=== PATIENT | female | born 1945 | race Caucasian/White ===

== ENCOUNTER 2019-10-04 14:22 | Emergency (ER) | payer MEDICARE, SELFPAY ==
[2019-10-04] VITALS (8 sets, daily range): BP systolic 122–192; BP diastolic 57–73; PULSE 60–63; RESP 14–18; TEMP 36.5; O2SAT 91–100
--- NOTE | ~2019-10-04 | CT_ITS ---
EXAMINATION: CT brain wo con EXAM DATE: 10/04/2019 16:02 INDICATION: Syncope, dizziness. TECHNIQUE: Spiral CT of the head was performed without contrast. Axial, coronal and sagittal images were reviewed. The dose-length product (DLP) for this examination was 605.33 mGy-cm. The exposure w as tailored according to patient size, and iterative reconstruction (ASIR) was used as additional dos e reduction technique. Comparison is made to prior examination from 03/20/2019. FINDINGS: There is no acute intraparenchymal hemorrhage. No evidence of intraparenchymal brain mass lesion. No evidence of acute infarction. Please note that initial head CT has limited sensitivity f or small or acute infarctions. There is mild periventricular and subcortical hypodensity, nonspecific but probably related to small vessel ischemic disease. There is mild prominence of the sulci and v entricles related to cerebral atrophy. There is intracranial carotid arteriosclerosis. There are n o extra-axial collections. There is no mass effect or midline shift. Patient has had bilateral ocul ar lens surgery. Soft tissue is unremarkable. The visualized sinuses and mastoid air cells are well aerated. IMPRESSION: 1. No acute intracranial findings. 2. Chronic age related findings. Reviewed, dictated and finalized at location B. IUM LIQUOR MAKER
--- NOTE | ~2019-10-04 | XR_ITS ---
XR chest 1V portable 10/04/2019 15:28 Indication: Syncope Procedure: AP portable chest Comparison: 03/20/2019 Findings: Cardiomegaly. There is atherosclerosis. No focal air space disease, pulmonary edema, pleura l effusion or suspected pneumothorax. Impression: 1: No acute cardiopulmonary disease. Reviewed, dictated and finalized at location A. OMER SOLUTIONS COORDINATOR Impression: 1: No acute cardiopulmonary disease.
--- NOTE | 2019-10-04 14:43 | ECG_ITS ---
Measurements Intervals [place] Rate: 59 P: 61 [place]: 196 QRS: 39 QRSD: 105 T: 52 QT: 455 QTc: 451 Interpretive Statements SINUS BRADYCARDIA BORDERLINE ST ABNORMALITY- LATERAL LEADS BASELINE WANDER- AVL, AVF BORDERLINE ECG Electronically Signed On 10-04-2019 18:58:45 THERAPEUTIC RECREATION LEADER by Noman Gillis D.O.
--- NOTE | 2019-10-04 14:47 | ED.SYNCOPE ---
HPI - Syncope General Chief Complaint: Syncope Stated Complaint: ambulance Source: patient, family and EMS Mode of arrival: ambulatory Limitations: no limitations History of Present Illness HPI narrative: 73-year-old female presents with syncopal episode were was witnessed by her and members of the veterinary clinic that time where she was at that occurred earlier this afternoon apparently she was standing felt faint and sat down and slumped over according to her for 2 minutes, with some no loss of bowel or bladder function no seizure activity no tongue biting. Had a similar episode back in March, has a history of carotid artery stenosis and has been seeing a vascular surgeon at [facility], according to patient of vascular surgeons states that the carotid surgery would be of high risk. Currently there is no chest pain no fever chills no shortness of breath no abdominal pain and no headaches no blurry vision, patient states she is mildly nauseated with no vomiting no abdominal pain no diarrhea constipation. Patient also has a history of coronary artery disease hyperlipidemia, hypertension. MD complaint: loss of consciousness Onset (ago): minute(s) Duration of episode: 2 -: minutes(s) Prodromal symptoms: none and nausea/vomiting Witnessed: Yes - by Bystander Context: at rest Injuries sustained associated with event: none Current symptoms: nausea Related Data Home Medications Medication Instructions Recorded Confirmed aspirin 81 mg tablet,delayed 81 mg PO DAILY 07/26/19 10/04/19 release biotin 10,000 mcg capsule 10,000 mcg PO DAILY cap 07/26/19 10/04/19 cetirizine 10 mg tablet 5 mg PO DAILY PRN 07/26/19 10/04/19 indomethacin 25 mg capsule 25 mg PO TID PRN cap 07/26/19 10/04/19 Allergies Allergy/AdvReac Type Severity Reaction Status Date / Time naproxen Allergy Intermediate Hives Verified 08/17/19 15:46 NSAIDS (Non-Steroidal Allergy Intermediate hives Verified 08/17/19 15:46 Anti-Inflamma Penicillins Allergy Intermediate Hives Verified 08/17/19 15:46 indomethacin Allergy Unknown Nausea Verified 08/17/19 15:46 Sulfa (Sulfonamide Allergy Unknown Hives Verified 08/17/19 15:46 Antibiotics) Sulfonamides Allergy Intermediate Uncoded 08/17/19 15:46 Review of Systems Review of Systems: All systems reviewed & are unremarkable except as noted in HPI and below PMFSH Past Medical History Medical History Aortic valve regurgitation CAD (coronary artery disease) DM2 (diabetes mellitus, type 2) Hypercholesterolemia Hypertension Mitral valve regurgitation Surgical History Surgical History History of appendectomy Family History Family History Mother Heart disease Father Hypertension Other Cerebrovascular accident Family history of arthritis Family history of gout Family history of heart disease in male family member before age 55 Social History Social History Smoking status: Former smoker Tobacco type: cigarettes Additional smoking assessment comments: 30 pack-year history Alcohol intake: current Substance use: never Additional living arrangements comments: . 1 child. 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
[2019-10-04 14:52] LABS: Glucose Point of Care 117 (65-105)
[2019-10-04] MEDS: SODIUM CHLORIDE 0.9% IV 500 ML 999 ML IV CONT (14:55)
[2019-10-04 15:06] LABS: Basophils Absolute Auto 0.03 K/mm3 (0.00-0.10); Basophils Percent Auto 0.4 % (0.0-1.0); Eosinophils Absolute Auto 0.14 K/mm3 (0.02-0.50); Hematocrit 38.1 % (35.0-42.0); Hemoglobin 13.1 g/dL (11.7-13.8); Immature Granulocyte Absolute 0.02 K/mm3 (0.00-0.00); Immature Granulocyte Percent A 0.3 % (0.0-0.0); Lymphocytes Absolute Auto 1.72 K/mm3 (1.10-4.50); Lymphocytes Percent Auto 24.7 % (18.0-42.0); Mean Corpuscular HGB Conc 34.4 g/dL (32.0-36.0); Mean Corpuscular Hemoglobin 31.9 pg (27.0-31.0); Mean Corpuscular Volume 92.7 fL (78.0-102.0); Monocytes Absolute Auto 0.62 K/mm3 (0.10-0.90); Monocytes Percent Auto 8.9 % (2.0-11.0); Neutrophils Absolute Auto 4.4 K/mm3 (1.7-7.2); Neutrophils Percent Auto 63.7 % (50.0-70.0); Platelet Count Result 227 K/mm3 (150-420); Red Blood Count 4.11 M/mm3 (4.20-5.40); Red Cell Distribution Width 13.3 % (11.6-14.4)
[2019-10-04 15:23] LABS: Alanine Aminotransferase 27 U/L (14-59); Albumin Level 3.7 g/dL (3.4-5.0); Alkaline Phosphatase 71 U/L (46-116); Anion Gap 12.1 mmol/L (7-16); Aspartate Amino Transferase 17 U/L (15-37); Bilirubin,Total 0.3 mg/dL (0.00-1.00); Blood Urea Nitrogen 29 mg/dL (7-18); Calcium 9.2 mg/dL (8.5-10.1); Carbon Dioxide 28 mmol/L (21-32); Chloride 106 mmol/L (98-108); Estimated CRCL calculation 49 ml/min; Estimated Glomerular Filt Rate 51; Glucose 113 mg/dL (70-99); Magnesium 2.3 mg/dL (1.8-2.4); Osmolality Calculated 300 mOsm/kg (285-295); Potassium 4.1 mmol/L (3.5-5.1); Sodium 142 mmol/L (136-145); Total Protein 6.8 g/dL (6.4-8.2); Troponin I < 0.02 ng/mL (0.00-0.056)
[2019-10-04 15:26] LABS: Lactic Acid Reflex 1.1 mmol/L (0.4-2.0)
[2019-10-04 16:09] LABS: Add Urine Microscopic? NO; Appearance Urine Clear (Clear); Bilirubin Urine Negative (Negative); Blood Urine Negative (Negative); Color Urine Yellow (Yellow); Glucose Urine UA Negative (Negative); Ketones Urine Negative (Negative); Leukocyte Esterase Ur Negative LEU/UL (Negative); Nitrate Urine Negative (Negative); Protein Urine Negative (Negative); Specific Grav Ur 1.025 (1.010-1.020); Urobilinogen Urine 0.2 mg/dL (0.2-1.0)
[2019-10-04] MEDS: AMLODIPINE BESYLATE 5 MG TABLET PO (16:52)
== END 2019-10-04 17:03 | disposition home or self-care (01) ==
PROVIDERS: Emergency Provider Emergency Medicine; PCP Family Medicine
DX: R55 Syncope and collapse (principal); I25.10 Atherosclerotic heart disease of native coronary artery without angina pectoris; E11.9 Type 2 diabetes mellitus without complications; E78.00 Pure hypercholesterolemia, unspecified; I10 Essential (primary) hypertension; Z87.891 Personal history of nicotine dependence
CPT/HCPCS: 36415; 70450; 71045; 80053; 81003; 82948; 83605; 83735; 83880; 84484; 85025; 93005; 96360; 99283; 99284; A9270; J7040

== ENCOUNTER 2019-10-10 14:06 | Emergency (ER) | payer MEDICARE, SELFPAY ==
[2019-10-10 14:22] VITALS: BP 156/87; PULSE 60; RESP 20; TEMP 36.5; O2SAT 97
--- NOTE | 2019-10-10 14:48 | ECG_ITS ---
Measurements Intervals [place] Rate: 60 P: 63 IN: 194 QRS: 41 QRSD: 105 T: 39 QT: 434 QTc: 434 Interpretive Statements SINUS RHYTHM BORDERLINE ST ABNORMALITY- INF/LAT LEADS BORDERLINE ECG Electronically Signed On 10-10-2019 15:25:48 INSURANCE APPRAISER by Noman Gillis D.O.
--- NOTE | 2019-10-10 15:02 | ED.GENADULT ---
HPI - General Adult General Chief complaint: Dizziness Stated complaint: ambulance Time Seen by Provider: 10/10/19 14:15 Source: patient, family and EMS Mode of arrival: EMS Limitations: clinical condition History of Present Illness HPI narrative: Suma is a very pleasant 73-year-old female patient. She presents to the emergency room by ambulance from of home. 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 She does not call it dizziness. She calls it just a strange feeling, just lightheaded. She did not pass out but she laid down on the floor. She apparently laid there for about 45 minutes. The then called EMS and she was brought here. She denies any headache. There is no feeling of the room spinning around. She had been seen here on October 04, 2019 for a syncopal episode. At that time she had a CT scan Off the head done which was negative for any acute problems. she had a chest x-ray which did not show any acute cardiopulmonary disease. An electrocardiogram did not show any acute changes. Done has history of hypertension. She is on ramipril 10 mg daily. She is also on hydrochlorothiazide 25 mg daily. She is on aspirin 81 mg daily and Plavix 75 med. She has history of type 2 diabetes mellitus hypercholesterolemia, hypertension, mitral valve regurgitation and coronary artery disease. She states that she sees Dr. Antoine, commissary helper at [facility] this is her 3rd similar episode of lightheadedness. The 1st 1 was in March of last year. She had a one-month Holter evaluation. Apparently nothing was found on the Holter. She also saw a neurologist at [facility]. She states that she has an appointment to see the neurologist this week Thursday . She has an appointment to see the commissary helper Dr. Antoine tomorrow. She also states that she has history of vascular problems including both carotid arteries which she states are 65% narrowed. She also has no palpable pulse in the right radial artery and from her history, it is possible that she may have some subclavian problems also. She has seen a vascular surgeon at [facility]. She has had carotid ultrasounds at [place]. She apparently also has had an echocardiogram, not here. We looked red [place] records also and could not find any report of an echocardiogram. She says that before the 2nd episode of dizziness, she had called Dr. Giron, vascular surgeon and was told to call his office and make an appointment to see him in 6 weeks. She also tells me that about 2 or 3 years ago, she had coronary angiogram done at [facility]. While they were doing it, she had a stroke on the table. She did recover from the stroke with no significant residuals. She also states that no significant coronary artery disease was noted. However, on the chart there is a diagnosis of CAD. Suma is a former smoker. She quit 15 years ago. Prior to this she smoked 1 pack a day for 25 years. Suma denies any headache, chest pain, shortness of breath, abdominal pain, nausea or vomiting. She has no leg edema. There has been no significant change in her weight over the past 1 year. After about 30 minutes in the emergency room, Suma is feeling spontaneously better. She is not lightheaded anymore. MD complaint: lightheadedness Onset (ago): hour(s) ( 2 hours ago) Location: head ( see HPI narrative) Exacerbating factors: none Associated symptoms: other ( Please see HPI narrative) Treatments prior to arrival: none Related Data Home Medications Medication Instructions Recorded Confirmed aspirin 81 mg tablet,delayed 81 mg PO DAILY 07/26/19 10/10/19 release biotin 10,000 mcg capsule 10,000 mcg PO DAILY cap 07/26/19 10/10/19 cetirizine 10 mg tablet 5 mg PO DAILY PRN 07/26/19 10/10/19 indomethacin 25 mg capsule 25 mg PO TID PRN cap 07/26/19 10/10/19 Allergies Allergy/AdvReac Type Severity Reaction Status Date / Time naproxen Allergy Int
--- NOTE | 2019-10-10 15:03 | PC.NURSE ---
Call placed to Dr Zachary Giron, vascular surgeon, . Spoke with Dr Giron's nurse who provided exchange number and name of solutions specialist physician to contact.
[2019-10-10 15:07] LABS: Basophils Absolute Auto 0.02 K/mm3 (0.00-0.10); Basophils Percent Auto 0.3 % (0.0-1.0); Eosinophils Absolute Auto 0.06 K/mm3 (0.02-0.50); Eosinophils Percent Auto 0.8 % (1.0-6.0); Hematocrit 39.1 % (35.0-42.0); Hemoglobin 13.4 g/dL (11.7-13.8); Immature Granulocyte Absolute 0.03 K/mm3 (0.00-0.00); Immature Granulocyte Percent A 0.4 % (0.0-0.0); Lymphocytes Absolute Auto 1.44 K/mm3 (1.10-4.50); Lymphocytes Percent Auto 20.2 % (18.0-42.0); Mean Corpuscular HGB Conc 34.3 g/dL (32.0-36.0); Mean Corpuscular Volume 93.3 fL (78.0-102.0); Mean Platelet Volume 9.3 fl (9.2-11.8); Monocytes Absolute Auto 0.46 K/mm3 (0.10-0.90); Monocytes Percent Auto 6.5 % (2.0-11.0); Neutrophils Absolute Auto 5.1 K/mm3 (1.7-7.2); Neutrophils Percent Auto 71.8 % (50.0-70.0); Platelet Count Result 216 K/mm3 (150-420); Red Blood Count 4.19 M/mm3 (4.20-5.40); Red Cell Distribution Width 13.4 % (11.6-14.4); White Blood Count 7.1 K/mm3 (4.8-10.8)
--- NOTE | 2019-10-10 15:07 | PC.NURSE ---
Call placed to Dr Giron's exchange at [phone]. Dr Marc is the staff radiation therapist physician who will be calling back.
[2019-10-10 15:18] VITALS: BP 157/56; PULSE 61; RESP 20; O2SAT 98
[2019-10-10 15:30] LABS: Alanine Aminotransferase 25 U/L (14-59); Albumin Level 3.9 g/dL (3.4-5.0); Alkaline Phosphatase 78 U/L (46-116); Anion Gap 16.1 mmol/L (7-16); Aspartate Amino Transferase 17 U/L (15-37); Bilirubin,Total 0.4 mg/dL (0.00-1.00); Blood Urea Nitrogen 27 mg/dL (7-18); Calcium 9.4 mg/dL (8.5-10.1); Carbon Dioxide 26 mmol/L (21-32); Chloride 103 mmol/L (98-108); Creatine Kinase 64 U/L (26-192); Estimated CRCL calculation 48 ml/min; Estimated Glomerular Filt Rate 47; Glucose 187 mg/dL (70-99); Osmolality Calculated 302 mOsm/kg (285-295); Potassium 4.1 mmol/L (3.5-5.1); Sodium 141 mmol/L (136-145); Total Protein 6.9 g/dL (6.4-8.2)
--- NOTE | 2019-10-10 15:30 | PC.NURSE ---
Dr Marc returned call at this time.
[2019-10-10 15:32] LABS: Troponin I < 0.02 ng/mL (0.00-0.056)
--- NOTE | 2019-10-10 15:35 | PC.NURSE ---
Unable to palpate R radial pulse and R brachial pulse. Both R radial and R brachial pulses detected by doppler.
--- NOTE | 2019-10-10 15:40 | PC.NURSE ---
Dr Venegas spoke with Dr Galvin, ERP at [facility]. Pt accepted at this time as ER to ER transfer.
--- NOTE | 2019-10-10 15:42 | PC.NURSE ---
Pt made aware of plan discussed by Dr Venegas and Dr Marc, vasular surgeon, for transfer to [facility] ER for further eval. Pt states she does not want to go to [place] because she does not want surgery at this time. Dr Venegas made aware.
--- NOTE | 2019-10-10 15:47 | PC.NURSE ---
Dr Venegas at bedside.
[2019-10-10 16:00] VITALS: BP 192/66; PULSE 60; RESP 20; O2SAT 96
--- NOTE | 2019-10-10 16:10 | PC.NURSE ---
[facility] contacted for transport of pt to [facility]. Unable to accept transport at this time. Will contact another EMS service.
--- NOTE | 2019-10-10 16:24 | PC.NURSE ---
[facility] called for transport to [facility].
[2019-10-10 16:46] VITALS: BP 183/77; PULSE 61; RESP 20; O2SAT 98
== END 2019-10-10 17:00 | disposition short-term general hospital (02) ==
PROVIDERS: Emergency Provider Surgery
DX: R42 Dizziness and giddiness (principal); I77.89 Other specified disorders of arteries and arterioles; I73.9 Peripheral vascular disease, unspecified; I10 Essential (primary) hypertension; I25.10 Atherosclerotic heart disease of native coronary artery without angina pectoris; Z86.73 Personal history of transient ischemic attack (TIA), and cerebral infarction without residual deficits; E11.9 Type 2 diabetes mellitus without complications; E78.00 Pure hypercholesterolemia, unspecified; Z87.891 Personal history of nicotine dependence
CPT/HCPCS: 36415; 80053; 82550; 82553; 84484; 85025; 93005; 99285

== ENCOUNTER 2019-10-17 14:33 | Emergency (ER) | payer MEDICARE, SELFPAY ==
[2019-10-17] VITALS (9 sets, daily range): BP systolic 133–195; BP diastolic 55–70; PULSE 48–74; RESP 11–16; TEMP 36.1–36.6; O2SAT 92–100
--- NOTE | 2019-10-17 15:26 | ECG_ITS ---
Measurements Intervals [place] Rate: 49 P: 55 [place]: 182 QRS: 23 QRSD: 106 T: 47 QT: 511 QTc: 465 Interpretive Statements SINUS BRADYCARDIA BORDERLINE ST ABNORMALITY- INF/LAT LEADS PROLONGED QT INTERVAL ABNORMAL ECG Electronically Signed On 10-17-2019 15:46:08 POLICE JUSTICE by Noman Gillis D.O.
--- NOTE | 2019-10-17 15:38 | ED.SYNCOPE ---
HPI - Syncope General Chief Complaint: Syncope Stated Complaint: AMB Time Seen by Provider: 10/17/19 15:05 Source: patient and other (Dr Oropeza) Mode of arrival: EMS History of Present Illness HPI narrative: Suma is a 73-year-old female patient. She was at the office of . she apparently passed out while she was being examined. She was laid on the floor and after a few minutes she became responsive and started talking. She was then transferred to the emergency room by ambulance from the office. Suma has had this problem for quite some time. Her vascular surgeon is at [facility]. She was recently sent to [facility]. She has a right subclavian steal syndrome. Surgery is being planned for this but apparently patient has been postponing this. She denies any chest pain. She denies any shortness of breath. When she came to the emergency room, she was talking to us. Her vital signs were stable. Her blood pressure is 174/66 mmHg. Her pulse is 48 per minute. MD complaint: loss of consciousness and other ( syncope) -: minutes(s) ( 2 minutes) Description of event: other ( passed out and apparently start breathing for 30 to 40 seconds) Prodromal symptoms: none Witnessed: Yes - by Other ( was in a doctor's office, being examined) Context: at rest and other ( see HPI narrative) Injuries sustained associated with event: none Current symptoms: other ( denies chest pain. Denies shortness of breath. Denies nausea or vomiting. No abdominal pain.) History: previous syncopal episode and other ( Vascular problems, see HPI narrative) Treatments prior to arrival: none Related Data Home Medications Medication Instructions Recorded Confirmed aspirin 81 mg tablet,delayed 81 mg PO DAILY 07/26/19 10/17/19 release biotin 10,000 mcg capsule 10,000 mcg PO DAILY cap 07/26/19 10/17/19 cetirizine 10 mg tablet 5 mg PO DAILY PRN 07/26/19 10/17/19 indomethacin 25 mg capsule 25 mg PO TID PRN cap 07/26/19 10/17/19 atenolol 50 mg tablet 50 mg PO DAILY tablet 10/17/19 10/17/19 cetirizine 10 mg capsule 10 mg PO DAILY cap 10/17/19 10/17/19 clopidogrel 75 mg tablet 75 mg PO DAILY 10/17/19 10/17/19 diphenhydramine 25 1 tablet PO Q6H 10/17/19 10/17/19 mg-acetaminophen 500 mg tablet doxycycline hyclate 50 mg capsule 50 mg PO BID cap 10/17/19 10/17/19 ondansetron HCl 4 mg tablet 4 mg PO Q8H 10/17/19 10/17/19 sennosides 8.6 mg capsule 8.6 mg PO BID 10/17/19 10/17/19 Allergies Allergy/AdvReac Type Severity Reaction Status Date / Time coffee (Coffea arabica) Allergy Severe syncope Verified 10/17/19 13:56 naproxen Allergy Intermediate Hives Verified 10/17/19 13:34 NSAIDS (Non-Steroidal Allergy Intermediate hives Verified 10/17/19 13:34 Anti-Inflamma Penicillins Allergy Intermediate Hives Verified 10/17/19 13:34 indomethacin Allergy Unknown Nausea Verified 10/17/19 13:34 Sulfa (Sulfonamide Allergy Unknown Hives Verified 10/17/19 13:34 Antibiotics) Sulfonamides Allergy Intermediate unknown Uncoded 10/17/19 13:34 Review of Systems Review of Systems: All systems reviewed & are unremarkable except as noted in HPI and below Constitutional: Constitutional: Reports as per HPI, Reports no additional constitutional complaints, Denies chills and Denies fever(s) Eyes: Eyes: Reports as per HPI and Reports no additional eye complaints ENT: Reports system reviewed and no additional complaints, except as documented, Denies dysphagia, Denies vertigo, Reports dizziness and Denies sore throat Cardiovascular: Cardiovascular: Reports as per HPI, Reports no additional cardiovascular complaints, Denies chest pain and Denies radiating jaw, neck or arm pain Respiratory: Respiratory: Reports as per HPI, Reports no additional respiratory complaints, Denies dyspnea and Denies wheezing Gastrointestinal: Gastrointestinal: Reports as per HPI, Reports no additional gastrointestinal complaints, Denies abdominal pain, Denies nausea and Denies v
--- NOTE | 2019-10-17 15:47 | PC.NURSE ---
PTS VASCULAR SURGEON, DR. TRUJILLO, PAGED AT [phone] PER ERP REQUEST. AWAITING CALL BACK
[2019-10-17 16:10] LABS: Basophils Absolute Auto 0.02 K/mm3 (0.00-0.10); Basophils Percent Auto 0.3 % (0.0-1.0); Eosinophils Absolute Auto 0.07 K/mm3 (0.02-0.50); Eosinophils Percent Auto 1.2 % (1.0-6.0); Hematocrit 37.6 % (35.0-42.0); Hemoglobin 12.9 g/dL (11.7-13.8); Immature Granulocyte Absolute 0.01 K/mm3 (0.00-0.00); Immature Granulocyte Percent A 0.2 % (0.0-0.0); Lymphocytes Absolute Auto 1.53 K/mm3 (1.10-4.50); Lymphocytes Percent Auto 26.2 % (18.0-42.0); Mean Corpuscular HGB Conc 34.3 g/dL (32.0-36.0); Mean Corpuscular Hemoglobin 31.5 pg (27.0-31.0); Mean Corpuscular Volume 91.9 fL (78.0-102.0); Monocytes Absolute Auto 0.55 K/mm3 (0.10-0.90); Monocytes Percent Auto 9.4 % (2.0-11.0); Neutrophils Absolute Auto 3.7 K/mm3 (1.7-7.2); Neutrophils Percent Auto 62.7 % (50.0-70.0); Platelet Count Result 224 K/mm3 (150-420); Red Blood Count 4.09 M/mm3 (4.20-5.40); Red Cell Distribution Width 13.4 % (11.6-14.4); White Blood Count 5.8 K/mm3 (4.8-10.8)
[2019-10-17 16:25] LABS: BNP 43.2 pg/mL (0-100)
--- NOTE | 2019-10-17 16:25 | PC.NURSE ---
DR. TRUJILLO PAGED AGAIN. AWAITING CALL BACK.
[2019-10-17 16:32] LABS: Alanine Aminotransferase 28 U/L (14-59); Albumin Level 3.8 g/dL (3.4-5.0); Alkaline Phosphatase 65 U/L (46-116); Anion Gap 11.6 mmol/L (7-16); Aspartate Amino Transferase 21 U/L (15-37); Bilirubin,Total 0.4 mg/dL (0.00-1.00); Blood Urea Nitrogen 19 mg/dL (7-18); Calcium 8.8 mg/dL (8.5-10.1); Carbon Dioxide 28 mmol/L (21-32); Chloride 102 mmol/L (98-108); Creatine Kinase 72 U/L (26-192); Estimated CRCL calculation 55 ml/min; Estimated Glomerular Filt Rate 55; Glucose 144 mg/dL (70-99); Magnesium 2.4 mg/dL (1.8-2.4); Osmolality Calculated 291 mOsm/kg (285-295); Potassium 3.6 mmol/L (3.5-5.1); Sodium 138 mmol/L (136-145); Thyroid Stimulating Hormone 2.52 uIU/mL (0.36-3.74); Total Protein 7.1 g/dL (6.4-8.2)
[2019-10-17 16:33] LABS: Troponin I < 0.02 ng/mL (0.00-0.056)
[2019-10-17 16:47] LABS: Partial Thromboplastin Time 25.9 SEC (22.3-31.6); Prothrombin Time 10.5 Seconds (9.64-11.0)
--- NOTE | 2019-10-17 17:01 | PC.NURSE ---
RN SPOKE WITH JOB COOMBS RN FROM [facility] AT THIS TIME
--- NOTE | 2019-10-17 18:01 | PC.NURSE ---
RN CALLED [facility] TRANSFER LINE FOR UPDATE ON BED STATUS, RN SPOKE WITH DEBBY WHO STATES IT WILL BE SEVERAL MORE HOURS BEFORE A BED IS PROVIDED. ERP NOTIFIED. ER HOLD ORDERS PROVIDED. REQUESTED AN ER HOLD BED FROM ELSA ELLSWORTH AT 1807, ROOM 206 PROVIDED.
--- NOTE | 2019-10-17 18:24 | PC.NURSE ---
TELEPHONE REPORT PROVIDED TO ELSA, ELECTRICAL/INSTRUMENT TECHNICIAN, FOR ER HOLD STATUS. ELSA AGREES THAT ALL PROPER ORDERS HAVE BEEN ENTERED BY ERP. ELSA REQUESTING RN WAIT 10 MINUTES BEFORE BRINGING THE PATIENT UP TO ROOM 206 TO ALLOW HER TO GET THE ROOM PREPPED.
--- NOTE | 2019-10-17 18:43 | PC.NURSE ---
PT TAKEN UP TO ROOM 206 BY WHEELCHAIR AT [id number]
[2019-10-17] MEDS: ACETAMINOPHEN 500 MG TABLET 1000 MG PO (21:14)
[2019-10-17] MEDS: buPROPion HCL XL (24 HR) 150 MG TABCR PO (21:41)
--- NOTE | 2019-10-17 22:30 | PC.NURSE ---
Bed available at [facility] for patient. Patient and her hsuband aware. Report called to [place] at [facility]. Dr. Dietz will be accepting patient. [facility] notified for tranfer.
--- NOTE | 2019-10-17 22:53 | PC.NURSE ---
Patient transported by [facility] to [place]. senior occupational therapist time at [id number]
== END 2019-10-17 22:46 | disposition short-term general hospital (02) ==
PROVIDERS: Emergency Provider Surgery; PCP Family Medicine
DX: G45.8 Other transient cerebral ischemic attacks and related syndromes (principal); R55 Syncope and collapse; I77.9 Disorder of arteries and arterioles, unspecified; Z87.891 Personal history of nicotine dependence; I25.10 Atherosclerotic heart disease of native coronary artery without angina pectoris; E11.9 Type 2 diabetes mellitus without complications; E78.00 Pure hypercholesterolemia, unspecified; I10 Essential (primary) hypertension
CPT/HCPCS: 36415; 80053; 82550; 82553; 83735; 83880; 84443; 84484; 85025; 85610; 85730; 93005; 99285; A9270

== ENCOUNTER 2019-11-26 11:50 | Emergency (ER) | payer MEDICARE, SELFPAY ==
[2019-11-26 12:00] VITALS: BP 138/70; PULSE 75; RESP 20; TEMP 36.7; O2SAT 99
[2019-11-26 12:09] LABS: Add Urine Microscopic? YES; Appearance Urine Sl Cloudy (Clear); Bilirubin Urine Negative (Negative); Blood Urine 2+ (Negative); Color Urine Yellow (Yellow); Glucose Urine UA Negative (Negative); Ketones Urine Negative (Negative); Leukocyte Esterase Ur 2+ LEU/UL (Negative); Nitrate Urine Negative (Negative); Protein Urine Negative (Negative); Urobilinogen Urine 0.2 mg/dL (0.2-1.0); pH Urine 6.5 (5.0-8.0)
[2019-11-26] MEDS: SODIUM CHLORIDE 0.9% IV 1,000 ML 999 ML IV CONT (12:14)
[2019-11-26 12:15] LABS: Bacteria Urine 1+ /hpf; Squamous Epithelial Cell Urine Few /hpf (Few); WBC Urine 21-30 /hpf (0-3)
[2019-11-26 12:44] LABS: Basophils Absolute Auto 0.02 K/mm3 (0.00-0.10); Basophils Percent Auto 0.3 % (0.0-1.0); Eosinophils Absolute Auto 0.06 K/mm3 (0.02-0.50); Hematocrit 30.4 % (35.0-42.0); Hemoglobin 9.7 g/dL (11.7-13.8); Immature Granulocyte Absolute 0.02 K/mm3 (0.00-0.00); Immature Granulocyte Percent A 0.3 % (0.0-0.0); Lymphocytes Absolute Auto 1.28 K/mm3 (1.10-4.50); Lymphocytes Percent Auto 21.5 % (18.0-42.0); Mean Corpuscular HGB Conc 31.9 g/dL (32.0-36.0); Mean Corpuscular Hemoglobin 30.1 pg (27.0-31.0); Mean Corpuscular Volume 94.4 fL (78.0-102.0); Mean Platelet Volume 8.9 fl (9.2-11.8); Monocytes Absolute Auto 0.54 K/mm3 (0.10-0.90); Monocytes Percent Auto 9.1 % (2.0-11.0); Neutrophils Percent Auto 67.8 % (50.0-70.0); Platelet Count Result 317 K/mm3 (150-420); Red Blood Count 3.22 M/mm3 (4.20-5.40); Red Cell Distribution Width 14.2 % (11.6-14.4)
[2019-11-26 13:00] LABS: Alanine Aminotransferase 11 U/L (14-59); Albumin Level 2.8 g/dL (3.4-5.0); Alkaline Phosphatase 61 U/L (46-116); Anion Gap 13.4 mmol/L (7-16); Aspartate Amino Transferase 11 U/L (15-37); Bilirubin,Total 0.2 mg/dL (0.00-1.00); Blood Urea Nitrogen 20 mg/dL (7-18); Calcium 8.7 mg/dL (8.5-10.1); Carbon Dioxide 26 mmol/L (21-32); Chloride 106 mmol/L (98-108); Estimated Glomerular Filt Rate 60; Glucose 95 mg/dL (70-99); Lipase 199 U/L (73-393); Osmolality Calculated 296 mOsm/kg (285-295); Potassium 3.4 mmol/L (3.5-5.1); Sodium 142 mmol/L (136-145); Total Protein 5.8 g/dL (6.4-8.2)
--- NOTE | 2019-11-26 13:05 | ED.GENADULT ---
HPI - General Adult General Chief complaint: Urogenital-Female Stated complaint: pain when urinating, urinating frequently History of Present Illness HPI narrative: Suma is a 73-year-old woman with a complex past medical history that presented to the emergency department with dysuria, urinary frequency and low back pain. She reports that starting this morning she had pain with urination, she is going more frequently and had low back pain that was worse than usual. She also admits to chills and nausea but denies fevers, vomiting, constipation, chest pain shortness of lightheadedness. Related Data Home Medications Medication Instructions Recorded Confirmed aspirin 81 mg tablet,delayed 81 mg PO DAILY 07/26/19 11/26/19 release biotin 10,000 mcg capsule 10,000 mcg PO DAILY cap 07/26/19 11/26/19 indomethacin 25 mg capsule 25 mg PO TID PRN cap 07/26/19 11/26/19 cetirizine 10 mg capsule 10 mg PO DAILY cap 10/17/19 11/26/19 diphenhydramine 25 1 tablet PO Q6H 10/17/19 11/26/19 mg-acetaminophen 500 mg tablet sennosides 8.6 mg capsule 8.6 mg PO BID 10/17/19 11/26/19 acetaminophen 500 mg capsule 1,000 mg PO Q6H PRN cap 11/11/19 11/26/19 amlodipine 10 mg tablet 10 mg PO DAILY 11/11/19 11/26/19 bisacodyl 10 mg rectal suppository 10 mg RECTAL DAILY PRN 11/11/19 11/26/19 carvedilol 25 mg tablet 25 mg PO Q12H 11/11/19 11/26/19 lisinopril 10 mg tablet 10 mg PO DAILY 11/11/19 11/26/19 oxycodone 5 mg tablet 5 mg PO Q4H PRN 11/11/19 11/26/19 polyethylene glycol 3350 17 17 gm PO DAILY 11/11/19 11/26/19 gram/dose oral powder Allergies Allergy/AdvReac Type Severity Reaction Status Date / Time coffee (Coffea arabica) Allergy Severe syncope Verified 11/11/19 06:59 naproxen Allergy Intermediate Hives Verified 11/11/19 06:59 NSAIDS (Non-Steroidal Allergy Intermediate hives Verified 11/11/19 06:59 Anti-Inflamma Penicillins Allergy Intermediate Hives Verified 11/11/19 06:59 indomethacin Allergy Unknown Nausea Verified 11/11/19 06:59 Sulfa (Sulfonamide Allergy Unknown Hives Verified 11/11/19 06:59 Antibiotics) Sulfonamides Allergy Intermediate unknown Uncoded 10/17/19 13:34 Review of Systems Constitutional: Constitutional: Reports as per HPI Eyes: Eyes: Reports no additional eye complaints ENT: Reports system reviewed and no additional complaints, except as documented Respiratory: Respiratory: Reports no additional respiratory complaints Gastrointestinal: Gastrointestinal: Reports no additional gastrointestinal complaints Genitourinary: Genitourinary: Reports as per HPI Musculoskeletal: Musculoskeletal: Reports no additional musculoskeletal complaints Integumentary/Breasts: Skin/Breast: Reports system reviewed and no additional complaints, except as docu Neurologic: Reports system reviewed and no additional complaints, except as documented Psychiatric: Psychiatric: Reports no additional psychiatric complaints Endocrine: Endocrine: Reports no additional endocrine complaints Hematologic/Lymphatic: Hematologic/Lymphatic: Reports no additional hematologic/lymphatic complaints Allergic/Immunologic: Allergic/Immunologic: Reports no additional allergic/immunologic complaints [facility] Past Medical History Medical History Aortic valve regurgitation CAD (coronary artery disease) Carotid disease, bilateral CVA (cerebral vascular accident) DM2 (diabetes mellitus, type 2) Hypercholesterolemia Hypertension Mitral valve regurgitation Peripheral vascular disease Surgical History Surgical History History of appendectomy History of carpal tunnel surgery History of cataract surgery Family History Family History Mother Heart disease Father Hypertension Other Cerebrovascular accident Family history of arthritis Family history of gout
[2019-11-26 13:21] VITALS: BP 124/55; PULSE 62; O2SAT 99
== END 2019-11-26 13:22 | disposition home or self-care (01) ==
PROVIDERS: Emergency Provider Family Medicine; PCP Family Medicine
DX: N39.0 Urinary tract infection, site not specified (principal); I25.10 Atherosclerotic heart disease of native coronary artery without angina pectoris; E11.9 Type 2 diabetes mellitus without complications; E78.00 Pure hypercholesterolemia, unspecified; I10 Essential (primary) hypertension; Z87.891 Personal history of nicotine dependence
CPT/HCPCS: 36415; 80053; 81001; 83690; 85025; 87077; 87086; 87088; 87186; 96365; 99283; 99284; J0696; J7030

== ENCOUNTER 2019-11-29 16:05 | Emergency (ER) | payer MEDICARE, SELFPAY ==
[2019-11-29] VITALS (16 sets, daily range): BP systolic 126–151; BP diastolic 51–74; PULSE 68–91; RESP 14–20; TEMP 36.6–36.8; O2SAT 97–100
--- NOTE | ~2019-11-29 | CT_ITS ---
EXAMINATION: CT abdomen pelvis w con DATE: 11/29/2019 18:24 INDICATION: Abdominal pain. TECHNIQUE: Computed tomography (CT) of the abdomen and pelvis was performed with 100 mL Omnipaque 350 intravenous contrast. Automated exposure control and iterative reconstruction technique were employe d. The dose-length product was 865.75 mGy-cm. COMPARISON: CT abdomen and pelvis 07/31/2009 FINDINGS: The visualized portions of the lung bases demonstrate mild atelectasis. No pleural effusion . Cardiomegaly is noted. There are coronary artery calcifications. No pericardial effusion. Median st ernotomy wires are noted. There is a 6 mm cyst in the liver. The gallbladder, spleen, pancreas, adren al glands, and right kidney are normal. There is a 9 mm cyst in left kidney. There is cortical thinni ng of left kidney. There is a 4 mm stone in left kidney. There is liquid stool in the colon suggestiv e of diarrhea. There is diverticulosis of the colon without evidence of diverticulitis. In the termin al ileum, there is wall thickening with small lumen caliber spanning 10 cm, new from 07/31/09. The sm all bowel is fluid-filled and distended proximal to this area, consistent with partial small bowel ob struction. There are changes of appendectomy. There is a small sliding hernia. There are no pathologi jagjit enlarged lymph nodes. There is trace ascites. There is calcified atherosclerosis of the aorta a nd many of the other arteries. There is moderate stenosis of the bilateral renal artery origins. Ther e is severe stenosis of proximal left superficial femoral artery. There is severe lumbar spondylosis and moderate thoracic spondylosis. IMPRESSION: 1. Terminal ileitis with partial small bowel obstruction. The differential diagnosis includes infecti on and Crohn disease. Reviewed, dictated and finalized at location A. IMPRESSION: 1. Terminal ileitis with partial small bowel obstruction. The differential diag nosis includes infection and Crohn disease.
--- NOTE | 2019-11-29 16:15 | ED.ABDPAIN ---
HPI - Abdominal Pain General Chief Complaint: Abdominal Pain <Hudson Gomez DO - Last Filed: 11/30/19 18:05> Stated Complaint: possible bowel obstruction <Hudson Gomez DO - Last Filed: 11/30/19 18:05> Time Seen by Provider: 11/29/19 16:13 <Hudson Gomez DO - Last Filed: 11/30/19 18:05> Source: patient <Hudson Gomez DO - Last Filed: 11/30/19 18:05> Mode of arrival: ambulatory <Hudson Gomez - Last Filed: 11/30/19 18:05> Limitations: no limitations <Hudson Gomez - Last Filed: 11/30/19 18:05> History of Present Illness HPI narrative: A 73 y/o female presents to the ED with c/o diffuse ABD pain. Pt states that the ABD pain started 1.5 weeks ago in her lower ABD, but is now painful all over. She notes that the ABD pain is constant, and is alleviated with Oxycodone. Pt reports ABD bloating, N/V, and constipation, but denies fever. Her last BM was on 11/26/19 and she had 2 episodes of emesis today. She is currently on Keflex for a UTI. <Hudson Gomez DO - Last Filed: 11/30/19 18:05> MD elicited complaint: abdominal pain (diffuse) <Hudson Gomez DO - Last Filed: 11/30/19 18:05> Onset (ago): week(s) (1.5) <Hudson Gomez DO - Last Filed: 11/30/19 18:05> Pain Consistency: constant <Hudson Gomez DO - Last Filed: 11/30/19 18:05> Location: diffuse <Hudson Gomez DO - Last Filed: 11/30/19 18:05> Relieving factors: medication (Oxycodone) <Hudson Gomez DO - Last Filed: 11/30/19 18:05> Associated symptoms: nausea, vomiting, constipation and other (ABD bloating) <Hudson Gomez DO - Last Filed: 11/30/19 18:05> Related Data Home Medications: Home Medications Medication Instructions Recorded Confirmed cetirizine 10 mg capsule 10 mg PO DAILY cap 10/17/19 11/26/19 sennosides 8.6 mg capsule 8.6 mg PO BID 10/17/19 11/26/19 acetaminophen 500 mg capsule 1,000 mg PO Q6H PRN cap 11/11/19 11/26/19 bisacodyl 10 mg rectal suppository 10 mg RECTAL DAILY PRN 11/11/19 11/26/19 polyethylene glycol 3350 17 17 gm PO DAILY 11/11/19 11/26/19 gram/dose oral powder doxycycline monohydrate 50 mg PO BID 11/29/19 ondansetron HCl 4 mg PO Q8H PRN 11/29/19 oxycodone 5 mg PO Q4H PRN 11/29/19 <Hudson Gomez DO - Last Filed: 11/30/19 18:05> Allergies/Adverse Reactions: Allergies Allergy/AdvReac Type Severity Reaction Status Date / Time coffee (Coffea arabica) Allergy Severe syncope Verified 11/29/19 13:32 naproxen Allergy Intermediate Hives Verified 11/29/19 13:32 NSAIDS (Non-Steroidal Allergy Intermediate hives Verified 11/29/19 13:32 Anti-Inflamma Penicillins Allergy Intermediate Hives Verified 11/29/19 13:32 indomethacin Allergy Unknown Nausea Verified 11/29/19 13:32 Sulfa (Sulfonamide Allergy Unknown Hives Verified 11/29/19 13:32 Antibiotics) Sulfonamides Allergy Intermediate unknown Uncoded 10/17/19 13:34 <Hudson Gomez DO - Last Filed: 11/30/19 18:05> Review of Systems Review of Systems: All systems reviewed & are unremarkable except as noted in HPI and below <Hudson Gomez DO - Last Filed: 11/30/19 18:05> Constitutional: Constitutional: Denies fever(s) <DO Rajan Pinon Last Filed: 11/30/19 18:05> Gastrointestinal: Gastrointestinal: Reports abdominal pain (diffuse), Reports bloating, Reports constipation, Reports nausea and Reports vomiting <DO Rajan Pinon Last Filed: 11/30/19 18:05> PMFSH Past Medical History Medical History: Medical History (Updated 11/30/19 @ 00:00 by Background Daemon) Aortic valve regurgitation Arthritis CAD (coronary artery disease) Carotid disease, bilateral Chronic back pain CVA (cerebral vascular accident) DDD (degenerative disc disease) Depression DM2 (diabetes mellitus, type 2) Hypercholesterolemia Hypertension Mitral valve regurgitation Osteoporosis Peripheral vascular disease Peripheral vascular
[2019-11-29] MEDS: SODIUM CHLORIDE 0.9% IV 1,000 ML 999 ML IV CONT (16:33)
[2019-11-29 16:53] LABS: Add Urine Microscopic? YES; Appearance Urine Cloudy (Clear); Bilirubin Urine Negative (Negative); Blood Urine Negative (Negative); Color Urine Amber (Yellow); Glucose Urine UA Negative (Negative); Hyaline Casts Urine 15-19 /lpf; Ketones Urine Trace mg/dL (Negative); Leukocyte Esterase Ur Negative LEU/UL (Negative); Mucus Urine Heavy /lpf; Nitrate Urine Negative (Negative); Protein Urine 2+ mg/dL (Negative); Specific Grav Ur 1.031 (1.001-1.035); Squamous Epithelial Cell Urine Few /hpf (Few); Urobilinogen Urine Negative mg/dL (<2.0); WBC Urine 21-30 /hpf
--- NOTE | 2019-11-29 17:01 | PC.NURSE ---
Called phlebotomy to draw labs after multiple unsuccessful attempts.
[2019-11-29 17:57] LABS: Basophils Percent Auto 0.2 % (0.2-1.2); Eosinophils Percent Auto 0.1 % (0-4.4); Hematocrit 39.5 % (37.0-47.0); Hemoglobin 12.6 g/dL (12.0-15.0); Immature Granulocyte Absolute 0.07 K/mm3 (0.00-0.031); Immature Granulocyte Percent A 0.5 % (0-0.5); Mean Corpuscular HGB Conc 31.9 g/dl (32-36); Mean Corpuscular Hemoglobin 29.7 pg (26-34); Mean Corpuscular Volume 93.2 fl (80-100); Mean Platelet Volume 9.2 fl (7.4-10.4); Monocytes Absolute Auto 0.5 K/mm3 (0.1-0.6); Monocytes Percent Auto 3.7 % (2.6-8.5); Neutrophils Absolute Auto 11.4 K/mm3 (1.3-6.7); Neutrophils Percent Auto 88.5 % (45.5-73.1); Platelet Count Result 396 k/mm3 (150-375); Red Blood Count 4.24 M/mm3 (4.2-5.4); Red Cell Distribution Width 14.2 % (11.5-14.5); White Blood Count 12.9 K/mm3 (4.5-10.0)
--- NOTE | 2019-11-29 17:57 | PC.NURSE ---
Pt up to commode twice to have large bowel movement.
[2019-11-29 18:08] LABS: INR 0.9; Prothrombin Time 12.2 Seconds (11.1-14.7)
[2019-11-29 18:10] LABS: Lactic Acid Reflex 1.6 mmol/L (0.7-2.1)
[2019-11-29 18:11] LABS: Alanine Aminotransferase 11 U/L (4-35); Albumin Level 4.1 g/dL (3.5-5.1); Alkaline Phosphatase 84 U/L (38-126); Aspartate Amino Transferase 19 U/L (14-36); Bilirubin,Total 0.5 mg/dL (0.2-1.3); Blood Urea Nitrogen 18 mg/dL (7-17); Calcium 9.4 mg/dL (8.4-10.2); Carbon Dioxide 28 mmol/L (22-30); Chloride 101 mmol/L (98-107); Estimated CRCL calculation 62 ml/min; Estimated Glomerular Filt Rate > 60; Glucose 131 mg/dL (65-105); Potassium 3.5 mmol/L (3.4-5.0); Sodium 139 mmol/L (137-145)
== END 2019-11-29 20:27 | disposition home or self-care (01) ==
PROVIDERS: Emergency Medicine; Emergency Provider Emergency Medicine; PCP Family Medicine
DX: K56.600 Partial intestinal obstruction, unspecified as to cause (principal); K50.00 Crohn's disease of small intestine without complications; N39.0 Urinary tract infection, site not specified; I25.10 Atherosclerotic heart disease of native coronary artery without angina pectoris; Z86.73 Personal history of transient ischemic attack (TIA), and cerebral infarction without residual deficits; E11.51 Type 2 diabetes mellitus with diabetic peripheral angiopathy without gangrene; M81.0 Age-related osteoporosis without current pathological fracture; I34.0 Nonrheumatic mitral (valve) insufficiency; Z87.891 Personal history of nicotine dependence; Z98.49 Cataract extraction status, unspecified eye
CPT/HCPCS: 36415; 51701; 74177; 80053; 81001; 83605; 85025; 85610; 85730; 87086; 96360; 96361; 99284; J7030; Q9967

== ENCOUNTER 2019-12-10 01:44 | Inpatient (IN) | payer MEDICARE, SELFPAY ==
[2019-12-10] VITALS (11 sets, daily range): BP systolic 121–151; BP diastolic 50–70; PULSE 68–103; RESP 16–20; TEMP 36.1–37.1; O2SAT 90–100; BMI 28.5
--- NOTE | ~2019-12-10 | CT_ITS ---
EXAMINATION: CT abdomen pelvis w con DATE: 12/10/2019 03:30 INDICATION: Lower abdominal pain, vomiting TECHNIQUE: Computed tomography (CT) of the abdomen and pelvis was performed with 100 cc Omnipaque 350 intravenous contrast. Automated exposure control and iterative reconstruction technique were employe d. Exam dose: 928.06 mGy-cm total exam DLP. COMPARISON: 11/29/2019 CT abdomen pelvis FINDINGS: There is mild discoid atelectasis or scarring at the left lung base. The lung bases are oth erwise clear of infiltrate or consolidation. Cardiomegaly. No pericardial or pleural effusion. Small sliding hiatal hernia. No hepatic, splenic, pancreatic, and adrenal or suspicious renal space-occupying mass lesion is evide nt. There are a couple of small left renal probable cysts. Approximately 5 mm nonobstructing left nikole al calculus. No urinary tract calculus or hydroureteronephrosis is noted otherwise. There is extensive calcification of the abdominal aorta and bilateral prominent Doxil renal artery ca lcifications. No abdominal aortic aneurysm. Prominent calcification of the iliac and femoral arteries . No intraperitoneal or retroperitoneal or pelvic mass lesion or adenopathy or ascites. The urinary osmel dder, uterus and adnexal areas are unremarkable. There are fluid levels of the small and large bowel. Again noted is prominent thickening of the wall of the distal ileum, with mucosal enhancement. The small bowel is mildly dilated proximal to this are a. Status post sternotomy. No suspicious osteolytic or osteoblastic lesions. No evidence of sacroiliitis. Degenerative disease noted particularly at L2-3, with mild retrolisthesis, and at L4-5 and L5-S1. IMPRESSION: Terminal ileitis evidence by wall thickening and mucosal enhancement, with proximal smal l bowel dilatation and air-fluid levels. Findings suggest Crohn's disease. Infectious etiology is ano ther consideration. Air-fluid levels of the colon, without obstruction Nonobstructing upper pole left renal calculus Small left renal cysts Cardiomegaly; status post sternotomy Small sliding hiatal hernia Reviewed, dictated and finalized at [facility]. Reviewed, dictated and finalized at location [facility]. IMPRESSION: Terminal ileitis evidence by wall thickening and mucosal enhanceme nt, with proximal small bowel dilatation and air-fluid levels. Findings suggest Crohn's disease. Infectious etiology is another consideration. Air-fluid levels of the colon, without obstruction Nonobstructing upper pole left renal calculus Small left renal cysts Cardiomegaly; status post sternotomy Small sliding hiatal hernia
--- NOTE | ~2019-12-10 | XR_ITS ---
XR UGI water soluble w sbs DATE: 12/10/2019 11:02 INDICATION: Abdominal pain, vomiting TECHNIQUE: Single contrast upper gastrointestinal series and small bowel follow-through 4.2 minutes fluoroscopy time DAP 149.98 44 images COMPARISON: 12/10/2019 CT abdomen pelvis FINDINGS: No stricture, intraluminal mass lesion or ulceration of the stomach or duodenum. The proxi mal small bowel mucosal pattern is normal. There is relative narrowing of the terminal ileum, consistent with the same finding noted on the 2019 CT abdomen examination. There is proximal moderate small bowel dilatation. Differential diagnosi s includes Crohn's disease and infection. IMPRESSION: Persistent narrowing of the terminal ileum with moderate proximal small bowel dilatation Reviewed, dictated and finalized at [facility]. Reviewed, dictated and finalized at [facility]. IMPRESSION: Persistent narrowing of the terminal ileum with moderate proximal s mall bowel dilatation
--- NOTE | ~2019-12-10 | XR_ITS ---
EXAMINATION: XR abdomen NG/feed tube insert EXAM DATE: 12/13/2019 08:58 INDICATION: Nasogastric tube placement. TECHNIQUE: Frontal projection(s) of the abdomen for interpretation. Comparison is made to prior exami nation from 12/11/2019. FINDINGS: Feeding tube is overlying expected position with side port at the gastric body and tip at the gastric antrum level. Sternotomy wires. Nonobstructive bowel gas pattern. There is no organomegal y. Mild in IMPRESSION: Feeding tube in position. Reviewed, dictated and finalized at [facility]. IMPRESSION: Feeding tube in position.
--- NOTE | ~2019-12-10 | XR_ITS ---
XR abdomen obstructive series DATE: 12/11/2019 08:29 INDICATION: Small bowel obstruction. Terminal ileitis. TECHNIQUE: Portable supine and upright AP views COMPARISON: 12/10/2019 water-soluble upper gastrointestinal series with small bowel follow-through 12/10/2019 CT abdomen pelvis FINDINGS: There are persistent gas distended small bowel segments. The radiopaque contrast material h as cleared the small bowel and is now in the colon and rectum. There is radiopaque contrast material within the urinary bladder. No intraperitoneal free air is evident. Status post sternotomy. IMPRESSION: Persistent gaseous distention of the small bowel, consistent with partial small bowel obs truction versus adynamic ileus Reviewed, dictated and finalized at [facility]. Reviewed, dictated and finalized at [facility]. IMPRESSION: Persistent gaseous distention of the small bowel, consistent with p artial small bowel obstruction versus adynamic ileus
--- NOTE | ~2019-12-10 | XR_ITS ---
XR abdomen NG/feed tube insert DATE: 12/10/2019 04:55 INDICATION: NG tube placement TECHNIQUE: Portable upright AP views on 12/10/2019 at 0451 hours COMPARISON: None FINDINGS: A nasogastric tube is noted in the body of the stomach, the proximal port approximately 4 c m distal to the diaphragmatic hiatus. Multiple small bowel air-fluid levels are noted. There is bilateral renal excretion of contrast material. Status post sternotomy. IMPRESSION: NG tube in body of stomach Reviewed, dictated and finalized at [facility]. Reviewed, dictated and finalized at [facility]. IMPRESSION: NG tube in body of stomach
--- NOTE | 2019-12-10 01:52 | ED.ABDPAIN ---
HPI - Abdominal Pain General Chief Complaint: Abdominal Pain Stated Complaint: abd pain Time Seen by Provider: 12/10/19 01:46 Source: patient and RN notes reviewed Mode of arrival: other Limitations: no limitations History of Present Illness HPI narrative: Pt is a 73 y/o female who presents to the ED with c/o intermittent lower abdominal pain that radiates to her lower back that began last week, but has been more constant since yesterday at 1 PM. Pt states that she came to [facility] last week and was fully evaluated. Pt states that she has been taking laxatives for the past couple of days and she states that she has been struggling with constipation for the past couple of weeks. Pt states that yesterday she only had a few crackers and a meal replacement drink. Pt also reports nausea, vomiting, bloating, distended, poor appetite, and resolved dysuria, but denies a fever and hematuria. MD elicited complaint: abdominal pain Onset (ago): week(s) (1) Pain Consistency: constant (yesterday) and intermittent (for the past week) Location: other (lower abdomen) Relieving factors: nothing Associated symptoms: nausea, vomiting, constipation, dysuria (resolved) and other (bloating, distentention, poor appetite) Related Data Home Medications Medication Instructions Recorded Confirmed cetirizine 10 mg capsule 10 mg PO DAILY cap 10/17/19 11/26/19 sennosides 8.6 mg capsule 8.6 mg PO BID 10/17/19 11/26/19 acetaminophen 500 mg capsule 1,000 mg PO Q6H PRN cap 11/11/19 11/26/19 bisacodyl 10 mg rectal suppository 10 mg RECTAL DAILY PRN 11/11/19 11/26/19 polyethylene glycol 3350 17 17 gm PO DAILY 11/11/19 11/26/19 gram/dose oral powder doxycycline monohydrate 50 mg PO BID 11/29/19 ondansetron HCl 4 mg PO Q8H PRN 11/29/19 oxycodone 5 mg PO Q4H PRN 11/29/19 Allergies Allergy/AdvReac Type Severity Reaction Status Date / Time coffee (Coffea arabica) Allergy Severe syncope Verified 12/10/19 01:52 naproxen Allergy Intermediate Hives Verified 12/10/19 01:52 NSAIDS (Non-Steroidal Allergy Intermediate hives Verified 12/10/19 01:52 Anti-Inflamma Penicillins Allergy Intermediate Hives Verified 12/10/19 01:52 indomethacin Allergy Unknown Nausea Verified 12/10/19 01:52 Sulfa (Sulfonamide Allergy Unknown Hives Verified 12/10/19 01:52 Antibiotics) Sulfonamides Allergy Intermediate unknown Uncoded 12/10/19 01:52 Review of Systems Review of Systems: Narrative: CONSTITUTIONAL: Reports poor appetite. Denies fever. GASTROINTESTINAL: Reports nausea, lower abdominal pain, constipation, vomiting, bloating, distention, GENITOURINARY: Reports resolved dysuria. Denies hematuria. All systems reviewed & are unremarkable except as noted in HPI and below PMFSH Past Medical History Medical History (Updated 12/10/19 @ 04:41 by Shanthi Birmingham MD) Aortic valve regurgitation Arthritis CAD (coronary artery disease) Carotid disease, bilateral Chronic back pain CVA (cerebral vascular accident) DDD (degenerative disc disease) Depression DM2 (diabetes mellitus, type 2) Hypercholesterolemia Hypertension Mitral valve regurgitation Osteoporosis Peripheral vascular disease Peripheral vascular disease of extremity Post-menopausal Seasonal allergies Subclavian steal syndrome Trigger finger Urinary tract infection Surgical History Surgical History (Updated 11/29/19 @ 16:24 by Elena Lux) H/O local excision of skin lesion History of appendectomy History of carpal tunnel surgery History of cataract surgery History of tubal ligation Social History Social History (Updated 11/29/19 @ 16:25 by Elena Lux) Smoking status: Former smoker Tobacco type: cigarettes Second hand tobacco smoke exposure: Yes Smoking end date: 09/07/96 Additional smoking assessment comments: 30 pack-year history Alcohol intake: current Substance use: never Additional living arrangements comments: . 1 child. Additional occupation/education comments: Prior
[2019-12-10 02:32] LABS: Basophils Absolute Auto 0.1 K/mm3 (0.0-0.1); Basophils Percent Auto 0.3 % (0.2-1.2); Eosinophils Absolute Auto 0.1 K/mm3 (0-0.3); Eosinophils Percent Auto 0.3 % (0-4.4); Hematocrit 39.4 % (37.0-47.0); Hemoglobin 12.8 g/dL (12.0-15.0); Immature Granulocyte Absolute 0.08 K/mm3 (0.00-0.031); Immature Granulocyte Percent A 0.5 % (0-0.5); Lymphocytes Absolute Auto 1.33 K/mm3 (0.9-3.2); Lymphocytes Percent Auto 7.9 % (18.3-44.2); Mean Corpuscular HGB Conc 32.5 g/dl (32-36); Mean Corpuscular Volume 89.3 fl (80-100); Mean Platelet Volume 9.7 fl (7.4-10.4); Monocytes Absolute Auto 0.8 K/mm3 (0.1-0.6); Monocytes Percent Auto 4.6 % (2.6-8.5); Neutrophils Absolute Auto 14.6 K/mm3 (1.3-6.7); Neutrophils Percent Auto 86.4 % (45.5-73.1); Platelet Count Result 385 k/mm3 (150-375); Red Blood Count 4.41 M/mm3 (4.2-5.4); Red Cell Distribution Width 13.8 % (11.5-14.5); White Blood Count 16.9 K/mm3 (4.5-10.0)
[2019-12-10] MEDS: SODIUM CHLORIDE 0.9% IV 1,000 ML 999 ML IV CONT ×2 (02:33→04:21)
[2019-12-10] MEDS: MORPHINE SULFATE 4 MG/ML INJ IV PUSH ×2 (02:36→15:29)
[2019-12-10] MEDS: ONDANSETRON INJ 4 MG/2 ML VIAL IV PUSH ×2 (02:36→12:50)
[2019-12-10 02:43] LABS: Alanine Aminotransferase 12 U/L (4-35); Albumin Level 4.2 g/dL (3.5-5.1); Alkaline Phosphatase 75 U/L (38-126); Aspartate Amino Transferase 21 U/L (14-36); Bilirubin,Total 0.4 mg/dL (0.2-1.3); Blood Urea Nitrogen 15 mg/dL (7-17); Calcium 10.1 mg/dL (8.4-10.2); Carbon Dioxide 24 mmol/L (22-30); Chloride 101 mmol/L (98-107); Estimated CRCL calculation 73 ml/min; Estimated Glomerular Filt Rate > 60; Glucose 163 mg/dL (65-105); Lipase 127 U/L (23-300); Potassium 3.1 mmol/L (3.4-5.0); Sodium 135 mmol/L (137-145)
[2019-12-10] MEDS: LACTATED RINGERS 1,000 ML 125 ML IV CONT (06:35)
[2019-12-10 07:22] LABS: Add Urine Microscopic? YES; Appearance Urine Clear (Clear); Bacteria Urine Trace /hpf; Bilirubin Urine Negative (Negative); Blood Urine Negative (Negative); Color Urine Yellow (Yellow); Glucose Urine UA Negative (Negative); Ketones Urine Trace mg/dL (Negative); Leukocyte Esterase Ur Negative LEU/UL (Negative); Mucus Urine Few /lpf; Nitrate Urine Negative (Negative); Protein Urine Negative (Negative); Squamous Epithelial Cell Urine Rare /hpf (Few); Urobilinogen Urine Negative mg/dL (<2.0)
[2019-12-10 07:31] LABS: Specific Grav Ur > 1.060 (1.001-1.035)
--- NOTE | 2019-12-10 08:16 | WPDGICN ---
Assessment and Plan Assessment and plan (1) Constipation: Code(s): K59.00 - Constipation, unspecified Status: Acute Assessment and Plan: Much of her symptom complex may be attributed to constipation. Plan is to resume laxatives on a regular basis after small bowel series is obtained. As soon as we can be certain small-bowel obstruction is resolved (2) Abnormal CT scan: Code(s): R93.89 - Abnormal findings on diagnostic imaging of other specified body structures Status: Acute Assessment and Plan: CT scan suggest possible terminal ileitis. There is a question of skip lesions seen on CT scan. Clinically her abdomen is benign at the present time. I would recommend small bowel series to further define the abnormality suggested on CT scan. Further recommendations pending review small bowel series would hope. Hopefully we can obtain this today. (3) Subclavian steal syndrome: Code(s): G45.8 - Other transient cerebral ischemic attacks and related syndromes Status: Acute Assessment and Plan: Patient is status post vascular bypass. 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 She had status post vascular bypass of [facility] in October. GI Consult Note Consult date/time: 12/10/19 08:16 HPI: Suma Saenz is a 73 year old female seen in evaluation at the request of the emergency room. I am asked to see the patient for possible partial small-bowel obstruction. Patient has also longstanding history of constipation. She reports that symptoms worsened after aortic bypass surgery of [facility] in October of 2019. 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 Since that time she has had various abdominal complaints. She reports low bilateral abdominal discomfort prompting her to go to the emergency room 1 week ago. This resolved after a bowel movement. In the emergency room a CT scan suggested terminal ileitis. Patient had recurrent abdominal pain last evening causing her to return to the emergency room. CT scan suggested skip lesions in the small bowel. Patient states she has had minimal bowel movements over the last week. She reports narrowed stools and diarrhea stools as well. She denies any bleeding. She denies weight loss. Her family history is noncontributory. Previous surgery includes an appendectomy at [facility] 9 years ago. Review of Systems Review of Systems: All systems reviewed & are unremarkable except as noted in HPI and below PMFSH Past Medical History Medical History Aortic valve regurgitation Arthritis CAD (coronary artery disease) Carotid disease, bilateral Chronic back pain CVA (cerebral vascular accident) DDD (degenerative disc disease) Depression DM2 (diabetes mellitus, type 2) Hypercholesterolemia Hypertension Mitral valve regurgitation Osteoporosis Peripheral vascular disease Peripheral vascular disease of extremity Post-menopausal Seasonal allergies Subclavian steal syndrome Trigger finger Urinary tract infection Surgical History Surgical History H/O local excision of skin lesion History of appendectomy History of carpal tunnel surgery History of cataract surgery History of tubal ligation Social History Social History Smoking status: Former smoker Tobacco type: cigarettes Second hand tobacco smoke exposure: Yes Smoking end date: 09/07/96 Additional smoking assessment comments: 30 pack-year history Alcohol intake: former Substance use: former Substance use type: marijuana Additional living arrangements comments: . 1 child. 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
--- NOTE | 2019-12-10 08:44 | PM.CNGS ---
Assessment and Plan Assessment and plan (1) Small bowel obstruction: Code(s): K56.609 - Unspecified intestinal obstruction, unspecified as to partial versus complete obstruction Status: Acute Assessment and Plan: likely secondary to inflammatory bowel dz, will need GI workup, exam benign at this time, will clamp NG and poss remove later today, ?benefit from steroids and abx, CT reviewed and c/w terminal ileitis, will cont serial exams at this point, await SBS History of Present Illness Consult details Consult date: 12/10/19 Reason for consult: abdominal pain Narrative: Pt is a 73 y/o F presenting to ED c/o severe lower abd pain c assoc N/V. Pt reports she was in ED a few wks ago c similar sx but resolved and was dc'd home. Pt reports cont sx of intermittent, colicky lower abd pain. Pt reports poor appetitie. Pt reports intermittent N/V. Pt denies any f/c but does describe just not feeling well overall. Pt repports some weakness and fatigue. Review of Systems Constitutional: Constitutional: Reports anorexia, Denies chills, Reports fatigue, Denies headache(s), Reports malaise, Reports poor appetite, Denies weight gain and Denies weight loss Eyes: Eyes: Denies loss of vision ENT: Denies dysphagia, Denies headache(s), Denies hearing loss and Denies sore throat Cardiovascular: Cardiovascular: Denies chest pain, Denies syncope, Denies irregular heart rhythm, Denies leg edema and Denies dyspnea Respiratory: Respiratory: Denies cough and Denies dyspnea Gastrointestinal: Gastrointestinal: Reports abdominal pain, Denies bloating, Reports change in bowel habits, Denies change in stool character, Reports constipation, Denies dysphagia, Denies heartburn, Denies diarrhea, Reports nausea and Reports vomiting Genitourinary: Genitourinary: Denies urinary frequency, Denies dysuria and Denies urinary urgency Musculoskeletal: Musculoskeletal: Denies myalgias, Denies arthralgias and Denies muscle cramps Integumentary/Breasts: Skin/Breast: Denies non-healing lesions and Denies rash Neurologic: Denies syncope, Denies headache(s) and Denies loss of vision Endocrine: Endocrine: Denies change in body appearance and Denies fatigue Hematologic/Lymphatic: Hematologic/Lymphatic: Denies easy bleeding, Denies easy bruising and Denies lymphadenopathy PENDING SALE TO [facility] Past Medical History Medical History (Updated 12/10/19 @ 08:20 by aSmson Gonzalez MD) Aortic valve regurgitation Arthritis CAD (coronary artery disease) Carotid disease, bilateral Chronic back pain CVA (cerebral vascular accident) DDD (degenerative disc disease) Depression DM2 (diabetes mellitus, type 2) Hypercholesterolemia Hypertension Mitral valve regurgitation Osteoporosis Peripheral vascular disease Peripheral vascular disease of extremity Post-menopausal Seasonal allergies Subclavian steal syndrome Trigger finger Urinary tract infection Surgical History Surgical History H/O local excision of skin lesion History of appendectomy History of carpal tunnel surgery History of cataract surgery History of tubal ligation Social History Social History Smoking status: Former smoker Tobacco type: cigarettes Second hand tobacco smoke exposure: Yes Smoking end date: 09/07/96 Additional smoking assessment comments: 30 pack-year history Alcohol intake: former Substance use: former Substance use type: marijuana Additional living arrangements comments: . 1 child. 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
--- NOTE | 2019-12-10 08:54 | PM.IMHP ---
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 The patient states since her surgery October 2019 she has noticed trouble eating any solid foods. When she eats solid food she has increased abdominal pain and cramping and she has only been eating liquids like soup, meal replacements and water. She also reports worsening abdominal pain when she drinks something very cold. She has also had decreased appetite recently. She has also had a longstanding history of constipation in believe she has been constipated recently as well. She reports not having any narcotic pain medications in about 2 weeks. She usually takes senna and MiraLax daily but she has not been taking this recently. She reports prior to arrival she was having some chills and was even get hot but denies any recorded fevers. She denies any chest pain, shortness of breath, cough, rhinorrhea, congestion, lightheadedness, dizziness, syncope, leg swelling, calf pain, or any other symptoms at this time. She reports having 2 urinary tract infections since her surgery in October and she has been having intermittent dysuria and frequent urination for 3 weeks. Currently her abdominal pain is rated 4/10 after receiving morphine recently. She is also feeling nauseous again and had a few episodes of vomiting. She reports having 4-5 bowel movements since arriving to the emergency department and they have been watery, but again she has only been having liquids. Code status: Do not intubate, to the patient and length about her code status and she would not like to be intubated if it comes to that. She tells me that she does have paperwork at home that does state her wishes and her family is aware of her wishes. Power of family law attorney: , Juice Saenz Primary care provider: Perez Alexander Review of Systems Review of Systems: All systems reviewed & are unremarkable except as noted in HPI and below [facility] Past Medical History Medical History Aortic valve regurgitation Arthritis CAD (coronary artery disease) Carotid disease, bilateral Chronic back pain CVA (cerebral vascular accident) DDD (degenerative disc disease) Depression DM2 (diabetes mellitus, type 2) Hypercholesterolemia Hypertension Mitral valve regurgitation Osteoporosis Peripheral vascular disease Peripheral vascular disease of extremity Post-menopausal Seasonal allergies 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 10/21/2019 History of appendectomy 01/2015 History of carpal tunnel surgery History of cataract surgery History of tubal ligation Family History Family History Mother Heart disease Hypertension Father Hypertension Cerebrovascular accident Other Family history of arthritis Family history of gout Family history of heart disease in male family member before age 55 Social History Social History Smoking status: Former smoker Tobacco type: cigarettes Second hand tobacco smoke exposure: Yes Smoking end date: 09/07/96 Additional smoking assessment comments: 30 pack-year history Alcohol intake: current Alcohol use details: Occasional Substance use: former Substance us
[2019-12-10] MEDS: MORPHINE SULFATE 2 MG/ML INJ IV PUSH (12:52)
--- NOTE | 2019-12-10 13:00 | ECG_ITS ---
Measurements Intervals [place] Rate: 79 P: 40 NE: 170 QRS: -6 QRSD: 99 T: 31 QT: 383 QTc: 441 Interpretive Statements SINUS RHYTHM VENTRICULAR PREMATURE COMPLEXES DELAYED PRECORDIAL R/S TRANSITION LEFT VENTRICULAR HYPERTROPHY AND ST-T CHANGE INFERIOR INFARCT, AGE INDETERMINATE BORDERLINE ST-T WAVE ABNORMALITY- LATERAL LEADS BASELINE WANDER- I, II ABNORMAL ECG Electronically Signed On 12-10-2019 14:45:27 CDT by Noman Gillis D.O.
[2019-12-10 13:50] LABS: Potassium 3.5 mmol/L (3.4-5.0)
[2019-12-10] MEDS: metroNIDAZOLE 500 MG/ISO 100ML 500 MG/100 ML BAG 100 MG IVPB ×2 (14:28→20:18)
[2019-12-10] MEDS: ASPIRIN 300 MG SUPPOSITORY RECTAL (16:58)
[2019-12-10] MEDS: ENOXAPARIN 40 MG/0.4 ML SYRINGE SUB-Q (17:00)
[2019-12-10] MEDS: LACTATED RINGERS 1,000 ML 100 ML IV CONT (20:15)
[2019-12-10 22:44] LABS: Glucose Point of Care 104 (65-105)
[2019-12-11] VITALS (10 sets, daily range): BP systolic 126–142; BP diastolic 44–58; PULSE 67–90; RESP 16–18; TEMP 36.1–37; O2SAT 98–99
[2019-12-11] MEDS: metroNIDAZOLE 500 MG/ISO 100ML 500 MG/100 ML BAG 100 MG IVPB ×5 (00:38→23:58)
--- NOTE | 2019-12-11 03:36 | ADMGEN ---
This patient, Suma Saenz, was admitted to 2 Medical Room 242-01. Patient/family oriented to hospital policies and general routines including ID bracelet, bed and alarms, visiting hours, pain management, procedures, bathroom and other care routines, personal items, smoking policy, room service/diet, and visiting hours. Valuables list has been completed. Information on how to activate the Rapid Response Team has been discussed. Patient/Family are encouraged to report perceived risks to care and to ask questions if they do not understand what they are told or what they should do. 12/10/2019 2686
[2019-12-11 05:03] LABS: Basophils Percent Auto 0.3 % (0.2-1.2); Eosinophils Percent Auto 0.4 % (0-4.4); Hematocrit 33.7 % (37.0-47.0); Hemoglobin 10.6 g/dL (12.0-15.0); Immature Granulocyte Absolute 0.02 K/mm3 (0.00-0.031); Immature Granulocyte Percent A 0.3 % (0-0.5); Lymphocytes Absolute Auto 1.75 K/mm3 (0.9-3.2); Lymphocytes Percent Auto 26.2 % (18.3-44.2); Mean Corpuscular HGB Conc 31.5 g/dl (32-36); Mean Corpuscular Hemoglobin 28.8 pg (26-34); Mean Corpuscular Volume 91.6 fl (80-100); Mean Platelet Volume 9.2 fl (7.4-10.4); Monocytes Absolute Auto 0.6 K/mm3 (0.1-0.6); Monocytes Percent Auto 9.4 % (2.6-8.5); Neutrophils Absolute Auto 4.2 K/mm3 (1.3-6.7); Neutrophils Percent Auto 63.4 % (45.5-73.1); Platelet Count Result 294 k/mm3 (150-375); Red Blood Count 3.68 M/mm3 (4.2-5.4); White Blood Count 6.7 K/mm3 (4.5-10.0)
[2019-12-11 05:28] LABS: Blood Urea Nitrogen 17 mg/dL (7-17); Calcium 8.5 mg/dL (8.4-10.2); Carbon Dioxide 26 mmol/L (22-30); Chloride 108 mmol/L (98-107); Estimated CRCL calculation 81 ml/min; Estimated Glomerular Filt Rate > 60; Glucose 100 mg/dL (65-105); Magnesium 1.9 mg/dL (1.6-2.3); Sodium 140 mmol/L (137-145)
[2019-12-11] MEDS: LACTATED RINGERS 1,000 ML 100 ML IV CONT (05:59)
[2019-12-11 06:12] LABS: Glucose Point of Care 104 (65-105)
[2019-12-11 07:17] LABS: Hemoglobin A1C 5.6 % (<5.7)
--- NOTE | 2019-12-11 08:00 | ECG_ITS ---
Measurements Intervals [place] Rate: 85 P: 43 MD: 175 QRS: 5 QRSD: 102 T: 14 QT: 375 QTc: 448 Interpretive Statements SINUS RHYTHM FREQUENT VENTRICULAR PREMATURE COMPLEXES LEFT VENTRICULAR HYPERTROPHY AND ST-T CHANGE CONSIDER INFERIOR INFARCT, AGE INDETERMINATE NONSPECIFIC ST & T-WAVE ABNORMALITY- DIFFUSE LEADS BASELINE WANDER- V3 ABNORMAL ECG Electronically Signed On 12-11-2019 16:29:54 CDT by Noman Gillis D.O.
--- NOTE | 2019-12-11 08:13 | WPDGIPROGNO ---
Progress Note: A&P Additional Plan Patient comfortable this morning. NG tube now out. Patient denies abdominal pain. She has passed some stool. Physical exam reveals abdomen to be soft. Bowel sounds are present. No tenderness noted. No masses noted. She reports discomfort was primarily right low abdomen. Small-bowel series reveals narrowing in terminal ileum.( No skip areas were noted however.) Impression 1. Partial small-bowel obstruction. 2. Terminal ileal narrowing. Infection versus Crohn's disease are in differential. At the present time I would treat for an infection with broad-spectrum antibiotics. Allow liquid diet and advance slowly to a low residue diet. Outpatient colonoscopy will be obtained. Hopefully this can be deferred to after the viral crisis is passed. Anticipate colonoscopy 2 months after discharge. Subjective Date/time seen: 12/11/19 08:13 Objective Data Vital Signs Vital Signs: Vital Signs - 24 hr 12/10/19 14:00 12/10/19 16:00 12/10/19 20:00 Temperature 36.8 C Pulse Rate 87 90 84 Respiratory Rate 19 Blood Pressure 147/63 H Pulse Oximetry 93 12/10/19 22:00 12/10/19 22:32 12/11/19 00:00 Temperature 36.3 C L Pulse Rate 79 68 77 Respiratory Rate 16 Blood Pressure 149/60 H Pulse Oximetry 96 12/11/19 04:00 12/11/19 05:51 Temperature 36.1 C L Pulse Rate 67 73 Respiratory Rate 16 Blood Pressure 142/44 H Pulse Oximetry 99 Intake/Output Intake/Output: Intake & Output 12/08/19 12/09/19 12/10/19 12/11/19 23:59 23:59 23:59 23:59 Intake Total 3850 1200 Output Total 1200 400 Balance 2650 800 Meds/Results Medications: Active Medications Generic Name Dose Route Start Last Admin Trade Name Freq PRN Reason Stop Dose Admin Enoxaparin Sodium 40 mg 12/10/19 18:00 12/10/19 17:00 Lovenox SUB-Q 40 mg QPM REID Administration Hydralazine HCl 10 mg 12/10/19 08:44 Apresoline Hcl Inj IV PUSH Q8H PRN Blood Pressure - High Lactated Ringer's 1,000 mls @ 100 mls/hr 12/10/19 04:50 12/11/19 05:59 Lr - Lactated Ringers Iv IV CONT 100 mls/hr .Q10H REID Administration Acetaminophen 1,000 mg in 100 mls @ 400 mls/hr 12/10/19 08:18 Ofirmev 1,000 Mg Ivpb IVPB 12/11/19 08:19 Q6H PRN Pain Rated 1-3 Levofloxacin/Dextrose 750 mg in 150 mls @ 100 mls/hr 12/10/19 14:00 12/10/19 16:58 Levaquin 750 Mg/D5w 150 Ml IVPB Infused Q24H REID Infusion Metronidazole 500 mg in 100 mls @ 100 mls/hr 12/10/19 13:00 12/11/19 07:16 Flagyl 500 Mg/Iso Soln 100 Ml IVPB Infused Q6H REID Infusion Potassium Chloride 500 mls @ 125 mls/hr 12/11/19 07:36 Kcl 40 Meq/D5w 500 Ml Peripheral IVPB 12/11/19 11:35 ONCE ONE Morphine Sulfate 4 mg 12/10/19 04:48 12/10/19 15:29 Morphine Sulfate Inj IV PUSH 4 mg Q2H PRN Administration Pain Rated 7-10 Morphine Sulfate 2 mg 12/10/19 08:19 12/10/19 12:52 Morphine Sulfate Inj IV PUSH 2 mg Q4H PRN Administration Pain Rated 4-6 Morphine Sulfate 4 mg 12/10/19 08:19 Morphine Sulfate Inj IV PUSH Q4H PRN Pain Rated 7-10 Ondansetron HCl 4 mg 12/10/19 04:48 12/10/19 12:50 Zofran Inj IV PUSH 4 mg Q4H PRN Administration Nausea Promethazine HCl 12.5 mg 12/10/19 13:58 Phenergan Inj IV PUSH Q4H PRN Nausea And Vomiting Radiology Results: ITS Impressions Abdomen/Pelvis CT 12/10/19 10:07 IMPRESSION: Terminal ileitis evidence by wall thickening and mucosal enhancement, with proximal small bowel dilatation and air-fluid levels. Findings suggest Crohn's disease. Infectious etiology is another consideration. Air-fluid levels of the colon, without obstruction Nonobstructing upper pole left renal calculus Small left renal cysts Cardiomegaly; status post sternotomy Small sliding hiatal hernia Upper GI Series 12/10/19 11:20 IMPRESSION: Persistent narrowing of the terminal ileu
--- NOTE | 2019-12-11 09:42 | PM.PNGS ---
Progress Note: A&P Assessment and Plan (1) Terminal ileitis: Code(s): K50.00 - Crohn's disease of small intestine without complications Status: Acute Assessment and Plan: cont abx, exam improved, clears and ADAT to low residue diet (2) Small bowel obstruction: Code(s): K56.609 - Unspecified intestinal obstruction, unspecified as to partial versus complete obstruction Status: Acute Assessment and Plan: UGI reviewed, exam benign, +bowel fxn, ADAT Subjective Subjective Date/Time Seen: 12/11/19 09:42 Interval history: Pt reports some cont mild soreness in lower abd R>L. Pt reports some loose BMs, +flatus. Pt had NG removed yesterday and currently myrna clears. Review of Systems Constitutional: Constitutional: Denies chills, Reports fatigue, Reports lethargy and Reports weakness Cardiovascular: Cardiovascular: Denies chest pain and Denies palpitations Respiratory: Respiratory: Denies dyspnea Gastrointestinal: Gastrointestinal: Reports abdominal pain, Reports diarrhea, Denies nausea and Denies vomiting Exam Const: General: no acute distress Resp: Auscultation: clear to auscultation bilaterally Cardio: Rate: regular rate Rhythm: regular rhythm GI: Auscultation: normal bowel sounds Other: S, sl dist, mild TTP mony LQ R>L Objective Data Vital Signs Vital Signs: Vital Signs - 24 hr 12/10/19 14:00 12/10/19 16:00 12/10/19 20:00 Temperature 36.8 C Pulse Rate 87 90 84 Respiratory Rate 19 Blood Pressure 147/63 H Pulse Oximetry 93 12/10/19 22:00 12/10/19 22:32 12/11/19 00:00 Temperature 36.3 C L Pulse Rate 79 68 77 Respiratory Rate 16 Blood Pressure 149/60 H Pulse Oximetry 96 12/11/19 04:00 12/11/19 05:51 Temperature 36.1 C L Pulse Rate 67 73 Respiratory Rate 16 Blood Pressure 142/44 H Pulse Oximetry 99 Intake/Output Intake/Output: Intake & Output 12/08/19 12/09/19 12/10/19 12/11/19 23:59 23:59 23:59 23:59 Intake Total 3850 1200 Output Total 1200 400 Balance 2650 800 Meds/Results Medications: Active Medications Generic Name Dose Route Start Last Admin Trade Name Freq PRN Reason Stop Dose Admin Enoxaparin Sodium 40 mg 12/10/19 18:00 12/10/19 17:00 Lovenox SUB-Q 40 mg QPM REID Administration Hydralazine HCl 10 mg 12/10/19 08:44 Apresoline Hcl Inj IV PUSH Q8H PRN Blood Pressure - High Lactated Ringer's 1,000 mls @ 100 mls/hr 12/10/19 04:50 12/11/19 05:59 Lr - Lactated Ringers Iv IV CONT 100 mls/hr .Q10H REID Administration Levofloxacin/Dextrose 750 mg in 150 mls @ 100 mls/hr 12/10/19 14:00 12/10/19 16:58 Levaquin 750 Mg/D5w 150 Ml IVPB Infused Q24H REID Infusion Metronidazole 500 mg in 100 mls @ 100 mls/hr 12/10/19 13:00 12/11/19 07:16 Flagyl 500 Mg/Iso Soln 100 Ml IVPB Infused Q6H REID Infusion Potassium Chloride 500 mls @ 125 mls/hr 12/11/19 07:36 12/11/19 08:31 Kcl 40 Meq/D5w 500 Ml Peripheral IVPB 12/11/19 11:35 125 mls/hr ONCE ONE Administration Morphine Sulfate 4 mg 12/10/19 04:48 12/10/19 15:29 Morphine Sulfate Inj IV PUSH 4 mg Q2H PRN Administration Pain Rated 7-10 Morphine Sulfate 2 mg 12/10/19 08:19 12/10/19 12:52 Morphine Sulfate Inj IV PUSH 2 mg Q4H PRN Administration Pain Rated 4-6 Morphine Sulfate 4 mg 12/10/19 08:19 Morphine Sulfate Inj IV PUSH Q4H PRN Pain Rated 7-10 Ondansetron HCl 4 mg 12/10/19 04:48 12/10/19 12:50 Zofran Inj IV PUSH 4 mg Q4H PRN Administration Nausea Promethazine HCl 12.5 mg 12/10/19 13:58 Phenergan Inj IV PUSH Q4H PRN Nausea And Vomiting Radiology Results: ITS Impressions Abdomen/Pelvis CT 12/10/19 10:07 IMPRESSION: Terminal ileitis evidence by wall thickening and mucosal enhancement, with proximal small bowel dilatation and air-fluid levels. Findings suggest Crohn's disease. Infectious etiology is another consideratio
--- NOTE | 2019-12-11 10:37 | PM.IMPN ---
Progress Note: A&P Assessment and Plan (1) Terminal ileitis: Code(s): K50.00 - Crohn's disease of small intestine without complications Status: Acute Assessment and Plan: The patient presented with gradually worsening lower abdominal pain with associated nausea, vomiting, chills On arrival she had leukocytosis with a white blood cell count of 16,900 with a left shift. CT abdomen showed Terminal ileitis evidence by wall thickening and mucosal enhancement, with proximal small bowel dilatation and air-fluid levels. Findings suggest Crohn's disease vs Infectious etiology. Air-fluid levels of the colon, without obstruction. Patient has never been diagnosed with Crohn's before or any abdominal issues. GI was consulted who recommend starting IV antibiotics with IV Levaquin and Flagyl, blood cultures were taken. Today the patient is feeling better. Vitals are stable, leukocytosis has resolved. GI recommends continuing to slowly advance her diet from a clear liquid diet to a low residual diet. He recommends following up with the patient for a colonoscopy in 2 months. Will continue monitoring patient's leukocytosis, vital signs, pain level. (2) Small bowel obstruction: Code(s): K56.609 - Unspecified intestinal obstruction, unspecified as to partial versus complete obstruction Status: Acute Assessment and Plan: The patient's upper GI series showed persistent narrowing of the terminal ileum with moderate proximal small-bowel dilatation. An NG tube was placed in the Emergency department General Surgery was consulted who removed the patient NG tube last night. She is tolerating clear liquid diet well this morning without any issues. Obstructive x-ray series today showed Persistent gaseous distention of the small bowel, consistent with partial small bowel obstruction versus adynamic ileus. Hopefully with IV antibiotics again decrease the inflammation and resolve the patient's partial small-bowel obstruction. Appreciate GI and surgical input on the case. Patient was placed on a clear liquid diet, continue light IV fluid hydration, continue monitoring patient's symptoms (3) Constipation: Code(s): K59.00 - Constipation, unspecified Status: Acute Assessment and Plan: Patient has a long history of constipation and was taking senna and MiraLax in the past. She has not been eating any solid food for over 1 month since her bypass surgery due to abdominal pain. Since being here in the hospital she has had to 4-5 bowel movements which have been soft and watery in nature. This is most likely secondary to x-ray upper GI water soluble testing this morning. GI was consulted he recommended her restarting her stool softeners once discharged (4) Hypokalemia: Code(s): E87.6 - Hypokalemia Status: Acute Assessment and Plan: Potassium was slightly low at 3.1 on arrival Potassium this morning was 3.0 and magnesium was 1.9. Potassium was replenished with IV potassium. Will recheck potassium and magnesium this afternoon and in the morning. 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 She has been on a full-dose aspirin daily postop She is able to tolerate p.o. at this time and we will restart her full-dose aspirin daily Will continue with subcu Lovenox 40 mg for DVT prophylaxis (6) Hypertension: Qualifiers: Hypertension type: essential hypertension Qualified
[2019-12-11] MEDS: lisinopriL 10 MG TABLET PO (11:54)
[2019-12-11] MEDS: ASPIRIN 325 MG TABLET PO (11:54)
[2019-12-11] MEDS: MORPHINE SULFATE 2 MG/ML INJ IV PUSH (11:56)
[2019-12-11 14:47] LABS: Magnesium 1.7 mg/dL (1.6-2.3); Potassium 3.2 mmol/L (3.4-5.0)
[2019-12-11] MEDS: POTASSIUM CHLORIDE 20 MEQ TABLET 40 MEQ PO (16:12)
[2019-12-11] MEDS: ENOXAPARIN 40 MG/0.4 ML SYRINGE SUB-Q (17:44)
[2019-12-11] MEDS: MAGNESIUM SULF 2 GM/WATER 50ML 2 GM/50 ML BAG IVPB (17:44)
[2019-12-11] MEDS: MORPHINE SULFATE 4 MG/ML INJ IV PUSH (17:45)
[2019-12-11] MEDS: carvediloL 25 MG TABLET PO (20:20)
[2019-12-11] MEDS: LACTATED RINGERS 1,000 ML 75 ML IV CONT (20:22)
[2019-12-12] VITALS (11 sets, daily range): BP systolic 127–161; BP diastolic 58–63; PULSE 68–94; RESP 16–20; TEMP 36.1–36.5; O2SAT 97–100
[2019-12-12 05:12] LABS: Hemoglobin 9.3 g/dL (12.0-15.0); Mean Corpuscular Volume 93.5 fl (80-100); Mean Platelet Volume 9.5 fl (7.4-10.4); Platelet Count Result 245 k/mm3 (150-375); Red Blood Count 3.21 M/mm3 (4.2-5.4); Red Cell Distribution Width 14.2 % (11.5-14.5)
[2019-12-12 05:23] LABS: Blood Urea Nitrogen 13 mg/dL (7-17); Calcium 7.7 mg/dL (8.4-10.2); Carbon Dioxide 22 mmol/L (22-30); Chloride 109 mmol/L (98-107); Estimated CRCL calculation 116 ml/min; Estimated Glomerular Filt Rate > 60; Glucose 104 mg/dL (65-105); Magnesium 2.1 mg/dL (1.6-2.3); Potassium 3.6 mmol/L (3.4-5.0); Sodium 135 mmol/L (137-145)
[2019-12-12] MEDS: metroNIDAZOLE 500 MG/ISO 100ML 500 MG/100 ML BAG 100 MG IVPB ×4 (05:27→23:12)
--- NOTE | 2019-12-12 07:12 | WPDGIPROGNO ---
Progress Note: A&P Additional Plan Patient alert and comfortable this morning. Past some liquid stool. She denies fever. Abdominal pain has abated. Physical exam reveals her to be alert. Vital signs stable. Lungs are clear. Heart without murmur. Abdomen is obese. Bowel sounds are present soft nontender with no organomegaly appreciated. Impression 1. Partial small-bowel obstruction. Clinically appears improving. Small-bowel follow-through suggest terminal ileitis. This was present on 2 previous colonoscopies. At present patient will be tree of broad-spectrum antibiotic coverage a colonoscopy is advised to further define the nature of this lesion. Hopefully this can be arranged tomorrow. Subjective Date/time seen: 12/12/19 07:12 Objective Data Vital Signs Vital Signs: Vital Signs - 24 hr 12/11/19 08:00 12/11/19 12:00 12/11/19 14:00 Temperature 37.0 C Pulse Rate 89 90 88 Respiratory Rate 16 Blood Pressure 136/55 L Pulse Oximetry 99 12/11/19 16:00 12/11/19 20:00 12/11/19 20:20 Temperature Pulse Rate 75 78 82 Respiratory Rate Blood Pressure Pulse Oximetry 12/11/19 21:40 12/12/19 00:00 12/12/19 04:00 Temperature 36.1 C L Pulse Rate 82 72 68 Respiratory Rate 18 Blood Pressure 126/58 L Pulse Oximetry 98 12/12/19 05:45 Temperature 36.1 C L Pulse Rate 78 Respiratory Rate 16 Blood Pressure 127/58 L Pulse Oximetry 99 Intake/Output Intake/Output: Intake & Output 12/09/19 12/10/19 12/11/19 12/12/19 23:59 23:59 23:59 23:59 Intake Total 3850 4580 1152 Output Total 1200 400 Balance 2650 4180 1152 Meds/Results Medications: Active Medications Generic Name Dose Route Start Last Admin Trade Name Freq PRN Reason Stop Dose Admin Aspirin 325 mg 12/11/19 10:50 12/11/19 11:54 Aspirin PO 325 mg DAILY REID Administration Bupropion HCl 150 mg 12/11/19 21:00 12/11/19 20:20 Wellbutrin-Sr (12 Hr) PO 150 mg Q12HR REID Administration Carvedilol 25 mg 12/11/19 21:00 12/11/19 20:20 Coreg PO 25 mg Q12HR REID Administration Enoxaparin Sodium 40 mg 12/10/19 18:00 12/11/19 17:44 Lovenox SUB-Q 40 mg QPM REID Administration Hydralazine HCl 10 mg 12/10/19 08:44 Apresoline Hcl Inj IV PUSH Q8H PRN Blood Pressure - High Lactated Ringer's 1,000 mls @ 75 mls/hr 12/10/19 04:50 12/12/19 05:29 Lr - Lactated Ringers Iv IV CONT 75 mls/hr .[id number] REID Infusion Levofloxacin/Dextrose 750 mg in 150 mls @ 100 mls/hr 12/10/19 14:00 12/11/19 17:15 Levaquin 750 Mg/D5w 150 Ml IVPB Infused Q24H REID Infusion Acetaminophen 1,000 mg in 100 mls @ 400 mls/hr 12/11/19 15:01 12/11/19 16:08 Ofirmev 1,000 Mg Ivpb IVPB 12/12/19 15:02 Infused Q6H PRN Infusion Pain Rated 1-3 Metronidazole 500 mg in 100 mls @ 100 mls/hr 12/12/19 00:00 12/12/19 06:27 Flagyl 500 Mg/Iso Soln 100 Ml IVPB Infused Q6HR REID Infusion Lisinopril 10 mg 12/11/19 09:00 12/11/19 11:54 Prinivil PO 10 mg DAILY REID Administration Morphine Sulfate 2 mg 12/10/19 08:19 12/11/19 11:56 Morphine Sulfate Inj IV PUSH 2 mg Q4H PRN Administration Pain Rated 4-6 Morphine Sulfate 4 mg 12/10/19 08:19 12/11/19 17:45 Morphine Sulfate Inj IV PUSH 4 mg Q4H PRN Administration Pain Rated 7-10 Ondansetron HCl 4 mg 12/10/19 04:48 12/10/19 12:50 Zofran Inj IV PUSH 4 mg Q4H PRN Administration Nausea Promethazine HCl 12.5 mg 12/10/19 13:58 Phenergan Inj IV PUSH Q4H PRN Nausea And Vomiting Radiology Results: ITS Impressions Abdomen/Pelvis CT 12/10/19 10:07 IMPRESSION: Terminal ileitis evidence by wall thickening and mucosal enhancement, with proximal small bowel dilatation and air-fluid levels. Findings suggest Crohn's disease. Infectious etiology is another consideration. Air-fluid levels of the colon, without obstruction Nonobstructing upper pole left renal ca
[2019-12-12] MEDS: lisinopriL 10 MG TABLET PO (08:21)
[2019-12-12] MEDS: carvediloL 25 MG TABLET PO ×2 (08:21→20:21)
[2019-12-12] MEDS: ASPIRIN 325 MG TABLET PO (08:22)
--- NOTE | 2019-12-12 09:00 | PM.PNGS ---
Progress Note: A&P Assessment and Plan (1) Terminal ileitis: Code(s): K50.00 - Crohn's disease of small intestine without complications Status: Acute Assessment and Plan: GI planning possible Colonoscopy tomorrow. Continue antibiotics and diet per GI. (2) Small bowel obstruction: Code(s): K56.609 - Unspecified intestinal obstruction, unspecified as to partial versus complete obstruction Status: Acute Assessment and Plan: Seems to be resolving. Bowels are moving and tolerating a liquid diet. Exam remains benign. Advance diet per GI. Additional Plan Discussed plan of care with Dr. Vasquez. Subjective Subjective Date/Time Seen: 12/12/19 08:50 Patient reports: no new complaints, feels better, tolerating liquids well, flatus and bowel movement Interval history: Patient reports feeling well today with no abdominal pain. Reports liquid bowel movements today, +flatus. Denies nausea or vomiting. Reports still bloated but improved since admission. No other complaints at this time. Review of Systems Review of Systems: All systems reviewed & are unremarkable except as noted in HPI and below Exam Const: General: comfortable, no acute distress, alert and awake Orientation/consciousness: patient oriented x3 GI: Inspection: normal to inspection GI Palp: Yes Soft to palpation, Yes Tenderness to palpation present (GI) (mild tenderness in RLQ), No Guarding due to palpation present (GI) and No Rebound tenderness present Auscultation: normal bowel sounds Psych: Mental Status: mental status grossly normal Attitude: cooperative Thought content: Yes Normal thought content present Insight: Good insight present (Psych) Judgement: Good judgement present (Psych) Objective Data Vital Signs Vital Signs: Vital Signs - 24 hr 12/11/19 12:00 12/11/19 14:00 12/11/19 16:00 Temperature 37.0 C Pulse Rate 90 88 75 Respiratory Rate 16 Blood Pressure 136/55 L Pulse Oximetry 99 12/11/19 20:00 12/11/19 20:20 12/11/19 21:40 Temperature 36.1 C L Pulse Rate 78 82 82 Respiratory Rate 18 Blood Pressure 126/58 L Pulse Oximetry 98 12/12/19 00:00 12/12/19 04:00 12/12/19 05:45 Temperature 36.1 C L Pulse Rate 72 68 78 Respiratory Rate 16 Blood Pressure 127/58 L Pulse Oximetry 99 12/12/19 08:21 Temperature Pulse Rate 88 Respiratory Rate Blood Pressure Pulse Oximetry Intake/Output Intake/Output: Intake & Output 12/09/19 12/10/19 12/11/19 12/12/19 23:59 23:59 23:59 23:59 Intake Total 3850 4580 1752 Output Total 1200 400 Balance 2650 4180 1752 Meds/Results Medications: Active Medications Generic Name Dose Route Start Last Admin Trade Name Freq PRN Reason Stop Dose Admin Aspirin 325 mg 12/11/19 10:50 12/12/19 08:22 Aspirin PO 325 mg DAILY REID Administration Bupropion HCl 150 mg 12/11/19 21:00 12/12/19 08:21 Wellbutrin-Sr (12 Hr) PO 150 mg Q12HR REID Administration Carvedilol 25 mg 12/11/19 21:00 12/12/19 08:21 Coreg PO 25 mg Q12HR REID Administration Enoxaparin Sodium 40 mg 12/10/19 18:00 12/11/19 17:44 Lovenox SUB-Q 40 mg QPM REID Administration Hydralazine HCl 10 mg 12/10/19 08:44 Apresoline Hcl Inj IV PUSH Q8H PRN Blood Pressure - High Lactated Ringer's 1,000 mls @ 75 mls/hr 12/10/19 04:50 12/12/19 05:29 Lr - Lactated Ringers Iv IV CONT 75 mls/hr .[id number] REID Infusion Levofloxacin/Dextrose 750 mg in 150 mls @ 100 mls/hr 12/10/19 14:00 12/11/19 17:15 Levaquin 750 Mg/D5w 150 Ml IVPB Infused Q24H REID Infusion Acetaminophen 1,000 mg in 100 mls @ 400 mls/hr 12/11/19 15:01 12/11/19 16:08 Ofirmev 1,000 Mg Ivpb IVPB 12/12/19 15:02 Infused Q6H PRN Infusion Pain Rated 1-3 Metronidazole 500 mg in 100 mls @ 100 mls/hr 12/12/19 00:00 12/12/19 06:27 Flagyl 500 Mg/Iso Soln 100 Ml IVPB Infused Q6HR REID Infusion Lisinopril 10 mg 12/11/19 09:00 12/12/19
[2019-12-12] MEDS: LACTATED RINGERS 1,000 ML 75 ML IV CONT (11:27)
[2019-12-12] MEDS: PEG (High)/E-LYTE SOLN 4,000 ML BTL 4000 ML PO (11:28)
--- NOTE | 2019-12-12 11:42 | PM.IMPN ---
Progress Note: A&P Assessment and Plan (1) Terminal ileitis: Code(s): K50.00 - Crohn's disease of small intestine without complications Status: Acute Assessment and Plan: The patient presented with gradually worsening lower abdominal pain with associated nausea, vomiting, chills On arrival she had leukocytosis with a white blood cell count of 16,900 with a left shift. CT abdomen showed Terminal ileitis evidence by wall thickening and mucosal enhancement, with proximal small bowel dilatation and air-fluid levels. Findings suggest Crohn's disease vs Infectious etiology. Air-fluid levels of the colon, without obstruction. Patient has never been diagnosed with Crohn's before or any abdominal issues. GI was consulted who recommended starting IV antibiotics with IV Levaquin and Flagyl, blood cultures were taken. Dr. Gonzalez ordered a colonoscopy for tomorrow and she will undergo prepping today. Today the patient is feeling better, tolerating clear liquid diet. Vitals are stable, leukocytosis has resolved. Will continue monitoring patient's leukocytosis, vital signs, pain level. (2) Small bowel obstruction: Code(s): K56.609 - Unspecified intestinal obstruction, unspecified as to partial versus complete obstruction Status: Acute Assessment and Plan: The patient's upper GI series showed persistent narrowing of the terminal ileum with moderate proximal small-bowel dilatation. An NG tube was placed in the Emergency department General Surgery was consulted who removed the patient NG tube 12/10/2019 She is tolerating clear liquid diet well this morning without any issues. Obstructive x-ray series today showed Persistent gaseous distention of the small bowel, consistent with partial small bowel obstruction versus adynamic ileus. Hopefully with IV antibiotics again decrease the inflammation and resolve the patient's partial small-bowel obstruction. Today, she is feeling better with eating clear liquid diet. Patient was placed on a clear liquid diet, continue light IV fluid hydration, continue monitoring patient's symptoms (3) Constipation: Code(s): K59.00 - Constipation, unspecified Status: Acute Assessment and Plan: Patient has a long history of constipation and was taking senna and MiraLax in the past. She has not been eating any solid food for over 1 month since her bypass surgery due to abdominal pain. Since being here in the hospital she has had to 4-5 bowel movements which have been soft and watery in nature. This is most likely secondary to x-ray upper GI water soluble testing this morning. GI was consulted he recommended her restarting her stool softeners once discharged (4) Hypokalemia: Code(s): E87.6 - Hypokalemia Status: Acute Assessment and Plan: Potassium was slightly low at 3.1 on arrival Potassium this morning was 3.6, and magnesium was 2.1. Will recheck potassium and magnesium this afternoon and in the morning. 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 She has been on a full-dose aspirin daily post-op She is able to tolerate p.o. at this time and we will restart her full-dose aspirin daily Will continue with subcu Lovenox 40 mg for DVT prophylaxis (6) Hypertension: Qualifiers: Hypertension type: essential hypertension Qualified Code(s): I10 - Essential (primary) hypertension Code(s): I10 - Essential (primar
--- NOTE | 2019-12-12 12:05 | ECG_ITS ---
Measurements Intervals [place] Rate: 70 P: 49 [place]: 164 QRS: 3 QRSD: 102 T: 22 QT: 410 QTc: 444 Interpretive Statements SINUS RHYTHM VOLTAGE CRITERIA FOR LVH BORDERLINE ST ABNORMALITY- LATERAL LEADS BASELINE ARTIFACT- V3, V5-V6 BORDERLINE ECG Electronically Signed On 12-12-2019 13:45:13 CDT by Noman Gillis D.O.
[2019-12-12] MEDS: ENOXAPARIN 40 MG/0.4 ML SYRINGE SUB-Q (17:40)
[2019-12-12] MEDS: MORPHINE SULFATE 2 MG/ML INJ IV PUSH (18:41)
[2019-12-12] MEDS: PROMETHAZINE HCL 25 MG/ML AMPUL 12.5 MG IV PUSH (22:34)
[2019-12-13] VITALS (10 sets, daily range): BP systolic 147–170; BP diastolic 60–75; PULSE 86–121; RESP 18–20; TEMP 36.5–37.2; O2SAT 96–98
[2019-12-13] MEDS: ONDANSETRON INJ 4 MG/2 ML VIAL IV PUSH (04:55)
[2019-12-13 05:22] LABS: Hematocrit 36.5 % (37.0-47.0); Hemoglobin 11.5 g/dL (12.0-15.0); Mean Corpuscular HGB Conc 31.5 g/dl (32-36); Mean Corpuscular Hemoglobin 28.2 pg (26-34); Mean Corpuscular Volume 89.5 fl (80-100); Mean Platelet Volume 9.3 fl (7.4-10.4); Platelet Count Result 348 k/mm3 (150-375); Red Blood Count 4.08 M/mm3 (4.2-5.4); Red Cell Distribution Width 14.2 % (11.5-14.5); White Blood Count 7.5 K/mm3 (4.5-10.0)
[2019-12-13 05:37] LABS: Blood Urea Nitrogen 8 mg/dL (7-17); Calcium 8.8 mg/dL (8.4-10.2); Carbon Dioxide 24 mmol/L (22-30); Chloride 105 mmol/L (98-107); Estimated CRCL calculation 81 ml/min; Estimated Glomerular Filt Rate > 60; Glucose 132 mg/dL (65-105); Magnesium 2.1 mg/dL (1.6-2.3); Potassium 3.7 mmol/L (3.4-5.0); Sodium 138 mmol/L (137-145)
[2019-12-13] MEDS: metroNIDAZOLE 500 MG/ISO 100ML 500 MG/100 ML BAG 100 MG IVPB ×4 (06:06→23:12)
[2019-12-13] MEDS: LACTATED RINGERS 1,000 ML 75 ML IV CONT ×2 (07:16→23:21)
--- NOTE | 2019-12-13 07:56 | WPDGIPROGNO ---
Progress Note: A&P Additional Plan Patient had nausea and vomiting with preparation for colonoscopy. She was unable to complete preparation. Only a small amount of nonbloody stools last night. She denies abdominal pain at this time. On physical exam patient is alert. Vital signs stable. HEENT exam unremarkable. She is anicteric. Lungs are clear. Heart without murmur. Abdomen is obese. Bowel sounds are present. Soft and no localized tenderness. Impression 1. Terminal ileitis by CT scan. Small-bowel series seems to confirm this finding. Differential diagnosis includes infectious versus Crohn's disease. 2. Chronic constipation. plan is for patient to undergo colonoscopy. This will be deferred until tomorrow with additional preparation today. This may need to be given via NG tube. Subjective Date/time seen: 12/13/19 07:56 Objective Data Vital Signs Vital Signs: Vital Signs - 24 hr 12/12/19 08:00 12/12/19 08:21 12/12/19 12:00 Temperature Pulse Rate 94 88 68 Respiratory Rate Blood Pressure Pulse Oximetry 12/12/19 14:00 12/12/19 16:00 12/12/19 20:00 Temperature 36.1 C L Pulse Rate 72 69 74 Respiratory Rate 18 Blood Pressure 140/63 Pulse Oximetry 97 12/12/19 20:21 12/12/19 22:00 12/13/19 00:00 Temperature 36.5 C Pulse Rate 76 76 86 Respiratory Rate 20 Blood Pressure 161/59 H Pulse Oximetry 100 12/13/19 04:00 12/13/19 05:54 Temperature 37.2 C Pulse Rate 89 101 H Respiratory Rate 20 Blood Pressure 151/60 H Pulse Oximetry 96 Intake/Output Intake/Output: Intake & Output 12/10/19 12/11/19 12/12/19 12/13/19 23:59 23:59 23:59 23:59 Intake Total 3850 4580 4096 200 Output Total 1200 663 848 1077 Balance 2650 4180 3296 -1500 Meds/Results Medications: Active Medications Generic Name Dose Route Start Last Admin Trade Name Freq PRN Reason Stop Dose Admin Amlodipine Besylate 10 mg 12/13/19 09:00 Norvasc PO DAILY REID Aspirin 325 mg 12/11/19 10:50 12/12/19 08:22 Aspirin PO 325 mg DAILY [facility] Administration Atorvastatin Calcium 80 mg 12/13/19 09:00 Lipitor PO DAILY REID Bupropion HCl 150 mg 12/11/19 21:00 12/12/19 20:20 Wellbutrin-Sr (12 Hr) PO 150 mg Q12HR REID Administration Carvedilol 25 mg 12/11/19 21:00 12/12/19 20:21 Coreg PO 25 mg Q12HR REID Administration Enoxaparin Sodium 40 mg 12/10/19 18:00 12/12/19 17:40 Lovenox SUB-Q 40 mg QPM REID Administration Hydralazine HCl 10 mg 12/10/19 08:44 Apresoline Hcl Inj IV PUSH Q8H PRN Blood Pressure - High Lactated Ringer's 1,000 mls @ 75 mls/hr 12/10/19 04:50 12/13/19 07:16 Lr - Lactated Ringers Iv IV CONT 75 mls/hr .[id number] REID Administration Levofloxacin/Dextrose 750 mg in 150 mls @ 100 mls/hr 12/10/19 14:00 12/12/19 15:45 Levaquin 750 Mg/D5w 150 Ml IVPB Infused Q24H REID Infusion Metronidazole 500 mg in 100 mls @ 100 mls/hr 12/12/19 00:00 12/13/19 07:15 Flagyl 500 Mg/Iso Soln 100 Ml IVPB Infused Q6HR REID Infusion Potassium Chloride 500 mls @ 125 mls/hr 12/13/19 08:00 Kcl 40 Meq/D5w 500 Ml Peripheral IVPB 12/13/19 11:59 ONCE ONE Lisinopril 10 mg 12/11/19 09:00 12/12/19 08:21 Prinivil PO 10 mg DAILY REID Administration Morphine Sulfate 2 mg 12/10/19 08:19 12/12/19 18:41 Morphine Sulfate Inj IV PUSH 2 mg Q4H PRN Administration Pain Rated 4-6 Morphine Sulfate 4 mg 12/10/19 08:19 12/11/19 17:45 Morphine Sulfate Inj IV PUSH 4 mg Q4H PRN Administration Pain Rated 7-10 Ondansetron HCl 4 mg 12/10/19 04:48 12/13/19 04:55 Zofran Inj IV PUSH 4 mg Q4H PRN Administration Nausea Promethazine HCl 12.5 mg 12/10/19 13:58 12/12/19 22:34 Phenergan Inj IV PUSH 12.5 mg Q4H PRN Administration Nausea And Vomiting Radiology Results: ITS Impressions Abdomen/Pelvis CT 12/10/19 10:07 IMPRESSION: Terminal ileitis
--- NOTE | 2019-12-13 08:49 | PM.IMPN ---
Progress Note: A&P Assessment and Plan (1) Terminal ileitis: Code(s): K50.00 - Crohn's disease of small intestine without complications Status: Acute Assessment and Plan: The patient presented with gradually worsening lower abdominal pain with associated nausea, vomiting, chills. On arrival she had leukocytosis with a white blood cell count of 16,900 with a left shift. CT abdomen showed Terminal ileitis evidence by wall thickening and mucosal enhancement, with proximal small bowel dilatation and air-fluid levels. Findings suggest Crohn's disease vs Infectious etiology. Air-fluid levels of the colon, without obstruction. Patient has never been diagnosed with Crohn's before or any abdominal issues. WBC 7.5k today; VSS, afebrile GI consulted and appreciate recommendations; Patient was on IV Levaquin and Flagyl, however, patient had episode of Vtach this morning; will switch to IV Rocephin today and d/c levaquin. Continue Flagyl Colonoscopy was to be performed today per Dr. Gonzalez, however, patient did not tolerate bowel prep. NGT has been placed per Dr. Gonzalez and bowel prep to be resumed today for colonoscopy to be done tomorrow Monitor for improvement Pain control as needed (2) Small bowel obstruction: Code(s): K56.609 - Unspecified intestinal obstruction, unspecified as to partial versus complete obstruction Status: Acute Assessment and Plan: The patient's upper GI series showed persistent narrowing of the terminal ileum with moderate proximal small-bowel dilatation. Obstructive x-ray series today showed Persistent gaseous distention of the small bowel, consistent with partial small bowel obstruction versus adynamic ileus. General Surgery was consulted and appreciate recommendations Continue IV antibiotics; IV rocephin and Flagyl light IVF for now Advance diet per GI Monitor (3) Constipation: Code(s): K59.00 - Constipation, unspecified Status: Acute Assessment and Plan: Patient has a long history of constipation and was taking senna and MiraLax in the past. She has not been eating any solid food for over 1 month since her bypass surgery due to abdominal pain. Since being here in the hospital she has had to 4-5 bowel movements which have been soft and watery in nature; this is most likely secondary to x-ray upper GI water soluble testing this morning. GI was consulted he recommended her restarting her stool softeners once discharged (4) Hypokalemia: Code(s): E87.6 - Hypokalemia Status: Acute Assessment and Plan: Potassium was slightly low at 3.1 on arrival. K 3.7 today, Mag 2.1. Telemetry showed Vtach this morning; asymptomatic Potassium to be replaced today Trend potassium and magnesium tomorrow (5) Subclavian steal syndrome: Code(s): G45.8 - Other transient cerebral ischemic attacks and related syndromes Status: Acute Assessment and Plan: The patient had bypass surgery for treatment of her subclavian steal syndrome October 21, 2019. Since her surgery, she has been having issues with eating abdominal discomfort. She has been on a full-dose aspirin daily post-op Continue 325 mg aspirin Will continue with subcu Lovenox 40 mg for DVT prophylaxis (6) Hypertension: Qualifiers: Hypertension type: essential hypertension Qualified Code(s): I10 - Essential (primary) hypertension Code(s): I10 - Essential (primary) hypertension Status: Acute Assessment and Plan: BP 150s sys this morning. Continue carvedilol, amlodipine, and lisinopril Will continue to hold her hydrochlorothiazide at this time Monitor Continue IV p.r.n. hydralazine to be given if systolic BP is greater th
[2019-12-13] MEDS: AMLODIPINE BESYLATE 5 MG TABLET 10 MG PO (09:06)
[2019-12-13] MEDS: ATORVASTATIN 40 MG TABLET 80 MG PO (09:06)
[2019-12-13] MEDS: lisinopriL 10 MG TABLET PO (09:06)
[2019-12-13] MEDS: PEG (High)/E-LYTE SOLN 4,000 ML BTL 3000 ML PO (10:00)
--- NOTE | 2019-12-13 10:45 | PM.PNGS ---
Progress Note: A&P Assessment and Plan (1) Terminal ileitis: Code(s): K50.00 - Crohn's disease of small intestine without complications Status: Acute Assessment and Plan: still c intermittent symptomatology, exam benign, cont broad spectrum abx, anticipate endoscopy tomorrow Subjective Subjective Date/Time Seen: 12/13/19 10:45 Interval history: Pt with recurrence of symptoms with the prep yesterday. Pt c/o lower abd pain, N/V. NG replaced at this time. Pt reports sx now largely resolved. Pt had small BM overnight. Colonoscopy canceled today and will try prep thru NG today. Review of Systems Constitutional: Constitutional: Reports fatigue, Reports lethargy and Reports weakness Cardiovascular: Cardiovascular: Denies chest pain Respiratory: Respiratory: Denies dyspnea Gastrointestinal: Gastrointestinal: Reports abdominal pain, Reports bloating, Reports constipation, Reports nausea and Reports vomiting Exam Const: General: no acute distress Resp: Auscultation: clear to auscultation bilaterally Cardio: Rate: regular rate Rhythm: regular rhythm GI: Other: Soft, sl dist, mild TTP RLQ, no peritoneal signs Objective Data Vital Signs Vital Signs: Vital Signs - 24 hr 12/12/19 12:00 12/12/19 14:00 12/12/19 16:00 Temperature 36.1 C L Pulse Rate 68 72 69 Respiratory Rate 18 Blood Pressure 140/63 Pulse Oximetry 97 12/12/19 20:00 12/12/19 20:21 12/12/19 22:00 Temperature 36.5 C Pulse Rate 74 76 76 Respiratory Rate 20 Blood Pressure 161/59 H Pulse Oximetry 100 12/13/19 00:00 12/13/19 04:00 12/13/19 05:54 Temperature 37.2 C Pulse Rate 86 89 101 H Respiratory Rate 20 Blood Pressure 151/60 H Pulse Oximetry 96 12/13/19 08:00 Temperature Pulse Rate 97 Respiratory Rate Blood Pressure Pulse Oximetry Intake/Output Intake/Output: Intake & Output 12/10/19 12/11/19 12/12/19 12/13/19 23:59 23:59 23:59 23:59 Intake Total 3850 4580 4096 300 Output Total 1200 314 081 8183 Balance 2650 4180 3296 -1400 Meds/Results Medications: Active Medications Generic Name Dose Route Start Last Admin Trade Name Freq PRN Reason Stop Dose Admin Amlodipine Besylate 10 mg 12/13/19 09:00 12/13/19 09:06 Norvasc PO 10 mg DAILY [facility] Administration Aspirin 325 mg 12/11/19 10:50 12/13/19 09:03 Aspirin PO Not Given DAILY REID Atorvastatin Calcium 80 mg 12/13/19 09:00 12/13/19 09:06 Lipitor PO 80 mg DAILY REID Administration Bupropion HCl 150 mg 12/11/19 21:00 12/13/19 08:57 Wellbutrin-Sr (12 Hr) PO Not Given Q12HR REID Carvedilol 25 mg 12/11/19 21:00 12/13/19 09:02 Coreg PO Not Given Q12HR REID Enoxaparin Sodium 40 mg 12/10/19 18:00 12/12/19 17:40 Lovenox SUB-Q 40 mg QPM REID Administration Hydralazine HCl 10 mg 12/10/19 08:44 Apresoline Hcl Inj IV PUSH Q8H PRN Blood Pressure - High Lactated Ringer's 1,000 mls @ 75 mls/hr 12/10/19 04:50 12/13/19 07:16 Lr - Lactated Ringers Iv IV CONT 75 mls/hr .[id number] REID Administration Metronidazole 500 mg in 100 mls @ 100 mls/hr 12/12/19 00:00 12/13/19 07:15 Flagyl 500 Mg/Iso Soln 100 Ml IVPB Infused Q6HR REID Infusion Potassium Chloride 500 mls @ 125 mls/hr 12/13/19 08:00 12/13/19 09:06 Kcl 40 Meq/D5w 500 Ml Peripheral IVPB 12/13/19 11:59 100 mls/hr ONCE ONE Administration Ceftriaxone Sodium 2 gm in 100 mls @ 200 mls/hr 12/13/19 09:00 12/13/19 09:40 Rocephin 2 Gm/D5w 100 Ml IVPB Infused QAM REID Infusion Lisinopril 10 mg 12/11/19 09:00 12/13/19 09:06 Prinivil PO 10 mg DAILY REID Administration Morphine Sulfate 2 mg 12/10/19 08:19 12/12/19 18:41 Morphine Sulfate Inj IV PUSH 2 mg Q4H PRN Administration Pain Rated 4-6 Morphine Sulfate 4 mg 12/10/19 08:19 12/11/19 17:45 Morphine Sulfate Inj IV PUSH 4 mg Q4H PRN Administration Pain Rated 7-10 Ondansetro
[2019-12-13] MEDS: MORPHINE SULFATE 2 MG/ML INJ IV PUSH ×2 (12:20→23:12)
[2019-12-13] MEDS: PROMETHAZINE HCL 25 MG/ML AMPUL 12.5 MG IV PUSH (13:40)
[2019-12-13] MEDS: ENOXAPARIN 40 MG/0.4 ML SYRINGE SUB-Q (18:49)
[2019-12-13] MEDS: carvediloL 25 MG TABLET PO (20:43)
[2019-12-14] VITALS (18 sets, daily range): BP systolic 132–171; BP diastolic 45–73; PULSE 70–91; RESP 16–24; TEMP 36.3–36.9; O2SAT 95–100
[2019-12-14 04:56] LABS: Hematocrit 31.5 % (37.0-47.0); Hemoglobin 10.1 g/dL (12.0-15.0); Mean Corpuscular HGB Conc 32.1 g/dl (32-36); Mean Corpuscular Hemoglobin 29.1 pg (26-34); Mean Corpuscular Volume 90.8 fl (80-100); Platelet Count Result 286 k/mm3 (150-375); Red Blood Count 3.47 M/mm3 (4.2-5.4); Red Cell Distribution Width 14.3 % (11.5-14.5); White Blood Count 7.4 K/mm3 (4.5-10.0)
[2019-12-14 05:16] LABS: Blood Urea Nitrogen 10 mg/dL (7-17); Calcium 8.1 mg/dL (8.4-10.2); Carbon Dioxide 26 mmol/L (22-30); Chloride 105 mmol/L (98-107); Estimated CRCL calculation 81 ml/min; Estimated Glomerular Filt Rate > 60; Glucose 128 mg/dL (65-105); Potassium 3.3 mmol/L (3.4-5.0); Sodium 138 mmol/L (137-145)
[2019-12-14] MEDS: metroNIDAZOLE 500 MG/ISO 100ML 500 MG/100 ML BAG 100 MG IVPB ×4 (05:42→23:28)
--- NOTE | 2019-12-14 09:10 | ECG_ITS ---
Measurements Intervals [place] Rate: 65 P: 129 [place]: 169 QRS: 177 QRSD: 105 T: 180 QT: 393 QTc: 409 Interpretive Statements SINUS RHYTHM VENTRICULAR PREMATURE COMPLEXES ARM LEADS REVERSED DELAYED PRECORDIAL R/S TRANSITION BORDERLINE ST-T WAVE ABNORMALITY- ANT/INF LEADS BORDERLINE ECG Electronically Signed On 12-14-2019 13:00:42 CDT by Noman Gillis D.O.
--- NOTE | 2019-12-14 09:11 | PM.IMPN ---
Progress Note: A&P Assessment and Plan (1) Terminal ileitis: Code(s): K50.00 - Crohn's disease of small intestine without complications Status: Acute Assessment and Plan: The patient presented with gradually worsening lower abdominal pain with associated nausea, vomiting, chills. On arrival she had leukocytosis with a white blood cell count of 16,900 with a left shift. CT abdomen showed terminal ileitis evidence by wall thickening and mucosal enhancement, with proximal small bowel dilatation and air-fluid levels. Findings suggest Crohn's disease vs Infectious etiology. Air-fluid levels of the colon, without obstruction. Patient has never been diagnosed with Crohn's before or any abdominal issues. WBC 7.4k today; VSS, afebrile GI consulted and appreciate recommendations; Patient was on IV Levaquin and Flagyl, however, patient had episode of Vtach earlier in stay and was subsequently switched from IV levaquin to IV Rocephin. Continue Flagyl and Rocephin Colonoscopy to be performed today per Dr. Gonzalez; await further recommendations Monitor for improvement Pain control as needed (2) Small bowel obstruction: Code(s): K56.609 - Unspecified intestinal obstruction, unspecified as to partial versus complete obstruction Status: Acute Assessment and Plan: The patient's upper GI series showed persistent narrowing of the terminal ileum with moderate proximal small-bowel dilatation. Obstructive x-ray series today showed Persistent gaseous distention of the small bowel, consistent with partial small bowel obstruction versus adynamic ileus. General Surgery was consulted and appreciate recommendations Continue IV antibiotics; IV rocephin and Flagyl light IVF for now; consider d/c once diet resumed Defer advancement in diet to GI Monitor (3) Constipation: Code(s): K59.00 - Constipation, unspecified Status: Acute Assessment and Plan: Patient has a long history of constipation and was taking senna and MiraLax in the past. She has not been eating any solid food for over 1 month since her bypass surgery due to abdominal pain. Since being here in the hospital she has had to 4-5 bowel movements which have been soft and watery in nature; this is most likely secondary to x-ray upper GI water soluble testing this morning. GI was consulted he recommended her restarting her stool softeners once discharged (4) Hypokalemia: Code(s): E87.6 - Hypokalemia Status: Acute Assessment and Plan: Potassium was slightly low at 3.1 on arrival. K 3.3 today, Mag 2.0. Telemetry shows vent bigeminy and trigeminy overnight and this morning with frequent pvcs in otherwise NSR; sinus tachycardia yesterday evening; no other ectopy; asymptomatic Potassium to be replaced today; patient intolerant to IV potassium. Will do 60 mEq KCl PO Trend potassium and magnesium this afternoon and tomorrow (5) Subclavian steal syndrome: Code(s): G45.8 - Other transient cerebral ischemic attacks and related syndromes Status: Acute Assessment and Plan: The patient had bypass surgery for treatment of her subclavian steal syndrome October 21, 2019. Since her surgery, she has been having issues with eating abdominal discomfort. She has been on a full-dose aspirin daily post-op Continue 325 mg aspirin Will continue with subcu Lovenox 40 mg for DVT prophylaxis (6) Hypertension: Qualifiers: Hypertension type: essential hypertension Qualified Code(s): I10 - Essential (primary) hypertension Code(s): I10 - Essential (primary) hypertension Status: Acute Assessment and Plan: BP 130s sys this morning. Continue carvedilol, amlodipine, and lisinop
[2019-12-14] MEDS: LACTATED RINGERS 1,000 ML 150 ML IV CONT (10:18)
--- NOTE | 2019-12-14 10:25 | WPDANESEPPF ---
Anes - Initial Pre Proc Eval Procedure: Operation Date: 12/14/19 11:00 Proposed Procedures p Colonoscopy - Samson Gonzalez MD Date/Time: 12/14/19 10:25 Surgeon: Mauricio Mcleod PA-C Pre Op Diagnosis: SBO Patient Data Age: 73 Gender: F Height: 5 ft 7 in Weight: 82.5 kg Last Vital Signs Temp 36.3 C L 12/14/19 10:15 Pulse 77 12/14/19 10:15 Resp 16 12/14/19 10:15 BP 161/59 H 12/14/19 10:15 Pulse Ox 98 12/14/19 10:15 Allergies Allergy/AdvReac Type Severity Reaction Status Date / Time coffee (Coffea arabica) Allergy Severe syncope Verified 12/10/19 01:52 naproxen Allergy Intermediate Hives Verified 12/10/19 01:52 NSAIDS (Non-Steroidal Allergy Intermediate hives Verified 12/10/19 01:52 Anti-Inflamma Penicillins Allergy Intermediate Hives Verified 12/10/19 01:52 indomethacin Allergy Unknown Nausea Verified 12/10/19 01:52 Sulfa (Sulfonamide Allergy Unknown Hives Verified 12/10/19 01:52 Antibiotics) Sulfonamides Allergy Intermediate unknown Uncoded 12/10/19 01:52 Home Medications Medication Instructions Recorded Confirmed Type hydrochlorothiazide 25 mg tablet 25 mg PO DAILY #90 tablet 10/06/19 12/10/19 Rx cetirizine 10 mg capsule 10 mg PO DAILY cap 10/17/19 12/10/19 History sennosides 8.6 mg capsule 8.6 mg PO BID PRN 10/17/19 12/10/19 History acetaminophen 500 mg capsule 1,000 mg PO Q6H PRN cap 11/11/19 12/10/19 History bisacodyl 10 mg rectal suppository 10 mg RECTAL DAILY PRN 11/11/19 12/10/19 History polyethylene glycol 3350 17 17 gm PO DAILY PRN 11/11/19 12/10/19 History gram/dose oral powder atorvastatin 80 mg tablet 80 mg PO DAILY #30 tablet 11/25/19 12/10/19 Rx bupropion HCl 150 mg tablet,12 hr 150 mg PO BID #60 tablet 11/25/19 12/10/19 Rx sustained-release amlodipine 10 mg tablet 10 mg PO DAILY #90 tablet 11/28/19 12/10/19 Rx carvedilol 25 mg tablet 25 mg PO Q12H #180 tablet 11/28/19 12/10/19 Rx lisinopril 10 mg tablet 10 mg PO DAILY #90 tablet 11/28/19 12/10/19 Rx doxycycline monohydrate 50 mg PO BID 11/29/19 12/10/19 History ondansetron HCl 4 mg PO Q8H PRN 11/29/19 12/10/19 History oxycodone 5 mg PO Q4H PRN 11/29/19 12/10/19 History montelukast 10 mg tablet 10 mg PO DAILY #90 tablet 12/06/19 12/10/19 Rx aspirin 325 mg PO DAILY 12/10/19 12/10/19 History camphor-menthol [Anti-Itch 1 applic TOPICAL QID 12/10/19 12/10/19 History (menthol/camphor)] Laboratory Tests 12/14/19 12/14/19 04:41 04:41 WBC 7.4 K/mm3 K/mm3 (4.5-10.0) RBC 3.47 M/mm3 L M/mm3 (4.2-5.4) Hgb 10.1 g/dL L g/dL (12.0-15.0) Hct 31.5 % L % (37.0-47.0) MCV 90.8 fl fl (80-100) MCH 29.1 pg pg (26-34) MCHC 32.1 g/dl g/dl (32-36) RDW 14.3 % % (11.5-14.5) Plt Count 286 k/mm3 k/mm3 (150-375) MPV 9.0 fl fl (7.4-10.4) Sodium 138 mmol/L mmol/L (137-145) Potassium 3.3 mmol/L L mmol/L (3.4-5.0) Chloride 105 mmol/L mmol/L (98-107) Carbon Dioxide 26 mmol/L mmol/L (22-30) BUN 10 mg/dL mg/dL (7-17) Creatinine 0.60 mg/dL L mg/dL (0.7-1.0) Estim Creat Clear Calc 81 ml/min ml/min Estimated GFR > 60 (59 - ) Glucose 128 mg/dL H mg/dL (65-105) Calcium 8.1 mg/dL L mg/dL (8.4-10.2) Magnesium 2.0 mg/dL mg/dL (1.6-2.3) Patient hx anesthesia problems: none Family hx anesthesia problems: none [facility] Past Medical History Medical History Aortic valve regurgitation Arthritis CAD (coronary artery disease) Carotid disease, bilateral Chronic back pain CVA (cerebral vascular accident) DDD (degenerative disc disease) Depression DM2 (diabetes mellitus, type 2) Hypercholesterolemia Hypertension Mitral valve regurgitation Osteoporosis Peripheral vascular disease Peripheral vascular disease of extremity Post-menopausal Seasonal allergies Stenosis of brachiocephalic artery Subclavian deni
--- NOTE | 2019-12-14 11:23 | PM.PNGS ---
Progress Note: A&P Assessment and Plan (1) Terminal ileitis: Code(s): K50.00 - Crohn's disease of small intestine without complications Status: Acute Assessment and Plan: await scope today, cont abx, serial exams, NG decompression for now (2) Small bowel obstruction: Code(s): K56.609 - Unspecified intestinal obstruction, unspecified as to partial versus complete obstruction Status: Acute Assessment and Plan: cont NG decompression, await scope results, may need ilealcecectomy Subjective Subjective Date/Time Seen: 12/14/19 11:23 Pt reports no acute changes. Pt reports mild abd pain in RLQ. Pt denies any N/V. Pt reports flatus and BMs yest. Review of Systems Constitutional: Constitutional: Denies chills, Reports fatigue and Reports weakness Cardiovascular: Cardiovascular: Denies chest pain Respiratory: Respiratory: Denies dyspnea Gastrointestinal: Gastrointestinal: Reports abdominal pain, Reports bloating, Denies constipation, Reports diarrhea, Denies nausea and Denies vomiting Exam Const: General: no acute distress Resp: Auscultation: clear to auscultation bilaterally Cardio: Rate: regular rate Rhythm: regular rhythm GI: Other: soft, sl dist, mild TTP RLQ, no peritoneal signs Objective Data Vital Signs Vital Signs: Vital Signs - 24 hr 12/13/19 12:00 12/13/19 14:00 12/13/19 16:00 Temperature 36.8 C Pulse Rate 121 H 94 98 Respiratory Rate 18 Blood Pressure 170/75 H Pulse Oximetry 96 12/13/19 20:00 12/13/19 20:43 12/13/19 22:00 Temperature 36.5 C Pulse Rate 98 98 96 Respiratory Rate 18 20 Blood Pressure 147/64 H Pulse Oximetry 96 98 12/14/19 00:00 12/14/19 04:00 12/14/19 05:58 Temperature 36.9 C Pulse Rate 80 74 91 Respiratory Rate 20 Blood Pressure 143/63 H Pulse Oximetry 95 12/14/19 08:00 12/14/19 10:15 Temperature 36.9 C 36.3 C L Pulse Rate 74 77 Respiratory Rate 18 16 Blood Pressure 138/54 L 161/59 H Pulse Oximetry 98 98 Intake/Output Intake/Output: Intake & Output 12/11/19 12/12/19 12/13/19 12/14/19 23:59 23:59 23:59 23:59 Intake Total 4580 4096 1500 300 Output Total 776 639 0779 Balance 4180 3296 -900 300 Meds/Results Medications: Active Medications Generic Name Dose Route Start Last Admin Trade Name Freq PRN Reason Stop Dose Admin Amlodipine Besylate 10 mg 12/13/19 09:00 12/13/19 09:06 Norvasc PO 10 mg DAILY REID Administration Aspirin 325 mg 12/11/19 10:50 12/13/19 09:03 Aspirin PO Not Given DAILY REID Atorvastatin Calcium 80 mg 12/13/19 09:00 12/13/19 09:06 Lipitor PO 80 mg DAILY REID Administration Bupropion HCl 150 mg 12/11/19 21:00 12/13/19 20:43 Wellbutrin-Sr (12 Hr) PO 150 mg Q12HR REID Administration Carvedilol 25 mg 12/11/19 21:00 12/13/19 20:43 Coreg PO 25 mg Q12HR REID Administration Enoxaparin Sodium 40 mg 12/10/19 18:00 12/13/19 18:49 Lovenox SUB-Q 40 mg QPM REID Administration Hydralazine HCl 10 mg 12/10/19 08:44 Apresoline Hcl Inj IV PUSH Q8H PRN Blood Pressure - High Lactated Ringer's 1,000 mls @ 75 mls/hr 12/10/19 04:50 12/13/19 23:21 Lr - Lactated Ringers Iv IV CONT 75 mls/hr .[id number] REID Administration Metronidazole 500 mg in 100 mls @ 100 mls/hr 12/12/19 00:00 12/14/19 06:40 Flagyl 500 Mg/Iso Soln 100 Ml IVPB Infused Q6HR REID Infusion Ceftriaxone Sodium 2 gm in 100 mls @ 200 mls/hr 12/13/19 09:00 12/14/19 08:22 Rocephin 2 Gm/D5w 100 Ml IVPB Infused QAM REID Infusion Lactated Ringer's 1,000 mls @ 150 mls/hr 12/14/19 06:50 12/14/19 10:18 Lr - Lactated Ringers Iv IV CONT 150 mls/hr .Q6H40M REID Administration Lactated Ringer's 1,000 mls @ 150 mls/hr 12/14/19 07:30 Lr - Lactated Ringers Iv IV CONT .Q6H40M REID Lisinopril 10 mg 12/11/19 09:00 12/13/19 09:06 Prinivil PO 10 mg DAILY REID Administration Morphine Sulfate 2 mg 0
--- NOTE | 2019-12-14 12:15 | PC.NURSE ---
Patient returned from GI lab via stretcher with GI lab staff. No distress noted. No c/o pain.
--- NOTE | 2019-12-14 12:20 | PC.NURSE ---
Patient has returned from GI lab by otilio.
[2019-12-14] MEDS: ASPIRIN 325 MG TABLET PO (13:19)
[2019-12-14] MEDS: ATORVASTATIN 40 MG TABLET 80 MG PO (13:19)
[2019-12-14] MEDS: AMLODIPINE BESYLATE 5 MG TABLET 10 MG PO (13:19)
[2019-12-14] MEDS: carvediloL 25 MG TABLET PO ×2 (13:19→20:34)
[2019-12-14] MEDS: POTASSIUM CHLORIDE 20 MEQ TABLET 40 MEQ PO ×2 (13:20→17:58)
[2019-12-14] MEDS: lisinopriL 10 MG TABLET PO (13:20)
[2019-12-14] MEDS: POTASSIUM CHLORIDE 20 MEQ TABLET PO (15:04)
[2019-12-14 16:36] LABS: Blood Urea Nitrogen 12 mg/dL (7-17); Calcium 8.1 mg/dL (8.4-10.2); Carbon Dioxide 25 mmol/L (22-30); Chloride 106 mmol/L (98-107); Estimated CRCL calculation 70 ml/min; Estimated Glomerular Filt Rate > 60; Glucose 89 mg/dL (65-105); Magnesium 1.8 mg/dL (1.6-2.3); Potassium 3.1 mmol/L (3.4-5.0); Sodium 137 mmol/L (137-145)
[2019-12-14] MEDS: ENOXAPARIN 40 MG/0.4 ML SYRINGE SUB-Q (17:59)
[2019-12-15] VITALS: PULSE 57
[2019-12-15] MEDS: ACETAMINOPHEN 325 MG TABLET 650 MG PO ×2 (00:36→09:28)
[2019-12-15 04:00] VITALS: PULSE 63
[2019-12-15 05:15] LABS: Hematocrit 29.2 % (37.0-47.0); Hemoglobin 9.5 g/dL (12.0-15.0); Mean Corpuscular HGB Conc 32.5 g/dl (32-36); Mean Corpuscular Hemoglobin 29.7 pg (26-34); Mean Corpuscular Volume 91.3 fl (80-100); Mean Platelet Volume 9.4 fl (7.4-10.4); Platelet Count Result 264 k/mm3 (150-375); Red Cell Distribution Width 14.5 % (11.5-14.5); White Blood Count 6.7 K/mm3 (4.5-10.0)
[2019-12-15 05:26] LABS: Blood Urea Nitrogen 16 mg/dL (7-17); Calcium 7.9 mg/dL (8.4-10.2); Carbon Dioxide 20 mmol/L (22-30); Chloride 110 mmol/L (98-107); Estimated CRCL calculation 81 ml/min; Estimated Glomerular Filt Rate > 60; Glucose 93 mg/dL (65-105); Sodium 136 mmol/L (137-145)
[2019-12-15 05:49] VITALS: BP 152/55; PULSE 66; RESP 20; TEMP 36.1; O2SAT 95
[2019-12-15] MEDS: metroNIDAZOLE 500 MG/ISO 100ML 500 MG/100 ML BAG 100 MG IVPB (06:00)
--- NOTE | 2019-12-15 07:33 | WPDGIPROGNO ---
Progress Note: A&P Additional Plan Patient alert this morning comfortable at rest. Passed a bowel movement. No bleeding evident. Physical exam reveals her to be alert. Vital signs stable. Lungs are clear. Heart without murmur. Abdomen is obese. Bowel sounds are present soft. No localized tenderness. Impression 1. Resolved partial small bowel obstruction. At the present time will continue treatment for possible infectious etiology. 7-10 day course of antibiotics suggested. IBD serology will be obtained. Plan to advance diet and discharge. Outpatient follow-up in 2-3 weeks. 2. Unremarkable ileum by recent colonoscopy. Plan is to allow low residue diet. Increase activity. Discharge on antibiotics to complete 7-10 day course. Follow up in Dr. Gonzalez's office in 2-3 weeks. Subjective Date/time seen: 12/15/19 07:33 Objective Data Vital Signs Vital Signs: Vital Signs - 24 hr 12/14/19 08:00 12/14/19 10:15 12/14/19 11:46 Temperature 36.9 C 36.3 C L Pulse Rate 74 77 79 Respiratory Rate 18 16 24 H Blood Pressure 138/54 L 161/59 H 171/73 H Pulse Oximetry 98 98 98 12/14/19 11:56 12/14/19 12:06 12/14/19 12:25 Temperature 36.4 C Pulse Rate 83 79 76 Respiratory Rate 20 22 H 18 Blood Pressure 136/63 139/58 L 141/53 H Pulse Oximetry 96 99 100 12/14/19 12:30 12/14/19 12:40 12/14/19 13:10 Temperature 36.3 C L 36.8 C Pulse Rate 80 70 77 Respiratory Rate 18 18 Blood Pressure 143/51 H 155/50 H Pulse Oximetry 100 100 12/14/19 13:19 12/14/19 14:00 12/14/19 16:00 Temperature 36.6 C Pulse Rate 80 80 71 Respiratory Rate 18 Blood Pressure 132/46 L Pulse Oximetry 100 12/14/19 20:00 12/14/19 20:34 12/14/19 22:00 Temperature 36.3 C L Pulse Rate 78 78 75 Respiratory Rate 18 20 Blood Pressure 133/45 L Pulse Oximetry 100 96 12/15/19 00:00 12/15/19 04:00 12/15/19 05:49 Temperature 36.1 C L Pulse Rate 57 L 63 66 Respiratory Rate 20 Blood Pressure 152/55 H Pulse Oximetry 95 Intake/Output Intake/Output: Intake & Output 12/12/19 12/13/19 12/14/19 12/15/19 23:59 23:59 23:59 23:59 Intake Total 4096 1500 1989 490 Output Total 800 2400 600 Balance 3479 -114 1989 Meds/Results Medications: Active Medications Generic Name Dose Route Start Last Admin Trade Name Freq PRN Reason Stop Dose Admin Acetaminophen 650 mg 12/15/19 00:11 12/15/19 00:36 Tylenol Tablet PO 650 mg Q4H PRN Administration Mild Pain (1-3) or Fever Amlodipine Besylate 10 mg 12/13/19 09:00 12/14/19 13:19 Norvasc PO 10 mg DAILY REID Administration Aspirin 325 mg 12/11/19 10:50 12/14/19 13:19 Aspirin PO 325 mg DAILY REID Administration Atorvastatin Calcium 80 mg 12/13/19 09:00 12/14/19 13:19 Lipitor PO 80 mg DAILY REID Administration Bupropion HCl 150 mg 12/11/19 21:00 12/14/19 20:34 Wellbutrin-Sr (12 Hr) PO 150 mg Q12HR REID Administration Carvedilol 25 mg 12/11/19 21:00 12/14/19 20:34 Coreg PO 25 mg Q12HR REID Administration Enoxaparin Sodium 40 mg 12/10/19 18:00 12/14/19 17:59 Lovenox SUB-Q 40 mg QPM REID Administration Hydralazine HCl 10 mg 12/10/19 08:44 Apresoline Hcl Inj IV PUSH Q8H PRN Blood Pressure - High Hydrochlorothiazide 25 mg 12/15/19 09:00 Hydrochlorothiazide PO DAILY REID Metronidazole 500 mg in 100 mls @ 100 mls/hr 12/12/19 00:00 12/15/19 06:00 Flagyl 500 Mg/Iso Soln 100 Ml IVPB 100 mls/hr Q6HR REID Administration Ceftriaxone Sodium 2 gm in 100 mls @ 200 mls/hr 12/13/19 09:00 12/14/19 08:22 Rocephin 2 Gm/D5w 100 Ml IVPB Infused QAM REID Infusion Lisinopril 10 mg 12/11/19 09:00 12/14/19 13:20 Prinivil PO 10 mg DAILY REID Administration Morphine Sulfate 2 mg 12/10/19 08:19 12/13/19 23:12 Morphine Sulfate Inj IV PUSH 2 mg Q4H PRN Administration Pain Rated 4-6 Morphine Sulfate 4 mg 12/10/19 08:19 12/11/19 17:45 Mor
[2019-12-15 08:00] VITALS: PULSE 66; PULSE 73; RESP 20; O2SAT 95
[2019-12-15 09:22] VITALS: PULSE 66
[2019-12-15] MEDS: ATORVASTATIN 40 MG TABLET 80 MG PO (09:22)
[2019-12-15] MEDS: lisinopriL 10 MG TABLET PO (09:22)
[2019-12-15] MEDS: AMLODIPINE BESYLATE 5 MG TABLET 10 MG PO (09:22)
[2019-12-15] MEDS: carvediloL 25 MG TABLET PO (09:22)
[2019-12-15] MEDS: ASPIRIN 325 MG TABLET PO (09:22)
[2019-12-15] MEDS: hydroCHLOROthiazide 25 MG TABLET PO (09:23)
--- NOTE | 2019-12-15 09:39 | PM.PNGS ---
Progress Note: A&P Assessment and Plan (1) Terminal ileitis: Code(s): K50.00 - Crohn's disease of small intestine without complications Status: Acute Assessment and Plan: No narrowing or inflammation noted on Colonoscopy yesterday. Tolerating a low fiber diet. +Bowel function and abdominal exam benign. Patient still having some abdominal pain but overall improvement since admission. Continue antibiotics per GI. GI also planning IBD panel. Okay to discharge from a surgical standpoint. Will have the patient follow-up with Dr. Vasquez in 2 weeks. (2) Small bowel obstruction: Code(s): K56.609 - Unspecified intestinal obstruction, unspecified as to partial versus complete obstruction Status: Acute Assessment and Plan: Seems to have resolved. See plan above. Additional Plan Discussed plan of care with Dr. Vasquez today. Subjective Subjective Date/Time Seen: 12/15/19 09:20 Patient reports: no new complaints, feels better, flatus and bowel movement Interval history: Patient reports feeling tired today but overall feeling better. Reports still having cramping abdominal pain with bowel movements but this is improved and otherwise no abdominal pain. No nausea, vomiting, or bloating. Tolerating a low residue diet this morning. No other complaints at this time. Review of Systems Review of Systems: All systems reviewed & are unremarkable except as noted in HPI and below Exam Const: General: comfortable, no acute distress, alert and awake Orientation/consciousness: patient oriented x3 GI: Inspection: normal to inspection and non-distended GI Palp: Yes Soft to palpation and Yes Tenderness to palpation present (GI) (mild tenderness in RLQ) Auscultation: normal bowel sounds Rectal Exam: deferred Skin: General skin exam: normal color Psych: Mental Status: mental status grossly normal Attitude: cooperative Insight: Good insight present (Psych) Judgement: Good judgement present (Psych) Objective Data Vital Signs Vital Signs: Vital Signs - 24 hr 12/14/19 10:15 12/14/19 11:46 12/14/19 11:56 Temperature 36.3 C L Pulse Rate 77 79 83 Respiratory Rate 16 24 H 20 Blood Pressure 161/59 H 171/73 H 136/63 Pulse Oximetry 98 98 96 12/14/19 12:06 12/14/19 12:25 12/14/19 12:30 Temperature 36.4 C Pulse Rate 79 76 80 Respiratory Rate 22 H 18 Blood Pressure 139/58 L 141/53 H Pulse Oximetry 99 100 12/14/19 12:40 12/14/19 13:10 12/14/19 13:19 Temperature 36.3 C L 36.8 C Pulse Rate 70 77 80 Respiratory Rate 18 18 Blood Pressure 143/51 H 155/50 H Pulse Oximetry 100 100 12/14/19 14:00 12/14/19 16:00 12/14/19 20:00 Temperature 36.6 C Pulse Rate 80 71 78 Respiratory Rate 18 18 Blood Pressure 132/46 L Pulse Oximetry 100 100 12/14/19 20:34 12/14/19 22:00 12/15/19 00:00 Temperature 36.3 C L Pulse Rate 78 75 57 L Respiratory Rate 20 Blood Pressure 133/45 L Pulse Oximetry 96 12/15/19 04:00 12/15/19 05:49 12/15/19 09:22 Temperature 36.1 C L Pulse Rate 63 66 66 Respiratory Rate 20 Blood Pressure 152/55 H Pulse Oximetry 95 Intake/Output Intake/Output: Intake & Output 12/12/19 12/13/19 12/14/19 12/15/19 23:59 23:59 23:59 23:59 Intake Total 4096 1500 1989 950 Output Total 800 2400 600 Balance 3296 -900 1989 350 Meds/Results Medications: Active Medications Generic Name Dose Route Start Last Admin Trade Name Freq PRN Reason Stop Dose Admin Acetaminophen 650 mg 12/15/19 00:11 12/15/19 09:28 Tylenol Tablet PO 650 mg Q4H PRN Administration Mild Pain (1-3) or Fever Amlodipine Besylate 10 mg 12/13/19 09:00 12/15/19 09:22 Norvasc PO 10 mg DAILY REID Administration Aspirin 325 mg 12/11/19 10:50 12/15/19 09:22 Aspirin PO 325 mg DAILY REID Administration Atorvastatin Calcium 80 mg 12/13/19 09:00 12/15/19 09:22 Lipitor PO 80 mg DAILY REID Administration Bupropion HCl 150 mg 12/11/19 21:00
--- NOTE | 2019-12-15 10:12 | PM.DS ---
DS: Diagnosis Admitting Diagnosis Admitting Diagnosis: Constipation, unspecified Discharge Diagnosis (1) Terminal ileitis: Code(s): K50.00 - Crohn's disease of small intestine without complications Status: Acute Assessment and Plan: The patient presented with gradually worsening lower abdominal pain with associated nausea, vomiting, chills. On arrival she had leukocytosis with a white blood cell count of 16.9k with a left shift. CT abdomen showed terminal ileitis evidence by wall thickening and mucosal enhancement, with proximal small bowel dilatation and air-fluid levels. Findings suggest Crohn's disease vs Infectious etiology. Air-fluid levels of the colon, without obstruction. Patient has never been diagnosed with Crohn's before or any abdominal issues. WBC 6.7k today; VSS, afebrile. Colonoscopy yesterday revealed unremarkable ileum. Clinically patient has improved with improved pain and BMs today. GI consulted and appreciate recommendations Patient was on IV Levaquin and Flagyl, however, patient had episode of Vtach earlier in stay and was subsequently switched from IV levaquin to IV Rocephin. Continue broad spectrum antibiotics after discharge to complete 10 days F/u with GI in 2-3 weeks and PCP (2) Small bowel obstruction: Code(s): K56.609 - Unspecified intestinal obstruction, unspecified as to partial versus complete obstruction Status: Acute Assessment and Plan: The patient's upper GI series showed persistent narrowing of the terminal ileum with moderate proximal small-bowel dilatation. Obstructive x-ray series today showed Persistent gaseous distention of the small bowel, consistent with partial small bowel obstruction versus adynamic ileus. General Surgery was consulted and appreciate recommendations IV antibiotics during stay. Will continue broad spectrum antibiotics for 10 day course Low residue diet per GI Monitor (3) Constipation: Code(s): K59.00 - Constipation, unspecified Status: Acute Assessment and Plan: Patient has a long history of constipation and was taking senna and MiraLax in the past. She has not been eating any solid food for over 1 month since her bypass surgery due to abdominal pain. Since being here in the hospital she has had to 4-5 bowel movements which have been soft and watery in nature; this is most likely secondary to x-ray upper GI water soluble testing this morning. GI was consulted he recommended her restarting her stool softeners once discharged (4) Hypokalemia: Code(s): E87.6 - Hypokalemia Status: Acute Assessment and Plan: Potassium was slightly low at 3.1 on arrival. K 4.0 today, Mag 2.0. Telemetry shows predominantly NSR with occasional PVCs; no other ectopy; asymptomatic. 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 Since her surgery, she has been having issues with eating abdominal discomfort. She has been on a full-dose aspirin daily post-op Continue 325 mg aspirin at discharge (6) Hypertension: Qualifiers: Hypertension type: essential hypertension Qualified Code(s): I10 - Essential (primary) hypertension Code(s): I10 - Essential (primary) hypertension Status: Acute Assessment and Plan: BP 150s sys this morning. Continue home antihypertensives at discharge (7) Hypercholesterolemia: Code(s): E78.00 - Pure hypercholesterolemia, unspecified
[2019-12-19 12:24] LABS: ANCA Screen Negative (Negative); Myeloperoxidase Ab <1.0 AI (<1.0); Proteinase-3 Ab <1.0 AI (<1.0); S cerevisiae Ab (IgA) 12.4 U (<=20.0); S cerevisiae Ab (IgG) 11.2 U (<=20.0)
== END 2019-12-15 12:17 | disposition home or self-care (01) | DRG 386 ==
LOC: ANHED 04:53 → ANH2MED 05:22
PROVIDERS: Internal Medicine Gastroenterology; Physician Assistant; Admitting Provider Internal Medicine; Emergency Provider Emergency Medicine; PCP Family Medicine; Visit Provider Physician Assistant
PROC: 0DJD8ZZ Inspection of Lower Intestinal Tract, Via Natural or Artificial Opening Endoscopic (ICD-10-PCS; CPT 45378; principal; 2019-12-14 11:00)
DX: K50.012 Crohn's disease of small intestine with intestinal obstruction (principal); G45.8 Other transient cerebral ischemic attacks and related syndromes; M19.90 Unspecified osteoarthritis, unspecified site; I25.10 Atherosclerotic heart disease of native coronary artery without angina pectoris; K63.89 Other specified diseases of intestine; I77.9 Disorder of arteries and arterioles, unspecified; K57.30 Diverticulosis of large intestine without perforation or abscess without bleeding; K64.8 Other hemorrhoids; G89.29 Other chronic pain; Z86.73 Personal history of transient ischemic attack (TIA), and cerebral infarction without residual deficits; F32.9 Major depressive disorder, single episode, unspecified; E78.00 Pure hypercholesterolemia, unspecified; I10 Essential (primary) hypertension; I34.0 Nonrheumatic mitral (valve) insufficiency; M81.0 Age-related osteoporosis without current pathological fracture; E11.51 Type 2 diabetes mellitus with diabetic peripheral angiopathy without gangrene; Z87.440 Personal history of urinary (tract) infections; Z98.49 Cataract extraction status, unspecified eye; Z87.891 Personal history of nicotine dependence; K59.00 Constipation, unspecified; E87.6 Hypokalemia
CPT/HCPCS: 36415; 74019; 74177; 74240; 74248; 80048; 80053; 81001; 83036; 83690; 83735; 84132; 85025; 85027; 86021; 86671; 87040; 87086; 93005; 96361; 96365; 96366; 96375; 99285; A9270; J0131; J0696; J1650; J1956; J2270; J2405; J2550; J2704; J3475; J3480; J7030; J7120; Q9967

== ENCOUNTER 2019-12-23 12:44 | Outpatient (CLI) | payer MEDICARE, SELFPAY ==
[2019-12-23 13:03] LABS: Hematocrit 36.8 % (35.0-42.0); Hemoglobin 11.4 g/dL (11.7-13.8); Mean Corpuscular Hemoglobin 29.1 pg (27.0-31.0); Mean Corpuscular Volume 93.9 fL (78.0-102.0); Mean Platelet Volume 10.1 fl (9.2-11.8); Platelet Count Result 230 K/mm3 (150-420); Red Blood Count 3.92 M/mm3 (4.20-5.40); Red Cell Distribution Width 14.9 % (11.6-14.4); White Blood Count 8.9 K/mm3 (4.8-10.8)
[2019-12-23 13:36] LABS: Alanine Aminotransferase 17 U/L (14-59); Albumin Level 3.4 g/dL (3.4-5.0); Alkaline Phosphatase 56 U/L (46-116); Anion Gap 17.6 mmol/L (7-16); Aspartate Amino Transferase 21 U/L (15-37); Bilirubin,Total 0.2 mg/dL (0.00-1.00); Blood Urea Nitrogen 14 mg/dL (7-18); Carbon Dioxide 24 mmol/L (21-32); Chloride 104 mmol/L (98-108); Estimated Glomerular Filt Rate > 60; Glucose 115 mg/dL (70-99); Osmolality Calculated 295 mOsm/kg (285-295); Potassium 3.6 mmol/L (3.5-5.1); Sodium 142 mmol/L (136-145); Total Protein 6.1 g/dL (6.4-8.2)
== END 2019-12-23 12:45 | disposition home or self-care (01) ==
PROVIDERS: PCP Family Medicine; Visit Provider Physician Assistant
DX: Z09 Encounter for follow-up examination after completed treatment for conditions other than malignant neoplasm (principal); K50.00 Crohn's disease of small intestine without complications; E87.6 Hypokalemia
CPT/HCPCS: 36415; 80053; 83735; 85027; 87324

== ENCOUNTER 2020-01-04 13:40 | Outpatient (CLI) | payer MEDICARE, SELFPAY ==
[2020-01-09 21:37] LABS: ANCA Screen Negative (Negative); Myeloperoxidase Ab <1.0 AI (<1.0); Proteinase-3 Ab <1.0 AI (<1.0); S cerevisiae Ab (IgA) 8.5 U (<=20.0); S cerevisiae Ab (IgG) 15.8 U (<=20.0)
== END 2020-01-04 13:41 | disposition home or self-care (01) ==
PROVIDERS: PCP Family Medicine; Visit Provider Internal Medicine Gastroenterology
DX: R10.9 Unspecified abdominal pain (principal); R93.3 Abnormal findings on diagnostic imaging of other parts of digestive tract
CPT/HCPCS: 36415; 86021; 86671

== ENCOUNTER 2020-01-06 07:35 | Outpatient (CLI) | payer MEDICARE, SELFPAY ==
--- NOTE | ~2020-01-06 | XR_ITS ---
EXAMINATION: XR small bowel follow through DATE: 01/06/2020 09:39 INDICATION: Chronic right flank pain. TECHNIQUE: Oral contrast was administered, and a time course of radiographs of the abdomen was obtain ed. Fluoroscopy of the small bowel was performed. Fluoroscopy exposure time was 1.2 minutes. The tota l number of images was 18. COMPARISON: CT abdomen and pelvis 12/10/2019, small bowel series 12/10/2019 FINDINGS: Again seen is a stricture of the distal ileum measuring 6 cm. The distal ileum is mildly dilated prox imal to the stricture. Transit time from the stomach to proximal colon was approximately 45 minutes. IMPRESSION: 1. Persistent stricture of distal ileum with mild dilatation of the more proximal distal ileum, consi stent with partial small bowel obstruction, most likely secondary to Crohn disease. Reviewed, dictated and finalized at location A. IMPRESSION: 1. Persistent stricture of distal ileum with mild dilatation of the more proxim al distal ileum, consistent with partial small bowel obstruction, most likely s econdary to Crohn disease.
== END 2020-01-06 07:36 | disposition home or self-care (01) ==
PROVIDERS: PCP Family Medicine; Visit Provider Internal Medicine Gastroenterology
DX: R93.3 Abnormal findings on diagnostic imaging of other parts of digestive tract (principal); R10.9 Unspecified abdominal pain
CPT/HCPCS: 74250

== ENCOUNTER 2020-01-16 05:52 | Outpatient (CLI) | payer MEDICARE, SELFPAY ==
[2020-01-16 15:31] LABS: SARS-CoV-2 RNA PCR Negative
== END 2020-01-16 05:53 | disposition home or self-care (01) ==
LOC: ANHCOVIDDT 05:53
PROVIDERS: PCP Family Medicine; Visit Provider Surgery
DX: Z01.818 Encounter for other preprocedural examination (principal)
CPT/HCPCS: 87635; U0003

== ENCOUNTER 2020-01-16 08:14 | Outpatient (CLI) | payer MEDICARE, SELFPAY | END 2020-01-16 08:15 | disposition home or self-care (01) | PROVIDERS: PCP Family Medicine; Visit Provider Surgery | DX: Z01.818 Encounter for other preprocedural examination (principal); K56.609 Unspecified intestinal obstruction, unspecified as to partial versus complete obstruction | CPT/HCPCS: 36415; 86850; 86900; 86901 ==

== ENCOUNTER 2020-01-18 13:49 | Inpatient (IN) | payer MEDICARE, SELFPAY ==
[2020-01-13 16:45] VITALS: BMI 26.3
[2020-01-18] VITALS (13 sets, daily range): BP systolic 118–158; BP diastolic 50–85; PULSE 72–94; RESP 16–26; TEMP 36.3–37.1; O2SAT 93–100; BMI 25.5
--- NOTE | 2020-01-18 08:28 | WPDANESEPPF ---
Anes - Initial Pre Proc Eval Procedure: Operation Date: 01/18/20 10:00 Proposed Procedures p Hand Assisted Laparoscopic Right Colectomy - Viet Thurman DO Date/Time: 01/18/20 08:28 Surgeon: Viet Thurman DO Pre Op Diagnosis: Small Bowel Obstruction With Ileal Stricture Patient Data Age: 74 Gender: F Height: 5 ft 7 in Weight: 74 kg Allergies Allergy/AdvReac Type Severity Reaction Status Date / Time coffee (Coffea arabica) Allergy Severe syncope Verified 01/13/20 16:48 naproxen Allergy Intermediate Hives Verified 01/13/20 16:48 Penicillins Allergy Intermediate Hives Verified 01/13/20 16:48 indomethacin Allergy Unknown Nausea Verified 01/13/20 16:48 Sulfa (Sulfonamide Allergy Unknown Hives Verified 01/13/20 16:48 Antibiotics) Sulfonamides Allergy Intermediate Hives Uncoded 01/18/20 08:10 Home Medications Medication Instructions Recorded Confirmed Type hydrochlorothiazide 25 mg tablet 25 mg PO DAILY #90 tablet 10/06/19 01/18/20 Rx cetirizine 10 mg capsule 10 mg PO DAILY cap 10/17/19 01/18/20 History acetaminophen 500 mg capsule 1,000 mg PO Q6H PRN cap 11/11/19 01/18/20 History polyethylene glycol 3350 17 17 gm PO DAILY PRN 11/11/19 01/18/20 History gram/dose oral powder amlodipine 10 mg tablet 10 mg PO DAILY #90 tablet 11/28/19 01/18/20 Rx carvedilol 25 mg tablet 25 mg PO Q12H #180 tablet 11/28/19 01/18/20 Rx lisinopril 10 mg tablet 10 mg PO DAILY #90 tablet 11/28/19 01/18/20 Rx montelukast 10 mg tablet 10 mg PO DAILY #90 tablet 12/06/19 01/18/20 Rx aspirin 325 mg PO DAILY 12/10/19 01/18/20 History atorvastatin 80 mg tablet 80 mg PO DAILY #90 tablet 12/27/19 01/18/20 Rx bupropion HCl 150 mg tablet,12 hr 150 mg PO BID #180 tablet 12/27/19 01/18/20 Rx sustained-release Medical Marijuana 1 tablet PO DIRECTED PRN 01/13/20 01/18/20 History Patient hx anesthesia problems: none Family hx anesthesia problems: none [facility] Surgical History Surgical History H/O local excision of skin lesion H/O vascular surgery 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 History of appendectomy 01/2015 History of carpal tunnel surgery History of cataract surgery History of tubal ligation Family History Family History Mother Heart disease Hypertension Father Hypertension Cerebrovascular accident Other Family history of arthritis Family history of gout Family history of heart disease in male family member before age 55 Social History Social History Smoking status: Former smoker Tobacco type: cigarettes Second hand tobacco smoke exposure: Yes Smoking end date: 09/07/96 Additional smoking assessment comments: 30 pack-year history Alcohol intake: current Substance use: former Substance use type: marijuana Additional living arrangements comments: Lives in [place], [place]. She is and has one child. 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 Questions were solicited and answers provided to the satisfaction of the patient/family/POA.
[2020-01-18] MEDS: LACTATED RINGERS 1,000 ML 30 ML IV CONT ×2 (08:30→12:23)
--- NOTE | 2020-01-18 09:42 | PM.IMHP ---
H&P: HPI History of Present Illness Chief complaint: Small Bowel Obstruction With Ileal Stricture Narrative: Suma Saenz is a 74 year old female who presents with multiple episodes of nausea and vomiting. She has been having difficulty eating for at least the past month and has been mostly on a clear liquid diet. She was found to have a stricture of her distal ileum. Findings are concerning for Crohn's but colonoscopy and other workup has not yielded a definitive diagnosis. She now presents for surgical resection of the involved segment. 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 Trigger finger Urinary tract infection Surgical History Surgical History H/O local excision of skin lesion H/O vascular surgery 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/2019 History of appendectomy 01/2015 History of carpal tunnel surgery History of cataract surgery History of tubal ligation Family History Family History Mother Heart disease Hypertension Father Hypertension Cerebrovascular accident Other Family history of arthritis Family history of gout Family history of heart disease in male family member before age 55 Social History Social History Smoking status: Former smoker Tobacco type: cigarettes Second hand tobacco smoke exposure: Yes Smoking end date: 09/07/96 Additional smoking assessment comments: 30 pack-year history Alcohol intake: current Substance use: former Substance use type: marijuana Additional living arrangements comments: Lives in [place], [place]. She is and has one child. 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 Gender identity (if verbalized by the patient): Female Spiritual care concerns: No Agree to blood products: Yes Meds Home Medications and Allergies Home Medications Medication Instructions Recorded Confirmed Type hydrochlorothiazide 25 mg tablet 25 mg PO DAILY #90 tablet 10/06/19 01/18/20 Rx cetirizine 10 mg capsule 10 mg PO DAILY cap 10/17/19 01/18/20 History acetaminophen 500 mg capsule 1,000 mg PO Q6H PRN cap 11/11/19 01/18/20 History polyethylene glycol 3350 17 17 gm PO DAILY PRN 11/11/19 01/18/20 History gram/dose oral powder amlodipine 10 mg tablet 10 mg PO DAILY #90 tablet 11/28/19 01/18/20 Rx carvedilol 25 mg tablet 25 mg PO Q12H #180 tablet 11/28/19 01/18/20 Rx lisinopril 10 mg tablet 10 mg PO DAILY #90 tablet 11/28/19 01/18/20 Rx montelukast 10 mg tablet 10 mg PO DAILY #90 tablet 12/06/19 01/18/20 Rx aspirin 325 mg PO DAILY 12/10/19 01/18/20 History atorvastatin 80 mg tablet 80 mg PO DAILY #90 tablet 12/27/19 01/18/20 Rx bupropion HCl 150 mg tablet,12 hr 150 mg PO BID #180 tablet 12/27/19 01/18/20 Rx sustained-release Medical Marijuana 1 tablet PO DIRECTED PRN 01/13/20 01/18/20 History Allergies Allergy/AdvReac Type Severity Reaction Status Date / Time coffee (Coffea arabica) Allergy Severe syncope Verified 01/13/20 16:48 naproxen Allergy Intermediate Hives Verified 01/13/20 16:48 Penicillins Allergy Intermediate Hives Verified
[2020-01-18] MEDS: metroNIDAZOLE 500 MG/ISO 100ML 500 MG/100 ML BAG 100 MG IVPB (10:28)
[2020-01-18] MEDS: ceFAZolin 2 GM/D5W 50 ML 2 GM/50 ML BAG IVPB (10:28)
--- NOTE | 2020-01-18 12:16 | PM.PROC ---
Procedure Note - Detailed Date of procedure: 01/18/20 Pre-op diagnosis: Small Bowel Obstruction With Ileal Stricture Post-op diagnosis: same Procedure performed: Hand assisted laparoscopic right hemicolectomy with ileocolic anastomosis Description of procedure: Procedure as well as risks benefits and alternatives were explained to the patient. Written consent was obtained and placed in chart prior to procedure. Patient was brought back to surgical suite. She was placed supine on operating table. Time-out was done to confirm patient procedure. was then intubated by the anesthesia department. her abdomen was prepped and draped in sterile fashion using chlorhexidine prep. A 7 centimeter vertical incision was made just superior to the umbilicus using a 15 blade scalpel. Electrocautery was used for hemostasis and for dissection down through Maximino's fascia. The linea alba was identified, and incised using electrocautery. Two Yandel clamps were used to lift the fascia anteriorly, and the peritoneum was then entered using electrocautery. The abdomen was inspected and no acute abnormalities were noted. The wound protector was placed at this incision, and the GelPort was applied with a 5 millimeter port placed through it. Carbon dioxide insufflation was used to create a pneumoperitoneum. The camera was inserted and the abdominal cavity was inspected. The patient was placed in Trendelenburg position and rotated slightly to the left. A 5 millimeter incision was made in the lower midline and a 5 millimeter trocar was inserted under direct visualization. Another 5 millimeter incision was made in the left lower quadrant, and a 5 millimeter trocar was inserted under direct visualization. A transversus abdominis plane block with Exparel was performed under laparoscopic visualization bilaterally. the strictured segment of the terminal ileum was identified, and approximately 10-15 cm proximal to the ileocecal valve the ileum appeared normal in caliber. The cecum was grasped and carefully retracted medially. Lateral peritoneal attachments to the cecum and ascending colon were carefully taken down using hook electrocautery. The root of the mesentery of the terminal ileum was also mobilized using hook electrocautery. As I dissected the lateral peritoneal attachments of the ascending colon, I identified the duodenum posteriorly and protected it in its location. The hepatic flexure was then taken down using LigaSure bipolar cautery. This appeared to give adequate mobilization of the terminal ileum and cecum to be delivered through the hand port incision for extracorporeal resection and anastomosis.The patient was flattened out in bed, and the cecum was grasped and delivered through the wound protector. The pneumoperitoneum was released. I carefully delivered the entire ascending and proximal transverse colon out through the hand port incision. A window was then created in the mesentery at the terminal ileum Approximately 15 cm proximal to the ileocecal valve, and a SADE 75 millimeter blue load stapler was advanced across the terminal ileum at this point and clamped and fired. Another window was created in the mesocolon of the ascending colon and a SADE 75 mm stapler was clamped across colon at this point and fired. The remaining mesentery attachments were then taken down using bipolar cautery. This freed up the specimen completely, and it was then removed and sent to the lab for pathology. The 2 ends of the bowel were inspected and appeared healthy and viable. They came together in a [id number] fashion without any tension. Enterotomies were then made at the anti mesenteric border using electrocautery. The SADE 75 millimeter blue load stapler was then advanced through each enterotomy and the 2 limbs of the bowel were clamped together in a [id number] fashion and then the stapler was fired to create our anastomosis. The stapler was removed and the anastomosis was insp
--- NOTE | 2020-01-18 13:34 | SUR.PHASEI ---
1330 updated and given room #.
--- NOTE | 2020-01-18 14:54 | PC.NURSE ---
This patient, Suma Saenz, was admitted to 3 [facility] Surg Room 322-01. Patient/family oriented to hospital policies and general routines including ID bracelet, bed and alarms, visiting hours, pain management, procedures, bathroom and other care routines, personal items, smoking policy, room service/diet, and visiting hours. Valuables list has been completed. Information on how to activate the Rapid Response Team has been discussed. Patient/Family are encouraged to report perceived risks to care and to ask questions if they do not understand what they are told or what they should do.
[2020-01-18] MEDS: LACTATED RINGERS 1,000 ML 100 ML IV CONT (15:17)
[2020-01-18] MEDS: ACETAMINOPHEN 500 MG TABLET 1000 MG PO ×2 (15:18→20:21)
[2020-01-18] MEDS: HYDROMORPHONE HCL 1 MG/ML INJ 0.5 MG IV PUSH (15:18)
[2020-01-18] MEDS: HYDROMORPHONE HCL 1 MG/ML INJ IV PUSH ×2 (18:45→22:26)
[2020-01-18] MEDS: carvediloL 25 MG TABLET PO (20:22)
[2020-01-18] MEDS: ENOXAPARIN 30 MG/0.3 ML SYRINGE SUB-Q (20:22)
[2020-01-19] VITALS (8 sets, daily range): BP systolic 124–151; BP diastolic 44–74; PULSE 69–107; RESP 16–18; TEMP 36.3–36.6; O2SAT 91–100
[2020-01-19] MEDS: LACTATED RINGERS 1,000 ML 100 ML IV CONT (01:24)
[2020-01-19] MEDS: ACETAMINOPHEN 500 MG TABLET 1000 MG PO ×2 (02:20→08:25)
[2020-01-19 07:33] LABS: Basophils Percent Auto 0.1 % (0.2-1.2); Hematocrit 35.3 % (37.0-47.0); Hemoglobin 11.4 g/dL (12.0-15.0); Immature Granulocyte Absolute 0.04 K/mm3 (0.00-0.031); Immature Granulocyte Percent A 0.5 % (0-0.5); Lymphocytes Absolute Auto 0.69 K/mm3 (0.9-3.2); Mean Corpuscular HGB Conc 32.3 g/dl (32-36); Mean Corpuscular Hemoglobin 28.7 pg (26-34); Mean Corpuscular Volume 88.9 fl (80-100); Monocytes Absolute Auto 0.5 K/mm3 (0.1-0.6); Monocytes Percent Auto 5.2 % (2.6-8.5); Neutrophils Absolute Auto 7.5 K/mm3 (1.3-6.7); Neutrophils Percent Auto 86.2 % (45.5-73.1); Platelet Count Result 286 k/mm3 (150-375); Red Blood Count 3.97 M/mm3 (4.2-5.4); Red Cell Distribution Width 14.7 % (11.5-14.5); White Blood Count 8.7 K/mm3 (4.5-10.0)
[2020-01-19 07:46] LABS: Blood Urea Nitrogen 9 mg/dL (7-17); Calcium 9.1 mg/dL (8.4-10.2); Carbon Dioxide 24 mmol/L (22-30); Chloride 104 mmol/L (98-107); Estimated CRCL calculation 94 ml/min; Estimated Glomerular Filt Rate > 60; Glucose 126 mg/dL (65-105); Potassium 3.6 mmol/L (3.4-5.0); Sodium 135 mmol/L (137-145)
[2020-01-19] MEDS: ATORVASTATIN 40 MG TABLET 80 MG PO (08:25)
[2020-01-19] MEDS: ENOXAPARIN 30 MG/0.3 ML SYRINGE SUB-Q ×2 (08:25→21:57)
[2020-01-19] MEDS: lisinopriL 10 MG TABLET PO (08:25)
[2020-01-19] MEDS: carvediloL 25 MG TABLET PO ×2 (08:26→21:57)
[2020-01-19] MEDS: AMLODIPINE BESYLATE 5 MG TABLET 10 MG PO (08:26)
[2020-01-19] MEDS: MONTELUKAST SODIUM 10 MG TABLET PO (08:28)
[2020-01-19] MEDS: HYDROMORPHONE HCL 1 MG/ML INJ 0.5 MG IV PUSH (08:48)
--- NOTE | 2020-01-19 09:04 | PM.PNGS ---
Progress Note: A&P Assessment and Plan (1) Stricture of small intestine: Code(s): K56.699 - Other intestinal obstruction unspecified as to partial versus complete obstruction Status: Acute Assessment and Plan: Doing well on POD#1. Advance to full liquids today. Await pathology. Increase activity. (2) Terminal ileitis: Code(s): K50.00 - Crohn's disease of small intestine without complications Status: Acute Subjective Subjective Date/Time Seen: 01/19/20 09:04 Tolerating clears. No flatus or BM yet. Pain controlled. Urinating a lot. Exam GI: Inspection: incision (C/D/I) GI Palp: Yes Tenderness to palpation present (GI) (incisional) Objective Data Vital Signs Vital Signs: Vital Signs - 24 hr 01/18/20 12:25 01/18/20 12:40 01/18/20 12:53 Temperature 37.1 C Pulse Rate 90 89 86 Respiratory Rate 22 H 18 16 Blood Pressure 132/53 L 152/60 H 131/56 L Pulse Oximetry 95 98 99 01/18/20 13:05 01/18/20 13:20 01/18/20 13:35 Temperature Pulse Rate 87 84 87 Respiratory Rate 17 24 H 26 H Blood Pressure 156/57 H 158/55 H 151/55 H Pulse Oximetry 93 95 97 01/18/20 14:00 01/18/20 14:15 01/18/20 14:45 Temperature 36.3 C L 36.4 C 36.4 C L Pulse Rate 89 88 90 Respiratory Rate 16 16 18 Blood Pressure 142/62 H 158/85 H 135/50 L Pulse Oximetry 97 97 97 01/18/20 15:45 01/18/20 20:22 01/18/20 21:42 Temperature 36.5 C 36.4 C Pulse Rate 94 94 87 Respiratory Rate 16 16 Blood Pressure 132/52 L 133/51 L Pulse Oximetry 99 95 01/19/20 02:00 01/19/20 06:00 01/19/20 08:26 Temperature 36.3 C L 36.5 C Pulse Rate 83 76 75 Respiratory Rate 18 18 Blood Pressure 151/74 H 129/53 L Pulse Oximetry 97 94 Intake/Output Intake/Output: Intake & Output 05/11/20 05/12/20 05/13/20 05/14/20 23:59 23:59 23:59 23:59 Intake Total 400 1540 Output Total 0 500 Balance 400 1040 Meds/Results Medications: Active Medications Generic Name Dose Route Start Last Admin Trade Name Freq PRN Reason Stop Dose Admin Acetaminophen 1,000 mg 01/18/20 15:00 01/19/20 08:25 Tylenol Tablet PO 1,000 mg Q6H REID Administration Amlodipine Besylate 10 mg 01/19/20 09:00 01/19/20 08:26 Norvasc PO 10 mg DAILY REID Administration Atorvastatin Calcium 80 mg 01/19/20 09:00 01/19/20 08:25 Lipitor PO 80 mg DAILY REID Administration Bupropion HCl 150 mg 01/18/20 21:00 01/19/20 08:26 Wellbutrin-Sr (12 Hr) PO 150 mg Q12HR REID Administration Carvedilol 25 mg 01/18/20 21:00 01/19/20 08:26 Coreg PO 25 mg Q12HR REID Administration Enoxaparin Sodium 30 mg 01/18/20 21:00 01/19/20 08:25 Lovenox SUB-Q 30 mg Q12HR REID Administration Hydromorphone HCl 1 mg 01/18/20 13:49 01/18/20 22:26 Dilaudid Inj IV PUSH 1 mg Q2H PRN Administration Pain Rated 7-10 Hydromorphone HCl 0.5 mg 01/18/20 13:49 01/19/20 08:48 Dilaudid Inj IV PUSH 0.5 mg Q2H PRN Administration Pain Rated 4-6 Lactated Ringer's 1,000 mls @ 100 mls/hr 01/18/20 13:49 01/19/20 02:21 Lr - Lactated Ringers Iv IV CONT 0 mls/hr .Q10H REID Infusion Lisinopril 10 mg 01/19/20 09:00 01/19/20 08:25 Prinivil PO 10 mg DAILY REID Administration Montelukast Sodium 10 mg 01/19/20 09:00 01/19/20 08:28 Singulair PO 10 mg DAILY REID Administration Ondansetron HCl 4 mg 01/18/20 13:49 Zofran Inj IV PUSH Q4H PRN Nausea And Vomiting Labs Labs: Laboratory Results - last 24 hr 05/14/20 05/14/20 06:48 06:48 WBC 8.7 RBC 3.97 L Hgb 11.4 L Hct 35.3 L MCV 88.9 MCH 28.7 MCHC 32.3 RDW 14.7 H Plt Count 286 MPV 10.0 Immature Gran % (Auto) 0.5 Neut % (Auto) 86.2 H Lymph % (Auto) 8.0 L [place] % (Auto) 5.2 Eos % (Auto) 0.0 Baso % (Auto) 0.1 L Lymph # (Auto) 0.69 L [place] # (Auto) 0.5 Eos # (Auto) 0.0 Baso # (Auto) 0.0 Abs Immat Gran (auto) 0.04 H Absolute Neuts (auto) 7.5 H A
[2020-01-20 06:00] VITALS: BP 134/50; PULSE 69; RESP 16; TEMP 37.2; O2SAT 94
[2020-01-20 06:52] LABS: Hematocrit 32.7 % (37.0-47.0); Hemoglobin 10.5 g/dL (12.0-15.0); Mean Corpuscular HGB Conc 32.1 g/dl (32-36); Mean Corpuscular Hemoglobin 28.5 pg (26-34); Mean Corpuscular Volume 88.9 fl (80-100); Mean Platelet Volume 9.2 fl (7.4-10.4); Platelet Count Result 259 k/mm3 (150-375); Red Blood Count 3.68 M/mm3 (4.2-5.4); Red Cell Distribution Width 15.1 % (11.5-14.5); White Blood Count 7.5 K/mm3 (4.5-10.0)
[2020-01-20 07:09] LABS: Blood Urea Nitrogen 9 mg/dL (7-17); Calcium 8.6 mg/dL (8.4-10.2); Carbon Dioxide 26 mmol/L (22-30); Chloride 106 mmol/L (98-107); Estimated CRCL calculation 80 ml/min; Estimated Glomerular Filt Rate > 60; Glucose 78 mg/dL (65-105); Potassium 3.5 mmol/L (3.4-5.0); Sodium 137 mmol/L (137-145)
[2020-01-20] MEDS: AMLODIPINE BESYLATE 5 MG TABLET 10 MG PO (09:11)
[2020-01-20] MEDS: MONTELUKAST SODIUM 10 MG TABLET PO (09:11)
[2020-01-20] MEDS: lisinopriL 10 MG TABLET PO (09:12)
[2020-01-20] MEDS: ATORVASTATIN 40 MG TABLET 80 MG PO (09:12)
[2020-01-20] MEDS: carvediloL 25 MG TABLET PO ×2 (09:12→20:29)
[2020-01-20] MEDS: ENOXAPARIN 30 MG/0.3 ML SYRINGE SUB-Q ×2 (09:12→20:29)
[2020-01-20 09:27] VITALS: O2SAT 98
[2020-01-20 14:00] VITALS: BP 110/51; PULSE 65; RESP 18; TEMP 36.6; O2SAT 98
--- NOTE | 2020-01-20 14:02 | PM.PNGS ---
Progress Note: A&P Assessment and Plan (1) Stricture of small intestine: Code(s): K56.699 - Other intestinal obstruction unspecified as to partial versus complete obstruction Status: Acute Assessment and Plan: Continues to improve POD#2. Will advance to soft diet today. Encouraged increase activity and walking in the halls. Pathology discussed with the patient in detail, questions answered. (2) Terminal ileitis: Code(s): K50.00 - Crohn's disease of small intestine without complications Status: Acute Additional Plan Discussed plan of care with Dr. Thurman. Subjective Subjective Date/Time Seen: 01/20/20 13:40 Post Op day: 2 (DESIREE right hemicolectomy) Patient reports: no new complaints, pain is less, voiding w/o difficulty, no flatus and no bowel movement Interval history: Patient feeling well today. Still reports abdominal pain but states it has improved today. Reports bloating has improved. Denies nausea or vomiting. Tolerating full liquids. Tolerating activity and walked in the halls today. No other complaints at this time. Pathology shows stricture of terminal ileum with an internal diameter of 1.0 cm and with changes consistent with active crohn's disease. Five benign mesenteric and pericolonic lymph nodes. No evidence of neoplasm. Review of Systems Review of Systems: All systems reviewed & are unremarkable except as noted in HPI and below Constitutional: Constitutional: Denies chills and Denies fever(s) Cardiovascular: Cardiovascular: Reports no additional cardiovascular complaints, Denies chest pain and Denies leg edema Respiratory: Respiratory: Reports no additional respiratory complaints, Denies cough and Denies dyspnea Gastrointestinal: Gastrointestinal: Reports as per HPI and Reports no additional gastrointestinal complaints Genitourinary: Genitourinary: Reports no additional female genitourinary complaints Exam Const: General: comfortable, no acute distress, alert and awake Orientation/consciousness: patient oriented x3 Resp: Effort & Inspection: normal respiratory effort and able to speak in complete sentences Auscultation: clear to auscultation bilaterally Cardio: Rate: regular rate Rhythm: regular rhythm Heart sounds: S1 normal heart sound present and S2 normal heart sound present GI: Inspection: non-distended and incision (C/D/I) GI Palp: Yes Soft to palpation, Yes Tenderness to palpation present (GI) (incisional), No Guarding due to palpation present (GI) and No Hernia present Auscultation: normal bowel sounds Skin: General skin exam: normal color Neuro: General: patient oriented x3, moves all extremities and no focal motor deficits Cranial nerves: Yes CN's II-XII intact bilaterally Speech: normal speech Extrem: General: no calf tenderness and no edema Psych: Mental Status: mental status grossly normal Attitude: cooperative Thought process: Normal thought process present Thought content: Yes Normal thought content present Objective Data Vital Signs Vital Signs: Vital Signs - 24 hr 01/19/20 21:40 01/19/20 21:57 01/19/20 22:00 Temperature 36.6 C Pulse Rate 107 H 70 70 Respiratory Rate 18 16 Blood Pressure 142/51 H Pulse Oximetry 91 96 01/20/20 06:00 01/20/20 09:27 Temperature 37.2 C Pulse Rate 69 Respiratory Rate 16 Blood Pressure 134/50 L Pulse Oximetry 94 98 Intake/Output Intake/Output: Intake & Output 01/17/20 01/18/20 01/19/20 01/20/20 23:59 23:59 23:59 23:59 Intake Total 400 3190 320 Output Total 0 1600 575 Balance 400 1590 -255 Meds/Results Medications: Active Medications Generic Name Dose Route Start Last Admin Trade Name Freq PRN Reason Stop Dose Admin Hydrocodone Bitart/Acetaminophen 1 tab 01/19/20 09:03 01/20/20 12:29 [place] 5-325 Mg PO 1 tab Q4H PRN Administration Pain Rated 4-6 Hydrocodone Bitart/Acetaminophen 1 tab 01/19/20 09:03 01/19/20 17:58 [place] 10-325 Mg PO 1 tab Q4H [place]
[2020-01-20] MEDS: polyethylene glycoL 3350 17 GM POWD.PACK PO (17:36)
[2020-01-20 20:29] VITALS: PULSE 68
[2020-01-20 22:00] VITALS: BP 117/50; PULSE 71; RESP 16; TEMP 36.5; O2SAT 98
[2020-01-21 06:00] VITALS: BP 138/57; PULSE 68; RESP 16; TEMP 36.5; O2SAT 97
[2020-01-21 08:19] VITALS: PULSE 68
[2020-01-21] MEDS: AMLODIPINE BESYLATE 5 MG TABLET 10 MG PO (08:19)
[2020-01-21] MEDS: carvediloL 25 MG TABLET PO (08:19)
[2020-01-21] MEDS: ATORVASTATIN 40 MG TABLET 80 MG PO (08:19)
[2020-01-21] MEDS: lisinopriL 10 MG TABLET PO (08:20)
[2020-01-21] MEDS: MONTELUKAST SODIUM 10 MG TABLET PO (08:20)
[2020-01-21] MEDS: ENOXAPARIN 30 MG/0.3 ML SYRINGE SUB-Q (08:20)
[2020-01-21 08:54] VITALS: O2SAT 96
--- NOTE | 2020-01-21 09:29 | PM.DS ---
DS: Diagnosis Admitting Diagnosis Admitting Diagnosis: Small-bowel obstruction due to Crohn's stricture Discharge Diagnosis (1) Stricture of small intestine: Code(s): K56.699 - Other intestinal obstruction unspecified as to partial versus complete obstruction Status: Chronic Assessment and Plan: patient underwent laparoscopic right colectomy per Dr. Thurman on the day of admission January 18, 2020. Pathology showed distal ileal stricture consistent with Crohn's disease. 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 status Diabetes mellitus complication status: without complication Qualified Code(s): E11.9 - Type 2 diabetes mellitus without complications Code(s): E11.9 - Type 2 diabetes mellitus without complications Status: Chronic (4) Hypertension: Qualifiers: Hypertension type: essential hypertension Qualified Code(s): I10 - Essential (primary) hypertension Code(s): I10 - Essential (primary) hypertension Status: Chronic DS: Summary Time Spent with Patient Time attestation: Total time spent providing and/or coordinating discharge services: The patient had presented with multiple episodes of nausea and vomiting. She had been having trouble eating for at least a month and had really been only on a clear liquid diet. Her GI workup was nondiagnostic for Crohn's disease but was concerning for this. She was known to have a stricture in her distal ileum. She was taken to surgery on January 17 and underwent hand access laparoscopic right colectomy by Dr. Thurman. Pathology did show active Crohn's disease with a stricture in the terminal ileum. The patient did well following surgery. She was started on liquids and slowly advanced her diet. She was able to be discharged on solid food doing well postop day 3. January 21, 2020. Exam GI: Inspection: non-distended and incision ( Healing well) GI Palp: Yes Soft to palpation and Yes Tenderness to palpation present (GI) ( minimal appropriate tenderness) Auscultation: normal bowel sounds DS: Data Data Completed and Pending Completed studies during hospitalization: Pending at discharge 01/18/20 11:31 Surgical [PTH] Routine Discharge Plan Discharge Attending physician on discharge: Wikiera,Viet H. Discharging Clinician: Jonas Multani Anticipated Discharge Date/Time: 01/21/20 09:39 Patient Disposition: Home, Self-Care Activity: may shower, no straining and as tolerated Diet: regular Wound Care Instructions: incision open to air Discharge Instructions: Ambulate 3-4 x per day and as tolerated. No lifting over 15-20lbs. May bathe or shower. Stairs are OK. Patient Instructions: Antibiotic Form Stand Alone Forms: General Discharge Information Follow-up/Referrals: Viet Thurman DO [Physician] - 2 Weeks Perez Alexander DO [Primary Care Provider] - 2 Weeks Discharge Medications: New oxycodone-acetaminophen 5-325 mg tablet 0.5 - 1 tablet PO Q6H PRN (Reason: pain) Qty: 10 RF: 0 Continued Zyrtec 10 mg capsule 10 mg PO DAILY RF: 0 acetaminophen 500 mg capsule 1,000 mg PO Q6H PRN (Reason: Pain) RF: 0 Medical Marijuana 1 tablet PO DIRECTED PRN (Reason: Pain) RF: 0 aspirin 325 mg Tablet 325 mg PO DAILY RF: 0 hydrochlorothiazide 25 mg tablet 25 mg PO DAILY Qty: 90 RF: 0 amlodipine 10 mg tablet 10 mg PO DAILY Qty: 90 RF: 3 lisinopril 10 mg tablet 10 mg PO DAILY Qty: 90 RF: 3 carvedilol 25 mg tablet 25 mg PO Q12H Qty: 180 RF: 3 montelukast 10 mg tablet 10 mg PO DAILY Qty: 90 RF: 3 atorvastatin 80 mg tablet 80 mg PO DAILY Qty: 90 RF: 2 bupropion HCl 150 mg tablet sustained-release 12
== END 2020-01-21 11:20 | disposition home or self-care (01) | DRG 331 ==
LOC: ANH3MEDSUR 01-21 09:40
PROVIDERS: Admitting Provider Surgery; PCP Family Medicine; Visit Provider Surgery
PROC: 0D1E4Z4 Bypass Large Intestine to Cutaneous, Percutaneous Endoscopic Approach (ICD-10-PCS; principal; 2020-01-18 10:00)
DX: K50.012 Crohn's disease of small intestine with intestinal obstruction (principal); E11.9 Type 2 diabetes mellitus without complications; I10 Essential (primary) hypertension; I25.10 Atherosclerotic heart disease of native coronary artery without angina pectoris; I35.1 Nonrheumatic aortic (valve) insufficiency; M19.90 Unspecified osteoarthritis, unspecified site; F32.9 Major depressive disorder, single episode, unspecified; E78.00 Pure hypercholesterolemia, unspecified; E11.51 Type 2 diabetes mellitus with diabetic peripheral angiopathy without gangrene; I34.0 Nonrheumatic mitral (valve) insufficiency; M81.0 Age-related osteoporosis without current pathological fracture; Z87.891 Personal history of nicotine dependence; Z86.73 Personal history of transient ischemic attack (TIA), and cerebral infarction without residual deficits; Z98.42 Cataract extraction status, left eye; Z98.41 Cataract extraction status, right eye
CPT/HCPCS: 36415; 80048; 85025; 85027; 86850; 86900; 86901; 87635; 88307; 97161; 97165; A9270; C1729; C9290; J0131; J0690; J1100; J1170; J1650; J2405; J2704; J2710; J3010; J7030; J7120; U0003

== ENCOUNTER 2020-01-27 12:33 | Outpatient (CLI) | payer MEDICARE, SELFPAY ==
[2020-01-27 12:47] LABS: Add Urine Microscopic? YES; Appearance Urine Sl Cloudy (Clear); Bilirubin Urine Negative (Negative); Blood Urine Negative (Negative); Color Urine Yellow (Yellow); Glucose Urine UA Negative (Negative); Ketones Urine Negative (Negative); Leukocyte Esterase Ur 1+ LEU/UL (Negative); Nitrate Urine Negative (Negative); Protein Urine Trace (Negative); Urobilinogen Urine 0.2 mg/dL (0.2-1.0); pH Urine 6.5 (5.0-8.0)
[2020-01-27 12:51] LABS: RBC Urine 0-2 /hpf (0-2)
[2020-01-27 12:53] LABS: Squamous Epithelial Cell Urine Rare /hpf (Few)
[2020-01-27 12:54] LABS: Bacteria Urine Trace /hpf
== END 2020-01-27 12:34 | disposition home or self-care (01) ==
PROVIDERS: PCP Family Medicine; Visit Provider Family Medicine
DX: R30.0 Dysuria (principal)
CPT/HCPCS: 81001; 87086

== ENCOUNTER 2020-06-18 13:20 | Outpatient (CLI) | payer MEDICARE, SELFPAY ==
[2020-06-18 13:30] LABS: Hematocrit 39.1 % (35.0-42.0); Hemoglobin 12.9 g/dL (11.7-13.8); Mean Corpuscular Hemoglobin 28.5 pg (27.0-31.0); Mean Corpuscular Volume 86.3 fL (78.0-102.0); Mean Platelet Volume 8.7 fl (9.2-11.8); Platelet Count Result 216 K/mm3 (150-420); Red Blood Count 4.53 M/mm3 (4.20-5.40); Red Cell Distribution Width 18.3 % (11.6-14.4); White Blood Count 7.5 K/mm3 (4.8-10.8)
[2020-06-18 14:20] LABS: Uric Acid 5.8 mg/dL (2.6-6.0)
== END 2020-06-18 13:21 | disposition home or self-care (01) ==
LOC: CHSLAB 13:23
PROVIDERS: PCP Family Medicine; Visit Provider Family Medicine
DX: M10.9 Gout, unspecified (principal)
CPT/HCPCS: 36415; 84550; 85027

== ENCOUNTER 2020-07-13 10:08 | Outpatient (CLI) | payer MEDICARE, SELFPAY ==
--- NOTE | ~2020-07-13 | XR_ITS ---
EXAMINATION: XR foot LT min 3V, XR foot RT min 3V DATE: 07/13/2020 10:44 INDICATION: Gout and medial sided bilateral foot pain TECHNIQUE: 1. Dorsoplantar, oblique and lateral views of the left foot were obtained. 2. Dorsoplantar, oblique and lateral views of the right foot were obtained. COMPARISON: None. FINDINGS: Normal alignment at both feet. No fractures. Mild polyarticular osteoarthritis at the bilateral first metatarsophalangeal and multiple bilateral interphalangeal joints. No erosions to suggest gout or ot her inflammatory arthritis. Moderate sized bilateral plantar calcaneal spurs. Approximately 3.4 x 0.9 cm sclerotic lesion in the distal left tibial metadiaphyseal region without endosteal scalloping and with ring and arc-like calcified chondroid matrix consistent enchondroma. IMPRESSION: 1. 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 No erosions to suggest gout or other inflammatory arthritis. 2. Distal left tibial enchondroma. Reviewed, dictated and finalized at location A. [employer] IMPRESSION: 1. 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 No erosions to suggest gout or other inflammatory arthritis. 2. Distal left tibial enchondroma.
== END 2020-07-13 10:09 | disposition home or self-care (01) ==
LOC: CHSIMG 10:10
PROVIDERS: PCP Family Medicine; Visit Provider Podiatrist
DX: M10.071 Idiopathic gout, right ankle and foot (principal); M79.671 Pain in right foot
CPT/HCPCS: 73630

== ENCOUNTER 2021-11-18 14:29 | Outpatient (CLI) | payer MEDICARE, SELFPAY ==
[2021-11-18 14:44] LABS: Hematocrit 41.5 % (35.0-42.0); Mean Corpuscular HGB Conc 33.7 g/dL (32.0-36.0); Mean Corpuscular Hemoglobin 32.9 pg (27.0-31.0); Mean Corpuscular Volume 97.4 fL (78.0-102.0); Mean Platelet Volume 9.1 fl (9.2-11.8); Platelet Count Result 233 K/mm3 (150-420); Red Blood Count 4.26 M/mm3 (4.20-5.40); Red Cell Distribution Width 12.7 % (11.6-14.4); White Blood Count 6.5 K/mm3 (4.8-10.8)
[2021-11-18 15:02] LABS: Alanine Aminotransferase 28 U/L (14-59); Albumin Level 3.9 g/dL (3.4-5.0); Alkaline Phosphatase 87 U/L (46-116); Anion Gap 10 mmol/L (8-16); Aspartate Amino Transferase 16 U/L (15-37); Bilirubin,Total 0.4 mg/dL (0.00-1.00); Blood Urea Nitrogen 24 mg/dL (7-18); Calcium 8.9 mg/dL (8.5-10.1); Carbon Dioxide 28 mmol/L (21-32); Chloride 101 mmol/L (98-108); Estimated Glomerular Filt Rate > 60; Glucose 86 mg/dL (70-99); Osmolality Calculated 291 mOsm/kg (285-295); Potassium 3.8 mmol/L (3.5-5.1); Sodium 139 mmol/L (136-145); Total Protein 7.2 g/dL (6.4-8.2)
[2021-11-18 15:07] LABS: CRP < 0.5 mg/dL (0.0-0.9)
[2021-11-18 16:17] LABS: Erythrocyte Sedimentation Rate 20 mm/hr (0-20)
== END 2021-11-18 14:30 | disposition home or self-care (01) ==
LOC: CHSLAB 14:31
PROVIDERS: PCP Family Medicine; Visit Provider Nurse Practitioner Family
DX: K50.119 Crohn's disease of large intestine with unspecified complications (principal)
CPT/HCPCS: 36415; 80053; 85027; 85652; 86140

== ENCOUNTER 2021-12-03 00:42 | Day surgery (SDC) | payer MEDICARE, SELFPAY ==
[2021-11-21 12:34] VITALS: BMI 30.6
[2021-12-03 10:14] VITALS: BP 148/61; PULSE 68; RESP 20; TEMP 36.3; O2SAT 98; BMI 29.0
[2021-12-03] MEDS: LACTATED RINGERS 1,000 ML 150 ML IV CONT (10:34)
--- NOTE | 2021-12-03 10:42 | WPDANESEPPF ---
Anes - Initial Pre Proc Eval Procedure: Operation Date: 12/03/21 11:15 Proposed Procedures p Colonoscopy - Samson Gonzalez MD Date/Time: 12/03/21 10:42 Surgeon: Samson Gonzalez MD Pre Op Diagnosis: crohn's disease Patient Data Age: 75 Gender: F Height: 1.7 m Weight: 84.2 kg Last Vital Signs Temp 97.4 F L 12/03/21 10:14 Pulse 68 12/03/21 10:14 Resp 20 12/03/21 10:14 BP 148/61 H 12/03/21 10:14 Pulse Ox 98 12/03/21 10:14 Allergies Allergy/AdvReac Type Severity Reaction Status Date / Time naproxen Allergy Intermediate Hives Verified 12/03/21 10:12 Penicillins Allergy Intermediate Hives Verified 12/03/21 10:12 indomethacin Allergy Unknown Nausea Verified 12/03/21 10:12 Sulfa (Sulfonamide Allergy Unknown Hives Verified 12/03/21 10:12 Antibiotics) Sulfonamides Allergy Intermediate Hives Uncoded 12/03/21 10:12 Home Medications Medication Instructions Recorded Confirmed Type cetirizine 10 mg capsule 10 mg PO DAILY cap 10/17/19 11/21/21 History acetaminophen 500 mg capsule 1,000 mg PO Q6H PRN cap 11/11/19 11/21/21 History aspirin 325 mg PO DAILY 12/10/19 11/21/21 History Medical Marijuana 1 tablet PO DIRECTED PRN 01/13/20 11/21/21 History allopurinol 100 mg tablet See Rx Instructions .ROUTE 07/22/21 11/21/21 Rx .COMPLEX #90 tablet atorvastatin 80 mg tablet See Rx Instructions .ROUTE 08/05/21 11/21/21 Rx .COMPLEX #90 tablet amlodipine 10 mg tablet See Rx Instructions .ROUTE 11/05/21 11/21/21 Rx .COMPLEX #90 tablet hydrochlorothiazide 25 mg tablet See Rx Instructions .ROUTE 11/05/21 11/21/21 Rx .COMPLEX #90 tablet lisinopril 10 mg tablet See Rx Instructions .ROUTE 11/05/21 11/21/21 Rx .COMPLEX #90 tablet bupropion HCl [Wellbutrin SR] See Rx Instructions .ROUTE .COMPLEX 11/21/21 11/21/21 History carvedilol [Coreg] See Rx Instructions .ROUTE .COMPLEX 11/21/21 11/21/21 History mesalamine [Delzicol] See Rx Instructions .ROUTE .COMPLEX 11/21/21 11/21/21 History montelukast [Singulair] See Rx Instructions .ROUTE .COMPLEX 11/21/21 11/21/21 History Patient hx anesthesia problems: none Family hx anesthesia problems: none Results Review: All pre-operative results and documents have been reviewed as part of the pre-operative evaluation. 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 Trigger finger Urinary tract infection Surgical History Surgical History H/O local excision of skin lesion H/O vascular surgery History of brachiocephalic artery stenosis s/p vascular bypass at [facility] 10/21/2019 History of appendectomy 01/2015 History of carpal tunnel surgery History of cataract surgery History of hemicolectomy Hand assisted laparoscopic right hemicolectomy with ileocolic anastomosis 01/18/20 History of tubal ligation Family History Family History Mother Heart disease Hypertension Father Hypertension Cerebrovascular accident Other Family history of arthritis Family history of gout Family history of heart disease in male family member before age 55 Gout Social History Social History Years smoked: 25 Smoking status: Former smoker Tobacco type: cigarettes Second hand tobacco smoke exposure: Yes Smoking end date: 09/07/96
--- NOTE | 2021-12-03 10:48 | WPDHPUPDATE1 ---
History and Physical Update Update Date/Time: 12/03/21 10:48 History and Physical has been reviewed, including an updated exam of the patient. There are NO changes in the patient's condition. Risks, benefits, and alternatives have been discussed and questions answered. Patient agrees to proceed with procedure.
[2021-12-03 11:43] VITALS: BP 112/64; PULSE 65; RESP 18; O2SAT 98
[2021-12-03 11:53] VITALS: BP 124/67; PULSE 65; RESP 24; O2SAT 100
[2021-12-03 12:03] VITALS: BP 130/50; PULSE 63; RESP 28; O2SAT 100
== END 2021-12-03 12:16 | disposition home or self-care (01) ==
PROVIDERS: PCP Family Medicine; Visit Provider Internal Medicine Gastroenterology
PROC: 0DJD8ZZ Inspection of Lower Intestinal Tract, Via Natural or Artificial Opening Endoscopic (ICD-10-PCS; CPT 45378; principal; 2021-12-03 11:15)
DX: K50.90 Crohn's disease, unspecified, without complications (principal); K64.8 Other hemorrhoids; K57.30 Diverticulosis of large intestine without perforation or abscess without bleeding; Z98.0 Intestinal bypass and anastomosis status; Z90.49 Acquired absence of other specified parts of digestive tract; I10 Essential (primary) hypertension; I25.10 Atherosclerotic heart disease of native coronary artery without angina pectoris; E11.51 Type 2 diabetes mellitus with diabetic peripheral angiopathy without gangrene; E78.00 Pure hypercholesterolemia, unspecified; M81.0 Age-related osteoporosis without current pathological fracture; I35.1 Nonrheumatic aortic (valve) insufficiency; I34.0 Nonrheumatic mitral (valve) insufficiency; M10.9 Gout, unspecified; Z86.73 Personal history of transient ischemic attack (TIA), and cerebral infarction without residual deficits; Z87.891 Personal history of nicotine dependence; F12.90 Cannabis use, unspecified, uncomplicated
CPT/HCPCS: 45378; J2704; J7120

== ENCOUNTER 2022-02-17 14:36 | Outpatient (CLI) | payer MEDICARE, SELFPAY ==
--- NOTE | ~2022-02-17 | XR_ITS ---
EXAM: XR hip BI 2V w AP pelvis DATE: 02/17/2022 15:16 HISTORY: E11.9 - Type 2 diabetes mellitus without complications . COMPARISON: None available. FINDINGS: Decreased mineralization. No fracture or dislocation. No lytic or blastic lesion. Lower ezekiel mbar degenerative changes. Moderate bilateral superior hip joint space narrowing. No erosion or perio steal change. Scattered vascular calcifications. IMPRESSION: Moderate bilateral hip osteoarthritis. Reviewed, dictated and finalized at location K.
--- NOTE | ~2022-02-17 | XR_ITS ---
EXAM: XR lumbar spine 2-3V DATE: 02/17/2022 15:16 HISTORY: Low back pain/ B/L hip pain x 4 months NKI . COMPARISON: 03/13/2019. FINDINGS: 5 nonrib-bearing lumbar-type vertebral bodies. Decreased mineralization. Multilevel modera te and severe disc space narrowing with vacuum phenomenon at all lumbar levels. Multilevel facet scle rosis and interspinous narrowing. Vertebral body heights are maintained. 3 mm retrolisthesis of L2 on L3. Abdominal aortic calcification without evident aneurysm. IMPRESSION: Grade 1 retrolisthesis of L2 on L3. Multilevel severe degenerative disc disease at all le vels in the lumbar spine. Multilevel lower lumbar facet arthropathy. Reviewed, dictated and finalized at location K. IMPRESSION: Grade 1 retrolisthesis of L2 on L3. Multilevel severe degenerative disc disease at all levels in the lumbar spine. Multilevel lower lumbar facet a rthropathy.
[2022-02-17 14:51] LABS: Hemoglobin 14.1 g/dL (11.7-13.8); Mean Corpuscular HGB Conc 33.6 g/dL (32.0-36.0); Mean Corpuscular Hemoglobin 32.6 pg (27.0-31.0); Platelet Count Result 273 K/mm3 (150-420); Red Blood Count 4.33 M/mm3 (4.20-5.40); Red Cell Distribution Width 13.4 % (11.6-14.4); White Blood Count 6.8 K/mm3 (4.8-10.8)
[2022-02-17 15:06] LABS: Hemoglobin A1C 5.9 % (<5.7)
[2022-02-17 15:12] LABS: Alanine Aminotransferase 30 U/L (14-59); Alkaline Phosphatase 78 U/L (46-116); Anion Gap 6 mmol/L (8-16); Aspartate Amino Transferase 18 U/L (15-37); Bilirubin,Total 0.5 mg/dL (0.00-1.00); Blood Urea Nitrogen 19 mg/dL (7-18); Calcium 9.1 mg/dL (8.5-10.1); Carbon Dioxide 28 mmol/L (21-32); Chloride 102 mmol/L (98-108); Cholesterol 120 mg/dL (0-200); Estimated Glomerular Filt Rate > 60; Glucose 94 mg/dL (70-99); HDL Direct 59 mg/dL (40-60); LDL Cholesterol Calculated 31 mg/dL (<130); Osmolality Calculated 284 mOsm/kg (285-295); Sodium 136 mmol/L (136-145); Total Protein 7.5 g/dL (6.4-8.2); Triglycerides 148 mg/dL (0-150); Uric Acid 5.4 mg/dL (2.6-6.0)
== END 2022-02-17 14:37 | disposition home or self-care (01) ==
LOC: CHSLAB 14:38
PROVIDERS: PCP Family Medicine; Visit Provider Family Medicine
DX: M10.9 Gout, unspecified (principal); E11.9 Type 2 diabetes mellitus without complications
CPT/HCPCS: 36415; 72100; 73521; 80053; 80061; 83036; 84550; 85027

== ENCOUNTER 2022-03-03 16:21 | Outpatient (CLI) | payer MEDICARE, SELFPAY ==
[2022-03-03 16:37] LABS: Add Urine Microscopic? YES; Appearance Urine Clear (Clear); Bilirubin Urine Negative (Negative); Blood Urine Negative (Negative); Color Urine Yellow (Yellow); Glucose Urine UA Negative (Negative); Ketones Urine Negative (Negative); Leukocyte Esterase Ur 1+ (Negative); Nitrate Urine Negative (Negative); Protein Urine Negative (Negative); Specific Grav Ur >= 1.030 (1.010-1.020); Urobilinogen Urine 0.2 mg/dL (0.2-1.0)
[2022-03-03 16:43] LABS: Bacteria Urine 1+ /hpf; RBC Urine None seen /hpf (0-2); Squamous Epithelial Cell Urine Rare /hpf (Few); WBC Urine 16-20 /hpf (0-3)
== END 2022-03-03 16:22 | disposition home or self-care (01) ==
LOC: CHSLAB 16:23
PROVIDERS: PCP Nurse Practitioner Family; Visit Provider Nurse Practitioner Family
DX: R30.0 Dysuria (principal); N39.0 Urinary tract infection, site not specified
CPT/HCPCS: 81001; 87077; 87086; 87088; 87186

== ENCOUNTER 2023-01-23 10:51 | Outpatient (CLI) | payer MEDICARE, SELFPAY ==
[2023-01-23 11:08] LABS: Hematocrit 40.4 % (35.0-42.0); Hemoglobin 13.6 g/dL (11.7-13.8); Mean Corpuscular HGB Conc 33.7 g/dL (32.0-36.0); Mean Corpuscular Hemoglobin 32.5 pg (27.0-31.0); Mean Corpuscular Volume 96.4 fL (78.0-102.0); Mean Platelet Volume 9.1 fl (9.2-11.8); Platelet Count Result 210 K/mm3 (150-420); Red Blood Count 4.19 M/mm3 (4.20-5.40); Red Cell Distribution Width 12.8 % (11.6-14.4); White Blood Count 6.4 K/mm3 (4.8-10.8)
[2023-01-23 11:43] LABS: Alanine Aminotransferase 12 U/L (14-59); Alkaline Phosphatase 65 U/L (46-116); Anion Gap 8 mmol/L (8-16); Aspartate Amino Transferase 17 U/L (15-37); Bilirubin,Total 0.5 mg/dL (0.00-1.00); Blood Urea Nitrogen 16 mg/dL (7-18); Calcium 8.9 mg/dL (8.5-10.1); Carbon Dioxide 28 mmol/L (21-32); Chloride 103 mmol/L (98-108); Estimated Glomerular Filt Rate > 60; Ferritin 72 ng/mL (8-252); Glucose 99 mg/dL (70-99); Iron 89 ug/dL (50-170); Osmolality Calculated 289 mOsm/kg (285-295); Percent Iron Saturation 29 % (12-57); Potassium 4.3 mmol/L (3.5-5.1); Sodium 139 mmol/L (136-145)
[2023-01-23 11:46] LABS: CRP < 0.5 mg/dL (0.0-0.9)
== END 2023-01-23 10:52 | disposition home or self-care (01) ==
LOC: CHSLAB 10:53
PROVIDERS: PCP Nurse Practitioner Family; Visit Provider Nurse Practitioner Family
DX: K50.90 Crohn's disease, unspecified, without complications (principal); Z79.899 Other long term (current) drug therapy
CPT/HCPCS: 36415; 80053; 82728; 83540; 83550; 85027; 86140

== ENCOUNTER 2023-08-19 08:04 | Outpatient (CLI) | payer MEDICARE, SELFPAY ==
[2023-08-19 08:50] LABS: Cholesterol 121 mg/dL (0-200); HDL Direct 65 mg/dL (40-60); LDL Cholesterol Calculated 38 mg/dL (<130); Triglycerides 90 mg/dL (0-150)
== END 2023-08-19 08:05 | disposition home or self-care (01) ==
LOC: CHSLAB 08:06
PROVIDERS: PCP Family Medicine; Visit Provider Internal Medicine Cardiovascular Disease
DX: E78.2 Mixed hyperlipidemia (principal); I65.23 Occlusion and stenosis of bilateral carotid arteries
CPT/HCPCS: 36415; 80061

== ENCOUNTER 2024-03-28 13:41 | Outpatient (CLI) | payer MEDICARE, SELFPAY ==
--- NOTE | ~2024-03-28 | XR_ITS ---
EXAM: XR shoulder LT min 2V DATE: 03/28/2024 14:37 HISTORY: M10.9 - Gout, unspecified . COMPARISON: None available. FINDINGS: Decreased mineralization. No fracture or dislocation. No lytic or blastic lesion. Mild deg enerative change at the AC joint and glenohumeral joint. Partially visualized sternotomy wires. No er osion or periosteal change. Soft tissues within normal limits. IMPRESSION: Mild polyarticular osteoarthritis of the left shoulder. Reviewed, dictated and finalized at location K.
[2024-03-28 14:23] LABS: Uric Acid 5.9 mg/dL (2.6-6.0)
== END 2024-03-28 13:42 | disposition home or self-care (01) ==
PROVIDERS: PCP Family Medicine; Visit Provider Nurse Practitioner Family
DX: M10.9 Gout, unspecified (principal); M19.012 Primary osteoarthritis, left shoulder
CPT/HCPCS: 36415; 73030; 84550

== ENCOUNTER 2024-04-22 12:07 | Outpatient (CLI) | payer MEDICARE, SELFPAY ==
--- NOTE | ~2024-04-22 | US_ITS ---
EXAMINATION: US transvaginal INDICATION: Postmenopausal bleeding Comparison:. No prior studies for comparison. TECHNIQUE: Multiple endovaginal sonographic images of the pelvis performed. FINDINGS: The uterus measures 6.1 x 4.1 x 3.1 cm. The endometrial complex measures 14 mm. The ovaries are not visualized. There is no free fluid in the pelvis. There are no abnormal masses seen on either side. IMPRESSION: 1. Thickened endomtrial complex. The differential diagnosis includes endometrial hyperplasia, polyp a nd carcinoma. Biopsy is recommended. Reviewed, dictated and finalized at location B. IMPRESSION: 1. Thickened endomtrial complex. The differential diagnosis includes endometria l hyperplasia, polyp and carcinoma. Biopsy is recommended.
--- NOTE | ~2024-04-22 | CT_ITS ---
EXAMINATION: CT abdomen pelvis wo con DATE: 04/22/2024 12:42 INDICATION: Lower abdominal pain and hematuria for one week TECHNIQUE: Computed tomography (CT) of the abdomen and pelvis was performed without intravenous contr ast. Automated exposure control and iterative reconstruction technique were employed. Exam dose: 691 .75 mGy-cm total exam DLP. COMPARISON: 12/10/2019 CT abdomen pelvis FINDINGS: The lung bases are clear. Heart size is within normal limits. No pericardial or pleural eff usion. Small sliding hiatal hernia. Multiple stones are noted in the dependent aspect of the gallbladder. No gallbladder wall thickening or pericholecystic fluid or fat stranding. No bile duct or pancreatic duct dilatation. Small hepatic cyst. No hepatic, pancreatic, splenic space-occupying mass lesion is noted otherwise. Normal morphology of the adrenal glands. Subtle pinpoint nonobstructing left renal calculus. No renal mass lesion or urinary tract calculus or hydroureteronephrosis. The urinary bladder, uterus and adnexal areas are relatively unremarkable. There are multiple diverticula of the sigmoid colon; no CT evidence of diverticulitis. Ileocolic anastomosis is noted in the right mid to lower abdomen. No bowel obstruction, bowel wall th ickening, phlegmon or abscess, pneumatosis or intraperitoneal free air is detected. There is extensive calcification but normal caliber of the abdominal aorta and iliac and femoral maribell sen. No intraperitoneal or retroperitoneal or pelvic mass lesion or adenopathy or ascites. Very small fat-containing umbilical hernia. Severe degenerative disc disease throughout the lumbar and lumbosacral spine. No suspicious osteolytic or osteoblastic lesions are noted. IMPRESSION: Ileocolic anastomosis, mid to lower right abdomen No bowel obstruction or inflammatory change or intraperitoneal free air Cholelithiasis Small sliding hiatal hernia Pinpoint nonobstructing renal calculus Reviewed, dictated and finalized at Location A. Reviewed, dictated and finalized at location J.
== END 2024-04-22 12:08 | disposition home or self-care (01) ==
LOC: CHSIMG 12:08
PROVIDERS: PCP Family Medicine; Visit Provider Family Medicine
DX: R31.9 Hematuria, unspecified (principal); K63.89 Other specified diseases of intestine; K80.20 Calculus of gallbladder without cholecystitis without obstruction; K44.9 Diaphragmatic hernia without obstruction or gangrene; N20.0 Calculus of kidney; R93.89 Abnormal findings on diagnostic imaging of other specified body structures
CPT/HCPCS: 74176; 76830

== ENCOUNTER 2024-05-18 02:28 | Day surgery (SDC) | payer MEDICARE, SELFPAY ==
[2024-05-11 15:11] VITALS: BMI 28.3
--- NOTE | 2024-05-11 15:21 | PC.NURSE ---
Report to the Outpatient Waiting Room, entrance under the green pavilion located off [facility], at time __0700_ on date _05/18/24. Planned Procedure Time: 0900_.? Time changes happen often and if your time is changed the preop area will call you the afternoon before. - You and your visitor will be asked to self-screen and do not enter if you have any COVID symptoms. Please call surgeon if you need to reschedule. - A mask is optional within the hospital at this time. Patients may have clear liquids (water, carbonated beverages, clear teas, apple juice) until 3 hours prior to surgery with a maximum of 20 ounces. - No food from midnight until time of surgery and no smoking - Infants may have breast milk until 4 hours before surgery, infant formula 6 hours prior to surgery. - Children will be allowed to drink immediately following surgery.? If applicable, please bring a bottle or sippy cup to assist with drinking. Juice, water, soda, and popsicles are readily available.? For infants on formula, please bring formula the day of surgery.? Pacifiers are allowed. Take only the following medications with a SIP of water on the morning of surgery: ____AMLODIPINE, BUPROPION, CARVEDILOL DO NOT STOP ANY OF YOUR OTHER PRESCRIPTION MEDICATIONS PRIOR TO SURGERY EXCEPT THE FOLLOWING Medications to discontinue per physician VITAMINS AND SUPPLIMENTS Date to take last dose_05/15/24 PT TO STOP ASPIRIN 5 DAYS PRIOR TO SURGERY PER MD Please no make-up, nail dominican, hairspray, perfume, deodorant, or body powder the day of surgery.? No jewelry (including any body piercings) or valuables the day of surgery, leave them at home.? Please take a shower or bath the night before, or the morning of, surgery with an antibacterial soap.? Wear comfortable, loose fitting clothing.? Children are encouraged to wear pajamas. - Jewelry must be removed prior to entering the operating room.? Rings and piercings that are not removed may be cut off. - The hospital will not accept responsibility for valuables.? - Please leave all valuables, including medications, at home the day of surgery. If you are going home after surgery, a licensed driver lifter of sanitation truck must drive you home.? - NO public transportation without another adult if you receive anesthesia. - We recommend that an adult stay with you for 24 hours following discharge. - We also recommend that you do not drive, make important decision, drink alcoholic beverages, or take any drugs that were not prescribed by your health care provider for at least 24 hours after your discharge time. For Pediatric surgeries, we recommend two adults accompany the child home. Follow any additional instructions given to you from your surgeon. Telephone instructions given to __PATIENT __and asked if any additional questions and then verbalized understanding. Patient advised to call surgeon office or pre surgery nurse liaison [phone] if any additional questions.
--- NOTE | 2024-05-18 07:31 | WPDHPUPDATE1 ---
History and Physical Update Update Date/Time: 05/18/24 07:31 History and Physical has been reviewed, including an updated exam of the patient. There are NO changes in the patient's condition. Risks, benefits, and alternatives have been discussed and questions answered. Patient agrees to proceed with procedure.
[2024-05-18] MEDS: ACETAMINOPHEN 500 MG TABLET 1000 MG PO (07:45)
[2024-05-18 08:27] VITALS: BMI 28.3
[2024-05-18 08:29] VITALS: BP 163/57; PULSE 60; RESP 18; TEMP 36.2; O2SAT 100
--- NOTE | 2024-05-18 08:29 | WPDANESEPPF ---
Anes - Initial Pre Proc Eval Procedure: Operation Date: 05/18/24 09:00 Proposed Procedures p Hysteroscopy Dilation and Curettage with Removal of Any Endometrial Lesions, if Necessary - Danny Myrick MD Date/Time: 05/18/24 08:29 Surgeon: Danny Myrick MD Pre Op Diagnosis: post menopausal bleeding,thickened endometrium Patient Data Age: 78 Gender: F Height: 1.7 m Weight: 82 kg Allergies Allergy/AdvReac Type Severity Reaction Status Date / Time naproxen Allergy Intermediate Hives Verified 05/18/24 08:25 Penicillins Allergy Intermediate Hives Verified 05/18/24 08:25 indomethacin Allergy Unknown Nausea Verified 05/18/24 08:25 Sulfa (Sulfonamide Allergy Unknown Hives Verified 05/18/24 08:25 Antibiotics) Sulfonamides Allergy Intermediate Hives Uncoded 05/11/24 15:05 Home Medications Medication Instructions Recorded Confirmed Type cetirizine 10 mg capsule (Zyrtec) 10 mg PO DAILY 10/17/19 05/11/24 History acetaminophen 500 mg capsule 1,000 mg PO Q6H PRN Pain 11/11/19 05/11/24 History aspirin 325 mg tablet 325 mg PO DAILY 12/10/19 05/11/24 History Medical Marijuana 1 tablet PO DIRECTED PRN Pain 01/13/20 05/11/24 History atorvastatin 80 mg tablet See Rx Instructions .Route 05/26/23 05/11/24 Rx .COMPLEX #90 tabs amlodipine 10 mg tablet See Rx Instructions .Route 10/26/23 05/11/24 Rx .COMPLEX #90 tabs carvedilol 25 mg tablet See Rx Instructions .Route 10/26/23 05/11/24 Rx .COMPLEX #180 tabs lisinopril 10 mg tablet See Rx Instructions .Route 10/26/23 05/11/24 Rx .COMPLEX #90 tabs linaclotide 72 mcg capsule See Rx Instructions .Route 11/30/23 05/11/24 Rx (Linzess) .COMPLEX #90 caps montelukast 10 mg tablet See Rx Instructions .Route 01/18/24 05/11/24 Rx .COMPLEX #90 tabs mesalamine 400 mg capsule (with 800 mg PO BID 3 months #360 ea 01/27/24 05/11/24 Rx delayed release tablets inside) (Delzicol) bupropion HCl 150 mg tablet,12 hr See Rx Instructions .Route 04/01/24 05/11/24 Rx sustained-release .COMPLEX #180 tabs calcium carb-ergocalciferol (vit 1 tablet PO DAILY 04/27/24 05/11/24 History D2) 500 mg (1,250 mg)-200 unit tablet d-mannose 500 mg capsule 500 mg PO DAILY 04/27/24 05/11/24 History lactobacillus combination no.4 3 3,000 mmu cells PO DAILY 04/27/24 05/11/24 History billion cell capsule (Probiotic) nitrofurantoin 50 mg capsule 50 mg PO PRN PRN UTI SYMPTOMS 04/27/24 05/11/24 History Patient hx anesthesia problems: none Family hx anesthesia problems: none Results Review: All pre-operative results and documents have been reviewed as part of the pre-operative evaluation. 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
[2024-05-18] MEDS: LACTATED RINGERS 1,000 ML 30 ML IV CONT (08:40)
[2024-05-18] MEDS: LIDOCAINE HCL 1% LOCAL INJ 10 ML VIAL INFILTRATE (08:57)
[2024-05-18] MEDS: ceFAZolin 2 GM/D5W 50 ML 2 GM/50 ML BAG IVPB (08:57)
[2024-05-18 09:19] VITALS: BP 117/37; PULSE 59; RESP 14; O2SAT 97
--- NOTE | 2024-05-18 09:34 | W.PM.PROC2 ---
Procedure Note - Detailed Date of Procedure 05/18/24 Pre-op Diagnosis post menopausal bleeding,thickened endometrium Post-op Diagnosis Same Procedure Performed Diagnostic hysteroscopy and dilation and curettage Surgeon Danny Myrick MD Anesthesia MAC and Local Indications Postmenopausal bleeding and endometrial polyp Findings Uterus sound to 7cm, cavity atrophic no lesions Description of Procedure After informed consent was obtained patient was taken to the operating room and adequate IV sedation was administered. Attention was turned to the vagina. Speculum was inserted. Single-tooth tenaculum placed on the anterior lip of the cervix. 10cc of l% lidocaine was injected at cervicovaginal interface. The uterus was sounded to 7 cm. The cervix was dilated to an 4 Sanchez dilator. The hysteroscope was inserted into the cavity. The findings were a normal atrophic appearing uterine cavity. The hysteroscope was removed. A curettage was performed, scant tissue obtained. The hysteroscope was removed the single-tooth tenaculum was removed hemostasis was noted at the tenaculum site. Sponge count correct. The patient taken to recovery in stable condition. Estimated Blood Loss 5 Drains No Packing No Pathology Yes (endometrial curettings) Complications No immediate complications Condition Stable Disposition Same day [facility] Billing Surgery - Charge Forward: Surgery Billing
[2024-05-18 09:40] VITALS: BP 141/56; PULSE 79; RESP 20
[2024-05-18 09:55] VITALS: BP 154/55; PULSE 60; RESP 20
== END 2024-05-18 10:00 | disposition home or self-care (01) ==
PROVIDERS: PCP Family Medicine; Visit Provider Obstetrics & Gynecology
PROC: 0U5B8ZZ Destruction of Endometrium, Via Natural or Artificial Opening Endoscopic (ICD-10-PCS; CPT 58563; principal; 2024-05-18 09:00)
DX: R93.89 Abnormal findings on diagnostic imaging of other specified body structures (principal); N85.8 Other specified noninflammatory disorders of uterus; I10 Essential (primary) hypertension; E78.00 Pure hypercholesterolemia, unspecified; M81.0 Age-related osteoporosis without current pathological fracture; I25.10 Atherosclerotic heart disease of native coronary artery without angina pectoris; G89.29 Other chronic pain; M54.9 Dorsalgia, unspecified; F32.A Depression, unspecified; G45.8 Other transient cerebral ischemic attacks and related syndromes; F12.90 Cannabis use, unspecified, uncomplicated; Z79.82 Long term (current) use of aspirin; Z98.890 Other specified postprocedural states; Z98.51 Tubal ligation status; Z90.49 Acquired absence of other specified parts of digestive tract; Z95.1 Presence of aortocoronary bypass graft; Z87.891 Personal history of nicotine dependence; Z86.79 Personal history of other diseases of the circulatory system; Z82.49 Family history of ischemic heart disease and other diseases of the circulatory system
CPT/HCPCS: 58555; 88305; A9270; J0690; J2405; J2704; J3010; J7120

== ENCOUNTER 2024-06-23 13:19 | Outpatient (CLI) | payer MEDICARE, SELFPAY ==
[2024-06-23 13:35] LABS: Basophils Absolute Auto 0.02 K/mm3 (0.00-0.10); Basophils Percent Auto 0.4 % (0.0-1.0); Eosinophils Percent Auto 1.8 % (1.0-6.0); Hematocrit 40.2 % (35.0-42.0); Hemoglobin 13.9 g/dL (11.7-13.8); Immature Granulocyte Absolute 0.02 K/mm3 (0.00-0.00); Immature Granulocyte Percent A 0.4 % (0.0-0.0); Lymphocytes Absolute Auto 1.07 K/mm3 (1.10-4.50); Lymphocytes Percent Auto 18.8 % (18.0-42.0); Mean Corpuscular HGB Conc 34.6 g/dL (32-36); Mean Corpuscular Hemoglobin 32.9 pg (27.0-31.0); Mean Corpuscular Volume 95.3 fL (78.0-102.0); Mean Platelet Volume 8.9 fl (9.2-11.8); Monocytes Absolute Auto 0.78 K/mm3 (0.10-0.90); Monocytes Percent Auto 13.7 % (2.0-11.0); Neutrophils Absolute Auto 3.71 K/mm3 (1.70-7.20); Neutrophils Percent Auto 64.9 % (50.0-70.0); Platelet Count Result 194 K/mm3 (150-420); Red Blood Count 4.22 M/mm3 (4.20-5.40); Red Cell Distribution Width 12.7 % (11.6-14.4); White Blood Count 5.7 K/mm3 (4.8-10.8)
[2024-06-23 14:27] LABS: Alanine Aminotransferase 26 U/L (14-59); Albumin Level 3.8 g/dL (3.4-5.0); Alkaline Phosphatase 64 U/L (46-116); Anion Gap 10 mmol/L (4-12); Aspartate Amino Transferase 16 U/L (15-37); Bilirubin,Total 0.6 mg/dL (0.00-1.00); Blood Urea Nitrogen 30 mg/dL (7-18); CRP 0.6 mg/dL (0.0-0.9); Calcium 9.8 mg/dL (8.5-10.1); Carbon Dioxide 27 mmol/L (21-32); Chloride 101 mmol/L (98-108); Estimated Glomerular Filt Rate 55; Glucose 100 mg/dL (70-99); Osmolality Calculated 292 mOsm/kg (285-295); Potassium 4.2 mmol/L (3.5-5.1); Sodium 138 mmol/L (136-145); Total Protein 6.7 g/dL (6.4-8.2)
== END 2024-06-23 13:20 | disposition home or self-care (01) ==
PROVIDERS: PCP Family Medicine; Visit Provider Family Medicine
DX: K50.119 Crohn's disease of large intestine with unspecified complications (principal)
CPT/HCPCS: 36415; 80053; 85025; 86140

== ENCOUNTER 2024-07-11 14:27 | Outpatient (CLI) | payer MEDICARE, SELFPAY ==
--- NOTE | ~2024-07-11 | MM_ITS ---
EXAMINATION: MM screening vladimir BI w judy HISTORY: Screening TECHNIQUE: Craniocaudal and mediolateral oblique 3-D tomosynthesis images were obtained and synthetic 2-D images were generated. CAD analysis was submitted and interpreted. COMPARISON: Comparison to multiple prior studies sequentially, with oldest reviewed study dated 09/2015. BREAST PARENCHYMAL COMPOSITION: Not dense: There are scattered areas of fibroglandular density. FINDINGS: There is no evidence of suspicious mass, calcification, or architectural distortion to sugg est malignancy in either breast. There has been no suspicious interval change. IMPRESSION: 1. No mammographic evidence of malignancy. 2. Recommend routine screening mammography in one year. BI-RADS Category 1: Negative Reviewed, dictated and finalized at location B. R GENERATING PLANT OPERATOR
== END 2024-07-11 14:28 | disposition home or self-care (01) ==
LOC: CHSIMG 14:28
PROVIDERS: PCP Family Medicine; Visit Provider Family Medicine
DX: Z12.31 Encounter for screening mammogram for malignant neoplasm of breast (principal)
CPT/HCPCS: 77063; 77067

== ENCOUNTER 2024-08-18 13:38 | Emergency (ER) | payer MEDICARE, SELFPAY ==
[2024-08-18 13:42] VITALS: BP 156/75; PULSE 72; RESP 18; TEMP 36.6; O2SAT 100
--- NOTE | 2024-08-18 13:45 | ECG_ITS ---
Test Date: 2024-08-18 14:14:22 Measurements Intervals [place] Rate: 70 P: 66 DE: 173 QRS: 61 QRSD: 100 T: 61 QT: 399 QTc: 431 Interpretive Statements SINUS RHYTHM WITH FREQUENT VENTRICULAR PREMATURE COMPLEXES IN A BIGEMINAL PATTERN No previous ECG available for comparison Electronically Signed On 08-18-2024 16:46:34 SENIOR LEAD DEVELOPER by Fabian Mcintosh M.D.
[2024-08-18 14:01] LABS: Basophils Absolute Auto 0.03 K/mm3 (0.00-0.10); Basophils Percent Auto 0.5 % (0.0-1.0); Eosinophils Percent Auto 1.7 % (1.0-6.0); Hematocrit 41.3 % (35.0-42.0); Hemoglobin 14.5 g/dL (11.7-13.8); Immature Granulocyte Absolute 0.02 K/mm3 (0.00-0.00); Immature Granulocyte Percent A 0.3 % (0.0-0.0); Lymphocytes Percent Auto 23.3 % (18.0-42.0); Mean Corpuscular HGB Conc 35.1 g/dL (32-36); Mean Corpuscular Hemoglobin 33.1 pg (27.0-31.0); Mean Corpuscular Volume 94.3 fL (78.0-102.0); Mean Platelet Volume 8.9 fl (9.2-11.8); Monocytes Absolute Auto 0.76 K/mm3 (0.10-0.90); Monocytes Percent Auto 12.6 % (2.0-11.0); Neutrophils Absolute Auto 3.71 K/mm3 (1.70-7.20); Neutrophils Percent Auto 61.6 % (50.0-70.0); Platelet Count Result 232 K/mm3 (150-420); Red Blood Count 4.38 M/mm3 (4.20-5.40); Red Cell Distribution Width 12.6 % (11.6-14.4)
[2024-08-18 14:02] VITALS: PULSE 72
[2024-08-18 14:11] LABS: Add Urine Microscopic? YES; Appearance Urine Clear (Clear); Bilirubin Urine Negative (Negative); Blood Urine Negative (Negative); Color Urine Yellow (Yellow); Glucose Urine UA Negative (Negative); Ketones Urine Negative (Negative); Leukocyte Esterase Ur Negative LEU/UL (Negative); Nitrate Urine Negative (Negative); Protein Urine Trace (Negative); Specific Grav Ur >= 1.030 (1.010-1.020); Urobilinogen Urine 0.2 mg/dL (0.2-1.0)
[2024-08-18 14:19] LABS: Bacteria Urine Trace /hpf; Mucus Urine Few /lpf; RBC Urine None seen /hpf (0-2); Squamous Epithelial Cell Urine Many /hpf (Few); WBC Urine 0-3 /hpf (0-3)
[2024-08-18 14:25] LABS: Alanine Aminotransferase 19 U/L (14-59); Albumin Level 3.7 g/dL (3.4-5.0); Alkaline Phosphatase 69 U/L (46-116); Anion Gap 10 mmol/L (4-12); Aspartate Amino Transferase 13 U/L (15-37); Bilirubin,Total 0.4 mg/dL (0.00-1.00); Blood Urea Nitrogen 16 mg/dL (7-18); Calcium 9.4 mg/dL (8.5-10.1); Carbon Dioxide 26 mmol/L (21-32); Chloride 104 mmol/L (98-108); Estimated CRCL calculation 51 ml/min; Estimated Glomerular Filt Rate > 60; Glucose 109 mg/dL (70-99); Osmolality Calculated 292 mOsm/kg (285-295); Potassium 4.2 mmol/L (3.5-5.1); Sodium 140 mmol/L (136-145); Thyroid Stimulating Hormone 1.24 uIU/mL (0.36-3.74); Troponin I 9.3 ng/L (0.00-60.4)
--- NOTE | 2024-08-18 14:39 | ED_ITS ---
HPI - Arrhythmia/Palpitations General Chief Complaint: Arrhythmia/Palpitations Stated Complaint: arrhythmia Time Seen by Provider: 08/18/24 13:39 Source: patient Mode of arrival: ambulatory Limitations: no limitations History of Present Illness HPI narrative: this is a 78-year-old female with a history of CAD and peripheral vascular disease was sent to the emergency room by her primary care provider with some what he felt on EKG is some skipped beats and bigeminy. Patient is currently asymptomatic with no dizziness no syncope no chest pain no shortness of breath. Patient is afebrile no nausea vomiting. Patient currently is establish with a product support sales representative in [place] but has not seen the new provider yet. Patient is comfortable and not displaying any symptoms of palpitations no chest discomfort. MD complaint: skipped beats Onset (ago): hour(s) Duration: constant Severity: mild Context: occurred during rest Related Data Home Medications ?Medication ?Instructions ?Recorded ?Confirmed ?Last Taken ?Type cetirizine 10 mg capsule (Zyrtec) 10 mg PO DAILY 10/17/19 06/23/24 12/02/21 History acetaminophen 500 mg capsule 1,000 mg PO Q6H PRN Pain 11/11/19 06/23/24 12/02/21 History aspirin 325 mg tablet 325 mg PO DAILY 12/10/19 06/23/24 5 Days Ago History ~05/13/24 Medical Marijuana 1 tablet PO DIRECTED PRN Pain 01/13/20 06/23/24 12/02/21 History calcium carb-ergocalciferol (vit 1 tablet PO DAILY 04/27/24 06/23/24 3 Days Ago History D2) 500 mg (1,250 mg)-200 unit ~05/15/24 tablet d-mannose 500 mg capsule 500 mg PO DAILY 04/27/24 06/23/24 3 Days Ago History ~05/15/24 lactobacillus combination no.4 3 3,000 mmu cells PO DAILY 04/27/24 06/23/24 3 Days Ago History billion cell capsule (Probiotic) ~05/15/24 Allergies Allergy/AdvReac Type Severity Reaction Status Date / Time naproxen Allergy Intermediate Hives Verified 08/18/24 14:03 Penicillins Allergy Intermediate Hives Verified 08/18/24 14:03 indomethacin Allergy Unknown Nausea Verified 08/18/24 14:03 Sulfa (Sulfonamide Allergy Unknown Hives Verified 08/18/24 14:03 Antibiotics) Sulfonamides Allergy Intermediate Hives Uncoded 06/23/24 08:08 Review of Systems 2 Review of Systems: All systems reviewed & are unremarkable except as noted in HPI and below PMFSH Past Medical History Medical History Overweight (BMI 25.0-29.9) Gout Stenosis of brachiocephalic artery Trigger finger Depression Chronic back pain DDD (degenerative disc disease) Osteoporosis Arthritis Post-menopausal Seasonal allergies Urinary tract infection Subclavian steal syndrome Peripheral vascular disease of extremity Peripheral vascular disease Carotid disease, bilateral CVA (cerebral vascular accident) Aortic valve regurgitation CAD (coronary artery disease) Hypercholesterolemia Hypertension Mitral valve regurgitation Surgical History Surgical History History of hemicolectomy Hand assisted laparoscopic right hemicolectomy with ileocolic anastomosis 01/18/20 H/O vascular surgery History of brachiocephalic artery stenosis s/p vascular bypass at [facility] 10/21/2019 H/O local excision of skin lesion History of tubal ligation History of carpal tunnel surgery History of cataract surgery History of appendectomy 01/2015 Family History Family History Mother Heart disease Hypertension Father Hypertension Cerebrovascular accident Heart disease Other Family history of arthritis Family history of gout Family history of heart disease in male family member before age 55 Gout Social History Social History Smoking packs per day: 2 Smoking cigarettes per day: 40.0 Years smoked: 35 Smoking pack-years: 70.00 Smoking status: Former smoker Tobacco type: cigarettes Second hand tobacco smoke exposure: Yes Smoking end date: 09/07/96 Additional smoking assessment comments: STOPPED 2003 Alcohol intake: current Drinks per week: 9 Alcohol use details: Occasional Substance use: current Substance use type: marijuana Other substance usage details: MEDICAL MARIJUANA- DAILY Last use: 01/17/20 Lack of Transportation: No Lack of Food: Never True Current Housing: I Have Housing Concerned About Future Housing: No Difficulty Paying Gas/Electric Bills: No Difficulty Paying for Meds: No Currently Unemployed: No Education: High School Diploma/GED Difficulty w/ Childcare or Family Care: No Living arrangements: with family Additional living arrangements comments: Lives in [place], [place]. She is and has one child. 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 Gender identity (if verbalized by the patient): Female Spiritual care concerns: No Agree to blood products: Yes Exam 2 Const: General: healthy appearing, no acute distress and alert Nutritional Appearance: well nourished Orientation/consciousness: patient oriented x3 Limitations: no limitations HENMT: Head: normal to inspection Eyes: Conjunctivae: conjunctivae normal Pupils: Equal, round and reactive pupils present EOM: EOMs intact bilaterally Direct Ophthalmoscopy: no photophobia Neck: Neck: normal visual inspection Chest: Chest palpation & inspection: normal inspection of the chest Resp: Effort & Inspection: normal respiratory effort Auscultation: clear to auscultation bilaterally Cardio: Rate: regular rate Rhythm: regular rhythm GI: Auscultation: normal bowel sounds : General: Yes bladder normal to palpation Skin: General skin exam: normal color Rashes: no rashes Neuro: General: patient oriented x3, moves all extremities and no meningeal signs Course Course Emergency Course: Patient EKG shows a bigeminy pattern with no ST or T changes with a rate of 70 asymptomatic blood work performed and reviewed shows no acute abnormalities no abnormal potassium or calcium or magnesium TSH is within normal range and troponin is negative. Vitals are stable blood pressure 156/75 with a respiratory rate of 18 satting at 100% on room air. Patient has a product support sales representative in [place] and has not seen her new product support sales representative and advised patient to call their office to make an appointment as soon as possible. Vital Signs Vital signs: Vital Signs Temperature 36.6 C 08/18/24 13:42 Pulse Rate 72 08/18/24 13:42 Respiratory Rate 18 08/18/24 13:42 Blood Pressure 156/75 H 08/18/24 13:42 Pulse Oximetry 100 08/18/24 13:42 Oxygen Delivery Room Air 08/18/24 13:42 Temperature 36.6 C 08/18/24 13:42 Pulse Rate 72 08/18/24 14:02 Respiratory Rate 18 08/18/24 13:42 Blood Pressure 156/75 H 08/18/24 13:42 Pulse Oximetry 100 08/18/24 13:42 Oxygen Delivery Room Air 08/18/24 13:42 MDM - Arrhythmia/Palpitations Lab Data 08/18/24 13:57 08/18/24 13:57 Labs: Lab Results 08/18/24 08/18/24 Range/Units 13:45 13:57 WBC 6.0 (4.8-10.8) K/mm3 RBC 4.38 (4.20-5.40) M/mm3 Hgb 14.5 H (11.7-13.8) g/dL Hct 41.3 (35.0-42.0) % MCV 94.3 (78.0-102.0) fL MCH 33.1 H (27.0-31.0) pg MCHC 35.1 (32-36) g/dL RDW 12.6 (11.6-14.4) % Plt Count 232 (150-420) K/mm3 MPV 8.9 L (9.2-11.8) fl Immature Gran % (Auto) 0.3 H (0.0-0.0) % Neut % (Auto) 61.6 (50.0-70.0) % Lymph % (Auto) 23.3 (18.0-42.0) % Wolfe % (Auto) 12.6 H (2.0-11.0) % Eos % (Auto) 1.7 (1.0-6.0) % Baso % (Auto) 0.5 (0.0-1.0) % Lymph # (Auto) 1.40 (1.10-4.50) K/mm3 Wolfe # (Auto) 0.76 (0.10-0.90) K/mm3 Eos # (Auto) 0.10 (0.02-0.50) K/mm3 Baso # (Auto) 0.03 (0.00-0.10) K/mm3 Abs Immat Gran (auto) 0.02 H (0.00-0.00) K/mm3 Absolute Neuts (auto) 3.71 (1.70-7.20) K/mm3 Absolute Nucleated RBC 0.00 (0.00-0.00) K/mm3 Nucleated RBC % 0.0 (0-0.0) % Sodium 140 (136-145) mmol/L Potassium 4.2 (3.5-5.1) mmol/L Chloride 104 (98-108) mmol/L Carbon Dioxide 26 (21-32) mmol/L Anion Gap 10 (4-12) mmol/L BUN 16 (7-18) mg/dL Creatinine 0.87 (0.55-1.02) mg/dL Estim Creat Clear Calc 51 ml/min Estimated GFR > 60 (59 - ) Glucose 109 H (70-99) mg/dL Calculated Osmolality 292 (285-295) mOsm/kg Calcium 9.4 (8.5-10.1) mg/dL Magnesium 2.0 (1.8-2.4) mg/dL Total Bilirubin 0.4 (0.00-1.00) mg/dL AST 13 L (15-37) U/L ALT 19 (14-59) U/L Alkaline Phosphatase 69 (46-116) U/L Troponin I 9.3 (0.00-60.4) ng/L Total Protein 7.0 (6.4-8.2) g/dL Albumin 3.7 (3.4-5.0) g/dL TSH 1.24 (0.36-3.74) uIU/mL Urine Color Yellow (Yellow) Urine Appearance Clear (Clear) Urine pH 6.0 (5.0-8.0) Ur Specific [place] >= 1.030 H (1.010-1.020) Urine Protein Trace H (Negative) Urine Glucose (UA) Negative (Negative) Urine Ketones Negative (Negative) Ur Blood (Man) Negative (Negative) Urine Nitrate Negative (Negative) Urine Bilirubin Negative (Negative) Urine Urobilinogen 0.2 (0.2-1.0) mg/dL Leukocyte Esterase Rfl Negative (Negative) DRU/UL Urine RBC None seen (0-2) /hpf Urine WBC 0-3 (0-3) /hpf Ur Squamous Epith Cells Many H (Few) /hpf Urine Bacteria Trace (None) /hpf Hyaline Casts 3-4 H (None) /lpf Urine Mucus Few H /lpf Critical Care Time Critical Care Time Critical Care Time: No Discharge Plan Discharge Clinical Impression: Bigeminal rhythm Patient Disposition: Home, Self-Care Condition: Stable Instructions: Antibiotic Form, Heart Palpitations (ED) Additional Instructions: advised to discontinue alcohol continue current medications and follow with product support sales representative as soon as possible further evaluation and treatment. Patient Language: Sami Prescriptions: No Action d-mannose 500 mg capsule 500 mg PO DAILY Probiotic 3 billion cell capsule 3,000 mmu cells PO DAILY Rx Instructions: administer with a meal calcium carbonate-vitamin D2 500 mg(1,250mg) -200 unit tablet 1 tablet PO DAILY mesalamine [Delzicol] 400 mg capsule (with del rel tablets) 800 mg PO BID 90 Days Qty: 360 3RF Zyrtec 10 mg capsule 10 mg PO DAILY bupropion HCl 150 mg tablet sustained-release 12 hr See Rx Instructions .ROUTE .COMPLEX Qty: 180 3RF Dose Instruction: TAKE 1 TABLET BY MOUTH TWICE DAILY Rx Instructions: TAKE 1 TABLET BY MOUTH TWICE DAILY acetaminophen 500 mg capsule 1,000 mg PO Q6H PRN (Reason: Pain) Medical Marijuana 1 tablet PO DIRECTED PRN (Reason: Pain) aspirin 325 mg Tablet 325 mg PO DAILY amlodipine 10 mg tablet See Rx Instructions .ROUTE .COMPLEX Qty: 90 3RF Dose Instruction: TAKE 1 TABLET BY MOUTH DAILY Rx Instructions: TAKE 1 TABLET BY MOUTH DAILY lisinopril 10 mg tablet See Rx Instructions .ROUTE .COMPLEX Qty: 90 3RF Dose Instruction: TAKE 1 TABLET BY MOUTH DAILY Rx Instructions: TAKE 1 TABLET BY MOUTH DAILY carvedilol 25 mg tablet See Rx Instructions .ROUTE .COMPLEX Qty: 180 3RF Dose Instruction: TAKE 1 TABLET BY MOUTH EVERY 12 HOURS WITH FOOD Rx Instructions: TAKE 1 TABLET BY MOUTH EVERY 12 HOURS WITH FOOD Linzess 72 mcg capsule See Rx Instructions .ROUTE .COMPLEX Qty: 90 3RF Dose Instruction: TAKE 1 CAPSULE BY MOUTH DAILY Rx Instructions: TAKE 1 CAPSULE BY MOUTH DAILY atorvastatin 80 mg tablet See Rx Instructions .ROUTE .COMPLEX Qty: 90 3RF Dose Instruction: TAKE 1 TABLET BY MOUTH DAILY Rx Instructions: TAKE 1 TABLET BY MOUTH DAILY fentanyl 12 mcg/hr patch 72 hour 1 patch transdermal Q72H Qty: 10 0RF montelukast 10 mg tablet See Rx Instructions .ROUTE .COMPLEX Qty: 90 3RF Dose Instruction: TAKE 1 TABLET BY MOUTH ONCE DAILY Rx Instructions: TAKE 1 TABLET BY MOUTH ONCE DAILY Follow-up/Referrals: Perez Alexander DO [Primary Care Provider] - Time of Disposition: 14:47
[2024-08-18 14:53] VITALS: BP 147/85; PULSE 75; RESP 14; TEMP 36.6; O2SAT 99
== END 2024-08-18 14:55 | disposition home or self-care (01) ==
PROVIDERS: Emergency Provider Emergency Medicine; PCP Family Medicine
DX: R00.8 Other abnormalities of heart beat (principal); I25.10 Atherosclerotic heart disease of native coronary artery without angina pectoris; I10 Essential (primary) hypertension; Z86.73 Personal history of transient ischemic attack (TIA), and cerebral infarction without residual deficits; Z87.891 Personal history of nicotine dependence
CPT/HCPCS: 36415; 80053; 81001; 83735; 84443; 84484; 85025; 93005; 99284

== ENCOUNTER 2024-09-01 07:41 | Outpatient (CLI) | payer MEDICARE, SELFPAY ==
--- NOTE | ~2024-09-01 | MR_ITS ---
EXAMINATION: MR lumbar spine wo con DATE: 09/01/2024 08:27 INDICATION: Low back pain. Sciatica. TECHNIQUE: Magnetic resonance imaging (MRI) of the lumbar spine was performed without intravenous con trast. Sequences included sagittal T2-weighted FSE, sagittal T2-weighted FS FSE, sagittal T1-weighted FSE, and axial T2-weighted FSE. COMPARISON: Lumbar spine MRI 03/13/2018 FINDINGS: There is 7 degrees dextrocurvature of lumbar spine. There is 3 mm retrolisthesis of L1 on L 2 and L2 on L3. Vertebral body heights are normal. There is severely decreased disc height at L1-L2 a nd L2-L3, mildly decreased disc height at L3-L4, and severely decreased disc height at L4-L5 and L5-S 1. There is endplate remodeling at multiple levels, worst at L1-L2. The distal spinal cord signal int ensity is normal. The conus medullaris is at L1. The following disc levels are specifically discussed : L1-L2: The disc is bulging and has an annular fissure. There is severe bilateral facet joint osteoart hritis. There is mild bilateral neural foraminal stenosis. There is mild central canal stenosis. L2-L3: The disc is bulging and has an annular fissure. There is moderate bilateral facet joint osteoa rthritis. There is mild bilateral neural foraminal stenosis. There is mild central canal stenosis. L3-L4: The disc is bulging and has an annular fissure. There is severe bilateral facet joint osteoart hritis. There is mild bilateral neural foraminal stenosis. There is mild central canal stenosis. L4-L5: The disc is bulging and has an annular fissure. There is severe bilateral facet joint osteoart hritis. There is mild bilateral neural foraminal stenosis. There is mild central canal stenosis. L5-S1: The disc is bulging and has an annular fissure. There is severe bilateral facet joint osteoart hritis. There is mild bilateral neural foraminal stenosis. There is mild central canal stenosis. IMPRESSION: 1. Severe lumbar spondylosis, worsened from 03/13/2018. Reviewed, dictated and finalized at location A. ARATION SUPERVISOR
--- OUTSIDE RECORDS SUMMARY | 2024-09-08 08:18 | XMS_ITS | Encounter Summary ---
Author Organization [facility] Address [facility] [facility]. [place], [place] [address] [place] [address] Care Team Providers Care Electronic Warfare Technical Name Role Phone Unavailable Primary Care Provider Unavailabl e Encounter Details Date Type Department Care Team (Late st Contact Info) Description 09/28/2017 Abstract [facility] [address] [place] [address] Serjio Pasrtana MD [address] [facility] [address] [place] [address] Social History Tobacco Use Types Packs/Day Years Used Date Smoking Tobacco: Never Assessed Comments Unknown Sex and Gender Information Value Date Recorded Sex Assigned at Not on file Legal Sex 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
--- OUTSIDE RECORDS SUMMARY | 2024-09-08 08:18 | XMS_ITS | Clinical Summary ---
Author Organization [facility] Address [address] [place] [address]. 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 Gender Identity Not on file Sexual Orientation Not on file Plan of Treatment Health Maintenance Due Date Last Done Comments Hepatitis C 12/26/1965 DTaP, Tdap and Td Vaccines ( 1 - Tdap) 12/26/1966 Zoster Vaccines (1 of 2) 12/26/1997 Annual Medicare Wellness Visit 12/26/2012 Dexa Scan (General) 12/26/2012 Pneumococcal Vaccine: 65+ Ye ars (1 of 1 - PCV) 12/26/2012 RSV Immunization or 60+ Years (1 - 1-dose 75+ series) 12/26/2022 COVID-19 Vaccine ( - 2023-2 5 season) 2024 Influenza Adult (#1) 2024 Meningococcal Vaccine Aged Out No benji phuc eligible based on patient's age to complete this topic RSV Immunizations Under 20 Months Aged Out No longer eligible based on patient's age to complete this topic Insurance [facility] [place] [address]
--- OUTSIDE RECORDS SUMMARY | 2024-09-08 08:18 | XMS_ITS | Encounter Summary ---
Author Organization [facility] Address [facility]. [place], [place] [address] [place] [address] Care Team Providers Care Telesales Agent Name Role Phone Unavailable Primary Care Provider Unavailabl e Encounter Details Date Type Department Care Team (Late st Contact Info) Description 10/21/2017 Abstract [facility] [address] [place] [address] Serjio Pastrana MD [address] [facility] [address] [place] [address] Social History Tobacco Use Types Packs/Day Years Used Date Smoking Tobacco: Never Assessed Comments Unknown Sex and Gender Information Value Date Recorded Sex Assigned at Not on file Legal Sex Female 5:57 PM 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
--- OUTSIDE RECORDS SUMMARY | 2024-09-08 08:18 | XMS_ITS | Encounter Summary ---
Author Organization [facility] Address [address] [place] [address]. 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
--- OUTSIDE RECORDS SUMMARY | 2024-09-08 08:18 | XMS_ITS | Encounter Summary ---
Author Organization [facility] Address [address] [place] [address]. [place] [address] [place] [address] Care Team Providers Care Water Purification Chemist Name Role Phone Unavailable Primary Care Provider Unavailabl e Encounter Details Date Type Department Care Team (Late st Contact Info) Description 02/05/2020 Orders Only [facility] [address] [facility] [facility] [address] [facility] [place] [address] Danny Israel MD [address] [place] [phone] Social History Tobacco Use Types Packs/Day Years Used Date Smoking Tobacco: Never Assessed Comments Unknown Sex and Gender Information Value Date Recorded Sex Assigned at Not on file Legal Sex Female 5:57 PM 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 Gender Identity Not on file Sexual Orientation Not on file documented as of this encounter Plan of Treatment Not on file documented as of this encounter Results * CULTURE URINE (02/05/2020 1:45 PM CDT) SPEC DESCRIPTION URINE CLEAN CATCH 02/05/2020 6:03 PM CDT [facility] SPECIAL REQUESTS NO SPECIAL REQUEST 02/05/2020 6:03 PM CDT [facility] CULTURE RESULT NO GROWTH (< OR = 1,000 CFU/ML) 02/07/2020 2:26 AM CDT [facility] URINE SPECIMEN OBTAINED BY CLEAN CATCH PROCEDURE / Unknown 02/05/2020 1:45 PM CDT 02/05/2020 6:05 PM CDT us Danny Israel MD MICROBIOLOGY - GENERAL ORDERABL ES Final Result [facility] [address] [place] [address], [place] [phone] [id number] [facility] [address] [place] [address], documented in this encounter Visit Diagnoses Diagnosis Dysuria- Primary documented in this encounter
--- OUTSIDE RECORDS SUMMARY | 2024-09-08 08:18 | XMS_ITS | Encounter Summary ---
Author Organization [facility] Address [address] [place] [address]. [place], [place] [address] [place] [address] Care Team Providers Care Professor Of Early Childhood Education Name Role Phone Unavailable Primary Care Provider Unavailabl e Encounter Details Date Type Department Care Team (Late st Contact Info) Description 10/08/[address] 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
--- OUTSIDE RECORDS SUMMARY | 2024-09-08 08:18 | XMS_ITS | Encounter Summary ---
Author Organization [facility] Address [address] [place] [address]. [place], [place] [address] [place] [address] Care Team Providers Care Veneer Press Operator Name Role Phone Unavailable Primary Care Provider Unavailabl e Encounter Details Date Type Department Care Team (Late st Contact Info) Description 04/23/[address] 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
--- OUTSIDE RECORDS SUMMARY | 2024-09-08 08:18 | XMS_ITS | Encounter Summary ---
Author Organization [facility] Address [address] [place] [address]. [place] [address] [place] [address] Care Team Providers Care Refrigeration Engineering Teacher Name Role Phone Unavailable Primary Care Provider Unavailabl e Encounter Details Date Type Department Care Team (Latest Contact Info) Description 02/05/2020 6:01 PM CDT - 02/05/2020 11:59 PM CDT Hospital Encounter [facility] [facility] [address] [place], [place] [id number] Danny Israel MD [address] [place] [phone] Discharge Disposition: Home or Self Care (Routine Discharge) Social History Tobacco Use Types Packs/Day Years Used Date Smoking Tobacco: Never Assessed Comments Unknown Sex and Gender Information Value Date Recorded Sex Assigned at Not on file Legal Sex Female 5:57 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 Gender Identity Not on file Sexual Orientation Not on file documented as of this encounter Plan of Treatment Not on file documented as of this encounter Procedures Procedure Name Priority Date/Time Associated Diagnosis Comments URINE BACTERIA CULTURE Routine 02/05/2020 1:45 PM CDT Dysuria documented in this encounter Results * CULTURE URINE (02/05/2020 1:45 PM CDT) SPEC DESCRIPTION URINE CLEAN CATCH 02/05/2020 6:03 PM CDT [facility] SPECIAL REQUESTS NO SPECIAL REQUEST 02/05/2020 6:03 PM CDT [facility] CULTURE RESULT NO GROWTH (< OR = 1,000 CFU/ML) 02/07/2020 2:26 AM CDT [facility] URINE SPECIMEN OBTAINED BY CLEAN CATCH PROCEDURE / Unknown 02/05/2020 1:45 PM CDT 02/05/2020 6:05 PM CDT Danny Israel MD MICROBIOLOGY - GENERAL ORDERABL ES Final Result Performing Organization Address City/State/[facility] Co de Phone Number [facility] [address] [place] [address], [place] [phone] [phone] [facility] [place] [address], [place] [phone] documented in this encounter Visit Diagnoses Diagnosis Dysuria documented in this encounter
--- OUTSIDE RECORDS SUMMARY | 2024-09-08 08:18 | XMS_ITS | Encounter Summary ---
Author Organization [facility] Address [address] [place] [address]. [place], [place] [id number] [place] [id number] Care Team Providers Care Civil Service Clerk Name Role Phone Unavailable Primary Care Provider Unavailabl e Encounter Details Date Type Department Care Team (Late st Contact Info) Description 08/13/[address] 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
--- OUTSIDE RECORDS SUMMARY | 2024-09-08 08:20 | XMS_ITS | Encounter Summary ---
Author Organization [facility] Address [address] [place] [address] Care Team Providers Care Clinical Trials Specialist Name Role Phone Zachary Giron MD Unavailable Azar Lara MD Unavailable Perez Alexander DO Primary Care Provider Reason for Referral * Cardiology (Routine) - Closed Specialty Diagnoses / Procedures Referred By Contac t Referred To Contact Diagnoses PVC (premature ventricular contraction) Procedures 24 HR Holter Monitor Briseida Finn MD [address] [place] [address] Phone: tel: fax: [facility] Cardiology [address] [address] [place] [phone] Phone: tel: fax: Referral ID Status Reason Start Date Expiration Date Visits Re quested Visits Authorized [id number] Closed 08/22/2024 09/21/2025 1 1 IT SPECIALIST Reason for Visit * Reason Comments Follow-up Transferring from Dr Lauro Antoine Hx: CVA Aortic valve insufficiency Poor Appetite Encounter Details Date Type Department Care Team (Late st Contact Info) Description 08/22/2024 1:00 PM CREDIT SPECIALIST Office Visit [facility] Cardiology [address] [facility] [address] [place] [phone] Briseida Finn MD [address] [facility] [address] [address] Bilateral carotid artery stenosis (Primary Dx); Mixed hyperlipidemia; Aortic valve insufficiency, etiology of cardiac valve disease unspecified; Primary hypertension; PVC (premature ventricular contraction) Social History Tobacco Use Types Packs/Day Years Used Date Smoking Tobacco: Former Cigarettes Q uit: 2005 Smokeless Tobacco: Current Comments:Occasional nicorete use Alcohol Use Standard Drinks/Week Comments Yes 0 (1 standard drink = 0.6 oz pur e alcohol) AUDIT-C Answer Date Recorded Q1: How often do you have a drink containing alcohol? 4 or more times a week 07/03/2022 Q2: How many drinks containi ng alcohol do you have on a typical day when you are drinking? 1 or 2 Q3: How often do you have si x or more drinks on one occasion? Never 07/03/2022 Comments No Sex and Gender Information Value Date Recorded Sex Assigned at Not on file Legal Sex Female 3:40 AM CREDIT SPECIALIST Gender Identity Not on file Sexual Orientation Not on file documented as of this encounter Last Filed Vital Signs Vital Sign Reading Time Taken Comments Blood Pressure 139/68 08/22/2024 12:48 PM CREDIT SPECIALIST Pulse 64 08/22/2024 12:48 PM CREDIT SPECIALIST Temperature - - Respiratory Rate - - Oxygen Saturation 97% 08/22/2024 12: 48 PM CREDIT SPECIALIST Inhaled Oxygen Concentration - - Weight 79.7 kg (175 lb 12.8 oz) 024 12:48 PM CREDIT SPECIALIST Height 170.2 cm (5' 7 ) 08/22/2024 12:4 8 PM CREDIT SPECIALIST Body Mass Index 27.53 08/22/2024 12:48 PM CREDIT SPECIALIST documented in this encounter Plan of Treatment Pending Results Name Type Priority Associated Diagnoses Date /Time 24 HR Holter Monitor Cardiac Services Routine PVC (premature ventricular contraction) 08/22/2024 1:54 PM CREDIT SPECIALIST Scheduled Orders Name Type Priority Associated Diagnoses Orde r Schedule 24 HR Holter Monitor Cardiac Services Routine PVC (premature ventricular contraction) Expected: 08/22/2024, Expires: 08/22/2025 documented as of this encounter Visit Diagnoses Diagnosis Bilateral carotid artery stenosis- Primary Occlusion and stenosis of carotid artery without mention of cerebral infarction Mixed hyperlipidemia Aortic valve insufficiency, etiology of cardiac valve disease unspecified Primary hypertension Unspecified essential hypertension PVC (premature ventricular contraction) Other premature beats documented in this encounter Care Teams Clinical Trials Specialist Relationship Specialty Start Date End Date Perez Alexander DO [address] [place] [address] PCP - General Family Medicine 07/01/22 Zachary Giron MD Surgeon Vascular Surgery 10/12/19 Azar Lara MD Surgeon Cardiothoracic Surgery 10/27/19 documented as of this encounter
--- OUTSIDE RECORDS SUMMARY | 2024-09-08 08:20 | XMS_ITS | Clinical Summary ---
Author Organization [facility] Address [address] [place] [address] Care Team Providers Care Nuclear Plant Operator Name Role Phone Zachary Giron MD Unavailable [phone] Azar Lara MD Unavailable Perez Alexander DO Primary Care Provider Allergies Active Allergy Reactions Criticality Noted Date Comments Naproxen Rash Medium Nsaids (Non-Steroidal Anti-I nflammatory Drug) Hives Medium 10/10/2019 Penicillins Rash Medium Sulfa (Sulfonamide Antibiotics) Rash Medium Medications cetirizine (ZyrTEC) 10 mg tablet take 1 tablet by oral route every day 0 0 5 Active buPROPion XL (WELLBUTRIN XL) 150 mg 24 hr tablet take 1 tablet by oral route 2 times every day 0 0 5 Active aspirin 325 mg tablet take 1 tablet by oral route every day 0 0 6 Active atorvastatin (LIPITOR) 80 mg tablet take 1 tablet by oral route every day 0 0 6 Active montelukast (SINGULAIR) 10 mg tablet take 1 tablet by oral route every day in the evening 0 0 7 Active hydroCHLOROthiaz izabella (HYDRODIURIL) 25 mg tabletIndication s:hypertension Take 1 tablet (25 mg total) by mouth every morning Active carvediloL (COREG) 25 mg tablet Take 1 tablet (25 mg total) by mouth 2 (two) times a day 60 tablet 11 0 Active acetaminophen 500 mg capsule Take 2 capsules (1,000 mg total) by mouth every 6 (six) hours as needed for pain 30 tablet 0 Active amLODIPine (NORVASC) 10 mg tablet Take 1 tablet (10 mg total) by mouth daily 30 tablet 0 Active lisinopriL (PRINIVIL,ZESTRI L) 10 mg tablet Take 1 tablet (10 mg total) by mouth daily 30 tablet 0 Active allopurinoL (ZYLOPRIM) 100 mg tabletIndication s:prevention of acute gout attack Take 1 tablet (100 mg total) by mouth nightly 1 Active medical cannabis each Take 1 Dose by mouth nightly Active estradioL (ESTRACE) 0.01 % (0.1 mg/gram) vaginal cream Insert 1 g into the vagina 2 (two) times a week Thursday and thursday 2 Active d-mannose powder Take 1 tablet by mouth 2 (two) times a day Active Linzess 72 mcg capsule 3 Active nitrofurantoin monohydrate (MACROBID) 100 mg capsule 3 Active mesalamine (DELZICOL) 400 mg capsule (with del rel tablets) 3 Active calcium carbonate-vitami n D3 1,500 mg (600mg elemental) -800 unit per tablet Take 1 tablet by mouth daily Active oxyCODONE (ROXICODONE) 5 mg immediate release tablet 4 Active fentaNYL (DURAGESIC) 12 mcg/hr 4 Active Active Problems Problem Noted Date Diagnosed Date PVC (premature ventricular contraction) 08/22/20 24 Occlusion and stenosis of right carotid artery 1 Overview (06/19/2022): Added automatically from request for surgery [id number] Assessment & Plan (07/18/2022 7:47 AM PRODUCTION MATERIAL HANDLER): - OR 07/17 for R CEA -dc OU, Q4 NV checks - SBP goal above 120 - Continue aspirin + statin daily - SARAI removed this morning - OOB this morning, walking - Alva discontinued overnight, passed void trial Mixed hyperlipidemia 08/14/2021 Hematoma of chest wall, right, initial encounter 11/01/2019 Assessment & Plan (11/02/2019 5:03 PM PRODUCTION MATERIAL HANDLER): Could be hematoma vs seroma. No plan for intervention at this time per vascular. Nontender. No signs of erythema or warmth. Continues with right scapular pain which is chronic but has worsened since right chest wall swelling. -Monitor chest wall edema and notify vascular for any acute worsening -SBP goal <130 -Liberalize neuro checks to Q12 (monitor for TEMPLETON, confusion, decreased LOC, focal deficits) -ASA, statin daily -Sub Q Heparin daily -Cardiac diet -Antihypertensives as above Assessment & Plan (11/01/2019 2:30 AM PRODUCTION MATERIAL HANDLER): Could be hematoma vs seroma. Minimal pain. Vascular surgery consulted while pt in ED. Discussed plan with vascular surgery resident. No plan for intervention at this time. However, would like to control BP and HR in light of possible hyperperfusion syndrome. Pt arrived to ICU with SBP near 200 on max dose nicardipine. -transition from nicardipine to clevidipine -add home dose coreg 12.5 mg bid, first dose now -SBP goal 110, HR gaol < 70 -Q2 neuro checks to monitor for cerebral hyperperfusion syndrome (monitor for TEMPLETON, confusion, decreased LOC, focal deficits) -OK for ASA and SQ heparin per vascular -OK for diet per vascular 2330: Near max dose clevidipine. Will give additional dose of 12.5 mg coreg and increased scheduled dosing to 25 mg bid. Will also amlodipine 10 mg daily to start in am. UTI (urinary tract infection) 11/01/2019 Assessment & Plan (11/02/2019 5:00 PM PRODUCTION MATERIAL HANDLER): Pt with foul smelling urine upon admission and clean catch UA positive for nitrates ( present on admission). She was started on Ceftriaxone 1 gram Q 24 on 11/01 and was reflexed to culture which came back as + gram negative bacilli and speciated to Proteus Mirabilis. WBC 10.5 (11.2) - Ceftriaxone 1 gram Q 24 for 7-10 days. Assessment & Plan (11/02/2019 5:08 AM PRODUCTION MATERIAL HANDLER): Pt with foul smelling urine on admit. Clean catch UA positive sent this am and positive ( present on admission) pt endorsing frequency and foul smelling urine that developed over the weekend. Ceftriaxone started 11/01 - f/u urine culture and determine duration of treatment ( pt has listed allergies to sulfa/pcn) Assessment & Plan (11/01/2019 8:06 PM PRODUCTION MATERIAL HANDLER): Pt with foul smelling urine on admit. Clean catch UA positive sent this am and positive ( present on admission) pt endorsing frequency and foul smelling urine that developed over the weekend. Ceftriaxone started 11/01 - f/u urine culture and determine duration of treatment ( pt has listed allergies to sulfa/pcn) Assessment & Plan (11/01/2019 2:05 AM PRODUCTION MATERIAL HANDLER): Pt reports burning with urination and RN reports odor associate with urine. Possible UTI. -obtain clean catch urine sample for UA Acute pain 11/01/2019 Assessment & Plan (11/02/2019 3:31 PM PRODUCTION MATERIAL HANDLER): Patient complaining of right scapular pain since surgery. She says she had this pain prior to her surgery as well, it has just gotten worse since the swelling started in right chest. Pt endorsing using medical marijuana at home for pain and was given Marinol 2.5mg during last admission which she states worked. -Continue Marinol 2.5mg BID x 4 doses total -Lidocaine patches to right scapular region daily -Continue PRN tylenol and PRN oxycodone for breakthrough pain Assessment & Plan (11/01/2019 8:07 PM PRODUCTION MATERIAL HANDLER): Pt reports mild right scapular pain since surgery. Also reports mild pain associated with chest swelling. Pt endorsing using medical marijuana at home for pain. Asking for THC pills that she was given last admit ( in review of chart, pt was given low dose marinol and reports that it worked) - schedule marinol 2.5 mg bid x2 days ( Pain/anxiety could be contributing to b/p) -lidocaine patch to back -prn tylenol and prn oxycodone added for breakthrough pain Assessment & Plan (11/01/2019 2:11 AM PRODUCTION MATERIAL HANDLER): Pt reports mild right scapular pain since surgery. Also reports mild pain associated with chest swelling. 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 Neurology consulted during ED visit and recommended b/p control since pt was hypertensive on arrival with sbp up to 180's (baseline 150-160 per patient) Assessment & Plan (11/02/2019 4:49 PM PRODUCTION MATERIAL HANDLER): Neurology signed off and recommends BP control per vascular recommendations. Pt will follow up as outpatient in neurology clinic. Patient has not had any headaches since SBP goal was liberalized to <130. Has been off Clevidipine since yesterday and on current regimen with SBP 105-145. - See HTN - If headaches re- occur, can re evaluate b/p goals at that time. - PRN tylenol for headache and PRN oxycodone for chronic right shoulder pain - Liberalize q 12 hour neuro checks, call vascular if any changes in neuro exam - Renal US today to r/o renal artery stenosis Assessment & Plan (11/02/2019 5:07 AM PRODUCTION MATERIAL HANDLER): Neurology signed off and recommends b/p control per vascular recommendations. Pt will follow up as outpatient in neurology clinic. Pt has not had any additional headaches with b/p goals < 110 so vascular surgery liberalized b/p to < 130 today. Remains headache free. If headaches re- occur, can re evaluate b/p goals at that time. Pt reports baseline sbp 150-160 and was on coreg/hctz/norvasc at home since discharge last week. Cardiology consulted today for ongoing BP management. Agree with continuing current regimen (coreg, amlodipine and HCTZ), weaning clevidipine. If unable to wean clevidipine, recommend adding ACEi/ARB. Also recommend renal doppler to rule out renal artery stenosis. - prn tylenol for headache and prn oxycodone for chronic right shoulder pain - b/p should be optimized for at least the next month with plans to Re- assess at that time - q 2 hour neuro checks, call vascular if any changes in neuro exam - renal ultrasound to r/o renal artery stenosis - increase coreg or add ACEi/ARB if unable to come off clevidipine per cards recs 1830: off clevidipine 0500: Has remained off clevidipine. No TEMPLETON's or other signs of cerebral hyperperfusion. Slept well. Assessment & Plan (11/01/2019 7:56 PM PRODUCTION MATERIAL HANDLER): Neurology signed off and recommends b/p control per vascular recommendations. Pt will follow up as outpatient in neurology clinic. Pt has not had any additional headaches with b/p goals < 110 up until this am and vascular liberalized b/p to < 130 since patient is headache free. If headaches re- occur, can re evaluate b/p goals at that time. Pt reports baseline sbp 150-160 and was on coreg/hctz/norvasc at home since discharge last week. - prn tylenol for headache and prn oxycodone for chronic right shoulder pain - consult cardiology for b/p management as b/p should be optimized for at least the next month with plans to Re- assess at that time. - q 2 hour neuro checks, call vascular if any changes in neuro exam Status post carotid surgery 10/23/2019 Assessment & Plan (10/24/2019 11:45 PM PRODUCTION MATERIAL HANDLER): - S/P 2/14 aorta -> R axillary bypass and asc aorta + R + L common carotid bypass - Continue to monitor closely for signs of cerebral hyperperfusion syndrome - MAP >65 - No signs of headache or focal neurologic deficits Assessment & Plan (10/23/2019 8:06 PM PRODUCTION MATERIAL HANDLER): - S/P 2/14 aorta -> R axillary bypass and asc aorta + R + L common carotid bypass - Continue to monitor closely for signs of cerebral hyperperfusion syndrome - SBP <120 and MAP >65 - No signs of headache or focal neurologic deficits Chronic back pain complicated by acute surgical pain 10/21/2019 Assessment & Plan (10/25/2019 12:01 AM PRODUCTION MATERIAL HANDLER): - APAP sched, transitioned to PO oxy 10/23, dronabinol 2.5 BID AC - Patient uses THC at home for pain, dronabinol significantly improved symptoms. - Lidocaine drip discontinued 10/24 Assessment & Plan (10/23/2019 8:04 PM PRODUCTION MATERIAL HANDLER): - APAP sched, transitioned to PO oxy 10/23, dronabinol 2.5 BID AC, lido gtt - Patient uses THC at home for pain, dronabinol significantly improved symptoms. 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 05/14/2016 Overview (12/17/2017): Description: iatrogenic, multifocal, bihemispheric punctate ischemic strokes causing mild aphasia that has since resolved Stenosis of carotid artery 01/25/2016 Overview (12/17/2017): Description: innominate artery stenosis, left common carotid stenosis, right internal carotid stenosis, left vertebral artery occlusion with distal reconstitution Dizziness 12/03/2015 Overview (12/11/2016): Dizziness Assessment & Plan (10/11/2019 10:08 AM PRODUCTION MATERIAL HANDLER): - CTA head and neck with arch imaging completed, results to be followed by Vascular team - Neurology consult, saw Dr Arredondo as an outpatient. Consulted to rule out source of dizziness/presyncope - BP control with home medications - Fall precautions Orthostatic hypotension 12/03/2015 Overview (12/11/2016): Orthostatic hypotension Aortic valve insufficiency 12/03/2015 Overview (12/11/2016): Nonrheumatic aortic valve insufficiency Adiposity 02/26/2015 Overview (12/11/2016): Obesity Hypertension 02/26/2015 Overview (12/11/2016): HTN (hypertension), benign Assessment & Plan (07/18/2022 7:50 AM PRODUCTION MATERIAL HANDLER): Home regimen: lisinopril 10mg, coreg 25mg BID, amlodipine 10mg, HCTZ 25mg every day -restarted all meds except HCTZ, can restart at dc Assessment & Plan (11/02/2019 5:00 PM PRODUCTION MATERIAL HANDLER): SBP goal < 130 in setting of concern for cerebral hyperperfusion syndrome post re vascularization. Patient has had no further headaches with this BP goal. Patient has been off Clevidipine since 1500 yesterday and currently on Amlodipine 10mg daily, Coreg 25mg BID, and HCTZ 25mg daily and SBP 105-145 overnight per cuff pressure. Cardiology following for BP management - Cardiology consulted - they recommend to add SHAUNA or ARB in setting of needing another agent -Start Lisinopril 5mg PO daily -Continue Amlodipine 10mg daily, Coreg 25mg BID, and HCTZ 25mg daily. -Renal US today per Cardiology to asses for renal artery stenosis. -Discontinue arterial line Assessment & Plan (11/01/2019 7:59 PM PRODUCTION MATERIAL HANDLER): SBP goal < 130 in setting of concern for cerebral hyperperfusion syndrome post re vascularization. Neurology signed off and recommends b/p control per vascular recommendations. Pt will follow up as outpatient in neurology clinic. Pt has not had any additional headaches with b/p goals < 110 up until this am and vascular liberalized b/p to < 130 since patient is headache free. If headaches re- occur, can re evaluate b/p goals at that time. Pt reports baseline sbp 150-160 and was on coreg/hctz/norvasc at home since discharge last week. - prn tylenol for headache and prn oxycodone for chronic right shoulder pain - consult cardiology for b/p management as b/p should be optimized for at least the next month with plans to Re- assess at that time. clevidipine gtt being weaned off with addition of prn hydralazine 10mg q4h prn, home hctz resumed and currently on coreg 25mg bid. If blood pressure an issue, can increase coreg dose to 37.5mg bid or 50 mg bid. Cardiology following and agree with current treatment regimen and request renal artery duplex to assess for renal artery stenosis. 1700: clevidipine gtt almost off, c/o pain likely also contributing to b/p, pt endorsing using medical marijuana at home and asking for the THC pills here, reporting she was given them last admission and it helped. In review of prior chart, pt was on low dose marinol. See pain for details . 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 Overview (12/11/2016): Tobacco abuse, in remission Carotid artery disease 02/26/2015 Overview (12/11/2016): Carotid arterial disease Resolved Problems Problem Noted Date Diagnosed Date Resolved Date Encounter for surgical after care following surgery on the circulatory system 08/17/20232023 Right carotid artery occlusion 07/17/2022 07/18/2022 Acute hypoxemic respiratory failure 10/23/2019 11/01/2019 Assessment & Plan (10/25/2019 12:02 AM PRODUCTION MATERIAL HANDLER): - Extubated on 10/21, transitioned to NC - Placed on Optiflow 10/23 (40L and 40% FiO2), goal SpO2 >92, weaned to NC on 10/24 Continue mobility and PAP treatments as necessary Assessment & Plan (10/23/2019 8:07 PM PRODUCTION MATERIAL HANDLER): - Extubated on 10/21, transitioned to NC - Placed on Optiflow 10/23 (40L and 40% FiO2), goal SpO2 >92 Syncope and collapse 04/05/2019 020 Labile hypertension 10/17/2016 08/22/20 24 Overview (12/17/2017): Description: elevated due to permissive hypertension Assessment & Plan (10/25/2019 12:01 AM PRODUCTION MATERIAL HANDLER): Currently hypotensive but initially hypertensive in OR. Will likely need restarting of his anti-hypertensives once acute post surgical hemodynamics stabilize. - While standing 10/22 afternoon, became hpotensive -> started on levo transiently, sat down and off pressors and back on nicardipine - 10/23 Increased coreg to 25 BID for SBP <120 Assessment & Plan (10/23/2019 8:04 PM PRODUCTION MATERIAL HANDLER): Currently hypotensive but initially hypertensive in OR. Will likely need restarting of his anti-hypertensives once acute post surgical hemodynamics stabilize. - While standing 10/22 afternoon, became hpotensive -> started on levo transiently, sat down and off pressors and back on nicardipine - Currently on nicardipine gtt @ 0.5 on 10/22 P.M. for SBP <120 - 10/23 Increased coreg to 25 BID for SBP <120 Assessment & Plan (10/22/2019 8:13 PM PRODUCTION MATERIAL HANDLER): Currently hypotensive but initially hypertensive in OR. Will likely need restarting of his anti-hypertensives once acute post surgical hemodynamics stabilize. - While standing 10/22 afternoon, became hpotensive -> started on levo transiently, sat down and off pressors and back on nicardipine - Currently on nicardipine gtt @ 0.5 on 10/22 P.M. for SBP <120 Assessment & Plan (10/22/2019 12:52 AM PRODUCTION MATERIAL HANDLER): Currently hypotensive but initially hypertensive in OR. Will likely need restarting of his anti-hypertensives once acute post surgical hemodynamics stabilize. - Currently on nicardipine gtt @ 2.5 on 15 A.M. for SBP <120 Assessment & Plan (10/21/2019 8:49 PM PRODUCTION MATERIAL HANDLER): Currently hypotensive but initially hypertensive in OR. Will likely need restarting of his anti-hypertensives once acute post surgical hemodynamics stabilize. Mitral valve insufficiency 04/23/2015 1 10/23/2023 Overview (12/12/2016): Mitral regurgitation Heart murmur 02/26/2015 08/22/2024 Overview (12/11/2016): Murmur, cardiac Dyslipidemia 02/26/2015 08/14/2021 Overview (12/11/2016): Dyslipidemia Encounters Date Type Department Care Team Description 08/22/2024 1:45 PM PRODUCTION MATERIAL HANDLER Ancillary Procedure [facility] [address] [place] [address] PVC (premature ventricular contraction) 08/22/2024 1:00 PM PRODUCTION MATERIAL HANDLER Office Visit [facility] [address] [place] [address] Briseida Finn MD Bilateral carotid artery stenosis (Primary Dx); Mixed hyperlipidemia; Aortic valve insufficiency, etiology of cardiac valve disease unspecified; Primary hypertension; PVC (premature ventricular contraction) 08/15/2024 11:30 AM PRODUCTION MATERIAL HANDLER Office Visit [facility] [address] [place] [address] [place] [address] Marilynn Norris NP Encounter for surgical aftercare following surgery on the circulatory system (Primary Dx) 08/15/2024 11:00 AM PRODUCTION MATERIAL HANDLER Ancillary Procedure [facility] Lab at the [facility] [address] [place] [address] [place] [address] Encounter for surgical aftercare following surgery on the circulatory system from Last 3 Months Immunizations Name Administration Dates Next Due Influenza, Unspecified 06/07/2019 Surgical History Surgery Date Site/Laterality Comments CARDIAC CATHETERIZATION 10/18/2019 CARPAL TUNNEL RELEASE 11/13/2005 1. Surgical release of compression of the median nerve, right wrist; surgical release of tenosynovitis of the right ring finger; and surgical release of tenosynovitis of the right middle finger. CATARACT EXTRACTION EXTRACAPSULAR W/ INTRAOCULAR LENS IMPLANTATION 09/07/2017 - 09/06/2018 Bilateral APPENDECTOMY 09/07/2010 - 09/06/2011 BOWEL RESECTION 09/07/2019 - 09/06/2020 CAROTID ENDARTERECTOMY 09/07/2021 - 09/06/2022 Right w/patch Medical History Medical History Date Comments Degenerative disc disease at L5-S1 level Carotid stenosis Syncope 10/18/2019 Orthostatic hypotension Anxiety Depression Back pain PONV (postoperative nausea a nd vomiting) nausea relieved with IV medi cations Family History Medical History Relation Name Comments Heart disease Father Family history of cardiac disorder - (Added by TW Conv) Stroke Father Stroke; Heart disease Mother Heart disease; /Family history of cardiac disorder - (Added by TW Conv) Anesthesia problems Neg Hx Malig Hypertension Neg Hx Malig Hyperthermia Neg Hx Pseudochol deficiency Neg Hx Relation Name Status Comments Father (Age 88) CVA, Heart Dz Maternal Grandmother (Age 48 y/o ) [place] Mother (Age 88) CAD, s/p M I, enlarged heart Other Matern al Aunts & Uncles x8 (ages 55-62 y/o) with heart disease Social History Tobacco Use Types Packs/Day Years Used Date Smoking Tobacco: Former Cigarettes Q uit: 2004 Smokeless Tobacco: Current Tobacco Cessation:Ready to Q uit: Not Asked; Counseling Given: Not Answered Comments:Occasional nicorete use Alcohol Use Standard Drinks/Week [...] on file Legal Sex Female 3:40 AM PRODUCTION MATERIAL HANDLER Gender Identity Not on file Sexual Orientation Not on file Obstetrics History Comments Post menopause Last Filed Vital Signs Vital Sign Reading Time Taken Comments Blood Pressure 139/68 08/22/2024 12:48 PM PRODUCTION MATERIAL HANDLER Pulse 64 08/22/2024 12:48 PM PRODUCTION MATERIAL HANDLER Temperature 36.5 ??C (97.7 ??F) 07/18/2022 8:00 AM CS T Respiratory Rate 18 07/18/2022 8:00 AM PRODUCTION MATERIAL HANDLER Oxygen Saturation 97% 08/22/2024 12: 48 PM PRODUCTION MATERIAL HANDLER Inhaled Oxygen Concentration - - Weight 79.7 kg (175 lb 12.8 oz) 024 12:48 PM PRODUCTION MATERIAL HANDLER Height 170.2 cm (5' 7 ) 08/22/2024 12:4 8 PM PRODUCTION MATERIAL HANDLER Body Mass Index 27.53 08/22/2024 12:48 PM PRODUCTION MATERIAL HANDLER Plan of Treatment Health Maintenance Due Date Last Done Comments Depression Screening 1945 Hepatitis C Screening 1945 Osteoporosis Screening-Bone Density Scan 1945 DTaP/Tdap/Td Vaccine (1 - Tdap) 12/26/1958 Hepatitis B Screening 12/26/1965 Pneumococcal vaccine 65+ (1 of 1 - PCV) 12/26/2012 Well Visit 65+ 12/26/2012 Zoster Vaccine (2 of 3) 07/02/2014 05/07/2014 Fall Risk Assessment 07/18/2023 07/18/2022 Covid-19 Vaccine (5 - 2023-2 5 season) 2024 01/07/2022, 05/01/2021, 10/30/2020, Additional history exists Influenza Vaccine (#1) 2024 , 06/11/2020, 06/07/2019, Additional history exists Medical Devices Implanted Type [employer] Officer Device Identifier Shelf Expiration Date Model / Serial / Lot [employer] Vascu-Guard 8x.8cm Peripheral Patch Vascular Bovine Pericardium [id number] - [id number] Implanted:Qty: 1 on 07/17/2022 by Zachary Giron MD at [facility] Endoprosthesi s Right: Carotid [facility] [id number] 03/13/2027 [id number] / / [id number] [employer] [id number] 6mm 80cm 60cm Stretch Removable Ring Line Peripheral Thin Wall - [id number] - [id number] Implanted:Qty: 1 on 10/21/2019 by Zachary Giron MD at [facility] Graft Right: Subclavian [employer] [id number] 02/23/2024 [id number] / [id number] / Quanlight [id number] Hemashield [place] 8mm 30cm Woven Smooth Needle Passage Suture - [id number] - [id number] Implanted:Qty: 1 on 10/21/2019 by Azar Lara MD at [facility] Graft N/A: Subclavian [id number] 07/07/2024 [id number] / [id number] / [id number] [employer] [id number] Gelsoft Plus Vascutek 14/7mm 45cm Main Leg Bore Reduced - [id number] - [id number] Implanted:Qty: 1 on 10/21/2019 by Azar Lara MD at [facility] Graft N/A: Subclavian [employer] [id number] 04/06/2022 [id number] / [id number] / [id number] [employer] [id number] Device Closure Angio-Seal Vip [place]-Plus Polyglyd L70 Cm Od6 Fr Odsec.035 In Vascular - [id number] - [id number] Implanted:Qty: 1 on 10/18/2019 by Jd Sinha MD at [facility] [employer] 05/07/2020 [id number] / [id number] / Explanted Type Area School Services Officer Device Identifier Shelf Expiration Date Model / Serial / Lot Inte[employer] Juan [id number] Sundt 4-5mm 5.5-6.3mm 2.2-3.1mm 30cm Temporary External Loop Soft - [id number] Explanted:Qty: 1 on 07/17/2022 by Zachary Giron MD at [facility] Endoprosthesis Right: Carotid [employer] Juan [id number] 11/04/2026 [id number] / / [id number] Procedures Procedure Name Priority Date/Time Associated Diagnosis Comments US ARTERIAL DOPPLER UPPER EXTREMITY BILATERAL Schedule Routine, Read Routine (OP Routine) 08/15/2024 11:35 AM PRODUCTION MATERIAL HANDLER Encounter for surgical aftercare following surgery on the circulatory system US CAROTIDS DUPLEX BILATERAL Schedule Routine, Read Routine (OP Routine) 08/15/2024 11:35 AM PRODUCTION MATERIAL HANDLER Encounter for surgical aftercare following surgery on the circulatory system from Last 3 Months Results * US Arterial Doppler Upper Extremity Bilateral (08/15/2024 11:35 AM PRODUCTION MATERIAL HANDLER) Anatomical Region Laterality Modality Vascular Bilateral Ultrasound 08/15/2024 11:0 7 AM PRODUCTION MATERIAL HANDLER Narrative 08/17/2024 12:38 AM PRODUCTION MATERIAL HANDLER [facility] - Department of Vascular Surgery, Vascular Laboratory [address] [place] [id number] Upper Extremity Arterial Doppler Ultrasound Report Patient Name: PAIGE SAENZ : 1945 Study Date: 08/15/2024 11:07:00 AM Gender: F Tech: Emmie Diann Maritza, [facility] Location: [facility] Provider: MARILYNN NORRIS Quality: Adequate Order Provider: MARILYNN NORRIS ?? PROCEDURES: Vascular Report: Bilateral upper extremity arterial Doppler exam with digit plethysmography and pressure. ?? INDICATIONS: Z48.812 Encounter for surgical aftercare following surgery on the circulatory system. ?? MEASUREMENTS: Right ?Value ? Left ? Value Rt Brachial Pressure ? 126 mmHg ?Lt Brachial Pressure ? 160 mmHg Rt Radial Pressure ? 135 mmHg ?Lt Radial Pressure ? 171 mmHg Rt Ulnar Pressure ?135 mmHg ?Lt Ulnar Pressure ?175 mmHg Rt Radial A/Arm Index ?0.84 ?Lt Radial A/Arm Index ?1.07 Rt Ulnar A/Arm Index ? 0.84 ?Lt Ulnar A/Arm Index ? 1.09 Rt 2nd Digit Pressure ?107 mmHg ?Lt 2nd Digit Pressure ?157 mmHg Rt Digit 2/Arm Index ? 0.67 ?Lt Digit 2/Arm Index ? 0.98 Right ?Value ? Left ? Value - ?? FINDINGS: Performing Vocal Music Instructor: Diann Olea RVT, RDMS. Right Axillary Artery: The axillary artery is multiphasic. Right Brachial Artery: The brachial artery is monophasic. Right Radial Artery: The radial artery is monophasic. Right Ulnar Artery: The ulnar artery is monophasic. Left Axillary Artery: The axillary artery is multiphasic. Left Brachial Artery: The brachial artery is multiphasic. Left Radial Artery: The radial artery is multiphasic. Left Ulnar Artery: The ulnar artery is multiphasic. Digits: Normal right digit pressure and waveform. Normal left digit pressure and waveform. ?? CONCLUSIONS: 1. Right Forearm/Arm Index is consistent with moderate peripheral arterial disease - claudication. For reference, KIERA 0.5 -0.89 is consistent with claudication. 2. Left Forearm/Arm Index is consistent with normal findings. For reference, normal KIERA is > 0.9 - 1.3. 3. Bilateral Digit Arm Indices are normal, > or = 0.6. 4. There is evidence of right upper extremity arterial insufficiency at the level of brachial artery. 5. Left upper extremity arterial Doppler reveals multiphasic waveforms and a normal forearm arm index on the left. No evidence of significant left upper extremity arterial occlusive disease. ?? HISTORY: Carotid artery disease, HTN, HLD, brachiocephalic artery stenosis, hx tobacco dependence 07-17-2022 right carotid endarterectomy 10-21-2019 aorta to right axillary artery bypass, ascending aorta to right common carotid artery and left common carotid artery bifurcated bypass. ?? PREVIOUS STUDIES: No previous studies for comparison. ?? DISCLAIMER: The study images and the final report will be retained in the patient chart by the Vascular Laboratory for the legally required time period. This chart constitutes the legal record of any testing performed. ?? ATTESTATION: I have reviewed and interpreted the pertinent images and measurements of this study. I attest to the conclusions in the final report that is provided above. Electronically Signed By: Zachary Giron MD FACS 08/17/2024 12:37:56 AM PRODUCTION MATERIAL HANDLER Procedure Note Zachary Giron MD - 08/17/2024 [facility] - Department of Vascular Surgery,Vascular Laboratory [address] [place] [address] Upper Extremity Arterial Doppler Ultrasound Report Patient Name: PAIGE SAENZ : 1945 Study Date: 08/15/2024 11:07:00 AM Gender: F Tech: Diann Olea Maritza, [facility] Location: [facility] Provider: MARILYNN NORRIS Quality: Adequate Order Provider: MARILYNN NORRIS PROCEDURES: Vascular Report: Bilateral upper extremity arterial Doppler exam with digit plethysmographyand pressure. INDICATIONS: Z48.812 Encounter for surgical aftercare following surgery on thecirculatory system. MEASUREMENTS: Right Value Left Value Rt Brachial Pressure 126 mmHg Lt Brachial Pressure 160 mmHg Rt Radial Pressure 135 mmHg Lt Radial Pressure 171 mmHg Rt Ulnar Pressure 135 mmHg Lt Ulnar Pressure 175 mmHg Rt Radial A/Arm Index 0.84 Lt Radial A/Arm Index 1.07 Rt Ulnar A/Arm Index 0.84 Lt Ulnar A/Arm Index 1.09 Rt 2nd Digit Pressure 107 mmHg Lt 2nd Digit Pressure 157 mmHg Rt Digit 2/Arm Index 0.67 Lt Digit 2/Arm Index 0.98 Right Value Left Value - FINDINGS: Performing Vocal Music Instructor: Diann Olea RVT, RDMS. Right Axillary Artery: The axillary artery is multiphasic. Right Brachial Artery: The brachial artery is monophasic. Right Radial Artery: The radial artery is monophasic. Right Ulnar Artery: The ulnar artery is monophasic. Left Axillary Artery: The axillary artery is multiphasic. Left Brachial Artery: The brachial artery is multiphasic. Left Radial Artery: The radial artery is multiphasic. Left Ulnar Artery: The ulnar artery is multiphasic. Digits: Normal right digit pressure and waveform. Normal left digit pressure andwaveform. CONCLUSIONS: 1. Right Forearm/Arm Index is consistent with moderate peripheral arterialdisease - claudication. For reference, KIERA 0.5 -0.89 is consistent withclaudication. 2. Left Forearm/Arm Index is consistent with normal findings. Forreference, normal KIERA is > 0.9 - 1.3. 3. Bilateral Digit Arm Indices are normal, > or = 0.6. 4. There is evidence of right upper extremity arterial insufficiency atthe level of brachial artery. 5. Left upper extremity arterial Doppler reveals multiphasic waveforms abby normal forearm arm index on the left. No evidence of significant left upperextremity arterial occlusive disease. HISTORY: Carotid artery disease, HTN, HLD, brachiocephalic artery stenosis, hxtobacco dependence 07-17-2022 right carotid endarterectomy 10-21-2019 aorta to right axillary artery bypass, ascending aorta to rightcommon carotid artery and left common carotid artery bifurcated bypass. PREVIOUS STUDIES: No previous studies for comparison. DISCLAIMER: The study images and the final report will be retained in the patientchart by the Vascular Laboratory for the legally required time period. This chartconstitutes the legal record of any testing performed. ATTESTATION: I have reviewed and interpreted the pertinent images and measurements ofthis study. I attest to the conclusions in the final report that is provided above. Electronically Signed By: Zachary Giron MD [facility] 08/17/2024 12:37:56 AM PRODUCTION MATERIAL HANDLER us Marilynn Norris KNIFER UP IMG US PROCEDURES Final Result * US Carotids Duplex Bilateral (08/15/2024 11:35 AM PRODUCTION MATERIAL HANDLER) Anatomical Region Laterality Modality Vascular Bilateral Ultrasound 08/15/2024 10:4 8 AM PRODUCTION MATERIAL HANDLER Narrative 08/17/2024 12:46 AM PRODUCTION MATERIAL HANDLER [facility] - Department of Vascular Surgery, Vascular Laboratory [address] [place] [address] Carotid Duplex Ultrasound Report Patient Name: PAIGE SAENZ : 1945 (78y 7m) Study Date: 08/15/2024 10:48:44 AM Gender: F Tech: Location: [facility] Ref Provider: MARILYNN NORRIS Quality: Adequate Order Provider: MARILYNN NORRIS ?? PROCEDURES: Carotid Report: Carotid duplex examination of the extracranial arteries was performed using 2D, color and spectral Doppler. ?? INDICATIONS: Z48.812 Encounter for surgical aftercare following surgery on the circulatory system. ?? MEASUREMENTS: Right ?Value ? Left ? Value RT Prox CCA PSV ?118 cm/sec ?LT Prox CCA PSV ?127 cm/sec RT Prox CCA EDV ?11 cm/sec ? LT Prox CCA EDV ?14 cm/sec RT Distal CCA PSV ?71 cm/sec ? LT Distal CCA PSV ?75 cm/sec RT Distal CCA EDV ?10 cm/sec ? LT Distal CCA EDV ?12 cm/sec RT Prox ICA PSV ?64 cm/sec ? LT Prox ICA PSV ?182 cm/sec RT Prox ICA EDV ?8 cm/sec ?LT Prox ICA EDV ?15 cm/sec RT Mid ICA PSV ? 99 cm/sec ? LT Mid ICA PSV ? 109 cm/sec RT Mid ICA EDV ? 20 cm/sec ? LT Mid ICA EDV ? 19 cm/sec RT Distal ICA PSV ?89 cm/sec ? LT Distal ICA PSV ?81 cm/sec RT Distal ICA EDV ?17 cm/sec ? LT Distal ICA EDV ?15 cm/sec RT ECA Prx PSV ? 103 cm/sec ?LT ECA Prx PSV ? 289 cm/sec RT ICA/CCA ? 1.39 ratio ?LT ICA/CCA ? 2.43 ratio RT VERT PSV ?27 cm/sec ? LT VERT PSV ?53 cm/sec - ?? FINDINGS: Performing Vocal Music Instructor: Diann Olea RVT, RDMS. Rt Common Carotid Artery: There is intimal thickening but no significant atherosclerotic plaque noted in the right common carotid artery. Rt Internal Carotid Artery: Duplex imaging of the right internal carotid artery is within normal limits without evidence for atherosclerotic disease. Atherosclerotic changes of the right internal carotid artery without hemodynamically significant Doppler findings. <50% stenosis. Rt External Carotid Artery: The right external carotid artery is patent without evidence of atherosclerotic plaque. Rt Vertebral Artery: Bidirectional flow in the right vertebral artery maybe consistent with ipsilateral subclavian artery stenosis or occlusion. (Known). Lt Common Carotid Artery: The plaque in the left CCA appears to be calcified and smooth (in the distal CCA). Lt Internal Carotid Artery: The plaque in the left internal carotid artery appears to be calcified and irregular. Significant atherosclerotic changes of the left internal carotid artery with elevated peak systolic velocity and velocity ratio, as above. 50-69% stenosis per PSV and velocity ratio. <50% stenosis per EDV. Lt External Carotid Artery: Patent left external carotid artery with evidence of atherosclerotic disease present. Lt Vertebral Artery: The left vertebral artery is patent with antegrade flow. ?? CONCLUSIONS: 1. Normal right internal carotid artery, no evidence of significant plaque. 2. The left internal carotid artery disease is consistent with a 50-69% stenosis per PSV and velocity ratio. <50% stenosis per end diastolic velocity. 3. Bidirectional flow noted in the right vertebral artery may be consistent with ipsilateral subclavian artery stenosis or occlusion. (Known). 4. Normal, antegrade flow is noted in the left vertebral artery. 5. No evidence of hemodynamically significant stenosis in the common carotid artery bilaterally. ?? HISTORY: Carotid artery disease, HTN, HLD, brachiocephalic artery stenosis, hx tobacco dependence 07-17-2022 right carotid endarterectomy 10-21-2019 aorta to right axillary artery bypass, ascending aorta to right common carotid artery and left common carotid artery bifurcated bypass. ?? PREVIOUS STUDIES: Previous carotid ultrasound on 08-17-2023. Normal right ICA, <50% left ICA, bidirectional right vert, normal left vert. ?? DISCLAIMER: The study images and the final report will be retained in the patient chart by the Vascular Laboratory for the legally required time period. This chart constitutes the legal record of any testing performed. ?? ATTESTATION: I have reviewed and interpreted the pertinent images and measurements of this study. I attest to the conclusions in the final report that is provided above. Electronically Signed By: Zachary Giron MD FACS 08/17/2024 12:45:34 AM PRODUCTION MATERIAL HANDLER Procedure Note Zachary Giron MD - 08/17/2024 [facility] - Department of Vascular Surgery,Vascular Laboratory [address] [place] [address] Carotid Duplex Ultrasound Report Patient Name: PAIGE SAENZ : 1945 (78y 7m) Study Date: 08/15/2024 10:48:44 AM Gender: F Tech: Location: [facility] Provider: MARILYNN NORRIS Quality: Adequate Order Provider: MARILYNN NORRIS PROCEDURES: Carotid Report: Carotid duplex examination of the extracranial arterieswas performed using 2D, color and spectral Doppler. INDICATIONS: Z48.812 Encounter for surgical aftercare following surgery on thecirculatory system. MEASUREMENTS: Right Value Left Value RT Prox CCA PSV 118 cm/sec LT Prox CCA PSV 127 cm/sec RT Prox CCA EDV 11 cm/sec LT Prox CCA EDV 14 cm/sec RT Distal CCA PSV 71 cm/sec LT Distal CCA PSV 75 cm/sec RT Distal CCA EDV 10 cm/sec LT Distal CCA EDV 12 cm/sec RT Prox ICA PSV 64 cm/sec LT Prox ICA PSV 182 cm/sec RT Prox ICA EDV 8 cm/sec LT Prox ICA EDV 15 cm/sec RT Mid ICA PSV 99 cm/sec LT Mid ICA PSV 109 cm/sec RT Mid ICA EDV 20 cm/sec LT Mid ICA EDV 19 cm/sec RT Distal ICA PSV 89 cm/sec LT Distal ICA PSV 81 cm/sec RT Distal ICA EDV 17 cm/sec LT Distal ICA EDV 15 cm/sec RT ECA Prx PSV 103 cm/sec LT ECA Prx PSV 289 cm/sec RT ICA/CCA 1.39 ratio LT ICA/CCA 2.43 ratio RT VERT PSV 27 cm/sec LT VERT PSV 53 cm/sec - FINDINGS: Performing Vocal Music Instructor: Diann Olea RVT, SELENE. Rt Common Carotid Artery: There is intimal thickening but no significantatherosclerotic plaque noted in the right common carotid artery. Rt Internal Carotid Artery: Duplex imaging of the right internal carotidartery is within normal limits without evidence for atherosclerotic disease.Atherosclerotic changes of the right internal carotid artery without hemodynamically significantDoppler findings. <50% stenosis. Rt External Carotid Artery: The right external carotid artery is patentwithout evidence of atherosclerotic plaque. Rt Vertebral Artery: Bidirectional flow in the right vertebral arterymaybe consistent with ipsilateral subclavian artery stenosis or occlusion. (Known). Lt Common Carotid Artery: The plaque in the left CCA appears to becalcified and smooth (in the distal CCA). Lt Internal Carotid Artery: The plaque in the left internal carotid arteryappears to be calcified and irregular. Significant atherosclerotic changes of the leftinternal carotid artery with elevated peak systolic velocity and velocity ratio, as above.50-69% stenosis per PSV and velocity ratio. <50% stenosis per EDV. Lt External Carotid Artery: Patent left external carotid artery withevidence of atherosclerotic disease present. Lt Vertebral Artery: The left vertebral artery is patent with antegradeflow. CONCLUSIONS: 1. Normal right internal carotid artery, no evidence of significantplaque. 2. The left internal carotid artery disease is consistent with a 50-69%stenosis per PSV and velocity ratio. <50% stenosis per end diastolic velocity. 3. Bidirectional flow noted in the right vertebral artery may beconsistent with ipsilateral subclavian artery stenosis or occlusion. (Known). 4. Normal, antegrade flow is noted in the left vertebral artery. 5. No evidence of hemodynamically significant stenosis in the commoncarotid artery bilaterally. HISTORY: Carotid artery disease, HTN, HLD, brachiocephalic artery stenosis, hxtobacco dependence 07-17-2022 right carotid endarterectomy 10-21-2019 aorta to right axillary artery bypass, ascending aorta to rightcommon carotid artery and left common carotid artery bifurcated bypass. PREVIOUS STUDIES: Previous carotid ultrasound on 08-17-2023. Normal right ICA, <50% leftICA, bidirectional right vert, normal left vert. DISCLAIMER: The study images and the final report will be retained in the patientchart by the Vascular Laboratory for the legally required time period. This chartconstitutes the legal record of any testing performed. ATTESTATION: I have reviewed and interpreted the pertinent images and measurements ofthis study. I attest to the conclusions in the final report that is provided above. Electronically Signed By: Zachary Giron MD [facility] 08/17/2024 12:45:34 AM PRODUCTION MATERIAL HANDLER Marilynn Norris NP [facility] PROCEDURES Final Result from Last 3 Months Insurance [employer]ICARE [facility] MEDICARE Address: [address] [address] [place] [address] MEDICARE [employer] MED[employer] [place] [id number] Advance Directives For more information, please contact: [phone] Documents on File Type Date Recorded Patient Information Assurance Expl anation ADVANCE DIRECTIVE 10/18/2019 3:54 PM POWER OF TICKETING CLERK-MEDICAL * Full Code (Latest Code Status on File) Date Activated Date Inactivated Comments 07/17/2022 3:46 PM 07/18/2022 5:07 PM * Full Code Date Activated Date Inactivated Comments 10/31/2019 6:45 PM 11/04/2019 5:26 PM * Full Code Date Activated Date Inactivated Comments 10/21/2019 5:38 PM 10/27/2019 5:10 PM * Full Code Date Activated Date Inactivated Comments 10/21/2019 5:25 PM 10/21/2019 5:38 PM * Full Code Date Activated Date Inactivated Comments 10/17/2019 10:33 PM 10/21/2019 5:25 PM Care Teams Nuclear Plant Operator Relationship Specialty Start Date End Date Perez Alexander DO [address] [place] [address] PCP - General Family Medicine 07/01/22 Zachary Giron MD Surgeon Vascular Surgery 10/12/19 Azar Lara MD Surgeon Cardiothoracic Surgery 10/27/19
--- OUTSIDE RECORDS SUMMARY | 2024-09-08 08:20 | XMS_ITS | Referral Summary ---
Author Organization [facility] Address [address] [place] [address] Care Team Providers Care Meter Setter Name Role Phone Zachary Giron MD Unavailable [phone] Azar Lara MD Unavailable Perez Alexander DO Primary Care Provider Encounters Date Type Department Care Team Description 08/22/2024 1:45 PM PAEDIATRIC THORACIC PHYSICIAN Ancillary Procedure [facility] Medical [facility] Cardiology [address] [place] [phone] PVC (premature ventricular contraction) 08/22/2024 1:00 PM PAEDIATRIC THORACIC PHYSICIAN Office Visit [facility] Cardiology [address] [place] [address] Briseida Finn MD Bilateral carotid artery stenosis (Primary Dx); Mixed hyperlipidemia; Aortic valve insufficiency, etiology of cardiac valve disease unspecified; Primary hypertension; PVC (premature ventricular contraction) 08/15/2024 11:30 AM PAEDIATRIC THORACIC PHYSICIAN Office Visit [facility] Surgery [address] 8[address] [place] [address] Marilynn Norris NP Encounter for surgical aftercare following surgery on the circulatory system (Primary Dx) 08/15/2024 11:00 AM PAEDIATRIC THORACIC PHYSICIAN Ancillary Procedure [facility] Vascular Lab at the [facility] [address] 8[address] [place] [address] Encounter for surgical aftercare following surgery on the circulatory system from Last 3 Months Allergies Active Allergy Reactions Criticality Noted Date [...] 2 (two) times a day 60 tablet 0 Active acetaminophen 500 mg capsule Take [...] (06/19/2022): Added automatically from request for surgery [id number] Assessment & Plan (07/18/2022 7:47 AM PAEDIATRIC THORACIC PHYSICIAN): - OR 07/17 for R CEA -dc OU, Q4 NV checks - SBP goal above 120 - Continue aspirin + statin daily - SARAI removed this morning - OOB this morning, walking - Alva discontinued overnight, passed void trial Mixed hyperlipidemia 08/14/2021 Hematoma of chest wall, right, initial encounter 11/01/2019 Assessment & Plan (11/02/2019 5:03 PM PAEDIATRIC THORACIC PHYSICIAN): Could be hematoma vs seroma. No plan [...] above Assessment & Plan (11/01/2019 2:30 AM PAEDIATRIC THORACIC PHYSICIAN): Could be hematoma vs seroma. Minimal pain. [...] 11/01/2019 Assessment & Plan (11/02/2019 5:00 PM PAEDIATRIC THORACIC PHYSICIAN): Pt with foul smelling urine upon admission [...] days. Assessment & Plan (11/02/2019 5:08 AM PAEDIATRIC THORACIC PHYSICIAN): Pt with foul smelling urine on admit. Clean catch UA positive sent this am and positive ( present on admission) pt endorsing frequency and foul smelling urine that developed over the weekend. Ceftriaxone started 11/01 - f/u urine culture and determine duration of treatment ( pt has listed allergies to sulfa/pcn) Assessment & Plan (11/01/2019 8:06 PM PAEDIATRIC THORACIC PHYSICIAN): Pt with foul smelling urine on admit. Clean catch UA positive sent this am and positive ( present on admission) pt endorsing frequency and foul smelling urine that developed over the weekend. Ceftriaxone started 2/ - f/u urine culture and determine duration of treatment ( pt has listed allergies to sulfa/pcn) Assessment & Plan (11/01/2019 2:05 AM PAEDIATRIC THORACIC PHYSICIAN): Pt reports burning with urination and RN reports odor associate with urine. Possible UTI. -obtain clean catch urine sample for UA Acute pain 11/01/2019 Assessment & Plan (11/02/2019 3:31 PM PAEDIATRIC THORACIC PHYSICIAN): Patient complaining of right scapular pain since [...] pain Assessment & Plan (11/01/2019 8:07 PM PAEDIATRIC THORACIC PHYSICIAN): Pt reports mild right scapular pain since [...] pain Assessment & Plan (11/01/2019 2:11 AM PAEDIATRIC THORACIC PHYSICIAN): Pt reports mild right scapular pain since [...] patient) Assessment & Plan (11/02/2019 4:49 PM PAEDIATRIC THORACIC PHYSICIAN): Neurology signed off and recommends BP control [...] stenosis Assessment & Plan (11/02/2019 5:07 AM PAEDIATRIC THORACIC PHYSICIAN): Neurology signed off and recommends b/p control [...] well. Assessment & Plan (11/01/2019 7:56 PM PAEDIATRIC THORACIC PHYSICIAN): Neurology signed off and recommends b/p control [...] 10/23/2019 Assessment & Plan (10/24/2019 11:45 PM PAEDIATRIC THORACIC PHYSICIAN): - S/P 2/ aorta -> R axillary bypass and asc aorta + R + L common carotid bypass - Continue to monitor closely for signs of cerebral hyperperfusion syndrome - MAP >65 - No signs of headache or focal neurologic deficits Assessment & Plan (10/23/2019 8:06 PM PAEDIATRIC THORACIC PHYSICIAN): - S/P 2/14 aorta -> R axillary bypass and asc aorta + R + L common carotid bypass - Continue to monitor closely for signs of cerebral hyperperfusion syndrome - SBP <120 and MAP >65 - No signs of headache or focal neurologic deficits Chronic back pain complicated by acute surgical pain 10/21/2019 Assessment & Plan (10/25/2019 12:01 AM PAEDIATRIC THORACIC PHYSICIAN): - APAP sched, transitioned to PO oxy 10/23, dronabinol 2.5 BID AC - Patient uses THC at home for pain, dronabinol significantly improved symptoms. - Lidocaine drip discontinued 10/24 Assessment & Plan (10/23/2019 8:04 PM PAEDIATRIC THORACIC PHYSICIAN): - APAP sched, transitioned to PO oxy 16, dronabinol 2.5 BID AC, lido gtt - Patient uses THC at home for pain, dronabinol significantly improved symptoms. Assessment & Plan (10/22/2019 8:14 PM PAEDIATRIC THORACIC PHYSICIAN): - APAP sched, BARREL CUTTER 0.2 q10m, lido gtt Assessment & Plan (10/22/2019 12:48 AM PAEDIATRIC THORACIC PHYSICIAN): - APAP sched, 10 oxy q3h, dilaudid breakthrough pain, lido gtt Assessment & Plan (10/21/2019 8:47 PM PAEDIATRIC THORACIC PHYSICIAN): Dilaudid PRN while intubated, will add scheduled acetaminophen and PRN oxycodone once extubated. 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 Assessment & Plan (10/11/2019 10:08 AM PAEDIATRIC THORACIC PHYSICIAN): - Continue current regimen with atenolol - [...] 11/01/2019 Assessment & Plan (10/25/2019 12:02 AM PAEDIATRIC THORACIC PHYSICIAN): - Extubated on 10/21, transitioned to NC - Placed on Optiflow 10/23 (40L and 40% FiO2), goal SpO2 >92, weaned to NC on 10/24 Continue mobility and PAP treatments as necessary Assessment & Plan (10/23/2019 8:07 PM PAEDIATRIC THORACIC PHYSICIAN): - Extubated on 10/21, transitioned to NC - Placed on Optiflow 10/23 (40L and 40% FiO2), goal SpO2 >92 Syncope and collapse 04/05/2019 020 Labile hypertension 10/17/2016 08/22/20 24 Overview (12/17/2017): Description: elevated due to permissive hypertension Assessment & Plan (10/25/2019 12:01 AM PAEDIATRIC THORACIC PHYSICIAN): Currently hypotensive but initially hypertensive in OR. Will likely need restarting of his anti-hypertensives once acute post surgical hemodynamics stabilize. - While standing 10/22 afternoon, became hpotensive -> started on levo transiently, sat down and off pressors and back on nicardipine - 10/23 Increased coreg to 25 BID for SBP <120 Assessment & Plan (10/23/2019 8:04 PM PAEDIATRIC THORACIC PHYSICIAN): Currently hypotensive but initially hypertensive in OR. Will likely need restarting of his anti-hypertensives once acute post surgical hemodynamics stabilize. - While standing 10/22 afternoon, became hpotensive -> started on levo transiently, sat down and off pressors and back on nicardipine - Currently on nicardipine gtt @ 0.5 on 215 P.M. for SBP <120 - 10/23 Increased coreg to 25 BID for SBP <120 Assessment & Plan (10/22/2019 8:13 PM PAEDIATRIC THORACIC PHYSICIAN): Currently hypotensive but initially hypertensive in OR. Will likely need restarting of his anti-hypertensives once acute post surgical hemodynamics stabilize. - While standing 10/22 afternoon, became hpotensive -> started on levo transiently, sat down and off pressors and back on nicardipine - Currently on nicardipine gtt @ 0.5 on 215 P.M. for SBP <120 Assessment & Plan (10/22/2019 12:52 AM PAEDIATRIC THORACIC PHYSICIAN): Currently hypotensive but initially hypertensive in OR. Will likely need restarting of his anti-hypertensives once acute post surgical hemodynamics stabilize. - Currently on nicardipine gtt @ 2.5 on 15 A.M. for SBP <120 Assessment & Plan (10/21/2019 8:49 PM PAEDIATRIC THORACIC PHYSICIAN): Currently hypotensive but initially hypertensive in OR. Will likely need restarting of his anti-hypertensives once acute post surgical hemodynamics stabilize. Mitral valve insufficiency 04/23/2015 1 10/23/2023 Overview (12/12/2016): Mitral regurgitation Heart murmur 02/26/2015 08/22/2024 Overview (12/11/2016): Murmur, cardiac Dyslipidemia 02/26/2015 08/14/2021 Overview (12/11/2016): Dyslipidemia Immunizations Name Administration Dates Next Due Influenza, Unspecified 06/07/2019 Social History Tobacco Use Types Packs/Day Years [...] on file Legal Sex Female 3:40 AM PAEDIATRIC THORACIC PHYSICIAN Gender Identity Not on file Sexual Orientation Not on file Last Filed Vital Signs Vital Sign Reading Time Taken Comments Blood Pressure 139/68 08/22/2024 12:48 PM PAEDIATRIC THORACIC PHYSICIAN Pulse 64 08/22/2024 12:48 PM PAEDIATRIC THORACIC PHYSICIAN Temperature 36.5 ??C (97.7 ??F) 07/18/2022 8:00 AM CS T Respiratory Rate 18 07/18/2022 8:00 AM PAEDIATRIC THORACIC PHYSICIAN Oxygen Saturation 97% 08/22/2024 12: 48 PM PAEDIATRIC THORACIC PHYSICIAN Inhaled Oxygen Concentration - - Weight 79.7 kg (175 lb 12.8 oz) 024 12:48 PM PAEDIATRIC THORACIC PHYSICIAN Height 170.2 cm (5' 7 ) 08/22/2024 12:4 8 PM PAEDIATRIC THORACIC PHYSICIAN Body Mass Index 27.53 08/22/2024 12:48 PM PAEDIATRIC THORACIC PHYSICIAN Plan of Treatment Not on file Medical Devices Implanted Type Area Cooperer Device Identifier Shelf Expiration Date Model / Serial / Lot Loaiza Grafoid Vascu-Guard 8x.8cm Peripheral Patch Vascular Bovine Pericardium [id number] - [id number] Implanted:Qty: 1 on 07/17/2022 by Zachary Giron MD at [facility] Endoprosthesi s Right: Carotid [employer] [id number] 03/13/2027 [id number]-[id number] / / [id number] [employer] [id number] 6mm 80cm 60cm Stretch Removable Ring Line Peripheral Thin Wall - [id number] - [id number] Implanted:Qty: 1 on 10/21/2019 by Zachary Giron MD at [facility] Graft Right: Subclavian [employer] [id number] 02/23/2024 [id number] / [id number] / [email or web address] [id number] Hemashield Manzanita 8mm 30cm Woven Smooth Needle Passage Suture - [id number] - [id number] Implanted:Qty: 1 on 10/21/2019 by Azar Lara MD at [facility] Graft N/A: Subclavian [id number] 07/07/2024 [id number] / [id number] / [id number] Terumo Cardio Vascular [id number] Gelsoft Plus Vascutek 14/7mm 45cm Main Leg Bore Reduced - [id number] - [id number] Implanted:Qty: 1 on 10/21/2019 by Azar Lara MD at [facility] Graft N/A: Subclavian Terumo Cardio Vascular [id number] 04/06/2022 [id number] / [id number] / [id number] [email or web address] 308655 Device Closure Angio-Seal Vip Bondek-Plus Polyglyd L70 Cm Od6 Fr Odsec.035 In Vascular - [id number] - [id number] Implanted:Qty: 1 on 10/18/2019 by Jd Sinha MD at [facility] [email or web address] 05/07/2020 [id number] / [id number] / Explanted Type Area Cooperer Device Identifier Shelf Expiration Date Model / Serial / Lot Integra WorkFlowyciNutrinsic Juan [id number] Sundt 4-5mm 5.5-6.3mm 2.2-3.1mm 30cm Temporary External Loop Soft - [id number] Explanted:Qty: 1 on 07/17/2022 by Zachary Giron MD at [facility] Endoprosthesis Right: Carotid Integra [employer] Juan [id number] 11/04/2026 [id number] / / [id number] Procedures Procedure Name Priority Date/Time Associated Diagnosis Comments US ARTERIAL DOPPLER UPPER EXTREMITY BILATERAL Schedule Routine, Read Routine (OP Routine) 08/15/2024 11:35 AM PAEDIATRIC THORACIC PHYSICIAN Encounter for surgical aftercare following surgery on the circulatory system US CAROTIDS DUPLEX BILATERAL Schedule Routine, Read Routine (OP Routine) 08/15/2024 11:35 AM PAEDIATRIC THORACIC PHYSICIAN Encounter for surgical aftercare following surgery on the circulatory system from Last 3 Months Results * US Arterial Doppler Upper Extremity Bilateral (08/15/2024 11:35 AM PAEDIATRIC THORACIC PHYSICIAN) Anatomical Region Laterality Modality Vascular Bilateral Ultrasound 08/15/2024 11:0 7 AM PAEDIATRIC THORACIC PHYSICIAN Narrative 08/17/2024 12:38 AM PAEDIATRIC THORACIC PHYSICIAN [facility] - Department of Vascular Surgery, Vascular Laboratory [address] [place] [id number] Upper Extremity Arterial Doppler Ultrasound Report Patient Name: PAIGE SAENZ : 1945 Study Date: 08/15/2024 11:07:00 AM Gender: F Tech: Diann Olea T, RDMS Location: [facility] Provider: MARILYNN NORRIS Quality: Adequate Order Provider: [...] Left ? Value - ?? FINDINGS: Performing Black Top Roller: Diann Olea RVT, RDMS. Right Axillary Artery: [...] Zachary Giron MD FACS 08/17/2024 12:37:56 AM PAEDIATRIC THORACIC PHYSICIAN Procedure Note Zachary Giron MD - 08/17/2024 [facility] - Department of Vascular Surgery,Vascular Laboratory [address] [place] [address] Upper Extremity Arterial Doppler Ultrasound Report Patient Name: PAIGE SAENZ : 1945 Study Date: 08/15/2024 11:07:00 AM Gender: F Tech: Diann Olea RVT, RDMS Location: [facility] Provider: MARILYNN NORRIS Quality: Adequate Order Provider: [...] Right Value Left Value - FINDINGS: Performing Black Top Roller: Diann Emmie, RVT, RDMS. Right Axillary Artery: The axillary [...] above. Electronically Signed By: Zachary Giron MD [facility] 08/17/2024 12:37:56 AM PAEDIATRIC THORACIC PHYSICIAN Marilynn Norris NP IMG US PROCEDURES Final Result * US Carotids Duplex Bilateral (08/15/2024 11:35 AM PAEDIATRIC THORACIC PHYSICIAN) Anatomical Region Laterality Modality Vascular Bilateral Ultrasound 08/15/2024 10:4 8 AM PAEDIATRIC THORACIC PHYSICIAN Narrative 08/17/2024 12:46 AM PAEDIATRIC THORACIC PHYSICIAN [facility] - Department of Vascular Surgery, Vascular Laboratory [address] [place] [address] Carotid Duplex Ultrasound Report Patient Name: PAIGE SAENZ : 1945 (78y 7m) Study Date: 08/15/2024 10:48:44 AM Gender: F Tech: Location: [facility] Provider: MARILYNN NORRIS Quality: Adequate Order Provider: [...] PSV ?53 cm/sec - ?? FINDINGS: Performing Black Top Roller: Diann Olea RVT, RDMS. Rt Common Carotid [...] Zachary Giron MD FACS 08/17/2024 12:45:34 AM PAEDIATRIC THORACIC PHYSICIAN Procedure Note Zachary Giron MD - 08/17/2024 [facility] - Department of Vascular Surgery,Vascular Laboratory [address] [place] [address] Carotid Duplex Ultrasound Report Patient Name: PAIGE SAENZ : 1945 (78y 7m) Study Date: 08/15/2024 10:48:44 AM Gender: F Tech: Location: [facility] Provider: MARILYNN NORRIS Quality: Adequate Order Provider: [...] VERT PSV 53 cm/sec - FINDINGS: Performing Black Top Roller: Diann Olea RVT, SELENE. Rt Common Carotid [...] above. Electronically Signed By: Zachary Giron MD [facility] 08/17/2024 12:45:34 AM PAEDIATRIC THORACIC PHYSICIAN Marilynn Norris NP [facility] PROCEDURES Final Result from Last 3 Months Insurance [employer]IC[employer] [facility] Address: [address] [place] [phone] [employer] [facility] Address: [address] [place] [phone] [employer] Advance Directives For more information, please contact: [phone] Documents on File Type Date Recorded Patient Glass Tube Bender Expl anation ADVANCE DIRECTIVE 10/18/2019 3:54 PM POWER OF MAIN[employer] * Full Code (Latest Code Status on [...] 10:33 PM 10/21/2019 5:25 PM Care Teams Meter Setter Relationship Specialty Start Date End Date Perez Alexander DO [address] [place] [address] PCP - General Family Medicine 07/01/22 Zachary Giron MD Surgeon Vascular Surgery 10/12/19 Azar Lara MD Surgeon Cardiothoracic Surgery 10/27/19
--- OUTSIDE RECORDS SUMMARY | 2024-09-08 08:20 | XMS_ITS | Encounter Summary ---
Author Organization [facility] Address [address] [place] [address] Care Team Providers Care Service Associate Name Role Phone Zachary Giron MD Unavailable Azar Lara MD Unavailable Perez Alexander DO Primary Care Provider Reason for Visit * Cardiology (Routine) - Closed Specialty Diagnoses / Procedures Referred By Contac t Referred To Contact Diagnoses PVC (premature ventricular contraction) Procedures 24 HR Holter Monitor Briseida Finn MD [address] [address] Phone: tel: fax: [facility] Cardiology [address] [place] [phone] Phone: tel: fax: Referral ID Status Reason Start Date Expiration Date Visits Re quested Visits Authorized [id number] Closed 08/22/2024 09/21/2025 1 1 Encounter Details Date Type Department Care Team (Latest Contact Info) Description 08/22/2024 1:45 PM BLADDER TIER Ancillary Procedure [facility] Cardiology [address] [place] [phone] PVC (premature ventricular contraction) Social History Tobacco Use Types Packs/Day Years Used Date Smoking Tobacco: Former Cigarettes Q uit: 2004 Smokeless Tobacco: Current Comments:Occasional nicorete use Alcohol [...] on file Legal Sex Female 3:40 AM BLADDER TIER Gender Identity Not on file Sexual Orientation Not on file documented as of this encounter Plan of Treatment Pending Results Name Type Priority Associated Diagnoses Date /Time 24 HR Holter Monitor Cardiac Services Routine PVC (premature ventricular contraction) 08/22/2024 1:54 PM BLADDER TIER documented as of this encounter Visit Diagnoses Diagnosis PVC (premature ventricular contraction) Other premature beats documented in this encounter Care Teams Service Associate Relationship Specialty Start Date End Date Perez Alexander DO [facility] [place] [address] PCP - General Family Medicine 07/01/22 Zachary Giron MD Surgeon Vascular Surgery 10/12/19 Azar Lara MD Surgeon Cardiothoracic Surgery 10/27/19 documented as of this encounter
--- OUTSIDE RECORDS SUMMARY | 2024-09-08 08:21 | XMS_ITS | Encounter Summary ---
Author Organization [facility] Address [address] [facility] [address] [place] [address] Phone Care Team Providers Care Contract Programmer Name Role Phone Nanci Trujillo MD Unavailable [phone] Azar Lara MD Unavailable Perez Alexander DO Primary Care Provider Reason for Visit * Diagnostic Imaging (Routine) - Closed Specialty Diagnoses / Procedures Referred By Contac t Referred To Contact Diagnoses Carotid artery disease (HCC) Encounter for surgical aftercare following surgery on the circulatory system Aftercare following surgery of the circulatory system, NEC Procedures US Carotids Duplex Bilateral Nanci Trujillo MD [address] [facility] [address] [place] [address] Phone: tel: fax: [facility] (All Locations) Referral ID Status Reason Start Date Expiration Date Visits Re quested Visits Authorized [id number] Closed 08/19/2022 09/18/2023 99 99 Encounter Details Date Type Department Care Team (Latest Contact Info) Description 08/17/2023 11:00 AM OPTICAL ENGINEERING MANAGER Ancillary Procedure [facility] [address] [facility] 8th [place] [address] [place] [address] Carotid artery disease (HCC); Encounter for surgical aftercare following surgery on the circulatory system; Aftercare following surgery of the circulatory system, NEC Social History Tobacco Use Types Packs/Day Years [...] on file Legal Sex Female 3:40 AM OPTICAL ENGINEERING MANAGER Gender Identity Not on file Sexual Orientation Not on file documented as of this encounter Plan of Treatment Not on file documented as of this encounter Procedures Procedure Name Priority Date/Time Associated Diagnosis Comments US CAROTIDS DUPLEX BILATERAL Routine 08/17/2023 11:50 AM OPTICAL ENGINEERING MANAGER Carotid artery disease (HCC) Encounter for surgical aftercare following surgery on the circulatory system Aftercare following surgery of the circulatory system, NEC documented in this encounter Results * US Carotids Duplex Bilateral (08/17/2023 11:50 AM OPTICAL ENGINEERING MANAGER) Anatomical Region Laterality Modality Vascular Bilateral Ultrasound 08/17/2023 11:0 0 AM OPTICAL ENGINEERING MANAGER Narrative 08/17/2023 9:16 PM OPTICAL ENGINEERING MANAGER [facility] - Department of Vascular Surgery, Vascular Laboratory [address] [place] [address] Carotid Duplex Ultrasound Report Patient Name: SUMA SAENZ : 1945 (77y 7m) Study Date: 08/17/2023 11:00:52 AM Gender: F Tech: KASSANDRA Location: [facility] Ref Provider: NANCI TRUJILLO ?Quality: Adequate Order Provider: NANCI TRUJILLO PROCEDURES: Carotid Report: Carotid duplex examination of the extracranial arteries was performed using 2D, color and spectral Doppler. INDICATIONS: Dx: Carotid artery disease (HCC) [I77.9 (ICD-10-CM)]; Encounter for surgical aftercare following surgery on the circulatory system [Z48.812 (ICD-10-CM)]; Aftercare following surgery of the circulatory system, NEC [Z48.812 (ICD-10-C. Measurements: Right ?Left Measurement ?Value ?Units ? Measurement ?Value ?Units RT Prox CCA PSV ?122 ?cm/sec ?LT Prox CCA PSV ?75 ? cm/sec RT Prox CCA EDV ?9 ?cm/sec ?LT Prox CCA EDV ?9 ?cm/sec RT Distal CCA PSV ?100 ?cm/sec ?LT Distal CCA PSV ?65 ? cm/sec RT Distal CCA EDV ?12 ? cm/sec ?LT Distal CCA EDV ?10 ? cm/sec RT Prox ICA PSV ?85 ? cm/sec ?LT Prox ICA PSV ?125 ?cm/sec RT Prox ICA EDV ?12 ? cm/sec ?LT Prox ICA EDV ?16 ? cm/sec RT Mid ICA PSV ? 116 ?cm/sec ?LT Mid ICA PSV ? 91 ? cm/sec RT Mid ICA EDV ? 22 ? cm/sec ?LT Mid ICA EDV ? 17 ? cm/sec RT Distal ICA PSV ?63 ? cm/sec ?LT Distal ICA PSV ?122 ?cm/sec RT Distal ICA EDV ?13 ? cm/sec ?LT Distal ICA EDV ?16 ? cm/sec RT ECA PSV ? 167 ?cm/sec ?LT ECA PSV ? 287 ?cm/sec RT ICA/CCA ? 1.16 ? ratio ? LT ICA/CCA ? 1.93 ? ratio RT VERT PSV ?37 ? cm/sec ?LT VERT PSV ?54 ? cm/sec - FINDINGS: Performing Hair Spinning Machine Operator: Angie Crain RVT. Rt Common Carotid Artery: The plaque in the right DISTAL CCA appears to be heterogeneous and regular. Atherosclerotic changes of the right common carotid artery with no hemodynamically significant Doppler findings. The proximal CCA (minimal plaque) and distal portion of the bypass graft(ascending aorta to CCA) are patent with no signficant velocity elevation. Rt Internal Carotid Artery: Duplex imaging of the right internal carotid artery is within normal limits without evidence for atherosclerotic disease. Rt External Carotid Artery: Patent right external carotid artery with evidence of atherosclerotic disease present. Rt Vertebral Artery: Bidirectional flow in the right vertebral artery maybe consistent with ipsilateral subclavian artery stenosis or occlusion. This is a known finding. There is a bypass graft from the aorta(not seen) to the axillary artery. Distal portion of the bypass graft is patent. Peak velocity 210cm/s. Lt Common Carotid Artery: The plaque in the left DISTAL CCA near bifurcation appears to be calcified. Atherosclerotic changes of the left common carotid artery with no hemodynamically significant Doppler findings. The proximal CCA (minimal plaque) and distal portion of the bypass graft(ascending aorta to CCA) are patent with no signficant velocity elevation Lt Internal Carotid Artery: The plaque in the left internal carotid artery appears to be heterogeneous, calcified and irregular. Atherosclerotic changes of the left internal carotid artery without hemodynamically significant Doppler findings. <50% stenosis. Lt External Carotid Artery: Patent left external carotid artery with evidence of atherosclerotic disease present. Lt Vertebral Artery: The left vertebral artery is patent with antegrade flow. CONCLUSIONS: 1. Normal right internal carotid artery, no evidence of significant plaque. 2. The left internal carotid artery disease is consistent with a less than 50% stenosis. 3. Bidirectional flow in the right vertebral artery maybe consistent with ipsilateral subclavian artery stenosis or occlusion. This is a known finding. There is a bypass graft from the aorta(not seen) to the axillary artery. Distal portion of the bypass graft is patent. Peak velocity 210cm/s. 4. Normal, antegrade flow is noted in the left vertebral artery. 5. No evidence of hemodynamically significant stenosis in the common carotid artery bilaterally. HISTORY: 07/17/2022 Right carotid endarterectomy. 10/21/2019 s/p bypass from the aorta to the right axillary artery as well as a bifurcated bypass from the ascending aorta to the right common carotid artery and the left common carotid artery. - PREVIOUS STUDIES: Previous carotid ultrasound on 08/19/2022 R ICA wnl L ICA <50% Bidirectional R vert Antegrade L vert - DISCLAIMER: The study images and the final [...] that is provided above. Electronically Signed By: Surinder Cardenas MD FACS 2023-08-17 21:15:34 OPTICAL ENGINEERING MANAGER Procedure Note Surinder Cardenas MD - 08/17/2023 [facility] - Department of Vascular Surgery,Vascular Laboratory [address] [place] [address] Carotid Duplex Ultrasound Report Patient Name: SUMA SAENZ : 1945 (77y 7m) Study Date: 08/17/2023 11:00:52 AM Gender: F Tech: KASSANDRA Location: [facility] Ref Provider: NANCI TRUJILLO Quality: Adequate Order Provider: NANCI TRUJILLO PROCEDURES: Carotid Report: Carotid duplex examination of the extracranial arterieswas performed using 2D, color and spectral Doppler. INDICATIONS: Dx: Carotid artery disease (HCC) [I77.9 (ICD-10-CM)]; Encounter forsurgical aftercare following surgery on the circulatory system [Z48.812 (ICD-10-CM)];Aftercare following surgery of the circulatory system, NEC [Z48.812 (ICD-10-C. Measurements: Right Left Measurement Value Units Measurement ValueUnits RT Prox CCA PSV 122 cm/sec LT Prox CCA PSV 75cm/sec RT Prox CCA EDV 9 cm/sec LT Prox CCA EDV 9cm/sec RT Distal CCA PSV 100 cm/sec LT Distal CCA PSV 65cm/sec RT Distal CCA EDV 12 cm/sec LT Distal CCA EDV 10cm/sec RT Prox ICA PSV 85 cm/sec LT Prox ICA PSV 125cm/sec RT Prox ICA EDV 12 cm/sec LT Prox ICA EDV 16cm/sec RT Mid ICA PSV 116 cm/sec LT Mid ICA PSV 91cm/sec RT Mid ICA EDV 22 cm/sec LT Mid ICA EDV 17cm/sec RT Distal ICA PSV 63 cm/sec LT Distal ICA PSV 122cm/sec RT Distal ICA EDV 13 cm/sec LT Distal ICA EDV 16cm/sec RT ECA PSV 167 cm/sec LT ECA PSV 287cm/sec RT ICA/CCA 1.16 ratio LT ICA/CCA 1.93ratio RT VERT PSV 37 cm/sec LT VERT PSV 54cm/sec - FINDINGS: Performing Hair Spinning Machine Operator: Angie Crain RVT. Rt Common Carotid Artery: The plaque in the right DISTAL CCA appears to be heterogeneous andregular. Atherosclerotic changes of the right common carotid artery with nohemodynamically significant Doppler findings. The proximal CCA (minimal plaque) and distal portion of the bypassgraft(ascending aorta to CCA) are patent with no signficant velocity elevation. Rt Internal Carotid Artery: Duplex imaging of the right internal carotidartery is within normal limits without evidence for atherosclerotic disease. Rt External Carotid Artery: Patent right external carotid artery withevidence of atherosclerotic disease present. Rt Vertebral Artery: Bidirectional flow in the right vertebral arterymaybe consistent with ipsilateral subclavian artery stenosis or occlusion. This is a knownfinding. There is a bypass graft from the aorta(not seen) to the axillary artery. Distalportion of the bypass graft is patent. Peak velocity 210cm/s. Lt Common Carotid Artery: The plaque in the left DISTAL CCA nearbifurcation appears to be calcified. Atherosclerotic changes of the left common carotid arterywith no hemodynamically significant Doppler findings. The proximal CCA (minimal plaque) and distal portion of the bypassgraft(ascending aorta to CCA) are patent with no signficant velocity elevation Lt Internal Carotid Artery: The plaque in the left internal carotid arteryappears to be heterogeneous, calcified and irregular. Atherosclerotic changes of theleft internal carotid artery without hemodynamically significant Doppler findings. <50%stenosis. Lt External Carotid Artery: Patent left external carotid artery withevidence of atherosclerotic disease present. Lt Vertebral Artery: The left vertebral artery is patent with antegradeflow. CONCLUSIONS: 1. Normal right internal carotid artery, no evidence of significantplaque. 2. The left internal carotid artery disease is consistent with a less than50% stenosis. 3. Bidirectional flow in the right vertebral artery maybe consistent withipsilateral subclavian artery stenosis or occlusion. This is a known finding. There vinita bypass graft from the aorta(not seen) to the axillary artery. Distal portion of thebypass graft is patent. Peak velocity 210cm/s. 4. Normal, antegrade flow is noted in the left vertebral artery. 5. No evidence of hemodynamically significant stenosis in the commoncarotid artery bilaterally. HISTORY: 07/17/2022 Right carotid endarterectomy. 10/21/2019 s/p bypass from the aorta to the right axillary artery as wellas a bifurcated bypass from the ascending aorta to the right common carotid artery and theleft common carotid artery. - PREVIOUS STUDIES: Previous carotid ultrasound on 08/19/2022 R ICA wnl L ICA <50% Bidirectional R vert Antegrade L vert - DISCLAIMER: The study images and the final report will be retained in the patientchart by the Vascular Laboratory for the legally required time period. This chartconstitutes the legal record of any testing performed. ATTESTATION: I have reviewed and interpreted the pertinent images and measurements ofthis study. I attest to the conclusions in the final report that is provided above. Electronically Signed By: Surinder Cardenas MD [facility] 2023-08-17 21:15:34 OPTICAL ENGINEERING MANAGER Nanci Trujillo MD [facility] PROCEDURES Final R esult documented in this encounter Visit Diagnoses Diagnosis Carotid artery disease (HCC) Unspecified disorders of arteries and arterioles Encounter for surgical aftercare following surgery on the circulatory system Aftercare following surgery of the circulatory system, NEC documented in this encounter Care Teams Contract Programmer Relationship Specialty Start Date End Date Perez Alexander DO [facility] [place] [address] PCP - General Family Medicine 07/01/22 Nanci Trujillo MD Surgeon Vascular Surgery 10/12/19 Azar Lara MD Surgeon Cardiothoracic Surgery 10/27/19 documented as of this encounter
--- OUTSIDE RECORDS SUMMARY | 2024-09-08 08:21 | XMS_ITS | Encounter Summary ---
Author Organization [facility] [employer] [facility] Address [address] [place] [address] Phone Care Team Providers Care Admitting Manager Name Role Phone Zachary Giron MD Unavailable Azar Lara MD Unavailable Perez Alexander DO Primary Care Provider Reason for Visit * Diagnostic Imaging (Routine) - Closed Specialty Diagnoses / Procedures Referred By Contac t Referred To Contact Diagnoses Encounter for surgical aftercare following surgery on the circulatory system Procedures US Carotids Duplex Bilateral Nafisa Norris, SANDWICH AND DRINK CART OPERATOR [address] [facility] [address] [place] [address] Phone: tel: fax: [facility] (All Locations) Referral ID Status Reason Start Date Expiration Date Visits Re quested Visits Authorized [id number] Closed 08/17/2023 09/15/2024 1 1 Encounter Details Date Type Department Care Team (Latest Contact Info) Description 08/15/2024 11:00 AM PLANT DIRECTOR Ancillary Procedure [facility] [address] [place] [address] Advanced Medicine 8th [place] [address] [place] [id number] Encounter for surgical aftercare following surgery on the circulatory system Social History Tobacco Use Types Packs/Day Years [...] on file Legal Sex Female 3:40 AM PLANT DIRECTOR Gender Identity Not on file Sexual Orientation Not on file documented as of this encounter Plan of Treatment Not on file documented as of this encounter Procedures Procedure Name Priority Date/Time Associated Diagnosis Comments US ARTERIAL DOPPLER UPPER EXTREMITY BILATERAL Schedule Routine, Read Routine (OP Routine) 08/15/2024 11:35 AM PLANT DIRECTOR Encounter for surgical aftercare following surgery on the circulatory system US CAROTIDS DUPLEX BILATERAL Schedule Routine, Read Routine (OP Routine) 08/15/2024 11:35 AM PLANT DIRECTOR Encounter for surgical aftercare following surgery on the circulatory system documented in this encounter Results * US Arterial Doppler Upper Extremity Bilateral (08/15/2024 11:35 AM PLANT DIRECTOR) Anatomical Region Laterality Modality Vascular Bilateral Ultrasound 08/15/2024 11:0 7 AM PLANT DIRECTOR Narrative 08/17/2024 12:38 AM PLANT DIRECTOR [facility] - Department of Vascular Surgery, Vascular Laboratory [address] [place] [address] Upper Extremity Arterial Doppler Ultrasound Report Patient Name: SUMA SAENZ : 1945 Study Date: 08/15/2024 11:07:00 AM Gender: F Tech: Diann Olea RVT, MS Location: [facility] Provider: NAFISA NORRIS Quality: Adequate Order Provider: NAFISA NORRIS ?? PROCEDURES: Vascular Report: Bilateral upper [...] Left ? Value - ?? FINDINGS: Performing Straw Hat Brusher: Diann Olea RVT, RDMS. Right Axillary Artery: [...] Zachary Giron MD FACS 08/17/2024 12:37:56 AM PLANT DIRECTOR Procedure Note Zachary Giron MD - 08/17/2024 [facility] - Department of Vascular Surgery,Vascular Laboratory [address] [place] [address] Upper Extremity Arterial Doppler Ultrasound Report Patient Name: SUMA SAENZ : 1945 Study Date: 08/15/2024 11:07:00 AM Gender: F Tech: Diann Olea RVT, RDMS Location: [facility] Provider: NAFISA NORRIS Quality: Adequate Order Provider: NAFISA NORRIS PROCEDURES: Vascular Report: Bilateral upper extremity arterial Doppler exam with digit plethysmographyand pressure. INDICATIONS: Z48.812 [facility] MEASUREMENTS: Right Value Left Value Rt [...] Right Value Left Value - FINDINGS: Performing Straw Hat Brusher: Diann Olea RVT, RDMS. Right Axillary Artery: [...] above. Electronically Signed By: Zachary Giron MD [facility] 08/17/2024 12:37:56 AM PLANT DIRECTOR us Nafisa Norris NP IMG US PROCEDURES Final Result * US Carotids Duplex Bilateral (08/15/2024 11:35 AM PLANT DIRECTOR) Anatomical Region Laterality Modality Vascular Bilateral Ultrasound 08/15/2024 10:4 8 AM PLANT DIRECTOR Narrative 08/17/2024 12:46 AM PLANT DIRECTOR [facility] - Department of Vascular Surgery, Vascular Laboratory [address] [place] [address] Carotid Duplex Ultrasound Report Patient Name: SUMA SAENZ : 1945 (78y 7m) Study Date: 08/15/2024 10:48:44 AM Gender: F Tech: TH Location: [facility] Ref Provider: NAFISA NORRIS Quality: Adequate Order Provider: NAFISA NORRIS ?? PROCEDURES: Carotid Report: Carotid duplex [...] PSV ?53 cm/sec - ?? FINDINGS: Performing Straw Hat Brusher: Diann Olea RVT, RDMS. Rt Common Carotid [...] that is provided above. Electronically Signed By: Zcahary Giron MD FACS 08/17/2024 12:45:34 AM PLANT DIRECTOR Procedure Note Zachary Giron MD - 08/17/2024 [facility] - Department of Vascular Surgery,Vascular Laboratory [address] [place] [address] Carotid Duplex Ultrasound Report Patient Name: SUMA SAENZ : 1945 (78y 7m) Study Date: 08/15/2024 10:48:44 AM Gender: F Tech: Location: [facility] Provider: NAFISA NORRIS Quality: Adequate Order Provider: NAFISA NORRIS PROCEDURES: Carotid Report: Carotid duplex examination [...] VERT PSV 53 cm/sec - FINDINGS: Performing Straw Hat Brusher: Diann Olea RVT, SELENE. Rt Common Carotid [...] above. Electronically Signed By: Zachary Giron MD [facility] 08/17/2024 12:45:34 AM PLANT DIRECTOR Nafisa Norris SANDWICH AND DRINK CART OPERATOR IM US PROCEDURES Final Result documented in this encounter Visit Diagnoses Diagnosis Encounter for surgical aftercare following surgery on the circulatory system documented in this encounter Care Teams Admitting Manager Relationship Specialty Start Date End Date Perez Alexander DO [address] [place] [address] PCP - General Family Medicine 07/01/22 Zachary Giron MD Surgeon Vascular Surgery 10/12/19 Azar Lara MD Surgeon Cardiothoracic Surgery 10/27/19 documented as of this encounter
--- OUTSIDE RECORDS SUMMARY | 2024-09-08 08:21 | XMS_ITS | Encounter Summary ---
Author Organization [facility] Healthcare Address [address] [place] [address] Care Team Providers Care Child Care Provider Name Role Phone Zachary Giron MD Unavailable [phone] Azar Lara MD Unavailable Perez Alexander DO Primary Care Provider Reason for Referral * Cardiology (Routine) - Closed Specialty Diagnoses / Procedures Referred By Contac t Referred To Contact Diagnoses Cerebrovascular accident (CVA), unspecified mechanism (HCC) Procedures Transthoracic Echo (TTE) Limited/Followup Marco A Antoine MD Phone: tel: fax: [facility] Medical [facility] Referral ID Status Reason Start Date Expiration Date Visits Re quested Visits Authorized [id number] Closed 09/24/2023 10/23/2024 1 1 NESS SOLUTION ANALYST Encounter Details Date Type Department Care Team (Late st Contact Info) Description 09/24/2023 Telephone [facility] Cardiology [address] [facility] [address] [place] [address] Marco A Antoine MD [address] [facility] [address] [place], [place] [id number] Social History Tobacco Use Types Packs/Day Years [...] on file Legal Sex Female 3:40 AM BUSINESS SOLUTION ANALYST Gender Identity Not on file Sexual Orientation Not on file documented as of this encounter Miscellaneous Notes * Telephone Encounter - Yoli Duvall RN - 09/24/2023 3:32 PM BUSINESS SOLUTION ANALYST ----- Message from Marco A Antoine MD sent at 09/24/2023 3:19 PM BUSINESS SOLUTION ANALYST ----- EF preserved 60-65% suggestion of PFO with color-flow Doppler but bubble study not performed. I would recommend repeat limited images with bubble study with and without Valsalva for confirmation of PFO given history of CVA. She also had mild MR and moderate AI. Will continue to monitor clinically. Spoke with pt, reviewed result note from AD, pt verbalized understanding. Ordered and scheduled limited echo on 11/05. NESS SOLUTION ANALYST NESS SOLUTION ANALYST documented in this encounter Plan of Treatment Not on file documented as of this encounter Results * TRANSTHORACIC ECHO (TTE) LIMITED/FOLLOW UP W LTD DOPPLER/CF WO CONTRAST (11/06/2023 1:33 PM BUSINESS SOLUTION ANALYST) Anatomical Region Laterality Modality Ultrasound 11/06/2023 1:13 PM BUSINESS SOLUTION ANALYST Narrative 11/06/2023 4:45 PM BUSINESS SOLUTION ANALYST [facility] Medical [facility] Cardiology [address], [place] [address] [address] [facility] [address], [place] [address] P:[phone] P:[phone] Echocardiogram Report Patient Name: SUMA SAENZ K : 1945 Study Date: 11/06/2023 1:13:58 PM Gender: F Tech: Ref Provider: MARCO A ANTOINE Height(Cm): 170 BSA: 1.98 Weight(Kg): 83 ?Heart Rate: 65 Quality: Good Order Provider: MARCO A ANTOINE PROCEDURES: Echocardiographic Report: Saline Contrast Study. INDICATIONS: Cerebrovascular Accident. Measurements: FINDINGS: Interpretation Site: Exam was interpreted at [facility]. Atrial Septum: Saline contrast study performed without evidence of right to left shunt. CONCLUSIONS: Saline contrast study performed without evidence of right to left shunt. Negative bubble study. Electronically Signed By: Fabian Mcintosh MD 2023-11-06 16:44:24 BUSINESS SOLUTION ANALYST Procedure Note Fabian Mcintosh MD - 11/06/2023 [facility] Medical [facility] Cardiology [address] [facility] [address] [place] [address] [address] [facility] [address] [place], [place] [address] P:[phone] P:[phone] Echocardiogram Report Patient Name: SUMA SAENZ K : 1945 Study Date: 11/06/2023 1:13:58 PM Gender: F Tech: Ref Provider: MARCO A ANTOINE Height(Cm): 170 BSA: 1.98 Weight(Kg): 83 Heart Rate: 65 Quality: Good Order Provider: MARCO A ANTOINE PROCEDURES: Echocardiographic Report: Saline Contrast Study. INDICATIONS: Cerebrovascular Accident. Measurements: FINDINGS: Interpretation Site: Exam was interpreted at [facility]. Atrial Septum: Saline contrast study performed without evidence of right to left shunt. CONCLUSIONS: Saline contrast study performed without evidence of right to left shunt. Negative bubble study. Electronically Signed By: Fabian Mcintosh MD 2023-11-06 16:44:24 BUSINESS SOLUTION ANALYST Marco A Antoine MD CV ECHO PROCEDURES Final Result documented in this encounter Visit Diagnoses Diagnosis Cerebrovascular accident (CVA), unspecified mechanism (HCC)- Primary Cerebrovascular accident (CVA), unspecified mechanism (HCC) documented in this encounter Care Teams Child Care Provider Relationship Specialty Start Date End Date Perez Alexander DO [address] [place] [address] PCP - General Family Medicine 07/01/22 Zachary Giron MD Surgeon Vascular Surgery 10/12/19 Azar Lara MD Surgeon Cardiothoracic Surgery 10/27/19 documented as of this encounter
--- OUTSIDE RECORDS SUMMARY | 2024-09-08 08:21 | XMS_ITS | Encounter Summary ---
Author Organization [facility] Healthcare Address [address] [place] [address] Care Team Providers Care Nurse Practitioner Manager Name Role Phone Zachary Giron MD Unavailable Azar Lara MD Unavailable Perez Alexander DO Primary Care Provider Encounter Details Date Type Department Care Team (Late st Contact Info) Description 08/12/2023 Orders Only [facility] Medical [facility] Cardiology [address] [place] [address] Annemarie Mckenna MA Mixed hyperlipidemia (Primary Dx); Bilateral carotid artery stenosis Social History Tobacco Use Types Packs/Day Years [...] on file 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 documented in this encounter Plan of Treatment Not on file documented as of this encounter Procedures Procedure Name Priority Date/Time Associated Diagnosis Comments LIPID PANEL Routine 08/19/2023 Mixed hyperlipidemia Bilateral carotid artery stenosis documented in this encounter Results * Lipid panel (08/19/2023) SCRIBED Cholesterol, Total 121 <200 EXTERNAL LAB SCRIBED HDL 65 >39 EXTERNAL LAB SCRIBED LDL 38 <100 EXTERNAL LAB SCRIBED Triglycerides 90 <150 EXTERNAL LAB Blood 08/19/2023 us Marco A Antoine MD LAB BLOOD ORDERABLES Fin al Result EXTERNAL LAB documented in this encounter Visit Diagnoses Diagnosis Mixed hyperlipidemia- Primary Bilateral carotid artery stenosis Occlusion and stenosis of carotid artery without mention of cerebral infarction documented in this encounter Care Teams Nurse Practitioner Manager Relationship Specialty Start Date End Date Perez Alexander DO [address] [place] [address] PCP - General Family Medicine 07/01/22 Zachary Giron MD Surgeon Vascular Surgery 10/12/19 Azar Lara MD Surgeon Cardiothoracic Surgery 10/27/19 documented as of this encounter
--- OUTSIDE RECORDS SUMMARY | 2024-09-08 08:21 | XMS_ITS | Encounter Summary ---
Author Organization [facility] Address [address] [place] [address] Phone Care Team Providers Care Salvage Diver Name Role Phone Nanci Trujillo MD Unavailable [phone] Azar Lara MD Unavailable Perez Alexander DO Primary Care Provider Reason for Referral * Diagnostic Imaging (Routine) - Closed Specialty Diagnoses / Procedures Referred By Contac t Referred To Contact Diagnoses Encounter for surgical aftercare following surgery on the circulatory system Procedures US Carotids Duplex Bilateral Nafisa Norris NP [address] [facility] [address] [place] [address] Phone: tel: fax: [facility] (All Locations) Referral ID Status Reason Start Date Expiration Date Visits Re quested Visits Authorized [id number] Closed 08/17/2023 09/15/2024 1 1 PHONE TRIAGE NURSE Reason for Visit * Reason Comments Return Patient Encounter Details Date Type Department Care Team (Late st Contact Info) Description 08/17/2023 11:30 AM TELEPHONE TRIAGE NURSE Office Visit [facility] Surgery [address] [facility] 8th [place] [address] [place] [id number] Nafisa Norris NP [address] [facility] [id number] [place] [address] Encounter for surgical aftercare following surgery on the circulatory system (Primary Dx) Social History Tobacco Use Types Packs/Day Years [...] on file Legal Sex Female 3:40 AM TELEPHONE TRIAGE NURSE Gender Identity Not on file Sexual Orientation Not on file documented as of this encounter Last Filed Vital Signs Vital Sign Reading Time Taken Comments Blood Pressure 170/66 08/17/2023 11:31 AM TELEPHONE TRIAGE NURSE Pulse 55 08/17/2023 11:31 AM TELEPHONE TRIAGE NURSE Temperature - - Respiratory Rate - - Oxygen Saturation 99% 08/17/2023 11:31 AM TELEPHONE TRIAGE NURSE Inhaled Oxygen Concentration - - Weight 83 kg (183 lb) 08/17/2023 11:31 AM TELEPHONE TRIAGE NURSE Height 170.2 cm (5' 7 ) 08/17/2023 11:31 AM TELEPHONE TRIAGE NURSE Body Mass Index 28.66 08/17/2023 11:31 AM TELEPHONE TRIAGE NURSE documented in this encounter Progress Notes * Nafisa Norris NP - 08/17/2023 11:30 AM CST Suma Saenz is a 77 y.o. female patient of Dr. Trujillo. She presents today for follow up of her carotid artery stenosis. She has a history of a previous right carotid endarterectomy by Dr. Trujillo on July. 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 Since last seen she states she is doing well with no significant complaint of unilateral weakness, slurred speech, facial drooping or temporary blindness. Current Outpatient Medications Medication Sig Dispense Refill acetaminophen 500 mg capsule Take 2 capsules (1,000 mg total) by mouth every 6 (six) hours as needed for pain 30 tablet allopurinoL (ZYLOPRIM) 100 mg tablet Take 1 tablet (100 mg total) by mouth nightly amLODIPine (NORVASC) 10 mg tablet Take 1 tablet (10 mg total) by mouth daily (Patient taking differently: Take 1 tablet (10 mg total) by mouth every morning) 30 tablet 11 aspirin 325 mg tablet take 1 tablet by oral route every day 0 0 atorvastatin (LIPITOR) 80 mg tablet take 1 tablet by oral route every day 0 0 biotin 10,000 mcg capsule Take 1 capsule (10,000 mcg total) by mouth 2 (two) times a day buPROPion XL (WELLBUTRIN XL) 150 mg 24 hr tablet take 1 tablet by oral route 2 times every day 0 0 carvediloL (COREG) 25 mg tablet Take 1 tablet (25 mg total) by mouth 2 (two) times a day (Patient taking differently: Take 1 tablet (25 mg total) by mouth 2 (two) times a day) 60 tablet 11 cetirizine (ZyrTEC) 10 mg tablet take 1 tablet by oral route every day 0 0 d-mannose powder Take 1 tablet by mouth 2 (two) times a day estradioL (ESTRACE) 0.01 % (0.1 mg/gram) vaginal cream Insert 1 g into the vagina 2 (two) times a week Thursday and thursday hydroCHLOROthiazide (HYDRODIURIL) 25 mg tablet Take 1 tablet (25 mg total) by mouth every morning Linzess 72 mcg capsule lisinopriL (PRINIVIL,ZESTRIL) 10 mg tablet Take 1 tablet (10 mg total) by mouth daily (Patient taking differently: Take 1 tablet (10 mg total) by mouth nightly) 30 tablet 11 medical cannabis each Take 1 Dose by mouth nightly mesalamine (DELZICOL) 400 mg capsule (with del rel tablets) montelukast (SINGULAIR) 10 mg tablet take 1 tablet by oral route every day in the evening 0 0 nitrofurantoin monohydrate (MACROBID) 100 mg capsule No current facility-administered medications for this visit. Allergies Allergen Reactions Naproxen Rash Nsaids (Non-Steroidal Anti-Inflammatory Drug) Hives Penicillins Rash Sulfa (Sulfonamide Antibiotics) Rash Social History Tobacco Use Smoking status: Former Types: Cigarettes Quit date: 2004 Years since quittin.9 Smokeless tobacco: Current Tobacco comments: Occasional nicorete use Substance and Sexual Activity Alcohol use: Yes Drug use: Yes Frequency: 7.0 times per week Types: Marijuana Comment: edibles- nightly Sexual activity: Defer On physical exam, this a pleasant female in no apparent distress. Vital signs today are BP 170/66 (BP Location: Left arm, Patient Position: Sitting) Pulse 55 Ht 170.2 cm (5' 7 ) Wt 83 kg (183 lb) SpO2 99% BMI 28.66 kg/m?? Her neck is supple with no carotid bruits. her heart rate is regular, she has equal upper extremity pulses. REVIEW of TESTING: Carotid Duplex Bilateral [facility] - Department of Vascular Surgery, Vascular Laboratory [address] [place] [id number] Carotid Duplex Ultrasound Report ---Preliminary--- Patient Name: SUMA SAENZ : 1945 (77y 7m) Study Date: 08/17/2023 11:00:52 AM Gender: F Tech: Location: [facility] Ref Provider: NANCI TRUJILLO Quality: Adequate [...] Measurements: Right Left Measurement Value Units Measurement Value Units RT Prox CCA PSV 122 cm/sec LT Prox CCA PSV 75 cm/sec RT Prox CCA EDV 9 cm/sec LT Prox CCA EDV 9 cm/sec RT Distal CCA PSV 100 cm/sec LT Distal CCA PSV 65 cm/sec RT Distal CCA EDV 12 cm/sec LT Distal CCA EDV 10 cm/sec RT Prox ICA PSV 85 cm/sec LT Prox ICA PSV 125 cm/sec RT Prox ICA EDV 12 cm/sec LT Prox ICA EDV 16 cm/sec RT Mid ICA PSV 116 cm/sec LT Mid ICA PSV 91 cm/sec RT Mid ICA EDV 22 cm/sec LT Mid ICA EDV 17 cm/sec RT Distal ICA PSV 63 cm/sec LT Distal ICA PSV 122 cm/sec RT Distal ICA EDV 13 cm/sec LT Distal ICA EDV 16 cm/sec RT ECA PSV 167 cm/sec LT ECA PSV 287 cm/sec RT ICA/CCA 1.16 ratio LT ICA/CCA 1.93 ratio RT VERT PSV 37 cm/sec LT VERT PSV 54 cm/sec - FINDINGS: Performing Brake Drum Lathe Operator: Angie Crain RVT. Rt Common Carotid Artery: The plaque in the right DISTAL CCA appears to be heterogeneous and regular. Atherosclerotic changes of the right common carotid artery with no hemodynamically significant Doppler findings. The proximal CCA (minimal plaque) and distal portion of the bypass graft(ascending aorta to CCA) are patent with no significant velocity elevation. Rt Internal Carotid Artery: Duplex [...] aorta to CCA) are patent with no significant velocity elevation Lt Internal Carotid Artery: The [...] legal record of any testing performed. ATTESTATION: Electronically Signed By: 2023-08-17 12:10:38 TELEPHONE TRIAGE NURSE PLAN: she is doing well and remains asymptomatic and should return to our office in one year with repeat carotid doppler or sooner should they develop any symptoms. Nafisa Norris NP Section of Vascular Surgery [facility] Perez Alexander DO Patrick Geraghty, MD PHONE TRIAGE NURSE documented in this encounter Plan of Treatment Not on file documented as of this encounter Results * US Carotids Duplex Bilateral (08/15/2024 11:35 AM TELEPHONE TRIAGE NURSE) Anatomical Region Laterality Modality Vascular Bilateral Ultrasound 08/15/2024 10:4 8 AM TELEPHONE TRIAGE NURSE Narrative 08/17/2024 12:46 AM TELEPHONE TRIAGE NURSE [facility] - Department of Vascular Surgery, Vascular Laboratory [address] [place] [address] Carotid Duplex Ultrasound Report Patient Name: SUMA SAENZ : 1945 (78y 7m) Study Date: 08/15/2024 10:48:44 AM Gender: F Tech: Location: [facility] Provider: NAFISA NORRIS Quality: Adequate [...] PSV ?53 cm/sec - ?? FINDINGS: Performing Brake Drum Lathe Operator: Diann Olea RVT, RDMS. Rt Common Carotid [...] that is provided above. Electronically Signed By: Nanci Trujillo MD FACS 08/17/2024 12:45:34 AM TELEPHONE TRIAGE NURSE Procedure Note Nanci Trujillo MD - 08/17/2024 [facility] - Department of Vascular Surgery,Vascular Laboratory [address] [place] [id number] Carotid Duplex Ultrasound Report Patient Name: SUMA SAENZ : 1945 (78y 7m) Study Date: 08/15/2024 10:48:44 AM Gender: F Tech: Location: [facility] Ref Provider: NAFISA NORRIS Quality: Adequate [...] VERT PSV 53 cm/sec - FINDINGS: Performing Brake Drum Lathe Operator: Diann Olea RVT, SELENE. Rt Common Carotid [...] that is provided above. Electronically Signed By: Nanci Trujillo MD [facility] 08/17/2024 12:45:34 AM TELEPHONE TRIAGE NURSE Nafisa Norris NP IMRUST PROCEDURES Final Result documented in this encounter Visit Diagnoses Diagnosis Encounter for surgical aftercare following surgery on the circulatory system- Primary Encounter for surgical aftercare following surgery on the circulatory system documented in this encounter Discontinued Medications Medication Sig Discontinue Reason Start Date End Da te mesalamine (PENTASA) 250 mg CR capsuleIndications:Ulcera tive Colitis Take 400 mg by mouth 2 (two) times a day 08/17/2023 Lactobacillus acidophilus capsule Take 1 tablet by mouth 2 (two) times a day 08/17/2023 documented as of this encounter Historical Medications * This list may reflect changes made after this encounter. Medication Sig Dispense Quantity Refills Last Filled Start D ate End Date mesalamine (DELZICOL) 400 mg capsule (with del rel tablets) 07/11/2023 nitrofurantoin monohydrate (MACROBID) 100 mg capsule 07/24/2023 Linzess 72 mcg capsule 07/11/2023 added in this encounter Care Teams Salvage Diver Relationship Specialty Start Date End Date Perez Alexander DO [facility] [place] [address] PCP - General Family Medicine 07/01/22 Nanci Trujillo MD Surgeon Vascular Surgery 10/12/19 Azar Lara MD Surgeon Cardiothoracic Surgery 10/27/19 documented as of this encounter
--- OUTSIDE RECORDS SUMMARY | 2024-09-08 08:21 | XMS_ITS | Encounter Summary ---
Author Organization [facility] Healthcare Address [address] [place] [address] Care Team Providers Care Health Spa Manager Name Role Phone Zachary Giron MD Unavailable [phone] Azar Lara MD Unavailable Perez Alexander DO Primary Care Provider Reason for Visit * Cardiology (Routine) - Closed Specialty Diagnoses / Procedures Referred By Contac t Referred To Contact Diagnoses Cerebrovascular accident (CVA), unspecified mechanism (HCC) Procedures Transthoracic Echo (TTE) Limited/Followup Marco A Antoine MD Phone: tel: fax: [facility] Referral ID Status Reason Start Date Expiration Date Visits Re quested Visits Authorized [id number] Closed 09/24/2023 10/23/2024 1 1 Encounter Details Date Type Department Care Team (Latest Contact Info) Description 11/06/2023 1:00 PM PRODUCT MANUFACTURING PROFESSIONAL Ancillary Procedure [facility] Cardiology [address] [place] [address] Cerebrovascular accident (CVA), unspecified mechanism (HCC) Social History Tobacco Use Types Packs/Day Years [...] on file Legal Sex Female 3:40 AM PRODUCT MANUFACTURING PROFESSIONAL Gender Identity Not on file Sexual Orientation Not on file documented as of this encounter Last Filed Vital Signs Vital Sign Reading Time Taken Comments Blood Pressure 182/96 11/06/2023 1:31 PM PRODUCT MANUFACTURING PROFESSIONAL Pulse - - Temperature - - Respiratory Rate - - Oxygen Saturation - - Inhaled Oxygen Concentration - - Weight - - Height - - Body Mass Index - - documented in this encounter Plan of Treatment Not on file documented as of this encounter Procedures Procedure Name Priority Date/Time Associated Diagnosis Comments TRANSTHORACIC ECHO (TTE) LIMITED/FOLLOW UP W LTD DOPPLER/CF WO CONTRAST Routine 11/06/2023 1:33 PM PRODUCT MANUFACTURING PROFESSIONAL Cerebrovascular accident (CVA), unspecified mechanism (HCC) documented in this encounter Results * TRANSTHORACIC ECHO (TTE) LIMITED/FOLLOW UP W LTD DOPPLER/CF WO CONTRAST (11/06/2023 1:33 PM PRODUCT MANUFACTURING PROFESSIONAL) Anatomical Region Laterality Modality Ultrasound 11/06/2023 1:13 PM PRODUCT MANUFACTURING PROFESSIONAL Narrative 11/06/2023 4:45 PM PRODUCT MANUFACTURING PROFESSIONAL [facility] Cardiology [address] [facility] [address] [id number] [address] [facility] [address], [place] [address] P:[phone] P:[phone] Echocardiogram Report Patient Name: SUMA SAENZ K : 1945 Study Date: 11/06/2023 1:13:58 PM Gender: F Tech: ILIR Ref Provider: MARCO A ANTOINE Height(Cm): 170 BSA: 1.98 Weight(Kg): 83 ?Heart Rate: 65 Quality: Good Order Provider: MARCO A ANTOINE PROCEDURES: Echocardiographic Report: Saline Contrast Study. INDICATIONS: Cerebrovascular Accident. Measurements: FINDINGS: Interpretation Site: Exam was interpreted at [facility]. Atrial Septum: Saline contrast study performed without evidence of right to left shunt. CONCLUSIONS: Saline contrast study performed without evidence of right to left shunt. Negative bubble study. Electronically Signed By: Fabian Mcintosh MD 2023-11-06 16:44:24 PRODUCT MANUFACTURING PROFESSIONAL Procedure Note Fabian Mcintosh MD - 11/06/2023 [facility] Cardiology [address] [facility] [address] [place] [address] [address] [facility] [address], [place] [address] P:[phone] P:[phone] Echocardiogram Report Patient Name: SUMA SAENZ K : 1945 Study Date: 11/06/2023 1:13:58 PM Gender: F Tech: Ref Provider: MARCO A ANTOINE Height(Cm): 170 BSA: 1.98 Weight(Kg): 83 Heart Rate: 65 Quality: Good Order Provider: MARCO A ANTOINE PROCEDURES: Echocardiographic Report: Saline Contrast Study. INDICATIONS: Cerebrovascular Accident. Measurements: FINDINGS: Interpretation Site: Exam was interpreted at [facility]. Atrial Septum: Saline contrast study performed without evidence of right to left shunt. CONCLUSIONS: Saline contrast study performed without evidence of right to left shunt. Negative bubble study. Electronically Signed By: Fabian Mcintosh MD 2023-11-06 16:44:24 PRODUCT MANUFACTURING PROFESSIONAL Marco A Antoine MD CV ECHO PROCEDURES Final Result documented in this encounter Visit Diagnoses Diagnosis Cerebrovascular accident (CVA), unspecified mechanism (HCC) documented in this encounter Care Teams Health Spa Manager Relationship Specialty Start Date End Date Perez Alexander DO [address] [place] [address] PCP - General Family Medicine 07/01/22 Zachary Giron MD Surgeon Vascular Surgery 10/12/19 Azar Lara MD Surgeon Cardiothoracic Surgery 10/27/19 documented as of this encounter
--- OUTSIDE RECORDS SUMMARY | 2024-09-08 08:21 | XMS_ITS | Encounter Summary ---
Author Organization [facility] Address [address] [place] [address] Phone Care Team Providers Care Esthetician Facialist Name Role Phone Nanci Trujillo MD Unavailable [phone] Azar Lara MD Unavailable Perez Alexander DO Primary Care Provider Reason for Referral * Diagnostic Imaging (Routine) - Closed Specialty Diagnoses / Procedures Referred By Contac t Referred To Contact Diagnoses Encounter for surgical aftercare following surgery on the circulatory system Procedures US Carotids Duplex Bilateral Nanci Trujillo MD [address] [facility] [address] [place] [address] Phone: tel: fax: [facility] (All Locations) Referral ID Status Reason Start Date Expiration Date Visits Re quested Visits Authorized [id number] Closed 07/17/2022 08/16/2023 99 99 MACOMETRICIAN Encounter Details Date Type Department Care Team (Late st Contact Info) Description 07/17/2022 Orders Only [facility] Surgery [address] [facility] 8th [place] [address] [place] [address] Nanci Trujillo MD [address] [facility] [address] [place] [address] [phone] (work) Encounter for surgical aftercare following surgery on [...] drinks on one occasion? Never 07/03/2022 Comments Unknown Sex and Gender Information Value Date Recorded Sex Assigned at Not on file Legal Sex Female 3:40 AM PHARMACOMETRICIAN Gender Identity Not on file Sexual Orientation Not on file documented as of this encounter Plan of Treatment Not on file documented as of this encounter Results * US Carotids Duplex Bilateral (08/19/2022 10:54 AM PHARMACOMETRICIAN) Anatomical Region Laterality Modality Vascular Bilateral Ultrasound 08/19/2022 9:15 AM PHARMACOMETRICIAN Narrative 08/19/2022 3:46 PM PHARMACOMETRICIAN [facility] - Department of Vascular Surgery, Vascular Laboratory [address] [place] [address] Carotid Duplex Ultrasound Report Patient Name: SUMA SAENZ : 1945 (76y 7m) Study Date: 08/19/2022 9:15:17 AM Gender: F Tech: Location: [facility] Ref.Provider: NANCI TRUJILLO Quality: Adequate Order Provider: NANCI TRUJILLO Procedures: Carotid Report: Carotid duplex examination of the extracranial arteries was performed using 2D, color and spectral Doppler. Indications: Encounter for Surgical Aftercare Following Surgery on the Circulatory System; s/p right CEA. Measurements: Right Carotid ? Left Carotid ? Measurement ?Value ?Units ? Measurement ?Value ?Units ? RT Prox CCA PSV ?112 ?cm/sec ?LT Prox CCA PSV ?175 ?cm/sec ? RT Prox CCA EDV ?21 ? cm/sec ?LT Prox CCA EDV ?21 ? cm/sec ? RT Distal CCA PSV ?81 ? cm/sec ?LT Distal CCA PSV ?79 ? cm/sec ? RT Distal CCA EDV ?16 ? cm/sec ?LT Distal CCA EDV ?15 ? cm/sec ? RT Prox ICA PSV ?93 ? cm/sec ?LT Prox ICA PSV ?156 ?cm/sec ? RT Prox ICA EDV ?26 ? cm/sec ?LT Prox ICA EDV ?29 ? cm/sec ? RT Mid ICA PSV ? 107 ?cm/sec ?LT Mid ICA PSV ? 85 ? cm/sec ? RT Mid ICA EDV ? 30 ? cm/sec ?LT Mid ICA EDV ? 20 ? cm/sec ? RT Distal ICA PSV ?81 ? cm/sec ?LT Distal ICA PSV ?85 ? cm/sec ? RT Distal ICA EDV ?19 ? cm/sec ?LT Distal ICA EDV ?20 ? cm/sec ? RT ECA PSV ? 139 ?cm/sec ?LT ECA PSV ? 329 ?cm/sec ? RT ICA/CCA ? 1.31 ? ratio ? LT ICA/CCA ? 1.97 ? ratio ? RT VERT PSV ?32 ? cm/sec ?LT VERT PSV ?47 ? cm/sec ? Measurement ?Value ?Units ? Measurement ?Value ?Units ? Right Carotid ? Left Carotid ? - Findings: Performing Managed Care Liaison: Grisel Atkinson RVT. Rt Common Carotid Artery: The plaque in the right CCA appears to be heterogeneous and smooth. Atherosclerotic changes of the right common carotid artery with no hemodynamically significant Doppler findings. Rt Internal Carotid Artery: Duplex imaging of the right internal carotid artery is within normal limits without evidence for atherosclerotic disease. Rt External Carotid Artery: The right external carotid artery is patent without evidence of atherosclerotic plaque. Rt Vertebral Artery: Bidirectional flow in the right vertebral artery maybe consistent with ipsilateral subclavian artery stenosis or occlusion. Lt Common Carotid Artery: The plaque in the left CCA appears to be heterogeneous and irregular. Atherosclerotic changes of the left common carotid artery with hemodynamically significant Doppler findings; elevated peak systolic velocity as above. Lt Internal Carotid Artery: The plaque in the left internal carotid artery appears to be heterogeneous, calcified and irregular. Atherosclerotic changes of the left internal carotid artery without hemodynamically significant Doppler findings. <50% stenosis. Lt External Carotid Artery: Patent left external carotid artery with evidence of atherosclerotic disease present. Lt Vertebral Artery: The left vertebral artery is patent with antegrade flow. Comments: Incidental finding: Non-vascular heterogenous complex structure noted medial to left common carotid artery, may be consistent with thyroid nodule. Unable to visualize a 1.38cm segment of the left proximal ICA due to calcific shadowing. Conclusions: 1. Normal right internal carotid artery, no evidence of significant plaque. 2. The left internal carotid artery disease is consistent with a less than 50% stenosis. 3. No evidence of hemodynamically significant stenosis in the right common carotid artery. 4. Atherosclerotic changes of the left common carotid artery with hemodynamically significant Doppler findings. 5. Bidirectional flow in the right vertebral artery maybe consistent with ipsilateral subclavian artery stenosis or occlusion. 6. Normal, antegrade flow is noted in the left vertebral artery. History: 10/21/2019 s/p bypass from the aorta to the right axillary artery as well as a bifurcated bypass from the ascending aorta to the right common carotid artery and the left common carotid artery. ??07/17/2022 Right carotid endarterectomy. Previous Studies: Disclaimer: The signing physician has reviewed all images pertaining to this test. These images and this report will be retained in the patient chart by the Vascular Laboratory for the legally required time period. This chart constitutes the legal record of any testing performed. Electronically Signed By: Charanjit Cruz MD [facility] [phone] 2022-08-19 15:46:42 PHARMACOMETRICIAN CC: CC: Procedure Note Charanjit Cruz MD - 08/19/2022 [facility] - Department of Vascular Surgery,Vascular Laboratory [address] [place] [address] Carotid Duplex Ultrasound Report Patient Name: SUMA SAENZPatient ID: [id number] : 1945 (76y 7m)Study Date: 08/19/2022 9:15:17 AM Gender: FAccession #: [id number] Tech: DRLocation: [facility] Ref.Provider: NANCI TRUJILLOQuality: Adequate Order Provider: NANCI TRUJILLOAccount #: [id number] Procedures: Carotid Report: Carotid duplex examination of the extracranial arterieswas performed using 2D, color and spectral Doppler. Indications: Encounter for Surgical Aftercare Following Surgery on the CirculatorySystem; s/p right CEA. Measurements: Right Carotid Left Carotid Measurement Value Units Measurement ValueUnits RT Prox CCA PSV 112 cm/sec LT Prox CCA PSV 175cm/sec RT Prox CCA EDV 21 cm/sec LT Prox CCA EDV 21cm/sec RT Distal CCA PSV 81 cm/sec LT Distal CCA PSV 79cm/sec RT Distal CCA EDV 16 cm/sec LT Distal CCA EDV 15cm/sec RT Prox ICA PSV 93 cm/sec LT Prox ICA PSV 156cm/sec RT Prox ICA EDV 26 cm/sec LT Prox ICA EDV 29cm/sec RT Mid ICA PSV 107 cm/sec LT Mid ICA PSV 85cm/sec RT Mid ICA EDV 30 cm/sec LT Mid ICA EDV 20cm/sec RT Distal ICA PSV 81 cm/sec LT Distal ICA PSV 85cm/sec RT Distal ICA EDV 19 cm/sec LT Distal ICA EDV 20cm/sec RT ECA PSV 139 cm/sec LT ECA PSV 329cm/sec RT ICA/CCA 1.31 ratio LT ICA/CCA 1.97ratio RT VERT PSV 32 cm/sec LT VERT PSV 47cm/sec Measurement Value Units Measurement ValueUnits Right Carotid Left Carotid - Findings: Performing Managed Care Liaison: Grisel Atkinson, RVT. Rt Common Carotid Artery: The plaque in the right CCA appears to beheterogeneous and smooth. Atherosclerotic changes of the right common carotid artery with no hemodynamically significant Doppler findings. Rt Internal Carotid Artery: Duplex imaging of the right internal carotidartery is within normal limits without evidence for atherosclerotic disease. Rt External Carotid Artery: The right external carotid artery is patentwithout evidence of atherosclerotic plaque. Rt Vertebral Artery: Bidirectional flow in the right vertebral arterymaybe consistent with ipsilateral subclavian artery stenosis or occlusion. Lt Common Carotid Artery: The plaque in the left CCA appears to beheterogeneous and irregular. Atherosclerotic changes of the left common carotid artery withhemodynamically significant Doppler findings; elevated peak systolic velocity as above. Lt Internal Carotid Artery: The plaque in the left internal carotid arteryappears to be heterogeneous, calcified and irregular. Atherosclerotic changes of theleft internal carotid artery without hemodynamically significant Doppler findings. <50%stenosis. Lt External Carotid Artery: Patent left external carotid artery withevidence of atherosclerotic disease present. Lt Vertebral Artery: The left vertebral artery is patent with antegradeflow. Comments: Incidental finding: Non-vascular heterogenous complex structurenoted medial to left common carotid artery, may be consistent with thyroid nodule. Unableto visualize a 1.38cm segment of the left proximal ICA due to calcific shadowing. Conclusions: 1. Normal right internal carotid artery, no evidence of significantplaque. 2. The left internal carotid artery disease is consistent with a less than50% stenosis. 3. No evidence of hemodynamically significant stenosis in the right commoncarotid artery. 4. Atherosclerotic changes of the left common carotid artery withhemodynamically significant Doppler findings. 5. Bidirectional flow in the right vertebral artery maybe consistent withipsilateral subclavian artery stenosis or occlusion. 6. Normal, antegrade flow is noted in the left vertebral artery. History: 10/21/2019 s/p bypass from the aorta to the right axillary arteryas well as a bifurcated bypass from the ascending aorta to the right common carotidartery and the left common carotid artery. 07/17/2022 Right carotid endarterectomy. Previous Studies: Disclaimer: The signing physician has reviewed all images pertaining tothis test. These images and this report will be retained in the patient chart by theVascular Laboratory for the legally required time period. This chart constitutes the legalrecord of any testing performed. Electronically Signed By: Charanjit Cruz MD [facility] [phone] 2022-08-19 15:46:42 PHARMACOMETRICIAN CC: CC: Nanci Trujillo MD [facility] [place] PROCEDURES Final R esult documented in this encounter Visit Diagnoses Diagnosis Encounter for surgical aftercare following surgery on the circulatory system- Primary Encounter for surgical aftercare following surgery on the circulatory system documented in this encounter Care Teams Esthetician Facialist Relationship Specialty Start Date End Date Perez Alexander DO [address] [place] [address] PCP - General Family Medicine 07/01/22 Nanci Trujillo MD Surgeon Vascular Surgery 10/12/19 Azar Lara MD Surgeon Cardiothoracic Surgery 10/27/19 documented as of this encounter
--- OUTSIDE RECORDS SUMMARY | 2024-09-08 08:21 | XMS_ITS | Encounter Summary ---
Author Organization [facility] Address [address] [place] [address] Care Team Providers Care Dock Manager Name Role Phone Zachary Giron MD Unavailable [phone] Azar Lara MD Unavailable Perez Alexander DO Primary Care Provider Reason for Visit * Cardiology (Routine) - Closed Specialty Diagnoses / Procedures Referred By Contac t Referred To Contact Diagnoses Mixed hyperlipidemia Labile hypertension History of ischemic left MCA stroke Aortic valve insufficiency, etiology of cardiac valve disease unspecified Stenosis of brachiocephalic artery (CMS/HCC) (HCC) Procedures Transthoracic Echo (TTE) Complete W Doppler/CF Marco A Antoine MD Phone: tel: fax: [facility] Referral ID Status Reason Start Date Expiration Date Visits Re quested Visits Authorized [id number] Closed 07/27/2023 08/25/2024 1 1 Encounter Details Date Type Department Care Team (Latest Contact Info) Description 09/23/2023 1:00 PM SLIDE MAKER Ancillary Procedure [facility] Cardiology [address] [place] [address] Mixed hyperlipidemia; Labile hypertension; History of ischemic left MCA stroke; Aortic valve insufficiency, etiology of cardiac valve disease unspecified; Stenosis of brachiocephalic artery (CMS/HCC) (HCC) Social History Tobacco Use Types Packs/Day [...] on file Legal Sex Female 3:40 AM SLIDE MAKER Gender Identity Not on file Sexual Orientation Not on file documented as of this encounter Last Filed Vital Signs Vital Sign Reading Time Taken Comments Blood Pressure 147/66 09/23/2023 1:40 PM SLIDE MAKER Pulse - - Temperature - - Respiratory Rate - - Oxygen Saturation - - Inhaled Oxygen Concentration - - Weight - - Height - - Body Mass Index - - documented in this encounter Plan of Treatment Not on file documented as of this encounter Procedures Procedure Name Priority Date/Time Associated Diagnosis Comments TRANSTHORACIC ECHO (TTE) COMPLETE W DOPPLER/CF WO CONTRAST Routine 09/23/2023 1:40 PM SLIDE MAKER Mixed hyperlipidemia Labile hypertension History of ischemic left MCA stroke Aortic valve insufficiency, etiology of cardiac valve disease unspecified Stenosis of brachiocephalic artery (CMS/HCC) (HCC) documented in this encounter Results * TRANSTHORACIC ECHO (TTE) COMPLETE W DOPPLER/CF WO CONTRAST (09/23/2023 1:40 PM SLIDE MAKER) Anatomical Region Laterality Modality Ultrasound 09/23/2023 1:06 PM SLIDE MAKER Narrative 09/23/2023 4:34 PM SLIDE MAKER [facility] Cardiology [address] [facility] [address], [place] [address] [address] [facility] [address], [place] [address] P:[phone] P:[phone] Echocardiographic Report Patient Name: SUMA SAENZ K : 1945 Study Date: 09/23/2023 1:06:29 PM Gender: F Tech: Location: [place] Ref Provider: MARCO A ANTOINE ?Height(Cm): 170 BSA: 1.98 Weight(Kg): 83 Heart Rate: 57 BP: 147 / 66 Quality: Good Order Provider: MARCO A ANTOINE PROCEDURES: Echocardiographic Report: Transthoracic echocardiogram with complete 2D, M-Mode, and color Doppler examination. With Strain Analysis. INDICATIONS: Brachiocephalic artery stenosis, h/o ischemic L MCA stroke, Aortic Insufficiency, Hyperlipidemia, and Hypertension. Measurements: 2D/M Mode ?Doppler Measurement ?Value ?Normal Range ?Measurement ?Value ?Normal Range LVIDd 2D ? 5.40 ? [ 3.80 - 5.20 ] cm ?RONNIE Vmax ? 2.39 ? [ 2.00 - 4.00 ] cm2 LVIDs 2D ? 4.04 ? [ 2.20 - 3.50 ] cm ?AV Mean PG ? 3 ?mmHg LVPWd 2D ? 1.14 ? [ 0.60 - 0.90 ] cm ?AV Peak Janes ?1.22 ? [ 1.00 - 1.70 ] m/s IVSd 2D ?1.09 ? [ 0.60 - 0.90 ] cm ?AV Peak PG ? 6 ?mmHg LA Volume Index ?25 ? [ 16 - 34 ] cc/m2 ? AV VTI ? 29.98 ?cm LVOT Diam ?2.04 ?[ 1.70 - 2.10 ] cm LVOT Peak Janes ?0.89 ?[ 0.70 - 1.10 ] m/s LVOT VTI ? 21.05 ? cm MV E Peak Janes ?0.39 ?[ 0.60 - 1.30 ] m/s MV A Peak Janes ?0.52 ?[ 1.00 - 1.20 ] m/s MV Decel Time ?307 ? [ 104 - 258 ] msec Lateral E` ? 0.10 ?[ 0.10 - 0.15 ] m/s E` ? 0.05 ?m/s E/E` ? 4 Measurement ?Value ?Normal Range ?Measurement ?Value ?Normal Range 2D/M Mode ?Doppler - FINDINGS: Interpretation Site: Exam was interpreted at [facility]. Left Ventricle: Normal left ventricular systolic function. No focal wall motion abnormalities. Mild concentric left ventricular hypertrophy. Mild enlargement of left ventricle cavity. Impaired diastolic relaxation Grade I. Ejection fraction is visually estimated at 60-65 %. Ejection fraction is measured at 58 %. Global Longitudinal Strain is -19 %. GLS is normal. Right Ventricle: Normal right ventricular size. Normal right ventricular systolic function. Left Atrium: There is mild enlargement of left atrium. Right Atrium: The right atrium is normal in size. Atrial Septum: Atrial septum color Doppler interrogation consistent with a PFO. Mitral Valve: Normal appearance of the mitral valve. Mild mitral valve regurgitation. There is no hemodynamically significant mitral stenosis by Doppler. Aortic Valve: No evidence of hemodynamically significant aortic stenosis by Doppler. Aortic cusps appear mildly sclerotic. Trileaflet aortic valve. Moderate aortic valve regurgitation. Tricuspid Valve: Normal appearance of the tricuspid valve. Right ventricular systolic pressure could not be estimated due to inadequate visualization of the tricuspid regurgitation jet. Mild tricuspid regurgitation. Pulmonic Valve: Normal appearance of the pulmonic valve. No pulmonic stenosis. Trivial regurgitation in the pulmonic valve. Pericardium: Normal pericardium with no significant pericardial effusion. Aorta: Normal aortic root. IVC: Normal size and normal respiratory collapse consistent with normal right atrial pressure (<5 mmHg). CONCLUSIONS: Normal left ventricular systolic function. No focal wall motion abnormalities. Mild concentric left ventricular hypertrophy. Mild enlargement of left ventricle cavity. Impaired diastolic relaxation Grade I. Ejection fraction is visually estimated at 60-65 %. Ejection fraction is measured at 58 %. Global Longitudinal Strain is -19 %. GLS is normal. There is mild enlargement of left atrium. Atrial septum color Doppler interrogation consistent with a PFO. Mild mitral valve regurgitation. Aortic cusps appear mildly sclerotic. Moderate aortic valve regurgitation. Mild tricuspid regurgitation. Normal sinus rhythm. Electronically Signed By: Adrien Aly MD 2023-09-23 16:34:13 SLIDE MAKER Procedure Note Adrien Aly MD - 09/23/2023 [facility] Cardiology [address], [place] [address] [address], [place] [address] [phone] P:[phone] Echocardiographic Report Patient Name: SUMA SAENZ K : 1945 Study Date: 09/23/2023 1:06:29 PM Gender: F Tech: Location: [place] Ref Provider: MARCO A ANTOINE Height(Cm): 170 BSA: 1.98 Weight(Kg): 83 Heart Rate: 57 BP: 147 / 66 Quality: Good Order Provider: MARCO A ANTOINE PROCEDURES: Echocardiographic Report: Transthoracic echocardiogram with complete 2D, M-Mode, and color Dopplerexamination. With Strain Analysis. INDICATIONS: Brachiocephalic artery stenosis, h/o ischemic L MCA stroke, AorticInsufficiency, Hyperlipidemia, and Hypertension. Measurements: 2D/M ModeDoppler Measurement Value Normal Range MeasurementValue Normal Range LVIDd 2D 5.40 [ 3.80 - 5.20 ] cm RONNIE Vmax2.39 [ 2.00 - 4.00 ] cm2 LVIDs 2D 4.04 [ 2.20 - 3.50 ] cm AV Mean PG3 mmHg LVPWd 2D 1.14 [ 0.60 - 0.90 ] cm AV Peak Vel1.22 [ 1.00 - 1.70 ] m/s IVSd 2D 1.09 [ 0.60 - 0.90 ] cm AV Peak PG6 mmHg LA Volume Index 25 [ 16 - 34 ] cc/m2 AV VTI29.98 cm LVOT Diam 2.04 [ 1.70 - 2.10 ] cm LVOT Peak Janes 0.89 [ 0.70 - 1.10 ] m/s LVOT VTI 21.05 cm MV E Peak Janes 0.39 [ 0.60 - 1.30 ] m/s MV A Peak Janes 0.52 [ 1.00 - 1.20 ] m/s MV Decel Time 307 [ 104 - 258 ] msec Lateral E` 0.10 [ 0.10 - 0.15 ] m/s E` 0.05 m/s E/E` 4 Measurement Value Normal Range MeasurementValue Normal Range 2D/M ModeDoppler - FINDINGS: Interpretation Site: Exam was interpreted at [facility]. Left Ventricle: Normal left ventricular systolic function. No focal wall motionabnormalities. Mild concentric left ventricular hypertrophy. Mild enlargement of leftventricle cavity. Impaired diastolic relaxation Grade I. Ejection fraction is visuallyestimated at 60-65 %. Ejection fraction is measured at 58 %. Global Longitudinal Strain is-19 %. GLS is normal. Right Ventricle: Normal right ventricular size. Normal right ventricular systolicfunction. Left Atrium: There is mild enlargement of left atrium. Right Atrium: The right atrium is normal in size. Atrial Septum: Atrial septum color Doppler interrogation consistent with a PFO. Mitral Valve: Normal appearance of the mitral valve. Mild mitral valve regurgitation.There is no hemodynamically significant mitral stenosis by Doppler. Aortic Valve: No evidence of hemodynamically significant aortic stenosis by Doppler.Aortic cusps appear mildly sclerotic. Trileaflet aortic valve. Moderate aortic valveregurgitation. Tricuspid Valve: Normal appearance of the tricuspid valve. Right ventricular systolicpressure could not be estimated due to inadequate visualization of the tricuspidregurgitation jet. Mild tricuspid regurgitation. Pulmonic Valve: Normal appearance of the pulmonic valve. No pulmonic stenosis. Trivialregurgitation in the pulmonic valve. Pericardium: Normal pericardium with no significant pericardial effusion. Aorta: Normal aortic root. IVC: Normal size and normal respiratory collapse consistent with normal rightatrial pressure (<5 mmHg). CONCLUSIONS: Normal left ventricular systolic function. No focal wall motionabnormalities. Mild concentric left ventricular hypertrophy. Mild enlargement of leftventricle cavity. Impaired diastolic relaxation Grade I. Ejection fraction is visuallyestimated at 60-65 %. Ejection fraction is measured at 58 %. Global Longitudinal Strain is-19 %. GLS is normal. There is mild enlargement of left atrium. Atrial septum color Doppler interrogation consistent with a PFO. Mild mitral valve regurgitation. Aortic cusps appear mildly sclerotic. Moderate aortic valveregurgitation. Mild tricuspid regurgitation. Normal sinus rhythm. Electronically Signed By: Adrien Aly MD 2023-09-23 16:34:13 SLIDE MAKER Marco A Antoine MD CV ECHO PROCEDURES Final Result documented in this encounter Visit Diagnoses Diagnosis Mixed hyperlipidemia Labile hypertension History of ischemic left MCA stroke Aortic valve insufficiency, etiology of cardiac valve disease unspecified 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 documented in this encounter Care Teams Dock Manager Relationship Specialty Start Date End Date Catherine Perezeric Mc DO [address] [place] [address] PCP - General Family Medicine 07/01/22 Zachary Giron MD Surgeon Vascular Surgery 10/12/19 Azar Lara MD Surgeon Cardiothoracic Surgery 10/27/19 documented as of this encounter
--- OUTSIDE RECORDS SUMMARY | 2024-09-08 08:21 | XMS_ITS | Encounter Summary ---
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 Name Role Phone Nanci Trujillo MD Unavailable [phone] Azar Lara MD Unavailable Perez Alexander DO Primary Care Provider Reason for Referral * Diagnostic Imaging (Routine) - Closed Specialty Diagnoses / Procedures Referred By Khadijah ricks Referred To Contact Diagnoses Carotid artery disease (HCC) Encounter for surgical aftercare following surgery on the circulatory system Aftercare following surgery of the circulatory system, NEC Procedures US Carotids Duplex Bilateral Nanci Trujillo MD [address] [facility] [address] [place] [address] Phone: tel: fax: [facility] (All Locations) Referral ID Status Reason Start Date Expiration Date Visits Re quested Visits Authorized [id number] Closed 08/19/2022 09/18/2023 99 99 OLOGY TRANSCRIPTIONIST Reason for Visit * Consultation (Routine) - Closed Specialty Diagnoses / Procedures Referred By Khadijah ricks Referred To Contact Vascular Surgery Diagnoses Carotid artery disease (HCC) Nanci Trujillo MD [address] [facility] [address] [place] [address] Phone: tel: fax: Nanci Trujillo MD [address] [facility] [address] [place] [address] Phone: tel: fax: Referral ID Status Reason Start Date Expiration Date V isits Requested Visits Authorized [id number] Closed Specialty Services Required 07/22/2022 08/21/2023 12 12 Encounter Details Date Type Department Care Team (Late st Contact Info) Description 08/19/2022 10:00 AM RADIOLOGY TRANSCRIPTIONIST Office Visit [facility] Surgery [address] [place] [address] [place] [id number] Nanci Trujillo MD [address] [facility] [address] [place] [address] Encounter for surgical aftercare following surgery on the circulatory system (Primary Dx); Carotid artery disease (CMS/HCC) (HCC); Aftercare following surgery of the circulatory system, [...] on file Legal Sex Female 3:40 AM RADIOLOGY TRANSCRIPTIONIST Gender Identity Not on file Sexual Orientation Not on file documented as of this encounter Last Filed Vital Signs Vital Sign Reading Time Taken Comments Blood Pressure 153/64 08/19/2022 10:36 AM RADIOLOGY TRANSCRIPTIONIST Pulse 65 08/19/2022 10:36 AM RADIOLOGY TRANSCRIPTIONIST Temperature - - Respiratory Rate - - Oxygen Saturation 98% 08/19/2022 10:36 AM RADIOLOGY TRANSCRIPTIONIST Inhaled Oxygen Concentration - - Weight 82.1 kg (181 lb) 08/19/2022 10:36 AM RADIOLOGY TRANSCRIPTIONIST Height 170.2 cm (5' 7 ) 08/19/2022 10:36 AM RADIOLOGY TRANSCRIPTIONIST Body Mass Index 28.35 08/19/2022 10:36 AM RADIOLOGY TRANSCRIPTIONIST documented in this encounter Progress Notes * Nanci Trujillo MD - 08/19/2022 10:00 AM CST Images from the original note were not included. Vascular Clinic Note- Established Patient Suma Saenz is a 76 y.o. female who is seen in follow-up for right carotid endarterectomy. HPI: This nice lady has undergone multivessel aortic arch revascularization in the past. More recently, I performed a right carotid endarterectomy for a progressively severe lesion last month. She recovered nicely from that and today's carotid duplex scan shows less than 50% stenosis in the carotidarteries bilaterally. Allergies Allergen Reactions Naproxen Rash Nsaids (Non-Steroidal Anti-Inflammatory Drug) Hives Penicillins Rash Sulfa (Sulfonamide Antibiotics) Rash Current Outpatient Medications Medication Sig Dispense Refill acetaminophen 500 mg capsule Take 2 capsules (1,000 mg total) by mouth every 6 (six) hours as needed for pain 30 tablet allopurinoL (ZYLOPRIM) 100 mg tablet Take 100 mg by mouth nightly amLODIPine (NORVASC) 10 mg tablet Take 1 tablet (10 mg total) by mouth daily (Patient taking differently: Take 10 mg by mouth every morning) 30 tablet 11 aspirin 325 mg tablet take 1 tablet by oral route every day 0 0 atorvastatin (LIPITOR) 80 mg tablet take 1 tablet by oral route every day 0 0 biotin 10,000 mcg capsule Take 10,000 mcg by mouth 2 (two) times a day buPROPion XL (WELLBUTRIN XL) 150 mg 24 hr tablet take 1 tablet by oral route 2 times every day 0 0 carvediloL (COREG) 25 mg tablet Take 1 tablet (25 mg total) by mouth 2 (two) times a day (Patient taking differently: Take 25 mg by mouth 2 (two) times a day) [...] thursday hydroCHLOROthiazide (HYDRODIURIL) 25 mg tablet Take 25 mg by mouth every morning Lactobacillus acidophilus capsule Take 1 tablet by mouth 2 (two) times a day lisinopriL (PRINIVIL,ZESTRIL) 10 mg tablet Take 1 tablet (10 mg total) by mouth daily (Patient taking differently: Take 10 mg by mouth nightly) 30 tablet 11 medical cannabis each Take 1 Dose by mouth nightly mesalamine (PENTASA) 250 mg CR capsule Take 400 mg by mouth 2 (two) times a day montelukast (SINGULAIR) 10 mg tablet take 1 tablet by oral route every day in the evening 0 0 No current facility-administered medications for this visit. Past Medical History: Diagnosis Date Anxiety Back pain Carotid stenosis Degenerative disc disease at L5-S1 level Depression Orthostatic hypotension PONV (postoperative nausea and vomiting) nausea relieved with IV medications Syncope 10/18/2019 Past Surgical History: Procedure Laterality Date APPENDECTOMY 2010 BOWEL RESECTION 2019 CARDIAC CATHETERIZATION 10/18/2019 CAROTID ENDARTERECTOMY Right 2021 w/patch CARPAL TUNNEL RELEASE 11/13/2005 1. Surgical release of compression of the median nerve, right wrist; surgical release of tenosynovitis of the right ring finger; and surgical release of tenosynovitis of the right middle finger. CATARACT EXTRACTION EXTRACAPSULAR W/ INTRAOCULAR LENS IMPLANTATION Bilateral 2017 Social History Tobacco Use Smoking status: Former Types: Cigarettes Quit date: 2004 Years since quittin.9 Smokeless tobacco: Current Tobacco comments: Occasional nicorete use Substance and Sexual Activity Drug use: Yes Frequency: 7.0 times per week Types: Marijuana Comment: edibles- nightly Sexual activity: Defer Alcohol Use: Not At Risk Frequency of Alcohol Consumption: 4 or more times a week Average Number of Drinks: 1 or 2 Frequency of Binge Drinking: Never Social History Social History Narrative Occasional alcohol use : (Added by TW Conv) Family History Problem Relation Age of Onset Heart disease Mother Heart disease; /Family history of cardiac disorder - (Added by TW Conv) Stroke Father Stroke; Heart disease Father Family history of cardiac disorder - (Added by TW Conv) Anesthesia problems Neg Hx Malig Hypertension Neg Hx Malig Hyperthermia Neg Hx Pseudochol deficiency Neg Hx ROS: I reviewed the Patient Health History Form, which will be scanned into the EMR. Pertinent positives include: None. Otherwise negative throughout. PHYSICAL EXAM: BP 153/64 Pulse 65 Ht 170.2 cm (5' 7 ) Wt 82.1 kg (181 lb) SpO2 98% BMI 28.35 kg/m?? Alert and oriented x3. Affect is appropriate. Facial musculature is symmetric and tongue protrusionis midline. I do not hear any carotid bruits. The right carotid endarterectomy incision is fully healed. The cardiac rhythm is regular. No murmurs. Lungs are clear. Abdomen is benign. No aneurysm appreciated. Right radial pulse is palpable, the left radial pulses nonpalpable but both hands are wellperfused. The femoral pulses are palpable. Lower extremities were not examined. Neurologically intact. Impression and Plan: I am pleased with her recovery. She will follow up with our vascular nurse practitioner in 1 year with a carotid duplex scan. Nanci Trujillo MD, RPVI, FACS, DFSVS checking clerk and Radiology Co-Director, [facility] [address], [place] [address] [place] [phone] OLOGY TRANSCRIPTIONIST documented in this encounter Plan of Treatment Not on file documented as of this encounter Results * US Carotids Duplex Bilateral (08/17/2023 11:50 AM RADIOLOGY TRANSCRIPTIONIST) Anatomical Region Laterality Modality Vascular Bilateral Ultrasound 08/17/2023 11:0 0 AM RADIOLOGY TRANSCRIPTIONIST Narrative 08/17/2023 9:16 PM RADIOLOGY TRANSCRIPTIONIST [facility] - Department of Vascular Surgery, Vascular Laboratory [address] [place] [id number] Carotid Duplex Ultrasound Report Patient Name: SUMA SAENZ : 1945 (77y 7m) Study Date: 08/17/2023 11:00:52 AM Gender: F Tech: Location: [facility] Ref Provider: NANCI TRUJILLO ?Quality: Adequate Order [...] PSV ?54 ? cm/sec - FINDINGS: Performing Hospitality Specialist: ERYN HayesT. Rt Common Carotid Artery: The plaque in [...] above. Electronically Signed By: Surinder Cardenas MD [facility] 2023-08-17 21:15:34 RADIOLOGY TRANSCRIPTIONIST Procedure Note Surinder Cardenas MD - 08/17/2023 [facility] - Department of Vascular Surgery,Vascular Laboratory [address] [place] [id number] Carotid Duplex Ultrasound Report Patient Name: SUMA SAENZ : 1945 (77y 7m) Study Date: 08/17/2023 11:00:52 AM Gender: F Tech: Location: [facility] Ref Provider: NANCI TRUJILLO Quality: Adequate Order [...] LT VERT PSV 54cm/sec - FINDINGS: Performing Hospitality Specialist: Angie Crain RVT. Rt Common Carotid Artery: [...] above. Electronically Signed By: Surinder Cardenas MD [facility] 2023-08-17 21:15:34 RADIOLOGY TRANSCRIPTIONIST us Nanci Trujillo MD [facility] [place] US PROCEDURES Final R esult documented in this encounter Visit Diagnoses Diagnosis Encounter for surgical aftercare following surgery on the circulatory system- Primary Carotid artery disease (HCC) Unspecified disorders of arteries and arterioles Aftercare following surgery of the circulatory system, NEC Carotid artery disease (HCC) Unspecified disorders of arteries and arterioles Encounter for surgical aftercare following surgery on the circulatory system Aftercare following surgery of the circulatory system, NEC documented in this encounter Orders Outpatient Referral Count Last Ordered Date Fir st Ordered Date AMB REFERRAL TO VASCULAR SURGERY 1 08/19/20 documented in this encounter Care Teams Gasoline Truck Crane Operator Relationship Specialty Start Date End Date Perez Alexander DO [address] [place] [address] PCP - General Family Medicine 07/01/22 Nanci Trujillo MD Surgeon Vascular Surgery 10/12/19 Azar Lara MD Surgeon Cardiothoracic Surgery 10/27/19 documented as of this encounter
--- OUTSIDE RECORDS SUMMARY | 2024-09-08 08:21 | XMS_ITS | Encounter Summary ---
Author Organization [facility] Healthcare Address [address] [place] [address] Care Team Providers Care Director Of Restaurants Name Role Phone Zachary Giron MD Unavailable [phone] Azar Lara MD Unavailable Perez Alexander DO Primary Care Provider Reason for Referral * Cardiology (Routine) - Closed Specialty Diagnoses / Procedures Referred By Contac t Referred To Contact Diagnoses Mixed hyperlipidemia Labile hypertension History of ischemic left MCA stroke Aortic valve insufficiency, etiology of cardiac valve disease unspecified Stenosis of brachiocephalic artery (CMS/HCC) (HCC) Procedures Transthoracic Echo (TTE) Complete W Doppler/CF Jack Antoine MD Phone: tel: fax: [facility] Referral ID Status Reason Start Date Expiration Date Visits Re quested Visits Authorized [id number] Closed 07/27/2023 08/25/2024 1 1 ASSEMBLY TEAM WORKER Reason for Visit * Reason Comments Follow-up Overdue f/u Aortic valve insufficiency Encounter Details Date Type Department Care Team (Latest Contact Info) Description 07/27/2023 9:15 AM SUB ASSEMBLY TEAM WORKER Office Visit [facility] Cardiology [address] [place] [id number] Jack Antoine MD [address] [place] [address] [address] [facility] [place] [id number] Labile hypertension (Primary Dx); Aortic valve insufficiency, etiology of cardiac valve disease unspecified; Mixed hyperlipidemia; Stenosis of brachiocephalic artery (CMS/HCC) (HCC); History of ischemic left MCA stroke; Status post carotid surgery Social History Tobacco Use Types Packs/Day Years [...] on file Legal Sex Female 3:40 AM SUB ASSEMBLY TEAM WORKER Gender Identity Not on file Sexual Orientation Not on file documented as of this encounter Last Filed Vital Signs Vital Sign Reading Time Taken Comments Blood Pressure 126/66 07/27/2023 9:10 AM SUB ASSEMBLY TEAM WORKER Pulse 75 07/27/2023 9:10 AM SUB ASSEMBLY TEAM WORKER Temperature - - Respiratory Rate - - Oxygen Saturation 99% 07/27/2023 9:10 AM SUB ASSEMBLY TEAM WORKER Inhaled Oxygen Concentration - - Weight 83.1 kg (183 lb 1.6 oz) 07/27/2023 9:10 A M SUB ASSEMBLY TEAM WORKER Height 170.2 cm (5' 7 ) 07/27/2023 9:10 AM SUB ASSEMBLY TEAM WORKER Body Mass Index 28.68 07/27/2023 9:10 AM SUB ASSEMBLY TEAM WORKER documented in this encounter Progress Notes * Jack Antoine MD - 07/27/2023 9:15 AM CST [facility] DATE OF VISIT: 07/27/2023 CHIEF COMPLAINT Chief Complaint Patient presents with ??? Follow-up Overdue f/u ??? Aortic valve insufficiency HPI Paige Saenz is a 77 y.o. 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 07/04/1604/01 MRI no CVA. 04/02 Cerebral angiogram 04/03 new multiple small foci c/w tiny infarcts. Seeing Vasc at [place]. Passed out after procdure with Dr. Steven she lost consciousness on 04/01 with facial drooping which resolved within minutes. NO CP or SOB, no recurrent syncope or new limitations back to baseline. BP very high 170-190's at home occ mild dizzy spells grecia when BP low. Plavix added, visual complaints improved. Notably improved myalgias changing from Crestor to Lipitor. Wears Fentanyl patch. 11/03/16 BP running high but sx with near syncope weakness if BP too low but Saw Dr. Steven and BP running 160-180's and they would like BP low around 160's average and observe if symptomatic. Doing about the same otherwise. Atenolol once daily now. NO CP or SOB, falls or syncope. Carotid doppler done last week. Sees Dr Osman in March. 02/18/[address] scan, repeat doppers at [place]. Notes occ vision problems, occ dizziness improved overall, no CP or SOB. No falls or bleeding. STates she is being told probably will need surgery. 03/01/18 Feeling about the same. Still intermittent dizziness grecia when SBP<140mmHg in general. Nofalls, near syncope or syncope. No bleeding. No CP or SOB or palps. with patient states shedoes get dizzy at times but pt states related to muscle relaxer which she quit as she didn't tolerate it. Sometimes gets exceptionally tired. Still seeing Vascular at [place] recommended ongoing observation and evaluation. 09/27/18 Off Fentanyl patch as pain wasn't controlled got a medical MJ card and started using and pain MUCH better and BP stable. Occ dizziness when BP lower or bend over too fast. 04/05/19 States 03/20/19 was feeling funny earlier in the day, had visual disturbances, came in from mowing the lawn, he thought she didn't look like she was feeling well and thought she should check her BP. Right before she checked it she closed her eyes while sitting on the couch with herhead already leaning back. Lasted 15-20 seconds. HE was gently slapping her face to wake her and she was not responding. NO jerking, seizure. Then states she put her arms down like trying to get up then gasped and was more alert and that's the next she recalls is on phone with daughter. EMS noted initial HR 40bpm went to [place], no clear issues, CT head negative. SBP>200mmHg,HR stable. Still taking Atenolol 50mg daily. HAS felt fine since no recurrence, no issues. No CP, SOB, feels fine. Unchanged chronic intermittent dizziness. 06/10/19 Feels ok about the same. No recurrent syncope. Wor monitor no sxs but no pauses or significant arrhythmias. Saw Dr. Giron CT obtained. Continues with intermittent lightheadedness. NO CP ornew SOB. Sxs last <30-45 occur with position change/standing or walking (not sitting) 08/14/21 Underwent 10/21/2019 OR for bypass from ascending aorta to right axillary artery with 6mm PTFE and bypass from ascending aorta to right common carotid and left common carotid artery with 8mm and 7mm Dacron grafts. -HAd intestinal surgery for bowel obstruction, Crohn's. She was having more syncope prior to surgery and now nearly 2 years without syncope. Still seeing Vascular Dr Giron and Neuro for h/o CVA. On ASA 325mg daily. BP has been more stable avg 122/50's no real dizziness. No CP, palps, bleeding. 07/27/23 Feeling ok. Had R CEA 07/2022. No CP, palps, SOB, no falls or syncope. Back pain is her biggest issue. She missed her last appointment. MEDICAL HISTORY Past Medical History: Diagnosis Date ??? Anxiety ??? Back pain ??? Carotid stenosis ??? Degenerative disc disease at L5-S1 level ??? Depression ??? Orthostatic hypotension ??? PONV (postoperative nausea and vomiting) nausea relieved with IV medications ??? Syncope 10/18/2019 Social History Tobacco Use ??? Smoking status: Former Smoker Types: Cigarettes ??? Smokeless tobacco: Never Used Substance Use Topics ??? Alcohol use: Yes ??? Drug use: Never Family History Problem Relation Age of Onset ??? Heart disease Mother Heart disease; /Family history of cardiac disorder - (Added by TW Conv) ??? Stroke Father Stroke; ??? Heart disease Father Family history of cardiac disorder - (Added by TW Conv) ??? Anesthesia problems Neg Hx ??? Malig Hypertension Neg Hx ??? Malig Hyperthermia Neg Hx ??? Pseudochol deficiency Neg Hx MEDICATIONS HOME MEDICATIONS : acetaminophen 500 mg capsule allopurinoL (ZYLOPRIM) 100 mg tablet amLODIPine (NORVASC) 10 mg tablet aspirin 325 mg tablet atorvastatin (LIPITOR) 80 mg tablet biotin 10,000 mcg capsule buPROPion XL (WELLBUTRIN XL) 150 mg 24 hr tablet carvediloL (COREG) 25 mg tablet cetirizine (ZyrTEC) 10 mg tablet d-mannose powder estradioL (ESTRACE) 0.01 % (0.1 mg/gram) vaginal cream hydroCHLOROthiazide (HYDRODIURIL) 25 mg tablet Lactobacillus acidophilus capsule lisinopriL (PRINIVIL,ZESTRIL) 10 mg tablet medical cannabis each mesalamine (PENTASA) 250 mg CR capsule montelukast (SINGULAIR) 10 mg tablet ALLERGIES Allergies Allergen Reactions ??? Naproxen Rash ??? Nsaids (Non-Steroidal Anti-Inflammatory Drug) Hives ??? Penicillins Rash ??? Sulfa (Sulfonamide Antibiotics) Rash REVIEW OF SYSTEMS Review of Systems Constitutional: Positive for weight loss. Negative for decreased appetite, diaphoresis, fever, malaise/fatigue and night sweats. HENT: Negative for hearing loss and nosebleeds. Eyes: Negative for blurred vision and pain. Cardiovascular: Positive for syncope. Negative for chest pain, claudication, dyspnea on exertion, irregular heartbeat, leg swelling, near-syncope, orthopnea and palpitations. Respiratory: Negative for cough, hemoptysis, shortness of breath, snoring and wheezing. Endocrine: Negative for cold intolerance and heat intolerance. Hematologic/Lymphatic: Negative for bleeding problem. Does not bruise/bleed easily. Skin: Negative for color change, itching, rash and suspicious lesions. Musculoskeletal: Positive for joint pain. Negative for falls, muscle weakness and myalgias. Gastrointestinal: Negative for abdominal pain, heartburn, hematemesis, melena and nausea. Genitourinary: Negative for dysuria, hematuria and nocturia. Neurological: Negative for excessive daytime sleepiness, dizziness, focal weakness, headaches, light-headedness, loss of balance and weakness. Psychiatric/Behavioral: Negative for altered mental status, depression and memory loss. The patientis not nervous/anxious. Allergic/Immunologic: Negative for environmental allergies. All other systems reviewed and are negative. PHYSICAL EXAM Vitals BP 126/66 (BP Location: Left arm, Patient Position: Sitting) Pulse 75 Ht 170.2 cm (5' 7 ) Wt 83.1 kg (183 lb 1.6 oz) SpO2 99% BMI 28.68 kg/m?? Weight: 83.1 kg (183 lb 1.6 oz) Height: 170.2 cm (5' 7 ) Body mass index is 28.68 kg/m??. Physical Exam Vitals reviewed. Constitutional: General: She is not in acute distress. Appearance: Normal appearance. She is well-developed. She is not diaphoretic. HENT: Head: Normocephalic and atraumatic. Right Ear: External ear normal. Left Ear: External ear normal. Nose: Nose normal. Mouth/Throat: Mouth: Mucous membranes are moist. Dentition: Normal dentition. Eyes: General: Lids are normal. No scleral icterus. Extraocular Movements: Extraocular movements intact. Conjunctiva/sclera: Conjunctivae normal. Neck: Thyroid: No thyromegaly. Vascular: Normal carotid pulses. No carotid bruit, hepatojugular reflux or JVD. Trachea: No tracheal deviation. Comments: bilat carotid bruits Cardiovascular: Rate and Rhythm: Normal rate and regular rhythm. Pulses: Intact distal pulses. No decreased pulses. Carotid pulses are 1+ on the right side and 1+ on the left side with bruit. Radial pulses are 1+ on the right side and 2+ on the left side. Heart sounds: S1 normal and S2 normal. Heart sounds not distant. Murmur heard. High-pitched midsystolic murmur is present with a grade of 3/6 at the upper right sternal border. Probable transmitted from brachicephalic stenosis No friction rub. No gallop. No S3 or S4 sounds. Comments: Loud RU chest bruit Pulmonary: Effort: Pulmonary effort is normal. No respiratory distress. Breath sounds: Normal breath sounds. No wheezing or rales. Chest: Chest wall: No tenderness. Abdominal: General: Bowel sounds are normal. There is no distension. Palpations: Abdomen is soft. There is no mass. Tenderness: There is no abdominal tenderness. There is no guarding or rebound. Musculoskeletal: General: No tenderness or deformity. Normal range of motion. Cervical back: Normal range of motion and neck supple. Right lower leg: No edema. Left lower leg: No edema. Comments: median sternotomy intact surgical scar Lymphadenopathy: Cervical: No cervical adenopathy. Skin: General: Skin is warm and dry. Coloration: Skin is not pale. Findings: No ecchymosis, erythema, petechiae or rash. Nails: There is no clubbing. Neurological: General: No focal deficit present. Mental Status: She is alert and oriented to person, place, and time. Mental status is at baseline. Cranial Nerves: No cranial nerve deficit. Motor: No abnormal muscle tone. Coordination: Coordination normal. Psychiatric: Mood and Affect: Mood normal. Speech: Speech normal. Behavior: Behavior normal. Behavior is cooperative. Thought Content: Thought content normal. Judgment: Judgment normal. LABS AND OTHER DIAGNOSTIC TESTS No visits with results within 3 Month(s) from this visit. Latest known visit with results is: Admission on 07/17/2022, Discharged on 07/18/2022 Component Date Value Ref Range Status ??? COVID-19 RNA 07/17/2022 Negative Negative Final ??? pH, Art POC 07/17/2022 7.32 (L) 7.35 - 7.45 Final ??? pCO2, Art POC 07/17/2022 42 35 - 45 mmHg Final ??? pO2, Art POC 07/17/2022 153 (H) 83 - 108 mmHg Final ??? Na, POC 07/17/2022 138 135 - 145 mmol/L Final ??? K POC 07/17/2022 4.0 3.3 - 4.9 mmol/L Final ??? Cl, POC 07/17/2022 106 97 - 110 mmol/L Final ??? Ionized Ca, POC 07/17/2022 4.62 4.50 - 5.10 mg/dL Final ??? Glucose, POC 07/17/2022 119 70 - 199 mg/dL Final ??? Lactate, POC 07/17/2022 1.0 0.7 - 2.2 mmol/L Final ??? SO2 (angel) arterial 07/17/2022 99 (H) 90 - 95 % Final ??? Base excess, POC 07/17/2022 -4.3 mmol/L Final ??? HCO3, Art POC 07/17/2022 22 20 - 30 mmol/L Final ??? Hct, POC 07/17/2022 40.0 36.3 - 45.3 % Final ??? O2 Sat, Art POC (Calc) 07/17/2022 99 % Final ??? Total Hb, POC 07/17/2022 13.4 11.9 - 15.5 g/dL Final ??? pH, Art POC 07/17/2022 7.36 7.35 - 7.45 Final ??? pCO2, Art POC 07/17/2022 40 35 - 45 mmHg Final ??? pO2, Art POC 07/17/2022 238 (H) 83 - 108 mmHg Final ??? Na, POC 07/17/2022 139 135 - 145 mmol/L Final ??? K POC 07/17/2022 4.0 3.3 - 4.9 mmol/L Final ??? Cl, POC 07/17/2022 109 97 - 110 mmol/L Final ??? Ionized Ca, POC 07/17/2022 4.93 4.50 - 5.10 mg/dL Final ??? Glucose, POC 07/17/2022 123 70 - 199 mg/dL Final ??? Lactate, POC 07/17/2022 0.9 0.7 - 2.2 mmol/L Final ??? SO2 (angel) arterial 07/17/2022 100 (H) 90 - 95 % Final ??? Base excess, POC 07/17/2022 -2.7 mmol/L Final ??? HCO3, Art POC 07/17/2022 23 20 - 30 mmol/L Final ??? Hct, POC 07/17/2022 38.0 36.3 - 45.3 % Final ??? O2 Sat, Art POC (Calc) 07/17/2022 100 % Final ??? Total Hb, POC 07/17/2022 12.6 11.9 - 15.5 g/dL Final ??? WBC 07/17/2022 6.8 3.8 - 9.9 K/cumm Final ??? Hgb 07/17/2022 11.7 (L) 11.9 - 15.5 g/dL Final ??? Hct 07/17/2022 34.0 (L) 35.6 - 45.5 % Final ??? Plt 07/17/2022 190 150 - 400 K/cumm Final ??? MPV 07/17/2022 9.7 9.1 - 12.3 fL Final ??? RBC 07/17/2022 3.57 (L) 3.90 - 5.20 M/cumm Final ??? MCV 07/17/2022 95.2 81.3 - 96.4 fL Final ??? MCH 07/17/2022 32.8 27.1 - 33.3 pg Final ??? MCHC 07/17/2022 34.4 32.3 - 35.7 g/dL Final ??? RDW CV 07/17/2022 13.3 11.1 - 14.9 % Final ??? RDW SD 07/17/2022 46.5 35.7 - 48.1 fL Final ??? NRBC abs 07/17/2022 0.00 0.00 - 0.01 K/cumm Final ??? Sodium 07/17/2022 137 135 - 145 mmol/L Final ??? Potassium, pl 07/17/2022 3.8 3.3 - 4.9 mmol/L Final ??? Chloride 07/17/2022 104 97 - 110 mmol/L Final ??? CO2 07/17/2022 22 22 - 32 mmol/L Final ??? Anion gap 07/17/2022 11 2 - 15 mmol/L Final ??? BUN 07/17/2022 16 8 - 25 mg/dL Final ??? Creatinine 07/17/2022 0.69 0.60 - 1.10 mg/dL Final ??? Glucose 07/17/2022 155 70 - 199 mg/dL Final ??? Calcium 07/17/2022 8.5 8.5 - 10.3 mg/dL Final ??? Neutrophil abs 07/17/2022 5.6 1.7 - 6.5 K/cumm Final ??? Imm gran abs 07/17/2022 0.0 0.0 - 0.1 K/cumm Final ??? Lymphocyte abs 07/17/2022 0.8 0.8 - 3.3 K/cumm Final ??? Monocyte abs 07/17/2022 0.4 0.2 - 0.8 K/cumm Final ??? Eosinophil abs 07/17/2022 0.0 0.0 - 0.5 K/cumm Final ??? Basophil abs 07/17/2022 0.0 0.0 - 0.1 K/cumm Final ??? Neutrophil pct 07/17/2022 82.3 % Final ??? Imm gran pct 07/17/2022 0.4 % Final ??? Lymphocyte pct 07/17/2022 11.0 % Final ??? Monocyte pct 07/17/2022 6.0 % Final ??? Eosinophil pct 07/17/2022 0.0 % Final ??? Basophil pct 07/17/2022 0.3 % Final ? ? eGFR 07/17/2022 >90 90 - 130 mL/min/1.73 m2 Final ??? Cholesterol 07/17/2022 114 30 - 199 mg/dL Final ? ? Triglycerides 07/17/2022 50 <=149 mg/dL Final ? ? HDL 07/17/2022 61 >=40 mg/dL Final ? ? LDL, calculated 07/17/2022 43 <=129 mg/dL Final ??? Non-HDL Cholesterol 07/17/2022 53 mg/dL Final ??? Chol/HDL ratio 07/17/2022 2 Final ??? ACT 07/17/2022 339 (H) 123 - 168 sec Final ??? ACT 07/17/2022 302 (H) 123 - 168 sec Final ??? ACT 07/17/2022 280 (H) 123 - 168 sec Final ??? ACT 07/17/2022 257 (H) 123 - 168 sec Final ??? ACT 07/17/2022 155 123 - 168 sec Final 05/23/2019 CTA Head/Neck: IMPRESSION: 1. 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 -Previously, differential contrast was present within the vertebral arteries, but not within the carotid arteries. This is likely secondary to severe stenosis of the right innominate artery. There is highly calcified atherosclerosis predominantly at the origin of the right innominate artery that extends along the right subclavian artery and right common carotid artery resulting in high-grade stenosis. However, the degree of stenosis is difficult to assess the given associated streak artifact. 2. Persistent focal occlusion of the left V2/V3 segment at the level of C2 with distal reconstitution of the V4 segment. 3. Approximately 52% (+/- 10%) stenosis of the right proximal ICA, though evaluation is limited by decreased flow and calcified atherosclerosis. 4. Less than 50% left ICA stenosis. 5. Unchanged calcified plaque at the left MCA bifurcation that results in moderate stenosis. 05/27/21 carotid duplex ultrasound: Conclusions: 1. The right internal carotid artery disease is consistent with a 50-69% stenosis. 2. Bidirectional flow is noted in the right vertebral artery. 3. The left internal carotid artery disease is consistent with a less than 50% stenosis. 4. Normal, antegrade flow is noted in the left vertebral artery. 5. Minimal atherosclerotic changes of the bilateral common carotid arteries distally near bifurcation with hemodynamically significant Doppler findings. 6. Patent bilateral external carotid arteries with evidence of atherosclerotic plaque. History: 10/21/2019 s/p bypass from the aorta to the right axillary artery as well as a bifurcated bypass from the ascending aorta to the right common carotid artery and the left common carotid artery. Previous Studies: Previous carotid ultrasound on 04-09-2020 revealed JAIDEN 50-69% stenosis and LICA <50% stenosis. Personally reviewed EKG, Echocardiogram, outside hospital records [place] 03/2019, and bloodwork/lipids. ASSESSMENT Diagnoses and all orders for this visit: Labile hypertension (Primary) - Transthoracic Echo (TTE) Complete W Doppler/CF; Future Aortic valve insufficiency, etiology of cardiac valve disease unspecified - Transthoracic Echo (TTE) Complete W Doppler/CF; Future Mixed hyperlipidemia - Transthoracic Echo (TTE) Complete W Doppler/CF; Future Stenosis of brachiocephalic artery (CMS/HCC) (HCC) - Transthoracic Echo (TTE) Complete W Doppler/CF; Future History of ischemic left MCA stroke - Transthoracic Echo (TTE) Complete W Doppler/CF; Future Status post carotid surgery PLAN/RECOMMENDATIONS 1. BP better controlled and more stable, goal < 140/90 mm Hg. Monitor BP on routine basis. Call with readings. Continue consistent cardiovascular exercise, weight loss, medication compliance, and low-sodium diet. -continue Amlodipine 10 mg daily, Hydrochlorothiazide 25 mg daily, Lisinopril 10 mg daily, Carvedilol 25 mg twice daily -BP right arm sitting 110/60 BP left arm sitting 124/54 mm Hg. 2. Avoid excessive hypotension given vertebrobasilar insufficiency. BP controlled, she is tolerating antihypertensives. -Monitor personally reviewed no recurrent episodes but no concerning tachy or rudolph arrhythmia. 3. Follow-up as scheduled with vascular surgery as scheduled history of R innominate artery stenosis. She is status post right carotid endarterectomy 07/2022. Continue aggressive atherosclerotic riskreduction. Carotid Doppler 08/19/2022 personally reviewed less than 50% stenosis left internal carotid artery no hemodynamically significant stenosis right carotid artery bidirectional flow right vertebral artery may be consistent with ipsilateral subclavian artery stenosis or occlusion. 4. Continue aggressive atherosclerotic risk reduction given carotid arterial stenosis albeit moderate in severity. Continue Aspirin 325 mg daily as previously recommended by vascular surgery. Monitorfor bleeding 5. Caution with ambulation rise slowly from a seated position to avoid risk for falls and injuries.Notify office with any additional questions or concerns. 6. Lifestyle modification counseling performed. Encouraged ongoing weight loss, exercise, reductionin caloric intake. 7. Lipids personally reviewed in office 07/27/23 LDL ?2.4 (perhaps 24, but reported LDL highly implausible), very well controlled goal LDL < 70. Continue atorvastatin 80 mg at bedtime and lifestyle modification. I would recommend repeat formal fasting lipid profile with recommendations to follow. If LDL remains very low may need to reduce atorvastatin. Twelve lead ECG 07/03/2022 sinus rhythm PVCs nonspecific ST abnormality 73 beats per minute. Over 50% of this visit counseling carotid disease, HTN, lipids, medications, lifestyle modification. Follow up in the office in 6 months or sooner as needed. Thank you for allowing me the privilege of participating in the care this very pleasant patient. Please do not hesitate to contact me with any additional questions or concerns. Karlene Antoine MD, [facility] ASSEMBLY TEAM WORKER documented in this encounter Plan of Treatment Not on file documented as of this encounter Procedures Procedure Name Priority Date/Time Associated Diagnosis Comments POCT LIPID PANEL Routine 07/27/2023 10:1 2 AM SUB ASSEMBLY TEAM WORKER Mixed hyperlipidemia documented in this encounter Results * TRANSTHORACIC ECHO (TTE) COMPLETE W DOPPLER/CF WO CONTRAST (09/23/2023 1:40 PM SUB ASSEMBLY TEAM WORKER) Anatomical Region Laterality Modality Ultrasound 09/23/2023 1:06 PM SUB ASSEMBLY TEAM WORKER Narrative 09/23/2023 4:34 PM SUB ASSEMBLY TEAM WORKER [facility] Cardiology [address], [place] [address] [address], [place] [address] P:[phone] P:[phone] Echocardiographic Report Patient Name: PAIGE SAENZ K : 1945 Study Date: 09/23/2023 1:06:29 PM Gender: F Tech: Location: [facility] Provider: JACK ANTOINE ?Height(Cm): 170 BSA: 1.98 Weight(Kg): 83 Heart Rate: 57 BP: 147 / 66 Quality: Good Order Provider: JACK ANTOINE PROCEDURES: Echocardiographic Report: Transthoracic echocardiogram with [...] FINDINGS: Interpretation Site: Exam was interpreted at [facility]. Left Ventricle: Normal left ventricular systolic function. [...] Signed By: Adrien Aly MD 2023-09-23 16:34:13 SUB ASSEMBLY TEAM WORKER Procedure Note Adrien Aly MD - 09/23/2023 [facility] Cardiology [address] [facility] [address], [place] [address] [address] [facility] [address], [place] [address] P:[phone] P:[phone] Echocardiographic Report Patient Name: PAIGE SAENZ K : 1945 Study Date: 09/23/2023 1:06:29 PM Gender: F Tech: Location: [place] Ref Provider: JACK ANTOINE Height(Cm): 170 BSA: 1.98 Weight(Kg): 83 Heart Rate: 57 BP: 147 / 66 Quality: Good Order Provider: JACK ANTOINE PROCEDURES: Echocardiographic Report: Transthoracic echocardiogram with [...] FINDINGS: Interpretation Site: Exam was interpreted at [facility]. Left Ventricle: Normal left ventricular systolic function. [...] Signed By: Adrien Aly MD 2023-09-23 16:34:13 SUB ASSEMBLY TEAM WORKER us Jack Antoine MD CV ECHO PROCEDURES Final Result * POCT lipid panel (07/27/2023 10:12 AM SUB ASSEMBLY TEAM WORKER) Cholesterol, POC 120 mg/dL Comment:GLU = 95 HDL, POC 50 mg/dL Triglycerides, POC 338 mg/dL LDL Cholesterol POC 2.4 mg/dL Chol/HDL Ratio, POC 0.0 Non-HDL Cholesterol, POC 70 mg/dL Cholesterol Total, POC 120 mg/dL Capillary blood 07/27/2023 1 0:12 AM SUB ASSEMBLY TEAM WORKER us Jack Antoine MD POINT OF CARE TEST ORDER EDD Edited Result - Final documented in this encounter Visit Diagnoses Diagnosis Labile hypertension- Primary Aortic valve insufficiency, etiology of cardiac valve disease unspecified Mixed hyperlipidemia 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 History of ischemic left MCA stroke Status post carotid surgery Other postprocedural status Mixed hyperlipidemia Labile hypertension History of ischemic left MCA stroke Aortic valve insufficiency, etiology of cardiac valve disease unspecified 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
--- OUTSIDE RECORDS SUMMARY | 2024-09-08 08:21 | XMS_ITS | Encounter Summary ---
Author Organization [facility] Address [address] [facility] [address] [place] [address] Phone Care Team Providers Care Laundry Presser Name Role Phone Nanci Trujillo MD Unavailable Azar Lara MD Unavailable Perez Alexander DO Primary Care Provider Reason for Visit * Diagnostic Imaging (Routine) - Closed Specialty Diagnoses / Procedures Referred By Contac t Referred To Contact Diagnoses Encounter for surgical aftercare following surgery on the circulatory system Procedures US Carotids Duplex Bilateral Nanci Trujillo MD [address] [facility] [id number] [place] [address] Phone: tel: fax: [facility] (All Locations) Referral ID Status Reason Start Date Expiration Date Visits Re quested Visits Authorized [id number] Closed 07/17/2022 08/16/2023 99 99 Encounter Details Date Type Department Care Team (Latest Contact Info) Description 08/19/2022 9:30 AM BRAIDING MACHINE OPERATOR Ancillary Procedure [facility] at [facility] [address] [place] [address] Advanced Medicine 8th [place] [address] [place] [id number] Encounter for surgical aftercare following surgery on [...] on file Legal Sex Female 3:40 AM BRAIDING MACHINE OPERATOR Gender Identity Not on file Sexual Orientation Not on file documented as of this encounter Plan of Treatment Not on file documented as of this encounter Procedures Procedure Name Priority Date/Time Associated Diagnosis Comments US CAROTIDS DUPLEX BILATERAL Schedule Routine, Read Routine (OP Routine) 08/19/2022 10:54 AM BRAIDING MACHINE OPERATOR Encounter for surgical aftercare following surgery on the circulatory system documented in this encounter Results * US Carotids Duplex Bilateral (08/19/2022 10:54 AM BRAIDING MACHINE OPERATOR) Anatomical Region Laterality Modality Vascular Bilateral Ultrasound 08/19/2022 9:15 AM BRAIDING MACHINE OPERATOR Narrative 08/19/2022 3:46 PM BRAIDING MACHINE OPERATOR [facility] - Department of Vascular Surgery, Vascular Laboratory [address] [place] [address] Carotid Duplex Ultrasound Report Patient Name: SUMA SAENZ : 1945 (76y 7m) Study Date: 08/19/2022 9:15:17 AM Gender: F Tech: Location: [facility] Ref.Provider: NANCI TRUJILLO Quality: Adequate Order Provider: [...] ? Left Carotid ? - Findings: Performing Large Animal Veterinarian: Grisel Atkinson RVT. Rt Common Carotid Artery: [...] performed. Electronically Signed By: Charanjit Cruz MD [facility] [phone] 2022-08-19 15:46:42 BRAIDING MACHINE OPERATOR CC: CC: Procedure Note Charanjit Cruz MD - 08/19/2022 [facility] - Department of Vascular Surgery,Vascular Laboratory [address] [place] [address] Carotid Duplex Ultrasound Report Patient Name: SUMA SAENZPatient ID: [id number] : 1945 (76y 7m)Study Date: 08/19/2022 9:15:17 AM Gender: FAccession #: [id number] Tech: DRLocation: [facility] Ref.Provider: RNONIE, PATRICKQuality: Adequate Order Provider: NANCI TRUJILLOAccount #: [id number] Procedures: Carotid Report: Carotid duplex examination of [...] Right Carotid Left Carotid - Findings: Performing Large Animal Veterinarian: ERYN RicciT. Rt Common Carotid Artery: The plaque in [...] performed. Electronically Signed By: Charanjit Cruz MD [facility] [phone] 2022-08-19 15:46:42 BRAIDING MACHINE OPERATOR CC: CC: us Nanci Trujillo MD IM US PROCEDURES Final R esult documented in this encounter Visit Diagnoses Diagnosis Encounter for surgical aftercare following surgery on the circulatory system documented in this encounter Care Teams Laundry Presser Relationship Specialty Start Date End Date Perez Alexander DO [address] [place] [address] PCP - General Family Medicine 07/01/22 Nanci Trujillo MD Surgeon Vascular Surgery 10/12/19 Azar Lara MD Surgeon Cardiothoracic Surgery 10/27/19 documented as of this encounter
--- OUTSIDE RECORDS SUMMARY | 2024-09-08 08:21 | XMS_ITS | Encounter Summary ---
Author Organization [facility] Address [address] [place] [address] Phone Care Team Providers Care Manager Social Name Role Phone Zachary Giron MD Unavailable [phone] Azar Lara MD Unavailable Perez Alexander DO Primary Care Provider Reason for Referral * Diagnostic Imaging (Routine) - Pending Review Specialty Diagnoses / Procedures Referred By Khadijah t Referred To Contact Diagnoses Encounter for surgical aftercare following surgery on the circulatory system Procedures US Carotids Duplex Bilateral Nafisa Norris NP [address] [facility] [address] [place] [address] Phone: tel: fax: [facility] (All Locations) Referral ID Status Reason Start Date Expiration Date V isits Requested Visits Authorized [id number] Pending Review 08/15/2024 09/14/2025 1 1 * Diagnostic Imaging (Routine) - Pending Review Specialty Diagnoses / Procedures Referred By Khadijah ricks Referred To Contact Diagnoses Encounter for surgical aftercare following surgery on the circulatory system Procedures US Arterial Doppler Upper Extremity Bilateral Nafisa Norris NP [address] [facility] [address] [place] [address] Phone: tel: fax: [facility] (All Locations) Referral ID Status Reason Start Date Expiration Date V isits Requested Visits Authorized [id number] Pending Review 08/15/2024 09/14/2025 1 1 * Diagnostic Imaging (Routine) - Closed Specialty Diagnoses / Procedures Referred By Contac t Referred To Contact Diagnoses Encounter for surgical aftercare following surgery on the circulatory system Procedures US Arterial Doppler Upper Extremity Bilateral Nafisa Norris NP [address] [facility] [address] [place] [address] Phone: tel: fax: [facility] (All Locations) Referral ID Status Reason Start Date Expiration Date Visits Re quested Visits Authorized [id number] Closed 08/10/2024 09/09/2025 1 1 Encounter Details Date Type Department Care Team (Late st Contact Info) Description 08/15/2024 11:30 AM BSW Office Visit [facility] Surgery [address] [facility] Advanced Medicine 8th [place] [address] [place] [id number] Nafisa Norris NP [address] [facility] [address] [place] [address] Encounter for surgical aftercare following surgery on [...] on file Legal Sex Female 3:40 AM BSW Gender Identity Not on file Sexual Orientation Not on file documented as of this encounter Last Filed Vital Signs Vital Sign Reading Time Taken Comments Blood Pressure 128/70 08/15/2024 11:36 AM BSW Pulse 64 08/15/2024 11:36 AM BSW Temperature - - Respiratory Rate - - Oxygen Saturation 97% 08/15/2024 11:36 AM BSW Inhaled Oxygen Concentration - - Weight 79.4 kg (175 lb) 08/15/2024 11:36 AM BSW Height 168.9 cm (5' 6.5 ) 08/15/2024 11:36 AM CS T Body Mass Index 27.82 08/15/2024 11:36 AM BSW documented in this encounter Progress Notes * Nafisa Norris, DEPARTMENT EDITOR - 08/15/2024 11:30 AM CST Suma Saenz is a 78 y.o. female patient of Dr. Giron who presents today for follow up of her carotid artery stenosis. She has a history of a previous right carotid endarterectomy in 2021 and ascending to right axillary and ascending to bilateral common carotid artery bypasses in 2019. Sincelast seen she states she is doing well [...] by oral route every day 0 0 buPROPion XL (WELLBUTRIN XL) 150 mg 24 hr tablet take 1 tablet by oral route 2 times every day 0 0 calcium carbonate-vitamin D3 1,500 mg (600mg elemental) -800 unit per tablet Take 1 tablet by mouthdaily carvediloL (COREG) 25 mg tablet Take 1 [...] by mouth 2 (two) times a day fentaNYL (DURAGESIC) 12 mcg/hr Linzess 72 mcg capsule lisinopriL (PRINIVIL,ZESTRIL) 10 [...] 0 nitrofurantoin monohydrate (MACROBID) 100 mg capsule oxyCODONE (ROXICODONE) 5 mg immediate release tablet estradioL (ESTRACE) 0.01 % (0.1 mg/gram) vaginal cream Insert 1 g into the vagina 2 (two) times a week Thursday and thursday (Patient not taking: Reported on 08/15/2024) hydroCHLOROthiazide (HYDRODIURIL) 25 mg tablet Take 1 tablet (25 mg total) by mouth every morning (Patient not taking: Reported on 08/15/2024) No current facility-administered medications for this visit. Allergies Allergen Reactions Naproxen Rash Nsaids (Non-Steroidal Anti-Inflammatory Drug) Hives Penicillins Rash Sulfa (Sulfonamide Antibiotics) Rash Social History Tobacco Use Smoking status: Former Current packs/day: 0.00 Types: Cigarettes Quit date: 2004 Years since quittin.9 Smokeless tobacco: Current Tobacco comments: Occasional nicorete use Substance and Sexual Activity Alcohol use: Yes Drug use: Yes Frequency: 7.0 times per week Types: Marijuana Comment: edibles- nightly Sexual activity: Defer On physical exam, this a pleasant female in no apparent distress. Vital signs today are BP 128/70 (BP Location: Left arm, Patient Position: Sitting) Pulse 64 Ht 168.9 cm (5' 6.5 ) Wt 79.4 kg (175 lb) SpO2 97% BMI 27.82 kg/m?? Her neck is supple with bilateral carotid bruits. her heart rate is regular, she has equal upper extremity pulses. REVIEW of TESTING: US Carotid Duplex Bilateral [facility] - Department of Vascular Surgery, Vascular Laboratory [address] [place] [address] Carotid Duplex Ultrasound Report --Preliminary-- Patient Name: SUMA SAENZ : 1945 (78y 7m) Study Date: 08/15/2024 10:48:44 AM Gender: F Tech: Location: [facility] Ref Provider: NAFISA NORRIS Quality: Adequate Order Provider: NAFISA NORRIS PROCEDURES: Carotid Report: Carotid duplex examination of the extracranial arteries was performed using 2D, color and spectral Doppler. INDICATIONS: Z48.812 Encounter for surgical aftercare following surgery on the circulatory system. MEASUREMENTS: Right Value Left Value RT [...] VERT PSV 53 cm/sec - FINDINGS: Performing Director Of Sales Marketing: Diann Olea RVT, RDMS. Rt Common Carotid [...] in the common carotid artery bilaterally. HISTORY: Carotid artery disease, HTN, HLD, brachiocephalic artery stenosis, hx tobacco dependence 07-17-2022 right carotid endarterectomy 10-21-2019 aorta to right axillary artery bypass, ascending aorta to right common carotid artery and left common carotid artery bifurcated bypass. PREVIOUS STUDIES: Previous carotid ultrasound on 08-17-2023. Normal right ICA, <50% left ICA, bidirectional right vert, normal left vert. DISCLAIMER: The study images and the final report will be retained in the patient chart by the Vascular Laboratory for the legally required time period. This chart constitutes the legal record of any testing performed. ATTESTATION: Electronically Signed By: 08/15/2024 11:31:31 AM BSW This result has not been signed. Information might be incomplete. US Arterial Doppler Upper Extremity Bilateral [facility] - Department of Vascular Surgery, Vascular Laboratory [address] [place] [address] Upper Extremity Arterial Doppler Ultrasound Report --Preliminary-- Patient Name: SUMA SAENZ : 1945 Study Date: 08/15/2024 11:07:00 AM Gender: F Tech: Diann Olea Maritza, [facility] Location: [facility] Ref Provider: NAFISA NORRIS Quality: Adequate Order Provider: NAFISA NORRIS PROCEDURES: Vascular Report: Bilateral upper extremity arterial Doppler exam with digit plethysmography and pressure. INDICATIONS: Z48.812 Encounter for surgical aftercare following surgery on the circulatory system. MEASUREMENTS: Right Value Left Value Rt [...] Right Value Left Value - FINDINGS: Performing Director Of Sales Marketing: Diann Olea RVT, RDMS. Right Axillary Artery: [...] waveform. Normal left digit pressure and waveform. CONCLUSIONS: 1. Right Forearm/Arm Index is consistent [...] significant left upper extremity arterial occlusive disease. HISTORY: Carotid artery disease, [...] any testing performed. ATTESTATION: Electronically Signed By: 08/15/2024 11:31:54 AM BSW This result has not been signed. Information might be incomplete. PLAN: She is doing well should return to our office in one year with repeat carotid doppler or sooner should they develop any symptoms. Nafisa Norris NP Section of Vascular Surgery [facility] CC Perez Alexander DO Patrick Geraghty, MD Cosigned by Zachary Giron MD at 08/16/2024 12:24 PM BSW documented in this encounter Plan of Treatment Scheduled Orders Name Type Priority Associated Diagnoses Orde r Schedule US Arterial Doppler Upper Extremity Bilateral Imaging Schedule Routine, Read Routine (OP Routine) Encounter for surgical aftercare following surgery on the circulatory system Expected: 08/15/2025, Expires: 02/13/2026 US Carotids Duplex Bilateral Imaging Schedule Routine, Read Routine (OP Routine) Encounter for surgical aftercare following surgery on the circulatory system Expected: 08/15/2025, Expires: 02/13/2026 documented as of this encounter Results * US Arterial Doppler Upper Extremity Bilateral (08/15/2024 11:35 AM BSW) Anatomical Region Laterality Modality Vascular Bilateral Ultrasound 08/15/2024 11:0 7 AM BSW Narrative 08/17/2024 12:38 AM BSW [facility] - Department of Vascular Surgery, Vascular Laboratory [address] [place] [address] Upper Extremity Arterial Doppler Ultrasound Report Patient Name: SUMA SAENZ : 1945 Study Date: 08/15/2024 11:07:00 AM Gender: F Tech: Diann Olea T, [facility] Location: [facility] Provider: NAFISA NORRIS Quality: Adequate Order [...] Left ? Value - ?? FINDINGS: Performing Director Of Sales Marketing: Diann Olea RVT, SELENE. Right Axillary Artery: The axillary artery is [...] Zachary Giron MD FACS 08/17/2024 12:37:56 AM BSW Procedure Note Zachary Giron MD - 08/17/2024 [facility] - Department of Vascular Surgery,Vascular Laboratory [address] [place] [address] Upper Extremity Arterial Doppler Ultrasound Report Patient Name: SUMA SAENZ : 1945 Study Date: 08/15/2024 11:07:00 AM Gender: F Tech: Diann Olea RVT, RDMS Location: [facility] Provider: NAFISA NORRIS Quality: Adequate Order [...] Right Value Left Value - FINDINGS: Performing Director Of Sales Marketing: Diann Olea RVT, RDMS. Right Axillary Artery: [...] above. Electronically Signed By: Zachary Giron MD [facility] 08/17/2024 12:37:56 AM BSW Nafisa Norris DEPARTMENT EDITOR [facility] PROCEDURES Final Result documented in this encounter Visit Diagnoses Diagnosis Encounter for surgical aftercare following surgery on the circulatory system Encounter for surgical aftercare following surgery on the circulatory system- Primary documented in this encounter Historical Medications * This list may reflect changes made after this encounter. Medication Sig Dispense Quantity Refills Last Filled Start D ate End Date fentaNYL (DURAGESIC) 12 mcg/hr 07/21/2024 oxyCODONE (ROXICODONE) 5 mg immediate release tablet 06/17/2024 added in this encounter Care Teams Manager Social Relationship Specialty Start Date End Date Perez Alexander DO [address] [place] [address] PCP - General Family Medicine 07/01/22 Zachary Giron MD Surgeon Vascular Surgery 10/12/19 Azar Lara MD Surgeon Cardiothoracic Surgery 10/27/19 documented as of this encounter
--- OUTSIDE RECORDS SUMMARY | 2024-09-08 08:21 | XMS_ITS | Encounter Summary ---
Author Organization [facility] Healthcare Address [address] [place] [address] Care Team Providers Care Shade Maker Name Role Phone Zachary Giron MD Unavailable Azar Lara MD Unavailable Perez Heller DO Primary Care Provider Reason for Visit * Auth/Cert Specialty Diagnoses / Procedures Referred By Contac t Referred To Contact Diagnoses Occlusion and stenosis of right carotid artery Occlusion and stenosis of right carotid artery [I65.21] Procedures IN THROMBOENDARTECTMY NECK,NECK INCIS ENDARTERECTOMY - CAROTID WITH PATCH GRAFT Referral ID Status Reason Start Date Expiration Date Visits Re quested Visits Authorized [id number] 1 1 Encounter Details Date Type Department Care Team (Latest Contact Info) Description 07/17/2022 5:23 AM ROUGHENER - 07/18/2022 1:01 PM ROUGHENER Hospital Encounter [facility] [address] [place] [address] Zachary Giron MD [id number] [place] [address] Discharge Disposition: Discharge to home or self care Social History Tobacco Use Types Packs/Day Years [...] on file Legal Sex Female 3:40 AM ROUGHENER Gender Identity Not on file Sexual Orientation Not on file documented as of this encounter Last Filed Vital Signs Vital Sign Reading Time Taken Comments Blood Pressure 130/51 07/18/2022 12:06 PM ROUGHENER Pulse 57 07/18/2022 8:00 AM ROUGHENER Temperature 36.5 ??C (97.7 ??F) 07/18/2022 8:00 AM CS T Respiratory Rate 18 07/18/2022 8:00 AM ROUGHENER Oxygen Saturation 94% 07/18/2022 8:00 AM ROUGHENER Inhaled Oxygen Concentration - - Weight 83.4 kg (183 lb 13.8 oz) 07/17/2022 3:30 PM ROUGHENER Height 170.2 cm (5' 7.01 ) 07/17/2022 3:30 PM CS T Body Mass Index 28.79 07/17/2022 3:30 PM ROUGHENER documented in this encounter Discharge Summaries * Doreen Rascon, NAKIA - 07/18/2022 9:45 AM CST Inpatient Discharge Summary BRIEF OVERVIEW Admitting Provider: Zachary Giron MD Discharge Provider: Zachary Giron MD Primary Care Physician at Discharge: Perez Heller DO [phone] Admission Date: 07/17/2022 Discharge Date: 07/18/2022 Admission Location: [facility] Problems/Diagnoses: Principal Problem: Occlusion and stenosis of right carotid artery Active Problems: Hypertension Resolved Problems: Right carotid artery occlusion DETAILS OF HOSPITAL STAY Presenting Problem/History of Present Illness: 76 YO female with hx of anxiety, bilateral carotid stenosis, depression, DDD who presented for R CEA 2/2 severe carotid stenosis. She followed with Dr. Giron for her right internal carotid artery stenosis which remains asymptomatic. On today's carotid duplex scan, that stenosis now exceeds 70% by our usual parameters. She is receiving a statin agent and daily aspirin therapy. Prior CTA suggested that the lesion was surgically accessible, focal, and heavily calcified. She had a cardiac catheterization recently which showed no significant coronary disease.She tolerated the procedure well. Able to dc on 07/18. Hospital Course: Occlusion and stenosis of right carotid artery OR 07/17 for R CEA -dc OU, Q4 NV checks - SBP goal above 120 - Continue aspirin + statin daily - SARAI removed morning of discharge - OOB this morning, walking without assistance in the morning - Alva discontinued overnight, passed void trial Hypertension Home regimen: lisinopril 10mg, coreg 25mg BID, amlodipine 10mg, HCTZ 25mg every day -restarted all meds except HCTZ, can restart at dc Active Issues Requiring Follow-up: Follow up with Dr. Giron in 4 weeks Follow up with PCP in 10-14 days Test Results Pending at Discharge: Operative Procedures Performed: Procedure(s): ENDARTERECTOMY - CAROTID WITH PATCH GRAFT Other Procedures: Pertinent Test Results: Discharge Details Physical Exam at Discharge: Discharge Condition: stable Pulse: 57 Resp: 18 BP: 92/52 Temp: 36.5 ??C (97.7 ??F) Weight: 83.4 kg (183 lb 13.8 oz) Pertinent Exam Findings at Discharge: GENERAL: Awake, alert, oriented x 4; no acute distress. HEENT: Eyes: Pupils equal, round, reactive to light and accommodation. NECK: Supple and symmetric. Rt Neck drain with minimal output RESPIRATORY: Good respiratory effort. Chest: Symmetrical rise and fall. Symmetrical expansion with respirations. CARDIOVASCULAR: Regular rate and rhythm. GASTROINTESTINAL: No tenderness or mass. Abdomen is nondistended. MUSCULOSKELETAL: No tenderness or effusion. Range of motion adequate. Strength and tone equal bilaterally, stable. INCISIONS: Bilateral palpable radial and ulnar pulses NEUROLOGICAL: Cranial nerves II-XII grossly intact. Sensation intact. Discharge Disposition: Discharge to home or self care Code Status at Discharge: FULL Discharge Instructions: Activity Instructions Discharge Activity: Driving restrictions -Do not drive for 1 week Discharge Activity: Lifting restrictions -Do NOT lift greater than 5 pounds for 2 week(s). Discharge Activity: Walking -You may walk as tolerated and climb stairs. Other Instructions Skin Glue Special glue has been placed on your incision. It will flake off over 1 week. Do not pick, scratch or rub. This may cause it to come off before your incision has healed. Special Instructions Activity -Do not lift anything heavier than 5 pounds (a gallon of milk); no bending, straining, or strenuousactivity for the first 2 weeks. -No driving for 7 days or while taking prescription pain medications. You may ride in a car. It is important that you have the ability to turn your head quickly without discomfort while operating a vehicle. This may not be possible for some people for 1-2 weeks after surgery. -Walk as often as you wish. Walk short distances at first and increase slowly. Avoid exercising in extreme temperatures. -You may have some slight dizziness, a mild headache or tiredness for a few days. -You may go up and down stairs. Hold onto the rail for the first few days after surgery because youmay experience dizziness. -If you smoke, please quit. Smoking increases you chances of developing heart disease, carotid artery disease, lung cancer, and peripheral vascular disease. It can also delay wound healing. Personal Hygiene/Shower -You may shower the next day after your surgery. -Use soap and water to gently clean the incision. Do not scrub the incision. Pat dry with a clean towel. -Do not soak in a tub, whirlpool, or hot tub, or go swimming until the incision is completely healed. This is generally 3-4 weeks for most people. Diet -Resume the diet you were on before your surgery unless otherwise directed. -For most people a low saturated fat and cholesterol diet which is high in fruits, vegetables and whole grains is a good healthy diet Incision -There will be an area of numbness along the incision in the neck and toward the chin. The earlobe may also be affected. This generally goes away and may last for 6-12 months. -Your neck incision is about is about 3-4 inches in length. The sutures under the skin will dissolve on their own. Take a close look at the incision in the mirror so that you will know what it looks like before leaving the hospital and will notice changes if they occur at home. -For the first couple of days sleep on a couple of pillows to help with the swelling in the neck around the incision. -You may apply an ice pack for the first 48 hours after surgery to the neck incision. It should be applied for 15 minutes, then off for 15 minutes. This may help with swelling and discomfort. -Your incision will take several months to heal completely. It may feel raised and thickened for a while and will decrease over time. It takes 2-3 weeks for the swelling to go away. --No ointments, lotions, creams or bandages should be applied to the incision. Medications Aspirin 325mg daily Atorvastatin 80mg -It is VERY important that you take these medications as directed. -Your updated medication list will be given to you before you leave the hospital. New prescriptionswill be provided to you and education regarding new medications provided. Please take the time to read this information. It is important for you to have a good understanding of what medications you are taking. Call Your Surgeon for Any of These Symptoms - Increasing pain or swelling in the neck causing difficulty breathing or swallowing. - Sudden or severe headache. A headache that will not go away. - Changes in your eyesight, problem speaking, or problem swallowing. - Weakness on one side of your body. -Increasing pain, not relieved by pain medication. - Fever above 101 degrees. -Redness, an increase in swelling or bruising around your incision. There may be some slight drainage the first couple of days from the incision, but this should stop and the incision should be dry. If there is continued drainage or pus the surgeon should be called. If you cannot reach your doctor, go to the nearest emergency room for immediate assessment. Discharge Medications: Current Medications TAKE these medications acetaminophen 500 mg capsule Take 2 capsules (1,000 mg total) by mouth every 6 (six) hours as needed for pain allopurinoL 100 mg tablet Take 100 mg by mouth nightly For: treatment to prevent acute gout attack Commonly known as: ZYLOPRIM amLODIPine 10 mg tablet Take 1 tablet (10 mg total) by mouth daily Commonly known as: NORVASC aspirin 325 mg tablet take 1 tablet by oral route every day atorvastatin 80 mg tablet take 1 tablet by oral route every day Commonly known as: LIPITOR biotin 10,000 mcg capsule Take 10,000 mcg by mouth 2 (two) times a day For: 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 buPROPion XL 150 mg 24 hr tablet take 1 tablet by oral route 2 times every day Commonly known as: WELLBUTRIN XL carvediloL 25 mg tablet Take 1 tablet (25 mg total) by mouth 2 (two) times a day Commonly known as: COREG d-mannose powder Take 1 tablet by mouth 2 (two) times a day estradioL 0.01 % (0.1 mg/gram) vaginal cream Insert 1 g into the vagina 2 (two) times a week Thursday and thursday Commonly known as: ESTRACE hydroCHLOROthiazide 25 mg tablet Take 25 mg by mouth every morning For: high blood pressure Commonly known as: HYDRODIURIL Lactobacillus acidophilus capsule Take 1 tablet by mouth 2 (two) times a day lisinopriL 10 mg tablet Take 1 tablet (10 mg total) by mouth daily Commonly known as: PRINIVIL,ZESTRIL medical cannabis each Take 1 Dose by mouth nightly mesalamine 250 mg CR capsule Take 400 mg by mouth 2 (two) times a day For: ulcerative colitis, an inflammatory condition of the intestines Commonly known as: PENTASA montelukast 10 mg tablet take 1 tablet by oral route every day in the evening Commonly known as: SINGULAIR ZyrTEC 10 mg tablet take 1 tablet by oral route every day Generic drug: cetirizine Outpatient Follow-Up: Contact Information for Follow-ups Perez Heller DO Specialty: Family Medicine Relationship: PCP - General [facility] [id number] Next Steps: Follow up Zachary Giron MD Specialty: Vascular Surgery, General Surgery [id number] [facility] [address] Next Steps: Follow up Instructions: please follow up in 4 weeks Questions: Instructions for follow-up (appointment date and time): please follow up in 4 weeks To provider: ZACHARY GIRON Josh, DO Specialty: Family Medicine Relationship: PCP - General [facility] [address] Next Steps: Follow up Instructions: follow up in 10-14 days Questions: To provider: PEREZ HELLER Instructions for follow-up (appointment date and time): follow up in 10-14 days Cosigned by Zachary Giron MD at 07/18/2022 12:48 PM ROUGHENER HENER HENER documented in this encounter Discharge Instructions * Discharge Instructions* Doreen Rascon NP - 07/18/2022 9:55 AM ROUGHENER Please hold your blood pressure medications if your SBP is less than 110 and call your PCP. HENER * Appointments* Nilda Sanchez RN - 07/18/2022 9:42 AM ROUGHENER This is the earliest appointment with your PCP, Please bring discharge paperwork with list of medicines, insurance card and photo ID to appointment. Please arrive at least 15 minutes early prior to appointment. If you are unable to keep this appointment, it is very important you call to reschedule. HENER documented in this encounter Medications at Time of Discharge acetaminophen 500 mg capsule Take 2 capsules (1,000 mg total) by mouth every 6 (six) hours as needed for pain 30 tablet 11/04/2019 allopurinoL (ZYLOPRIM) 100 mg tabletIndications :prevention of acute gout attack Take 1 tablet (100 mg total) by mouth nightly 04/23/2021 amLODIPine (NORVASC) 10 mg tablet Take 1 tablet (10 mg total) by mouth daily 30 tablet 11/04/2019 aspirin 325 mg tablet take 1 tablet by oral route every day 0 0 07/04/2016 atorvastatin (LIPITOR) 80 mg tablet take 1 tablet by oral route every day 0 0 07/04/2016 buPROPion XL (WELLBUTRIN XL) 150 mg 24 hr tablet take 1 tablet by oral route 2 times every day 0 0 02/26/2015 carvediloL (COREG) 25 mg tablet Take 1 tablet (25 mg total) by mouth 2 (two) times a day 60 tablet 11/04/2019 cetirizine (ZyrTEC) 10 mg tablet take 1 tablet by oral route every day 0 0 02/26/2015 d-mannose powder Take 1 tablet by mouth 2 (two) times a day estradioL (ESTRACE) 0.01 % (0.1 mg/gram) vaginal cream Insert 1 g into the vagina 2 (two) times a week Thursday and thursday05/26/2022 hydroCHLOROthiazi de (HYDRODIURIL) 25 mg tabletIndications :hypertension Take 1 tablet (25 mg total) by mouth every morning lisinopriL (PRINIVIL,ZESTRIL ) 10 mg tablet Take 1 tablet (10 mg total) by mouth daily 30 tablet 11 11/04/2019 medical cannabis each Take 1 Dose by mouth nightly montelukast (SINGULAIR) 10 mg tablet take 1 tablet by oral route every day in the evening 0 0 11/03/2016 biotin 10,000 mcg capsuleIndication s:Biotin Deficiency Take 1 capsule (10,000 mcg total) by mouth 2 (two) times a day 4 Lactobacillus acidophilus capsule Take 1 tablet by mouth 2 (two) times a day 3 mesalamine (PENTASA) 250 mg CR capsuleIndication s:Ulcerative Colitis Take 400 mg by mouth 2 (two) times a day 3 documented as of this encounter Discharge Disposition Disposition Code Departure Means Destination Discharge to home or self care documented in this encounter Progress Notes * Nilda Sanchez RN - 07/18/2022 10:05 AM CST CM Initial Assessment Interview Note Information Obtained From: Patient (07/18/221002) Admission Source: home Impression: Patient admitted s/p RCEA Plan Includes: No home needs identified Primary Source of Transportation: Does the patient need discharge transport arranged?: No Has discharge transport been arranged?: No (07/18/221002) Health Insurance Coverage: [facility] medicare Prescription Coverage: yes [facility]acy: [facility] Primary Care Provider: Perez Heller DO Prior to Admission: Primary Caregiver: Self Who does the patient or legal guardian want to receive education instruction and discharge plans for after care assistance?: Decline Support System: Spouse/Significant Other Support system contact info (name, phone, availablity): Juice [phone] Home Care Services: No Durable Medical Equipment: Walker (wheeled), Cane (single prong) Living Arrangements: Spouse/significant other Type of Residence: Private residence Steps in home? : Yes, Outside of home, Yes, Inside home Number of steps inside:: 12 steps Number of steps outside:: 1 steps (07/17/22 1703) Potential discharge needs include: none Dialysis: n/a Behavioral Health Services: Behavioral Health Services: No (07/18/22 1003) Patient expects to be Discharged to: Private residence, (07/18/22 100) Additional Information: Patient independent of adl prior to admission. Patient spouse to assist andtransport patient home Patient's Identified Problem/Goal Problem: Ensure acute medical needs are met and that patient has a safe discharge plan. Goal: Secure a discharge plan that patient/family are agreeable with and ensure patient has continuum of care. Case management will follow for discharge planning and send referrals as needed. Goals include: To assure continuity of care, To maximize coping skills, To assure patient is in a safe environment and To assure access to community resources. Plan includes: 1. Collaboration with patient, MD, direct care nurse, Spouting Installer, and other members of the health care team to assure needed interventions completed. 2. Return patient to optimal level of self-care post discharge. 3. Veneer Stock Grader will follow for Discharge Planning - interventions as needed 4. Anticipated level of care at discharge 5. Planned Discharge Disposition Based on a comprehensive family assessment, assistance with instrumental activities of daily livingafter discharge will be provided by spouse Through the course of our work I determined that the spouse possesses the skill and ability to provide and monitor the care of the patient when he or she returns home. Spouse has the capacity to provide/monitor/arrange for the care of the patient. Finally, we determined that spouse has the knowledge of available resources and that combining them with their existing resources will suffice to sustain and care for the patient when he or she returns home. The treatment team is aware of this information. All are in agreement with the aftercare plan. Nilda Sanchez RN HENER * Nilda Sanchez RN - 07/18/2022 9:42 AM CST 07/18/22 0942 Discharge Summary Chart reviewed For Medical Necessity Does patient have a planned readmission to hospital planned? No Discharge Disposition Home Equipment/Provider Needs No Home Needs Identified Discharge Additional Assistance Does the patient need discharge transport arranged? No Has discharge transport been arranged? No Post Discharge Care Provider Post Discharge Care Plan DC Summary has been faxed to next level of care provider (see Follow Up Providers) Patient to d/c to home today. No home needs identified. Patient has family for home support and transportation. Patient to have meds filled by mobile pharmacy. PCP appointment made. Nurse to instructon d/c orders. HENER * Doreen Rascon NP - 07/18/2022 7:50 AM CST Vascular Surgery Daily Progress Patient Name/MRN: Suma Saenz [id number] Treatment Team: Vascular Surgery- Pager: [phone] Attending: Zachary Giron MD Today's Date: 07/18/2022 Room/Bed: [id number] Admit Date: 07/17/2022 Code Status: Full Code Subjective Chief complaint: R carotid stenosis Events During This Hospitalization: OR 07/17 for R CEA Events Over Last 24 Hours: NAEO. Patient not endorsing any complaints today -already passed void trial -dc OU, freeman -Q4 NV checks -OOB -if doing well can dc later this morning Allergies Allergen Reactions Naproxen Rash Nsaids (Non-Steroidal Anti-Inflammatory Drug) Hives Penicillins Rash Sulfa (Sulfonamide Antibiotics) Rash Current Facility-Administered Medications Medication Dose Route Frequency Provider Last Rate Last Admin acetaminophen (TYLENOL) tablet 1,000 mg 1,000 mg oral Q6H PRN Kenisha Hughes MD 1,000 mg at 07/18/22 0302 allopurinoL (ZYLOPRIM) tablet 100 mg 100 mg oral Nightly Kenisha Hughes MD 100 mg at 07/17/222057 amLODIPine (NORVASC) tablet 10 mg 10 mg oral Daily Kenisha Hughes MD aspirin tablet 325 mg 325 mg oral Daily DadKenisha collado MD 325 mg at 07/17/22 1635 atorvastatin (LIPITOR) tablet 80 mg 80 mg oral Daily Kenisha Hughes MD 80 mg at 07/17/22 1635 buPROPion XL (WELLBUTRIN XL) 24 hour tablet 150 mg 150 mg oral Daily Kenisha Hughes MD 150 mg at 07/17/22 1635 Carrier Fluids for Secondary Infusion - 0.9% Sodium Chloride 30 mL intravenous PRN Kenisha Hughes MD carvediloL (COREG) tablet 25 mg 25 mg oral BID Kenisha Hughes MD enoxaparin (LOVENOX) syringe 40 mg 40 mg subcutaneous Daily-2100 Kenisha Hughes MD 40 mg at 07/17/222057 lisinopriL (PRINIVIL,ZESTRIL) tablet 10 mg 10 mg oral Daily Kenisha Hughes MD sodium chloride 0.9% flush 0.5-20 mL 0.5-20 mL intra-catheter Q8H REID Kenisha Hughes MD sodium chloride 0.9% flush 0.5-20 mL 0.5-20 mL intra-catheter PRN Kenisha Hughes MD traMADoL (ULTRAM) tablet 50 mg 50 mg oral Q6H PRN Kenisha Hughes MD 50 mg at 07/18/22 0715 Objective Vitals: 24hr Min/Max: Temp Min: 36.1 ??C (97 ??F) Max: 36.8 ??C (98.2 ??F) Pulse Min: 47 Max: 77 BP Min: 87/72 Max: 121/54 Resp Min: 10 Max: 28 SpO2 Min: 91 % Max: 100 % Most Recent : Vitals: 07/18/22 0430 BP: 112/56 Pulse: 57 Resp: 23 Temp: SpO2: 94% I/O last 2 completed shifts: In: 1400 [I.V.:1400] Out: 1455 [Urine:1150; Drains:5; Blood:300] No intake/output data recorded. Physical Exam: GENERAL: Awake, alert, oriented x 4; no acute distress. HEENT: Eyes: Pupils equal, round, reactive to light and accommodation. NECK: Supple and symmetric. Rt Neck drain with minimal output RESPIRATORY: Good respiratory effort. Chest: Symmetrical rise and fall. Symmetrical expansion with respirations. CARDIOVASCULAR: Regular rate and rhythm. GASTROINTESTINAL: No tenderness or mass. Abdomen is nondistended. MUSCULOSKELETAL: No tenderness or effusion. Range of motion adequate. Strength and tone equal bilaterally, stable. INCISIONS: Bilateral palpable radial and ulnar pulses NEUROLOGICAL: Cranial nerves II-XII grossly intact. Sensation intact. Lab/Radiology/Diagnostic Review: Laboratory review: Lab results in the last 12 hours: Recent Results (from the past 12 hour(s)) CBC with auto differential Collection Time: 07/17/22 9:05 PM Result Value Ref Range WBC 6.8 3.8 - 9.9 K/cumm Hgb 11.7 (L) 11.9 - 15.5 g/dL Hct 34.0 (L) 35.6 - 45.5 % Plt 190 150 - 400 K/cumm MPV 9.7 9.1 - 12.3 fL RBC 3.57 (L) 3.90 - 5.20 M/cumm MCV 95.2 81.3 - 96.4 fL MCH 32.8 27.1 - 33.3 pg MCHC 34.4 32.3 - 35.7 g/dL RDW CV 13.3 11.1 - 14.9 % RDW SD 46.5 35.7 - 48.1 fL NRBC abs 0.00 0.00 - 0.01 K/cumm Basic metabolic panel Collection Time: 07/17/22 9:05 PM Result Value Ref Range Sodium 137 135 - 145 mmol/L Potassium, pl 3.8 3.3 - 4.9 mmol/L Chloride 104 97 - 110 mmol/L CO2 22 22 - 32 mmol/L Anion gap 11 2 - 15 mmol/L BUN 16 8 - 25 mg/dL Creatinine 0.69 0.60 - 1.10 mg/dL Glucose 155 70 - 199 mg/dL Calcium 8.5 8.5 - 10.3 mg/dL Differential, auto Collection Time: 07/17/22 9:05 PM Result Value Ref Range Neutrophil abs 5.6 1.7 - 6.5 K/cumm Imm gran abs 0.0 0.0 - 0.1 K/cumm Lymphocyte abs 0.8 0.8 - 3.3 K/cumm Monocyte abs 0.4 0.2 - 0.8 K/cumm Eosinophil abs 0.0 0.0 - 0.5 K/cumm Basophil abs 0.0 0.0 - 0.1 K/cumm Neutrophil pct 82.3 % Imm gran pct 0.4 % Lymphocyte pct 11.0 % Monocyte pct 6.0 % Eosinophil pct 0.0 % Basophil pct 0.3 % eGFR Collection Time: 07/17/22 9:05 PM Result Value Ref Range eGFR >90 90 - 130 mL/min/1.73 m2 Lipid panel Collection Time: 07/17/22 9:05 PM Result Value Ref Range Cholesterol 114 30 - 199 mg/dL Triglycerides 50 <=149 mg/dL HDL 61 >=40 mg/dL LDL, calculated 43 <=129 mg/dL Non-HDL Cholesterol 53 mg/dL Chol/HDL ratio 2 Assessment/Plan Principal Problem: Occlusion and stenosis of right carotid artery Active Problems: Hypertension Hypertension Assessment & Plan Home regimen: lisinopril 10mg, coreg 25mg BID, amlodipine 10mg, HCTZ 25mg every day -restarted all meds except HCTZ, can restart at dc * Occlusion and stenosis of right carotid artery Assessment & Plan - OR 07/17 for R CEA -dc OU, Q4 NV checks - SBP goal above 120 - Continue aspirin + statin daily - SARAI removed this morning - OOB this morning, walking - Alva discontinued overnight, passed void trial Tannersuresh García MD For patients or family members viewing this note through [email or web address] programs: This note was written as a communication tool between healthcare providers and may contain technical language, terminology and abbreviations that is difficult to interpret without advanced medical training. If you have questions or concerns regarding what is written in this note, please request to speak with the primary medical team taking care of you or your family member or call your PCP for clarification. Please do not call the cell or pager numbers listed in this note, as the provider they are associated with may no longer be involved in your care. Cosigned by Zachary Giron MD at 07/18/2022 3:10 PM ROUGHENER HENER HENER * Cassidy Anglin NP - 07/17/2022 5:49 PM CST Vascular Surgery Daily Progress Patient Name/MRN: Suma Saenz [id number] Treatment Team: Vascular Surgery- Pager: [phone] Attending: Zachary Giron MD Today's Date: 07/17/2022 Room/Bed: [id number] Admit Date: 07/17/2022 Code Status: Full Code Subjective Chief complaint: R carotid stenosis Events During This Hospitalization: OR 07/17 for R CEA Events Over Last 24 Hours: OR for above procedure, arrives to the floor neuro intact SBP stable at 130 Drain: SS with minimal output. No N/V, No CP/SOB. Pain well controlled. Has Voided post-op. Allergies Allergen Reactions Naproxen Rash Nsaids (Non-Steroidal Anti-Inflammatory Drug) Hives Penicillins Rash Sulfa (Sulfonamide Antibiotics) Rash Current Facility-Administered Medications Medication Dose Route Frequency Provider Last Rate Last Admin acetaminophen (TYLENOL) tablet 1,000 mg 1,000 mg oral Q6H PRN Kenisha Hughes MD 1,000 mg at 07/17/222056 allopurinoL (ZYLOPRIM) tablet 100 mg 100 mg oral Nightly Kenisha Hughes MD 100 mg at 07/17/222057 amLODIPine (NORVASC) tablet 10 mg 10 mg oral Daily Kenisha Hughes MD aspirin tablet 325 mg 325 mg oral Daily Kenisha Hughes MD 325 mg at 07/17/22 163 atorvastatin (LIPITOR) tablet 80 mg 80 mg oral Daily Kenisha Hughes MD 80 mg at 07/17/22 163 buPROPion XL (WELLBUTRIN XL) 24 hour tablet 150 mg 150 mg oral Daily Kenisha Hughes MD 150 mg at 07/17/22 1635 Carrier Fluids for Secondary Infusion - 0.9% Sodium Chloride 30 mL intravenous PRN Kenisha Hughes MD carvediloL (COREG) tablet 25 mg 25 mg oral BID Kenisha Hughes MD enoxaparin (LOVENOX) syringe 40 mg 40 mg subcutaneous Daily-2100 Kenisha Hughes MD 40 mg at 07/17/222057 Lactated Ringer's (LR) infusion 30 mL/hr intravenous Continuous Cassidy Reddy NP 30 mL/hrat 07/17/22 162 30 mL/hr at 07/17/22 162 lisinopriL (PRINIVIL,ZESTRIL) tablet 10 mg 10 mg oral Daily Kenisha Hughes MD phenylephrine in 0.9% sodium chloride (JEAN-SYNEPHRINE) 25,000 mcg/250 mL (100 mcg/mL) infusion (premix) solution 0-0.5 mcg/kg/min intravenous Titrated Geovany Bermeo MD PhD 10.01 mL/hr at 07/17/22 1800 0.2 mcg/kg/min at 07/17/22 1800 sodium chloride 0.9% flush 0.5-20 mL 0.5-20 mL intra-catheter Q8H REID Kenisha Hughes MD sodium chloride 0.9% flush 0.5-20 mL 0.5-20 mL intra-catheter PRN Kenisha Hughes MD sodium chloride 0.9% solution 1,000 mL 1,000 mL intra-catheter Continuous Kenisha Hughes MD 1,000 mL at 07/17/22 1624 traMADoL (ULTRAM) tablet 50 mg 50 mg oral Q6H PRN Kenisha Hughes MD 50 mg at 07/17/22 1635 Objective Vitals: 24hr Min/Max: Temp Min: 36.1 ??C (97 ??F) Max: 36.8 ??C (98.2 ??F) Pulse Min: 60 Max: 77 BP Min: 87/72 Max: 120/68 Resp Min: 10 Max: 25 SpO2 Min: 93 % Max: 100 % Most Recent : Vitals: 07/17/22 1900 BP: (!) 88/55 Pulse: 64 Resp: 15 Temp: 36.7 ??C (98.1 ??F) SpO2: 99% I/O last 2 completed shifts: In: 1400 [I.V.:1400] Out: 725 [Urine:425; Blood:300] No intake/output data recorded. Physical Exam: GENERAL: Awake, alert, oriented x 4; no acute distress. HEENT: Eyes: Pupils equal, round, reactive to light and accommodation. NECK: Supple and symmetric. Rt Neck drain with minimal output RESPIRATORY: Good respiratory effort. Chest: Symmetrical rise and fall. Symmetrical expansion with respirations. CARDIOVASCULAR: Regular rate and rhythm. GASTROINTESTINAL: No tenderness or mass. Abdomen is nondistended. MUSCULOSKELETAL: No tenderness or effusion. Range of motion adequate. Strength and tone equal bilaterally, stable. INCISIONS: Bilateral palpable radial and ulnar pulses NEUROLOGICAL: Cranial nerves II-XII grossly intact. Sensation intact. Lab/Radiology/Diagnostic Review: Laboratory review: Lab results in the last 12 hours: Recent Results (from the past 12 hour(s)) POC Blood Gas and Chemistries, Arterial - Collection Time: 07/17/22 10:32 AM Result Value Ref Range pH, Art POC 7.36 7.35 - 7.45 pCO2, Art POC 40 35 - 45 mmHg pO2, Art POC 238 (H) 83 - 108 mmHg Na, POC 139 135 - 145 mmol/L K POC 4.0 3.3 - 4.9 mmol/L Cl, POC 109 97 - 110 mmol/L Ionized Ca, POC 4.93 4.50 - 5.10 mg/dL Glucose, POC 123 70 - 199 mg/dL Lactate, POC 0.9 0.7 - 2.2 mmol/L SO2 (angel) arterial 100 (H) 90 - 95 % Base excess, POC -2.7 mmol/L HCO3, Art POC 23 20 - 30 mmol/L Hct, POC 38.0 36.3 - 45.3 % O2 Sat, Art POC (Calc) 100 % Total Hb, POC 12.6 11.9 - 15.5 g/dL Assessment/Plan Principal Problem: Occlusion and stenosis of right carotid artery Active Problems: Right carotid artery occlusion * Occlusion and stenosis of right carotid artery Assessment & Plan - OR 07/17 for R CEA - OU status, NV checks/VS q2h - SBP goal above 120 - Continue aspirin + statin daily - SARAI Drain care - Bedrest post-procedure, OOB POD #1 - Alva out in am Tanner García MD For patients or family members viewing this note through [employer] programs: This note was written as a communication tool between healthcare providers and may contain technical language, terminology and abbreviations that is difficult to interpret without advanced medical training. If you have questions or concerns regarding what is written in this note, please request to speak with the primary medical team taking care of you or your family member or call your PCP for clarification. Please do not call the cell or pager numbers listed in this note, as the provider they are associated with may no longer be involved in your care. HENER HENER documented in this encounter H&P Notes * Kenisha Hughes MD - 07/17/2022 7:07 AM CST I have reviewed the H&P, examined the patient, and endorse the findings as written. Plan of Care : Based on the above findings, I consider Suma Saenz to be an acceptable risk for : Procedure(s): ENDARTERECTOMY - CAROTID WITH PATCH GRAFT right Cosigned by Zachary Giron MD at 07/17/2022 7:26 AM ROUGHENER HENER HENER Source Note - Montserrat Garrison NP - 07/03/2022 1:36 PM CDT Images from the original note were not included. [facility] for Preoperative Assessment and Planning Preoperative Evaluation Record Evaluation type/location: [facility] Planned procedure site: 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 female Procedure(s): ENDARTERECTOMY - CAROTID WITH PATCH GRAFT Pre-Op Diagnosis Codes: * Occlusion and stenosis of right carotid artery [I65.21] HISTORY HPI Suma Saenz is a 76 y.o. female who is being evaluated prior to undergoing right carotid endarterectomy with patch graft for occlusion and stenosis of right carotid artery. PMH: mild-moderate AI, mild MR, grade 1 diastolic dysfunction, ICA stenosis (R: 50%, L: 57%), Crohns Past Medical History Information obtained from: patient and chart. Neurological + CVA/Stroke (2017 & 2019 - no residual) Number of CVA episodes: 1. Date of last CVA: 2019. + ICA stenosis - left internal carotid artery and right internal carotid artery. Left ICA stenosis 50-69%. Right ICA stenosis 50-69%. + Psychiatric history - anxiety and depression Pertinent negatives: seizures; neuromuscular disease; TIA; CEA; dementia/mild cognitive impairment and carotid artery stent Cardiovascular + Hypertension Hypertension year diagnosed: 1. Typical systolic BP - 130 Typical diastolic BP - 60 + Hyperlipidemia (1972) + Systolic or diastolic dysfunction w/o CHF Diastolic dysfunction w/o CHF. Diastolic function: stage I - impaired relaxation LVEF: 50-60%. + Current valvular disease - AR - mild-moderate; MR - mild; Pertinent negatives: CAD ; [place] ; CABG ; valve replacement; atrial fibrillation; arrhythmia; pacemaker/ICD; PVD; DVT/PE; negative for CHF; drug-eluting stent(s); bare metal stent(s); unknown stent(s) type and coronary angioplasty Comments: Severe systemic arterial Hypertension per cardiac cath done 10/18/2019, no obstructive CAD. Respiratory Pertinent negatives: COPD; asthma; sleep apnea (MARC); pulmonary hypertension; no O2 use outside thehospital and non-smoker Hepatic / Heme Pertinent negatives: liver disease; history of anemia; history of thrombocytopenia and history of Mara positive Gastrointestinal + GERD - does not use medication. Symptoms < 1x/week. Pertinent negatives: hiatal hernia Comments: Hx Crohns with bowel resection Renal / Pertinent negatives: renal disease; dialysis and nephrolithiasis Comments: Recent frequent UTIs Musculoskeletal/Pain + Chronic pain - back pain. + Osteoarthritis Pertinent negatives: chronic opioid use; previous treatment for opioid use disorder and headaches Comments: DDD L5-S1 Endocrine / Other + Rheumatological disease (followed by gastroenterology) - Crohn's disease. + Infectious disease (Last UTI tx 3 weeks ago) - UTI. + Eye disorder (cataract surgery both eyes) Pertinent negatives: diabetes mellitus; thyroid disease; obesity (BMI >30); cancer history; transplanted organ and pancreatitis Functional Capacity Functional capacity: <4 METs Functional capacity limited by a non-cardiovascular, non-pulmonary condition. Comments: Limited mobility due to back and leg pain. Denies SOB or CP with daily chores around the house (cook, cleaning). Review of Systems + easy bruising (Denies excessive bleeding) + chronic pain + hard of hearing (2/2 aging) + vision loss (glasses) + diarrhea (2/2 crohns) Pertinent negatives: productive cough; wheezing; SOB; recent cold/flu; fever; chest pain; palpitations; orthopnea; pedal edema; PND; previous transfusion; transfusion reaction; melena/hematochezia; bleeding problems; syncope; dizziness; muscle weakness; numbness/tingling; heartburn; nausea; dysphagia; dentures/partials; chipped/loose teeth; abdominal pain; diaphoresis and no unexpected weight change Comments: Denies S&S of UTI. PAT Summary and Plans Cardiac risk classification of planned procedure: intermediate cardiac risk. Preoperative assessment status: lab tests ordered. Additional comments: Suma Saenz is a 76 y.o. female who is being evaluated prior to undergoing an intermediate cardiac risk surgery. Revised Cardiac Risk Index factors are (history of cerebrovascular disease) for a total RCRI of 1 out of 6. Functional capacity is <4 METs (specifically: Limited mobility due to back and leg pain. Denies SOB or CP with daily chores around the house (cook, cl eaning)). Obstructive sleep apnea (MARC) screening status is STOP-Bang=2 suggesting low risk for MARC Blood bank needs for day of procedure: Type and Screen only Pending labs/tests include: CBC BMP T&S PT CpapPTT Urinalysis flex The patient is on aspirin therapy and is scheduled for cardiac/vascular surgery where aspirin is routinely continued for periprocedural benefit. Patient reports this plan is already in place per surgery. ++Patient is under the impression that a left endarterectomy is being performed. In Basket message sent to surgeon's office to clarify with patient. Preoperative evaluation performed by Cassidy Reddy NP on 07/03/22 at 1:42 PM. . Follow up note Labs reviewed and are without significant findings. Surgeon's office reviews laboratory results independently, including final results of surgeon ordered labs. CPAP process complete. Follow-up completed by: Montserrat Garrison NP on 07/04/22 at 12:23 PM Patient Active Problem List Diagnosis ??? Dizziness ??? Stenosis of brachiocephalic artery (CMS/HCC) (HCC) ??? Adiposity ??? Hypertension ??? Heart murmur ??? Non-specific colitis ??? Tobacco dependence in remission ??? Orthostatic hypotension ??? Mitral valve insufficiency ??? Carotid artery disease (CMS/HCC) (HCC) ??? Aortic valve insufficiency ??? Stenosis of carotid artery ??? History of ischemic left MCA stroke ??? Labile hypertension ??? Chronic back pain complicated by acute surgical pain ??? Acute blood loss anemia ??? Status post carotid surgery ??? Hematoma of chest wall, right, initial encounter ??? UTI (urinary tract infection) ??? Acute pain ??? 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 ??? Mixed hyperlipidemia ??? Occlusion and stenosis of right carotid artery Past Medical History: Diagnosis Date ??? Anxiety ??? Back pain ??? Carotid stenosis ??? Degenerative disc disease at L5-S1 level ??? Depression ??? Orthostatic hypotension ??? Syncope 10/18/2019 Past Surgical History: Procedure Laterality Date ??? APPENDECTOMY 2010 ??? CARDIAC CATHETERIZATION 10/18/2019 ??? CARPAL TUNNEL RELEASE 11/13/2005 1. Surgical release of compression of the median nerve, right wrist; surgical release of tenosynovitis of the right ring finger; and surgical release of tenosynovitis of the right middle finger. ??? CATARACT EXTRACTION EXTRACAPSULAR W/ INTRAOCULAR LENS IMPLANTATION Bilateral 2018 OB History No obstetric history on file. Obstetric Comments Post menopause Allergies Allergen Reactions ??? Naproxen Rash ??? Nsaids (Non-Steroidal Anti-Inflammatory Drug) Hives ??? Penicillins Rash ??? Sulfa (Sulfonamide Antibiotics) Rash Taking? Last Dose Start Date End Date Provider acetaminophen 500 mg capsule -- 11/04/19 -- Annemarie Lynne NP Take 2 capsules (1,000 mg total) by mouth every 6 (six) hours as needed for pain allopurinoL (ZYLOPRIM) 100 mg tablet -- 04/23/21 -- Nimesh Lamb MD amLODIPine (NORVASC) 10 mg tablet -- 11/04/19 -- Annemarie Lynne NP Take 1 tablet (10 mg total) by mouth daily aspirin 325 mg tablet -- 07/04/16 -- Marco A Antoine MD take 1 tablet by oral route every day atorvastatin (LIPITOR) 80 mg tablet -- 07/04/16 -- Marco A Antoine MD take 1 tablet by oral route every day azithromycin (ZITHROMAX) 250 mg tablet -- 04/30/22 -- Nimesh Lamb MD benzonatate (TESSALON) 200 mg capsule -- 04/30/22 -- Nimesh Lamb MD biotin 10,000 mcg capsule -- -- -- Nimesh Lamb MD buPROPion XL (WELLBUTRIN XL) 150 mg 24 hr tablet -- 02/26/15 -- Marco A Antoine MD take 1 tablet by oral route 2 times every day carvediloL (COREG) 25 mg tablet -- 11/04/19 -- Annemarie Lynne NP Take 1 tablet (25 mg total) by mouth 2 (two) times a day cetirizine (ZyrTEC) 10 mg tablet -- 02/26/15 -- Marco A Antoine MD take 1 tablet by oral route every day doxycycline monohydrate (MONODOX) 100 mg capsule -- 05/07/22 -- Nimesh Lamb MD estradioL (ESTRACE) 0.01 % (0.1 mg/gram) vaginal cream -- 05/26/22 -- Nimesh Lamb MD hydroCHLOROthiazide (HYDRODIURIL) 25 mg tablet -- -- -- Nimesh Lamb MD Lactobacillus acidophilus capsule -- -- -- Nimesh Lamb MD lisinopriL (PRINIVIL,ZESTRIL) 10 mg tablet -- 11/04/19 -- Annemarie Lynne NP Take 1 tablet (10 mg total) by mouth daily medical cannabis each -- -- -- Nimesh Lamb MD mesalamine (PENTASA) 250 mg CR capsule -- -- -- Nimesh Lamb MD montelukast (SINGULAIR) 10 mg tablet -- 11/03/16 -- Marco A Antoine MD take 1 tablet by oral route every day in the evening nitrofurantoin monohydrate (MACROBID) 100 mg capsule -- 05/26/22 -- Nimesh Lamb MD oxyCODONE (ROXICODONE) 5 mg immediate release tablet -- 11/04/19 -- Adeola Torrez MD Take 1 tablet (5 mg total) by mouth every 4 (four) hours as needed for pain Current Outpatient Medications: ??? acetaminophen 500 mg capsule ??? allopurinoL (ZYLOPRIM) 100 mg tablet ??? amLODIPine (NORVASC) 10 mg tablet ??? aspirin 325 mg tablet ??? atorvastatin (LIPITOR) 80 mg tablet ??? azithromycin (ZITHROMAX) 250 mg tablet ??? benzonatate (TESSALON) 200 mg capsule ??? biotin 10,000 mcg capsule ??? buPROPion XL (WELLBUTRIN XL) 150 mg 24 hr tablet ??? carvediloL (COREG) 25 mg tablet ??? cetirizine (ZyrTEC) 10 mg tablet ??? doxycycline monohydrate (MONODOX) 100 mg capsule ??? estradioL (ESTRACE) 0.01 % (0.1 mg/gram) vaginal cream ??? hydroCHLOROthiazide (HYDRODIURIL) 25 mg tablet ??? Lactobacillus acidophilus capsule ??? lisinopriL (PRINIVIL,ZESTRIL) 10 mg tablet ??? medical cannabis each ??? mesalamine (PENTASA) 250 mg CR capsule ??? montelukast (SINGULAIR) 10 mg tablet ??? nitrofurantoin monohydrate (MACROBID) 100 mg capsule ??? oxyCODONE (ROXICODONE) 5 mg immediate release tablet Social History Tobacco Use Smoking Status Former ??? Types: Cigarettes Smokeless Tobacco Never Alcohol Use: Not on file Substance and Sexual Activity Drug Use Never Family History Problem Relation Age of Onset ??? Stroke Father Stroke; ??? Heart disease Father Family history of cardiac disorder - (Added by TW Conv) ??? Heart disease Mother Heart disease; /Family history of cardiac disorder - (Added by TW Conv) PAT Physical Exam Airway Exam: Mallampati: III Cervical ROM: FROM TM distance: 3 Upper lip bite test class: 1 Cardiovascular Exam: Rate: regular Rhythm: regular Murmur: grade II/ and holosystolic murmur No extra heart sounds appreciated Negative for peripheral edema Pulmonary Exam: LCTA EENT Exam: trachea midline Dental Exam: Appears intact Skin Exam: Skin is warm. Capillary refill is < 3 seconds. Abdominal exam: Abdomen is soft. Bowel sounds are present. Current state: Patient's current state is cooperative and interactive. Vitals: 07/03/22 1338 BP: 155/61 Pulse: 69 Resp: 16 SpO2: 98% Relevant diagnostics: ECG(s): 07/03/22 73 BPM; NSR with PVCs 08/14/21 63 BPM; NSR with PVCs Echocardiogram(s): 10/31/19 JASON Diastolic function: grade I dysfunction Normal RV/LV systolic function. LVH. LV diastolic dysfunction c/w impaired relaxation. Mild-moderate central AI. Mild MR. No significant atherosclerosis of ascending aorta & aortic arch. No thrombus seen in DINA. No PFO by color Doppler. Stress test(s): N/A Cardiac catheterization(s): 10/18/19 DIAGNOSTIC IMPRESSIONS 1. Severe systemic arterial hypertension. 2. Severe elevation of LVEDP (198/28). 3. No significant obstructive coronary disease. Vascular studies: 06/16/22 CTA Head IMPRESSION: 1. Postsurgical changes of partial median sternotomy, right axillary artery bypass, and right common carotid artery and left common carotid artery bypass with complex aortic arch reconstruction. 2. Atherosclerotic calcification of the common carotid arteries resulting in 57% stenosis of the left common carotid artery just inferior to the bifurcation and 50% stenosis of the right common carotid artery at the bifurcation. Other: 10/31/19 CTA Chest 1. Diffuse emphysema seen. There is no focal consolidation. Bibasilar atelectasis are seen. PT: No results found for requested labs within last 720 hours. INR: No results found for requested labs within last 720 hours. APTT: No results found for requested labs within last 720 hours. Hgb A1C: No results found for requested labs within last 720 hours. CBC RBC: No results found for requested labs within last 720 hours. RDW: No results found for requested labs within last 720 hours. MCHC: No results found for requested labs within last 720 hours. MCH: No results found for requested labs within last 720 hours. MCV: No results found for requested labs within last 720 hours. Hct: No results found for requested labs within last 720 hours. Hgb: No results found for requested labs within last 720 hours. WBC: No results found for requested labs within last 720 hours. MPV: No results found for requested labs within last 720 hours. Platelets: No results found for requested labs within last 720 hours. RDW CV: No results found for requested labs within last 720 hours. RDW Sd: No results found for requested labs within last 720 hours. BMP Glucose: No results found for requested labs within last 720 hours. Calcium: No results found for requested labs within last 720 hours. Sodium: No results found for requested labs within last 720 hours. Potassium: No results found for requested labs within last 720 hours. CO2: No results found for requested labs within last 720 hours. Chloride: No results found for requested labs within last 720 hours. BUN: No results found for requested labs within last 720 hours. Creatinine: 06/16/2022: 0.8 mg/dL documented in this encounter Miscellaneous Notes * Plan of Care - Shira Zuleta RN - 07/18/2022 9:41 AM CST Problem: Health Behavior: Goal: Understanding of discharge needs will improve Outcome: Progressing HENER * Assessment & Plan Note - Doreen Rascon NP - 07/18/2022 7:49 AM CSTAssociated Problem(s): Hypertension Home regimen: lisinopril 10mg, coreg 25mg BID, amlodipine 10mg, HCTZ 25mg every day -restarted all meds except HCTZ, can restart at dc HENER * Plan of Care - Rossy Chavez RN - 07/17/2022 11:21 PM CST Problem: Health Behavior: Goal: Understanding of discharge needs will improve Outcome: Progressing Goals: Clinical goals of the shift: Monitor VS, NV checks, pain control, SBP goal 120- 160, I/O's, void trial 2330, obtain labs, & sleep hygiene. Summary: HENER * Plan of Care - Shira Zuleta RN - 07/17/2022 5:06 PM CST Problem: Health Behavior: Goal: Understanding of discharge needs will improve Outcome: Progressing HENER * Perioperative Nursing Note - Mamta Ordonez RN - 07/17/2022 10:15 AM CST 09:25 am clamp, 09:29 clamp off HENER * Op Note - Zachary Giron MD - 07/17/2022 8:34 AM CST Date of Surgery: 07/17/2022 Patient Name:Suma Saenz Patient :1945 Patient Attending Surgeon: Zachary Giron MD First Attendance Officer: Kenisha Hughes MD Preoperative Diagnosis: Severe asymptomatic stenosis of the right internal carotid artery Postoperative Diagnosis: Severe asymptomatic stenosis of the right internal carotid artery Procedures: Right carotid endarterectomy with bovine pericardial patch angioplasty Anesthesia: General Estimated Blood Loss: 50 ml Intravenous Fluids: See anesthesia records Indication for Surgery: This pleasant lady is well known to me after reconstruction of her great vessels several years ago. She has a progressively severe right internal carotid artery stenosis whichis heavily calcified. I have recommended right carotid endarterectomy for stroke prophylaxis.. Risks of the procedure were reviewed with the patient including the risks of , stroke, cranial nerve injury, myocardial infarction, bleeding, infection, patch infection, lymphatic leak, restenosis, need for further procedures, and other possible complications. All of the patient's questions were answered and informed consent was signed. Specimens: Carotid plaque to the Vascular Biobank Complications: None evident Antibiotics: Ancef 2 gm IV given within one hour of procedure start and will terminate within 24 hours DVT Prophylaxis/Anticoagulation: The patient was systemically anticoagulated during the procedure. No other DVT prophylaxis required. Presence Statement: I was present and scrubbed for the entire procedure except the skin closure, for which I was immediately available Operative Findings: Satisfactory endarterectomy. The patient awoke neurologically intact. Description of Procedure: The patient was brought to the operating room and was placed in the supine position. A time-out procedure was performed. General anesthesia was induced. Arterial monitoring line was placed by the anesthesia service. The right neck and chest were prepped and draped in sterile fashion utilizing Ioban drape. Incision was made along the anterior border of the sternocleidomastoid muscle. Subcutaneous tissues and platysma were divided with the cautery. Crossing vascular structures were ligated with silk ties and divided. The sternocleidomastoid was reflected laterally and the anterior border of the internal jugular vein was dissected free as the patient was systemically anticoagulated. Anticoagulation was maintained throughout the reconstruction. The facial vein was identified, doubly ligated and divided. The right common carotid artery was dissected free and looselyencircled with a Rumel tourniquet. The vagus nerve was identified and spared throughout the dissection. Moving distally,the origin of the external carotid artery was loosely encircled with a vessel loop. The hypoglossal nerve was identified and spared. The distal disease-free segment of the right internal carotid artery was identified and loosely encircled with a modified Rumel tourniquet. After verifying therapeutic anticoagulation, the vessels were controlled in the usual sequence. We checked a stump back pressure. Arteriotomy was made extending from the distal common carotid artery up to the disease-free distal internal carotid artery. Mean arterial stump pressure was less than 60mm Hg and a Sundt external shunt was placed in routine fashion and flow verified with the Doppler probe every 4 min. Endarterectomy commenced in the common carotid artery and we achieved an excellentflush proximal endpoint. Moving distally, eversion endarterectomy of the external carotid artery was performed, followed by completion of the internal carotid endarterectomy, with excellent feathering endpoint. All loose bits of plaque were removed under loupe magnification and the field was thoroughly irrigated with heparinized saline. A bovine pericardial patch was brought onto the field, oriented appropriately, and sewn in with running 5 0 Prolene suture. We irrigated frequently with heparinized saline. Prior to completing the patch suture line, the shunt was clamped and removed and each vessel was allowed to separately flush out. After final irrigation, the suture line was rapidly completed. Flow was restored in the usual sequence and this was well tolerated. We reversed with protamine. Excellent hemostasis was obtained. There were appropriate pulsations and Doppler signals in all vessels. After final antibiotic irrigation, deep closure was performed withrunning 2 0 Vicryl suture. A subplatysmal Carrington-Sanchez drain was placed, secured at the skin with a nylon suture, and attached to bulb suction. The platysma was closed with 3 0 Vicryl suture and skin was closed with subcuticular suture and Dermabond. The patient was awakened and demonstrated an intact neurologic exam, and was then taken to the recovery area in stable condition, having tolerated the procedure well. There were no evident complications. Needle, sponge, and instrument counts reported as correct. The patient will be admitted for neurologic and blood pressure monitoring, and will be maintained on daily aspirin. Condition on Discharge from Operating Room: Stable . HENER * Assessment & Plan Note - Cassidy Anglin NP - 07/17/2022 5:44 AM CSTAssociated Problem(s): Occlusion and stenosis of right carotid artery - OR 07/17 for R CEA -dc OU, Q4 NV checks - SBP goal above 120 - Continue aspirin + statin daily - SARAI removed this morning - OOB this morning, walking - Alva discontinued overnight, passed void trial HENER HENER HENER HENER documented in this encounter Plan of Treatment Not on file documented as of this encounter Procedures Procedure Name Priority Date/Time Associated Diagnosis Comments EGFR Routine 07/17/2022 9:05 PM ROUGHENER DIFFERENTIAL AUTO Routine 07/17/2022 9:0 5 PM ROUGHENER CBC WITH AUTO DIFFERENTIAL Routine 07/17/2022 9:05 PM ROUGHENER LIPID PANEL Routine 07/17/2022 9:05 PM ROUGHENER BASIC METABOLIC PANEL Routine 07/17/2022 9:05 PM ROUGHENER POCT ACTIVATED CLOTTING TIME, LOW RANGE Routine 07/17/2022 10:35 AM ROUGHENER POC BLOOD GAS AND CHEMISTRIES, ARTERIAL Routine 07/17/2022 10:32 AM ROUGHENER POCT ACTIVATED CLOTTING TIME, LOW RANGE Routine 07/17/2022 10:26 AM ROUGHENER POCT ACTIVATED CLOTTING TIME, LOW RANGE Routine 07/17/2022 9:55 AM ROUGHENER POCT ACTIVATED CLOTTING TIME, LOW RANGE Routine 07/17/2022 9:34 AM ROUGHENER POC BLOOD GAS AND CHEMISTRIES, ARTERIAL Routine 07/17/2022 9:16 AM ROUGHENER POCT ACTIVATED CLOTTING TIME, LOW RANGE Routine 07/17/2022 9:08 AM ROUGHENER ENDARTERECTOMY - CAROTID WITH PATCH GRAFT 07/17/2022 7:31 AM ROUGHENER Occlusion and stenosis of right carotid artery COVID-19 CORONAVIRUS RNA Routine 07/17/2022 6:17 AM ROUGHENER documented in this encounter Results * Lipid panel (07/17/2022 9:05 PM ROUGHENER) Pathologist [facility] [place] Cholesterol 114 30 - 199 mg/dL [facility] Comment: Interpretive Data Ages < or = 19 years ??Acceptable: ? <170 mg/dL ??Borderline high: ??170-199 mg/dL ??High: ? >or= 200 mg/dL Ages > or = 20 years ??Desirable: ?<200 mg/dL ??Borderline high: ??200-239 mg/dL ??High: ? >or= 240 mg/dL Literature References: 1. Expert Panel on Integrated Guidelines for Cardiovascular Health and Risk Reduction in Children and Adolescents. Pediatrics 2011;128:S213 2. NCEP Expert Panel. Circulation 2004;110:227 Current Interpretive Data was last revised on 2018. Triglycerides 50 <=149 mg/dL [facility] Comment: Interpretive Data Ages < or = 9 years ??Acceptable: ? <75 mg/dL ??Borderline high: ??75-99 mg/dL ??High: ? >or= 100 mg/dL Ages 10 to 20 years ??Acceptable: ? <90 mg/dL ??Borderline high: ??90-129 mg/dL ??High: ? >or= 130 mg/dL Ages > or = 20 years ??Desirable: ?<150 mg/dL ??Borderline high: ??150-199 mg/dL ??High: ? 200-499 mg/dL ?Very high: ?? >or= 499 mg/dL Literature References: 1. Expert Panel on Integrated Guidelines for Cardiovascular Health and Risk Reduction in Children and Adolescents. Pediatrics 2011;128:S213 2. NCEP Expert Panel. Circulation 2004;110:227 Current Interpretive Data was last revised on 2018. HDL 61 >=40 mg/dL [facility] Comment: Interpretive Data Ages < or = 19 years ??Acceptable: ? >45 mg/dL ??Borderline low: ?? 40-45 mg/dL ??Low: ? <40 mg/dL Ages > or = 20 years ??Desirable: ?>or= 60 mg/dL ??Low: ? <40 mg/dL Literature References: 1. Expert Panel on Integrated Guidelines for Cardiovascular Health and Risk Reduction in Children and Adolescents. Pediatrics 2011;128:S213 2. NCEP Expert Panel. Circulation 2004;110:227 Current Interpretive Data was last revised on 2018. LDL, calculated 43 <=129 mg/dL [facility] Comment: Interpretive Data Ages < or = 19 years ??Acceptable: ? <110 mg/dL ??Borderline high: ??110-129 mg/dL ??High: ?>or= 130 mg/dL Ages > or = 20 years ??Optimal: ? <100 mg/dL ??Near optimal: ?100-129 mg/dL ??Borderline high: ?? 130-159 mg/dL ??High: ?>160 mg/dL Literature References: 1. Expert Panel on Integrated Guidelines for Cardiovascular Health and Risk Reduction in Children and Adolescents. Pediatrics 2011;128:S213 2. NCEP Expert Panel. Circulation 2004;110:227 Current Interpretive Data was last revised on 2018. Non-HDL Cholesterol 53 mg/dL [facility] Comment: Interpretive Data Ages < or = 19 years ??Acceptable: ?<120 mg/dL ??Borderline high: ??120-144 mg/dL ??High: ?>145 mg/dL Ages > or = 20 years ??When triglycerides are >200 mg/dL, Non-HDL cholesterol is a secondary target of ? therapy with treatment goals that are 30 mg/dL greater than the LDL cholesterol target. ? Literature References: 1. Expert Panel on Integrated Guidelines for Cardiovascular Health and Risk Reduction in Children and Adolescents. Pediatrics 2011;128:S213 2. NCEP Expert Panel. Circulation 2004;110:227 Current Interpretive Data was last revised on 2018. Chol/HDL ratio 2 [facility] Blood 07/17/2022 9:05 PM ROUGHENER 07/17/2022 9:44 PM ROUGHENER us Zachary Giron MD LAB BLOOD ORDERABLES Tiffany pacheco Result [facility] Department [place] [address] * eGFR (07/17/2022 9:05 PM ROUGHENER) eGFR >90 90 - 130 mL/min/1. 73 m2 [facility] Comment: Interpretive Data Reference Interval Normal ?>/= 90 mL/min/1.73m2 Mildly decreased* ? 60 - 89 mL/min/1.73m2 Mildly to moderately decreased ?45 - 59 mL/min/1.73m2 Moderately to severely decreased ??30 - 44 mL/min/1.73m2 Severely decreased ?15 - 29 mL/min/1.73m2 Kidney Failure ?< 15 ??mL/min/1.73m2 *Relative to young adult level Estimated glomerular filtration rate is determined by the 2020 CKD-EPI equation recommended by the National Kidney Foundation (A Unifying Approach to GFR Estimation: Recommendations of the NKF-ASK Task Force on Reassessing the Inclusion of Race in Diagnosing Kidney Disease, JASN 2020). The CKD-EPI equation should not be used for patients with unstable renal function and has not been validated in children and those over 70. Current interpretive data was last reviewed 2021. Blood 07/17/2022 9:05 PM ROUGHENER 07/17/2022 9:44 PM ROUGHENER us Zachary Giron MD LAB BLOOD ORDERABLES Tiffany tara Result [facility] Department [place] [address] * Differential, auto (07/17/2022 9:05 PM ROUGHENER) Pathologist [facility] [place] Neutrophil abs 5.6 1.7 - 6.5 K/cumm [facility] Imm gran abs 0.0 0.0 - 0.1 K/cumm [facility] Lymphocyte abs 0.8 0.8 - 3.3 K/cumm [facility] Monocyte abs 0.4 0.2 - 0.8 K/cumm [facility] Eosinophil abs 0.0 0.0 - 0.5 K/cumm [facility] Basophil abs 0.0 0.0 - 0.1 K/cumm [facility] Neutrophil pct 82.3 % [facility] Comment: Interpretive Data Percent cell count reference ranges are not reported, since discordance with absolute values may lead to misinterpretation of CBC data. Current Interpretive Data was last revised on 2017. Imm gran pct 0.4 % [facility] Comment: Interpretive Data Percent cell count reference ranges are not reported, since discordance with absolute values may lead to misinterpretation of CBC data. Current Interpretive Data was last revised on 2017. Lymphocyte pct 11.0 % [facility] Comment: Interpretive Data Percent cell count reference ranges are not reported, since discordance with absolute values may lead to misinterpretation of CBC data. Current Interpretive Data was last revised on 2017. Monocyte pct 6.0 % [facility] Comment: Interpretive Data Percent cell count reference ranges are not reported, since discordance with absolute values may lead to misinterpretation of CBC data. Current Interpretive Data was last revised on 2017. Eosinophil pct 0.0 % [facility] Comment: Interpretive Data Percent cell count reference ranges are not reported, since discordance with absolute values may lead to misinterpretation of CBC data. Current Interpretive Data was last revised on 2017. Basophil pct 0.3 % [facility] Comment: Interpretive Data Percent cell count reference ranges are not reported, since discordance with absolute values may lead to misinterpretation of CBC data. Current Interpretive Data was last revised on 2017. Blood 07/17/2022 9:05 PM ROUGHENER 07/17/2022 9:44 PM ROUGHENER Zachary Giron MD LAB BLOOD ORDERABLES Tifafny pacheco Result [facility] Department [place] [address] * Basic metabolic panel (07/17/2022 9:05 PM ROUGHENER) Sodium 137 135 - 145 mmol/L [facility] Potassium, pl 3.8 3.3 - 4.9 mmol/L [facility] Chloride 104 97 - 110 mmol/L [facility] CO2 22 22 - 32 mmol/L [facility] Anion gap 11 2 - 15 mmol/L [facility] BUN 16 8 - 25 mg/dL [facility] Creatinine 0.69 0.60 - 1.10 mg/dL [facility] Glucose 155 70 - 199 mg/dL [facility] Comment: Interpretive Data Fasting glucose >/= 126 mg/dl is diagnostic for diabetes. ?? Fasting is defined as no caloric intake for at least 8 hours. Fasting glucose between 100 mg/dl to 125 mg/dl is diagnostic of prediabetes. In a patient with classic symptoms of hyperglycemia or hyperglycemic crisis, a random glucose >/= 200 mg/dl is diagnostic for diabetes. In the absence of unequivocal hyperglycemia, results should be confirmed by repeat testing. The classification and Diagnosis of Diabetes Diabetes Care 2017;40 (Suppl. 1):S11. Current interpretive data was last revised 2017. Calcium 8.5 8.5 - 10.3 mg/dL [facility] Blood 07/17/2022 9:05 PM ROUGHENER 07/17/2022 9:44 PM ROUGHENER Zachary Giron MD LAB BLOOD ORDERABLES Tiffany l Result Performing Organization Address [facility] Co de Phone Number [facility] Department [place] [address] * (ABNORMAL) CBC with auto differential (07/17/2022 9:05 PM ROUGHENER) WBC 6.8 3.8 - 9.9 K/cumm [facility] Hgb 11.7(L) 11.9 - 15.5 g/dL [facility] Hct 34.0(L) 35.6 - 45.5 % [facility] Plt 190 150 - 400 K/cumm [facility] MPV 9.7 9.1 - 12.3 fL [facility] RBC 3.57(L) 3.90 - 5.20 M/cumm [facility] MCV 95.2 81.3 - 96.4 fL [facility] MCH 32.8 27.1 - 33.3 pg [facility] MCHC 34.4 32.3 - 35.7 g/dL [facility] RDW CV 13.3 11.1 - 14.9 % [facility] RDW SD 46.5 35.7 - 48.1 fL [facility] NRBC abs 0.00 0.00 - 0.01 K/cumm [facility] Blood 07/17/2022 9:05 PM ROUGHENER 07/17/2022 9:44 PM ROUGHENER Zachary Giron MD LAB BLOOD ORDERABLES Tiffany l Result [facility] Department [place] [address] * POCT Activated clotting time, low range (07/17/2022 10:35 AM ROUGHENER) ACT 155 123 - 168 sec [facility] Blood 07/17/2022 10:3 5 AM ROUGHENER 07/17/2022 10:35 AM ROUGHENER us Zachary Giron MD LAB POCT ORDERABLES - DEV ICE Final Result [facility] Department [place] [address] * (ABNORMAL) POC Blood Gas and Chemistries, Arterial - (07/17/2022 10:32 AM ROUGHENER) pH, Art POC 7.36 7.35 - 7.45 [facility] pCO2, Art POC 40 35 - 45 mmHg [facility] pO2, Art POC 238(H) 83 - 108 mmHg [facility] Na, POC 139 135 - 145 mmol/L [facility] K POC 4.0 3.3 - 4.9 mmol/L [facility] Comment: Interpretive Data This method is not able to assess for hemolysis, which may falsely increase potassium concentrations. If further testing is needed to evaluate this result, consider in-laboratory plasma potassium. Current Interpretive Data was last revised on 2022. Cl, POC 109 97 - 110 mmol/L [facility] Ionized Ca, POC 4.93 4.50 - 5.10 mg/dL [facility] Glucose, POC 123 70 - 199 mg/dL [facility] Lactate, POC 0.9 0.7 - 2.2 mmol/L [facility] SO2 (angel) arterial 100(H) 90 - 95 % [facility] Base excess, POC -2.7 mmol/L [facility] HCO3, Art POC 23 20 - 30 mmol/L [facility] Hct, POC 38.0 36.3 - 45.3 % [facility] O2 Sat, Art POC (Calc) 100 % [facility] Total Hb, POC 12.6 11.9 - 15.5 g/dL [facility] Blood 07/17/2022 10:3 2 AM ROUGHENER 07/17/2022 10:32 AM ROUGHENER Zachary Giron MD LAB POCT ORDERABLES - DEV ICE Final Result [facility] [email or web address] [address] * (ABNORMAL) POCT Activated clotting time, low range (07/17/2022 10:26 AM ROUGHENER) ACT 257(H) 123 - 168 sec [facility] Blood 07/17/2022 10:2 6 AM ROUGHENER 07/17/2022 10:26 AM ROUGHENER us Zachary Giron MD LAB POCT ORDERABLES - DEV ICE Final Result Performing Organization Address City/[facility] [place] [address] * (ABNORMAL) POCT Activated clotting time, low range (07/17/2022 9:55 AM ROUGHENER) ACT 280(H) 123 - 168 sec [facility] Blood 07/17/2022 9:55 AM ROUGHENER 07/17/2022 9:55 AM ROUGHENER us Zachary Giron MD LAB POCT ORDERABLES - DEV ICE Final Result Performing Organization Address [facility] [place] [address] * (ABNORMAL) POCT Activated clotting time, low range (07/17/2022 9:34 AM ROUGHENER) ACT 302(H) 123 - 168 sec [facility] Blood 07/17/2022 9:34 AM ROUGHENER 07/17/2022 9:34 AM ROUGHENER us Zachary Giron MD LAB POCT ORDERABLES - DEV ICE Final Result Performing Organization Address City/[facility]/ZIP Co de Phone Number [facility] [email or web address] [address] * (ABNORMAL) POC Blood Gas and Chemistries, Arterial - (07/17/2022 9:16 AM ROUGHENER) pH, Art POC 7.32(L) 7.35 - 7.45 [facility] pCO2, Art POC 42 35 - 45 mmHg [facility] pO2, Art POC 153(H) 83 - 108 mmHg [facility] Na, POC 138 135 - 145 mmol/L [facility] K POC 4.0 3.3 - 4.9 mmol/L [facility] Comment: Interpretive Data This method is not able to assess for hemolysis, which may falsely increase potassium concentrations. If further testing is needed to evaluate this result, consider in-laboratory plasma potassium. Current Interpretive Data was last revised on 2022. Cl, POC 106 97 - 110 mmol/L [facility] Ionized Ca, POC 4.62 4.50 - 5.10 mg/dL [facility] Glucose, POC 119 70 - 199 mg/dL [facility] Lactate, POC 1.0 0.7 - 2.2 mmol/L [facility] SO2 (angel) arterial 99(H) 90 - 95 % [facility] Base excess, POC -4.3 mmol/L [facility] HCO3, Art POC 22 20 - 30 mmol/L [facility] Hct, POC 40.0 36.3 - 45.3 % [facility] O2 Sat, Art POC (Calc) 99 % [facility] Total Hb, POC 13.4 11.9 - 15.5 g/dL [facility] Blood 07/17/2022 9:16 AM ROUGHENER 07/17/2022 9:16 AM ROUGHENER us Zachary Giron MD LAB POCT ORDERABLES - DEV ICE Final Result [facility] Department [place] [address] * (ABNORMAL) POCT Activated clotting time, low range (07/17/2022 9:08 AM ROUGHENER) ACT 339(H) 123 - 168 sec [facility] Blood 07/17/2022 9:08 AM ROUGHENER 07/17/2022 9:08 AM ROUGHENER us Zachary Giron MD LAB POCT ORDERABLES - DEV ICE Final Result [facility] Department [place] [address] * COVID-19 Coronavirus RNA Nasopharyngeal (07/17/2022 6:17 AM ROUGHENER) COVID-19 RNA Negative Negative [facility] Nasopharyngeal 07/17/2022 6: 17 AM ROUGHENER 07/17/2022 6:34 AM ROUGHENER Narrative [facility] - 07/17/2022 7:15 AM ROUGHENER Is the patient experiencing any symptoms consistent with COVID (eg. Fever, cough, shortness of breath)?->No What is the reason for testing?->Bed placement or semi-private room (Rapid) ??Interpretive data: Synonyms for this test include: PCR and NAAT . ??This test is performed using the Snapfish Xpert Xpress plus assay. This is a real-time RT-PCR test intended for the qualitative detection of nucleic acid from the SARS-CoV-2. This assay has been reviewed by the FDA for Emergency Use Authorization (EUA). The performance characteristics have been verified by the performing laboratory. Results must be considered in the clinical context and a negative result does not rule out infection. Interpretive data last revised February 05, 2022. ??Interpretive data: Synonyms for this test include: PCR and NAAT . ??This test is performed using the Snapfish Xpert Xpress plus assay. This is a real-time RT-PCR test intended for the qualitative detection of nucleic acid from the SARS-CoV-2. This assay has been reviewed by the FDA for Emergency Use Authorization (EUA). The performance characteristics have been verified by the performing laboratory. Results must be considered in the clinical context and a negative result does not rule out infection. Interpretive data last revised February 05, 2022. us Zachary Giron MD LAB MICROBIOLOGY - GENERA L ORDERABLES Final Result [facility] Department [place] [address] documented in this encounter Visit Diagnoses Diagnosis Occlusion and stenosis of right carotid artery- Primary Right carotid artery occlusion Hypertension Unspecified essential hypertension documented in this encounter Admitting Diagnoses Diagnosis Occlusion and stenosis of right carotid artery Right carotid artery occlusion documented in this encounter Administered Medications Inactive Administered Medications - up to 3 most recent administrations Medication Order MAR Action Action Date Dose Rate Site acetaminophen (TYLENOL) tablet 1,000 mg 1,000 mg, oral, Every 6 hours PRN, 1st line for pain, Starting on Anuradha 07/17/22 at 1146, Phase I & Post-op Floor Given 07/18/2022 3:02 AM ROUGHENER 1,000 mg Given 07/17/2022 8:57 PM ROUGHENER 1,000 mg acetaminophen (TYLENOL) tablet 500 mg 500 mg, oral, Once, On Anuradha 07/17/22 at 1200, For 1 dose, Phase I, When able to tolerate PO., Indications: PainIndications:Pain Given 07/17/2022 11:50 AM ROUGHENER 500 mg allopurinoL (ZYLOPRIM) tablet 100 mg 100 mg, oral, Nightly, First dose on Anuradha 07/17/22 at 2100, Indications: prevention of acute gout attackIndications:prevention of acute gout attack Given 07/17/2022 8:58 PM ROUGHENER 100 mg aspirin tablet 325 mg 325 mg, oral, Daily, First dose on Anuradha 07/17/22 at 1630 Given 07/18/2022 8:05 AM ROUGHENER 325 mg Given 07/17/2022 4:35 PM ROUGHENER 325 mg atorvastatin (LIPITOR) tablet 80 mg 80 mg, oral, Daily, First dose on Anuradha 07/17/22 at 1630 Given 07/18/2022 8:05 AM ROUGHENER 80 mg Given 07/17/2022 4:35 PM ROUGHENER 80 mg buPROPion XL (WELLBUTRIN XL) 24 hour tablet 150 mg 150 mg, oral, Daily, First dose on Anuradha 07/17/22 at 1630, Do not crush, chew, cut, dissolve, open or otherwise manipulate tablet/capsule. Given 07/18/2022 8:05 AM ROUGHENER 150 mg Given 07/17/2022 4:35 PM ROUGHENER 150 mg enoxaparin (LOVENOX) syringe 40 mg 40 mg, subcutaneous, Daily (for enoxaparin), First dose on Anuradha 07/17/22 at 2100, Indications: Deep Vein Thrombosis PreventionIndications:Deep Vein Thrombosis Prevention Given 07/17/2022 8:58 PM ROUGHENER 40 mg Left Lower Abdomen HYDROmorphone (DILAUDID) injection 0.2 mg 0.2 mg, intravenous, Administer over 2 Minutes, Every 10 min PRN, 1st line for pain, Starting on Anuradha 07/17/22 at 1121, Phase I, Switch to 2nd line analgesic order if pain is uncontrolled or increasing after 2 doses. Notify Anesthesiologist if total PACU dose reaches 2 mg and pain score 5/10 or more., Indications: PainIndications:Pain Given 07/17/2022 12:14 PM ROUGHENER 0.2 mg Given 07/17/2022 12:00 PM ROUGHENER 0.2 mg Lactated Ringer's (LR) infusion 30 mL/hr, intravenous, Continuous, Starting on Anuradha 07/17/22 at 0645 New Bag 07/17/2022 4:22 PM ROUGHENER 30 mL/hr 30 mL/hr New Bag 07/17/2022 7:31 AM ROUGHENER phenylephrine in 0.9% sodium chloride (JEAN-SYNEPHRINE) 25,000 mcg/250 mL (100 mcg/mL) infusion (premix) solution 0-0.5 mcg/kg/min ? 83.4 kg (0-25.02 mL/hr), 100 mcg/mL, intravenous, Titrated, Starting on Anuradha 07/17/22 at 1215, Until Thu07/18/22 at 0707, Phase I, Indications: hypotension, Initial rate: 0.5 mcg/kg/min / 0.1 mcg/kg/min, Titrate: Up/Down, Titrate by: 0.1 mcg/kg/min, Every: Other (comment) / 5 minutes, Goal: MAP, MAP Goal: 65-75 mmHg / 70-80, Protect from light, RoutineIndications:hypot ension Rate/Dose Change 07/18/2022 2:00 AM ROUGHENER 0.1 mcg/kg/min 5 mL/hr Rate/Dose Change 07/17/2022 6:00 PM ROUGHENER 0.2 mcg/kg/min 10. 01 mL/hr Rate/Dose Verify 07/17/2022 4:00 PM ROUGHENER 0.3 mcg/kg/min 15. 01 mL/hr sodium chloride 0.9% solution 1,000 mL 1,000 mL, intra-catheter, Continuous, Starting on Anuradha 07/17/22 at 1630, With 300 mmHg to maintain patency. New Bag 07/17/2022 4:24 PM ROUGHENER 1,000 mL traMADoL (ULTRAM) tablet 50 mg 50 mg, oral, Every 6 hours PRN, 1st line for pain, Starting on Anuradha 07/17/22 at 1220, Phase I & Post-op Floor, Indications: PainIndications:Pain Given 07/18/2022 7:15 AM ROUGHENER 50 mg Given 07/17/2022 11:29 PM ROUGHENER 50 mg Given 07/17/2022 4:35 PM ROUGHENER 50 mg documented in this encounter Active and Recently Administered Medications Times are shown in ROUGHENER. Scheduled Medication Order 07/16/2022 07/17/2022 07/18/2022 acetaminophen (TYLENOL) tablet 500 mg (COMPLETED) 500 mg, oral, Once, On Anuradha 07/17/22 at 1200, For 1 dose, Phase I, When able to tolerate PO., Indications: Pain 1150 (Given - Provider: Tejal Myers RN) allopurinoL (ZYLOPRIM) tablet 100 mg 100 mg, oral, Nightly, First dose on Anuradha 07/17/22 at 2100, Indications: prevention of acute gout attack 2057 (Given - Provider: Rossy Chavez RN) amLODIPine (NORVASC) tablet 10 mg 10 mg, oral, Daily, First dose on Anuradha 07/17/22 at 1630 1623 (Not Given - Provider: Shira Zuleta RN - Reason: Patient/family refused) 0901 (Not Given - Provider: Shira Zuleta RN - Reason: Patient/family refused) aspirin tablet 325 mg 325 mg, oral, Daily, First dose on Anuradha 07/17/22 at 1630 1635 (Given - Provider: Shira Zuleta RN) 0805 (Given - Provider: Shira Zuleta RN) atorvastatin (LIPITOR) tablet 80 mg 80 mg, oral, Daily, First dose on Anuradha 07/17/22 at 1630 1635 (Given - Provider: Shira Zuleta RN) 0805 (Given - Provider: Shira Zuleta RN) buPROPion XL (WELLBUTRIN XL) 24 hour tablet 150 mg 150 mg, oral, Daily, First dose on Anuradha 07/17/22 at 1630, Do not crush, chew, cut, dissolve, open or otherwise manipulate tablet/capsule. 1635 (Given - Provider: Shira Zuleta RN) 0805 (Given - Provider: Shira Zuleta RN) carvediloL (COREG) tablet 25 mg 25 mg, oral, 2 times daily, First dose on Anuradha 07/17/22 at 2100 2126 (Not Given - Provider: Rossy Chavez RN - Reason: Order parameters not met) 0901 (Not Given - Provider: Shira Zuleta RN - Reason: Patient/family refused) enoxaparin (LOVENOX) syringe 40 mg 40 mg, subcutaneous, Daily (for enoxaparin), First dose on Anuradha 07/17/22 at 2100, Indications: Deep Vein Thrombosis Prevention 2057 (Given - Provider: Rossy Chavez RN) lisinopriL (PRINIVIL,ZESTRIL) tablet 10 mg 10 mg, oral, Daily, First dose on Anuradha 07/17/22 at 1630 1623 (Not Given - Provider: Shira Zuleta RN - Reason: Patient/family refused) 0901 (Not Given - Provider: Shira Zuleta RN - Reason: Patient/family refused) sodium chloride 0.9% flush 0.5-20 mL 0.5-20 mL, intra-catheter, Every 8 hours scheduled, First dose on Anuradha 07/17/22 at 1630, Flush volume based on line type and size. 162 (Not Given - Provider: Shira Zuleta RN - Reason: IV Infusing)2118 (Not Given - Provider: Rossy Chavez RN - Reason: Other) 0513 (Not Given - Provider: Rossy Chavez RN - Reason: Other)1400 (Hold - Provider: Shira Zuleta RN - Reason: IV Infusing) vancomycin 1500 mg/515 mL in sodium chloride 0.9% (premix) 1,500 mg (COMPLETED) 1,500 mg, intravenous, Administer over 90 Minutes, Once, On Anuradha 07/17/22 at 0645, For 1 dose, Pre-Op, Administer within 120 minutes of incision., Indications: Prophylaxis, Surgical 0700 (Given - Provider: Gasper Quijano MD) Continuous Medication Order 07/16/2022 07/17/2022 07/18/2022 Lactated Ringer's (LR) infusion (CANCELED) 30 mL/hr, intravenous, Continuous, Starting on Anuradha 07/17/22 at 0645 0731 (New Bag - Provider: Gasper Quijano MD)1041 (Anesthesia Volume Adjustment - Provider: Gasper Quijano MD)1621 (Continued from OR - Provider: Shira Zuleta RN)1622 (New Bag - Provider: Shira Zuleta RN) 0723 (Stopped - Provider: Shira Zuleta RN) phenylephrine in 0.9% sodium chloride (JEAN-SYNEPHRINE) 25,000 mcg/250 mL (100 mcg/mL) infusion (premix) solution (CANCELED) 0-0.5 mcg/kg/min ? 83.4 kg (0-25.02 mL/hr), 100 mcg/mL, intravenous, Titrated, Starting on Anuradha 07/17/22 at 1215, Until Thu07/18/22 at 0707, Phase I, Indications: hypotension, Initial rate: 0.5 mcg/kg/min / 0.1 mcg/kg/min, Titrate: Up/Down, Titrate by: 0.1 mcg/kg/min, Every: Other (comment) / 5 minutes, Goal: MAP, MAP Goal: 65-75 mmHg / 70-80, Protect from light, Routine 1141 (New Bag - Provider: Tejal Myers RN)1149 (Rate/Dose Change - Provider: Tejal Myers RN)1152 (Rate/Dose Change - Provider: Tejal Myers, SENG)1209 (Rate/Dose Change - Provider: Tejal Myers RN)1226 (Rate/Dose Change - Provider: Tejal Myers RN)1600 (Rate/Dose Verify - Provider: Shira Zuleta RN)1649 (Not Given - Provider: Shira Zuleta RN - Reason: Other - Comment: Already running from OR)1800 (Rate/Dose Change - Provider: Shira Zuleta RN - Comment: Chavo Kapoor RN) 0200 (Rate/Dose Change - Provider: Rossy Chavez RN)0500 (Stopped - Provider: Rossy Chavez RN) sodium chloride 0.9% solution 1,000 mL (CANCELED) 1,000 mL, intra-catheter, Continuous, Starting on Anuradha 07/17/22 at 1630, With 300 mmHg to maintain patency. 1624 (New Bag - Provider: Shira Zuleta RN) 0723 (Stopped - Provider: Shira Zuleta RN) PRN Medication Order 07/16/2022 07/17/2022 07/18/2022 acetaminophen (TYLENOL) tablet 1,000 mg 1,000 mg, oral, Every 6 hours PRN, 1st line for pain, Starting on Anuradha 07/17/22 at 1146, Phase I & Post-op Floor 2057 (Given - Provider: Rossy Chavez RN) 0302 (Given - Provider: Rossy Chavez RN) Carrier Fluids for Secondary Infusion - 0.9% Sodium Chloride 30 mL, intravenous, As needed, For priming tubing and/or flushing, Starting on Anuradha 07/17/22 at 1545, 0-250 ml/hr to flush line after IV infusions when no maintenance IV ordered. Infuse 30mL at the same rate as the secondary infusion. Run as primary IV, not intended for KVO. heparin in 0.9% sodium chloride 2,000 unit/1,000 mL (2 unit/mL) infusion (premix) (CANCELED) As needed, Starting on Anuradha 07/17/22 at 0849, Intra-Op 0849 (Given - Provider: Zachary Giron MD - Comment: on field for use PRN throughout procedure to flush) HYDROmorphone (DILAUDID) injection 0.2 mg (CANCELED) 0.2 mg, intravenous, Administer over 2 Minutes, Every 10 min PRN, 1st line for pain, Starting on Anuradha 07/17/22 at 1121, Phase I, Switch to 2nd line analgesic order if pain is uncontrolled or increasing after 2 doses. Notify Anesthesiologist if total PACU dose reaches 2 mg and pain score 5/10 or more., Indications: Pain 1200 (Given - Provider: Tejal Myers RN)1214 (Given - Provider: Tejal Myers RN) sodium chloride 0.9% flush 0.5-20 mL 0.5-20 mL, intra-catheter, As needed, line care, Starting on Anuradha 07/17/22 at 1545, Flush volume based on line type and size. Flush before and after each use. sodium chloride 0.9% irrigation (CANCELED) As needed, Starting on Anuradha 07/17/22 at 0850, Intra-Op 0850 (Given - Provider: Zachary Giron MD - Comment: on field for use PRN throughout case only) sterile water irrigation (CANCELED) As needed, Starting on Anuradha 07/17/22 at 0850, Intra-Op 0850 (Given - Provider: ST Pooja - Comment: to clean instruments only) traMADoL (ULTRAM) tablet 50 mg 50 mg, oral, Every 6 hours PRN, 1st line for pain, Starting on Anuradha 07/17/22 at 1220, Phase I & Post-op Floor, Indications: Pain 1635 (Given - Provider: Shira Zuleta RN)2329 (Given - Provider: Rossy Chavez RN) 0715 (Given - Provider: Rossy Chavez RN) documented in this encounter Orders Medications Ordered That Chris ht Not Have Been Administered Count Last Ordered Date First Ordered Date amLODIPine (NORVASC) tablet 10 mg 1 022 Carrier Fluids for Secondary Infusion - 0.9% Sodium Chloride 2 07/17/2022 carvediloL (COREG) tablet 25 mg 1 2 diphenhydrAMINE (BENADRYL) i njection 12.5 mg 1 07/17/2022 fentaNYL (SUBLIMAZE) preserv ative free injection 50 mcg 1 07/17/2022 haloperidol (HALDOL) injection 1 mg 1 07/17 heparin in 0.9% sodium chlor izabella 2,000 unit/1,000 mL (2 unit/mL) infusion (premix) 1 07/17/2022 hydrALAZINE (APRESOLINE) injection 5 mg 1 1 09/16/2021 HYDROmorphone (DILAUDID) injection 0.4 mg 1 07/17/2022 labetaloL (NORMODYNE,TRANDAT E) injection 5 mg 1 07/17/2022 lisinopriL (PRINIVIL,ZESTRIL) tablet 10 mg 1 07/17/2022 meperidine (DEMEROL) preserv ative free injection 12.5 mg 1 07/17/2022 naloxone (NARCAN) 0.4 mg/mL injection 0.04-0.4 mg 1 07/17/2022 oxyCODONE (ROXICODONE) tablet 5 mg 1 2021 prochlorperazine (COMPAZINE) injection 10 mg 1 07/17/2022 sodium chloride 0.9% flush 0.5-20 mL 3 07/08 sodium chloride 0.9% irrigation 1 sterile water irrigation 1 07/17/2022 vancomycin 1500 mg/515 mL in sodium chloride 0.9% (premix) 1,500 mg 1 07/17/2022 Nursing Count Last Ordered Date First Orde red Date DISCHARGE ACTIVITY 3 07/18/2022 DISCHARGE DRESSING 1 07/18/2022 DISCHARGE INSTRUCTIONS 1 07/18/2022 DISCONTINUE VASCULAR ACCESS (SPECIFY) 1 07/2022 FOLLOW UP WITH ESTABLISHED PROVIDER 2 07/18 Admission Count Last Ordered Date First Orde red Date ADMIT TO INPATIENT 1 07/17/2022 INITIATE OBSERVATION SERVICES 1 07/17/2022 Transfer Count Last Ordered Date First Orde red Date TRANSFER PATIENT TO NEW UNIT 1 07/17/2022 Discharge Count Last Ordered Date First Orde red Date DISCHARGE PATIENT 1 07/18/2022 ADT Patient Update Count Last Ordered Date Firs t Ordered Date UPDATE LEVEL OF CARE/SERVICE 1 07/18/2022 documented in this encounter Care Teams Shade Maker Relationship Specialty Start Date End Date Perez Heller DO [address] [place] [address] PCP - General Family Medicine 07/01/22 Zachary Giron MD Surgeon Vascular Surgery 10/12/19 Azar Lara MD Surgeon Cardiothoracic Surgery 10/27/19 documented as of this encounter
--- OUTSIDE RECORDS SUMMARY | 2024-09-08 08:21 | XMS_ITS | Encounter Summary ---
Author Organization [facility] Healthcare Address [address] [place] [address] Care Team Providers Care Marketing Program Manager Name Role Phone Zachary Giron MD Unavailable Azar Lara MD Unavailable Perez Alexander DO Primary Care Provider Reason for Visit * Reason Comments Follow-up 6 mo Encounter Details Date Type Department Care Team (Late st Contact Info) Description 02/09/2024 3:30 PM CDT Office Visit [facility] Cardiology [address] [place] [id number] Yecenia Negron NP [address] [place] [address] Cerebrovascular accident (CVA), unspecified mechanism (HCC) (Primary Dx); Aortic valve insufficiency, etiology of cardiac valve disease unspecified; Labile hypertension; Mixed hyperlipidemia; Status post carotid surgery Social History Tobacco [...] on file Legal Sex 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 Gender Identity Not on file Sexual Orientation Not on file documented as of this encounter Last Filed Vital Signs Vital Sign Reading Time Taken Comments Blood Pressure 136/52 02/09/2024 3:34 PM CDT Pulse 62 02/09/2024 3:34 PM CDT Temperature - - Respiratory Rate - - Oxygen Saturation 99% 02/09/2024 3:34 PM CDT Inhaled Oxygen Concentration - - Weight 83.9 kg (185 lb) 02/09/2024 3:34 PM CDT Height 170.2 cm (5' 7 ) 02/09/2024 3:34 PM CDT Body Mass Index 28.98 02/09/2024 3:34 PM CDT documented in this encounter Progress Notes * Yecenia Negron NP - 02/09/2024 3:30 PM CDT Images from the original note were not included. [facility] [address] [place] [address] Date of Visit: 02/09/2024 Patient ID: Suma Saenz [id number] Chief Complaint Patient presents with Follow-up 6 mo Suma Saenz is a 78 y.o. female who is a former patient of Dr. Antoine with a history of stroke and vascular disease returning to the office for six-month follow-up. History of Present Illness: Suma Saenz is a 78 y.o. 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 07/04/1604/01 MRI no CVA. 04/02 Cerebral angiogram 04/03 new multiple small foci c/w tiny infarcts. Seeing Vasc at [facility]. Passed out after procdure with Dr. Steven [...] 02/18/[address] scan, repeat doppers at [facility]. Notes occ vision problems, occ dizziness improved [...] gets exceptionally tired. Still seeing Vascular at [facility] recommended ongoing observation and evaluation. 09/27/18 Off [...] EMS noted initial HR 40bpm went to [place], no clear issues, CT head negative. SBP>200mmHg,HR [...] biggest issue. She missed her last appointment. 02/09/2024 office follow-up with AMORTIZATION CLERK: She is here for routine follow-up and has no concerns. She denies chest pain, dyspnea, no bleeding problems. Records that I personally reviewed on the day of this visit include: (the interpretation is outlined in the HPI above) 07/27/[address] Antoine, 11/06/2023 echocardiogram report, 08/19/2023 lipid panel result, 08/17/2023 vascular surgery office note. I have also reviewed: allergies, current medications, past family history, past medical history, past social history, past surgical history and problem list. Medical History: Past Medical History: Diagnosis Date Anxiety Back [...] EXTRACAPSULAR W/ INTRAOCULAR LENS IMPLANTATION Bilateral 2018 Social History Tobacco Use Smoking Status Former Current packs/day: 0.00 Types: Cigarettes Quit date: 2004 Years since quittin.4 Smokeless Tobacco Current Tobacco Comments Occasional nicorete use Social History Tobacco Use Smoking status: Former Current packs/day: 0.00 Types: Cigarettes Quit date: 2004 Years since quittin.4 Smokeless tobacco: Current Tobacco comments: Occasional nicorete use Substance and Sexual Activity Drug use: Yes Frequency: 7.0 times per week Types: Marijuana Comment: edibles- nightly Sexual activity: Defer Alcohol Use: Not At Risk (07/03/2022) AUDIT-C Frequency of Alcohol Consumption: 4 or more times a week Average Number of Drinks: 1 or 2 Frequency of Binge Drinking: Never Family History Problem Relation Age of Onset Heart disease Mother Heart disease; /Family history of cardiac disorder - (Added by TW Conv) Stroke Father Stroke; Heart disease Father Family history of cardiac disorder - (Added by TW Conv) Anesthesia problems Neg Hx Malig Hypertension Neg Hx Malig Hyperthermia Neg Hx Pseudochol deficiency Neg Hx Review of Systems Constitutional: Negative for malaise/fatigue, weight gain and weight loss. Cardiovascular: Negative for chest pain, dyspnea on exertion, leg swelling, near-syncope, orthopnea, palpitations, paroxysmal nocturnal dyspnea and syncope. Respiratory: Negative for cough, shortness of breath and sleep disturbances due to breathing. Hematologic/Lymphatic: Negative for bleeding problem. Does not bruise/bleed easily. Musculoskeletal: Positive for joint pain (left shoulder). Vital Signs: BP 136/52 (BP Location: Left arm, Patient Position: Sitting) Pulse 62 Ht 170.2 cm (5' 7 ) Wt 83.9 kg (185 lb) SpO2 99% BMI 28.98 kg/m?? Physical Exam Constitutional: General: She is not in acute distress. Appearance: She is well-developed. HENT: Head: Normocephalic and atraumatic. Eyes: General: No scleral icterus. Conjunctiva/sclera: Conjunctivae normal. Neck: Vascular: No JVD. Trachea: No tracheal deviation. Cardiovascular: Rate and Rhythm: Normal rate and regular rhythm. Heart sounds: Normal heart sounds. No murmur heard. Pulmonary: Effort: Pulmonary effort is normal. No respiratory distress. Breath sounds: Normal breath sounds. Skin: General: Skin is warm and dry. Neurological: Mental Status: She is alert and oriented to person, place, and time. Psychiatric: Mood and Affect: Mood normal. Behavior: Behavior normal. Allergies Allergen Reactions Naproxen Rash Nsaids (Non-Steroidal Anti-Inflammatory Drug) Hives Penicillins Rash Sulfa (Sulfonamide Antibiotics) Rash Current Outpatient Medications: acetaminophen 500 mg capsule, Take 2 capsules (1,000 mg total) by mouth every 6 (six) hours as needed for pain, Disp: 30 tablet, Rfl: allopurinoL (ZYLOPRIM) 100 mg tablet, Take 1 tablet (100 mg total) by mouth nightly, Disp: , Rfl: amLODIPine (NORVASC) 10 mg tablet, Take 1 tablet (10 mg total) by mouth daily (Patient taking differently: Take 1 tablet (10 mg total) by mouth every morning), Disp: 30 tablet, Rfl: 11 aspirin 325 mg tablet, take 1 tablet by oral route every day, Disp: 0, Rfl: 0 atorvastatin (LIPITOR) 80 mg tablet, take 1 tablet by oral route every day, Disp: 0, Rfl: 0 buPROPion XL (WELLBUTRIN XL) 150 mg 24 hr tablet, take 1 tablet by oral route 2 times every day, Disp: 0, Rfl: 0 calcium carbonate-vitamin D3 1,500 mg (600mg elemental) -800 unit per tablet, Take 1 tablet by mouth daily, Disp: , Rfl: carvediloL (COREG) 25 mg tablet, Take 1 tablet (25 mg total) by mouth 2 (two) times a day (Patient taking differently: Take 1 tablet (25 mg total) by mouth 2 (two) times a day), Disp: 60 tablet, Rfl:11 cetirizine (ZyrTEC) 10 mg tablet, take 1 tablet by oral route every day, Disp: 0, Rfl: 0 d-mannose powder, Take 1 tablet by mouth 2 (two) times a day, Disp: , Rfl: estradioL (ESTRACE) 0.01 % (0.1 mg/gram) vaginal cream, Insert 1 g into the vagina 2 (two) times a week Thursday and thursday, Disp: , Rfl: hydroCHLOROthiazide (HYDRODIURIL) 25 mg tablet, Take 1 tablet (25 mg total) by mouth every morning,Disp: , Rfl: Linzess 72 mcg capsule, , Disp: , Rfl: lisinopriL (PRINIVIL,ZESTRIL) 10 mg tablet, Take 1 tablet (10 mg total) by mouth daily (Patient taking differently: Take 1 tablet (10 mg total) by mouth nightly), Disp: 30 tablet, Rfl: 11 medical cannabis each, Take 1 Dose by mouth nightly, Disp: , Rfl: mesalamine (DELZICOL) 400 mg capsule (with del rel tablets), , Disp: , Rfl: montelukast (SINGULAIR) 10 mg tablet, take 1 tablet by oral route every day in the evening, Disp: 0, Rfl: 0 nitrofurantoin monohydrate (MACROBID) 100 mg capsule, , Disp: , Rfl: Lab Results Component Value Date POTASSIUM 3.8 07/17/2022 BUNSER 16 07/17/2022 CREATININE 0.69 07/17/2022 CHOL 114 07/17/2022 TRIG 50 07/17/2022 LDL 50 04/02/2016 LDLCALC 43 07/17/2022 HDL 61 07/17/2022 Lab Results Component Value Date WBC 6.8 07/17/2022 HGB 11.7 (L) 07/17/2022 HCT 34.0 (L) 07/17/2022 MCV 95.2 07/17/2022 No results found for this or any previous visit (from the past 4 hour(s)). Lab Results Component Value Date POCCHOL 120 07/27/2023 POCHDL 50 07/27/2023 POCTRIG 338 07/27/2023 POCLDL 2.4 07/27/2023 POCNONHDL 70 07/27/2023 POCCHLPL 120 07/27/2023 Assessment: Diagnoses and all orders for this visit: Cerebrovascular accident (CVA), unspecified mechanism (HCC) (Primary) Aortic valve insufficiency, etiology of cardiac valve disease unspecified Labile hypertension Mixed hyperlipidemia Status post carotid surgery Plan/Recommendations: She has a history of a previous right carotid endarterectomy by Dr. Giron on July. She also has a history of previous ascending aorta to right axillary and ascending aorta to right common and left common carotid artery bypasses by Bonnie Giron and Jane in 2020. She continues to follow with vascular surgery on an annual basis. Lipids are controlled. Continue aspirin and atorvastatin. Blood pressure reading is fair, acceptable for her age. Continue lisinopril, carvedilol, hydrochlorothiazide, amlodipine. Has moderate aortic valve regurgitation which appears stable and asymptomatic. She has a history of stroke. PFO seen on echo earlier this year with a negative bubble study subsequently. No indication for closure of the PFO. We will transition ongoing care from Dr. Antoine to 1 of our other cardiologists routine follow-up every 6 months at this point. 02/09/2024 JOHANNA Strickland- Nurse Practitioner with [facility] This note is dictated and transcribed using [employer] Software. Material Damage Adjuster variancesmay occur. Despite proofreading, typographical errors may occur. documented in this encounter Plan of Treatment Not on file documented as of this encounter Visit Diagnoses Diagnosis Cerebrovascular accident (CVA), unspecified mechanism (HCC)- Primary Aortic valve insufficiency, etiology of cardiac valve disease unspecified Labile hypertension Mixed hyperlipidemia Status post carotid surgery Other postprocedural status documented in this encounter Discontinued Medications Medication Sig Discontinue Reason Start Date End Da te biotin 10,000 mcg capsuleIndications:Bioti n Deficiency Take 1 capsule (10,000 mcg total) by mouth 2 (two) times a day Therapy completed 02/09/2024 documented as of this encounter Historical Medications * This list may reflect changes made after this encounter. calcium carbonate-vitamin D3 1,500 mg (600mg elemental) -800 unit per tablet Take 1 tablet by mouth daily added in this encounter Care Teams Marketing Program Manager Relationship Specialty Start Date End Date Perez Alexander DO [address] [place] [address] PCP - General Family Medicine 07/01/22 Zachary Giron MD Surgeon Vascular Surgery 10/12/19 Azar Lara MD Surgeon Cardiothoracic Surgery 10/27/19 documented as of this encounter
--- OUTSIDE RECORDS SUMMARY | 2024-09-08 08:22 | XMS_ITS | Encounter Summary ---
Author Organization [facility] Address [address] [place] [address] Phone Care Team Providers Care Hand Mexican Food Maker Name Role Phone Zachary Giron MD Unavailable [phone] Azar Lara MD Unavailable Abbe Nails MD Primary Care Provider [phone] Encounter Details Date Type Department Care Team (Late st Contact Info) Description 04/07/2022 Telephone [facility] Scheduling [address] [place] [address] Wade Farfan CMA Social History Tobacco Use Types Packs/Day Years Used Date Smoking Tobacco: Former Cigarettes Smokeless Tobacco: Never Alcohol Use Standard Drinks/Week Comments Yes 0 (1 standard drink = 0.6 oz pur e alcohol) Comments Unknown Sex and Gender Information Value Date Recorded Sex Assigned at Not on file 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 documented in this encounter Plan of Treatment Not on file documented as of this encounter Visit Diagnoses Not on filedocumented in this encounter Care Teams Hand Mexican Food Maker Relationship Specialty Start Date End Date Abbe Nails MD [address] [place] [address] PCP - General 11/03/19 06/30/22 Zachary Giron MD Surgeon Vascular Surgery 10/12/19 Azar Lara MD Surgeon Cardiothoracic Surgery 10/27/19 documented as of this encounter
--- OUTSIDE RECORDS SUMMARY | 2024-09-08 08:22 | XMS_ITS | Encounter Summary ---
Author Organization [facility] Address [address] [facility] [address] [place] [address] Phone Care Team Providers Care Bookmobile Clerk Name Role Phone Zachary Giron MD Unavailable [phone] Azar Lara MD Unavailable Abbe Nails MD Primary Care Provider [phone] Reason for Referral * Consultation (Emergency) - Closed Specialty Diagnoses / Procedures Referred By Contac t Referred To Contact Otolaryngology Diagnoses Carotid artery disease (HCC) Status post carotid surgery Zachary Giron MD [address] [facility] [id number] [place] [address] Phone: tel: fax: [facility] (All Locations) Referral ID Status Reason Start Date Expiration Date V isits Requested Visits Authorized [id number] Closed Specialty Services Required 06/17/2022 07/17/2023 10 10 Question Answer Please select the performing region: [facility] (All Locations) [[id number]] # of visits: 10 Comments Please evaluate vocal cords prior to right carotid endardectomy Encounter Details Date Type Department Care Team (Late st Contact Info) Description 06/17/2022 Orders Only [facility] Surgery [address] [facility] 8th [place] [address] [place] [address] Zachary Giron MD [id number] [place] [address] Carotid artery disease (CMS/HCC) (HCC) (Primary Dx); Status post carotid surgery Social History Tobacco Use Types Packs/Day Years Used Date Smoking Tobacco: Former Cigarettes Smokeless Tobacco: Never Alcohol Use Standard Drinks/Week Comments Yes 0 (1 standard drink = 0.6 oz pur e alcohol) Comments Unknown Sex and Gender Information Value Date Recorded Sex Assigned at Not on file 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 [employer] Gender Identity Not on file Sexual Orientation Not on file documented as of this encounter Plan of Treatment Scheduled Referrals Name Type Priority Associated Diagnoses Order Schedule Ambulatory referral to ENT Outpatient Referral STAT Carotid artery disease (CMS/HCC) (HCC) Status post carotid surgery Expected: 07/01/2022 (Approximate), Expires: 06/17/2023 documented as of this encounter Visit Diagnoses Diagnosis Carotid artery disease (HCC)- Primary Unspecified disorders of arteries and arterioles Status post carotid surgery Other postprocedural status documented in this encounter Care Teams Bookmobile Clerk Relationship Specialty Start Date End Date Abbe Nails MD [address] [place] [address] PCP - General 11/03/19 06/30/22 Zachary Giron MD Surgeon Vascular Surgery 10/12/19 Azar Lara MD Surgeon Cardiothoracic Surgery 10/27/19 documented as of this encounter
--- OUTSIDE RECORDS SUMMARY | 2024-09-08 08:22 | XMS_ITS | Encounter Summary ---
Author Organization [facility] Address [address] [place] [address] Phone Care Team Providers Care Product Design Specialist Name Role Phone Nanci Trujillo MD Unavailable [phone] Azar Lara MD Unavailable Abbe Nails MD Primary Care Provider [phone] Reason for Visit * Diagnostic Imaging (Routine) - Closed Specialty Diagnoses / Procedures Referred By Contac t Referred To Contact Vascular Surgery Diagnoses Encounter for surgical aftercare following surgery on the circulatory system Procedures US Arterial Doppler Upper Extremity Bilateral Nanci Trujillo MD Phone: tel: fax: Referral ID Status Reason Start Date Expiration Date Visits Re quested Visits Authorized [id number] Closed 10/27/2019 05/07/2021 1 1 Encounter Details Date Type Department Care Team (Latest Contact Info) Description 04/09/2020 10:15 AM CDT Ancillary Procedure [facility] [address] [place] [address] Advanced Medicine 8th [place] [address] [place] [address] Encounter for surgical aftercare following [...] file 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 Gender Identity Not on file Sexual Orientation Not on file documented as of this encounter Plan of Treatment Not on file documented as of this encounter Procedures Procedure Name Priority Date/Time Associated Diagnosis Comments US ARTERIAL DOPPLER UPPER EXTREMITY BILATERAL Schedule Routine, Read Routine (OP Routine) 04/09/2020 11:05 AM CDT Encounter for surgical aftercare following surgery on the circulatory system US CAROTIDS DUPLEX BILATERAL Schedule Routine, Read Routine (OP Routine) 04/09/2020 11:05 AM CDT Encounter for surgical aftercare following surgery on the circulatory system documented in this encounter Results * US Arterial Doppler Upper Extremity Bilateral (04/09/2020 11:05 AM CDT) Anatomical Region Laterality Modality Vascular Bilateral Ultrasound 04/09/2020 10:4 0 AM CDT Narrative 04/10/2020 11:48 AM CDT [facility] - Department of Vascular Surgery, Vascular Laboratory [address] [place] [address] Upper Extremity Arterial Doppler Ultrasound Report Patient Name: SUMA SAENZ K : 1945 Study Date: 04/09/2020 10:40:00 AM Gender: F Tech: Angie Crain [facility] Location: [facility] Ref.Provider: NANCI TRUJILLO Quality: Adequate Order Provider: NANCI TRUJILLO Procedures: Vascular Report: Bilateral upper extremity arterial Doppler exam. Indications: Encounter for Surgical Aftercare Following Surgery on the Circulatory System; Mini-Sternotomy, ascending aorta to right ax artery bypass with graft; ascending aorta to right common carotid artery and left common carotid artery Dx: Encounter for surgical aftercare following surgery on the circulatory system [Z48.812 (ICD-10-CM)]. Measurements: Right - ?Left - ? Measurement ?Value ?Units ?Measurement ?Value ?Units ? Rt Brachial Pressure ? 108 ?mmHg ? Lt Brachial Pressure ? 135 ?mmHg ? Rt Radial Pressure ? 111 ?mmHg ? Lt Radial Pressure ? 146 ?mmHg ? Rt Ulnar Pressure ?108 ?mmHg ? Lt Ulnar Pressure ?145 ?mmHg ? Rt Radial A/Arm Index ?0.82 ?Lt Radial A/Arm Index ?1.08 ? Rt Ulnar A/Arm Index ? 0.8 ? Lt Ulnar A/Arm Index ? 1.07 ? Rt 2nd Digit Pressure ?103 ?mmHg ? Lt 2nd Digit Pressure ?128 ?mmHg ? Rt Digit 2/Arm Index ? 0.76 ?Lt Digit 2/Arm Index ? 0.95 ? - Findings: Performing Race Board Attendant: Angie Crain RVT. Right Arm All Levels: The right axillary, brachial, radial and ulnar artery waveforms are monophasic(with sharp upstroke). Left Arm All Levels: The left axillary, brachial, radial and ulnar artery waveforms are multiphasic. Digits: Normal right digit pressure and waveform. Normal left digit pressure and waveform. Conclusions: 1. Right Forearm/Arm Index is consistent with moderate peripheral arterial disease - claudication. For reference, KIERA 0.5 -0.89 is consistent with claudication. 2. Left upper extremity arterial Doppler reveals multiphasic waveforms and a normal forearm arm index on the left. No evidence of significant left upper extremity arterial occlusive disease. 3. Bilateral Digit Arm Indices are normal, > or = 0.6. 4. There is evidence of right upper extremity arterial insufficiency proximal to the level of axillary artery. History: 10/21/2019 s/p bypass from the aorta to the right axillary artery as well as a bifurcated bypass from the ascending aorta to the right common carotid artery and the left common carotid artery. Previous Studies: No previous studies for comparison. Disclaimer: The signing physician has reviewed all images pertaining to this test. These images and this report will be retained in the patient chart by the Vascular Laboratory for the legally required time period. This chart constitutes the legal record of any testing performed. Electronically Signed By: Nanci Trujillo MD FACS 2020-04-10 11:48:05 CDT CC: CC: Procedure Note Nanci Trujillo MD - 04/10/2020 [facility] - Department of Vascular Surgery,Vascular Laboratory [address] [place] [address] Upper Extremity Arterial Doppler Ultrasound Report Patient Name: SUMA SAENZ KPatient ID: [id number] : [id number] Date: 04/09/2020 10:40:00 AM Gender: FAccession #: [id number] Tech: Angie Crain RVTLocation: [facility] Ref.Provider: NANCI TRUJILLOQuality: Adequate Order Provider: NANCI TRUJILLO Procedures: Vascular Report: Bilateral upper extremity arterial Doppler exam. Indications: Encounter for Surgical Aftercare Following Surgery on the CirculatorySystem; Mini-Sternotomy, ascending aorta to right ax artery bypass with graft;ascending aorta to right common carotid artery and left common carotid artery Dx: Encounter for surgical aftercare following surgery on the circulatorysystem [Z48.812 (ICD-10-CM)]. Measurements: Right - Left - Measurement Value Units Measurement ValueUnits Rt Brachial Pressure 108 mmHg Lt Brachial Pressure 135mmHg Rt Radial Pressure 111 mmHg Lt Radial Pressure 146mmHg Rt Ulnar Pressure 108 mmHg Lt Ulnar Pressure 145mmHg Rt Radial A/Arm Index 0.82 Lt Radial A/Arm Index 1.08 Rt Ulnar A/Arm Index 0.8 Lt Ulnar A/Arm Index 1.07 Rt 2nd Digit Pressure 103 mmHg Lt 2nd Digit Pressure 128mmHg Rt Digit 2/Arm Index 0.76 Lt Digit 2/Arm Index 0.95 - Findings: Performing Race Board Attendant: Angie Crain RVT. Right Arm All Levels: The right axillary, brachial, radial and ulnar artery waveforms aremonophasic(with sharp upstroke). Left Arm All Levels: The left axillary, brachial, radial and ulnar artery waveforms aremultiphasic. Digits: Normal right digit pressure and waveform. Normal left digit pressure andwaveform. Conclusions: 1. Right Forearm/Arm Index is consistent with moderate peripheral arterialdisease - claudication. For reference, KIERA 0.5 -0.89 is consistent withclaudication. 2. Left upper extremity arterial Doppler reveals multiphasic waveforms abby normal forearm arm index on the left. No evidence of significant left upperextremity arterial occlusive disease. 3. Bilateral Digit Arm Indices are normal, > or = 0.6. 4. There is evidence of right upper extremity arterial insufficiencyproximal to the level of axillary artery. History: 10/21/2019 s/p bypass from the aorta to the right axillary artery as well as a bifurcated bypass from the ascending aorta to the right common carotid artery and the left common carotid artery. Previous Studies: No previous studies for comparison. Disclaimer: The signing physician has reviewed all images pertaining to this test.These images and this report will be retained in the patient chart by the VascularLaboratory for the legally required time period. This chart constitutes the legal record ofany testing performed. Electronically Signed By: Nanci Trujillo MD [facility] 2020-04-10 11:48:05 CDT CC: CC: us Nanci Trujillo MD IMG US PROCEDURES Final R esult * US Carotids Duplex Bilateral (04/09/2020 11:05 AM CDT) Anatomical Region Laterality Modality Vascular Bilateral Ultrasound 04/09/2020 10:0 9 AM CDT Narrative 04/10/2020 11:44 AM CDT [facility] - Department of Vascular Surgery, Vascular Laboratory [address] [place] [address] Carotid Duplex Ultrasound Report Patient Name: SUMA SAENZ K : 1945 (74y 3m) Study Date: 04/09/2020 10:09:54 AM Gender: F Tech: Location: [facility] Ref.Provider: NANCI TRUJILLO Quality: Adequate Order Provider: NANCI TRUJILLO Procedures: Carotid Report: Carotid duplex examination of the extracranial arteries was performed using 2D, color and spectral Doppler. Indications: Encounter for Surgical Aftercare Following Surgery on the Circulatory System; Mini-Sternotomy, ascending aorta to right ax artery bypass with graft; ascending aorta to right common carotid artery and left common carotid artery. Measurements: Right Carotid ? Left Carotid ? Measurement ?Value ?Units ? Measurement ?Value ?Units ? RT Prox CCA PSV ?103 ?cm/sec ?LT Prox CCA PSV ?132 ?cm/sec ? RT Prox CCA EDV ?12 ? cm/sec ?LT Prox CCA EDV ?13 ? cm/sec ? RT Distal CCA PSV ?98 ? cm/sec ?LT Distal CCA PSV ?89 ? cm/sec ? RT Distal CCA EDV ?13 ? cm/sec ?LT Distal CCA EDV ?10 ? cm/sec ? RT Prox ICA PSV ?220 ?cm/sec ?LT Prox ICA PSV ?124 ?cm/sec ? RT Prox ICA EDV ?37 ? cm/sec ?LT Prox ICA EDV ?10 ? cm/sec ? RT Mid ICA PSV ? 132 ?cm/sec ?LT Mid ICA PSV ? 92 ? cm/sec ? RT Mid ICA EDV ? 24 ? cm/sec ?LT Mid ICA EDV ? 16 ? cm/sec ? RT Distal ICA PSV ?88 ? cm/sec ?LT Distal ICA PSV ?68 ? cm/sec ? RT Distal ICA EDV ?16 ? cm/sec ?LT Distal ICA EDV ?14 ? cm/sec ? RT ECA PSV ? 284 ?cm/sec ?LT ECA PSV ? 343 ?cm/sec ? RT ICA/CCA ? 2.24 ? ratio ? LT ICA/CCA ? 1.40 ? ratio ? RT VERT PSV ?21 ? cm/sec ?LT VERT PSV ?53 ? cm/sec ? - Findings: Performing Race Board Attendant: Angie Crain RVT. Rt Common Carotid Artery: The plaque in the right CCA appears to be heterogeneous and smooth. Atherosclerotic changes of the right common carotid artery with no hemodynamically significant Doppler findings. Rt Internal Carotid Artery: The plaque in the right internal carotid artery appears to be calcified and irregular. Significant atherosclerotic changes of the right internal carotid artery with elevated peak systolic velocity and end diastolic velocity, as above. 50-69% stenosis. Rt External Carotid Artery: Patent right external carotid artery with evidence of atherosclerotic disease present. Rt Vertebral Artery: Bidirectional flow in the right vertebral artery maybe consistent with ipsilateral subclavian artery stenosis or occlusion. Lt Common Carotid Artery: The plaque in the left CCA appears to be calcified and irregular(at the distal common carotid artery). Elevated left proximal common carotid artery velocity as noted above with no evidence of significant atherosclerosis disease. Lt Internal Carotid Artery: The plaque in the left internal carotid artery appears to be calcified and irregular. Atherosclerotic changes of the left internal carotid artery without hemodynamically significant Doppler findings. <50% stenosis(closer to 50% stenosis per peak systolic velocity and per image) Unable to visualize a 0.31cm segment of the left proximal ICA due to calcific shadowing. Lt External Carotid Artery: The left external carotid artery is patent without evidence of atherosclerotic plaque. Lt Vertebral Artery: The left vertebral artery is patent with antegrade flow. Comments: The right axillary artery was imaged and waveform appears turbulent with a peak systolic velocity of 115cm/s. Conclusions: 1. The right internal carotid artery disease is consistent with a 50-69% stenosis. 2. The left internal carotid artery disease is consistent with a less than 50% stenosis(closer to 50% per peak systolic velocity). 3. Normal, antegrade flow is noted in the left vertebral artery. 4. Abnormal, bidirectional flow noted in the right vertebral artery consistent with ipsilateral subclavian artery stenosis or occlusion(previously documented). See surgical history. 5. Patent bilateral external carotid arteries with evidence of atherosclerotic plaque. 6. No evidence of hemodynamically significant stenosis in the common carotid artery bilaterally. History: 10/21/2019 s/p bypass from the aorta to the right axillary artery as well as a bifurcated bypass from the ascending aorta to the right common carotid artery and the left common carotid artery. Previous Studies: Previous carotid ultrasound on 04/12/2018 (less than 50% stenosis ICA/bidirectional right vertebral). Disclaimer: The signing physician has reviewed all images pertaining to this test. These images and this report will be retained in the patient chart by the Vascular Laboratory for the legally required time period. This chart constitutes the legal record of any testing performed. Electronically Signed By: Nanci Trujillo MD [facility] 2020-04-10 11:44:11 CDT CC: CC: Procedure Note Nanci Trujillo MD - 04/10/2020 [facility] - Department of Vascular Surgery,Vascular Laboratory [address] [place] [address] Carotid Duplex Ultrasound Report Patient Name: SUMA SAENZ KPatient ID: [id number] : 1945 (74y 3m)Study Date: 04/09/2020 10:09:54 AM Gender: FAccession #: [id number] Tech: MKLocation: [facility] Ref.Provider: NANCI TRUJILLOQuality: Adequate Order Provider: NANCI TRUJILLOAccount #: [id number] Procedures: Carotid Report: Carotid duplex examination of the extracranial arterieswas performed using 2D, color and spectral Doppler. Indications: Encounter for Surgical Aftercare Following Surgery on the CirculatorySystem; Mini-Sternotomy, ascending aorta to right ax artery bypass with graft;ascending aorta to right common carotid artery and left common carotid artery. Measurements: Right Carotid Left Carotid Measurement Value Units Measurement ValueUnits RT Prox CCA PSV 103 cm/sec LT Prox CCA PSV 132cm/sec RT Prox CCA EDV 12 cm/sec LT Prox CCA EDV 13cm/sec RT Distal CCA PSV 98 cm/sec LT Distal CCA PSV 89cm/sec RT Distal CCA EDV 13 cm/sec LT Distal CCA EDV 10cm/sec RT Prox ICA PSV 220 cm/sec LT Prox ICA PSV 124cm/sec RT Prox ICA EDV 37 cm/sec LT Prox ICA EDV 10cm/sec RT Mid ICA PSV 132 cm/sec LT Mid ICA PSV 92cm/sec RT Mid ICA EDV 24 cm/sec LT Mid ICA EDV 16cm/sec RT Distal ICA PSV 88 cm/sec LT Distal ICA PSV 68cm/sec RT Distal ICA EDV 16 cm/sec LT Distal ICA EDV 14cm/sec RT ECA PSV 284 cm/sec LT ECA PSV 343cm/sec RT ICA/CCA 2.24 ratio LT ICA/CCA 1.40ratio RT VERT PSV 21 cm/sec LT VERT PSV 53cm/sec - Findings: Performing Race Board Attendant: Angie Crain RVT. Rt Common Carotid Artery: The plaque in the right CCA appears to beheterogeneous and smooth. Atherosclerotic changes of the right common carotid artery with no hemodynamically significant Doppler findings. Rt Internal Carotid Artery: The plaque in the right internal carotidartery appears to be calcified and irregular. Significant atherosclerotic changes of the rightinternal carotid artery with elevated peak systolic velocity and end diastolicvelocity, as above. 50-69% stenosis. Rt External Carotid Artery: Patent right external carotid artery withevidence of atherosclerotic disease present. Rt Vertebral Artery: Bidirectional flow in the right vertebral arterymaybe consistent with ipsilateral subclavian artery stenosis or occlusion. Lt Common Carotid Artery: The plaque in the left CCA appears to becalcified and irregular(at the distal common carotid artery). Elevated left proximalcommon carotid artery velocity as noted above with no evidence of significantatherosclerosis disease. Lt Internal Carotid Artery: The plaque in the left internal carotid arteryappears to be calcified and irregular. Atherosclerotic changes of the left internalcarotid artery without hemodynamically significant Doppler findings. <50% stenosis(closerto 50% stenosis per peak systolic velocity and per image) Unable to visualize a 0.31cm segment of the left proximal ICA due tocalcific shadowing. Lt External Carotid Artery: The left external carotid artery is patentwithout evidence of atherosclerotic plaque. Lt Vertebral Artery: The left vertebral artery is patent with antegradeflow. Comments: The right axillary artery was imaged and waveform appearsturbulent with a peak systolic velocity of 115cm/s. Conclusions: 1. The right internal carotid artery disease is consistent with a 50- 69%stenosis. 2. The left internal carotid artery disease is consistent with a less than50% stenosis(closer to 50% per peak systolic velocity). 3. Normal, antegrade flow is noted in the left vertebral artery. 4. Abnormal, bidirectional flow noted in the right vertebral arteryconsistent with ipsilateral subclavian artery stenosis or occlusion(previouslydocumented). See surgical history. 5. Patent bilateral external carotid arteries with evidence ofatherosclerotic plaque. 6. No evidence of hemodynamically significant stenosis in the commoncarotid artery bilaterally. History: 10/21/2019 s/p bypass from the aorta to the right axillary artery as well as a bifurcated bypass from the ascending aorta to the right common carotid artery and the left common carotid artery. Previous Studies: Previous carotid ultrasound on 04/12/2018 (less than 50%stenosis ICA/bidirectional right vertebral). Disclaimer: The signing physician has reviewed all images pertaining tothis test. These images and this report will be retained in the patient chart by theVascular Laboratory for the legally required time period. This chart constitutes the legalrecord of any testing performed. Electronically Signed By: Nanci Trujillo MD [facility] 2020-04-10 11:44:11 CDT CC: CC: us Nanci Trujillo MD IMG US PROCEDURES Final R esult documented in this encounter Visit Diagnoses Diagnosis Encounter for surgical aftercare following surgery on the circulatory system documented in this encounter Care Teams Product Design Specialist Relationship Specialty Start Date End Date Abbe Nails MD [address] [place] [address] PCP - General 11/03/19 06/30/22 Nanci Trujillo MD Surgeon Vascular Surgery 10/12/19 Azar Lara MD Surgeon Cardiothoracic Surgery 10/27/19 documented as of this encounter
--- OUTSIDE RECORDS SUMMARY | 2024-09-08 08:22 | XMS_ITS | Encounter Summary ---
Author Organization [facility] Address [address] [facility] [address] [place] [address] Phone Care Team Providers Care Computer Analyst Supervisor Name Role Phone Zachary Giron MD Unavailable [phone] Azar Lara MD Unavailable Abbe Nails MD Primary Care Provider Encounter Details Date Type Department Care Team (Late st Contact Info) Description 01/16/2020 Telephone [facility] Surgery [address] [facility] Advanced Medicine 8th [place] [address] [place] [address] Zachary Giron MD [address] [facility] [id number] [place] [address] Social History Tobacco Use Types Packs/Day Years Used Date Smoking Tobacco: Former Cigarettes Smokeless Tobacco: Never Alcohol Use Standard Drinks/Week Comments Yes 0 (1 standard drink = 0.6 oz pur e alcohol) Comments Unknown Sex and Gender Information Value Date Recorded Sex Assigned at Not on file 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 Saenz is scheduled for small bowel surgery at [facility] on 01/18/20. She states her arm is feeling well and she is not having any episodes of lightheadedness, pain or blurred vision. She will contact the office when she has recovered to schedule a f/u visit. Informed Dr. Giron. documented in this encounter Plan of Treatment Not on file documented as of this encounter Visit Diagnoses Not on filedocumented in this encounter Care Teams Computer Analyst Supervisor Relationship Specialty Start Date End Date Abbe Nails MD [address] [place] [address] PCP - General 11/03/19 06/30/22 Zachary Giron MD Surgeon Vascular Surgery 10/12/19 Azar Lara MD Surgeon Cardiothoracic Surgery 10/27/19 documented as of this encounter
--- OUTSIDE RECORDS SUMMARY | 2024-09-08 08:22 | XMS_ITS | Encounter Summary ---
Author Organization [facility] Address [address] [facility] [address] [place] [address] Phone Care Team Providers Care Dance Instructor Name Role Phone Zachary Giron MD Unavailable [phone] Azar Lara MD Unavailable Abbe Nails MD Primary Care Provider [phone] Reason for Visit * Reason Comments Follow-up * Consultation (Routine) - Closed Specialty Diagnoses / Procedures Referred By Khadijah ricks Referred To Contact Vascular Surgery Diagnoses Hematoma Bilateral carotid artery stenosis Vertebral artery compression syndrome Abbe Nails MD Phone: tel: fax: Zachary Giron MD [address] [facility] [id number] [place] [address] Phone: tel: fax: Referral ID Status Reason Start Date Expiration Date V isits Requested Visits Authorized [id number] Closed Specialty Services Required 03/25/2020 04/24/2021 99 99 Encounter Details Date Type Department Care Team (Late st Contact Info) Description 04/09/2020 11:15 AM CDT Office Visit [facility] [address] [facility] 8th [place] [address] [place] [address] Zachary Grion MD [address] [facility] [id number] [place] [address] Hematoma; Bilateral carotid artery stenosis; Vertebral artery compression syndrome Social History Tobacco Use Types Packs/Day Years Used Date Smoking Tobacco: Former Cigarettes Smokeless Tobacco: Never Alcohol Use Standard Drinks/Week Comments Yes 0 (1 standard drink = 0.6 oz pur e alcohol) Comments Unknown Sex and Gender Information Value Date Recorded Sex Assigned at Not on file 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 Gender Identity Not on file Sexual Orientation Not on file documented as of this encounter Last Filed Vital Signs Vital Sign Reading Time Taken Comments Blood Pressure 148/74 04/09/2020 11:22 AM CDT Pulse 62 04/09/2020 11:22 AM CDT Temperature 36.1 ??C (96.9 ??F) 04/09/2020 11:22 AM C DT Respiratory Rate - - Oxygen Saturation 100% 04/09/2020 11:22 AM CDT Inhaled Oxygen Concentration - - Weight 74.8 kg (165 lb) 04/09/2020 11:22 AM CDT Height 170.2 cm (5' 7 ) 04/09/2020 11:22 AM CDT Body Mass Index 25.84 04/09/2020 11:22 AM CDT documented in this encounter Progress Notes * Zachary Giron MD - 04/09/2020 11:15 AM CDT Vascular Clinic Note- Established Patient Suma Saenz is a 74 y.o. female who is seen in follow-up for symptomatic multi-vessel cerebrovascular disease. HPI: This nice lady underwent bypass in the ascending aorta to her bilateral common carotid arteries and right axillary artery in October 2019. This is her 1st follow-up visit. Wrist arm indices are0.8 on the right and greater than 1 on the left. Carotid duplex scan again shows the moderate to severe stenosis at the right internal carotid origin. She has remained neurologically asymptomatic sinc e her surgery, and is quite pleased with that. Unfortunate, she needed to undergo a partial small bowel resection December due to Crohn's disease. She has also recovered fairly well from that, and is eating normally, with no postprandial discomfort or diarrhea. Allergies Allergen Reactions ??? Naproxen Rash ??? Nsaids (Non-Steroidal Anti-Inflammatory Drug) Hives ??? Penicillins Rash ??? Sulfa (Sulfonamide Antibiotics) Rash Current Outpatient Medications Medication Sig Dispense Refill ??? acetaminophen 500 mg capsule Take 2 capsules (1,000 mg total) by mouth every 6 (six) hours as needed for pain 30 tablet ??? amLODIPine (NORVASC) 10 mg tablet Take 1 tablet (10 mg total) by mouth daily 30 tablet 11 ??? aspirin 325 mg tablet take 1 tablet by oral route every day 0 0 ??? atorvastatin (LIPITOR) 80 mg tablet take 1 tablet by oral route every day 0 0 ??? bisacodyL (DULCOLAX) 10 mg suppository Insert 1 suppository (10 mg total) into the rectum dailyas needed for constipation 12 suppository ??? buPROPion XL (WELLBUTRIN XL) 150 mg 24 hr tablet take 1 tablet by oral route 2 times every day 0 0 ??? camphor-menthol (SARNA) lotion Apply topically every 6 (six) hours as needed for irritation, itching or dry skin Avoid incision sites 222 mL ??? carvediloL (COREG) 25 mg tablet Take 1 tablet (25 mg total) by mouth 2 (two) times a day 60 tablet 11 ??? cetirizine (ZyrTEC) 10 mg tablet take 1 tablet by oral route every day 0 0 ??? doxycycline (ADOXA) 50 mg tablet Take 50 mg by mouth 2 (two) times a day. ??? hydroCHLOROthiazide (HYDRODIURIL) 25 mg tablet Take 25 mg by mouth daily ??? lisinopriL (PRINIVIL,ZESTRIL) 10 mg tablet Take 1 tablet (10 mg total) by mouth daily 30 [id number] ??? montelukast (SINGULAIR) 10 mg tablet take 1 tablet by oral route every day in the evening 0 0 ??? ondansetron ODT (ZOFRAN-ODT) 4 mg disintegrating tablet Take 1 tablet (4 mg total) by mouth every 8 (eight) hours as needed for nausea or vomiting 20 tablet 0 ??? oxyCODONE (ROXICODONE) 5 mg immediate release tablet Take 1 tablet (5 mg total) by mouth every 4 (four) hours as needed for pain 20 tablet 0 ??? polyethylene glycol (MIRALAX) 17 gram packet Take 1 packet (17 g total) by mouth daily as needed for constipation ??? senna-docusate (Senna Plus) 8.6-50 mg Take 1-2 tablets by mouth 2 (two) times a day as needed for constipation 20 tablet 0 No current facility-administered medications for this visit. Past Medical History: Diagnosis Date ??? Anxiety ??? Back pain ??? Carotid stenosis ??? Degenerative disc disease at L5-S1 level ??? Depression ??? Ischemic embolic stroke (CMS/HCC) 07/04/2016 Cerebrovascular accident (CVA) due to embolism of cerebral artery ??? Orthostatic hypotension ??? Syncope 10/18/2019 Past [...] IMPLANTATION Bilateral 2017 Social History Tobacco Use ??? Smoking status: Former Smoker Types: Cigarettes ??? Smokeless tobacco: Never Used Substance Use Topics ??? Alcohol use: Yes ??? Drug use: Never Social History Social History Narrative Occasional alcohol use : (Added by TW Conv) Family History Problem Relation Age of Onset ??? Stroke Father Stroke; ??? Heart disease Father Family history of cardiac disorder - (Added by TW Conv) ??? Heart disease Mother Heart disease; /Family history of cardiac disorder - (Added by TW Conv) ROS: She has mild residual fatigue which continues to improve. No syncopal episodes, no hemisphericevents. PHYSICAL EXAM: There were no vitals taken for this visit. Alert and oriented x3. Affect is appropriate. Facial musculature is symmetric. A systolic bruit is appreciated over the proximal sternum, radiating to the neck bilaterally.. The cardiac rhythm is regular. No murmurs. Lungs are clear. Abdomen is benign. No aneurysm appreciated. The radial pulses arepalpable bilaterally. Femoral pulses are palpable bilaterally. The lower extremities were not examined in detail. No significant edema. Neurologically intact. Impression and Plan: I am pleased with her stable condition. We talked about the management of her asymptomatic moderateto severe right internal carotid artery stenosis. At present, she still recovering from her tandem vascular and Crohn's procedures, and I think she would be best served by continued medical management. I will plan to see her in 1 year with repeat carotid duplex scan and we will revisit the issue ofmanagement of that lesion at that time. She understands the small yearly risk of TIA and stroke from an asymptomatic carotid lesion, as well as the procedural risks associated with intervention, and agrees to this plan of care. documented in this encounter Plan of Treatment Not on file documented as of this encounter Visit Diagnoses Diagnosis Hematoma Contusion of unspecified site Bilateral carotid artery stenosis Occlusion and stenosis of carotid artery without mention of cerebral infarction Vertebral artery compression syndrome Cervical spondylosis with myelopathy documented in this encounter Historical Medications * This list may reflect changes made after this encounter. Lactobacillus acidophilus capsule Take 1 tablet by mouth 2 (two) times a day 08/17/2023 mesalamine (PENTASA) 250 mg CR capsuleIndication s:Ulcerative Colitis Take 400 mg by mouth 2 (two) times a day 08/17/2023 biotin 10,000 mcg capsuleIndication s:Biotin Deficiency Take 1 capsule (10,000 mcg total) by mouth 2 (two) times a day 02/09/2024 added in this encounter Orders Outpatient Referral Count Last Ordered Date Fir st Ordered Date AMB REFERRAL TO VASCULAR SURGERY 1 04/09/20 documented in this encounter Care Teams Dance Instructor Relationship Specialty Start Date End Date Abbe Nails MD [address] [place] [address] PCP - General 11/03/19 06/30/22 Zachary Giron MD Surgeon Vascular Surgery 10/12/19 Azar Lara MD Surgeon Cardiothoracic Surgery 10/27/19 documented as of this encounter
--- OUTSIDE RECORDS SUMMARY | 2024-09-08 08:22 | XMS_ITS | Encounter Summary ---
Author Organization [facility] [employer] [facility] Address [address] [place] [address] Phone Care Team Providers Care Tub Attendant Name Role Phone Zachary Giron MD Unavailable [phone] Azar Lara MD Unavailable Abbe Nails MD Primary Care Provider [phone] Reason for Referral * MRI/CAT/PET Scan (Routine) - Closed Specialty Diagnoses / Procedures Referred By Contac t Referred To Contact Radiology Diagnoses Occlusion and stenosis of right carotid artery Procedures CTA Head Neck W WO Contrast Zachary Giron MD [address] [facility] [address] [place] [address] Phone: tel: fax: [facility] [address] [place] [address] Referral ID Status Reason Start Date Expiration Date Visits Re quested Visits Authorized [id number] Closed 06/09/2022 07/09/2023 1 1 Encounter Details Date Type Department Care Team (Late st Contact Info) Description 06/09/2022 Orders Only [facility] [address] [facility] 8th [place] [address] [place] [address] Zachary Giron MD [id number] [place] [address] Occlusion and stenosis of right carotid artery (Primary Dx) Social History Tobacco Use Types Packs/Day Years Used Date Smoking Tobacco: Former Cigarettes Smokeless Tobacco: Never Alcohol Use Standard Drinks/Week Comments Yes 0 (1 standard drink = 0.6 oz pur e alcohol) Comments Unknown Sex and Gender Information Value Date Recorded Sex Assigned at Not on file 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 ??Postsurgical changes of partial median sternotomy, right axillary artery bypass, and right common carotid artery and left common carotid artery bypass with complex aortic arch reconstruction. 2. ??Atherosclerotic calcification of the common carotid arteries resulting in 57% stenosis of the left common carotid artery just inferior to the bifurcation and 50% stenosis of the right common carotid artery at the bifurcation. Dictated by: Miguel Ángel Love MD PHD The radiology attending physician has personally reviewed this study, and had reviewed and/or edited this written report and agrees with it. Electronically signed by: Margaret Syed M.D. 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 TECHNIQUE: Computed tomography of the head was performed without contrast according to standard protocol. Computed tomographic angiography was then obtained from the aortic arch to the vertex following the uneventful administration of intravenous contrast. 3D images were generated on a dedicated workstation. Contrast information: 95 mL Optiray-350 COMPARISON: CT dated 10/31/2019. FINDINGS: Topogram demonstrates no lytic lesions or fractures. There is no acute intracranial hemorrhage . Ventricles are of normal size and morphology. No mass effect or midline shift is present. The nazario-white matter differentiation is normal. Mild diffuse cerebral volume loss. Tiny chronic appearing pontine infarct. Small scattered periventricular and subcortical punctate foci of hypoattenuation are nonspecific and likely represent sequela of chronic small vessel ischemic disease. Mild to moderate mucosal thickening of the left maxillary sinus. The right maxillary sinus is normal. Other paranasal sinuses are normal. Mild rightward deviation of the nasal septum. The visualized portions of the mastoids are normal. Pneumatization of the petrous apices. No fractures are identified. Hyperostosis frontalis interna. Bilateral lens placement. Scattered subcentimeter lymph nodes are seen in the neck. None are pathologically enlarged or abnormally enhancing. The muscles of the neck are normal. Fascial planes are preserved and the deep spaces of the neck are normal. The visualized airway is widely patent. Subcentimeter left thyroid nodule is noted. The spinal canal is normal in caliber. Mild reversal of normal cervical lordosis. Mild multilevel degenerative disc disease of the cervical spine, greatest at C6-C7. Moderate to severe narrowing of the neural foramina, greatest at the C5-C6 level. Limited examination of the superior thorax demonstrates mild centrilobular emphysema and mild bilateral dependent atelectasis. Angiographic findings: Postsurgical changes of partial median sternotomy, right axillary artery bypass, right common carotid artery and left common carotid artery bypass, and complex aortic arch reconstruction. The origin of the right and left common carotid arteries are not visualized on this examination. Severe atherosclerotic calcification involving the remaining innominate artery. The common carotid arteries demonstrate atherosclerotic calcifications at the bifurcations. At the right common carotid artery bifurcation, there is 50% atherosclerotic stenosis. There is 57% stenosis of the left common carotid artery, just inferior to the bifurcation. The left internal carotid artery demonstrates a retropharyngeal course. The course of the right internal carotid artery is normal. Atherosclerotic calcification of the cavernosal portions of the internal carotid arteries is unchanged. The [id number] is complete. The anterior and middle cerebral arteries are normal. The right vertebral artery is dominant. The basilar artery is hypoplastic. The posterior cerebral arteries are normal. There is a prominent right posterior communicating artery. There is no aneurysm or vascular malformation identified. 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 TECHNIQUE: Computed tomography of the head was performed without contrast according to standard protocol. Computed tomographic angiography was then obtained from the aortic arch to the vertex following the uneventful administration of intravenous contrast. 3D images were generated on a dedicated workstation. Contrast information: 95 mL Optiray-350 COMPARISON: CT dated 10/31/2019. FINDINGS: Topogram demonstrates no lytic lesions or fractures. There is no acute intracranial hemorrhage . Ventricles are of normal size and morphology. No mass effect or midline shift is present. The nazario-white matter differentiation is normal. Mild diffuse cerebral volume loss. Tiny chronic appearing pontine infarct. Small scattered periventricular and subcortical punctate foci of hypoattenuation are nonspecific and likely represent sequela of chronic small vessel ischemic disease. Mild to moderate mucosal thickening of the left maxillary sinus. The right maxillary sinus is normal. Other paranasal sinuses are normal. Mild rightward deviation of the nasal septum. The visualized portions of the mastoids are normal. Pneumatization of the petrous apices. No fractures are identified. Hyperostosis frontalis interna. Bilateral lens placement. Scattered subcentimeter lymph nodes are seen in the neck. None are pathologically enlarged or abnormally enhancing. The muscles of the neck are normal. Fascial planes are preserved and the deep spaces of the neck are normal. The visualized airway is widely patent. Subcentimeter left thyroid nodule is noted. The spinal canal is normal in caliber. Mild reversal of normal cervical lordosis. Mild multilevel degenerative disc disease of the cervical spine, greatest at C6-C7. Moderate to severe narrowing of the neural foramina, greatest at the C5-C6 level. Limited examination of the superior thorax demonstrates mild centrilobular emphysema and mild bilateral dependent atelectasis. Angiographic findings: Postsurgical changes of partial median sternotomy, right axillary artery bypass, right common carotid artery and left common carotid artery bypass, and complex aortic arch reconstruction. The origin of the right and left common carotid arteries are not visualized on this examination. Severe atherosclerotic calcification involving the remaining innominate artery. The common carotid arteries demonstrate atherosclerotic calcifications at the bifurcations. At the right common carotid artery bifurcation, there is 50% atherosclerotic stenosis. There is 57% stenosis of the left common carotid artery, just inferior to the bifurcation. The left internal carotid artery demonstrates a retropharyngeal course. The course of the right internal carotid artery is normal. Atherosclerotic calcification of the cavernosal portions of the internal carotid arteries is unchanged. The [id number] is complete. The anterior and middle cerebral arteries are normal. The right vertebral artery is dominant. The basilar artery is hypoplastic. The posterior cerebral arteries are normal. There is a prominent right posterior communicating artery. There is no aneurysm or vascular malformation identified. IMPRESSION: 1. Postsurgical changes of partial median sternotomy, right axillary artery bypass, and right common carotid artery and left common carotid artery bypass with complex aortic arch reconstruction. 2. Atherosclerotic calcification of the common carotid arteries resulting in 57% stenosis of the left common carotid artery just inferior to the bifurcation and 50% stenosis of the right common carotid artery at the bifurcation. Dictated by: Miguel Ángel Love MD PHD The radiology attending physician has personally reviewed this study, and had reviewed and/or edited this written report and agrees with it. Electronically signed by: Margaret Syed M.D. Zachary Giron MD IMG CT PROCEDURES Final R esult documented in this encounter Visit Diagnoses Diagnosis Occlusion and stenosis of right carotid artery- Primary Occlusion and stenosis of right carotid artery documented in this encounter Care Teams Tub Attendant Relationship Specialty Start Date End Date Abbe Nails MD [address] [address] PCP - General 11/03/19 06/30/22 Zachary Giron MD Surgeon Vascular Surgery 10/12/19 Azar Lara MD Surgeon Cardiothoracic Surgery 10/27/19 documented as of this encounter
--- OUTSIDE RECORDS SUMMARY | 2024-09-08 08:22 | XMS_ITS | Encounter Summary ---
Author Organization [facility] [employer] [facility] Address [address] [facility] [address] [place] [address] Phone Care Team Providers Care Manager Of Training And Development Name Role Phone Zachary Giron MD Unavailable [phone] Azar Lara MD Unavailable Perez Alexander DO Primary Care Provider Reason for Visit * Reason Comments Vocal Cord Paralysis * Consultation (Emergency) - Closed Specialty Diagnoses / Procedures Referred By Khadijah t Referred To Contact Otolaryngology Diagnoses Carotid artery disease (HCC) Status post carotid surgery Zachary Giron MD [address] [facility] [id number] [place] [address] Phone: tel: fax: [facility] (All Locations) Referral ID Status Reason Start Date Expiration Date V isits Requested Visits Authorized [id number] Closed Specialty Services Required 06/17/2022 07/17/2023 10 10 Encounter Details Date Type Department Care Team (Late st Contact Info) Description 07/03/2022 10:20 AM CDT [facility] Visit [facility] [address] [facility] 11th [place] [address] [place] [address] Adrien Mchugh MD [address] [facility] [address] [place] [address] Carotid artery disease (CMS/HCC) (HCC); Status post carotid surgery Social History Tobacco [...] on file 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 Gender Identity Not on file Sexual Orientation Not on file documented as of this encounter Last Filed Vital Signs Vital Sign Reading Time Taken Comments Blood Pressure 153/65 07/03/2022 10:34 AM CDT Pulse 67 07/03/2022 10:34 AM CDT Temperature - - Respiratory Rate - - Oxygen Saturation - - Inhaled Oxygen Concentration - - Weight 83.5 kg (184 lb) 07/03/2022 10:34 AM CDT Height 170.2 cm (5' 7 ) 07/03/2022 10:34 AM CDT Body Mass Index 28.82 07/03/2022 10:34 AM CDT documented in this encounter Progress Notes * Adrien Mchugh MD - 07/03/2022 10:20 AM CDT Images from the original note were not included. [facility] Department of Otolaryngology - Head & Neck Surgery [facility] Consultation Report 07/03/2022 Adrien Mchugh MD Consultation Requested By: Zachary Giron MD Primary Care Provider: Perez Alexander DO Name: Suma Saenz Date of : 1945 Chief Complaint Patient presents with Vocal Cord Paralysis Subjective HISTORY OF PRESENT ILLNESS: Thank you for asking me to evaluate Ms. Saenz in the [facility]. The patient is accompanied by her . Additional history is gathered from the family member. Ms. Saenz is referred for evaluation of voice in the setting of carotid artery surgery. She previously underwent surgery including bypass from the ascending aorta to the right axillary artery via sternotomy. She also had bypass of the ascending aorta to the right common carotid artery and left common carotid artery with Dacron grafts. She is planned to undergo a left carotid endarterectomy with patch graft, upcoming. She does not recall any specific voice change after the prior surgeries. She reports no voice concerns and no swallow concerns currently. Past Medical History: Diagnosis Date Anxiety Back pain Carotid stenosis Degenerative disc disease at L5-S1 level Depression Orthostatic hypotension Syncope 10/18/2019 Past Surgical History: Procedure Laterality Date APPENDECTOMY 2010 CARDIAC CATHETERIZATION 10/18/2019 CARPAL TUNNEL RELEASE 11/13/2005 1. Surgical release of compression of the median nerve, right wrist; surgical release of tenosynovitis of the right ring finger; and surgical release of tenosynovitis of the right middle finger. CATARACT EXTRACTION EXTRACAPSULAR W/ INTRAOCULAR LENS IMPLANTATION Bilateral 2017 Allergies Allergen Reactions Naproxen Rash Nsaids (Non-Steroidal Anti-Inflammatory Drug) Hives Penicillins Rash Sulfa (Sulfonamide Antibiotics) Rash Current Outpatient Medications: acetaminophen 500 mg capsule, Take 2 capsules (1,000 mg total) by mouth every 6 (six) hours as needed for pain, Disp: 30 tablet, Rfl: allopurinoL (ZYLOPRIM) 100 mg tablet, , Disp: , Rfl: amLODIPine (NORVASC) 10 mg tablet, Take 1 tablet (10 mg total) by mouth daily, Disp: 30 tablet, Rfl: 11 aspirin 325 mg tablet, take 1 tablet by oral route every day, Disp: 0, Rfl: 0 atorvastatin (LIPITOR) 80 mg tablet, take 1 tablet by oral route every day, Disp: 0, Rfl: 0 biotin 10,000 mcg capsule, Take by mouth, Disp: , Rfl: buPROPion XL (WELLBUTRIN XL) 150 mg 24 hr tablet, take 1 tablet by oral route 2 times every day, Disp: 0, Rfl: 0 carvediloL (COREG) 25 mg tablet, Take 1 tablet (25 mg total) by mouth 2 (two) times a day, Disp: 60tablet, Rfl: 11 cetirizine (ZyrTEC) 10 mg tablet, take 1 tablet by oral route every day, Disp: 0, Rfl: 0 estradioL (ESTRACE) 0.01 % (0.1 mg/gram) vaginal cream, , Disp: , Rfl: hydroCHLOROthiazide (HYDRODIURIL) 25 mg tablet, Take 25 mg by mouth daily, Disp: , Rfl: Lactobacillus acidophilus capsule, Take by mouth, Disp: , Rfl: lisinopriL (PRINIVIL,ZESTRIL) 10 mg tablet, Take 1 tablet (10 mg total) by mouth daily, Disp: 30 tablet, Rfl: 11 medical cannabis each, 1 Dose as needed, Disp: , Rfl: mesalamine (PENTASA) 250 mg CR capsule, Take 400 mg by mouth 4 (four) times a day, Disp: , Rfl: montelukast (SINGULAIR) 10 mg tablet, take 1 tablet by oral route every day in the evening, Disp: 0, Rfl: 0 nitrofurantoin monohydrate (MACROBID) 100 mg capsule, , Disp: , Rfl: oxyCODONE (ROXICODONE) 5 mg immediate release tablet, Take 1 tablet (5 mg total) by mouth every 4 (four) hours as needed for pain, Disp: 20 tablet, Rfl: 0 azithromycin (ZITHROMAX) 250 mg tablet, , Disp: , Rfl: benzonatate (TESSALON) 200 mg capsule, , Disp: , Rfl: doxycycline monohydrate (MONODOX) 100 mg capsule, , Disp: , Rfl: Social History Tobacco Use Smoking status: Former Types: Cigarettes Smokeless tobacco: Never Substance and Sexual Activity Drug use: Never Sexual activity: Defer Alcohol Use: Not on file Family History Problem Relation Age of Onset Stroke Father Stroke; Heart disease Father Family history of cardiac disorder - (Added by JAMAAL Conv) Heart disease Mother Heart disease; /Family history of cardiac disorder - (Added by JAMAAL Conv) REVIEW OF SYSTEMS A complete review of systems was completed by the patient on the Patient History Form and reviewed with the patient during the visit. The patient intake form, including the past medical history, past surgical history, social history,family history, medications, allergies, and review of systems was reviewed in its entirety and was signed and dated by myself. The Patient History Form can be found in the electronic medical record as a scanned document. Objective PHYSICAL EXAM: Constitutional: Vitals BP 153/65 Pulse 67 Ht 170.2 cm (5' 7 ) Wt 83.5 kg (184 lb) BMI 28.82 kg/m?? General: Well-developed, well-nourished in no apparent distress. Appropriate affect. Voice: perceptual evaluation of voice reveals overall no dysphonia; no roughness, no breathiness, no weakness, and no strain. The pitch is within expectations for age and gender. There is not evidence of tremor. Head and Face: Normocephalic, atraumatic. Skin: No cutaneous lesions of the face or neck. Neurologic: Cranial nerves II through XII are grossly intact. Eyes: Pupils are equal, round, and reactive to light and accommodation. Extraocular muscles are intact. No notable scleral icterus or injection. Ears: Auricles are unremarkable bilaterally. EACs are clear. Tympanic membranes are intact. There is no evidence of middle ear effusion. Nose: Dorsum is midline. No masses or polyps visualized on anterior rhinoscopy. No drainage or discharge. Septum: midline Oral Cavity/Oropharynx: No visible mucosal lesions. Tongue protrudes midline, palate elevates symmetrically. Floor of mouth is pink and soft. No abnormalities of the floor of mouth, oral tongue, or oropharynx. Neck: No evidence of lymphadenopathy, masses or tenderness. There is not excessive tension in the cervical musculature. There is not excessive tenderness in the cervical musculature. Endocrine: No palpable abnormalities of the thyroid gland. Cardiovascular: Extremities are warm and well perfused. Pulmonary: Normal quiet breathing. No respiratory distress, stridor, or wheeze. PROCEDURE PERFORMED: Procedure: Flexible transnasal laryngoscopy In a separately identifiable procedure to better assess the larynx based on the history and other exam findings, the patient underwent flexible transnasal laryngoscopy via the right side of the nose.Tetracaine 1% and oxymetazoline 0.025% (1:1) was applied to the nasal cavity. The procedure was described in detail to the patient. The risks benefits, and alternatives were thoroughly discussed and the patient wished to proceed with the recommended procedure. After topical anesthesia and decongestion, the laryngoscope was passed. The nasal cavities, nasopharynx, oropharynx, hypopharynx, and larynx were all examined. Vocal folds were examined during respiration and phonation. The following findings were noted: - General: mucus consistency thin - Nasopharynx: no purulence or polyps - Hypopharynx: no lesions; no erythema - Supraglottis: no lesions; no erythema or edema; no constriction during phonation - Vocal Fold Mobility: normal and symmetric - Vocal Fold Anatomy: normal color; no lesions; no edema - Mucosal wave pattern: Not assessed - Phase symmetry: not assessed - Closure: grossly complete closure - Subglottis: subglottis patent without evidence of stenosis DATA REVIEWED: 07/03/2022 Lab Tests: no Pathology Reports: no Radiology Reports: reviewed report of 06/16/2022 CT of neck Old Records/Discussion with MD: Reviewed referring provider note(s) and other clinical encounters relevant to this visit. Assessment/Plan Suma Saenz is a 76 y.o. referred for evaluation of vocal cord function. Evaluation including laryngeal videoendoscopy was significant for bilateral vocal fold motion intact. The findings were explained in detail to the patient. We discussed that there is no contraindication to proceeding withsurgery from the perspective of her voice or breathing. I explained the unlikely risk of injury to the vagus or recurrent laryngeal nerve and the treatment if that were to occur. If she does experience any voice change after surgery, I encouraged her to call and return for another appointment. MEDICATIONS: No orders of the defined types were placed in this encounter. OTHER ORDERS: No orders of the defined types were placed in this encounter. DISPOSITION: Return if symptoms worsen or fail to improve. Thank you for allowing me to participate in the care of Ms. Saenz. Should you have any questionsor concerns, please do not hesitate to contact my office. Warm regards, Adrien Mchugh M.D. [facility] Department of Otolaryngology - Head & Neck Surgery [facility] Portions of this note were dictated using M*Modal Fluency Direct. Program Or Project Administrator errors and homophone substitutions may occur. documented in this encounter Plan of Treatment Not on file documented as of this encounter Visit Diagnoses Diagnosis Carotid artery disease (HCC) Unspecified disorders of arteries and arterioles Status post carotid surgery Other postprocedural status documented in this encounter Orders Outpatient Referral Count Last Ordered Date Fir st Ordered Date AMB REFERRAL TO ENT 1 07/03/2022 documented in this encounter Care Teams Manager Of Training And Development Relationship Specialty Start Date End Date Perez Alexander DO [address] [place] [address] PCP - General Family Medicine 07/01/22 Zachary Giron MD Surgeon Vascular Surgery 10/12/19 Azar Lara MD Surgeon Cardiothoracic Surgery 10/27/19 documented as of this encounter
--- OUTSIDE RECORDS SUMMARY | 2024-09-08 08:22 | XMS_ITS | Encounter Summary ---
Author Organization [facility] [employer] [facility] Address [address] [place] [address] Phone Care Team Providers Care Audio Video Tech Name Role Phone Nanci Trujillo MD Unavailable [phone] Azar Lara MD Unavailable Abbe Nails MD Primary Care Provider [phone] Reason for Visit * Diagnostic Imaging (Routine) - Closed Specialty Diagnoses / Procedures Referred By Contac t Referred To Contact Diagnoses Encounter for surgical aftercare following surgery on the circulatory system Procedures US Carotids Duplex Bilateral Nanci Trujillo MD Phone: tel: fax: [facility] (All Locations) Referral ID Status Reason Start Date Expiration Date Visits Re quested Visits Authorized [id number] Closed 05/27/2021 06/26/2022 99 99 Encounter Details Date Type Department Care Team (Latest Contact Info) Description 06/09/2022 11:00 AM CDT Ancillary Procedure [facility] at [facility] [address] [place] [address] Advanced Medicine 8th [place] [address] [place] [address] Encounter for surgical aftercare following [...] on file 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 Gender Identity Not on file Sexual Orientation Not on file documented as of this encounter Plan of Treatment Not on file documented as of this encounter Procedures Procedure Name Priority Date/Time Associated Diagnosis Comments US CAROTIDS DUPLEX BILATERAL Schedule Routine, Read Routine (OP Routine) 06/09/2022 11:23 AM CDT Encounter for surgical aftercare following surgery on the circulatory system documented in this encounter Results * US Carotids Duplex Bilateral (06/09/2022 11:23 AM CDT) Anatomical Region Laterality Modality Vascular Bilateral Ultrasound 06/09/2022 10:4 6 AM CDT Narrative 06/09/2022 10:16 PM CDT [facility] - Department of Vascular Surgery, Vascular Laboratory [address] [place] [address] Carotid Duplex Ultrasound Report Patient Name: SUMA SAENZ : 1945 (76y 5m) Study Date: 06/09/2022 10:46:18 AM Gender: F Tech: Location: [facility] Ref.Provider: NANCI TRUJILLO Quality: Adequate Order Provider: NANCI TRUJILLO Procedures: Carotid Report: Carotid duplex examination of the extracranial arteries was performed using 2D, color and spectral Doppler. Indications: Encounter for Surgical Aftercare Following Surgery on the Circulatory System; Mini-Sternotomy, ascending aorta to right ax artery bypass with graft; ascending aorta to Dx: Encounter for surgical aftercare following surgery on the circulatory system [Z48.812 (ICD-10-CM)]. Measurements: Right Carotid ? Left Carotid ? Measurement ?Value ?Units ? Measurement ?Value ?Units ? RT Prox CCA PSV ?154 ?cm/sec ?LT Prox CCA PSV ?112 ?cm/sec ? RT Prox CCA EDV ?16 ? cm/sec ?LT Prox CCA EDV ?12 ? cm/sec ? RT Distal CCA PSV ?96 ? cm/sec ?LT Distal CCA PSV ?80 ? cm/sec ? RT Distal CCA EDV ?17 ? cm/sec ?LT Distal CCA EDV ?15 ? cm/sec ? RT Prox ICA PSV ?265 ?cm/sec ?LT Prox ICA PSV ?88 ? cm/sec ? RT Prox ICA EDV ?41 ? cm/sec ?LT Prox ICA EDV ?13 ? cm/sec ? RT Mid ICA PSV ? 110 ?cm/sec ?LT Mid ICA PSV ? 82 ? cm/sec ? RT Mid ICA EDV ? 17 ? cm/sec ?LT Mid ICA EDV ? 17 ? cm/sec ? RT Distal ICA PSV ?89 ? cm/sec ?LT Distal ICA PSV ?85 ? cm/sec ? RT Distal ICA EDV ?19 ? cm/sec ?LT Distal ICA EDV ?20 ? cm/sec ? RT ECA PSV ? 161 ?cm/sec ?LT ECA PSV ? 234 ?cm/sec ? RT ICA/CCA ? 2.76 ? ratio ? LT ICA/CCA ? 1.10 ? ratio ? RT VERT PSV ?36 ? cm/sec ?LT VERT PSV ?54 ? cm/sec ? Measurement ?Value ?Units ? Measurement ?Value ?Units ? Right Carotid ? Left Carotid ? - Findings: Performing Document Control Associate: Ambika Mars RVT, RDMS. Rt Common Carotid Artery: The plaque in the right CCA appears to be heterogeneous, calcified and irregular. Atherosclerotic changes of the right DISTAL common carotid artery with hemodynamically significant Doppler findings in the PROXIMAL portion; elevated peak systolic velocity as above. Rt Internal Carotid Artery: The plaque in the right internal carotid artery appears to be heterogeneous, calcified and irregular. Significant atherosclerotic changes of the right internal carotid artery with elevated peak systolic velocity and end diastolic velocity, as above. >70% stenosis. Rt External Carotid Artery: Patent right external carotid artery with evidence of atherosclerotic disease present. Rt Vertebral Artery: Bidirectional flow in the right vertebral artery maybe consistent with ipsilateral subclavian artery stenosis or occlusion. Lt Common Carotid Artery: The plaque in the left CCA appears to be heterogeneous, calcified and irregular in the distal portion. Atherosclerotic changes of the left common carotid artery with no hemodynamically significant Doppler findings. Lt Internal Carotid Artery: The plaque in the left internal carotid artery appears to be heterogeneous, calcified and irregular. Atherosclerotic changes of the left internal carotid artery without hemodynamically significant Doppler findings. <50% stenosis. Lt External Carotid Artery: Patent left external carotid artery with evidence of atherosclerotic disease present. Lt Vertebral Artery: The left vertebral artery is patent with antegrade flow. Provider Notification: Results called to Nanci Trujillo MD at 11:13am on 06-09-22. Conclusions: 1. The right internal carotid artery disease is consistent with a more than 70% stenosis. 2. Bidirectional flow is noted in the right vertebral artery. 3. The left internal carotid artery disease is consistent with a less than 50% stenosis. 4. Normal, antegrade flow is noted in the left vertebral artery. 5. Atherosclerotic changes of the right DISTAL common carotid artery with hemodynamically significant Doppler findings in the PROXIMAL portion. 6. No evidence of hemodynamically significant stenosis in the left common carotid artery. 7. Patent bilateral external carotid arteries with evidence of atherosclerotic plaque. History: 10/21/2019 s/p bypass from the aorta to the right axillary artery as well as a bifurcated bypass from the ascending aorta to the right common carotid artery and the left common carotid artery. Previous Studies: Previous carotid ultrasound on 05-27-21 JAIDEN 50-69% stenosis, LICA <50% stenosis, RT vertebral artery bidirectional. Disclaimer: The signing physician has reviewed all images pertaining to this test. These images and this report will be retained in the patient chart by the Vascular Laboratory for the legally required time period. This chart constitutes the legal record of any testing performed. Electronically Signed By: Surinder Cardenas MD [facility] 2022-06-09 22:16:53 CDT CC: CC: Procedure Note Surinder Cardenas MD - 06/09/2022 [facility] - Department of Vascular Surgery,Vascular Laboratory [address] [place] [address] Carotid Duplex Ultrasound Report Patient Name: SUMA SAENZPatient ID: [id number] : 1945 (76y 5m)Study Date: 06/09/2022 10:46:18 AM Gender: FAccession #: [id number] Tech: CGLocation: [facility] Ref.Provider: NANCI TRUJILLOQuality: Adequate Order Provider: NANCI TRUJILLOAccount #: [id number] Procedures: Carotid Report: Carotid duplex examination of the extracranial arterieswas performed using 2D, color and spectral Doppler. Indications: Encounter for Surgical Aftercare Following Surgery on the CirculatorySystem; Mini-Sternotomy, ascending aorta to right ax artery bypass with graft;ascending aorta to Dx: Encounter for surgical aftercare following surgery on the circulatorysystem [Z48.812 (ICD-10-CM)]. Measurements: Right Carotid Left Carotid Measurement Value Units Measurement ValueUnits RT Prox CCA PSV 154 cm/sec LT Prox CCA PSV 112cm/sec RT Prox CCA EDV 16 cm/sec LT Prox CCA EDV 12cm/sec RT Distal CCA PSV 96 cm/sec LT Distal CCA PSV 80cm/sec RT Distal CCA EDV 17 cm/sec LT Distal CCA EDV 15cm/sec RT Prox ICA PSV 265 cm/sec LT Prox ICA PSV 88cm/sec RT Prox ICA EDV 41 cm/sec LT Prox ICA EDV 13cm/sec RT Mid ICA PSV 110 cm/sec LT Mid ICA PSV 82cm/sec RT Mid ICA EDV 17 cm/sec LT Mid ICA EDV 17cm/sec RT Distal ICA PSV 89 cm/sec LT Distal ICA PSV 85cm/sec RT Distal ICA EDV 19 cm/sec LT Distal ICA EDV 20cm/sec RT ECA PSV 161 cm/sec LT ECA PSV 234cm/sec RT ICA/CCA 2.76 ratio LT ICA/CCA 1.10ratio RT VERT PSV 36 cm/sec LT VERT PSV 54cm/sec Measurement Value Units Measurement ValueUnits Right Carotid Left Carotid - Findings: Performing Document Control Associate: Ambika Mars RVT, RDMS. Rt Common Carotid Artery: The plaque in the right CCA appears to beheterogeneous, calcified and irregular. Atherosclerotic changes of the right DISTALcommon carotid artery with hemodynamically significant Doppler findings in the PROXIMALportion; elevated peak systolic velocity as above. Rt Internal Carotid Artery: The plaque in the right internal carotidartery appears to be heterogeneous, calcified and irregular. Significant atheroscleroticchanges of the right internal carotid artery with elevated peak systolic velocity and enddiastolic velocity, as above. >70% stenosis. Rt External Carotid Artery: Patent right external carotid artery withevidence of atherosclerotic disease present. Rt Vertebral Artery: Bidirectional flow in the right vertebral arterymaybe consistent with ipsilateral subclavian artery stenosis or occlusion. Lt Common Carotid Artery: The plaque in the left CCA appears to beheterogeneous, calcified and irregular in the distal portion. Atherosclerotic changes ofthe left common carotid artery with no hemodynamically significant Doppler findings. Lt Internal Carotid Artery: The plaque in the left internal carotid arteryappears to be heterogeneous, calcified and irregular. Atherosclerotic changes of theleft internal carotid artery without hemodynamically significant Doppler findings. <50%stenosis. Lt External Carotid Artery: Patent left external carotid artery withevidence of atherosclerotic disease present. Lt Vertebral Artery: The left vertebral artery is patent with antegradeflow. Provider Notification: Results called to Nanci Trujillo MD at 11:13amon 06-09-22. Conclusions: 1. The right internal carotid artery disease is consistent with a morethan 70% stenosis. 2. Bidirectional flow is noted in the right vertebral artery. 3. The left internal carotid artery disease is consistent with a less than50% stenosis. 4. Normal, antegrade flow is noted in the left vertebral artery. 5. Atherosclerotic changes of the right DISTAL common carotid artery withhemodynamically significant Doppler findings in the PROXIMAL portion. 6. No evidence of hemodynamically significant stenosis in the left commoncarotid artery. 7. Patent bilateral external carotid arteries with evidence ofatherosclerotic plaque. History: 10/21/2019 s/p bypass from the aorta to the right axillary arteryas well as a bifurcated bypass from the ascending aorta to the right common carotidartery and the left common carotid artery. Previous Studies: Previous carotid ultrasound on 05-27-21 JAIDEN 50-69%stenosis, LICA <50% stenosis, RT vertebral artery bidirectional. Disclaimer: The signing physician has reviewed all images pertaining tothis test. These images and this report will be retained in the patient chart by theVascular Laboratory for the legally required time period. This chart constitutes the legalrecord of any testing performed. Electronically Signed By: Surinder Cardenas MD [facility] 2022-06-09 22:16:53 CDT CC: CC: Nanci Trujillo MD IM US PROCEDURES Final R esult documented in this encounter Visit Diagnoses Diagnosis Encounter for surgical aftercare following surgery on the circulatory system documented in this encounter Care Teams Audio Video Tech Relationship Specialty Start Date End Date Abbe Nails MD [address] [address] PCP - General 11/03/19 06/30/22 Nanci Trujillo MD Surgeon Vascular Surgery 10/12/19 Azar Lara MD Surgeon Cardiothoracic Surgery 10/27/19 documented as of this encounter
--- OUTSIDE RECORDS SUMMARY | 2024-09-08 08:22 | XMS_ITS | Encounter Summary ---
Author Organization [facility] Address [address] [place] [address] Care Team Providers Care Satellite Installer Name Role Phone Zachary Giron MD Unavailable Azar Lara MD Unavailable Abbe Nails MD Primary Care Provider [phone] Reason for Visit * Reason Comments Syncope Carotid Artery Disease annual f/u Encounter Details Date Type Department Care Team (Latest Contact Info) Description 08/14/2021 3:00 PM HAZARDOUS MATERIALS DRIVER Office Visit [facility] Cardiology [address] [place] [address] Marco A Antoine MD [address] [facility] [address] [place], [place] [id number] Aortic valve insufficiency, etiology of cardiac valve disease unspecified (Primary Dx); Labile hypertension; Mixed hyperlipidemia; Carotid artery disease (CMS/HCC) (HCC); Stenosis of brachiocephalic artery (CMS/HCC) (HCC); History [...] on file Legal Sex Female 3:40 AM HAZARDOUS MATERIALS DRIVER Gender Identity Not on file Sexual Orientation Not on file documented as of this encounter Last Filed Vital Signs Vital Sign Reading Time Taken Comments Blood Pressure 120/60 08/14/2021 3:08 PM HAZARDOUS MATERIALS DRIVER Pulse 60 08/14/2021 3:08 PM HAZARDOUS MATERIALS DRIVER Temperature - - Respiratory Rate - - Oxygen Saturation 98% 08/14/2021 3:08 PM HAZARDOUS MATERIALS DRIVER Inhaled Oxygen Concentration - - Weight 85.7 kg (189 lb) 08/14/2021 3:08 PM HAZARDOUS MATERIALS DRIVER Height 170.2 cm (5' 7 ) 08/14/2021 3:08 PM HAZARDOUS MATERIALS DRIVER Body Mass Index 29.6 08/14/2021 3:08 PM HAZARDOUS MATERIALS DRIVER documented in this encounter Progress Notes * Marco A Antoine MD - 08/14/2021 3:00 PM [facility]ST [facility] DATE OF VISIT: 08/14/2021 CHIEF COMPLAINT Chief Complaint Patient presents with ??? Syncope ??? Carotid Artery Disease annual f/u HPI Suma Saenz is a 75 y.o. 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 07/04/1604/01 MRI no CVA. 04/02 Cerebral angiogram 04/03 new multiple small foci c/w tiny infarcts. Seeing Vasc at [facility]. Passed out after procdure with Dr. Steven [...] 02/18/[address] scan, repeat doppers at [facility]. Notes occ vision problems, occ dizziness improved [...] gets exceptionally tired. Still seeing Vascular at [facility] recommended ongoing observation and evaluation. 09/27/18 Off [...] EMS noted initial HR 40bpm went to [place], no clear issues, CT head negative. SBP>200mmHg,HR [...] no real dizziness. No CP, palps, bleeding. MEDICAL HISTORY Past Medical History: Diagnosis Date ??? Anxiety ??? Back pain ??? Carotid stenosis ??? Degenerative disc disease at L5-S1 level ??? Depression ??? Orthostatic hypotension ??? Syncope 10/18/2019 Social History Tobacco Use [...] cardiac disorder - (Added by TW Conv) MEDICATIONS HOME MEDICATIONS : acetaminophen 500 mg capsule allopurinoL (ZYLOPRIM) 100 mg tablet amLODIPine (NORVASC) 10 mg tablet aspirin 325 mg tablet atorvastatin (LIPITOR) 80 mg tablet biotin 10,000 mcg capsule buPROPion XL (WELLBUTRIN XL) 150 mg 24 hr tablet carvediloL (COREG) 25 mg tablet cetirizine (ZyrTEC) 10 mg tablet hydroCHLOROthiazide (HYDRODIURIL) 25 mg tablet Lactobacillus acidophilus capsule lisinopriL (PRINIVIL,ZESTRIL) 10 mg tablet medical cannabis each mesalamine (PENTASA) 250 mg CR capsule montelukast (SINGULAIR) 10 mg tablet oxyCODONE (ROXICODONE) 5 mg immediate release tablet bisacodyL (DULCOLAX) 10 mg suppository camphor-menthol (SARNA) lotion clindamycin (CLEOCIN) 300 mg capsule doxycycline (ADOXA) 50 mg tablet ondansetron ODT (ZOFRAN-ODT) 4 mg disintegrating tablet polyethylene glycol (MIRALAX) 17 gram packet senna-docusate (Senna Plus) 8.6-50 mg ALLERGIES Allergies Allergen Reactions ??? Naproxen Rash [...] not nervous/anxious. Allergic/Immunologic: Negative for environmental allergies. PHYSICAL EXAM Vitals BP 120/60 (BP Location: Left arm, Patient Position: Sitting) Pulse 60 Ht 170.2 cm (5' 7 ) Wt 85.7 kg (189 lb) SpO2 98% BMI 29.60 kg/m?? Weight: 85.7 kg (189 lb) Height: 170.2 cm (5' 7 ) Body mass index is 29.6 kg/m??. Physical Exam Vitals reviewed. Constitutional: General: She is not in acute distress. Appearance: She is well-developed. She is not diaphoretic. HENT: Head: Normocephalic and atraumatic. Right Ear: External ear normal. Left Ear: External ear normal. Nose: Nose normal. Mouth/Throat: Dentition: Normal dentition. Eyes: General: Lids are normal. No scleral icterus. Conjunctiva/sclera: Conjunctivae normal. Neck: Thyroid: No thyromegaly. Vascular: Normal carotid pulses. No carotid bruit, hepatojugular reflux or JVD. Trachea: No tracheal deviation. Comments: bilat carotid bruits Cardiovascular: Rate and Rhythm: Normal rate and regular rhythm. Pulses: Intact distal pulses. Carotid pulses are 1+ on the right side and 1+ on the left side with bruit. Radial pulses are 1+ on the right side and 2+ on the left side. Heart sounds: S1 normal and S2 normal. Heart sounds not distant. Murmur heard. High-pitched midsystolic murmur is present with a grade of 3/6. Probable transmitted from brachicephalic stenosis No friction [...] known visit with results is: Admission on 10/31/2019, Discharged on 11/04/2019 Component Date Value Ref Range Status ??? WBC 10/31/2019 11.2* 3.8 - 9.9 K/cumm Final ??? Hgb 10/31/2019 9.1* 11.9 - 15.5 g/dL Final ??? Hct 10/31/2019 28.4* 35.6 - 45.5 % Final ??? Plt 10/31/2019 447* 150 - 400 K/cumm Final ??? MPV 10/31/2019 9.2 9.1 - 12.3 fL Final ??? RBC 10/31/2019 2.94* 3.90 - 5.20 M/cumm Final ??? MCV 10/31/2019 96.6* 81.3 - 96.4 fL Final ??? MCH 10/31/2019 31.0 27.1 - 33.3 pg Final ??? MCHC 10/31/2019 32.0* 32.3 - 35.7 g/dL Final ??? RDW CV 10/31/2019 15.1* 11.1 - 14.9 % Final ??? RDW SD 10/31/2019 52.7* 35.7 - 48.1 fL Final ??? NRBC abs 10/31/2019 0.00 0.00 - 0.01 K/cumm Final ??? Sodium 10/31/2019 138 135 - 145 mmol/L Final ??? Potassium, pl 10/31/2019 4.8 3.3 - 4.9 mmol/L Final ??? Chloride 10/31/2019 104 97 - 110 mmol/L Final ??? CO2 10/31/2019 25 22 - 32 mmol/L Final ??? Anion gap 10/31/2019 9 2 - 15 mmol/L Final ??? BUN 10/31/2019 11 8 - 25 mg/dL Final ??? Creatinine 10/31/2019 0.70 0.60 - 1.10 mg/dL Final ??? Glucose 10/31/2019 108 70 - 199 mg/dL Final ??? Calcium 10/31/2019 9.1 8.5 - 10.3 mg/dL Final ??? aPTT 10/31/2019 34 25 - 37 sec Final ??? PT 10/31/2019 12.1 8.6 - 13.0 sec Final ??? INR 10/31/2019 1.1 0.8 - 1.2 Final ? ? Troponin I 10/31/2019 <0.03 0.00 - 0.03 ng/mL Final ? ? NT-proBNP 10/31/2019 973* <=300 pg/mL Final ??? Neutrophil abs 10/31/2019 8.5* 1.7 - 6.5 K/cumm Final ??? Imm gran abs 10/31/2019 0.2* 0.0 - 0.1 K/cumm Final ??? Lymphocyte abs 10/31/2019 1.6 0.8 - 3.3 K/cumm Final ??? Monocyte abs 10/31/2019 0.8 0.2 - 0.8 K/cumm Final ??? Eosinophil abs 10/31/2019 0.1 0.0 - 0.5 K/cumm Final ??? Basophil abs 10/31/2019 0.0 0.0 - 0.1 K/cumm Final ??? Neutrophil pct 10/31/2019 76.3 % Final ??? Imm gran pct 10/31/2019 1.8 % Final ??? Lymphocyte pct 10/31/2019 14.1 % Final ??? Monocyte pct 10/31/2019 6.8 % Final ??? Eosinophil pct 10/31/2019 0.7 % Final ??? Basophil pct 10/31/2019 0.3 % Final ??? WBC 11/01/2019 10.5* 3.8 - 9.9 K/cumm Final ??? Hgb 11/01/2019 8.4* 11.9 - 15.5 g/dL Final ??? Hct 11/01/2019 25.2* 35.6 - 45.5 % Final ??? Plt 11/01/2019 479* 150 - 400 K/cumm Final ??? MPV 11/01/2019 8.8* 9.1 - 12.3 fL Final ??? RBC 11/01/2019 2.63* 3.90 - 5.20 M/cumm Final ??? MCV 11/01/2019 95.8 81.3 - 96.4 fL Final ??? MCH 11/01/2019 31.9 27.1 - 33.3 pg Final ??? MCHC 11/01/2019 33.3 32.3 - 35.7 g/dL Final ??? RDW CV 11/01/2019 15.1* 11.1 - 14.9 % Final ??? RDW SD 11/01/2019 51.7* 35.7 - 48.1 fL Final ??? NRBC abs 11/01/2019 0.00 0.00 - 0.01 K/cumm Final ??? Sodium 11/01/2019 136 135 - 145 mmol/L Final ??? Potassium, pl 11/01/2019 4.2 3.3 - 4.9 mmol/L Final ??? Chloride 11/01/2019 103 97 - 110 mmol/L Final ??? CO2 11/01/2019 23 22 - 32 mmol/L Final ??? Anion gap 11/01/2019 10 2 - 15 mmol/L Final ??? BUN 11/01/2019 11 8 - 25 mg/dL Final ??? Creatinine 11/01/2019 0.76 0.60 - 1.10 mg/dL Final ??? Glucose 11/01/2019 155 70 - 199 mg/dL Final ??? Calcium 11/01/2019 8.6 8.5 - 10.3 mg/dL Final ??? ABO Rh 11/01/2019 O Positive Final ??? Mara, indirect 11/01/2019 Negative Final ??? Phosphorus, pl 11/01/2019 3.9 2.3 - 4.5 mg/dL Final ??? Ventricular Rate EKG/Min 10/31/2019 68 BPM Final ??? Atrial Rate 10/31/2019 68 BPM Final ??? KS-Interval (MSEC) 10/31/2019 150 ms Final ??? QRS-Interval (MSEC) 10/31/2019 96 ms Final ??? QT-Interval (MSEC) 10/31/2019 406 ms Final ??? QTc 10/31/2019 431 ms Final ??? P [place] 10/31/2019 44 degrees Final ??? R [place] 10/31/2019 23 degrees Final ??? T [place] 10/31/2019 41 degrees Final ??? Diagnosis 10/31/2019 Final Value:Normal sinus rhythm Nonspecific ST abnormality Abnormal ECG When compared with ECG of 24-OCT-2019 20:21, Premature ventricular complexes are no longer Present ST no longer elevated in Inferior leads Non-specific change in ST segment in Anterior leads ST more depressed in Lateral leads T wave inversion no longer evident in Inferior leads T wave inversion no longer evident in Lateral leads Confirmed by PAT CORRIGAN M.D ([id number]) on 11/21/2019 3:25:10 PM ??? Glucose, POC 10/31/2019 117 70 - 199 mg/dL Final ??? Color, ur 11/01/2019 Yellow Yellow Final ??? Clarity, ur 11/01/2019 Clear Clear Final ??? Specific gravity, ur 11/01/2019 1.019 1.010 - 1.025 Final ??? pH, urine 11/01/2019 8 Final ??? Protein, ur ql 11/01/2019 Negative Negative Final ??? Glucose, ur ql 11/01/2019 Negative Negative Final ??? Ketones, ur 11/01/2019 Trace Negative Final ??? Bilirubin, ur 11/01/2019 Negative Negative Final ??? Blood, ur 11/01/2019 Negative Negative Final ? ? Urobilinogen, ur 11/01/2019 <2.0 <2.0 mg/dL Final ??? Nitrite, ur 11/01/2019 Positive* Negative Final ??? Leukocyte esterase, ur 11/01/2019 3+* Negative Final ??? UA reflex comment 11/01/2019 Reflex to microscopic UA will be performed. Final ??? Potassium, bld 11/01/2019 3.7 3.3 - 4.9 mmol/L Final ??? pH, Art 11/01/2019 7.46* 7.35 - 7.45 Final ??? PCO2, Arterial 11/01/2019 31* 35 - 45 mmHg Final ??? PO2, Arterial 11/01/2019 78* 83 - 108 mmHg Final ??? HCO3 Art (Calculated) 11/01/2019 22 20 - 30 mmol/L Final ??? BE, art 11/01/2019 -2 mmol/L Final ??? O2 Sat Art (Measured) 11/01/2019 95 90 - 95 % Final ??? Report 11/01/2019 Final Value:Final Report: Negative ??? WBC, ur 11/01/2019 21-50* 0 - 5 /HPF Final ??? RBC, ur 11/01/2019 0-2 0 - 2 /HPF Final ??? Epithelial cells, squamous, ur 11/01/2019 1-5 0 - 5 /HPF Final ??? Bacteria, ur 11/01/2019 1+* Final ??? Culture Reflex Comment 11/01/2019 Reflex to urine culture will be performed. Final ??? Report 11/01/2019 * Final Value:Final Report: Greater than or equal to 100,000 colonies/mL of Proteus mirabilis ??? Organism 11/01/2019 PROTEUS MIRABILIS Final ??? Cholesterol 11/01/2019 74 30 - 199 mg/dL Final ? ? Triglycerides 11/01/2019 266* <=149 mg/dL Final ? ? HDL 11/01/2019 30* >=40 mg/dL Final ? ? LDL, calculated 11/01/2019 <1 <=129 mg/dL Final ??? Non-HDL Cholesterol 11/01/2019 44 mg/dL Final ??? Chol/HDL ratio 11/01/2019 2 Final ??? Report 11/02/2019 Final Value:Final Report: Negative ??? Glucose, POC 11/02/2019 114 70 - 199 mg/dL Final ??? Glucose, POC 11/03/2019 128 70 - 199 mg/dL Final ??? Glucose, POC 11/03/2019 113 70 - 199 mg/dL Final ??? Glucose, POC 11/04/2019 137 70 - 199 mg/dL Final ??? Glucose, POC 11/04/2019 115 70 - 199 mg/dL Final 05/23/2019 CTA Head/Neck: IMPRESSION: ?? 1. Severe right innominate stenosis resulting in [...] to assess the given associated streak artifact. ?? 2. Persistent focal occlusion of the left V2/V3 segment at the level of C2 with distal reconstitution of the V4 segment. ?? 3. Approximately 52% (+/- 10%) stenosis of the right proximal ICA, though evaluation is limited by decreased flow and calcified atherosclerosis. ?? 4. Less than 50% left ICA stenosis. ?? 5. 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 BP better controlled and more stable goal less than 140/90 mm Hg. Monitor BP on routine basis. Call with readings. Continue consistent cardiovascular exercise, weight loss, medication compliance, and low-sodium diet. -continue amlodipine 10 mg daily, hydrochlorothiazide 25 mg daily, lisinopril 10 mg daily, carvedilol 25 mg twice daily 2. Avoid excessive hypotension given vertebrobasilar insufficiency and uncontrolled hypertension. Tolerating current medical therapy. -Monitor personally reviewed no recurrent episodes but no concerning tachy or rudolph arrhythmia. 3. Follow-up as scheduled with vascular surgery as scheduled history of R innominate artery stenosis concerning given sxs. Recent doppler unchanged moderate severity observation recommended. 4. Aggressive atherosclerotic risk reduction given carotid arterial stenosis albeit moderate in severity. Continue aspirin 325 mg daily. Defer to Vascular re antiplatelet at this time given her surgical history. 5. Caution with ambulation rise slowly from a seated position to avoid risk for falls and injuries.Notify office with any additional questions or concerns. 6. Lifestyle modification counseling performed. Weight loss, exercise, reduction in caloric intake. 7. Lipids personally reviewed in office 08/14/21 LDL 42, very well controlled goal LDL less than 70.Continue atorvastatin 80 mg at bedtime and lifestyle modification. 8. Etiology of syncope unclear, however, concerning for bradyarrhythmia -30 day tele monitor personally reviewed and discussed, no contributing arrhythmias but no recurrent syncope, either. Progression of stenotic disease on CTA head/neck likely contribution but cannot state definitively the only contributing factor. Await Dr. Giron's opinion in this regard. -No driving until advised. Pt and counseled, they verbalized understanding and agreed to comply with plan of care. -12 lead EKG today personally reviewed and discussed SR PVC's baseline artifact 63bpm KS 172msec QRS 108msec QTc 444msec Over 50% of this visit counseling carotid disease, HTN, lipids, medications, lifestyle modification. Follow up in the office in 6 months or sooner as needed. Thank you for allowing me the privilege of participating in the care this very pleasant patient. Please do not hesitate to contact me with any additional questions or concerns. Karlene Antoine MD, FACC RDOUS MATERIALS DRIVER documented in this encounter Plan of Treatment Not on file documented as of this encounter Procedures Procedure Name Priority Date/Time Associated Diagnosis Comments POCT LIPID PANEL Routine 08/14/2021 4:05 PM HAZARDOUS MATERIALS DRIVER Carotid artery disease (CMS/HCC) (HCC) Mixed hyperlipidemia ECG 12-LEAD Routine 08/14/2021 Carotid artery disease (CMS/HCC) (HCC) Labile hypertension documented in this encounter Results * POCT lipid panel (08/14/2021 4:05 PM HAZARDOUS MATERIALS DRIVER) Cholesterol, POC 126 mg/dL HDL, POC 60 mg/dL Triglycerides, POC 124 mg/dL LDL Cholesterol POC 42 mg/dL Chol/HDL Ratio, POC 2.1 Non-HDL Cholesterol, POC 66 mg/dL Cholesterol Total, POC 126 mg/dL Capillary blood 08/14/2021 4 :05 PM HAZARDOUS MATERIALS DRIVER us Marco A Antoine MD POINT OF CARE TEST ORDER EDD Final Result * ECG 12 lead (08/14/2021) us Marco A Antoine MD ECG ORDERABLES Edited R esult - Final documented in this encounter Visit Diagnoses Diagnosis Aortic valve insufficiency, etiology of cardiac valve disease unspecified- Primary Labile hypertension Mixed hyperlipidemia Carotid artery disease (HCC) Unspecified disorders of arteries and arterioles 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 History of ischemic left MCA stroke Status post carotid surgery Other postprocedural status documented in this encounter Discontinued Medications Medication Sig Discontinue Reason Start Date End Da te bisacodyL (DULCOLAX) 10 mg suppositoryIndications: constipation Insert 1 suppository (10 mg total) into the rectum daily as needed for constipation Therapy completed 11/04/2019 08/14/2021 camphor-menthol (SARNA) lotion Apply topically every 6 (six) hours as needed for irritation, itching or dry skin Avoid incision sites Therapy completed 10/27/2019 08/14/2021 clindamycin (CLEOCIN) 300 mg capsule Therapy completed 02/18/2021 08/14/2021 doxycycline (ADOXA) 50 mg tablet Take 50 mg by mouth 2 (two) times a day. Therapy completed 08/14/2021 ondansetron ODT (ZOFRAN-ODT) 4 mg disintegrating tablet Take 1 tablet (4 mg total) by mouth every 8 (eight) hours as needed for nausea or vomiting Therapy completed 10/27/2019 08/14/2021 polyethylene glycol (MIRALAX) 17 gram packetIndications:const ipation Take 1 packet (17 g total) by mouth daily as needed for constipation Therapy completed 11/04/2019 08/14/2021 senna-docusate (Senna Plus) 8.6-50 mg Take 1-2 tablets by mouth 2 (two) times a day as needed for constipation Therapy completed 11/04/2019 08/14/2021 documented as of this encounter Care Teams Satellite Installer Relationship Specialty Start Date End Date Abbe Nails MD [address] [place] [id number] PCP - General 11/03/19 06/30/22 Zachary Giron MD Surgeon Vascular Surgery 10/12/19 Azar Lara MD Surgeon Cardiothoracic Surgery 10/27/19 documented as of this encounter
--- OUTSIDE RECORDS SUMMARY | 2024-09-08 08:22 | XMS_ITS | Encounter Summary ---
Author Organization [facility] [employer] [facility] Address [address] [place] [address] Phone Care Team Providers Care Salt Maker Name Role Phone Zachary Giron MD Unavailable [phone] Azar Lara MD Unavailable Abbe Nails MD Primary Care Provider [phone] Reason for Visit * Consultation (Routine) - Closed Specialty Diagnoses / Procedures Referred By Contac t Referred To Contact Neurology Diagnoses History of arterial ischemic stroke [facility] Scheduling [address] [place] [address] Phone: tel: [facility] (All Locations) Referral ID Status Reason Start Date Expiration Date V isits Requested Visits Authorized [id number] Closed Specialty Services Required 04/26/2021 05/26/2022 1 1 Encounter Details Date Type Department Care Team (Late st Contact Info) Description 05/10/2021 1:00 PM CDT Office Visit [facility] Stroke [address] [facility] [address] [place] [id number] Rianna Arredondo MD [address] [place] [address] History of ischemic left MCA stroke (Primary Dx); Hypertension, unspecified type; History of arterial ischemic stroke Social History Tobacco Use Types Packs/Day Years Used Date Smoking Tobacco: Former Cigarettes Smokeless Tobacco: Never Alcohol Use Standard Drinks/Week Comments Yes 0 (1 standard drink = 0.6 oz pur e alcohol) Comments Unknown Sex and Gender Information Value Date Recorded Sex Assigned at Not on file Legal Sex Female 3:40 AM STITCHER SPECIAL MACHINE Gender Identity Not on file Sexual Orientation Not on file documented as of this encounter Last Filed Vital Signs Vital Sign Reading Time Taken Comments Blood Pressure 150/63 05/10/2021 12:35 PM CDT Pulse 64 05/10/2021 12:35 PM CDT Temperature 35.8 ??C (96.4 ??F) 05/10/2021 12:35 PM C DT Respiratory Rate - - Oxygen Saturation - - Inhaled Oxygen Concentration - - Weight 86.7 kg (191 lb 3.2 oz) 05/10/2021 12:35 PM CDT Height 170.2 cm (5' 7 ) 05/10/2021 12:35 PM CDT Body Mass Index 29.95 05/10/2021 12:35 PM CDT documented in this encounter Progress Notes * Rianna Arredondo MD - 05/10/2021 12:00 AM CDT REASON FOR VISIT: Ms. Saenz is a 75-year-old right-handed woman, here for follow-up of bihemispheric ischemic strokes. HISTORY OF PRESENT ILLNESS: Since her last visit, the patient reports that she is staying busy during the pandemic with her dog. She reports that her blood pressure at home averages about 120/50 over the past 6 weeks. She also reports that she has been noticing more edema of her legs that seems to be worse on the right compared to the left. She states she has not discussed the swelling with her PCP yet. She denies new episodes of weakness, numbness, vision loss, difficulty speaking, or difficulty ambulating. She is performing all ADLs at home. ALLERGIES: NAPROXEN, PENICILLIN, SULFA. CURRENT MEDICATIONS: Reviewed in [facility] and with the patient. PAST MEDICAL, FAMILY, SOCIAL HISTORY: Reviewed in [facility] and with the patient. REVIEW OF SYSTEMS: All other systems negative except as per HPI. PHYSICAL EXAMINATION: VITAL SIGNS: Blood pressure 150/63, pulse 64, weight 191 pounds. GENERAL: The patient is well-dressed and well-groomed, in no apparent distress. NEUROLOGICAL EXAMINATION: MENTAL STATUS: Awake and alert, with fluent speech and intact comprehension. Attention is normal. Recent and remote memory are intact. Fund of knowledge is normal. GAIT: This is narrow based, with normal heel and toe walks. CRANIAL NERVES: Visual corcoran are full to bedside confrontation. There is no ptosis. Extraocular movements are conjugate, without nystagmus. Facial movements are symmetric. Speech is clear, without dysarthria or dysphonia. Tongue protrusion is midline. MOTOR: There is no fix or pronator drift. Power is 5/5 proximally and distally in all extremities. Bulk and tone are normal. COORDINATION: This is intact to [id number] and rapid alternating movements throughout. REFLEXES: These are 2 and symmetric at the biceps, triceps, brachioradialis, knees, and ankles. ASSESSMENT: 1. History of bihemispheric ischemic strokes. 2. Hypertension. PLAN: 1. PCP should continue efforts to maintain blood pressure less than 130/80 in accordance with current guidelines. 2. PCP should continue high-intensity statin therapy in accordance with 2018 guidelines, with LDL goal less than 70. 3. The patient should continue aspirin daily for stroke prevention. 4. She is currently on dual antiplatelet therapy, presumably for her other vascular disease. 5. I would like to see the patient back in my clinic in approximately 12 months in order to review symptom pattern and determine if additional medical management or diagnostic testing are necessary at that time. Thank you for allowing me to participate in the care of this patient. Please do not hesitate to contact me with additional questions or concerns. ELECTRONICALLY SIGNED - 05/17/2021 10:25 AM Rianna Arredondo MD Professor of Neurology [facility] RV/ps documented in this encounter Plan of Treatment Not on file documented as of this encounter Visit Diagnoses Diagnosis History of ischemic left MCA stroke- Primary Hypertension, unspecified type History of arterial ischemic stroke Transient ischemic attack (TIA), and cerebral infarction without residual deficits documented in this encounter Historical Medications * This list may reflect changes made after this encounter. medical cannabis each Take 1 Dose by mouth nightly allopurinoL (ZYLOPRIM) 100 mg tabletIndications :prevention of acute gout attack Take 1 tablet (100 mg total) by mouth nightly 04/23/2021 clindamycin (CLEOCIN) 300 mg capsule 02/18/2021 08/14/2021 added in this encounter Orders Outpatient Referral Count Last Ordered Date Fir st Ordered Date AMB REFERRAL TO NEUROLOGY 1 05/10/2021 documented in this encounter Care Teams Salt Maker Relationship Specialty Start Date End Date Abbe Nails MD [address] [place] [address] PCP - General 11/03/19 06/30/22 Zachary Giron MD Surgeon Vascular Surgery 10/12/19 Azar Lara MD Surgeon Cardiothoracic Surgery 10/27/19 documented as of this encounter
--- OUTSIDE RECORDS SUMMARY | 2024-09-08 08:22 | XMS_ITS | Encounter Summary ---
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 documented in this encounter Plan of Treatment Not on file documented as of this encounter Visit Diagnoses Not on filedocumented in this encounter Care Teams Windows Desktop Engineer Relationship Specialty Start Date End Date Perez Alexander DO [address] [place] [address] PCP - General Family Medicine 07/01/22 Zachary Giron MD Surgeon Vascular Surgery 10/12/19 Azar Lara MD Surgeon Cardiothoracic Surgery 10/27/19 documented as of this encounter
--- OUTSIDE RECORDS SUMMARY | 2024-09-08 08:22 | XMS_ITS | Encounter Summary ---
Author Organization [facility] Address [address] [place] [address] Phone Care Team Providers Care Gill Box Tender Name Role Phone Zachary Giron MD Unavailable [phone] Azar Lara MD Unavailable Abbe Nails MD Primary Care Provider [phone] Reason for Visit * Reason Comments Follow-up * Consultation (Routine) - Closed Specialty Diagnoses / Procedures Referred By Khadijah t Referred To Contact Neurology Diagnoses History of arterial ischemic stroke Abbe Nails MD Phone: tel: fax: [facility] (All Locations) Referral ID Status Reason Start Date Expiration Date V isits Requested Visits Authorized [id number] Closed Specialty Services Required 03/26/2020 04/25/2021 1 1 Encounter Details Date Type Department Care Team (Late st Contact Info) Description 05/11/2020 2:30 PM CDT Office Visit [facility] Stroke [address] 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 Gender Identity Not on file Sexual Orientation Not on file documented as of this encounter Last Filed Vital Signs Vital Sign Reading Time Taken Comments Blood Pressure 154/61 05/11/2020 2:10 PM CDT Pulse 63 05/11/2020 2:10 PM CDT Temperature 36.4 ??C (97.6 ??F) 05/11/2020 2:10 PM CD T Respiratory Rate - - Oxygen Saturation - - Inhaled Oxygen Concentration - - Weight 79.5 kg (175 lb 3.2 oz) 05/11/2020 2:10 P M CDT Height 170.2 cm (5' 7 ) 05/11/2020 2:10 PM CDT Body Mass Index 27.44 05/11/2020 2:10 PM CDT documented in this encounter Patient Instructions * Patient Instructions* Shira Oneil MD - 05/11/2020 2:30 PM CDT 1. Good job taking your blood /+pressure every day and keeping that log. Keep it up! Remember, we like to see that top number be under 130. 2. Keep taking your aspirin and atorvastatin. 3. As always, let's see each other in a year. Remember, you can always call in with any questions or updates. documented in this encounter Progress Notes * Shira Oneil MD - 05/11/2020 2:30 PM CDT PATIENT NAME: Suma Saenz : 1945 BERTA: 05/11/2020 [facility], [place] [address] [place] [id number], , REASON FOR VISIT: Suma Saenz is a 74 y.o. 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 She presents today with her in follow up regarding her strokes. HISTORY OF PRESENT ILLNESS: Since her last visit, Ms. Saenz has undergone aorta to R axillary and R and L CCA bypasses (10/2019, Dr. Giron). Following that, she reports that her lightheadedness is gone. Her reports that she's better now than she has been in the last three and a half years. They are very happywith her current functioning. She does continue to have severe R ICA stenosis. Dr. Giron recommended non-operative management in the setting of her recent bypass and Crohn's flare (see below), with plan to re-assess in 10/2020. She continues on ASA 325 and atorvastatin 80 and has no issue with either medication. She has had no new events concerning for cerebral ischemia, including no new weakness, numbness, or word-finding or speech difficulties. Her blood pressure is a little high in clinic today, but they report that this is white coat hypertension. She takes her pressure at home and it is under a goal systolic of 130. Unfortunately, Ms. Saenz had a Crohn's flare in 12/2019, necessitating resection of about 8 inches of small bowel. She feels that she has healed well from that episode as well. PAST MEDICAL HISTORY Past Medical History: Diagnosis Date ??? Anxiety ??? Back pain ??? Carotid stenosis ??? Degenerative disc disease at L5-S1 level ??? Depression ??? Ischemic embolic stroke (CMS/HCC) 07/04/2016 Cerebrovascular accident (CVA) due to embolism of cerebral artery ??? Orthostatic hypotension ??? Syncope 10/18/2019 Patient Active Problem List Diagnosis ??? Dizziness ??? Stenosis of brachiocephalic artery (CMS/HCC) ??? Adiposity ??? Hypertension ??? Heart murmur ??? Non-specific colitis ??? Tobacco dependence in remission ??? Orthostatic hypotension ??? Mitral valve insufficiency ??? Carotid artery disease (CMS/HCC) ??? Dyslipidemia ??? Aortic valve insufficiency ??? Stenosis of carotid artery ??? History of ischemic left MCA stroke ??? Labile hypertension ??? Chronic back pain complicated by acute surgical pain ??? Acute blood loss anemia ??? Status post carotid surgery ??? Hematoma of chest wall, right, initial encounter ??? UTI (urinary tract infection) ??? Acute pain ??? 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 Naproxen Rash ??? Nsaids (Non-Steroidal Anti-Inflammatory Drug) Hives ??? Penicillins Rash ??? Sulfa (Sulfonamide Antibiotics) Rash CURRENT MEDICATIONS: Current Outpatient Medications Medication Sig Dispense Refill [...] oral route every day 0 0 ??? biotin 10,000 mcg capsule Take by mouth ??? bisacodyL (DULCOLAX) 10 mg suppository Insert [...] itching or dry skin Avoid incision sites (Patient not taking: Reported on 04/09/2020) 222 mL ??? carvediloL (COREG) 25 mg [...] Take 25 mg by mouth daily ??? Lactobacillus acidophilus capsule Take by mouth ??? lisinopriL (PRINIVIL,ZESTRIL) 10 mg tablet Take 1 tablet (10 mg total) by mouth daily 30 [id number] ??? mesalamine (PENTASA) 250 mg CR capsule Take 400 mg by mouth 4 (four) times a day ??? montelukast (SINGULAIR) 10 mg tablet take 1 tablet by oral route every day in the evening 0 0 ??? ondansetron ODT (ZOFRAN-ODT) 4 mg disintegrating tablet Take 1 tablet (4 mg total) by mouth every 8 (eight) hours as needed for nausea or vomiting (Patient not taking: Reported on 04/09/2020) 20 tablet 0 ??? oxyCODONE (ROXICODONE) 5 mg immediate release tablet Take 1 tablet (5 mg total) by mouth every 4 (four) hours as needed for pain (Patient not taking: Reported on 04/09/2020) 20 tablet 0 ??? polyethylene glycol (MIRALAX) 17 gram packet Take 1 packet (17 g total) by mouth daily as needed for constipation (Patient not taking: Reported on 04/09/2020) ??? senna-docusate (Senna Plus) 8.6-50 mg Take 1-2 tablets by mouth 2 (two) times a day as needed for constipation (Patient not taking: Reported on 04/09/2020) 20 tablet 0 No current facility-administered medications for this visit. FAMILY HISTORY: Reviewed in [employer] [facility]. SOCIAL HISTORY: Reviewed in [employer]. REVIEW OF SYSTEMS: All other systems negative except as per HPI and if listed here. PHYSICAL EXAMINATION: BP 154/61 (BP Location: Left arm, Patient Position: Sitting) Pulse 63 Temp 36.4 ??C (97.6 ??F) (Temporal) Ht 170.2 cm (5' 7 ) Wt 79.5 kg (175 lb 3.2 oz) BMI 27.44 kg/m?? GEN: female, appears stated age, sitting up comfortably in chair HEENT: NC/AT, MMM CV: regular rate and rhythm PULM: no increased work of breathing EXT: warm and well-perfused SKIN: warm and dry PSYCH: euthymic, good eye contact, appropriate groomed and dressed NEURO: -- COGNITION: A&Ox3 (to person, place, time), language fluent and without errors, repetition intact, naming intact -- CRANIAL NERVES: EOMI, face activates symmetrically, no dysarthria -- MOTOR: 5/5 strength in BUEs and BLEs -- SENSORY: intact and equal bilaterally to light touch throughout BUEs and BLEs -- REFLEXES: 2+ and symmetric bilaterally in biceps, patella -- GAIT: narrow-based and stable -- COORDINATION: FNF intact without ataxia bilaterally IMAGING: Results for orders placed or performed during the hospital encounter of 10/17/19 MRA Neck W WO Contrast Narrative EXAMINATION: Magnetic resonance imaging (MRI) of the brain and brainstem without and with contrast Magnetic resonance angiography (MRA) of the [id number]-Gjuxsd without and with contrast Magnetic resonance angiography (MRA) of the neck without and with contrast HISTORY: Right innominate artery stenosis. TECHNIQUE: Multiplanar multi-weighted MRI of the brain and brainstem was performed without and with intravenous contrast using the general brain protocol. Magnetic resonance angiography of the [id number]-cf-[id number] was performed using separate data set acquisitions including a non-contrast uagr-tr-tvknej technique and a post-contrast technique to produce axial thin-slice source images. Magnetic resonance angiography of the neck was performed using a non-contrast bknp-th-[id number] technique and a post-contrast technique to produce thin-slice source images. These images were then used to generate maximum intensity projection (MIP) images. Contrast information: 16 mL Dotarem COMPARISON: CTA 10/11/2019. FINDINGS: The scalp and calvarium are normal. The superior sagittal sinus demonstrates normal venous flow. The corpus callosum is normal in shape and signal intensity. The posterior fossa is unremarkable. The pituitary and sella are normal. The brainstem and craniocervical junction are unremarkable. Diffusion weighted images reveal no hyperintensities to suggest acute cerebral infarction. The susceptibility weighted sequences reveal no evidence of acute or chronic hemorrhage. The ventricles are normal in size and position without evidence of hydrocephalus. There are no areas of abnormal contrast enhancement. The paranasal sinuses are normal. The visualized portions of the mastoids are unremarkable. Bilateral lens replacements Normal flow voids are demonstrated in the carotid arteries and basilar artery. There is high-grade stenosis of the right innominate artery with decreased flow related signal within the right subclavian and right carotid arteries with decreased flow related signal within the intracranial right vertebral artery on [id number]-nl-[id number] images with subsequent enhancement compatible with slow flow. There is decreased flow related enhancement at the origin of the right vertebral artery which may be secondary to dominant stenosis or atherosclerotic disease of the right vertebral artery origin. Right vertebral artery is otherwise normal in course and caliber The right common carotid artery is otherwise normal in caliber. The left subclavian artery is normal in caliber. There is atherosclerotic disease of the right carotid bifurcation with approximately 50% stenosis at the right ICA. There is stenosis at the left common carotid artery origin. Left common carotid artery is otherwise normal in caliber. There is atherosclerosis of the left carotid bifurcation without hemodynamic significant stenosis. The left internal carotid artery is normal in course and caliber. There is multifocal stenosis and occlusion of the V2 segment of the left vertebral artery with reconstitution of the V3 segment via occipital and deep cervical artery collateral and mild multifocal irregularity of the left V4 segment. There is moderate stenosis of the cavernous segment of the right internal carotid artery. The supraclinoid right ICA is normal in caliber. The left intracranial ICA is tortuous and normal in caliber. The anterior and middle cerebral arteries appear normal. There are small bilateral posterior communicating arteries. The basilar artery is small in caliber. The posterior cerebral arteries appear normal. There is no soft tissue abnormality in the neck on limited imaging of the neck included in this MR angiogram. The included portions of the brain on this MR angiogram are unremarkable. Impression 1. Severe stenosis of the innominate artery with decreased antegrade flow within the right subclavian, vertebral, and right carotid arteries. Decreased flow related enhancement at the origin of the right vertebral artery which may be secondary to innominate stenosis or atherosclerotic disease at its origin. 2. 50% stenosis of the right proximal ICA. Moderate stenosis of the cavernous right ICA. 3. Multifocal atherosclerotic disease of the left vertebral artery with occlusion of the V2 segment and reconstitution via occipital and deep cervical artery collaterals. Multifocal atherosclerosis of the left V4 segment. 4. No acute intracranial abnormality. Dictated by: Harman Small M.D. The radiology attending physician has personally reviewed this study, and had reviewed and/or edited this written report and agrees with it. Electronically signed by: Dara Dawson M.D. ASSESSMENT/IMPRESSION: Suma Saenz is a 74 y.o. 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 She's doing well from a stroke perspective, with no new episodes concerning for repeat event. She underwent aorta to R axillary and R and L CCA bypasses with Dr. Giron and this seems to have been extremely beneficial for her. Her orthostatic hypotension and lightheadedness is much improved, and she overall feels more stable. PLAN: 1. Continue antiplatelet regimen per Vascular Surgery. From a stroke perspective, ASA 81 would be sufficient. 2. Continue atorvastatin 80 mg qday. 3. Continue taking BP at home, with a goal systolic < 130. 4. RTC in 1 year. --- Shira Oneil MD Vascular Neurology Fellow [facility] in [place] 05/14/2020, 2:48 PM Cosigned by Rylan Arredondo MD at 05/15/2020 10:00 AM CDT Associated attestation - Rylan Arredondo MD - 05/15/2020 10:00 AM CDT I have seen and examined the patient. I agree with the findings and plan of care as discussed with the resident/fellow. documented in this encounter Miscellaneous Notes * Addendum Note - Rylan Arredondo MD - 05/11/2020 2:30 PM CDTAddended by: RYLAN ARREDONDO on: 05/15/2020 10:00 AM Modules accepted: Level of Service documented in this encounter Plan of Treatment Not on file documented as of this encounter Visit Diagnoses Diagnosis History of arterial ischemic stroke- Primary Transient ischemic attack (TIA), and cerebral infarction without residual deficits Dizziness Dizziness and giddiness Essential hypertension Unspecified essential hypertension documented in this encounter Orders Outpatient Referral Count Last Ordered Date Fir st Ordered Date AMB REFERRAL TO NEUROLOGY 1 05/11/2020 documented in this encounter Care Teams Gill Box Tender Relationship Specialty Start Date End Date Abbe Nails MD [address] [place] [id number] PCP - General 11/03/19 06/30/22 Zachary Giron MD Surgeon Vascular Surgery 10/12/19 Azar Lara MD Surgeon Cardiothoracic Surgery 10/27/19 documented as of this encounter
--- OUTSIDE RECORDS SUMMARY | 2024-09-08 08:22 | XMS_ITS | Encounter Summary ---
Author Organization [facility] Address [address] [facility] [address] [place] [address] Phone Care Team Providers Care Manager Imaging Name Role Phone Zachary Giron MD Unavailable Azar Lara MD Unavailable Abbe Nails MD Primary Care Provider [phone] Encounter Details Date Type Department Care Team (Late st Contact Info) Description 11/25/2019 Documentation [facility] Surgery [address] [facility] [address]th [place] [address] [place] [address] Beulah Morse NP [address] [facility] [id number] [place] [address] Social History Tobacco Use Types Packs/Day Years Used Date Smoking Tobacco: Former Cigarettes Smokeless Tobacco: Never Alcohol Use Standard Drinks/Week Comments Yes 0 (1 standard drink = 0.6 oz pur e alcohol) Comments Unknown Sex and Gender Information Value Date Recorded Sex Assigned at Not on file 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 She underwent a aortic arch reconstruction with multiple branch-graft technique with 6 mm Lamar-Jaime graft fromthe aorta to the right axillary artery, bifurcated 8 mm to 6 mm graft from the ascending aorta to the right common carotid artery, and the left common carotid artery on 10/21/[address] Lara and Dr. Giron. ??She reports doing fine. She has no cardiovascular complaints. She reports her blood pressure has been under control. She is increasing her walking. Her only complaint is gastrointestinal discomfort. She reports she has been evaluated by her primary care and is being treated for a possible ulcer. She reports all of her incisions are closed and healing without any redness swelling or drainage. She has been in contact with Dr. Giron office and will be sending photos of her incisions. We will review them. She understands we are cancelling her appointment on November 30. She will call if she hasany problems or issues in the interim. documented in this encounter Plan of Treatment Not on file documented as of this encounter Visit Diagnoses Not on filedocumented in this encounter Care Teams Manager Imaging Relationship Specialty Start Date End Date Abbe Nails MD [address] [place] [address] PCP - General 11/03/19 06/30/22 Zachary Giron MD Surgeon Vascular Surgery 10/12/19 Azar Lara MD Surgeon Cardiothoracic Surgery 10/27/19 documented as of this encounter
--- OUTSIDE RECORDS SUMMARY | 2024-09-08 08:22 | XMS_ITS | Encounter Summary ---
Author Organization [facility] Definition 6 of [facility] Address [address] [place] [address] Phone Care Team Providers Care Corporate Training Manager Name Role Phone Nanci Trujillo MD Unavailable [phone] Azar Lara MD Unavailable Abbe Nails MD Primary Care Provider [phone] Reason for Visit * Diagnostic Imaging (Routine) - Closed Specialty Diagnoses / Procedures Referred By Contac t Referred To Contact Vascular Surgery Diagnoses Encounter for surgical aftercare following surgery on the circulatory system Procedures US Carotids Duplex Bilateral Nanci Trujillo MD Phone: tel: fax: [facility] Surgery [address] [facility] 8th [place] [address] [place] [address] Phone: tel: fax: Referral ID Status Reason Start Date Expiration Date Visits Re quested Visits Authorized [id number] Closed 04/09/2020 05/09/2021 1 1 Encounter Details Date Type Department Care Team (Latest Contact Info) Description 05/27/2021 11:00 AM CDT Ancillary Procedure [facility] Vascular Lab at the [facility] [address] 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 Gender Identity Not on file Sexual Orientation Not on file documented as of this encounter Plan of Treatment Not on file documented as of this encounter Procedures Procedure Name Priority Date/Time Associated Diagnosis Comments US CAROTIDS DUPLEX BILATERAL Schedule Routine, Read Routine (OP Routine) 05/27/2021 11:47 AM CDT Encounter for surgical aftercare following surgery on the circulatory system documented in this encounter Results * US Carotids Duplex Bilateral (05/27/2021 11:47 AM CDT) Anatomical Region Laterality Modality Vascular Bilateral Ultrasound 05/27/2021 11:1 1 AM CDT Narrative 05/27/2021 9:05 PM CDT [facility] - Department of Vascular Surgery, Vascular Laboratory [address] [place] [address] Carotid Duplex Ultrasound Report Patient Name: SUMA SAENZ K : 1945 (75y 4m) Study Date: 05/27/2021 11:11:23 AM Gender: F Tech: Location: [facility] Ref.Provider: NANCI TRUJILLO Quality: Adequate Order Provider: NANCI TRUJILLO Procedures: Carotid Report: Carotid duplex examination of the extracranial arteries was performed using 2D, color and spectral Doppler. Indications: Encounter for Surgical Aftercare Following Surgery on the Circulatory System Dx: Encounter for surgical aftercare following surgery on the circulatory system [Z48.812 (ICD-10-CM)]. Measurements: Right Carotid ? Left Carotid ? Measurement ?Value ?Units ? Measurement ?Value ?Units ? RT Prox CCA PSV ?160 ?cm/sec ?LT Prox CCA PSV ?127 ?cm/sec ? RT Prox CCA EDV ?23 ? cm/sec ?LT Prox CCA EDV ?14 ? cm/sec ? RT Distal CCA PSV ?106 ?cm/sec ?LT Distal CCA PSV ?94 ? cm/sec ? RT Distal CCA EDV ?19 ? cm/sec ?LT Distal CCA EDV ?18 ? cm/sec ? RT Prox ICA PSV ?206 ?cm/sec ?LT Prox ICA PSV ?111 ?cm/sec ? RT Prox ICA EDV ?40 ? cm/sec ?LT Prox ICA EDV ?18 ? cm/sec ? RT Mid ICA PSV ? 185 ?cm/sec ?LT Mid ICA PSV ? 84 ? cm/sec ? RT Mid ICA EDV ? 36 ? cm/sec ?LT Mid ICA EDV ? 16 ? cm/sec ? RT Distal ICA PSV ?88 ? cm/sec ?LT Distal ICA PSV ?111 ?cm/sec ? RT Distal ICA EDV ?22 ? cm/sec ?LT Distal ICA EDV ?31 ? cm/sec ? RT ECA PSV ? 300 ?cm/sec ?LT ECA PSV ? 262 ?cm/sec ? RT ICA/CCA ? 1.94 ? ratio ? LT ICA/CCA ? 1.18 ? ratio ? RT VERT PSV ?21 ? cm/sec ?LT VERT PSV ?36 ? cm/sec ? - Findings: Performing Grinding And Spraying Supervisor: Ambika Mars RVT, RDMS. Rt Common Carotid Artery: The plaque in the right CCA appears to be calcified distally near the bifurcation. Minimal atherosclerotic changes of the right common carotid artery with hemodynamically significant Doppler findings; elevated peak systolic velocity as above. Rt [...] the left CCA appears to be calcified distally near the bifurcation. Minimal atherosclerotic changes of the left common carotid artery [...] artery is patent with antegrade flow. Comments: Unable to visualize a 0.62 cm segment of the right proximal ICA due to calcific shadowing. Unable to visualize a 0.93 cm segment of the left proximal ECA due to calcific shadowing. Conclusions: 1. The right internal carotid artery [...] JAIDEN 50-69% stenosis and LICA <50% stenosis. Disclaimer: The signing physician has reviewed all images pertaining to this test. These images and this report will be retained in the patient chart by the Vascular Laboratory for the legally required time period. This chart constitutes the legal record of any testing performed. Electronically Signed By: Charanjit Cruz MD [facility] [phone] 2021-05-27 21:05:09 CDT CC: CC: Procedure Note Charanjit Cruz MD - 05/27/2021 [facility] - Department of Vascular Surgery,Vascular Laboratory [address] [place] [address] Carotid Duplex Ultrasound Report Patient Name: SUMA SAENZ KPatient ID: [id number] : 1945 (75y 4m)Study Date: 05/27/2021 11:11:23 AM Gender: FAccession #: [id number] Tech: CGLocation: [facility] Ref.Provider: NANCI TRUJILLOQuality: Adequate Order Provider: NANCI TRUJILLOAccount #: [id number] Procedures: Carotid Report: Carotid duplex examination of the extracranial arterieswas performed using 2D, color and spectral Doppler. Indications: Encounter for Surgical Aftercare Following Surgery on the CirculatorySystem Dx: Encounter for surgical aftercare following surgery on the circulatorysystem [Z48.812 (ICD-10-CM)]. Measurements: Right Carotid Left Carotid Measurement Value Units Measurement ValueUnits RT Prox CCA PSV 160 cm/sec LT Prox CCA PSV 127cm/sec RT Prox CCA EDV 23 cm/sec LT Prox CCA EDV 14cm/sec RT Distal CCA PSV 106 cm/sec LT Distal CCA PSV 94cm/sec RT Distal CCA EDV 19 cm/sec LT Distal CCA EDV 18cm/sec RT Prox ICA PSV 206 cm/sec LT Prox ICA PSV 111cm/sec RT Prox ICA EDV 40 cm/sec LT Prox ICA EDV 18cm/sec RT Mid ICA PSV 185 cm/sec LT Mid ICA PSV 84cm/sec RT Mid ICA EDV 36 cm/sec LT Mid ICA EDV 16cm/sec RT Distal ICA PSV 88 cm/sec LT Distal ICA PSV 111cm/sec RT Distal ICA EDV 22 cm/sec LT Distal ICA EDV 31cm/sec RT ECA PSV 300 cm/sec LT ECA PSV 262cm/sec RT ICA/CCA 1.94 ratio LT ICA/CCA 1.18ratio RT VERT PSV 21 cm/sec LT VERT PSV 36cm/sec - Findings: Performing Grinding And Spraying Supervisor: Ambika CERNAT, CASSANDRAMS. Rt Common Carotid Artery: The plaque in the right CCA appears to becalcified distally near the bifurcation. Minimal atherosclerotic changes of the right commoncarotid artery with hemodynamically significant Doppler findings; elevated peak systolicvelocity as above. Rt Internal Carotid Artery: The [...] in the left CCA appears to becalcified distally near the bifurcation. Minimal atherosclerotic changes of the left commoncarotid artery with hemodynamically significant Doppler findings; elevated peak systolicvelocity as above. Lt Internal Carotid Artery: The plaque in the left internal carotid arteryappears to be calcified and irregular. Atherosclerotic changes of the left internalcarotid artery without hemodynamically significant Doppler findings. <50% stenosis. Lt External Carotid Artery: Patent left external carotid artery withevidence of atherosclerotic disease present. Lt Vertebral Artery: The left vertebral artery is patent with antegradeflow. Comments: Unable to visualize a 0.62 cm segment of the right proximal ICAdue to calcific shadowing. Unable to visualize a 0.93 cm segment of the left proximal ECAdue to calcific shadowing. Conclusions: 1. The right internal carotid artery disease is consistent with a 50- 69%stenosis. 2. Bidirectional flow is noted in the right vertebral artery. 3. The left internal carotid artery disease is consistent with a less than50% stenosis. 4. Normal, antegrade flow is noted in the left vertebral artery. 5. Minimal atherosclerotic changes of the bilateral common carotidarteries distally near bifurcation with hemodynamically significant Doppler findings. 6. Patent bilateral external carotid arteries with evidence ofatherosclerotic plaque. History: 10/21/2019 s/p bypass from the aorta to the right axillary arteryas well as a bifurcated bypass from the ascending aorta to the right common carotidartery and the left common carotid artery. Previous Studies: Previous carotid ultrasound on 04-09-2020 revealed [id number]% stenosis and LICA <50% stenosis. Disclaimer: The signing physician has reviewed all images pertaining tothis test. These images and this report will be retained in the patient chart by theVascular Laboratory for the legally required time period. This chart constitutes the legalrecord of any testing performed. Electronically Signed By: Charanjit Cruz MD [facility] [phone] 2021-05-27 21:05:09 CDT CC: CC: Nanci Trujillo MD [facility] PROCEDURES Final R esult documented in this encounter Visit Diagnoses Diagnosis Encounter for surgical aftercare following surgery on the circulatory system documented in this encounter Care Teams Corporate Training Manager Relationship Specialty Start Date End Date Abbe Nails MD [address] [place] [address] PCP - General 11/03/19 06/30/22 Nanci Trujillo MD Surgeon Vascular Surgery 10/12/19 Azar Lara MD Surgeon Cardiothoracic Surgery 10/27/19 documented as of this encounter
--- OUTSIDE RECORDS SUMMARY | 2024-09-08 08:22 | XMS_ITS | Encounter Summary ---
Author Organization [facility] Address [address] [facility] [address] [place] [address] Phone Care Team Providers Care Soil Fertility Specialist Name Role Phone Zachary Giron MD Unavailable Azar Lara MD Unavailable Abbe Nails MD Primary Care Provider [phone] Encounter Details Date Type Department Care Team (Late st Contact Info) Description 11/24/2019 Telephone [facility] Surgery [address] [facility] 8th [place] [address] [place] [address] Zachary Giron MD [address] [facility] [address] [place] [address] Social History Tobacco Use Types Packs/Day Years Used Date Smoking Tobacco: Former Cigarettes Smokeless Tobacco: Never Alcohol Use Standard Drinks/Week Comments Yes 0 (1 standard drink = 0.6 oz pur e alcohol) Comments Unknown Sex and Gender Information Value Date Recorded Sex Assigned at Not on file 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 Calle. She is feeling well from a surgical standpoint but having some stomach issues which she is seeing her PCP for. We will reschedule her appointment for 12/05/19 and reschedule her at a later date. She will email me a photo of her incision. She stated the hematoma is completely gone. Will forward to Dr. Giron when I receive it. Instructed to call with any issues or questions. documented in this encounter Plan of Treatment Not on file documented as of this encounter Visit Diagnoses Not on filedocumented in this encounter Care Teams Soil Fertility Specialist Relationship Specialty Start Date End Date Abbe Nails MD [address] [place] [address] PCP - General 11/03/19 06/30/22 Zachary Giron MD Surgeon Vascular Surgery 10/12/19 Azar Lara MD Surgeon Cardiothoracic Surgery 10/27/19 documented as of this encounter
--- OUTSIDE RECORDS SUMMARY | 2024-09-08 08:22 | XMS_ITS | Encounter Summary ---
Author Organization [facility] Address [address] [place] [address] Care Team Providers Care Electrical And Instrumentation Mechanic Name Role Phone Zachary Giron MD Unavailable [phone] Azar Lara MD Unavailable Abbe Nails MD Primary Care Provider [phone] Reason for Referral * MRI/CAT/PET Scan (Routine) - Closed Specialty Diagnoses / Procedures [facility] Referred To Contact Radiology Diagnoses Occlusion and stenosis of right carotid artery Procedures CTA Head Neck W WO Contrast Zachary Giron MD [address] [facility] [address] [place] [address] Phone: tel: fax: [address] [address] Referral ID Status Reason Start Date Expiration Date Visits Re quested Visits Authorized [id number] Closed 06/09/2022 07/09/2023 1 1 Reason for Visit * MRI/CAT/PET Scan (Routine) - Closed Specialty Diagnoses / Procedures [facility] Referred To Contact Radiology Diagnoses Occlusion and stenosis of right carotid artery Procedures CTA Head Neck W WO Contrast Zachary Giron MD [address] [facility] [address] [place] [address] Phone: tel: fax: [facility] [address] [facility] [place] [address] Referral ID Status Reason Start Date Expiration Date Visits Re quested Visits Authorized [id number] Closed 06/09/2022 07/09/2023 1 1 Encounter Details Date Type Department Care Team (Latest Contact Info) Description 06/16/2022 9:37 AM CDT - 06/16/2022 11:59 PM CDT Hospital Encounter [facility] [address] [place] [address] Zachary Giron MD [address] [facility] [address] [place] [address] Occlusion and stenosis of right carotid artery Discharge Disposition: Discharge to home or self care Social History Tobacco Use Types Packs/Day Years Used Date Smoking Tobacco: Former Cigarettes Smokeless Tobacco: Never Alcohol Use Standard Drinks/Week Comments Yes 0 (1 standard drink = 0.6 oz pur e alcohol) Comments Unknown Sex and Gender Information Value Date Recorded Sex Assigned at Not on file 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 Gender Identity Not on file Sexual Orientation Not on file documented as of this encounter Medications at Time of Discharge [...] by mouth daily 30 tablet 11 11/04/2019 aspirin 325 mg tablet take 1 [...] oral route every day 0 0 02/26/2015 estradioL (ESTRACE) 0.01 % (0.1 mg/gram) vaginal cream Insert 1 g into the vagina 2 (two) times a week Thursday and thursday05/26/2022 hydroCHLOROthiazi de (HYDRODIURIL) 25 mg tabletIndications :hypertension Take 1 tablet (25 mg total) by mouth every morning lisinopriL (PRINIVIL,ZESTRIL ) 10 mg tablet Take 1 tablet (10 mg total) by mouth daily 30 tablet 11/04/2019 medical cannabis each Take 1 Dose by mouth nightly montelukast (SINGULAIR) 10 mg tablet take 1 tablet by oral route every day in the evening 0 0 11/03/2016 azithromycin (ZITHROMAX) 250 mg tablet 04/30/2022 2 benzonatate (TESSALON) 200 mg capsule 04/30/2022 2 biotin 10,000 mcg capsuleIndication s:Biotin Deficiency Take 1 capsule (10,000 mcg total) by mouth 2 (two) times a day 4 doxycycline monohydrate (MONODOX) 100 mg capsule 05/07/2022 2 Lactobacillus acidophilus capsule Take 1 tablet by mouth 2 (two) times a day 3 mesalamine (PENTASA) 250 mg CR capsuleIndication s:Ulcerative Colitis Take 400 mg by mouth 2 (two) times a day 3 nitrofurantoin monohydrate (MACROBID) 100 mg capsule 05/26/2022 2 oxyCODONE (ROXICODONE) 5 mg immediate release tabletIndications :Pain Take 1 tablet (5 mg total) by mouth every 4 (four) hours as needed for pain 20 tablet 11/04/2019 2 documented as of this encounter Discharge Disposition Disposition Code Departure Means Destination Discharge to home or self care documented in this encounter Plan of Treatment Not on file documented as of this encounter Procedures Procedure Name Priority Date/Time Associated Diagnosis Comments CTA HEAD NECK W WO CONTRAST Schedule Routine, Read Routine (OP Routine) 06/16/2022 11:04 AM CDT Occlusion and stenosis of right carotid artery POCT CREATININE - DEVICE Routine 06/16/2022 10:17 AM CDT documented in this encounter Results * CTA Head Neck [...] the internal carotid arteries is unchanged. The bdctrg-ue-Jyvpic is complete. The anterior and middle cerebral arteries are normal. The right vertebral artery is dominant. The basilar artery is hypoplastic. The posterior cerebral arteries are normal. There is a prominent right posterior communicating artery. There is no aneurysm or vascular malformation identified. Procedure Note Margaret Syed MD - 06/16/2022 EXAMINATION: Computed tomography angiography [...] the internal carotid arteries is unchanged. The kntwyr-sm-Zrxfnb is complete. The anterior and middle cerebral [...] MD IMG CT PROCEDURES Final R esult * POCT creatinine (06/16/2022 10:17 AM CDT) Creatinine POC 0.8 0.6 - 1.1 mg/dL [facility] Blood 06/16/2022 10:1 7 AM CDT 06/16/2022 10:17 AM CDT Zachary Giron MD LAB POCT ORDERABLES - DEV ICE Final Result [facility] Department [place] [address] documented in this encounter Visit Diagnoses Diagnosis Occlusion and stenosis of right carotid artery documented in this encounter Administered Medications Inactive Administered Medications - up to 3 most recent administrations Medication Order MAR Action Action Date Dose Rate Site ioversoL (OPTIRAY 350) syringe 100 mL 100 mL, intravenous, Once in imaging, contrast, Starting on 06/16/22 at 1050, For 1 dose Contrast Given 06/16/2022 10:56 AM CDT 95 mL documented in this encounter Orders Medications Ordered That Chris ht Not Have Been Administered Count Last Ordered Date First Ordered Date ioversoL (OPTIRAY 350) syringe 100 mL 1 06/2022 documented in this encounter Care Teams Electrical And Instrumentation Mechanic Relationship Specialty Start Date End Date Abbe Nails MD [address] [place] [address] PCP - General 11/03/19 06/30/22 Zachary Giron MD Surgeon Vascular Surgery 10/12/19 Azar Lara MD Surgeon Cardiothoracic Surgery 10/27/19 documented as of this encounter
--- OUTSIDE RECORDS SUMMARY | 2024-09-08 08:22 | XMS_ITS | Encounter Summary ---
Author Organization [facility] Address [address] [facility] [address] [place] [address] Phone Care Team Providers Care Cable Dispatcher Name Role Phone Zachary Giron MD Unavailable Azar Lara MD Unavailable Abbe Nails MD Primary Care Provider [phone] Encounter Details Date Type Department Care Team (Late st Contact Info) Description 11/28/2019 Telephone [facility] Surgery [address] [facility] 8th [place] [address] [place] [address] Zachary Giron MD [address] [facility] [address] [place] [address] Social History Tobacco Use Types Packs/Day Years Used Date Smoking Tobacco: Former Cigarettes Smokeless Tobacco: Never Alcohol Use Standard Drinks/Week Comments Yes 0 (1 standard drink = 0.6 oz pur e alcohol) Comments Unknown Sex and Gender Information Value Date Recorded Sex Assigned at Not on file 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 Saenz called requesting refills on her BP medications. Informed her to contact her PCP for refills. Verbalized understanding. documented in this encounter Plan of Treatment Not on file documented as of this encounter Visit Diagnoses Not on filedocumented in this encounter Care Teams Cable Dispatcher Relationship Specialty Start Date End Date Abbe Nails MD [address] [place] [address] PCP - General 11/03/19 06/30/22 Zachary Giron MD Surgeon Vascular Surgery 10/12/19 Azar Lara MD Surgeon Cardiothoracic Surgery 10/27/19 documented as of this encounter
--- OUTSIDE RECORDS SUMMARY | 2024-09-08 08:22 | XMS_ITS | Encounter Summary ---
Author Organization [facility] Healthcare Address [address] [place] [address] Care Team Providers Care Needleworker Name Role Phone Zachary Giron MD Unavailable Azar Lara MD Unavailable Perez Alexander DO Primary Care Provider Reason for Visit * Auth/Cert Specialty Diagnoses / Procedures Referred By Contac t Referred To Contact Diagnoses Occlusion and stenosis of right carotid artery Occlusion and stenosis of right carotid artery [I65.21] Procedures [place] THROMBOENDARTECTMY NECK,NECK INCIS ENDARTERECTOMY - CAROTID WITH PATCH GRAFT Referral ID Status Reason Start Date Expiration Date Visits Re quested Visits Authorized [id number] 1 1 Encounter Details Date Type Department Care Team (Late st Contact Info) Description 07/17/2022 7:31 AM DIRECTOR NETWORK DEVELOPMENT Anesthesia Event [facility] [address] [place] [address] Geovany Bermeo MD PhD [address] [place] [address] Montserrat Garrison NP [address] [facility] [id number] [place] [address] Anesthesia Record Procedure Summary Procedure Name Responsible Anesthesiologist Anesthesia Start Time Anesthesia Stop Time ENDARTERECTOMY - CAROTID WITH PATCH GRAFT (Right: Neck) Geovany Bermeo MD PhD 07/17/22 0731 07/17/22 1133 Events Date Time Event Comment 07/17/2022 0534 In Preop 0724 0731 In Room 0731 An Start 0731 An Start Data 0742 An Induction The patient was reevaluated immediately before moderate or deep sedation use and before anesthesia induction. 0744 An Intubation 0807 Line Placement 0810 IV Placed 0814 Anesthesia Ready 0834 Proc Start 0834 Incision Start 0925 An Carotid On 0927 Quick Note Checked stumb p ressure was 50 and surgeon decided to shunt. 0929 Quick Note Shunt is open 1012 An Carotid Off 1109 An Extubation 1112 an stop data 1112 Proc Fin 1117 Out of Room 1133 Handoff to RN I completed my handoff to the receiving nurse during which we: 1. Patient identified 2. Responsible provider identified 3. Pertinent medical history reviewed 4. Procedure type and surgical course discussed 5. Intraoperative anesthetic management and any significant issues discussed 6. Expectations and concerns for postop period discussed 7. Questions solicited from receiving nurse 8. Patient disposition at the time of handoff: ICU 1133 An Stop 07/18/2022 1029 Release from care Meds Name Total lidocaine (cardiac) syringe 2 % 50 mg propofol 190 mg fentaNYL 100 mcg HYDROmorphone 2 mg/mL 0.6 mg succinylcholine 100 mg rocuronium 30 mg phenylephrine 100 mcg/mL 1,300 mcg ondansetron PF (ZOFRAN) 2 mg/mL injectio n 4 mg glycopyrrolate 0.7 mg neostigmine injection 1 mg/mL 2 mg phenylephrine infusion (100 mcg/mL) 11.6 1 mg vancomycin 1500 mg/515 mL in sodium chlo ride 0.9% (premix) 1,500 mg 1,500 mg famotidine 20 mg dexAMETHasone 4 mg/mL 4 mg ePHEDrine 25 mg dexmedeTOMIDine vial 100 mcg/mL 8 mcg lidocaine (LTA) solution 4 % 4 mL heparin 1,000 unit/ml 8,000 Units calcium chloride 0.5 g sodium bicarbonate 1 meq/mL (8.4 %) 50 m Eq magnesium sulfate 2 g/50 mL 1 g protamine 30 mg Lactated Ringer's (LR) infusion 1,400 mL * Agents Name O2% N2O O2 N2O Air Sevoflurane Inspired Sevoflurane * Blood No blood administrations on file. Lines, Drains, and Airways Type Details Placement Removal RETIRED Wound 02/11/20; 1339; No; Puncture; Right; Groin; Cardiac cath site; 08/09/24 (Retired LDA, Removed/Completed by [facility] with LDA Utility); 1213 (Retired LDA, Removed/Completed by [facility] with LDA Utility) 10/18/19 1339 by Sarah Velasco RN 08/09/24 1213 by Discharge Provider, Automatic RETIRED Surgical Site 10/21/19; 1327; est; Mini sternotomy site; 07/18/22; 92910/21/19 1327 by Sylvester White RN 07/18/22 0930 by Shira Zuleta RN RETIRED Surgical Site 10/21/19; 1659; Ri ght, Upper, Lateral; Chest; cut down; 07/18/22; 92910/21/19 1659 by Erlin Orozco RN 07/18/22 0930 by Shira Zuleta RN RETIRED Surgical Site 10/21/19; 1659; Ri ght; Chest; chest tube site; 07/18/22; 92910/21/19 1659 by Erlin Orozco RN 07/18/22 0930 by Shira Zuleta RN Peripheral IV Placement Date: 07/17/22; Placement Time: 0646; Catheter Size: 20 G; Orientation: Left; Location: Hand; Removal Date: 07/18/22; Removal Time: 0950 07/17/22 0646 by Lauren Curtis RN 07/18/22 0950 by Shira Zuleta RN Urethral Catheter Placement Date: 07/17/22; Placement Time: 0750; Inserted by: Mamta Ordonez RN; Type: Non-latex, Straight-tip, Temperature probe; Balloon Size: 10 mL; Urine Returned: Yes; Removal Date: 07/17/22; Removal Time: 17307/17/22 0750 by Mamta Ordonez RN 07/17/22 173 by Shira Zuleta RN ETT Placement Date: 07/17/22; Placement Time: 0825 (created via procedure documentation); Mask Ventilation: 2; Technique: Video laryngoscopy; Type: ETT - single; Single Lumen Tube Size: 7 mm; Cuffed: Yes; Laryngoscope: Valerie; Blade Size: 3; Location: Oral; Insertion Attempts: 1; Placement Verification: Auscultation, Capnometry; Removal Date: 07/17/22; Removal Time: 11007/17/22 08 by Gasper Quijano MD 07/17/221108 by Gasper Quijano MD Arterial Line Placement Date: 07/17/22; Placemnt Time: 824 (created via procedure documentation); Size: 20 G; Orientation: Right; Location: Radial; Securement: Taped, Transparent dressing; Removal Date: 07/18/22; Removal Time: 92807/17/22824 by Gasper Quijano MD 07/18/22928 by Shira Zuleta RN Peripheral IV Placement Date: 07/17/22; Placement Time: 828 (created via procedure documentation); Catheter Size: 16 G; Orientation: Right; Location: Wrist; Site Prep: Chlorhexidine; Insertion Attempts: 1; Removal Date: 07/18/22; Removal Time: 92907/17/22 08 by Gasper Quijano MD 07/18/22 09 by Shira Zuleta RN RETIRED Surgical Site 07/17/22; 1015; Ri ght; Neck; 08/09/24 (Retired LDA, Removed/Completed by [facility] with LDA Utility); 1213 (Retired LDA, Removed/Completed by [facility] with LDA Utility) 07/17/22 1015 by Mamta Ordonez RN 08/09/24 1213 by Discharge Provider, Automatic Closed/Suction/Open Drain 07/17/22; 1030; No; 1; Right; Neck; Bulb; 19 Fr. 07/17/22 1030 by Mamta Ordonez RN 07/18/22 0929 by Shira Zuleta RN documented in this encounter Social History Tobacco Use Types Packs/Day Years [...] when you are drinking? 1 or 2 2 Q3: How often do you have si x or more drinks on one occasion? Never 07/03/2022 Comments Unknown Sex and Gender Information Value Date Recorded Sex Assigned at Not on file Legal Sex Female 3:40 AM DIRECTOR NETWORK DEVELOPMENT Gender Identity Not on file Sexual Orientation Not on file documented as of this encounter OR Notes * Anesthesia Postprocedure Evaluation - Michelle Vieyra MD PhD - 07/17/2022 1:25 PM CST Patient: Suma Saenz Procedure Summary Date: 07/17/22 Room / Location: [facility] OR POD 3 ROOM 306 / [facility] OR POD 3 Anesthesia Start: 730 Anesthesia Stop: 1132 Procedure: ENDARTERECTOMY - CAROTID WITH PATCH GRAFT (Right: Neck) Diagnosis: Occlusion and stenosis of right carotid artery (Occlusion and stenosis of right carotid artery [I65.21]) Surgeons: Zachary Giron MD Responsible Provider: Geovany Bermeo MD PhD Anesthesia Type: general ASA Status: 3 Anesthesia Type: general Last vitals BP 105/59 Pulse 64 Comment: vascular called to add intermediate care to transfer order Temp 36.1 ??C (97 ??F) (Temporal) Resp 18 SpO2 96% Anesthesia Post Evaluation Patient location during evaluation: PACU Patient participation: complete - patient participated Level of consciousness: fully awake Pain score: 2 Pain management: satisfactory to patient Airway patency: adequate Evidence of recall: no Cardiovascular status: acceptable and hemodynamically stable Respiratory status: acceptable and room air Hydration status: acceptable Pt is: normothermic Nausea/Vomiting status: none Comments: Transfer to the . No notable events documented. CTOR NETWORK DEVELOPMENT * Anesthesia Procedure Notes - Gasper Quijano MD - 07/17/2022 8:29 AM CSTAssociated Order(s): Peripheral IV Catheter Peripheral IV Catheter Patient location: OR Staff: Supervising provider: Geovany Bermeo MD PhD Placed by: Resident: Gasper Quijano MD Preprocedure prep: Prep solution: chlorhexadine PPE: gloves PIV line: Laterality: right Site: wrist Catheter size: 16 g Technique: anatomical landmarks, direct visualization and palpatation Procedure details: good blood return Number of attempts: 1 Assessment: Events: patient tolerated procedure well with no complications CTOR NETWORK DEVELOPMENT * Anesthesia Procedure Notes - Gasper Quijano MD - 07/17/2022 8:25 AM DIRECTOR NETWORK DEVELOPMENT Associated Order(s): Arterial Line Arterial Line Patient location: pre-op holding Indication: continuous blood pressure monitoring and blood sampling needed Ultrasound assisted: yes Staff: Supervising provider: Geovany Bermeo MD PhD Placed by: Resident: Gasper Quijano MD Procedure prep: Prep solution: chlorhexadine/alcohol Prep: provider hat/mask and sterile gloves Skin infiltrated with lidocaine 1%: yes Arterial line: Catheter size: 20 gauge Catheter length: 1 and 3/4 inch Catheter type: angiocath Seldinger technique: yes Laterality: right Site: radial artery Line secured: tape and Tegaderm Results: good waveform and good blood return Number of attempts: 3 Assessment: Events: patient tolerated procedure well with no complications CTOR NETWORK DEVELOPMENT * Anesthesia Procedure Notes - Gasper Quijano MD - 07/17/2022 8:25 AM CSTAssociated Order(s): Airway Airway Patient location: OR Urgency: elective Indications for airway management: anesthesia and airway protection Difficult airway: no Staff: Supervising provider: Geovany Bermeo MD PhD Placed by: Resident: Gasper Quijano MD Emergent airway documentation: Risks and benefits discussed: yes Consent obtained: yes Consent given by: patient Airway prep: Preoxygenated: yes Patient position: sniffing Mask difficulty assessment: 2 - vent by mask + OA or adjuvant Spontaneous ventilation during airway: absent Sedation level during airway: GA Final airway details: Final airway type: endotracheal airway Tube type: ETT ETT size: 7.0 mm Cuffed: yes Technique used for successful ETT placement: video laryngoscopy Insertion site: oral Blade type: Valerie Video blade type: Conley Blade size: 3 Cormack-Lehane (video): grade I - full view of glottis Cuff volume: 10 mL Cuff inflated with: air ETT to lips: 22 cm Placement verified by: auscultation and CO2 detection Airway secured with: silk tape Number of attempts: 1 Ventilation between attempts: none Planned trial extubation: yes CTOR NETWORK DEVELOPMENT * Anesthesia Preprocedure Evaluation - Geovany Bermeo MD PhD - 07/03/2022 1:36 PM CDT Images from the original note were not included. [facility] Preoperative Evaluation Record Evaluation type/location: [facility] Planned procedure site: [facility] (Pods 2/3/5/[facility]) Date: 07/03/22 Anesthesia Evaluation Suma Saenz is [...] MR - mild; Pertinent negatives: CAD ; LA ; CABG ; valve replacement; atrial fibrillation; [...] CP with daily chores around the house ([employer])). Obstructive sleep apnea (MARC) screening status is [...] last 720 hours. Creatinine: 06/16/2022: 0.8 mg/dL DOS Physical Exam Medical history, medications, and allergies reviewed. Attestation: I endorse the findings of the anesthesia pre-evaluation assessment dated: 07/03/2022. Airway Exam: Mallampati: II Cervical ROM: FROM TM distance: 3 Cardiovascular Exam: Rate: regular Rhythm: regular Negative for Murmur Pulmonary Exam: LCTA, bilat EENT Exam: trachea midline Dental Exam: Appears intact Skin Exam: Skin is warm. Abdominal Exam: Abdomen is soft. Bowel sounds are present. Current state: Patient's current state is cooperative. Anesthesia Plan ASA 3 Planned anesthesia: General Team communication plan: oral ET tube Invasive Monitors Planned: Invasive monitors planned: arterial line. Induction: Induction: intravenous. Postoperative Plan: Patient's planned disposition post procedure is Obs. unit. Informed Consent: Discussed plan with resident. Anesthesia plan and risks discussed with patient. Consent and Attending signature: I and/or my designee have discussed the anesthesia plan, benefits, possible alternatives, parental presence at time of induction (if indicated), and clinically relevant risks that may include dental injury, unintentional awareness, and/or other complications. The patient and/or parent/legal guardian understand, and agree to proceed. All questions answered. CTOR NETWORK DEVELOPMENT documented in this encounter Miscellaneous Notes * Addendum Note - Gasper Quijano MD - 07/21/2022 9:35 PM CST Addendum created 07/21/222134 by Gasper Quijano MD Intraprocedure Meds edited CTOR NETWORK DEVELOPMENT documented in this encounter Plan of Treatment Not on file documented as of this encounter Procedures Procedure Name Priority Date/Time Associated Diagnosis Comments PERIPHERAL LINE Routine 07/17/2022 8:29 AM DIRECTOR NETWORK DEVELOPMENT ANESTHESIA ARTERIAL LINE PLACEMENT Routine 07/17/2022 8:25 AM DIRECTOR NETWORK DEVELOPMENT ANESTHESIA INTUBATION Routine 07/17/2022 8:25 AM DIRECTOR NETWORK DEVELOPMENT documented in this encounter Results * Peripheral IV Catheter (07/17/2022 8:29 AM DIRECTOR NETWORK DEVELOPMENT) Narrative Gasper Quijano MD - 07/17/2022 8:29 AM DIRECTOR NETWORK DEVELOPMENT Gasper Quijano MD ? 07/17/2022 ??8:29 AM Peripheral IV Catheter Patient location: OR Staff: Supervising provider: Geovany Bermeo MD PhD Placed by: Resident: Gasper Quijano MD Preprocedure prep: Prep solution: chlorhexadine PPE: gloves PIV line: Laterality: right Site: wrist Catheter size: 16 g Technique: anatomical landmarks, direct visualization and palpatation Procedure details: good blood return Number of attempts: 1 Assessment: Events: patient tolerated procedure well with no complications us Geovany Bermeo MD PhD ANESTHESIA ORDERABLES Final R esult * Arterial Line (07/17/2022 8:25 AM DIRECTOR NETWORK DEVELOPMENT) Narrative Gasper Quijano MD - 07/17/2022 8:25 AM DIRECTOR NETWORK DEVELOPMENT Gasper Quijano MD ? 07/17/2022 ??8:25 AM Arterial Line Patient location: pre-op holding Indication: continuous blood pressure monitoring and blood sampling needed Ultrasound assisted: yes Staff: Supervising provider: Geovany Bermeo MD PhD Placed by: Resident: Gasper Quijano MD Procedure prep: Prep solution: chlorhexadine/alcohol Prep: provider hat/mask and sterile gloves Skin infiltrated with lidocaine 1%: yes Arterial line: Catheter size: 20 gauge Catheter length: 1 and 3/4 inch Catheter type: angiocath Seldinger technique: yes Laterality: right Site: radial artery Line secured: tape and Tegaderm Results: good waveform and good blood return Number of attempts: 3 Assessment: Events: patient tolerated procedure well with no complications us Geovany Bermeo MD PhD ANESTHESIA ORDERABLES Final R esult * Airway (07/17/2022 8:25 AM DIRECTOR NETWORK DEVELOPMENT) Narrative Gasper Quijano MD - 07/17/2022 8:25 AM DIRECTOR NETWORK DEVELOPMENT Gasper Quijano MD ? 07/17/2022 ??8:25 AM Airway Patient location: OR Urgency: elective Indications for airway management: anesthesia and airway protection Difficult airway: no Staff: Supervising provider: Geovany Bermeo MD PhD Placed by: Resident: Gasper Quijano MD Emergent airway documentation: Risks and benefits discussed: yes Consent obtained: yes Consent given by: patient Airway prep: Preoxygenated: yes Patient position: sniffing Mask difficulty assessment: 2 - vent by mask + OA or adjuvant Spontaneous ventilation during airway: absent Sedation level during airway: GA Final airway details: Final airway type: endotracheal airway Tube type: ETT ETT size: 7.0 mm Cuffed: yes Technique used for successful ETT placement: video laryngoscopy Insertion site: oral Blade type: Valerie Video blade type: Conley Blade size: 3 Cormack-Lehane (video): grade I - full view of glottis Cuff volume: 10 mL Cuff inflated with: air ETT to lips: 22 cm Placement verified by: auscultation and CO2 detection Airway secured with: silk tape Number of attempts: 1 Ventilation between attempts: none Planned trial extubation: yes us Geovany Bermeo MD PhD ANESTHESIA ORDERABLES Final R esult documented in this encounter Visit Diagnoses Not on filedocumented in this encounter Administered Medications Inactive Administered Medications - up to 3 most recent administrations Medication Order MAR Action Action Date Dose Rate Site calcium chloride IV syringe intravenous, As needed, Starting on Anuradha 07/17/22 at 0923, Anesthesia Intra-op Given 07/17/2022 9:23 AM DIRECTOR NETWORK DEVELOPMENT 0.5 g dexAMETHasone (DECADRON) 4 mg/mL injection intravenous, Administer over 2 Minutes, As needed, Starting on Anuradha 07/17/22 at 0821, Anesthesia Intra-op Given 07/17/2022 8:21 AM DIRECTOR NETWORK DEVELOPMENT 4 mg dexmedeTOMIDine (PRECEDEX) injection intravenous, As needed, Starting on Anuradha 07/17/22 at 0837, Anesthesia Intra-op Given 07/17/2022 8:46 AM DIRECTOR NETWORK DEVELOPMENT 4 mcg Given 07/17/2022 8:37 AM DIRECTOR NETWORK DEVELOPMENT 4 mcg ePHEDrine injection intravenous, Administer over 5 Minutes, As needed, Starting on Anuradha 07/17/22 at 0823, Anesthesia Intra-op Given 07/17/2022 10:19 AM DIRECTOR NETWORK DEVELOPMENT 10 mg Given 07/17/2022 9:03 AM DIRECTOR NETWORK DEVELOPMENT 5 mg Given 07/17/2022 8:23 AM DIRECTOR NETWORK DEVELOPMENT 10 mg famotidine (PEPCID) injection intravenous, Administer over 2 Minutes, As needed, Starting on Anuradha 07/17/22 at 0821, Anesthesia Intra-op Given 07/17/2022 8:21 AM DIRECTOR NETWORK DEVELOPMENT 20 mg fentaNYL (SUBLIMAZE) preservative free injection intravenous, As needed, Starting on Anuradha 07/17/22 at 0742, Anesthesia Intra-op Given 07/17/2022 7:42 AM DIRECTOR NETWORK DEVELOPMENT 100 mc g glycopyrrolate (ROBINUL) injection intravenous, Administer over 1 Minutes, As needed, Starting on Anuradha 07/17/22 at 0926, Anesthesia Intra-op Given 07/17/2022 10:45 AM DIRECTOR NETWORK DEVELOPMENT 0.4 mg Given 07/17/2022 9:26 AM DIRECTOR NETWORK DEVELOPMENT 0.3 mg heparin 1,000 unit/mL injection intravenous, As needed, Starting on Anuradha 07/17/22 at 0900, Anesthesia Intra-op Given 07/17/2022 9:00 AM DIRECTOR NETWORK DEVELOPMENT 8,000 Units HYDROmorphone (DILAUDID) injection intravenous, Administer over 2 Minutes, As needed, Starting on Anuradha 07/17/22 at 0829, Anesthesia Intra-op Given 07/17/2022 9:42 AM DIRECTOR NETWORK DEVELOPMENT 0.35 mg Given 07/17/2022 8:29 AM DIRECTOR NETWORK DEVELOPMENT 0.25 mg Lactated Ringer's (LR) infusion 30 mL/hr, intravenous, Continuous, Starting on Anuradha 07/17/22 at 0645 New Bag 07/17/2022 4:22 PM DIRECTOR NETWORK DEVELOPMENT 30 mL/hr 30 mL/hr New Bag 07/17/2022 7:31 AM DIRECTOR NETWORK DEVELOPMENT lidocaine (cardiac) (XYLOCAINE) preservative free injection intravenous, As needed, Starting on Anuradha 07/17/22 at 0742, Anesthesia Intra-op, Indications: Ventricular ArrhythmiasIndications:Ventricular Arrhythmias Given 07/17/2022 7:42 AM DIRECTOR NETWORK DEVELOPMENT 50 mg lidocaine (LTA) 4 % laryngotracheal solution nebulization, As needed, Starting on Anuradha 07/17/22 at 0743, Anesthesia Intra-op Given 07/17/2022 7:43 AM DIRECTOR NETWORK DEVELOPMENT 4 mL magnesium sulfate 2 g/50 mL in water (premix) intravenous, Administer over 60 Minutes, As needed, Starting on Anuradha 07/17/22 at 1004, Anesthesia Intra-op Given 07/17/2022 10:04 AM DIRECTOR NETWORK DEVELOPMENT 1 g neostigmine (PROSTIGMIN) injection intravenous, Administer over 3 Minutes, As needed, Starting on Anuradha 07/17/22 at 1045, Anesthesia Intra-op Given 07/17/2022 10:45 AM DIRECTOR NETWORK DEVELOPMENT 2 mg ondansetron (ZOFRAN) injection intravenous, Administer over 2 Minutes, As needed, Starting on Anuradha 07/17/22 at 1036, Anesthesia Intra-op Given 07/17/2022 10:36 AM DIRECTOR NETWORK DEVELOPMENT 4 mg phenylephrine (JEAN-SYNEPHRINE) 1 mg/10 mL (100 mcg/mL) in sodium chloride 0.9% (premix) intravenous, As needed, Starting on Anuradha 07/17/22 at 0742, Anesthesia Intra-op Given 07/17/2022 10:47 AM DIRECTOR NETWORK DEVELOPMENT 100 m cg Given 07/17/2022 10:20 AM DIRECTOR NETWORK DEVELOPMENT 200 mcg Given 07/17/2022 10:18 AM DIRECTOR NETWORK DEVELOPMENT 200 mcg phenylephrine (JEAN-SYNEPHRINE) 5 mg/50 mL (100 mcg/mL) in sodium chloride 0.9% (premix) intravenous, Continuous PRN, Starting on Anuradha 07/17/22 at 0753, Anesthesia Intra-op Rate/Dose Change 07/17/2022 11:05 AM DIRECTOR NETWORK DEVELOPMENT 0.2 mcg/kg/min 10.008 mL/hr Rate/Dose Change 07/17/2022 11:01 AM DIRECTOR NETWORK DEVELOPMENT 0.3 mcg/kg/min 15 .012 mL/hr Rate/Dose Change 07/17/2022 10:52 AM DIRECTOR NETWORK DEVELOPMENT 0.5 mcg/kg/min 25 .02 mL/hr propofoL (DIPRIVAN) 10 mg/mL IV intravenous, As needed, Starting on Anuradha 07/17/22 at 0742, Anesthesia Intra-op Given 07/17/2022 10:16 AM DIRECTOR NETWORK DEVELOPMENT 30 mg Given 07/17/2022 10:12 AM DIRECTOR NETWORK DEVELOPMENT 20 mg Given 07/17/2022 7:42 AM DIRECTOR NETWORK DEVELOPMENT 140 mg protamine injection intravenous, As needed, Starting on Anuradha 07/17/22 at 1024, Anesthesia Intra-op, Indications: Heparin ToxicityIndications:Heparin Toxicity Given 07/17/2022 10:28 AM DIRECTOR NETWORK DEVELOPMENT 25 mg Given 07/17/2022 10:24 AM DIRECTOR NETWORK DEVELOPMENT 5 mg rocuronium (ZEMURON) injection intravenous, As needed, Starting on Anuradha 07/17/22 at 0823, Anesthesia Intra-op Given 07/17/2022 8:55 AM DIRECTOR NETWORK DEVELOPMENT 10 mg Given 07/17/2022 8:51 AM DIRECTOR NETWORK DEVELOPMENT 10 mg Given 07/17/2022 8:23 AM DIRECTOR NETWORK DEVELOPMENT 10 mg sodium bicarbonate 8.4 % (1 mEq/mL) injection intravenous, Administer over 5 Minutes, As needed, Starting on Anuradha 07/17/22 at 0925, Anesthesia Intra-op Given 07/17/2022 9:25 AM DIRECTOR NETWORK DEVELOPMENT 50 mEq succinylcholine (ANECTINE) injection intravenous, As needed, Starting on Anuradha 07/17/22 at 0742, Anesthesia Intra-op Given 07/17/2022 7:42 AM DIRECTOR NETWORK DEVELOPMENT 100 mg vancomycin 1500 mg/515 mL in sodium chloride 0.9% (premix) 1,500 mg 1,500 mg, intravenous, Administer over 90 Minutes, Once, On Anuradha 07/17/22 at 0645, For 1 dose, Pre-Op, Administer within 120 minutes of incision., Indications: Prophylaxis, SurgicalIndications:Prophylaxis, Surgical Given 07/17/2022 7:00 AM DIRECTOR NETWORK DEVELOPMENT 1,500 mg documented in this encounter Care Teams Needleworker Relationship Specialty Start Date End Date Perez Alexander DO [address] [id number] PCP - General Family Medicine 07/01/22 Zachary Giron MD Surgeon Vascular Surgery 10/12/19 Azar Lara MD Surgeon Cardiothoracic Surgery 10/27/19 documented as of this encounter
--- OUTSIDE RECORDS SUMMARY | 2024-09-08 08:22 | XMS_ITS | Encounter Summary ---
Author Organization [facility] Address [address] [place] [address] Phone Care Team Providers Care Outbound Sales Advisor Name Role Phone Zachary Giron MD Unavailable Azar Lara MD Unavailable Abbe Nails MD Primary Care Provider Encounter Details Date Type Department Care Team (Late st Contact Info) Description 06/16/2022 Documentation [facility] Surgery [address] [place] [address] Zachary Giron MD [address] [facility] [address] [place], [place] [id number] Social History Tobacco Use Types Packs/Day Years Used Date Smoking Tobacco: Former Cigarettes Smokeless Tobacco: Never Alcohol Use Standard Drinks/Week Comments Yes 0 (1 standard drink = 0.6 oz pur e alcohol) Comments Unknown Sex and Gender Information Value Date Recorded Sex Assigned at Not on file 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 The disease extends a bit up the ICA, and also a bit below the main bifurcation lesion, but this is all surgically accessible. Left-sided disease is fairly mild. The distal vertebral arteries and basilar artery are hyperplastic and she appears to have provide most of her posterior cerebral artery flow from posterior communicating/ origin vessels. The A-comm appears patent. We discussed medical management versus intervention for this progressive lesion at her recent clinic visit, including the associated procedural risks, and she wished to pursue right carotid endarterectomy. The lesion is far too heavily calcified for TCAR. I will have my nurse reach out to her to get the right carotid endarterectomy scheduled. Given her previous complex arch surgery, we will ask the ENT service to evaluate her vocal cord function preoperatively. documented in this encounter Plan of Treatment Not on file documented as of this encounter Visit Diagnoses Not on filedocumented in this encounter Care Teams Outbound Sales Advisor Relationship Specialty Start Date End Date Abbe Nails MD [address] [place] [address] PCP - General 11/03/19 06/30/22 Zachary Giron MD Surgeon Vascular Surgery 10/12/19 Azar Lara MD Surgeon Cardiothoracic Surgery 10/27/19 documented as of this encounter
--- OUTSIDE RECORDS SUMMARY | 2024-09-08 08:22 | XMS_ITS | Encounter Summary ---
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 Zachary Giron MD Phone: tel: fax: Zachary Giron MD [address] [facility] [address] [place] [address] Phone: tel: fax: Referral ID Status Reason Start Date Expiration Date V isits Requested Visits Authorized [id number] Closed Specialty Services Required 05/14/2021 06/13/2022 12 12 Encounter Details Date Type Department Care Team (Latest Contact Info) Description 05/27/2021 10:30 AM CDT Office Visit [facility] Surgery [address] [facility] 8th [place] [address] [place] [id number] Zachary Giron MD [address] [facility] [address] [place] [address] Encounter for surgical aftercare following surgery on the circulatory system (Primary Dx); 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 Social History Tobacco Use Types Packs/Day Years Used Date Smoking Tobacco: Former Cigarettes Smokeless Tobacco: Never Alcohol Use Standard Drinks/Week Comments Yes 0 (1 standard drink = 0.6 oz pur e alcohol) Comments Unknown Sex and Gender Information Value Date Recorded Sex Assigned at Not on file 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 Gender Identity Not on file Sexual Orientation Not on file documented as of this encounter Last Filed Vital Signs Vital Sign Reading Time Taken Comments Blood Pressure 159/64 05/27/2021 11:00 AM CDT Pulse 60 05/27/2021 11:00 AM CDT Temperature - - Respiratory Rate - - Oxygen Saturation 99% 05/27/2021 11:00 AM CDT Inhaled Oxygen Concentration - - Weight 86.6 kg (191 lb) 05/27/2021 11:00 AM CDT Height 170.2 cm (5' 7 ) 05/27/2021 11:00 AM CDT Body Mass Index 29.91 05/27/2021 11:00 AM CDT documented in this encounter Progress Notes * Zachary Giron MD - 05/27/2021 10:30 AM CDT Images from the original note were not included. Vascular Clinic Note- Established Patient Suma Saenz is a 75 y.o. 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 HPI: This nice lady returns for follow-up. She underwent complex revascularization of her great vessels a few years back, and remains asymptomatic with regards to any TIA or stroke symptoms. No upperextremity claudication. We have been following a stenosis of her right carotid bifurcation and she will get her ultrasound done after today's appointment. She continues to take daily aspirin and statin agent. No difficulties with ambulation; she does have chronic back discomfort. Allergies Allergen Reactions ??? Naproxen Rash ??? Nsaids (Non-Steroidal Anti-Inflammatory Drug) Hives ??? Penicillins Rash ??? Sulfa (Sulfonamide Antibiotics) Rash Current Outpatient Medications Medication Sig Dispense Refill ??? acetaminophen 500 mg capsule Take 2 capsules (1,000 mg total) by mouth every 6 (six) hours as needed for pain 30 tablet ??? allopurinoL (ZYLOPRIM) 100 mg tablet ??? [...] into the rectum dailyas needed for constipation (Patient not taking: Reported on 05/10/2021) 12 suppository ??? buPROPion XL (WELLBUTRIN XL) [...] oral route every day 0 0 ??? clindamycin (CLEOCIN) 300 mg capsule (Patient not taking: Reported on 05/10/2021) ??? doxycycline (ADOXA) 50 mg tablet Take 50 mg by mouth 2 (two) times a day. (Patient not taking: Reported on 05/10/2021) ??? hydroCHLOROthiazide (HYDRODIURIL) 25 mg tablet Take 25 mg by mouth daily ??? Lactobacillus acidophilus capsule Take by mouth ??? lisinopriL (PRINIVIL,ZESTRIL) 10 mg tablet Take 1 tablet (10 mg total) by mouth daily 30 ??? medical cannabis each 1 Dose as needed ??? mesalamine (PENTASA) 250 mg CR capsule [...] IMPLANTATION Bilateral 2018 Social History Tobacco Use ??? Smoking status: [...] disorder - (Added by TW Conv) ROS: I reviewed the Patient Health History Form, which will be scanned into the EMR. Pertinent positives include: No chest pain, TIA or stroke.. Otherwise negative throughout. PHYSICAL EXAM: BP 159/64 Pulse 60 Ht 170.2 cm (5' 7 ) Wt 86.6 kg (191 lb) SpO2 99% BMI 29.91 kg/m?? Alert and oriented x3. Affect is appropriate. Facial musculature is symmetric. Right carotid bruit.The previous surgical incisions are fully healed. Her neck extension and rotation are moderate in nature. Neurologically she appears grossly intact. The radial pulses are palpable. Abdomen is soft and benign to palpation. The femoral pulses are palpable. The lower extremities were not examined. Impression and Plan: She will go for carotid duplex scan today. If she has had significant progression of her right-sided disease, I will discuss the performance of right carotid endarterectomy with her, which may require preprocedural CT angiography. She understands and agrees to this plan of care. She knows to seek immediate medical attention if she develops any signs or symptoms of TIA or stroke. 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
--- OUTSIDE RECORDS SUMMARY | 2024-09-08 08:22 | XMS_ITS | Encounter Summary ---
Author Organization [facility] Address [address] [place] [address] Care Team Providers Care Civil Engineering Professor Name Role Phone Zachary Giron MD Unavailable Azar Lara MD Unavailable Abbe Nails MD Primary Care Provider [phone] Encounter Details Date Type Department Care Team (Late st Contact Info) Description 05/20/2021 Telephone [facility] Cardiology [address] [facility] [address] [place] [address] Marco A Antoine MD [address] [facility] [address] [place] [address] Social History Tobacco Use Types Packs/Day Years Used Date Smoking Tobacco: Former Cigarettes Smokeless Tobacco: Never Alcohol Use Standard Drinks/Week Comments Yes 0 (1 standard drink = 0.6 oz pur e alcohol) Comments Unknown Sex and Gender Information Value Date Recorded Sex Assigned at Not on file 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
--- OUTSIDE RECORDS SUMMARY | 2024-09-08 08:22 | XMS_ITS | Encounter Summary ---
Author Organization [facility] Address [address] [facility] [address] [place] [address] Phone Care Team Providers Care Hide Salter Name Role Phone Nanci Trujillo MD Unavailable [phone] Azar Lara MD Unavailable Abbe Nails MD Primary Care Provider [phone] Reason for Referral * Diagnostic Imaging (Routine) - Closed Specialty Diagnoses / Procedures Referred By Contac t Referred To Contact Diagnoses Encounter for surgical aftercare following surgery on the circulatory system Procedures US Carotids Duplex Bilateral Nanci Trujillo MD Phone: tel: fax: [facility] (All Locations) Referral ID Status Reason Start Date Expiration Date Visits Re quested Visits Authorized [id number] Closed 05/27/2021 06/26/2022 99 99 Encounter Details Date Type Department Care Team (Late st Contact Info) Description 05/27/2021 Orders Only [facility] Surgery [address] 8th [place] [address] [place] [phone] Nanci Trujillo MD [address] [facility] [address] [place] [address] Encounter for surgical aftercare following surgery on the circulatory system Social History Tobacco Use Types Packs/Day Years Used Date Smoking Tobacco: Former Cigarettes Smokeless Tobacco: Never Alcohol Use Standard Drinks/Week Comments Yes 0 (1 standard drink = 0.6 oz pur e alcohol) Comments Unknown Sex and Gender Information Value Date Recorded Sex Assigned at Not on file 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 Gender Identity Not on file Sexual Orientation Not on file documented as of this encounter Plan of Treatment Not on file documented as of this encounter Results * US Carotids Duplex Bilateral (06/09/2022 11:23 AM CDT) Anatomical Region Laterality Modality Vascular Bilateral Ultrasound 06/09/2022 10:4 6 AM CDT Narrative 06/09/2022 10:16 PM CDT [facility] - Department of Vascular Surgery, Vascular Laboratory [address] [place] [address] Carotid Duplex Ultrasound Report Patient Name: SUMA SAENZ : 1945 (76y 5m) Study Date: 06/09/2022 10:46:18 AM Gender: F Tech: Location: [facility] Ref.Provider: NANCI TRUJILLO Quality: Adequate Order [...] ? Left Carotid ? - Findings: Performing Boat Wrapper: Ambika Mars RVT, RDMS. Rt Common Carotid [...] performed. Electronically Signed By: Surinder Cardenas MD [facility] 2022-06-09 22:16:53 CDT CC: CC: Procedure Note Surinder Cardenas MD - 06/09/2022 [facility] - Department of Vascular Surgery,Vascular Laboratory [address] [place] [address] Carotid Duplex Ultrasound Report Patient Name: SUMA SAENZPatient ID: [id number] : 1945 (76y 5m)Study Date: 06/09/2022 10:46:18 AM Gender: FAccession #: [id number] Tech: CGLocation: [facility] Ref.Provider: NANCI TRUJILLOQuality: Adequate Order Provider: NANCI TRUJILLOAccount #: [id number] Procedures: Carotid Report: Carotid duplex examination of [...] Right Carotid Left Carotid - Findings: Performing Boat Wrapper: Ambika Mars RVT, RDMS. Rt Common Carotid [...] performed. Electronically Signed By: Surinder Cardenas MD [facility] 2022-06-09 22:16:53 CDT CC: CC: Nanci Trujillo MD [facility] US PROCEDURES Final R esult documented in this encounter Visit Diagnoses Diagnosis Encounter for surgical aftercare following surgery on the circulatory system Encounter for surgical aftercare following surgery on the circulatory system documented in this encounter Care Teams Hide Salter Relationship Specialty Start Date End Date Abbe Nails MD [address] [address] PCP - General 11/03/19 06/30/22 Nanci Trujillo MD Surgeon Vascular Surgery 10/12/19 Azar Lara MD Surgeon Cardiothoracic Surgery 10/27/19 documented as of this encounter
--- OUTSIDE RECORDS SUMMARY | 2024-09-08 08:22 | XMS_ITS | Encounter Summary ---
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 [I65.21] Procedures [place] THROMBOENDARTECTMY NECK,NECK INCIS ENDARTERECTOMY - CAROTID WITH PATCH GRAFT Referral ID Status Reason Start Date Expiration Date Visits Re quested Visits Authorized [id number] 1 1 Encounter Details Date Type Department Care Team (Late st Contact Info) Description 07/17/2022 7:30 AM AIRBORNE OPERATIONS SUPERINTENDENT - 07/17/2022 10:55 AM AIRBORNE OPERATIONS SUPERINTENDENT Surgery [facility] Operating Room [address] [place] [address] Zachary Giron MD [id number] [place] [address] ENDARTERECTOMY - CAROTID WITH PATCH GRAFT Surgery Details Date/Time Status Location OR Service Patient Class Case Class Case Type Trauma Case? 07/17/2022 7:30 AM Posted [facility] OR POD 3 306 Vascular Surgery Admit Elective Panel 1 Procedure LRB Anes Op Region Wound Class Comments ENDARTERECTOMY - CAROTID WIT H PATCH GRAFT Right General Neck Class I - Clean Surgeon Surgeon Role Service Panel Kenisha Hughes MD Fellow Vascular 1 Zachary Giron MD Primary Vascular 1 documented in this encounter Social History Tobacco [...] on file Legal Sex Female 3:40 AM AIRBORNE OPERATIONS SUPERINTENDENT Gender Identity Not on file Sexual Orientation Not on file documented as of this encounter Last Filed Vital Signs Vital Sign Reading Time Taken Comments Blood Pressure - - Pulse - - Temperature 36.3 ??C (97.3 ??F) 07/17/2022 6:08 AM CS T Respiratory Rate - - Oxygen Saturation - - Inhaled Oxygen Concentration - - Weight - - Height - - Body Mass Index - - documented in this encounter Discharge Summaries * Doreen Rascon NP - 07/18/2022 9:45 AM CST Inpatient Discharge Summary BRIEF OVERVIEW Admitting Provider: Zachary Giron MD Discharge Provider: Zachary Giron MD Primary Care Physician at Discharge: Perez Heller DO [phone] Admission Date: 07/17/2022 Discharge Date: 07/18/2022 Admission Location: [facility] Problems/Diagnoses: Principal Problem: Occlusion and stenosis [...] Specialty: Family Medicine Relationship: PCP - General [address] [place] [id number] Next Steps: Follow up Zachary Giron MD Specialty: Vascular Surgery, General Surgery [id number] [facility] [address] Next Steps: Follow up Instructions: please follow up in 4 weeks Questions: Instructions for follow-up (appointment date and time): please follow up in 4 weeks To provider: ZACHARY GIRON Josh, DO Specialty: Family Medicine Relationship: PCP General [address] [place] [address] Next Steps: Follow up Instructions: follow up in 10-14 days Questions: To provider: PEREZ HELLER Instructions for follow-up (appointment date and time): follow up in 10-14 days Cosigned by Zachary Giron MD at 07/18/2022 12:48 PM AIRBORNE OPERATIONS SUPERINTENDENT ORNE OPERATIONS SUPERINTENDENT ORNE OPERATIONS SUPERINTENDENT documented in this encounter Discharge Instructions * Discharge Instructions* Doreen Rascon NP - 07/18/2022 9:55 AM AIRBORNE OPERATIONS SUPERINTENDENT Please hold your blood pressure medications if your SBP is less than 110 and call your PCP. ORNE OPERATIONS SUPERINTENDENT * Appointments* Nilda Sanchez RN - 07/18/2022 9:42 AM AIRBORNE OPERATIONS SUPERINTENDENT This is the earliest appointment with your PCP, Please bring discharge paperwork with list of medicines, insurance card and photo ID to appointment. Please arrive at least 15 minutes early prior to appointment. If you are unable to keep this appointment, it is very important you call to reschedule. ORNE OPERATIONS SUPERINTENDENT documented in this encounter Medications at Time [...] (two) times a day 60 tablet 11 11/04/2019 cetirizine (ZyrTEC) 10 mg tablet take [...] Sanchez RN - 07/18/2022 10:05 AM CST JAIME Initial Assessment Interview Note Information Obtained From: Patient (07/18/221002) Admission Source: home Impression: Patient admitted s/p RCEA Plan Includes: No home needs identified Primary Source of Transportation: Does the patient need discharge transport arranged?: No Has discharge transport been arranged?: No (07/18/221002) Health Insurance Coverage: [facility] medicare Prescription Coverage: yes Pharmacy: [facility] Primary Care Provider: Perez Heller DO Prior to Admission: Primary Caregiver: Self Who does the patient or legal guardian want to receive education instruction and discharge plans for after care assistance?: Decline Support System: Spouse/Significant Other Support system contact info (name, phone, availablity): Juice [phone] Home Care Services: No Durable Medical Equipment: Walker (wheeled), Cane (single prong) Living Arrangements: Spouse/significant other Type of Residence: Private residence Steps in home? : Yes, Outside of home, Yes, Inside home Number of steps inside:: 12 steps Number of steps outside:: 1 steps (07/17/22 1703) Potential discharge needs include: none Dialysis: n/a Behavioral Health Services: Behavioral Health Services: No (07/18/22 100) Patient expects to be Discharged to: Private [...] Collaboration with patient, MD, direct care nurse, Peoplesoft Crm Developer, and other members of the health care team to assure needed interventions completed. 2. Return patient to optimal level of self-care post discharge. 3. Filler Shredder will follow for Discharge Planning - interventions [...] with the aftercare plan. Nilda Sanchez RN ORNE OPERATIONS SUPERINTENDENT * Nilda Sanchez RN - 07/18/2022 9:42 AM CST 07/18/22 09 Discharge Summary Chart reviewed For Medical Necessity [...] appointment made. Nurse to instructon d/c orders. ORNE OPERATIONS SUPERINTENDENT * Doreen Rascon NP - 07/18/2022 7:50 AM CST Vascular Surgery Daily Progress Patient Name/MRN: Suma Saenz [id number] Treatment Team: Vascular Surgery- Pager: [phone] Attending: Zachary Giron MD Today's Date: 07/18/2022 Room/Bed: [id number] Admit Date: 07/17/2022 Code Status: Full Code [...] Kenisha Hughes MD 325 mg at 07/17/22 1635 atorvastatin [...] - Alva discontinued overnight, passed void trial Tanner Jonas García MD For patients or family members viewing this note through [employer] programs: This note was written as a [...] Zachary Giron MD at 07/18/2022 3:10 PM AIRBORNE OPERATIONS SUPERINTENDENT ORNE OPERATIONS SUPERINTENDENT ORNE OPERATIONS SUPERINTENDENT * Cassidy Anglin NP - 07/17/2022 5:49 PM CST Vascular Surgery Daily Progress Patient Name/MRN: Suma Saenz [id number] Treatment Team: Vascular Surgery- Pager: [phone] Attending: Zachary Giron MD Today's Date: 07/17/2022 Room/Bed: [id number] Admit Date: 07/17/2022 Code Status: Full Code [...] Daily-2100 Kenisha Hughes MD 40 mg at 07/17/22 205 Lactated Ringer's (LR) infusion 30 mL/hr intravenous [...] or family members viewing this note through [employer] programs: This note was written as a [...] no longer be involved in your care. ORNE OPERATIONS SUPERINTENDENT ORNE OPERATIONS SUPERINTENDENT documented in this encounter H&P Notes * [...] Zachary Giron MD at 07/17/2022 7:26 AM AIRBORNE OPERATIONS SUPERINTENDENT ORNE OPERATIONS SUPERINTENDENT ORNE OPERATIONS SUPERINTENDENT Source Note - Montserrat Garrison NP - 07/03/2022 1:36 PM CDT Images from the original note were not included. [facility] Preoperative Assessment and Planning Preoperative Evaluation Record Evaluation type/location: [facility] Planned procedure site: [facility] (Pods 2/3/5/ACTUARY) Date: 07/03/22 Anesthesia Evaluation Suma Saenz is [...] MR - mild; Pertinent negatives: CAD ; IN ; CABG ; valve replacement; atrial fibrillation; [...] of discharge needs will improve Outcome: Progressing ORNE OPERATIONS SUPERINTENDENT * Assessment & Plan Note - Doreen Rascon NP - 07/18/2022 7:49 AM CSTAssociated Problem(s): Hypertension Home regimen: lisinopril 10mg, coreg 25mg BID, amlodipine 10mg, HCTZ 25mg every day -restarted all meds except HCTZ, can restart at dc ORNE OPERATIONS SUPERINTENDENT * Plan of Care - Rossy Chavez RN - 07/17/2022 11:21 PM CST Problem: Health Behavior: Goal: Understanding of discharge needs will improve Outcome: Progressing Goals: Clinical goals of the shift: Monitor VS, NV checks, pain control, SBP goal 120- 160, I/O's, void trial 2330, obtain labs, & sleep hygiene. Summary: ORNE OPERATIONS SUPERINTENDENT * Plan of Care - Shira Zuleta RN - 07/17/2022 5:06 PM CST Problem: Health Behavior: Goal: Understanding of discharge needs will improve Outcome: Progressing ORNE OPERATIONS SUPERINTENDENT * Perioperative Nursing Note - Mamta Ordonez RN - 07/17/2022 10:15 AM CST 09:25 am clamp, 09:29 clamp off ORNE OPERATIONS SUPERINTENDENT * Op Note - Zachary Giron MD - 07/17/2022 8:34 AM CST Date of Surgery: 07/17/2022 Patient Name:Suma Saenz Patient :1945 Patient Attending Surgeon: Zachary Giron MD First [employer] Source Operator: Kenisha Hughes MD Preoperative Diagnosis: Severe asymptomatic [...] on Discharge from Operating Room: Stable . ORNE OPERATIONS SUPERINTENDENT * Assessment & Plan Note - Cassidy Anglin NP - 07/17/2022 5:44 AM CSTAssociated Problem(s): Occlusion and stenosis of right carotid artery - OR 07/17 for R CEA -dc OU, Q4 NV checks - SBP goal above 120 - Continue aspirin + statin daily - SARAI removed this morning - OOB this morning, walking - Alva discontinued overnight, passed void trial ORNE OPERATIONS SUPERINTENDENT ORNE OPERATIONS SUPERINTENDENT ORNE OPERATIONS SUPERINTENDENT ORNE OPERATIONS SUPERINTENDENT documented in this encounter Plan of Treatment Not on file documented as of this encounter Procedures Procedure Name Priority Date/Time Associated Diagnosis Comments EGFR Routine 07/17/2022 9:05 PM AIRBORNE OPERATIONS SUPERINTENDENT DIFFERENTIAL AUTO Routine 07/17/2022 9:0 5 PM AIRBORNE OPERATIONS SUPERINTENDENT CBC WITH AUTO DIFFERENTIAL Routine 07/17/2022 9:05 PM AIRBORNE OPERATIONS SUPERINTENDENT LIPID PANEL Routine 07/17/2022 9:05 PM AIRBORNE OPERATIONS SUPERINTENDENT BASIC METABOLIC PANEL Routine 07/17/2022 9:05 PM AIRBORNE OPERATIONS SUPERINTENDENT POCT ACTIVATED CLOTTING TIME, LOW RANGE Routine 07/17/2022 10:35 AM AIRBORNE OPERATIONS SUPERINTENDENT POC BLOOD GAS AND CHEMISTRIES, ARTERIAL Routine 07/17/2022 10:32 AM AIRBORNE OPERATIONS SUPERINTENDENT POCT ACTIVATED CLOTTING TIME, LOW RANGE Routine 07/17/2022 10:26 AM AIRBORNE OPERATIONS SUPERINTENDENT POCT ACTIVATED CLOTTING TIME, LOW RANGE Routine 07/17/2022 9:55 AM AIRBORNE OPERATIONS SUPERINTENDENT POCT ACTIVATED CLOTTING TIME, LOW RANGE Routine 07/17/2022 9:34 AM AIRBORNE OPERATIONS SUPERINTENDENT POC BLOOD GAS AND CHEMISTRIES, ARTERIAL Routine 07/17/2022 9:16 AM AIRBORNE OPERATIONS SUPERINTENDENT POCT ACTIVATED CLOTTING TIME, LOW RANGE Routine 07/17/2022 9:08 AM AIRBORNE OPERATIONS SUPERINTENDENT ENDARTERECTOMY - CAROTID WITH PATCH GRAFT 07/17/2022 7:31 AM AIRBORNE OPERATIONS SUPERINTENDENT Occlusion and stenosis of right carotid artery COVID-19 CORONAVIRUS RNA Routine 07/17/2022 6:17 AM AIRBORNE OPERATIONS SUPERINTENDENT documented in this encounter Results * Lipid panel (07/17/2022 9:05 PM AIRBORNE OPERATIONS SUPERINTENDENT) Cholesterol 114 30 - 199 mg/dL [facility] Comment: Interpretive Data Ages < or = [...] on 2018. Triglycerides 50 <=149 mg/dL [facility] Comment: Interpretive Data Ages < or = [...] revised on 2018. HDL 61 >=40 mg/dL [facility] Comment: Interpretive Data Ages < or = [...] on 2018. LDL, calculated 43 <=129 mg/dL [facility] Comment: Interpretive Data Ages < or = [...] revised on 2018. Non-HDL Cholesterol 53 mg/dL [facility] Comment: Interpretive Data Ages < or = [...] last revised on 2018. Chol/HDL ratio 2 [facility] Blood 07/17/2022 9:05 PM AIRBORNE OPERATIONS SUPERINTENDENT 07/17/2022 9:44 PM AIRBORNE OPERATIONS SUPERINTENDENT us Zachary Giron MD LAB BLOOD ORDERABLES Tiffany pacheco Result [facility] [place] [address] * eGFR (07/17/2022 9:05 PM AIRBORNE OPERATIONS SUPERINTENDENT) eGFR >90 90 - 130 mL/min/1. 73 m2 [facility] Comment: Interpretive Data Reference Interval Normal ?>/= [...] of Race in Diagnosing Kidney Disease, JASN 202). The CKD-EPI equation should not be used for patients with unstable renal function and has not been validated in children and those over 70. Current interpretive data was last reviewed 2021. Blood 07/17/2022 9:05 PM AIRBORNE OPERATIONS SUPERINTENDENT 07/17/2022 9:44 PM AIRBORNE OPERATIONS SUPERINTENDENT us Zachary Giron MD LAB BLOOD ORDERABLES Tiffany pacheco Result [facility] [place] [address] * Differential, auto (07/17/2022 9:05 PM AIRBORNE OPERATIONS SUPERINTENDENT) Neutrophil abs 5.6 1.7 - 6.5 K/cumm [facility] Imm gran abs 0.0 0.0 - 0.1 K/cumm [facility] Lymphocyte abs 0.8 0.8 - 3.3 K/cumm [facility] Monocyte abs 0.4 0.2 - 0.8 K/cumm [facility] Eosinophil abs 0.0 0.0 - 0.5 K/cumm [facility] Basophil abs 0.0 0.0 - 0.1 K/cumm [facility] Neutrophil pct 82.3 % [facility] Comment: Interpretive Data Percent cell count reference ranges are not reported, since discordance with absolute values may lead to misinterpretation of CBC data. Current Interpretive Data was last revised on 2017. Imm gran pct 0.4 % [facility] Comment: Interpretive Data Percent cell count reference ranges are not reported, since discordance with absolute values may lead to misinterpretation of CBC data. Current Interpretive Data was last revised on 2017. Lymphocyte pct 11.0 % [facility] Comment: Interpretive Data Percent cell count reference ranges are not reported, since discordance with absolute values may lead to misinterpretation of CBC data. Current Interpretive Data was last revised on 2017. Monocyte pct 6.0 % [facility] Comment: Interpretive Data Percent cell count reference ranges are not reported, since discordance with absolute values may lead to misinterpretation of CBC data. Current Interpretive Data was last revised on 2017. Eosinophil pct 0.0 % [facility] Comment: Interpretive Data Percent cell count reference ranges are not reported, since discordance with absolute values may lead to misinterpretation of CBC data. Current Interpretive Data was last revised on 2017. Basophil pct 0.3 % [facility] Comment: Interpretive Data Percent cell count reference ranges are not reported, since discordance with absolute values may lead to misinterpretation of CBC data. Current Interpretive Data was last revised on 2017. Blood 07/17/2022 9:05 PM AIRBORNE OPERATIONS SUPERINTENDENT 07/17/2022 9:44 PM AIRBORNE OPERATIONS SUPERINTENDENT us Zachary Giron MD LAB BLOOD ORDERABLES Tiffany l Result [facility] [place] [address] * Basic metabolic panel (07/17/2022 9:05 PM AIRBORNE OPERATIONS SUPERINTENDENT) Sodium 137 135 - 145 mmol/L [facility] Potassium, pl 3.8 3.3 - 4.9 mmol/L [facility] Chloride 104 97 - 110 mmol/L [facility] CO2 22 22 - 32 mmol/L [facility] Anion gap 11 2 - 15 mmol/L [facility] BUN 16 8 - 25 mg/dL [facility] Creatinine 0.69 0.60 - 1.10 mg/dL [facility] Glucose 155 70 - 199 mg/dL [facility] Comment: Interpretive Data Fasting glucose >/= 126 [...] 2017. Calcium 8.5 8.5 - 10.3 mg/dL [facility] Blood 07/17/2022 9:05 PM AIRBORNE OPERATIONS SUPERINTENDENT 07/17/2022 9:44 PM AIRBORNE OPERATIONS SUPERINTENDENT Zachary Giron MD LAB BLOOD ORDERABLES Tiffany l Result Performing Organization Address [facility] Co de Phone Number [facility] Department [place] [address] * (ABNORMAL) CBC with auto differential (07/17/2022 9:05 PM AIRBORNE OPERATIONS SUPERINTENDENT) Pathologist [facility] WBC 6.8 3.8 - 9.9 K/cumm [facility] Hgb 11.7(L) 11.9 - 15.5 g/dL [facility] Hct 34.0(L) 35.6 - 45.5 % [facility] Plt 190 150 - 400 K/cumm [facility] MPV 9.7 9.1 - 12.3 fL [facility] RBC 3.57(L) 3.90 - 5.20 M/cumm [facility] MCV 95.2 81.3 - 96.4 fL [facility] MCH 32.8 27.1 - 33.3 pg [facility] MCHC 34.4 32.3 - 35.7 g/dL [facility] RDW CV 13.3 11.1 - 14.9 % [facility] RDW SD 46.5 35.7 - 48.1 fL [facility] NRBC abs 0.00 0.00 - 0.01 K/cumm [facility] Blood 07/17/2022 9:05 PM AIRBORNE OPERATIONS SUPERINTENDENT 07/17/2022 9:44 PM AIRBORNE OPERATIONS SUPERINTENDENT Zachary Giron MD LAB BLOOD ORDERABLES Tiffany l Result Performing Organization Address [facility]/ZIP Co de Phone Number [facility] [address] [place] [address] * POCT Activated clotting time, low range (07/17/2022 10:35 AM AIRBORNE OPERATIONS SUPERINTENDENT) ACT 155 123 - 168 sec [facility] Blood 07/17/2022 10:3 5 AM AIRBORNE OPERATIONS SUPERINTENDENT 07/17/2022 10:35 AM AIRBORNE OPERATIONS SUPERINTENDENT us Zachary Giron MD LAB POCT ORDERABLES - DEV ICE Final Result [facility] [place] [address] * (ABNORMAL) POC Blood Gas and Chemistries, Arterial - (07/17/2022 10:32 AM AIRBORNE OPERATIONS SUPERINTENDENT) pH, Art POC 7.36 7.35 - 7.45 [facility] pCO2, Art POC 40 35 - 45 mmHg [facility] pO2, Art POC 238(H) 83 - 108 mmHg [facility] Na, POC 139 135 - 145 mmol/L [facility] K POC 4.0 3.3 - 4.9 mmol/L [facility] Comment: Interpretive Data This method is not able to assess for hemolysis, which may falsely increase potassium concentrations. If further testing is needed to evaluate this result, consider in-laboratory plasma potassium. Current Interpretive Data was last revised on 2022. Cl, POC 109 97 - 110 mmol/L [facility] Ionized Ca, POC 4.93 4.50 - 5.10 mg/dL [facility] Glucose, POC 123 70 - 199 mg/dL [facility] Lactate, POC 0.9 0.7 - 2.2 mmol/L [facility] SO2 (angel) arterial 100(H) 90 - 95 % [facility] Base excess, POC -2.7 mmol/L [facility] HCO3, Art POC 23 20 - 30 mmol/L [facility] Hct, POC 38.0 36.3 - 45.3 % [facility] O2 Sat, Art POC (Calc) 100 % [facility] Total Hb, POC 12.6 11.9 - 15.5 g/dL [facility] Blood 07/17/2022 10:3 2 AM AIRBORNE OPERATIONS SUPERINTENDENT 07/17/2022 10:32 AM AIRBORNE OPERATIONS SUPERINTENDENT Zachary Giron MD LAB POCT ORDERABLES - DEV ICE Final Result Performing Organization Address City/[facility] Co de Phone Number [facility] [address] [place] [address] * (ABNORMAL) POCT Activated clotting time, low range (07/17/2022 10:26 AM AIRBORNE OPERATIONS SUPERINTENDENT) ACT 257(H) 123 - 168 sec [facility] Blood 07/17/2022 10:2 6 AM AIRBORNE OPERATIONS SUPERINTENDENT 07/17/2022 10:26 AM AIRBORNE OPERATIONS SUPERINTENDENT Zachary Giron MD LAB POCT ORDERABLES - DEV ICE Final Result Performing Organization Address [facility] [place] [address] * (ABNORMAL) POCT Activated clotting time, low range (07/17/2022 9:55 AM AIRBORNE OPERATIONS SUPERINTENDENT) ACT 280(H) 123 - 168 sec [facility] Blood 07/17/2022 9:55 AM AIRBORNE OPERATIONS SUPERINTENDENT 07/17/2022 9:55 AM AIRBORNE OPERATIONS SUPERINTENDENT us Zachary Giron MD LAB POCT ORDERABLES - DEV ICE Final Result Performing Organization Address [facility] de Phone Number [facility] Department of [address] [place] [address] * (ABNORMAL) POCT Activated clotting time, low range (07/17/2022 9:34 AM AIRBORNE OPERATIONS SUPERINTENDENT) ACT 302(H) 123 - 168 sec [facility] Blood 07/17/2022 9:34 AM AIRBORNE OPERATIONS SUPERINTENDENT 07/17/2022 9:34 AM AIRBORNE OPERATIONS SUPERINTENDENT us Zachary Giron MD LAB POCT ORDERABLES - DEV ICE Final Result Performing Organization Address [facility] de Phone Number [facility] Department [place] [address] * (ABNORMAL) POC Blood Gas and Chemistries, Arterial - (07/17/2022 9:16 AM AIRBORNE OPERATIONS SUPERINTENDENT) pH, Art POC 7.32(L) 7.35 - 7.45 [facility] pCO2, Art POC 42 35 - 45 mmHg [facility] pO2, Art POC 153(H) 83 - 108 mmHg [facility] Na, POC 138 135 - 145 mmol/L [facility] K POC 4.0 3.3 - 4.9 mmol/L [facility] Comment: Interpretive Data This method is not able to assess for hemolysis, which may falsely increase potassium concentrations. If further testing is needed to evaluate this result, consider in-laboratory plasma potassium. Current Interpretive Data was last revised on 2022. Cl, POC 106 97 - 110 mmol/L [facility] Ionized Ca, POC 4.62 4.50 - 5.10 mg/dL [facility] Glucose, POC 119 70 - 199 mg/dL [facility] Lactate, POC 1.0 0.7 - 2.2 mmol/L [facility] SO2 (angel) arterial 99(H) 90 - 95 % [facility] Base excess, POC -4.3 mmol/L [facility] HCO3, Art POC 22 20 - 30 mmol/L [facility] Hct, POC 40.0 36.3 - 45.3 % [facility] O2 Sat, Art POC (Calc) 99 % [facility] Total Hb, POC 13.4 11.9 - 15.5 g/dL [facility] Blood 07/17/2022 9:16 AM AIRBORNE OPERATIONS SUPERINTENDENT 07/17/2022 9:16 AM AIRBORNE OPERATIONS SUPERINTENDENT us Zachary Giron MD LAB POCT ORDERABLES - DEV ICE Final Result [facility] [place] [address] * (ABNORMAL) POCT Activated clotting time, low range (07/17/2022 9:08 AM AIRBORNE OPERATIONS SUPERINTENDENT) ACT 339(H) 123 - 168 sec [facility] Blood 07/17/2022 9:08 AM AIRBORNE OPERATIONS SUPERINTENDENT 07/17/2022 9:08 AM AIRBORNE OPERATIONS SUPERINTENDENT us Zachary Giron MD LAB POCT ORDERABLES - DEV ICE Final Result [facility] [place] [address] * COVID-19 Coronavirus RNA Nasopharyngeal (07/17/2022 6:17 AM AIRBORNE OPERATIONS SUPERINTENDENT) Pathologist [facility] COVID-19 RNA Negative Negative [facility] Nasopharyngeal 07/17/2022 6: 17 AM AIRBORNE OPERATIONS SUPERINTENDENT 07/17/2022 6:34 AM AIRBORNE OPERATIONS SUPERINTENDENT Narrative [facility] - 07/17/2022 7:15 AM AIRBORNE OPERATIONS SUPERINTENDENT Is the patient experiencing any symptoms consistent with COVID (eg. Fever, cough, shortness of breath)?->No What is the reason for testing?->Bed placement or semi-private room (Rapid) ??Interpretive data: Synonyms for this test include: PCR and NAAT . ??This test is performed using the [employer] Xpert Xpress plus assay. This is a [...] . ??This test is performed using the [employer] Xpert Xpress plus assay. This is a [...] - GENERA L ORDERABLES Final Result [facility] [place] [address] documented in this encounter Visit Diagnoses Diagnosis Occlusion and stenosis of right carotid artery- Primary Occlusion and stenosis of right carotid artery documented in this encounter Admitting Diagnoses Diagnosis [...] & Post-op Floor Given 07/18/2022 3:02 AM AIRBORNE OPERATIONS SUPERINTENDENT 1,000 mg Given 07/17/2022 8:57 PM AIRBORNE OPERATIONS SUPERINTENDENT 1,000 mg allopurinoL (ZYLOPRIM) tablet 100 mg 100 mg, oral, Nightly, First dose on Anuradha 07/17/22 at 2100, Indications: prevention of acute gout attackIndications:prevention of acute gout attack Given 07/17/2022 8:58 PM AIRBORNE OPERATIONS SUPERINTENDENT 100 mg aspirin tablet 325 mg 325 mg, oral, Daily, First dose on Anuradha 07/17/22 at 1630 Given 07/18/2022 8:05 AM [employer]NE OPERATIONS SUPERINTENDENT 325 mg Given 07/17/2022 4:35 PM [employer]NE OPERATIONS SUPERINTENDENT 325 mg atorvastatin (LIPITOR) tablet 80 mg 80 mg, oral, Daily, First dose on Anuradha 07/17/22 at 1630 Given 07/18/2022 8:05 AM [employer]NE OPERATIONS SUPERINTENDENT 80 mg Given 07/17/2022 4:35 PM [employer]NE OPERATIONS SUPERINTENDENT 80 mg buPROPion XL (WELLBUTRIN XL) 24 hour tablet 150 mg 150 mg, oral, Daily, First dose on Anuradha 07/17/22 at 1630, Do not crush, chew, cut, dissolve, open or otherwise manipulate tablet/capsule. Given 07/18/2022 8:05 AM AIRBORNE OPERATIONS SUPERINTENDENT 150 mg Given 07/17/2022 4:35 PM [employer]NE OPERATIONS SUPERINTENDENT 150 mg enoxaparin (LOVENOX) syringe 40 mg 40 mg, subcutaneous, Daily (for enoxaparin), First dose on Anuradha 07/17/22 at 2100, Indications: Deep Vein Thrombosis PreventionIndications:Deep Vein Thrombosis Prevention Given 07/17/2022 8:58 PM [employer] OPERATIONS SUPERINTENDENT 40 mg Left Lower Abdomen heparin in 0.9% sodium chloride 2,000 unit/1,000 mL (2 unit/mL) infusion (premix) As needed, Starting on Anuradha 07/17/22 at 0849, Intra-Op Given 07/17/2022 8:49 AM [employer] OPERATIONS SUPERINTENDENT 500 mL sodium chloride 0.9% irrigation As needed, Starting on Anuradha 07/17/22 at 0850, Intra-Op Given 07/17/2022 8:50 AM [employer] OPERATIONS SUPERINTENDENT 1,000 mL Surgical Site sterile water irrigation As needed, Starting on Anuradha 07/17/22 at 0850, Intra-Op Given 07/17/2022 8:50 AM [employer]BORNE OPERATIONS SUPERINTENDENT 1,000 mL Other (Comment) traMADoL (ULTRAM) tablet 50 mg 50 mg, oral, Every 6 hours PRN, 1st line for pain, Starting on Anuradha 07/17/22 at 1220, Phase I & Post-op Floor, Indications: PainIndications:Pain Given 07/18/2022 7:15 AM [employer]PERATIONS SUPERINTENDENT 50 mg Given 07/17/2022 11:29 PM [employer]NE [employer]PERATIONS SUPERINTENDENT 50 mg Given 07/17/2022 4:35 PM [employer]NE [employer]PERATIONS SUPERINTENDENT 50 mg documented in this encounter Active and Recently Administered Medications Times are shown in [employer]NE [employer]PERATIONS SUPERINTENDENT. Scheduled Medication Order 07/16/2022 07/17/2022 07/18/2022 acetaminophen [...] Thrombosis Prevention 2057 (Given - Provider: Rossy Chavez, SENG) lisinopriL (PRINIVIL,ZESTRIL) tablet 10 mg 10 mg, oral, Daily, First dose on Anuradha 07/17/22 at 1630 1623 (Not Given - Provider: Shira Zuleta RN - Reason: Patient/family refused) 0901 (Not Given - Provider: Shira Zuleta RN - Reason: Patient/family refused) sodium chloride 0.9% flush 0.5-20 mL 0.5-20 mL, intra-catheter, Every 8 hours scheduled, First dose on Thu07/17/22 at 1630, Flush volume based on line type and size. 1622 (Not Given - Provider: Shira Zuleta RN - Reason: IV Infusing)2119 (Not Given - Provider: Rossy Chavez RN [...] Myers RN)1152 (Rate/Dose Change - Provider: Tejal Myers RN)1209 (Rate/Dose Change - Provider: Tejal Myers RN)1226 (Rate/Dose Change - Provider: Tejal Myres RN)1600 (Rate/Dose Verify - Provider: Shira Zuleta [...] at 1146, Phase I & Post-op Floor 2056 (Given - Provider: Rossy Chavez RN) 0302 [...] Indications: Pain 1200 (Given - Provider: Tejal Myers, SENG)1214 (Given - Provider: Tejal Myers RN) sodium [...] Shira Zuleta RN)2329 (Given - Provider: Rossy Chavez, SENG) 0715 (Given - Provider: Rossy Chavez RN) documented in this encounter Orders Medications Ordered That Chris ht Not Have Been Administered Count Last Ordered Date First Ordered Date acetaminophen (TYLENOL) tablet 1,000 mg 1 1 09/16/2021 acetaminophen (TYLENOL) tablet 500 mg 1 06/2022 allopurinoL (ZYLOPRIM) tablet 100 mg 1 07/08 amLODIPine (NORVASC) tablet 10 mg 1 022 aspirin tablet 325 mg 1 07/17/2022 atorvastatin (LIPITOR) tablet 80 mg 1 07/17 buPROPion XL (WELLBUTRIN XL) 24 hour tablet 150 mg 1 07/17/2022 Carrier Fluids for Secondary Infusion - 0.9% Sodium Chloride 2 07/17/2022 carvediloL (COREG) tablet 25 mg 1 2 diphenhydrAMINE (BENADRYL) i njection 12.5 mg 1 07/17/2022 enoxaparin (LOVENOX) syringe 40 mg 1 2021 fentaNYL (SUBLIMAZE) preserv ative free injection 50 mcg 1 07/17/2022 haloperidol (HALDOL) injection 1 mg 1 07/17 hydrALAZINE (APRESOLINE) injection 5 mg 1 1 09/16/2021 HYDROmorphone (DILAUDID) injection 0.2 mg 1 07/17/2022 HYDROmorphone (DILAUDID) injection 0.4 mg 1 07/17/2022 labetaloL (NORMODYNE,TRANDAT E) injection 5 mg 1 07/17/2022 Lactated Ringer's (LR) infusion 1 2 lisinopriL (PRINIVIL,ZESTRIL) tablet 10 mg 1 07/17/2022 meperidine (DEMEROL) preserv ative free injection 12.5 mg 1 07/17/2022 naloxone (NARCAN) 0.4 mg/mL injection 0.04-0.4 mg 1 07/17/2022 oxyCODONE (ROXICODONE) tablet 5 mg 1 2021 phenylephrine in 0.9% sodium chloride (JEAN-SYNEPHRINE) 25,000 mcg/250 mL (100 mcg/mL) infusion (premix) solution 1 07/17/2022 prochlorperazine (COMPAZINE) injection 10 mg 1 07/17/2022 sodium chloride 0.9% flush 0.5-20 mL 3 07/08 sodium chloride 0.9% solution 1,000 mL 1 traMADoL (ULTRAM) tablet 50 mg 1 07/17/2022 vancomycin 1500 mg/515 mL in [...] 07/18/2022 documented in this encounter Care Teams Geophysical Drafter Relationship Specialty Start Date End Date Perez Heller DO [address] [place] [address] PCP - General Family Medicine 07/01/22 Zachary Giron MD Surgeon Vascular Surgery 10/12/19 Azar Lara MD Surgeon Cardiothoracic Surgery 10/27/19 documented as of this encounter
--- OUTSIDE RECORDS SUMMARY | 2024-09-08 08:22 | XMS_ITS | Encounter Summary ---
Author Organization [facility] Address [address] [place] [address] Phone Care Team Providers Care Nurse Substance Abuse Name Role Phone Zachary Giron MD Unavailable Azar Lara MD Unavailable Abbe Nails MD Primary Care Provider [phone] Encounter Details Date Type Department Care Team (Late st Contact Info) Description 05/28/2021 Telephone [facility] Surgery [address] [facility] Advanced Medicine 8th [place] [address] [place] [address] Zachary Giron MD [address] [facility] [address] [place] [address] Social History Tobacco Use Types Packs/Day Years Used Date Smoking Tobacco: Former Cigarettes Smokeless Tobacco: Never Alcohol Use Standard Drinks/Week Comments Yes 0 (1 standard drink = 0.6 oz pur e alcohol) Comments Unknown Sex and Gender Information Value Date Recorded Sex Assigned at Not on file 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 Saenz of the results. She will call the office with any issues between now and her next f/u. * Telephone Encounter - Annemarie Sexton RN - 05/28/2021 9:05 AM CDT ----- Message from Zachary Giron MD sent at 05/28/2021 6:56 AM CDT ----- Regarding: RE: Can you pls review the carotid done today? Thanks. Please let her know that it is completely stable from last visit. Only a moderate narrowing and I would recommend that we continue medical management with recheck in one year. ----- Message ----- From: Annemarie Sexton RN Sent: 05/27/2021 1:07 PM CDT To: Zachary Giron MD Subject: Can you pls review the carotid done today? # documented in this encounter Plan of Treatment Not on file documented as of this encounter Visit Diagnoses Not on filedocumented in this encounter Care Teams Nurse Substance Abuse Relationship Specialty Start Date End Date Abbe Nails MD [address] [place] [address] PCP - General 11/03/19 06/30/22 Zachary Giron MD Surgeon Vascular Surgery 10/12/19 Azar Lara MD Surgeon Cardiothoracic Surgery 10/27/19 documented as of this encounter
--- OUTSIDE RECORDS SUMMARY | 2024-09-08 08:22 | XMS_ITS | Encounter Summary ---
Author Organization [facility] Address [address] [place] [address] Phone Care Team Providers Care Refrigerator Repair Technician Name Role Phone Zachary Giron MD Unavailable Azar Lara MD Unavailable Perez Alexander DO Primary Care Provider Encounter Details Date Type Department Care Team (Late st Contact Info) Description 07/03/2022 Telephone [facility] Surgery [address] [facility] Advanced Medicine 8th [place] [address] [place] [address] Zachary Giron MD [address] [facility] [address] [place] [address] Social History Tobacco Use Types [...] on file 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 Luc dennis VM to explain it is the right carotid that we are working on. Asked to call me back. * Telephone Encounter - Annemarie Sexton RN - 07/03/2022 3:08 PM CDT ----- Message from Cassidy Reddy NP sent at 07/03/2022 2:47 PM CDT ----- Regarding: CPAP MSG - Bree Garcia, Patient was evaluated at CPAP appointment today. Patient is under the impression she is having a LEFT endarterectomy and is scheduled for a right. Please call patient to clarify procedure. Thank you, Cassidy Reddy NP >NOTE: There is no need to reply to this message but if you would like to send a non-urgent reply, please address it to the [facility] staff message POOL address [facility] CPAP ROTOR BLADE INSTALLER (number [phone]). Please note that messages to this address will be replied to within approximately 1 business day. If you have an urgent reply, please call the CPAP attending physician at [phone]. documented in this encounter Plan of Treatment Not on file documented as of this encounter Visit Diagnoses Not on filedocumented in this encounter Care Teams Refrigerator Repair Technician Relationship Specialty Start Date End Date Perez Alexander DO [address] [place] [address] PCP - General Family Medicine 07/01/22 Zachary Giron MD Surgeon Vascular Surgery 10/12/19 Azar Lara MD Surgeon Cardiothoracic Surgery 10/27/19 documented as of this encounter
--- OUTSIDE RECORDS SUMMARY | 2024-09-08 08:22 | XMS_ITS | Encounter Summary ---
Author Organization [facility] Address [address] [place] [address] Phone Care Team Providers Care Tutor Coordinator Name Role Phone Zachary Giron MD Unavailable [phone] Azar Lara MD Unavailable Abbe Nails MD Primary Care Provider [phone] Encounter Details Date Type Department Care Team (Late st Contact Info) Description 06/17/2022 Telephone [facility] Surgery [address] [facility] [address] [place] [address] Zachary Giron MD [address] [facility] [address] [place], [place] [id number] Social History Tobacco Use Types Packs/Day Years Used Date Smoking Tobacco: Former Cigarettes Smokeless Tobacco: Never Alcohol Use Standard Drinks/Week Comments Yes 0 (1 standard drink = 0.6 oz pur e alcohol) Comments Unknown Sex and Gender Information Value Date Recorded Sex Assigned at Not on file 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 Saenz on why Dr. Giron wanted her to see ENT prior to surgery. She verbalized understanding and will contact them to schedule. We will schedule her surgery a few weeksafter the ENT appointment. * Telephone Encounter - Michael Travis MBA - 06/17/2022 9:06 AM CDT Pt called and wanted to know why she has to see an ENT specialist. Advised pt that nurse will give her a call to explain reason why she has to see an ENT specialist. Shruthi Isabel documented in this encounter Plan of Treatment Not on file documented as of this encounter Visit Diagnoses Not on filedocumented in this encounter Care Teams Tutor Coordinator Relationship Specialty Start Date End Date Abbe Nails MD [address] [place] [address] PCP - General 11/03/19 06/30/22 Zachary Giron MD Surgeon Vascular Surgery 10/12/19 Azar Lara MD Surgeon Cardiothoracic Surgery 10/27/19 documented as of this encounter
--- OUTSIDE RECORDS SUMMARY | 2024-09-08 08:22 | XMS_ITS | Encounter Summary ---
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 [address] [place] [address] Phone: tel: fax: Referral ID Status Reason Start Date Expiration Date V isits Requested Visits Authorized [id number] Closed Specialty Services Required 05/14/2021 06/13/2022 12 12 Encounter Details Date Type Department Care Team (Late st Contact Info) Description 06/09/2022 11:45 AM CDT Office Visit [facility] Surgery [address] [place] [address] [place] [id number] Zacahry Giron MD [address] 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 Gender Identity Not on file Sexual Orientation Not on file documented as of this encounter Last Filed Vital Signs Vital Sign Reading Time Taken Comments Blood Pressure 177/70 06/09/2022 11:40 AM CDT Pulse 67 06/09/2022 11:40 AM CDT Temperature - - Respiratory Rate - - Oxygen Saturation 98% 06/09/2022 11:40 AM CDT Inhaled Oxygen Concentration - - Weight 83.9 kg (185 lb) 06/09/2022 11:40 AM CDT Height 170.2 cm (5' 7 ) 06/09/2022 11:40 AM CDT Body Mass Index 28.98 06/09/2022 11:40 AM CDT documented in this encounter Progress Notes * Zachary Giron MD - 06/09/2022 11:45 AM CDT Images from the original note were not included. Vascular Clinic Note- Established Patient Suma Saenz is a 76 y.o. female who is seen in follow-up for extensive great vessel atherosclerosis. HPI: This nice lady returns for follow-up. I performed reconstruction of her great vessels with several years ago. We have been following a right internal carotid artery stenosis which remains asymptomatic. On today's carotid duplex scan, that stenosis now exceeds 70% by our usual parameters. She is receiving a statin agent and daily aspirin therapy. Prior CTA suggested that the lesion was surgically accessible, focal, and heavily calcified. She had a cardiac catheterization recently which showed no significant coronary disease. She is not experiencing any angina. No TIAs or strokes.. Allergies Allergen Reactions Naproxen Rash Nsaids (Non-Steroidal Anti-Inflammatory Drug) Hives Penicillins Rash Sulfa (Sulfonamide Antibiotics) Rash Current Outpatient Medications Medication Sig Dispense Refill acetaminophen 500 mg capsule Take 2 capsules (1,000 mg total) by mouth every 6 (six) hours as needed for pain 30 tablet allopurinoL (ZYLOPRIM) 100 mg tablet amLODIPine (NORVASC) 10 mg tablet Take 1 tablet (10 mg total) by mouth daily 30 tablet 11 aspirin 325 mg tablet take 1 tablet by oral route every day 0 0 atorvastatin (LIPITOR) 80 mg tablet take 1 tablet by oral route every day 0 0 biotin 10,000 mcg capsule Take by mouth buPROPion XL (WELLBUTRIN XL) 150 mg 24 hr tablet take 1 tablet by oral route 2 times every day 0 0 carvediloL (COREG) 25 mg tablet Take 1 tablet (25 mg total) by mouth 2 (two) times a day 60 tablet 11 cetirizine (ZyrTEC) 10 mg tablet take 1 tablet by oral route every day 0 0 estradioL (ESTRACE) 0.01 % (0.1 mg/gram) vaginal cream hydroCHLOROthiazide (HYDRODIURIL) 25 mg tablet Take 25 mg by mouth daily Lactobacillus acidophilus capsule Take by mouth lisinopriL (PRINIVIL,ZESTRIL) 10 mg tablet Take 1 tablet (10 mg total) by mouth daily 30 tablet 11 medical cannabis each 1 Dose as needed mesalamine (PENTASA) 250 mg CR capsule Take 400 mg by mouth 4 (four) times a day montelukast (SINGULAIR) 10 mg [...] Past Surgical History: Procedure Laterality Date APPENDECTOMY 2011 CARDIAC CATHETERIZATION 10/18/2019 CARPAL TUNNEL RELEASE 11/13/2005 1. Surgical release of compression of the median nerve, right wrist; surgical release of tenosynovitis of the right ring finger; and surgical release of tenosynovitis of the right middle finger. CATARACT EXTRACTION EXTRACAPSULAR W/ INTRAOCULAR LENS IMPLANTATION Bilateral 2018 Social History Tobacco Use Smoking status: Former Types: Cigarettes Smokeless tobacco: Never Substance and Sexual Activity Drug use: Never Sexual activity: Defer Alcohol Use: Not on file Social History Social History Narrative Occasional alcohol use : (Added by TW Conv) Family History Problem Relation Age of Onset Stroke Father Stroke; Heart disease Father Family history of cardiac disorder - (Added by TW Conv) Heart disease Mother Heart disease; /Family history of cardiac disorder - (Added by TW Conv) ROS: I reviewed the Patient Health History Form, which will be scanned into the EMR. Pertinent positives include: None. Otherwise negative throughout. PHYSICAL EXAM: BP (!) 177/70 Pulse 67 Ht 170.2 cm (5' 7 ) Wt 83.9 kg (185 lb) SpO2 98% BMI 28.98 kg/m?? Alert and oriented x3. Affect is appropriate. Facial musculature is symmetric. Mild right carotid bruit. Her neck extension and rotation are fairly good. The cardiac rhythm is regular. No murmurs. Lungs are clear. Abdomen is benign. No aneurysm appreciated. The radial pulses are palpable. The femoral pulses are palpable. The posterior tibial pulses are palpable. No peripheral aneurysms appreciated. No significant edema. Neurologically she appears grossly intact. Impression and Plan: We talked about continued medical management versus surgical intervention for her progressive asymptomatic right internal carotid artery stenosis. She would like to pursue right carotid endarterectomy. We talked about the risks and benefits the procedure in detail including the risks of , stroke, bleeding, infection, cardiac complications, cranial nerve injury, restenosis, and other potential issues. Due to the calcified nature lesion, I think she is better served by endarterectomy than TCAR. All of her questions were answered and she wishes to proceed. I or my nurse will reach out to her after I review her carotid CT angiogram. Zachary Giron MD, RPVI, FACS, DFSVS contract officer and Radiology Co-Director, [facility] [address] [place] [address], [place] [address] [place] [phone] documented in this encounter Plan of Treatment Not on file documented as of this encounter Visit Diagnoses Diagnosis Carotid artery disease (HCC)- Primary Unspecified disorders of arteries and arterioles Encounter for surgical aftercare following surgery on the circulatory system documented in this encounter Historical Medications * This list may reflect changes made after this encounter. estradioL (ESTRACE) 0.01 % (0.1 mg/gram) vaginal cream Insert 1 g into the vagina 2 (two) times a week Thursday and thursday05/26/2022 nitrofurantoin monohydrate (MACROBID) 100 mg capsule 05/26/2022 07/03/2022 added in this encounter Care Teams Offbearer Sewer Pipe Relationship Specialty Start Date End Date Abbe Nails MD [address] [place] [address] PCP - General 11/03/19 06/30/22 Zachary Giron MD Surgeon Vascular Surgery 10/12/19 Azar Lara MD Surgeon Cardiothoracic Surgery 10/27/19 documented as of this encounter
--- OUTSIDE RECORDS SUMMARY | 2024-09-08 08:22 | XMS_ITS | Encounter Summary ---
Author Organization [facility] [employer] [facility] Address [address] [place] [address] Phone Care Team Providers Care Inner Layer Scrubber Tender Name Role Phone Nanci Trujillo MD Unavailable [phone] Azar Lara MD Unavailable Abbe Nails MD Primary Care Provider [phone] Reason for Referral * Diagnostic Imaging (Routine) - Closed Specialty Diagnoses / Procedures Referred By Contac t Referred To Contact Vascular Surgery Diagnoses Encounter for surgical aftercare following surgery on the circulatory system Procedures US Carotids Duplex Bilateral Nanci Trujillo MD Phone: tel: fax: [facility] Surgery [address] [facility] [address] [place] [address] [place] [address] Phone: tel: fax: Referral ID Status Reason Start Date Expiration Date Visits Re quested Visits Authorized [id number] Closed 04/09/2020 05/09/2021 1 1 Encounter Details Date Type Department Care Team (Late st Contact Info) Description 04/09/2020 Orders Only [facility] Surgery [address] [facility] [address] 8th [place] [address] [place] [address] Nanci Trujillo MD [address] [place] [address] [address] [place] [address] [phone] (work) Encounter for surgical aftercare following surgery on the circulatory system Social History Tobacco Use Types Packs/Day Years Used Date Smoking Tobacco: Former Cigarettes Smokeless Tobacco: Never Alcohol Use Standard Drinks/Week Comments Yes 0 (1 standard drink = 0.6 oz pur e alcohol) Comments Unknown Sex and Gender Information Value Date Recorded Sex Assigned at Not on file 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 Gender Identity Not on file Sexual Orientation Not on file documented as of this encounter Plan of Treatment Not on file documented as of this encounter Results * US Carotids Duplex Bilateral (05/27/2021 11:47 AM CDT) Anatomical Region Laterality Modality Vascular Bilateral Ultrasound 05/27/2021 11:1 1 AM CDT Narrative 05/27/2021 9:05 PM CDT [facility] - Department of Vascular Surgery, Vascular Laboratory [address] [place] [address] Carotid Duplex Ultrasound Report Patient Name: SUMA SAENZ K : 1945 (75y 4m) Study Date: 05/27/2021 11:11:23 AM Gender: F Tech: Location: [facility] Ref.Provider: NANCI TRUJILLO Quality: Adequate Order [...] ?36 ? cm/sec ? - Findings: Performing Pets Salesperson: Ambika Mars RVT, RDMS. Rt Common Carotid [...] performed. Electronically Signed By: Charanjit Cruz MD [facility] [phone] 2021-05-27 21:05:09 CDT CC: CC: Procedure Note Charanjit Cruz MD - 05/27/2021 [facility] - Department of Vascular Surgery,Vascular Laboratory [address] [place] [address] Carotid Duplex Ultrasound Report Patient Name: SUMA SAENZ KPatient ID: [id number] : 1945 (75y 4m)Study Date: 05/27/2021 11:11:23 AM Gender: FAccession #: [id number] Tech: CGLocation: [facility] Ref.Provider: NANCI TRUJILLOQuality: Adequate Order Provider: NANCI TRUJILLOAccount #: [id number] Procedures: Carotid Report: Carotid duplex examination of [...] LT VERT PSV 36cm/sec - Findings: Performing Pets Salesperson: Ambika Mars RVT, CASSANDRAMS. Rt Common Carotid Artery: The plaque [...] Studies: Previous carotid ultrasound on 04-09-2020 revealed VYYG75-66% stenosis and LICA <50% stenosis. Disclaimer: The signing physician has reviewed all images pertaining tothis test. These images and this report will be retained in the patient chart by theVascular Laboratory for the legally required time period. This chart constitutes the legalrecord of any testing performed. Electronically Signed By: Charanjit Cruz MD [facility] [phone] 2021-05-27 21:05:09 CDT CC: CC: Nanci Trujillo MD [facility] PROCEDURES Final R esult documented in this encounter Visit Diagnoses Diagnosis Encounter for surgical aftercare following surgery on the circulatory system Encounter for surgical aftercare following surgery on the circulatory system documented in this encounter Care Teams Inner Layer Scrubber Tender Relationship Specialty Start Date End Date Abbe Nails MD [address] [place] [address] PCP - General 11/03/19 06/30/22 Nanci Trujillo MD Surgeon Vascular Surgery 10/12/19 Azar Lara MD Surgeon Cardiothoracic Surgery 10/27/19 documented as of this encounter
--- OUTSIDE RECORDS SUMMARY | 2024-09-08 08:23 | XMS_ITS | Encounter Summary ---
Author Organization [facility] Address [address] [place] [address] Phone Care Team Providers Care Jumpbasting Facing Baster Name Role Phone Nanci Trujillo MD Unavailable [phone] Abbe Nails MD Primary Care Provider [phone] Azar Lara MD Unavailable Reason for Referral * Diagnostic Imaging (Routine) - Closed Specialty Diagnoses / Procedures Referred By Khadijah ricks Referred To Contact Vascular Surgery Diagnoses Encounter for surgical aftercare following surgery on the circulatory system Procedures US Arterial Doppler Upper Extremity Bilateral Nanci Trujillo MD Phone: tel: fax: Referral ID Status Reason Start Date Expiration Date Visits Re quested Visits Authorized [id number] Closed 10/27/2019 05/07/2021 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 Gender Identity Not on file Sexual Orientation Not on file documented as of this encounter Plan of Treatment Not on file documented as of this encounter Results * US Arterial Doppler Upper Extremity Bilateral (04/09/2020 11:05 AM CDT) Anatomical Region Laterality Modality Vascular Bilateral Ultrasound 04/09/2020 10:4 0 AM CDT Narrative 04/10/2020 11:48 AM CDT [facility] - Department of Vascular Surgery, Vascular Laboratory [address] [place] [address] Upper Extremity Arterial Doppler Ultrasound Report Patient Name: SUMA SAENZ K : 1945 Study Date: 04/09/2020 10:40:00 AM Gender: F [facility] Location: [facility] Ref.Provider: NANCI TRUJILLO Quality: Adequate Order Provider: [...] Index ? 0.95 ? - Findings: Performing Digital Performance Analyst: Angie Crain, RVT. Right Arm All Levels: The right [...] performed. Electronically Signed By: Nanci Trujillo MD [facility] 2020-04-10 11:48:05 CDT CC: CC: Procedure Note Nanci Trujillo MD - 04/10/2020 [facility] - Department of Vascular Surgery,Vascular Laboratory [address] [place] [address] Upper Extremity Arterial Doppler Ultrasound Report Patient Name: SUMA SAENZ KPatient ID: [id number] : [id number] Date: 04/09/2020 10:40:00 AM Gender: FAccession #: [id number] Tech: Paras Angie RVTLocation: [facility] Ref.Provider: NANCI TRUJILLOQuality: Adequate Order Provider: NANCI [...] Digit 2/Arm Index 0.95 - Findings: Performing Digital Performance Analyst: Angie Crain RVT. Right Arm All Levels: [...] performed. Electronically Signed By: Nanci Trujillo MD [facility] 2020-04-10 11:48:05 CDT CC: CC: us Nanci Trujillo MD IMG US PROCEDURES Final R esult * US Carotids Duplex Bilateral (04/09/2020 11:05 AM CDT) Anatomical Region Laterality Modality Vascular Bilateral Ultrasound 04/09/2020 10:0 9 AM CDT Narrative 04/10/2020 11:44 AM CDT [facility] - Department of Vascular Surgery, Vascular Laboratory [address] [place] [address] Carotid Duplex Ultrasound Report Patient Name: SUMA SAENZ K : 1945 (74y 3m) Study Date: 04/09/2020 10:09:54 AM Gender: F Tech: Location: [facility] Ref.Provider: NANCI TRUJILLO Quality: Adequate Order Provider: [...] ?53 ? cm/sec ? - Findings: Performing Digital Performance Analyst: Angie Crain RVT. Rt Common Carotid Artery: [...] performed. Electronically Signed By: Nanci Trujillo MD [facility] 2020-04-10 11:44:11 CDT CC: CC: Procedure Note Nanci Trujillo MD - 04/10/2020 [facility] - Department of Vascular Surgery,Vascular Laboratory [address] [place] [address] Carotid Duplex Ultrasound Report Patient Name: SUMA SAENZ KPatient ID: [id number] : 1945 (74y 3m)Study Date: 04/09/2020 10:09:54 AM Gender: FAccession #: [id number] Tech: MKLocation: [facility] Ref.Provider: NANCI TRUJILLOQuality: Adequate Order Provider: NANCI TRUJILLOAccount #: [id number] Procedures: Carotid Report: Carotid duplex examination of [...] LT VERT PSV 53cm/sec - Findings: Performing Digital Performance Analyst: Angie Crain RVT. Rt Common Carotid Artery: [...] performed. Electronically Signed By: Nanci Trujillo MD [facility] 2020-04-10 11:44:11 CDT CC: CC: Nanci Trujillo MD IM US PROCEDURES Final R esult documented in this encounter Visit Diagnoses Diagnosis Encounter for surgical aftercare following surgery on the circulatory system Encounter for surgical aftercare following surgery on the circulatory system documented in this encounter Care Teams Jumpbasting Facing Baster Relationship Specialty Start Date End Date Abbe Nails MD [address] [place] [address] PCP - General 10/17/19 11/01/19 Nanci Trujillo MD Surgeon Vascular Surgery 10/12/19 Azar Lara MD [address] [place] [address] Surgeon Cardiothoracic Surgery 10/27/19 documented as of this encounter
--- OUTSIDE RECORDS SUMMARY | 2024-09-08 08:23 | XMS_ITS | Encounter Summary ---
Author Organization [facility] Address [address] [place] [address] Phone Care Team Providers Care Department Supervisor Name Role Phone Zachary Giron MD Unavailable Abbe Nails MD Primary Care Provider [phone] Azar Lara MD Unavailable Encounter Details Date Type Department Care Team (Late st Contact Info) Description 11/01/2019 Telephone [facility] Cardiology [address] [facility] [address] 8th [place] [address] [place] [address] Cate Ward MD [address] [place] [address] Social History Tobacco Use Types Packs/Day Years Used Date Smoking Tobacco: Former Cigarettes Smokeless Tobacco: Never Alcohol Use Standard Drinks/Week Comments Yes 0 (1 standard drink = 0.6 oz pur e alcohol) Comments Unknown Sex and Gender Information Value Date Recorded Sex Assigned at Not on file 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 Gender Identity Not on file Sexual Orientation Not on file documented as of this encounter Miscellaneous Notes * Telephone Encounter - Cate Shah - 11/01/2019 8:56 AM CST PAGED TO EMETERIO/EDI CARDIOLOGY CONSULT 11/01/2019 RECEIVED BY: Cate Shah TYPE OF CONSULT: general CALLER'S NAME: DAVON CALLER'S PAGER: [phone] PATIENT'S NAME: Suma Saenz : 1945 CAMPUS: [facility] PATIENT'S LOCATION: [facility] REASON FOR CONSULT: HTN ATTENDING PHYSICIAN: DR SIMPSON IZER documented in this encounter Plan of Treatment Not on file documented as of this encounter Visit Diagnoses Not on filedocumented in this encounter Care Teams Department Supervisor Relationship Specialty Start Date End Date Abbe Nails MD [address] [place] [address] PCP - General 10/17/19 11/01/19 Zachary Giron MD Surgeon Vascular Surgery 10/12/19 Azar Lara MD [address] [place] [address] Surgeon Cardiothoracic Surgery 10/27/19 documented as of this encounter
--- OUTSIDE RECORDS SUMMARY | 2024-09-08 08:23 | XMS_ITS | Encounter Summary ---
Author Organization [facility] Care Team Providers Care Tail Board Worker Name Role Phone Zachary Giron MD Unavailable [phone] Abbe Nails MD Primary Care Provider [phone] Azar Lara MD Unavailable Encounter Details Date Type Department Care Team (Latest Contact Info) Description 10/31/2019 Travel Social History Tobacco Use Types Packs/Day Years Used Date Smoking Tobacco: Former Cigarettes Smokeless Tobacco: Never Alcohol Use Standard Drinks/Week Comments Yes 0 (1 standard drink = 0.6 oz pur e alcohol) Comments Unknown Sex and Gender Information Value Date Recorded Sex Assigned at Not on file 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
--- OUTSIDE RECORDS SUMMARY | 2024-09-08 08:23 | XMS_ITS | Encounter Summary ---
Author Organization [facility] Care Team Providers Care Director Of Operations For Therapy Name Role Phone Zachary Giron MD Unavailable [phone] Abbe Nails MD Primary Care Provider [phone] Encounter Details Date Type Department Care Team (Latest Contact Info) Description 10/21/2019 Travel Social History Tobacco Use Types Packs/Day Years Used Date Smoking Tobacco: Former Cigarettes Smokeless Tobacco: Never Alcohol Use Standard Drinks/Week Comments Yes 0 (1 standard drink = 0.6 oz pur e alcohol) Comments Unknown Sex and Gender Information Value Date Recorded Sex Assigned at Not on file 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
--- OUTSIDE RECORDS SUMMARY | 2024-09-08 08:23 | XMS_ITS | Encounter Summary ---
Author Organization [facility] Healthcare Address [address] [place] [address] Care Team Providers Care Outer Diameter Grinder Name Role Phone Nanci Giron MD Unavailable Abbe Nails MD Primary Care Provider Azar Ramírez MD Unavailable Encounter Details Date Type Department Care Team (Latest Contact Info) Description 10/17/2019 11:40 PM SAP BUSINESS OBJECTS CONSULTANT - 10/27/2019 1:04 PM SAP BUSINESS OBJECTS CONSULTANT Hospital Encounter [facility] [address] [place] [address] Nanci Giron MD [address] [facility] [id number] [place] [address] Vertebral artery compression syndrome (Primary Dx); Stenosis of brachiocephalic artery (CMS/HCC); Pre-operative cardiovascular examination; Vertebrobasilar artery insufficiency; Syncope and collapse; Acute postoperative pain; Vertebrobasilar insufficiency; Acute respiratory failure with hypoxia (CMS/HCC); Orthostatic hypotension; Labile hypertension; Cervicalgia Discharge Disposition: Discharge to home, home health skilled care Social History Tobacco Use Types Packs/Day Years Used Date Smoking Tobacco: Former Cigarettes Smokeless Tobacco: Never Alcohol Use Standard Drinks/Week Comments Yes 0 (1 standard drink = 0.6 oz pur e alcohol) Comments Unknown Sex and Gender Information Value Date Recorded Sex Assigned at Not on file Legal Sex Female 3:40 AM SAP BUSINESS OBJECTS CONSULTANT Gender Identity Not on file Sexual Orientation Not on file documented as of this encounter Last Filed Vital Signs Vital Sign Reading Time Taken Comments Blood Pressure 132/40 10/27/2019 9:00 AM SAP BUSINESS OBJECTS CONSULTANT Pulse 72 10/27/2019 9:00 AM SAP BUSINESS OBJECTS CONSULTANT Temperature 36.8 ??C (98.2 ??F) 10/27/2019 7:35 AM CS T Respiratory Rate 17 10/27/2019 7:35 AM SAP BUSINESS OBJECTS CONSULTANT Oxygen Saturation 98% 10/27/2019 7:35 AM SAP BUSINESS OBJECTS CONSULTANT Inhaled Oxygen Concentration - - Weight 88.6 kg (195 lb 4.8 oz) 10/22/2019 5:00 A M SAP BUSINESS OBJECTS CONSULTANT Height 170.2 cm (5' 7 ) 10/22/2019 5:00 AM SAP BUSINESS OBJECTS CONSULTANT Body Mass Index 30.59 10/22/2019 5:00 AM SAP BUSINESS OBJECTS CONSULTANT documented in this encounter Discharge Diagnoses Diagnosis 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 Acute respiratory failure with hypoxia (CMS/HCC) (HCC) - ACUTE RESPIRATORY FAILURE WITH HYPOXIA Acute posthemorrhagic anemia - ACUTE POSTHEMORRHAGIC ANEMIA Hypo-osmolality and hyponatremia - HYPO-OSMOLALITY AND HYPONATREMIA Vertebral artery compression syndromes, site unspecified - VERTEBRAL ARTERY COMPRESSION SYNDROMES, SITE UNSPECIFIED Atherosclerosis of other arteries - ATHEROSCLEROSIS OF OTHER ARTERIES Atherosclerosis of aorta (HCC) - ATHEROSCLEROSIS OF AORTA Atherosclerosis of aorta Cerebral ischemia - CEREBRAL ISCHEMIA Other generalized ischemic cerebrovascular disease Orthostatic hypotension - ORTHOSTATIC HYPOTENSION Essential (primary) hypertension - ESSENTIAL (PRIMARY) HYPERTENSION Unspecified essential hypertension Hemorrhage, not elsewhere classified - HEMORRHAGE, NOT ELSEWHERE CLASSIFIED Other acute postprocedural pain - OTHER ACUTE POSTPROCEDURAL PAIN Functional dyspepsia - FUNCTIONAL DYSPEPSIA Dyspepsia and other specified disorders of function of stomach Cannabis use, unspecified, uncomplicated - CANNABIS USE, UNSPECIFIED, UNCOMPLICATED Nicotine dependence, cigarettes, uncomplicated - NICOTINE DEPENDENCE, CIGARETTES, UNCOMPLICATED Other chronic pain - OTHER CHRONIC PAIN Cervicalgia - CERVICALGIA Dorsalgia, unspecified - DORSALGIA, UNSPECIFIED Obesity, unspecified - OBESITY, UNSPECIFIED Major depressive disorder, single episode, unspecified - MAJOR DEPRESSIVE DISORDER, SINGLE EPISODE, UNSPECIFIED Anxiety disorder, unspecified - ANXIETY DISORDER, UNSPECIFIED Other intervertebral disc degeneration, lumbosacral region - OTHER INTERVERTEBRAL DISC DEGENERATION, LUMBOSACRAL REGION FDC (current) use of aspirin - SHELTER (CURRENT) USE OF ASPIRIN Other terminal gauger supervisor (current) drug therapy - OTHER CONVALESCENT SITTER (CURRENT) DRUG THERAPY Personal history of transient ischemic attack (TIA), and cerebral infarction without residual deficits - PERSONAL HISTORY OF TRANSIENT ISCHEMIC ATTACK (TIA), AND CEREBRAL INFARCTION WITHOUT RESIDUAL DEFICI Family history of ischemic heart disease and other diseases of the circulatory system - FAMILY HISTORY OF ISCHEMIC HEART DISEASE AND OTHER DISEASES OF THE CIRCULATORY SYSTEM Family history of stroke - FAMILY HISTORY OF STROKE Family history of stroke (cerebrovascular) Body mass index (bmi) 30.0-30.9, adult - BODY MASS INDEX (BMI) 30.0-30.9, ADULT documented in this encounter Discharge Summaries * Annemarie Lynne, NAKIA - 10/18/2019 2:26 PM CST Inpatient Discharge Summary BRIEF OVERVIEW Admitting Provider: Nanci Giron MD Discharge Provider: Nanci Giron MD Primary Care Physician at Discharge: Abbe Nails MD [phone] Admission Date: 10/17/2019 Discharge Date: 10/27/2019 Admission Location: [facility] Primary Discharge Diagnosis: Syncopal Episodes Secondary Discharge Diagnosis: Active Problems: Stenosis of brachiocephalic artery (CMS/HCC) Labile hypertension Chronic back pain complicated by acute surgical pain Acute blood loss anemia Status post carotid surgery Acute hypoxemic respiratory failure (CMS/HCC) Resolved Problems: No resolved hospital problems. DETAILS OF HOSPITAL STAY Presenting Problem/History of Present Illness: Ms. Saenz is a 73 y/o F with history of vertebrobasilar insufficiency, orthostatic hypotension, innominate artery occlusion, and stenosis of the L carotid/vertebral arteries who presents followingrepeat syncopal episode. ?? Patient reports that 10/17/2019 while she was at her primary care office for a routine appointment, she started to become dizzy, lightheaded, and experienced visual changes that she describes as bilateral blotchiness while sitting in the examination chair. She subsequently became globally weak andpassed out. She remembers waking up on the floor, her PCP had helped her to the ground such that there was no headstrike, but definite +LOC. She was thereafter sent to her local emergency department and seen by the ER provider who evaluated her last week when a similar event occurred. He recognizedthat the patient was followed by Dr Giron at [facility] so requested transfer of the patient for further management given her recurrent symptoms and known occlusion. The patient was accepted for transfer and arrived to the [address] [facility] in stable condition. ?? Of note, the patient was just recently admitted to the Vascular Surgery Service from 10/10-10/12 for similar syncopal episodes. During this prior admission, operative intervention for the innominate occlusion carotid/vertebral stenoses as as combined case with Cardiothoracic Surgery was discussed with the patient, but the patient declined to proceed with this given concern for her 's health problems. She was discharged to home with instructions to notify us if she had recurrent or worsening symptoms. Upon readmission she reported that she understands the severity of her symptoms and wishesto proceed with operative intervention at this time. 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 - Home Plavix held for operative procedure and will not be continued at discharge. - MRA obtained to evaluate occlusion and cerebrovascular system+ OR planning. - Dr. Ramírez notified on admission and surgery scheduled with Dr. Giron. - Taken to the OR on 10/21/2019 for Mini-Sternotomy, ascending aorta to right ax artery bypass with graft; ascending aorta to right common carotid artery and left common carotid artery. - Postoperatively taken to ICU for higher level of care. Her ICU course was notable for postoperative anemia, acute respiratory failure, and uncontrolled pain. - Transferred out of ICU in stable condition on 10/25/2019. - Chest tubes removed without issues. Okay to remove chest tube sutures in 2 weeks with home healthper cardiac surgery. - Hospital course further notable for physical and occupational therapy, alva removal, return of bowel function, and diet advancement. ?? # Right groin ecchymosis: - Noted on post cath exam. - 10/19 Right groin ultrasound negative for PSA and hematoma. # Hyponatremia: - Free water fluid restriction to 1L. - Na 131 and improved to 133 after 24 hours of free water restriction. Patient reports her appetitehad been poor and she was drinking a lot of free water prior restriction. ?? # Acute hypoxic respiratory failure: - Required optiflow after extubation from OR. - Weaned from oxygen without difficulty with aggressive pulmonary toilet. ?? # Acute blood loss anemia: - 1U PRBC 10/21. Remained stable after. ?? # Acute postoperative pain on chronic back pain: - APAP scheduled, PO oxy PRN, dronabinol 2.5mg BID AC (Uses THC at home). Will continue acetaminophen and Oxycodone at discharge. - Most pain at this time is chronic pain. ?? Stable for discharge to home on 10/27/2019. Home health set up to follow patient and remove chest tube sutures in 2 weeks. Active Issues Requiring Follow-up: Routine follow up. Test Results Pending at Discharge: None. Operative Procedures Performed: Procedure(s): BYPASS AORTIC INNOMINATE ASCENDING AORTA TO RIGHT SUBCLAVIAN, RIGHT COMMON CAROTID ARTERY AND LEFT COMMON CAROTID ARTERY Other Procedures: Left heart cath. Pertinent Test Results: As above. Discharge Details Physical Exam at Discharge: Discharge Condition: good Pulse: 72 Resp: 17 BP: (!) 132/40 Temp: 36.8 ??C (98.2 ??F) Weight: 88.6 kg (195 lb 4.8 oz) Pertinent Exam Findings at Discharge: GENERAL: Awake, alert, oriented x 4; no acute distress. HEENT: Eyes: Pupils equal, round, reactive to light and accommodation. NECK: Supple and symmetric. RESPIRATORY: Good respiratory effort. Clear to auscultation bilaterally anterior and posterior. Chest: Symmetrical rise and fall. Symmetrical expansion with respirations. CARDIOVASCULAR: Regular rate and rhythm. GASTROINTESTINAL: No tenderness. Bowel sounds equal times four quadrants. Abdomen is nondistended. MUSCULOSKELETAL: Range of motion adequate. Strength and tone equal bilaterally, stable. PULSES: Right - Radial Palpable, Brachial Palpable, ? Dorsalis pedis Palpable, Posterior tibia Palpable Left - Radial palpable, Brachial palpable, Dorsalis pedis Palpable, Posterior tibia:Palpable INCISIONS/WOUNDS:??Right supraclavicular incision along right side of neck and sternotomy incision all intact with derma fernandez Lower mid abdomin and right groin with ecchymotic areas no break in skin. Chest tube sites closed with sutures. NEUROLOGICAL: Cranial nerves II-XII grossly intact. Sensation intact. Discharge Disposition: Code Status at Discharge: Full. Discharge Instructions: Activity Instructions Discharge Activity: Driving restrictions -Do not drive for 4 week(s) or while taking narcotic pain medications. Discharge Activity: Lifting restrictions -Do NOT lift greater than 10 pounds until cleared by your physician. Discharge Activity: Walking -You may walk as tolerated and climb stairs. Diet Instructions Adult Discharge Diet Diet Type: Return to previous diet Other Instructions Ambulatory referral to Home Health Service Line: Home Health Primary disciplines requested: Physical Therapy Home Health Services: Strengthening Exercises Therapy to Eval/ Treat Wound/ Ostomy Care Physician to follow patient's care (the person listed here will be responsible for signing ongoing orders): PCP Requested Start of Care Date: Within 2 - 3 Days Special instructions (labs, wound care, etc.): Remove CT sutures in 2 weeks. PT eval and treat. Wound check. Medication compliance. I attest that I or another qualified licensed provider saw the patient 90 days prior to or 30 days post admission and this face to face encounter meets the necessary Home Health requirements. The face to face encounter occurred on (date): 10/27/2019 The encounter with the patient was in whole, or in part, for the following medical condition, whichis the primary reason for home health care. (List medical condition): PVD I certify that, based on my findings, the following services are medically necessary skilled home health services: Wound/ Ostomy Care Strengthening Exercises Therapy to Eval/ Treat Strengenthing/ Balance Evaluate Clinical findings that support the need for home care: Medical condition requiring skilled assessment/education Wound requiring care, assessment, and instruction Frequent falls requiring safety eval/therapy I certify that my clinical findings support patient's homebound status. Homebound criteria met because: Requires assistance of another to leave home safely Pain with minimal activity or rest Abnormal gait/unsteady balance resulting in fall risk Pain and impaired mobility post-op Call provider for: Open Aortic Repair -You have redness or drainage from the incision -You have a temperature greater than 101 degrees F -You have increased abdominal or back pain, bloating, nausea, vomiting or persistent diarrhea -You are not able to drink liquids -You have decreases amounts of urine or urine that is darker in color -You have leg pain with coolness -You have swelling in one leg with redness or warmth -You have shortness of breath Call provider for: Signs of Stroke -Your arm, leg or face suddenly become numb; especially on one side of your body -You suddenly become confused or have a hard time talking -You begin having double vision or are not able to see in one or both eyes -You have a hard time walking, become dizzy or feel like you may fall -Your head begins to hurt very badly -You are having difficulty talking and/or swallowing Care Instructions: Incentive Spirometer - Continue to use your incentive spirometer Care Instructions: No tub baths -No tub baths, whirlpools or swimming until your doctor says it's ok. Care Instructions: Shower -You may shower. Skin Glue Special glue has been placed on your incision. It will flake off over 1 week. Do not pick, scratch or rub. This may cause it to come off before your incision has healed. Special Instructions: Continue following PT/OT instructions Stitches/Allie -Stitches to your old chest tube site will be removed by home health in 2 weeks. [facility] [phone] Please call for date and time of visit if you do not hear from them within 48 hours of d/c. Discharge Medications: Current Medications TAKE these medications aspirin 325 mg tablet take 1 tablet by oral route every day atorvastatin 80 mg tablet take 1 tablet by oral route every day Commonly known as: LIPITOR buPROPion XL 150 mg 24 hr tablet take 1 tablet by oral route 2 times every day Commonly known as: WELLBUTRIN XL camphor-menthol lotion Apply topically every 6 (six) hours as needed for irritation, itching or dry skin Avoid incision sites Commonly known as: SARNA carvediloL 12.5 mg tablet Take 1 tablet (12.5 mg total) by mouth 2 (two) times a day Commonly known as: COREG doxycycline monohydrate 50 mg tablet Take 50 mg by mouth 2 (two) times a day. Commonly known as: ADOXA hydroCHLOROthiazide 25 mg tablet Take 25 mg by mouth daily Commonly known as: HYDRODIURIL lidocaine 5 % Place 1 patch on the skin daily Remove & discard patch within 12 hours or as directed by MD. Commonly known as: LIDODERM montelukast 10 mg tablet take 1 tablet by oral route every day in the evening Commonly known as: SINGULAIR ondansetron ODT 4 mg disintegrating tablet Take 1 tablet (4 mg total) by mouth every 8 (eight) hours as needed for nausea or vomiting Commonly known as: ZOFRAN-ODT oxyCODONE 5 mg immediate release tablet Take 1 tablet (5 mg total) by mouth every 3 (three) hours as needed for pain For: pain Commonly known as: ROXICODONE senna-docusate 8.6-50 mg Take 1-2 tablets by mouth 2 (two) times a day as needed for constipation Commonly known as: Senna Plus ZyrTEC 10 mg tablet take 1 tablet by oral route every day Generic drug: cetirizine Outpatient Follow-Up: Future Appointments Date Time Provider Department Center 11/11/2019 1:30 PM Mati Anders MD [facility] 8A Cardiology 04/13/2020 11:30 AM Rianna Arredondo MD [facility] 6C Contact Information for Follow-ups Abbe Nails MD Specialty: Family Medicine Relationship: PCP - General [address] [facility] [address] Next Steps: Follow up [facility] Home Care Services Specialty: Home Health and Hospice [address] [facility] [address] Next Steps: Follow up Questions: Service Line: Home Health Primary disciplines requested: Physical Therapy Home Health Services: Strengthening Exercises Therapy to Eval/ Treat Wound/ Ostomy Care Physician to follow patient's care (the person listed here will be responsible for signing ongoing orders): PCP Requested Start of Care Date: Within 2 - 3 Days Special instructions (labs, wound care, etc.): Remove CT sutures in 2 weeks. PT eval and treat. Wound check. Medication compliance. I attest that I or another qualified licensed provider saw the patient 90 days prior to or 30 days post admission and this face to face encounter meets the necessary Home Health requirements. The face to face encounter occurred on (date): 10/27/2019 The encounter with the patient was in whole, or in part, for the following medical condition, whichis the primary reason for home health care. (List medical condition): PVD I certify that, based on my findings, the following services are medically necessary skilled home health services: Wound/ Ostomy Care Strengthening Exercises Therapy to Eval/ Treat Strengenthing/ Balance Evaluate Clinical findings that support the need for home care: Medical condition requiring skilled assessment/education Wound requiring care, assessment, and instruction Frequent falls requiring safety eval/therapy I certify that my clinical findings support patient's homebound status. Homebound criteria met because: Requires assistance of another to leave home safely Pain with minimal activity or rest Abnormal gait/unsteady balance resulting in fall risk Pain and impaired mobility post-op Referral Status: Pending Authorization Nanci Giron MD Specialty: Vascular Surgery, General Surgery Relationship: Surgeon [address] [place] [address] Next Steps: Follow up Instructions: You will need a 4 week follow up. If you have questions or concerns or haven't received your appointment in 1 week, please call [phone]. Questions: Instructions for follow-up (appointment date and time): You will need a 4 week follow up. If you have questions or concerns or haven't received your appointment in 1 week, please call [phone]. To provider: NANCI GIRON Process Instructions: The follow up with provider order should be used to give patients instructions to follow up with an established provider. A referral order should be placed to instruct patients to follow up with a new, non- established provider. If you can???t find the provider, please use: MAU VERMA and put the name in the comments. Azar Ramírez MD Specialty: Cardiothoracic Surgery, General Surgery, Thoracic Surgery Relationship: Surgeon [address] [place] [address] Next Steps: Follow up Instructions: Dr. Ramírez's office will schedule you a follow up. IF you have not heard from them, their number is [phone]. Questions: To provider: AZAR RAMÍREZ Instructions for follow-up (appointment date and time): Dr. Ramírez's office will schedule you a follow up. IF you have not heard from them, their number is [phone]. Process Instructions: The follow up with provider order should be used to give patients instructions to follow up with an established provider. A referral order should be placed to instruct patients to follow up with a new, non- established provider. If you can???t find the provider, please use: MISVISHAL DIALLOILE and put the name in the comments. Cosigned by Nanci Giron MD at 10/27/2019 11:10 AM SAP BUSINESS OBJECTS CONSULTANT BUSINESS OBJECTS CONSULTANT BUSINESS OBJECTS CONSULTANT Associated attestation - Nanci Giron MD - 10/27/2019 11:10 AM SAP BUSINESS OBJECTS CONSULTANT I have seen and examined the patient on 10/27/19. I agree with the findings and plan of care with the following modifications:I saw the patient on [id number]. She has recovered nicely from her surgery. Palpable radial pulses bilaterally. No neurologic symptoms, no headaches. Her incisions are clean and intact. She will be discharged home today on daily aspirin 325 mg. We will plan to have her follow upin 1 month with noninvasive studies. .. documented in this encounter Discharge Instructions * Appointments* Nilda Sanchez RN - 10/26/2019 2:30 PM SAP BUSINESS OBJECTS CONSULTANT This is the earliest appointment with your PCP, Please bring discharge paperwork with list of medicines, insurance card and photo ID to appointment. Please arrive at least 15 minutes early prior to appointment. If you are unable to keep this appointment, it is very important you call to reschedule. BUSINESS OBJECTS CONSULTANT * Discharge Instr - Other Orders* Nilda Sanchez RN - 10/26/2019 3:57 PM SAP BUSINESS OBJECTS CONSULTANT [facility] [phone] Please call for date and time of visit if you do not hear from them within 48 hours of d/c. BUSINESS OBJECTS CONSULTANT BUSINESS OBJECTS CONSULTANT documented in this encounter Medications at Time of Discharge aspirin 325 mg tablet take 1 tablet by oral route every day 0 0 6 atorvastatin (LIPITOR) 80 mg tablet take 1 tablet by oral route every day 0 0 6 buPROPion XL (WELLBUTRIN XL) 150 mg 24 hr tablet take 1 tablet by oral route 2 times every day 0 0 5 cetirizine (ZyrTEC) 10 mg tablet take 1 tablet by oral route every day 0 0 5 hydroCHLOROthiazide (HYDRODIURIL) 25 mg tabletIndications:h ypertension Take 1 tablet (25 mg total) by mouth every morning montelukast (SINGULAIR) 10 mg tablet take 1 tablet by oral route every day in the evening 0 0 7 lidocaine (LIDODERM) 5 % Place 1 patch on the skin daily Remove & discard patch within 12 hours or as directed by MD. 30 patch 0 11/26/19 20 camphor-menthol (SARNA) lotion Apply topically every 6 (six) hours as needed for irritation, itching or dry skin Avoid incision sites 222 mL 0 08/14/20 21 carvediloL (COREG) 12.5 mg tablet Take 1 tablet (12.5 mg total) by mouth 2 (two) times a day 60 tablet 11 0 11/04/19 20 doxycycline (ADOXA) 50 mg tablet Take 50 mg by mouth 2 (two) times a day. 08/14/20 21 ondansetron ODT (ZOFRAN-ODT) 4 mg disintegrating tablet Take 1 tablet (4 mg total) by mouth every 8 (eight) hours as needed for nausea or vomiting 20 tablet 0 08/14/20 21 oxyCODONE (ROXICODONE) 5 mg immediate release tabletIndications:P ain Take 1 tablet (5 mg total) by mouth every 3 (three) hours as needed for pain 30 tablet 0 11/04/19 20 senna-docusate (Senna Plus) 8.6-50 mg Take 1-2 tablets by mouth 2 (two) times a day as needed for constipation 20 tablet 0 11/04/19 20 documented as of this encounter Ordered Prescriptions Prescription Sig Dispense Quantity Refills Last Filled Start Date End Date oxyCODONE (ROXICODONE) 5 mg immediate release tabletIndications:P ain Take 1 tablet (5 mg total) by mouth every 3 (three) hours as needed for pain 30 tablet 0 11/04/19 20 ondansetron ODT (ZOFRAN-ODT) 4 mg disintegrating tablet Take 1 tablet (4 mg total) by mouth every 8 (eight) hours as needed for nausea or vomiting 20 tablet 0 08/14/20 21 lidocaine (LIDODERM) 5 % Place 1 patch on the skin daily Remove & discard patch within 12 hours or as directed by MD. 30 patch 0 11/26/19 20 carvediloL (COREG) 12.5 mg tablet Take 1 tablet (12.5 mg total) by mouth 2 (two) times a day 60 tablet 11 0 11/04/19 20 camphor-menthol (SARNA) lotion Apply topically every 6 (six) hours as needed for irritation, itching or dry skin Avoid incision sites 222 mL 0 08/14/20 21 senna-docusate (Senna Plus) 8.6-50 mg Take 1-2 tablets by mouth 2 (two) times a day as needed for constipation 20 tablet 0 11/04/19 20 documented in this encounter Discharge Disposition Disposition Code Departure Means Destination Discharge to home, home health skilled care documented in this encounter Progress Notes * Nilda Sanchez RN - 10/27/2019 10:23 AM CST 10/27/19 1023 Discharge Summary Chart reviewed For Medical Necessity Does patient have a planned readmission to hospital planned? No Discharge Disposition Home with Home Health (PT/OT/RN) Equipment/Provider Needs Home Provider Services Needs Identified Home Care Agency Information Home Care Agency Type #1: [facility] Care [facility] Name [facility] Home Care Agency Contact Spoken to [facility] Care [facility] Order Faxed to [phone] Discharge Additional Assistance Does the patient need discharge transport arranged? No Post Discharge Care Provider Post Discharge Care Plan DC Summary has been faxed to next level of care provider (see Follow Up Providers) Patient to d/c to home today. Home needs identified. Patient has family for home support and transportation. Patient to have meds filled by mobile pharmacy. PCP appointment made. Nurse to instruct ond/c orders. BUSINESS OBJECTS CONSULTANT * Jody Dow, CASSANDRA - 10/26/2019 10:48 AM CST Nutrition Assessment Reason for Assessment: Follow Up Encounter Date: 10/26/19 10:48 AM Patient is a 73 y.o. female with chief complaint of Syncopal episode. LOS is 9 days. HPI: vertebrobasilar insufficiency, orthostatic hypotension, innominate artery occlusion, and stenosis of the L carotid/vertebral arteries Objective Past Medical History: Diagnosis Date ??? Anxiety [...] Substance Use Topics ??? Alcohol use: Yes Family History Problem Relation Age of Onset ??? Stroke Father Stroke; ??? Heart disease Father Family history of cardiac disorder - (Added by TW Conv) ??? Heart disease Mother Heart disease; /Family history of cardiac disorder - (Added by TW Conv) Anthropometrics: Wt Readings from Last 3 Encounters: 10/22/19 88.6 kg (195 lb 4.8 oz) 10/18/19 88.5 kg (195 lb) 10/14/19 85.5 kg (188 lb 9.6 oz) Anthropometrics Weight: 88.6 kg (195 lb 4.8 oz) Admission Weight : 88.5 kg Weight Change: 0.13 kg (0.30 lbs) IBW/kg (Calculated) : 61.2 kg Height: 170.2 cm (5' 7 ) Weight in (lb) to have BMI = 25: 159.3 BMI (Calculated): 30.6 Nutrition Needs Calculations: Calculated Energy Needs Using Equations Weight: 88.6 kg (195 lb 4.8 oz) Height: 170.2 cm (5' 7 ) Minute Ventilation (L/min): 5.7 L/min Temp: 36.7 ??C (98.1 ??F) Estimated Protein Needs Type of Weight Used for Estimated Protein : [place] Protein Needs Based on g/k.1 Total Protein Estimated Needs (gm): 67.32 Kcal/kg Type of Weight Used for Estimated Kcals: Current Kcal/k Total Kcal/kg Estimated Needs : 1769.02 Vital Signs: BP: (!) 134/44 Temp: 36.7 ??C (98.1 ??F) Pulse: 82 Resp: 20 SpO2: 95 % Medications: Scheduled Meds: acetaminophen, 1,000 mg, oral, Q6H REID aspirin, 325 mg, oral, Daily atorvastatin, 80 mg, oral, Nightly buPROPion XL, 150 mg, oral, Daily carvediloL, 12.5 mg, oral, BID dronabinol, 2.5 mg, oral, BID AC (lunch, dinner) heparin, 5,000 Units, subcutaneous, Q8H REID hydroCHLOROthiazide, 12.5 mg, oral, Daily lidocaine, 1 patch, transdermal, Daily montelukast, 10 mg, oral, Nightly sodium chloride 0.9%, 0.5-20 mL, intra-catheter, Q8H REID Continuous Infusions: PRN Meds: calcium carbonate ??? camphor-menthol ??? ondansetron ??? oxyCODONE ??? senna ??? sodium chloride 0.9% Lab Review: Sodium Date Value Ref Range Status 10/25/2019 131 (L) 135 - 145 mmol/L Final Potassium, pl Date Value Ref Range Status 10/25/2019 4.0 3.3 - 4.9 mmol/L Final BUN Date Value Ref Range Status 10/25/2019 21 8 - 25 mg/dL Final Creatinine Date Value Ref Range Status 10/25/2019 0.79 0.60 - 1.10 mg/dL Final Phosphorus, pl Date Value Ref Range Status 10/25/2019 2.6 2.3 - 4.5 mg/dL Final Magnesium Date Value Ref Range Status 10/25/2019 2.3 1.4 - 2.5 mg/dL Final Calcium Date Value Ref Range Status 10/25/2019 9.2 8.5 - 10.3 mg/dL Final Lab Results Component Value Date HGBA1C 5.9 04/02/2016 HDL 57 04/02/2016 CHOL 130 04/02/2016 TRIG 116 04/02/2016 Nursing Assessment: Intake/Output Summary (Last 24 hours) at 10/26/2019 1048 Last data filed at 10/26/2019 0752 Gross per 24 hour Intake 390 ml Output 1050 ml Net -660 ml Gastrointestinal Gastrointestinal (WDL): Exceptions to WDL Abdomen Inspection: Soft, Rounded Bowel Sounds (All Quadrants): Active Palpation: Soft, No guarding, Nontender Last BM Date: 10/25/19 Passing Flatus: Yes GI Symptoms: Diarrhea, Heartburn, Nausea Relieved by: Stool softener, Laxative Gastrointestinal Additional Assessments: No Last BM Date: 10/25/19 Emesis: 50 mL Christiano Scale Score: 20 Skin Integrity: Surgical incision Edema: Mild pitting, silght indention Dietary Orders (From admission, onward) Start Ordered 10/22/19 0726 Adult Diet Restricted; 2 GM Sodium, Low Fat, Low Chol Diet effective now Question Answer Comment ([facility]) Diet type Restricted Fat / Sodium Restriction: 2 GM Sodium Fat / Sodium Restriction: Low Fat, Low Chol 10/22/19 0725 Impression: Pt states her appetite remains poor. Pt came out of [facility]ICU. Pt just wants clear liquids. Pt Na low (131), will send gatorade with tray although pt unsure if she likes it. INTERVENTION Continue low fat/low chol . Add Gatorade to diet order Provide pt food preferences (pt wants just clear liquids - broth, jello etc) GOALS / MONITORING: Goals: Oral intake to meet 75% estimated nutritional needs by next assessment, Adequate nutrition to meet estimated needs by next assessment Monitoring and Evaluation: Labs, Weight changes, PO intake Jody Dow MS RDN, LD - [phone] BUSINESS OBJECTS CONSULTANT * Annemarie Lynne NP - 10/26/2019 8:41 AM CST Vascular Surgery Daily Progress Patient Name/MRN: Suma Saenz [id number] Treatment Team: Vascular Surgery- Pager: [phone] Attending: Nanci Giron MD Today's Date: 10/26/2019 Room/Bed: [id number] Admit Date: 10/17/2019 Code Status: Full Code Subjective Chief complaint: Syncopal episodes Events During This Hospitalization: 10/17 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 10/18: C with clean coronaries. 10/19: Rt groin PSA duplex negative for PSA, negative for hematoma. 10/21: Mini-Sternotomy, ascending aorta to right ax artery bypass with graft; ascending aorta to right common carotid artery and left common carotid artery. 10/25: Transfer to floor. Events Over Last 24 Hours: Na 131. Pain control is moderate. Multiple BMs overnight. Allergies Allergen Reactions ??? Naproxen Rash ??? Nsaids (Non-Steroidal Anti-Inflammatory Drug) Hives ??? Penicillins Rash ??? Sulfa (Sulfonamide Antibiotics) Rash Current Facility-Administered Medications Medication Dose Route Frequency Provider Last Rate Last Dose ??? acetaminophen (TYLENOL) tablet 1,000 mg 1,000 mg oral Q6H REID Jayce Alvarez MD 1,000 mg at 10/26/19 0509 ??? aspirin tablet 325 mg 325 mg oral Daily Jayce Alvarez MD 325 mg at 10/25/19 0801 ??? atorvastatin (LIPITOR) tablet 80 mg 80 mg oral Nightly Jayce Alvarez MD 80 mg at 10/25/192046 ??? buPROPion XL (WELLBUTRIN XL) 24 hour tablet 150 mg 150 mg oral Daily Jayce Alvarez MD 150 mg at 10/25/19 0801 ??? calcium carbonate (TUMS) chewable tablet 1,000 mg 400 mg of elemental calcium oral Q6H PRN Jayce Alvarez MD 1,000 mg at 10/25/19 2337 ??? camphor-menthol (SARNA) 0.5-0.5 % lotion topical Q6H PRN Jayce Alvarez MD ??? carvediloL (COREG) tablet 12.5 mg 12.5 mg oral BID Jayce Alvarez MD 12.5 mg at 10/25/192046 ??? docusate sodium (COLACE) capsule 100 mg 100 mg oral BID Jayce Alvarez MD 100 mg at 10/24/192051 ??? dronabinol (MARINOL) capsule 2.5 mg 2.5 mg oral BID AC (lunch, dinner) Jayce Alvarez MD 2.5 mg at 10/25/19 1717 ??? heparin 5,000 unit/mL injection 5,000 Units 5,000 Units subcutaneous Q8H [facility] Jayce Alvarez MD 5,000 Units at 10/26/19 0509 ??? lidocaine (LIDODERM) 5 % patch 1 patch 1 patch transdermal Daily Jayce Alvarez MD Stopped at 10/25/19 2100 ??? montelukast (SINGULAIR) tablet 10 mg 10 mg oral Nightly Jayce Alvarez MD 10 mg at 10/25/192046 ??? ondansetron (ZOFRAN) injection 4 mg 4 mg intravenous Q4H PRN Jayce Alvarez MD 4 mg at 10/25/19 2337 ??? oxyCODONE (ROXICODONE) tablet 5 mg 5 mg oral Q3H PRN Jayce Alvarez MD 5 mg at 10/26/19 0509 ??? polyethylene glycol (MIRALAX) packet 17 g 17 g oral BID Jayce Alvarez MD 17 g at 10/24/192052 ??? senna (SENOKOT) tablet 1 tablet 1 tablet oral Daily PRN Annemarie Lynne, NAKIA ??? sodium chloride 0.9% flush 0.5-20 mL 0.5-20 mL intra-catheter Q8H [facility] Jayce Alvarez MD 10 mL at 10/25/19 0422 ??? sodium chloride 0.9% flush 0.5-20 mL 0.5-20 mL intra-catheter PRN Jayce Alvarez MD 10 mL at Objective Vitals: 24hr Min/Max: Temp Min: 36.5 ??C (97.7 ??F) Max: 37.2 ??C (99 ??F) Pulse Min: 68 Max: 82 BP Min: 114/46 Max: 155/49 Resp Min: 15 Max: 22 SpO2 Min: 89 % Max: 99 % Most Recent : Vitals: 02/19/20 0752 BP: (!) 134/44 Pulse: 82 Resp: 20 Temp: 36.7 ??C (98.1 ??F) SpO2: 95% I/O last 2 completed shifts: In: 690 [P.O.:690] Out: 1220 [Urine:1220] No intake/output data recorded. Physical Exam: GENERAL: Awake, alert, oriented x 4; no acute distress. HEENT: Eyes: Pupils equal, round, reactive to light and accommodation. NECK: Supple and symmetric. RESPIRATORY: Good respiratory effort. Clear to auscultation bilaterally anterior and posterior. Chest: Symmetrical rise and fall. Symmetrical expansion with respirations. CARDIOVASCULAR: Regular rate and rhythm. GASTROINTESTINAL: No tenderness. Bowel sounds equal times four quadrants. Abdomen is nondistended. MUSCULOSKELETAL: Range of motion adequate. Strength and tone equal bilaterally, stable. PULSES: Right - Radial Palpable, Brachial Palpable, Dorsalis pedis Palpable, Posterior tibia Palpable Left - Radial palpable, Brachial palpable, Dorsalis pedis Palpable, Posterior tibia:Palpable INCISIONS/WOUNDS: Right supraclavicular incision along right side of neck and sternotomy incision all intact with derma fernandez Lower mid abdomin and right groin with ecchymotic areas no break in skin NEUROLOGICAL: Cranial nerves II-XII grossly intact. Sensation intact. Lab/Radiology/Diagnostic Review: Laboratory review: Lab results in the last 24 hours: Recent Results (from the past 24 hour(s)) POCT glucose Collection Time: 10/25/19 11:34 AM Result Value Ref Range Glucose, POC 155 70 - 199 mg/dL Lidocaine level Collection Time: 10/25/19 11:19 PM Result Value Ref Range Lidocaine (Xylocaine) <1.0 (L) 1.5 - 5.0 mcg/mL Type and screen Collection Time: 10/25/19 11:19 PM Result Value Ref Range Mara, indirect Negative ABO Rh O Positive CBC with auto differential Collection Time: 10/25/19 11:19 PM Result Value Ref Range WBC 5.9 3.8 - 9.9 K/cumm Hgb 8.3 (L) 11.9 - 15.5 g/dL Hct 24.3 (L) 35.6 - 45.5 % Plt 240 150 - 400 K/cumm MPV 9.5 9.1 - 12.3 fL RBC 2.66 (L) 3.90 - 5.20 M/cumm MCV 91.4 81.3 - 96.4 fL MCH 31.2 27.1 - 33.3 pg MCHC 34.2 32.3 - 35.7 g/dL RDW CV 14.1 11.1 - 14.9 % RDW SD 46.6 35.7 - 48.1 fL NRBC abs 0.00 0.00 - 0.01 K/cumm Basic metabolic panel Collection Time: 10/25/19 11:19 PM Result Value Ref Range Sodium 131 (L) 135 - 145 mmol/L Potassium, pl 4.0 3.3 - 4.9 mmol/L Chloride 96 (L) 97 - 110 mmol/L CO2 26 22 - 32 mmol/L Anion gap 9 2 - 15 mmol/L BUN 21 8 - 25 mg/dL Creatinine 0.79 0.60 - 1.10 mg/dL Glucose 115 70 - 199 mg/dL Calcium 9.2 8.5 - 10.3 mg/dL Magnesium Collection Time: 10/25/19 11:19 PM Result Value Ref Range Magnesium 2.3 1.4 - 2.5 mg/dL Phosphorus Collection Time: 10/25/19 11:19 PM Result Value Ref Range Phosphorus, pl 2.6 2.3 - 4.5 mg/dL Differential, auto Collection Time: 10/25/19 11:19 PM Result Value Ref Range Neutrophil abs 3.7 1.7 - 6.5 K/cumm Imm gran abs 0.1 0.0 - 0.1 K/cumm Lymphocyte abs 1.1 0.8 - 3.3 K/cumm Monocyte abs 0.8 0.2 - 0.8 K/cumm Eosinophil abs 0.1 0.0 - 0.5 K/cumm Basophil abs 0.0 0.0 - 0.1 K/cumm Neutrophil pct 63.2 % Imm gran pct 1.4 % Lymphocyte pct 19.2 % Monocyte pct 14.3 % Eosinophil pct 1.4 % Basophil pct 0.5 % Assessment/Plan Active Problems: Stenosis of brachiocephalic artery (CMS/HCC) Labile hypertension Chronic back pain complicated by acute surgical pain Acute blood loss anemia Status post carotid surgery Acute hypoxemic respiratory failure (CMS/HCC) # Severe innominate artery stenosis: - s/p OR 10/21 aorta -> R axillary bypass and asc aorta + R + L common carotid bypass. - High risk for reperfusion syndrome, monitor BP closely, eval for headache. - PT/OT. Sternal precautions. - Diet as tolerated, offer supplements. - Pain control. # Hyponatremia: - Free water fluid restriction to 1L. - Daily BMP. # Acute hypoxic respiratory failure: - Required optiflow after OR. - Weaned of O2 last night, monitor on pulse ox. - Continue aggressive pulmonary toilet. # Acute blood loss anemia: - 1U PRBC 10/21. - CBC daily. # Acute postoperative pain on chronic back pain: - APAP scheduled, PO oxy PRN, dronabinol 2.5mg BID AC (Uses THC at home). - Most pain at this time is chronic pain. # Labile BP: - Continue Coreg 12.5mg BID. - Restart home HCTZ at half dose and monitor. Cosigned by Nanci Giron MD at 10/26/2019 9:44 AM SAP BUSINESS OBJECTS CONSULTANT BUSINESS OBJECTS CONSULTANT BUSINESS OBJECTS CONSULTANT Associated attestation - Nanci Giron MD - 10/26/2019 9:44 AM SAP BUSINESS OBJECTS CONSULTANT I have seen and examined the patient on 10/26/19. I agree with the findings and plan of care with the following modifications:she looks great. She will continue daily aspirin work with physical therapy. This will give us a sense of what assistance she will require at discharge, and whether she can be discharged home or to a bridge facility with nursing home care... * Milly Sykes NP - 10/25/2019 2:19 PM CST Vascular Surgery Accept note Patient Name/MRN: Suma Saenz [id number] Treatment Team: Vascular Surgery- Pager: [phone] Attending: Nanci Giron MD Today's Date: 10/25/2019 Room/Bed: [id number] Admit Date: 10/17/2019 Code Status: Full Code Subjective This 73 year old female with history of vertebrobasilar insufficiency, orthostatic hypotension, innominate artery occlusion,??and??stenosis of the L carotid/vertebral arteries??who presents??following repeat syncopal episode. She is s/p 1. Exposure of right infraclavicular axillary artery 2. Partial sternotomy 3. Bypass from ascending aorta to right axillary artery with 6 mm PTFE 4. Bypass from ascending aorta to right common carotid artery and left common carotid artery with 8 mm and 7 mm Dacron grafts 5. Ultrasound-guided left common femoral catheter placement by Dr Giron on 10/21. She is now presenting from [facility]ICU following immediate postoperative care. Allergies Allergen Reactions ??? Naproxen Rash ??? Nsaids (Non-Steroidal Anti-Inflammatory Drug) Hives ??? Penicillins Rash ??? Sulfa (Sulfonamide Antibiotics) Rash Current Facility-Administered Medications Medication Dose Route Frequency Provider Last Rate Last Dose ??? acetaminophen (TYLENOL) tablet 1,000 mg 1,000 mg oral Q6H [facility] Montserrat Quinteros NP 1,000 mg at 10/25/19 1136 ??? aspirin tablet 325 mg 325 mg oral Daily Mario House MD 325 mg at 10/25/19 0801 ??? atorvastatin (LIPITOR) tablet 80 mg 80 mg oral Nightly Mario House MD 80 mg at 10/24/192051 ??? buPROPion XL (WELLBUTRIN XL) 24 hour tablet 150 mg 150 mg oral Daily Mario House MD150 mg at 10/25/19 0801 ??? calcium carbonate (TUMS) chewable tablet 1,000 mg 400 mg of elemental calcium oral Q6H PRN Mario House MD 1,000 mg at 10/25/19 0550 ??? camphor-menthol (SARNA) 0.5-0.5 % lotion topical Q6H PRN Hudson Kern MD ??? carvediloL (COREG) tablet 12.5 mg 12.5 mg oral BID Rashmi Moura NP 12.5 mg at 10/25/19 0801 ??? docusate sodium (COLACE) capsule 100 mg 100 mg oral BID Mario House MD 100 mg at 10/24/192051 ??? dronabinol (MARINOL) capsule 2.5 mg 2.5 mg oral BID AC (lunch, dinner) Jayce Alvarez MD 2.5 mg at 10/25/19 1136 ??? heparin 5,000 unit/mL injection 5,000 Units 5,000 Units subcutaneous Q8H [facility] Mario House MD 5,000 Units at 10/25/19 0528 ??? lidocaine (LIDODERM) 5 % patch 1 patch 1 patch transdermal Daily Jayce Alvarez MD 1 patch at 10/25/19 1017 ??? montelukast (SINGULAIR) tablet 10 mg 10 mg oral Nightly Mario House MD 10 mg at 10/24/192052 ??? ondansetron (ZOFRAN) injection 4 mg 4 mg intravenous Q4H PRN Gasper Salgado MD ??? oxyCODONE (ROXICODONE) tablet 5 mg 5 mg oral Q3H PRN Jayce Alvarez MD ??? polyethylene glycol (MIRALAX) packet 17 g 17 g oral BID Gasper Salgado MD 17 g at 10/24/192052 ??? senna (SENOKOT) tablet 2 tablet 2 tablet oral BID Gasper Salgado MD 2 tablet at 10/24/192051 ??? sodium chloride 0.9% flush 0.5-20 mL 0.5-20 mL intra-catheter Q8H [facility] Mario House MD 10 mL at 10/25/19421 ??? sodium chloride 0.9% flush 0.5-20 mL 0.5-20 mL intra-catheter PRN Mario House MD 10mL at 10/21/192125 Objective Vitals: 24hr Min/Max: Temp Min: 36.7 ??C (98.1 ??F) Max: 37.5 ??C (99.5 ??F) Pulse Min: 72 Max: 90 BP Min: 114/46 Max: 160/59 Resp Min: 15 Max: 25 SpO2 Min: 92 % Max: 97 % Most Recent : Vitals: 10/25/19 114 BP: Pulse: 74 Resp: 22 Temp: SpO2: 94% I/O last 2 completed shifts: In: 1096 [P.O.:1020; I.V.:76] Out: 1740 [Urine:1700; Chest Tube:40] I/O this shift: In: 540 [P.O.:540] Out: 170 [Urine:170] Physical Exam: GENERAL: Awake, alert, oriented x 4; no acute distress. NECK: Supple and symmetric. RESPIRATORY: Good respiratory effort. Clear to auscultation bilaterally anterior and posterior. Chest: Symmetrical rise and fall. Symmetrical expansion with respirations. CARDIOVASCULAR: Regular rateand rhythm. No murmur, gallops, clicks, heaves or rub. GASTROINTESTINAL: No tenderness or mass. Bowel sounds equal times four quadrants. Abdomen is nondistended. MUSCULOSKELETAL: Normal gait and station.No tenderness or effusion. Range of motion adequate. Strength and tone equal bilaterally, stable. PULSES: Right - Radial Palpable, Brachial Palpable, Dorsalis pedis Palpable, Posterior tibia Palpable Left - Radial palpable, Brachial palpable, Dorsalis pedis Palpable, Posterior tibia:Palpable INCISIONS/WOUNDS: Right supraclavicular incision along right side of neck and sternotomy incision all intact with derma fernandez Lower mid abdomin and right groin with ecchymotic areas no break in skin tissue NEUROLOGICAL: Cranial nerves II-XII grossly intact. Sensation intact. Lab/Radiology/Diagnostic Review: Laboratory review: Lab results in the last 12 hours: Recent Results (from the past 12 hour(s)) CBC with auto differential Collection Time: 10/25/19 4:19 AM Result Value Ref Range WBC 6.9 3.8 - 9.9 K/cumm Hgb 8.2 (L) 11.9 - 15.5 g/dL Hct 24.3 (L) 35.6 - 45.5 % Plt 183 150 - 400 K/cumm MPV 9.6 9.1 - 12.3 fL RBC 2.68 (L) 3.90 - 5.20 M/cumm MCV 90.7 81.3 - 96.4 fL MCH 30.6 27.1 - 33.3 pg MCHC 33.7 32.3 - 35.7 g/dL RDW CV 14.2 11.1 - 14.9 % RDW SD 46.3 35.7 - 48.1 fL NRBC abs 0.00 0.00 - 0.01 K/cumm Basic metabolic panel Collection Time: 10/25/19 4:19 AM Result Value Ref Range Sodium 131 (L) 135 - 145 mmol/L Potassium, pl 3.7 3.3 - 4.9 mmol/L Chloride 96 (L) 97 - 110 mmol/L CO2 28 22 - 32 mmol/L Anion gap 7 2 - 15 mmol/L BUN 24 8 - 25 mg/dL Creatinine 0.98 0.60 - 1.10 mg/dL Glucose 105 70 - 199 mg/dL Calcium 8.5 8.5 - 10.3 mg/dL Magnesium Collection Time: 10/25/19 4:19 AM Result Value Ref Range Magnesium 2.2 1.4 - 2.5 mg/dL Calcium, ionized Collection Time: 10/25/19 4:19 AM Result Value Ref Range Calcium, Ionized 4.44 (L) 4.50 - 5.10 mg/dL Phosphorus Collection Time: 10/25/19 4:19 AM Result Value Ref Range Phosphorus, pl 2.9 2.3 - 4.5 mg/dL POCT glucose Collection Time: 10/25/19 4:19 AM Result Value Ref Range Glucose, POC 120 70 - 199 mg/dL Differential, auto Collection Time: 10/25/19 4:19 AM Result Value Ref Range Neutrophil abs 4.4 1.7 - 6.5 K/cumm Imm gran abs 0.0 0.0 - 0.1 K/cumm Lymphocyte abs 1.6 0.8 - 3.3 K/cumm Monocyte abs 0.7 0.2 - 0.8 K/cumm Eosinophil abs 0.1 0.0 - 0.5 K/cumm Basophil abs 0.0 0.0 - 0.1 K/cumm Neutrophil pct 63.1 % Imm gran pct 0.6 % Lymphocyte pct 23.4 % Monocyte pct 10.6 % Eosinophil pct 2.0 % Basophil pct 0.3 % Type and screen Collection Time: 10/25/19 5:24 AM Result Value Ref Range ABO Rh O Positive Mara, indirect Negative POCT glucose Collection Time: 10/25/19 8:13 AM Result Value Ref Range Glucose, POC 117 70 - 199 mg/dL POCT glucose Collection Time: 10/25/19 11:34 AM Result Value Ref Range Glucose, POC 155 70 - 199 mg/dL Assessment/Plan Active Problems: Stenosis of brachiocephalic artery (CMS/HCC) Labile hypertension Chronic back pain complicated by acute surgical pain Acute blood loss anemia Status post carotid surgery Acute hypoxemic respiratory failure (CMS/HCC) # Stenosis of right subclavian artery, innominate artery, and left common carotid artery Syncopal episodes - Fall precautions -??Keep on telemetry - Q4H neurologic checks - 10/21: 2. Partial sternotomy, Bypass from ascending aorta to right axillary artery with 6 mm PTFE,and Bypass from ascending aorta to right common carotid artery and left common carotid artery with 8 mm and 7 mm Dacron grafts -To CTICU immediately post op -Successfully extubated, temporary on nicardipine gtt -10/25: Transferred to [facility] -PT/OT to evaluate, recommendations appreciated # Right groin ecchymosis: - 10/19 Right groin ultrasound negative for PSA and hematoma. -10/25 Fading ecchymosis ?? #Benign hypertension - Allow permissive hypertension, ideally 160 to 180. - BP control improved. - Continue Coreg, increase as needed. - PRN labetalol for SBP over 200 Cosigned by Nanci Giron MD at 10/26/2019 8:18 AM SAP BUSINESS OBJECTS CONSULTANT BUSINESS OBJECTS CONSULTANT BUSINESS OBJECTS CONSULTANT Associated attestation - Nanci Giron MD - 10/26/2019 8:18 AM SAP BUSINESS OBJECTS CONSULTANT I have seen and examined the patient on 10/25/2019. I agree with the findings and plan of care as documented in the resident's/fellow's note. * Mario Leiva MD - 10/25/2019 6:37 AM CST Vascular Surgery Daily Progress Patient Name/MRN: Suma Saenz [id number] Treatment Team: Vascular Surgery- Phone Attending: Nanci Giron MD Today's Date: 10/25/2019 Room/Bed: [id number] Admit Date: 10/17/2019 Code Status: Full Code Subjective Chief complaint: drop attacks Events Over Last 24 Hours: No acute events. Chest tubes removed yesterday. Currently having a bowel movement. Allergies Allergen Reactions ??? Naproxen Rash ??? Nsaids (Non-Steroidal Anti-Inflammatory Drug) Hives ??? Penicillins Rash ??? Sulfa (Sulfonamide Antibiotics) Rash Current Facility-Administered Medications Medication Dose Route Frequency Provider Last Rate Last Dose ??? acetaminophen (TYLENOL) tablet 1,000 mg 1,000 mg oral Q6H [facility] Mario House MD 1,000 mg at 10/25/19 0426 Or ??? acetaminophen (TYLENOL) 32 mg/mL oral solution 1,000 mg 1,000 mg feeding tube Q6H [facility] Mario House MD Or ??? acetaminophen (TYLENOL) suppository 650 mg 650 mg rectal Q6H [facility] Mario House MD ??? aspirin tablet 325 mg 325 mg oral Daily Mario House MD 325 mg at 10/24/19 100 ??? atorvastatin (LIPITOR) tablet 80 mg 80 mg oral Nightly Mario House MD 80 mg at 10/24/192051 ??? buPROPion XL (WELLBUTRIN XL) 24 hour tablet 150 mg 150 mg oral Daily Mario House MD150 mg at 10/24/19 1001 ??? calcium carbonate (TUMS) chewable tablet 1,000 mg 400 mg of elemental calcium oral Q6H PRN Mario House MD 1,000 mg at 10/25/19 0550 ??? camphor-menthol (SARNA) 0.5-0.5 % lotion topical Q6H PRN Hudson Kern MD ??? carvediloL (COREG) tablet 12.5 mg 12.5 mg oral BID Rashmi Moura NP 12.5 mg at 10/24/192051 ??? dextrose (GLUTOSE) 40 % gel 15 g 15 g oral Q15 Min PRN Mario House MD Or ??? dextrose (D10W) 10% bolus 250 mL 250 mL intravenous Q15 Min PRN Mario oHuse MD ??? docusate sodium (COLACE) capsule 100 mg 100 mg oral BID Mario House MD 100 mg at 10/24/192051 ??? dronabinol (MARINOL) capsule 2.5 mg 2.5 mg oral BID AC (lunch, dinner) Jayce Alvarez MD 2.5 mg at 10/24/19 1745 ??? glucagon injection 1 mg 1 mg intramuscular Q30 Min PRN Mario House MD ??? heparin 5,000 unit/mL injection 5,000 Units 5,000 Units subcutaneous Q8H [facility] Mario House MD 5,000 Units at 10/25/19 0528 ??? insulin lispro (HumaLOG) injection 1-3 Units 1-3 Units subcutaneous Q4H [facility] Mario House MD 1 Units at 10/23/19 1533 ??? Lactated Ringer's (LR) infusion 30 mL/hr intravenous Continuous Gasper Salgado MD Stoppedat 10/24/19 1100 ??? montelukast (SINGULAIR) tablet 10 mg 10 mg oral Nightly Mario House MD 10 mg at 10/24/192052 ??? ondansetron (ZOFRAN) injection 4 mg 4 mg intravenous Q4H PRN Gasper Salgado MD ??? oxyCODONE (ROXICODONE) tablet 10 mg 10 mg oral Q3H PRN Jayce Alvarez MD 10 mg at 10/24/192051 ??? polyethylene glycol (MIRALAX) packet 17 g 17 g oral BID Gasper Salgado MD 17 g at 10/24/192052 ??? potassium chloride 20 mEq/50 mL in sterile water (premix) 20 mEq 20 mEq intravenous Q1H PRN Mario House MD ??? senna (SENOKOT) tablet 2 tablet 2 tablet oral BID Gasper Salgado MD 2 tablet at 10/24/192051 ??? sodium chloride 0.9% flush 0.5-20 mL 0.5-20 mL intra-catheter Q8H [facility] Mario House MD 10 mL at 10/25/19421 ??? sodium chloride 0.9% flush 0.5-20 mL 0.5-20 mL intra-catheter PRN Mario House MD 10mL at 10/21/192125 ??? sodium chloride 0.9% infusion 6 mL/hr intravenous Continuous Gasper Salgado MD 3 mL/hr at10/24/19 1900 3 mL/hr at 10/24/19 1900 Objective Vitals: 24hr Min/Max: Temp Min: 36.3 ??C (97.3 ??F) Max: 37.5 ??C (99.5 ??F) Pulse Min: 75 Max: 90 BP Min: 96/57 Max: 160/59 Resp Min: 13 Max: 31 SpO2 Min: 92 % Max: 100 % Most Recent : Vitals: 10/25/19 0600 BP: Pulse: 79 Resp: 17 Temp: SpO2: 93% I/O last 2 completed shifts: In: 1080.7 [P.O.:660; I.V.:320.7; IV Piggyback:100] Out: 1920 [Urine:1780; Chest Tube:140] I/O this shift: In: 483 [P.O.:480; I.V.:3] Out: 825 [Urine:825] Physical Exam: General appearance: appears stated age Constitutional: No acute distress Eyes: EOMI, anicteric Cardiovascular: reg rate, reg rhythm Right Radial: palp Respiratory: non-labored breathing Skin: no ulceration GI: Soft, non-tender; non-distended. No pusatile abdominal mass Muskuloskeletal: Extremities wwp Incisions: -right ax incision well approximated, sternotomy incision well approx Neuro: Alert and oriented x4, non-focal Lab/Radiology/Diagnostic Review: Laboratory review: Lab results in the last 24 hours: Recent Results (from the past 24 hour(s)) POCT glucose Collection Time: 10/24/19 7:35 AM Result Value Ref Range Glucose, POC 116 70 - 199 mg/dL POCT glucose Collection Time: 10/24/19 12:22 PM Result Value Ref Range Glucose, POC 147 70 - 199 mg/dL POCT glucose Collection Time: 10/24/19 4:28 PM Result Value Ref Range Glucose, POC 138 70 - 199 mg/dL Basic metabolic panel Collection Time: 10/24/19 5:29 PM Result Value Ref Range Sodium 129 (L) 135 - 145 mmol/L Potassium, pl 4.0 3.3 - 4.9 mmol/L Chloride 94 (L) 97 - 110 mmol/L CO2 28 22 - 32 mmol/L Anion gap 7 2 - 15 mmol/L BUN 27 (H) 8 - 25 mg/dL Creatinine 1.09 0.60 - 1.10 mg/dL Glucose 128 70 - 199 mg/dL Calcium 8.7 8.5 - 10.3 mg/dL Magnesium Collection Time: 10/24/19 5:29 PM Result Value Ref Range Magnesium 2.2 1.4 - 2.5 mg/dL POCT glucose Collection Time: 10/24/19 8:11 PM Result Value Ref Range Glucose, POC 141 70 - 199 mg/dL POCT glucose Collection Time: 10/24/19 11:08 PM Result Value Ref Range Glucose, POC 134 70 - 199 mg/dL CBC with auto differential Collection Time: 10/25/19 4:19 AM Result Value Ref Range WBC 6.9 3.8 - 9.9 K/cumm Hgb 8.2 (L) 11.9 - 15.5 g/dL Hct 24.3 (L) 35.6 - 45.5 % Plt 183 150 - 400 K/cumm MPV 9.6 9.1 - 12.3 fL RBC 2.68 (L) 3.90 - 5.20 M/cumm MCV 90.7 81.3 - 96.4 fL MCH 30.6 27.1 - 33.3 pg MCHC 33.7 32.3 - 35.7 g/dL RDW CV 14.2 11.1 - 14.9 % RDW SD 46.3 35.7 - 48.1 fL NRBC abs 0.00 0.00 - 0.01 K/cumm Basic metabolic panel Collection Time: 10/25/19 4:19 AM Result Value Ref Range Sodium 131 (L) 135 - 145 mmol/L Potassium, pl 3.7 3.3 - 4.9 mmol/L Chloride 96 (L) 97 - 110 mmol/L CO2 28 22 - 32 mmol/L Anion gap 7 2 - 15 mmol/L BUN 24 8 - 25 mg/dL Creatinine 0.98 0.60 - 1.10 mg/dL Glucose 105 70 - 199 mg/dL Calcium 8.5 8.5 - 10.3 mg/dL Magnesium Collection Time: 10/25/19 4:19 AM Result Value Ref Range Magnesium 2.2 1.4 - 2.5 mg/dL Calcium, ionized Collection Time: 10/25/19 4:19 AM Result Value Ref Range Calcium, Ionized 4.44 (L) 4.50 - 5.10 mg/dL Phosphorus Collection Time: 10/25/19 4:19 AM Result Value Ref Range Phosphorus, pl 2.9 2.3 - 4.5 mg/dL POCT glucose Collection Time: 10/25/19 4:19 AM Result Value Ref Range Glucose, POC 120 70 - 199 mg/dL Differential, auto Collection Time: 10/25/19 4:19 AM Result Value Ref Range Neutrophil abs 4.4 1.7 - 6.5 K/cumm Imm gran abs 0.0 0.0 - 0.1 K/cumm Lymphocyte abs 1.6 0.8 - 3.3 K/cumm Monocyte abs 0.7 0.2 - 0.8 K/cumm Eosinophil abs 0.1 0.0 - 0.5 K/cumm Basophil abs 0.0 0.0 - 0.1 K/cumm Neutrophil pct 63.1 % Imm gran pct 0.6 % Lymphocyte pct 23.4 % Monocyte pct 10.6 % Eosinophil pct 2.0 % Basophil pct 0.3 % Type and screen Collection Time: 10/25/19 5:24 AM Result Value Ref Range ABO Rh O Positive Mara, indirect Negative Assessment/Plan Suma Saenz is a 73 y.o. female who is POD1 s/p aorto-R axillary, aorto- LCCA, aorto-RCCA bypasses. Doing well overall ASA daily No more plavix bp control, can transition/add orals as needed Normotensive oob Reg diet Appreciate cticu and ct surg care, when she is ready to come out of icu (once not maxed out on cardene gtt) she can come to dr giron service Cosigned by Nanci Giron MD at 10/25/2019 9:54 AM SAP BUSINESS OBJECTS CONSULTANT BUSINESS OBJECTS CONSULTANT BUSINESS OBJECTS CONSULTANT Associated attestation - Nanci Giron MD - 10/25/2019 9:54 AM SAP BUSINESS OBJECTS CONSULTANT I have seen and examined the patient on 10/25/19. I agree with the findings and plan of care with the following modifications:I saw the patient in the cardiac ICU. She looks great. Blood pressure is well controlled, incisions are clean and intact, no neurologic events. She is eating and ambulating short distances. Anticipate Alva catheterization removal and transfer to the floor today... * Mario House MD - 10/25/2019 12:[address] ICU Daily Progress Shifts: MD Shift Options: CTI PM 1 Subjective Patient is a 73 y.o. 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 Ramírez and Bree.?? Interval History: Discontinued Lidocaine drip Decreased Coreg to 12.5 mg BID Lasix 40 mg given Weaned optiflow to NC Removed A line Indigestion: TUMS and GI cocktail for heart burn, unchanged EKG added docusate to bowel regimen Objective Medications: Scheduled Meds:acetaminophen, 1,000 mg, oral, Q6H REID Or acetaminophen, 1,000 mg, feeding tube, Q6H REID Or acetaminophen, 650 mg, rectal, Q6H REID aspirin, 325 mg, oral, Daily atorvastatin, 80 mg, oral, Nightly buPROPion XL, 150 mg, oral, Daily carvediloL, 12.5 mg, oral, BID docusate sodium, 100 mg, oral, BID dronabinol, 2.5 mg, oral, BID AC (lunch, dinner) heparin, 5,000 Units, subcutaneous, Q8H RE[facility] insulin lispro, 1-3 Units, subcutaneous, Q4H RE[facility] montelukast, 10 mg, oral, Nightly polyethylene glycol, 17 g, oral, BID senna, 2 tablet, oral, BID sodium chloride 0.9%, 0.5-20 mL, intra-catheter, Q8H RE[facility] Continuous Infusions:Lactated Ringer's, 30 mL/hr, Last Rate: Stopped (10/24/19 1100) sodium chloride 0.9%, 6 mL/hr, Last Rate: 3 mL/hr (10/24/19 1900) Vitals: Temp: [36.3 ??C (97.3 ??F)-37.5 ??C (99.5 ??F)] 36.7 ??C (98.1 ??F) Pulse: [75-90] 79 BP: (96-160)/(44-67) 139/51 Resp: [13-31] 17 SpO2: [90 %-100 %] 94 % Arterial Line BP: (84-121)/(37-54) 121/44 FiO2 (%): [40 %-50 %] 40 % Fluid balance: I/O this shift: In: 453 [P.O.:450; I.V.:3] Out: 245 [Urine:245] Intake/Output Summary (Last 24 hours) at 10/24/2019 2340 Last data filed at 10/24/2019 2300 Gross per 24 hour Intake 1265.14 ml Output 1440 ml Net -174.86 ml Vent settings: FiO2 (%): 40 % (10/24 1000) Hemodynamic parameters: PAP: -- CVP: -- PCWP: -- CO: -- CI: -- SVO2: -- Pacemaker Overdrive Pacing: -- Cardiac Rhythm: Normal sinus rhythm (10/24 2299) Pacer Mode: -- Physical exam: General:??Obese female,??laying in bed comfortably Ear/Nose/Throat:??NCAT, NC in place Lungs:??clear to auscultation bilaterally Chest:??surgical incisions on upper chest c/d/i with dermabond, chest tubes with minimal serosanguinous output Abdomen:??soft non tender non distended Extremities:??warm and well perfused Neurologic:??Moves all extremities to command,??A+O x4 Psych: Appropriate mood and affect ?? Laboratory data: Recent Labs Lab Units 10/24/1913410/22/19 2350 10/22/19 1137 WBC K/cumm 10.0* 15.8* 15.1* HEMOGLOBIN g/dL 8.0* 9.2* 10.1* HEMATOCRIT % 23.0* 26.9* 29.8* PLATELETS K/cumm 151 169 207 Recent Labs Lab Units 10/24/19 1729 10/24/1913410/22/19 2350 SODIUM mmol/L 129* 131* 133* POTASSIUM PLASMA mmol/L 4.0 3.5 4.2 CHLORIDE mmol/L 94* 99 104 CO2 mmol/L 28 26 22 BUN SERUM mg/dL 27* 22 23 CREATININE mg/dL 1.09 1.01 1.05 CALCIUM mg/dL 8.7 8.2* 8.6 Recent Labs Lab Units 10/21/19 1729 10/18/19 0102 PROTIME (PT) sec 15.6* 11.2 INR 1.4* 1.0 APTT sec 27 33 Recent Labs Lab Units 10/21/19 1847 10/21/19 1729 10/21/19 1551 PH ART 7.34* 7.33* 7.27* PCO2 ART mmHg 38 38 -- PO2 ART mmHg 161* 156* -- PO2 ARTERIAL POC mmHg -- -- 286* BASE EXC ART mmol/L -5 -6 -- Radiology/Diagnostic Review CXR: Stable to slightly improved atelectasis and unchanged small left pleural effusion Assessment/Plan Acute hypoxemic respiratory failure (CMS/HCC) Assessment & Plan - Extubated on 10/21, transitioned to NC - Placed on Optiflow 10/23 (40L and 40% FiO2), goal SpO2 >92, weaned to NC on 10/24 Continue mobility and PAP treatments as necessary Status post carotid surgery Assessment & Plan - S/P 10/21 aorta -> R axillary bypass and asc aorta + R + L common carotid bypass - Continue to monitor closely for signs of cerebral hyperperfusion syndrome - MAP >65 - No signs of headache or focal neurologic deficits Acute blood loss anemia Assessment & Plan - Hgb 7.1 -> 10.3 after 1U PRBC 10/21 - hgb stable since Chronic back pain complicated by acute surgical pain Assessment & Plan - APAP sched, transitioned to PO oxy 10/23, dronabinol 2.5 BID AC - Patient uses THC at home for pain, dronabinol significantly improved symptoms. - Lidocaine drip discontinued 10/24 Labile hypertension Assessment & Plan Currently hypotensive but initially hypertensive in OR. Will likely need restarting of his anti-hypertensives once acute post surgical hemodynamics stabilize. - While standing 10/22 afternoon, became hpotensive -> started on levo transiently, sat down and off pressors and back on nicardipine - 10/23 Increased coreg to 25 BID for SBP <120 Cosigned by Michael Marcelo MD at 10/25/2019 11:06 AM SAP BUSINESS OBJECTS CONSULTANT BUSINESS OBJECTS CONSULTANT BUSINESS OBJECTS CONSULTANT Associated attestation - iMchael Marcelo MD - 10/25/2019 11:06 AM SAP BUSINESS OBJECTS CONSULTANT Attending Documentation: I have seen and examined this critically ill patient on the day of service. I have reviewed and confirmed the history, physical exam, laboratory and radiologic data with the house staff as documentedin the ICU Resident note. I have reviewed and discussed my treatment plan with the ICU team and other medical/sap bw consultant staff, making frequent assessments and decisions regarding this patient's complex medical care. Critical care was necessary to treat or prevent imminent or life-threatening deterioration of the following conditions: Active Problems: Stenosis of brachiocephalic artery (CMS/HCC) Labile hypertension Chronic back pain complicated by acute surgical pain Acute blood loss anemia Status post carotid surgery Acute hypoxemic respiratory failure (CMS/HCC) Attending Assessment/Plan: S/p aorto to right axillary and aorto to bilateral carotid bypass - Successfully extubated 10/21 P.M., no signs of cerebral hypoperfusion at this time- continue to monitor - MAP>65 and SBP<120, off pressors since extubation, now off icardipine gtt - cont Coreg .No further episode of orthostasis Diuresis prn to keep even fluid balance Encourage IS- oxygenation stable Can be transferred out Michael Marcelo MD * Virginia Patterson MD - 10/24/2019 10:25 AM CST Pain Service Daily Progress Chief Complaint: acute post-operative pain HPI: 73 yo woman with history of 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 A lidocaine infusion was started overnight 10/21-10/22 to aid in pain management. She does not take any narcotics at home for pain management. SUBJECTIVE: Interval History: Lidocaine infusion off. Patient's pain well managed with scheduled Tylenol and p.r.n. oxy. with no need for IV breakthrough medication Current Analgesic Regimen Acetaminophen 1000 mg q6h Oxycodone 10 mg q.3 hours p.r.n. (used 4 doses in last 24 hours) Scheduled Medications: acetaminophen, 1,000 mg, oral, Q6H REID Or acetaminophen, 1,000 mg, feeding tube, Q6H REID Or acetaminophen, 650 mg, rectal, Q6H REID aspirin, 325 mg, oral, Daily atorvastatin, 80 mg, oral, Nightly buPROPion XL, 150 mg, oral, Daily carvediloL, 12.5 mg, oral, BID dronabinol, 2.5 mg, oral, BID AC (lunch, dinner) heparin, 5,000 Units, subcutaneous, Q8H REID insulin lispro, 1-3 Units, subcutaneous, Q4H REID montelukast, 10 mg, oral, Nightly polyethylene glycol, 17 g, oral, BID senna, 2 tablet, oral, BID sodium chloride 0.9%, 0.5-20 mL, intra-catheter, Q8H REID Continuous Medications: Lactated Ringer's, 30 mL/hr, Last Rate: 10 mL/hr (10/24/19 1000) sodium chloride 0.9%, 6 mL/hr, Last Rate: 3 mL/hr (10/24/19 1000) PRN Medications: camphor-menthol ??? dextrose OR dextrose ??? glucagon ??? ondansetron ??? oxyCODONE ??? potassium chloride ??? sodium chloride 0.9% OBJECTIVE: Vitals: 24hr Min/Max: Temp Min: 97.3 ??F (36.3 ??C) Max: 99.3 ??F (37.4 ??C) Pulse Min: 74 Max: 89 BP Min: 96/57 Max: 133/56 Resp Min: 13 Max: 27 SpO2 Min: 90 % Max: 99 % Most Recent : Vitals: 10/24/19 1009 BP: Pulse: Resp: Temp: SpO2: 99% Physical Exam: General:??Obese female,??laying in bed comfortably Ear/Nose/Throat:??NCAT, nasal cannula in place Lungs:??clear to auscultation bilaterally Chest:??dressings CDI Abdomen:??soft non tender non distended Extremities:??warm and well perfused Pulses:??palpable radial pulses Neurologic:??Moves all extremities to command,??A+O x4 Psych: Appropriate mood and affect. Labs/Radiology/Diagnostic Review: Recent Labs Lab Units 10/24/19 0135 WBC K/cumm 10.0* HEMOGLOBIN g/dL 8.0* HEMATOCRIT % 23.0* PLATELETS K/cumm 151 Recent Labs Lab Units 10/24/19 0735 10/24/19 0135 SODIUM mmol/L -- 131* POTASSIUM PLASMA mmol/L -- 3.5 CHLORIDE mmol/L -- 99 CO2 mmol/L -- 26 ANIONGAP mmol/L -- 6 GLUCOSE mg/dL -- 125 POC GLUCOSE MONITOR mg/dL 116 -- BUN SERUM mg/dL -- 22 CREATININE mg/dL -- 1.01 CALCIUM mg/dL -- 8.2* Recent Labs Lab Units 10/21/19 1729 APTT sec 27 INR 1.4* ASSESSMENT AND PLAN: 73 yo woman with history of 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 A lidocaine infusion was started overnight 10/21-10/22 to aid in pain management. She does not take any narcotics at home for pain management. 1. Interventions No interventions indicated at this time. 2. Medications -Agree with scheduled acetaminophen. -agree with oxycodone 10 mg q.3 hours p.r.n. - agree with discontinuation of lidocaine infusion This plan was discussed with the attending pain physician. Thank you for allowing us to participatein the care of this patient. We will sign off at this time. -- Virginia Patterson MD Resident Physician Department of Anesthesiology [facility] in [place] Cosigned by Hudson Frye MD at 10/24/2019 9:56 PM SAP BUSINESS OBJECTS CONSULTANT BUSINESS OBJECTS CONSULTANT BUSINESS OBJECTS CONSULTANT Associated attestation - Hudson Frye MD - 10/24/2019 9:56 PM SAP BUSINESS OBJECTS CONSULTANT I have seen and examined the patient on 10/24/19. I agree with the findings and plan of care as documented in the resident's/fellow's note and as discussed with the resident/fellow.. * Mario Leiva MD - 10/24/2019 8:30 AM CST Vascular Surgery Daily Progress Patient Name/MRN: Suma Saenz [id number] Treatment Team: Vascular Surgery- Phone Attending: Nanci Giron MD Today's Date: 10/24/2019 Room/Bed: [id number] Admit Date: 10/17/2019 Code Status: Full Code Subjective Chief complaint: drop attacks Events Over Last 24 Hours: No acute events. Pain better controlled. Still on high flow NC. Allergies Allergen Reactions ??? Naproxen Rash ??? Nsaids (Non-Steroidal Anti-Inflammatory Drug) Hives ??? Penicillins Rash ??? Sulfa (Sulfonamide Antibiotics) Rash Current Facility-Administered Medications Medication Dose Route Frequency Provider Last Rate Last Dose ??? acetaminophen (TYLENOL) tablet 1,000 mg 1,000 mg oral Q6H [facility] Mario House MD 1,000 mg at 10/24/19 0606 Or ??? acetaminophen (TYLENOL) 32 mg/mL oral solution 1,000 mg 1,000 mg feeding tube Q6H [facility] Mario House MD Or ??? acetaminophen (TYLENOL) suppository 650 mg 650 mg rectal Q6H [facility] Mario House MD ??? aspirin tablet 325 mg 325 mg oral Daily Mario House MD 325 mg at 10/23/19 08 ??? atorvastatin (LIPITOR) tablet 80 mg 80 mg oral Nightly Mario House MD 80 mg at 10/23/192119 ??? buPROPion XL (WELLBUTRIN XL) 24 hour tablet 150 mg 150 mg oral Daily Mario House MD150 mg at 10/23/19 08 ??? camphor-menthol (SARNA) 0.5-0.5 % lotion topical Q6H PRN Hudson Kern MD ??? carvediloL (COREG) tablet 25 mg 25 mg oral BID Jayce Alvarez MD 25 mg at 10/23/192119 ??? dextrose (GLUTOSE) 40 % gel 15 g 15 g oral Q15 Min PRN Mario House MD Or ??? dextrose (D10W) 10% bolus 250 mL 250 mL intravenous Q15 Min PRN Mario House MD ??? dronabinol (MARINOL) capsule 2.5 mg 2.5 mg oral BID AC (lunch, dinner) Jayce Alvarez MD 2.5 mg at 10/23/19 1754 ??? glucagon injection 1 mg 1 mg intramuscular Q30 Min PRN Mario House MD ??? heparin 5,000 unit/mL injection 5,000 Units 5,000 Units subcutaneous Q8H [facility] Mario House MD 5,000 Units at 10/24/19 0606 ??? insulin lispro (HumaLOG) injection 1-3 Units 1-3 Units subcutaneous Q4H [facility] Mario House MD 1 Units at 10/23/19 1533 ??? Lactated Ringer's (LR) infusion 30 mL/hr intravenous Continuous Gasper Salgado MD 10 mL/hr at 10/24/19 0700 10 mL/hr at 10/24/19 0700 ??? montelukast (SINGULAIR) tablet 10 mg 10 mg oral Nightly Mario House MD 10 mg at 10/23/192119 ??? niCARdipine in 0.9% sodium chloride (CARDENE) 25 mg/50 mL (0.5 mg/mL) infusion (premix) 0.5-2.5mcg/kg/min intravenous Titrated Andry Grant MD Stopped at 10/23/19 2346 ??? ondansetron (ZOFRAN) injection 4 mg 4 mg intravenous Q4H PRN Gasper Salgado MD ??? oxyCODONE (ROXICODONE) tablet 10 mg 10 mg oral Q3H PRN Jayce Alvarez MD 10 mg at 10/24/19 0656 ??? polyethylene glycol (MIRALAX) packet 17 g 17 g oral BID Gasper Salgado MD 17 g at 10/23/192119 ??? potassium chloride 20 mEq/50 mL in sterile water (premix) 20 mEq 20 mEq intravenous Q1H PRN Mario House MD ??? senna (SENOKOT) tablet 2 tablet 2 tablet oral BID Gasper Salgado MD 2 tablet at 10/23/192120 ??? sodium chloride 0.9% flush 0.5-20 mL 0.5-20 mL intra-catheter Q8H [facility] Mario House MD 10 mL at 10/24/19 0606 ??? sodium chloride 0.9% flush 0.5-20 mL 0.5-20 mL intra-catheter PRN Mario House MD 10mL at 10/21/192125 ??? sodium chloride 0.9% infusion 6 mL/hr intravenous Continuous Gasper Salgado MD 3 mL/hr at10/24/19 0700 3 mL/hr at 10/24/19 0700 ??? sodium chloride 0.9% solution 1,000 mL 1,000 mL intra-catheter Continuous Mario House MD Objective Vitals: 24hr Min/Max: Temp Min: 37.3 ??C (99.1 ??F) Max: 37.4 ??C (99.3 ??F) Pulse Min: 74 Max: 89 BP Min: 96/57 Max: 96/57 Resp Min: 14 Max: 27 SpO2 Min: 90 % Max: 97 % Most Recent : Vitals: 10/24/19 0816 BP: Pulse: Resp: Temp: SpO2: 96% I/O last 2 completed shifts: In: 1715.7 [P.O.:860; I.V.:755.7; IV Piggyback:100] Out: 2255 [Urine:2015; Chest Tube:240] I/O this shift: In: 13 [I.V.:13] Out: 35 [Urine:35] Physical Exam: General appearance: appears stated age Constitutional: No acute distress Eyes: EOMI, anicteric Cardiovascular: reg rate, reg rhythm Right Radial: palp Respiratory: non-labored breathing Skin: no ulceration GI: Soft, non-tender; non-distended. No pusatile abdominal mass Muskuloskeletal: Extremities wwp Incisions: -right ax incision well approx, mild superficial bruising but no induration or erythema and is soft, no hematoma -sternotomy incision well approx Neuro: Alert and oriented x4, non-focal Lab/Radiology/Diagnostic Review: Laboratory review: Lab results in the last 24 hours: Recent Results (from the past 24 hour(s)) POCT glucose Collection Time: 10/23/19 12:10 PM Result Value Ref Range Glucose, POC 124 70 - 199 mg/dL POCT glucose Collection Time: 10/23/19 3:28 PM Result Value Ref Range Glucose, POC 191 70 - 199 mg/dL POCT glucose Collection Time: 10/23/19 9:36 PM Result Value Ref Range Glucose, POC 119 70 - 199 mg/dL POCT glucose Collection Time: 10/23/19 11:43 PM Result Value Ref Range Glucose, POC 121 70 - 199 mg/dL Lidocaine level Collection Time: 10/24/19 1:35 AM Result Value Ref Range Lidocaine (Xylocaine) 3.6 1.5 - 5.0 mcg/mL CBC with auto differential Collection Time: 10/24/19 1:35 AM Result Value Ref Range WBC 10.0 (H) 3.8 - 9.9 K/cumm Hgb 8.0 (L) 11.9 - 15.5 g/dL Hct 23.0 (L) 35.6 - 45.5 % Plt 151 150 - 400 K/cumm MPV 9.5 9.1 - 12.3 fL RBC 2.50 (L) 3.90 - 5.20 M/cumm MCV 92.0 81.3 - 96.4 fL MCH 32.0 27.1 - 33.3 pg MCHC 34.8 32.3 - 35.7 g/dL RDW CV 14.0 11.1 - 14.9 % RDW SD 47.0 35.7 - 48.1 fL NRBC abs 0.00 0.00 - 0.01 K/cumm Basic metabolic panel Collection Time: 10/24/19 1:35 AM Result Value Ref Range Sodium 131 (L) 135 - 145 mmol/L Potassium, pl 3.5 3.3 - 4.9 mmol/L Chloride 99 97 - 110 mmol/L CO2 26 22 - 32 mmol/L Anion gap 6 2 - 15 mmol/L BUN 22 8 - 25 mg/dL Creatinine 1.01 0.60 - 1.10 mg/dL Glucose 125 70 - 199 mg/dL Calcium 8.2 (L) 8.5 - 10.3 mg/dL Magnesium Collection Time: 10/24/19 1:35 AM Result Value Ref Range Magnesium 2.0 1.4 - 2.5 mg/dL Phosphorus Collection Time: 10/24/19 1:35 AM Result Value Ref Range Phosphorus, pl 2.2 (L) 2.3 - 4.5 mg/dL Differential, auto Collection Time: 10/24/19 1:35 AM Result Value Ref Range Neutrophil abs 7.9 (H) 1.7 - 6.5 K/cumm Imm gran abs 0.1 0.0 - 0.1 K/cumm Lymphocyte abs 1.2 0.8 - 3.3 K/cumm Monocyte abs 0.8 0.2 - 0.8 K/cumm Eosinophil abs 0.0 0.0 - 0.5 K/cumm Basophil abs 0.0 0.0 - 0.1 K/cumm Neutrophil pct 79.1 % Imm gran pct 0.9 % Lymphocyte pct 11.8 % Monocyte pct 7.7 % Eosinophil pct 0.4 % Basophil pct 0.1 % POCT glucose Collection Time: 10/24/19 7:35 AM Result Value Ref Range Glucose, POC 116 70 - 199 mg/dL Assessment/Plan Suma Saenz is a 73 y.o. female who is POD1 s/p aorto-R axillary, aorto- LCCA, aorto-RCCA bypasses. Doing well overall ASA daily No more plavix bp control, can transition/add orals as needed SBP < 120 oob Reg diet Chest tubes per ct surg High risk reperfusion syndrome, would watch pressures closely and for headaches Appreciate cticu and ct surg care, when she is ready to come out of icu (once not maxed out on cardene gtt) she can come to dr giron service Cosigned by Nanci Giron MD at 10/24/2019 4:41 PM [employer] BUSINESS OBJECTS CONSULTANT BUSINESS OBJECTS CONSULTANT BUSINESS OBJECTS CONSULTANT BUSINESS OBJECTS CONSULTANT Associated attestation - Nanci Giron MD - 10/24/2019 4:41 PM SAP BUSINESS OBJECTS CONSULTANT I have seen and examined the patient on 10/24/19. I agree with the findings and plan of care with the following modifications:I saw her in the cardiac ICU today. She is recovering nicely thus far. She is neurologically intact and the incisions are clean and well approximated. Blood pressure controlis good. She is eating. The cardiac ICU team will decide when she is appropriate for transfer to a step-down her floor bed. We will continue daily aspirin therapy... * Gasper Salgado MD - 10/24/2019 12:[address] ICU Daily Progress Shifts: MD Shift Options: CTI PM 1 Subjective Patient is a 73 y.o. 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 Ramírez and Bree.?? Interval History: - Placed on optiflow (40L, 40% FiO2) from nasal cannula. Patient denies subjective SOB - Increased coreg to 25 BID - Transitioned to oral pain meds today and dronabinol 2.5 mg BID AC added - Continues on nicard drip for SBP <120 and MAP >65 - Increased bowel regiment to 2 tab senna BID + miralax BID Objective Medications: Scheduled Meds:acetaminophen, 1,000 mg, oral, Q6H REID Or acetaminophen, 1,000 mg, feeding tube, Q6H REID Or acetaminophen, 650 mg, rectal, Q6H REID aspirin, 325 mg, oral, Daily atorvastatin, 80 mg, oral, Nightly buPROPion XL, 150 mg, oral, Daily carvediloL, 25 mg, oral, BID dronabinol, 2.5 mg, oral, BID AC (lunch, dinner) heparin, 5,000 Units, subcutaneous, Q8H REID insulin lispro, 1-3 Units, subcutaneous, Q4H REID montelukast, 10 mg, oral, Nightly polyethylene glycol, 17 g, oral, BID senna, 2 tablet, oral, BID sodium chloride 0.9%, 0.5-20 mL, intra-catheter, Q8H REID Continuous Infusions:Lactated Ringer's, 30 mL/hr, Last Rate: 10 mL/hr (10/23/192299) niCARdipine, 0.5-2.5 mcg/kg/min, Last Rate: Stopped (10/23/192345) sodium chloride 0.9%, 6 mL/hr, Last Rate: 3 mL/hr (10/23/192299) sodium chloride 0.9%, 1,000 mL Vitals: Temp: [37 ??C (98.6 ??F)-37.4 ??C (99.3 ??F)] 37.4 ??C (99.3 ??F) Pulse: [74-89] 74 Resp: [18-29] 20 SpO2: [87 %-97 %] 93 % Arterial Line BP: (112-157)/(35-52) 130/35 FiO2 (%): [40 %-60 %] 40 % Fluid balance: I/O this shift: In: 268.6 [P.O.:120; I.V.:148.6] Out: 665 [Urine:665] Intake/Output Summary (Last 24 hours) at 10/24/2019 0002 Last data filed at 10/23/20192299 Gross per 24 hour Intake 1899.7 ml Output 2045 ml Net -145.3 ml Vent settings: FiO2 (%): 40 % (10/23 2299) Hemodynamic parameters: PAP: -- CVP: 6 mmHg (10/23 1500) PCWP: -- CO: -- CI: -- SVO2: -- Pacemaker Overdrive Pacing: -- Cardiac Rhythm: Normal sinus rhythm (10/23 2299) Pacer Mode: -- Physical exam: General:??Obese female,??laying in bed comfortably Ear/Nose/Throat:??NCAT, optiflow in place Lungs:??clear to auscultation bilaterally Chest:??surgical incisions on upper chest c/d/i with dermabond, chest tubes with minimal serosanguinous output Abdomen:??soft non tender non distended Extremities:??warm and well perfused Neurologic:??Moves all extremities to command,??A+O x4 Psych: Appropriate mood and affect ?? Laboratory data: Recent Labs Lab Units 10/22/19234910/22/19 1137 10/22/19 0124 WBC K/cumm 15.8* 15.1* 10.3* HEMOGLOBIN g/dL 9.2* 10.1* 10.3* HEMATOCRIT % 26.9* 29.8* 30.2* PLATELETS K/cumm 169 207 154 Recent Labs Lab Units 10/22/19234910/22/19 0124 10/21/19 1729 SODIUM mmol/L 133* 139 139 POTASSIUM PLASMA mmol/L 4.2 4.0 4.3 CHLORIDE mmol/L 104 110 113* CO2 mmol/L 22 21* 21* BUN SERUM mg/dL 23 19 13 CREATININE mg/dL 1.05 0.79 0.77 CALCIUM mg/dL 8.6 8.8 8.3* Recent Labs Lab Units 10/21/19 1729 10/18/19 0102 PROTIME (PT) sec 15.6* 11.2 INR 1.4* 1.0 APTT sec 27 33 Recent Labs Lab Units 10/21/19 1847 10/21/19 1729 10/21/19 1551 PH ART 7.34* 7.33* 7.27* PCO2 ART mmHg 38 38 -- PO2 ART mmHg 161* 156* -- PO2 ARTERIAL POC mmHg -- -- 286* BASE EXC ART mmol/L -5 -6 -- Radiology/Diagnostic Review CXR: Stable atelectasis and unchanged small left pleural effusion Assessment/Plan Acute hypoxemic respiratory failure (CMS/HCC) Assessment & Plan - Extubated on 10/21, transitioned to NC - Placed on Optiflow 10/23 (40L and 40% FiO2), goal SpO2 >92 Status post carotid surgery Assessment & Plan - S/P 10/21 aorta -> R axillary bypass and asc aorta + R + L common carotid bypass - Continue to monitor closely for signs of cerebral hyperperfusion syndrome - SBP <120 and MAP >65 - No signs of headache or focal neurologic deficits Acute blood loss anemia Assessment & Plan - Hgb 7.1 -> 10.3 after 1U PRBC 10/21 - hgb stable on 10/22 Chronic back pain complicated by acute surgical pain Assessment & Plan - APAP sched, transitioned to PO oxy 10/23, dronabinol 2.5 BID AC, lido gtt - Patient uses THC at home for pain, dronabinol significantly improved symptoms. Labile hypertension Assessment & Plan Currently hypotensive but initially hypertensive in OR. [...] coreg to 25 BID for SBP <120 Cosigned by Michael Marcelo MD at 10/24/2019 12:48 PM SAP BUSINESS OBJECTS CONSULTANT BUSINESS OBJECTS CONSULTANT BUSINESS OBJECTS CONSULTANT Associated attestation - Michael Marcelo MD - 10/24/2019 12:48 PM SAP BUSINESS OBJECTS CONSULTANT Attending Documentation: I have seen and examined this critically ill patient on the day of service. I have reviewed and confirmed the history, physical exam, laboratory and radiologic data with the house staff as documentedin the ICU Resident note. I have reviewed and discussed my treatment plan with the ICU team and other medical/sap bw consultant staff, making frequent assessments and decisions regarding this patient's complex medical care. Critical care was necessary to treat or prevent imminent or life-threatening deterioration of the following conditions: Active Problems: Stenosis of brachiocephalic artery (CMS/HCC) Labile hypertension Chronic back pain complicated by acute surgical pain Acute blood loss anemia Status post carotid surgery Acute hypoxemic respiratory failure (CMS/HCC) Attending Assessment/Plan: S/p aorto to right axillary and aorto to bilateral carotid bypass - Successfully extubated 2/14 P.M., continue q1h neurovasc checks- no signs of cerebral hypoperfusion at this time- continue to monitor - MAP>65 and SBP<120, off pressors since extubation, remains on nicardipine gtt - weaning - cont Coreg and attempt to wean off completely. No further episode of orthostasis Diuresis prn to keep even fluid balance Encourage IS- Optiflow as needed to maintain Sa02 > 90 Michael Marcelo MD * Zeyad Leger MD - 10/23/2019 9:23 AM CST Vascular Surgery Daily Progress Patient Name/MRN: Suma Saenz [id number] Treatment Team: Vascular Surgery- Attending: Nanci Giron MD Today's Date: 10/23/2019 Room/Bed: [place] [id number] Admit Date: 10/17/2019 Code Status: Full Code Subjective Chief complaint: drop attacks Events Over Last 24 Hours: No headaches or dizziness Still pain control is an issue, pain service has seen Chest tubes remain in, output 330 cc Blood pressure remains somewhat high despite max dose cardene She would like to get out of bed Allergies Allergen Reactions ??? Naproxen Rash ??? Nsaids (Non-Steroidal Anti-Inflammatory Drug) Hives ??? Penicillins Rash ??? Sulfa (Sulfonamide Antibiotics) Rash Current Facility-Administered Medications Medication Dose Route Frequency Provider Last Rate Last Dose ??? acetaminophen (TYLENOL) tablet 1,000 mg 1,000 mg oral Q6H [facility] Mario House MD 1,000 mg at 10/23/19 0621 Or ??? acetaminophen (TYLENOL) 32 mg/mL oral solution 1,000 mg 1,000 mg feeding tube Q6H [facility] Mario House MD Or ??? acetaminophen (TYLENOL) suppository 650 mg 650 mg rectal Q6H [facility] Mario House MD ??? aspirin tablet 325 mg 325 mg oral Daily Mario House MD 325 mg at 10/23/19 0855 ??? atorvastatin (LIPITOR) tablet 80 mg 80 mg oral Nightly Mario House MD 80 mg at 10/22/192015 ??? buPROPion XL (WELLBUTRIN XL) 24 hour tablet 150 mg 150 mg oral Daily Mario House MD150 mg at 10/23/19 0855 ??? camphor-menthol (SARNA) 0.5-0.5 % lotion topical Q6H PRN Hudson Kern MD ??? [Held by Provider] carvediloL (COREG) tablet 6.25 mg 6.25 mg oral BID Mario House MD Stopped at 10/22/19 1156 ??? dextrose (GLUTOSE) 40 % gel 15 g 15 g oral Q15 Min PRN Mario House MD Or ??? dextrose (D10W) 10% bolus 250 mL 250 mL intravenous Q15 Min PRN Mario House MD ??? glucagon injection 1 mg 1 mg intramuscular Q30 Min PRN Mario House MD ??? heparin 5,000 unit/mL injection 5,000 Units 5,000 Units subcutaneous Q8H [facility] Mario House MD 5,000 Units at 10/23/19 0621 ??? insulin lispro (HumaLOG) injection 1-3 Units 1-3 Units subcutaneous Q4H REID Mario House MD 1 Units at 10/22/19 1159 ??? Lactated Ringer's (LR) infusion 30 mL/hr intravenous Continuous Gasper Salgado MD 20 mL/hr at 10/23/19 0700 20 mL/hr at 10/23/19 0700 ??? lidocaine in dextrose 5% 2 g/250 mL (8 mg/mL) infusion (premix) 0.75 mg/kg/hr ([place]) intravenous Continuous Mario House MD 5.78 mL/hr at 10/23/19 0700 0.75 mg/kg/hr at 10/23/19 0700 ??? montelukast (SINGULAIR) tablet 10 mg 10 mg oral Nightly Mario House MD 10 mg at 10/22/192015 ??? niCARdipine in 0.9% sodium chloride (CARDENE) 25 mg/50 mL (0.5 mg/mL) infusion (premix) 0.5-2.5mcg/kg/min intravenous Titrated Andry Grant MD 26.6 mL/hr at 10/23/19 0900 2.5 mcg/kg/min at 10/23/19 0900 ??? norepinephrine in dextrose 5% (LEVOPHED) 8,000 mcg/250 mL (32 mcg/mL) infusion (premix) 0.01-2 mcg/kg/min intravenous Titrated Mario House MD Stopped at 10/22/19 1300 ??? ondansetron (ZOFRAN) injection 4 mg 4 mg intravenous Q4H PRN Gasper Salgado MD ??? oxyCODONE (ROXICODONE) tablet 5 mg 5 mg oral Q3H PRN Jayce Alvarez MD ??? polyethylene glycol (MIRALAX) packet 17 g 17 g oral Daily Gasper Salgado MD 17 g at 10/23/19 0855 ??? potassium chloride 20 mEq/50 mL in sterile water (premix) 20 mEq 20 mEq intravenous Q1H PRN Mario House MD ??? senna (SENOKOT) tablet 1 tablet 1 tablet oral BID Gasper Salgado MD 1 tablet at 10/23/19 0855 ??? sodium chloride 0.9% flush 0.5-20 mL 0.5-20 mL intra-catheter Q8H REID Mario House MD 10 mL at 10/23/19 0622 ??? sodium chloride 0.9% flush 0.5-20 mL 0.5-20 mL intra-catheter PRN Mario House MD 10mL at 10/21/196 ??? sodium chloride 0.9% infusion 6 mL/hr intravenous Continuous Gasper Salgado MD 6 mL/hr at10/23/19 0700 6 mL/hr at 10/23/19 0700 ??? sodium chloride 0.9% solution 1,000 mL 1,000 mL intra-catheter Continuous Mario House MD Objective Vitals: 24hr Min/Max: Temp Min: 36.9 ??C (98.4 ??F) Max: 37.2 ??C (99 ??F) Pulse Min: 65 Max: 88 BP Min: 86/41 Max: 114/63 Resp Min: 13 Max: 29 SpO2 Min: 87 % Max: 97 % Most Recent : Vitals: 10/23/19 0800 BP: Pulse: 85 Resp: 24 Temp: SpO2: 91% I/O last 2 completed shifts: In: 2084.6 [P.O.:800; I.V.:1284.6] Out: 1215 [Urine:885; Chest Tube:330] I/O this shift: In: 58.4 [I.V.:58.4] Out: 15 [Urine:15] Physical Exam: General appearance: appears stated age Constitutional: No acute distress Eyes: EOMI, anicteric Cardiovascular: reg rate, reg rhythm Right Radial: palp Respiratory: non-labored breathing Skin: no ulceration GI: Soft, non-tender; non-distended. No pusatile abdominal mass Muskuloskeletal: Extremities wwp Incisions: -right ax incision well approx, mild superficial bruising but no induration or erythema and is soft, no hematoma -sternotomy incision well approx Neuro: Alert and oriented x4, non-focal Lab/Radiology/Diagnostic Review: Laboratory review: Lab results in the last 24 hours: Recent Results (from the past 24 hour(s)) CBC without differential Collection Time: 10/22/19 11:37 AM Result Value Ref Range WBC 15.1 (H) 3.8 - 9.9 K/cumm Hgb 10.1 (L) 11.9 - 15.5 g/dL Hct 29.8 (L) 35.6 - 45.5 % Plt 207 150 - 400 K/cumm MPV 9.7 9.1 - 12.3 fL RBC 3.25 (L) 3.90 - 5.20 M/cumm MCV 91.7 81.3 - 96.4 fL MCH 31.1 27.1 - 33.3 pg MCHC 33.9 32.3 - 35.7 g/dL RDW CV 14.2 11.1 - 14.9 % RDW SD 47.8 35.7 - 48.1 fL NRBC abs 0.00 0.00 - 0.01 K/cumm POCT glucose Collection Time: 10/22/19 11:48 AM Result Value Ref Range Glucose, POC 171 70 - 199 mg/dL POCT glucose Collection Time: 10/22/19 4:10 PM Result Value Ref Range Glucose, POC 154 70 - 199 mg/dL POCT glucose Collection Time: 10/22/19 8:20 PM Result Value Ref Range Glucose, POC 159 70 - 199 mg/dL Lidocaine level Collection Time: 10/22/19 11:50 PM Result Value Ref Range Lidocaine (Xylocaine) 3.8 1.5 - 5.0 mcg/mL CBC without differential Collection Time: 10/22/19 11:50 PM Result Value Ref Range WBC 15.8 (H) 3.8 - 9.9 K/cumm Hgb 9.2 (L) 11.9 - 15.5 g/dL Hct 26.9 (L) 35.6 - 45.5 % Plt 169 150 - 400 K/cumm MPV 9.7 9.1 - 12.3 fL RBC 2.94 (L) 3.90 - 5.20 M/cumm MCV 91.5 81.3 - 96.4 fL MCH 31.3 27.1 - 33.3 pg MCHC 34.2 32.3 - 35.7 g/dL RDW CV 14.6 11.1 - 14.9 % RDW SD 48.4 (H) 35.7 - 48.1 fL NRBC abs 0.00 0.00 - 0.01 K/cumm Basic metabolic panel Collection Time: 10/22/19 11:50 PM Result Value Ref Range Sodium 133 (L) 135 - 145 mmol/L Potassium, pl 4.2 3.3 - 4.9 mmol/L Chloride 104 97 - 110 mmol/L CO2 22 22 - 32 mmol/L Anion gap 7 2 - 15 mmol/L BUN 23 8 - 25 mg/dL Creatinine 1.05 0.60 - 1.10 mg/dL Glucose 177 70 - 199 mg/dL Calcium 8.6 8.5 - 10.3 mg/dL Magnesium Collection Time: 10/22/19 11:50 PM Result Value Ref Range Magnesium 2.1 1.4 - 2.5 mg/dL Phosphorus Collection Time: 10/22/19 11:50 PM Result Value Ref Range Phosphorus, pl 2.5 2.3 - 4.5 mg/dL POCT glucose Collection Time: 10/22/19 11:53 PM Result Value Ref Range Glucose, POC 159 70 - 199 mg/dL Type and screen Collection Time: 10/22/19 11:59 PM Result Value Ref Range Mara, indirect Negative ABO Rh O Positive POCT glucose Collection Time: 10/23/19 7:51 AM Result Value Ref Range Glucose, POC 159 70 - 199 mg/dL Assessment/Plan Suma Saenz is a 73 y.o. female who is POD1 s/p aorto-R axillary, aorto- LCCA, aorto-RCCA bypasses. Doing well overall ASA daily No more plavix bp control, can transition/add orals as needed SBP < 120 oob Reg diet Chest tubes per ct surg High risk reperfusion syndrome, would watch pressures closely and for headaches Appreciate cticu and ct surg care, when she is ready to come out of icu (once not maxed out on cardene gtt) she can come to dr giron service Zeyad Leger MD Fellow, Vascular/Endovascular Surgery Pager: [phone] Cosigned by Nanci Giron MD at 10/23/2019 1:54 PM SAP BUSINESS OBJECTS CONSULTANT BUSINESS OBJECTS CONSULTANT BUSINESS OBJECTS CONSULTANT * Micah Glover MD - 10/23/2019 7:35 AM CST Pain Service Daily Progress Chief Complaint: acute post-operative pain HPI: 73 yo woman with history of 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 A lidocaine infusion was started overnight 10/21-10/22 to aid in pain management. She does not take any narcotics at home for pain management. SUBJECTIVE: Interval History: lidocaine level 3.8. Received 3.76 mg of hydromoprhone via BUSINESS UNIT DIRECTOR in 24h. Reports moderate pain control on current regimen. Denied any parestheaias, tinnitus, perioral numbness, metallic taste. Current Analgesic Regimen Acetaminophen 1000 mg q6h Lidocaine infusion @ 1 mg/kg/hr Hydromorphone BUSINESS UNIT DIRECTOR (0.2 mg, 10 min LO) Scheduled Medications: acetaminophen, 1,000 mg, oral, Q6H REID Or acetaminophen, 1,000 mg, feeding tube, Q6H REID Or acetaminophen, 650 mg, rectal, Q6H REID aspirin, 325 mg, oral, Daily atorvastatin, 80 mg, oral, Nightly buPROPion XL, 150 mg, oral, Daily [Held by Provider] carvediloL, 6.25 mg, oral, BID heparin, 5,000 Units, subcutaneous, Q8H REID insulin lispro, 1-3 Units, subcutaneous, Q4H REID montelukast, 10 mg, oral, Nightly polyethylene glycol, 17 g, oral, Daily senna, 1 tablet, oral, BID sodium chloride 0.9%, 0.5-20 mL, intra-catheter, Q8H REID Continuous Medications: HYDROmorphone, Lactated Ringer's, 30 mL/hr, Last Rate: 20 mL/hr (10/23/19 0700) lidocaine, 0.75 mg/kg/hr ([place]), Last Rate: 0.75 mg/kg/hr (10/23/19 0310) niCARdipine, 0.5-2.5 mcg/kg/min, Last Rate: 2 mcg/kg/min (10/23/19 0600) norepinephrine, 0.01-2 mcg/kg/min, Last Rate: Stopped (10/22/19 1300) sodium chloride 0.9%, 6 mL/hr, Last Rate: 6 mL/hr (10/23/19 0600) sodium chloride 0.9%, 1,000 mL PRN Medications: camphor-menthol ??? dextrose OR dextrose ??? glucagon ??? naloxone ??? ondansetron ??? potassium chloride ??? sodium chloride 0.9% OBJECTIVE: Vitals: 24hr Min/Max: Temp Min: 98.4 ??F (36.9 ??C) Max: 99 ??F (37.2 ??C) Pulse Min: 65 Max: 88 BP Min: 86/41 Max: 114/63 Resp Min: 13 Max: 29 SpO2 Min: 87 % Max: 97 % Most Recent : Vitals: 10/23/19 0800 BP: Pulse: 85 Resp: 24 Temp: SpO2: 91% Physical Exam: General:??Obese female,??laying in bed comfortably Ear/Nose/Throat:??NCAT, nasal cannula in place Lungs:??clear to auscultation bilaterally Chest:??dressings CDI, chest tubes with minimal serosanguinous output Abdomen:??soft non tender non distended Extremities:??warm and well perfused Pulses:??palpable radial pulses Neurologic:??Moves all extremities to command,??A+O x4 Psych: Appropriate mood and affect. Labs/Radiology/Diagnostic Review: Recent Labs Lab Units 10/22/19 2350 WBC K/cumm 15.8* HEMOGLOBIN g/dL 9.2* HEMATOCRIT % 26.9* PLATELETS K/cumm 169 Recent Labs Lab Units 10/23/19 0751 10/22/19 2350 SODIUM mmol/L -- -- 133* POTASSIUM PLASMA mmol/L -- -- 4.2 CHLORIDE mmol/L -- -- 104 CO2 mmol/L -- -- 22 ANIONGAP mmol/L -- -- 7 GLUCOSE mg/dL -- -- 177 POC GLUCOSE MONITOR mg/dL 159 < > -- BUN SERUM mg/dL -- -- 23 CREATININE mg/dL -- -- 1.05 CALCIUM mg/dL -- -- 8.6 < > = values in this interval not displayed. 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 A lidocaine infusion was started overnight 10/21-10/22 to aid in pain management. She does not take any narcotics at home for pain management. 1. Interventions No interventions indicated at this time. 2. Medications -Agree with scheduled acetaminophen. -Recommend continue lidocaine infusion. Please check levels q24h. If plasma levels > 5, please stop the infusion and call the pain pager. -Recommend transition d/c BUSINESS UNIT DIRECTOR and start oxycodone 5-10 mg q3h prn. This plan was discussed with the attending pain physician. Thank you for allowing us to participatein the care of this patient. We will continue to follow. -- Micah Glover MD Resident Physician Department of Anesthesiology [facility] in [place] Cosigned by Mati Leon MD at 10/23/2019 10:08 AM SAP BUSINESS OBJECTS CONSULTANT BUSINESS OBJECTS CONSULTANT BUSINESS OBJECTS CONSULTANT Associated attestation - Mati Leon MD - 10/23/2019 10:08 AM SAP BUSINESS OBJECTS CONSULTANT I have seen and examined the patient on 10/23/19. I agree with the findings and plan of care as documented in the resident's/fellow's note. * Gasper Salgado MD - 10/23/2019 12:[address] ICU Daily Progress Shifts: MD Shift Options: CTI PM 1 Subjective Patient is a 73 y.o. 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 Ramírez and Bree.?? Interval History: - Continues on Nasal cannula, no issues - Stable on nicardipine drip overnight, no pressors for SBP <120 - Re-ordered patient's home miralax and senna - No more hallucinations, pain well controlled on BUSINESS UNIT DIRECTOR + lido drip Objective Medications: Scheduled Meds:acetaminophen, 1,000 mg, oral, Q6H REID Or acetaminophen, 1,000 mg, feeding tube, Q6H REID Or acetaminophen, 650 mg, rectal, Q6H REID aspirin, 325 mg, oral, Daily atorvastatin, 80 mg, oral, Nightly buPROPion XL, 150 mg, oral, Daily [Held by Provider] carvediloL, 6.25 mg, oral, BID heparin, 5,000 Units, subcutaneous, Q8H REID insulin lispro, 1-3 Units, subcutaneous, Q4H REID montelukast, 10 mg, oral, Nightly [START ON 10/23/2019] polyethylene glycol, 17 g, oral, Daily senna, 1 tablet, oral, BID sodium chloride 0.9%, 0.5-20 mL, intra-catheter, Q8H REID Continuous Infusions:HYDROmorphone, Lactated Ringer's, 30 mL/hr, Last Rate: 20 mL/hr (10/22/192099) lidocaine, 0.75 mg/kg/hr ([place]), Last Rate: 0.75 mg/kg/hr (10/22/192099) niCARdipine, 0.5-2.5 mcg/kg/min, Last Rate: 0.5 mcg/kg/min (10/22/192124) norepinephrine, 0.01-2 mcg/kg/min, Last Rate: Stopped (10/22/191299) sodium chloride 0.9%, 6 mL/hr, Last Rate: 6 mL/hr (10/22/192099) sodium chloride 0.9%, 1,000 mL Vitals: Temp: [36.6 ??C (97.9 ??F)-37.2 ??C (99 ??F)] 37.2 ??C (99 ??F) Pulse: [65-86] 84 BP: (86-114)/(40-63) 114/63 Resp: [13-26] 18 SpO2: [89 %-97 %] 95 % Arterial Line BP: (58-176)/(34-61) 133/43 Fluid balance: I/O this shift: In: 111.3 [I.V.:111.3] Out: 190 [Urine:140; Chest Tube:50] Intake/Output Summary (Last 24 hours) at 10/22/20192145 Last data filed at 10/22/20192099 Gross per 24 hour Intake 2339.42 ml Output 1440 ml Net 899.42 ml Vent settings: Hemodynamic parameters: PAP: -- CVP: -- PCWP: -- CO: -- CI: -- SVO2: -- Pacemaker Overdrive Pacing: -- Cardiac Rhythm: Normal sinus rhythm (10/22 2099) Pacer Mode: -- Physical exam: General:??Obese female, laying in bed comfortably Ear/Nose/Throat:??NCAT, nasal cannula in place Lungs:??clear to auscultation bilaterally Chest:??dressings CDI, chest tubes with minimal serosanguinous output Abdomen:??soft non tender non distended Extremities:??warm and well perfused Pulses:??palpable radial pulses Neurologic:??Moves all extremities to command, A+O x4 Psych: Appropriate mood and affect Laboratory data: Recent Labs Lab Units 10/22/19 1137 10/22/19 0124 10/21/19 2220 WBC K/cumm 15.1* 10.3* 10.4* HEMOGLOBIN g/dL 10.1* 10.3* 10.3* HEMATOCRIT % 29.8* 30.2* 30.7* PLATELETS K/cumm 207 154 144* Recent Labs Lab Units 10/22/19 0124 10/21/19 1729 10/20/19 2302 SODIUM mmol/L 139 139 136 POTASSIUM PLASMA mmol/L 4.0 4.3 4.2 CHLORIDE mmol/L 110 113* 103 CO2 mmol/L 21* 21* 21* BUN SERUM mg/dL 19 13 15 CREATININE mg/dL 0.79 0.77 0.83 CALCIUM mg/dL 8.8 8.3* 9.6 Recent Labs Lab Units 10/21/19 1729 10/18/19 0102 PROTIME (PT) sec 15.6* 11.2 INR 1.4* 1.0 APTT sec 27 33 Recent Labs Lab Units 10/21/19 1847 10/21/19 1729 10/21/19 1551 PH ART 7.34* 7.33* 7.27* PCO2 ART mmHg 38 38 -- PO2 ART mmHg 161* 156* -- PO2 ARTERIAL POC mmHg -- -- 286* BASE EXC ART mmol/L -5 -6 -- Radiology/Diagnostic Review CXR: Stable atelectasis bilaterally with no pneumothorax. Assessment/Plan Acute blood loss anemia Assessment & Plan - Hgb 7.1 -> 10.3 after 1U PRBC 10/21 - hgb stable on 10/22 Chronic back pain complicated by acute surgical pain Assessment & Plan - APAP sched, BUSINESS UNIT DIRECTOR 0.2 q10m, lido gtt Vertebrobasilar artery insufficiency Assessment & Plan - S/p aorto to right axillary and aorto to bilateral carotid bypass - Successfully extubated 10/21 P.M., continue q1h neurovasc checks - MAP>65 and SBP<120, off pressors since extubation, on nicardipine gtt At risk for cerebral hyperperfusion, if severe headache have pt sit up, make sure pressure is controlled and call vascular surgical team while ordering head CT - Daily ASA - q1h Neurovascular checks Labile hypertension Assessment & Plan Currently hypotensive but initially hypertensive in OR. Will likely need restarting of his anti-hypertensives once acute post surgical hemodynamics stabilize. - While standing 10/22 afternoon, became hpotensive -> started on levo transiently, sat down and off pressors and back on nicardipine - Currently on nicardipine gtt @ 0.5 on 10/22 P.M. for SBP <120 Cosigned by Michael Marcelo MD at 10/23/2019 11:11 AM SAP BUSINESS OBJECTS CONSULTANT BUSINESS OBJECTS CONSULTANT BUSINESS OBJECTS CONSULTANT Associated attestation - Michael Marcelo MD - 10/23/2019 11:11 AM SAP BUSINESS OBJECTS CONSULTANT Attending Documentation: I have seen and examined this critically ill patient on the day of service. I have reviewed and confirmed the history, physical exam, laboratory and radiologic data with the house staff as documentedin the ICU Resident note. I have reviewed and discussed my treatment plan with the ICU team and other medical/sap bw consultant staff, making frequent assessments and decisions regarding this patient's complex medical care. 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 No further episode of orthostasis Attempt diuresis Encourage IS- Optiflow as needed to maintain Sa02 > 90 Michael Marcelo MD * Zeyad Leger MD - 10/22/2019 7:21 AM CST Vascular Surgery Daily Progress Patient Name/MRN: Suma Saenz [id number] Treatment Team: Vascular Surgery- Attending: Nanci Giron MD Today's Date: 10/22/2019 Room/Bed: [place] [id number] Admit Date: 10/17/2019 Code Status: Full Code Subjective Chief complaint: drop attacks Events Over Last 24 Hours: To OR for aorto-r ax, aorto-r cca, aorto-L cca bypasses Extubated postop Some incisional pain No right arm paresthesias, etc. Tolerating sips of clears Bps have been a bit labile, on cardene gtt NO headaches or dizziness Allergies Allergen Reactions ??? Naproxen Rash ??? Nsaids (Non-Steroidal Anti-Inflammatory Drug) Hives ??? Penicillins Rash ??? Sulfa (Sulfonamide Antibiotics) Rash Current Facility-Administered Medications Medication Dose Route Frequency Provider Last Rate Last Dose ??? acetaminophen (TYLENOL) tablet 1,000 mg 1,000 mg oral Q6H REID House MD 1,000 mg at 10/22/19 0543 Or ??? acetaminophen (TYLENOL) 32 mg/mL oral solution 1,000 mg 1,000 mg feeding tube Q6H REID House MD Or ??? acetaminophen (TYLENOL) suppository 650 mg 650 mg rectal Q6H [facility] Mario House MD ??? aspirin tablet 325 mg 325 mg oral Daily Mario House MD ??? atorvastatin (LIPITOR) tablet 80 mg 80 mg oral Nightly Mario House MD ??? buPROPion XL (WELLBUTRIN XL) 24 hour tablet 150 mg 150 mg oral Daily Mario House MD ??? dextrose (GLUTOSE) 40 % gel 15 g 15 g oral Q15 Min PRN Mario House MD Or ??? dextrose (D10W) 10% bolus 250 mL 250 mL intravenous Q15 Min PRN Mario House MD ??? glucagon injection 1 mg 1 mg intramuscular Q30 Min PRN Mario House MD ??? heparin 5,000 unit/mL injection 5,000 Units 5,000 Units subcutaneous Q8H [facility] Mario House MD ??? HYDROmorphone in 0.9% sodium chloride (DILAUDID) 20 mg/100 mL (0.2 mg/mL) infusion (premix) intravenous Continuous Mario House MD ??? insulin lispro (HumaLOG) injection 1-3 Units 1-3 Units subcutaneous Q4H [facility] Mario House MD ??? Lactated Ringer's (LR) infusion 30 mL/hr intravenous Continuous Gasper Salgado MD 30 mL/hr at 10/22/19 0700 30 mL/hr at 10/22/19 0700 ??? lidocaine in dextrose 5% 2 g/250 mL (8 mg/mL) infusion (premix) 1.5 mg/kg/hr ([place]) intravenous Continuous Gasper Salgado MD 11.55 mL/hr at 10/22/19 07 1.5 mg/kg/hr at 10/22/19 0700 ??? naloxone (NARCAN) 0.4 mg/mL injection 0.04-0.4 mg 0.04-0.4 mg intravenous Q10 Min PRN Mario House MD ??? niCARdipine in 0.9% sodium chloride (CARDENE) 25 mg/50 mL (0.5 mg/mL) infusion (premix) 0.5-2.5mcg/kg/min intravenous Titrated Andry Grant MD 26.55 mL/hr at 10/22/19 0700 2.5 mcg/kg/min at10/22/19 0700 ??? norepinephrine in dextrose 5% (LEVOPHED) 8,000 mcg/250 mL (32 mcg/mL) infusion (premix) 0.01-2 mcg/kg/min intravenous Titrated Mario House MD Stopped at 10/21/19 1930 ??? ondansetron (ZOFRAN) injection 4 mg 4 mg intravenous Q4H PRN Gasper Salgado MD ??? oxyCODONE (ROXICODONE) tablet 10 mg 10 mg oral Q3H PRN Gasper Salgado MD 10 mg at 10/22/19 0428 ??? potassium chloride 20 mEq/50 mL in sterile water (premix) 20 mEq 20 mEq intravenous Q1H PRN Mario House MD ??? sodium chloride 0.9% flush 0.5-20 mL 0.5-20 mL intra-catheter Q8H REID Mario House MD 10 mL at 10/22/19 0539 ??? sodium chloride 0.9% flush 0.5-20 mL 0.5-20 mL intra-catheter PRN Mario House MD 10mL at 10/21/196 ??? sodium chloride 0.9% infusion 6 mL/hr intravenous Continuous Gasper Salgado MD 6 mL/hr at10/22/19 0700 6 mL/hr at 10/22/19 0700 ??? sodium chloride 0.9% solution 1,000 mL 1,000 mL intra-catheter Continuous Mario House MD Objective Vitals: 24hr Min/Max: Temp Min: 36.3 ??C (97.3 ??F) Max: 36.8 ??C (98.2 ??F) Pulse Min: 65 Max: 87 BP Min: 158/55 Max: 206/63 Resp Min: 8 Max: 34 SpO2 Min: 89 % Max: 100 % Most Recent : Vitals: 10/22/19 0700 BP: Pulse: 65 Resp: 25 Temp: SpO2: 93% I/O last 2 completed shifts: In: 3544.5 [P.O.:250; I.V.:1824.5; Blood:350; IV Piggyback:1120] Out: 1680 [Urine:500; Emesis/NG output:50; Blood:750; Chest Tube:380] I/O this shift: In: 74.1 [I.V.:74.1] Out: 30 [Urine:30] Physical Exam: General appearance: appears stated age Constitutional: No acute distress Eyes: EOMI, anicteric Cardiovascular: reg rate, reg rhythm Right Radial: palp Respiratory: non-labored breathing Skin: no ulceration GI: Soft, non-tender; non-distended. No pusatile abdominal mass Muskuloskeletal: Extremities wwp Incisions: -right ax incision well healed, mild superficial bruising but no induration or erythema and is soft, no hematoma -sternotomy incision with dressing, c/d/i Neuro: Alert and oriented x4, non-focal Lab/Radiology/Diagnostic Review: Laboratory review: Lab results in the last 24 hours: Recent Results (from the past 24 hour(s)) POC Blood Gas and Chemistries, Arterial - Collection Time: 10/21/19 2:06 PM Result Value Ref Range pH, Art POC 7.30 (L) 7.35 - 7.45 pCO2, Art POC 43 35 - 45 mmHg pO2, Art POC 191 (H) 83 - 108 mmHg Na, POC 138 135 - 145 mmol/L K, POC 3.9 3.3 - 4.9 mmol/L Cl, POC 108 97 - 110 mmol/L Ionized Ca, POC 4.64 4.50 - 5.10 mg/dL Glucose, POC 162 70 - 199 mg/dL Lactate, POC 0.6 (L) 0.7 - 2.2 mmol/L SO2 (angel) arterial 100 (H) 90 - 95 % Base Excess, POC -5.1 mmol/L HCO3, Art POC 21 20 - 30 mmol/L Hct, POC 33.0 (L) 36.3 - 45.3 % O2 Sat, Art POC (Calc) 100 % Total Hb, POC 11.0 (L) 11.9 - 15.5 g/dL POC Blood Gas and Chemistries, Arterial - Collection Time: 10/21/19 3:51 PM Result Value Ref Range pH, Art POC 7.27 (L) 7.35 - 7.45 pCO2, Art POC 43 35 - 45 mmHg pO2, Art POC 286 (H) 83 - 108 mmHg Na, POC 136 135 - 145 mmol/L K, POC 4.6 3.3 - 4.9 mmol/L Cl, POC 110 97 - 110 mmol/L Ionized Ca, POC 5.92 (H) 4.50 - 5.10 mg/dL Glucose, POC 234 (H) 70 - 199 mg/dL Lactate, POC 1.3 0.7 - 2.2 mmol/L SO2 (angel) arterial 99 (H) 90 - 95 % Base Excess, POC -7.0 mmol/L HCO3, Art POC 20 20 - 30 mmol/L Hct, POC 32.0 (L) 36.3 - 45.3 % O2 Sat, Art POC (Calc) 100 % Total Hb, POC 10.8 (L) 11.9 - 15.5 g/dL POCT glucose Collection Time: 10/21/19 5:07 PM Result Value Ref Range Glucose, POC 218 (H) 70 - 199 mg/dL Basic metabolic panel Collection Time: 10/21/19 5:29 PM Result Value Ref Range Sodium 139 135 - 145 mmol/L Potassium, pl 4.3 3.3 - 4.9 mmol/L Chloride 113 (H) 97 - 110 mmol/L CO2 21 (L) 22 - 32 mmol/L Anion gap 5 2 - 15 mmol/L BUN 13 8 - 25 mg/dL Creatinine 0.77 0.60 - 1.10 mg/dL Glucose 215 (H) 70 - 199 mg/dL Calcium 8.3 (L) 8.5 - 10.3 mg/dL Blood gas, arterial Collection Time: 10/21/19 5:29 PM Result Value Ref Range pH, Art POC 7.33 (L) 7.35 - 7.45 PCO2, Arterial 38 35 - 45 mmHg PO2, Arterial 156 (H) 83 - 108 mmHg HCO3 Art (Calculated) 20 20 - 30 mmol/L BE, art -6 mmol/L O2 Sat Art (Measured) 99 (H) 90 - 95 % CBC without differential Collection Time: 10/21/19 5:29 PM Result Value Ref Range WBC 13.8 (H) 3.8 - 9.9 K/cumm Hgb 7.1 (L) 11.9 - 15.5 g/dL Hct 21.8 (L) 35.6 - 45.5 % Plt 144 (L) 150 - 400 K/cumm MPV 9.5 9.1 - 12.3 fL RBC 2.31 (L) 3.90 - 5.20 M/cumm MCV 94.4 81.3 - 96.4 fL MCH 30.7 27.1 - 33.3 pg MCHC 32.6 32.3 - 35.7 g/dL RDW CV 13.8 11.1 - 14.9 % RDW SD 47.0 35.7 - 48.1 fL NRBC abs 0.00 0.00 - 0.01 K/cumm Protime-INR Collection Time: 10/21/19 5:29 PM Result Value Ref Range PT 15.6 (H) 8.6 - 13.0 sec INR 1.4 (H) 0.8 - 1.2 aPTT Collection Time: 10/21/19 5:29 PM Result Value Ref Range aPTT 27 25 - 37 sec Lactate, whole blood Collection Time: 10/21/19 5:29 PM Result Value Ref Range Lactate, bld 1.7 0.7 - 2.0 mmol/L Prepare RBC: 1 Units Collection Time: 10/21/19 6:34 PM Result Value Ref Range Product code [id number] Unit Number [id number] Product Blood Type OPOS Dispense Status PRESUMED TRANSFUSED Potassium, whole blood Collection Time: 10/21/19 6:47 PM Result Value Ref Range Potassium, bld 4.3 3.3 - 4.9 mmol/L Blood gas, arterial Collection Time: 10/21/19 6:47 PM Result Value Ref Range pH, Art POC 7.34 (L) 7.35 - 7.45 PCO2, Arterial 38 35 - 45 mmHg PO2, Arterial 161 (H) 83 - 108 mmHg HCO3 Art (Calculated) 21 20 - 30 mmol/L BE, art -5 mmol/L O2 Sat Art (Measured) 99 (H) 90 - 95 % POCT glucose Collection Time: 10/21/19 8:24 PM Result Value Ref Range Glucose, POC 158 70 - 199 mg/dL CBC without differential Collection Time: 10/21/19 10:20 PM Result Value Ref Range WBC 10.4 (H) 3.8 - 9.9 K/cumm Hgb 10.3 (L) 11.9 - 15.5 g/dL Hct 30.7 (L) 35.6 - 45.5 % Plt 144 (L) 150 - 400 K/cumm MPV 9.5 9.1 - 12.3 fL RBC 3.32 (L) 3.90 - 5.20 M/cumm MCV 92.5 81.3 - 96.4 fL MCH 31.0 27.1 - 33.3 pg MCHC 33.6 32.3 - 35.7 g/dL RDW CV 13.7 11.1 - 14.9 % RDW SD 46.4 35.7 - 48.1 fL NRBC abs 0.00 0.00 - 0.01 K/cumm POCT glucose Collection Time: 10/22/19 12:10 AM Result Value Ref Range Glucose, POC 139 70 - 199 mg/dL CBC without differential Collection Time: 10/22/19 1:24 AM Result Value Ref Range WBC 10.3 (H) 3.8 - 9.9 K/cumm Hgb 10.3 (L) 11.9 - 15.5 g/dL Hct 30.2 (L) 35.6 - 45.5 % Plt 154 150 - 400 K/cumm MPV 9.4 9.1 - 12.3 fL RBC 3.33 (L) 3.90 - 5.20 M/cumm MCV 90.7 81.3 - 96.4 fL MCH 30.9 27.1 - 33.3 pg MCHC 34.1 32.3 - 35.7 g/dL RDW CV 13.9 11.1 - 14.9 % RDW SD 45.5 35.7 - 48.1 fL NRBC abs 0.00 0.00 - 0.01 K/cumm Magnesium Collection Time: 10/22/19 1:24 AM Result Value Ref Range Magnesium 1.9 1.4 - 2.5 mg/dL Phosphorus Collection Time: 10/22/19 1:24 AM Result Value Ref Range Phosphorus, pl 3.4 2.3 - 4.5 mg/dL Basic metabolic panel Collection Time: 10/22/19 1:24 AM Result Value Ref Range Sodium 139 135 - 145 mmol/L Potassium, pl 4.0 3.3 - 4.9 mmol/L Chloride 110 97 - 110 mmol/L CO2 21 (L) 22 - 32 mmol/L Anion gap 8 2 - 15 mmol/L BUN 19 8 - 25 mg/dL Creatinine 0.79 0.60 - 1.10 mg/dL Glucose 156 70 - 199 mg/dL Calcium 8.8 8.5 - 10.3 mg/dL POCT glucose Collection Time: 10/22/19 3:41 AM Result Value Ref Range Glucose, POC 116 70 - 199 mg/dL Assessment/Plan Suma Saenz is a 73 y.o. female who is POD1 s/p aorto-R axillary, aorto- LCCA, aorto-RCCA bypasses. Doing well overall ASA daily Do not think she needs plavix anymore, will d/w dr giron oob Reg diet Chest tubes per ct surg High risk reperfusion syndrome, would watch pressures closely and for headaches SBP < [address] surg care Zeyda Leger MD Fellow, Vascular/Endovascular Surgery Pager: [phone] Cosigned by Nanci Giron MD at 10/23/2019 1:54 PM SAP BUSINESS OBJECTS CONSULTANT BUSINESS OBJECTS CONSULTANT BUSINESS OBJECTS CONSULTANT * Gasper Salgado MD - 10/22/2019 12:[address] ICU Daily Progress Shifts: MD Shift Options: 8300 PM 1 Subjective Patient is a 73 y.o. 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 Ramírez and Bree. Interval History: Successfully extubated to nasal cannula early in the evening. Post extubation, patient off all pressors and in pain + hypertensive. Started on nicardipine drip for HTN, and APAP q6h sched, oxy 10 q3h, lidocaine gtt, and dilaudid for breakthrough pain. SBP goal <120 due to concern for hyperperfusion syndrome. Patient denies any headache and endorses right shoulder and neck pain, which is more intense but similar in character to her chronic neck pain. Objective Medications: Scheduled Meds:acetaminophen, 1,000 mg, oral, Q6H REID Or acetaminophen, 1,000 mg, feeding tube, Q6H REID Or acetaminophen, 650 mg, rectal, Q6H REID aspirin, 325 mg, oral, Daily insulin lispro, 1-3 Units, subcutaneous, Q4H REID sodium chloride 0.9%, 0.5-20 mL, intra-catheter, Q8H REID Continuous Infusions:lidocaine, 1.5 mg/kg/hr ([place]) niCARdipine, 0.5-2.5 mcg/kg/min, Last Rate: 2.5 mcg/kg/min (10/22/19) norepinephrine, 0.01-2 mcg/kg/min, Last Rate: Stopped (10/21/191929) sodium chloride 0.9%, 1,000 mL Vitals: Temp: [36.3 ??C (97.3 ??F)-36.8 ??C (98.2 ??F)] 36.8 ??C (98.2 ??F) Pulse: [65-87] 86 BP: (158-206)/(55-65) 206/63 Resp: [8-34] 21 SpO2: [89 %-100 %] 93 % Arterial Line BP: (106-176)/(42-62) 149/47 FiO2 (%): [40 %] 40 % Fluid balance: I/O this shift: In: 840.6 [P.O.:100; I.V.:320.6; Blood:350; IV Piggyback:70] Out: 415 [Urine:185; Emesis/NG output:50; Chest Tube:180] Intake/Output Summary (Last 24 hours) at 10/22/2019 0050 Last data filed at 10/22/2019 0000 Gross per 24 hour Intake 3198.9 ml Output 1480 ml Net 1718.9 ml Vent settings: Adult Vent Mode: Pressure support Ventilation FiO2 (%): 40 % Pressure Support (cm H2O): 10 cm H20 (10/21 1811-10/21 1929) Hemodynamic parameters: PAP: -- CVP: -- PCWP: -- CO: -- CI: -- SVO2: -- Pacemaker Overdrive Pacing: -- Cardiac Rhythm: Normal sinus rhythm (10/22) Pacer Mode: -- Physical exam: General: Obese female, towel on her forehead and towel behind neck Ear/Nose/Throat: NCAT, nasal cannula in place Lungs: clear to auscultation bilaterally Chest: dressings CDI, chest tubes with minimal serosanguinous output Abdomen: soft non tender non distended Extremities: warm and well perfused Pulses: palpable radial pulses Neurologic: Moves all extremities to command, A+O x4 Psych: Appropriate mood and affect Laboratory data: Recent Labs Lab Units 10/21/19 2220 10/21/19 1729 10/21/19 1551 10/20/19 2302 WBC K/cumm 10.4* 13.8* -- -- 5.9 HEMOGLOBIN, POC g/dL -- -- 10.8* < > -- HEMOGLOBIN g/dL 10.3* 7.1* -- -- 12.4 HEMATOCRIT % 30.7* 21.8* -- -- 38.0 HEMATOCRIT POC % -- -- 32.0* < > -- PLATELETS K/cumm 144* 144* -- -- 231 < > = values in this interval not displayed. Recent Labs Lab Units 10/21/19172810/20/19 2302 10/20/19 0036 SODIUM mmol/L 139 136 138 POTASSIUM PLASMA mmol/L 4.3 4.2 4.0 CHLORIDE mmol/L 113* 103 105 CO2 mmol/L 21* 21* 24 BUN SERUM mg/dL 13 15 19 CREATININE mg/dL 0.77 0.83 0.85 CALCIUM mg/dL 8.3* 9.6 9.0 Recent Labs Lab Units 10/21/19 17210/18/19 0102 PROTIME (PT) sec 15.6* 11.2 INR 1.4* 1.0 APTT sec 27 33 Recent Labs Lab Units 10/21/19 1847 10/21/19 17210/21/19 1551 PH ART 7.34* 7.33* 7.27* PCO2 ART mmHg 38 38 -- PO2 ART mmHg 161* 156* -- PO2 ARTERIAL POC mmHg -- -- 286* BASE EXC ART mmol/L -5 -6 -- Assessment/Plan Acute blood loss anemia Assessment & Plan - Hgb 7.1 -> 10.3 after 1U PRBC Chronic back pain complicated by acute surgical pain Assessment & Plan - APAP sched, 10 oxy q3h, dilaudid breakthrough pain, lido gtt Vertebrobasilar artery insufficiency Assessment & Plan - S/p aorto to right axillary and aorto to bilateral carotid bypass - Successfully extubated 2/14 P.M., continue q1h neurovasc checks - MAP>65 and SBP<120, off pressors since extubation, on nicardipine gtt At risk for cerebral hyperperfusion, if severe headache have pt sit up, make sure pressure is controlled and call vascular surgical team while ordering head CT - Daily ASA - q1h Neurovascular checks Labile hypertension Assessment & Plan Currently hypotensive but initially hypertensive in OR. Will likely need restarting of his anti-hypertensives once acute post surgical hemodynamics stabilize. - Currently on nicardipine gtt @ 2.5 on 10/22 A.M. for SBP <120 Cosigned by Michael Marcelo MD at 10/22/2019 12:06 PM SAP BUSINESS OBJECTS CONSULTANT BUSINESS OBJECTS CONSULTANT BUSINESS OBJECTS CONSULTANT Associated attestation - Michael Marcelo MD - 10/22/2019 12:06 PM SAP BUSINESS OBJECTS CONSULTANT Attending Documentation: I have seen and examined this critically ill patient on the day of service. I have reviewed and confirmed the history, physical exam, laboratory and radiologic data with the house staff as documentedin the ICU Resident note. I have reviewed and discussed my treatment plan with the ICU team and other medical/sap bw consultant staff, making frequent assessments and decisions regarding this patient's complex medical care. 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 Chronic back pain complicated by acute surgical pain Acute blood loss anemia Attending Assessment/Plan: S/p aorto to right axillary and aorto to bilateral carotid bypass - Successfully extubated 10/21 P.M., continue q1h neurovasc checks - MAP>65 and SBP<120, off pressors since extubation, on nicardipine gtt At risk for cerebral hyperperfusion- monitor Episode of orthostasis this Am_ hold nicardipine- once pressures stabilize will start beta blockersand diuresis Michael Marcelo MD * Annemarie Lynne NP - 10/20/2019 9:37 AM CST Vascular Surgery Daily Progress Patient Name/MRN: Suma Saenz [id number] Treatment Team: Vascular Surgery- Pager: [phone] Attending: Nanci Giron MD Today's Date: 10/20/2019 Room/Bed: [id number] Admit Date: 10/17/2019 Code Status: Full Code Subjective Chief complaint: Syncopal episode Events During This Hospitalization: 10/17 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 10/18 C with clean coronaries. 10/19: Rt groin PSA duplex negative for PSA, negative for hematoma. Events Over Last 24 Hours: Surgery scheduled for tomorrow. Allergies Allergen Reactions ??? Naproxen Rash ??? Nsaids (Non-Steroidal Anti-Inflammatory Drug) Hives ??? Penicillins Rash ??? Sulfa (Sulfonamide Antibiotics) Rash Current Facility-Administered Medications Medication Dose Route Frequency Provider Last Rate Last Dose ??? acetaminophen (TYLENOL) tablet 650 mg 650 mg oral Q4H PRN Zack Overton MD PhD 650 mg at 10/19/19 193 ??? aspirin tablet 325 mg 325 mg oral Daily Zack Overton MD PhD 325 mg at 10/19/19926 ??? atorvastatin (LIPITOR) tablet 80 mg 80 mg oral Nightly Zack Overton MD PhD 80 mg at 10/19/192146 ??? buPROPion XL (WELLBUTRIN XL) 24 hour tablet 150 mg 150 mg oral Daily Zack Overton MD [id number] mg at 10/19/19926 ??? carvediloL (COREG) tablet 12.5 mg 12.5 mg oral BID Annemarie Lynne NP 12.5 mg at 10/19/192146 ??? cetirizine (ZyrTEC) tablet 10 mg 10 mg oral Nightly Zack Overton MD PhD 10 mg at 10/19/192146 ??? doxycycline monohydrate (ADOXA) tablet 50 mg 50 mg oral BID Zack Overton MD PhD 50 mg at10/19/192146 ??? heparin 5,000 unit/mL injection 5,000 Units 5,000 Units subcutaneous Q8H [facility] Annemarie Lynne, NAKIA 5,000 Units at 10/20/19 0029 ??? hydroCHLOROthiazide (HYDRODIURIL) tablet 25 mg 25 mg oral Daily Zack Overton MD PhD 25 mg at 10/19/19 0927 ??? labetalol (NORMODYNE,TRANDATE) injection 10 mg 10 mg intravenous Q4H PRN Annemarie Lynne NP ??? montelukast (SINGULAIR) tablet 10 mg 10 mg oral Nightly Zack Overton MD PhD 10 mg at 10/19/19 2147 ??? polyethylene glycol (MIRALAX) packet 17 g 17 g oral Daily Annemarie Lynne NP 17 g at 10/19/19 1743 ??? senna-docusate (PERICOLACE) 8.6-50 mg per tablet 2 tablet 2 tablet oral BID PRN Zack Overton MD PhD 2 tablet at 10/19/19 1225 ??? sodium chloride 0.9% flush 0.5-20 mL 0.5-20 mL intra-catheter Q8H [facility] Zack Overton MD PhD 10 mL at 10/19/19 0513 ??? sodium chloride 0.9% flush 0.5-20 mL 0.5-20 mL intra-catheter PRN Zack Overton MD PhD Objective Vitals: 24hr Min/Max: Temp Min: 36.5 ??C (97.7 ??F) Max: 36.7 ??C (98.1 ??F) Pulse Min: 63 Max: 67 BP Min: 155/49 Max: 184/59 Resp Min: 16 Max: 18 SpO2 Min: 92 % Max: 99 % Most Recent : Vitals: 10/20/19 0705 BP: (!) 178/46 Pulse: 64 Resp: 18 Temp: 36.6 ??C (97.9 ??F) SpO2: 96% I/O last 2 completed shifts: In: 1210 [P.O.:1210] Out: 0 No intake/output data recorded. Physical Exam: GENERAL: Awake, alert, oriented x 4; no acute distress. HEENT: Eyes: Pupils equal, round, reactive to light and accommodation. RESPIRATORY: Good respiratory effort. Clear to auscultation bilaterally anterior and posterior. Chest: Symmetrical rise and fall. Symmetrical expansion with respirations. CARDIOVASCULAR: Regular rate and rhythm. GASTROINTESTINAL: No tenderness or mass. Bowel sounds equal times four quadrants. Abdomen is nondistended. MUSCULOSKELETAL: Range of motion adequate. Strength and tone equal bilaterally, stable. INCISIONS: Right groin from cardiac cath with ecchymosis. PULSES: Left radial pulse palpable. Right radial signal per doppler. Right DP palpable. NEUROLOGICAL: Cranial nerves II-XII grossly intact. Sensation intact. Lab/Radiology/Diagnostic Review: Laboratory review: Lab results in the last 24 hours: Recent Results (from the past 24 hour(s)) Basic metabolic panel Collection Time: 10/20/19 12:36 AM Result Value Ref Range Sodium 138 135 - 145 mmol/L Potassium, pl 4.0 3.3 - 4.9 mmol/L Chloride 105 97 - 110 mmol/L CO2 24 22 - 32 mmol/L Anion gap 9 2 - 15 mmol/L BUN 19 8 - 25 mg/dL Creatinine 0.85 0.60 - 1.10 mg/dL Glucose 111 70 - 199 mg/dL Calcium 9.0 8.5 - 10.3 mg/dL CBC with auto differential Collection Time: 10/20/19 12:36 AM Result Value Ref Range WBC 6.6 3.8 - 9.9 K/cumm Hgb 12.0 11.9 - 15.5 g/dL Hct 35.7 35.6 - 45.5 % Plt 213 150 - 400 K/cumm MPV 9.6 9.1 - 12.3 fL RBC 3.86 (L) 3.90 - 5.20 M/cumm MCV 92.5 81.3 - 96.4 fL MCH 31.1 27.1 - 33.3 pg MCHC 33.6 32.3 - 35.7 g/dL RDW CV 14.0 11.1 - 14.9 % RDW SD 47.6 35.7 - 48.1 fL NRBC abs 0.00 0.00 - 0.01 K/cumm Differential, auto Collection Time: 10/20/19 12:36 AM Result Value Ref Range Neutrophil abs 3.2 1.7 - 6.5 K/cumm Imm gran abs 0.0 0.0 - 0.1 K/cumm Lymphocyte abs 2.6 0.8 - 3.3 K/cumm Monocyte abs 0.6 0.2 - 0.8 K/cumm Eosinophil abs 0.1 0.0 - 0.5 K/cumm Basophil abs 0.0 0.0 - 0.1 K/cumm Neutrophil pct 48.3 % Imm gran pct 0.3 % Lymphocyte pct 39.5 % Monocyte pct 9.9 % Eosinophil pct 1.4 % Basophil pct 0.6 % Assessment/Plan Active Problems: 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 - continue home ASA, holding home Plavix - MRA obtained to evaluate occlusion and cerebrovascular system+ OR planning. - OR 10/21 with [facility]. 4u PRBC, 4u FFP, and 2u Platelets on hold. # Right groin ecchymosis: - 10/19 Right groin ultrasound negative for PSA and hematoma. ?? #Syncopal episodes - Fall precautions - Keep on telemetry - Q4H neurologic checks ?? #Benign hypertension - Allow permissive hypertension, ideally 160 to 180. - BP control improved. - Continue Coreg, increase as needed. - PRN labetalol for SBP over 200. Cosigned by Nanci Giron MD at 10/20/2019 10:03 AM SAP BUSINESS OBJECTS CONSULTANT BUSINESS OBJECTS CONSULTANT BUSINESS OBJECTS CONSULTANT Associated attestation - Nanci Giron MD - 10/20/2019 10:03 AM SAP BUSINESS OBJECTS CONSULTANT I have seen and examined the patient on 10/20/19. I agree with the findings and plan of care with the following modifications:She remains stable. OR scheduled for tomorrow with Dr. Ramírez... * Annemarie Lynne NP - 10/19/2019 9:37 AM CST Vascular Surgery Daily Progress Patient Name/MRN: Suma Saenz [id number] Treatment Team: Vascular Surgery- Pager: [phone] Attending: Nanci Giron MD Today's Date: 10/19/2019 Room/Bed: [id number] Admit Date: 10/17/2019 Code Status: Full Code Subjective Chief complaint: Syncopal episode Events During This Hospitalization: 10/17 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 10/18 [facility] with clean coronaries. Events Over Last 24 Hours: Right groin with bruising and more prominent femoral pulse than left. Allergies Allergen Reactions ??? Naproxen Rash ??? Nsaids (Non-Steroidal Anti-Inflammatory Drug) Hives ??? Penicillins Rash ??? Sulfa (Sulfonamide Antibiotics) Rash Current Facility-Administered Medications Medication Dose Route Frequency Provider Last Rate Last Dose ??? acetaminophen (TYLENOL) tablet 650 mg 650 mg oral Q4H PRN Zack Overton MD PhD 650 mg at 10/19/19 0016 ??? aspirin tablet 325 mg 325 mg oral Daily Zack Overton MD PhD 325 mg at 10/19/19926 ??? atorvastatin (LIPITOR) tablet 80 mg 80 mg oral Nightly Zack Overton MD PhD 80 mg at 10/18/192214 ??? buPROPion XL (WELLBUTRIN XL) 24 hour tablet 150 mg 150 mg oral Daily Zack Overton MD [id number] mg at 10/19/19926 ??? carvediloL (COREG) tablet 12.5 mg 12.5 mg oral BID Annemarie Lynne NP 12.5 mg at 10/19/19926 ??? cetirizine (ZyrTEC) tablet 10 mg 10 mg oral Nightly Zack Overton MD PhD 10 mg at 10/18/192214 ??? doxycycline monohydrate (ADOXA) tablet 50 mg 50 mg oral BID Zack Overton MD PhD 50 mg at10/19/19926 ??? heparin 5,000 unit/mL injection 5,000 Units 5,000 Units subcutaneous Q8H [facility] Zack Overton MD PhD 5,000 Units at 10/19/19926 ??? hydroCHLOROthiazide (HYDRODIURIL) tablet 25 mg 25 mg oral Daily Zack Overton MD PhD 25 mg at 10/19/19926 ??? labetalol (NORMODYNE,TRANDATE) injection 10 mg 10 mg intravenous Q4H PRN Annemarie Lynne NP ??? Lactated Ringer's (LR) infusion 50 mL/hr intravenous Continuous Zack Overton MD PhD Stopped at 10/18/191807 ??? montelukast (SINGULAIR) tablet 10 mg 10 mg oral Nightly Zack Overton MD PhD 10 mg at 10/18/192214 ??? senna-docusate (PERICOLACE) 8.6-50 mg per tablet 2 tablet 2 tablet oral BID PRN Zack Overton MD PhD 2 tablet at 10/18/19 0829 ??? sodium chloride 0.9% flush 0.5-20 mL 0.5-20 mL intra-catheter Q8H REID Zack Overton MD PhD 10 mL at 10/19/19 0513 ??? sodium chloride 0.9% flush 0.5-20 mL 0.5-20 mL intra-catheter PRN Zack Overton MD PhD Objective Vitals: 24hr Min/Max: Temp Min: 36.4 ??C (97.5 ??F) Max: 36.8 ??C (98.2 ??F) Pulse Min: 53 Max: 74 BP Min: 130/47 Max: 205/81 Resp Min: 10 Max: 35 SpO2 Min: 93 % Max: 98 % Most Recent : Vitals: 10/19/19 0713 BP: 155/56 Pulse: 57 Resp: 18 Temp: 36.6 ??C (97.9 ??F) SpO2: 93% I/O last 2 completed shifts: In: 806.7 [P.O.:480; I.V.:326.7] Out: 1500 [Urine:1500] No intake/output data recorded. Physical Exam: GENERAL: Awake, alert, oriented x 4; no acute distress. HEENT: Eyes: Pupils equal, round, reactive to light and accommodation. RESPIRATORY: Good respiratory effort. Clear to auscultation bilaterally anterior and posterior. Chest: Symmetrical rise and fall. Symmetrical expansion with respirations. CARDIOVASCULAR: Regular rate and rhythm. GASTROINTESTINAL: No tenderness or mass. Bowel sounds equal times four quadrants. Abdomen is nondistended. MUSCULOSKELETAL: Range of motion adequate. Strength and tone equal bilaterally, stable. INCISIONS: Right groin from cardiac cath with ecchymosis. PULSES: Left radial pulse palpable. Right radial signal per doppler. Right DP palpable. NEUROLOGICAL: Cranial nerves II-XII grossly intact. Sensation intact. Lab/Radiology/Diagnostic Review: Laboratory review: Lab results in the last 24 hours: Recent Results (from the past 24 hour(s)) CBC without differential Collection Time: 10/18/19 10:37 AM Result Value Ref Range WBC 4.7 3.8 - 9.9 K/cumm Hgb 12.0 11.9 - 15.5 g/dL Hct 36.1 35.6 - 45.5 % Plt 222 150 - 400 K/cumm MPV 9.6 9.1 - 12.3 fL RBC 3.83 (L) 3.90 - 5.20 M/cumm MCV 94.3 81.3 - 96.4 fL MCH 31.3 27.1 - 33.3 pg MCHC 33.2 32.3 - 35.7 g/dL RDW CV 13.7 11.1 - 14.9 % RDW SD 46.8 35.7 - 48.1 fL NRBC abs 0.00 0.00 - 0.01 K/cumm Basic metabolic panel Collection Time: 10/19/19 12:13 AM Result Value Ref Range Sodium 138 135 - 145 mmol/L Potassium, pl 4.0 3.3 - 4.9 mmol/L Chloride 105 97 - 110 mmol/L CO2 24 22 - 32 mmol/L Anion gap 9 2 - 15 mmol/L BUN 18 8 - 25 mg/dL Creatinine 0.89 0.60 - 1.10 mg/dL Glucose 129 70 - 199 mg/dL Calcium 8.6 8.5 - 10.3 mg/dL CBC with auto differential Collection Time: 10/19/19 12:13 AM Result Value Ref Range WBC 7.4 3.8 - 9.9 K/cumm Hgb 12.1 11.9 - 15.5 g/dL Hct 35.8 35.6 - 45.5 % Plt 226 150 - 400 K/cumm MPV 9.5 9.1 - 12.3 fL RBC 3.85 (L) 3.90 - 5.20 M/cumm MCV 93.0 81.3 - 96.4 fL MCH 31.4 27.1 - 33.3 pg MCHC 33.8 32.3 - 35.7 g/dL RDW CV 13.8 11.1 - 14.9 % RDW SD 47.0 35.7 - 48.1 fL NRBC abs 0.00 0.00 - 0.01 K/cumm Differential, auto Collection Time: 10/19/19 12:13 AM Result Value Ref Range Neutrophil abs 4.3 1.7 - 6.5 K/cumm Imm gran abs 0.0 0.0 - 0.1 K/cumm Lymphocyte abs 2.4 0.8 - 3.3 K/cumm Monocyte abs 0.6 0.2 - 0.8 K/cumm Eosinophil abs 0.1 0.0 - 0.5 K/cumm Basophil abs 0.0 0.0 - 0.1 K/cumm Neutrophil pct 58.0 % Imm gran pct 0.3 % Lymphocyte pct 32.5 % Monocyte pct 7.6 % Eosinophil pct 1.1 % Basophil pct 0.5 % Assessment/Plan Active Problems: 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 - continue home ASA, holding home Plavix - MRA obtained to evaluate occlusion and cerebrovascular system+ OR planning. - Dr. Ramírez and Dr. Giron discussing OR timing. # Right groin ecchymosis: - Concern for PSA. - Right groin ultrasound. ?? #Syncopal episodes - Fall precautions - Keep on telemetry - Q4H neurologic checks ?? #Benign hypertension - Allow permissive hypertension, ideally 160 to 180. - Most of day yesterday in 190's to max of 205. - Stop atenolol and replace with Coreg, increase as needed. - PRN labetalol for SBP over 200. Cosigned by Nanci Giron MD at 10/20/2019 10:02 AM SAP BUSINESS OBJECTS CONSULTANT BUSINESS OBJECTS CONSULTANT BUSINESS OBJECTS CONSULTANT Associated attestation - Nanci Giron MD - 10/20/2019 10:02 AM SAP BUSINESS OBJECTS CONSULTANT I have seen and examined the patient on 10/19/2019. I agree with the findings and plan of care with the following modifications:No further symptoms today. Her left heart catheterization did not show any significant coronary atherosclerosis. MR angiogram has been completed with consistent findings from her prior CT angiogram. The risks and benefits of the proposed surgical intervention have been reviewed with her in detail. The risks discussed included , stroke, cranial nerve injury, myocardial infarction, bleeding, infection, failure to relieve symptoms, and other potential issues. She und erstands these risks and wishes to proceed.. * Annemarie Lynne NP - 10/18/2019 3:53 PM CST Vascular Surgery Daily Progress Patient Name/MRN: Suma Saenz [id number] Treatment Team: Vascular Surgery- Pager: [phone] Attending: Nanci Giron MD Today's Date: 10/18/2019 Room/Bed: [id number] Admit Date: 10/17/2019 Code Status: Full Code Subjective Chief complaint: Syncopal episode Events During This Hospitalization: 10/17 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 Events Over Last 24 Hours: Admit to vascular. Clean left heart cath. Allergies Allergen Reactions ??? Naproxen Rash ??? Nsaids (Non-Steroidal Anti-Inflammatory Drug) Hives ??? Penicillins Rash ??? Sulfa (Sulfonamide Antibiotics) Rash Current Facility-Administered Medications Medication Dose Route Frequency Provider Last Rate Last Dose ??? acetaminophen (TYLENOL) tablet 650 mg 650 mg oral Q4H PRN Zack Overton MD PhD ??? aspirin tablet 325 mg 325 mg oral Daily Zack Overton MD PhD 325 mg at 10/18/19 0828 ??? atenoloL (TENORMIN) tablet 50 mg 50 mg oral Daily Zack Overton MD PhD 50 mg at 10/18/19827 ??? atorvastatin (LIPITOR) tablet 80 mg 80 mg oral Nightly Zack Overton MD PhD 80 mg at 10/18/19 0124 ??? buPROPion XL (WELLBUTRIN XL) 24 hour tablet 150 mg 150 mg oral Daily Zack Overton MD [id number] mg at 10/18/19828 ??? cetirizine (ZyrTEC) tablet 10 mg 10 mg oral Nightly Zack Overton MD PhD ??? doxycycline monohydrate (ADOXA) tablet 50 mg 50 mg oral BID Zack Overton MD PhD 50 mg at10/18/19827 ??? heparin 5,000 unit/mL injection 5,000 Units 5,000 Units subcutaneous Q8H [facility] Zack Overton MD PhD Stopped at 10/18/19828 ??? hydroCHLOROthiazide (HYDRODIURIL) tablet 25 mg 25 mg oral Daily Zack Overton MD PhD 25 mg at 10/18/19828 ??? labetalol (NORMODYNE,TRANDATE) injection 10 mg 10 mg intravenous Q4H PRN Annemarie Lynne NP ??? Lactated Ringer's (LR) infusion 50 mL/hr intravenous Continuous Zack Overton MD PhD 50 mL/hr at 10/18/19 1428 50 mL/hr at 10/18/19 1428 ??? montelukast (SINGULAIR) tablet 10 mg 10 mg oral Nightly Zack Overton MD PhD ??? senna-docusate (PERICOLACE) 8.6-50 mg per tablet 2 tablet 2 tablet oral BID PRN Zack Overton MD PhD 2 tablet at 10/18/19828 ??? sodium chloride 0.9% flush 0.5-20 mL 0.5-20 mL intra-catheter Q8H REID Zack Overton MD PhD 10 mL at 10/18/19 0112 ??? sodium chloride 0.9% flush 0.5-20 mL 0.5-20 mL intra-catheter PRN Zack Overton MD PhD ??? sodium chloride 0.9% infusion 125 mL/hr intravenous Continuous Zack Overton MD PhD 125 mL/hr at 10/18/19 1428 125 mL/hr at 10/18/19 1428 Objective Vitals: 24hr Min/Max: Temp Min: 36 ??C (96.8 ??F) Max: 36.8 ??C (98.2 ??F) Pulse Min: 53 Max: 70 BP Min: 136/57 Max: 209/61 Resp Min: 10 Max: 35 SpO2 Min: 92 % Max: 99 % Most Recent : Vitals: 10/18/19 1500 BP: (!) 181/59 Pulse: 56 Resp: 15 Temp: 36.4 ??C (97.5 ??F) SpO2: 97% I/O last 2 completed shifts: In: 427.5 [I.V.:167.5; IV Piggyback:260] Out: - I/O this shift: In: 170 [I.V.:170] Out: 900 [Urine:900] Physical Exam: GENERAL: Awake, alert, oriented x 4; no acute distress. HEENT: Eyes: Pupils equal, round, reactive to light and accommodation. RESPIRATORY: Good respiratory effort. Clear to auscultation bilaterally anterior and posterior. Chest: Symmetrical rise and fall. Symmetrical expansion with respirations. CARDIOVASCULAR: Regular rate and rhythm. GASTROINTESTINAL: No tenderness or mass. Bowel sounds equal times four quadrants. Abdomen is nondistended. MUSCULOSKELETAL: Range of motion adequate. Strength and tone equal bilaterally, stable. PULSES: Left radial pulse palpable. Right radial signal per doppler. NEUROLOGICAL: Cranial nerves II-XII grossly intact. Sensation intact. Lab/Radiology/Diagnostic Review: Laboratory review: Lab results in the last 24 hours: Recent Results (from the past 24 hour(s)) ECG 12 lead Collection Time: 10/18/19 12:33 AM Result Value Ref Range Ventricular Rate EKG/Min 61 BPM Atrial Rate 61 BPM SC-Interval (MSEC) 178 ms QRS-Interval (MSEC) 108 ms QT-Interval (MSEC) 456 ms QTc 459 ms P Huggins 51 degrees R Huggins 12 degrees T Huggins 16 degrees Diagnosis Normal sinus rhythm Minimal voltage criteria for LVH, may be normal variant Nonspecific ST abnormality Abnormal ECG When compared with ECG of 03-APR-2016 00:04, No significant change was found Confirmed by PAT CORRIGAN M.D ([id number]) on 10/18/2019 12:40:42 PM CBC without differential Collection Time: 10/18/19 1:02 AM Result Value Ref Range WBC 6.6 3.8 - 9.9 K/cumm Hgb 12.4 11.9 - 15.5 g/dL Hct 36.6 35.6 - 45.5 % Plt 230 150 - 400 K/cumm MPV 9.3 9.1 - 12.3 fL RBC 3.98 3.90 - 5.20 M/cumm MCV 92.0 81.3 - 96.4 fL MCH 31.2 27.1 - 33.3 pg MCHC 33.9 32.3 - 35.7 g/dL RDW CV 13.5 11.1 - 14.9 % RDW SD 45.5 35.7 - 48.1 fL NRBC abs 0.00 0.00 - 0.01 K/cumm Basic metabolic panel Collection Time: 10/18/19 1:02 AM Result Value Ref Range Sodium 139 135 - 145 mmol/L Potassium, pl 3.5 3.3 - 4.9 mmol/L Chloride 104 97 - 110 mmol/L CO2 27 22 - 32 mmol/L Anion gap 8 2 - 15 mmol/L BUN 20 8 - 25 mg/dL Creatinine 0.91 0.60 - 1.10 mg/dL Glucose 88 70 - 199 mg/dL Calcium 8.9 8.5 - 10.3 mg/dL Protime-INR Collection Time: 10/18/19 1:02 AM Result Value Ref Range PT 11.2 8.6 - 13.0 sec INR 1.0 0.8 - 1.2 Magnesium Collection Time: 10/18/19 1:02 AM Result Value Ref Range Magnesium 2.3 1.4 - 2.5 mg/dL Phosphorus Collection Time: 10/18/19 1:02 AM Result Value Ref Range Phosphorus, pl 3.3 2.3 - 4.5 mg/dL aPTT Collection Time: 10/18/19 1:02 AM Result Value Ref Range aPTT 33 25 - 37 sec Type and screen Collection Time: 10/18/19 1:02 AM Result Value Ref Range Mara, indirect Negative ABO Rh O Positive CBC without differential Collection Time: 10/18/19 10:37 AM Result Value Ref Range WBC 4.7 3.8 - 9.9 K/cumm Hgb 12.0 11.9 - 15.5 g/dL Hct 36.1 35.6 - 45.5 % Plt 222 150 - 400 K/cumm MPV 9.6 9.1 - 12.3 fL RBC 3.83 (L) 3.90 - 5.20 M/cumm MCV 94.3 81.3 - 96.4 fL MCH 31.3 27.1 - 33.3 pg MCHC 33.2 32.3 - 35.7 g/dL RDW CV 13.7 11.1 - 14.9 % RDW SD 46.8 35.7 - 48.1 fL NRBC abs 0.00 0.00 - 0.01 K/cumm Assessment/Plan Active Problems: 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 - Cardiology called for left heart cath which was performed today and with clean coronaries. - continue home ASA, holding home Plavix - MRA ordered to evaluate occlusion and cerebrovascular system+ OR planning. ?? #Syncopal episodes - Fall precautions - Keep on telemetry - Q4H neurologic checks ?? #Benign hypertension - Continue home atenolol, HCTZ - Monitor BP. - Allow permissive hypertension, ideally 160 to 180. Labetalol ordered for SBP over 200. Cosigned by Cedric Ansari MD PhD at 10/19/2019 12:30 PM SAP BUSINESS OBJECTS CONSULTANT BUSINESS OBJECTS CONSULTANT BUSINESS OBJECTS CONSULTANT * Bindu Ayala, SENG - 10/18/2019 1:57 PM CST 10/18/19 0647 Information Information Obtained From Patient Referral Data Referral Source Self referral Referral Reason Discharge Planning Prior to Admission Primary Caregiver Self Support System Spouse/Significant Other Support system contact info (name, phone, availablity) Juice Saenz () [phone] Home Care Services No Durable Medical Equipment None Living Arrangements Spouse/significant other Type of Residence Private residence Financial Resource Payor Source Medicare Potential Discharge Needs Anticipated discharge level of care Private residence Pt/Family agrees with Anticipated Level of Care Yes Patient expects to be discharged to: Private residence Dialysis No Behavioral Health Services No Chart reviewed for medical necessity. Patient admitted for treatment of: Multiple episodes of syncope; cerebral vascular disease Information obtained from: patient Insurance verified as: [facility] PCP verified as: Dr. Alexander in [facility] Transportation: per family Admission Source: non-healthcare facility Additional Information/Options Discussed: Verified demographic information from the face sheet withthe patient. Explained role and purpose of family preservation caseworker. Denies the use of home health in the past - a list will be provided if recommended. photo manager to continue to follow for planning and referrals as needed. Discussed mobile pharmacy. Patient/Family agreeable with discharge plan. Based on a comprehensive family assessment, assistance with instrumental activities of daily livingafter discharge will be provided by Juice. Through the course of our work I determined that Juice possesses the skill and ability to provide and monitor the care of the patient when she returns home. Juice has the capacity to provide/monitor/arrange for the care of the patient. Finally, we determined that Juice has the knowledge of available resources and that combining them with their existing resources will suffice to sustain and care for the patient when she returns home. The treatment team is aware of this information. All are in agreement with the aftercare plan. Problem: Patient still requiring further evaluation/monitoring before being medically stable to discharge Goal: Implement a safe discharge with family support; CM to follow for d/c planning and referrals as needed. BUSINESS OBJECTS CONSULTANT documented in this encounter H&P Notes * Mario House MD - 10/21/2019 6:[address] ICU History and Physical Shifts: Shift Options: 8300 AM 1 Subjective Patient is a 73 y.o. female admitted to the hospital on 10/17/2019 11:40 PM Chief Complaint / Reason for admission to CTICU Vertebrobasilar insufficiency, innomiate artery occlusion and carotid stenosis s/p aortic arch reconstruction with aorta to bilateral carotid graft and aorta to right axillary artery graft via Drs. Ramírez and Bree. HPI: Suma Saenz is a 73 y.o. 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 Induction was uneventful other than moderately difficult intubation due to limited mouth opening and neck extension (Grade IIb with Conley videolaryngoscope). Femoral central line was placed by surgical team uneventfully. Intraoperatively pt had at least 750 mL of EBL with 1 L of EBL, 1500 of crystalloid and 240 of cellsaver given. JASON was performed which showed underfilled ventricle prior to last 750 of albumin. UOPthroughout case was only 175 mL. Neuromuscular blockade was given and reversed. Cerebral oximetry was used throughout case without significant deviation at any point from baseline values. Grafts were successfully placed without much incident utilizing side clamp on aorta and not needingbypass. Aorta to Right axillary graft as well as aorta to right and left Y-branching crafts were placed with good flow. This was done via mini sternotomy. Right pleural chest tube and mediastinal chest tubes were placed. Prior to surgery right radial pulse was dopplerable but weak, this was improved post operatively and was palpable. Pt presents to CTICU intubated and sedated on precedex, hypertensive with norepinephrine and vasopressin drips. Past Medical History: Diagnosis Date ??? Anxiety [...] EXTRACAPSULAR W/ INTRAOCULAR LENS IMPLANTATION Bilateral 2018 HOME MEDICATIONS : aspirin 325 mg tablet atenoloL (TENORMIN) 50 mg tablet atorvastatin (LIPITOR) 80 mg tablet buPROPion XL (WELLBUTRIN XL) 150 mg 24 hr tablet cetirizine (ZyrTEC) 10 mg tablet clopidogrel (PLAVIX) 75 mg tablet doxycycline (ADOXA) 50 mg tablet hydroCHLOROthiazide (HYDRODIURIL) 25 mg tablet montelukast (SINGULAIR) 10 mg tablet senna-docusate (SENNA PLUS) 8.6-50 mg Allergies Allergen Reactions ??? Naproxen Rash ??? Nsaids (Non-Steroidal Anti-Inflammatory Drug) Hives ??? Penicillins Rash ??? Sulfa (Sulfonamide Antibiotics) Rash Social History Tobacco Use ??? Smoking status: Former Smoker Types: Cigarettes ??? Smokeless tobacco: Never Used Substance Use Topics ??? Alcohol use: Yes Family History Problem Relation Age of Onset ??? Stroke Father Stroke; ??? Heart disease Father Family history of cardiac disorder - (Added by JAMAAL Conv) ??? Heart disease Mother Heart disease; /Family history of cardiac disorder - (Added by TW Conv) Review of systems: ROS not performed due to pt being intubated Objective Medications: Scheduled Meds:acetaminophen, 1,000 mg, oral, Q6H REID Or acetaminophen, 1,000 mg, feeding tube, Q6H REID Or acetaminophen, 650 mg, rectal, Q6H REID [START ON 10/22/2019] aspirin, 325 mg, oral, Daily ceFAZolin, 2,000 mg, intravenous, Q8H REID insulin lispro, 1-3 Units, subcutaneous, Q4H REID [START ON 10/22/2019] lidocaine, 2 patch, transdermal, Daily sodium chloride 0.9%, 0.5-20 mL, intra-catheter, Q8H REID Continuous Infusions:dexMEDEtomidine, 0.2-1.5 mcg/kg/hr, Last Rate: Stopped (10/21/191929) Lactated Ringer's, 50 mL/hr, Last Rate: 50 mL/hr (10/21/191899) norepinephrine, 0.01-2 mcg/kg/min, Last Rate: Stopped (10/21/191929) sodium chloride 0.9%, 1,000 mL sodium chloride 0.9%, 1,000 mL, Last Rate: 6 mL/hr at 10/21/191899 Vitals: Temp: [36.2 ??C (97.2 ??F)-36.5 ??C (97.7 ??F)] 36.5 ??C (97.7 ??F) Pulse: [63-73] 73 BP: (145-206)/(54-65) 206/63 Resp: [8-31] 22 SpO2: [97 %-100 %] 100 % Arterial Line BP: (106-153)/(42-56) 123/53 FiO2 (%): [40 %] 40 % Fluid balnace: I/O this shift: In: 62.4 [I.V.:62.4] Out: 60 [Urine:30; Chest Tube:30] Intake/Output Summary (Last 24 hours) at 10/21/20192014 Last data filed at 10/21/2019 1900 Gross per 24 hour Intake 2884.03 ml Output 1125 ml Net 1759.03 ml Vent settings: Adult Vent Mode: Pressure support Ventilation FiO2 (%): 40 % S RR: 16 PEEP/CPAP/EPAP (cm H2O): 5 cm H20 Pressure Support (cm H2O): 10 cm H20 Hemodynamic parameters: PAP: -- CVP: -- PCWP: -- CO: -- CI: -- SVO2: -- Pacemaker Overdrive Pacing: -- Cardiac Rhythm: Normal sinus rhythm (10/21 1899) Pacer Mode: -- Physical exam: General: Obese female, intubated and sedated Ear/Nose/Throat: Intubated Lungs: clear to auscultation bilaterally Chest: dressings CDI, chest tubes with minimal serosanguinous output Abdomen: soft non tender non distended Extremities: warm and well perfused Pulses: palpable radial pulses Neurologic: Moves all extremities to command, intermittently opens eyes spontaneously and to comand Laboratory data: Recent Labs Lab Units 10/21/19 1729 10/21/19 1551 10/21/19 1406 10/20/19 2302 10/20/19 0036 WBC K/cumm 13.8* -- -- 5.9 6.6 HEMOGLOBIN, POC g/dL -- 10.8* 11.0* -- -- HEMOGLOBIN g/dL 7.1* -- -- 12.4 12.0 HEMATOCRIT % 21.8* -- -- 38.0 35.7 HEMATOCRIT POC % -- 32.0* 33.0* -- -- PLATELETS K/cumm 144* -- -- 231 213 Recent Labs Lab Units 10/21/19 1729 10/20/19 2302 10/20/19 0036 SODIUM mmol/L 139 136 138 POTASSIUM PLASMA mmol/L 4.3 4.2 4.0 CHLORIDE mmol/L 113* 103 105 CO2 mmol/L 21* 21* 24 BUN SERUM mg/dL 13 15 19 CREATININE mg/dL 0.77 0.83 0.85 CALCIUM mg/dL 8.3* 9.6 9.0 Recent Labs Lab Units 10/21/19 1729 10/18/19 0102 PROTIME (PT) sec 15.6* 11.2 INR 1.4* 1.0 APTT sec 27 33 Recent Labs Lab Units 10/21/19 1847 10/21/19 1729 10/21/19 1551 PH ART 7.34* 7.33* 7.27* PCO2 ART mmHg 38 38 -- PO2 ART mmHg 161* 156* -- PO2 ARTERIAL POC mmHg -- -- 286* BASE EXC ART mmol/L -5 -6 -- Radiology/Diagnostic Review CXR without significant pneumo or hemothorax. ETT properly placed. Assessment/Plan Vertebrobasilar artery insufficiency Assessment & Plan S/p aorto to right axillary and aorto to bilateral carotid bypass Expected post operative ventilation, wean to extubate after labs return if neuro exam reassuring. MAP>65 and SBP<120, norepinephrine ordered, likely still hypovolemic/anemic, will follow up labs for choice of resuscitative fluid. At risk for cerebral hyperperfusion, if severe headache have pt sit up, make sure pressure is controlled and call vascular surgical team while ordering head CT Daily ASA q1h Neurovascular checks Chronic back pain complicated by acute surgical pain Assessment & Plan Dilaudid PRN while intubated, will add scheduled acetaminophen and PRN oxycodone once extubated. Labile hypertension Assessment & Plan Currently hypotensive but initially hypertensive in OR. Will likely need restarting of his anti-hypertensives once acute post surgical hemodynamics stabilize. Cosigned by Michael Marcelo MD at 12/26/2019 3:16 PM CDT BUSINESS OBJECTS CONSULTANT BUSINESS OBJECTS CONSULTANT * Gisella Freedman MD - 10/17/2019 10:35 PM CST Vascular Surgery History and Physical Patient Name/MRN: Suma Saenz [id number] Treatment Team: Vascular Surgery- Pager: [phone] Attending: Nanci Giron MD Today's Date: 10/18/2019 Admitting Service: Vascular Admitting location: [id number] Admit Date: 10/17/2019 Code Status: Full Code Subjective Patient is a 73 y.o. female with chief complaint of syncopal episode HPI: Ms. Saenz is a 73 y/o F with history of vertebrobasilar insufficiency, orthostatic hypotension, innominate artery occlusion, and stenosis of the L carotid/vertebral arteries who presents followingrepeat syncopal episode. Patient reports that today she was at her primary care office for a routine appointment when she started to become dizzy, lightheaded, and experienced visual changes that she describes as bilateral blotchiness while sitting in the examination chair. She subsequently became globally weak and passed out. She remembers waking up on the floor, her PCP had helped her to the ground such that there was no headstrike, but definite +LOC. She was thereafter sent to her local emergency department and seen by the ER provider who evaluated her last week when a similar event occurred. He recognized that the patient was followed by Dr Giron at [facility] so requested transfer of the patient for further management given her recurrent symptoms and known occlusion. The patient was accepted for transfer and arrived to the [address] OU in stable condition. Of note, the patient was just recently admitted to the Vascular Surgery Service from 10/10-10/12 for similar syncopal episodes. During this prior admission, operative intervention for the innominate occlusion carotid/vertebral stenoses as as combined case with Cardiothoracic Surgery was discussed with the patient, but the patient declined to proceed with this given concern for her 's health problems. She was discharged to home with instructions to notify us if she had recurrent or worsening symptoms. Today upon readmission she reports that she understands the severity of her symptoms and wishes to proceed with operative intervention at this time. Past Medical History: Diagnosis Date ??? Degenerative disc disease at L5-S1 level ??? Ischemic embolic stroke (CMS/HCC) 07/04/2016 Cerebrovascular accident (CVA) due to embolism of cerebral artery No past surgical history on file. Allergies Allergen Reactions ??? Naproxen Rash ??? Nsaids (Non-Steroidal Anti-Inflammatory Drug) Hives ??? Penicillins Rash ??? Sulfa (Sulfonamide Antibiotics) Rash Medications Prior to Admission Medication Sig Dispense Refill Last Dose ??? aspirin 325 mg tablet take 1 tablet by oral route every day 0 0 10/18/2019 at Unknown time ??? atenoloL (TENORMIN) 50 mg tablet Take 1 tablet (50 mg total) by mouth daily 30 tablet 0 10/18/2019 at Unknown time ??? atorvastatin (LIPITOR) 80 mg tablet take 1 tablet by oral route every day 0 0 10/17/2019 at Unknown time ??? buPROPion XL (WELLBUTRIN XL) 150 mg 24 hr tablet take 1 tablet by oral route 2 times every day 0 0 10/18/2019 at Unknown time ??? cetirizine (ZyrTEC) 10 mg tablet take 1 tablet by oral route every day 0 0 10/18/2019 at Unknowntime ??? clopidogrel (PLAVIX) 75 mg tablet take 1 tablet by oral route every day 0 0 10/18/2019 at Unknown time ??? doxycycline (ADOXA) 50 mg tablet Take 50 mg by mouth 2 (two) times a day. 10/18/2019 at Unknown time ??? hydroCHLOROthiazide (HYDRODIURIL) 25 mg tablet Take 25 mg by mouth daily 10/18/2019 at Unknown time ??? montelukast (SINGULAIR) 10 mg tablet take 1 tablet by oral route every day in the evening 0 0 10/17/2019 at Unknown time ??? senna-docusate (SENNA PLUS) 8.6-50 mg take 2 tablet by oral route every day 0 0 10/17/2019 at Unknown time Current Facility-Administered Medications Medication Dose Route Frequency Provider Last Rate Last Dose ??? aspirin tablet 325 mg 325 mg oral Daily Gisella Freedman MD ??? atenoloL (TENORMIN) tablet 50 mg 50 mg oral Daily Gisella Freedman MD ??? atorvastatin (LIPITOR) tablet 80 mg 80 mg oral Nightly Gisella Freedman MD 80 mg at 10/18/19 0124 ??? buPROPion XL (WELLBUTRIN XL) 24 hour tablet 150 mg 150 mg oral Daily Gisella Freedman MD ??? cetirizine (ZyrTEC) tablet 10 mg 10 mg oral Nightly Gisella Freedman MD ??? doxycycline monohydrate (ADOXA) tablet 50 mg 50 mg oral BID Gisella Freedman MD ??? heparin 5,000 unit/mL injection 5,000 Units 5,000 Units subcutaneous Q8H [facility] Gisella Freedman MD 5,000 Units at 10/18/19 0029 ??? hydroCHLOROthiazide (HYDRODIURIL) tablet 25 mg 25 mg oral Daily Gisella Freedman MD ??? Lactated Ringer's (LR) infusion 50 mL/hr intravenous Continuous Gisella Freedman MD 50 mL/hr at 10/18/19 0109 50 mL/hr at 10/18/19 0109 ??? montelukast (SINGULAIR) tablet 10 mg 10 mg oral Nightly Gisella Freedman MD ??? senna-docusate (PERICOLACE) 8.6-50 mg per tablet 2 tablet 2 tablet oral BID PRN Gisella Freedman MD ??? sodium chloride 0.9% flush 0.5-20 mL 0.5-20 mL intra-catheter Q8H [facility] Gisella Freedman MD 10 mL at 10/18/19 0112 ??? sodium chloride 0.9% flush 0.5-20 mL 0.5-20 mL intra-catheter PRN Gisella Freedman MD Family History Problem Relation Age of Onset ??? Stroke Father Stroke; ??? Heart disease Father Family history of cardiac disorder - (Added by TW Conv) ??? Heart disease Mother Heart disease; /Family history of cardiac disorder - (Added by TW Conv) Social History Tobacco Use ??? Smoking status: Former Smoker Types: Cigarettes ??? Smokeless tobacco: Never Used Substance Use Topics ??? Alcohol use: Yes Primary Care Physician: Abbe Nails MD Primary Care Physician number: [phone] Review of Systems: Review of Systems Constitutional: Positive for fatigue. Negative for chills and fever. HENT: Negative for congestion, rhinorrhea and sore throat. Eyes: Positive for visual disturbance. Respiratory: Negative for cough and shortness of breath. Cardiovascular: Negative for chest pain and palpitations. Gastrointestinal: Negative for abdominal pain, constipation, diarrhea, nausea and vomiting. Genitourinary: Negative for difficulty urinating. Musculoskeletal: Positive for back pain (chronic). Skin: Negative for rash and wound. Neurological: Positive for dizziness, syncope, weakness (global) and light- headedness. Negative fortremors, facial asymmetry, speech difficulty, numbness and headaches. Psychiatric/Behavioral: Negative for agitation and confusion. Objective Most Recent : Vitals: 10/18/19 0100 BP: 155/52 Pulse: 57 Resp: 13 Temp: SpO2: 96% No intake/output data recorded. No intake/output data recorded. Physical exam: GENERAL: Awake, alert, oriented x 4; no acute distress. HEENT: Eyes: Pupils equal, round, reactive to light and accommodation. No facial droop noted. NECK: Supple and symmetric. RESPIRATORY: Good respiratory effort. Symmetrical rise and fall. Symmetrical expansion with respirations. CARDIOVASCULAR: Regular rate and rhythm. No murmurs. GASTROINTESTINAL: No tenderness or mass. Abdomen is nondistended. MUSCULOSKELETAL: Strength 5/5 in the bilateral upper extremities and bilateral lower extremities. PULSES: Palpable left radial pulse, right radial/ulnar pulses per doppler. NEUROLOGICAL: Cranial nerves II-XII intact. Sensation intact. Lab/Radiology/Diagnostic Review: Laboratory review: Lab results in the last 12 hours: Recent Results (from the past 12 hour(s)) CBC without differential Collection Time: 10/18/19 1:02 AM Result Value Ref Range WBC 6.6 3.8 - 9.9 K/cumm Hgb 12.4 11.9 - 15.5 g/dL Hct 36.6 35.6 - 45.5 % Plt 230 150 - 400 K/cumm MPV 9.3 9.1 - 12.3 fL RBC 3.98 3.90 - 5.20 M/cumm MCV 92.0 81.3 - 96.4 fL MCH 31.2 27.1 - 33.3 pg MCHC 33.9 32.3 - 35.7 g/dL RDW CV 13.5 11.1 - 14.9 % RDW SD 45.5 35.7 - 48.1 fL NRBC abs 0.00 0.00 - 0.01 K/cumm Assessment /Plan Active Problems: No Active Problems: There are no active problems currently on the Problem List. Please update the Problem List and refresh. Assessment: Ms. Saenz is a 73-year-old female who presents as direct admit following repeat syncopal episodein the setting of severe innominate artery stenosis. Plan: Admit to vascular surgery service under attending physician, Dr. Giron for further evaluation and treatment. We will obtain basic laboratory studies including CBC, BMP, PTT, INR, and type and screen. Additionally, we will obtain baseline EKG, and she will be NPO in case of procedure tomorrow. #Severe innominate artery stenosis - Patient will need innomminate artery bypass - Cardiac surgery consult for combined OR planning - Cardiology called for left heart cath pre-operatively, will attempt to add to schedule for 10/18 if feasible - NPO in case of procedure - continue home ASA, holding home Plavix #Syncopal episodes - Fall precautions - Keep on telemetry - Q4H neurologic checks #Benign hypertension - Continue home atenolol, HCTZ - Monitor BP Cosigned by Nanci Giron MD at 10/19/2019 8:42 AM SAP BUSINESS OBJECTS CONSULTANT BUSINESS OBJECTS CONSULTANT BUSINESS OBJECTS CONSULTANT Associated attestation - Nanci Giron MD - 10/19/2019 8:42 AM SAP BUSINESS OBJECTS CONSULTANT I have seen and examined the patient on 10/18/2019. I agree with the findings and plan of care with the following modifications:This nice lady is well known to me. She returns for readmission after experiencing at another syncopal episode. She wishes to proceed forward with great vessel revascularization is we have discussed in the past. She is aware of the risks of , cardiac events, stroke, cranial nerve injury, bleeding, infection, restenosis, and failure to relieve her syncopal episodes.She understands that the neurology team has proposed possible alternative diagnoses, but giving theincreasing frequency of her symptoms and her clear-cut multi-vessel occlusions, I feel that we should 1st undertake revascularization, and pursue the less likely alternative diagnoses if revascularization fails to improve her symptoms. She is in full agreement with that. Her left heart catheterization was unremarkable. MR angiogram of the neck and head is pending. I will discuss timing of her surgery with our cardiac surgery colleagues... documented in this encounter Procedure Notes * Michael Marcelo MD - 10/25/2019 11:07 AM CSTAssociated Order(s): Critical Care Post-Procedure Diagnose(s): Acute postoperative pain Critical Care Performed by: Michael Marcelo MD Authorized by: Michael Marcelo MD CRITICAL CARE: Team: 83 CTICU Shift: AM Level of Billing: Subsequent Hospital Visit Level 3 My time spent with this patient was 35 minutes: Critical Provider Statement: I have seen and examined the patient on this day of service. I have reviewed and confirmed the history, physical exam, laboratory, and radiographic data as documented in the ICU note. I have reviewed and discussed my treatment plan with the patient's team and other medical/sap bw consultant staff. This time was in addition to and separate from care provided by other practitioners on this day of service. Acute respiratory failure following procedure/surgery This time was spent by me doing the following: Serial neurovascular exams and Initiation/active titration of vasoactive medications I spent time reviewing and interpreting data from bedside monitors, laboratory results, and imagingand I spent time documenting in the medical record BUSINESS OBJECTS CONSULTANT Michael Melton MD - 10/24/2019 12:48 PM CSTAssociated Order(s): Critical Care Post-Procedure Diagnose(s): Labile hypertension Critical Care Performed by: Michael Marcelo MD Authorized by: Michale Marcelo MD CRITICAL CARE: Team: 83 CTICU Shift: AM Level of Billing: Critical Care My time spent with this patient was 40 minutes: Critical Provider Statement: I have seen and examined the patient on this day of service. I have reviewed and confirmed the history, physical exam, laboratory and radiologic data as documented in thesigned ICU note. I have reviewed and discussed my treatment plan with the ICU team and other medical/sap bw consultant staff, making frequent assessments and decisions regarding this patient's complex medical care. Critical Care time was exclusive of time spent performing separately billed procedures, treating other patients, and teaching. This time was in addition to and separate from critical care provided by other practitioners in my group on this day of service. Critical Care was necessary to treat or prevent imminent or life-threatening deterioration of the following conditions: Acute hypoxic respiratory failure and Acute respiratory failure following procedure/surgery This time was spent by me doing the following: Initiation/active titration of vasoactive medications Active and frequent reassessment of respiratory status and oxygen requirements Active diuresis I spent time reviewing and interpreting data from bedside monitors, laboratory results, and imaging, I spent time discussing the management of this critically ill patient with consultants and the medical staff and I spent time documenting in the medical record BUSINESS OBJECTS CONSULTANT * Michael Marcelo MD - 10/23/2019 11:12 AM CSTAssociated Order(s): Critical Care Post-Procedure Diagnose(s): Acute postoperative pain; Acute respiratory failure with hypoxia (CMS/HCC) (HCC); Orthostatic hypotension Critical Care Performed by: Michael Marcelo MD Authorized by: Michael Marcelo MD CRITICAL CARE: Team: 83 CTICU Shift: AM Level of Billing: Critical Care My time spent with this patient was 40 minutes: Critical Provider Statement: I have seen and examined the patient on this day of service. I have reviewed and confirmed the history, physical exam, laboratory and radiologic data as documented in thesigned ICU note. I have reviewed and discussed my treatment plan with the ICU team and other medical/sap bw consultant staff, making frequent assessments and decisions regarding this patient's complex medical care. Critical Care time was exclusive of time spent performing separately billed procedures, treating other patients, and teaching. This time was in addition to and separate from critical care provided by other practitioners in my group on this day of service. Critical Care was necessary to treat or prevent imminent or life-threatening deterioration of the following conditions: Hypertensive crisis Acute hypoxic respiratory failure This time was spent by me doing the following: Frequent neurologic exams Initiation/active titration of vasoactive medications Optiflow support and Active and frequent reassessment of respiratory status and oxygen requirements I spent time reviewing and interpreting data from bedside monitors, laboratory results, and imaging, I spent time discussing the management of this critically ill patient with consultants and the medical staff and I spent time documenting in the medical record BUSINESS OBJECTS CONSULTANT * Michael Marcelo MD - 10/22/2019 12:06 PM CSTAssociated Order(s): Critical Care Post-Procedure Diagnose(s): Vertebral artery compression syndrome; Syncope and collapse Critical Care Performed by: Michael Marcelo MD Authorized by: Michael Marcelo MD CRITICAL CARE: Team: 83 CTICU Shift: AM Level of Billing: Critical Care My time spent with this patient was 40 minutes: Critical Provider Statement: I have seen and examined the patient on this day of service. I have reviewed and confirmed the history, physical exam, laboratory and radiologic data as documented in thesigned ICU note. I have reviewed and discussed my treatment plan with the ICU team and other medical/sap bw consultant staff, making frequent assessments and decisions regarding this patient's complex medical care. Critical Care time was exclusive of time spent performing separately billed procedures, treating other patients, and teaching. This time was in addition to and separate from critical care provided by other practitioners in my group on this day of service. Critical Care was necessary to treat or prevent imminent or life-threatening deterioration of the following conditions: Hypotension This time was spent by me doing the following: Serial bedside patient exams Initiation/active titration of vasoactive medications and Serial neurovascular exams I spent time reviewing and interpreting data from bedside monitors, laboratory results, and imaging, I spent time discussing the management of this critically ill patient with consultants and the medical staff and I spent time documenting in the medical record BUSINESS OBJECTS CONSULTANT * Michela Gore RN - 10/18/2019 2:42 AM CST Vascular Access Nurse: Procedure Note Summary of treatment provided to patient today is as follows : . Bedside Procedure Time out/Checklist (last 4 hours) Pre-Op Checklist Row Name 10/17/19 2300 Patient Belongings at Bedside Belongings at Bedside Vision;Clothing;Electronic devices - Vision - Corrective Lenses Glasses - Clothing Pants;Footwear;Underpants -CK Patient Electronics Cell phone -CK Patient Belongings Given to Family Belongings Given to Family Jewelry;Money/credit card -CK Jewelry Ring;Watch -CK Money/credit card wallet -CK Patient Belongings Sent to Safe Belongings Sent to Safe None -CK Patient Medications Medications brought by patient? No -CK Patient/Chart Verification Advance Directive Patient has advance directive, copy not in chart -CK Advance Directive not in Chart Copy requested from family -CK User Ghosh (r) = Recorded By, (t) = Taken By, (c) = Cosigned By Initials Name HERMAN Martinez RN Vascular Access Documentation (last 4 hours) [facility] Additional Procedures Row Name 10/18/19 0241 Procedures Line Type Peripheral -CB Time in 239 -CB Time out 249 -CB Time Calculation (min) 10 min -CB Vascular Access Procedures Difficult IV start -CB Patient Response Tolerated (no change in status) -CB Peripheral IV 10/18/19 20 G Left Forearm IV Properties Placement Date: 10/18/19 -CB Placement Time: 244 -CB IV Change Due: 10/22/19 -CB Type: Angiocath -CB Size (Gauge): 20 G -CB Location Orientation: Left -CB Location: Forearm -CB Site Prep: Chlorhexidine -CB Local Anesthetic: None -CB Technique: Anatomical landmarks -CB Inserted by: Mildred Melchor RN -CB Insertion attempts: 1 -CB Patient Tolerance: Tolerated well -CB Site Assessment Clean and dry -CB Line Status Single Blood return noted;Flushes easily;Saline locked -CB Dressing Type Transparent -CB Dressing Status Occlusive;Clean, dry, intact -CB User Ghosh (r) = Recorded By, (t) = Taken By, (c) = Cosigned By Initials Name JAZMIN Gore RN Plan: Follow up: Michela Gore RN BUSINESS OBJECTS CONSULTANT documented in this encounter Consult Notes * Micah Glover MD - 10/22/2019 7:39 AM CSTAssociated Order(s): IP CONSULT TO PAIN MANAGEMENT Pain Service Consult Reason for Consult: Lidocaine drip Requesting Provider: Nanci Giron Chief Complain: No chief complaint on file. HPI: Suma Saenz is a 73 y.o. year old female referred by Nanci Steven MD for consultation regarding chronic back pain complicated by acute post-operative pain. 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 A lidocaine infusion was started overnight 10/21-10/22 to aid in pain management. She does not take any narcotics at home for pain management. This morning, she reported adequate pain control. Of note, lidocaine infusion was briefly paused because the patient complained of perioral numbness. Plasma level = 3.2 this morning, consistent with therapeutic levels. She denied any s/s of lidocaine toxicity this morning. Past Medical History: Diagnosis Date ??? Anxiety ??? Back pain ??? Carotid stenosis ??? Degenerative disc disease at L5-S1 level ??? Depression ??? Ischemic embolic stroke (CMS/[facility]) 07/04/2016 Cerebrovascular accident (CVA) due to embolism [...] EXTRACAPSULAR W/ INTRAOCULAR LENS IMPLANTATION Bilateral 2018 Medications Prior to Admission Medication Sig Dispense Refill Last Dose ??? aspirin 325 mg tablet take 1 tablet by oral route every day 0 0 10/18/2019 at Unknown time ??? atenoloL (TENORMIN) 50 mg tablet Take 1 tablet (50 mg total) by mouth daily 30 tablet 0 10/18/2019 at Unknown time ??? atorvastatin (LIPITOR) 80 mg tablet take 1 tablet by oral route every day 0 0 10/17/2019 at Unknown time ??? buPROPion XL (WELLBUTRIN XL) 150 mg 24 hr tablet take 1 tablet by oral route 2 times every day 0 0 10/18/2019 at Unknown time ??? cetirizine (ZyrTEC) 10 mg tablet take 1 tablet by oral route every day 0 0 10/18/2019 at Unknowntime ??? clopidogrel (PLAVIX) 75 mg tablet take 1 tablet by oral route every day 0 0 10/18/2019 at Unknown time ??? doxycycline (ADOXA) 50 mg tablet Take 50 mg by mouth 2 (two) times a day. 10/18/2019 at Unknown time ??? hydroCHLOROthiazide (HYDRODIURIL) 25 mg tablet Take 25 mg by mouth daily 10/18/2019 at Unknown time ??? montelukast (SINGULAIR) 10 mg tablet take 1 tablet by oral route every day in the evening 0 0 10/17/2019 at Unknown time ??? senna-docusate (SENNA PLUS) 8.6-50 mg take 2 tablet by oral route every day 0 0 10/17/2019 at Unknown time Allergies Allergen Reactions ??? Naproxen Rash ??? Nsaids (Non-Steroidal Anti-Inflammatory Drug) Hives ??? Penicillins Rash ??? Sulfa (Sulfonamide Antibiotics) Rash Social History Tobacco Use ??? Smoking status: Former Smoker Types: Cigarettes ??? Smokeless tobacco: Never Used Substance Use Topics ??? Alcohol use: Yes Family History Problem Relation Age of Onset ??? Stroke Father Stroke; ??? Heart disease Father Family history of cardiac disorder - (Added by TW Conv) ??? Heart disease Mother Heart disease; /Family history of cardiac disorder - (Added by TW Conv) Review of Systems: Review of 12 systems negative except that which was stated in HPI. Scheduled Medications: acetaminophen, 1,000 mg, oral, Q6H [facility] Or acetaminophen, 1,000 mg, feeding tube, Q6H [facility] Or acetaminophen, 650 mg, rectal, Q6H [facility] aspirin, 325 mg, oral, Daily atorvastatin, 80 mg, oral, Nightly buPROPion XL, 150 mg, oral, Daily heparin, 5,000 Units, subcutaneous, Q8H [facility] insulin lispro, 1-3 Units, subcutaneous, Q4H [facility] sodium chloride 0.9%, 0.5-20 mL, intra-catheter, Q8H [facility] Continuous Medications: HYDROmorphone, Lactated Ringer's, 30 mL/hr, Last Rate: 30 mL/hr (10/22/19699) lidocaine, 1.5 mg/kg/hr ([place]), Last Rate: 1.5 mg/kg/hr (10/22/19699) niCARdipine, 0.5-2.5 mcg/kg/min, Last Rate: 2.5 mcg/kg/min (10/22/19699) norepinephrine, 0.01-2 mcg/kg/min, Last Rate: Stopped (10/21/191929) sodium chloride 0.9%, 6 mL/hr, Last Rate: 6 mL/hr (10/22/19699) sodium chloride 0.9%, 1,000 mL PRN Medications: dextrose OR dextrose ??? glucagon ??? naloxone ??? ondansetron ??? oxyCODONE ??? potassium chloride ??? sodium chloride 0.9% OBJECTIVE Vitals: 24hr Min/Max: Temp Min: 97.3 ??F (36.3 ??C) Max: 98.2 ??F (36.8 ??C) Pulse Min: 65 Max: 87 BP Min: 158/55 Max: 206/63 Resp Min: 8 Max: 34 SpO2 Min: 89 % Max: 100 % Most Recent : Vitals: 10/22/19699 BP: Pulse: 65 Resp: 25 Temp: SpO2: 93% I/O last 2 completed shifts: In: 3544.5 [P.O.:250; I.V.:1824.5; Blood:350; IV Piggyback:1120] Out: 1680 [Urine:500; Emesis/NG output:50; Blood:750; Chest Tube:380] I/O this shift: In: 74.1 [I.V.:74.1] Out: 30 [Urine:30] Physical Exam: Constitutional: Patient is well-groomed, in NAD, A&Ox3 Head: Atraumatic, normocephalic Eyes, ears, nose, mouth: Mouth opening normal Neck: supple, without appreciable adenopathy Lung: normal respiratory effort Cardiovascular: No JVD GI: Abd soft, NT Skin: right ax incision well healed, mild superficial bruising but no induration or erythema and issoft, no hematoma, sternotomy incision with dressing, c/d/i Neurologic: Sensation to light touch grossly intact. CN III-XII grossly intact Skin: No rashes or lesions in the four extremities and back. 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) Overview Innominate artery stenosis Relevant Orders Case Request Deliverer Outside (Completed) Cardiac Catheterization (Completed) Vertebral artery compression syndrome - Primary Overview Vertebral artery insufficiency Relevant Orders Case Request Deliverer Outside (Completed) Cardiac Catheterization (Completed) Vascular Surgery Procedure Vertebrobasilar artery insufficiency Overview Added automatically from request for surgery [id number] Current Assessment & Plan - S/p aorto to right axillary and aorto to bilateral carotid bypass - Successfully extubated 2 P.M., continue q1h neurovasc checks - MAP>65 and SBP<120, off pressors since extubation, on nicardipine gtt At risk for cerebral hyperperfusion, if severe headache have pt sit up, make sure pressure is controlled and call vascular surgical team while ordering head CT - Daily ASA - q1h Neurovascular checks Relevant Orders Vascular Surgery Procedure Suma Saenz is a 73 y.o. 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 Plan 1. Intervention: No intervention indicated at this current time. 2. Medications: -Agree with scheduled acetaminophen -Agree with lidocaine infusion, please check levels q24h. If plasma levels > 5, please stop the infusion and call the pain pager. -Agree with hydromorphone BUSINESS UNIT DIRECTOR. Please keep BUSINESS UNIT DIRECTOR for 24h and we will calculate MME's. -Recommend d/c oxycodone prn while on hydromorphone BUSINESS UNIT DIRECTOR. Will transition to oxycodone likely in 24h. We will continue to follow. Thank you for allowing us to participate in the care of this patient -- Micah Glover M.D. Resident Physician Department of Anesthesiology [facility] in [place] Cosigned by Mati Leon MD at 10/22/2019 8:40 PM SAP BUSINESS OBJECTS CONSULTANT BUSINESS OBJECTS CONSULTANT BUSINESS OBJECTS CONSULTANT Associated attestation - Mati Leon MD - 10/22/2019 8:40 PM SAP BUSINESS OBJECTS CONSULTANT I have seen and examined the patient on 10/22/19. I agree with the findings and plan of care as documented in the resident's/fellow's note. * Katharine Ramirez, RD - 10/19/2019 3:02 PM CSTAssociated Order(s): IP CONSULT TO NUTRITION SERVICES Nutrition Assessment Reason for Assessment: Initial Nutrition Assessment and Consult/Referral Encounter Date: 10/19/19 3:02 PM Patient is a 73 y.o. female with chief complaint of Syncopal episode. LOS is 2 days. HPI: vertebrobasilar insufficiency, orthostatic hypotension, innominate artery occlusion, and stenosis of the L carotid/vertebral arteries Consult received for assessment, pt with 6# wt loss and decreased appetite prior to admit. Objective Past Medical History: Diagnosis Date ??? Anxiety ??? Back pain ??? Carotid stenosis ??? Degenerative disc disease at L5-S1 level ??? Depression ??? Ischemic embolic stroke ([facility]) 07/04/2016 Cerebrovascular accident (CVA) due to embolism [...] Substance Use Topics ??? Alcohol use: Yes Family History Problem Relation Age of Onset ??? Stroke Father Stroke; ??? Heart disease Father Family history of cardiac disorder - (Added by TW Conv) ??? Heart disease Mother Heart disease; /Family history of cardiac disorder - (Added by TW Conv) Anthropometrics: Wt Readings from Last 3 Encounters: 10/18/19 88.5 kg (195 lb) 10/18/19 88.5 kg (195 lb) 10/14/19 85.5 kg (188 lb 9.6 oz) Anthropometrics Weight: 88.5 kg (195 lb) Admission Weight : 88.5 kg Weight Change: 0.00 kg (0.00 lbs) IBW/kg (Calculated) : 61.2 kg Height: 170.2 cm (5' 7 ) Weight in (lb) to have BMI = 25: 159.3 BMI (Calculated): 30.5 Nutrition Needs Calculations: Calculated Energy Needs Using Equations Weight: 88.5 kg (195 lb) Height: 170.2 cm (5' 7 ) Temp: 36.5 ??C (97.7 ??F) Estimated Protein Needs Type of Weight Used for Estimated Protein : [place] Protein Needs Based on g/k.1 Total Protein Estimated Needs (gm): 67.32 Kcal/kg Type of Weight Used for Estimated Kcals: Current Kcal/k Total Kcal/kg Estimated Needs : 1769.02 Vital Signs: BP: 155/49 Temp: 36.5 ??C (97.7 ??F) Pulse: 63 Resp: 18 SpO2: 99 % Medications: Scheduled Meds: aspirin, 325 mg, oral, Daily atorvastatin, 80 mg, oral, Nightly buPROPion XL, 150 mg, oral, Daily carvediloL, 12.5 mg, oral, BID cetirizine, 10 mg, oral, Nightly doxycycline monohydrate, 50 mg, oral, BID heparin, 5,000 Units, subcutaneous, Q8H REID hydroCHLOROthiazide, 25 mg, oral, Daily montelukast, 10 mg, oral, Nightly sodium chloride 0.9%, 0.5-20 mL, intra-catheter, Q8H REID Continuous Infusions: Lactated Ringer's, 50 mL/hr, Last Rate: Stopped (10/18/191807) PRN Meds: ??? acetaminophen ??? labetalol ??? senna-docusate ??? sodium chloride 0.9% Lab Review: Sodium Date Value Ref Range Status 10/19/2019 138 135 - 145 mmol/L Final Potassium, pl Date Value Ref Range Status 10/19/2019 4.0 3.3 - 4.9 mmol/L Final BUN Date Value Ref Range Status 10/19/2019 18 8 - 25 mg/dL Final Creatinine Date Value Ref Range Status 10/19/2019 0.89 0.60 - 1.10 mg/dL Final Phosphorus, pl Date Value Ref Range Status 10/18/2019 3.3 2.3 - 4.5 mg/dL Final Magnesium Date Value Ref Range Status 10/18/2019 2.3 1.4 - 2.5 mg/dL Final Calcium Date Value Ref Range Status 10/19/2019 8.6 8.5 - 10.3 mg/dL Final Lab Results Component Value Date HGBA1C 5.9 04/02/2016 HDL 57 04/02/2016 CHOL 130 04/02/2016 TRIG 116 04/02/2016 Nursing Assessment: Intake/Output Summary (Last 24 hours) at 10/19/2019 1502 Last data filed at 10/19/2019 1200 Gross per 24 hour Intake 1176.67 ml Output 600 ml Net 576.67 ml Gastrointestinal Gastrointestinal (WDL): Within Defined Limits Abdomen Inspection: Soft, Rounded Bowel Sounds (All Quadrants): Hypoactive Palpation: Soft, No guarding, Nontender Last BM Date: 10/18/19 Passing Flatus: Yes GI Symptoms: None Last BM Date: 10/18/19 Christiano Scale Score: 20 Skin Integrity: Puncture Dietary Orders (From admission, onward) Start Ordered 10/18/19 1346 Adult Diet Restricted; Low Fat, Low Chol Diet effective now Question Answer Comment ([facility]) Diet type Restricted Fat / Sodium Restriction: Low Fat, Low Chol 10/18/19 1346 Impression: Pt with some nausea and decreased appetite since admit. Nausea is not resolved. No issues with NVD.Tolerating PO intakes well. Pt is consuming 90-100% of meals, snacks at bedside. Pt reports 6# unintentional wt loss a few weeks prior to admit, wt now stable. NUTRITION DIAGNOSIS Nutrition Diagnosis 1: No nutrition issue at this time INTERVENTION Pt denied need for diet educations, pt is aware of low fat/low cholesterol diet and is ready to start to make changes in diet. Encourage healthy eating/snacks and limit sweets/fat/sodium, pt is aware. Encourage pt not to skip meals at home. Encourage PO at least 75% of meals and healthy snacks between if needed. GOALS / MONITORING: Goals: Oral intake to meet 75% estimated nutritional needs by next assessment, Adequate nutrition to meet estimated needs by next assessment Monitoring and Evaluation: Labs, Weight changes, PO intake Katharine Ramirez RD BUSINESS OBJECTS CONSULTANT * Azar Ramírez MD - 10/19/2019 12:00 AM CST Requesting Physician Consult requested by Dr. Nanci Giron. Reason for consultation Syncope. History Patient is a 73-year-old woman who has a history of stenosis of vertebral arteries and stenosis of left carotid and recurrent presyncopal episodes. 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 She was admitted to vascular surgery and seen by Neurology. She did not have a full stroke. The patient is feeling better following her syncopal episode, but has underwent evaluation and was found to have no coronary artery disease. She does not have dyspnea on exertion with activity, chest pain or radiation thereof. She can only climb 1 flight of stairs from the basement to the main level without getting short of breath though. She endorses smoking a pack or a pack and a half of cigarettes for over 25 years. She has got a family history of coronary disease with a myocardial infarction in her grandmother. Her syncopal episode was temporary. She has had a history of ischemic embolic stroke 07/04/2016 reportedly by the chart due to embolization of her cerebral artery. She has got degenerative disk disease. She has got a family history of stroke in her father and heart disease in her father and mother. Social History She smokes as noted above 25 years pack to pack and half a day. No heavy alcohol. Review of Systems No GI or symptoms. No neurologic or psychiatric abnormalities. The rest of her 14 systems were reviewed and were negative. Physical Exam Her blood pressure is 173/43. Heart rate is 57. She is breathing 20 a minute. Temperature is 36.7. She is alert and oriented x3 in appropriate mood. Affect is normal. Mood is appropriate. Equal arm strength and leg strength bilaterally without any focal neurologic deficits. Lung corcoran are clear. Heart without murmurs, gallops, or rub. Abdomen is soft and nontender with positive bowel sounds. Shehas got no pedal edema or signs of impending distal vascular ischemia. No obvious skin ulcers in the exposed areas. No palpable lymph nodes in her neck. I reviewed her CT scan of the head and neck and looked at the images myself. 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 I reviewed her cardiac catheterization and looked at the images myself. She has got normal distribution of the coronary arteries without any significant occlusive disease. Impression Ms. 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 I think she would be a good candidate for aorta to innominate bypass. Obviously she is not at0% risk of stroke given that she has had atherosclerosis throughout her tree, but we would try to find a soft spot to do a proximal anastomosis prior to the distal anastomosis of the distal innominate artery or bifurcation point. I will discuss timing with Dr. Giron and the case in general in regard to revascularization. Job ID/VF Job ID: [id number] BUSINESS OBJECTS CONSULTANT documented in this encounter Nursing Notes * Erlin Orozco, RN - 10/21/2019 4:57 PM CST Patient arrival to [facility] via bed postop Aorto-Innominate bypass. Arrives intubated an sedated, converted to ICU level of care, critical hook ups completed and OR/ICU hand off completed with all questions answered. Orders reviewed, labs drawn. Will monitor closely. Head to toe skin assessment completed on pt, allevyn to coccyx as well as EPC cream applied. Pillowapplied beneath elbows and bony prominences, bilateral heels elevated with pillows as well. Will turn pt every two hours per ICU protocol as tolerated per pt vital signs. All exceptions noted per ICUcomplex assessment flow sheet. BUSINESS OBJECTS CONSULTANT * Sarah Velasco RN - 10/18/2019 2:50 PM CST Patient blood pressures elevated, most recent at 1445 is 189/53. Team notified. Stated they are ok with pressures in the 180s and to notify them if pressures are over 200. Will continue to monitor BUSINESS OBJECTS CONSULTANT documented in this encounter Miscellaneous Notes * Plan of Care - Johnny Peterson RN - 10/27/2019 7:10 AM CST Goals: Adequate for discahrge Summary: Problem: Lack of Knowledge: Goal: Ability to state ways to decrease the risk of falls will improve Outcome: Progressing Problem: Safety: Goal: Will remain free from falls Outcome: Progressing Goal: Will remain free from injury from falls Outcome: Progressing Goal: Will remain free from falls and injury in home environment Outcome: Progressing Problem: Activity: Goal: Risk for activity intolerance will decrease Outcome: Progressing Goal: Will verbalize the importance of balancing activity with adequate rest periods Outcome: Progressing Problem: Cardiac: Goal: Ability to maintain an adequate cardiac output will improve Outcome: Progressing Goal: Hemodynamic stability will improve Outcome: Progressing Problem: Lack of Knowledge: Goal: Family's and patient's knowledge of disease or condition will improve Outcome: Progressing Goal: Family's and patient's knowledge of the prescribed therapeutic regimen will improve Outcome: Progressing Problem: Nutritional: Goal: Ability to identify appropriate dietary choices will improve Outcome: Progressing Problem: Physical Regulation: Goal: Complications related to the disease process, condition or treatment will be avoided or minimized Outcome: Progressing Goal: Diagnostic test results will improve Outcome: Progressing Problem: Self-Concept: Goal: Ability to identify strategies to decrease anxiety will improve Outcome: Progressing Goal: Ability to verbalize feelings about condition will improve Outcome: Progressing Problem: Sensory: Goal: Expressions of feelings of enhanced comfort will increase Outcome: Progressing Goal: Pain level will decrease Outcome: Progressing Problem: Health Behavior: Goal: Understanding of discharge needs will improve Outcome: Progressing Problem: Activity: Goal: Mobility will improve Outcome: Progressing Problem: Lack of Knowledge: Goal: Understanding of ways to prevent future skin breakdown will improve Outcome: Progressing Goal: Ability to identify appropriate dietary choices will improve Outcome: Progressing Problem: Nutritional: Goal: Dietary intake will improve Outcome: Progressing Goal: Ability to maintain a balanced intake and output will improve Outcome: Progressing Problem: Skin Integrity: Goal: Risk for impaired skin integrity will decrease Outcome: Progressing Goal: Ability to demonstrate warm and dry skin will improve Outcome: Progressing Goal: Circulation will improve to fullest extent possible Outcome: Progressing BUSINESS OBJECTS CONSULTANT * Plan of Care - Mimi Mchugh RN - 10/27/2019 3:18 AM CST Goals: Clinical Goals for the Shift: sleep hygiene,pain control Summary: Pt slightly irritable, but still calm. Continues to complain of small amount of discomfortat incision sights, but moderate chronic pain which she had previous to admission. Disagreement with roommate, spoken to by charge nurse, both pts amicable, frequent rounding on both. BUSINESS OBJECTS CONSULTANT * Plan of Mona - Margaret García PTA - 10/26/2019 9:55 AM CST Problem: Mobility Goal: STG - Patient will ambulate Description: 200ft with LRAD and SBA, continuously Outcome: Progressing Problem: Transfers Goal: STG - Patient will transfer sit to and from stand Description: SBA with LRAD Outcome: Progressing BUSINESS OBJECTS CONSULTANT * Plan of Care - Nilda Sanchez RN - 10/26/2019 9:46 AM CST Problem: Establish a safe discharge Goal: Implement follow up with appropriate MD/team, family support ?? Report per DCAM: Impression: Had aorto to right axillary and aorto to bilateral carotid bypasson 10/21/19. Pain meds to be adjusted for pain control. Referrals: none at this time Support: spouse Transportation: spouse F/U Appt: Not yet made ADD: 10/28/19 Case Management will follow for planning and referrals as needed. BUSINESS OBJECTS CONSULTANT * Plan of Care - Johnny Peterson RN - 10/26/2019 7:04 AM CST Goals: Pain control and free water 1000ml restriction Summary: Problem: Lack of Knowledge: Goal: Ability to state ways to decrease the risk of falls will improve Outcome: Progressing Problem: Safety: Goal: Will remain free from falls Outcome: Progressing Goal: Will remain free from injury from falls Outcome: Progressing Goal: Will remain free from falls and injury in home environment Outcome: Progressing Problem: Activity: Goal: Risk for activity intolerance will decrease Outcome: Progressing Goal: Will verbalize the importance of balancing activity with adequate rest periods Outcome: Progressing Problem: Cardiac: Goal: Ability to maintain an adequate cardiac output will improve Outcome: Progressing Goal: Hemodynamic stability will improve Outcome: Progressing Problem: Lack of Knowledge: Goal: Family's and patient's knowledge of disease or condition will improve Outcome: Progressing Goal: Family's and patient's knowledge of the prescribed therapeutic regimen will improve Outcome: Progressing Problem: Nutritional: Goal: Ability to identify appropriate dietary choices will improve Outcome: Progressing Problem: Physical Regulation: Goal: Complications related to the disease process, condition or treatment will be avoided or minimized Outcome: Progressing Goal: Diagnostic test results will improve Outcome: Progressing Problem: Self-Concept: Goal: Ability to identify strategies to decrease anxiety will improve Outcome: Progressing Goal: Ability to verbalize feelings about condition will improve Outcome: Progressing Problem: Sensory: Goal: Expressions of feelings of enhanced comfort will increase Outcome: Progressing Goal: Pain level will decrease Outcome: Progressing Problem: Health Behavior: Goal: Understanding of discharge needs will improve Outcome: Progressing Problem: Activity: Goal: Mobility will improve Outcome: Progressing Problem: Lack of Knowledge: Goal: Understanding of ways to prevent future skin breakdown will improve Outcome: Progressing Goal: Ability to identify appropriate dietary choices will improve Outcome: Progressing Problem: Nutritional: Goal: Dietary intake will improve Outcome: Progressing Goal: Ability to maintain a balanced intake and output will improve Outcome: Progressing Problem: Skin Integrity: Goal: Risk for impaired skin integrity will decrease Outcome: Progressing Goal: Ability to demonstrate warm and dry skin will improve Outcome: Progressing Goal: Circulation will improve to fullest extent possible Outcome: Progressing BUSINESS OBJECTS CONSULTANT * Plan of Care - Erica Griffin RN - 10/26/2019 2:22 AM CST Problem: Lack of Knowledge: Goal: Ability to state ways to decrease the risk of falls will improve Outcome: Progressing Problem: Safety: Goal: Will remain free from falls Outcome: Progressing Goal: Will remain free from injury from falls Outcome: Progressing Goal: Will remain free from falls and injury in home environment Outcome: Progressing Problem: Activity: Goal: Risk for activity intolerance will decrease Outcome: Progressing Goal: Will verbalize the importance of balancing activity with adequate rest periods Outcome: Progressing Problem: Cardiac: Goal: Ability to maintain an adequate cardiac output will improve Outcome: Progressing Goal: Hemodynamic stability will improve Outcome: Progressing Problem: Lack of Knowledge: Goal: Family's and patient's knowledge of disease or condition will improve Outcome: Progressing Goal: Family's and patient's knowledge of the prescribed therapeutic regimen will improve Outcome: Progressing Problem: Nutritional: Goal: Ability to identify appropriate dietary choices will improve Outcome: Progressing Problem: Physical Regulation: Goal: Complications related to the disease process, condition or treatment will be avoided or minimized Outcome: Progressing Goal: Diagnostic test results will improve Outcome: Progressing Problem: Self-Concept: Goal: Ability to identify strategies to decrease anxiety will improve Outcome: Progressing Goal: Ability to verbalize feelings about condition will improve Outcome: Progressing Problem: Sensory: Goal: Expressions of feelings of enhanced comfort will increase Outcome: Progressing Goal: Pain level will decrease Outcome: Progressing Problem: Health Behavior: Goal: Understanding of discharge needs will improve Outcome: Progressing Problem: Activity: Goal: Mobility will improve Outcome: Progressing Problem: Lack of Knowledge: Goal: Understanding of ways to prevent future skin breakdown will improve Outcome: Progressing Goal: Ability to identify appropriate dietary choices will improve Outcome: Progressing Problem: Nutritional: Goal: Dietary intake will improve Outcome: Progressing Goal: Ability to maintain a balanced intake and output will improve Outcome: Progressing Problem: Skin Integrity: Goal: Risk for impaired skin integrity will decrease Outcome: Progressing Goal: Ability to demonstrate warm and dry skin will improve Outcome: Progressing Goal: Circulation will improve to fullest extent possible Outcome: Progressing Goals: Clinical Goals for the Shift: stable viatal signs stransfer Summary: pt remains safe and free of falls, pt non weight bearing on arms/chest, stable vitals, tele BUSINESS OBJECTS CONSULTANT * Plan of Mona - Erlin Orozco RN - 10/25/2019 7:49 AM CST Goals: Clinical Goals for the Shift: Pain control, pulmonary hygiene, VSS transfer to floor Problem: Lack of Knowledge: Goal: Ability to state ways to decrease the risk of falls will improve Outcome: Progressing Problem: Safety: Goal: Will remain free from falls Outcome: Progressing Goal: Will remain free from injury from falls Outcome: Progressing Goal: Will remain free from falls and injury in home environment Outcome: Progressing Problem: Activity: Goal: Risk for activity intolerance will decrease Outcome: Progressing Goal: Will verbalize the importance of balancing activity with adequate rest periods Outcome: Progressing Problem: Cardiac: Goal: Ability to maintain an adequate cardiac output will improve Outcome: Progressing Goal: Hemodynamic stability will improve Outcome: Progressing Problem: Lack of Knowledge: Goal: Family's and patient's knowledge of disease or condition will improve Outcome: Progressing Goal: Family's and patient's knowledge of the prescribed therapeutic regimen will improve Outcome: Progressing Problem: Nutritional: Goal: Ability to identify appropriate dietary choices will improve Outcome: Progressing Problem: Physical Regulation: Goal: Complications related to the disease process, condition or treatment will be avoided or minimized Outcome: Progressing Goal: Diagnostic test results will improve Outcome: Progressing Problem: Self-Concept: Goal: Ability to identify strategies to decrease anxiety will improve Outcome: Progressing Goal: Ability to verbalize feelings about condition will improve Outcome: Progressing Problem: Sensory: Goal: Expressions of feelings of enhanced comfort will increase Outcome: Progressing Goal: Pain level will decrease Outcome: Progressing Problem: Health Behavior: Goal: Understanding of discharge needs will improve Outcome: Progressing Problem: Activity: Goal: Mobility will improve Outcome: Progressing Problem: Lack of Knowledge: Goal: Understanding of ways to prevent future skin breakdown will improve Outcome: Progressing Goal: Ability to identify appropriate dietary choices will improve Outcome: Progressing Problem: Nutritional: Goal: Dietary intake will improve Outcome: Progressing Goal: Ability to maintain a balanced intake and output will improve Outcome: Progressing Problem: Skin Integrity: Goal: Risk for impaired skin integrity will decrease Outcome: Progressing Goal: Ability to demonstrate warm and dry skin will improve Outcome: Progressing Goal: Circulation will improve to fullest extent possible Outcome: Progressing BUSINESS OBJECTS CONSULTANT * Plan of Care - Aparna Gan RN - 10/25/2019 2:26 AM CST Goals: Clinical Goals for the Shift: Pain control, pulmonary hygiene, VSS Summary: Patient has had adequate pain control with oxycodone, able to take deep breathe and cough,VSS throughout entire shift BUSINESS OBJECTS CONSULTANT * Assessment & Plan Note - Mario House MD - 10/24/2019 11:46 PM SAP BUSINESS OBJECTS CONSULTANT Associated Problem(s): Chronic back pain complicated by acute surgical pain - APAP sched, transitioned to PO oxy 10/23, dronabinol 2.5 BID AC - Patient uses THC at home for pain, dronabinol significantly improved symptoms. - Lidocaine drip discontinued 10/24 BUSINESS OBJECTS CONSULTANT BUSINESS OBJECTS CONSULTANT * Assessment & Plan Note - Mario House MD - 10/24/2019 11:45 PM SAP BUSINESS OBJECTS CONSULTANT Associated Problem(s): Status post carotid surgery - S/P 10/21 aorta -> R axillary bypass and asc aorta + R + L common carotid bypass - Continue to monitor closely for signs of cerebral hyperperfusion syndrome - MAP >65 - No signs of headache or focal neurologic deficits BUSINESS OBJECTS CONSULTANT * Assessment & Plan Note - Mario House MD - 10/24/2019 11:45 PM SAP BUSINESS OBJECTS CONSULTANT Associated Problem(s): Acute blood loss anemia - Hgb 7.1 -> 10.3 after 1U PRBC 10/21 - hgb stable since BUSINESS OBJECTS CONSULTANT BUSINESS OBJECTS CONSULTANT * Assessment & Plan Note - Mario House MD - 10/24/2019 11:44 PM SAP BUSINESS OBJECTS CONSULTANT Associated Problem(s): Acute hypoxemic respiratory failure (HCC) (Resolved 11/01/2019) - Extubated on 10/21, transitioned to NC - Placed on Optiflow 10/23 (40L and 40% FiO2), goal SpO2 >92, weaned to NC on 10/24 Continue mobility and PAP treatments as necessary BUSINESS OBJECTS CONSULTANT BUSINESS OBJECTS CONSULTANT BUSINESS OBJECTS CONSULTANT BUSINESS OBJECTS CONSULTANT * Assessment & Plan Note - Mario House MD - 10/24/2019 11:43 PM SAP BUSINESS OBJECTS CONSULTANT Associated Problem(s): Labile hypertension (Resolved 08/22/2024) Currently hypotensive but initially hypertensive in OR. Will likely need restarting of his anti-hypertensives once acute post surgical hemodynamics stabilize. - While standing 10/22 afternoon, became hpotensive -> started on levo transiently, sat down and off pressors and back on nicardipine - 10/23 Increased coreg to 25 BID for SBP <120 BUSINESS OBJECTS CONSULTANT BUSINESS OBJECTS CONSULTANT * Subjective & Objective - Mario House MD - 10/24/2019 11:40 PM SAP BUSINESS OBJECTS CONSULTANT CT ICU Daily Progress Shifts: MD Shift Options: CTI PM 1 Subjective Patient is a 73 y.o. 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 Ramírez and Bree.?? Interval History: Discontinued Lidocaine drip Decreased Coreg to 12.5 mg BID Lasix 40 mg given Weaned optiflow to NC Removed A line Indigestion: TUMS and GI cocktail for heart burn, unchanged EKG added docusate to bowel regimen Objective Medications: Scheduled Meds:acetaminophen, 1,000 mg, oral, Q6H REID Or acetaminophen, 1,000 mg, feeding tube, Q6H REID Or acetaminophen, 650 mg, rectal, Q6H REID aspirin, 325 mg, oral, Daily atorvastatin, 80 mg, oral, Nightly buPROPion XL, 150 mg, oral, Daily carvediloL, 12.5 mg, oral, BID docusate sodium, 100 mg, oral, BID dronabinol, 2.5 mg, oral, BID AC (lunch, dinner) heparin, 5,000 Units, subcutaneous, Q8H REID insulin lispro, 1-3 Units, subcutaneous, Q4H REID montelukast, 10 mg, oral, Nightly polyethylene glycol, 17 g, oral, BID senna, 2 tablet, oral, BID sodium chloride 0.9%, 0.5-20 mL, intra-catheter, Q8H REID Continuous Infusions:Lactated Ringer's, 30 mL/hr, Last Rate: Stopped (10/24/19 1100) sodium chloride 0.9%, 6 mL/hr, Last Rate: 3 mL/hr (10/24/19 1900) Vitals: Temp: [36.3 ??C (97.3 ??F)-37.5 ??C (99.5 ??F)] 36.7 ??C (98.1 ??F) Pulse: [75-90] 79 BP: (96-160)/(44-67) 139/51 Resp: [13-31] 17 SpO2: [90 %-100 %] 94 % Arterial Line BP: (84-121)/(37-54) 121/44 FiO2 (%): [40 %-50 %] 40 % Fluid balance: I/O this shift: In: 453 [P.O.:450; I.V.:3] Out: 245 [Urine:245] Intake/Output Summary (Last 24 hours) at 10/24/2019 2340 Last data filed at 10/24/2019 2300 Gross per 24 hour Intake 1265.14 ml Output 1440 ml Net -174.86 ml Vent settings: FiO2 (%): 40 % (10/24 1000) Hemodynamic parameters: PAP: -- CVP: -- PCWP: -- CO: -- CI: -- SVO2: -- Pacemaker Overdrive Pacing: -- Cardiac Rhythm: Normal sinus rhythm (10/24 2299) Pacer Mode: -- Physical exam: General:??Obese female,??laying in bed comfortably Ear/Nose/Throat:??NCAT, NC in place Lungs:??clear to auscultation bilaterally Chest:??surgical incisions on upper chest c/d/i with dermabond, chest tubes with minimal serosanguinous output Abdomen:??soft non tender non distended Extremities:??warm and well perfused Neurologic:??Moves all extremities to command,??A+O x4 Psych: Appropriate mood and affect ?? Laboratory data: Recent Labs Lab Units 10/24/1913410/22/19 2350 10/22/19 1137 WBC K/cumm 10.0* 15.8* 15.1* HEMOGLOBIN g/dL 8.0* 9.2* 10.1* HEMATOCRIT % 23.0* 26.9* 29.8* PLATELETS K/cumm 151 169 207 Recent Labs Lab Units 10/24/19 17210/24/19 01310/22/19 2350 SODIUM mmol/L 129* 131* 133* POTASSIUM PLASMA mmol/L 4.0 3.5 4.2 CHLORIDE mmol/L 94* 99 104 CO2 mmol/L 28 26 22 BUN SERUM mg/dL 27* 22 23 CREATININE mg/dL 1.09 1.01 1.05 CALCIUM mg/dL 8.7 8.2* 8.6 Recent Labs Lab Units 10/21/19 17210/18/19 0102 PROTIME (PT) sec 15.6* 11.2 INR 1.4* 1.0 APTT sec 27 33 Recent Labs Lab Units 10/21/19 1847 10/21/19 1729 10/21/19 1551 PH ART 7.34* 7.33* 7.27* PCO2 ART mmHg 38 38 -- PO2 ART mmHg 161* 156* -- PO2 ARTERIAL POC mmHg -- -- 286* BASE EXC ART mmol/L -5 -6 -- Radiology/Diagnostic Review CXR: Stable to slightly improved atelectasis and unchanged small left pleural effusion BUSINESS OBJECTS CONSULTANT BUSINESS OBJECTS CONSULTANT * Plan of Care - Angie Arrington RRT - 10/24/2019 9:06 PM CST Medical Conditions Diagnosis ??? Dizziness ??? Stenosis of brachiocephalic artery (CMS/HCC) ??? Adiposity ??? Benign hypertension ??? Heart murmur ??? Non-specific colitis ??? Tobacco dependence in remission ??? Orthostatic hypotension ??? Mitral valve insufficiency ??? Carotid artery disease (CMS/HCC) ??? Dyslipidemia ??? Aortic valve insufficiency ??? Stenosis of carotid artery ??? History of ischemic left MCA stroke ??? Labile hypertension ??? Syncope and collapse ??? Chronic back pain complicated by acute surgical pain ??? Acute blood loss anemia ??? Status post carotid surgery ??? Acute hypoxemic respiratory failure (CMS/HCC) Impression: Patient ordered on EZ-PAP PEP therapy Q6 hours. Risk/patient assessment indicates incentive spirometry and Acapella. Plan: Transition from EZ-PAP to Acapella. Continue to monitor for changes in bronchial hygiene status and adjust treatment appropriately. BUSINESS OBJECTS CONSULTANT * Plan of Care - Yessi Hill RN - 10/24/2019 4:07 PM CST [facility] Reviewed previous case management notes. Problem: Establish a safe discharge Goal: Implement follow up with appropriate MD/team, family support Report per DCAM: Impression: Had aorto to right axillary and aorto to bilateral carotid bypasson 10/21/19. On optiflow, d/c nicardipine gtt Referrals: none at this time Support: spouse Transportation: spouse F/U Appt: Not yet made ADD: 10/27/19 Case Management will follow for planning and referrals as needed. BUSINESS OBJECTS CONSULTANT * Plan of Care - Hawa Jean - 10/24/2019 3:05 PM CST Problem: Mobility Goal: STG - Patient will ambulate Description: 200ft with LRAD and SBA, continuously Outcome: Progressing Problem: Transfers Goal: STG - Patient will transfer sit to and from stand Description: SBA with LRAD Outcome: Progressing Cosigned by Zakiya Ceballos, PT at 10/24/2019 3:16 PM SAP BUSINESS OBJECTS CONSULTANT BUSINESS OBJECTS CONSULTANT BUSINESS OBJECTS CONSULTANT * Plan of Care - Jody Kennedy RN - 10/23/2019 11:11 PM SAP BUSINESS OBJECTS CONSULTANT Problem: Lack of Knowledge: Goal: Ability to state ways to decrease the risk of falls will improve Outcome: Progressing Problem: Safety: Goal: Will remain free from falls Outcome: Progressing Goal: Will remain free from injury from falls Outcome: Progressing Goal: Will remain free from falls and injury in home environment Outcome: Progressing Problem: Activity: Goal: Risk for activity intolerance will decrease Outcome: Progressing Goal: Will verbalize the importance of balancing activity with adequate rest periods Outcome: Progressing Problem: Cardiac: Goal: Ability to maintain an adequate cardiac output will improve Outcome: Progressing Goal: Hemodynamic stability will improve Outcome: Progressing Problem: Lack of Knowledge: Goal: Family's and patient's knowledge of disease or condition will improve Outcome: Progressing Goal: Family's and patient's knowledge of the prescribed therapeutic regimen will improve Outcome: Progressing Problem: Nutritional: Goal: Ability to identify appropriate dietary choices will improve Outcome: Progressing Problem: Physical Regulation: Goal: Complications related to the disease process, condition or treatment will be avoided or minimized Outcome: Progressing Goal: Diagnostic test results will improve Outcome: Progressing Problem: Self-Concept: Goal: Ability to identify strategies to decrease anxiety will improve Outcome: Progressing Goal: Ability to verbalize feelings about condition will improve Outcome: Progressing Problem: Sensory: Goal: Expressions of feelings of enhanced comfort will increase Outcome: Progressing Goal: Pain level will decrease Outcome: Progressing Problem: Health Behavior: Goal: Understanding of discharge needs will improve Outcome: Progressing Problem: Activity: Goal: Mobility will improve Outcome: Progressing Problem: Lack of Knowledge: Goal: Understanding of ways to prevent future skin breakdown will improve Outcome: Progressing Goal: Ability to identify appropriate dietary choices will improve Outcome: Progressing Problem: Nutritional: Goal: Dietary intake will improve Outcome: Progressing Goal: Ability to maintain a balanced intake and output will improve Outcome: Progressing Problem: Skin Integrity: Goal: Risk for impaired skin integrity will decrease Outcome: Progressing Goal: Ability to demonstrate warm and dry skin will improve Outcome: Progressing Goal: Circulation will improve to fullest extent possible Outcome: Progressing Goals: Clinical Goals for the Shift: VSS, wean nicard as tolerated, pain control, sleep hygiene Summary: Pt remains stable, on nicardipine at 1, will wean as tolerated for systolics < 130. Pt's pain improving and pt sleeping. BUSINESS OBJECTS CONSULTANT * Assessment & Plan Note - Gasper Salgado MD - 10/23/2019 8:07 PM SAP BUSINESS OBJECTS CONSULTANT Associated Problem(s): Acute hypoxemic respiratory failure (HCC) (Resolved 11/01/2019) - Extubated on 10/21, transitioned to NC - Placed on Optiflow 10/23 (40L and 40% FiO2), goal SpO2 >92 BUSINESS OBJECTS CONSULTANT * Subjective & Objective - Gasper Salgado MD - 10/23/2019 8:06 PM SAP BUSINESS OBJECTS CONSULTANT CT ICU Daily Progress Shifts: Shift Options: CTI PM 1 Subjective Patient is a 73 y.o. 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 Raímrez and Bree.?? Interval History: - Placed on optiflow (40L, 40% FiO2) from nasal cannula. Patient denies subjective SOB - Increased coreg to 25 BID - Transitioned to oral pain meds today and dronabinol 2.5 mg BID AC added - Continues on nicard drip for SBP <120 and MAP >65 - Increased bowel regiment to 2 tab senna BID + miralax BID Objective Medications: Scheduled Meds:acetaminophen, 1,000 mg, oral, Q6H REID Or acetaminophen, 1,000 mg, feeding tube, Q6H REID Or acetaminophen, 650 mg, rectal, Q6H REID aspirin, 325 mg, oral, Daily atorvastatin, 80 mg, oral, Nightly buPROPion XL, 150 mg, oral, Daily carvediloL, 25 mg, oral, BID dronabinol, 2.5 mg, oral, BID AC (lunch, dinner) heparin, 5,000 Units, subcutaneous, Q8H REID insulin lispro, 1-3 Units, subcutaneous, Q4H REID montelukast, 10 mg, oral, Nightly polyethylene glycol, 17 g, oral, BID senna, 2 tablet, oral, BID sodium chloride 0.9%, 0.5-20 mL, intra-catheter, Q8H REID Continuous Infusions:Lactated Ringer's, 30 mL/hr, Last Rate: 10 mL/hr (10/23/19 2300) niCARdipine, 0.5-2.5 mcg/kg/min, Last Rate: Stopped (10/23/19 2346) sodium chloride 0.9%, 6 mL/hr, Last Rate: 3 mL/hr (10/23/19 2300) sodium chloride 0.9%, 1,000 mL Vitals: Temp: [37 ??C (98.6 ??F)-37.4 ??C (99.3 ??F)] 37.4 ??C (99.3 ??F) Pulse: [74-89] 74 Resp: [18-29] 20 SpO2: [87 %-97 %] 93 % Arterial Line BP: (112-157)/(35-52) 130/35 FiO2 (%): [40 %-60 %] 40 % Fluid balance: I/O this shift: In: 268.6 [P.O.:120; I.V.:148.6] Out: 665 [Urine:665] Intake/Output Summary (Last 24 hours) at 10/24/2019 0002 Last data filed at 10/23/2019 2300 Gross per 24 hour Intake 1899.7 ml Output 2045 ml Net -145.3 ml Vent settings: FiO2 (%): 40 % (10/23 2299) Hemodynamic parameters: PAP: -- CVP: 6 mmHg (10/23 1500) PCWP: -- CO: -- CI: -- SVO2: -- Pacemaker Overdrive Pacing: -- Cardiac Rhythm: Normal sinus rhythm (10/23 2299) Pacer Mode: -- Physical exam: General:??Obese female,??laying in bed comfortably Ear/Nose/Throat:??NCAT, optiflow in place Lungs:??clear to auscultation bilaterally Chest:??surgical incisions on upper chest c/d/i with dermabond, chest tubes with minimal serosanguinous output Abdomen:??soft non tender non distended Extremities:??warm and well perfused Neurologic:??Moves all extremities to command,??A+O x4 Psych: Appropriate mood and affect ?? Laboratory data: Recent Labs Lab Units 10/22/19234910/22/19 1137 10/22/19 0124 WBC K/cumm 15.8* 15.1* 10.3* HEMOGLOBIN g/dL 9.2* 10.1* 10.3* HEMATOCRIT % 26.9* 29.8* 30.2* PLATELETS K/cumm 169 207 154 Recent Labs Lab Units 10/22/19 23510/22/19 0124 10/21/19 1729 SODIUM mmol/L 133* 139 139 POTASSIUM PLASMA mmol/L 4.2 4.0 4.3 CHLORIDE mmol/L 104 110 113* CO2 mmol/L 22 21* 21* BUN SERUM mg/dL 23 19 13 CREATININE mg/dL 1.05 0.79 0.77 CALCIUM mg/dL 8.6 8.8 8.3* Recent Labs Lab Units 10/21/19 1729 10/18/19 0102 PROTIME (PT) sec 15.6* 11.2 INR 1.4* 1.0 APTT sec 27 33 Recent Labs Lab Units 10/21/19 1847 10/21/19 1729 10/21/19 1551 PH ART 7.34* 7.33* 7.27* PCO2 ART mmHg 38 38 -- PO2 ART mmHg 161* 156* -- PO2 ARTERIAL POC mmHg -- -- 286* BASE EXC ART mmol/L -5 -6 -- Radiology/Diagnostic Review CXR: Stable atelectasis and unchanged small left pleural effusion BUSINESS OBJECTS CONSULTANT BUSINESS OBJECTS CONSULTANT BUSINESS OBJECTS CONSULTANT * Assessment & Plan Note - Gasper Salgado MD - 10/23/2019 8:06 PM SAP BUSINESS OBJECTS CONSULTANT Associated Problem(s): Status post carotid surgery - S/P 10/21 aorta -> R axillary bypass and asc aorta + R + L common carotid bypass - Continue to monitor closely for signs of cerebral hyperperfusion syndrome - SBP <120 and MAP >65 - No signs of headache or focal neurologic deficits BUSINESS OBJECTS CONSULTANT BUSINESS OBJECTS CONSULTANT * Assessment & Plan Note - Gasper Salgado MD - 10/23/2019 8:05 PM SAP BUSINESS OBJECTS CONSULTANT Associated Problem(s): Acute blood loss anemia - Hgb 7.1 -> 10.3 after 1U PRBC 10/21 - hgb stable on 10/22 BUSINESS OBJECTS CONSULTANT * Assessment & Plan Note - Gasper Salgado MD - 10/23/2019 8:04 PM SAP BUSINESS OBJECTS CONSULTANT Associated Problem(s): Labile hypertension (Resolved 08/22/2024) Currently hypotensive but initially hypertensive in OR. [...] coreg to 25 BID for SBP <120 BUSINESS OBJECTS CONSULTANT * Assessment & Plan Note - Gasper Salgado MD - 10/23/2019 8:04 PM SAP BUSINESS OBJECTS CONSULTANT Associated Problem(s): Chronic back pain complicated by acute surgical pain - APAP sched, transitioned to PO oxy 10/23, dronabinol 2.5 BID AC, lido gtt - Patient uses THC at home for pain, dronabinol significantly improved symptoms. BUSINESS OBJECTS CONSULTANT * Plan of Care - Mandy Waddell RN - 10/23/2019 5:07 PM CST Problem: Lack of Knowledge: Goal: Ability to state ways to decrease the risk of falls will improve 10/23/20191706 by Mandy Waddell RN Outcome: Progressing 10/23/20191705 by Mandy Waddell RN Outcome: Progressing Problem: Safety: Goal: Will remain free from falls 10/23/20191706 by Mandy Waddell RN Outcome: Progressing 10/23/20191705 by Mandy Waddell RN Outcome: Progressing Goal: Will remain free from injury from falls 10/23/20191706 by Mandy Waddell RN Outcome: Progressing 10/23/20191705 by Mandy Waddell RN Outcome: Progressing Goal: Will remain free from falls and injury in home environment 10/23/20191706 by Mandy Waddell RN Outcome: Progressing 10/23/20191705 by Mandy Waddell RN Outcome: Progressing Problem: Activity: Goal: Risk for activity intolerance will decrease 10/23/20191706 by Mandy Waddell RN Outcome: Progressing 10/23/20191705 by Mandy Waddell RN Outcome: Progressing Goal: Will verbalize the importance of balancing activity with adequate rest periods 10/23/20191706 by Mandy Waddell RN Outcome: Progressing 10/23/2019 170 by Mandy Waddell RN Outcome: Progressing Problem: Cardiac: Goal: Ability to maintain an adequate cardiac output will improve 10/23/20191706 by Mandy Waddell RN Outcome: Progressing 10/23/20191705 by Mandy Waddell RN Outcome: Progressing Goal: Hemodynamic stability will improve 10/23/20191706 by Mandy Waddell RN Outcome: Progressing 10/23/20191705 by Mandy Waddell RN Outcome: Progressing Problem: Lack of Knowledge: Goal: Family's and patient's knowledge of disease or condition will improve 10/23/20191706 by Mandy Waddell RN Outcome: Progressing 10/23/20191705 by Mandy Waddell RN Outcome: Progressing Goal: Family's and patient's knowledge of the prescribed therapeutic regimen will improve 10/23/20191706 by Mandy Waddell RN Outcome: Progressing 10/23/20191705 by Mandy Waddell RN Outcome: Progressing Problem: Nutritional: Goal: Ability to identify appropriate dietary choices will improve 10/23/20191706 by Mandy Waddell RN Outcome: Progressing 10/23/20191705 by Mandy Waddell RN Outcome: Progressing Problem: Physical Regulation: Goal: Complications related to the disease process, condition or treatment will be avoided or minimized 10/23/20191706 by Mandy Waddell RN Outcome: Progressing 10/23/20191705 by Mandy Waddell RN Outcome: Progressing Goal: Diagnostic test results will improve 10/23/20191706 by Mandy Waddell RN Outcome: Progressing 10/23/20191705 by Mandy Waddell RN Outcome: Progressing Problem: Self-Concept: Goal: Ability to identify strategies to decrease anxiety will improve 10/23/20191706 by Mandy Waddell RN Outcome: Progressing 10/23/20191705 by Mandy Waddell RN Outcome: Progressing Goal: Ability to verbalize feelings about condition will improve 10/23/20191706 by Mandy Waddell RN Outcome: Progressing 10/23/20191705 by Mandy Waddell RN Outcome: Progressing Problem: Sensory: Goal: Expressions of feelings of enhanced comfort will increase 10/23/2019 170 by Mandy Waddell RN Outcome: Progressing 10/23/2019 1706 by Mandy Waddell RN Outcome: Progressing Goal: Pain level will decrease 10/23/2019 170 by Mandy Waddell RN Outcome: Progressing 10/23/2019 170 by Mandy Waddell RN Outcome: Progressing Problem: Health Behavior: Goal: Understanding of discharge needs will improve 10/23/2019 170 by Mandy Waddell RN Outcome: Progressing 10/23/2019 170 by Mandy Waddell RN Outcome: Progressing Problem: Activity: Goal: Mobility will improve 10/23/2019 170 by Mandy Waddell RN Outcome: Progressing 10/23/2019 170 by Mandy Waddell RN Outcome: Progressing Problem: Lack of Knowledge: Goal: Understanding of ways to prevent future skin breakdown will improve 10/23/2019 170 by Mandy Waddell RN Outcome: Progressing 10/23/2019 170 by Mandy Waddell RN Outcome: Progressing Goal: Ability to identify appropriate dietary choices will improve 10/23/2019 170 by Mandy Waddell RN Outcome: Progressing 10/23/2019 170 by Mandy Waddell RN Outcome: Progressing Problem: Nutritional: Goal: Dietary intake will improve 10/23/2019 170 by Mandy Waddell RN Outcome: Progressing 10/23/2019 170 by Mandy Waddell RN Outcome: Progressing Goal: Ability to maintain a balanced intake and output will improve 10/23/2019 170 by Mandy Waddell RN Outcome: Progressing 10/23/2019 170 by Mandy Waddell RN Outcome: Progressing Problem: Skin Integrity: Goal: Risk for impaired skin integrity will decrease 10/23/2019 170 by Mandy Waddell RN Outcome: Progressing 10/23/2019 170 by Mandy Waddell RN Outcome: Progressing Goal: Ability to demonstrate warm and dry skin will improve 10/23/2019 170 by Mandy Waddell RN Outcome: Progressing 10/23/2019 170 by Mandy Waddell RN Outcome: Progressing Goal: Circulation will improve to fullest extent possible 10/23/2019 170 by Mandy Waddell RN Outcome: Progressing 10/23/2019 1706 by Mandy Waddell RN Outcome: Progressing Goals: Clinical Goals for the Shift: wean nicadipine as toleated, SBP<140, MAP>65, pain control, oobtc Summary: Nicardipine unable to be weaned even with increasing dose of Coreg. Chronic back pain an issue, patient notified RN that she takes THC gummies at home for her back pain and orders received, will start Marinol this Pm.10mg Oxycodone given with slight reduction in back pain. Up to chair with2 assist, no hypotension or dizziness noted. Will monitor. BUSINESS OBJECTS CONSULTANT * Plan of Care - Darryl Fernandez RRT - 10/23/2019 10:03 AM CST Pt tolerated EZPAP well; pt was able to achieved a pressure of 15 on 8L with IS of 800; will continue to do tx as scheduled BUSINESS OBJECTS CONSULTANT * Subjective & Objective - Gasper Salgado MD - 10/22/2019 9:46 PM SAP BUSINESS OBJECTS CONSULTANT CT ICU Daily Progress Shifts: MD Shift Options: CTI PM 1 Subjective Patient is a 73 y.o. 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 Ramírez and Bree.?? Interval History: - Continues on Nasal cannula, no issues - Stable on nicardipine drip overnight, no pressors for SBP <120 - Re-ordered patient's home miralax and senna - No more hallucinations, pain well controlled on BUSINESS UNIT DIRECTOR + lido drip Objective Medications: Scheduled Meds:acetaminophen, 1,000 mg, oral, Q6H REID Or acetaminophen, 1,000 mg, feeding tube, Q6H REID Or acetaminophen, 650 mg, rectal, Q6H REID aspirin, 325 mg, oral, Daily atorvastatin, 80 mg, oral, Nightly buPROPion XL, 150 mg, oral, Daily [Held by Provider] carvediloL, 6.25 mg, oral, BID heparin, 5,000 Units, subcutaneous, Q8H [facility] insulin lispro, 1-3 Units, subcutaneous, Q4H [facility] montelukast, 10 mg, oral, Nightly [START ON 10/23/2019] polyethylene glycol, 17 g, oral, Daily senna, 1 tablet, oral, BID sodium chloride 0.9%, 0.5-20 mL, intra-catheter, Q8H [facility] Continuous Infusions:HYDROmorphone, Lactated Ringer's, 30 mL/hr, Last Rate: 20 mL/hr (10/22/192099) lidocaine, 0.75 mg/kg/hr ([place]), Last Rate: 0.75 mg/kg/hr (10/22/192099) niCARdipine, 0.5-2.5 mcg/kg/min, Last Rate: 0.5 mcg/kg/min (10/22/192124) norepinephrine, 0.01-2 mcg/kg/min, Last Rate: Stopped (10/22/191299) sodium chloride 0.9%, 6 mL/hr, Last Rate: 6 mL/hr (10/22/192099) sodium chloride 0.9%, 1,000 mL Vitals: Temp: [36.6 ??C (97.9 ??F)-37.2 ??C (99 ??F)] 37.2 ??C (99 ??F) Pulse: [65-86] 84 BP: (86-114)/(40-63) 114/63 Resp: [13-26] 18 SpO2: [89 %-97 %] 95 % Arterial Line BP: (58-176)/(34-61) 133/43 Fluid balance: I/O this shift: In: 111.3 [I.V.:111.3] Out: 190 [Urine:140; Chest Tube:50] Intake/Output Summary (Last 24 hours) at 10/22/20192145 Last data filed at 10/22/20192099 Gross per 24 hour Intake 2339.42 ml Output 1440 ml Net 899.42 ml Vent settings: Hemodynamic parameters: PAP: -- CVP: -- PCWP: -- CO: -- CI: -- SVO2: -- Pacemaker Overdrive Pacing: -- Cardiac Rhythm: Normal sinus rhythm (10/22 2099) Pacer Mode: -- Physical exam: General:??Obese female, laying in bed comfortably Ear/Nose/Throat:??NCAT, nasal cannula in place Lungs:??clear to auscultation bilaterally Chest:??dressings CDI, chest tubes with minimal serosanguinous output Abdomen:??soft non tender non distended Extremities:??warm and well perfused Pulses:??palpable radial pulses Neurologic:??Moves all extremities to command, A+O x4 Psych: Appropriate mood and affect Laboratory data: Recent Labs Lab Units 10/22/19 1137 10/22/19 0124 10/21/19 2220 WBC K/cumm 15.1* 10.3* 10.4* HEMOGLOBIN g/dL 10.1* 10.3* 10.3* HEMATOCRIT % 29.8* 30.2* 30.7* PLATELETS K/cumm 207 154 144* Recent Labs Lab Units 10/22/19 0124 10/21/19 1729 10/20/19 2302 SODIUM mmol/L 139 139 136 POTASSIUM PLASMA mmol/L 4.0 4.3 4.2 CHLORIDE mmol/L 110 113* 103 CO2 mmol/L 21* 21* 21* BUN SERUM mg/dL 19 13 15 CREATININE mg/dL 0.79 0.77 0.83 CALCIUM mg/dL 8.8 8.3* 9.6 Recent Labs Lab Units 10/21/19 1729 10/18/19 0102 PROTIME (PT) sec 15.6* 11.2 INR 1.4* 1.0 APTT sec 27 33 Recent Labs Lab Units 10/21/19 1847 10/21/19 1729 10/21/19 1551 PH ART 7.34* 7.33* 7.27* PCO2 ART mmHg 38 38 -- PO2 ART mmHg 161* 156* -- PO2 ARTERIAL POC mmHg -- -- 286* BASE EXC ART mmol/L -5 -6 -- Radiology/Diagnostic Review CXR: Stable atelectasis bilaterally with no pneumothorax. BUSINESS OBJECTS CONSULTANT * Assessment & Plan Note - Gasper Salgado MD - 10/22/2019 8:14 PM SAP BUSINESS OBJECTS CONSULTANT Associated Problem(s): Acute blood loss anemia - Hgb 7.1 -> 10.3 after 1U PRBC 10/21 - hgb stable on 10/22 BUSINESS OBJECTS CONSULTANT * Assessment & Plan Note - Gasper Salgado MD - 10/22/2019 8:14 PM SAP BUSINESS OBJECTS CONSULTANT Associated Problem(s): Chronic back pain complicated by acute surgical pain - APAP sched, BUSINESS UNIT DIRECTOR 0.2 q10m, lido gtt BUSINESS OBJECTS CONSULTANT * Assessment & Plan Note - Gasper Salgado MD - 10/22/2019 8:10 PM SAP BUSINESS OBJECTS CONSULTANT Associated Problem(s): Labile hypertension (Resolved 08/22/2024) Currently hypotensive but initially hypertensive in OR. Will likely need restarting of his anti-hypertensives once acute post surgical hemodynamics stabilize. - While standing 10/22 afternoon, became hpotensive -> started on levo transiently, sat down and off pressors and back on nicardipine - Currently on nicardipine gtt @ 0.5 on 10/22 P.M. for SBP <120 BUSINESS OBJECTS CONSULTANT * Assessment & Plan Note - Gasper Salgado MD - 10/22/2019 8:10 PM SAP BUSINESS OBJECTS CONSULTANT Associated Problem(s): Vertebrobasilar artery insufficiency (Deleted) - S/p aorto to right axillary and aorto to bilateral carotid bypass - Successfully extubated 10/21 P.M., continue q1h neurovasc checks - MAP>65 and SBP<120, off pressors since extubation, on nicardipine gtt At risk for cerebral hyperperfusion, if severe headache have pt sit up, make sure pressure is controlled and call vascular surgical team while ordering head CT - Daily ASA - q1h Neurovascular checks BUSINESS OBJECTS CONSULTANT * Plan of Care - Darryl Fernandez, AARTI - 10/22/2019 3:52 PM CST Pt tolerated EZPAP well; pt was able to achieve a pressure of 15 on 10L with IS of 750; will continue to do tx as scheduled BUSINESS OBJECTS CONSULTANT * Plan of Care - Suzi Zee, PT - 10/22/2019 2:17 PM CST Problem: Mobility Goal: STG - Patient will ambulate Description 200ft with LRAD and SBA, continuously Outcome: Progressing Problem: Transfers Goal: STG - Patient will transfer sit to and from stand Description SBA with LRAD Outcome: Progressing BUSINESS OBJECTS CONSULTANT * Plan of Care - Israel Alfredo RN - 10/22/2019 11:53 AM CST Problem: Lack of Knowledge: Goal: Ability to state ways to decrease the risk of falls will improve Outcome: Progressing Problem: Safety: Goal: Will remain free from falls Outcome: Progressing Goal: Will remain free from injury from falls Outcome: Progressing Goal: Will remain free from falls and injury in home environment Outcome: Progressing Problem: Activity: Goal: Risk for activity intolerance will decrease Outcome: Progressing Goal: Will verbalize the importance of balancing activity with adequate rest periods Outcome: Progressing Problem: Cardiac: Goal: Ability to maintain an adequate cardiac output will improve Outcome: Progressing Goal: Hemodynamic stability will improve Outcome: Progressing Problem: Lack of Knowledge: Goal: Family's and patient's knowledge of disease or condition will improve Outcome: Progressing Goal: Family's and patient's knowledge of the prescribed therapeutic regimen will improve Outcome: Progressing Problem: Nutritional: Goal: Ability to identify appropriate dietary choices will improve Outcome: Progressing Problem: Physical Regulation: Goal: Complications related to the disease process, condition or treatment will be avoided or minimized Outcome: Progressing Goal: Diagnostic test results will improve Outcome: Progressing Problem: Self-Concept: Goal: Ability to identify strategies to decrease anxiety will improve Outcome: Progressing Goal: Ability to verbalize feelings about condition will improve Outcome: Progressing Problem: Sensory: Goal: Expressions of feelings of enhanced comfort will increase Outcome: Progressing Goal: Pain level will decrease Outcome: Progressing Problem: Health Behavior: Goal: Understanding of discharge needs will improve Outcome: Progressing Problem: Activity: Goal: Mobility will improve Outcome: Progressing Problem: Lack of Knowledge: Goal: Understanding of ways to prevent future skin breakdown will improve Outcome: Progressing Goal: Ability to identify appropriate dietary choices will improve Outcome: Progressing Problem: Nutritional: Goal: Dietary intake will improve Outcome: Progressing Goal: Ability to maintain a balanced intake and output will improve Outcome: Progressing Problem: Skin Integrity: Goal: Risk for impaired skin integrity will decrease Outcome: Progressing Goal: Ability to demonstrate warm and dry skin will improve Outcome: Progressing Goal: Circulation will improve to fullest extent possible Outcome: Progressing Goals: Clinical Goals for the Shift: VSS, wean cardene, restart antihypertensives Summary: VS remain stable with epi wean, weaned cardene to off, started levo, will not start antihypertensives BUSINESS OBJECTS CONSULTANT * Plan of Care - Wesley Flores RRT - 10/22/2019 6:19 AM CST Pt is Able to Self Administer. Acapella with RN or family member is also helpful BUSINESS OBJECTS CONSULTANT * Plan of Care - Margaret Johnston RN - 10/22/2019 1:36 AM CST Problem: Lack of Knowledge: Goal: Ability to state ways to decrease the risk of falls will improve Outcome: Progressing Problem: Safety: Goal: Will remain free from falls Outcome: Progressing Goal: Will remain free from injury from falls Outcome: Progressing Goal: Will remain free from falls and injury in home environment Outcome: Progressing Problem: Activity: Goal: Risk for activity intolerance will decrease Outcome: Progressing Goal: Will verbalize the importance of balancing activity with adequate rest periods Outcome: Progressing Problem: Cardiac: Goal: Ability to maintain an adequate cardiac output will improve Outcome: Progressing Goal: Hemodynamic stability will improve Outcome: Progressing Problem: Lack of Knowledge: Goal: Family's and patient's knowledge of disease or condition will improve Outcome: Progressing Goal: Family's and patient's knowledge of the prescribed therapeutic regimen will improve Outcome: Progressing Problem: Nutritional: Goal: Ability to identify appropriate dietary choices will improve Outcome: Progressing Problem: Physical Regulation: Goal: Complications related to the disease process, condition or treatment will be avoided or minimized Outcome: Progressing Goal: Diagnostic test results will improve Outcome: Progressing Problem: Self-Concept: Goal: Ability to identify strategies to decrease anxiety will improve Outcome: Progressing Goal: Ability to verbalize feelings about condition will improve Outcome: Progressing Problem: Sensory: Goal: Expressions of feelings of enhanced comfort will increase Outcome: Progressing Goal: Pain level will decrease Outcome: Progressing Problem: Health Behavior: Goal: Understanding of discharge needs will improve Outcome: Progressing Goals: Clinical Goals for the Shift: Patient's goal for the duration of the shift is to extubate, maintainhemodynamic stability while weaning Pressors, control pain, and gain quality rest. Summary: Patient is progressing in all areas. BUSINESS OBJECTS CONSULTANT * Subjective & Objective - Gasper Salgado MD - 10/22/2019 12:49 AM SAP BUSINESS OBJECTS CONSULTANT CT ICU Daily Progress Shifts: MD Shift Options: 8300 PM 1 Subjective Patient is a 73 y.o. 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 Ramírez and Bree. Interval History: Successfully extubated to nasal cannula early in the evening. Post extubation, patient off all pressors and in pain + hypertensive. Started on nicardipine drip for HTN, and APAP q6h sched, oxy 10 q3h, lidocaine gtt, and dilaudid for breakthrough pain. SBP goal <120 due to concern for hyperperfusion syndrome. Patient denies any headache and endorses right shoulder and neck pain, which is more intense but similar in character to her chronic neck pain. Objective Medications: Scheduled Meds:acetaminophen, 1,000 mg, oral, Q6H REID Or acetaminophen, 1,000 mg, feeding tube, Q6H REID Or acetaminophen, 650 mg, rectal, Q6H REID aspirin, 325 mg, oral, Daily insulin lispro, 1-3 Units, subcutaneous, Q4H REID sodium chloride 0.9%, 0.5-20 mL, intra-catheter, Q8H REID Continuous Infusions:lidocaine, 1.5 mg/kg/hr ([place]) niCARdipine, 0.5-2.5 mcg/kg/min, Last Rate: 2.5 mcg/kg/min (10/22/19) norepinephrine, 0.01-2 mcg/kg/min, Last Rate: Stopped (10/21/191929) sodium chloride 0.9%, 1,000 mL Vitals: Temp: [36.3 ??C (97.3 ??F)-36.8 ??C (98.2 ??F)] 36.8 ??C (98.2 ??F) Pulse: [65-87] 86 BP: (158-206)/(55-65) 206/63 Resp: [8-34] 21 SpO2: [89 %-100 %] 93 % Arterial Line BP: (106-176)/(42-62) 149/47 FiO2 (%): [40 %] 40 % Fluid balance: I/O this shift: In: 840.6 [P.O.:100; I.V.:320.6; Blood:350; IV Piggyback:70] Out: 415 [Urine:185; Emesis/NG output:50; Chest Tube:180] Intake/Output Summary (Last 24 hours) at 10/22/2019 0050 Last data filed at 10/22/2019 0000 Gross per 24 hour Intake 3198.9 ml Output 1480 ml Net 1718.9 ml Vent settings: Adult Vent Mode: Pressure support Ventilation FiO2 (%): 40 % Pressure Support (cm H2O): 10 cm H20 (10/21 1811-10/21 1929) Hemodynamic parameters: PAP: -- CVP: -- PCWP: -- CO: -- CI: -- SVO2: -- Pacemaker Overdrive Pacing: -- Cardiac Rhythm: Normal sinus rhythm (10/22) Pacer Mode: -- Physical exam: General: Obese female, towel on her forehead and towel behind neck Ear/Nose/Throat: NCAT, nasal cannula in place Lungs: clear to auscultation bilaterally Chest: dressings CDI, chest tubes with minimal serosanguinous output Abdomen: soft non tender non distended Extremities: warm and well perfused Pulses: palpable radial pulses Neurologic: Moves all extremities to command, A+O x4 Psych: Appropriate mood and affect Laboratory data: Recent Labs Lab Units 10/21/19 2220 10/21/19 1729 10/21/19 1551 10/20/19 2302 WBC K/cumm 10.4* 13.8* -- -- 5.9 HEMOGLOBIN, POC g/dL -- -- 10.8* < > -- HEMOGLOBIN g/dL 10.3* 7.1* -- -- 12.4 HEMATOCRIT % 30.7* 21.8* -- -- 38.0 HEMATOCRIT POC % -- -- 32.0* < > -- PLATELETS K/cumm 144* 144* -- -- 231 < > = values in this interval not displayed. Recent Labs Lab Units 10/21/19172810/20/19 2302 10/20/19 0036 SODIUM mmol/L 139 136 138 POTASSIUM PLASMA mmol/L 4.3 4.2 4.0 CHLORIDE mmol/L 113* 103 105 CO2 mmol/L 21* 21* 24 BUN SERUM mg/dL 13 15 19 CREATININE mg/dL 0.77 0.83 0.85 CALCIUM mg/dL 8.3* 9.6 9.0 Recent Labs Lab Units 10/21/19 1729 10/18/19 0102 PROTIME (PT) sec 15.6* 11.2 INR 1.4* 1.0 APTT sec 27 33 Recent Labs Lab Units 10/21/19 1847 10/21/19 1729 10/21/19 1551 PH ART 7.34* 7.33* 7.27* PCO2 ART mmHg 38 38 -- PO2 ART mmHg 161* 156* -- PO2 ARTERIAL POC mmHg -- -- 286* BASE EXC ART mmol/L -5 -6 -- BUSINESS OBJECTS CONSULTANT BUSINESS OBJECTS CONSULTANT * Assessment & Plan Note - Gasper Salgado MD - 10/21/2019 11:05 PM SAP BUSINESS OBJECTS CONSULTANT Associated Problem(s): Acute blood loss anemia - Hgb 7.1 -> 10.3 after 1U PRBC BUSINESS OBJECTS CONSULTANT * Assessment & Plan Note - Gasper Salgado MD - 10/21/2019 10:12 PM SAP BUSINESS OBJECTS CONSULTANT Associated Problem(s): Chronic back pain complicated by acute surgical pain - APAP sched, 10 oxy q3h, dilaudid breakthrough pain, lido gtt BUSINESS OBJECTS CONSULTANT BUSINESS OBJECTS CONSULTANT * Assessment & Plan Note - Gasper Salgado MD - 10/21/2019 10:12 PM SAP BUSINESS OBJECTS CONSULTANT Associated Problem(s): Labile hypertension (Resolved 08/22/2024) Currently hypotensive but initially hypertensive in OR. Will likely need restarting of his anti-hypertensives once acute post surgical hemodynamics stabilize. - Currently on nicardipine gtt @ 2.5 on 15 A.M. for SBP <120 BUSINESS OBJECTS CONSULTANT BUSINESS OBJECTS CONSULTANT * Assessment & Plan Note - Gasper Salgado MD - 10/21/2019 9:55 PM SAP BUSINESS OBJECTS CONSULTANT Associated Problem(s): Vertebrobasilar artery insufficiency (Deleted) - S/p aorto to right axillary and aorto to bilateral carotid bypass - Successfully extubated 2/14 P.M., continue q1h neurovasc checks - MAP>65 and SBP<120, off pressors since extubation, on nicardipine gtt At risk for cerebral hyperperfusion, if severe headache have pt sit up, make sure pressure is controlled and call vascular surgical team while ordering head CT - Daily ASA - q1h Neurovascular checks BUSINESS OBJECTS CONSULTANT BUSINESS OBJECTS CONSULTANT * Plan of Care - Camron Coburn RRT - 10/21/2019 9:19 PM SAP BUSINESS OBJECTS CONSULTANT Pt extubated at 1940 and placed on 3L NC with no distress. Will monitor remainderof the shift. BUSINESS OBJECTS CONSULTANT * Assessment & Plan Note - Mario House MD - 10/21/2019 8:48 PM SAP BUSINESS OBJECTS CONSULTANT Associated Problem(s): Labile hypertension (Resolved 08/22/2024) Currently hypotensive but initially hypertensive in OR. Will likely need restarting of his anti-hypertensives once acute post surgical hemodynamics stabilize. BUSINESS OBJECTS CONSULTANT * Assessment & Plan Note - Mario House MD - 10/21/2019 8:47 PM SAP BUSINESS OBJECTS CONSULTANT Associated Problem(s): Chronic back pain complicated by acute surgical pain Dilaudid PRN while intubated, will add scheduled acetaminophen and PRN oxycodone once extubated. BUSINESS OBJECTS CONSULTANT * Assessment & Plan Note - Mario House MD - 10/21/2019 8:43 PM SAP BUSINESS OBJECTS CONSULTANT Associated Problem(s): Vertebrobasilar artery insufficiency (Deleted) S/p aorto to right axillary and aorto to bilateral carotid bypass Expected post operative ventilation, wean to extubate after labs return if neuro exam reassuring. MAP>65 and SBP<120, norepinephrine ordered, likely still hypovolemic/anemic, will follow up labs for choice of resuscitative fluid. At risk for cerebral hyperperfusion, if severe headache have pt sit up, make sure pressure is controlled and call vascular surgical team while ordering head CT Daily ASA q1h Neurovascular checks BUSINESS OBJECTS CONSULTANT * Subjective & Objective - Mario House MD - 10/21/2019 6:16 PM SAP BUSINESS OBJECTS CONSULTANT CT ICU History and Physical Shifts: Shift Options: 8300 AM 1 Subjective Patient is a 73 y.o. female admitted to the hospital on 10/17/2019 11:40 PM Chief Complaint / Reason for admission to CTICU Vertebrobasilar insufficiency, innomiate artery occlusion and carotid stenosis s/p aortic arch reconstruction with aorta to bilateral carotid graft and aorta to right axillary artery graft via Drs. Ramírez and Bree. HPI: Suma Saenz is a 73 y.o. 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 Induction was uneventful other than moderately difficult intubation due to limited mouth opening and neck extension (Grade IIb with Conley videolaryngoscope). Femoral central line was placed by surgical team uneventfully. Intraoperatively pt had at least 750 mL of EBL with 1 L of EBL, 1500 of crystalloid and 240 of cellsaver given. JASON was performed which showed underfilled ventricle prior to last 750 of albumin. UOPthroughout case was only 175 mL. Neuromuscular blockade was given and reversed. Cerebral oximetry was used throughout case without significant deviation at any point from baseline values. Grafts were successfully placed without much incident utilizing side clamp on aorta and not needingbypass. Aorta to Right axillary graft as well as aorta to right and left Y-branching crafts were placed with good flow. This was done via mini sternotomy. Right pleural chest tube and mediastinal chest tubes were placed. Prior to surgery right radial pulse was dopplerable but weak, this was improved post operatively and was palpable. Pt presents to CTICU intubated and sedated on precedex, hypertensive with norepinephrine and vasopressin drips. Past Medical History: Diagnosis Date ??? Anxiety [...] EXTRACAPSULAR W/ INTRAOCULAR LENS IMPLANTATION Bilateral 2018 HOME MEDICATIONS : aspirin 325 mg tablet atenoloL (TENORMIN) 50 mg tablet atorvastatin (LIPITOR) 80 mg tablet buPROPion XL (WELLBUTRIN XL) 150 mg 24 hr tablet cetirizine (ZyrTEC) 10 mg tablet clopidogrel (PLAVIX) 75 mg tablet doxycycline (ADOXA) 50 mg tablet hydroCHLOROthiazide (HYDRODIURIL) 25 mg tablet montelukast (SINGULAIR) 10 mg tablet senna-docusate (SENNA PLUS) 8.6-50 mg Allergies Allergen Reactions ??? Naproxen Rash ??? Nsaids (Non-Steroidal Anti-Inflammatory Drug) Hives ??? Penicillins Rash ??? Sulfa (Sulfonamide Antibiotics) Rash Social History Tobacco Use ??? Smoking status: Former Smoker Types: Cigarettes ??? Smokeless tobacco: Never Used Substance Use Topics ??? Alcohol use: Yes Family History Problem Relation Age of Onset ??? Stroke Father Stroke; ??? Heart disease Father Family history of cardiac disorder - (Added by TW Conv) ??? Heart disease Mother Heart disease; /Family history of cardiac disorder - (Added by TW Conv) Review of systems: ROS not performed due to pt being intubated Objective Medications: Scheduled Meds:acetaminophen, 1,000 mg, oral, Q6H REID Or acetaminophen, 1,000 mg, feeding tube, Q6H REID Or acetaminophen, 650 mg, rectal, Q6H REID [START ON 10/22/2019] aspirin, 325 mg, oral, Daily ceFAZolin, 2,000 mg, intravenous, Q8H REID insulin lispro, 1-3 Units, subcutaneous, Q4H REID [START ON 10/22/2019] lidocaine, 2 patch, transdermal, Daily sodium chloride 0.9%, 0.5-20 mL, intra-catheter, Q8H REID Continuous Infusions:dexMEDEtomidine, 0.2-1.5 mcg/kg/hr, Last Rate: Stopped (10/21/191929) Lactated Ringer's, 50 mL/hr, Last Rate: 50 mL/hr (10/21/191899) norepinephrine, 0.01-2 mcg/kg/min, Last Rate: Stopped (10/21/191929) sodium chloride 0.9%, 1,000 mL sodium chloride 0.9%, 1,000 mL, Last Rate: 6 mL/hr at 10/21/191899 Vitals: Temp: [36.2 ??C (97.2 ??F)-36.5 ??C (97.7 ??F)] 36.5 ??C (97.7 ??F) Pulse: [63-73] 73 BP: (145-206)/(54-65) 206/63 Resp: [8-31] 22 SpO2: [97 %-100 %] 100 % Arterial Line BP: (106-153)/(42-56) 123/53 FiO2 (%): [40 %] 40 % Fluid balnace: I/O this shift: In: 62.4 [I.V.:62.4] Out: 60 [Urine:30; Chest Tube:30] Intake/Output Summary (Last 24 hours) at 10/21/20192014 Last data filed at 10/21/20191899 Gross per 24 hour Intake 2884.03 ml Output 1125 ml Net 1759.03 ml Vent settings: Adult Vent Mode: Pressure support Ventilation FiO2 (%): 40 % S RR: 16 PEEP/CPAP/EPAP (cm H2O): 5 cm H20 Pressure Support (cm H2O): 10 cm H20 Hemodynamic parameters: PAP: -- CVP: -- PCWP: -- CO: -- CI: -- SVO2: -- Pacemaker Overdrive Pacing: -- Cardiac Rhythm: Normal sinus rhythm (10/21 1899) Pacer Mode: -- Physical exam: General: Obese female, intubated and sedated Ear/Nose/Throat: Intubated Lungs: clear to auscultation bilaterally Chest: dressings CDI, chest tubes with minimal serosanguinous output Abdomen: soft non tender non distended Extremities: warm and well perfused Pulses: palpable radial pulses Neurologic: Moves all extremities to command, intermittently opens eyes spontaneously and to comand Laboratory data: Recent Labs Lab Units 10/21/19 1729 10/21/19 1551 10/21/19 1406 10/20/19 2302 10/20/19 0036 WBC K/cumm 13.8* -- -- 5.9 6.6 HEMOGLOBIN, POC g/dL -- 10.8* 11.0* -- -- HEMOGLOBIN g/dL 7.1* -- -- 12.4 12.0 HEMATOCRIT % 21.8* -- -- 38.0 35.7 HEMATOCRIT POC % -- 32.0* 33.0* -- -- PLATELETS K/cumm 144* -- -- 231 213 Recent Labs Lab Units 10/21/19 17210/20/19 2302 10/20/19 0036 SODIUM mmol/L 139 136 138 POTASSIUM PLASMA mmol/L 4.3 4.2 4.0 CHLORIDE mmol/L 113* 103 105 CO2 mmol/L 21* 21* 24 BUN SERUM mg/dL 13 15 19 CREATININE mg/dL 0.77 0.83 0.85 CALCIUM mg/dL 8.3* 9.6 9.0 Recent Labs Lab Units 10/21/19 17210/18/19 0102 PROTIME (PT) sec 15.6* 11.2 INR 1.4* 1.0 APTT sec 27 33 Recent Labs Lab Units 10/21/19 1847 10/21/19 17210/21/19 1551 PH ART 7.34* 7.33* 7.27* PCO2 ART mmHg 38 38 -- PO2 ART mmHg 161* 156* -- PO2 ARTERIAL POC mmHg -- -- 286* BASE EXC ART mmol/L -5 -6 -- Radiology/Diagnostic Review CXR without significant pneumo or hemothorax. ETT properly placed. BUSINESS OBJECTS CONSULTANT BUSINESS OBJECTS CONSULTANT BUSINESS OBJECTS CONSULTANT * Plan of Care - Nilda Sanchez, RN - 10/21/2019 1:45 PM CST Report per DCAM: Patient admitted for innominate occlusion, vertebrobasilar insufficiency.??Patientin the OR and to transfer to the ICU post op. ADD: 10/28 Medical Necessity: OR procedure Referrals made to: Continue to assess Support following discharge: family Transportation: to be determined Follow up: to be made prior to d/c. Problem: Patient to return to safe home environment with family/friends for home support and transportation. Goal: CM to follow for d/c planning and referrals as needed. 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 Exposure of right infraclavicular axillary artery 2. Partial sternotomy 3. Bypass from ascending aorta to right axillary artery with 6 mm PTFE 4. Bypass from ascending aorta to right common carotid artery and left common carotid artery with 8mm and 7 mm Dacron grafts 5. Ultrasound-guided left common femoral catheter placement. Anesthesia: General Estimated Blood Loss: See anesthesia sheets Intravenous Fluids: See anesthesia sheets Indication for Surgery: This very pleasant lady has had multiple syncopal attacks. The primary etiology here is her severe great vessel disease. She has segmental occlusion of her left vertebral artery. 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 We therefore proposed revascularization from the ascending aorta to the right axillary artery, right common carotid artery, and left common carotid artery. The risks and benefits of the procedure have been reviewed with her in detail and she has agreed to proceed. Specimens: None Complications: None evident Contrast: None Fluoroscopy Dose: None Antibiotics: Ancef 2 gm IV and Vancomycin 1 g IV given within one hour of procedure start and will terminate within 24 hours DVT Prophylaxis/Anticoagulation: The patient was systemically anticoagulated during the procedure. Presence Statement: I was present and scrubbed for the entire procedure except the sternotomy open sternotomy closure. I was immediately available for those portions of the procedure. There were no overlapping procedures. Operative Findings: Satisfactory bypasses. Palpable right radial pulse Description of Procedure: The patient was brought to the operating room and was placed in the supine position. A time-out procedure was performed. General anesthesia was induced. Arterial monitoring line was placed by the anesthesia service. The neck, chest, and abdomen were prepped and draped in sterile fashion. Under continues sterile ultrasound guidance, I placed a left common femoral vein central venous catheter. This is done using micropuncture technique with real time visualization of needle entry into the venous lumen. The catheter was positioned appropriately with good return from alllumens. Right infraclavicular incision was made in the deltopectoral groove was exposed. The axillary artery was exposed routine fashion with partial division of the pectoralis minor tendon. Vesseloops were placed proximally and distally. The patient was anticoagulated and a 6 mm thin-walled ringed PTFE graft was brought onto the field. End-to-side anastomosis was created to the inferior aspect of the exposed axillary artery to provide a kink free path when the graft was brought between the ribs to themediastinum. Sternotomy was then performed. Right pleural cavity was opened and the PTFE graft was tunneled through the intercostal space in a direct line to the ascending aorta. An 8 mm Dacron graft was then anastomosed to the ascending aorta just proximal to the PTFE graft. A 7 mm Dacron graft was anastomosed in end-to-side fashion to the 8 mm graft. The right common carotid artery was ligated,transected, and the proximal end oversewn. The 8 mm graft was spatulated and anastomosed in an end-to-end fashion to the spatulated common carotid artery. After the usual flushing maneuvers the bypass graft was completed and flow was restored. In similar fashion a 7 mm graft was anastomosed in end-to-end fashion to the transected left common carotid artery. After the usual flushing maneuvers flows restore there. We had excellent pulsatile flow in all vessels at this point. We reversed with protamine. Excellent hemostasis was obtained. Chest tubes were placed by the cardiac surgery team. The axillary exposure was closed with running Vicryl suture for the deep layers andMonocryl suture and Dermabond at the skin. Sternotomy closure performed by the cardiac team. The patient was then transported to the cardiothoracic intensive care unit, intubated and sedated. Neurologic exam will be obtained at the 1st possible opportunity. Condition on Discharge from Operating Room: Critical Counts: All needle, sponge and instrument counts were correct. BUSINESS OBJECTS CONSULTANT * Brief Op Note - Juwan Jacobo MD - 10/21/2019 11:49 AM CST Operative Progress Note Surgical Team: Surgeon(s) and Role: * Nanci Giron MD - Primary * Taryn Whitley MD - Resident - Assisting * Zeyad Leger MD - Fellow * Juwan Jacobo MD - Fellow * Azar Ramírez MD - Co-Surgeon Anesthesiologist: Hosea Patricia MD; Zack Felton MD PhD Wire Spooler: Jeremy Olson MD; Maliha Michael MD Top Lift Scourer: Sylvester White RN Top Lift Scourer Relief: Renée Gan RN; Mariel Gonzalez RN Scrub Relief: Renée Gan RN Scrub: ST Ever BODY HANGER: Stephanie Ochoa, SENG; Shirley Webster RN DATE OF SURGERY : 10/21/2019 Preoperative Diagnosis: Pre-op Diagnosis * 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 All with good back bleeding prior. Estimated Blood Loss: 750 mL Intraoperative Fluids: See anesthesia records Specimens: No specimen collected in procedure Implants: Implant Name Type Inv. Item Serial No. It Web Development Consultant Lot No. LRB No. Used [employer] [id number] 6MM 80CM 60CM STRETCH REMOVABLE RING LINE PERIPHERALTHIN WALL - [id number] - [id number] Graft [employer] [id number] 6mm 80cm 60cm Stretch Removable Ring Line Peripheral Thin Wall [id number] Wl [employer] Right 1 [employer] [id number] HEMASHIELD [place] 8MM 30CM WOVEN SMOOTH NEEDLE PASSAGE SUTURE -[id number] - [id number] Graft [employer] [id number] Hemashield [place] 8mm 30cm WovenSmooth Needle Passage Suture [id number] N/A 1 [employer] [id number] GELSOFT PLUS VASCUTEK 14/7MM 45CM MAIN LEG BORE REDUCED - [id number] - [id number] Graft [employer] [id number] Gelsoft Plus Vascutek 14/7mm 45cm Main Leg Bore Reduced [id number] [employer] [id number] N/A 1 Blood/Blood Products Transfused: 240 Cell saver Complications: None Condition on Discharge from the operating room was stable Juwan Jacobo MD Date: 10/21/2019 Time: 5:10 PM TEACHING ATTESTATION : I was present and I participated in all portions of the procedure except sternotomy. and remained immediately available during all remaining portions of the case. Cosigned by Azar Ramírez MD at 10/22/2019 1:15 PM SAP BUSINESS OBJECTS CONSULTANT BUSINESS OBJECTS CONSULTANT BUSINESS OBJECTS CONSULTANT * Plan of Care - Johnny Peterson RN - 10/21/2019 7:25 AM CST Goals: Monitor pulses and receive pre-op bath #2 Summary: Problem: Lack of Knowledge: Goal: Ability to state ways to decrease the risk of falls will improve Outcome: Progressing Problem: Safety: Goal: Will remain free from falls Outcome: Progressing Goal: Will remain free from injury from falls Outcome: Progressing Goal: Will remain free from falls and injury in home environment Outcome: Progressing Problem: Activity: Goal: Risk for activity intolerance will decrease Outcome: Progressing Goal: Will verbalize the importance of balancing activity with adequate rest periods Outcome: Progressing Problem: Cardiac: Goal: Ability to maintain an adequate cardiac output will improve Outcome: Progressing Goal: Hemodynamic stability will improve Outcome: Progressing Problem: Lack of Knowledge: Goal: Family's and patient's knowledge of disease or condition will improve Outcome: Progressing Goal: Family's and patient's knowledge of the prescribed therapeutic regimen will improve Outcome: Progressing Problem: Nutritional: Goal: Ability to identify appropriate dietary choices will improve Outcome: Progressing Problem: Physical Regulation: Goal: Complications related to the disease process, condition or treatment will be avoided or minimized Outcome: Progressing Goal: Diagnostic test results will improve Outcome: Progressing Problem: Self-Concept: Goal: Ability to identify strategies to decrease anxiety will improve Outcome: Progressing Goal: Ability to verbalize feelings about condition will improve Outcome: Progressing Problem: Sensory: Goal: Expressions of feelings of enhanced comfort will increase Outcome: Progressing Goal: Pain level will decrease Outcome: Progressing Problem: Health Behavior: Goal: Understanding of discharge needs will improve Outcome: Progressing BUSINESS OBJECTS CONSULTANT * Op Note - Azar Ramírez MD - 10/21/2019 12:00 AM CST Preoperative Diagnosis 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 Procedure Performed Aortic arch reconstruction with multiple branch-graft technique with 6 mm Midland- Jaime graft from the aorta to the right axillary artery, bifurcated 8 mm to 6 mm graft from the ascending aorta to the right common carotid artery, and the left common carotid artery. Attending Physician Azar Ramírez MD. Co-surgeon Nanci Giron MD Note Dr. Giron was required as co-surgeon. This is a very rare case, and due to the complexity of theprocedure involving both the head vessels and the thoracic vessels, the expertise of cardiac surgery and vascular surgery was required in order to complete the procedure safely. Procedure Patient's chest was draped and prepped and cutdown was made on the left. In the right axillary region, we dissected down and identified the right axillary artery and vein. We got control proximal anddistal and then got a 6 mm Midland-Jaime ringed graft and sewed it end-to-end to the axillary. We then did a upper median sternotomy and J'd it to the right in the 4th intercostal space. We then opened up the pericardium, dissected down to the aorta. We gave heparin before doing the distal anastomosis. We then dissected down to the aorta and then freed up it up and freed up the innominate vein. Thendissected up to the innominate artery and its bifurcation to the subclavian and the right common carotid and also then dissected around the left common carotid at the arch. At this point then, we didopen up the right pleura and tunneled the 6 mm graft through the intercostal space, making sure there was not bleeding, and then brought it through to the mediastinum. We then put a side biter clamp on the ascending aorta and sewed an 8 mm Hemashield graft end-to-side with 5-0 Prolene suture. We then put another side biter clamp on and the 6 mm Midland-Jaime graft that was going to the axillary, we sewed end-to-side with 5-0 Prolene suture to the ascending aorta. At this point, we knew we needed an 8 mm for the right common and a 6 mm for the left common, so we got a 6 mm graft and sewed it end-to-side to make a Y-graft to the 8 mm graft with 5-0 Prolene. We then got control of the right carotid, clamped it distal, and then over sewed it proximally with a 5-0 just distal to its bifurcation. We then cut it with a bevel and sewed it end-to-end with a 5-0 Prolene suture to the 8 mm graft. At this point then, we then backfilled it to make sure we did not get air up the head and then we did the same to the left carotid. We cut it just past its takeoff from the arch and then over sewed the proximal size, beveled it, and then cut the 6 mm graft to the appropriate length and did an [id number] with 5-0 Prolene suture. We then, at this point, now had completed the revascularization and de-aired all the grafts. So, we then obtained hemostasis, put in chest tubes, and once all thegrafts were checked to be good, we were to close with wire and absorbable suture. I directly participated in all ghosh portions including all the anastomoses in the dissection and freeing up the vessels and was otherwise immediately available for the entire operation except for the very beginning, during which Dr. Giron was immediately available. Of note, we gave Ancef and vancomycin for antibiotics, which we will discontinue within 48 hours. We did not use any specific DVT prophylaxis since this is not indicated for cardiac surgical procedures. Job ID/VF Job ID: [id number] BUSINESS OBJECTS CONSULTANT * Plan of Care - Miguel Ángel Clarke RN - 10/20/2019 11:58 PM CST Problem: Lack of Knowledge: Goal: Ability to state ways to decrease the risk of falls will improve Outcome: Progressing Problem: Safety: Goal: Will remain free from falls Outcome: Progressing Goal: Will remain free from injury from falls Outcome: Progressing Goal: Will remain free from falls and injury in home environment Outcome: Progressing Problem: Activity: Goal: Risk for activity intolerance will decrease Outcome: Progressing Goal: Will verbalize the importance of balancing activity with adequate rest periods Outcome: Progressing Problem: Cardiac: Goal: Ability to maintain an adequate cardiac output will improve Outcome: Progressing Goal: Hemodynamic stability will improve Outcome: Progressing Problem: Lack of Knowledge: Goal: Family's and patient's knowledge of disease or condition will improve Outcome: Progressing Goal: Family's and patient's knowledge of the prescribed therapeutic regimen will improve Outcome: Progressing Problem: Nutritional: Goal: Ability to identify appropriate dietary choices will improve Outcome: Progressing Problem: Physical Regulation: Goal: Complications related to the disease process, condition or treatment will be avoided or minimized Outcome: Progressing Goal: Diagnostic test results will improve Outcome: Progressing Problem: Self-Concept: Goal: Ability to identify strategies to decrease anxiety will improve Outcome: Progressing Goal: Ability to verbalize feelings about condition will improve Outcome: Progressing Problem: Sensory: Goal: Expressions of feelings of enhanced comfort will increase Outcome: Progressing Goal: Pain level will decrease Outcome: Progressing Problem: Health Behavior: Goal: Understanding of discharge needs will improve Outcome: Progressing Goals: Monitor labs, OR 10/21, CHG Bath Summary: BUSINESS OBJECTS CONSULTANT * Plan of Mon[place] - Muna Hope RN - 10/20/2019 11:59 AM CST Problem: Lack of Knowledge: Goal: Ability to state ways to decrease the risk of falls will improve Outcome: Progressing Problem: Safety: Goal: Will remain free from falls Outcome: Progressing Goal: Will remain free from injury from falls Outcome: Progressing Goal: Will remain free from falls and injury in home environment Outcome: Progressing Problem: Activity: Goal: Risk for activity intolerance will decrease Outcome: Progressing Goal: Will verbalize the importance of balancing activity with adequate rest periods Outcome: Progressing Problem: Cardiac: Goal: Ability to maintain an adequate cardiac output will improve Outcome: Progressing Goal: Hemodynamic stability will improve Outcome: Progressing Problem: Lack of Knowledge: Goal: Family's and patient's knowledge of disease or condition will improve Outcome: Progressing Goal: Family's and patient's knowledge of the prescribed therapeutic regimen will improve Outcome: Progressing Problem: Nutritional: Goal: Ability to identify appropriate dietary choices will improve Outcome: Progressing Problem: Physical Regulation: Goal: Complications related to the disease process, condition or treatment will be avoided or minimized Outcome: Progressing Goal: Diagnostic test results will improve Outcome: Progressing Problem: Self-Concept: Goal: Ability to identify strategies to decrease anxiety will improve Outcome: Progressing Goal: Ability to verbalize feelings about condition will improve Outcome: Progressing Problem: Sensory: Goal: Expressions of feelings of enhanced comfort will increase Outcome: Progressing Goal: Pain level will decrease Outcome: Progressing Problem: Health Behavior: Goal: Understanding of discharge needs will improve Outcome: Progressing Goals: Pain control, monitor BP Summary: Patient updated on plan of care and verbalizes understanding. Will continue to monitor. BUSINESS OBJECTS CONSULTANT * Plan of Care - Miguel Ángel Clarke RN - 10/20/2019 2:57 AM CST Problem: Lack of Knowledge: Goal: Ability to state ways to decrease the risk of falls will improve Outcome: Progressing Problem: Safety: Goal: Will remain free from falls Outcome: Progressing Goal: Will remain free from injury from falls Outcome: Progressing Goal: Will remain free from falls and injury in home environment Outcome: Progressing Problem: Activity: Goal: Risk for activity intolerance will decrease Outcome: Progressing Goal: Will verbalize the importance of balancing activity with adequate rest periods Outcome: Progressing Problem: Cardiac: Goal: Ability to maintain an adequate cardiac output will improve Outcome: Progressing Goal: Hemodynamic stability will improve Outcome: Progressing Problem: Lack of Knowledge: Goal: Family's and patient's knowledge of disease or condition will improve Outcome: Progressing Goal: Family's and patient's knowledge of the prescribed therapeutic regimen will improve Outcome: Progressing Problem: Nutritional: Goal: Ability to identify appropriate dietary choices will improve Outcome: Progressing Problem: Physical Regulation: Goal: Complications related to the disease process, condition or treatment will be avoided or minimized Outcome: Progressing Goal: Diagnostic test results will improve Outcome: Progressing Problem: Self-Concept: Goal: Ability to identify strategies to decrease anxiety will improve Outcome: Progressing Goal: Ability to verbalize feelings about condition will improve Outcome: Progressing Problem: Sensory: Goal: Expressions of feelings of enhanced comfort will increase Outcome: Progressing Goal: Pain level will decrease Outcome: Progressing Problem: Health Behavior: Goal: Understanding of discharge needs will improve Outcome: Progressing Goals: Clinical Goals for the Shift: VSS, labs WNL, assess cath site, remain free from falls Summary: BUSINESS OBJECTS CONSULTANT * Plan of Care - Muna Hope RN - 10/19/2019 2:48 PM CST Problem: Lack of Knowledge: Goal: Ability to state ways to decrease the risk of falls will improve Outcome: Progressing Problem: Safety: Goal: Will remain free from falls Outcome: Progressing Goal: Will remain free from injury from falls Outcome: Progressing Goal: Will remain free from falls and injury in home environment Outcome: Progressing Problem: Activity: Goal: Risk for activity intolerance will decrease Outcome: Progressing Goal: Will verbalize the importance of balancing activity with adequate rest periods Outcome: Progressing Problem: Cardiac: Goal: Ability to maintain an adequate cardiac output will improve Outcome: Progressing Goal: Hemodynamic stability will improve Outcome: Progressing Problem: Lack of Knowledge: Goal: Family's and patient's knowledge of disease or condition will improve Outcome: Progressing Goal: Family's and patient's knowledge of the prescribed therapeutic regimen will improve Outcome: Progressing Problem: Nutritional: Goal: Ability to identify appropriate dietary choices will improve Outcome: Progressing Problem: Physical Regulation: Goal: Complications related to the disease process, condition or treatment will be avoided or minimized Outcome: Progressing Goal: Diagnostic test results will improve Outcome: Progressing Problem: Self-Concept: Goal: Ability to identify strategies to decrease anxiety will improve Outcome: Progressing Goal: Ability to verbalize feelings about condition will improve Outcome: Progressing Problem: Sensory: Goal: Expressions of feelings of enhanced comfort will increase Outcome: Progressing Goal: Pain level will decrease Outcome: Progressing Problem: Health Behavior: Goal: Understanding of discharge needs will improve Outcome: Progressing Goals: Pain control Summary: Patient denies pain. Patient updated on plan of care and verbalizes understanding. Will continue to monitor. BUSINESS OBJECTS CONSULTANT * Plan of Care - Nilda Sanchez RN - 10/19/2019 11:17 AM CST Report per DCAM: Patient admitted for innominate occlusion, vertebrobasilar insufficiency. Symptomatic with Syncope. OR date pending ADD: 10/28 Medical Necessity: Pre testing and monitoring Referrals made to: Continue to assess Support following discharge: family Transportation: to be determined Follow up: to be made prior to d/c. Problem: Patient to return to safe home environment with family/friends for home support and transportation. Goal: CM to follow for d/c planning and referrals as needed. BUSINESS OBJECTS CONSULTANT * Plan of Care - Kenia Dominguez RN - 10/19/2019 3:13 AM CST Goals: Problem: Lack of Knowledge: Goal: Ability to state ways to decrease the risk of falls will improve Outcome: Progressing Problem: Safety: Goal: Will remain free from falls Outcome: Progressing Goal: Will remain free from injury from falls Outcome: Progressing Goal: Will remain free from falls and injury in home environment Outcome: Progressing Problem: Activity: Goal: Risk for activity intolerance will decrease Outcome: Progressing Goal: Will verbalize the importance of balancing activity with adequate rest periods Outcome: Progressing Problem: Cardiac: Goal: Ability to maintain an adequate cardiac output will improve Outcome: Progressing Goal: Hemodynamic stability will improve Outcome: Progressing Problem: Lack of Knowledge: Goal: Family's and patient's knowledge of disease or condition will improve Outcome: Progressing Goal: Family's and patient's knowledge of the prescribed therapeutic regimen will improve Outcome: Progressing Problem: Nutritional: Goal: Ability to identify appropriate dietary choices will improve Outcome: Progressing Problem: Physical Regulation: Goal: Complications related to the disease process, condition or treatment will be avoided or minimized Outcome: Progressing Goal: Diagnostic test results will improve Outcome: Progressing Problem: Self-Concept: Goal: Ability to identify strategies to decrease anxiety will improve Outcome: Progressing Goal: Ability to verbalize feelings about condition will improve Outcome: Progressing Problem: Sensory: Goal: Expressions of feelings of enhanced comfort will increase Outcome: Progressing Goal: Pain level will decrease Outcome: Progressing Problem: Health Behavior: Goal: Understanding of discharge needs will improve Outcome: Progressing Clinical Goals for the Shift: VSS, labs WNL, assess cath site, remain free from falls Summary: VSS, labs WNL, assess cath site, remain free from falls BUSINESS OBJECTS CONSULTANT * Plan of Care - Sarah Velasco RN - 10/18/2019 4:31 PM CST Goals: Clinical Goals for the Shift: Free from falls, stable vitals, to cardiac laboratory engineer and MRI for testing Problem: Lack of Knowledge: Goal: Ability to state ways to decrease the risk of falls will improve Outcome: Progressing Problem: Safety: Goal: Will remain free from falls Outcome: Progressing Goal: Will remain free from injury from falls Outcome: Progressing Goal: Will remain free from falls and injury in home environment Outcome: Progressing Problem: Activity: Goal: Risk for activity intolerance will decrease Outcome: Progressing Goal: Will verbalize the importance of balancing activity with adequate rest periods Outcome: Progressing Problem: Cardiac: Goal: Ability to maintain an adequate cardiac output will improve Outcome: Progressing Goal: Hemodynamic stability will improve Outcome: Progressing Problem: Lack of Knowledge: Goal: Family's and patient's knowledge of disease or condition will improve Outcome: Progressing Goal: Family's and patient's knowledge of the prescribed therapeutic regimen will improve Outcome: Progressing Problem: Nutritional: Goal: Ability to identify appropriate dietary choices will improve Outcome: Progressing Problem: Physical Regulation: Goal: Complications related to the disease process, condition or treatment will be avoided or minimized Outcome: Progressing Goal: Diagnostic test results will improve Outcome: Progressing Problem: Self-Concept: Goal: Ability to identify strategies to decrease anxiety will improve Outcome: Progressing Goal: Ability to verbalize feelings about condition will improve Outcome: Progressing Problem: Sensory: Goal: Expressions of feelings of enhanced comfort will increase Outcome: Progressing Goal: Pain level will decrease Outcome: Progressing Problem: Health Behavior: Goal: Understanding of discharge needs will improve Outcome: Progressing Summary: Patient free from falls, vitals per patient baseline. Blood pressures elevated, team awareand ordered PRN labetalol for treatment. No MRI performed during shift. Patient to transfer to [facility] BUSINESS OBJECTS CONSULTANT * Post-Procedure Note - Jd Sinha MD - 10/18/2019 11:18 AM SAP BUSINESS OBJECTS CONSULTANT Preliminary Note Procedure: Procedure(s): LEFT HEART CATHETERIZATION WITH CORONARY ANGIOGRAPHY AND WITH OR WITHOUT LEFT VENTRICULOGRAM [id number] Indication: pre-op eval for Cerebrovascular surgery Access Site: RFA 5 Fr; closed with 6 Fr angioseal Results: Normal cor angios. Left dominant system Recommendations: No coronary revascularization indicated Jd Sinha MD 11:18 AM BUSINESS OBJECTS CONSULTANT * Pre-Cardiac Catheterization Workup and H&P - Rosmery Murphy NP - 10/18/2019 8:54 AM CST PRE-CARDIAC CATHETERIZATION WORKUP Patient Name: Suma Saenz Patient Patient : 1945 Date of Procedure: 10/18/2019 ORDERING CRUTCH MAKER: Surgeon(s): STAT, GENERIC SURGEON Procedure(s): LEFT HEART CATHETERIZATION WITH CORONARY ANGIOGRAPHY AND WITH OR WITHOUT LEFT VENTRICULOGRAM [id number] Requested Diagnostic: [] Coronary Angiograms Only [x] Left Heart Cath [] LV Gram [] Right Heart Cath [] Right and Left Heart Cath Valve Study: [] Aortic [] Mitral [] Pulmonic [] Tricuspid [] Pulmonary HTN Study [] Pericardial Constriction Study [] Congential Study [] Other Study: Requested Intervention: [] Coronary [] FFR [] Percutaneous VAD [] IAPB [] Pericardiocentesis [] Vascular [] Renal Valvuloplasty: [] Aortic [] Mitral [] Pulmonic [] Tricuspid Strucutural Heart: [] ASD/PFO Closure [] VSD Closure [] TAVR [] Other Intervention: NARRATIVE: Suma Saenz is a 73yoF with pmh significant for vertebrobasilar insufficiency, orthostatic hypotension, innominate artery occlusion, and stenosis of the L carotid/vertebral arteries who presented following repeat syncopal episodes. Here for pre-operative LHC as part of surgical planning for innomminate artery bypass. ALLERGIES: Naproxen; Nsaids (non-steroidal anti-inflammatory drug); Penicillins; and Sulfa (sulfonamide antibiotics) Topical Iodine Allergy: [x] No [] Yes IV Contrast Allergy: [x] No [] Yes If yes, Premedicated for contrast allergy: [] No [] Yes PRE-Procedure Medications Antiarrhythmic Agent: [] Yes [] No [] Contraindicated Aspirin: [x] Yes [] No [] Contraindicated Beta Darwin (Any): [x] Yes [] No [] Contraindicated Ca Channel Darwin (Any): [] Yes [] No [] Contraindicated Long Acting Nirates (Any): [] Yes [] No [] Contraindicated Non-Statin (Any): [] Yes [] No [] Contraindicated Ranolazin: [] Yes [] No [] Contraindicated Statin (Any): [x] Yes [] No [] Contraindicated Indications for Deliverer Outside visit (Select all that apply): [] ACS less than or equal to 24 hours [] ACS greater than 24 hours [] Stable/Known CAD [] Cardiac Arrhythmia [] Post Cardiac Transplant [] New Onset Angina less than or equal to 2 months [] Suspected CAD [] Worsening Angina [] Cardiomyopathy [x] Pre-operative evaluation [] Valvular Disease [] LV Dysfunction [] Evaluation for Exercise Clearance [] Syncope [] Pericardial Disease [] Resuscitated Cardiac Arrest [] Congenital Heart Disease [] Evaluate CAD [] Pre-Transplant Evaluation [] Abnormal Stress Test [] Pulmonary HTN [] Heart Failure [] Other: Chest Pain Symptom Assessment: [] Typical Angina [] Atypical Angina [] Non-anginal Chest Pain [] Asymptomatic HISTORY AND RISK FACTORS Family History of Premature CAD: [] Yes [] No [] Male less than 55 years old [] Female less than 65 years old Relationship: Cerebrovascular Disease: [] Yes [] No Hypertension: [] Yes [] No Diabetes Mellitus: [] Yes [] No Dyslipidemia: [] Yes [] No Peripheral Arterial Disease: [x] Yes [] No Chronic Lung Disease: [] Yes [] No Prior Heart Failure: [] Yes [] No [] CKD [] ESRD [] Dialysis [] HD []PD: Prior PA: [] Yes [] No If Yes, Most Recent PA Date: Tobacco Use Social History Tobacco Use Smoking Status Former Smoker ??? Types: Cigarettes Smokeless Tobacco Never Used If Current - Every Day and Cigarettes, Amount: Previous Cardiac and Peripheral Interventions: (Include hospital/procedure/most recent date) Cardiac Cath/Prior PCI:[] Yes [] No If Yes, Most Recent PCI Date: Report Available: [] Yes [] No Prior CABG: [] Yes [] No If Yes, Most Recent CABG Date: Report Available: [] Yes [] No Valvular Surgery: [] Yes [] No Report Available: [] Yes [] No (Include percutaneous procedures): Peripheral Intervention: [] Yes [] No Report Available: [] Yes [] No LABS Results for orders placed or performed during the hospital encounter of 10/17/19 CBC without differential Result Value Ref Range WBC 6.6 3.8 - 9.9 K/cumm Hgb 12.4 11.9 - 15.5 g/dL Hct 36.6 35.6 - 45.5 % Plt 230 150 - 400 K/cumm MPV 9.3 9.1 - 12.3 fL RBC 3.98 3.90 - 5.20 M/cumm MCV 92.0 81.3 - 96.4 fL MCH 31.2 27.1 - 33.3 pg MCHC 33.9 32.3 - 35.7 g/dL RDW CV 13.5 11.1 - 14.9 % RDW SD 45.5 35.7 - 48.1 fL NRBC abs 0.00 0.00 - 0.01 K/cumm Basic metabolic panel Result Value Ref Range Sodium 139 135 - 145 mmol/L Potassium, pl 3.5 3.3 - 4.9 mmol/L Chloride 104 97 - 110 mmol/L CO2 27 22 - 32 mmol/L Anion gap 8 2 - 15 mmol/L BUN 20 8 - 25 mg/dL Creatinine 0.91 0.60 - 1.10 mg/dL Glucose 88 70 - 199 mg/dL Calcium 8.9 8.5 - 10.3 mg/dL Protime-INR Result Value Ref Range PT 11.2 8.6 - 13.0 sec INR 1.0 0.8 - 1.2 Magnesium Result Value Ref Range Magnesium 2.3 1.4 - 2.5 mg/dL Phosphorus Result Value Ref Range Phosphorus, pl 3.3 2.3 - 4.5 mg/dL aPTT Result Value Ref Range aPTT 33 25 - 37 sec Type and screen Result Value Ref Range Mara, indirect Negative ABO Rh O Positive WBC HGB HCT pits PT INR PTT Na K+ Glucose BUN Cr HCG Cath/PCI Indication: [] CAD (without Ischemic Sx) [] Stable Angina [] New Onset Angina less than or equal to 2 months [] NSTE-ACS [] Other: [] STEMI Symptom Date: Time: [] Thrombolytic [] Yes [] No If Yes, Start Date Time [] Staged PCI, Anginal symptoms stable on Medical Therapy and restricted activity: Anginal Class within 2 weeks [] CCS I [] CCS II [] CCS III [] CCS IV If AMI: [] Cardiogenic Shock at First Medical Contact [] Systolic Blood Pressure: and Heart Rate: at First Medical Contact [] Cardiac arrest within 24 hours [] Cardiogenic shock within 24 hours [] Cardiogenic shock at start of PCI Heart Failure: [] Yes [] NO If Yes, Newly Diagnosed: [] Yes [] No [facility] Class: [] Class I [] Class II [] Class III [] Class IV HF Type: [] Diastolic [] Systolic [] Unknown Test Performed (Choose One): [] Exercise Stress Test (w/o imaging) [] Stress Echocardiogram [] Stress Nuclear [] Stress Imaging w/CMR [] Cardiac CTA If Yes, Result: Result: [] Negative [] Positive [] Indeterminate IF Positive: Risk/Extent of ischemia: [] Low [] Intermediate [] High FINDINGS LVEF Assessed: [] Yes [] No If yes, Most recent LVEF %: ECHO: PHYSICAL EXAM Vitals: 10/18/19 0800 BP: (!) 180/45 Pulse: 63 Resp: 16 Temp: 36.8 ??C (98.2 ??F) SpO2: 98% General: NAD HEENT: EOMI, oropharynx clear Neck: Supple without thyromegaly Lungs: CTAB Cardiac: RRR, normal S1 and S2, no murmurs/rubs/gallops. JVP not elevated, no LE edema. Abdomen: soft, nontender, nondistended Extremities: warm, no clubbing/cyanosis Neuro: grossly intact Psych: normal affect, mood, judgment Pulses Carotid/Bruit Brachial Radial Femoral/Bruit Popiteal DP PT Left 2+ 2+ 2+ Right 2+ 2+ EKG: sinus bradycardia IMPRESSION: 73yoF here for [facility] as part of pre-op evaluation [facility] Clinical Frailty Scale: [] 1: Very Fit [] 2: Well [] 3: Managing Well [x] 4: Vulnerable [] 5: Mildly Frail [] 6: Moderately Frail [] 7: Severely Frail [] 8: Very Severely Frail [] 9: Terminally Ill PLAN: Procedure, risks, benefits and alternatives have been explained to the patient. The patient voiced understanding, consent is signed and orders are written. Form Completed/Reviewed and Assessment Completed by: Name: Rosmery Murphy REINSPECTOR-C Date: 10/18/2019 Time: 904 Cosigned by Jd Sinha MD at 10/18/2019 9:59 AM SAP BUSINESS OBJECTS CONSULTANT BUSINESS OBJECTS CONSULTANT BUSINESS OBJECTS CONSULTANT BUSINESS OBJECTS CONSULTANT BUSINESS OBJECTS CONSULTANT * Pre-Sedation Documentation - Rosmery Murphy NP - 10/18/2019 8:53 AM CST Sedation Plan ASA 3 - Severe systemic disease Risks, benefits, and alternatives discussed with patient. History of sedation/Anesthesia complications:No History of transfusion reaction: No Current Facility-Administered Medications Medication Dose Route Frequency Provider Last Rate Last Dose ??? aspirin tablet 325 mg 325 mg oral Daily Gisella Freedman MD 325 mg at 10/18/19 0828 ??? atenoloL (TENORMIN) tablet 50 mg 50 mg oral Daily Gisella Freedman MD 50 mg at 10/18/19827 ??? atorvastatin (LIPITOR) tablet 80 mg 80 mg oral Nightly Gisella Fredeman MD 80 mg at 10/18/19 0124 ??? buPROPion XL (WELLBUTRIN XL) 24 hour tablet 150 mg 150 mg oral Daily Gisella Freedman MD 150 mg at 10/18/19828 ??? cetirizine (ZyrTEC) tablet 10 mg 10 mg oral Nightly Gisella Freedman MD ??? doxycycline monohydrate (ADOXA) tablet 50 mg 50 mg oral BID Gisella Freedman MD 50 mg at 10/18/19827 ??? heparin 5,000 unit/mL injection 5,000 Units 5,000 Units subcutaneous Q8H [facility] Gisella Freedman MD Stopped at 10/18/19828 ??? hydroCHLOROthiazide (HYDRODIURIL) tablet 25 mg 25 mg oral Daily Gisella Freedman MD 25 mg at 10/18/19828 ??? Lactated Ringer's (LR) infusion 50 mL/hr intravenous Continuous Gisella Freedman MD Stopped at 10/18/19 08 ??? montelukast (SINGULAIR) tablet 10 mg 10 mg oral Nightly Gisella Freedman MD ??? senna-docusate (PERICOLACE) 8.6-50 mg per tablet 2 tablet 2 tablet oral BID PRN Gisella Freedman MD 2 tablet at 10/18/19828 ??? sodium chloride 0.9% flush 0.5-20 mL 0.5-20 mL intra-catheter Q8H [facility] Gisella Freedman MD 10 mL at 10/18/19 0112 ??? sodium chloride 0.9% flush 0.5-20 mL 0.5-20 mL intra-catheter PRN Gisella Freedman MD Laboratory review: Chemistry BMP Lab Results Component Value Date GLUCOSE 88 10/18/2019 CALCIUM 8.9 10/18/2019 SODIUM 139 10/18/2019 POTASSIUM 3.5 10/18/2019 CO2 27 10/18/2019 BUNSER 20 10/18/2019 CREATININE 0.91 10/18/2019 and CBC: Lab Results Component Value Date WBC 6.6 10/18/2019 RBC 3.98 10/18/2019 HGB 12.4 10/18/2019 HCT 36.6 10/18/2019 MCV 92.0 10/18/2019 MCH 31.2 10/18/2019 MCHC 33.9 10/18/2019 RDWCV 13.5 10/18/2019 RDWSD 45.5 10/18/2019 MPV 9.3 10/18/2019 NRBCABS 0.00 10/18/2019 Current meds/Labs/Test Results that may affect sedation reviewed: Yes Last PO Intake: HEENT Exam: negative Sedation Plan: Moderate Cosigned by Jd Sinha MD at 10/18/2019 9:59 AM SAP BUSINESS OBJECTS CONSULTANT BUSINESS OBJECTS CONSULTANT BUSINESS OBJECTS CONSULTANT BUSINESS OBJECTS CONSULTANT * Plan of Care - Valdez Martinez RN - 10/18/2019 5:24 AM CST Problem: Lack of Knowledge: Goal: Ability to state ways to decrease the risk of falls will improve Outcome: Progressing Problem: Safety: Goal: Will remain free from falls Outcome: Progressing Goal: Will remain free from injury from falls Outcome: Progressing Goal: Will remain free from falls and injury in home environment Outcome: Progressing Problem: Activity: Goal: Risk for activity intolerance will decrease Outcome: Progressing Goal: Will verbalize the importance of balancing activity with adequate rest periods Outcome: Progressing Problem: Cardiac: Goal: Ability to maintain an adequate cardiac output will improve Outcome: Progressing Goal: Hemodynamic stability will improve Outcome: Progressing Problem: Lack of Knowledge: Goal: Family's and patient's knowledge of disease or condition will improve Outcome: Progressing Goal: Family's and patient's knowledge of the prescribed therapeutic regimen will improve Outcome: Progressing Problem: Nutritional: Goal: Ability to identify appropriate dietary choices will improve Outcome: Progressing Problem: Physical Regulation: Goal: Complications related to the disease process, condition or treatment will be avoided or minimized Outcome: Progressing Goal: Diagnostic test results will improve Outcome: Progressing Problem: Self-Concept: Goal: Ability to identify strategies to decrease anxiety will improve Outcome: Progressing Goal: Ability to verbalize feelings about condition will improve Outcome: Progressing Problem: Sensory: Goal: Expressions of feelings of enhanced comfort will increase Outcome: Progressing Goal: Pain level will decrease Outcome: Progressing Goals: Summary: pt neuro status monitored, remained free from falls, labs sent, will continue to monitor pt BUSINESS OBJECTS CONSULTANT documented in this encounter Plan of Treatment Pending Results Name Type Priority Associated Diagnoses Date /Time Vascular Surgery Procedure CV Vacular Procedures Routine 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 10/21/2019 4:49 PM SAP BUSINESS OBJECTS CONSULTANT Scheduled Orders Name Type Priority Associated Diagnoses Orde r Schedule ECG 12 lead ECG STAT Once for 1 Oc currences starting 10/21/2019 until 10/21/2019 documented as of this encounter Procedures Procedure Name Priority Date/Time Associated Diagnosis Comments DIFFERENTIAL AUTO Routine 10/27/2019 12:41 AM SAP BUSINESS OBJECTS CONSULTANT CBC WITH AUTO DIFFERENTIAL Routine 10/27/2019 12:41 AM SAP BUSINESS OBJECTS CONSULTANT BASIC METABOLIC PANEL Routine 10/27/2019 12:41 AM SAP BUSINESS OBJECTS CONSULTANT DIFFERENTIAL AUTO Routine 10/25/2019 11:19 PM SAP BUSINESS OBJECTS CONSULTANT CBC WITH AUTO DIFFERENTIAL Routine 10/25/2019 11:19 PM SAP BUSINESS OBJECTS CONSULTANT LIDOCAINE LEVEL Timed 10/25/2019 11:19 PM SAP BUSINESS OBJECTS CONSULTANT TYPE AND SCREEN Timed 10/25/2019 11:19 PM [employer] BUSINESS OBJECTS CONSULTANT PHOSPHORUS Routine 10/25/2019 11:19 PM [employer] BUSINESS OBJECTS CONSULTANT MAGNESIUM Routine 10/25/2019 11:19 PM [employer] BUSINESS OBJECTS CONSULTANT BASIC METABOLIC PANEL Routine 10/25/2019 11:19 PM SAP BUSINESS OBJECTS CONSULTANT MRSA ONLY (STAPHYLOCOCCUS AUREUS) CULTURE Routine 10/25/2019 11:40 AM SAP BUSINESS OBJECTS CONSULTANT POCT GLUCOSE DEVICE Routine 10/25/2019 11:34 AM SAP BUSINESS OBJECTS CONSULTANT CRITICAL CARE Routine 10/25/2019 11:07 AM SAP BUSINESS OBJECTS CONSULTANT Acute postoperative pain POCT GLUCOSE DEVICE Routine 10/25/2019 8 :13 AM SAP BUSINESS OBJECTS CONSULTANT TYPE AND SCREEN Timed 10/25/2019 5:24 AM SAP BUSINESS OBJECTS CONSULTANT DIFFERENTIAL AUTO Routine 10/25/2019 4:1 9 AM SAP BUSINESS OBJECTS CONSULTANT CALCIUM, IONIZED Routine 10/25/2019 4:19 AM SAP BUSINESS OBJECTS CONSULTANT POCT GLUCOSE DEVICE Routine 10/25/2019 4 :19 AM SAP BUSINESS OBJECTS CONSULTANT CBC WITH AUTO DIFFERENTIAL Routine 10/25/2019 4:19 AM SAP BUSINESS OBJECTS CONSULTANT PHOSPHORUS Routine 10/25/2019 4:19 AM [employer] BUSINESS OBJECTS CONSULTANT MAGNESIUM Routine 10/25/2019 4:19 AM SAP BUSINESS OBJECTS CONSULTANT BASIC METABOLIC PANEL Routine 10/25/2019 4:19 AM SAP BUSINESS OBJECTS CONSULTANT POCT GLUCOSE DEVICE Routine 10/24/2019 11:08 PM SAP BUSINESS OBJECTS CONSULTANT XR CHEST 1 VIEW Timed 10/24/2019 9:52 PM SAP BUSINESS OBJECTS CONSULTANT ECG 12-LEAD STAT 10/24/2019 8:21 PM SAP BUSINESS OBJECTS CONSULTANT POCT GLUCOSE DEVICE Routine 10/24/2019 8 :11 PM SAP BUSINESS OBJECTS CONSULTANT PEP THERAPY Routine 10/24/2019 6:00 PM SAP BUSINESS OBJECTS CONSULTANT MAGNESIUM Routine 10/24/2019 5:29 PM SAP BUSINESS OBJECTS CONSULTANT BASIC METABOLIC PANEL Routine 10/24/2019 5:29 PM SAP BUSINESS OBJECTS CONSULTANT POCT GLUCOSE DEVICE Routine 10/24/2019 4 :28 PM SAP BUSINESS OBJECTS CONSULTANT PEP THERAPY Routine 10/24/2019 1:00 PM SAP BUSINESS OBJECTS CONSULTANT CRITICAL CARE Routine 10/24/2019 12:48 PM SAP BUSINESS OBJECTS CONSULTANT Labile hypertension POCT GLUCOSE DEVICE Routine 10/24/2019 12:22 PM SAP BUSINESS OBJECTS CONSULTANT PEP THERAPY Routine 10/24/2019 8:00 AM SAP BUSINESS OBJECTS CONSULTANT POCT GLUCOSE DEVICE Routine 10/24/2019 7 :35 AM SAP BUSINESS OBJECTS CONSULTANT DIFFERENTIAL AUTO Routine 10/24/2019 1:3 5 AM SAP BUSINESS OBJECTS CONSULTANT CBC WITH AUTO DIFFERENTIAL Routine 10/24/2019 1:35 AM SAP BUSINESS OBJECTS CONSULTANT LIDOCAINE LEVEL Timed 10/24/2019 1:35 AM SAP BUSINESS OBJECTS CONSULTANT PHOSPHORUS Routine 10/24/2019 1:35 AM SAP BUSINESS OBJECTS CONSULTANT MAGNESIUM Routine 10/24/2019 1:35 AM SAP BUSINESS OBJECTS CONSULTANT BASIC METABOLIC PANEL Routine 10/24/2019 1:35 AM SAP BUSINESS OBJECTS CONSULTANT POCT GLUCOSE DEVICE Routine 10/23/2019 11:43 PM SAP BUSINESS OBJECTS CONSULTANT POCT GLUCOSE DEVICE Routine 10/23/2019 9 :36 PM SAP BUSINESS OBJECTS CONSULTANT XR CHEST 1 VIEW Timed 10/23/2019 8:56 PM SAP BUSINESS OBJECTS CONSULTANT POCT GLUCOSE DEVICE Routine 10/23/2019 3 :28 PM SAP BUSINESS OBJECTS CONSULTANT PEP THERAPY Routine 10/23/2019 3:00 PM SAP BUSINESS OBJECTS CONSULTANT POCT GLUCOSE DEVICE Routine 10/23/2019 12:10 PM SAP BUSINESS OBJECTS CONSULTANT CRITICAL CARE Routine 10/23/2019 11:12 AM SAP BUSINESS OBJECTS CONSULTANT Acute postoperative pain Acute respiratory failure with hypoxia (CMS/HCC) Orthostatic hypotension PEP THERAPY Routine 10/23/2019 9:00 AM SAP BUSINESS OBJECTS CONSULTANT POCT GLUCOSE DEVICE Routine 10/23/2019 7 :51 AM SAP BUSINESS OBJECTS CONSULTANT TYPE AND SCREEN Timed 10/22/2019 11:59 PM SAP BUSINESS OBJECTS CONSULTANT POCT GLUCOSE DEVICE Routine 10/22/2019 11:53 PM SAP BUSINESS OBJECTS CONSULTANT LIDOCAINE LEVEL Routine 10/22/2019 11:50 PM SAP BUSINESS OBJECTS CONSULTANT CBC WITHOUT DIFFERENTIAL Routine 10/22/2019 11:50 PM SAP BUSINESS OBJECTS CONSULTANT PHOSPHORUS Routine 10/22/2019 11:50 PM SAP BUSINESS OBJECTS CONSULTANT MAGNESIUM Routine 10/22/2019 11:50 PM SAP BUSINESS OBJECTS CONSULTANT BASIC METABOLIC PANEL Routine 10/22/2019 11:50 PM SAP BUSINESS OBJECTS CONSULTANT POCT GLUCOSE DEVICE Routine 10/22/2019 8 :20 PM SAP BUSINESS OBJECTS CONSULTANT XR CHEST 1 VIEW ED Urgent/IP Urgent 10/22/2019 4:15 PM SAP BUSINESS OBJECTS CONSULTANT POCT GLUCOSE DEVICE Routine 10/22/2019 4 :10 PM SAP BUSINESS OBJECTS CONSULTANT PEP THERAPY Routine 10/22/2019 3:00 PM SAP BUSINESS OBJECTS CONSULTANT CRITICAL CARE Routine 10/22/2019 12:06 PM SAP BUSINESS OBJECTS CONSULTANT Vertebral artery compression syndrome Syncope and collapse PEP THERAPY Routine 10/22/2019 11:49 AM SAP BUSINESS OBJECTS CONSULTANT PEP THERAPY Routine 10/22/2019 11:49 AM SAP BUSINESS OBJECTS CONSULTANT PEP THERAPY Routine 10/22/2019 11:49 AM SAP BUSINESS OBJECTS CONSULTANT POCT GLUCOSE DEVICE Routine 10/22/2019 11:48 AM SAP BUSINESS OBJECTS CONSULTANT CBC WITHOUT DIFFERENTIAL STAT 10/22/2019 11:37 AM SAP BUSINESS OBJECTS CONSULTANT LIDOCAINE LEVEL Timed 10/22/2019 8:32 AM SAP BUSINESS OBJECTS CONSULTANT POCT GLUCOSE DEVICE Routine 10/22/2019 7 :47 AM SAP BUSINESS OBJECTS CONSULTANT PEP THERAPY Routine 10/22/2019 5:56 AM SAP BUSINESS OBJECTS CONSULTANT POCT GLUCOSE DEVICE Routine 10/22/2019 3 :41 AM SAP BUSINESS OBJECTS CONSULTANT ECG 12-LEAD Routine 10/22/2019 2:02 AM SAP BUSINESS OBJECTS CONSULTANT CBC WITHOUT DIFFERENTIAL Routine 10/22/2019 1:24 AM SAP BUSINESS OBJECTS CONSULTANT PHOSPHORUS Timed 10/22/2019 1:24 AM SAP BUSINESS OBJECTS CONSULTANT MAGNESIUM Timed 10/22/2019 1:24 AM SAP BUSINESS OBJECTS CONSULTANT BASIC METABOLIC PANEL Timed 10/22/2019 1:24 AM SAP BUSINESS OBJECTS CONSULTANT POCT GLUCOSE DEVICE Routine 10/22/2019 12:10 AM SAP BUSINESS OBJECTS CONSULTANT CBC WITHOUT DIFFERENTIAL Timed 10/21/2019 10:20 PM SAP BUSINESS OBJECTS CONSULTANT XR CHEST 1 VIEW Timed 10/21/2019 8:38 PM SAP BUSINESS OBJECTS CONSULTANT POCT GLUCOSE DEVICE Routine 10/21/2019 8 :24 PM SAP BUSINESS OBJECTS CONSULTANT EXTUBATION Routine 10/21/2019 7:00 PM SAP BUSINESS OBJECTS CONSULTANT MRSA ONLY (STAPHYLOCOCCUS AUREUS) CULTURE STAT 10/21/2019 6:50 PM SAP BUSINESS OBJECTS CONSULTANT TRANSFUSE RED BLOOD CELLS Timed 10/21/2019 6:50 PM SAP BUSINESS OBJECTS CONSULTANT INFECTION PREVENTION MRSA ONLY (STAPHYLOCOCCUS AUREUS) CULTURE Routine 10/21/2019 6:50 PM SAP BUSINESS OBJECTS CONSULTANT POTASSIUM, WHOLE BLOOD STAT 10/21/2019 6:47 PM SAP BUSINESS OBJECTS CONSULTANT BLOOD GAS, ARTERIAL STAT 10/21/2019 6 :47 PM SAP BUSINESS OBJECTS CONSULTANT PREPARE RBC Timed 10/21/2019 6:34 PM SAP BUSINESS OBJECTS CONSULTANT LACTATE, WHOLE BLOOD STAT 10/21/2019 5:29 PM SAP BUSINESS OBJECTS CONSULTANT APTT STAT 10/21/2019 5:29 PM SAP BUSINESS OBJECTS CONSULTANT PROTIME-INR STAT 10/21/2019 5:29 PM SAP BUSINESS OBJECTS CONSULTANT CBC WITHOUT DIFFERENTIAL STAT 10/21/2019 5:29 PM SAP BUSINESS OBJECTS CONSULTANT BLOOD GAS, ARTERIAL STAT 10/21/2019 5 :29 PM SAP BUSINESS OBJECTS CONSULTANT BASIC METABOLIC PANEL STAT 10/21/2019 5:29 PM SAP BUSINESS OBJECTS CONSULTANT XR CHEST 1 VIEW Critical/Life- Threatening 10/21/2019 5:27 PM SAP BUSINESS OBJECTS CONSULTANT POCT GLUCOSE DEVICE Routine 10/21/2019 5 :07 PM SAP BUSINESS OBJECTS CONSULTANT VASCULAR SURGERY PROCEDURE Routine 10/21/2019 4:49 PM SAP BUSINESS OBJECTS CONSULTANT 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 POC BLOOD GAS AND CHEMISTRIES, ARTERIAL Routine 10/21/2019 3:51 PM SAP BUSINESS OBJECTS CONSULTANT POCT ACTIVATED CLOTTING TIME, LOW RANGE Routine 10/21/2019 3:43 PM SAP BUSINESS OBJECTS CONSULTANT POCT ACTIVATED CLOTTING TIME, LOW RANGE Routine 10/21/2019 3:06 PM SAP BUSINESS OBJECTS CONSULTANT POCT ACTIVATED CLOTTING TIME, LOW RANGE Routine 10/21/2019 2:37 PM SAP BUSINESS OBJECTS CONSULTANT POCT ACTIVATED CLOTTING TIME, LOW RANGE Routine 10/21/2019 2:10 PM SAP BUSINESS OBJECTS CONSULTANT POC BLOOD GAS AND CHEMISTRIES, ARTERIAL Routine 10/21/2019 2:06 PM SAP BUSINESS OBJECTS CONSULTANT POCT ACTIVATED CLOTTING TIME, LOW RANGE Routine 10/21/2019 1:34 PM SAP BUSINESS OBJECTS CONSULTANT POCT ACTIVATED CLOTTING TIME, LOW RANGE Routine 10/21/2019 1:08 PM SAP BUSINESS OBJECTS CONSULTANT POCT ACTIVATED CLOTTING TIME, LOW RANGE Routine 10/21/2019 12:19 PM SAP BUSINESS OBJECTS CONSULTANT BYPASS AORTIC INNOMINATE 10/21/2019 10:46 AM SAP BUSINESS OBJECTS CONSULTANT 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 DIFFERENTIAL AUTO Routine 10/20/2019 11:02 PM SAP BUSINESS OBJECTS CONSULTANT CBC WITH AUTO DIFFERENTIAL Routine 10/20/2019 11:02 PM SAP BUSINESS OBJECTS CONSULTANT BASIC METABOLIC PANEL Routine 10/20/2019 11:02 PM SAP BUSINESS OBJECTS CONSULTANT TYPE AND SCREEN Timed 10/20/2019 12:17 PM SAP BUSINESS OBJECTS CONSULTANT PREPARE RBC Timed 10/20/2019 9:43 AM SAP BUSINESS OBJECTS CONSULTANT DIFFERENTIAL AUTO Routine 10/20/2019 12:36 AM SAP BUSINESS OBJECTS CONSULTANT CBC WITH AUTO DIFFERENTIAL Routine 10/20/2019 12:36 AM SAP BUSINESS OBJECTS CONSULTANT BASIC METABOLIC PANEL Routine 10/20/2019 12:36 AM SAP BUSINESS OBJECTS CONSULTANT US GROIN PSEUDO DUPLEX RIGHT IP Routine 10/19/2019 10:30 AM SAP BUSINESS OBJECTS CONSULTANT DIFFERENTIAL AUTO Routine 10/19/2019 12:13 AM SAP BUSINESS OBJECTS CONSULTANT CBC WITH AUTO DIFFERENTIAL Routine 10/19/2019 12:13 AM SAP BUSINESS OBJECTS CONSULTANT BASIC METABOLIC PANEL Routine 10/19/2019 12:13 AM SAP BUSINESS OBJECTS CONSULTANT MRI BRAIN MRA HEAD W WO CONTRAST IP Routine 10/18/2019 7:03 PM SAP BUSINESS OBJECTS CONSULTANT MRA NECK W WO CONTRAST IP Routine 10/18/2019 7:03 PM SAP BUSINESS OBJECTS CONSULTANT LEFT HEART CATHETERIZATION WITH CORONARY ANGIOGRAPHY AND WITH AND WITHOUT LEFT VENTRICULOGRAM Routine 10/18/2019 11:21 AM SAP BUSINESS OBJECTS CONSULTANT 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) CBC WITHOUT DIFFERENTIAL Routine 10/18/2019 10:37 AM SAP BUSINESS OBJECTS CONSULTANT APTT STAT 10/18/2019 1:02 AM SAP BUSINESS OBJECTS CONSULTANT PROTIME-INR STAT 10/18/2019 1:02 AM SAP BUSINESS OBJECTS CONSULTANT CBC WITHOUT DIFFERENTIAL STAT 10/18/2019 1:02 AM SAP BUSINESS OBJECTS CONSULTANT TYPE AND SCREEN STAT 10/18/2019 1:02 AM SAP BUSINESS OBJECTS CONSULTANT PHOSPHORUS STAT 10/18/2019 1:02 AM SAP BUSINESS OBJECTS CONSULTANT MAGNESIUM STAT 10/18/2019 1:02 AM SAP BUSINESS OBJECTS CONSULTANT BASIC METABOLIC PANEL STAT 10/18/2019 1:02 AM SAP BUSINESS OBJECTS CONSULTANT ECG 12-LEAD STAT 10/18/2019 12:33 AM SAP BUSINESS OBJECTS CONSULTANT documented in this encounter Results * (ABNORMAL) Differential, auto (10/27/2019 12:41 AM SAP BUSINESS OBJECTS CONSULTANT) Neutrophil abs 2.9 1.7 - 6.5 K/cumm [facility] Imm gran abs 0.2(H) 0.0 - 0.1 K/cumm [facility] Lymphocyte abs 1.9 0.8 - 3.3 K/cumm [facility] Monocyte abs 1.0(H) 0.2 - 0.8 K/cumm [facility] Eosinophil abs 0.1 0.0 - 0.5 K/cumm [facility] Basophil abs 0.0 0.0 - 0.1 K/cumm [facility] Neutrophil pct 47.3 % [facility] Comment: Interpretive Data Percent cell count reference ranges are not reported, since discordance with absolute values may lead to misinterpretation of CBC data. Current Interpretive Data was last revised on 2017. Imm gran pct 2.4 % [facility] Comment: Interpretive Data Percent cell count reference ranges are not reported, since discordance with absolute values may lead to misinterpretation of CBC data. Current Interpretive Data was last revised on 2017. Lymphocyte pct 31.4 % [facility] Comment: Interpretive Data Percent cell count reference ranges are not reported, since discordance with absolute values may lead to misinterpretation of CBC data. Current Interpretive Data was last revised on 2017. Monocyte pct 16.1 % [facility] Comment: Interpretive Data Percent cell count reference ranges are not reported, since discordance with absolute values may lead to misinterpretation of CBC data. Current Interpretive Data was last revised on 2017. Eosinophil pct 2.1 % [facility] Comment: Interpretive Data Percent cell count reference ranges are not reported, since discordance with absolute values may lead to misinterpretation of CBC data. Current Interpretive Data was last revised on 2017. Basophil pct 0.7 % [facility] Comment: Interpretive Data Percent cell count reference ranges are not reported, since discordance with absolute values may lead to misinterpretation of CBC data. Current Interpretive Data was last revised on 2017. Blood specimen (specimen) 10/27/2019 12:41 AM SAP BUSINESS OBJECTS CONSULTANT 10/27/2019 1:29 AM SAP BUSINESS OBJECTS CONSULTANT Annemarie Lynne NP LAB BLOOD ORDERABLES F inal Result Performing Organization Address City/[facility]/ZIP Co de Phone Number [facility] Department of Laboratories [place] [address] * (ABNORMAL) CBC with auto differential (10/27/2019 12:41 AM [employer] BUSINESS OBJECTS CONSULTANT) WBC 6.2 3.8 - 9.9 K/cumm [facility] Hgb 8.8(L) 11.9 - 15.5 g/dL [facility] Hct 26.6(L) 35.6 - 45.5 % [facility] Plt 285 150 - 400 K/cumm [facility] MPV 9.4 9.1 - 12.3 fL [facility] RBC 2.84(L) 3.90 - 5.20 M/cumm [facility] MCV 93.7 81.3 - 96.4 fL [facility] MCH 31.0 27.1 - 33.3 pg [facility] MCHC 33.1 32.3 - 35.7 g/dL [facility] RDW CV 14.1 11.1 - 14.9 % [facility] RDW SD 47.8 35.7 - 48.1 fL [facility] NRBC abs 0.04(H) 0.00 - 0.01 K/cumm [facility] Blood specimen (specimen) 10/27/2019 12:41 AM [employer] OBJECTS CONSULTANT 10/27/2019 1:29 AM [employer] BUSINESS OBJECTS CONSULTANT Annemarie Lynne NP LAB BLOOD ORDERABLES F inal Result Performing Organization Address [facility]/ZIP Co de Phone Number [facility] [place] [address] * (ABNORMAL) Basic metabolic panel (10/27/2019 12:41 AM [employer] BUSINESS OBJECTS CONSULTANT) Pathologist [facility] Sodium 133(L) 135 - 145 mmol/L [facility] Potassium, pl 3.9 3.3 - 4.9 mmol/L [facility] Chloride 100 97 - 110 mmol/L [facility] CO2 25 22 - 32 mmol/L [facility] Anion gap 8 2 - 15 mmol/L [facility] BUN 17 8 - 25 mg/dL [facility] Creatinine 0.83 0.60 - 1.10 mg/dL [facility] Glucose 107 70 - 199 mg/dL [facility] Comment: Interpretive Data Fasting glucose >/= 126 [...] interpretive data was last revised 2017. Calcium 9.0 8.5 - 10.3 mg/dL [facility] Blood specimen (specimen) 10/27/2019 12:41 AM [employer] OBJECTS CONSULTANT 10/27/2019 1:29 AM [employer] OBJECTS CONSULTANT Annemarie Lynne NP LAB BLOOD ORDERABLES F inal Result [facility] Department [place] [address] * Differential, auto (10/25/2019 11:19 PM [employer] BUSINESS OBJECTS CONSULTANT) [facility] Neutrophil abs 3.7 1.7 - 6.5 K/cumm [facility] Imm gran abs 0.1 0.0 - 0.1 K/cumm [facility] Lymphocyte abs 1.1 0.8 - 3.3 K/cumm [facility] Monocyte abs 0.8 0.2 - 0.8 K/cumm [facility] Eosinophil abs 0.1 0.0 - 0.5 K/cumm [facility] Basophil abs 0.0 0.0 - 0.1 K/cumm [facility] Neutrophil pct 63.2 % [facility] Comment: Interpretive Data Percent cell count reference ranges are not reported, since discordance with absolute values may lead to misinterpretation of CBC data. Current Interpretive Data was last revised on 2017. Imm gran pct 1.4 % [facility] Comment: Interpretive Data Percent cell count reference ranges are not reported, since discordance with absolute values may lead to misinterpretation of CBC data. Current Interpretive Data was last revised on 2017. Lymphocyte pct 19.2 % [facility] Comment: Interpretive Data Percent cell count reference ranges are not reported, since discordance with absolute values may lead to misinterpretation of CBC data. Current Interpretive Data was last revised on 2017. Monocyte pct 14.3 % [facility] Comment: Interpretive Data Percent cell count reference ranges are not reported, since discordance with absolute values may lead to misinterpretation of CBC data. Current Interpretive Data was last revised on 2017. Eosinophil pct 1.4 % [facility] Comment: Interpretive Data Percent cell count reference ranges are not reported, since discordance with absolute values may lead to misinterpretation of CBC data. Current Interpretive Data was last revised on 2017. Basophil pct 0.5 % [facility] Comment: Interpretive Data Percent cell count reference ranges are not reported, since discordance with absolute values may lead to misinterpretation of CBC data. Current Interpretive Data was last revised on 2017. Blood specimen (specimen) 10/25/2019 11:19 PM [employer]S CONSULTANT 10/25/2019 11:48 PM [employer]JECTS CONSULTANT us Nanci Giron MD LAB BLOOD ORDERABLES Tiffany pacheco Result [facility] Department [place] [address] * Type and screen (10/25/2019 11:19 PM [employer] OBJECTS CONSULTANT) Mara, indirect Negative [facility] ABO Rh O Positive [facility] Blood specimen (specimen) 10/25/2019 11:19 PM [employer] OBJECTS CONSULTANT 10/26/2019 12:07 AM [employer] BUSINESS OBJECTS CONSULTANT Narrative [facility] - 10/26/2019 1:13 AM [employer] OBJECTS CONSULTANT Has the patient had Daratumumab (Darzalex) in the past 6 months?->Unknown Nanci Giron MD LAB BLOOD BANK TEST ORDER EDD Final Result Performing Organization Address City/[facility] Co de Phone Number [facility] [place] [address] * Phosphorus (10/25/2019 11:19 PM [employer] BUSINESS OBJECTS CONSULTANT) Pathologist [facility] Phosphorus, pl 2.6 2.3 - 4.5 mg/dL [facility] Blood specimen (specimen) 10/25/2019 11:19 PM [employer] OBJECTS CONSULTANT 10/25/2019 11:47 PM [employer] OBJECTS CONSULTANT Nanci Giron MD LAB BLOOD ORDERABLES Tiffany l Result Performing Organization Address [facility] Co de Phone Number [facility] Department [place] [address] * Magnesium (10/25/2019 11:19 PM [employer] BUSINESS OBJECTS CONSULTANT) Pathologist [facility] Magnesium 2.3 1.4 - 2.5 mg/dL [facility] Blood specimen (specimen) 10/25/2019 11:19 PM [employer] OBJECTS CONSULTANT 10/25/2019 11:47 PM [employer] OBJECTS CONSULTANT Nanci Giron MD LAB BLOOD ORDERABLES Tiffany l Result Performing Organization Address City/[facility] Co de Phone Number [facility] Department [place] [address] * (ABNORMAL) Basic metabolic panel (10/25/2019 11:19 PM [employer] OBJECTS CONSULTANT) Pathologist [facility] Sodium 131(L) 135 - 145 mmol/L [facility] Potassium, pl 4.0 3.3 - 4.9 mmol/L [facility] Chloride 96(L) 97 - 110 mmol/L [facility] CO2 26 22 - 32 mmol/L [facility] Anion gap 9 2 - 15 mmol/L [facility] BUN 21 8 - 25 mg/dL [facility] Creatinine 0.79 0.60 - 1.10 mg/dL [facility] Glucose 115 70 - 199 mg/dL [facility] Comment: Interpretive Data Fasting glucose >/= 126 [...] interpretive data was last revised 2017. Calcium 9.2 8.5 - 10.3 mg/dL [facility] Blood specimen (specimen) 10/25/2019 11:19 PM [employer]JECTS CONSULTANT 10/25/2019 11:47 PM [employer] OBJECTS CONSULTANT us Nanci Giron MD LAB BLOOD ORDERABLES Tiffany pacheco Result [facility] [place] [address] * (ABNORMAL) CBC with auto differential (10/25/2019 11:19 PM [employer] OBJECTS CONSULTANT) [facility] WBC 5.9 3.8 - 9.9 K/cumm [facility] Hgb 8.3(L) 11.9 - 15.5 g/dL [facility] Hct 24.3(L) 35.6 - 45.5 % [facility] Plt 240 150 - 400 K/cumm [facility] MPV 9.5 9.1 - 12.3 fL [facility] RBC 2.66(L) 3.90 - 5.20 M/cumm [facility] MCV 91.4 81.3 - 96.4 fL [facility] MCH 31.2 27.1 - 33.3 pg [facility] MCHC 34.2 32.3 - 35.7 g/dL [facility] RDW CV 14.1 11.1 - 14.9 % [facility] RDW SD 46.6 35.7 - 48.1 fL [facility] NRBC abs 0.00 0.00 - 0.01 K/cumm [facility] Blood specimen (specimen) 10/25/2019 11:19 PM [employer]S CONSULTANT 10/25/2019 11:48 PM [employer] BUSINESS OBJECTS CONSULTANT Nanci Giron MD LAB BLOOD ORDERABLES Tiffany l Result Performing Organization Address City/[facility]/ZIP Co de Phone Number [facility] Department [place] [address] * (ABNORMAL) Lidocaine level (10/25/2019 11:19 PM [employer]S CONSULTANT) Lidocaine (Xylocaine) <1.0(L) 1.5 - 5.0 mcg/mL [facility] Blood specimen (specimen) 10/25/2019 11:19 PM [employer] OBJECTS CONSULTANT 10/25/2019 11:47 PM [employer] OBJECTS CONSULTANT Nanci Giron MD LAB BLOOD ORDERABLES Tiffany l Result [facility] [place] [address] * MRSA Only (Staphylococcus aureus) Culture Nasal (10/25/2019 11:40 AM [employer] BUSINESS OBJECTS CONSULTANT) Report Final Report: Negative [facility] Nasal 10/25/2019 11:4 0 AM [employer] OB[employer]S CONSULTANT 10/25/2019 12:31 PM [employer] BUSINESS OBJECTS CONSULTANT Narrative [facility] - 10/26/2019 1:34 PM [employer] OBJECTS CONSULTANT Testing performed by [facility] ([phone]). us Jayce Alvarez MD LAB MICROBIOLOGY - GENERAL ORDER EDD Final Result Performing Organization Address [facility] Co de Phone Number [facility] Department [place] [address] * POCT glucose (10/25/2019 11:34 AM [employer] OBJECTS CONSULTANT) Glucose, POC 155 70 - 199 mg/dL [facility] Blood specimen (specimen) 10/25/2019 11:34 AM [employer] OBJECTS CONSULTANT 10/25/2019 11:34 AM [employer] OBJECTS CONSULTANT us Nanci Giron MD LAB POCT ORDERABLES - DEV ICE Final Result Performing Organization Address [facility] de Phone Number [facility] Department [place] [address] * Critical Care (10/25/2019 11:07 AM [employer] BUSINESS OBJECTS CONSULTANT) Narrative Michael Marcelo MD - 10/25/2019 11:07 AM [employer] OBJECTS CONSULTANT Michael Mracelo MD ? 10/25/2019 11:08 AM Critical Care Performed by: Michael Marcelo MD Authorized by: Michael Marcelo MD CRITICAL CARE: ??Team: ??[id number] CTICU ??Shift: ??AM ??Level of Billing: ??Subsequent Hospital Visit Level 3 ??My time spent with this patient was 35 minutes: Critical Provider Statement: I have seen and examined the patient on this day of service. I have reviewed and confirmed the history, physical exam, laboratory, and radiographic data as documented in the ICU note. I have reviewed and discussed my treatment plan with the patient's team and other medical/sap bw consultant staff. This time was in addition to and separate from care provided by other practitioners on this day of service. ? Acute respiratory failure following procedure/surgery ??This time was spent by me doing the following: ? Serial neurovascular exams and Initiation/active titration of vasoactive medications ?? I spent time reviewing and interpreting data from bedside monitors, laboratory results, and imaging and I spent time documenting in the medical record Michael Marcelo MD IN CLINIC/BEDSIDE ORDERABL ES Final Result * POCT glucose (10/25/2019 8:13 AM [employer] OBJECTS CONSULTANT) Glucose, POC 117 70 - 199 mg/dL [facility] Blood specimen (specimen) 10/25/2019 8:13 AM [employer] OBJECTS CONSULTANT 10/25/2019 8:13 AM [employer] BUSINESS OBJECTS CONSULTANT Nanci Giron MD LAB POCT ORDERABLES - DEV ICE Final Result [facility] Department [place] [address] * Type and screen (10/25/2019 5:24 AM [employer] BUSINESS OBJECTS CONSULTANT) Pathologist [facility] ABO Rh O Positive [facility] Mara, indirect Negative [facility] Blood specimen (specimen) 10/25/2019 5:24 AM [employer] OBJECTS CONSULTANT 10/25/2019 5:35 AM [employer] BUSINESS OBJECTS CONSULTANT Narrative [facility] - 10/25/2019 6:26 AM [employer] BUSINESS OBJECTS CONSULTANT Has the patient had Daratumumab (Darzalex) in the past 6 months?->Unknown Mario House MD LAB BLOOD BANK TEST OR DERABLES Final Result [facility] Department [place] [address] * Differential, auto (10/25/2019 4:19 AM [employer] BUSINESS OBJECTS CONSULTANT) Neutrophil abs 4.4 1.7 - 6.5 K/cumm [facility] Imm gran abs 0.0 0.0 - 0.1 K/cumm [facility] Lymphocyte abs 1.6 0.8 - 3.3 K/cumm [facility] Monocyte abs 0.7 0.2 - 0.8 K/cumm [facility] Eosinophil abs 0.1 0.0 - 0.5 K/cumm [facility] Basophil abs 0.0 0.0 - 0.1 K/cumm [facility] Neutrophil pct 63.1 % [facility] Comment: Interpretive Data Percent cell count reference ranges are not reported, since discordance with absolute values may lead to misinterpretation of CBC data. Current Interpretive Data was last revised on 2017. Imm gran pct 0.6 % [facility] Comment: Interpretive Data Percent cell count reference ranges are not reported, since discordance with absolute values may lead to misinterpretation of CBC data. Current Interpretive Data was last revised on 2017. Lymphocyte pct 23.4 % [facility] Comment: Interpretive Data Percent cell count reference ranges are not reported, since discordance with absolute values may lead to misinterpretation of CBC data. Current Interpretive Data was last revised on 2017. Monocyte pct 10.6 % [facility] Comment: Interpretive Data Percent cell count reference ranges are not reported, since discordance with absolute values may lead to misinterpretation of CBC data. Current Interpretive Data was last revised on 2017. Eosinophil pct 2.0 % [facility] Comment: Interpretive Data Percent cell count reference ranges are not reported, since discordance with absolute values may lead to misinterpretation of CBC data. Current Interpretive Data was last revised on 2017. Basophil pct 0.3 % [facility] Comment: Interpretive Data Percent cell count reference ranges are not reported, since discordance with absolute values may lead to misinterpretation of CBC data. Current Interpretive Data was last revised on 2017. Blood specimen (specimen) 10/25/2019 4:19 AM [employer] BUSINESS OBJECTS CONSULTANT 10/25/2019 4:31 AM [employer] BUSINESS OBJECTS CONSULTANT us Nanci Giron MD LAB BLOOD ORDERABLES Tiffany pacheco Result [facility] [place] [address] * POCT glucose (10/25/2019 4:19 AM [employer] BUSINESS OBJECTS CONSULTANT) [facility] Signature Glucose, POC 120 70 - 199 mg/dL [facility] Blood specimen (specimen) 10/25/2019 4:19 AM [employer] BUSINESS OBJECTS CONSULTANT 10/25/2019 4:19 AM [employer] BUSINESS OBJECTS CONSULTANT Nanci Giron MD LAB POCT ORDERABLES - DEV ICE Final Result Performing Organization Address [facility] de Phone Number [facility] [place] [address] * Magnesium (10/25/2019 4:19 AM [employer] BUSINESS OBJECTS CONSULTANT) [facility] Magnesium 2.2 1.4 - 2.5 mg/dL [facility] Blood specimen (specimen) 10/25/2019 4:19 AM [employer] BUSINESS OBJECTS CONSULTANT 10/25/2019 4:31 AM [employer] BUSINESS OBJECTS CONSULTANT Nanci Giron MD LAB BLOOD ORDERABLES Tiffany l Result Performing Organization Address [facility] de Phone Number [facility] [place] [address] * (ABNORMAL) Basic metabolic panel (10/25/2019 4:19 AM [employer] BUSINESS OBJECTS CONSULTANT) [facility] Sodium 131(L) 135 - 145 mmol/L [facility] Potassium, pl 3.7 3.3 - 4.9 mmol/L [facility] Chloride 96(L) 97 - 110 mmol/L [facility] CO2 28 22 - 32 mmol/L [facility] Anion gap 7 2 - 15 mmol/L [facility] BUN 24 8 - 25 mg/dL [facility] Creatinine 0.98 0.60 - 1.10 mg/dL [facility] Glucose 105 70 - 199 mg/dL [facility] Comment: Interpretive Data Fasting glucose >/= 126 [...] 2017. Calcium 8.5 8.5 - 10.3 mg/dL [facility] Blood specimen (specimen) 10/25/2019 4:19 AM [employer] BUSINESS OBJECTS CONSULTANT 10/25/2019 4:31 AM [employer] BUSINESS OBJECTS CONSULTANT Nanci Giron MD LAB BLOOD ORDERABLES Tiffany l Result Performing Organization Address [facility]/ZIP Co de Phone Number [facility] Department [place] [address] * (ABNORMAL) CBC with auto differential (10/25/2019 4:19 AM [employer] BUSINESS OBJECTS CONSULTANT) WBC 6.9 3.8 - 9.9 K/cumm [facility] Hgb 8.2(L) 11.9 - 15.5 g/dL [facility] Hct 24.3(L) 35.6 - 45.5 % [facility] Plt 183 150 - 400 K/cumm [facility] MPV 9.6 9.1 - 12.3 fL [facility] RBC 2.68(L) 3.90 - 5.20 M/cumm [facility] MCV 90.7 81.3 - 96.4 fL [facility] MCH 30.6 27.1 - 33.3 pg [facility] MCHC 33.7 32.3 - 35.7 g/dL [facility] RDW CV 14.2 11.1 - 14.9 % [facility] RDW SD 46.3 35.7 - 48.1 fL [facility] NRBC abs 0.00 0.00 - 0.01 K/cumm [facility] Blood specimen (specimen) 10/25/2019 4:19 AM [employer] OBJECTS CONSULTANT 10/25/2019 4:31 AM [employer] BUSINESS OBJECTS CONSULTANT Nanci Giron MD LAB BLOOD ORDERABLES Tiffany l Result Performing Organization Address [facility]/[place] [address] * Phosphorus (10/25/2019 4:19 AM [employer] BUSINESS OBJECTS CONSULTANT) Phosphorus, pl 2.9 2.3 - 4.5 mg/dL [facility] Blood specimen (specimen) 10/25/2019 4:19 AM [employer] BUSINESS OBJECTS CONSULTANT 10/25/2019 4:31 AM [employer] BUSINESS OBJECTS CONSULTANT Rashmi Moura NP LAB BLOOD ORDERABLES Fi nal Result Performing Organization Address [facility] [place] [address] * (ABNORMAL) Calcium, ionized (10/25/2019 4:19 AM SAP BUSINESS OBJECTS CONSULTANT) [facility] Calcium, Ionized 4.44(L) 4.50 - 5.10 mg/dL [facility] Blood specimen (specimen) 10/25/2019 4:19 AM [employer] BUSINESS OBJECTS CONSULTANT 10/25/2019 4:28 AM [employer] BUSINESS OBJECTS CONSULTANT Rashmi Moura NP LAB BLOOD ORDERABLES Fi nal Result Performing Organization Address [facility] [place] [address] * POCT glucose (10/24/2019 11:08 PM [employer] BUSINESS OBJECTS CONSULTANT) Glucose, POC 134 70 - 199 mg/dL [facility] Blood specimen (specimen) 10/24/2019 11:08 PM [employer] BUSINESS OBJECTS CONSULTANT 10/24/2019 11:08 PM [employer] BUSINESS OBJECTS CONSULTANT Nanci Giron MD LAB POCT ORDERABLES - DEV ICE Final Result Performing Organization Address [facility] Co de Phone Number [facility] [place] [address] * XR Chest 1 View (10/24/2019 9:52 PM [employer] BUSINESS OBJECTS CONSULTANT) Anatomical Region Laterality Modality Body, Chest N/A Computed Radiogr aphy 10/25/2019 8:59 AM [employer] BUSINESS OBJECTS CONSULTANT Impressions 10/25/2019 10:08 AM [employer] BUSINESS OBJECTS CONSULTANT Comparison to prior dated 10/23/2019. Median sternotomy wires are intact and unchanged in alignment. Interval removal of right thoracostomy tubes. Similar appearance of right midlung and left basilar linear atelectasis. ??No new focal consolidation. ??No pleural effusion, pulmonary edema, or pneumothorax. ??Cardiomediastinal silhouette is unchanged. Dictated by: Mati Lozano M.D. The radiology attending physician has personally reviewed this study, and had reviewed and/or edited this written report and agrees with it. Electronically signed by: Austen Ghosh M.D. Narrative 10/25/2019 10:08 AM [employer] BUSINESS OBJECTS CONSULTANT EXAMINATION: 1 view chest radiograph Procedure Note Austen Ghosh MD - 10/25/2019 EXAMINATION: 1 view chest radiograph IMPRESSION: Comparison to prior dated 10/23/2019. Median sternotomy wires are intact and unchanged in alignment. Interval removal of right thoracostomy tubes. Similar appearance of right midlung and left basilar linear atelectasis. No new focal consolidation. No pleural effusion, pulmonary edema, or pneumothorax. Cardiomediastinal silhouette is unchanged. Dictated by: Mati Lozano M.D. The radiology attending physician has personally reviewed this study, and had reviewed and/or edited this written report and agrees with it. Electronically signed by: Austen Ghosh M.D. Nanci Giron MD IMG XR PROCEDURES Final R esult * ECG 12 lead (10/24/2019 8:21 PM [employer] BUSINESS OBJECTS CONSULTANT) Ventricular Rate EKG/Min 84 BPM [facility] Atrial Rate 84 BPM [facility] SC-Interval (MSEC) 156 ms [facility] QRS-Interval (MSEC) 104 ms [facility] QT-Interval (MSEC) 372 ms [facility] QTc 439 ms [facility] P Huggins 56 degrees [facility] R Huggins 14 degrees [facility] T Huggins 119 degrees [facility] Diagnosis Sinus rhythm with occasional Premature ventricular complexes Left ventricular hypertrophy with repolarization abnormality Abnormal ECG When compared with ECG of 22-OCT-2019 02:02, Premature ventricular complexes are now Present ST elevation now present in Inferior leads ST less depressed in Lateral leads T wave inversion now evident in Lateral leads Confirmed by PAT CORRIGAN M.D ([id number]) on 10/25/2019 3:10:01 PM [facility] 10/24/2019 8:21 PM [employer] BUSINESS OBJECTS CONSULTANT 10/25/2019 3:10 PM [employer] BUSINESS OBJECTS CONSULTANT us Nanci Giron MD ECG ORDERABLES Final Res ult Performing Organization Address [facility] Co de Phone Number [facility] * POCT glucose (10/24/2019 8:11 PM SAP BUSINESS OBJECTS CONSULTANT) Glucose, POC 141 70 - 199 mg/dL [facility] Blood specimen (specimen) 10/24/2019 8:11 PM [employer] BUSINESS OBJECTS CONSULTANT 10/24/2019 8:11 PM [employer] BUSINESS OBJECTS CONSULTANT Nanci Giron MD LAB POCT ORDERABLES - DEV ICE Final Result Performing Organization Address [facility] de Phone Number [facility] [place] [address] * Magnesium (10/24/2019 5:29 PM [employer] BUSINESS OBJECTS CONSULTANT) Magnesium 2.2 1.4 - 2.5 mg/dL [facility] Blood specimen (specimen) 10/24/2019 5:29 PM [employer] BUSINESS OBJECTS CONSULTANT 10/24/2019 5:41 PM [employer] BUSINESS OBJECTS CONSULTANT Suzi Haq MD LAB BLOOD ORDERABLE S Final Result Performing Organization Address [facility] de Phone Number [facility] Department [place] [address] * (ABNORMAL) Basic metabolic panel (10/24/2019 5:29 PM [employer] BUSINESS OBJECTS CONSULTANT) Sodium 129(L) 135 - 145 mmol/L [facility] Potassium, pl 4.0 3.3 - 4.9 mmol/L [facility] Chloride 94(L) 97 - 110 mmol/L [facility] CO2 28 22 - 32 mmol/L [facility] Anion gap 7 2 - 15 mmol/L [facility] BUN 27(H) 8 - 25 mg/dL [facility] Creatinine 1.09 0.60 - 1.10 mg/dL [facility] Glucose 128 70 - 199 mg/dL [facility] Comment: Interpretive Data Fasting glucose >/= 126 [...] interpretive data was last revised 2017. Calcium 8.7 8.5 - 10.3 mg/dL [facility] Blood specimen (specimen) 10/24/2019 5:29 PM [employer] BUSINESS OBJECTS CONSULTANT 10/24/2019 5:41 PM [employer] BUSINESS OBJECTS CONSULTANT us Suzi Haq MD LAB BLOOD ORDERABLE S Final Result [facility] [place] [address] * POCT glucose (10/24/2019 4:28 PM SAP BUSINESS OBJECTS CONSULTANT) Glucose, POC 138 70 - 199 mg/dL [facility] Blood specimen (specimen) 10/24/2019 4:28 PM [employer] BUSINESS OBJECTS CONSULTANT 10/24/2019 4:28 PM [employer] BUSINESS OBJECTS CONSULTANT us Nanci Giron MD LAB POCT ORDERABLES - DEV ICE Final Result Performing Organization Address City/State/[facility] Co de Phone Number [facility] Department [place] [address] * Critical Care (10/24/2019 12:48 PM SAP BUSINESS OBJECTS CONSULTANT) Michael Brunson MD - 10/24/2019 12:48 PM [employer] BUSINESS OBJECTS CONSULTANT Michael Marcelo MD ? 10/24/2019 12:49 PM Critical Care Performed by: Michael Marcelo MD Authorized by: Michael Marcelo MD CRITICAL CARE: ??Team: ??83 CTICU ??Shift: ??AM ??Level of Billing: ??Critical Care ??My time spent with this patient was 40 minutes: Critical Provider Statement: I have seen and examined the patient on this day of service. I have reviewed and confirmed the history, physical exam, laboratory and radiologic data as documented in the signed ICU note. I have reviewed and discussed my treatment plan with the ICU team and other medical/sap bw consultant staff, making frequent assessments and decisions regarding this patient's complex medical care. Critical Care time was exclusive of time spent performing separately billed procedures, treating other patients, and teaching. This time was in addition to and separate from critical care provided by other practitioners in my group on this day of service. Critical Care was necessary to treat or prevent imminent or life-threatening deterioration of the following conditions: ? Acute hypoxic respiratory failure and Acute respiratory failure following procedure/surgery ??This time was spent by me doing the following: ? Initiation/active titration of vasoactive medications ?? Active and frequent reassessment of respiratory status and oxygen requirements ?? Active diuresis ?? I spent time reviewing and interpreting data from bedside monitors, laboratory results, and imaging, I spent time discussing the management of this critically ill patient with consultants and the medical staff and I spent time documenting in the medical record us Michael Marcelo MD IN CLINIC/BEDSIDE ORDERABL ES Final Result * POCT glucose (10/24/2019 12:22 PM [employer] BUSINESS OBJECTS CONSULTANT) Glucose, POC 147 70 - 199 mg/dL [facility] Blood specimen (specimen) 10/24/2019 12:22 PM [employer] BUSINESS OBJECTS CONSULTANT 10/24/2019 12:22 PM [employer] BUSINESS OBJECTS CONSULTANT Nanci Giron MD LAB POCT ORDERABLES - DEV ICE Final Result [facility] [place] [address] * POCT glucose (10/24/2019 7:35 AM SAP BUSINESS OBJECTS CONSULTANT) Pathologist [facility] Glucose, POC 116 70 - 199 mg/dL [facility] Blood specimen (specimen) 10/24/2019 7:35 AM [employer] BUSINESS OBJECTS CONSULTANT 10/24/2019 7:35 AM SAP BUSINESS OBJECTS CONSULTANT Nanci Giron MD LAB POCT ORDERABLES - DEV ICE Final Result Performing Organization Address [facility] de Phone Number [facility] Department [place] [address] * (ABNORMAL) Differential, auto (10/24/2019 1:35 AM SAP BUSINESS OBJECTS CONSULTANT) Pathologist [facility] Neutrophil abs 7.9(H) 1.7 - 6.5 K/cumm [facility] Imm gran abs 0.1 0.0 - 0.1 K/cumm [facility] Lymphocyte abs 1.2 0.8 - 3.3 K/cumm [facility] Monocyte abs 0.8 0.2 - 0.8 K/cumm [facility] Eosinophil abs 0.0 0.0 - 0.5 K/cumm [facility] Basophil abs 0.0 0.0 - 0.1 K/cumm [facility] Neutrophil pct 79.1 % [facility] Comment: Interpretive Data Percent cell count reference ranges are not reported, since discordance with absolute values may lead to misinterpretation of CBC data. Current Interpretive Data was last revised on 2017. Imm gran pct 0.9 % [facility] Comment: Interpretive Data Percent cell count reference ranges are not reported, since discordance with absolute values may lead to misinterpretation of CBC data. Current Interpretive Data was last revised on 2017. Lymphocyte pct 11.8 % [facility] Comment: Interpretive Data Percent cell count reference ranges are not reported, since discordance with absolute values may lead to misinterpretation of CBC data. Current Interpretive Data was last revised on 2017. Monocyte pct 7.7 % [facility] Comment: Interpretive Data Percent cell count reference ranges are not reported, since discordance with absolute values may lead to misinterpretation of CBC data. Current Interpretive Data was last revised on 2017. Eosinophil pct 0.4 % [facility] Comment: Interpretive Data Percent cell count reference ranges are not reported, since discordance with absolute values may lead to misinterpretation of CBC data. Current Interpretive Data was last revised on 2017. Basophil pct 0.1 % [facility] Comment: Interpretive Data Percent cell count reference ranges are not reported, since discordance with absolute values may lead to misinterpretation of CBC data. Current Interpretive Data was last revised on 2017. Blood specimen (specimen) 10/24/2019 1:35 AM [employer] BUSINESS OBJECTS CONSULTANT 10/24/2019 1:59 AM [employer] BUSINESS OBJECTS CONSULTANT Nanci Giron MD LAB BLOOD ORDERABLES Tiffany l Result [facility] Department [place] [address] * (ABNORMAL) Phosphorus (10/24/2019 1:35 AM SAP BUSINESS OBJECTS CONSULTANT) Phosphorus, pl 2.2(L) 2.3 - 4.5 mg/dL [facility] Blood specimen (specimen) 10/24/2019 1:35 AM [employer] BUSINESS OBJECTS CONSULTANT 10/24/2019 1:59 AM [employer] BUSINESS OBJECTS CONSULTANT Nanci Giron MD LAB BLOOD ORDERABLES Tiffany l Result Performing Organization Address City/[facility]/ZIP Co de Phone Number [facility] Department [place] [address] * Magnesium (10/24/2019 1:35 AM SAP BUSINESS OBJECTS CONSULTANT) Pathologist [facility] Magnesium 2.0 1.4 - 2.5 mg/dL [facility] Blood specimen (specimen) 10/24/2019 1:35 AM [employer] BUSINESS OBJECTS CONSULTANT 10/24/2019 1:59 AM [employer] BUSINESS OBJECTS CONSULTANT Nanci Giron MD LAB BLOOD ORDERABLES Tiffany l Result [facility] Department [place] [address] * (ABNORMAL) Basic metabolic panel (10/24/2019 1:35 AM SAP BUSINESS OBJECTS CONSULTANT) [facility] Sodium 131(L) 135 - 145 mmol/L [facility] Potassium, pl 3.5 3.3 - 4.9 mmol/L [facility] Chloride 99 97 - 110 mmol/L [facility] CO2 26 22 - 32 mmol/L [facility] Anion gap 6 2 - 15 mmol/L [facility] BUN 22 8 - 25 mg/dL [facility] Creatinine 1.01 0.60 - 1.10 mg/dL [facility] Glucose 125 70 - 199 mg/dL [facility] Comment: Interpretive Data Fasting glucose >/= 126 [...] interpretive data was last revised 2017. Calcium 8.2(L) 8.5 - 10.3 mg/dL [facility] Blood specimen (specimen) 10/24/2019 1:35 AM [employer] BUSINESS OBJECTS CONSULTANT 10/24/2019 1:59 AM [employer] BUSINESS OBJECTS CONSULTANT Nanci Giron MD LAB BLOOD ORDERABLES Tiffany l Result Performing Organization Address [facility] de Phone Number [facility] Department [place] [address] * (ABNORMAL) CBC with auto differential (10/24/2019 1:35 AM SAP BUSINESS OBJECTS CONSULTANT) [facility] WBC 10.0(H) 3.8 - 9.9 K/cumm [facility] Hgb 8.0(L) 11.9 - 15.5 g/dL [facility] Hct 23.0(L) 35.6 - 45.5 % [facility] Plt 151 150 - 400 K/cumm [facility] MPV 9.5 9.1 - 12.3 fL [facility] RBC 2.50(L) 3.90 - 5.20 M/cumm [facility] MCV 92.0 81.3 - 96.4 fL [facility] MCH 32.0 27.1 - 33.3 pg [facility] MCHC 34.8 32.3 - 35.7 g/dL [facility] RDW CV 14.0 11.1 - 14.9 % [facility] RDW SD 47.0 35.7 - 48.1 fL [facility] NRBC abs 0.00 0.00 - 0.01 K/cumm [facility] Blood specimen (specimen) 10/24/2019 1:35 AM [employer] BUSINESS OBJECTS CONSULTANT 10/24/2019 1:59 AM SAP BUSINESS OBJECTS CONSULTANT Nanci Giron MD LAB BLOOD ORDERABLES Tiffany l Result Performing Organization Address [facility] Co de Phone Number [facility] Department [place] [address] * Lidocaine level (10/24/2019 1:35 AM SAP BUSINESS OBJECTS CONSULTANT) Pathologist [facility] Lidocaine (Xylocaine) 3.6 1.5 - 5.0 mcg/mL [facility] Blood specimen (specimen) 10/24/2019 1:35 AM [employer] BUSINESS OBJECTS CONSULTANT 10/24/2019 1:59 AM SAP BUSINESS OBJECTS CONSULTANT Nanci Giron MD LAB BLOOD ORDERABLES Tiffany l Result Performing Organization Address [facility] Co de Phone Number [facility] [place] [address] * POCT glucose (10/23/2019 11:43 PM SAP BUSINESS OBJECTS CONSULTANT) Glucose, POC 121 70 - 199 mg/dL [facility] Blood specimen (specimen) 10/23/2019 11:43 PM SAP BUSINESS OBJECTS CONSULTANT 10/23/2019 11:43 PM SAP BUSINESS OBJECTS CONSULTANT Nanci Giron MD LAB POCT ORDERABLES - DEV ICE Final Result Performing Organization Address [facility] de Phone Number [facility] [place] [address] * POCT glucose (10/23/2019 9:36 PM SAP BUSINESS OBJECTS CONSULTANT) Glucose, POC 119 70 - 199 mg/dL [facility] Blood specimen (specimen) 10/23/2019 9:36 PM SAP BUSINESS OBJECTS CONSULTANT 10/23/2019 9:36 PM SAP BUSINESS OBJECTS CONSULTANT Nanci Giron MD LAB POCT ORDERABLES - DEV ICE Final Result Performing Organization Address [facility] de Phone Number [facility] [place] [address] * XR Chest 1 View (10/23/2019 8:56 PM SAP BUSINESS OBJECTS CONSULTANT) Anatomical Region Laterality Modality Body, Chest N/A Computed Radiogr aphy 10/24/2019 8:57 AM SAP BUSINESS OBJECTS CONSULTANT Impressions 10/24/2019 10:54 AM SAP BUSINESS OBJECTS CONSULTANT Comparison is made with chest radiograph from 10/22/2019 Median sternotomy wires are aligned and intact. ??There are 2 right thoracotomy tubes unchanged. There are bibasilar atelectasis. ??There is a small left pleural effusion. ??No right pleural effusion. ??No pulmonary edema, pneumothorax. The cardiomediastinal silhouette is stable. Dictated by: Uday Brown M.D. The radiology attending physician has personally reviewed this study, and had reviewed and/or edited this written report and agrees with it. Electronically signed by: Raf Mcneill M.D. Narrative 10/24/2019 10:54 AM SAP BUSINESS OBJECTS CONSULTANT EXAMINATION: 1 view chest radiograph Procedure Note Raf Mcneill MD - 10/24/2019 EXAMINATION: 1 view chest radiograph IMPRESSION: Comparison is made with chest radiograph from 10/22/2019 Median sternotomy wires are aligned and intact. There are 2 right thoracotomy tubes unchanged. There are bibasilar atelectasis. There is a small left pleural effusion. No right pleural effusion. No pulmonary edema, pneumothorax. The cardiomediastinal silhouette is stable. Dictated by: Uday Brown M.D. The radiology attending physician has personally reviewed this study, and had reviewed and/or edited this written report and agrees with it. Electronically signed by: Raf Mcneill M.D. Nanci Giron MD IMG XR PROCEDURES Final R esult * POCT glucose (10/23/2019 3:28 PM SAP BUSINESS OBJECTS CONSULTANT) Glucose, POC 191 70 - 199 mg/dL [facility] Blood specimen (specimen) 10/23/2019 3:28 PM SAP BUSINESS OBJECTS CONSULTANT 10/23/2019 3:28 PM SAP BUSINESS OBJECTS CONSULTANT Nanci Giron MD LAB POCT ORDERABLES - DEV ICE Final Result [facility] [place] [address] * POCT glucose (10/23/2019 12:10 PM SAP BUSINESS OBJECTS CONSULTANT) Glucose, POC 124 70 - 199 mg/dL [facility] Blood specimen (specimen) 10/23/2019 12:10 PM SAP BUSINESS OBJECTS CONSULTANT 10/23/2019 12:10 PM SAP BUSINESS OBJECTS CONSULTANT us Nanci Giron MD LAB POCT ORDERABLES - DEV ICE Final Result [facility] Department [place] [address] * Critical Care (10/23/2019 11:12 AM SAP BUSINESS OBJECTS CONSULTANT) Narrative Michael Marcelo MD - 10/23/2019 11:12 AM SAP BUSINESS OBJECTS CONSULTANT Michael Marcelo MD ? 10/23/2019 11:14 AM Critical Care Performed by: Michael Marcelo MD Authorized by: Michael Marcelo MD CRITICAL CARE: ??Team: ??83 CTICU ??Shift: ??AM ??Level of Billing: ??Critical Care ??My time spent with this patient was 40 minutes: Critical Provider Statement: I have seen and examined the patient on this day of service. I have reviewed and confirmed the history, physical exam, laboratory and radiologic data as documented in the signed ICU note. I have reviewed and discussed my treatment plan with the ICU team and other medical/sap bw consultant staff, making frequent assessments and decisions regarding this patient's complex medical care. Critical Care time was exclusive of time spent performing separately billed procedures, treating other patients, and teaching. This time was in addition to and separate from critical care provided by other practitioners in my group on this day of service. Critical Care was necessary to treat or prevent imminent or life-threatening deterioration of the following conditions: ? Hypertensive crisis ?? Acute hypoxic respiratory failure ??This time was spent by me doing the following: ? Frequent neurologic exams ?? Initiation/active titration of vasoactive medications ?? Optiflow support and Active and frequent reassessment of respiratory status and oxygen requirements ?? I spent time reviewing and interpreting data from bedside monitors, laboratory results, and imaging, I spent time discussing the management of this critically ill patient with consultants and the medical staff and I spent time documenting in the medical record us Michael Marcelo MD IN CLINIC/BEDSIDE ORDERABL ES Final Result * POCT glucose (10/23/2019 7:51 AM SAP BUSINESS OBJECTS CONSULTANT) [facility] Glucose, POC 159 70 - 199 mg/dL [facility] Blood specimen (specimen) 10/23/2019 7:51 AM SAP BUSINESS OBJECTS CONSULTANT 10/23/2019 7:51 AM SAP BUSINESS OBJECTS CONSULTANT Nanci Giron MD LAB POCT ORDERABLES - DEV ICE Final Result Performing Organization Address City/[facility] Co de Phone Number [facility] [place] [address] * Type and screen (10/22/2019 11:59 PM SAP BUSINESS OBJECTS CONSULTANT) [facility] Mara, indirect Negative [facility] ABO Rh O Positive [facility] Blood specimen (specimen) 10/22/2019 11:59 PM SAP BUSINESS OBJECTS CONSULTANT 10/23/2019 12:19 AM SAP BUSINESS OBJECTS CONSULTANT Narrative [facility] - 10/23/2019 1:09 AM SAP BUSINESS OBJECTS CONSULTANT Has the patient had Daratumumab (Darzalex) in the past 6 months?->Unknown Nanci Giron MD LAB BLOOD BANK TEST ORDER EDD Final Result Performing Organization Address [facility] Co de Phone Number [facility] [place] [address] * POCT glucose (10/22/2019 11:53 PM SAP BUSINESS OBJECTS CONSULTANT) [facility] Glucose, POC 159 70 - 199 mg/dL [facility] Blood specimen (specimen) 10/22/2019 11:53 PM SAP BUSINESS OBJECTS CONSULTANT 10/22/2019 11:53 PM SAP BUSINESS OBJECTS CONSULTANT Nanci Giron MD LAB POCT ORDERABLES - DEV ICE Final Result Performing Organization Address [facility] Co de Phone Number [facility] [place] [address] * Phosphorus (10/22/2019 11:50 PM SAP BUSINESS OBJECTS CONSULTANT) Phosphorus, pl 2.5 2.3 - 4.5 mg/dL [facility] Blood specimen (specimen) 10/22/2019 11:50 PM SAP BUSINESS OBJECTS CONSULTANT 10/23/2019 12:09 AM SAP BUSINESS OBJECTS CONSULTANT Nanci Giron MD LAB BLOOD ORDERABLES Tiffany l Result Performing Organization Address City/[facility]/ZIP Co de Phone Number [facility] Department [place] [address] * Magnesium (10/22/2019 11:50 PM SAP BUSINESS OBJECTS CONSULTANT) [facility] Magnesium 2.1 1.4 - 2.5 mg/dL [facility] Blood specimen (specimen) 10/22/2019 11:50 PM SAP BUSINESS OBJECTS CONSULTANT 10/23/2019 12:09 AM SAP BUSINESS OBJECTS CONSULTANT Nanci Giron MD LAB BLOOD ORDERABLES Tiffany l Result Performing Organization Address [facility] de Phone Number [facility] [place] [address] * (ABNORMAL) Basic metabolic panel (10/22/2019 11:50 PM SAP BUSINESS OBJECTS CONSULTANT) [facility] Sodium 133(L) 135 - 145 mmol/L [facility] Potassium, pl 4.2 3.3 - 4.9 mmol/L [facility] Chloride 104 97 - 110 mmol/L [facility] CO2 22 22 - 32 mmol/L [facility] Anion gap 7 2 - 15 mmol/L [facility] BUN 23 8 - 25 mg/dL [facility] Creatinine 1.05 0.60 - 1.10 mg/dL [facility] Glucose 177 70 - 199 mg/dL [facility] Comment: Interpretive Data Fasting glucose >/= 126 [...] interpretive data was last revised 2017. Calcium 8.6 8.5 - 10.3 mg/dL [facility] Blood specimen (specimen) 10/22/2019 11:50 PM SAP BUSINESS OBJECTS CONSULTANT 10/23/2019 12:09 AM SAP BUSINESS OBJECTS CONSULTANT Nanci Giron MD LAB BLOOD ORDERABLES Tiffany l Result Performing Organization Address [facility] Co de Phone Number [facility] Department [place] [address] * (ABNORMAL) CBC without differential (10/22/2019 11:50 PM SAP BUSINESS OBJECTS CONSULTANT) WBC 15.8(H) 3.8 - 9.9 K/cumm [facility] Hgb 9.2(L) 11.9 - 15.5 g/dL [facility] Hct 26.9(L) 35.6 - 45.5 % [facility] Plt 169 150 - 400 K/cumm [facility] MPV 9.7 9.1 - 12.3 fL [facility] RBC 2.94(L) 3.90 - 5.20 M/cumm [facility] MCV 91.5 81.3 - 96.4 fL [facility] MCH 31.3 27.1 - 33.3 pg [facility] MCHC 34.2 32.3 - 35.7 g/dL [facility] RDW CV 14.6 11.1 - 14.9 % [facility] RDW SD 48.4(H) 35.7 - 48.1 fL [facility] NRBC abs 0.00 0.00 - 0.01 K/cumm [facility] Blood specimen (specimen) 10/22/2019 11:50 PM SAP BUSINESS OBJECTS CONSULTANT 10/23/2019 12:09 AM SAP BUSINESS OBJECTS CONSULTANT Nanci Giron MD LAB BLOOD ORDERABLES Tiffany l Result Performing Organization Address City/State/[facility] de Phone Number [facility] [place] [address] * Lidocaine level (10/22/2019 11:50 PM SAP BUSINESS OBJECTS CONSULTANT) Pathologist [facility] Lidocaine (Xylocaine) 3.8 1.5 - 5.0 mcg/mL [facility] Blood specimen (specimen) 10/22/2019 11:50 PM SAP BUSINESS OBJECTS CONSULTANT 10/23/2019 12:09 AM SAP BUSINESS OBJECTS CONSULTANT Narrative [facility] - 10/23/2019 4:44 AM SAP BUSINESS OBJECTS CONSULTANT Draw 24 hours after infusion started. Nanci Giron MD LAB BLOOD ORDERABLES Tiffany l Result Performing Organization Address [facility] de Phone Number [facility] [place] [address] * POCT glucose (10/22/2019 8:20 PM SAP BUSINESS OBJECTS CONSULTANT) [facility] Glucose, POC 159 70 - 199 mg/dL [facility] Blood specimen (specimen) 10/22/2019 8:20 PM SAP BUSINESS OBJECTS CONSULTANT 10/22/2019 8:20 PM SAP BUSINESS OBJECTS CONSULTANT Nanci Giron MD LAB POCT ORDERABLES - DEV ICE Final Result Performing Organization Address [facility] Co de Phone Number [facility] [place] [address] * XR Chest 1 View (10/22/2019 4:15 PM SAP BUSINESS OBJECTS CONSULTANT) Anatomical Region Laterality Modality Body, Chest N/A Computed Radiogr aphy 10/23/2019 7:17 AM SAP BUSINESS OBJECTS CONSULTANT Impressions 10/23/2019 7:17 AM SAP BUSINESS OBJECTS CONSULTANT Comparison is made to the prior from 10/21/2019. The patient is status post a median sternotomy, mediastinal wires are aligned. The stomach and a right chest tube are again seen. Heart size is enlarged, but unchanged. There is bibasilar atelectasis, slightly improved from the prior. Small left pleural effusion unchanged. No pneumothorax. Electronically signed by: Mati Dale M.D. Narrative 10/23/2019 7:17 AM SAP BUSINESS OBJECTS CONSULTANT EXAMINATION: 1 view chest radiograph Procedure Note Mati Dale MD - 10/23/2019 EXAMINATION: 1 view chest radiograph IMPRESSION: Comparison is made to the prior from 10/21/2019. The patient is status post a median sternotomy, mediastinal wires are aligned. The stomach and a right chest tube are again seen. Heart size is enlarged, but unchanged. There is bibasilar atelectasis, slightly improved from the prior. Small left pleural effusion unchanged. No pneumothorax. Electronically signed by: Mati Dale M.D. us Mario House MD IMG XR PROCEDURES Tiffany l Result * POCT glucose (10/22/2019 4:10 PM SAP BUSINESS OBJECTS CONSULTANT) Glucose, POC 154 70 - 199 mg/dL [facility] Blood specimen (specimen) 10/22/2019 4:10 PM SAP BUSINESS OBJECTS CONSULTANT 10/22/2019 4:10 PM SAP BUSINESS OBJECTS CONSULTANT Nanci Giron MD LAB POCT ORDERABLES - DEV ICE Final Result [facility] [place] [address] * Critical Care (10/22/2019 12:06 PM SAP BUSINESS OBJECTS CONSULTANT) Narrative Michael Marcelo MD - 10/22/2019 12:06 PM SAP BUSINESS OBJECTS CONSULTANT Michael Marcelo MD ? 10/22/2019 12:06 PM Critical Care Performed by: Michael Marcelo MD Authorized by: Michael Marcelo MD CRITICAL CARE: ??Team: ??83 CTICU ??Shift: ??AM ??Level of Billing: ??Critical Care ??My time spent with this patient was 40 minutes: Critical Provider Statement: I have seen and examined the patient on this day of service. I have reviewed and confirmed the history, physical exam, laboratory and radiologic data as documented in the signed ICU note. I have reviewed and discussed my treatment plan with the ICU team and other medical/sap bw consultant staff, making frequent assessments and decisions regarding this patient's complex medical care. Critical Care time was exclusive of time spent performing separately billed procedures, treating other patients, and teaching. This time was in addition to and separate from critical care provided by other practitioners in my group on this day of service. Critical Care was necessary to treat or prevent imminent or life-threatening deterioration of the following conditions: ? Hypotension ??This time was spent by me doing the following: ? Serial bedside patient exams ?? Initiation/active titration of vasoactive medications and Serial neurovascular exams ?? I spent time reviewing and interpreting data from bedside monitors, laboratory results, and imaging, I spent time discussing the management of this critically ill patient with consultants and the medical staff and I spent time documenting in the medical record us Michael Marcelo MD IN CLINIC/BEDSIDE ORDERABL ES Final Result * POCT glucose (10/22/2019 11:48 AM [employer] OBJECTS CONSULTANT) [facility] Glucose, POC 171 70 - 199 mg/dL [facility] Blood specimen (specimen) 10/22/2019 11:48 AM [employer] OBJECTS CONSULTANT 10/22/2019 11:48 AM [employer] OBJECTS CONSULTANT Nanci Giron MD LAB POCT ORDERABLES - DEV ICE Final Result [facility] Department [place] [address] * (ABNORMAL) CBC without differential (10/22/2019 11:37 AM [employer] OBJECTS CONSULTANT) [facility] WBC 15.1(H) 3.8 - 9.9 K/cumm [facility] Hgb 10.1(L) 11.9 - 15.5 g/dL [facility] Hct 29.8(L) 35.6 - 45.5 % [facility] Plt 207 150 - 400 K/cumm [facility] MPV 9.7 9.1 - 12.3 fL [facility] RBC 3.25(L) 3.90 - 5.20 M/cumm [facility] MCV 91.7 81.3 - 96.4 fL [facility] MCH 31.1 27.1 - 33.3 pg [facility] MCHC 33.9 32.3 - 35.7 g/dL [facility] RDW CV 14.2 11.1 - 14.9 % [facility] RDW SD 47.8 35.7 - 48.1 fL [facility] NRBC abs 0.00 0.00 - 0.01 K/cumm [facility] Blood specimen (specimen) 10/22/2019 11:37 AM [employer]JECTS CONSULTANT 10/22/2019 11:48 AM [employer] OBJECTS CONSULTANT Nanci Giron MD LAB BLOOD ORDERABLES Tiffany l Result Performing Organization Address [facility] de Phone Number [facility] Department [place] [address] * Lidocaine level (10/22/2019 8:32 AM [employer]S CONSULTANT) Lidocaine (Xylocaine) 3.2 1.5 - 5.0 mcg/mL [facility] Blood specimen (specimen) 10/22/2019 8:32 AM [employer]JECTS CONSULTANT 10/22/2019 8:37 AM [employer] OBJECTS CONSULTANT Mario House MD LAB BLOOD ORDERABLES F inal Result Performing Organization Address [facility] de Phone Number [facility] Department [place] [address] * POCT glucose (10/22/2019 7:47 AM [employer]S CONSULTANT) Glucose, POC 186 70 - 199 mg/dL [facility] Blood specimen (specimen) 10/22/2019 7:47 AM [employer] OBJECTS CONSULTANT 10/22/2019 7:47 AM [employer] OBJECTS CONSULTANT Nanci Giron MD LAB POCT ORDERABLES - DEV ICE Final Result Performing Organization Address [facility]/ZIP Co de Phone Number [facility] Department [place] [address] * POCT glucose (10/22/2019 3:41 AM [employer] OBJECTS CONSULTANT) [facility] Glucose, POC 116 70 - 199 mg/dL [facility] Blood specimen (specimen) 10/22/2019 3:41 AM [employer]S CONSULTANT 10/22/2019 3:41 AM [employer]JECTS CONSULTANT us Nanci Giron MD LAB POCT ORDERABLES - DEV ICE Final Result Performing Organization Address [facility] de Phone Number [facility] [place] [address] * ECG 12 lead (10/22/2019 2:02 AM [employer] OB[employer]S CONSULTANT) [facility] Ventricular Rate EKG/Min 79 BPM [facility] Atrial Rate 79 BPM [facility] SC-Interval (MSEC) 162 ms [facility] QRS-Interval (MSEC) 98 ms [facility] QT-Interval (MSEC) 400 ms [facility] QTc 458 ms [facility] P Huggins 47 degrees [facility] R Huggins 3 degrees [facility] T Huggins 9 degrees [facility] Diagnosis Normal sinus rhythm Moderate voltage criteria for LVH, may be normal variant Nonspecific ST abnormality Abnormal ECG When compared with ECG of 18-OCT-2019 00:33, No significant change was found Confirmed by PAT CORRIGAN M.D ([id number]) on 10/25/2019 2:04:04 PM [facility] 10/22/2019 2:02 AM [employer]S CONSULTANT 10/25/2019 2:04 PM [employer]S CONSULTANT us Nanci Giron MD ECG ORDERABLES Final Res ult Performing Organization Address [facility] Co de Phone Number [facility] * (ABNORMAL) Basic metabolic panel (10/22/2019 1:24 AM [employer] OB[employer]S CONSULTANT) [facility] Sodium 139 135 - 145 mmol/L [facility] Potassium, pl 4.0 3.3 - 4.9 mmol/L [facility] Chloride 110 97 - 110 mmol/L [facility] CO2 21(L) 22 - 32 mmol/L [facility] Anion gap 8 2 - 15 mmol/L [facility] BUN 19 8 - 25 mg/dL [facility] Creatinine 0.79 0.60 - 1.10 mg/dL [facility] Glucose 156 70 - 199 mg/dL [facility] Comment: Interpretive Data Fasting glucose >/= 126 [...] interpretive data was last revised 2017. Calcium 8.8 8.5 - 10.3 mg/dL [facility] Blood specimen (specimen) 10/22/2019 1:24 AM [employer]S CONSULTANT 10/22/2019 1:29 AM [employer]JECTS CONSULTANT Nanci Giron MD LAB BLOOD ORDERABLES Tiffany l Result Performing Organization Address [facility]/ZIP Co de Phone Number [facility] [place] [address] * Phosphorus (10/22/2019 1:24 AM [employer] OB[employer]S CONSULTANT) Pathologist [facility] Phosphorus, pl 3.4 2.3 - 4.5 mg/dL [facility] Blood specimen (specimen) 10/22/2019 1:24 AM [employer]S CONSULTANT 10/22/2019 1:29 AM [employer] OBJECTS CONSULTANT Nanci Giron MD LAB BLOOD ORDERABLES Tiffany l Result Performing Organization Address City/[facility] Co de Phone Number [facility] [place] [address] * Magnesium (10/22/2019 1:24 AM [employer] OBJECTS CONSULTANT) Pathologist [facility] Magnesium 1.9 1.4 - 2.5 mg/dL [facility] Blood specimen (specimen) 10/22/2019 1:24 AM [employer] OB[employer]S CONSULTANT 10/22/2019 1:29 AM [employer]S CONSULTANT Nanci Giron MD LAB BLOOD ORDERABLES Tiffany l Result Performing Organization Address [facility] Co de Phone Number [facility] Department [place] [address] * (ABNORMAL) CBC without differential (10/22/2019 1:24 AM [employer] OB[employer]S CONSULTANT) [facility] WBC 10.3(H) 3.8 - 9.9 K/cumm [facility] Hgb 10.3(L) 11.9 - 15.5 g/dL [facility] Hct 30.2(L) 35.6 - 45.5 % [facility] Plt 154 150 - 400 K/cumm [facility] MPV 9.4 9.1 - 12.3 fL [facility] RBC 3.33(L) 3.90 - 5.20 M/cumm [facility] MCV 90.7 81.3 - 96.4 fL [facility] MCH 30.9 27.1 - 33.3 pg [facility] MCHC 34.1 32.3 - 35.7 g/dL [facility] RDW CV 13.9 11.1 - 14.9 % [facility] RDW SD 45.5 35.7 - 48.1 fL [facility] NRBC abs 0.00 0.00 - 0.01 K/cumm [facility] Blood specimen (specimen) 10/22/2019 1:24 AM [employer]S CONSULTANT 10/22/2019 1:40 AM [employer]JECTS CONSULTANT Nanci Giron MD LAB BLOOD ORDERABLES Tiffany l Result Performing Organization Address [facility]/ZIP Co de Phone Number [facility] Department [place] [address] * POCT glucose (10/22/2019 12:10 AM [employer] OBJECTS CONSULTANT) Pathologist [facility] Glucose, POC 139 70 - 199 mg/dL [facility] Blood specimen (specimen) 10/22/2019 12:10 AM [employer] OB[employer]S CONSULTANT 10/22/2019 12:10 AM [employer] OBJECTS CONSULTANT Nanci Giron MD LAB POCT ORDERABLES - DEV ICE Final Result [facility] Department [place] [address] * (ABNORMAL) CBC without differential (10/21/2019 10:20 PM [employer] OBJECTS CONSULTANT) [facility] WBC 10.4(H) 3.8 - 9.9 K/cumm [facility] Hgb 10.3(L) 11.9 - 15.5 g/dL [facility] Comment:Hemoglobin delta due to apparent blood transfusion. Hct 30.7(L) 35.6 - 45.5 % [facility] Plt 144(L) 150 - 400 K/cumm [facility] MPV 9.5 9.1 - 12.3 fL [facility] RBC 3.32(L) 3.90 - 5.20 M/cumm [facility] MCV 92.5 81.3 - 96.4 fL [facility] MCH 31.0 27.1 - 33.3 pg [facility] MCHC 33.6 32.3 - 35.7 g/dL [facility] RDW CV 13.7 11.1 - 14.9 % [facility] RDW SD 46.4 35.7 - 48.1 fL [facility] NRBC abs 0.00 0.00 - 0.01 K/cumm [facility] Blood specimen (specimen) 10/21/2019 10:20 PM [employer] OBJECTS CONSULTANT 10/21/2019 10:33 PM [employer] OBJECTS CONSULTANT Narrative [facility] - 10/21/2019 10:47 PM [employer]S CONSULTANT 1 hour after transfusion of red blood cells is complete Nanci Grion MD LAB BLOOD ORDERABLES Tiffany l Result [facility] Department [place] [address] * Transfuse RBC (10/21/2019 9:04 PM [employer]S CONSULTANT) Blood specimen (specimen) Nanci Giron MD BLOOD TRANSFUSION ORDERAB LES Final Result Performing Organization Address City/[facility]/ZIP Co de Phone Number [facility] Department [place] [address] * Transfuse RBC: 1 Units (10/21/2019 9:04 PM [employer] OBJECTS CONSULTANT) Blood specimen (specimen) Nanci Giron MD BLOOD TRANSFUSION ORDERAB LES Final Result * XR Chest 1 View (10/21/2019 8:38 PM [employer] OBJECTS CONSULTANT) Anatomical Region Laterality Modality Body, Chest N/A Computed Radiogr aphy 10/22/2019 8:07 AM [employer] OBJECTS CONSULTANT Impressions 10/22/2019 10:47 AM [employer] OBJECTS CONSULTANT First exam comparison is made with chest radiograph from 10/10/2019 There is endotracheal tube 4.8 cm above the [place]. ??2 thoracotomy tubes are present. ??Subcutaneous gas is present. ??The patient is status post a median sternotomy, mediastinal wires are aligned. There are haziness in the left lung base which is due to atelectasis with small left pleural effusion. ??No pneumothorax. ??No pulmonary edema. ??The cardiomediastinal silhouette is stable. Second exam ??there is no significant interval change Dictated by: Uday Brown M.D. The radiology attending physician has personally reviewed this study, and had reviewed and/or edited this written report and agrees with it. Electronically signed by: Werner Calvillo M.D. Narrative 10/22/2019 10:47 AM [employer] OBJECTS CONSULTANT Examination: 2 portable chests Chest one view portable Chest one view portable Procedure Note Werner Calvillo MD - 10/22/2019 Examination: 2 portable chests Chest one view portable Chest one view portable IMPRESSION: First exam comparison is made with chest radiograph from 10/10/2019 There is endotracheal tube 4.8 cm above the [place]. 2 thoracotomy tubes are present. Subcutaneous gas is present. The patient is status post a median sternotomy, mediastinal wires are aligned. There are haziness in the left lung base which is due to atelectasis with small left pleural effusion. No pneumothorax. No pulmonary edema. The cardiomediastinal silhouette is stable. Second exam there is no significant interval change Dictated by: Uday Brown M.D. The radiology attending physician has personally reviewed this study, and had reviewed and/or edited this written report and agrees with it. Electronically signed by: Werner Calvillo M.D. Nanci Giron MD IMG XR PROCEDURES Final R esult * POCT glucose (10/21/2019 8:24 PM [employer] OBJECTS CONSULTANT) Glucose, POC 158 70 - 199 mg/dL [facility] Blood specimen (specimen) 10/21/2019 8:24 PM [employer] OBJECTS CONSULTANT 10/21/2019 8:24 PM [employer] OBJECTS CONSULTANT Nanci Giron MD LAB POCT ORDERABLES - DEV ICE Final Result [facility] Department [place] [address] * MRSA Only (Staphylococcus aureus) Culture Nasal (10/21/2019 6:50 PM [employer] OBJECTS CONSULTANT) Report Final Report: Negative [facility] Nasal 10/21/2019 6:5 0 PM [employer] OB[employer]S CONSULTANT 10/21/2019 7:17 PM [employer] OBJECTS CONSULTANT Narrative [facility] - 10/22/2019 9:58 PM [employer] OBJECTS CONSULTANT Testing performed by [facility] ([phone]). Mario House MD LAB MICROBIOLOGY - GEN ERAL ORDERABLES Final Result Performing Organization Address [facility] Co de Phone Number [facility] [place] [address] * Infection Prevention MRSA Only (Staphylococcus aureus) Culture Nasal (10/21/2019 6:50 PM [employer] OBJECTS CONSULTANT) Report Final Report: Negative [facility] Nasal 10/21/2019 6:50 PM [employer] OBJECTS CONSULTANT 10/21/2019 7:17 PM [employer] BUSINESS OBJECTS CONSULTANT Narrative [facility] - 10/23/2019 7:21 AM [employer] OBJECTS CONSULTANT Testing performed by [facility] ([phone]). Nanci Giron MD LAB MICROBIOLOGY - GENERA L ORDERABLES Final Result Performing Organization Address [facility] Co de Phone Number [facility] [place] [address] * (ABNORMAL) Blood gas, arterial (10/21/2019 6:47 PM [employer] OBJECTS CONSULTANT) pH, Art 7.34(L) 7.35 - 7.45 [facility] PCO2, Arterial 38 35 - 45 mmHg [facility] PO2, Arterial 161(H) 83 - 108 mmHg [facility] HCO3 Art (Calculated) 21 20 - 30 mmol/L [facility] BE, art -5 mmol/L [facility] Comment: Interpretive Data No Reference Range Established Current Interpretive Data was last revised on 2017 O2 Sat Art (Measured) 99(H) 90 - 95 % [facility] Blood specimen (specimen) 10/21/2019 6:47 PM [employer] OBJECTS CONSULTANT 10/21/2019 6:50 PM [employer] OBJECTS CONSULTANT Nanci Giron MD LAB BLOOD ORDERABLES Tiffany l Result Performing Organization Address [facility] Co de Phone Number [facility] [place] [address] * Potassium, whole blood (10/21/2019 6:47 PM [employer] BUSINESS OBJECTS CONSULTANT) Pathologist [facility] Potassium, bld 4.3 3.3 - 4.9 mmol/L [facility] Blood specimen (specimen) 10/21/2019 6:47 PM [employer] OBJECTS CONSULTANT 10/21/2019 6:50 PM [employer] BUSINESS OBJECTS CONSULTANT Nanci Giron MD LAB BLOOD ORDERABLES Tiffany l Result Performing Organization Address [facility] Co de Phone Number [facility] Department [place] [address] * Prepare RBC: 1 Units (10/21/2019 6:34 PM [employer] OBJECTS CONSULTANT) [facility] Product code [id number] [facility] Unit Number [id number] [facility] Product Blood Type OPOS [facility] Dispense Status PRESUMED TRANSFUSED [facility] Blood specimen (specimen) 10/21/2019 6:34 PM [employer] OBJECTS CONSULTANT 10/21/2019 6:34 PM [employer] OBJECTS CONSULTANT Narrative [facility] - 10/22/2019 12:48 AM [employer] OBJECTS CONSULTANT Are special requirements needed? (all products are leukoreduced)->No Date required:-20191021 LRRBC # of [id number] Reasons:-Active bleeding, Hgb <8 g/dL} Nanci Giron MD BLOOD BANK PRODUCT ORDERA BLES Final Result Performing Organization Address [facility] Co de Phone Number [facility] Department [place] [address] * Lactate, whole blood (10/21/2019 5:29 PM [employer] BUSINESS OBJECTS CONSULTANT) [facility] Lactate, bld 1.7 0.7 - 2.0 mmol/L [facility] Blood specimen (specimen) 10/21/2019 5:29 PM [employer] OBJECTS CONSULTANT 10/21/2019 5:34 PM [employer] OBJECTS CONSULTANT Nanci Giron MD LAB BLOOD ORDERABLES Tiffany l Result Performing Organization Address [facility] de Phone Number [facility] [place] [address] * aPTT (10/21/2019 5:29 PM [employer] OBJECTS CONSULTANT) aPTT 27 25 - 37 sec [facility] Comment: Interpretive data Heparin therapeutic range: 60-90 seconds Range based on correlation with therapeutic heparin activity range of 0.3-0.7 units/ml. Current interpretive data was last revised on 2019. Blood specimen (specimen) 10/21/2019 5:29 PM [employer] OBJECTS CONSULTANT 10/21/2019 5:59 PM [employer] BUSINESS OBJECTS CONSULTANT Result [facility] Nanci Giron MD LAB BLOOD ORDERABLES Tiffany l Result Performing Organization Address [facility] de Phone Number [facility] [place] [address] * (ABNORMAL) Protime-INR (10/21/2019 5:29 PM [employer]S CONSULTANT) PT 15.6(H) 8.6 - 13.0 sec [facility] INR 1.4(H) 0.8 - 1.2 [facility] Comment: Interpretive data Oral anticoagulant therapeutic ranges: Venous thromboembolism prophylaxis or treatment: 2.0-3.0 CARDIOLOGY Standard range: 2.0-3.0 High-intensity range: 2.5-3.5 Refer to indication-specific guidelines for appropriate target ranges for prosthetic heart valve replacement. Current interpretive data was last revised on 2019. Blood specimen (specimen) 10/21/2019 5:29 PM [employer] OBJECTS CONSULTANT 10/21/2019 5:59 PM [employer] BUSINESS OBJECTS CONSULTANT Result [facility] Nanci Giron MD LAB BLOOD ORDERABLES Tiffany l Result Performing Organization Address [facility] Co de Phone Number [facility] [place] [address] * (ABNORMAL) CBC without differential (10/21/2019 5:29 PM [employer] BUSINESS OBJECTS CONSULTANT) Pathologist [facility] WBC 13.8(H) 3.8 - 9.9 K/cumm [facility] Hgb 7.1(L) 11.9 - 15.5 g/dL [facility] Comment:Hemoglobin delta due to surgical procedure. Hct 21.8(L) 35.6 - 45.5 % [facility] Plt 144(L) 150 - 400 K/cumm [facility] MPV 9.5 9.1 - 12.3 fL [facility] RBC 2.31(L) 3.90 - 5.20 M/cumm [facility] MCV 94.4 81.3 - 96.4 fL [facility] MCH 30.7 27.1 - 33.3 pg [facility] MCHC 32.6 32.3 - 35.7 g/dL [facility] RDW CV 13.8 11.1 - 14.9 % [facility] RDW SD 47.0 35.7 - 48.1 fL [facility] NRBC abs 0.00 0.00 - 0.01 K/cumm [facility] Blood specimen (specimen) 10/21/2019 5:29 PM [employer] OBJECTS CONSULTANT 10/21/2019 5:36 PM [employer] OBJECTS CONSULTANT us Nanci Giron MD LAB BLOOD ORDERABLES Tiffany pacheco Result [facility] Department [place] [address] * (ABNORMAL) Blood gas, arterial (10/21/2019 5:29 PM [employer] OBJECTS CONSULTANT) Pathologist [facility] pH, Art 7.33(L) 7.35 - 7.45 [facility] PCO2, Arterial 38 35 - 45 mmHg [facility] PO2, Arterial 156(H) 83 - 108 mmHg [facility] HCO3 Art (Calculated) 20 20 - 30 mmol/L [facility] BE, art -6 mmol/L [facility] Comment: Interpretive Data No Reference Range Established Current Interpretive Data was last revised on 2017 O2 Sat Art (Measured) 99(H) 90 - 95 % [facility] Blood specimen (specimen) 10/21/2019 5:29 PM [employer] OBJECTS CONSULTANT 10/21/2019 5:34 PM [employer] OBJECTS CONSULTANT Nanci Giron MD LAB BLOOD ORDERABLES Tiffany l Result Performing Organization Address [facility] Co de Phone Number [facility] Department [place] [address] * (ABNORMAL) Basic metabolic panel (10/21/2019 5:29 PM [employer] OBJECTS CONSULTANT) Pathologist [facility] Sodium 139 135 - 145 mmol/L [facility] Potassium, pl 4.3 3.3 - 4.9 mmol/L [facility] Chloride 113(H) 97 - 110 mmol/L [facility] CO2 21(L) 22 - 32 mmol/L [facility] Anion gap 5 2 - 15 mmol/L [facility] BUN 13 8 - 25 mg/dL [facility] Creatinine 0.77 0.60 - 1.10 mg/dL [facility] Glucose 215(H) 70 - 199 mg/dL [facility] Comment: Interpretive Data Fasting glucose >/= 126 [...] interpretive data was last revised 2017. Calcium 8.3(L) 8.5 - 10.3 mg/dL [facility] Blood specimen (specimen) 10/21/2019 5:29 PM [employer] OBJECTS CONSULTANT 10/21/2019 5:36 PM [employer] BUSINESS OBJECTS CONSULTANT Nanci Giron MD LAB BLOOD ORDERABLES Tiffany l Result [facility] [place] [address] * XR Chest 1 View (10/21/2019 5:27 PM [employer] OBJECTS CONSULTANT) Anatomical Region Laterality Modality Body, Chest N/A Computed Radiogr aphy 10/22/2019 8:07 AM [employer] OBJECTS CONSULTANT Impressions 10/22/2019 10:47 AM [employer] OBJECTS CONSULTANT First exam comparison is made with chest radiograph from 10/10/2019 There is endotracheal tube 4.8 cm above the [place]. ??2 thoracotomy tubes are present. ??Subcutaneous gas is present. ??The patient is status post a median sternotomy, mediastinal wires are aligned. There are haziness in the left lung base which is due to atelectasis with small left pleural effusion. ??No pneumothorax. ??No pulmonary edema. ??The cardiomediastinal silhouette is stable. Second exam ??there is no significant interval change Dictated by: Uday Brown M.D. The radiology attending physician has personally reviewed this study, and had reviewed and/or edited this written report and agrees with it. Electronically signed by: Werner Calvillo M.D. Narrative 10/22/2019 10:47 AM [employer] OBJECTS CONSULTANT Examination: 2 portable chests Chest one view portable Chest one view portable Procedure Note Werner Calvillo MD - 10/22/2019 Examination: 2 portable chests Chest one view portable Chest one view portable IMPRESSION: First exam comparison is made with chest radiograph from 10/10/2019 There is endotracheal tube 4.8 cm above the [place]. 2 thoracotomy tubes are present. Subcutaneous gas is present. The patient is status post a median sternotomy, mediastinal wires are aligned. There are haziness in the left lung base which is due to atelectasis with small left pleural effusion. No pneumothorax. No pulmonary edema. The cardiomediastinal silhouette is stable. Second exam there is no significant interval change Dictated by: Uday Brown M.D. The radiology attending physician has personally reviewed this study, and had reviewed and/or edited this written report and agrees with it. Electronically signed by: Werner Calvillo M.D. Nanci Giron MD IMG XR PROCEDURES Final R esult * (ABNORMAL) POCT glucose (10/21/2019 5:07 PM [employer] BUSINESS OBJECTS CONSULTANT) Pathologist [facility] Glucose, POC 218(H) 70 - 199 mg/dL [facility] Blood specimen (specimen) 10/21/2019 5:07 PM [employer] OBJECTS CONSULTANT 10/21/2019 5:07 PM [employer]JECTS CONSULTANT Nanci Giron MD LAB POCT ORDERABLES - DEV ICE Final Result [facility] Department [place] [address] * (ABNORMAL) POC Blood Gas and Chemistries, Arterial - (10/21/2019 3:51 PM [employer] OBJECTS CONSULTANT) Pathologist [facility] pH, Art 7.27(L) 7.35 - 7.45 [facility] pCO2, Art POC 43 35 - 45 mmHg [facility] pO2, Art POC 286(H) 83 - 108 mmHg [facility] Na, POC 136 135 - 145 mmol/L [facility] K POC 4.6 3.3 - 4.9 mmol/L [facility] Cl, POC 110 97 - 110 mmol/L [facility] Ionized Ca, POC 5.92(H) 4.50 - 5.10 mg/dL [facility] Glucose, POC 234(H) 70 - 199 mg/dL [facility] Lactate, POC 1.3 0.7 - 2.2 mmol/L [facility] SO2 (angel) arterial 99(H) 90 - 95 % [facility] Base excess, POC -7.0 mmol/L [facility] HCO3, Art POC 20 20 - 30 mmol/L [facility] Hct, POC 32.0(L) 36.3 - 45.3 % [facility] O2 Sat, Art POC (Calc) 100 % [facility] Total Hb, POC 10.8(L) 11.9 - 15.5 g/dL [facility] Blood specimen (specimen) 10/21/2019 3:51 PM [employer]S CONSULTANT 10/21/2019 3:51 PM [employer]JECTS CONSULTANT Nanci Giron MD LAB POCT ORDERABLES - DEV ICE Final Result Performing Organization Address [facility] de Phone Number [facility] [place] [address] * POCT Activated clotting time, low range (10/21/2019 3:43 PM [employer]S CONSULTANT) ACT 129 123 - 168 sec [facility] Blood specimen (specimen) 10/21/2019 3:43 PM [employer] OBJECTS CONSULTANT 10/21/2019 3:43 PM [employer] OB[employer]S CONSULTANT Nanci Giron MD LAB POCT ORDERABLES - DEV ICE Final Result Performing Organization Address [facility] de Phone Number [facility] [place] [address] * (ABNORMAL) POCT Activated clotting time, low range (10/21/2019 3:06 PM [employer] OB[employer]S CONSULTANT) ACT 230(H) 123 - 168 sec [facility] Blood specimen (specimen) 10/21/2019 3:06 PM [employer] OBJECTS CONSULTANT 10/21/2019 3:06 PM [employer] OBJECTS CONSULTANT Nanci Giron MD LAB POCT ORDERABLES - DEV ICE Final Result Performing Organization Address [facility] [place] [address] * (ABNORMAL) POCT Activated clotting time, low range (10/21/2019 2:37 PM [employer] CONSULTANT) ACT 266(H) 123 - 168 sec [facility] Blood specimen (specimen) 10/21/2019 2:37 PM [employer] OBJECTS CONSULTANT 10/21/2019 2:37 PM [employer] OBJECTS CONSULTANT Nanci Giron MD LAB POCT ORDERABLES - DEV ICE Final Result Performing Organization Address City/[facility]/ZIP Co de Phone Number [facility] [place] [address] * (ABNORMAL) POCT Activated clotting time, low range (10/21/2019 2:10 PM [employer] OBJECTS CONSULTANT) [facility] ACT 276(H) 123 - 168 sec [facility] Blood specimen (specimen) 10/21/2019 2:10 PM [employer] OBJECTS CONSULTANT 10/21/2019 2:10 PM [employer] OBJECTS CONSULTANT Nanci Giron MD LAB POCT ORDERABLES - DEV ICE Final Result Performing Organization Address [facility] Co de Phone Number [facility] [place] [address] * (ABNORMAL) POC Blood Gas and Chemistries, Arterial - (10/21/2019 2:06 PM [employer]S CONSULTANT) [facility] pH, Art 7.30(L) 7.35 - 7.45 [facility] pCO2, Art POC 43 35 - 45 mmHg [facility] pO2, Art POC 191(H) 83 - 108 mmHg [facility] Na, POC 138 135 - 145 mmol/L [facility] K POC 3.9 3.3 - 4.9 mmol/L [facility] Cl, POC 108 97 - 110 mmol/L [facility] Ionized Ca, POC 4.64 4.50 - 5.10 mg/dL [facility] Glucose, POC 162 70 - 199 mg/dL [facility] Lactate, POC 0.6(L) 0.7 - 2.2 mmol/L [facility] SO2 (angel) arterial 100(H) 90 - 95 % [facility] Base excess, POC -5.1 mmol/L [facility] HCO3, Art POC 21 20 - 30 mmol/L [facility] Hct, POC 33.0(L) 36.3 - 45.3 % [facility] O2 Sat, Art POC (Calc) 100 % [facility] Total Hb, POC 11.0(L) 11.9 - 15.5 g/dL [facility] Blood specimen (specimen) 10/21/2019 2:06 PM [employer]S CONSULTANT 10/21/2019 2:06 PM [employer] OBJECTS CONSULTANT Nanci Giron MD LAB POCT ORDERABLES - DEV ICE Final Result Performing Organization Address [facility] Co de Phone Number [facility] [place] [address] * (ABNORMAL) POCT Activated clotting time, low range (10/21/2019 1:34 PM [employer]S CONSULTANT) ACT 236(H) 123 - 168 sec [facility] Blood specimen (specimen) 10/21/2019 1:34 PM [employer] OBJECTS CONSULTANT 10/21/2019 1:34 PM [employer] OBJECTS CONSULTANT Nanci Giron MD LAB POCT ORDERABLES - DEV ICE Final Result Performing Organization Address [facility] de Phone Number [facility] [place] [address] * (ABNORMAL) POCT Activated clotting time, low range (10/21/2019 1:08 PM [employer] OB[employer]S CONSULTANT) ACT 207(H) 123 - 168 sec [facility] Blood specimen (specimen) 10/21/2019 1:08 PM [employer] OBJECTS CONSULTANT 10/21/2019 1:08 PM [employer] OBJECTS CONSULTANT Nanci Giron MD LAB POCT ORDERABLES - DEV ICE Final Result Performing Organization Address City/[facility] [place] [address] * (ABNORMAL) POCT Activated clotting time, low range (10/21/2019 12:19 PM [employer] OBJECTS CONSULTANT) ACT 250(H) 123 - 168 sec [facility] Blood specimen (specimen) 10/21/2019 12:19 PM [employer] OBJECTS CONSULTANT 10/21/2019 12:19 PM [employer] OBJECTS CONSULTANT us Nanci Giron MD LAB POCT ORDERABLES - DEV ICE Final Result [facility] Department [place] [address] * Differential, auto (10/20/2019 11:02 PM [employer] OBJECTS CONSULTANT) Neutrophil abs 2.6 1.7 - 6.5 K/cumm [facility] Imm gran abs 0.0 0.0 - 0.1 K/cumm [facility] Lymphocyte abs 2.6 0.8 - 3.3 K/cumm [facility] Monocyte abs 0.5 0.2 - 0.8 K/cumm [facility] Eosinophil abs 0.1 0.0 - 0.5 K/cumm [facility] Basophil abs 0.0 0.0 - 0.1 K/cumm [facility] Neutrophil pct 43.6 % [facility] Comment: Interpretive Data Percent cell count reference ranges are not reported, since discordance with absolute values may lead to misinterpretation of CBC data. Current Interpretive Data was last revised on 2017. Imm gran pct 0.3 % [facility] Comment: Interpretive Data Percent cell count reference ranges are not reported, since discordance with absolute values may lead to misinterpretation of CBC data. Current Interpretive Data was last revised on 2017. Lymphocyte pct 44.7 % [facility] Comment: Interpretive Data Percent cell count reference ranges are not reported, since discordance with absolute values may lead to misinterpretation of CBC data. Current Interpretive Data was last revised on 2017. Monocyte pct 8.7 % [facility] Comment: Interpretive Data Percent cell count reference ranges are not reported, since discordance with absolute values may lead to misinterpretation of CBC data. Current Interpretive Data was last revised on 2017. Eosinophil pct 2.0 % [facility] Comment: Interpretive Data Percent cell count reference ranges are not reported, since discordance with absolute values may lead to misinterpretation of CBC data. Current Interpretive Data was last revised on 2017. Basophil pct 0.7 % [facility] Comment: Interpretive Data Percent cell count reference ranges are not reported, since discordance with absolute values may lead to misinterpretation of CBC data. Current Interpretive Data was last revised on 2017. Blood specimen (specimen) 10/20/2019 11:02 PM [employer] OBJECTS CONSULTANT 10/21/2019 12:28 AM [employer] OBJECTS CONSULTANT us Annemarie Lynne NP LAB BLOOD ORDERABLES F inal Result Performing Organization Address City/[facility]/ZIP Co de Phone Number [facility] Department [place] [address] * CBC with auto differential (10/20/2019 11:02 PM [employer] OBJECTS CONSULTANT) WBC 5.9 3.8 - 9.9 K/cumm [facility] Hgb 12.4 11.9 - 15.5 g/dL [facility] Hct 38.0 35.6 - 45.5 % [facility] Plt 231 150 - 400 K/cumm [facility] MPV 9.6 9.1 - 12.3 fL [facility] RBC 4.08 3.90 - 5.20 M/cumm [facility] MCV 93.1 81.3 - 96.4 fL [facility] MCH 30.4 27.1 - 33.3 pg [facility] MCHC 32.6 32.3 - 35.7 g/dL [facility] RDW CV 13.8 11.1 - 14.9 % [facility] RDW SD 46.7 35.7 - 48.1 fL [facility] NRBC abs 0.00 0.00 - 0.01 K/cumm [facility] Blood specimen (specimen) 10/20/2019 11:02 PM [employer] OBJECTS CONSULTANT 10/21/2019 12:28 AM [employer] BUSINESS OBJECTS CONSULTANT Annemarie Lynne NP LAB BLOOD ORDERABLES F inal Result [facility] Department [place] [address] * (ABNORMAL) Basic metabolic panel (10/20/2019 11:02 PM [employer] OBJECTS CONSULTANT) Sodium 136 135 - 145 mmol/L [facility] Potassium, pl 4.2 3.3 - 4.9 mmol/L [facility] Chloride 103 97 - 110 mmol/L [facility] CO2 21(L) 22 - 32 mmol/L [facility] Anion gap 12 2 - 15 mmol/L [facility] BUN 15 8 - 25 mg/dL [facility] Creatinine 0.83 0.60 - 1.10 mg/dL [facility] Glucose 102 70 - 199 mg/dL [facility] Comment: Interpretive Data Fasting glucose >/= 126 [...] interpretive data was last revised 2017. Calcium 9.6 8.5 - 10.3 mg/dL [facility] Blood specimen (specimen) 10/20/2019 11:02 PM [employer] OBJECTS CONSULTANT 10/21/2019 12:22 AM [employer] BUSINESS OBJECTS CONSULTANT Annemarie Lynne NP LAB BLOOD ORDERABLES F inal Result Performing Organization Address City/[facility] Co de Phone Number [facility] Department [place] [address] * Type and screen (10/20/2019 12:17 PM [employer] BUSINESS OBJECTS CONSULTANT) Mara, indirect Negative [facility] ABO Rh O Positive [facility] Blood specimen (specimen) 10/20/2019 12:17 PM [employer] OBJECTS CONSULTANT 10/20/2019 12:53 PM [employer] BUSINESS OBJECTS CONSULTANT Narrative [facility] - 10/20/2019 2:21 PM [employer] BUSINESS OBJECTS CONSULTANT Has the patient had Daratumumab (Darzalex) in the past 6 months?->Unknown Annemarie Lynne NP LAB BLOOD BANK TEST OR DERABLES Final Result Performing Organization Address [facility] Co de Phone Number [facility] [place] [address] * Prepare RBC: 4 Units (10/20/2019 9:43 AM [employer] BUSINESS OBJECTS CONSULTANT) Pathologist [facility] Product code [id number] [facility] Unit Number [id number] 0-K [facility] Product Blood Type OPOS [facility] Dispense Status RETURNED [facility] Product code [id number] [facility] Unit Number [id number] 2-E [facility] Product Blood Type OPOS [facility] Dispense Status RETURNED [facility] Product code [id number] [facility] Unit Number [id number] 0-G [facility] Product Blood Type OPOS [facility] Dispense Status RETURNED [facility] Product code [id number] [facility] Unit Number [id number] 2-K [facility] Product Blood Type OPOS [facility] Dispense Status RETURNED [facility] Blood specimen (specimen) 10/20/2019 9:43 AM [employer] BUSINESS OBJECTS CONSULTANT 10/20/2019 9:43 AM [employer] BUSINESS OBJECTS CONSULTANT Narrative [facility] - 10/21/2019 6:35 PM [employer] BUSINESS OBJECTS CONSULTANT 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 (all products are leukoreduced)->No Date required:-[id number] LRRBC # of [id number] Reasons:-Hold for procedure (specify procedure)} Annemarie Lynne NP BLOOD BANK PRODUCT ORD ERABLES Final Result Performing Organization Address [facility]/ZIP Co de Phone Number [facility] [place] [address] * Differential, auto (10/20/2019 12:36 AM [employer] BUSINESS OBJECTS CONSULTANT) Neutrophil abs 3.2 1.7 - 6.5 K/cumm [facility] Imm gran abs 0.0 0.0 - 0.1 K/cumm [facility] Lymphocyte abs 2.6 0.8 - 3.3 K/cumm [facility] Monocyte abs 0.6 0.2 - 0.8 K/cumm [facility] Eosinophil abs 0.1 0.0 - 0.5 K/cumm [facility] Basophil abs 0.0 0.0 - 0.1 K/cumm [facility] Neutrophil pct 48.3 % [facility] Comment: Interpretive Data Percent cell count reference ranges are not reported, since discordance with absolute values may lead to misinterpretation of CBC data. Current Interpretive Data was last revised on 2017. Imm gran pct 0.3 % [facility] Comment: Interpretive Data Percent cell count reference ranges are not reported, since discordance with absolute values may lead to misinterpretation of CBC data. Current Interpretive Data was last revised on 2017. Lymphocyte pct 39.5 % [facility] Comment: Interpretive Data Percent cell count reference ranges are not reported, since discordance with absolute values may lead to misinterpretation of CBC data. Current Interpretive Data was last revised on 2017. Monocyte pct 9.9 % [facility] Comment: Interpretive Data Percent cell count reference ranges are not reported, since discordance with absolute values may lead to misinterpretation of CBC data. Current Interpretive Data was last revised on 2017. Eosinophil pct 1.4 % [facility] Comment: Interpretive Data Percent cell count reference ranges are not reported, since discordance with absolute values may lead to misinterpretation of CBC data. Current Interpretive Data was last revised on 2017. Basophil pct 0.6 % [facility] Comment: Interpretive Data Percent cell count reference ranges are not reported, since discordance with absolute values may lead to misinterpretation of CBC data. Current Interpretive Data was last revised on 2017. Blood specimen (specimen) 10/20/2019 12:36 AM [employer] OBJECTS CONSULTANT 10/20/2019 1:34 AM [employer] BUSINESS OBJECTS CONSULTANT Annemarie Lynne REINSPECTOR LAB BLOOD ORDERABLES F inal Result Performing Organization Address [facility] Co de Phone Number [facility] Department [place] [address] * (ABNORMAL) CBC with auto differential (10/20/2019 12:36 AM [employer] BUSINESS OBJECTS CONSULTANT) [facility] WBC 6.6 3.8 - 9.9 K/cumm [facility] Hgb 12.0 11.9 - 15.5 g/dL [facility] Hct 35.7 35.6 - 45.5 % [facility] Plt 213 150 - 400 K/cumm [facility] MPV 9.6 9.1 - 12.3 fL [facility] RBC 3.86(L) 3.90 - 5.20 M/cumm [facility] MCV 92.5 81.3 - 96.4 fL [facility] MCH 31.1 27.1 - 33.3 pg [facility] MCHC 33.6 32.3 - 35.7 g/dL [facility] RDW CV 14.0 11.1 - 14.9 % [facility] RDW SD 47.6 35.7 - 48.1 fL [facility] NRBC abs 0.00 0.00 - 0.01 K/cumm [facility] Blood specimen (specimen) 10/20/2019 12:36 AM [employer] OBJECTS CONSULTANT 10/20/2019 1:34 AM [employer] OBJECTS CONSULTANT Annemarie Lynne REINSPECTOR LAB BLOOD ORDERABLES F inal Result Performing Organization Address City/[facility]/ZIP Co de Phone Number [facility] Department [place] [address] * Basic metabolic panel (10/20/2019 12:36 AM [employer] BUSINESS OBJECTS CONSULTANT) Pathologist [facility] Sodium 138 135 - 145 mmol/L [facility] Potassium, pl 4.0 3.3 - 4.9 mmol/L [facility] Chloride 105 97 - 110 mmol/L [facility] CO2 24 22 - 32 mmol/L [facility] Anion gap 9 2 - 15 mmol/L [facility] BUN 19 8 - 25 mg/dL [facility] Creatinine 0.85 0.60 - 1.10 mg/dL [facility] Glucose 111 70 - 199 mg/dL [facility] Comment: Interpretive Data Fasting glucose >/= 126 [...] interpretive data was last revised 2017. Calcium 9.0 8.5 - 10.3 mg/dL [facility] Blood specimen (specimen) 10/20/2019 12:36 AM [employer] OBJECTS CONSULTANT 10/20/2019 1:33 AM [employer] OBJECTS CONSULTANT us Annemarie Lynne NP LAB BLOOD ORDERABLES F inal Result [facility] [place] [address] * US Groin Pseudo Duplex Right (10/19/2019 10:30 AM [employer]S CONSULTANT) Anatomical Region Laterality Modality Vascular Right Ultrasound 10/19/2019 10:4 8 AM [employer] OBJECTS CONSULTANT Impressions 10/19/2019 11:30 AM [employer] OBJECTS CONSULTANT 1. No pseudoaneurysm or arteriovenous fistula of the right groin. 2. No groin hematoma. Electronically signed by: Sol Israel M.D. Narrative 10/19/2019 11:30 AM [employer] OBJECTS CONSULTANT EXAMINATION: LIMITED RIGHT GROIN SONOGRAM AND DOPPLER HISTORY: ??Right groin hematoma post catheterization COMPARISON: ??None FINDINGS: SONOGRAM: Evaluation of bilateral groins demonstrate no evidence of hematoma on either side. ??Minimal soft tissue edema is noted on the right secondary to recent procedure at that level. DOPPLER: Color Doppler and spectral analysis were used to evaluate the groin vessels. The distal external iliac and proximal femoral artery and vein show normal waveforms. No extravascular blood flow is identified. Specifically, there is no blood flow in the fluid collection described above. There is no tissue vibration. There is no Doppler or jensen-scale evidence of a pseudoaneurysm or arteriovenous fistula. Procedure Note Sol Israel MD - 10/19/2019 EXAMINATION: LIMITED RIGHT GROIN SONOGRAM AND DOPPLER HISTORY: Right groin hematoma post catheterization COMPARISON: None FINDINGS: SONOGRAM: Evaluation of bilateral groins demonstrate no evidence of hematoma on either side. Minimal soft tissue edema is noted on the right secondary to recent procedure at that level. DOPPLER: Color Doppler and spectral analysis were used to evaluate the groin vessels. The distal external iliac and proximal femoral artery and vein show normal waveforms. No extravascular blood flow is identified. Specifically, there is no blood flow in the fluid collection described above. There is no tissue vibration. There is no Doppler or jensen-scale evidence of a pseudoaneurysm or arteriovenous fistula. IMPRESSION: 1. No pseudoaneurysm or arteriovenous fistula of the right groin. 2. No groin hematoma. Electronically signed by: Sol Israel M.D. Annemarie Lynne NP IM US PROCEDURES Tiffany l Result * Differential, auto (10/19/2019 12:13 AM [employer] OBJECTS CONSULTANT) Neutrophil abs 4.3 1.7 - 6.5 K/cumm [facility] Imm gran abs 0.0 0.0 - 0.1 K/cumm [facility] Lymphocyte abs 2.4 0.8 - 3.3 K/cumm [facility] Monocyte abs 0.6 0.2 - 0.8 K/cumm [facility] Eosinophil abs 0.1 0.0 - 0.5 K/cumm [facility] Basophil abs 0.0 0.0 - 0.1 K/cumm [facility] Neutrophil pct 58.0 % [facility] Comment: Interpretive Data Percent cell count reference ranges are not reported, since discordance with absolute values may lead to misinterpretation of CBC data. Current Interpretive Data was last revised on 2017. Imm gran pct 0.3 % [facility] Comment: Interpretive Data Percent cell count reference ranges are not reported, since discordance with absolute values may lead to misinterpretation of CBC data. Current Interpretive Data was last revised on 2017. Lymphocyte pct 32.5 % [facility] Comment: Interpretive Data Percent cell count reference ranges are not reported, since discordance with absolute values may lead to misinterpretation of CBC data. Current Interpretive Data was last revised on 2017. Monocyte pct 7.6 % [facility] Comment: Interpretive Data Percent cell count reference ranges are not reported, since discordance with absolute values may lead to misinterpretation of CBC data. Current Interpretive Data was last revised on 2017. Eosinophil pct 1.1 % [facility] Comment: Interpretive Data Percent cell count reference ranges are not reported, since discordance with absolute values may lead to misinterpretation of CBC data. Current Interpretive Data was last revised on 2017. Basophil pct 0.5 % [facility] Comment: Interpretive Data Percent cell count reference ranges are not reported, since discordance with absolute values may lead to misinterpretation of CBC data. Current Interpretive Data was last revised on 2017. Blood specimen (specimen) 10/19/2019 12:13 AM [employer] OBJECTS CONSULTANT 10/19/2019 12:43 AM [employer] BUSINESS OBJECTS CONSULTANT Annemarie Lynne NP LAB BLOOD ORDERABLES F inal Result [facility] [place] [address] * (ABNORMAL) CBC with auto differential (10/19/2019 12:13 AM [employer] OBJECTS CONSULTANT) WBC 7.4 3.8 - 9.9 K/cumm [facility] Hgb 12.1 11.9 - 15.5 g/dL [facility] Hct 35.8 35.6 - 45.5 % [facility] Plt 226 150 - 400 K/cumm [facility] MPV 9.5 9.1 - 12.3 fL [facility] RBC 3.85(L) 3.90 - 5.20 M/cumm [facility] MCV 93.0 81.3 - 96.4 fL [facility] MCH 31.4 27.1 - 33.3 pg [facility] MCHC 33.8 32.3 - 35.7 g/dL [facility] RDW CV 13.8 11.1 - 14.9 % [facility] RDW SD 47.0 35.7 - 48.1 fL [facility] NRBC abs 0.00 0.00 - 0.01 K/cumm [facility] Blood specimen (specimen) 10/19/2019 12:13 AM [employer] BUSINESS OBJECTS CONSULTANT 10/19/2019 12:43 AM [employer] BUSINESS OBJECTS CONSULTANT Annemarie Lynne NP LAB BLOOD ORDERABLES F inal Result [facility] Department [place] [address] * Basic metabolic panel (10/19/2019 12:13 AM [employer] OBJECTS CONSULTANT) Sodium 138 135 - 145 mmol/L [facility] Potassium, pl 4.0 3.3 - 4.9 mmol/L [facility] Chloride 105 97 - 110 mmol/L [facility] CO2 24 22 - 32 mmol/L [facility] Anion gap 9 2 - 15 mmol/L [facility] BUN 18 8 - 25 mg/dL [facility] Creatinine 0.89 0.60 - 1.10 mg/dL [facility] Glucose 129 70 - 199 mg/dL [facility] Comment: Interpretive Data Fasting glucose >/= 126 [...] interpretive data was last revised 2017. Calcium 8.6 8.5 - 10.3 mg/dL [facility] Blood specimen (specimen) 10/19/2019 12:13 AM [employer] OBJECT[employer] CONSULTANT 10/19/2019 12:43 AM [employer] BUSINESS OBJECTS CONSULTANT us Annemarie Lynne NP LAB BLOOD ORDERABLES F inal Result [facility] Department [place] [address] * MRI Brain and MRA Head W WO Contrast (10/18/2019 7:03 PM [employer] BUSINESS OBJECTS CONSULTANT) Anatomical Region Laterality Modality Head and Neck N/A Magnetic Resonan ce 10/19/2019 9:39 AM [employer] OBJECTS CONSULTANT Impressions 10/19/2019 9:58 AM [employer] OBJECTS CONSULTANT 1. 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 ??Decreased flow related enhancement at the origin of the right vertebral artery which may be secondary to innominate stenosis or atherosclerotic disease at its origin. 2. ??50% stenosis of the right proximal ICA. ??Moderate stenosis of the cavernous right ICA. 3. 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 ??Multifocal atherosclerosis of the left V4 segment. 4. ??No acute intracranial abnormality. Dictated by: Harman Small M.D. The radiology attending physician has personally reviewed this study, and had reviewed and/or edited this written report and agrees with it. Electronically signed by: Dara Dawson M.D. Narrative 10/19/2019 9:58 AM [employer] OBJECTS CONSULTANT EXAMINATION: Magnetic resonance imaging (MRI) of the brain and brainstem without and with contrast Magnetic resonance angiography (MRA) of the suyyey-fp-Fcveau without and with contrast Magnetic resonance angiography (MRA) of the neck without and with contrast HISTORY: Right innominate artery stenosis. TECHNIQUE: Multiplanar multi-weighted MRI of the brain and brainstem was performed without and with intravenous contrast using the general brain protocol. Magnetic resonance angiography of the oicazr-wc-Mycczn was performed using separate data set acquisitions including a non-contrast enno-pn-khdwka technique and a post-contrast technique to produce axial thin-slice source images. Magnetic resonance angiography of the neck was performed using a non-contrast eada-iq-diptkn technique and a post-contrast technique to produce thin-slice source images. These images were then used to generate maximum intensity projection (MIP) images. Contrast information: 16 mL Dotarem COMPARISON: CTA 10/11/2019. FINDINGS: The scalp and calvarium are normal. The superior sagittal sinus demonstrates normal venous flow. The corpus callosum is normal in shape and signal intensity. The posterior fossa is unremarkable. ??The pituitary and sella are normal. The brainstem [...] within the intracranial right vertebral artery on yeku-oe-lwsdsa images with subsequent enhancement compatible with slow flow. ??There is decreased flow related enhancement at the origin of the right vertebral artery which may be secondary to dominant stenosis or atherosclerotic disease of the right vertebral artery origin. ??Right vertebral artery is otherwise normal in course and caliber The right common carotid artery is otherwise normal in caliber. ??The left subclavian artery is normal in caliber. ??There is atherosclerotic disease of the right carotid bifurcation with approximately 50% stenosis at the right ICA. There is stenosis at the left common carotid artery origin. ??Left common carotid artery is otherwise normal in caliber. ??There is atherosclerosis of the left carotid bifurcation without hemodynamic significant stenosis. ??The left internal carotid artery is normal in course and caliber. ??There is multifocal stenosis and occlusion of the V2 segment of the left vertebral artery with reconstitution of the V3 segment via occipital and deep cervical artery collateral and mild multifocal irregularity of the left V4 segment. There is moderate stenosis of the cavernous segment of the right internal carotid artery. ??The supraclinoid right ICA is normal in caliber. ??The left intracranial ICA is tortuous and normal in caliber. ??The anterior and middle cerebral arteries appear normal. There are small bilateral posterior communicating arteries. ??The basilar artery is small in caliber. ??The posterior cerebral arteries appear normal. There is no soft tissue abnormality in the neck on limited imaging of the neck included in this MR angiogram. ??The included portions of the brain on this MR angiogram are unremarkable. Procedure Note Dara Dawson MD - 10/19/2019 EXAMINATION: Magnetic resonance imaging (MRI) of the brain and brainstem without and with contrast Magnetic resonance angiography (MRA) of the ihjskx-cf-Szvmib without and with contrast Magnetic resonance angiography (MRA) of the neck without and with contrast HISTORY: Right innominate artery stenosis. TECHNIQUE: Multiplanar multi-weighted MRI of the brain and brainstem was performed without and with intravenous contrast using the general brain protocol. Magnetic resonance angiography of the xqlkdx-zs-Ofsqri was performed using separate data set acquisitions including a non-contrast tayf-ri-ajbedw technique and a post-contrast technique to produce axial thin-slice source images. Magnetic resonance angiography of the neck was performed using a non-contrast grbt-sj-ykojkg technique and a post-contrast technique to produce [...] within the intracranial right vertebral artery on dwpl-qs-yuuebn images with subsequent enhancement compatible with slow [...] brain on this MR angiogram are unremarkable. IMPRESSION: 1. Severe stenosis of the innominate artery [...] it. Electronically signed by: Dara Dawson M.D. Nanci Giron MD [facility] MRI PROCEDURES Final Result * MRA Neck W WO Contrast (10/18/2019 7:03 PM [employer] BUSINESS OBJECTS CONSULTANT) Anatomical Region Laterality Modality Head and Neck N/A Magnetic Resonan ce 10/19/2019 9:39 AM [employer] BUSINESS OBJECTS CONSULTANT Impressions 10/19/2019 9:58 AM [employer] OBJECTS CONSULTANT 1. 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 ??Decreased flow related enhancement at the origin of the right vertebral artery which may be secondary to innominate stenosis or atherosclerotic disease at its origin. 2. ??50% stenosis of the right proximal ICA. ??Moderate stenosis of the cavernous right ICA. 3. 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 ??Multifocal atherosclerosis of the left V4 segment. 4. ??No acute intracranial abnormality. Dictated by: Harman Small M.D. The radiology attending physician has personally reviewed this study, and had reviewed and/or edited this written report and agrees with it. Electronically signed by: Dara Dawson M.D. Narrative 10/19/2019 9:58 AM [employer]JECTS CONSULTANT EXAMINATION: Magnetic resonance imaging (MRI) of the brain and brainstem without and with contrast Magnetic resonance angiography (MRA) of the ywdonw-pj-Aiuasj without and with contrast Magnetic resonance angiography (MRA) of the neck without and with contrast HISTORY: Right innominate artery stenosis. TECHNIQUE: Multiplanar multi-weighted MRI of the brain and brainstem was performed without and with intravenous contrast using the general brain protocol. Magnetic resonance angiography of the yymfxp-bi-Rfduyl was performed using separate data set acquisitions including a non-contrast vorx-lv-cmncla technique and a post-contrast technique to produce axial thin-slice source images. Magnetic resonance angiography of the neck was performed using a non-contrast eadj-fu-kjckzw technique and a post-contrast technique to produce thin-slice source images. These images were then used to generate maximum intensity projection (MIP) images. Contrast information: 16 mL Dotarem COMPARISON: CTA 10/11/2019. FINDINGS: The scalp and calvarium are normal. The superior sagittal sinus demonstrates normal venous flow. The corpus callosum is normal in shape and signal intensity. The posterior fossa is unremarkable. ??The pituitary and sella are normal. The brainstem [...] within the intracranial right vertebral artery on ozrv-gy-lautpj images with subsequent enhancement compatible with slow flow. ??There is decreased flow related enhancement at the origin of the right vertebral artery which may be secondary to dominant stenosis or atherosclerotic disease of the right vertebral artery origin. ??Right vertebral artery is otherwise normal in course and caliber The right common carotid artery is otherwise normal in caliber. ??The left subclavian artery is normal in caliber. ??There is atherosclerotic disease of the right carotid bifurcation with approximately 50% stenosis at the right ICA. There is stenosis at the left common carotid artery origin. ??Left common carotid artery is otherwise normal in caliber. ??There is atherosclerosis of the left carotid bifurcation without hemodynamic significant stenosis. ??The left internal carotid artery is normal in course and caliber. ??There is multifocal stenosis and occlusion of the V2 segment of the left vertebral artery with reconstitution of the V3 segment via occipital and deep cervical artery collateral and mild multifocal irregularity of the left V4 segment. There is moderate stenosis of the cavernous segment of the right internal carotid artery. ??The supraclinoid right ICA is normal in caliber. ??The left intracranial ICA is tortuous and normal in caliber. ??The anterior and middle cerebral arteries appear normal. There are small bilateral posterior communicating arteries. ??The basilar artery is small in caliber. ??The posterior cerebral arteries appear normal. There is no soft tissue abnormality in the neck on limited imaging of the neck included in this MR angiogram. ??The included portions of the brain on this MR angiogram are unremarkable. Procedure Note Dara Dawson MD - 10/19/2019 EXAMINATION: Magnetic resonance imaging (MRI) of the brain and brainstem without and with contrast Magnetic resonance angiography (MRA) of the gvyvih-op-Zidvuc without and with contrast Magnetic resonance angiography (MRA) of the neck without and with contrast HISTORY: Right innominate artery stenosis. TECHNIQUE: Multiplanar multi-weighted MRI of the brain and brainstem was performed without and with intravenous contrast using the general brain protocol. Magnetic resonance angiography of the rryfuu-zq-Bmowee was performed using separate data set acquisitions including a non-contrast xptm-ag-lsllhq technique and a post-contrast technique to produce axial thin-slice source images. Magnetic resonance angiography of the neck was performed using a non-contrast tovt-he-ogyzmw technique and a post-contrast technique to produce [...] within the intracranial right vertebral artery on bcdx-ql-jslwgf images with subsequent enhancement compatible with slow [...] brain on this MR angiogram are unremarkable. IMPRESSION: 1. Severe stenosis of the innominate artery [...] it. Electronically signed by: Dara Dawson M.D. Nanci Giron MD [facility] MRI PROCEDURES Final Result * LEFT HEART CATHETERIZATION WITH CORONARY ANGIOGRAPHY AND WITH AND WITHOUT LEFT VENTRICULOGRAM (10/18/2019 11:21 AM [employer] BUSINESS OBJECTS CONSULTANT) Anatomical Region Laterality Modality X-Ray Angiograph y 10/18/2019 Narrative 10/18/2019 3:40 PM [employer]JECTS CONSULTANT [employer] Job ID: [id number] [employer] Document ID: [id number] Dictated date/time: [id number] CARDIAC CATHETERIZATION Patient of Azar Ramírez and Nanci Giron, Vascular Surgery. Suma Saenz is a pleasant 73-year-old woman with a past medical history of vertebrobasilar insufficiency, orthostatic hypotension, innominate artery occlusion, and stenosis of the left carotid/vertebral arteries. ?? She presented following repeat syncopal episodes. She was admitted for preoperative left heart catheterization as part of the surgical planning for an innominate artery bypass procedure. Left heart catheterization was requested to document her coronary status. For further clinical details, please refer to the pre cath workup in [facility], which I have reviewed and cosigned today. PROCEDURE Ms. Saenz was brought to [facility] laboratory engineer holding area. ??She was prepared by the nursing staff in the usual manner. ??Informed consent was obtained and documented in the usual manner. ??I saw her in the holding area, discussed the procedure, answered all of her questions, and she agreed to proceed. ??She was taken to room 3, was placed comfortably on the x-ray table, prepped and draped in the usual manner for a groin approach. ??The lower ??of the right femoral head was identified fluoroscopically and marked. ??The right groin was anesthetized with 2% lidocaine in standard fashion. Easy percutaneous puncture RFA with anterior wall micropuncture technique and easy insertion of a 5 sheath. The groin was hemostatic without bleeding or hematoma. Selective coronary arteriograms Johanny 5-[place] JL4.5 left coronary catheter, 4-[place] WRP right coronary catheter. ??A 4-[place] straight pigtail was then passed to the LV for LV pressure measurement. A 6-Citizen [place] Angio-Seal was then deployed with immediate excellent hemostasis. ??This turned out to be an early generation Angio-Seal but it worked well, with good hemostasis. The procedure was concluded. ??I provided direct nahd-es-ufuk monitoring of conscious sedation which was administered by an independent trained nurse. Fifty-four minutes of conscious sedation was administered, and was safely and comfortably tolerated. I performed or was present through the entirety of this procedure, and personally dictated this report. ??Left heart catheterization LV pressure 198/28; on pullback the aorta was 198/112 with no aortic valve gradient. hemoglobin 12.4, BSA 2.0, heart rate 58. VITAL SIGNS Pre heart rate 66, sat 97%, BP 166/74, mean 121. ??Post heart rate 73, sat 97%, BP 173/78, mean 111. ANGIOGRAPHY LEFT CORONARY SYSTEM: ??Large left dominant left coronary system. There is no significant obstructive disease within the left main ostium, trunk, or bifurcation. The LAD - diagonal - septal system shows minimal luminal irregularity without significant obstruction. The circumflex marginal is a large system giving rise to a left posterior descending, which meets the wrap-around LAD at the apex. There is no significant disease within the circumflex marginal system. RIGHT CORONARY SYSTEM: ??Small nondominant right coronary artery supplying small right ventricular branches and a small inferior branch. There is no significant obstructive disease within the right coronary system. DIAGNOSTIC IMPRESSIONS 1. Severe systemic arterial hypertension. 2. Severe elevation of LVEDP (198/28). 3. No significant obstructive coronary disease. ASSESSMENT AND PLAN In view of these findings, she may proceed with her cerebrovascular surgical procedure. ??There is no indication for coronary revascularization. JOB ID/VF JOB ID: ??[id number] Nanci Giron MD CV CARDIAC CATH PROCEDURE S Final Result * (ABNORMAL) CBC without differential (10/18/2019 10:37 AM [employer] BUSINESS OBJECTS CONSULTANT) [facility] Signature WBC 4.7 3.8 - 9.9 K/cumm [facility] Hgb 12.0 11.9 - 15.5 g/dL [facility] Hct 36.1 35.6 - 45.5 % [facility] Plt 222 150 - 400 K/cumm [facility] MPV 9.6 9.1 - 12.3 fL [facility] RBC 3.83(L) 3.90 - 5.20 M/cumm [facility] MCV 94.3 81.3 - 96.4 fL [facility] MCH 31.3 27.1 - 33.3 pg [facility] MCHC 33.2 32.3 - 35.7 g/dL [facility] RDW CV 13.7 11.1 - 14.9 % [facility] RDW SD 46.8 35.7 - 48.1 fL [facility] NRBC abs 0.00 0.00 - 0.01 K/cumm [facility] Blood specimen (specimen) 10/18/2019 10:37 AM [employer] BUSINESS OBJECTS CONSULTANT 10/18/2019 11:12 AM [employer] BUSINESS OBJECTS CONSULTANT Jd Sinha MD LAB BLOOD ORDERABLES Final Result Performing Organization Address City/[facility]/[place] [address] * Type and screen (10/18/2019 1:02 AM [employer] BUSINESS OBJECTS CONSULTANT) Mara, indirect Negative [facility] ABO Rh O Positive [facility] Blood specimen (specimen) 10/18/2019 1:02 AM [employer] OBJECTS CONSULTANT 10/18/2019 1:34 AM [employer] BUSINESS OBJECTS CONSULTANT Narrative [facility] - 10/18/2019 2:19 AM [employer] BUSINESS OBJECTS CONSULTANT Has the patient had Daratumumab (Darzalex) in the past 6 months?->Unknown Nanci Giron MD LAB BLOOD BANK TEST ORDER EDD Final Result Performing Organization Address [facility] [place] [address] * aPTT (10/18/2019 1:02 AM [employer] BUSINESS OBJECTS CONSULTANT) aPTT 33 25 - 37 sec [facility] Comment: Interpretive data Heparin therapeutic range: 60-90 seconds Range based on correlation with therapeutic heparin activity range of 0.3-0.7 units/ml. Current interpretive data was last revised on 2019. Blood specimen (specimen) 10/18/2019 1:02 AM [employer] BUSINESS OBJECTS CONSULTANT 10/18/2019 1:24 AM [employer] BUSINESS OBJECTS CONSULTANT Nanci Giron MD LAB BLOOD ORDERABLES Tiffany l Result Performing Organization Address [facility] [place] [address] * Phosphorus (10/18/2019 1:02 AM [employer] BUSINESS OBJECTS CONSULTANT) Phosphorus, pl 3.3 2.3 - 4.5 mg/dL [facility] Blood specimen (specimen) 10/18/2019 1:02 AM [employer] BUSINESS OBJECTS CONSULTANT 10/18/2019 1:27 AM [employer] BUSINESS OBJECTS CONSULTANT Nanci Giron MD LAB BLOOD ORDERABLES Tiffany l Result Performing Organization Address [facility] Co de Phone Number [facility] [place] [address] * Magnesium (10/18/2019 1:02 AM [employer] BUSINESS OBJECTS CONSULTANT) Magnesium 2.3 1.4 - 2.5 mg/dL [facility] Blood specimen (specimen) 10/18/2019 1:02 AM [employer] BUSINESS OBJECTS CONSULTANT 10/18/2019 1:27 AM [employer] BUSINESS OBJECTS CONSULTANT Result [facility] Nanci Giron MD LAB BLOOD ORDERABLES Tiffany l Result Performing Organization Address [facility] [place] [address] * Protime-INR (10/18/2019 1:02 AM [employer] BUSINESS OBJECTS CONSULTANT) PT 11.2 8.6 - 13.0 sec [facility] INR 1.0 0.8 - 1.2 [facility] Comment: Interpretive data Oral anticoagulant therapeutic ranges: Venous thromboembolism prophylaxis or treatment: 2.0-3.0 CARDIOLOGY Standard range: 2.0-3.0 High-intensity range: 2.5-3.5 Refer to indication-specific guidelines for appropriate target ranges for prosthetic heart valve replacement. Current interpretive data was last revised on 2019. Blood specimen (specimen) 10/18/2019 1:02 AM [employer] BUSINESS OBJECTS CONSULTANT 10/18/2019 1:24 AM [employer] BUSINESS OBJECTS CONSULTANT Nanci Giron MD LAB BLOOD ORDERABLES Tiffany l Result Performing Organization Address [facility] Co de Phone Number [facility] [place] [address] * Basic metabolic panel (10/18/2019 1:02 AM [employer] BUSINESS OBJECTS CONSULTANT) Pathologist [facility] Sodium 139 135 - 145 mmol/L [facility] Potassium, pl 3.5 3.3 - 4.9 mmol/L [facility] Chloride 104 97 - 110 mmol/L [facility] CO2 27 22 - 32 mmol/L [facility] Anion gap 8 2 - 15 mmol/L [facility] BUN 20 8 - 25 mg/dL [facility] Creatinine 0.91 0.60 - 1.10 mg/dL [facility] Glucose 88 70 - 199 mg/dL [facility] Comment: Interpretive Data Fasting glucose >/= 126 [...] interpretive data was last revised 2017. Calcium 8.9 8.5 - 10.3 mg/dL [facility] Blood specimen (specimen) 10/18/2019 1:02 AM [employer] BUSINESS OBJECTS CONSULTANT 10/18/2019 1:27 AM [employer] BUSINESS OBJECTS CONSULTANT us Nanci Giron MD LAB BLOOD ORDERABLES Tiffany pacheco Result [facility] Department [place] [address] * CBC without differential (10/18/2019 1:02 AM [employer] BUSINESS OBJECTS CONSULTANT) [facility] WBC 6.6 3.8 - 9.9 K/cumm [facility] Hgb 12.4 11.9 - 15.5 g/dL [facility] Hct 36.6 35.6 - 45.5 % [facility] Plt 230 150 - 400 K/cumm [facility] MPV 9.3 9.1 - 12.3 fL [facility] RBC 3.98 3.90 - 5.20 M/cumm [facility] MCV 92.0 81.3 - 96.4 fL [facility] MCH 31.2 27.1 - 33.3 pg [facility] MCHC 33.9 32.3 - 35.7 g/dL [facility] RDW CV 13.5 11.1 - 14.9 % [facility] RDW SD 45.5 35.7 - 48.1 fL [facility] NRBC abs 0.00 0.00 - 0.01 K/cumm [facility] Blood specimen (specimen) 10/18/2019 1:02 AM [employer] BUSINESS OBJECTS CONSULTANT 10/18/2019 1:27 AM [employer] BUSINESS OBJECTS CONSULTANT us Nanci Giron MD LAB BLOOD ORDERABLES Tiffany l Result Performing Organization Address City/[facility]/ZIP Co de Phone Number [facility] Department [place] [address] * ECG 12 lead (10/18/2019 12:33 AM [employer] BUSINESS OBJECTS CONSULTANT) Pathologist [facility] Ventricular Rate EKG/Min 61 BPM [facility] Atrial Rate 61 BPM [facility] SC-Interval (MSEC) 178 ms [facility] QRS-Interval (MSEC) 108 ms [facility] QT-Interval (MSEC) 456 ms [facility] QTc 459 ms [facility] P Huggins 51 degrees [facility] R Huggins 12 degrees [facility] T Huggins 16 degrees [facility] Diagnosis Normal sinus rhythm Minimal voltage criteria for LVH, may be normal variant Nonspecific ST abnormality Abnormal ECG When compared with ECG of 03-APR-2016 00:04, No significant change was found Confirmed by PAT CORRIGAN M.D ([id number]) on 10/18/2019 12:40:42 PM [facility] 10/18/2019 12:3 3 AM [employer] BUSINESS OBJECTS CONSULTANT 10/18/2019 12:40 PM [employer] BUSINESS OBJECTS CONSULTANT us Nanci Giron MD ECG ORDERABLES Final Res ult Performing Organization Address City/[facility]/ZIP Co de Phone Number [facility] documented in this encounter Visit Diagnoses Diagnosis Vertebral artery compression syndrome- Primary Cervical spondylosis with myelopathy 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 Pre-operative cardiovascular examination Vertebrobasilar artery insufficiency Syncope and collapse Acute postoperative pain Other acute postoperative pain 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 Acute respiratory failure with hypoxia (CMS/HCC) (HCC) Orthostatic hypotension Labile hypertension Cervicalgia 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 Chronic back pain complicated by acute surgical pain Other chronic pain Labile hypertension Acute blood loss anemia Acute posthemorrhagic anemia Status post carotid surgery Other postprocedural status Acute hypoxemic respiratory failure (HCC) Vertebral artery compression syndrome Cervical spondylosis with myelopathy 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 documented in this encounter Admitting Diagnoses Diagnosis Vertebral artery compression syndrome Cervical spondylosis with myelopathy 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 documented in this encounter Administered Medications Inactive Administered Medications - up to 3 most recent administrations Medication Order MAR Action Action Date Dose Rate Site acetaminophen (TYLENOL) tablet 1,000 mg 1,000 mg, oral, Every 6 hours scheduled, First dose on Thu10/21/19 at 1815, If able to swallow medications., Indications: PainIndications:Pain Given 10/25/2019 4:26 AM [employer] BUSINESS OBJECTS CONSULTANT 1,000 mg Given 10/24/2019 5:51 PM [employer]JECTS CONSULTANT 1,000 mg Given 10/24/2019 12:26 PM [employer]JECTS CONSULTANT 1,000 mg acetaminophen (TYLENOL) tablet 1,000 mg 1,000 mg, oral, Every 6 hours scheduled, First dose on Thu10/25/19 at 1200, For 2 days Given 10/27/2019 5:40 AM [employer] BUSINESS OBJECTS CONSULTANT 1,000 mg Given 10/26/2019 11:22 PM [employer] OBJECTS CONSULTANT 1,000 mg Given 10/26/2019 6:06 PM [employer] OBJECTS CONSULTANT 1,000 mg acetaminophen (TYLENOL) tablet 650 mg 650 mg, oral, Every 4 hours PRN, 1st line for pain, fever, fever greater than 38.3 C, Starting on Thu10/18/19 at 1325, Recovery (CV), Indications: Fever, PainIndications:Fever,Pain Given 10/20/2019 3:31 PM [employer]JECTS CONSULTANT 650 mg Given 10/19/2019 7:36 PM [employer] OBJECTS CONSULTANT 650 mg Given 10/19/2019 12:16 AM [employer] BUSINESS OBJECTS CONSULTANT 650 mg al & mag hydroxide weoiasjkvdi-ijasrwnpz-gqkugstlkj (GI COCKTAIL WITH ANTISPASMODIC) suspension 45 mL 45 mL, oral, Once, On Thu10/24/19 at 2115, For 1 dose, shake well Given 10/24/2019 9:47 PM [employer]JECTS CONSULTANT 45 mL aspirin tablet 325 mg 325 mg, oral, Daily, First dose on Thu10/18/19 at 0900 Given 10/21/2019 8:21 AM [employer]JECTS CONSULTANT 325 mg Given 10/20/2019 9:43 AM [employer]S CONSULTANT 325 mg Given 10/19/2019 9:27 AM [employer]JECTS CONSULTANT 325 mg aspirin tablet 325 mg 325 mg, oral, Daily, First dose on Thu10/22/19 at 0900 Given 10/27/2019 9:00 AM [employer]JECTS CONSULTANT 325 mg Given 10/26/2019 9:11 AM [employer]S CONSULTANT 325 mg Given 10/25/2019 8:01 AM [employer] CONSULTANT 325 mg atenoloL (TENORMIN) tablet 50 mg 50 mg, oral, Daily, First dose on Thu10/18/19 at 0900 Given 10/18/2019 8:28 AM [employer] CONSULTANT 50 mg atorvastatin (LIPITOR) tablet 80 mg 80 mg, oral, Nightly, First dose on Thu10/18/19 at 0130 Given 10/20/2019 9:40 PM [employer]S CONSULTANT 80 mg Given 10/19/2019 9:47 PM [employer] CONSULTANT 80 mg Given 10/18/2019 10:15 PM [employer] CONSULTANT 80 mg atorvastatin (LIPITOR) tablet 80 mg 80 mg, oral, Nightly, First dose on Thu10/22/19 at 2100 Given 10/26/2019 8:46 PM [employer]S CONSULTANT 80 mg Given 10/25/2019 8:47 PM [employer]JECTS CONSULTANT 80 mg Given 10/24/2019 8:52 PM [employer] CONSULTANT 80 mg bisacodyL (DULCOLAX) suppository 10 mg 10 mg, rectal, Once, On Thu10/24/19 at 2000, For 1 dose, Indications: constipationIndications:constipation Given 10/24/2019 9:09 PM [employer]JECTS CONSULTANT 10 mg buPROPion XL (WELLBUTRIN XL) 24 hour tablet 150 mg 150 mg, oral, Daily, First dose on Thu10/18/19 at 0900, Do not crush, chew, cut, dissolve, open or otherwise manipulate tablet/capsule. Given 10/21/2019 8:21 AM [employer]JECTS CONSULTANT 150 mg Given 10/20/2019 9:43 AM [employer]JECTS CONSULTANT 150 mg Given 10/19/2019 9:27 AM [employer]JECTS CONSULTANT 150 mg buPROPion XL (WELLBUTRIN XL) 24 hour tablet 150 mg 150 mg, oral, Daily, First dose on 10/22/19 at 0900, Do not crush, chew, cut, dissolve, open or otherwise manipulate tablet/capsule. Given 10/27/2019 9:00 AM [employer] OBJECTS CONSULTANT 150 mg Given 10/26/2019 9:11 AM [employer]JECTS CONSULTANT 150 mg Given 10/25/2019 8:01 AM [employer]S CONSULTANT 150 mg calcium carbonate (TUMS) chewable tablet 1,000 mg 1,000 mg (400 mg of elemental calcium), oral, Every 6 hours PRN, indigestion, Starting on Thu10/24/19 at 1840 Given 10/25/2019 11:37 PM [employer]JECTS CONSULTANT 1,000 mg Given 10/25/2019 5:50 AM [employer]S CONSULTANT 1,000 mg Given 10/24/2019 6:56 PM [employer]JECTS CONSULTANT 1,000 mg camphor-menthol (SARNA) 0.5-0.5 % lotion topical, Every 6 hours PRN, irritation, itching, dry skin, Starting on 10/22/19 at 1538, Apply to affected area: other Given 10/22/2019 8:17 PM [employer]JECTS CONSULTANT carvediloL (COREG) tablet 12.5 mg 12.5 mg, oral, 2 times daily, First dose on Thu10/19/19 at 0900 Given 10/21/2019 8:21 AM [employer]S CONSULTANT 12.5 mg Given 10/20/2019 9:40 PM [employer]JECTS CONSULTANT 12.5 mg Given 10/20/2019 9:43 AM [employer]JECTS CONSULTANT 12.5 mg carvediloL (COREG) tablet 12.5 mg 12.5 mg, oral, 2 times daily, First dose (after last modification) on Thu10/24/19 at 2100 Given 10/27/2019 9:03 AM [employer]JECTS CONSULTANT 12.5 mg Given 10/26/2019 8:46 PM [employer]JECTS CONSULTANT 12.5 mg Given 10/26/2019 9:11 AM [employer]JECTS CONSULTANT 12.5 mg carvediloL (COREG) tablet 25 mg 25 mg, oral, 2 times daily, First dose (after last modification) on Thu10/23/19 at 2100 Given 10/23/2019 9:20 PM [employer]S CONSULTANT 25 mg carvediloL (COREG) tablet 6.25 mg 6.25 mg, oral, 2 times daily, First dose on Thu10/22/19 at 1100 Given 10/23/2019 9:46 AM [employer]S CONSULTANT 6.25 mg carvediloL (COREG) tablet 6.25 mg 6.25 mg, oral, Once, On 10/23/19 at 1245, For 1 dose Given 10/23/2019 12:45 PM [employer]S CONSULTANT 6.25 mg carvediloL (COREG) tablet 6.25 mg 6.25 mg, oral, Once, On Thu10/23/19 at 1730, For 1 dose Given 10/23/2019 5:50 PM [employer]S CONSULTANT 6.25 mg ceFAZolin (ANCEF) 2,000 mg/20 mL in sterile water (premix) 2,000 mg 2,000 mg, intravenous, at 400 mL/hr, Administer over 3 Minutes, Every 8 hours scheduled, First dose on Thu10/21/19 at 2330, For 1 dose, Indications: Prophylaxis, SurgicalIndications:Prophylaxis, Surgical New Bag 10/21/2019 11:31 PM [employer] CONSULTANT 2,000 mg 400 mL/hr cetirizine (ZyrTEC) tablet 10 mg 10 mg, oral, Nightly, First dose on Thu10/18/19 at 2100 Given 10/20/2019 9:40 PM [employer] CONSULTANT 10 mg Given 10/19/2019 9:47 PM [employer] CONSULTANT 10 mg Given 10/18/2019 10:15 PM [employer] CONSULTANT 10 mg dexMEDEtomidine in 0.9% sodium chloride (PRECEDEX) 400 mcg/100 mL (4 mcg/mL) infusion (premix) 0.2-1.5 mcg/kg/hr ? 88.5 kg (4.425-33.1875 mL/hr, rounded to 4.43-33.19 mL/hr), 4 mcg/mL, intravenous, Titrated, Starting on Thu10/21/19 at 1815, Until Thu10/21/19 at 2018, Indications: Sedation in Intubated Patients, Initial dose: 0.2 mcg/kg/hr, Titrate: Up/Down, Titrate by: 0.1 mcg/kg/hr, Every: 30 minutes, Goal: RASS, RASS Goal: 0, -1, -2, CONTINUE current rate if sedation at goal. INCREASE infusion per titration instructions if undersedated. DECREASE infusion per titration instructions if oversedated., RoutineIndications:Sedati on in Intubated Patients Rate/Dose Verify 10/21/2019 7:00 PM [employer] CONSULTANT 0.6 mcg/kg/hr 13.28 mL/hr Rate/Dose Verify 10/21/2019 6:00 PM [employer] CONSULTANT 0.6 mcg/kg/hr 13.2 8 mL/hr docusate sodium (COLACE) capsule 100 mg 100 mg, oral, 2 times daily, First dose on Thu10/24/19 at 2115, Indications: constipationIndications:constipation Given 10/24/2019 8:52 PM [employer] CONSULTANT 100 mg doxycycline monohydrate (ADOXA) tablet 50 mg 50 mg, oral, 2 times daily, First dose on Thu10/18/19 at 0100, Give 2 hrs before or 2 hrs after MVI, antacids, or other products containing sucralfate, magnesium, aluminum, iron, or zinc. May be taken without regard to meals., Indications: Dry EyeIndications:Dry Eye Given 10/21/2019 8:21 AM [employer] CONSULTANT 50 mg Given 10/20/2019 9:40 PM [employer] CONSULTANT 50 mg Given 10/20/2019 9:44 AM [employer] CONSULTANT 50 mg dronabinol (MARINOL) capsule 2.5 mg 2.5 mg, oral, 2 times daily before meals (lunch, dinner), First dose on 10/23/19 at 1730 Given 10/27/2019 9:00 AM [employer] CONSULTANT 2.5 mg Given 10/26/2019 6:06 PM [employer] CONSULTANT 2.5 mg Given 10/26/2019 12:00 PM [employer] CONSULTANT 2.5 mg furosemide (LASIX) 10 mg/mL injection 40 mg 40 mg, intravenous, Administer over 1 Minutes, Once, On 10/22/19 at 1100, For 1 dose, Room temperature only Given 10/22/2019 1:18 PM [employer] CONSULTANT 40 mg furosemide (LASIX) 10 mg/mL injection 40 mg 40 mg, intravenous, Administer over 1 Minutes, Once, On 10/24/19 at 1515, For 1 dose, Room temperature only Given 10/24/2019 2:52 PM [employer] CONSULTANT 40 mg furosemide (LASIX) 10 mg/mL injection 80 mg 80 mg, intravenous, Administer over 1 Minutes, Once, On 10/23/19 at 1015, For 1 dose, Room temperature only Given 10/23/2019 9:46 AM [employer] CONSULTANT 80 mg furosemide (LASIX) 10 mg/mL injection 80 mg 80 mg, intravenous, Administer over 1 Minutes, Once, On Thu10/23/19 at 1830, For 1 dose, Room temperature only Given 10/23/2019 5:54 PM [employer] CONSULTANT 80 mg gadoterate meglumine (DOTAREM) 0.5 mmol/mL injection 15 mL 15 mL, intravenous, Once in imaging, contrast, Starting on Thu10/18/19 at 1903, For 1 dose Given 10/18/2019 7:04 PM [employer] CONSULTANT 16 mL heparin 5,000 unit/mL injection 5,000 Units 5,000 Units, subcutaneous, Every 8 hours scheduled, First dose on Thu10/17/19 at 2315, For 9 doses, Indications: Deep Vein Thrombosis PreventionIndications:Deep Vein Thrombosis Prevention Given 10/20/2019 5:44 PM [employer] CONSULTANT 5,000 Units Left Upper Abdomen Given 10/20/2019 9:43 AM [employer] CONSULTANT 5,000 Units R ight Lower Abdomen Given 10/20/2019 12:29 AM [employer] CONSULTANT 5,000 Units Left Lower Abdomen heparin 5,000 unit/mL injection 5,000 Units 5,000 Units, subcutaneous, Every 8 hours scheduled, First dose on 10/22/19 at 0745, Indications: Deep Vein Thrombosis PreventionIndications:Deep Vein Thrombosis Prevention Given 10/24/2019 8:54 PM [employer] CONSULTANT 5,000 Units Left Lower Abdomen Given 10/24/2019 2:51 PM [employer] CONSULTANT 5,000 Units R ight Lower Abdomen Given 10/24/2019 6:06 AM [employer] CONSULTANT 5,000 Units L eft Lower Abdomen heparin 5,000 unit/mL injection 5,000 Units 5,000 Units, subcutaneous, Every 8 hours scheduled, First dose on Thu10/24/19 at 2230, Indications: Deep Vein Thrombosis PreventionIndications:Deep Vein Thrombosis Prevention Given 10/27/2019 5:40 AM [employer] CONSULTANT 5,000 Units Right Lower Abdomen Given 10/26/2019 8:46 PM [employer] CONSULTANT 5,000 Units L eft Lower Abdomen Given 10/26/2019 3:17 PM [employer] CONSULTANT 5,000 Units R ight Lower Abdomen hydrALAZINE (APRESOLINE) injection 10 mg 10 mg, intravenous, Administer over 2 Minutes, Once, On Thu10/18/19 at 1230, For 1 dose, Indications: hypertensionIndications:hypertension Given 10/18/2019 11:48 AM [employer] CONSULTANT 10 mg hydrALAZINE (APRESOLINE) injection 10 mg 10 mg, intravenous, Administer over 2 Minutes, Once, On Thu10/21/19 at 2245, For 1 dose, SBP sustained >150, Indications: hypertensionIndications:hypertension Given 10/21/2019 10:12 PM [employer] CONSULTANT 10 mg hydroCHLOROthiazide (HYDRODIURIL) tablet 12.5 mg 12.5 mg, oral, Daily, First dose on Thu10/26/19 at 1015 Given 10/27/2019 9:03 AM [employer]SULTANT 12.5 mg Given 10/26/2019 12:00 PM [employer] CONSULTANT 12.5 mg hydroCHLOROthiazide (HYDRODIURIL) tablet 25 mg 25 mg, oral, Daily, First dose on Thu10/18/19 at 0900, On hold since Thu10/20/2019 at 0944 until manually unheld Given 10/20/2019 9:43 AM [employer]SULTANT 25 mg Given 10/19/2019 9:27 AM [employer] CONSULTANT 25 mg Given 10/18/2019 8:29 AM [employer] CONSULTANT 25 mg hydroCHLOROthiazide (HYDRODIURIL) tablet 25 mg 25 mg, oral, Once, On 10/22/19 at 1815, For 1 dose Given 10/22/2019 8:16 PM [employer]SULTANT 25 mg HYDROmorphone (DILAUDID) injection 0.2 mg 0.2 mg, intravenous, Administer over 2 Minutes, Every 3 hours PRN, 1st line for pain, Starting on Thu10/21/19 at 1738, May repeat in 30 minutes if pain is uncontrolled or increasing. Max 2 doses within 1 dosing interval., Indications: PainIndications:Pain Given 10/21/2019 7:35 PM [employer]SULTANT 0.2 mg HYDROmorphone (DILAUDID) injection 0.2 mg 0.2 mg, intravenous, Administer over 2 Minutes, Every 3 hours PRN, 2nd line for pain, Starting on Thu10/21/19 at 1952, May repeat in 30 minutes if pain is uncontrolled or increasing. Max 2 doses within 1 dosing interval., Indications: PainIndications:Pain Given 10/21/2019 10:0 2 PM [employer]SULTANT 0.2 mg Given 10/21/2019 7:30 PM [employer] CONSULTANT 0.2 mg HYDROmorphone in 0.9% sodium chloride (DILAUDID) 20 mg/100 mL (0.2 mg/mL) infusion (premix) Continuous dose: None, BUSINESS UNIT DIRECTOR dose: 0.2 mg, BUSINESS UNIT DIRECTOR lockout: 10 Minutes, 1 hour limit: Other / 1.2 mg, intravenous, Continuous, Starting on 10/22/19 at 0730, Until 10/23/19 at 0828, 100 mL, Indications: Pain, RoutineIndications:Pain New Syringe/Cartridge 10/22/2019 7:50 AM [employer]SULTANT 20 mg insulin lispro (HumaLOG) injection 1-3 Units 1-3 Units, subcutaneous, Every 4 hours scheduled, First dose on Thu10/21/19 at 2000, Blood Sugar Low Dose - Surgical/Post-Op ICU 175 or less No Insulin 176 - 200 1 unit 201 - 250 2 units 251 - 299 3 units Greater than 299 Call MD for hyperglycemia management instructions Do NOT hold for NPO status., Indications: Diabetes MellitusIndications:Diabe karen Mellitus Given 10/23/2019 3:33 PM [employer]SULTANT 1 Units Right Lower Abdomen Given 10/22/2019 11:59 AM [employer] CONSULTANT 1 Units L eft Upper Arm Given 10/22/2019 8:22 AM [employer] CONSULTANT 1 Units Le ft Upper Arm Lactated Ringer's (LR) infusion - ADS Override Pull Starting on 10/22/19 at 0745, For 1 dose, ISRAEL ALFREDO: cabinet override Lactated Ringer's (LR) infusion 50 mL/hr, intravenous, Continuous, Starting on 10/17/19 at 2315 New Bag 10/18/2019 2:28 PM [employer] CONSULTANT 50 mL/hr 50 mL/hr Rate/Dose Change 10/18/2019 2:50 AM [employer] CONSULTANT 50 mL/hr 50 mL/h r New Bag 10/18/2019 1:09 AM [employer] CONSULTANT 50 mL/hr 50 mL/hr Lactated Ringer's (LR) infusion 30 mL/hr, intravenous, Continuous, Starting on Thu10/21/19 at 1015, Pre-Op Rate/Dose Verify 10/21/2019 10:46 AM [employer] CONSULTANT New Bag 10/21/2019 9:57 AM [employer] CONSULTANT 30 mL/hr 30 mL/hr Lactated Ringer's (LR) infusion 50 mL/hr, intravenous, Continuous, Starting on Thu10/21/19 at 1800 Rate/Dose Verify 10/21/2019 6:00 PM [employer] CONSULTANT 50 mL/hr 50 mL/hr Lactated Ringer's (LR) infusion 50 mL/hr, intravenous, Continuous, Starting on Thu10/21/19 at 1815 Rate/Dose Verify 10/22/2019 3:00 AM [employer] CONSULTANT 50 mL/hr 50 mL/hr Rate/Dose Verify 10/22/2019 2:00 AM [employer]S CONSULTANT 50 mL/hr 50 mL/h r Rate/Dose Verify 10/22/2019 1:00 AM [employer] CONSULTANT 50 mL/hr 50 mL/h r Lactated Ringer's (LR) infusion 30 mL/hr, intravenous, Continuous, Starting on 10/22/19 at 0400 Rate/Dose Verify 10/24/2019 10:00 AM [employer] CONSULTANT 10 mL/hr 10 mL/hr Rate/Dose Verify 10/24/2019 9:00 AM [employer]S CONSULTANT 10 mL/hr 10 mL/h r Rate/Dose Verify 10/24/2019 8:00 AM [employer]S CONSULTANT 10 mL/hr 10 mL/h r lidocaine (LIDODERM) 5 % patch 1 patch 1 patch, transdermal, Administer over 12 Hours, Daily, First dose on Thu10/25/19 at 1000, Do not cover the holes on the top side of the patch., Apply to affected area: chest Medication Applied 10/27/2019 9:01 AM [employer] CONSULTANT 1 patch Chest Medication Applied 10/26/2019 9:11 AM [employer] CONSULTANT 1 patch Chest Medication Applied 10/25/2019 10:17 AM [employer] CONSULTANT 1 patch Chest lidocaine (LIDODERM) 5 % patch 2 patch 2 patch, transdermal, Administer over 12 Hours, Daily, First dose (after last modification) on Thu10/22/19 at 0900, Do not cover the holes on the top side of the patch., Apply to affected area: neck Medication Applied 10/21/2019 9:24 PM [employer] CONSULTANT 2 patches Right Shoulder lidocaine in dextrose 5% 2 g/250 mL (8 mg/mL) infusion (premix) 0.75 mg/kg/hr ? 61.6 kg [place] weight (5.775 mL/hr, rounded to 5.78 mL/hr), 8 mg/mL, intravenous, Continuous, Starting on 10/22/19 at 0115, Until 10/23/19 at 1254, Indications: Pain, Call MD for symptoms of toxicity (ringing in ears, metallic taste, somnolence, numb lips) or lidocaine level greater than 5., RoutineIndications: Pain Rate/Dose Verify 10/23/2019 12:00 PM [employer] CONSULTANT 0.75 mg/kg/hr 5.78 mL/hr Rate/Dose Verify 10/23/2019 11:00 AM [employer] CONSULTANT 0.75 mg/kg/hr 5.7 8 mL/hr Rate/Dose Verify 10/23/2019 10:00 AM [employer] CONSULTANT 0.75 mg/kg/hr 5.7 8 mL/hr magnesium sulfate 2 g/50 mL in water (premix) 2 g 2 g, intravenous, Administer over 60 Minutes, Once, On 10/22/19 at 0245, For 1 dose New Bag 10/22/2019 2:44 AM [employer] CONSULTANT 2 g montelukast (SINGULAIR) tablet 10 mg 10 mg, oral, Nightly, First dose on Thu10/18/19 at 2100 Given 10/20/2019 9:40 PM [employer] CONSULTANT 10 mg Given 10/19/2019 9:47 PM [employer] CONSULTANT 10 mg Given 10/18/2019 10:15 PM [employer] CONSULTANT 10 mg montelukast (SINGULAIR) tablet 10 mg 10 mg, oral, Nightly, First dose on Thu10/22/19 at 2100 Given 10/26/2019 8:46 PM [employer] CONSULTANT 10 mg Given 10/25/2019 8:47 PM [employer] CONSULTANT 10 mg Given 10/24/2019 8:53 PM [employer] CONSULTANT 10 mg niCARdipine in 0.9% sodium chloride (CARDENE) 25 mg/50 mL (0.5 mg/mL) infusion (premix) - ADS Override Pull Starting on Thu10/21/19 at 2241, For 1 dose, Created by cabinet override Central line only niCARdipine in 0.9% sodium chloride (CARDENE) 25 mg/50 mL (0.5 mg/mL) infusion (premix) 0.5-2.5 mcg/kg/min ? 88.5 kg (5.31-26.55 mL/hr), 500 mcg/mL, intravenous, Titrated, Starting on Thu10/21/19 at 2315, Until Thu10/24/19 at 0912, Initial rate: 0.5 mcg/kg/min, Titrate: Up/Down, Titrate by: 0.5 mcg/kg/min, Every: 10 minutes, Goal: SBP, SBP Goal: Other (comment) / 120-130, Central line only, Routine Rate/Dose Verify 10/23/2019 11:00 PM [employer]S CONSULTANT 1 mcg/kg/min 10.62 mL/hr Rate/Dose Change 10/23/2019 10:44 PM [employer] CONSULTANT 1 mcg/kg/min 10.6 2 mL/hr Rate/Dose Verify 10/23/2019 10:20 PM [employer]S CONSULTANT 1.5 mcg/kg/min 15 .93 mL/hr norepinephrine in dextrose 5% (LEVOPHED) 8,000 mcg/250 mL (32 mcg/mL) infusion (premix) 0.01-2 mcg/kg/min ? 88.5 kg (1.6594-331.875 mL/hr, rounded to 1.66-331.88 mL/hr), 32 mcg/mL, intravenous, Titrated, Starting on Thu10/21/19 at 1815, Until Thu10/23/19 at 1947, Initial rate: 0.05 mcg/kg/min, Titrate: Up/Down, Titrate by: 0.01 mcg/kg/min, Every: 2 minutes, Goal: MAP, MAP Goal: 65-75 mmHg, Routine Rate/Dose Change 10/22/2019 12:00 PM [employer]S CONSULTANT 0.06 mcg/kg/min 9.96 mL/hr Rate/Dose Change 10/22/2019 11:40 AM [employer]JECTS CONSULTANT 0.08 mcg/kg/min 1 3.28 mL/hr Restarted 10/22/2019 11:00 AM [employer]S CONSULTANT 0.1 mcg/kg/min 16.59 mL /hr ondansetron (ZOFRAN) injection 4 mg 4 mg, intravenous, Administer over 2 Minutes, Every 4 hours PRN, nausea, vomiting, Starting on Thu10/22/19 at 0030 Given 10/26/2019 9:11 AM [employer]S CONSULTANT 4 mg Given 10/25/2019 11:37 PM [employer]S CONSULTANT 4 mg Given 10/25/2019 7:13 PM [employer] CONSULTANT 4 mg ondansetron ODT (ZOFRAN-ODT) disintegrating tablet 4 mg 4 mg, oral, Every 4 hours PRN, nausea, vomiting, Starting on Thu10/21/19 at 2016 Given 10/22/2019 12:07 AM [employer]S CONSULTANT 4 mg oxyCODONE (ROXICODONE) tablet 10 mg 10 mg, oral, Every 4 hours PRN, 1st line for pain, Starting on Thu10/21/19 at 2122, Indications: PainIndications:Pain Given 10/22/2019 12:46 AM [employer]JECTS CONSULTANT 10 mg Given 10/21/2019 9:25 PM [employer]JECTS CONSULTANT 5 mg oxyCODONE (ROXICODONE) tablet 10 mg 10 mg, oral, Every 3 hours PRN, 1st line for pain, Starting on 10/22/19 at 0100, Indications: PainIndications:Pain Given 10/22/2019 8:22 AM [employer] OBJECTS CONSULTANT 10 mg Given 10/22/2019 4:28 AM [employer]JECTS CONSULTANT 10 mg oxyCODONE (ROXICODONE) tablet 10 mg 10 mg, oral, Every 3 hours PRN, 2nd line for pain, Starting on Thu10/23/19 at 1110, Indications: PainIndications:Pain Given 10/25/2019 8:01 AM [employer] OBJECTS CONSULTANT 5 mg Given 10/24/2019 8:52 PM [employer] OBJECTS CONSULTANT 10 mg Given 10/24/2019 6:56 AM [employer] OBJECTS CONSULTANT 10 mg oxyCODONE (ROXICODONE) tablet 5 mg 5 mg, oral, Every 4 hours PRN, 1st line for pain, Starting on Thu10/21/19 at 1952, Indications: PainIndications:Pain Given 10/21/2019 8:40 PM [employer] OBJECTS CONSULTANT 5 mg oxyCODONE (ROXICODONE) tablet 5 mg 5 mg, oral, Every 3 hours PRN, 2nd line for pain, Starting on Thu10/23/19 at 0828, Indications: PainIndications:Pain Given 10/23/2019 9:46 AM [employer] OBJECTS CONSULTANT 5 mg oxyCODONE (ROXICODONE) tablet 5 mg 5 mg, oral, Every 3 hours PRN, 2nd line for pain, Starting on Thu10/25/19 at 0915, Indications: PainIndications:Pain Given 10/27/2019 12:37 PM [employer] BUSINESS OBJECTS CONSULTANT 5 mg Given 10/27/2019 5:40 AM [employer] BUSINESS OBJECTS CONSULTANT 5 mg Given 10/27/2019 2:20 AM [employer] BUSINESS OBJECTS CONSULTANT 5 mg polyethylene glycol (MIRALAX) packet 17 g 17 g, oral, Daily, First dose on Thu10/19/19 at 1645, Indications: constipationIndications:constipation Given 10/20/2019 9:43 AM [employer] BUSINESS OBJECTS CONSULTANT 17 g Given 10/19/2019 5:43 PM [employer] BUSINESS OBJECTS CONSULTANT 17 g polyethylene glycol (MIRALAX) packet 17 g 17 g, oral, Daily, First dose on Thu10/23/19 at 0900, Indications: constipationIndications:constipation Given 10/23/2019 8:55 AM [employer] BUSINESS OBJECTS CONSULTANT 17 g polyethylene glycol (MIRALAX) packet 17 g 17 g, oral, 2 times daily, First dose (after last modification) on Thu10/23/19 at 2100, Indications: constipationIndications:constipation Given 10/24/2019 8:53 PM [employer] BUSINESS OBJECTS CONSULTANT 17 g Given 10/24/2019 10:02 AM [employer] BUSINESS OBJECTS CONSULTANT 17 g Given 10/23/2019 9:20 PM [employer] BUSINESS OBJECTS CONSULTANT 17 g potassium chloride 20 mEq/260 mL in sodium chloride 0.9% (premix) 20 mEq 20 mEq, intravenous, Administer over 2 Hours, Once, On Thu10/18/19 at 0330, For 1 dose, Indications: hypokalemiaIndications:hypokalemia New 10/18/2019 4:25 AM [employer] BUSINESS OBJECTS CONSULTANT 20 mEq potassium chloride 20 mEq/50 mL in sterile water (premix) 20 mEq 20 mEq, intravenous, at 25 mL/hr, Administer over 2 Hours, Every 1 hour PRN, K less than 3.5, Starting on Thu10/21/19 at 1738, Central line only, Indications: hypokalemiaIndications:hypokalemia New Bag 10/25/2019 7:02 AM [employer] BUSINESS OBJECTS CONSULTANT 20 mEq 25 mL/hr potassium chloride 40 mEq/100 mL in sterile water (premix) - ADS Override Pull Starting on Thu10/24/19 at 0249, For 1 dose, JODY KENNEDY: cabinet override Central line only potassium chloride 40 mEq/100 mL in sterile water (premix) 40 mEq 40 mEq, intravenous, at 25 mL/hr, Administer over 4 Hours, Once, On Thu10/24/19 at 0330, For 1 dose, Central line only, Indications: hypokalemiaIndications:hypokalemia New Bag 10/24/2019 2:50 AM [employer] BUSINESS OBJECTS CONSULTANT 40 mEq 25 mL/hr senna (SENOKOT) tablet 1 tablet 1 tablet, oral, 2 times daily, First dose on Thu10/22/19 at 2215 Given 10/23/2019 8:55 AM [employer] BUSINESS OBJECTS CONSULTANT 1 tablet Given 10/22/2019 9:43 PM [employer] 1 tablet senna (SENOKOT) tablet 1 tablet 1 tablet, oral, Daily PRN, constipation, Starting on Thu10/26/19 at 0800 senna (SENOKOT) tablet 2 tablet 2 tablet, oral, 2 times daily, First dose (after last modification) on Thu10/23/19 at 2100 Given 10/24/2019 8:52 PM [employer] CONSULTANT 2 tablets Given 10/24/2019 10:01 AM [employer] CONSULTANT 2 tablets Given 10/23/2019 9:21 PM [employer] CONSULTANT 2 tablets senna-docusate (PERICOLACE) 8.6-50 mg per tablet 2 tablet 2 tablet, oral, 2 times daily PRN, constipation, Starting on Thu10/18/19 at 0045 Given 10/19/2019 12:25 PM [employer] CONSULTANT 2 tablets Given 10/18/2019 8:29 AM [employer] CONSULTANT 2 tablets sodium chloride 0.9% bolus 250 mL 250 mL, intravenous, Once, On Thu10/18/19 at 1000, For 1 dose New Bag 10/18/2019 9:38 AM [employer] CONSULTANT 250 mL 999 mL/hr sodium chloride 0.9% flush 0.5-20 mL 0.5-20 mL, intra-catheter, Every 8 hours scheduled, First dose on Thu10/17/19 at 2315, Flush volume based on line type and size. Given 10/20/2019 3:31 PM [employer] CONSULTANT 10 mL Given 10/19/2019 5:13 AM [employer] CONSULTANT 10 mL Given 10/19/2019 12:16 AM [employer] CONSULTANT 10 mL sodium chloride 0.9% flush 0.5-20 mL 0.5-20 mL, intra-catheter, Every 8 hours scheduled, First dose on Thu10/21/19 at 2200, Flush volume based on line type and size. Given 10/27/2019 5:40 AM [employer] CONSULTANT 10 mL Given 10/26/2019 8:47 PM [employer] CONSULTANT 10 mL Given 10/25/2019 4:22 AM [employer] CONSULTANT 10 mL sodium chloride 0.9% flush 0.5-20 mL 0.5-20 mL, intra-catheter, As needed, line care, Starting on Thu10/21/19 at 1738, Flush volume based on line type and size. Flush before and after each use. Given 10/21/2019 9:26 PM [employer] CONSULTANT 10 mL sodium chloride 0.9% infusion 125 mL/hr, intravenous, Administer over 5 Hours, Continuous, Starting on Thu10/18/19 at 1400, For 3 hours, Recovery (CV) New Bag 10/18/2019 2:28 PM [employer] CONSULTANT 125 mL/hr 125 mL/hr sodium chloride 0.9% infusion 100 mL/hr, intravenous, Continuous, Starting on Thu10/21/19 at 0000 New Bag 10/20/2019 11:17 PM [employer] CONSULTANT 100 mL/hr 100 mL/hr sodium chloride 0.9% infusion 6 mL/hr, intravenous, Continuous, Starting on Thu10/22/19 at 0400, For A line Rate/Dose Verify 10/24/2019 7:00 PM [employer] CONSULTANT 3 mL/hr 3 mL/hr Rate/Dose Verify 10/24/2019 6:00 PM [employer] CONSULTANT 3 mL/hr 3 mL/hr Rate/Dose Verify 10/24/2019 5:00 PM [employer] CONSULTANT 3 mL/hr 3 mL/hr sodium chloride 0.9% IVPB 0-250 mL 0-250 mL, intravenous, Once, On Thu10/21/19 at 1915, For 1 dose, Prime blood tubing and administer amount needed to clear line (usually 50-100 mL) after transfusion complete. New Bag 10/21/2019 8:10 PM [employer] CONSULTANT 50 mL sodium chloride 0.9% solution 1,000 mL 1,000 mL, intra-catheter, Continuous, Starting on Thu10/21/19 at 1815, With 300 mmHg to maintain patency. Rate/Dose Verify 10/22/2019 3:00 AM [employer]S CONSULTANT 6 mL/h r Rate/Dose Verify 10/22/2019 2:00 AM [employer] CONSULTANT 6 mL/hr Rate/Dose Verify 10/22/2019 1:00 AM [employer] CONSULTANT 6 mL/hr documented in this encounter Discontinued Medications Medication Sig Discontinue Reason Start Date End Da te biotin-keratin (BIOTIN PLUS KERATIN) 10,000-100 mcg-mg tablet Therapy completed 11/03/2016 10/18/2019 diphenhydrAMINE-acetam inophen (TYLENOL PM EXTRA STRENGTH) 25-500 mg tablet take 2 tablet by oral route every day at bedtime Therapy completed 02/26/2015 10/18/2019 doxycycline hyclate (VIBRAMYCIN) 50 mg capsule Therapy completed 10/05/2019 10/18/2019 ondansetron (ZOFRAN) 4 mg tablet Take 1 tablet (4 mg total) by mouth every 8 (eight) hours as needed for nausea or vomiting Therapy completed 10/14/2019 10/18/2019 salmon oil-omega-3 fatty acids (SALMON OIL-1000) 1,000-200 mg capsule Therapy completed 11/03/2016 10/18/2019 senna-docusate (SENNA PLUS) 8.6-50 mg take 2 tablet by oral route every day Reorder 11/03/2016 10/27/2019 clopidogrel (PLAVIX) 75 mg tablet take 1 tablet by oral route every day Stop Taking at Discharge 02/26/2015 10/27/2019 atenoloL (TENORMIN) 50 mg tablet Take 1 tablet (50 mg total) by mouth daily Stop Taking at Discharge 10/12/2019 10/27/2019 documented as of this encounter Active and Recently Administered Medications Times are shown in [employer]. Scheduled Medication Order 10/25/2019 10/26/2019 10/27/2019 acetaminophen (TYLENOL) tablet 1,000 mg (CANCELED)(Linked Group 1) 1,000 mg, oral, Every 6 hours scheduled, First dose on Thu10/21/19 at 1815, If able to swallow medications., Indications: Pain 0426 (Given - Provider: Aparna Gan RN) acetaminophen (TYLENOL) tablet 1,000 mg (COMPLETED) 1,000 mg, oral, Every 6 hours scheduled, First dose on Thu10/25/19 at 1200, For 2 days 1136 (Given - Provider: Lalita Lorenzana RN)1717 (Given - Provider: Meenu Vincent RN)2321 (Given - Provider: Erica Griffin, SENG) 0509 (Given - Provider: Erica Griffin, SENG)1200 (Given - Provider: Johnny Peterson RN)1806 (Given - Provider: Johnny Peterson RN)2322 (Given - Provider: Mimi Mchugh, SENG) 0540 (Given - Provider: Mimi Mchugh, RN) aspirin tablet 325 mg 325 mg, oral, Daily, First dose on 10/22/19 at 0900 0801 (Given - Provider: Lalita Lorenzana RN) 0911 (Given - Provider: Annemarie Nova RN) 0900 (Given - Provider: Johnny Peterson, SENG) atorvastatin (LIPITOR) tablet 80 mg 80 mg, oral, Nightly, First dose on 10/22/19 at 2100 2047 (Given - Provider: Erica Griffin, SENG) 2045 (Given - Provider: Mimi Mchugh, RN) buPROPion XL (WELLBUTRIN XL) 24 hour tablet 150 mg 150 mg, oral, Daily, First dose on 10/22/19 at 0900, Do not crush, chew, cut, dissolve, open or otherwise manipulate tablet/capsule. 0801 (Given - Provider: Lalita Lorenzana RN) 0911 (Given - Provider: Annemarie Nova, SENG) 0900 (Given - Provider: Jhonny Peterson RN) carvediloL (COREG) tablet 12.5 mg 12.5 mg, oral, 2 times daily, First dose (after last modification) on Thu10/24/19 at 2100 0801 (Given - Provider: Lalita Lorenzana, SENG)2046 (Given - Provider: Erica Griffin, SENG) 0911 (Given - Provider: Annemarie Nova, SENG)2045 (Given - Provider: Mimi Mchugh, SENG) 0903 (Given - Provider: Johnny Peterson RN) dronabinol (MARINOL) capsule 2.5 mg 2.5 mg, oral, 2 times daily before meals (lunch, dinner), First dose on Thu10/23/19 at 1730 1136 (Given - Provider: Lalita Lorenzana RN)1717 (Given - Provider: Meenu Vincent RN) 1200 (Given - Provider: Johnny Peterson, SENG)1806 (Given - Provider: Johnny Peterson, SENG) 0900 (Given - Provider: Johnny Peterson, SENG)1130 (Due) heparin 5,000 unit/mL injection 5,000 Units 5,000 Units, subcutaneous, Every 8 hours scheduled, First dose on Thu10/24/19 at 2230, Indications: Deep Vein Thrombosis Prevention 0528 (Given - Provider: Aparna Gan, SENG)1555 (Given - Provider: Jody De Luna RN)204 (Given - Provider: Erica Griffin RN) 0509 (Given - Provider: Erica Griffin RN)1517 (Given - Provider: Johnny Peterson, SENG)2046 (Given - Provider: Mimi Mchugh, SENG) 0540 (Given - Provider: Mimi Mchugh, SENG) hydroCHLOROthiazide (HYDRODIURIL) tablet 12.5 mg 12.5 mg, oral, Daily, First dose on Thu10/26/19 at 1015 1200 (Given - Provider: Johnny Peterson RN) 0903 (Given - Provider: Johnny Peterson RN) lidocaine (LIDODERM) 5 % patch 1 patch 1 patch, transdermal, Administer over 12 Hours, Daily, First dose on Thu10/25/19 at 1000, Do not cover the holes on the top side of the patch., Apply to affected area: chest 1017 (Medication Applied - Provider: Lalita Lorenzana, SENG)2100 (Medication Removed - Provider: Erica Griffin RN) 0911 (Medication Applied - Provider: Annemarie Nova RN)2046 (Medication Removed - Provider: Mimi Mchugh, SENG) 0901 (Medication Applied - Provider: Johnny Peterson, SENG)1304 (Due: Medication Removed - Provider: Automatic Discharge Provider - Comment: Time automatically adjusted from order being discontinued) montelukast (SINGULAIR) tablet 10 mg 10 mg, oral, Nightly, First dose on Thu10/22/19 at 2100 2047 (Given - Provider: Erica Griffin RN) 204 (Given - Provider: Mimi Mchugh, SENG) sodium chloride 0.9% flush 0.5-20 mL 0.5-20 mL, intra-catheter, Every 8 hours scheduled, First dose on Thu10/21/19 at 2200, Flush volume based on line type and size. 0422 (Given - Provider: Aparna Gan RN)1432 (Not Given - Provider: Jody De Luna RN - Reason: Order parameters not met)2307 (Not Given - Provider: Ercia Griffin RN - Reason: Other) 0534 (Not Given - Provider: Erica Griffin RN - Reason: Other)1400 (Due)2046 (Given - Provider: Mimi Mchugh, SENG) 0540 (Given - Provider: Mimi Mchugh RN) PRN Medication Order 10/25/2019 10/26/2019 10/27/2019 calcium carbonate (TUMS) chewable tablet 1,000 mg 1,000 mg (400 mg of elemental calcium), oral, Every 6 hours PRN, indigestion, Starting on 10/24/19 at 1840 0550 (Given - Provider: Aparna Gan RN)2337 (Given - Provider: Erica Griffin RN) camphor-menthol (SARNA) 0.5-0.5 % lotion topical, Every 6 hours PRN, irritation, itching, dry skin, Starting on 10/22/19 at 1538, Apply to affected area: other ondansetron (ZOFRAN) injection 4 mg 4 mg, intravenous, Administer over 2 Minutes, Every 4 hours PRN, nausea, vomiting, Starting on 10/22/19 at 0030 1913 (Given - Provider: Erica Griffin RN)2337 (Given - Provider: Erica Griffin RN) 0911 (Given - Provider: Annemarie Nova RN) oxyCODONE (ROXICODONE) tablet 10 mg (CANCELED) 10 mg, oral, Every 3 hours PRN, 2nd line for pain, Starting on Thu10/23/19 at 1110, Indications: Pain 0801 (Given - Provider: Lalita Lorenzana RN - Comment: patient requested 1 pill) oxyCODONE (ROXICODONE) tablet 5 mg 5 mg, oral, Every 3 hours PRN, 2nd line for pain, Starting on Thu10/25/19 at 0915, Indications: Pain 1913 (Given - Provider: Erica Griffin RN)2321 (Given - Provider: Erica Griffin RN) 0509 (Given - Provider: Erica Griffin RN)0911 (Given - Provider: Annemarie Lucia Lowe, RN)1926 (Given - Provider: Johnny Peterson RN)2322 (Return to Cabinet - Provider: Mimi Mchugh RN) 0220 (Given - Provider: Mimi Mchugh RN)0540 (Given - Provider: Mimi Mchugh RN)1237 (Given - Provider: Johnny Peterson RN) potassium chloride 20 mEq/50 mL in sterile water (premix) 20 mEq (CANCELED) 20 mEq, intravenous, at 25 mL/hr, Administer over 2 Hours, Every 1 hour PRN, K less than 3.5, Starting on Thu10/21/19 at 1738, Central line only, Indications: hypokalemia 0702 (New Bag - Provider: Aparna Gan RN) senna (SENOKOT) tablet 1 tablet 1 tablet, oral, Daily PRN, constipation, Starting on Thu10/26/19 at 0800 sodium chloride 0.9% flush 0.5-20 mL 0.5-20 mL, intra-catheter, As needed, line care, Starting on Thu10/21/19 at 1738, Flush volume based on line type and size. Flush before and after each use. Linked Groups Order Group 1: acetaminophen (TYLENOL) tablet 1,000 mg (CANCELED)Jump to med 1,000 mg, oral, Every 6 hours scheduled, First dose on Thu10/21/19 at 1815, If able to swallow medications., Indications: Pain Or acetaminophen (TYLENOL) 32 mg/mL oral solution 1,000 mg (CANCELED) 1,000 mg, feeding tube, Every 6 hours scheduled, First dose on Thu10/21/19 at 1815, If taking meds per tube., Indications: Pain Or acetaminophen (TYLENOL) suppository 650 mg (CANCELED) 650 mg, rectal, Every 6 hours scheduled, First dose on Thu10/21/19 at 1815, If unable to tolerate enteral administration., Indications: Pain documented in this encounter Orders Medications Ordered That Chris ht Not Have Been Administered Count Last Ordered Date First Ordered Date senna (SENOKOT) tablet 1 tablet 1 0 carvediloL (COREG) tablet 12.5 mg 1 02/16/2 020 HYDROmorphone (DILAUDID) injection 0.5 mg 1 10/22/2019 Lactated Ringer's (LR) infus ion - ADS Override Pull 1 10/22/2019 naloxone (NARCAN) 0.4 mg/mL injection 0.04-0.4 mg 1 10/22/2019 vasopressin in 0.9% sodium c hloride (PITRESSIN) 20 units/100 mL infusion (premix) - ADS Override Pull 1 10/22/2019 acetaminophen (TYLENOL) 32 m g/mL oral solution 1,000 mg 1 10/21/2019 acetaminophen (TYLENOL) suppository 650 mg 1 10/21/2019 acetaminophen (TYLENOL) tablet 650 mg dexMEDEtomidine in 0.9% sodi um chloride (PRECEDEX) 400 mcg/100 mL (4 mcg/mL) infusion (premix) 10/21/2019 dextrose (D10W) 10% bolus 250 mL 2 10/21/19 dextrose (GLUTOSE) 40 % gel 15 g 2 10/21/19 glucagon injection 1 mg 2 10/21/2019 heparin in 0.9% sodium chlor izabella 2,000 unit/1,000 mL (2 unit/mL) infusion (premix) 10/21/2019 HYDROmorphone (DILAUDID) injection 0.2 mg 1 10/21/2019 insulin lispro (HumaLOG) inj ection 1-3 Units 1 10/21/2019 lidocaine (LIDODERM) 5 % patch 2 patch 1 niCARdipine in sodium chlori de 0.9% (CARDENE) 25 mg/250 mL (0.1 mg/mL) infusion (premix) solution 10/21/2019 norepinephrine in dextrose 5 % (LEVOPHED) 8,000 mcg/250 mL (32 mcg/mL) infusion (premix) 2 10/21/2019 oxyCODONE (ROXICODONE) tablet 5 mg 1 2019 potassium chloride 20 mEq/50 mL in sterile water (premix) 20 mEq 1 10/21/2019 sodium chloride 0.9 % irrigation 1 10/21/19 20 sodium chloride 0.9% flush 0.5-20 mL 10/0810/17/2019 sodium chloride 0.9% solution 1,000 mL 3 sterile water irrigation 1 10/21/2019 vancomycin (VANCOCIN) solution 1 10/21/2019 vasopressin 20 Units in sodi um chloride 0.9% 100 mL (0.2 Units/mL) infusion 1 10/21/2019 fentaNYL (SUBLIMAZE) preserv ative free injection 1 10/18/2019 hydrALAZINE (APRESOLINE) injection 10 mg 1 10/18/2019 ioversol (OPTIRAY 350) injection 1 10/18/19 labetalol (NORMODYNE,TRANDAT E) injection 10 mg 1 10/18/2019 lidocaine (XYLOCAINE) 10 mg/ mL (1 %) injection 1 10/18/2019 midazolam (VERSED) preservat karolyn free injection 1 10/18/2019 Lab Orders Without Results Count Last Ordered D ate First Ordered Date POCT GLUCOSE DEVICE 4 10/25/2019 10/24/19 Imaging Orders Without Results Count Last Order ed Date First Ordered Date PEP THERAPY/AIRWAY CLEARANCE 10 10/24/2019 10/22/2019 EXTUBATION 1 10/21/2019 EKG Orders Without Results Count Last Ordered D ate First Ordered Date ECG 12-LEAD 1 10/24/2019 Diet Count Last Ordered Date First Orde red Date ADULT DISCHARGE DIET 1 10/27/2019 Nursing Count Last Ordered Date First Orde red Date DISCHARGE ACTIVITY 3 10/27/2019 DISCHARGE CALL PROVIDER 2 10/27/2019 DISCHARGE DRESSING 5 10/27/2019 DISCHARGE INSTRUCTIONS 1 10/27/2019 FOLLOW UP WITH ESTABLISHED PROVIDER 2 10/27 ALVA CATHETER - DISCONTINUE 1 10/25/2019 NURSING COMMUNICATION 2 10/18/2019 Consult Count Last Ordered Date First Orde red Date IP CONSULT TO PAIN MANAGEMENT 1 10/22/2019 IP CONSULT TO VASCULAR ACCESS TEAM 1 2019 IP CONSULT TO NUTRITION SERVICES 1 10/17/19 20 Transfer Count Last Ordered Date First Orde red Date TRANSFER PATIENT 2 10/25/2019 10/18/2019 CORE MEASURES Count Last Ordered Date First Ord ered Date REASON FOR NO VTE PROPHYLAXI S - HOSPITAL ADMISSION - MEDICATIONS 1 10/21/2019 REASON FOR NO VTE PROPHYLAXIS AT ADMISSION 1 10/18/2019 Case Request Count Last Ordered Date First Orde red Date CASE REQUEST LENS GRINDER AND POLISHER 1 10/18/2019 documented in this encounter Care Teams Outer Diameter Grinder Relationship Specialty Start Date End Date Abbe Nails MD [address] [place] [address] PCP - General 10/17/19 11/01/19 Nanci Giron MD Surgeon Vascular Surgery 10/12/19 Azar Ramírez MD [address] [place] [address] Surgeon Cardiothoracic Surgery 10/27/19 documented as of this encounter
--- OUTSIDE RECORDS SUMMARY | 2024-09-08 08:23 | XMS_ITS | Encounter Summary ---
Author Organization [facility] Address [address] [place] [address] Phone Care Team Providers Care Satellite Tv Installer Name Role Phone Zachary Giron MD Unavailable [phone] Abbe Nails MD Primary Care Provider [phone] Azar Lara MD Unavailable Abbe Nails MD Primary Care Provider [phone] Encounter Details Date Type Department Care Team (Late st Contact Info) Description 10/31/2019 Telephone [facility] Surgery [address] [facility] Advanced Medicine 8th [place] [address] [place] [address] Azar Lara MD [address] [place] [address] Social History Tobacco Use Types Packs/Day Years Used Date Smoking Tobacco: Former Cigarettes Smokeless Tobacco: Never Alcohol Use Standard Drinks/Week Comments Yes 0 (1 standard drink = 0.6 oz pur e alcohol) Comments Unknown Sex and Gender Information Value Date Recorded Sex Assigned at Not on file Legal Sex Female 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 Callers Name: Zachary Harp Callback: [phone] Attending: Cardiothoracic Attending: David Cardiothoracic Fellow: [facility] PROFESSION[facility] documented in this encounter Plan of Treatment Not on file documented as of this encounter Visit Diagnoses Not on filedocumented in this encounter Care Teams Satellite Tv Installer Relationship Specialty Start Date End Date Abbe Nails MD [address] [place] [address] PCP - General 10/17/19 11/01/19 Abbe Nails MD [address] [place] [address] PCP - General 11/03/19 06/30/22 Zachary Giron MD Surgeon Vascular Surgery 10/12/19 Azar Lara MD [address] [place] [address] Surgeon Cardiothoracic Surgery 10/27/19 documented as of this encounter
--- OUTSIDE RECORDS SUMMARY | 2024-09-08 08:23 | XMS_ITS | Encounter Summary ---
Author Organization [facility] Address [address] [place] [address] Care Team Providers Care Gear Changer Name Role Phone Zachary Giron MD Unavailable [phone] Abbe Nails MD Primary Care Provider Azar Lara MD Unavailable Abbe Nails MD Primary Care Provider [phone] Reason for Visit * Reason Comments Wound Check Encounter Details Date Type Department Care Team (Latest Contact Info) Description 10/31/2019 11:35 AM TERRAZZO INSTALLER - 11/04/2019 1:21 PM TERRAZZO INSTALLER Hospital Encounter [facility] [address] [place] [address] Maria Dolores Radford MD [address] [place] [address] Zachary Giron MD [address] [facility] [id number] [place] [address] Hematoma (Primary Dx); 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; Acute pain Discharge Disposition: Discharge to home, home health skilled care Social History Tobacco Use Types Packs/Day Years Used Date Smoking Tobacco: Former Cigarettes Smokeless Tobacco: Never Alcohol Use Standard Drinks/Week Comments Yes 0 (1 standard drink = 0.6 oz pur e alcohol) Comments Unknown Sex and Gender Information Value Date Recorded Sex Assigned at Not on file Legal Sex Female 3:40 AM TERRAZZO INSTALLER Gender Identity Not on file Sexual Orientation Not on file documented as of this encounter Last Filed Vital Signs Vital Sign Reading Time Taken Comments Blood Pressure 130/45 11/04/2019 11:50 AM TERRAZZO INSTALLER Pulse 64 11/04/2019 11:50 AM TERRAZZO INSTALLER Temperature 36.6 ??C (97.8 ??F) 11/04/2019 11:[address] Respiratory Rate 18 11/04/2019 11:50 AM TERRAZZO INSTALLER Oxygen Saturation 97% 11/04/2019 11:50 AM TERRAZZO INSTALLER Inhaled Oxygen Concentration - - Weight 88.5 kg (195 lb) 10/31/2019 11:10 AM TERRAZZO INSTALLER Height 170.2 cm (5' 7 ) 10/31/2019 11:10 AM TERRAZZO INSTALLER Body Mass Index 30.54 10/31/2019 11:10 AM TERRAZZO INSTALLER documented in this encounter Discharge Diagnoses Diagnosis Other postprocedural complications and disorders of nervous system - OTHER POSTPROCEDURAL COMPLICATIONS AND DISORDERS OF NERVOUS SYSTEM Postprocedural hematoma of skin and subcutaneous tissue following other procedure - POSTPROCEDURAL HEMATOMA OF SKIN AND SUBCUTANEOUS TISSUE FOLLOWING OTHER PROCEDURE Urinary tract infection, site not specified - URINARY TRACT INFECTION, SITE NOT SPECIFIED 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 Other surgical procedures as the cause of abnormal reaction of the patient, or of later complication, without mention of misadventure at the time of the procedure - OTHER SURGICAL PROCEDURES THE CAUSE OF ABNORMAL REACTION OF THE PATIENT, OR OF LATER COMPLICATION Unspecified place or not applicable - UNSPECIFIED PLACE OR NOT APPLICABLE Proteus (mirabilis) (morganii) as the cause of diseases classified elsewhere - PROTEUS (MIRABILIS) (MORGANII) THE CAUSE OF DISEASES CLASSIFIED ELSEWHERE Cannabis use, unspecified, uncomplicated - CANNABIS USE, UNSPECIFIED, UNCOMPLICATED Anxiety disorder, unspecified - ANXIETY DISORDER, UNSPECIFIED Other chronic pain - OTHER CHRONIC PAIN Essential (primary) hypertension - ESSENTIAL (PRIMARY) HYPERTENSION Unspecified essential hypertension Atherosclerotic heart disease of craig coronary artery without angina pectoris - ATHEROSCLEROTIC HEART DISEASE OF [place] CORONARY ARTERY WITHOUT ANGINA PECTORIS Hypertensive urgency - HYPERTENSIVE URGENCY Major depressive disorder, single episode, unspecified - MAJOR DEPRESSIVE DISORDER, SINGLE EPISODE, UNSPECIFIED Pain in right shoulder - PAIN IN RIGHT SHOULDER Cervicalgia - CERVICALGIA Headache - HEADACHE Constipation, unspecified - CONSTIPATION, UNSPECIFIED Other nursing home (current) drug therapy - OTHER SKILLED NURSING (CURRENT) DRUG THERAPY Family history of stroke - FAMILY HISTORY OF STROKE Family history of stroke (cerebrovascular) Family history of ischemic heart disease and other diseases of the circulatory system - FAMILY HISTORY OF ISCHEMIC HEART DISEASE AND OTHER DISEASES OF THE CIRCULATORY SYSTEM Personal history of transient ischemic attack (TIA), and cerebral infarction without residual deficits - PERSONAL HISTORY OF TRANSIENT ISCHEMIC ATTACK (TIA), AND CEREBRAL INFARCTION WITHOUT RESIDUAL DEFICI Personal history of nicotine dependence - PERSONAL HISTORY OF NICOTINE DEPENDENCE Allergy status to sulfonamides status - ALLERGY STATUS TO SULFONAMIDES STATUS Acquired absence of other specified parts of digestive tract - ACQUIRED ABSENCE OF OTHER SPECIFIED PARTS OF DIGESTIVE TRACT documented in this encounter Discharge Summaries * Annemarie Lynne NP - 11/04/2019 10:59 AM CST Inpatient Discharge Summary BRIEF OVERVIEW Admitting Provider: Zachary Giron MD Discharge Provider: Zachary Giron MD Primary Care Physician at Discharge: Abbe Nails MD [phone] Admission Date: 10/31/2019 Discharge Date: 11/04/2019 Admission Location: [facility] Problems/Diagnoses: Active Problems: Hypertension Hematoma of chest wall, right, initial encounter UTI (urinary tract infection) Acute pain 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 DETAILS OF HOSPITAL STAY Presenting Problem/History of Present Illness: Mrs. Saenz is a 73 year old female who underwent 10/21/2019 OR for bypass from ascending aorta toright axillary artery with 6mm PTFE and bypass from ascending aorta to right common carotid and left common carotid artery with 8mm and 7mm Dacron grafts. She was discharged 10/27/2019 in stable condition. However, since discharge she has developed right chest incision swelling. She reports it came o n all the sudden and she has applied ice without substantial improvement. Denies fever, chills, or paresthesias. She presented to ED for evaluation and development of headaches. She was admitted for evaluation of chest swelling and for treatment of presumed hyperperfusion syndrome. Hospital Course: The following issues were addressed over this hospitalization: # Headache 2/2 hyperperfusion syndrome in setting of recent carotid surgery: - Neurology and cardiology consulted on admission. - CTA without evidence of ipsilateral edema. - Admitted to ICU for strict blood pressure control with goal of less than SBP of 130. This was initially achieved with nicardipine. Cardiology assisted with transitioning to appropriate oral regimen. - Discharge regimen includes lisinopril 10mg, coreg 25mg BID, amlodipine 10mg daily, and hydrochlorothiazide 25mg daily. . - Renal doppler obtained to r/o renal artery stenosis, however left sided unable to visualize 2/2 large amount of bowel gas. - Headache resolved with lowering of blood pressure. - Patient will follow up with cardiology vs PCP within 1 week of discharge for BP check. # Right chest fluid collection: - CT scan showed 10X4 fluid collection. - No signs of infectious etiology. - Non-operable management. Should resolve on its own over time. # Proteus UTI: - Noted to have foul smelling urine prompting urine culture. - Started on IV ceftriaxone. - Cultures postive for Proteus which was susceptible to Cefdinir. Transitioned to cefdinir at discharge and will complete a total of 7 day course. 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 - Continue aspirin. - Continue PT/OT. Active Issues Requiring Follow-up: Postoperative follow up. Strict BP control. Test Results Pending at Discharge: Pending Labs Order Current Status Type and screen In process Operative Procedures Performed: None. Other Procedures: None. Pertinent Test Results: None. Discharge Details Physical Exam at Discharge: Discharge Condition: good Pulse: 64 Resp: 18 BP: 130/45 Temp: 36.6 ??C (97.8 ??F) Weight: 88.5 kg (195 lb) Pertinent Exam Findings at Discharge: GENERAL: Awake, alert, oriented x 4; no acute distress. HEENT: Eyes: Pupils equal, round, reactive to light and accommodation. RESPIRATORY: Good respiratory effort. CARDIOVASCULAR: Regular rate and rhythm. GASTROINTESTINAL: No tenderness. Abdomen is nondistended. MUSCULOSKELETAL: Range of motion adequate. Strength and tone equal bilaterally, stable. PULSES: Right radial pulse palpable. INCISIONS: Right neck/chest incision with ecchymosis noted, stable fluid collection. Sternotomy well approximated. Both incisions closed with Dermabond. NEUROLOGICAL: Sensation intact. ?? Discharge Disposition: Discharge to home or self care Code Status at Discharge: Full. Discharge Instructions: Activity Instructions Discharge Activity: Driving restrictions -Do not drive for 3 week(s) or while taking narcotic pain medications. Discharge Activity: Elevate legs -Keep your legs elevated while sitting. Prop your legs on 1-2 pillows while in bed to reduce swelling. Discharge Activity: Lifting restrictions -Do NOT lift greater than 10 pounds until cleared by Dr. Giron. Discharge Activity: Walking -You may walk as tolerated and climb stairs. Diet Instructions Adult Discharge Diet Diet Type: Return to previous diet Other Instructions Ambulatory referral to Home Health Service Line: Home Health Primary disciplines requested: Physical Therapy Home Health Services: Wound/ Ostomy Care Strengenthing/ Balance Therapy to Eval/ Treat Physician to follow patient's care (the person listed here will be responsible for signing ongoing orders): PCP Requested Start of Care Date: Within 2 - 3 Days Special instructions (labs, wound care, etc.): Continuation from previous discharge. Wound check, BP checks, medication check. PT eval and treat. I attest that I or another qualified licensed provider saw the patient 90 days prior to or 30 days post admission and this face to face encounter meets the necessary Home Health requirements. The face to face encounter occurred on (date): 11/04/2019 The encounter with the patient was in whole, or in part, for the following medical condition, whichis the primary reason for home health care. (List medical condition): PAD I certify that, based on my findings, the following services are medically necessary skilled home health services: Wound/ Ostomy Care Strengthening Exercises Therapy to Eval/ Treat Strengenthing/ Balance Clinical findings that support the need for home care: Wound requiring care, assessment, and instruction Frequent falls requiring safety eval/therapy Lack of knowledge regarding medications, requires education and assessment I certify that my clinical findings support patient's homebound status. Homebound criteria met because: Poor endurance Requires assistance of another to leave home safely Abnormal gait/unsteady balance resulting in fall risk Pain and impaired mobility post-op Call provider for: If you experience a headache behind one of your eyes or on one side of your face, or if you are experiencing the worst headache of your life, please call the office and head to your nearest EmergencyRoom for evaluation. Call provider for: Open Aortic Repair -You have redness or drainage from the incision -You have a temperature greater than 101 degrees F -You have increased abdominal or back pain, bloating, nausea, vomiting or persistent diarrhea -You are not able to drink liquids -You have decreases amounts of urine or urine that is darker in color -You have leg or arm pain with coolness -You have swelling in [...] to use your incentive spirometer Care Instructions: Incisions -Keep incisions clean and dry Care Instructions: No tub baths -No tub baths, whirlpools or swimming until your doctor says it's ok. Care Instructions: Shower -You may shower. Skin Glue Special glue has been placed on your incision. It will flake off over 1 week. Do not pick, scratch or rub. This may cause it to come off before your incision has healed. Special Instructions Continue to avoid IV sticks and Blood pressures on right arm. [facility] - [phone] Please call for date and time of visit if you do not hear from them within 48 hours of d/c. Discharge Medications: Current Medications TAKE these medications acetaminophen 500 mg capsule Take 2 capsules (1,000 mg total) by mouth every 6 (six) hours as needed for pain amLODIPine 10 mg tablet Take 1 tablet (10 mg total) by mouth daily Commonly known as: NORVASC aspirin 325 mg tablet take 1 tablet by oral route every day atorvastatin 80 mg tablet take 1 tablet by oral route every day Commonly known as: LIPITOR bisacodyL 10 mg suppository Insert 1 suppository (10 mg total) into the rectum daily as needed for constipation For: constipation Commonly known as: DULCOLAX buPROPion XL 150 mg 24 hr tablet take 1 tablet by oral route 2 times every day Commonly known as: WELLBUTRIN XL camphor-menthoL lotion Apply topically every 6 (six) hours as needed for irritation, itching or dry skin Avoid incision sites Commonly known as: SARNA carvediloL 25 mg tablet Take 1 tablet (25 mg total) by mouth 2 (two) times a day Commonly known as: COREG cefdinir 300 mg capsule Take 1 capsule (300 mg total) by mouth 2 (two) times a day for 5 days For: Urinary Tract/Genitourinary Infection Commonly known as: OMNICEF doxycycline monohydrate 50 mg tablet Take 50 mg by mouth 2 (two) times a day. Commonly known as: ADOXA hydroCHLOROthiazide 25 mg tablet Take 25 mg by mouth daily Commonly known as: HYDRODIURIL lidocaine 5 % Place 1 patch on the skin daily Remove & discard patch within 12 hours or as directed by MD. Commonly known as: LIDODERM lisinopriL 10 mg tablet Take 1 tablet (10 mg total) by mouth daily Commonly known as: PRINIVIL,ZESTRIL montelukast 10 mg tablet take 1 tablet [...] 4 (four) hours as needed for pain For: pain Commonly known as: ROXICODONE polyethylene glycol 17 gram packet Take 1 packet (17 g total) by mouth daily as needed for constipation For: constipation Commonly known as: MIRALAX senna-docusate 8.6-50 mg Take 1-2 tablets by mouth 2 (two) times a day as needed for constipation Commonly known as: Senna Plus ZyrTEC 10 mg tablet take 1 tablet by oral route every day Generic drug: cetirizine Outpatient Follow-Up: Future Appointments Date Time Provider Department Center 12/01/2019 10:45 AM Azar Lara MD [facility] 8A [facility] 12/05/2019 11:00 AM LISSETTE FARRAR [facility] CAM[facility]D [facility] 12/05/2019 11:30 AM Zachary Giron MD [facility] 8A [facility] 04/13/2020 11:30 AM Rianna Arredondo MD [facility] Contact Information for Follow-ups Dr Perez Alexander [phone] [facility] [id number] Next Steps: Go on 11/11/2019 Instructions: 9:45AM Cosigned by Zachary Giron MD at 11/05/2019 9:17 AM TERRAZZO INSTALLER AZZO INSTALLER AZZO INSTALLER Associated attestation - Zachary Giron MD - 11/05/2019 9:17 AM TERRAZZO INSTALLER I have seen and examined the patient on 11/04/2019. I agree with the findings and plan of care as documented in the resident's/fellow's note. documented in this encounter Discharge Instructions * Discharge Instr - Other Orders* Nilda Sanchez RN - 11/02/2019 3:04 PM TERRAZZO INSTALLER [facility] [phone] Please call for date and time of visit if you do not hear from them within 48 hours of d/c. AZZO INSTALLER AZZO INSTALLER AZZO INSTALLER AZZO INSTALLER documented in this encounter Medications at Time of Discharge acetaminophen 500 mg capsule Take 2 capsules (1,000 mg total) by mouth every 6 (six) hours as needed for pain 30 tablet 0 amLODIPine (NORVASC) 10 mg tablet Take 1 tablet (10 mg total) by mouth daily 30 tablet 11 0 aspirin 325 mg tablet take 1 tablet by oral route every day 0 0 6 atorvastatin (LIPITOR) 80 mg tablet take 1 tablet by oral route every day 0 0 6 buPROPion XL (WELLBUTRIN XL) 150 mg 24 hr tablet take 1 tablet by oral route 2 times every day 0 0 5 carvediloL (COREG) 25 mg tablet Take 1 tablet (25 mg total) by mouth 2 (two) times a day 60 tablet 11 0 cetirizine (ZyrTEC) 10 mg tablet take 1 tablet by oral route every day 0 0 5 hydroCHLOROthiazide (HYDRODIURIL) 25 mg tabletIndications:h ypertension Take 1 tablet (25 mg total) by mouth every morning lisinopriL (PRINIVIL,ZESTRIL) 10 mg tablet Take 1 tablet (10 mg total) by mouth daily 30 tablet 11 0 montelukast (SINGULAIR) 10 mg tablet take 1 tablet by oral route every day in the evening 0 0 7 cefdinir (OMNICEF) 300 mg capsuleIndications: Urinary Tract/Genitourinary Infection Take 1 capsule (300 mg total) by mouth 2 (two) times a day for 5 days 10 capsule 0 11/09/19 20 lidocaine (LIDODERM) 5 % Place 1 patch on the skin daily Remove & discard patch within 12 hours or as directed by MD. 30 patch 0 11/26/19 20 bisacodyL (DULCOLAX) 10 mg suppositoryIndicati ons:constipation Insert 1 suppository (10 mg total) into the rectum daily as needed for constipation 12 suppository 0 08/14/20 21 camphor-menthol (SARNA) lotion Apply topically every 6 (six) hours as needed for irritation, itching or dry skin Avoid incision sites 222 mL 0 08/14/20 21 doxycycline (ADOXA) 50 mg tablet Take 50 [...] as needed for pain 20 tablet 0 07/03/20 22 polyethylene glycol (MIRALAX) 17 gram packetIndications:c onstipation Take 1 packet (17 g total) by mouth daily as needed for constipation 0 08/14/20 21 senna-docusate (Senna Plus) 8.6-50 mg Take 1-2 tablets by mouth 2 (two) times a day as needed for constipation 20 tablet 0 08/14/20 21 documented as of this encounter Ordered Prescriptions Prescription Sig Dispense Quantity Refills Last Filled Start Date End Date lisinopriL (PRINIVIL,ZESTRIL ) 10 mg tablet Take 1 tablet (10 mg total) by mouth daily 30 tablet 11 0 amLODIPine (NORVASC) 10 mg tablet Take 1 tablet (10 mg total) by mouth daily 30 tablet 11 0 acetaminophen 500 mg capsule Take 2 capsules (1,000 mg total) by mouth every 6 (six) hours as needed for pain 30 tablet 0 carvediloL (COREG) 25 mg tablet Take 1 tablet (25 mg total) by mouth 2 (two) times a day 60 tablet 11 0 senna-docusate (Senna Plus) 8.6-50 mg Take 1-2 tablets by mouth 2 (two) times a day as needed for constipation 20 tablet 0 08/14/20 21 polyethylene glycol (MIRALAX) 17 gram packetIndications :constipation Take 1 packet (17 g total) by mouth daily as needed for constipation 0 08/14/20 21 cefdinir (OMNICEF) 300 mg capsuleIndication s:Urinary Tract/Genitourina ry Infection Take 1 capsule (300 mg total) by mouth 2 (two) times a day for 5 days 10 capsule 0 11/09/19 20 bisacodyL (DULCOLAX) 10 mg suppositoryIndica tions:constipatio n Insert 1 suppository (10 mg total) into the rectum daily as needed for constipation 12 suppository 0 08/14/20 21 oxyCODONE (ROXICODONE) 5 mg immediate release tabletIndications :Pain Take 1 tablet (5 mg total) by mouth every 4 (four) hours as needed for pain 20 tablet 0 07/03/20 22 documented in this encounter Discharge Disposition Disposition Code Departure Means Destination Discharge to home, home health skilled care documented in this encounter Progress Notes * Nilda Sanchez RN - 11/04/2019 11:56 AM CST 11/02/19 1504 Discharge Summary Chart reviewed For Medical Necessity Does patient have a planned readmission to hospital planned? No Discharge Disposition Home with Home Health (PT/OT/RN) Equipment/Provider Needs Home Provider Services Needs Identified Home Care Agency [facility] Home Care Agency Name [facility] Home Care Agency Order Faxed to Discharge Additional Assistance Does the patient need [...] appointment made. Nurse to instruct ond/c orders. AZZO INSTALLER * Nilda Sanchez RN - 11/04/2019 11:47 AM CST 11/02/19 1504 Discharge Summary Chart reviewed For Medical Necessity Does patient have a planned readmission to hospital planned? No Discharge Disposition Home with Home Health (PT/OT/RN) Equipment/Provider Needs Home Provider Services Needs Identified Home Care [facility] Home Care Agency Name [facility] Care Agency Home Care Agency Order Faxed to [phone] Discharge Additional Assistance Does the patient need [...] appointment made. Nurse to instruct ond/c orders. AZZO INSTALLER * Annemarie Lynne NP - 11/03/2019 9:01 AM CST Vascular Surgery Daily Progress Patient Name/MRN: Suma Saenz [id number] Treatment Team: Vascular Surgery- Pager: [phone] Attending: Zachary Giron MD Today's Date: 11/03/2019 Room/Bed: [place] [id number] Admit Date: 10/31/2019 Code Status: Full Code Subjective Chief complaint: Rt chest swelling, headaches Events During This Hospitalization: 10/31 Presented to ED with swelling over right chest incision after 10/21 aorta to R axillary and R and L CCA bypasses. CT with 10X4 fluid collection. Endorses headaches and there was concern for hyperperfusion syndrome. Admitted to ICU for BP control. 11/02: Transitioned to oral anti-hypertensives. Transferred to floor from ICU. Events Over Last 24 Hours: Required 3 doses of PRN hydralazine yesterday. BP better controlled overnight. Allergies Allergen Reactions ??? Naproxen Rash ??? Nsaids (Non-Steroidal Anti-Inflammatory Drug) Hives ??? Penicillins Rash ??? Sulfa (Sulfonamide Antibiotics) Rash Current Facility-Administered Medications Medication Dose Route Frequency Provider Last Rate Last Dose ??? acetaminophen (TYLENOL) tablet 1,000 mg 1,000 mg oral Q6H PRN Tash Villatoro NP 1,000 mg at 11/03/19 0524 ??? amLODIPine (NORVASC) tablet 10 mg 10 mg oral Daily Tash Villatoro NP 10 mg at 11/03/19 0843 ??? aspirin tablet 325 mg 325 mg oral Daily Tash Villatoro NP 325 mg at 11/03/19 0843 ??? atorvastatin (LIPITOR) tablet 80 mg 80 mg oral Nightly Tash Villatoro NP 80 mg at 11/02/192057 ??? buPROPion XL (WELLBUTRIN XL) 24 hour tablet 150 mg 150 mg oral Daily Tash Villatoro NP 150 mg at 11/03/19 0843 ??? camphor-menthol (SARNA) 0.5-0.5 % lotion topical Q6H PRN Tash Ruthie Villatoro, PERINATAL EDUCATOR ??? carvediloL (COREG) tablet 25 mg 25 mg oral BID Tash Villatoro, PERINATAL EDUCATOR 25 mg at 11/03/19 0842 ??? cefTRIAXone (ROCEPHIN) 1,000 mg/10 mL in sterile water (premix) 1,000 mg 1,000 mg intravenous Q24H [facility] Tash Villatoro, PERINATAL EDUCATOR 120 mL/hr at 11/03/19 0843 1,000 mg at 11/03/19 0843 ??? cetirizine (ZyrTEC) tablet 10 mg 10 mg oral Daily Tash Villatoro, PERINATAL EDUCATOR 10 mg at 11/03/19 0843 ??? docusate sodium (COLACE) capsule 100 mg 100 mg oral BID Tash Villatoro PERINATAL EDUCATOR 100 mg at 11/03/19 0842 ??? heparin 5,000 unit/mL injection 5,000 Units 5,000 Units subcutaneous Q8H [facility] Kimberly Connor, PERINATAL EDUCATOR 5,000 Units at 11/03/19 0524 ??? hydrALAZINE (APRESOLINE) injection 10 mg 10 mg intravenous Q2H PRN Annemarie Lynne, PERINATAL EDUCATOR 10 mg at 11/02/19 1620 ??? hydroCHLOROthiazide (HYDRODIURIL) tablet 25 mg 25 mg oral Daily Tash Villatoro PERINATAL EDUCATOR 25 mg at 11/03/19 0843 ??? lidocaine (LIDODERM) 5 % patch 1 patch 1 patch transdermal Daily Tash Villatoro NP 0 mL/hr at 11/01/19 0854 1 patch at 11/02/19 2102 ??? lisinopriL (PRINIVIL,ZESTRIL) tablet 5 mg 5 mg oral Daily Tash Villatoro PERINATAL EDUCATOR 5 mg at 11/03/19 0842 ??? montelukast (SINGULAIR) tablet 10 mg 10 mg oral Nightly Tash Villatoro PERINATAL EDUCATOR 10 mg at 11/02/19 2101 ??? oxyCODONE (ROXICODONE) tablet 5 mg 5 mg oral Q4H PRN Tash Villatoro PERINATAL EDUCATOR 5 mg at 11/03/19 0636 ??? polyethylene glycol (MIRALAX) packet 17 g 17 g oral Daily Sultana Sotelo, PERINATAL EDUCATOR 17 g at 11/03/19 0843 ??? senna (SENOKOT) tablet 2 tablet 2 tablet oral BID Annemarie Ramos Lynne, PERINATAL EDUCATOR 2 tablet at 11/03/19 0843 ??? sodium chloride 0.9% flush 0.5-20 mL 0.5-20 mL intra-catheter Q8H [facility] Tash Villatoro, PERINATAL EDUCATOR 10 mL at 11/03/19 0524 Objective Vitals: 24hr Min/Max: Temp Min: 36.6 ??C (97.9 ??F) Max: 37.2 ??C (99 ??F) Pulse Min: 60 Max: 75 BP Min: 110/88 Max: 157/48 Resp Min: 15 Max: 23 SpO2 Min: 93 % Max: 99 % Most Recent : Vitals: 11/03/19 0840 BP: (!) 133/36 Pulse: 67 Resp: Temp: SpO2: I/O last 2 completed shifts: In: 490 [P.O.:480; IV Piggyback:10] Out: 550 [Urine:550] No intake/output data recorded. Physical Exam: GENERAL: Awake, alert, oriented x 4; no acute distress. HEENT: Eyes: Pupils equal, round, reactive to light and accommodation. RESPIRATORY: Good respiratory effort. CARDIOVASCULAR: Regular rate and rhythm. GASTROINTESTINAL: No tenderness. Abdomen is nondistended. MUSCULOSKELETAL: Range of motion adequate. Strength and tone equal bilaterally, stable. PULSES: Right radial pulse palpable. INCISIONS: Right neck/chest incision with ecchymosis noted, stable fluid collection. Sternotomy well approximated. Both incisions closed with Dermabond. NEUROLOGICAL: Sensation intact. 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 - Coreg 25mg BID, hctz 25 daily, amlodipine 10mg daily, lisinopril 5mg daily. PRN hydral. - Appreciate cardiology recs. - renal doppler: right without evidence of stenosis. Left unable to visualize 2/2 gas. - Q4 hour [place] checks, monitor for headache. # Proteus UTI: - Continue ceftriaxone. - Follow cultures. 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 - Continue aspirin. - Continue PT/OT. # Chronic Neck Pain: - lidocaine patches, (cannabis use at home), PRN oxycodone and acetaminophen. # Constipation: - bowel regimen started. - offer Prn suppository. # Right chest fluid collection: - CT scan with 10X4 fluid collection. - No signs of infection. - Non-operable management. Cosigned by Zachary Giron MD at 11/05/2019 9:25 AM TERRAZZO INSTALLER AZZO INSTALLER AZZO INSTALLER AZZO INSTALLER Associated attestation - Zachary Giron MD - 11/05/2019 9:25 AM TERRAZZO INSTALLER I have seen and examined the patient on November 03, 2019. I agree with the findings and plan of care with the following modifications:I saw her on 7500. The right infraclavicular hematoma is stable,perhaps a bit decreased in size. Bilateral radial pulses are palpable. She remains neurologically intact. There have been no recurrence of her headaches and her blood pressure is well controlled. We are getting her set up for discharge to home tomorrow. She will follow up with her local PCP and septic tank servicer with regards to ongoing blood pressure control... * Tash Villatoro NP - 11/02/2019 5:[address] ICU Daily Progress Shifts: NPP Shift Options: 8300 AM 1 Subjective Patient is a 73 y.o. female admitted to the hospital on 10/31/2019 11:35 AM with/following: Right upper chest swelling & recurrent headaches??- possible cerebral hyperperfusion syndrome ?? Remote history: 10/21:??s/p aortic arch reconstruction with aorta to bilateral carotid graft and aorta to right axillary artery graft Interval History: Yesterday, Clevidipine turned off around 1500 and cuff pressures have remained < 130 overnight. She had no complaints of headaches overnight, just some right scapular pain which is chronic for her. UA sent yesterday morning and Ceftriaxone was started 11/01 for UTI which has not speciated this AM. Afebrile. No pressor support. Objective Medications: Scheduled Meds:amLODIPine, 10 mg, oral, Daily aspirin, 325 mg, oral, Daily atorvastatin, 80 mg, oral, Nightly buPROPion XL, 150 mg, oral, Daily carvediloL, 25 mg, oral, BID cefTRIAXone, 1,000 mg, intravenous, Q24H REID cetirizine, 10 mg, oral, Daily docusate sodium, 100 mg, oral, BID dronabinoL, 2.5 mg, oral, BID heparin, 5,000 Units, subcutaneous, Q8H REID hydroCHLOROthiazide, 25 mg, oral, Daily lidocaine, 1 patch, transdermal, Daily montelukast, 10 mg, oral, Nightly polyethylene glycol, 17 g, oral, Daily senna, 1 tablet, oral, BID sodium chloride 0.9%, 0.5-20 mL, intra-catheter, Q8H REID Vitals: Temp: [36.6 ??C (97.8 ??F)-37.1 ??C (98.8 ??F)] 37 ??C (98.6 ??F) Pulse: [61-78] 77 BP: (104-149)/(39-92) 127/43 Resp: [15-26] 16 SpO2: [90 %-98 %] 96 % Arterial Line BP: (84-184)/(35-55) 164/51 Fluid balance: I/O this shift: In: 240 [P.O.:240] Out: 200 [Urine:200] Intake/Output Summary (Last 24 hours) at 11/02/2019 0926 Last data filed at 11/02/2019 0800 Gross per 24 hour Intake 1000 ml Output 1100 ml Net -100 ml Hemodynamic parameters: PAP: -- CVP: -- PCWP: -- CO: -- CI: -- SVO2: -- Pacemaker Overdrive Pacing: -- Cardiac Rhythm: Normal sinus rhythm (11/02 0800) Pacer Mode: -- Physical exam: Neuro: Alert, oriented, able to follow simple commands, PERRL 2mm, CAM(-). Denies headache Cardiovascular: S1 S2, RRR, periphery warm with palpable pulses, no significant edema Pulmonary: On room air. Breath sounds clear to auscultation bilaterally, normal respiratory rate and effort GI: Abdomen soft, non-distended, bowel sounds hypoactive. : Voids Skin: Right upper chest incision well approximated with underlying hematoma and ecchymosis, withoutwarmth or erythema. Midline sternal incision well approximated and healed. Lines: L radial freeman with dressings clean, dry, intact. PIV Laboratory data: Recent Labs Lab Units 11/01/197 10/31/19 1207 10/27/19 0041 WBC K/cumm 10.5* 11.2* 6.2 HEMOGLOBIN g/dL 8.4* 9.1* 8.8* HEMATOCRIT % 25.2* 28.4* 26.6* PLATELETS K/cumm 479* 447* 285 Recent Labs Lab Units 11/01/19 0237 10/31/19 1207 10/27/19 0041 SODIUM mmol/L 136 138 133* POTASSIUM PLASMA mmol/L 4.2 4.8 3.9 CHLORIDE mmol/L 103 104 100 CO2 mmol/L 23 25 25 BUN SERUM mg/dL 11 11 17 CREATININE mg/dL 0.76 0.70 0.83 CALCIUM mg/dL 8.6 9.1 9.0 Recent Labs Lab Units 10/31/19 120 PROTIME (PT) sec 12.1 INR 1.1 APTT sec 34 Recent Labs Lab Units 11/01/19 0237 PH ART 7.46* PCO2 ART mmHg 31* PO2 ART mmHg 78* BASE EXC ART mmol/L -2 Radiology/Diagnostic Review No PM xray or AM labs. Assessment/Plan Hypertension Assessment & Plan SBP goal < 130 in setting of [...] for renal artery stenosis. 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 She was started on Ceftriaxone 1 gram Q 24 on 11/01 and was reflexed to culture which came back as + gram negative bacilli and speciated to Proteus Mirabilis. WBC 10.5 (11.2) - Ceftriaxone 1 gram Q 24 for 7-10 days. Hematoma of chest wall, right, initial encounter Assessment & Plan Could be hematoma vs seroma. No plan [...] Heparin daily -Cardiac diet -Antihypertensives as above Tash Villatoro AGACNP-BC AZZO INSTALLER * Mario Leiva MD - 11/02/2019 4:02 PM CST Vascular Surgery Daily Progress Patient Name/MRN: Suma Saenz [id number] Treatment Team: Vascular Surgery Attending: Zachary Giron MD Today's Date: 11/02/2019 Room/Bed: [id number] Admit Date: 10/31/2019 Code Status: Full Code Subjective Chief complaint: Headache Events Over Last 24 Hours: No headache. Neuro intact. Allergies Allergen Reactions ??? Naproxen Rash ??? Nsaids (Non-Steroidal Anti-Inflammatory Drug) Hives ??? Penicillins Rash ??? Sulfa (Sulfonamide Antibiotics) Rash Current Facility-Administered Medications Medication Dose Route Frequency Provider Last Rate Last Dose ??? acetaminophen (TYLENOL) tablet 1,000 mg 1,000 mg oral Q6H PRN Tash Villatoro NP 500 mg at11/02/19 1434 ??? amLODIPine (NORVASC) tablet 10 mg 10 mg oral Daily Tsah Villatoro NP 10 mg at 11/02/19812 ??? aspirin tablet 325 mg 325 mg oral Daily Tash Villatoro NP 325 mg at 11/02/19812 ??? atorvastatin (LIPITOR) tablet 80 mg 80 mg oral Nightly Tash Villatoro NP 80 mg at 11/01/192037 ??? buPROPion XL (WELLBUTRIN XL) 24 hour tablet 150 mg 150 mg oral Daily Tash Villatoro NP 150 mg at 11/02/1913 ??? camphor-menthol (SARNA) 0.5-0.5 % lotion topical Q6H PRN Tash Villatoro NP ??? carvediloL (COREG) tablet 25 mg 25 mg oral BID Tash Villatoro PERINATAL EDUCATOR 25 mg at 11/02/19 0813 ??? cefTRIAXone (ROCEPHIN) 1,000 mg/10 mL in sterile water (premix) 1,000 mg 1,000 mg intravenous Q24H [facility] Tash Villatoro PERINATAL EDUCATOR Stopped at 11/02/19 0830 ??? cetirizine (ZyrTEC) tablet 10 mg 10 mg oral Daily Tash Villatoro PERINATAL EDUCATOR 10 mg at 11/02/19 0813 ??? docusate sodium (COLACE) capsule 100 mg 100 mg oral BID Tash Villatoro PERINATAL EDUCATOR 100 mg at 11/02/19 0813 ??? dronabinoL (MARINOL) capsule 2.5 mg 2.5 mg oral BID Tash Villatoro NP 2.5 mg at 11/02/19 0813 ??? heparin 5,000 unit/mL injection 5,000 Units 5,000 Units subcutaneous Q8H [facility] Kimberly Connor, NAKIA 5,000 Units at 11/02/19 1430 ??? hydrALAZINE (APRESOLINE) injection 10 mg 10 mg intravenous Q2H PRN Annemarie Lynne NP ??? hydroCHLOROthiazide (HYDRODIURIL) tablet 25 mg 25 mg oral Daily Tash Villatoro PERINATAL EDUCATOR 25 mg at 11/02/19 0813 ??? lidocaine (LIDODERM) 5 % patch 1 patch 1 patch transdermal Daily Tash Villatoro NP Stopped at 11/01/19 0854 ??? lisinopriL (PRINIVIL,ZESTRIL) tablet 5 mg 5 mg oral Daily Tash Villatoro NP 5 mg at 11/02/19 1221 ??? montelukast (SINGULAIR) tablet 10 mg 10 mg oral Nightly Tash Villatoro NP 10 mg at 11/01/192038 ??? oxyCODONE (ROXICODONE) tablet 5 mg 5 mg oral Q4H PRN Tash Villatoro PERINATAL EDUCATOR 5 mg at 11/02/19 1430 ??? polyethylene glycol (MIRALAX) packet 17 g 17 g oral Daily Sultana Sotelo NP 17 g at 11/02/19 0821 ??? senna (SENOKOT) tablet 1 tablet 1 tablet oral BID Tash Villatoro NP 1 tablet at 11/02/19 0813 ??? sodium chloride 0.9% flush 0.5-20 mL 0.5-20 mL intra-catheter Q8H [facility] Tash Villatoro, PERINATAL EDUCATOR 10 mL at 11/02/19 1431 Objective Vitals: 24hr Min/Max: Temp Min: 36.6 ??C (97.8 ??F) Max: 37.1 ??C (98.8 ??F) Pulse Min: 60 Max: 78 BP Min: 101/47 Max: 157/48 Resp Min: 15 Max: 26 SpO2 Min: 93 % Max: 99 % Most Recent : Vitals: 11/02/19 1500 BP: 157/48 Pulse: 73 Resp: 15 Temp: SpO2: 99% I/O last 2 completed shifts: In: 1151.3 [P.O.:920; I.V.:221.3; IV Piggyback:10] Out: 1250 [Urine:1250] I/O this shift: In: 490 [P.O.:480; IV Piggyback:10] Out: 550 [Urine:550] Physical Exam: General appearance: appears stated age Constitutional: No acute distress Eyes: EOMI, anicteric Cardiovascular: normal rate, regular rhythm Right Radial: palp Right Femoral: palp Right DP: palp Right PT: palp Left Radial: palp Left Femoral: palp Left DP: palp Left PT: palp Respiratory: non-labored breathing Skin: no ulceration, right shoulder fluid collection stable GI: Soft, non-tender; non-distended. No pusatile abdominal mass Muskuloskeletal: Extremities MAEW Neuro: Alert and oriented x4, non-focal Lab/Radiology/Diagnostic Review: Laboratory review: Chemistry BMP Lab Results Component Value Date GLUCOSE 155 11/01/2019 CALCIUM 8.6 11/01/2019 SODIUM 136 11/01/2019 POTASSIUM 4.2 11/01/2019 CO2 23 11/01/2019 BUNSER 11 11/01/2019 CREATININE 0.76 11/01/2019 and CBC: Lab Results Component Value Date WBC 10.5 (H) 11/01/2019 RBC 2.63 (L) 11/01/2019 HGB 8.4 (L) 11/01/2019 HCT 25.2 (L) 11/01/2019 MCV 95.8 11/01/2019 MCH 31.9 11/01/2019 MCHC 33.3 11/01/2019 RDWCV 15.1 (H) 11/01/2019 RDWSD 51.7 (H) 11/01/2019 MPV 8.8 (L) 11/01/2019 NRBCABS 0.00 11/01/2019 Assessment/Plan Suma Saenz is a 73 y.o. female who was admitted for headache in setting of recent revascularization of carotid. - Neurology consulted for hyperperfusion - Aggressive BP/HR management to SBP <120 - No intervention on fluid collection - Cardiology on board for help with HTN Cosigned by Zachary Giron MD at 11/02/2019 10:25 PM TERRAZZO INSTALLER AZZO INSTALLER AZZO INSTALLER Associated attestation - Zachary Giron MD - 11/02/2019 10:25 PM TERRAZZO INSTALLER I have seen and examined the patient on 11/02/19. I agree with the findings and plan of care as documented in the resident's/fellow's note. * Annemarie Lynne NP - 11/02/2019 3:02 PM CST Vascular Surgery Daily Progress Patient Name/MRN: Suma Saenz [id number] Treatment Team: Vascular Surgery- Pager: [phone] Attending: Zachary Giron MD Today's Date: 11/02/2019 Room/Bed: [place] [id number] Admit Date: 10/31/2019 Code Status: Full Code Subjective Chief complaint: Rt chest swelling, headaches Events During This Hospitalization: 10/31 Presented to ED with swelling over right chest incision after 10/21 aorta to R axillary and R and L CCA bypasses. CT with 10X4 fluid collection. Endorses headaches and there was concern for hyperperfusion syndrome. Admitted to ICU for BP control. 11/02: Transitioned to oral anti-hypertensives. Transferred to floor from ICU. Events Over Last 24 Hours: Pain in neck improved, currently at a 3. Allergies Allergen Reactions ??? Naproxen Rash ??? Nsaids (Non-Steroidal Anti-Inflammatory Drug) Hives ??? Penicillins Rash ??? Sulfa (Sulfonamide Antibiotics) Rash Current Facility-Administered Medications Medication Dose Route Frequency Provider Last Rate Last Dose ??? acetaminophen (TYLENOL) tablet 1,000 mg 1,000 mg oral Q6H PRN Kimberly Connor NP 500 mg at 11/02/19 1434 ??? amLODIPine (NORVASC) tablet 10 mg 10 mg oral Daily Kimberly Connor NP 10 mg at 11/02/19 08 ??? aspirin tablet 325 mg 325 mg oral Daily Cassidy Bhatti MD PhD 325 mg at 11/02/19812 ??? atorvastatin (LIPITOR) tablet 80 mg 80 mg oral Nightly Cassidy Bhatti MD PhD 80 mg at 11/01/192037 ??? buPROPion XL (WELLBUTRIN XL) 24 hour tablet 150 mg 150 mg oral Daily Cassidy Bhatti [facility] 150 mg at 11/02/19812 ??? camphor-menthol (SARNA) 0.5-0.5 % lotion topical Q6H PRN Cassidy Bhatti MD PhD ??? carvediloL (COREG) tablet 25 mg 25 mg oral BID Tash Villatoro NP 25 mg at 11/02/19812 ??? cefTRIAXone (ROCEPHIN) 1,000 mg/10 mL in sterile water (premix) 1,000 mg 1,000 mg intravenous Q24H [facility] Sultana Sotelo NP Stopped at 11/02/19 0830 ??? cetirizine (ZyrTEC) tablet 10 mg 10 mg oral Daily Cassidy Bhatti MD PhD 10 mg at 11/02/19812 ??? docusate sodium (COLACE) capsule 100 mg 100 mg oral BID Patricia Rice NP 100 mg at 11/02/19812 ??? dronabinoL (MARINOL) capsule 2.5 mg 2.5 mg oral BID Sultana Sotelo NP 2.5 mg at 11/02/19 08 ??? heparin 5,000 unit/mL injection 5,000 Units 5,000 Units subcutaneous Q8H [facility] Kimberly Connor NP 5,000 Units at 11/02/19 1430 ??? hydrALAZINE (APRESOLINE) injection 10 mg 10 mg intravenous Q3H PRN Sultana Sotelo NP 10 mgat 11/01/19 1329 ??? hydroCHLOROthiazide (HYDRODIURIL) tablet 25 mg 25 mg oral Daily Sandy Gabriel, PERINATAL EDUCATOR 25 mg at 11/02/19 0813 ??? lidocaine (LIDODERM) 5 % patch 1 patch 1 patch transdermal Daily Cassidy Bhatti MD PhDStopped at 11/01/19 0854 ??? lisinopriL (PRINIVIL,ZESTRIL) tablet 5 mg 5 mg oral Daily Tash Villatoro, NAKIA 5 mg at 11/02/19 1221 ??? montelukast (SINGULAIR) tablet 10 mg 10 mg oral Nightly Cassidy Bhatti MD PhD 10 mg at11/01/19 2039 ??? oxyCODONE (ROXICODONE) tablet 5 mg 5 mg oral Q4H PRN Sultana Sotelo NP 5 mg at 11/02/19 1430 ??? polyethylene glycol (MIRALAX) packet 17 g 17 g oral Daily Sultana Sotelo NP 17 g at 11/02/19 0821 ??? senna (SENOKOT) tablet 1 tablet 1 tablet oral BID Patricia Rice NP 1 tablet at 11/02/19 0813 ??? sodium chloride 0.9% flush 0.5-20 mL 0.5-20 mL intra-catheter Q8H [facility] Cassidy Bhatti MD PhD 10 mL at 11/02/19 1431 Objective Vitals: 24hr Min/Max: Temp Min: 36.6 ??C (97.8 ??F) Max: 37.1 ??C (98.8 ??F) Pulse Min: 60 Max: 78 BP Min: 101/47 Max: 157/48 Resp Min: 16 Max: 26 SpO2 Min: 93 % Max: 98 % Most Recent : Vitals: 11/02/19 1400 BP: 157/48 Pulse: 70 Resp: 21 Temp: SpO2: 96% I/O last 2 completed shifts: In: 1151.3 [P.O.:920; I.V.:221.3; IV Piggyback:10] Out: 1250 [Urine:1250] I/O this shift: In: 490 [P.O.:480; IV Piggyback:10] Out: 550 [Urine:550] Physical Exam: GENERAL: Awake, alert, oriented x 4; no acute distress. HEENT: Eyes: Pupils equal, round, reactive to light and accommodation. RESPIRATORY: Good respiratory effort. CARDIOVASCULAR: Regular rate and rhythm. GASTROINTESTINAL: No tenderness. Abdomen is nondistended. MUSCULOSKELETAL: Range of motion adequate. Strength and tone equal bilaterally, stable. PULSES: Right radial pulse palpable. INCISIONS: Right neck/chest incision with ecchymosis noted, stable fluid collection. Sternotomy well approximated. Both incisions closed with Dermabond. NEUROLOGICAL: Sensation intact. Lab/Radiology/Diagnostic Review: Laboratory review: Lab results in the last 24 hours: No results found for this or any previous visit (from the past 24 hour(s)). 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 - Coreg 25mg BID, hctz 25 daily, amlodipine 10mg daily, lisinopril 5mg daily. PRN hydral. - Appreciate cardiology recs. - f/u renal doppler to r/o renal artery stenosis. - Q4 hour [place] checks, monitor for headache. # Proteus UTI: - Continue ceftriaxone. - Follow cultures. 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 - Continue aspirin. - Continue PT/OT. # Chronic Neck Pain: - lidocaine patches, marinol (cannabis use at home), PRN oxycodone and acetaminophen. AZZO INSTALLER * Caio Browne MD PhD - 11/02/2019 1:41 PM CST Cardiology Daily Progress Note - General Cardiology Chief complaint: Headaches Interval History: Blood pressure well controlled Patient in chair Objective Vital Signs: 24hr Min/Max: Temp Min: 36.6 ??C (97.8 ??F) Max: 37.1 ??C (98.8 ??F) Pulse Min: 60 Max: 78 BP Min: 101/47 Max: 149/47 Resp Min: 15 Max: 26 SpO2 Min: 93 % Max: 98 % Most Recent: Vitals: 11/02/19 1200 BP: 137/54 Pulse: 74 Resp: 17 Temp: 37.1 ??C (98.8 ??F) SpO2: 98% Intake/Output: Intake/Output Summary (Last 24 hours) at 11/02/2019 1341 Last data filed at 11/02/2019 1225 Gross per 24 hour Intake 930 ml Output 975 ml Net -45 ml Physical Exam: General appearance: no acute distress HEENT: NCAT, MM, anicteric Lungs: CTAB, no w/r/r, non-labored Heart: RRR, S1, S2 normal, no murmur, rub or gallop. JVP not elevated, no LE edema, R chest wall hematoma Abdomen: soft, NT/ND; bowel sounds normal Extremities: extremities normal, warm and well-perfused, equal pulses Skin: warm and dry Neurologic: No abnormal movements, non-focal exam Current Medications: Current Facility-Administered Medications: ??? acetaminophen (TYLENOL) tablet 1,000 mg, 1,000 mg, oral, Q6H PRN, 1,000 mg at 11/02/19605 ??? amLODIPine (NORVASC) tablet 10 mg, 10 mg, oral, Daily, 10 mg at 11/02/19812 ??? aspirin tablet 325 mg, 325 mg, oral, Daily, 325 mg at 11/02/19812 ??? atorvastatin (LIPITOR) tablet 80 mg, 80 mg, oral, Nightly, 80 mg at 11/01/192037 ??? buPROPion XL (WELLBUTRIN XL) 24 hour tablet 150 mg, 150 mg, oral, Daily, 150 mg at 11/02/19812 ??? camphor-menthol (SARNA) 0.5-0.5 % lotion, , topical, Q6H PRN ??? carvediloL (COREG) tablet 25 mg, 25 mg, oral, BID, 25 mg at 11/02/19812 ??? cefTRIAXone (ROCEPHIN) 1,000 mg/10 mL in sterile water (premix) 1,000 mg, 1,000 mg, intravenous, Q24H REID, Stopped at 11/02/19 0830 ??? cetirizine (ZyrTEC) tablet 10 mg, 10 mg, oral, Daily, 10 mg at 11/02/19 0813 ??? docusate sodium (COLACE) capsule 100 mg, 100 mg, oral, BID, 100 mg at 11/02/19812 OR [DISCONTINUED] docusate (COLACE) 10 mg/mL oral liquid 100 mg, 100 mg, feeding tube, BID ??? dronabinoL (MARINOL) capsule 2.5 mg, 2.5 mg, oral, BID, 2.5 mg at 11/02/19 08 ??? heparin 5,000 unit/mL injection 5,000 Units, 5,000 Units, subcutaneous, Q8H REID, 5,000 Units at11/02/19 0606 ??? hydrALAZINE (APRESOLINE) injection 10 mg, 10 mg, intravenous, Q3H PRN, 10 mg at 11/01/19 1329 ??? hydroCHLOROthiazide (HYDRODIURIL) tablet 25 mg, 25 mg, oral, Daily, 25 mg at 11/02/19 0813 ??? lidocaine (LIDODERM) 5 % patch 1 patch, 1 patch, transdermal, Daily, Stopped at 11/01/19 0854 ??? lisinopriL (PRINIVIL,ZESTRIL) tablet 5 mg, 5 mg, oral, Daily, 5 mg at 11/02/19 1221 ??? montelukast (SINGULAIR) tablet 10 mg, 10 mg, oral, Nightly, 10 mg at 11/01/19 2039 ??? ondansetron ODT (ZOFRAN-ODT) disintegrating tablet 4 mg, 4 mg, oral, Q8H PRN ??? oxyCODONE (ROXICODONE) tablet 5 mg, 5 mg, oral, Q4H PRN, 5 mg at 11/02/19 0813 ??? polyethylene glycol (MIRALAX) packet 17 g, 17 g, oral, Daily, 17 g at 11/02/19 0821 ??? senna (SENOKOT) tablet 1 tablet, 1 tablet, oral, BID, 1 tablet at 11/02/19 0813 OR [DISCONTINUED] senna 1.76 mg/mL syrup 8.8 mg, 8.8 mg, feeding tube, BID ??? sodium chloride 0.9% flush 0.5-20 mL, 0.5-20 mL, intra-catheter, Q8H [facility], 10 mL at 11/01/19 1400 ??? sodium chloride 0.9% flush 0.5-20 mL, 0.5-20 mL, intra-catheter, PRN Lab/Radiology/Diagnostic Review: Labs: Recent Labs Lab Units 11/01/19 0237 10/31/19 1207 10/27/19 0041 HEMOGLOBIN g/dL 8.4* 9.1* 8.8* HEMATOCRIT % 25.2* 28.4* 26.6* WBC K/cumm 10.5* 11.2* 6.2 PLATELETS K/cumm 479* 447* 285 Recent Labs Lab Units 11/01/19 0237 SODIUM mmol/L 136 POTASSIUM PLASMA mmol/L 4.2 CHLORIDE mmol/L 103 CO2 mmol/L 23 ANIONGAP mmol/L 10 BUN SERUM mg/dL 11 CREATININE mg/dL 0.76 CALCIUM mg/dL 8.6 Recent Labs Lab Units 10/31/19 1207 APTT sec 34 INR 1.1 Recent Labs Lab Units 10/31/19 1207 TROPONIN I ng/mL <0.03 Recent Labs Lab Units 11/01/19 0237 PH ART 7.46* PCO2 ART mmHg 31* PO2 ART mmHg 78* BASE EXC ART mmol/L -2 Cultures: Lab Results Component Value Date MICROBIOLOGY (.) 11/01/2019 Preliminary Report: Greater than or equal to 100,000 colonies/mL of Gram Negative Bacilli Identification and susceptibility results to follow. MICROBIOLOGY Final Report: Negative 11/01/2019 MICROBIOLOGY Final Report: Negative 10/25/2019 MICROBIOLOGY Final Report: Negative 10/21/2019 MICROBIOLOGY Final Report: Negative 10/21/2019 Assessment/Plan Ms. Saenz is a 73 y.o. female with H/O HTN, ischemic L MCA stroke, vertebrobasilar insufficiencyand S/P bypass of ascending aorta to bilateral carotids, R axillary and aortic arch reconstruction on 10/21 who presents with headache, worsening mass over her R chest wall site and concern for hyperpe rfusion syndrome and was admitted to ICU for hypertension management. General Cardiology was asked to see for hypertension management. Recommendations: Patient is at target blood pressure. Pending renal ultrasound. Will follow results. May add SHAUNA inhibitor or ARB if additional blood pressure control is needed. Will sign off at this time. Please call with questions or concerns. Caio Browne MD PhD [place] 1:41 PM 11/02/19 Cosigned by Cate Ward MD at 11/02/2019 2:24 PM TERRAZZO INSTALLER AZZO INSTALLER AZZO INSTALLER Associated attestation - Cate Ward MD - 11/02/2019 2:24 PM TERRAZZO INSTALLER I have seen and examined the patient on 11/02/19. I agree with the findings and plan of care as documented in the resident's/fellow's note. * Kimberly Connor, NAKIA - 11/01/2019 8:[address] ICU Daily Progress Shifts: NPP Shift Options: 8300 PM 1 Subjective Patient is a 73 y.o. female admitted to the hospital on 10/31/2019 11:35 AM with/following: Right upper chest swelling & recurrent headaches - possible cerebral hyperperfusion syndrome ?? Remote history: 10/21: s/p aortic arch reconstruction with aorta to bilateral carotid graft and aorta to right axillary artery graft Interval History: Cardiology consulted for ongoing BP control recommendations. Agree with continuing current regimen (coreg, amlodipine and HCTZ), weaning clevidipine. If unable to wean clevidipine, recommend adding ACEi/ARB. Also recommend renal doppler to rule out renal artery stenosis. No S/S of cerebral hyperperfusion syndrome. SBP goal liberalized to 130. Ceftriaxone started for UTI. Objective Medications: Scheduled Meds:amLODIPine, 10 mg, oral, Daily aspirin, 325 mg, oral, Daily atorvastatin, 80 mg, oral, Nightly buPROPion XL, 150 mg, oral, Daily carvediloL, 25 mg, oral, BID cefTRIAXone, 1,000 mg, intravenous, Q24H REID cetirizine, 10 mg, oral, Daily docusate sodium, 100 mg, oral, BID dronabinoL, 2.5 mg, oral, BID heparin, 5,000 Units, subcutaneous, Q8H [facility] hydroCHLOROthiazide, 25 mg, oral, Daily lidocaine, 1 patch, transdermal, Daily montelukast, 10 mg, oral, Nightly polyethylene glycol, 17 g, oral, Daily senna, 1 tablet, oral, BID sodium chloride 0.9%, 0.5-20 mL, intra-catheter, Q8H [facility] Continuous Infusions:clevidipine, 1-32 mg/hr, Last Rate: Stopped (11/01/19 1725) Vitals: Temp: [36.6 ??C (97.8 ??F)-37.2 ??C (99 ??F)] 36.6 ??C (97.8 ??F) Pulse: [57-78] 65 BP: (104-140)/(39-92) 104/45 Resp: [15-26] 22 SpO2: [90 %-98 %] 95 % Arterial Line BP: (104-184)/(31-52) 104/36 Fluid balance: No intake/output data recorded. Intake/Output Summary (Last 24 hours) at 11/02/2019 0034 Last data filed at 11/01/2019 1840 Gross per 24 hour Intake 1571.33 ml Output 1375 ml Net 196.33 ml Vent settings: Hemodynamic parameters: PAP: -- CVP: -- PCWP: -- CO: -- CI: -- SVO2: -- Pacemaker Overdrive Pacing: -- Cardiac Rhythm: Normal sinus rhythm (11/01 2199) Pacer Mode: -- Physical exam: Neuro: A/O x 4, MAEW. PERRL. Cardiovascular: RRR, + systolic murmur, periphery warm, palpable peripheral pulses. No edema. Pulmonary: RA. Breath sounds clear bilaterally. Normal effort. GI: abdomen soft, non-distended, non-tender. Normoactive bowel sounds. : voiding Skin: [place], warm, dry. Right upper chest and sternal incisions approximated, open to air. Right upper chest swelling near incision is stable. Minimal pain on palpation. No drainage. Laboratory data: Recent Labs Lab Units 11/01/19 0237 10/31/19 1207 10/27/19 0041 WBC K/cumm 10.5* 11.2* 6.2 HEMOGLOBIN g/dL 8.4* 9.1* 8.8* HEMATOCRIT % 25.2* 28.4* 26.6* PLATELETS K/cumm 479* 447* 285 Recent Labs Lab Units 11/01/19 0237 10/31/19 1207 10/27/19 0041 SODIUM mmol/L 136 138 133* POTASSIUM PLASMA mmol/L 4.2 4.8 3.9 CHLORIDE mmol/L 103 104 100 CO2 mmol/L 23 25 25 BUN SERUM mg/dL 11 11 17 CREATININE mg/dL 0.76 0.70 0.83 CALCIUM mg/dL 8.6 9.1 9.0 Recent Labs Lab Units 10/31/191206 PROTIME (PT) sec 12.1 INR 1.1 APTT sec 34 Recent Labs Lab Units 11/01/19 023 PH ART 7.46* PCO2 ART mmHg 31* PO2 ART mmHg 78* BASE EXC ART mmol/L -2 Radiology/Diagnostic Review No new imaging. 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 Neurology consulted during ED visit and recommended b/p control since pt was hypertensive on arrival with sbp up to 180's (baseline 150- 160 per patient) Assessment & Plan Neurology signed off and recommends b/p control [...] other signs of cerebral hyperperfusion. Slept well. UTI (urinary tract infection) Assessment & Plan Pt with foul smelling urine on admit. Clean catch UA positive sent this am and positive ( present on admission) pt endorsing frequency and foul smelling urine that developed over the weekend. 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 Interval History: No further headaches since admission with blood pressure control on clevidipine gtt and oral anti hypertensive regimen resumed. Objective Medications: Scheduled Meds:amLODIPine, 10 mg, oral, Daily aspirin, 325 mg, oral, Daily atorvastatin, 80 mg, oral, Nightly buPROPion XL, 150 mg, oral, Daily carvediloL, 25 mg, oral, BID cefTRIAXone, 1,000 mg, intravenous, Q24H [facility]ID cetirizine, 10 mg, oral, Daily docusate sodium, 100 mg, oral, BID heparin, 5,000 Units, subcutaneous, Q8H [facility] hydroCHLOROthiazide, 25 mg, oral, Daily lidocaine, 1 patch, transdermal, Daily montelukast, 10 mg, oral, Nightly polyethylene glycol, 17 g, oral, Daily senna, 1 tablet, oral, BID sodium chloride 0.9%, 0.5-20 mL, intra-catheter, Q8H [facility] Continuous Infusions:clevidipine, 1-32 mg/hr, Last Rate: 26 mg/hr (11/01/19 1155) Vitals: See Flow sheet Intake/Output Summary (Last 24 hours) at 11/01/2019 1233 Last data filed at 11/01/2019 1210 Gross per 24 hour Intake 1347.14 ml Output 1850 ml Net -502.86 ml Vent settings: Hemodynamic parameters: PAP: -- CVP: -- PCWP: -- CO: -- CI: -- SVO2: -- Pacemaker Overdrive Pacing: -- Cardiac Rhythm: Normal sinus rhythm (11/01 1200) Pacer Mode: -- Physical exam: Neuro: awake, alert, oriented x 4, CAM (-), moves all extremities, denies any headache, 5/5 strength Cardiac: RRR, S1 S2, periphery warm, pulses palpable distally Pulm: lungs clear throughout, non productive cough GI: abdomen round, soft, nontender, + bowel sounds :odorous urine, endorses frequency Skin: Right upper chest incision from axillary bypass with hematoma surrounding incision ( stable in size), suture removed from RU chest from old SARAI site. Midline sternal incision healed over. Chronic right shoulder pain Lines: SARAI Garcia Lab/Radiology/Diagnostic Review: Recent Labs Lab Units 11/01/19 0237 10/31/19 1207 10/27/19 0041 WBC K/cumm 10.5* 11.2* 6.2 HEMOGLOBIN g/dL 8.4* 9.1* 8.8* HEMATOCRIT % 25.2* 28.4* 26.6* PLATELETS K/cumm 479* 447* 285 Recent Labs Lab Units 11/01/19 0237 SODIUM mmol/L 136 POTASSIUM PLASMA mmol/L 4.2 CHLORIDE mmol/L 103 CO2 mmol/L 23 ANIONGAP mmol/L 10 GLUCOSE mg/dL 155 BUN SERUM mg/dL 11 CREATININE mg/dL 0.76 CALCIUM mg/dL 8.6 Recent Labs Lab Units 10/31/19 1207 APTT sec 34 INR 1.1 CXR personally reviewed-> no xray to review I have personally reviewed the telemetry strips over the past 12h. I have personally reviewed the above labs and microbiology results. I have personally reviewed the radiology exams in the past 24h. 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 Neurology consulted during ED visit and recommended b/p control since pt was hypertensive on arrival with sbp up to 180's (baseline 150- 160 per patient) Assessment & Plan Neurology signed off and recommends b/p control [...] reports baseline sbp 150-160 and was on coreg/hc tz/norvasc at home since discharge last week. - prn tylenol for headache and prn oxycodone for chronic right shoulder pain - consult cardiology for b/p management as b/p should be optimized for at least the next month withplans to Re- assess at that time. - q 2 hour neuro checks, call vascular if any changes in neuro exam Acute pain Assessment & Plan Pt reports mild right scapular pain since [...] and prn oxycodone added for breakthrough pain UTI (urinary tract infection) Assessment & Plan Pt with foul smelling urine on admit. Clean catch UA positive sent this am and positive ( present on admission) pt endorsing frequency and foul smelling urine that developed over the weekend. Ceftriaxone started 11/01 - f/u urine culture and determine duration of treatment ( pt has listed allergies to sulfa/pcn) Hypertension Assessment & Plan SBP goal < 130 in setting of [...] reports baseline sbp 150-160 and was on coreg/hc tz/norvasc at home since discharge last week. - prn tylenol for headache and prn oxycodone for chronic right shoulder pain - consult cardiology for b/p management as b/p should be optimized for at least the next month withplans to Re- assess at that time. clevidipine gtt being weaned off with addition of prn hydralazine 10mg q4h prn, home hctz resumed and currently on coreg 25mg bid. If blood pressure an issue, can increase coreg dose to 37.5mg bid or50 mg bid. Cardiology following and agree with [...] dose marinol. See pain for details . Sultana Sotelo NP AZZO INSTALLER * Bindu Ayala RN - 11/01/2019 12:20 PM CST 11/01/19 1216 Information Information Obtained From Patient Referral Data Referral Source Self referral Referral Reason Discharge Planning Prior to Admission Primary Caregiver Self Support System Spouse/Significant Other Support system contact info (name, phone, availablity) Juice Wayne (spouse) [phone] Home Care Services Yes Type of Home Care Services Nurse visit Home care service name and phone number [facility] from last admission. Resumption referral sent. Durable Medical Equipment None Living Arrangements Spouse/significant other Type of Residence Private residence Potential Discharge Needs Home Health USP Anticipated discharge level of care (Will await PT/OT eval for dispo needs) Pt/Family agrees with Anticipated Level of Care Yes Patient expects to be discharged to: Private residence Dialysis No Behavioral Health Services No Chart reviewed for medical necessity. Patient admitted for treatment of: Wound check; Hematoma of left chest wall Information obtained from: patient Insurance verified as: [facility] and [facility] PCP verified as: Abbe Nails MD Transportation: per spouse Admission Source: non-healthcare facility Additional Information/Options Discussed: Verified demographic information from the face sheet withthe patient. Explained role and purpose of case reviewer. clinical resource manager to continue to follow for planning and referrals as needed. Discussed mobile pharmacy. Patient was open with [email or web address] from last admission, but was unable to begin Nursing with this company before being readmitted. CM spoke with admissions for [place] who said that they are able to resume care with this patient when she is discharged. [employer] P: [phone] F: Patient/Family agreeable with discharge plan. Will await PT/OT evaluation for dispo recommendation.Patient independent prior to admission. Fuel Management Handler will continue to follow for discharge needs. Based on a comprehensive family assessment, assistance [...] for d/c planning and referrals as needed. AZZO INSTALLER AZZO INSTALLER * Mario Leiva MD - 11/01/2019 7:58 AM CST Vascular Surgery Daily Progress Patient Name/MRN: Suma Saenz [id number] Treatment Team: Vascular Surgery Attending: Zachary Giron MD Today's Date: 11/01/2019 Room/Bed: [id number] Admit Date: 10/31/2019 Code Status: Full Code Subjective Chief complaint: Headache Events Over Last 24 Hours: Headache resolved. Fluid collection at right shoulder stable. Allergies Allergen Reactions ??? Naproxen Rash ??? Nsaids (Non-Steroidal Anti-Inflammatory Drug) Hives ??? Penicillins Rash ??? Sulfa (Sulfonamide Antibiotics) Rash Current Facility-Administered Medications Medication Dose Route Frequency Provider Last Rate Last Dose ??? acetaminophen (TYLENOL) tablet 1,000 mg 1,000 mg oral Q6H PRN Kimberly Connor NP 1,000mg at 11/01/19 0634 ??? amLODIPine (NORVASC) tablet 10 mg 10 mg oral Daily Kimberly Connor NP ??? aspirin tablet 325 mg 325 mg oral Daily Cassidy Bhatti MD PhD ??? atorvastatin (LIPITOR) tablet 80 mg 80 mg oral Nightly Cassidy Bhatti MD PhD 80 mg at 10/31/191958 ??? buPROPion XL (WELLBUTRIN XL) 24 hour tablet 150 mg 150 mg oral Daily Cassidy Bhatti, [facility] 150 mg at 10/31/192038 ??? camphor-menthol (SARNA) 0.5-0.5 % lotion topical Q6H PRN Cassidy Bhatti MD PhD ??? carvediloL (COREG) tablet 25 mg 25 mg oral BID Kimberly Connor NP ??? cefTRIAXone (ROCEPHIN) 1,000 mg/10 mL in sterile water (premix) 1,000 mg 1,000 mg intravenous Q24H [facility] Sultana Sotelo NP ??? cetirizine (ZyrTEC) tablet 10 mg 10 mg oral Daily Cassiyd Bhatti MD PhD 10 mg at 10/31/191957 ??? clevidipine (CLEVIPREX) 50 mg/100 mL (0.5 mg/mL) (premix) 1-32 mg/hr intravenous Titrated Patricia Dara Rice NP 64 mL/hr at 11/01/19 0700 32 mg/hr at 11/01/19 0700 ??? docusate sodium (COLACE) capsule 100 mg 100 mg oral BID Patricia Rice NP 100 mg at 10/31/191957 ??? heparin 5,000 unit/mL injection 5,000 Units 5,000 Units subcutaneous Q8H [facility] Kimberly Connor NP 5,000 Units at 11/01/19 0634 ??? lidocaine (LIDODERM) 5 % patch 1 patch 1 patch transdermal Daily Cassidy Bhatti MD PhD1 patch at 10/31/191956 ??? montelukast (SINGULAIR) tablet 10 mg 10 mg oral Nightly Cassidy Bhatti MD PhD 10 mg at10/31/191956 ??? ondansetron ODT (ZOFRAN-ODT) disintegrating tablet 4 mg 4 mg oral Q8H PRN Cassidy Bhatti MD PhD ??? polyethylene glycol (MIRALAX) packet 17 g 17 g feeding tube Daily Patricia Rice NP ??? senna (SENOKOT) tablet 1 tablet 1 tablet oral BID Patricia Rice NP 1 tablet at 10/31/191957 ??? sodium chloride 0.9% flush 0.5-20 mL 0.5-20 mL intra-catheter Q8H [facility] Cassidy Bhatti MD PhD 10 mL at 11/01/1934 ??? sodium chloride 0.9% flush 0.5-20 mL 0.5-20 mL intra-catheter PRN Cassidy Bhatti MD PhD Objective Vitals: 24hr Min/Max: Temp Min: 36.6 ??C (97.9 ??F) Max: 37.3 ??C (99.1 ??F) Pulse Min: 57 Max: 77 BP Min: 123/56 Max: 187/56 Resp Min: 10 Max: 26 SpO2 Min: 90 % Max: 100 % Most Recent : Vitals: 11/01/19 0700 BP: Pulse: 64 Resp: 21 Temp: SpO2: 96% I/O last 2 completed shifts: In: 1195.8 [P.O.:240; I.V.:955.8] Out: 1375 [Urine:1375] I/O this shift: In: 61.3 [I.V.:61.3] Out: - Physical Exam: General appearance: appears stated age Constitutional: No acute distress Eyes: EOMI, anicteric Cardiovascular: normal rate, regular rhythm Right Radial: palp Right Femoral: palp Right DP: palp Right PT: palp Left Radial: palp Left Femoral: palp Left DP: palp Left PT: palp Respiratory: non-labored breathing Skin: no ulceration, right shoulder fluid collection stable GI: Soft, non-tender; non-distended. No pusatile abdominal mass Muskuloskeletal: Extremities MAEW Neuro: Alert and oriented x4, non-focal Lab/Radiology/Diagnostic Review: Laboratory review: Chemistry BMP Lab Results Component Value Date GLUCOSE 155 11/01/2019 CALCIUM 8.6 11/01/2019 SODIUM 136 11/01/2019 POTASSIUM 4.2 11/01/2019 CO2 23 11/01/2019 BUNSER 11 11/01/2019 CREATININE 0.76 11/01/2019 and CBC: Lab Results Component Value Date WBC 10.5 (H) 11/01/2019 RBC 2.63 (L) 11/01/2019 HGB 8.4 (L) 11/01/2019 HCT 25.2 (L) 11/01/2019 MCV 95.8 11/01/2019 MCH 31.9 11/01/2019 MCHC 33.3 11/01/2019 RDWCV 15.1 (H) 11/01/2019 RDWSD 51.7 (H) 11/01/2019 MPV 8.8 (L) 11/01/2019 NRBCABS 0.00 11/01/2019 Assessment/Plan Suma Saenz is a 73 y.o. female who was admitted for headache in setting of recent revascularization of carotid. - Neurology consulted for hyperperfusion - Aggressive BP/HR management to SBP <120 - No intervention on fluid collection Cosigned by Zachary Giron MD at 11/01/2019 11:19 PM TERRAZZO INSTALLER AZZO INSTALLER AZZO INSTALLER Associated attestation - Zachary Giron MD - 11/01/2019 11:19 PM TERRAZZO INSTALLER I have seen and examined the patient on 11/01/19. I agree with the findings and plan of care with the following modifications:I saw her in the intensive care unit. Her headache is resolved with intravenous antihypertensives. The cardiology service has been consulted to aid in transition to a more aggressive oral regimen. The right infraclavicular hematoma remains soft and stable, with palpable radial pulses bilaterally.. documented in this encounter H&P Notes * Kimberly Connor, NAKIA - 10/31/2019 9:[address] ICU History and Physical Shifts: NPP Shift Options: 8300 PM 1 Subjective Patient is a 73 y.o. 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 Pt denies reports no drainage from the incision and the incision remains intact without erythema. No new pain or numbness down the R arm, but she does report some right scapular pain that has been ongoing since she woke up after surgery. CT with a 10 x 4.5 cm fluid collection near the right pectoralis minor muscle; no active extravasation or pseudoaneurysm. She has now been transferred from the ED to 83 CTICU for BP and HR control.She arrives with SBP near 200 on max dose nicardipine. Past Medical History: Diagnosis Date ??? Anxiety [...] HOME MEDICATIONS : aspirin 325 mg tablet atorvastatin (LIPITOR) 80 mg tablet buPROPion XL (WELLBUTRIN XL) 150 mg 24 hr tablet camphor-menthol (SARNA) lotion carvediloL (COREG) 12.5 mg tablet cetirizine (ZyrTEC) 10 mg tablet doxycycline (ADOXA) 50 mg tablet hydroCHLOROthiazide (HYDRODIURIL) 25 mg tablet lidocaine (LIDODERM) 5 % montelukast (SINGULAIR) 10 mg tablet ondansetron ODT (ZOFRAN-ODT) 4 mg disintegrating tablet oxyCODONE (ROXICODONE) 5 mg immediate release tablet senna-docusate (Senna Plus) 8.6-50 mg Allergies Allergen Reactions ??? Naproxen [...] (Added by TW Conv) Review of systems: Constitutional: Negative for chills, fatigue and fever. HENT: Negative for congestion, ear pain, hearing loss, sinus pain, sore throat and trouble swallowing. Eyes: Negative for pain and visual disturbance. Respiratory: Negative for chest tightness. Negative for cough, shortness of breath and wheezing. Cardiovascular: Negative for chest pain. Negative for palpitations and leg swelling. Gastrointestinal: Negative for abdominal distention, abdominal pain, blood in stool, diarrhea, nausea and vomiting. Positive for consitpation Musculoskeletal: Positive for right scapular pain. Skin: Negative for rash. Positive for swelling primarily superior to right upper chest incision. Neurological: Positive for recent headaches (currently denies [place]). Negative for dizziness, weakness, light-headedness and numbness. Hematological: Does not bruise/bleed easily. Psychiatric/Behavioral: Negative for behavioral problems and confusion. Objective Medications: Scheduled Meds:acetaminophen, 1,000 mg, oral, Q6H REID aspirin, 325 mg, oral, Daily atorvastatin, 80 mg, oral, Nightly buPROPion XL, 150 mg, oral, Daily carvediloL, 12.5 mg, oral, BID cetirizine, 10 mg, oral, Daily docusate sodium, 100 mg, oral, BID Or docusate, 100 mg, feeding tube, BID heparin, 5,000 Units, subcutaneous, Q8H REID lidocaine, 1 patch, transdermal, Daily montelukast, 10 mg, oral, Nightly polyethylene glycol, 17 g, feeding tube, Daily senna, 1 tablet, oral, BID Or senna, 8.8 mg, feeding tube, BID sodium chloride 0.9%, 0.5-20 mL, intra-catheter, Q8H [facility] Continuous Infusions:clevidipine, 1-32 mg/hr, Last Rate: 30 mg/hr (10/31/192134) Vitals: Temp: [36.6 ??C (97.9 ??F)-37.1 ??C (98.8 ??F)] 37.1 ??C (98.8 ??F) Pulse: [60-77] 66 BP: (123-187)/(48-56) 187/56 Resp: [10-26] 26 SpO2: [90 %-100 %] 93 % Arterial Line BP: (144-212)/(39-61) 144/39 Fluid balnace: I/O this shift: In: 421.6 [I.V.:421.6] Out: 600 [Urine:600] Intake/Output Summary (Last 24 hours) at 10/31/20192153 Last data filed at 10/31/20192099 Gross per 24 hour Intake 421.64 ml Output 600 ml Net -178.36 ml Vent settings: Hemodynamic parameters: PAP: -- CVP: -- PCWP: -- CO: -- CI: -- SVO2: -- Pacemaker Overdrive Pacing: -- Cardiac Rhythm: Normal sinus rhythm (10/31 2099) Pacer Mode: -- Physical exam: Neuro: A/O x 4, MAEW. PERRL. Cardiovascular: RRR, + systolic murmur, periphery warm, palpable peripheral pulses. No edema. Pulmonary: RA. Breath sounds clear bilaterally. Normal effort. GI: abdomen soft, non-distended, non-tender. Normoactive bowel sounds. : voiding Skin: [place], warm, dry. Right upper chest and sternal incisions approximated, open to air. Large area of swelling primarily superior to right upper chest incision. No drainage. Minimal pain on palpation. Laboratory data: Recent Labs Lab Units 10/31/19 1207 10/27/19 0041 10/25/19 2319 WBC K/cumm 11.2* 6.2 5.9 HEMOGLOBIN g/dL 9.1* 8.8* 8.3* HEMATOCRIT % 28.4* 26.6* 24.3* PLATELETS K/cumm 447* 285 240 Recent Labs Lab Units 10/31/19 1207 10/27/19 0041 10/25/19 2319 SODIUM mmol/L 138 133* 131* POTASSIUM PLASMA mmol/L 4.8 3.9 4.0 CHLORIDE mmol/L 104 100 96* CO2 mmol/L 25 25 26 BUN SERUM mg/dL 11 17 21 CREATININE mg/dL 0.70 0.83 0.79 CALCIUM mg/dL 9.1 9.0 9.2 Recent Labs Lab Units 10/31/19 1207 PROTIME (PT) sec 12.1 INR 1.1 APTT sec 34 Radiology/Diagnostic Review CXR: Bibasilar atelectasis. CT: 1. 10 x 4.5 cm fluid collection the right pectoralis minor muscle likely representing an evolving hematoma. No active extravasation or pseudoaneurysm. 2. Aorta-right axillary artery and aorta-bilateral common carotid arteries bypass grafts with adjacent small amount of fluid, post-operative. The bypass grafts are patent. 3. Right 1st rib fracture. 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 Pt denies reports no drainage from the incision and the incision remains intact without erythema. No new pain or numbness down the R arm, but she does report some right scapular pain that has been ongoing since she woke up aftersurgery. CT with a 10 x 4.5 cm fluid collection near the right pectoralis minor muscle; no active extravasation or pseudoaneurysm. Assessment & Plan Could be hematoma vs seroma. Minimal pain. [...] dose of 12.5 mg coreg and increased scheduleddosing to 25 mg bid. Will also amlodipine 10 mg daily to start in am. Acute pain Assessment & Plan Pt reports mild right scapular pain since surgery. Also reports mild pain associated with chest swelling. -lidocaine patch to back -prn tylenol UTI (urinary tract infection) Assessment & Plan Pt reports burning with urination and RN reports odor associate with urine. Possible UTI. -obtain clean catch urine sample for UA Cosigned by Paul Angulo MD at 11/04/2019 2:50 PM TERRAZZO INSTALLER AZZO INSTALLER AZZO INSTALLER documented in this encounter Procedure Notes * Tahs Villatoro NP - 11/02/2019 5:12 PM CSTAssociated Order(s): Critical Care Post-Procedure Diagnose(s): Acute pain Critical Care Performed by: Tash Villatoro NP Authorized by: Tash Villatoro NP CRITICAL CARE: Team: 83 CTICU Shift: AM Level of Billing: Subsequent Hospital Visit Level 3 My time spent with this patient was 50 minutes: Critical Provider Statement: I have seen and examined the patient on this day of service. I have reviewed and confirmed the history, physical exam, laboratory, and radiographic data as documented in the ICU note. I have reviewed and discussed my treatment plan with the patient's team and other medical/publicity consultant staff. This time was in addition to and separate from care provided by other practitioners on this day of service. I spent time reviewing and interpreting data from bedside monitors, laboratory results, and imaging Tash Villatoro AGACNP-BC Cosigned by Paul Angulo MD at 11/04/2019 2:53 PM TERRAZZO INSTALLER AZZO INSTALLER AZZO INSTALLER AZZO INSTALLER * Kimberly Connor NP - 11/01/2019 11:08 PM CSTAssociated Order(s): Critical Care Post-Procedure Diagnose(s): Hematoma Critical Care Performed by: Kimberly Connor NP Authorized by: Kimberly Connor NP CRITICAL CARE: Team: 83 CTICU Shift: PM Level of Billing: Subsequent Hospital Visit Level 3 My time spent with this patient was 45 minutes: Critical Provider Statement: I have seen and examined the patient on this day of service. I have reviewed and confirmed the history, physical exam, laboratory, and radiographic data as documented in the ICU note. I have reviewed and discussed my treatment plan with the patient's team and other medical/publicity consultant staff. This time was in addition to and separate from care provided by other practitioners on this day of service. 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 I have reviewed and confirmed the history, physical exam, laboratory and radiologic data as documented in thesigned ICU note. I have reviewed and discussed my treatment plan with the ICU team and other medical/publicity consultant staff, making frequent assessments and decisions [...] life-threatening deterioration of the following conditions: Acute pain/acute postoperative pain Cerebral hyperperfusion syndrome Hypertension This time was spent by me doing the following: Serial bedside patient exams Acute pain control and Frequent neurologic exams clevipipine I spent time reviewing and interpreting data from bedside monitors, laboratory results, and imaging, I spent time discussing the management of this critically ill patient with consultants and the medical staff and I spent time documenting in the medical record Cosigned by Paul Angulo MD at 11/04/2019 2:52 PM TERRAZZO INSTALLER AZZO INSTALLER AZZO INSTALLER * Kimberly Connor NP - 10/31/2019 11:12 PM CSTAssociated Order(s): Critical Care Post-Procedure Diagnose(s): Hematoma Critical Care Performed by: Kimberly Connor NP Authorized by: Kimberly Connor NP CRITICAL CARE: Team: 83 CTICU Shift: PM Level of Billing: Critical Care My time spent with this patient was 130 minutes: Critical Provider Statement: I have seen and examined the patient on this day of service. I have reviewed and confirmed the history, physical exam, laboratory and radiologic data as documented in thesigned ICU note. I have reviewed and discussed my treatment plan with the ICU team and other medical/publicity consultant staff, making frequent assessments and decisions [...] life-threatening deterioration of the following conditions: Acute pain/acute postoperative pain Cerebral hyperperfusion syndrome UTI This time was spent by me doing the following: Acute pain control and Frequent neurologic exams Initiation/active titration of vasoactive medications Review of prior or current culture/gram stain results I spent time reviewing and interpreting data from bedside monitors, laboratory results, and imaging, I spent time documenting in the medical record and I spent time discussing the management of this critically ill patient with consultants and the medical staff Cosigned by Paul Angulo MD at 11/04/2019 2:48 PM TERRAZZO INSTALLER AZZO INSTALLER AZZO INSTALLER documented in this encounter Consult Notes * Sisi Denis NP - 11/01/2019 1:08 PM CST Cardiology Consult Note - General Cardiology Patient Name: Suma Saenz : 1945 Date of Service: 11/01/19 Requesting Attending: Zachary Giron MD Reason for Consult: hypertension management Chief Complaint: Headaches HPI Suma Saenz is a 73 y.o. female with a history of HTN, L MCA stroke, vertebrobasilar insufficiency and S/P aortic arch reconstruction with bypass from ascending aorta to bilateral common carotidarteries and to R axillary artery on 10/21 presenting with headaches and concern for hyperperfusion s yndrome. Pt was admitted to ICU for hypertension management. General Cardiology has been consulted for hypertension management. Pt is on carvedilol and HCTZ at home for HTN. Since admission to ICU, pt's carvedilol was increased to 25 mg BID last night and remains on clevidipine gtt. SBP goals are <130 per neurology and vascular recommendations. Pt denies CP, SOB or syncope. Pt notes headaches h ave improved since admission. Of note, preoperative LHC last admission revealed significantly elevated LVEDP and nonobstructive CAD. Review of Systems: Review of systems as per HPI and, otherwise all other systems are negative. PMHX: has a past medical history of Anxiety, Back pain, Carotid stenosis, Degenerative disc diseaseat L5-S1 level, Depression, Ischemic embolic stroke (CMS/HCC) (07/04/2016), Orthostatic hypotension, and Syncope (10/18/2019). PSHX: has a past surgical history that includes Cardiac catheterization (10/18/2019); Carpal tunnelrelease (11/13/2005); Cataract extraction, extracapsular w/ intraocular lens implant (Bilateral, 2018); and Appendectomy (2010). Family Hx: family history includes Heart disease in her father and mother; Stroke in her father. Social Hx: reports that she has quit smoking. Her smoking use included cigarettes. She has never used smokeless tobacco. She reports current alcohol use. She reports that she does not use drugs. Allergies: Allergies Allergen Reactions ??? Naproxen Rash ??? Nsaids (Non-Steroidal Anti-Inflammatory Drug) Hives ??? Penicillins Rash ??? Sulfa (Sulfonamide Antibiotics) Rash Home Medications: HOME MEDICATIONS : aspirin 325 mg tablet atorvastatin (LIPITOR) 80 mg tablet buPROPion XL (WELLBUTRIN XL) 150 mg 24 hr tablet camphor-menthol (SARNA) lotion carvediloL (COREG) 12.5 mg tablet cetirizine (ZyrTEC) 10 mg tablet doxycycline (ADOXA) 50 mg tablet hydroCHLOROthiazide (HYDRODIURIL) 25 mg tablet lidocaine (LIDODERM) 5 % montelukast (SINGULAIR) 10 mg tablet ondansetron ODT (ZOFRAN-ODT) 4 mg disintegrating tablet oxyCODONE (ROXICODONE) 5 mg immediate release tablet senna-docusate (Senna Plus) 8.6-50 mg Current Medications: amLODIPine, 10 mg, oral, Daily aspirin, 325 mg, oral, Daily atorvastatin, 80 mg, oral, Nightly buPROPion XL, 150 mg, oral, Daily carvediloL, 25 mg, oral, BID cefTRIAXone, 1,000 mg, intravenous, Q24H REID cetirizine, 10 mg, oral, Daily docusate sodium, 100 mg, oral, BID heparin, 5,000 Units, subcutaneous, Q8H REID hydroCHLOROthiazide, 25 mg, oral, Daily lidocaine, 1 patch, transdermal, Daily montelukast, 10 mg, oral, Nightly polyethylene glycol, 17 g, oral, Daily senna, 1 tablet, oral, BID sodium chloride 0.9%, 0.5-20 mL, intra-catheter, Q8H REID clevidipine, 1-32 mg/hr, Last Rate: 26 mg/hr (11/01/19 1155) Objective Vital Signs: 24hr Min/Max: Temp Min: 36.6 ??C (97.9 ??F) Max: 37.3 ??C (99.1 ??F) Pulse Min: 57 Max: 77 BP Min: 158/50 Max: 187/56 Resp Min: 10 Max: 26 SpO2 Min: 90 % Max: 100 % Most Recent: Vitals: 11/01/19 1200 BP: Pulse: 67 Resp: 26 Temp: 37 ??C (98.6 ??F) SpO2: 95% Intake/Output: Intake/Output Summary (Last 24 hours) at 11/01/2019 1308 Last data filed at 11/01/2019 1210 Gross per 24 hour Intake 1347.14 ml Output 1850 ml Net -502.86 ml Physical Exam: General appearance: no acute distress HEENT: NCAT, MMM, anicteric Lungs: CTAB, no w/r/r, non-labored Heart: RRR, S1, S2 normal, no murmur, rub or gallop. JVP not elevated, no LE edema Abdomen: soft, NT/ND; bowel sounds normal Extremities: extremities normal, warm and well-perfused, equal pulses Skin: warm and dry Neurologic: No abnormal movements, non-focal exam Psych: Normal mood and affect Lab/Radiology/Diagnostic Review: Labs: Recent Labs Lab Units 11/01/19 0237 10/31/19 1207 10/27/19 0041 10/25/19 2319 HEMOGLOBIN g/dL 8.4* 9.1* 8.8* 8.3* HEMATOCRIT % 25.2* 28.4* 26.6* 24.3* WBC K/cumm 10.5* 11.2* 6.2 5.9 PLATELETS K/cumm 479* 447* 285 240 Recent Labs Lab Units 11/01/19 0237 10/25/19 2319 SODIUM mmol/L 136 < > 131* POTASSIUM PLASMA mmol/L 4.2 < > 4.0 CHLORIDE mmol/L 103 < > 96* CO2 mmol/L 23 < > 26 ANIONGAP mmol/L 10 < > 9 BUN SERUM mg/dL 11 < > 21 CREATININE mg/dL 0.76 < > 0.79 CALCIUM mg/dL 8.6 < > 9.2 MAGNESIUM mg/dL -- -- 2.3 < > = values in this interval not displayed. Recent Labs Lab Units 10/31/19 1207 APTT sec 34 INR 1.1 Recent Labs Lab Units 10/31/19 1207 TROPONIN I ng/mL <0.03 Recent Labs Lab Units 11/01/19 0237 PH ART 7.46* PCO2 ART mmHg 31* PO2 ART mmHg 78* BASE EXC ART mmol/L -2 Cultures: Lab Results Component Value Date MICROBIOLOGY Final Report: Negative 10/25/2019 MICROBIOLOGY Final Report: Negative 10/21/2019 MICROBIOLOGY Final Report: Negative 10/21/2019 I personally reviewed the Telemetry images with the following findings: SB-SR I personally reviewed the ECG images with the following findings: SR NSST TTE: 2016 Upper-normal LV cavity size, mild concentric LVH, normal LV systolic fxn. LVEF 60%. Normal RV size and systolic fxn. Normal atria size. Impaired diastolic relaxation with normal filling pressures. Unable to estimate PASP due to lack of adequate TR jet. Normal IVC and aortic root size. No pericardial effusion. Stress test: N/A Cardiac catheterization: 10/2018 ANGIOGRAPHY ?? LEFT CORONARY SYSTEM: Large left dominant left coronary system. There is [...] the circumflex marginal system. RIGHT CORONARY SYSTEM: Small nondominant right coronary artery supplying small right ventricular branches and a small inferior branch. There is no significant obstructive disease within the right coronary system. ?? DIAGNOSTIC IMPRESSIONS 1. Severe systemic arterial hypertension. 2. Severe elevation of LVEDP (198/28). 3. No significant obstructive coronary disease. CT Assessment/Plan Ms. Saenz is a 73 y.o. female with H/O HTN, ischemic L MCA stroke, vertebrobasilar insufficiencyand S/P bypass of ascending aorta to bilateral carotids, R axillary and aortic arch reconstruction on 10/21 who presents with headache, worsening mass over her R chest wall site and concern for hyperpe rfusion syndrome and was admitted to ICU for hypertension management. General Cardiology was asked to see for hypertension management. HTN- SBP goal <130 per neuro and vascular teams recommendations; cont carvedilol and amlodipine (started this AM), plans to restart HCTZ today per ICU team; could consider ACEi/ARB if needs additional antihypertensives and if creatinine remains stable; attempt to wean clevidipine gtt as able; recommend renal doppler to rule out renal artery stenosis Hematoma of R chest wall-management per vascular surgery and ICU teams D/W ICU team We appreciate the ability to be involved in this patient's care. If after 5PM or on weekends, please page the economic development specialist development consultant with any questions or concerns. Sisi Denis NP Nurse Practitioner 1:08 PM 11/01/19 Cosigned by Cate Ward MD at 11/01/2019 1:56 PM TERRAZZO INSTALLER AZZO INSTALLER AZZO INSTALLER Associated attestation - Cate Ward MD - 11/01/2019 1:56 PM TERRAZZO INSTALLER I have seen and examined the patient on 11/01/19 in conjunction with the non- physician provider. History: Denies [place]PLE[place], anginal CP, SOB. Reports HTN diagnosed in her 20s (uncertain if family history of HTN). Well controlled until recently. Was on ramipril at some point- stopped for uncertain reasonpossibly due to low Bps (denies cough, increased K, Cr). Unaware of prior evaluations for secondaryHTN Physical Exam: Vitals: 11/01/19 1200 BP: Pulse: 67 Resp: 26 Temp: 37 ??C (98.6 ??F) SpO2: 95% VS reviewed in [facility] General: comfortable, no acute distress HEENT: sclera anicteric, moist mucus membranes Neck: JVP flat, supple Chest: clear to auscultation bilaterally, healing incisions on chest CV: normal S1 and S2, regular, no murmurs, no gallops, no rubs Abd: soft NT, ND, bowel sounds present Ext: warm, no clubbing, cyanosis or edema Neuro: alert and oriented, nonfocal Psych: normal mood and affect Skin: no rashes on exposed areas Lab/Radiology/Diagnostics Review: Lab Results Component Value Date GLUCOSE 155 11/01/2019 CALCIUM 8.6 11/01/2019 SODIUM 136 11/01/2019 POTASSIUM 4.2 11/01/2019 CO2 23 11/01/2019 CHLORIDE 103 11/01/2019 BUNSER 11 11/01/2019 CREATININE 0.76 11/01/2019 Cardiac catheterization: no angiographically significant CAD CT chest with atherosclerosis reported Neck CTA and Mrs: no FMD reported, atherosclerosis reported Intraop JASON: normal LV/RVSF, mild to mod AR Assessment/Plan -HTN: agree with coreg, amlodipine, and HCTZ initiation. Wean clevidipine gtt. Evaluate for renal artery stenosis with duplex given known vascular disease elsewhere. 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 * Stephanie Salter MD - 10/31/2019 4:10 PM CSTAssociated Order(s): IP CONSULT TO NEUROLOGY Images from the original note were not included. Neurology Consult Note Visit date: 10/31/2019 Patient: Suma Saenz Neurology Initial Consult Note Requesting Provider or Service: Zachary Giron MD Reason for Consult: Headaches Subjective HISTORY OF PRESENT ILLNESS Suma Saenz is a 73 y.o. female with a history of of vertebrobasilar insufficiency and stenosis s/p recent aorto to R axillary and R and L CCA bypasses on 10/21 who presented to the ED today withshortness of breath and worsening mass over her sternal wound site and Neurology is consulted for he adaches. The pt reports that after being discharged on Thursday, 3 days ago, she noticed that she had a headache. She reports onset of a pulsatile pain with maximal intensity reached over a 5-6 minute period and encompassed her entire head. She reports that the headache resolved within 15 minutes after using ice packs. She had a total of 3 headaches on Thursday, all were the same. She had no episodes on Thursday. She had 2 episodes Thursday evening and were same characteristics in nature. Her took herblood pressure during one of her headache episodes and her systolic blood pressure was in the 160s.She denies any visual changes, nausea, vomiting, aura. Today, the pt presented to the ED with shortness of breath and worsening mass over her sternal wound site. She had a CTA of her chest with a likely evolving hematoma and vascular surgery was consulted and is being admitted to the ICU. Her vitals in the ED is notable for systolic BPs in the 190s andis on a nicardipine gtt for improved blood pressure control. Given her recent vascular surgery procedures, the Vascular surgeon requested a neurology consult to assess for hyperperfusion headaches. She had a CTA of head and neck with no acute intracranial abnormality. Currently, Ms. Saenz denies current headaches. She reports of some shortness of breath. She denies vision changes, light headedness, aura, N/V/D, constipation, abdominal pain, lower extremity edema, numbness, tingling. PAST MEDICAL & SURGICAL HISTORY Past Medical History: Diagnosis Date ??? [...] EXTRACAPSULAR W/ INTRAOCULAR LENS IMPLANTATION Bilateral 2018 OUTPATIENT MEDICATIONS HOME MEDICATIONS : aspirin 325 mg tablet atorvastatin (LIPITOR) 80 mg tablet buPROPion XL (WELLBUTRIN XL) 150 mg 24 hr tablet camphor-menthol (SARNA) lotion carvediloL (COREG) 12.5 mg tablet cetirizine (ZyrTEC) 10 mg tablet doxycycline (ADOXA) 50 mg tablet hydroCHLOROthiazide (HYDRODIURIL) 25 mg tablet lidocaine (LIDODERM) 5 % montelukast (SINGULAIR) 10 mg tablet ondansetron ODT (ZOFRAN-ODT) 4 mg disintegrating tablet oxyCODONE (ROXICODONE) 5 mg immediate release tablet senna-docusate (Senna Plus) 8.6-50 mg SOCIAL HX: Social History Socioeconomic History ??? Marital status: Spouse name: Not on file ??? Number of children: Not on file ??? Years of education: Not on file ??? Highest education level: Not on file Occupational History ??? Not on file Social Needs ??? Financial resource strain: Not on file ??? Food insecurity Worry: Not on file Inability: Not on file ??? Transportation needs Medical: Not on file Non-medical: Not on file Tobacco Use ??? Smoking status: Former Smoker Types: Cigarettes ??? Smokeless tobacco: Never Used Substance and Sexual Activity ??? Alcohol use: Yes ??? Drug use: Never ??? Sexual activity: Defer Lifestyle ??? Physical activity Days per week: Not on file Minutes per session: Not on file ??? Stress: Not on file Relationships ??? Social connections Talks on phone: Not on file Gets together: Not on file Attends pentecostal service: Not on file Active member of club or organization: Not on file Attends meetings of clubs or organizations: Not on file Relationship status: Not on file ??? Intimate partner violence Fear of current or ex partner: Not on file Emotionally abused: Not on file Physically abused: Not on file Forced sexual activity: Not on file Other Topics Concern ??? Not on file Social History Narrative Occasional alcohol use : (Added by JAMAAL Conv) FAMILY HX: Family History Problem Relation Age of Onset ??? Stroke Father Stroke; ??? Heart disease Father Family history of cardiac disorder - (Added by JAMAAL Conv) ??? Heart disease Mother Heart disease; /Family history of cardiac disorder - (Added by JAMAAL Conv) REVIEW OF SYSTEMS A complete review of systems was performed and is negative, except as indicated in the HPI. Objective Inpatient Medications Scheduled Medications: Scheduled Medications Medication Dose Route Frequency Continuous Medications: Current Facility-Administered Medications Medication Dose Route Frequency Last Dose ??? niCARdipine 0.5-2.5 mcg/kg/min intravenous Titrated PRN Medications: PHYSICAL EXAM Vitals: 24 hr Min/Max: Temp Min: 36.7 ??C (98.1 ??F) Max: 36.7 ??C (98.1 ??F) Pulse Min: 60 Max: 65 BP Min: 123/56 Max: 165/48 Resp Min: 14 Max: 21 SpO2 Min: 95 % Max: 99 % Most Recent: Vitals: 10/31/19 1530 BP: 165/48 Pulse: 63 Resp: 21 Temp: SpO2: 97% Height: 170.2 cm (5' 7 ) Weight: 88.5 kg (195 lb) BMI (Calculated): 30.5 No intake/output data recorded. No intake/output data recorded. GENERAL EXAMINATION CONSTITUTIONAL: The patient is well appearing/well nourished, pleasant, comfortable. HEENT & NECK: The head is normocephalic and atraumatic. Conjunctiva are clear without injection; the oropharynx is clear. CARDIOVASCULAR: Extremities are warm and well perfused; there is no peripheral edema. RESPIRATORY: Normal WOB on RA NEUROLOGIC EXAM: Mental Status:The patient is alert and oriented to person, place, time and reason for visit. Attention is intact. Language: The patient has fluent speech and follows commands. Cranial Nerves II-XII: Visual corcoran are full. PERRL. Extraocular movements are full and without nystagmus. V1-3 is intactto light touch bilaterally. Face is symmetric, hearing is intact bilaterally and palate is up-goingbilaterally. There is no dysarthria. Motor: Strength is 5/5 throughout. Muscle tone and bulk are normal. There is no pronator drift. Finger tapping is normal bilaterally. Reflexes: Reflexes are 2+ at the biceps, brachioradialis and patellae. Absent Rivera. Sensation: Light touch is normal in all four extremities. Coordination: Finger to nose is normal bilaterally. Ambulation: Defer gait exam Lab/Radiology/Diagnostic Review: Laboratory Data Hematology Lab History Some values may be hidden. Unless noted otherwise, only the newest values recorded on each date aredisplayed. Labs - Hematology Latest Ref Range 10/24/19 10/25/19 10/27/19 10/31/19 WBC 3.8 - 9.9 K/cumm 10.0 (A) 5.9 6.2 11.2 (A) Total Hb, POC 11.9 - 15.5 g/dL 8.0 (A) 8.3 (A) 8.8 (A) 9.1 (A) Hct 35.6 - 45.5 % 23.0 (A) 24.3 (A) 26.6 (A) 28.4 (A) Plt 150 - 400 K/cumm 151 240 285 447 (A) Neutrophil abs 1.7 - 6.5 K/cumm 7.9 (A) 3.7 2.9 8.5 (A) Some values recorded on this date have been omitted. Some abnormal values recorded on this date have been omitted. (A) Abnormal value Chem/LFT Lab History Some values may be hidden. Unless noted otherwise, only the newest values recorded on each date aredisplayed. Labs-Chem/LFT Latest Ref Range 10/24/19 10/25/19 10/27/19 10/31/19 Sodium 135 - 145 mmol/L 129 (A) 131 (A) 133 (A) 138 Creatinine 0.60 - 1.10 mg/dL 1.09 0.79 0.83 0.70 CrCl- Actual Body Weight (Cockcroft-Gault) 66.2 91.3 86.9 102.9 Some values recorded on this date have been omitted. Some abnormal values recorded on this date have been omitted. (A) Abnormal value Additional (if available): Lab Results Component Value Date HGBA1C 5.9 04/02/2016 , No results found for: LDLCALC, No results found for: TSH Neuro Imaging: CTA Head/Neck - 10/31/2019 IMPRESSION: 1. No acute intracranial abnormality. 2. Interval vascular surgery with grafting of the common carotid and right subclavian arteries to the aortic arch. 3. 7 cm seroma in the right chest wall that compresses the right subclavian vein. There is no distal opacification in right subclavian vein, which could reflect occlusion versus thrombosis. Recommend clinical correlation. Ultrasound could be obtained for further evaluation of the arm vessels. Cta Chest W Wo Contrast Result Date: 10/31/2019 1. 10 x 4.5 cm fluid collection the right pectoralis minor muscle likely representing an evolving hematoma. No active extravasation or pseudoaneurysm. 2. Aorta-right axillary artery and aorta-bilateral common carotid arteries bypass grafts with adjacent small amount of fluid, post-operative. The bypass grafts are patent. 3. Right 1st rib fracture. Dictated by: Brad Ness M.D. Xr Chest 1 Vw Portable Result Date: 10/31/2019 Status post median sternotomy. Enlarged cardiac and mediastinal silhouette is unchanged. There is likely a small amount of right pleural fluid. There is mild bibasilar atelectasis which appears improved on left compared to prior. No pneumothorax. Electronically signed by: Sivakumar Saeed M.D. Assessment /Plan ASSESSMENT AND PLAN Ms. Saenz is a 73 y.o. female with with a history of of vertebrobasilar insufficiency and stenosis s/p recent aorto to R axillary and R and L CCA bypasses on 10/21 who presented to the ED today with shortness of breath and worsening mass over her sternal wound site and Neurology is consulted for h penny. Headaches: Given the nature of her headaches as well as these are new since her recent vascular surgery procedures with a bypass of the R and L CCA, this could represent a hyperperfusion headache. She remains hypertensive currently and now has an arterial line and is on a nicardipine gtt for blood pressure control. She is being admitted to the ICU for closer BP monitoring. She had a CTA head/neck that was reassuring without any ipsilateral edema. At this point, would not recommend further imaging as would not foreign exchange trader, which would be BP control. Would recommend improved, tight BP control for treatment of hyperperfusion headache. Recommendations: -Continue tight BP control for a normotensive blood pressure Discussed with the [facility] attending, Dr. Null. Thank you for this consult. Neurology Please do not hesitate to contact us with any questions or concerns. Note authored by: Juwan Ann MD PGY-3 Internal Medicine Resident Physician Neurology Consult Call Back: [phone] (senior phone) Cosigned by David Null MD at 11/01/2019 4:43 PM TERRAZZO INSTALLER AZZO INSTALLER AZZO INSTALLER AZZO INSTALLER AZZO INSTALLER AZZO INSTALLER AZZO INSTALLER Associated attestation - David Null MD - 11/01/2019 4:43 PM TERRAZZO INSTALLER I have seen and examined the patient on 11/01/19. I agree with the findings and plan of care as documented in the resident's/fellow's note. Of note, Ms. Saenz reports no headaches now for [address] head and CTA head images reviewed with no evidence of edema. No exam findings concerning for PRES. Reasonable to target normotension given how well she is doing, with obvious goal of oral antihypertensives. * Cassidy Bhatti MD PhD - 10/31/2019 12:20 PM CSTAssociated Order(s): IP CONSULT TO VASCULAR SURGERY Vascular Surgery Consultation Patient Name/MRN: Suma Saenz [id number] Treatment Team: Vascular Surgery- Reason for Consult: hematoma at surgical site Attending: Maria Dolores Norton MD Today's Date: 10/31/2019 Admitting Service: Emergency Admitting location: [facility] ED2-31/ED2-31 Admit Date: 10/31/2019 Code Status: Prior CC: Chief Complaint Patient presents with ??? Wound Check Subjective HPI: Patient is a 73 y.o. female with h/o vertebrobasilar insufficiency and stenosis vs occlusions of her great vessels now presents with swelling over her R chest s/p recent aorta to R axillary and R andL CCA bypasses 10/21. Patient was discharged from the hospital on 10/27 and reportedly started to notice increased swelling of her R chest last week Thursday. States that it came on all of a sudden, and has perhaps decreased in size since then. Patient states that she has been applying ice to the area.Denies any drainage from the incision, and incision remains intact without erythema. No new pain ornumbness down the R arm, but she does endorse some R scapular pain that has been ongoing since she woke up after surgery. Patient otherwise has been doing well from a post-operative standpoint. She denies F/C, is ambulating, and tolerating PO intake. With regard to patient's recent admission and surgery, she underwent bypass from aorta to R axillary artery w/ PTFE and R and L CCAs with Dacron. Her post- operative course was relatively uncomplicated and was notable for BP control and anemia. She was stable for discharge on 10/27. Past Medical History: Diagnosis Date ??? Anxiety ??? Back pain ??? Carotid stenosis ??? Degenerative disc disease at L5-S1 level ??? Depression ??? Ischemic embolic stroke ([facility]) 07/04/2016 Cerebrovascular accident (CVA) due to [...] EXTRACAPSULAR W/ INTRAOCULAR LENS IMPLANTATION Bilateral 2018 Allergies Allergen Reactions ??? Naproxen Rash ??? Nsaids (Non-Steroidal Anti-Inflammatory Drug) Hives ??? Penicillins Rash ??? Sulfa (Sulfonamide Antibiotics) Rash (Not in a hospital admission) Current Facility-Administered Medications Medication Dose Route Frequency Provider Last Rate Last Dose ??? morphine injection 4 mg 4 mg intravenous Once Zachary Harp MD Current Outpatient Medications Medication Sig Dispense Refill ??? aspirin 325 mg tablet take 1 tablet by oral route every day 0 0 ??? atorvastatin (LIPITOR) 80 mg tablet take 1 tablet by oral route every day 0 0 ??? buPROPion XL (WELLBUTRIN XL) 150 mg 24 hr tablet take 1 tablet by oral route 2 times every day 0 0 ??? camphor-menthol (SARNA) lotion Apply topically every 6 (six) hours as needed for irritation, itching or dry skin Avoid incision sites 222 mL ??? carvediloL (COREG) 12.5 mg tablet Take 1 tablet (12.5 mg total) by mouth 2 (two) times a day 60tablet 11 ??? cetirizine (ZyrTEC) 10 mg tablet take 1 tablet by oral route every day 0 0 ??? doxycycline (ADOXA) 50 mg tablet Take 50 mg by mouth 2 (two) times a day. ??? hydroCHLOROthiazide (HYDRODIURIL) 25 mg tablet Take 25 mg by mouth daily ? ? lidocaine (LIDODERM) 5 % Place 1 patch on the skin daily Remove & discard patch within 12 hours or as directed by . 30 patch 0 ??? montelukast (SINGULAIR) 10 mg tablet take [...] as needed for pain 30 tablet 0 ??? senna-docusate (Senna Plus) 8.6-50 mg Take 1-2 tablets by mouth 2 (two) times a day as needed for constipation 20 tablet 0 Family History Problem Relation Age of Onset [...] Abbe Nails MD Primary Care Physician number: [phone] Review of Systems: General ROS: negative for fevers or chills Ophthalmic ROS: negative for blurry vision Hematological and Lymphatic ROS: negative for easy brusing Respiratory ROS: no cough, +intermittent SOB Cardiovascular ROS: no chest pain or dyspnea on exertion Gastrointestinal ROS: no abdominal pain, change in bowel habits Genito-Urinary ROS: no dysuria Musculoskeletal ROS: +R scapular pain, chronic but has worsened since surgery. Neurological ROS: no TIA or stroke symptoms Dermatological ROS: negative for rashes Objective Vitals: Arrival Vitals [10/31/19 1110] Temp 36.7 ??C (98.1 ??F) Pulse 60 Resp 20 BP 123/56 SpO2 98 % Temp src Oral Heart Rate Source Patient Position BP Location FiO2 (%) Most Recent : Vitals: 10/31/19 1145 BP: 145/51 Pulse: 61 Resp: 14 Temp: SpO2: 95% No intake/output data recorded. No intake/output data recorded. Physical exam: General appearance: appears stated age Constitutional: No acute distress Eyes: EOMI, anicteric Cardiovascular: regular rate, regular rhythm Right Radial: palpable Left Radial: palpable Chest: Sternotomy and R axillary incisions C/D/I. Swollen lump beneath R axillary incision approximately 8x8 cm, soft, no associated drainage or erythema, does not extend into R axilla. Photo in media. Respiratory: non-labored breathing Skin: without ulceration GI: Soft, non-tender; non-distended. No pusatile abdominal mass Muskuloskeletal: Extremities warm Neuro: Alert and oriented x4, non-focal Lab/Radiology/Diagnostic Review: Laboratory review: reviewed the laboratory result(s) Cr. 0.7, WBC 11.2, Hb 9.1. Assessment /Plan Patient is a 73 y.o. 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 Swelling has been present for approximately 4 days, and does not demonstrate any concerning features. - Will get triple phase CT head, neck, and chest with non-con, arterial, and delayed phases. - Vascular will plan on admission for observation if patient not needing urgent trip to the OR for repair. - Vascular surgery will continue to follow. Please call [phone] with vascular consult questions 30/03. Cosigned by Yg Lieberman MD at 10/31/2019 3:02 PM TERRAZZO INSTALLER AZZO INSTALLER AZZO INSTALLER Associated attestation - Yg Lieberman MD - 10/31/2019 3:02 PM TERRAZZO INSTALLER I have seen and examined the patient on 10/31/19. I agree with the findings and plan of care as documented in the resident's/fellow's note. documented in this encounter ED Notes * Zachary Harp MD - 10/31/2019 11:55 AM CST HPI Chief Complaint Patient presents with ??? Wound Check HPI 73-year-old female, history of hypertension, ischemic left MCA stroke with no residual deficits, aortic valve insufficiency, mitral valve insufficiency, coronary artery disease, stenosis of the brachiocephalic artery status post complicated cardiovascular surgery on 10/21/2019 that included a aortic arch reconstruction with multiple branch graft cortex placed along the aorta, right axillary artery, bilateral common carotid arteries, bypass of the ascending aorta to right axillary artery, bypassthe ascending or to the right common and left common carotid arteries by both Cardiac surgery and vascular surgery presents with hematoma to right chest wall underneath her incision site. Patient wasdischarged on , noted that the hematoma developed overnight on Thursday. It is neither grown or strength since she 1st noticed it. She reports that it is painful particularly with movement of her right shoulder. She is endorsing some orthopnea since the mass formed. She has otherwise been asym ptomatic. She denies numbness weakness tingling, loss of sensation, loss of pulse in her right hand. She denies any focal neurologic deficits, headaches, neck pain. Review of systems otherwise negative, no fevers or chills Social history significant for occasional marijuana use, denies alcohol or tobacco. No E cigarettes. Denies recent travel Family history significant for hypertension Patient History Patient Active Problem List Diagnosis Date Noted ??? Status post carotid surgery 10/23/2019 ??? Acute hypoxemic respiratory failure ([facility]) 10/23/2019 ??? Chronic back pain complicated by acute surgical pain 10/21/2019 ??? Acute blood loss anemia 10/21/2019 ??? Syncope and collapse 04/05/2019 ??? Labile hypertension 10/17/2016 Class: Chronic ??? Stenosis of brachiocephalic artery ([facility]) 07/04/2016 Class: Temporary ??? History of ischemic left MCA stroke 05/14/2016 Class: Chronic ??? Stenosis of carotid artery 01/25/2016 Class: Chronic ??? Dizziness 12/03/2015 Class: Temporary ??? Orthostatic hypotension 12/03/2015 Class: Temporary ??? Aortic valve insufficiency 12/03/2015 Class: Temporary ??? Mitral valve insufficiency 04/23/2015 Class: Temporary ??? Adiposity 02/26/2015 Class: Temporary ??? Benign hypertension 02/26/2015 Class: Temporary ??? Heart murmur 02/26/2015 Class: Temporary ??? Non-specific colitis 02/26/2015 Class: Temporary ??? Tobacco dependence in remission 02/26/2015 Class: Temporary ??? Carotid artery disease ([facility]) 02/26/2015 Class: Temporary ??? Dyslipidemia 02/26/2015 Class: Temporary Past Medical History: Diagnosis Date ??? Anxiety ??? Back pain ??? Carotid stenosis ??? Degenerative disc disease at L5-S1 level ??? Depression ??? Ischemic embolic stroke ([facility]) 07/04/2016 Cerebrovascular accident (CVA) due to [...] EXTRACAPSULAR W/ INTRAOCULAR LENS IMPLANTATION Bilateral 2018 Family History Problem Relation Age of Onset [...] alcohol use : (Added by TW Conv) Review of Systems Review of Systems All other systems reviewed and are negative. Physical Exam ED Triage Vitals [10/31/19 1110] Temp Pulse Resp BP SpO2 36.7 ??C (98.1 ??F) 60 20 123/56 98 % Temp src Heart Rate Source Patient Position BP Location FiO2 (%) Oral -- -- -- -- Physical Exam General: No acute distress, patient appears comfortable, responding appropriately. Normal and stable vital signs Head and neck: normocephalic, atraumatic, no C spine TTP or decreased ROM Eyes: EOMI, PERRL, no nystagmus Oropharynx: no pharyngeal erythema, tonsillar exudates Cardiac: Regular rate and rhythm. Systolic murmur heard best at right sternal border without radiation. No rubs or gallops. 2+ distal pulses, symmetric in all 4 extremities including bilateral upper extremities. No edema noted Pulmonary: Clear breath sounds bilaterally, no respiratory distress GI: Soft, non-tender, non-distended. No rebound tenderness or voluntary guarding. Normal bowel sounds. No palpable organomegaly. Musculoskeletal: No obvious deformities or TTP Skin: Roughly 10 x 10 mass over right subclavicular incision site, no wound dehiscence, purulence drainage or surrounding erythema. Sternotomy site appears well with no evidence of dehiscence or infection. No other skin abnormalities Neurological: CN 2-12 intact. Normal motor function in bilateral UE and bilateral LE. Sensation grossly intact. Psychiatric: appropriate mood and affect MDM MDM 73-year-old female with recent complicated cardiac and vascular surgery as described per HPI presents with mass and swelling over right subclavicular incision site. She has had no other symptoms besides the mass and some shortness of breath. Denies fevers or chills, numbness weakness tingling, headaches. On exam patient has a 10 x 10 cm mass over her right incision site, otherwise no acute physical exam abnormalities. Concern for surgical site hematoma versus fistula development versus graft failure. Patient will require cardiac and vascular surgery consult, preop labs. Will likely require CT a of the chest, head neck, will defer ordering until I speak with surgical subspecialist. Will perform bedside ultrasound to evaluate non pulsatile mass. Attending Summary of Care ED Course as of Oct 31 1511 Time: 10/31 1145 Comment: Attending summary of care: Patient is a 73 year old f with history HTN and Stenosis of right subclavian artery, innominate artery, and left common carotid artery sp Partial sternotomy, Bypass from ascending aorta to right axillary artery with 6 mm PTFE, and Bypass from ascending aorta to right common carotid artery and left common carotid artery with 8 mm and 7 mm Dacron grafts on 10/21, here wth right shoulder pain and swelling over the right upper chest incision that progressively expanded since discharge with shoulder pain and headache, no right hand swelling, pain, tingling, or weakness. Patient states that she can barely move her right shoulder without significant pain, no lightheadedness or dizziness. Endorses ch est discomfort likely post-op pain, SOB and orthopnea/PND. Exam with elderly f, in apparent distress due to pain and SOB, PERRL, eomi, appears pale, right upper chest [id number] swelling overlying the incision non-pulsatile, with scattered ecchymoses on the anterior chest with healing sternotomy incision, CTAB, RRR, abdomen soft, extremities well-perfused. Specifically right hand with bounding pulse with no paresthesia, motor intact. Plan: basic labs, T&S, vascular/CT surgery consults, will likely need CTA of the chest. By: Maria Dolores Norton MD Time: 10/31 1220 Comment: Spoke with Cardiac surgery, said that since hematoma appears to be over incision site doneby vascular surgery they have no further input. They will remain peripherally involved if we have any further concerns or questions By: Zachary Harp MD Time: 10/31 1320 Comment: Stroke negative, BNP unremarkable. BMP normal. CBC with anemia, leukocytosis By: Zachary Harp MD Time: 10/31 1321 Comment: Status post median sternotomy. Enlarged cardiac and mediastinal silhouette is unchanged. ?? There is likely a small amount of right pleural fluid. There is mild bibasilar atelectasis which appears improved on left compared to prior. ?? No pneumothorax. By: Zachary Harp MD Time: 10/31 1508 Comment: Spoke with vascular, would like patient admitted to an ICU, they will touch base with 56 ICU. By: Zachary Harp MD Hematoma Zachary Harp MD Resident 10/31/19 1512 Cosigned by Maria Dolores Altamirano MD at 10/31/2019 6:44 PM TERRAZZO INSTALLER AZZO INSTALLER AZZO INSTALLER Associated attestation - Maria Dolores Radford MD - 10/31/2019 6:44 PM TERRAZZO INSTALLER I have seen and examined the patient on 10/31/2019 . I agree with the findings and plan of care as documented in the resident's note. * Stephanie Damon RN - 10/31/2019 11:35 AM CST Bed: ED2-31 Expected date: 10/31/19 Expected time: 8:54 AM Means of arrival: Unknown Comments: Stephanie Damon RN 10/31/19 1135 AZZO INSTALLER * Emma Maxwell RN - 10/31/2019 11:12 AM CST Pt comes to ED after having wound from CABG done on 10/21 and released from hospital on 10/27. Pt hasbaseball size lump to right upper chest. Incision well approximated, has clear drainage coming fromsite. Pt denies fever but having chills. AZZO INSTALLER documented in this encounter Miscellaneous Notes * Plan of Care - Daron Hill RN - 11/04/2019 12:15 PM CST Goals: Clinical Goals for the Shift: Monitor incision sites, monitor BP, pain management, sleep Summary: patient is discharging this afternoon to home with a follow up with home health. Further changes in patient condition have been discussed with the patient and when to contact the physician. AZZO INSTALLER * Plan of Care - Grisel Edward RN - 11/04/2019 4:51 AM CST Problem: Activity: Goal: Mobility will improve Outcome: [...] improve to fullest extent possible Outcome: Progressing Problem: Lack of Knowledge: Goal: Ability to state ways to decrease the risk of falls will improve Outcome: Progressing Problem: Safety: Goal: Will remain free from falls Outcome: Progressing Goal: Will remain free from injury from falls Outcome: Progressing Goal: Will remain free from falls and injury in home environment Outcome: Progressing Problem: Health Behavior: Goal: Understanding of discharge needs will improve Outcome: Progressing Goals: Pt aaox4, calm and cooperative, sitting in chair at bedside shift report. Pt c/o pain to incisionalsites with relief from prn pain medications per emar. Incision sites c/d/i. Hydralazine IV administered x1 for SBP >130. Vascular resident notified after recheck SBP >130, no new med orders, requests RN to recheck in an hour. Recheck SBP <130. Pt denies [place]/dizziness. Pt sleeping at this time, will continue to monitor. AZZO INSTALLER * Plan of Care - Shira Gabriel OT - 11/03/2019 3:56 PM CST Problem: Grooming Goal: STG - Patient will complete grooming Description: In standing at sink with mod I. Outcome: Completed Problem: Toileting Goal: STG - Patient will complete toileting tasks with Description: Mod I. Outcome: Completed Problem: Transfers Goal: STG - Patient will perform toilet transfer Description: To toilet in bathroom with mod I. Outcome: Completed AZZO INSTALLER * Plan of Care - Johnny Peterson RN - 11/03/2019 7:10 AM CST Goals: SBP<130, monitor BP, OOB in chair Summary: Problem: Activity: Goal: Mobility will improve Outcome: [...] improve to fullest extent possible Outcome: Progressing Problem: Lack of Knowledge: Goal: Ability to state ways to decrease the risk of falls will improve Outcome: Progressing Problem: Safety: Goal: Will remain free from falls Outcome: Progressing Goal: Will remain free from injury from falls Outcome: Progressing Goal: Will remain free from falls and injury in home environment Outcome: Progressing Problem: Health Behavior: Goal: Understanding of discharge needs will improve Outcome: Progressing AZZO INSTALLER * Plan of Care - Kenia Dominguez RN - 11/03/2019 5:51 AM CST Goals: Problem: Activity: Goal: Mobility will improve Outcome: [...] improve to fullest extent possible Outcome: Progressing Problem: Lack of Knowledge: Goal: Ability to state ways to decrease the risk of falls will improve Outcome: Progressing Problem: Safety: Goal: Will remain free from falls Outcome: Progressing Goal: Will remain free from injury from falls Outcome: Progressing Goal: Will remain free from falls and injury in home environment Outcome: Progressing Problem: Health Behavior: Goal: Understanding of discharge needs will improve Outcome: Progressing Clinical Goals for the Shift: VSS, SBP <130, assess for changes in chest swelling, manage pain levels, remain free from falls Summary:VSS, SBP <130, assess for changes in chest swelling, manage pain levels, remain free from falls AZZO INSTALLER * Assessment & Plan Note - Tash Villatoro NP - 11/02/2019 5:00 PM TERRAZZO INSTALLER Associated Problem(s): Hematoma of chest wall, right, initial encounter Could be hematoma vs seroma. No plan [...] Heparin daily -Cardiac diet -Antihypertensives as above AZZO INSTALLER * Assessment & Plan Note - Tash Villatoro NP - 11/02/2019 4:53 PM TERRAZZO INSTALLER Associated Problem(s): UTI (urinary tract infection) Pt with foul smelling urine upon admission and clean catch UA positive for nitrates ( present on admission). She was started on Ceftriaxone 1 gram Q 24 on 11/01 and was reflexed to culture which came back as + gram negative bacilli and speciated to Proteus Mirabilis. WBC 10.5 (11.2) - Ceftriaxone 1 gram Q 24 for 7-10 days. AZZO INSTALLER * Assessment & Plan Note - Tash Villatoro NP - 11/02/2019 4:47 PM TERRAZZO INSTALLER Associated Problem(s): Hypertension SBP goal < 130 in setting of [...] for renal artery stenosis. 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 Neurology signed off and recommends BP control [...] US today to r/o renal artery stenosis AZZO INSTALLER AZZO INSTALLER AZZO INSTALLER * Assessment & Plan Note - Tash Villatoro NP - 11/02/2019 3:29 PM TERRAZZO INSTALLER Associated Problem(s): Acute pain Patient complaining of right scapular pain since [...] tylenol and PRN oxycodone for breakthrough pain AZZO INSTALLER * Plan of Care - Johnny Peterson RN - 11/02/2019 3:00 PM CST Goals: Clinical Goals for the Shift: hemodynamically stable Summary: Problem: Activity: Goal: Mobility will improve Outcome: [...] improve to fullest extent possible Outcome: Progressing Problem: Lack of Knowledge: Goal: Ability to state ways to decrease the risk of falls will improve Outcome: Progressing Problem: Safety: Goal: Will remain free from falls Outcome: Progressing Goal: Will remain free from injury from falls Outcome: Progressing Goal: Will remain free from falls and injury in home environment Outcome: Progressing Problem: Health Behavior: Goal: Understanding of discharge needs will improve Outcome: Progressing AZZO INSTALLER * Plan of Care - Bindu Ayala RN - 11/02/2019 11:44 AM TERRAZZO INSTALLER Per MD notes: Patient not stable to discharge from the hospital. Impression: Ceftriaxone started for foul smelling urine. q2 neuro checks continue. Blood pressure and headaches better controlled. Referrals: Resumption referral sent to [facility]. Support: Family Transportation: Family ADD: Greater than 1 week Problem: Establish a safe discharge Goal: Implement a safe discharge with family support. Case Management will follow for planning and referrals as needed. If needed, please contact For emergency needs from 4:31pm-7:59am, please call the cash sales audit clerk . For weekend/holiday needs from 8am-430pm, please call the Weekend Fuel Management Handler . AZZO INSTALLER * Subjective & Objective - Tash Villatoro NP - 11/02/2019 9:[address] ICU Daily Progress Shifts: NPP Shift Options: 8300 AM 1 Subjective Patient is a 73 y.o. female admitted to the hospital on 10/31/2019 11:35 AM with/following: Right upper chest swelling & recurrent headaches??- possible cerebral hyperperfusion syndrome ?? Remote history: 10/21:??s/p aortic arch reconstruction with aorta to bilateral carotid graft and aorta to right axillary artery graft Interval History: Yesterday, Clevidipine turned off around 1500 and cuff pressures have remained < 130 overnight. She had no complaints of headaches overnight, just some right scapular pain which is chronic for her. UA sent yesterday morning and Ceftriaxone was started 11/01 for UTI which has not speciated this AM. Afebrile. No pressor support. Objective Medications: Scheduled Meds:amLODIPine, 10 mg, oral, Daily aspirin, 325 mg, oral, Daily atorvastatin, 80 mg, oral, Nightly buPROPion XL, 150 mg, oral, Daily carvediloL, 25 mg, oral, BID cefTRIAXone, 1,000 mg, intravenous, Q24H REID cetirizine, 10 mg, oral, Daily docusate sodium, 100 mg, oral, BID dronabinoL, 2.5 mg, oral, BID heparin, 5,000 Units, subcutaneous, Q8H REID hydroCHLOROthiazide, 25 mg, oral, Daily lidocaine, 1 patch, transdermal, Daily montelukast, 10 mg, oral, Nightly polyethylene glycol, 17 g, oral, Daily senna, 1 tablet, oral, BID sodium chloride 0.9%, 0.5-20 mL, intra-catheter, Q8H REID Vitals: Temp: [36.6 ??C (97.8 ??F)-37.1 ??C (98.8 ??F)] 37 ??C (98.6 ??F) Pulse: [61-78] 77 BP: (104-149)/(39-92) 127/43 Resp: [15-26] 16 SpO2: [90 %-98 %] 96 % Arterial Line BP: (84-184)/(35-55) 164/51 Fluid balance: I/O this shift: In: 240 [P.O.:240] Out: 200 [Urine:200] Intake/Output Summary (Last 24 hours) at 11/02/2019 0926 Last data filed at 11/02/2019 0800 Gross per 24 hour Intake 1000 ml Output 1100 ml Net -100 ml Hemodynamic parameters: PAP: -- CVP: -- PCWP: -- CO: -- CI: -- SVO2: -- Pacemaker Overdrive Pacing: -- Cardiac Rhythm: Normal sinus rhythm (11/02 08) Pacer Mode: -- Physical exam: Neuro: Alert, oriented, able to follow simple commands, PERRL 2mm, CAM(-). Denies headache Cardiovascular: S1 S2, RRR, periphery warm with palpable pulses, no significant edema Pulmonary: On room air. Breath sounds clear to auscultation bilaterally, normal respiratory rate and effort GI: Abdomen soft, non-distended, bowel sounds hypoactive. : Voids Skin: Right upper chest incision well approximated with underlying hematoma and ecchymosis, withoutwarmth or erythema. Midline sternal incision well approximated and healed. Lines: L radial freeman with dressings clean, dry, intact. PIV Laboratory data: Recent Labs Lab Units 11/01/19 0237 10/31/19 1207 10/27/19 0041 WBC K/cumm 10.5* 11.2* 6.2 HEMOGLOBIN g/dL 8.4* 9.1* 8.8* HEMATOCRIT % 25.2* 28.4* 26.6* PLATELETS K/cumm 479* 447* 285 Recent Labs Lab Units 11/01/19 0237 10/31/19 1207 10/27/19 0041 SODIUM mmol/L 136 138 133* POTASSIUM PLASMA mmol/L 4.2 4.8 3.9 CHLORIDE mmol/L 103 104 100 CO2 mmol/L 23 25 25 BUN SERUM mg/dL 11 11 17 CREATININE mg/dL 0.76 0.70 0.83 CALCIUM mg/dL 8.6 9.1 9.0 Recent Labs Lab Units 10/31/19 1207 PROTIME (PT) sec 12.1 INR 1.1 APTT sec 34 Recent Labs Lab Units 11/01/19 0237 PH ART 7.46* PCO2 ART mmHg 31* PO2 ART mmHg 78* BASE EXC ART mmol/L -2 Radiology/Diagnostic Review No PM xray or AM labs. AZZO INSTALLER AZZO INSTALLER * Plan of Care - Emmie Rodarte RN - 11/02/2019 6:19 AM CST Goals: Clinical Goals for the Shift: Stable hemodynamics, sleep hygiene, q2 neuro checks Problem: Activity: Goal: Mobility will improve Outcome: Progressing Problem: Lack of Knowledge: Goal: Understanding of ways to prevent future skin breakdown will improve Outcome: Progressing Goal: Ability to identify appropriate dietary choices will improve Outcome: Progressing Problem: Nutritional: Goal: Dietary intake will improve Outcome: Progressing Goal: Ability to maintain a balanced intake and output will improve Outcome: Progressing Summary: Neuro exam remains stable. NIBP WDL. Slept comfortably for much of night. AZZO INSTALLER * Assessment & Plan Note - Kimberly Connor NP - 11/02/2019 5:07 AM TERRAZZO INSTALLER Associated Problem(s): UTI (urinary tract infection) Pt with foul smelling urine on admit. Clean catch UA positive sent this am and positive ( present on admission) pt endorsing frequency and foul smelling urine that developed over the weekend. 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 Slept well. AZZO INSTALLER AZZO INSTALLER * Subjective & Objective - Kimberly Connor NP - 11/02/2019 12:[address] ICU Daily Progress Shifts: NPP Shift Options: 8300 PM 1 Subjective Patient is a 73 y.o. female admitted to the hospital on 10/31/2019 11:35 AM with/following: Right upper chest swelling & recurrent headaches - possible cerebral hyperperfusion syndrome ?? Remote history: 10/21: s/p aortic arch reconstruction with aorta to bilateral carotid graft and aorta to right axillary artery graft Interval History: Cardiology consulted for ongoing BP control recommendations. Agree with continuing current regimen (coreg, amlodipine and HCTZ), weaning clevidipine. If unable to wean clevidipine, recommend adding ACEi/ARB. Also recommend renal doppler to rule out renal artery stenosis. No S/S of cerebral hyperperfusion syndrome. SBP goal liberalized to 130. Ceftriaxone started for UTI. Objective Medications: Scheduled Meds:amLODIPine, 10 mg, oral, Daily aspirin, 325 mg, oral, Daily atorvastatin, 80 mg, oral, Nightly buPROPion XL, 150 mg, oral, Daily carvediloL, 25 mg, oral, BID cefTRIAXone, 1,000 mg, intravenous, Q24H [facility] cetirizine, 10 mg, oral, Daily docusate sodium, 100 mg, oral, BID dronabinoL, 2.5 mg, oral, BID heparin, 5,000 Units, subcutaneous, Q8H [facility] hydroCHLOROthiazide, 25 mg, oral, Daily lidocaine, 1 patch, transdermal, Daily montelukast, 10 mg, oral, Nightly polyethylene glycol, 17 g, oral, Daily senna, 1 tablet, oral, BID sodium chloride 0.9%, 0.5-20 mL, intra-catheter, Q8H [facility] Continuous Infusions:clevidipine, 1-32 mg/hr, Last Rate: Stopped (11/01/19 1725) Vitals: Temp: [36.6 ??C (97.8 ??F)-37.2 ??C (99 ??F)] 36.6 ??C (97.8 ??F) Pulse: [57-78] 65 BP: (104-140)/(39-92) 104/45 Resp: [15-26] 22 SpO2: [90 %-98 %] 95 % Arterial Line BP: (104-184)/(31-52) 104/36 Fluid balance: No intake/output data recorded. Intake/Output Summary (Last 24 hours) at 11/02/2019 0034 Last data filed at 11/01/2019 1840 Gross per 24 hour Intake 1571.33 ml Output 1375 ml Net 196.33 ml Vent settings: Hemodynamic parameters: PAP: -- CVP: -- PCWP: -- CO: -- CI: -- SVO2: -- Pacemaker Overdrive Pacing: -- Cardiac Rhythm: Normal sinus rhythm (11/01 2199) Pacer Mode: -- Physical exam: Neuro: A/O x 4, MAEW. PERRL. Cardiovascular: RRR, + systolic murmur, periphery warm, palpable peripheral pulses. No edema. Pulmonary: RA. Breath sounds clear bilaterally. Normal effort. GI: abdomen soft, non-distended, non-tender. Normoactive bowel sounds. : voiding Skin: [place], warm, dry. Right upper chest and sternal incisions approximated, open to air. Right upper chest swelling near incision is stable. Minimal pain on palpation. No drainage. Laboratory data: Recent Labs Lab Units 11/01/19 0237 10/31/19 1207 10/27/19 0041 WBC K/cumm 10.5* 11.2* 6.2 HEMOGLOBIN g/dL 8.4* 9.1* 8.8* HEMATOCRIT % 25.2* 28.4* 26.6* PLATELETS K/cumm 479* 447* 285 Recent Labs Lab Units 11/01/19 0237 10/31/19 1207 10/27/19 0041 SODIUM mmol/L 136 138 133* POTASSIUM PLASMA mmol/L 4.2 4.8 3.9 CHLORIDE mmol/L 103 104 100 CO2 mmol/L 23 25 25 BUN SERUM mg/dL 11 11 17 CREATININE mg/dL 0.76 0.70 0.83 CALCIUM mg/dL 8.6 9.1 9.0 Recent Labs Lab Units 10/31/19 120 PROTIME (PT) sec 12.1 INR 1.1 APTT sec 34 Recent Labs Lab Units 11/01/19 0237 PH ART 7.46* PCO2 ART mmHg 31* PO2 ART mmHg 78* BASE EXC ART mmol/L -2 Radiology/Diagnostic Review No new imaging. AZZO INSTALLER * Assessment & Plan Note - Sultana Sotelo NP - 11/01/2019 8:06 PM TERRAZZO INSTALLER Associated Problem(s): Acute pain Pt reports mild right scapular pain since [...] and prn oxycodone added for breakthrough pain AZZO INSTALLER * Assessment & Plan Note - Sultana Sotelo NP - 11/01/2019 7:59 PM TERRAZZO INSTALLER Associated Problem(s): UTI (urinary tract infection) Pt with foul smelling urine on admit. Clean catch UA positive sent this am and positive ( present on admission) pt endorsing frequency and foul smelling urine that developed over the weekend. 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 - prn tylenol for headache and prn oxycodone for chronic right shoulder pain - consult cardiology for b/p management as b/p should be optimized for at least the next month withplans to Re- assess at that time. - q 2 hour neuro checks, call vascular if any changes in neuro exam AZZO INSTALLER AZZO INSTALLER * Assessment & Plan Note - Sultana Sotelo NP - 11/01/2019 7:49 PM TERRAZZO INSTALLER Associated Problem(s): Hypertension SBP goal < 130 in setting of [...] reports baseline sbp 150-160 and was on coreg/hc tz/norvasc at home since discharge last week. - prn tylenol for headache and prn oxycodone for chronic right shoulder pain - consult cardiology for b/p management as b/p should be optimized for at least the next month withplans to Re- assess at that time. clevidipine gtt being weaned off with addition of prn hydralazine 10mg q4h prn, home hctz resumed and currently on coreg 25mg bid. If blood pressure an issue, can increase coreg dose to 37.5mg bid or50 mg bid. Cardiology following and agree with [...] dose marinol. See pain for details . AZZO INSTALLER AZZO INSTALLER * Plan of Care - Mali Peck RN - 11/01/2019 6:46 PM TERRAZZO INSTALLER Goals: Summary: Problem: Activity: Goal: Mobility will improve Outcome: [...] improve to fullest extent possible Outcome: Progressing Problem: Lack of Knowledge: Goal: Ability to state ways to decrease the risk of falls will improve Outcome: Progressing Problem: Safety: Goal: Will remain free from falls Outcome: Progressing Goal: Will remain free from injury from falls Outcome: Progressing Goal: Will remain free from falls and injury in home environment Outcome: Progressing AZZO INSTALLER * Provider Query - Abdi Gutierres - 11/01/2019 4:18 PM CST Clinical Indicators/Treatments: - sBP 200's on max dose Nicardipine - Cerebral Hyperperfusion Syndrome - Cardiology consult: Recommend renal doppler to r/o renal artery stenosis Evaluation/Management: Nicardipine, clevidipine. Please clarify a diagnosis, if appropriate, that best reflects the patient???s Blood Pressure (BP) findings and document in the medical record and on the form below. Indicate Present on Admission status. ___Hypertensive emergency _x_Hypertensive urgency ___Essential primary hypertension ___Other, specify below ___Clinically unable to determine Provider Response: Patient admitted with severely elevated SBPs in the setting of recent cerebral perfusion procedure.She was complaining of headaches so she was admitted in ICU for hyperperfusion syndrome. Specificity of hypertension: Hypertensive Urgency: Defined as systolic BP of > 180 mmHG OR diastolic BP > 110 mmHG withoutassociated organ damage. Symptoms may or may not be present, but can include: severe headache, shortness of breath, nosebleeds, severe anxiety. Treatment: adjustment of oral blood pressure medications; IV medication is not usually required. These patients may not be admitted. Hypertensive Emergency: Defined as more critical than urgency, systolic BP of > 180 mmHG OR diastolic BP > 110 mmHG with associated organ damage. Hypertensive crisis, unspecified: Defined as most critical with systolic BP of > 180 mmHG OR diastolic BP > 110 mmHG. Reference: https://www.renalandurologynews.com/nephrology-hypertension/hypertension-hyperte nsion-cri fxn-ratnytofsche-joomihcsjbzv-okzvudfemnk-qcujotmogqzu-nvqfphl-malignant-hyperte nsion/article/821344/; https://www.frontiersin.org/articles/10.3389/fcvm.2016.47382/full Use of terms such as likely, suspected, possible, or probable (associated with a specific diagnosisthat is being evaluated, monitored, or treated as if it exists) are acceptable and can be coded in the inpatient setting when documented at the time of discharge. This documentation will become part of the patient's medical record. Sincerely, Abdi Gutierres MD, CCDS Clinical Photographic Laboratory Supervisor Health Information Management AZZO INSTALLER * Subjective & Objective - Deepak Sultana Drea, NAKIA - 11/01/2019 12:[address] ICU Daily Progress Shifts: NPP Shift Options: 8300 AM 1 Chief Complaint: Right upper chest swelling & recurrent headaches - concern for cerebral hyperperfusion syndrome Remote history: 10/21: s/p aortic arch reconstruction with aorta to bilateral carotid graft and aorta to right axillary artery graft ?? Interval History: No further headaches since admission with blood pressure control on clevidipine gtt and oral anti hypertensive regimen resumed. Objective Medications: Scheduled Meds:amLODIPine, 10 mg, oral, Daily aspirin, 325 mg, oral, Daily atorvastatin, 80 mg, oral, Nightly buPROPion XL, 150 mg, oral, Daily carvediloL, 25 mg, oral, BID cefTRIAXone, 1,000 mg, intravenous, Q24H [facility] cetirizine, 10 mg, oral, Daily docusate sodium, 100 mg, oral, BID heparin, 5,000 Units, subcutaneous, Q8H [facility] hydroCHLOROthiazide, 25 mg, oral, Daily lidocaine, 1 patch, transdermal, Daily montelukast, 10 mg, oral, Nightly polyethylene glycol, 17 g, oral, Daily senna, 1 tablet, oral, BID sodium chloride 0.9%, 0.5-20 mL, intra-catheter, Q8H [facility] Continuous Infusions:clevidipine, 1-32 mg/hr, Last Rate: 26 mg/hr (11/01/19 1155) Vitals: See Flow sheet Intake/Output Summary (Last 24 hours) at 11/01/2019 1233 Last data filed at 11/01/2019 1210 Gross per 24 hour Intake 1347.14 ml Output 1850 ml Net -502.86 ml Vent settings: Hemodynamic parameters: PAP: -- CVP: -- PCWP: -- CO: -- CI: -- SVO2: -- Pacemaker Overdrive Pacing: -- Cardiac Rhythm: Normal sinus rhythm (11/01 1200) Pacer Mode: -- Physical exam: Neuro: awake, alert, oriented x 4, CAM (-), moves all extremities, denies any headache, 5/5 strength Cardiac: RRR, S1 S2, periphery warm, pulses palpable distally Pulm: lungs clear throughout, non productive cough GI: abdomen round, soft, nontender, + bowel sounds :odorous urine, endorses frequency Skin: Right upper chest incision from axillary bypass with hematoma surrounding incision ( stable in size), suture removed from RU chest from old SARAI site. Midline sternal incision healed over. Chronic right shoulder pain Lines: L iván AL, PIV Lab/Radiology/Diagnostic Review: Recent Labs Lab Units 11/01/19 0237 10/31/19 1207 10/27/19 0041 WBC K/cumm 10.5* 11.2* 6.2 HEMOGLOBIN g/dL 8.4* 9.1* 8.8* HEMATOCRIT % 25.2* 28.4* 26.6* PLATELETS K/cumm 479* 447* 285 Recent Labs Lab Units 11/01/19 0237 SODIUM mmol/L 136 POTASSIUM PLASMA mmol/L 4.2 CHLORIDE mmol/L 103 CO2 mmol/L 23 ANIONGAP mmol/L 10 GLUCOSE mg/dL 155 BUN SERUM mg/dL 11 CREATININE mg/dL 0.76 CALCIUM mg/dL 8.6 Recent Labs Lab Units 10/31/19 1207 APTT sec 34 INR 1.1 CXR personally reviewed-> no xray to review I have personally reviewed the telemetry strips over the past 12h. I have personally reviewed the above labs and microbiology results. I have personally reviewed the radiology exams in the past 24h. AZZO INSTALLER AZZO INSTALLER * Assessment & Plan Note - Kimberly Connor NP - 11/01/2019 2:06 AM TERRAZZO INSTALLER Associated Problem(s): Acute pain Pt reports mild right scapular pain since surgery. Also reports mild pain associated with chest swelling. -lidocaine patch to back -prn tylenol AZZO INSTALLER AZZO INSTALLER * Assessment & Plan Note - Kimberly Connor NP - 11/01/2019 2:03 AM TERRAZZO INSTALLER Associated Problem(s): UTI (urinary tract infection) Pt reports burning with urination and RN reports odor associate with urine. Possible UTI. -obtain clean catch urine sample for UA AZZO INSTALLER * Assessment & Plan Note - Kimberly Connor NP - 11/01/2019 1:49 AM TERRAZZO INSTALLER Associated Problem(s): Hematoma of chest wall, right, initial encounter Could be hematoma vs seroma. Minimal pain. [...] dose of 12.5 mg coreg and increased scheduleddosing to 25 mg bid. Will also amlodipine 10 mg daily to start in am. AZZO INSTALLER AZZO INSTALLER AZZO INSTALLER * Plan of Care - Adrien Frey, SENG - 10/31/2019 11:13 PM CST Problem: Activity: Goal: Mobility will improve Outcome: [...] improve to fullest extent possible Outcome: Progressing Problem: Lack of Knowledge: Goal: Ability to state ways to decrease the risk of falls will improve Outcome: Progressing Problem: Safety: Goal: Will remain free from falls Outcome: Progressing Goal: Will remain free from injury from falls Outcome: Progressing Goal: Will remain free from falls and injury in home environment Outcome: Progressing Goals: Sys BP < 110; Monitor hematoma size; Monitor signs of bleeding; Monitor neuro status. Summary: Patient is currently resting in bed on 2 L/min nasal cannula and maintaining adequate oxygenation. Patient is A&Ox4 and denies having pain. Patient's blood pressure is controled via schedule carvedilol and Clevidipine gtt. Will continue to monitor closely AZZO INSTALLER * Subjective & Objective - Kimberly Connor NP - 10/31/2019 9:[address] ICU History and Physical Shifts: NPP Shift Options: 8300 PM 1 Subjective Patient is a 73 y.o. 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 Pt denies reports no drainage from the incision and the incision remains intact without erythema. No new pain or numbness down the R arm, but she does report some right scapular pain that has been ongoing since she woke up after surgery. CT with a 10 x 4.5 cm fluid collection near the right pectoralis minor muscle; no active extravasation or pseudoaneurysm. She has now been transferred from the ED to [facility] for BP and HR control.She arrives with SBP near 200 on max dose nicardipine. Past Medical History: Diagnosis Date ??? Anxiety [...] EXTRACAPSULAR W/ INTRAOCULAR LENS IMPLANTATION Bilateral 2017 HOME MEDICATIONS : aspirin 325 mg tablet atorvastatin (LIPITOR) 80 mg tablet buPROPion XL (WELLBUTRIN XL) 150 mg 24 hr tablet camphor-menthol (SARNA) lotion carvediloL (COREG) 12.5 mg tablet cetirizine (ZyrTEC) 10 mg tablet doxycycline (ADOXA) 50 mg tablet hydroCHLOROthiazide (HYDRODIURIL) 25 mg tablet lidocaine (LIDODERM) 5 % montelukast (SINGULAIR) 10 mg tablet ondansetron ODT (ZOFRAN-ODT) 4 mg disintegrating tablet oxyCODONE (ROXICODONE) 5 mg immediate release tablet senna-docusate (Senna Plus) 8.6-50 mg Allergies Allergen Reactions ??? Naproxen [...] (Added by TW Conv) Review of systems: Constitutional: Negative for chills, fatigue and fever. HENT: Negative for congestion, ear pain, hearing loss, sinus pain, sore throat and trouble swallowing. Eyes: Negative for pain and visual disturbance. Respiratory: Negative for chest tightness. Negative for cough, shortness of breath and wheezing. Cardiovascular: Negative for chest pain. Negative for palpitations and leg swelling. Gastrointestinal: Negative for abdominal distention, abdominal pain, blood in stool, diarrhea, nausea and vomiting. Positive for consitpation Musculoskeletal: Positive for right scapular pain. Skin: Negative for rash. Positive for swelling primarily superior to right upper chest incision. Neurological: Positive for recent headaches (currently denies [place]). Negative for dizziness, weakness, light-headedness and numbness. Hematological: Does not bruise/bleed easily. Psychiatric/Behavioral: Negative for behavioral problems and confusion. Objective Medications: Scheduled Meds:acetaminophen, 1,000 mg, oral, Q6H REID aspirin, 325 mg, oral, Daily atorvastatin, 80 mg, oral, Nightly buPROPion XL, 150 mg, oral, Daily carvediloL, 12.5 mg, oral, BID cetirizine, 10 mg, oral, Daily docusate sodium, 100 mg, oral, BID Or docusate, 100 mg, feeding tube, BID heparin, 5,000 Units, subcutaneous, Q8H [facility] lidocaine, 1 patch, transdermal, Daily montelukast, 10 mg, oral, Nightly polyethylene glycol, 17 g, feeding tube, Daily senna, 1 tablet, oral, BID Or senna, 8.8 mg, feeding tube, BID sodium chloride 0.9%, 0.5-20 mL, intra-catheter, Q8H [facility] Continuous Infusions:clevidipine, 1-32 mg/hr, Last Rate: 30 mg/hr (10/31/192134) Vitals: Temp: [36.6 ??C (97.9 ??F)-37.1 ??C (98.8 ??F)] 37.1 ??C (98.8 ??F) Pulse: [60-77] 66 BP: (123-187)/(48-56) 187/56 Resp: [10-26] 26 SpO2: [90 %-100 %] 93 % Arterial Line BP: (144-212)/(39-61) 144/39 Fluid balnace: I/O this shift: In: 421.6 [I.V.:421.6] Out: 600 [Urine:600] Intake/Output Summary (Last 24 hours) at 10/31/20192153 Last data filed at 10/31/20192099 Gross per 24 hour Intake 421.64 ml Output 600 ml Net -178.36 ml Vent settings: Hemodynamic parameters: PAP: -- CVP: -- PCWP: -- CO: -- CI: -- SVO2: -- Pacemaker Overdrive Pacing: -- Cardiac Rhythm: Normal sinus rhythm (10/31 2099) Pacer Mode: -- Physical exam: Neuro: A/O x 4, MAEW. PERRL. Cardiovascular: RRR, + systolic murmur, periphery warm, palpable peripheral pulses. No edema. Pulmonary: RA. Breath sounds clear bilaterally. Normal effort. GI: abdomen soft, non-distended, non-tender. Normoactive bowel sounds. : voiding Skin: [place], warm, dry. Right upper chest and sternal incisions approximated, open to air. Large area of swelling primarily superior to right upper chest incision. No drainage. Minimal pain on palpation. Laboratory data: Recent Labs Lab Units 10/31/19 1207 10/27/19 0041 10/25/19 2319 WBC K/cumm 11.2* 6.2 5.9 HEMOGLOBIN g/dL 9.1* 8.8* 8.3* HEMATOCRIT % 28.4* 26.6* 24.3* PLATELETS K/cumm 447* 285 240 Recent Labs Lab Units 10/31/19 1207 10/27/19 0041 10/25/19 2319 SODIUM mmol/L 138 133* 131* POTASSIUM PLASMA mmol/L 4.8 3.9 4.0 CHLORIDE mmol/L 104 100 96* CO2 mmol/L 25 25 26 BUN SERUM mg/dL 11 17 21 CREATININE mg/dL 0.70 0.83 0.79 CALCIUM mg/dL 9.1 9.0 9.2 Recent Labs Lab Units 10/31/19 1207 PROTIME (PT) sec 12.1 INR 1.1 APTT sec 34 Radiology/Diagnostic Review CXR: Bibasilar atelectasis. CT: 1. 10 x 4.5 cm fluid collection the right pectoralis minor muscle likely representing an evolving hematoma. No active extravasation or pseudoaneurysm. 2. Aorta-right axillary artery and aorta-bilateral common carotid arteries bypass grafts with adjacent small amount of fluid, post-operative. The bypass grafts are patent. 3. Right 1st rib fracture. AZZO INSTALLER AZZO INSTALLER * ED Procedure Note - Maria Dolores Altamirano MD - 10/31/2019 5:45 PM TERRAZZO INSTALLER Associated Order(s): Critical Care Procedure Critical Care Performed by: Maria Dolores Norton MD Authorized by: Maria Dolores Norton MD Critical care provider statement: As reflected in the history, physical exam, orders, notes, and/or MDM, I was personally present while the patient was critically ill and provided critical care services for approximately 45 minutes, excluding time involved in separately billable procedures. Critical care was necessary to treat or prevent imminent or life-threatening deterioration of the following condition(s): severe cardiac condition and hypertensive crisis Critical care was time spent by me providing the following: continuous telemetry, continuous pulse oximetry, interpretation of bedside monitors, imaging, and arterial/venous lab draws, serial bedside patient exams, serial laboratory checks and arterial puncture initiation and active titration of vasoactive medications I provided emergent necessary critical care medicine services to this patient. I ordered and reviewed test results and/or imaging studies. I spent time discussing the management of this critically ill patient with consultants and the medical staff. I spent time discussing the management and therapeutic options for this critically ill patient with the patient themselves or with the appropriate designated surrogate decision-maker. I spent time documenting in the medical record. I admitted this patient to an Intensive Care unit (ICU) and discussed management with the admitting team. Maria Dolores Norton MD 10/31/19 1746 AZZO INSTALLER * ED Procedure Note - Zachary Harp MD - 10/31/2019 4:24 PM TERRAZZO INSTALLER Associated Order(s): Arterial line Procedure Arterial line Date/Time: 10/31/2019 4:24 PM Performed by: Zachary Harp MD Authorized by: Maria Dolores Norton MD RN Notified of Procedure: yes Informed consent: Risks, benefits, alternatives discussed Patient's stated name/ matches armband: Yes Allergies confirmed: yes Imaging: Pertinent imaging reviewed, correctly oriented and match to patient identifiers Lab/Diag test results: Pertinent lab/diag tests reviewed and match to patient identifiers Supplies, devices and special equipment are available: yes Site/side marked: yes Immediately prior to the procedure a time out was called: a verbal verification by the procedure participants confirmed correct patient identity, correct site/side marked and visible (if applicable);agreement on procedure to be done; and correct patient positioning Indications: hemodynamic monitoring Skin preparation: 2% Chlorhexidine and Betadine Preparation: Patient was prepped and draped in sterile fashion Sedation used: no Anesthesia method: Local infiltration Local anesthetic: Lidocaine 1% Location: L radial Enmanuel's test performed: yes (Ultrasound confirmation of radial and ulnar artery patency in additionto Enmanuel's test) Enmanuel's test abnormal: no Needle gauge: 20 G Placement technique: Ultrasound guided Ultrasound guidance used for: Pre-procedure marking and real-time guidance Sterile ultrasound techniques: Sterile gel and sterile probe covers were used Number of attempts: 1 Transducer: waveform confirmed Post-procedure: Sterile dressing applied, secured with tape and sutured CMS: Normal Patient tolerance of procedure: Tolerated well, no immediate complications Any special post procedure monitoring, testing or other considerations: yes (enter/request order) Zachary Harp MD Resident 10/31/19 1973 Cosigned by Maria Dolores Altamirano MD at 10/31/2019 5:47 PM TERRAZZO INSTALLER AZZO INSTALLER AZZO INSTALLER Associated attestation - Maria Dolores Radford MD - 10/31/2019 5:47 PM TERRAZZO INSTALLER I was present for the entire procedure * ED Re-evaluation Note - Leona López MD - 10/31/2019 3:14 PM CST ED Re-evaluation TRANSITION OF CARE: I, Leona López MD, am taking signout from Katiuska (Resident) under supervision of Malina (Attending). I have reviewed all pertinent vital signs, allergies, and history available in the chart. Summary: 73 y.o. female history HTN and stenosis of right subclavian artery, innominate artery, andleft common carotid artery s/p partial sternotomy, bypass from ascending aorta to right axillary artery with 6 mm PTFE, and bypass from ascending aorta to right common carotid artery and left common carotid artery with 8 mm and 7 mm Dacron grafts on 10/21. Here with large [id number] hematoma on R chest since this morning. Pending: CTA, A line, nicardipine gtt, SBP < 110, HR < 70 Dispo: admit Leona López MD Resident 10/31/19 2248 AZZO INSTALLER * ED Procedure Note - Maria Dolores Altamirano MD - 10/31/2019 12:43 PM TERRAZZO INSTALLER Associated Order(s): ECG 12 lead Procedure ECG 12 lead Date/Time: 10/31/2019 12:43 PM Performed by: Maria Dolores Norton MD Authorized by: Zachary Harp MD Rate: ECG rate: 61 ECG rate assessment: normal Rhythm: Rhythm: sinus rhythm Ectopy: Ectopy: none QRS: QRS axis: Normal QRS intervals: Normal Conduction: Conduction: normal ST segments: ST segments: Non-specific T waves: T waves: flattening Flattening: III (no longer inverted in II avf) Q waves: Q waves: III Other findings: Other findings: LVH Previous ECG: Previous ECG: Compared to current Date of previous EC10/24/2019 Similarity: Changes noted Interpretation: Interpretation: non-specific Recommended Follow-up: Recommended follow up: further workup in the ED Maria Dolores Norton MD 10/31/19 1246 AZZO INSTALLER * ED Procedure Note - Zachary Harp MD - 10/31/2019 12:04 PM TERRAZZO INSTALLER Associated Order(s): US Soft Tissue Procedure US Soft Tissue Date/Time: 10/31/2019 12:05 PM Performed by: Zachary Harp MD Authorized by: Maria Dolores Norton MD Additional person(s) obtaining/interpreting images: Malina Procedure details: Indications for obtaining exam: Swelling Views obtained: Skin and subcutaneous tissue: Adequate Body location: Right chest wall, subclavicular Findings: Tissue thickness: Thickened Tissue echogenicity: Normal Cobblestoning: Normal Subcutaneous collection: Present Interpretation: Interpretation: heterogenous collection underneath surgical site, concerning for hematoma. No pulsatilty or flow on color doppler. Zachary Harp MD Resident 10/31/19 1206 Cosigned by Maria Dolores Altamirano MD at 10/31/2019 12:24 PM TERRAZZO INSTALLER AZZO INSTALLER AZZO INSTALLER Associated attestation - Maria Dolores Radford MD - 10/31/2019 12:24 PM TERRAZZO INSTALLER I have personally reviewed the image and the resident's interpretation. I agree with the findings. * ED Pre-Arrival Note - Jody Fitch RN - 10/31/2019 8:54 AM TERRAZZO INSTALLER Pre-Arrival Note Patient called in by dr. Marie. Patient s/p sternotomy and carotid bypass oct 21 and now with baseball sized hematoma at the site of the axillary incision. Needs ct angio of chest, pre-op labs, and the consult resident called. Dr. Wolfe on line for report Jody Fitch RN AZZO INSTALLER documented in this encounter Plan of Treatment Pending Results Name Type Priority Associated Diagnoses Date /Time Type and screen Lab STAT 0 12:07 PM TERRAZZO INSTALLER Scheduled Orders Name Type Priority Associated Diagnoses Orde r Schedule Type and screen Lab STAT STAT for 1 Occurrences starting 10/31/2019 until 10/31/2019 documented as of this encounter Procedures Procedure Name Priority Date/Time Associated Diagnosis Comments POCT GLUCOSE DEVICE Routine 11/04/2019 7 :15 AM TERRAZZO INSTALLER POCT GLUCOSE DEVICE Routine 11/04/2019 3 :41 AM TERRAZZO INSTALLER POCT GLUCOSE DEVICE Routine 11/03/2019 8 :13 PM TERRAZZO INSTALLER POCT GLUCOSE DEVICE Routine 11/03/2019 7 :25 AM TERRAZZO INSTALLER POCT GLUCOSE DEVICE Routine 11/02/2019 9 :17 PM TERRAZZO INSTALLER CRITICAL CARE Routine 11/02/2019 5:12 PM TERRAZZO INSTALLER Acute pain INFECTION PREVENTION MRSA ONLY (STAPHYLOCOCCUS AUREUS) CULTURE Routine 11/02/2019 2:41 PM TERRAZZO INSTALLER US RENAL DOPPLER IP Routine 11/02/2019 2:14 PM TERRAZZO INSTALLER CRITICAL CARE Routine 11/01/2019 11:08 PM TERRAZZO INSTALLER Hematoma CRITICAL CARE Routine 11/01/2019 8:10 PM TERRAZZO INSTALLER 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 URINALYSIS AND REFLEX TO MICROSCOPIC AND CULTURE Routine 11/01/2019 6:31 AM TERRAZZO INSTALLER URINALYSIS, MICROSCOPIC ONLY Routine 11/01/2019 6:31 AM TERRAZZO INSTALLER URINE CULTURE Routine 11/01/2019 6:31 AM TERRAZZO INSTALLER MRSA ONLY (STAPHYLOCOCCUS AUREUS) CULTURE Routine 11/01/2019 2:39 AM TERRAZZO INSTALLER POTASSIUM, WHOLE BLOOD STAT 11/01/2019 2:37 AM TERRAZZO INSTALLER CBC WITHOUT DIFFERENTIAL Routine 11/01/2019 2:37 AM TERRAZZO INSTALLER TYPE AND SCREEN Timed 11/01/2019 2:37 AM TERRAZZO INSTALLER PHOSPHORUS Routine 11/01/2019 2:37 AM TERRAZZO INSTALLER BLOOD GAS, ARTERIAL STAT 11/01/2019 2 :37 AM TERRAZZO INSTALLER LIPID PANEL Routine 11/01/2019 2:37 AM TERRAZZO INSTALLER BASIC METABOLIC PANEL Routine 11/01/2019 2:37 AM TERRAZZO INSTALLER CRITICAL CARE Routine 10/31/2019 11:12 PM TERRAZZO INSTALLER Hematoma XR CHEST 1 VIEW Timed 10/31/2019 9:57 PM TERRAZZO INSTALLER ECG 12-LEAD STAT 10/31/2019 8:25 PM TERRAZZO INSTALLER POCT GLUCOSE DEVICE Routine 10/31/2019 8 :04 PM TERRAZZO INSTALLER MT CRITICAL CARE ILL/INJURED PATIENT INIT 30-74 MIN Routine 10/31/2019 5:45 PM TERRAZZO INSTALLER MT ARTL CATHJ/CANNULJ MNTR/TRANSFUSION SPX PRQ Routine 10/31/2019 4:24 PM TERRAZZO INSTALLER CTA HEAD NECK W WO CONTRAST ED Urgent/IP Urgent 10/31/2019 2:25 PM TERRAZZO INSTALLER CTA CHEST W WO CONTRAST ED Urgent/IP Urgent 10/31/2019 2:25 PM TERRAZZO INSTALLER ECG 12-LEAD STAT 10/31/2019 12:43 PM TERRAZZO INSTALLER XR CHEST 1 VIEW ED 10/31/2019 12:31 PM TERRAZZO INSTALLER DIFFERENTIAL AUTO STAT 10/31/2019 12:07 PM TERRAZZO INSTALLER PRO B-TYPE NATRIURETIC PEPTIDE STAT 10/31/2019 12:07 PM TERRAZZO INSTALLER CBC WITH AUTO DIFFERENTIAL STAT 10/31/2019 12:07 PM TERRAZZO INSTALLER TROPONIN I STAT 10/31/2019 12:07 PM TERRAZZO INSTALLER APTT STAT 10/31/2019 12:07 PM TERRAZZO INSTALLER PROTIME-INR STAT 10/31/2019 12:07 PM TERRAZZO INSTALLER BASIC METABOLIC PANEL STAT 10/31/2019 12:07 PM TERRAZZO INSTALLER ED SOFT TISSUE ULTRASOUND Routine 10/31/2019 12:04 PM TERRAZZO INSTALLER documented in this encounter Results * POCT glucose (11/04/2019 7:15 AM TERRAZZO INSTALLER) Glucose, POC 115 70 - 199 mg/dL [facility] Blood specimen (specimen) 11/04/2019 7:15 AM TERRAZZO INSTALLER 11/04/2019 7:15 AM TERRAZZO INSTALLER us Zachary Giron MD LAB POCT ORDERABLES - DEV ICE Final Result Performing Organization Address [facility] Co de Phone Number [facility] Department [place] [address] * POCT glucose (11/04/2019 3:41 AM TERRAZZO INSTALLER) Glucose, POC 137 70 - 199 mg/dL [facility] Blood specimen (specimen) 11/04/2019 3:41 AM TERRAZZO INSTALLER 11/04/2019 3:41 AM TERRAZZO INSTALLER Zachary Giron MD LAB POCT ORDERABLES - DEV ICE Final Result [facility] [place] [address] * POCT glucose (11/03/2019 8:13 PM TERRAZZO INSTALLER) Glucose, POC 113 70 - 199 mg/dL [facility] Blood specimen (specimen) 11/03/2019 8:13 PM TERRAZZO INSTALLER 11/03/2019 8:13 PM TERRAZZO INSTALLER us Zachary Giron MD LAB POCT ORDERABLES - DEV ICE Final Result Performing Organization Address [facility] [place] [address] * POCT glucose (11/03/2019 7:25 AM TERRAZZO INSTALLER) Glucose, POC 128 70 - 199 mg/dL [facility] Blood specimen (specimen) 11/03/2019 7:25 AM TERRAZZO INSTALLER 11/03/2019 7:25 AM TERRAZZO INSTALLER Zachary Giron MD LAB POCT ORDERABLES - DEV ICE Final Result Performing Organization Address [facility] [place] [address] * POCT glucose (11/02/2019 9:17 PM TERRAZZO INSTALLER) Glucose, POC 114 70 - 199 mg/dL [facility] Blood specimen (specimen) 11/02/2019 9:17 PM TERRAZZO INSTALLER 11/02/2019 9:17 PM TERRAZZO INSTALLER Zachary Giron MD LAB POCT ORDERABLES - DEV ICE Final Result Performing Organization Address [facility] [place] [address] * Critical Care (11/02/2019 5:12 PM TERRAZZO INSTALLER) Narrative Paul Angulo MD - 11/02/2019 5:12 PM TERRAZZO INSTALLER Tash Villatoro NP ? 11/02/2019 ??6:24 PM Critical Care Performed by: Tash Villatoro NP Authorized by: Tash Villatoro NP CRITICAL CARE: ??Team: ??83 CTICU ??Shift: ??AM ??Level of Billing: ??Subsequent Hospital Visit Level 3 ??My time spent with this patient was 50 minutes: Critical Provider Statement: I have seen and examined the patient on this day of service. I have reviewed and confirmed the history, physical exam, laboratory, and radiographic data as documented in the ICU note. I have reviewed and discussed my treatment plan with the patient's team and other medical/publicity consultant staff. This time was in addition to and separate from care provided by other practitioners on this day of service. ? I spent time reviewing and interpreting data from bedside monitors, laboratory results, and imaging Tash Villatoro PERINATAL EDUCATOR IN CLINIC/BEDSIDE ORDERAB LES Edited Result - Final * Infection Prevention MRSA Only (Staphylococcus aureus) Culture Nasal (11/02/2019 2:41 PM TERRAZZO INSTALLER) Report Final Report: Negative [facility] Nasal 11/02/2019 2:41 PM TERRAZZO INSTALLER 11/02/2019 3:01 PM TERRAZZO INSTALLER Narrative [facility] - 11/03/2019 5:19 PM TERRAZZO INSTALLER Testing performed by [facility] ([phone]). us Tash Villatoro NP LAB MICROBIOLOGY - GENERA L ORDERABLES Final Result [facility] [place] [address] * US Renal Doppler (11/02/2019 2:14 PM TERRAZZO INSTALLER) Anatomical Region Laterality Modality Vascular N/A Ultrasound 11/02/2019 3:25 PM TERRAZZO INSTALLER Impressions 11/02/2019 3:32 PM TERRAZZO INSTALLER 1. No Doppler evidence of renal artery stenosis on the right. ??The left renal artery was unable to be evaluated as described above. Dictated by: Mamta Caba PA-C The radiology attending physician has personally reviewed this study, and had reviewed and/or edited this written report and agrees with it. Electronically signed by: Yariel Ramsey M.D. Narrative 11/02/2019 3:32 PM TERRAZZO INSTALLER EXAMINATION: 1. LIMITED RENAL SONOGRAM 2. RENAL DOPPLER (ADIS) HISTORY: ??73-year-old female with hypertension. ??Patient is status post cardiac surgery on 10/21/2019 COMPARISON: ??None FINDINGS: ?? Visualization is limited due to patient's body habitus, being scanned in a bed, and unable to roll into the appropriate positions for maximum visualization. LIMITED RENAL SONOGRAM: The echogenicity of both kidneys is normal. The kidneys are normal in size. ??The right kidney measures 12.6 cm in length, and the left, 13.1 cm in length. There is no hydronephrosis in either kidney. RENAL ARTERY DOPPLER: ??Color Doppler and spectral analysis were used to evaluate the renal vasculature. No focal flow abnormalities were seen in the right renal artery on color Doppler. ??The peak systolic velocity at the origin of the right renal artery and aorta were 76 cm/sec, and 118 cm/sec, respectively. These velocities and the renal to aortic ratio was within normal limits. The visualized portions of the right and left renal veins are patent. ??The left renal artery was only visualized near the renal hilum and is patent. ??The remainder of the artery was unable to be evaluated due to overlying bowel gas and patient positioning. Procedure Note Yariel Ramsey MD - 11/02/2019 EXAMINATION: 1. LIMITED RENAL SONOGRAM 2. RENAL DOPPLER (ADIS) HISTORY: 73-year-old female with hypertension. Patient is status post cardiac surgery on 10/21/2019 COMPARISON: None FINDINGS: Visualization is limited due to patient's body habitus, being scanned in a bed, and unable to roll into the appropriate positions for maximum visualization. LIMITED RENAL SONOGRAM: The echogenicity of both kidneys is normal. The kidneys are normal in size. The right kidney measures 12.6 cm in length, and the left, 13.1 cm in length. There is no hydronephrosis in either kidney. RENAL ARTERY DOPPLER: Color Doppler and spectral analysis were used to evaluate the renal vasculature. No focal flow abnormalities were seen in the right renal artery on color Doppler. The peak systolic velocity at the origin of the right renal artery and aorta were 76 cm/sec, and 118 cm/sec, respectively. These velocities and the renal to aortic ratio was within normal limits. The visualized portions of the right and left renal veins are patent. The left renal artery was only visualized near the renal hilum and is patent. The remainder of the artery was unable to be evaluated due to overlying bowel gas and patient positioning. IMPRESSION: 1. No Doppler evidence of renal artery stenosis on the right. The left renal artery was unable to be evaluated as described above. Dictated by: Mamta Caba PA-C The radiology attending physician has personally reviewed this study, and had reviewed and/or edited this written report and agrees with it. Electronically signed by: Yariel Ramsey M.D. us Tash Villatoro NP IMG US PROCEDURES Final R esult * Critical Care (11/01/2019 11:08 PM TERRAZZO INSTALLER) Paul Figueroa MD - 11/01/2019 11:08 PM TERRAZZO INSTALLER Kimberly Connor NP ? 11/02/2019 ??6:03 AM Critical Care Performed by: Kimberly Connor NP Authorized by: Kimberly Connor NP CRITICAL CARE: ??Team: ??83 CTICU ??Shift: ??PM ??Level of Billing: ??Subsequent Hospital Visit Level 3 ??My time spent with this patient was 45 minutes: Critical Provider Statement: I have seen and examined the patient on this day of service. I have reviewed and confirmed the history, physical exam, laboratory, and radiographic data as documented in the ICU note. I have reviewed and discussed my treatment plan with the patient's team and other medical/publicity consultant staff. This time was in addition to and separate from care provided by other practitioners on this day of service. ? I spent time reviewing and interpreting data from bedside monitors, laboratory results, and imaging us Kimberly Connor NP IN CLINIC/BEDSIDE ORD ERABLES Final Result * Critical Care (11/01/2019 8:10 PM TERRAZZO INSTALLER) Paul Figueroa MD - 11/01/2019 8:10 PM TERRAZZO INSTALLER Sultana Sotelo NP ? 11/01/2019 ??8:17 PM Critical Care Performed by: Sultana Sotelo NP Authorized by: Sultana Sotelo NP CRITICAL CARE: ??Team: ??83 CTICU ??Shift: ??AM ??Level of Billing: ??Critical Care ??My time spent with this patient was 90 minutes: Critical Provider Statement: I have seen and examined the patient on this day of service. I have reviewed and confirmed the history, physical exam, laboratory and radiologic data as documented in the signed ICU note. I have reviewed and discussed my treatment plan with the ICU team and other medical/publicity consultant staff, making frequent assessments and decisions [...] deterioration of the following conditions: ? Acute pain/acute postoperative pain ?? Cerebral hyperperfusion syndrome Hypertension ??This time was spent by me doing the following: ? Serial bedside patient exams ?? Acute pain control and Frequent neurologic exams ?? clevipipine ?? I spent time reviewing and interpreting data from bedside monitors, laboratory results, and imaging, I spent time discussing the management of this critically ill patient with consultants and the medical staff and I spent time documenting in the medical record Sultana Sotelo NP IN CLINIC/BEDSIDE ORDERABL ES Final Result * (ABNORMAL) Urine culture Urine, clean voided (11/01/2019 6:31 AM TERRAZZO INSTALLER) Report Final Report: Greater than or equal to 100,000 colonies/mL of Proteus mirabilis (.) [facility] Organism PROTEUS MIRABILIS [facility] Urine, clean voided 11/01/2019 6:31 AM TERRAZZO INSTALLER 11/01/2019 7:09 AM TERRAZZO INSTALLER Narrative [facility] - 11/03/2019 11:53 AM TERRAZZO INSTALLER Urine culture reflexed based upon urinalysis results. Testing performed by [facility] ([phone]) Organism Antibiotic Method Susceptibility Proteus mirabilis Ampicillin INTERPRETATION Susceptible Proteus mirabilis Cefazolin INTERPRETATION Susceptible Proteus mirabilis Nitrofurantoin INTERPRETATION Resistant Proteus mirabilis Gentamicin INTERPRETATION Susceptible Proteus mirabilis Trimethoprim with Sulfamethoxazole I NTERPRETATION Susceptible Proteus mirabilis Meropenem INTERPRETATION Susceptible Proteus mirabilis Cefepime INTERPRETATION Susceptible Proteus mirabilis Ciprofloxacin INTERPRETATION Susceptible Proteus mirabilis Ceftazidime INTERPRETATION Susceptible Proteus mirabilis Ceftriaxone INTERPRETATION Susceptible Proteus mirabilis Piperacillin/Tazobactam INTERPRETATI ON Susceptible Proteus mirabilis Cephalexin INTERPRETATION Susceptible Proteus mirabilis Cefuroxime-axetil INTERPRETATION Susceptible Proteus mirabilis Cefdinir INTERPRETATION Susceptible Kimberly Connor PERINATAL EDUCATOR LAB MICROBIOLOGY - GE NERAL ORDERABLES Final Result Performing Organization Address [facility] de Phone Number [facility] [place] [address] * (ABNORMAL) Urinalysis, microscopic only (11/01/2019 6:31 AM TERRAZZO INSTALLER) WBC, ur 21-50(A) 0 - 5 /HPF [facility] RBC, ur 0-2 0 - 2 /HPF [facility] Epithelial cells, squamous, ur 1-5 0 - 5 /HPF [facility] Bacteria, ur 1+(A) [facility] Culture Reflex Comment Reflex to urine culture will be performed. [facility] Urine, clean voided 11/01/2019 6:31 AM TERRAZZO INSTALLER 11/01/2019 6:44 AM TERRAZZO INSTALLER us Kimberly Connor PERINATAL EDUCATOR LAB URINE ORDERABLES Final Result Performing Organization Address [facility] de Phone Number [facility] [place] [address] * (ABNORMAL) Urinalysis reflex to microscopic and culture Urine, clean voided (11/01/2019 6:31 AM TERRAZZO INSTALLER) Color, ur Yellow Yellow [facility] Clarity, ur Clear Clear [facility] Specific gravity, ur 1.019 1.010 - 1.025 [facility] pH, urine 8 [facility] Protein, ur ql Negative Negative [facility] Glucose, ur ql Negative Negative [facility] Ketones, ur Trace Negative [facility] Bilirubin, ur Negative Negative [facility] Blood, ur Negative Negative [facility] Urobilinogen, ur <2.0 <2.0 mg/dL [facility] Nitrite, ur Positive(A) Negative [facility] Leukocyte esterase, ur 3+(A) Negative [facility] UA reflex comment Reflex to microscopic UA will be performed. [facility] Urine, clean voided 11/01/2019 6:31 AM TERRAZZO INSTALLER 11/01/2019 6:44 AM TERRAZZO INSTALLER Narrative [facility] - 11/01/2019 6:48 AM TERRAZZO INSTALLER ?? Urine pH is affected by diet, medications, systemic acid-base disturbances, and renal tubular function. ??pH may affect urinary stone formation. ??For example, urine pH below 6.0 may help reduce the tendency for calcium phosphate stones and pH greater than 6.0 may reduce the tendency for uric acid stone formation. Source: [facility] [place]. Last revised 09-17-2017 Kimberly Connor NP LAB MICROBIOLOGY - GE NERAL ORDERABLES Final Result Performing Organization Address [facility] Co de Phone Number [facility] [place], [place] [id number] * MRSA Only (Staphylococcus aureus) Culture Nasal (11/01/2019 2:39 AM TERRAZZO INSTALLER) Report Final Report: Negative [facility] Nasal 11/01/2019 2:39 AM TERRAZZO INSTALLER 11/01/2019 3:40 AM TERRAZZO INSTALLER Narrative [facility] - 11/02/2019 7:19 AM TERRAZZO INSTALLER Testing performed by [facility] ([phone]). Kimberly Connor NP LAB MICROBIOLOGY - GE NERAL ORDERABLES Final Result Performing Organization Address [facility] Co de Phone Number [facility] [place] [address] * (ABNORMAL) Lipid panel (11/01/2019 2:37 AM TERRAZZO INSTALLER) Cholesterol 74 30 - 199 mg/dL [facility] Comment: Interpretive Data Ages < or = [...] Data was last revised on 2018. Triglycerides 266(H) <=149 mg/dL [facility] Comment: Interpretive Data Ages < or = [...] Data was last revised on 2018. HDL 30(L) >=40 mg/dL [facility] Comment: Interpretive Data Ages < or = [...] was last revised on 2018. LDL, calculated <1 <=129 mg/dL [facility] Comment: Interpretive Data Ages < or = [...] was last revised on 2018. Non-HDL Cholesterol 44 mg/dL [facility] Comment: Interpretive Data Ages < or = [...] last revised on 2018. Chol/HDL ratio 2 [facility] Blood specimen (specimen) 11/01/2019 2:37 AM TERRAZZO INSTALLER 11/01/2019 2:47 AM TERRAZZO INSTALLER us Zachary Giron MD LAB BLOOD ORDERABLES Tiffany l Result Performing Organization Address [facility] Co de Phone Number [facility] [place] [address] * (ABNORMAL) Blood gas, arterial (11/01/2019 2:37 AM TERRAZZO INSTALLER) Pathologist [facility] pH, Art 7.46(H) 7.35 - 7.45 [facility] PCO2, Arterial 31(L) 35 - 45 mmHg [facility] PO2, Arterial 78(L) 83 - 108 mmHg [facility] HCO3 Art (Calculated) 22 20 - 30 mmol/L [facility] BE, art -2 mmol/L [facility] Comment: Interpretive Data No Reference Range Established Current Interpretive Data was last revised on 2017 O2 Sat Art (Measured) 95 90 - 95 % [facility] Blood specimen (specimen) 11/01/2019 2:37 AM TERRAZZO INSTALLER 11/01/2019 2:46 AM TERRAZZO INSTALLER Patricia Rice NP LAB BLOOD ORDERABL ES Final Result Performing Organization Address [facility] Co de Phone Number [facility] [place] [address] * Potassium, whole blood (11/01/2019 2:37 AM TERRAZZO INSTALLER) [facility] Potassium, bld 3.7 3.3 - 4.9 mmol/L [facility] Blood specimen (specimen) 11/01/2019 2:37 AM TERRAZZO INSTALLER 11/01/2019 2:46 AM TERRAZZO INSTALLER Patricia Rice NP LAB BLOOD ORDERABL ES Final Result Performing Organization Address [facility] [place] [address] * Type and screen (11/01/2019 2:37 AM TERRAZZO INSTALLER) Pathologist [facility] ABO Rh O Positive [facility] Mara, indirect Negative [facility] Blood specimen (specimen) 11/01/2019 2:37 AM TERRAZZO INSTALLER 11/01/2019 2:51 AM TERRAZZO INSTALLER Narrative [facility] - 11/01/2019 3:44 AM TERRAZZO INSTALLER Every 3 days Has the patient had Daratumumab (Darzalex) in the past 6 months?->Unknown Tash Villatoro PERINATAL EDUCATOR LAB BLOOD BANK TEST ORDER EDD Final Result Performing Organization Address City/[facility]/ZIP Co de Phone Number [facility] [place] [address] * Phosphorus (11/01/2019 2:37 AM TERRAZZO INSTALLER) [facility] Phosphorus, pl 3.9 2.3 - 4.5 mg/dL [facility] Blood specimen (specimen) 11/01/2019 2:37 AM TERRAZZO INSTALLER 11/01/2019 2:47 AM TERRAZZO INSTALLER Patricia Rice PERINATAL EDUCATOR LAB BLOOD ORDERABL ES Final Result Performing Organization Address [facility] de Phone Number [facility] [place] [address] * Basic metabolic panel (11/01/2019 2:37 AM TERRAZZO INSTALLER) [facility] Sodium 136 135 - 145 mmol/L [facility] Potassium, pl 4.2 3.3 - 4.9 mmol/L [facility] Comment:Hemolyzed; Potassium value may be falsely elevated by as much as 0.3-0.5 mmol/L. Suggest redraw and reanalysis. Chloride 103 97 - 110 mmol/L [facility] CO2 23 22 - 32 mmol/L [facility] Anion gap 10 2 - 15 mmol/L [facility] BUN 11 8 - 25 mg/dL [facility] Creatinine 0.76 0.60 - 1.10 mg/dL [facility] Glucose 155 70 - 199 mg/dL [facility] Comment: Interpretive Data Fasting glucose >/= 126 [...] 2017. Calcium 8.6 8.5 - 10.3 mg/dL [facility] Blood specimen (specimen) 11/01/2019 2:37 AM TERRAZZO INSTALLER 11/01/2019 2:47 AM TERRAZZO INSTALLER Patricia Rice NP LAB BLOOD ORDERABL ES Final Result [facility] [place] [address] * (ABNORMAL) CBC without differential (11/01/2019 2:37 AM TERRAZZO INSTALLER) WBC 10.5(H) 3.8 - 9.9 K/cumm [facility] Hgb 8.4(L) 11.9 - 15.5 g/dL [facility] Hct 25.2(L) 35.6 - 45.5 % [facility] Plt 479(H) 150 - 400 K/cumm [facility] MPV 8.8(L) 9.1 - 12.3 fL [facility] RBC 2.63(L) 3.90 - 5.20 M/cumm [facility] MCV 95.8 81.3 - 96.4 fL [facility] MCH 31.9 27.1 - 33.3 pg [facility] MCHC 33.3 32.3 - 35.7 g/dL [facility] RDW CV 15.1(H) 11.1 - 14.9 % [facility] RDW SD 51.7(H) 35.7 - 48.1 fL [facility] NRBC abs 0.00 0.00 - 0.01 K/cumm [facility] Blood specimen (specimen) 11/01/2019 2:37 AM TERRAZZO INSTALLER 11/01/2019 2:47 AM TERRAZZO INSTALLER us Patricia Rice NP LAB BLOOD ORDERABL ES Final Result [facility] [place] [address] * Critical Care (10/31/2019 11:12 PM TERRAZZO INSTALLER) Narrative Paul Angulo MD - 10/31/2019 11:12 PM TERRAZZO INSTALLER Kimberly Connor NP ? 11/01/2019 ??7:21 AM Critical Care Performed by: Kimberly Connor NP Authorized by: Kimberly Connor NP CRITICAL CARE: ??Team: ??83 CTICU ??Shift: ??PM ??Level of Billing: ??Critical Care ??My time spent with this patient was 130 minutes: Critical Provider Statement: I have seen and examined the patient on this day of service. I have reviewed and confirmed the history, physical exam, laboratory and radiologic data as documented in the signed ICU note. I have reviewed and discussed my treatment plan with the ICU team and other medical/publicity consultant staff, making frequent assessments and decisions [...] deterioration of the following conditions: ? Acute pain/acute postoperative pain ?? Cerebral hyperperfusion syndrome UTI ??This time was spent by me doing the following: ? Acute pain control and Frequent neurologic exams ?? Initiation/active titration of vasoactive medications ?? Review of prior or current culture/gram stain results ?? I spent time reviewing and interpreting data from bedside monitors, laboratory results, and imaging, I spent time documenting in the medical record and I spent time discussing the management of this critically ill patient with consultants and the medical staff us Kimberly Connor NP IN CLINIC/BEDSIDE ORD ERABLES Final Result * XR Chest 1 View (10/31/2019 9:57 PM TERRAZZO INSTALLER) Anatomical Region Laterality Modality Body, Chest N/A Computed Radiogr aphy 11/01/2019 11:3 6 AM TERRAZZO INSTALLER Impressions 11/01/2019 11:40 AM TERRAZZO INSTALLER The current study is compared with the prior radiograph dated 10/31/2019 Median sternotomy wires are aligned and intact. There are tiny bilateral pleural effusions. ??No pulmonary edema. ??No focal consolidation. ??No pneumothorax. ??The cardiomediastinal silhouette is stable. ??Atherosclerotic calcification of the aorta is noted. Dictated by: Uday Brown M.D. The radiology attending physician has personally reviewed this study, and had reviewed and/or edited this written report and agrees with it. Electronically signed by: Lori Laboy M.D. Narrative 11/01/2019 11:40 AM TERRAZZO INSTALLER EXAMINATION: 1 view chest radiograph Procedure Note Lori Laboy MD - 11/01/2019 EXAMINATION: 1 view chest radiograph IMPRESSION: The current study is compared with the prior radiograph dated 10/31/2019 Median sternotomy wires are aligned and intact. There are tiny bilateral pleural effusions. No pulmonary edema. No focal consolidation. No pneumothorax. The cardiomediastinal silhouette is stable. Atherosclerotic calcification of the aorta is noted. Dictated by: Uday Brown M.D. The radiology attending physician has personally reviewed this study, and had reviewed and/or edited this written report and agrees with it. Electronically signed by: Lori Laboy M.D. Patricia Rice NP IMG XR PROCEDURES Final Result * ECG 12 lead (10/31/2019 8:25 PM TERRAZZO INSTALLER) Ventricular Rate EKG/Min 68 BPM [facility] Atrial Rate 68 BPM [facility] MT-Interval (MSEC) 150 ms [facility] QRS-Interval (MSEC) 96 ms [facility] QT-Interval (MSEC) 406 ms [facility] QTc 431 ms [facility] P [place] 44 degrees [facility] R [place] 23 degrees [facility] T [place] 41 degrees [facility] Diagnosis Normal sinus rhythm Nonspecific ST abnormality Abnormal ECG [...] CORRIGAN M.D ([id number]) on 11/21/2019 3:25:10 PM [facility] 10/31/2019 8:25 PM TERRAZZO INSTALLER 11/21/2019 3:25 PM CDT Patricia Rice NP ECG ORDERABLES Fi nal Result Performing Organization Address [facility] Co de Phone Number [facility] * POCT glucose (10/31/2019 8:04 PM TERRAZZO INSTALLER) [facility] Glucose, POC 117 70 - 199 mg/dL [facility] Blood specimen (specimen) 10/31/2019 8:04 PM TERRAZZO INSTALLER 10/31/2019 8:04 PM TERRAZZO INSTALLER Zachary Giron MD LAB POCT ORDERABLES - DEV ICE Final Result Performing Organization Address [facility] Co de Phone Number [facility] [place] [address] * MT CRITICAL CARE ILL/INJURED PATIENT INIT 30-74 MIN (10/31/2019 5:45 PM TERRAZZO INSTALLER) Narrative Maria Dolores Altamirano MD - 10/31/2019 5:45 PM TERRAZZO INSTALLER Maria Dolores Norton MD ? 10/31/2019 ??5:46 PM Critical Care Performed by: Maria Dolores Norton MD Authorized by: Maria Dolores Norton MD Critical care provider statement: As reflected in the history, physical exam, orders, notes, and/or MDM, I was personally present while the patient was critically ill and provided critical care services for approximately 45 minutes, excluding time involved in separately billable procedures. ??Critical care was necessary to treat or prevent imminent or life-threatening deterioration of the following condition(s): ?? severe cardiac condition and hypertensive crisis ??Critical care was time spent by me providing the following: ? continuous telemetry, continuous pulse oximetry, interpretation of bedside monitors, imaging, and arterial/venous lab draws, serial bedside patient exams, serial laboratory checks and arterial puncture ?? initiation and active titration of vasoactive medications ?? I provided emergent necessary critical care medicine services to this patient. I ordered and reviewed test results and/or imaging studies. I spent time discussing the management of this critically ill patient with consultants and the medical staff. I spent time discussing the management and therapeutic options for this critically ill patient with the patient themselves or with the appropriate designated surrogate decision-maker. I spent time documenting in the medical record. I admitted this patient to an Intensive Care unit (ICU) and discussed management with the admitting team. us Maria Dolores Radford MD IN CLINIC/BEDSIDE ORDERABLES Fin al Result * MT ARTL CATHJ/CANNULJ MNTR/TRANSFUSION SPX PRQ (10/31/2019 4:24 PM TERRAZZO INSTALLER) Narrative Maria Dolores Altamirano MD - 10/31/2019 4:24 PM TERRAZZO INSTALLER Zachary Harp MD ? 10/31/2019 ??4:25 PM Arterial line Date/Time: 10/31/2019 4:24 PM Performed by: Zachary Harp MD Authorized by: Maria Dolores Norton MD RN Notified of Procedure: yes ?? Informed consent: ??Risks, benefits, alternatives discussed Patient's stated name/ matches armband: ??Yes Allergies confirmed: yes ?? Imaging: ??Pertinent imaging reviewed, correctly oriented and match to patient identifiers Lab/Diag test results: ??Pertinent lab/diag tests reviewed and match to patient identifiers Supplies, devices and special equipment are available: yes ?? Site/side marked: yes ?? Immediately prior to the procedure a time out was called: a verbal verification by the procedure participants confirmed correct patient identity, correct site/side marked and visible (if applicable); agreement on procedure to be done; and correct patient positioning ?? Indications: hemodynamic monitoring ?? Skin preparation: ??2% Chlorhexidine and Betadine Preparation: Patient was prepped and draped in sterile fashion ?? Sedation used: no ?? Anesthesia method: ??Local infiltration Local anesthetic: ??Lidocaine 1% Location: ??L radial Enmanuel's test performed: yes (Ultrasound confirmation of radial and ulnar artery patency in addition to Enmanuel's test) ?? Enmanuel's test abnormal: no ?? Needle gauge: ??20 G Placement technique: ??Ultrasound guided Ultrasound guidance used for: ??Pre-procedure marking and real-time guidance Sterile ultrasound techniques: Sterile gel and sterile probe covers were used ?? Number of attempts: ??1 Transducer: waveform confirmed ?? Post-procedure: ??Sterile dressing applied, secured with tape and sutured CMS: ??Normal Patient tolerance of procedure: ??Tolerated well, no immediate complications Any special post procedure monitoring, testing or other considerations: yes (enter/request order) ?? us Maria Dolores Radford MD IN CLINIC/BEDSIDE ORDERABLES Fin al Result * CTA Chest W WO Contrast (10/31/2019 2:25 PM TERRAZZO INSTALLER) Anatomical Region Laterality Modality Chest N/A Computed Tomogra phy 10/31/2019 3:25 PM TERRAZZO INSTALLER Impressions 11/01/2019 4:46 PM TERRAZZO INSTALLER 1. 10 x 4.5 cm fluid collection the right pectoralis minor muscle likely representing an evolving hematoma. ??No active extravasation or pseudoaneurysm. 2. ??Aorta-right axillary artery and aorta-bilateral common carotid arteries bypass grafts with adjacent small amount of fluid, post-operative. The bypass grafts are patent. 3. Right 1st rib fracture. Dictated by: Brad Ness M.D. The radiology attending physician has personally reviewed this study, and had reviewed and/or edited this written report and agrees with it. Electronically signed by: Jackson Mccormack M.D. Narrative 11/01/2019 4:46 PM TERRAZZO INSTALLER EXAMINATION: ?CT ANGIOGRAPHY OF THE CHEST WITH AND WITHOUT CONTRAST HISTORY: Recent aorta to right axillary and right and left common carotid arteries bypasses on 10/21/2019 now presenting with swelling over the right chest. TECHNIQUE: ?? CT angiography of the chest was performed prior to and following uneventful intravenous administration of 125 ml Optiray-350 using the post-endoluminal stent graft protocol. Vascular 3D images were generated on a dedicated workstation and also reviewed. COMPARISON: 10/11/2019. FINDINGS: VASCULAR FINDINGS: There is an aorta-right axillary artery bypass which is patent. There is an aorta to the bilateral common carotid arteries bypass which is patent. ??There is a small volume fluid surrounding the bypass grafts, postsurgical. ??The craig right brachiocephalic artery and left common carotid arteries are heavily calcified and occluded. There is a left carotid to to left subclavian artery bypass which is patent. NON-VASCULAR FINDINGS: There is a right chest wall fluid collection in the right pectoralis minor muscle measuring 10 x 4.5 cm. ??There is no active extravasation or pseudoaneurysm. ??There is a right 1st rib fracture. The heart is normal in size with trace pericardial effusion. Atherosclerotic changes of the aorta, visceral arteries, and coronary arteries are seen. ??There is no mediastinal, axillary, or supraclavicular lymphadenopathy. ??Median sternotomy wires are seen. Diffuse emphysema seen. ??There is no focal consolidation. ??Bibasilar atelectasis are seen. ??Right pleural effusion is noted. ??There is no pneumothorax. The limited evaluation of the upper abdomen is unremarkable. ??The bone window demonstrate no suspicious lytic or blastic osseous lesion. Procedure Note Jackson Mccormack MD - 11/01/2019 EXAMINATION: CT ANGIOGRAPHY OF THE CHEST WITH AND WITHOUT CONTRAST HISTORY: Recent aorta to right axillary and right and left common carotid arteries bypasses on 10/21/2019 now presenting with swelling over the right chest. TECHNIQUE: CT angiography of the chest was performed prior to and following uneventful intravenous administration of 125 ml Optiray-350 using the post-endoluminal stent graft protocol. Vascular 3D images were generated on a dedicated workstation and also reviewed. COMPARISON: 10/11/2019. FINDINGS: VASCULAR FINDINGS: There is an aorta-right axillary artery bypass which is patent. There is an aorta to the bilateral common carotid arteries bypass which is patent. There is a small volume fluid surrounding the bypass grafts, postsurgical. The craig right brachiocephalic artery and left common carotid arteries are heavily calcified and occluded. There is a left carotid to to left subclavian artery bypass which is patent. NON-VASCULAR FINDINGS: There is a right chest wall fluid collection in the right pectoralis minor muscle measuring 10 x 4.5 cm. There is no active extravasation or pseudoaneurysm. There is a right 1st rib fracture. The heart is normal in size with trace pericardial effusion. Atherosclerotic changes of the aorta, visceral arteries, and coronary arteries are seen. There is no mediastinal, axillary, or supraclavicular lymphadenopathy. Median sternotomy wires are seen. Diffuse emphysema seen. There is no focal consolidation. Bibasilar atelectasis are seen. Right pleural effusion is noted. There is no pneumothorax. The limited evaluation of the upper abdomen is unremarkable. The bone window demonstrate no suspicious lytic or blastic osseous lesion. IMPRESSION: 1. 10 x 4.5 cm fluid collection the right pectoralis minor muscle likely representing an evolving hematoma. No active extravasation or pseudoaneurysm. 2. Aorta-right axillary artery and aorta-bilateral common carotid arteries bypass grafts with adjacent small amount of fluid, post-operative. The bypass grafts are patent. 3. Right 1st rib fracture. Dictated by: Brad Ness M.D. The radiology attending physician has personally reviewed this study, and had reviewed and/or edited this written report and agrees with it. Electronically signed by: Jackson Mccormack M.D. Maria Dolores Radford MD IM CT PROCEDURES Final Result * CTA Head Neck W WO Contrast (10/31/2019 2:25 PM TERRAZZO INSTALLER) Anatomical Region Laterality Modality Head and Neck N/A Computed Tomogra phy 10/31/2019 4:12 PM TERRAZZO INSTALLER Impressions 10/31/2019 5:25 PM TERRAZZO INSTALLER 1. No acute intracranial abnormality. 2. Interval vascular surgery with grafting of the common carotid and right subclavian arteries to the aortic arch, without residual stenosis of the proximal great vessels. 3. ??A 7 cm seroma in the right chest wall that compresses the right subclavian vein. There is no distal opacification in right subclavian vein, which could reflect occlusion and/or thrombosis. Recommend clinical correlation. Ultrasound could be obtained for further evaluation of the arm vessels. Dictated by: Zack Dodson M.D. The radiology attending physician has personally reviewed this study, and had reviewed and/or edited this written report and agrees with it. 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 On 10/21/2019 she had bypass from the aorta to the right axillary artery as well as a bifurcated bypass from the ascending aorta to the right common carotid artery and the left common carotid artery. TECHNIQUE: Computed tomography of the head was performed without contrast according to standard protocol. Computed tomographic angiography was then obtained from the aortic arch to the vertex following the uneventful administration of intravenous contrast. 3D images were generated on a dedicated workstation. Contrast information: 125 mL Optiray-350 COMPARISON: CTA head/neck, 10/11/2019. FINDINGS: There is no acute intracranial hemorrhage . Ventricles are of normal size and morphology. No mass effect or midline shift is present. The nazario-white matter differentiation is normal. There is a small right parietal lobe calcification that is likely sequelae of remote a process. There are changes of bilateral lens replacements. The visualized portions of the mastoids are normal. The visualized portions of the paranasal sinuses are normal. No fractures are identified. Atherosclerotic calcifications are seen in the cavernous carotid arteries. Scattered subcentimeter lymph nodes are seen in the neck. None are pathologically enlarged or abnormally enhancing. The muscles of the neck are normal. Fascial planes are preserved and the deep spaces of the neck are normal. The visualized airway is widely patent. There is a subcentimeter nodule in the left thyroid lobe. There is a 7.6 cm x 5.3 cm x 5.6 cm fluid density (0 Hounsfield units) collection in the right chest wall extending from the supraclavicular fossa to beneath the right pectoralis major muscle. There is no peripheral rim enhancement to suggest abscess. There is mild multilevel degenerative disc disease of the cervical spine with mild spinal canal stenosis at C5-C6. Limited examination of the superior thorax shows a small right pleural effusion. Angiographic findings: There are post surgical changes of a partial median sternotomy with a vascular graft extending from the ascending aorta to the right axillary artery as well as a bifurcated graft extending from the ascending aorta to the left and right common carotid arteries. There is a calcified ??stenosis of the origin of the right vertebral artery coming off the right subclavian artery. The right vertebral artery is dominant. Redemonstrated is occlusion of the V2 segment of the left vertebral artery with distal reconstitution at the V3 segment from muscular collaterals. Approximately 50% stenosis of the right carotid artery is seen at the carotid bulb and <50% stenosis of the left carotid artery is seen in the carotid bulb. Residual atherosclerotic calcifications are seen in the aortic arch. There is a severe stenosis of the right subclavian vein at the level of the right chest wall fluid collection without opacification of the more distal vein. The [id number] is complete. The anterior and middle cerebral arteries are normal. The basilar artery is normal. The posterior cerebral arteries are normal. There is no aneurysm or vascular malformation identified. 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 On 10/21/2019 she had bypass from the aorta to the right axillary artery as well as a bifurcated bypass from the ascending aorta to the right common carotid artery and the left common carotid artery. TECHNIQUE: Computed tomography of the head was performed without contrast according to standard protocol. Computed tomographic angiography was then obtained from the aortic arch to the vertex following the uneventful administration of intravenous contrast. 3D images were generated on a dedicated workstation. Contrast information: 125 mL Optiray-350 COMPARISON: CTA head/neck, 10/11/2019. FINDINGS: There is no acute intracranial hemorrhage . Ventricles are of normal size and morphology. No mass effect or midline shift is present. The nazario-white matter differentiation is normal. There is a small right parietal lobe calcification that is likely sequelae of remote a process. There are changes of bilateral lens replacements. The visualized portions of the mastoids are normal. The visualized portions of the paranasal sinuses are normal. No fractures are identified. Atherosclerotic calcifications are seen in the cavernous carotid arteries. Scattered subcentimeter lymph nodes are seen in the neck. None are pathologically enlarged or abnormally enhancing. The muscles of the neck are normal. Fascial planes are preserved and the deep spaces of the neck are normal. The visualized airway is widely patent. There is a subcentimeter nodule in the left thyroid lobe. There is a 7.6 cm x 5.3 cm x 5.6 cm fluid density (0 Hounsfield units) collection in the right chest wall extending from the supraclavicular fossa to beneath the right pectoralis major muscle. There is no peripheral rim enhancement to suggest abscess. There is mild multilevel degenerative disc disease of the cervical spine with mild spinal canal stenosis at C5-C6. Limited examination of the superior thorax shows a small right pleural effusion. Angiographic findings: There are post surgical changes of a partial median sternotomy with a vascular graft extending from the ascending aorta to the right axillary artery as well as a bifurcated graft extending from the ascending aorta to the left and right common carotid arteries. There is a calcified stenosis of the origin of the right vertebral artery coming off the right subclavian artery. The right vertebral artery is dominant. Redemonstrated is occlusion of the V2 segment of the left vertebral artery with distal reconstitution at the V3 segment from muscular collaterals. Approximately 50% stenosis of the right carotid artery is seen at the carotid bulb and <50% stenosis of the left carotid artery is seen in the carotid bulb. Residual atherosclerotic calcifications are seen in the aortic arch. There is a severe stenosis of the right subclavian vein at the level of the right chest wall fluid collection without opacification of the more distal vein. The [id number] is complete. The anterior and middle cerebral arteries are normal. The basilar artery is normal. The posterior cerebral arteries are normal. There is no aneurysm or vascular malformation identified. IMPRESSION: 1. No acute intracranial abnormality. 2. Interval vascular surgery with grafting of the common carotid and right subclavian arteries to the aortic arch, without residual stenosis of the proximal great vessels. 3. A 7 cm seroma in the right chest wall that compresses the right subclavian vein. There is no distal opacification in right subclavian vein, which could reflect occlusion and/or thrombosis. Recommend clinical correlation. Ultrasound could be obtained for further evaluation of the arm vessels. Dictated by: Zack Dodson M.D. The radiology attending physician has personally reviewed this study, and had reviewed and/or edited this written report and agrees with it. Electronically signed by: Doug Clay us Maria Dolores Radford MD IMG CT PROCEDURES Final Result * ECG 12-LEAD (10/31/2019 12:43 PM TERRAZZO INSTALLER) Narrative [facility] - 10/31/2019 12:43 PM TERRAZZO INSTALLER Maria Dolores Norton MD ? 10/31/2019 12:46 PM ECG 12 lead Date/Time: 10/31/2019 12:43 PM Performed by: Maria Dolores Norton MD Authorized by: Zachary Harp MD Rate: ??ECG rate: ??61 ??ECG rate assessment: normal ?? Rhythm: ??Rhythm: sinus rhythm ?? Ectopy: ??Ectopy: none ?? QRS: ??QRS axis: ??Normal ??QRS intervals: ??Normal Conduction: ??Conduction: normal ?? ST segments: ??ST segments: ??Non-specific T waves: ??T waves: flattening ?Flattening: ??III (no longer inverted in II avf) Q waves: ??Q waves: ??III Other findings: ??Other findings: LVH ?? Previous ECG: ??Previous ECG: ??Compared to current ??Date of previous ECG: ??10/24/2019 ??Similarity: ??Changes noted Interpretation: ??Interpretation: non-specific ?? Recommended Follow-up: ??Recommended follow up: further workup in the ED ?? Procedure Note Maria Dolores Altamirano MD - 10/31/2019 12:43 PM CST Procedure ECG 12 lead Date/Time: 10/31/2019 12:43 PM Performed by: Maria Dolores Norton MD Authorized by: Zachary Harp MD Rate: ECG rate: 61 ECG rate assessment: normal Rhythm: Rhythm: sinus rhythm Ectopy: Ectopy: none QRS: QRS axis: Normal QRS intervals: Normal Conduction: Conduction: normal ST segments: ST segments: Non-specific T waves: T waves: flattening Flattening: III (no longer inverted in II avf) Q waves: Q waves: III Other findings: Other findings: LVH Previous ECG: Previous ECG: Compared to current Date of previous EC10/24/2019 Similarity: Changes noted Interpretation: Interpretation: non-specific Recommended Follow-up: Recommended follow up: further workup in the ED Maria Dolores Norton MD 10/31/19 1246 us Zachary Harp MD ECG ORDERABLES Final Re sult [facility] * XR Chest 1 Vw Portable (10/31/2019 12:31 PM TERRAZZO INSTALLER) Anatomical Region Laterality Modality Body, Chest N/A Computed Radiogr aphy 10/31/2019 1:14 PM TERRAZZO INSTALLER Impressions 10/31/2019 1:14 PM TERRAZZO INSTALLER Status post median sternotomy. Enlarged cardiac and mediastinal silhouette is unchanged. There is likely a small amount of right pleural fluid. There is mild bibasilar atelectasis which appears improved on left compared to prior. No pneumothorax. Electronically signed by: Sivakumar Saeed M.D. Narrative 10/31/2019 1:14 PM TERRAZZO INSTALLER EXAMINATION: 1 view chest radiograph COMPARISON: 10/24/2019 INDICATION: right chest wall mass Procedure Note Sivakumar Saeed MD - 10/31/2019 EXAMINATION: 1 view chest radiograph COMPARISON: 10/24/2019 INDICATION: right chest wall mass IMPRESSION: Status post median sternotomy. Enlarged cardiac and mediastinal silhouette is unchanged. There is likely a small amount of right pleural fluid. There is mild bibasilar atelectasis which appears improved on left compared to prior. No pneumothorax. Electronically signed by: Sivakumar Saeed M.D. us Zachary Harp MD IMG XR PROCEDURES Final Result * (ABNORMAL) Differential, auto (10/31/2019 12:07 PM TERRAZZO INSTALLER) Neutrophil abs 8.5(H) 1.7 - 6.5 K/cumm [facility] Imm gran abs 0.2(H) 0.0 - 0.1 K/cumm [facility] Lymphocyte abs 1.6 0.8 - 3.3 K/cumm [facility] Monocyte abs 0.8 0.2 - 0.8 K/cumm [facility] Eosinophil abs 0.1 0.0 - 0.5 K/cumm [facility] Basophil abs 0.0 0.0 - 0.1 K/cumm [facility] Neutrophil pct 76.3 % [facility] Comment: Interpretive Data Percent cell count reference ranges are not reported, since discordance with absolute values may lead to misinterpretation of CBC data. Current Interpretive Data was last revised on 2017. Imm gran pct 1.8 % [facility] Comment: Interpretive Data Percent cell count reference ranges are not reported, since discordance with absolute values may lead to misinterpretation of CBC data. Current Interpretive Data was last revised on 2017. Lymphocyte pct 14.1 % [facility] Comment: Interpretive Data Percent cell count reference ranges are not reported, since discordance with absolute values may lead to misinterpretation of CBC data. Current Interpretive Data was last revised on 2017. Monocyte pct 6.8 % [facility] Comment: Interpretive Data Percent cell count reference ranges are not reported, since discordance with absolute values may lead to misinterpretation of CBC data. Current Interpretive Data was last revised on 2017. Eosinophil pct 0.7 % [facility] Comment: Interpretive Data Percent cell count reference ranges are not reported, since discordance with absolute values may lead to misinterpretation of CBC data. Current Interpretive Data was last revised on 2017. Basophil pct 0.3 % [facility] Comment: Interpretive Data Percent cell count reference ranges are not reported, since discordance with absolute values may lead to misinterpretation of CBC data. Current Interpretive Data was last revised on 2017. Blood specimen (specimen) 10/31/2019 12:07 PM TERRAZZO INSTALLER 10/31/2019 12:19 PM TERRAZZO INSTALLER us Zachary Harp MD LAB BLOOD ORDERABLES Fin al Result [facility] [place] [address] * (ABNORMAL) Pro B-type natriuretic peptide (10/31/2019 12:07 PM TERRAZZO INSTALLER) NT-proBNP 973(H) <=300 pg/mL [facility] Comment: Interpretive Comments: A. Dyspnea in Acute Care Setting All Ages: ?< 300 pg/ml, acute heart failure unlikely. < 50 yrs: ?300 - 450 pg/ml, further investigation warranted. ? > 450 pg/ml, acute heart failure likely. 50 - 74 yrs: ? 300 - 900 pg/ml, further investigation warranted. ? > 900 pg/ml, acute heart failure likely . > or = 75 yrs: ? 450 - 1800 pg/ml, further investigation warranted. ? > 1800 pg/ml, acute heart failure likely. B. Non-acute Setting < 75 yrs ? < 125 pg/ml, rules out heart failure. ? > or = 125 pg/ml, further investigation warranted. > or = 75 yrs ?< 450 pg/ml, rules out heart failure. ? > or = 450 pg/ml, further investigation warranted. - Knowledge of each individual patient's NT-proBNP range may be more useful than using similar cut-points for every patient. Please note that marked elevations in NT-proBNP levels may be observed in state other than Left Ventricular Congestive Failure, including: acute coronary syndromes, right heart strain/failure (including pulmonary embolism and cor pulmonale), critical illness, renal failure, as well as advanced age. - References: 1. Leslie PONCE et.al. Eur Heart J. 2006:27:330-337. 2. Peyton DELONG, Isaac ADEN. J. AM Karl Cardiol: Cardiovasc Imag. 2009;2: 216- 225. Interpretive Data Last Revised Date: 2018. Blood specimen (specimen) 10/31/2019 12:07 PM TERRAZZO INSTALLER 10/31/2019 12:19 PM TERRAZZO INSTALLER Narrative [facility] - 10/31/2019 12:53 PM TERRAZZO INSTALLER THE COLLECTION LOCATION IS [facility] us Zachary Harp MD LAB BLOOD ORDERABLES Fin al Result [facility] [place] [address] * Troponin I (10/31/2019 12:07 PM TERRAZZO INSTALLER) Troponin I <0.03 0.00 - 0.03 ng/mL [facility] Comment: Interpretive Data: Normal plasma Troponin I concentrations can reach 1 ng/mL in the first two weeks of life and slowly decrease to adult levels (<0.03 ng/mL) by the age of 3 months. > 3 months ??<0.03 ng/mL > or = 18 years Serial determinations are recommended for the diagnosis of myocardial infarction. ??Temporal rise and fall are consistent with myocardial infarction when at least one value is above the 99th percentile upper reference limit for Troponin assay. References: 1. Clin Chem 2013;59:9158-4467 2. Journal of the [employer] 2012;60:1581-98 Current Interpretive Data Last Revised Date: 2018. Blood specimen (specimen) 10/31/2019 12:07 PM TERRAZZO INSTALLER 10/31/2019 12:19 PM TERRAZZO INSTALLER Narrative [facility] - 10/31/2019 12:53 PM TERRAZZO INSTALLER THE COLLECTION LOCATION IS [facility] us Zachary Harp MD LAB BLOOD ORDERABLES [place] Result - Final Performing Organization Address [facility] [place] [address] * Protime-INR (10/31/2019 12:07 PM TERRAZZO INSTALLER) PT 12.1 8.6 - 13.0 sec [facility] INR 1.1 0.8 - 1.2 [facility] Comment: Interpretive data Oral anticoagulant therapeutic ranges: Venous thromboembolism prophylaxis or treatment: 2.0-3.0 CARDIOLOGY Standard range: 2.0-3.0 High-intensity range: 2.5-3.5 Refer to indication-specific guidelines for appropriate target ranges for prosthetic heart valve replacement. Current interpretive data was last revised on 2019. Blood specimen (specimen) 10/31/2019 12:07 PM TERRAZZO INSTALLER 10/31/2019 12:14 PM TERRAZZO INSTALLER Narrative [facility] - 10/31/2019 12:43 PM TERRAZZO INSTALLER THE COLLECTION LOCATION IS [place] [id number] Zachary Harp MD LAB BLOOD ORDERABLES Fin al Result Performing Organization Address [facility] [place] [address] * aPTT (10/31/2019 12:07 PM TERRAZZO INSTALLER) aPTT 34 25 - 37 sec [facility] Comment: Interpretive data Heparin therapeutic range: 60-90 seconds Range based on correlation with therapeutic heparin activity range of 0.3-0.7 units/ml. Current interpretive data was last revised on 2019. Blood specimen (specimen) 10/31/2019 12:07 PM TERRAZZO INSTALLER 10/31/2019 12:14 PM TERRAZZO INSTALLER Narrative [facility] - 10/31/2019 12:43 PM TERRAZZO INSTALLER THE COLLECTION LOCATION IS [facility] Zachary Harp MD LAB BLOOD ORDERABLES Fin al Result Performing Organization Address [facility] Co de Phone Number [facility] [place] [address] * Basic metabolic panel (10/31/2019 12:07 PM TERRAZZO INSTALLER) Sodium 138 135 - 145 mmol/L [facility] Potassium, pl 4.8 3.3 - 4.9 mmol/L [facility] Comment:Hemolyzed; Potassium value may be falsely elevated by as much as 0.3-0.5 mmol/L. Suggest redraw and reanalysis. Chloride 104 97 - 110 mmol/L [facility] CO2 25 22 - 32 mmol/L [facility] Anion gap 9 2 - 15 mmol/L [facility] BUN 11 8 - 25 mg/dL [facility] Creatinine 0.70 0.60 - 1.10 mg/dL [facility] Glucose 108 70 - 199 mg/dL [facility] Comment: Interpretive Data Fasting glucose >/= 126 [...] interpretive data was last revised 2017. Calcium 9.1 8.5 - 10.3 mg/dL [facility] Blood specimen (specimen) 10/31/2019 12:07 PM TERRAZZO INSTALLER 10/31/2019 12:19 PM TERRAZZO INSTALLER Narrative [facility] - 10/31/2019 12:53 PM TERRAZZO INSTALLER THE COLLECTION LOCATION IS [facility] ED2-31 us Zachary Harp MD LAB BLOOD ORDERABLES Fin al Result Performing Organization Address [facility] Co de Phone Number [facility] [place] [address] * (ABNORMAL) CBC with auto differential (10/31/2019 12:07 PM TERRAZZO INSTALLER) WBC 11.2(H) 3.8 - 9.9 K/cumm [facility] Hgb 9.1(L) 11.9 - 15.5 g/dL [facility] Hct 28.4(L) 35.6 - 45.5 % [facility] Plt 447(H) 150 - 400 K/cumm [facility] MPV 9.2 9.1 - 12.3 fL [facility] RBC 2.94(L) 3.90 - 5.20 M/cumm [facility] MCV 96.6(H) 81.3 - 96.4 fL [facility] MCH 31.0 27.1 - 33.3 pg [facility] MCHC 32.0(L) 32.3 - 35.7 g/dL [facility] RDW CV 15.1(H) 11.1 - 14.9 % [facility] RDW SD 52.7(H) 35.7 - 48.1 fL [facility] NRBC abs 0.00 0.00 - 0.01 K/cumm [facility] Blood specimen (specimen) 10/31/2019 12:07 PM TERRAZZO INSTALLER 10/31/2019 12:19 PM TERRAZZO INSTALLER Narrative [facility] - 10/31/2019 12:29 PM TERRAZZO INSTALLER THE COLLECTION LOCATION IS [place] [address] us Zachary Harp MD LAB BLOOD ORDERABLES Fin al Result [facility] [place] [address] * ED SOFT TISSUE ULTRASOUND (10/31/2019 12:04 PM TERRAZZO INSTALLER) Narrative Maria Dolores Altamirano MD - 10/31/2019 12:04 PM TERRAZZO INSTALLER Zachary Harp MD ? 10/31/2019 12:06 PM US Soft Tissue Date/Time: 10/31/2019 12:05 PM Performed by: Zachary Harp MD Authorized by: Maria Dolores Norton MD Additional person(s) obtaining/interpreting images: ??Malina Procedure details: ??Indications for obtaining exam: ??Swelling Views obtained: ??Skin and subcutaneous tissue: ??Adequate ??Body location: ??Right chest wall, subclavicular Findings: ??Tissue thickness: ??Thickened ??Tissue echogenicity: ??Normal ??Cobblestoning: ??Normal ??Subcutaneous collection: ??Present Interpretation: ??Interpretation: heterogenous collection underneath surgical site, concerning for hematoma. ??No pulsatilty or flow on color doppler. 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 documented in this encounter Administered Medications Inactive Administered Medications - up to 3 most recent administrations Medication Order MAR Action Action Date Dose Rate Site acetaminophen (TYLENOL) tablet 1,000 mg 1,000 mg, oral, Every 6 hours scheduled, First dose on Thu10/31/19 at 1930 Given 10/31/2019 11:31 PM TERRAZZO INSTALLER 1,000 mg Given 10/31/2019 8:02 PM TERRAZZO INSTALLER 1,000 mg acetaminophen (TYLENOL) tablet 1,000 mg 1,000 mg, oral, Every 6 hours PRN, 1st line for pain, Starting on Thu11/01/19 at 0208 Given 11/04/2019 6:51 AM TERRAZZO INSTALLER 1,000 mg Given 11/03/2019 11:41 AM TERRAZZO INSTALLER 1,000 mg Given 11/03/2019 5:24 AM TERRAZZO INSTALLER 1,000 mg amLODIPine (NORVASC) tablet 10 mg 10 mg, oral, Daily, First dose on Thu11/01/19 at 0900 Given 11/04/2019 8:51 AM TERRAZZO INSTALLER 10 mg Given 11/03/2019 8:43 AM TERRAZZO INSTALLER 10 mg Given 11/02/2019 8:13 AM TERRAZZO INSTALLER 10 mg aspirin tablet 325 mg 325 mg, oral, Daily, First dose on Thu10/31/19 at 1915 Given 11/04/2019 8:51 AM TERRAZZO INSTALLER 325 mg Given 11/03/2019 8:43 AM TERRAZZO INSTALLER 325 mg Given 11/02/2019 8:13 AM TERRAZZO INSTALLER 325 mg atorvastatin (LIPITOR) tablet 80 mg 80 mg, oral, Nightly, First dose on Thu10/31/19 at 2100 Given 11/03/2019 8:53 PM TERRAZZO INSTALLER 80 mg Given 11/02/2019 8:58 PM TERRAZZO INSTALLER 80 mg Given 11/01/2019 8:38 PM TERRAZZO INSTALLER 80 mg bisacodyL (DULCOLAX) suppository 10 mg 10 mg, rectal, Daily PRN, constipation, Starting on Thu11/03/19 at 0906, Indications: constipationIndications:constipation buPROPion XL (WELLBUTRIN XL) 24 hour tablet 150 mg 150 mg, oral, Daily, First dose on Thu10/31/19 at 1915, Do not crush, chew, cut, dissolve, open or otherwise manipulate tablet/capsule. Given 11/04/2019 8:51 AM TERRAZZO INSTALLER 150 mg Given 11/03/2019 8:43 AM TERRAZZO INSTALLER 150 mg Given 11/02/2019 8:13 AM TERRAZZO INSTALLER 150 mg carvediloL (COREG) tablet 12.5 mg 12.5 mg, oral, 2 times daily, First dose on Thu10/31/19 at 2115 Given 10/31/2019 8:39 PM TERRAZZO INSTALLER 12.5 mg carvediloL (COREG) tablet 12.5 mg 12.5 mg, oral, Once, On Thu10/31/19 at 2315, For 1 dose Given 10/31/2019 11:31 PM TERRAZZO INSTALLER 12.5 mg carvediloL (COREG) tablet 25 mg 25 mg, oral, 2 times daily, First dose (after last modification) on Thu11/01/19 at 0900, Hold for HR <60 SBP <100 Given 11/04/2019 8:53 AM TERRAZZO INSTALLER 25 mg Given 11/03/2019 8:54 PM TERRAZZO INSTALLER 25 mg Given 11/03/2019 8:42 AM TERRAZZO INSTALLER 25 mg cefdinir (OMNICEF) capsule 300 mg 300 mg, oral, 2 times daily, First dose (after last modification) on Thu11/04/19 at 1200, Indications: Urinary Tract/Genitourinary InfectionIndications:Urinary Tract/Genitourinary Infection cefTRIAXone (ROCEPHIN) 1,000 mg/10 mL in sterile water (premix) 1,000 mg 1,000 mg, intravenous, at 120 mL/hr, Administer over 5 Minutes, Every 24 hours scheduled, First dose on Thu11/01/19 at 0745, For 4 doses, Indications: Urinary Tract/Genitourinary InfectionIndications:Urinary Tract/Genitourinary Infection New Bag 11/04/2019 9:29 AM TERRAZZO INSTALLER 1,000 mg 1 20 mL/hr New Bag 11/03/2019 8:43 AM TERRAZZO INSTALLER 1,000 mg 120 mL/hr New Bag 11/02/2019 8:14 AM TERRAZZO INSTALLER 1,000 mg 120 mL/hr cetirizine (ZyrTEC) tablet 10 mg 10 mg, oral, Daily, First dose on Thu10/31/19 at 1915 Given 11/04/2019 8:51 AM TERRAZZO INSTALLER 10 mg Given 11/03/2019 8:43 AM TERRAZZO INSTALLER 10 mg Given 11/02/2019 8:13 AM TERRAZZO INSTALLER 10 mg clevidipine (CLEVIPREX) 50 mg/100 mL (0.5 mg/mL) (premix) 1-32 mg/hr (2-64 mL/hr), 0.5 mg/mL, intravenous, Titrated, Starting on Thu10/31/19 at 1930, Until Thu11/01/19 at 0843, Initial rate: 1 mg/hr, Titrate: Up/Down, Titrate by: 1 mg/hr, Every: 2 minutes, Goal: SBP, SBP Goal: Other (comment) / SBP <110, Vial only stable 12 hours after entry. Replace with new vial every 12 hours., Routine New Bag 11/01/2019 8:17 AM TERRAZZO INSTALLER 30 mg/hr 60 mL/hr Rate/Dose Verify 11/01/2019 7:00 AM TERRAZZO INSTALLER 32 mg/hr 64 mL/h r New Bag 11/01/2019 6:40 AM TERRAZZO INSTALLER 32 mg/hr 64 mL/hr clevidipine (CLEVIPREX) 50 mg/100 mL (0.5 mg/mL) (premix) 1-32 mg/hr (2-64 mL/hr), 0.5 mg/mL, intravenous, Titrated, Starting on Thu11/01/19 at 0915, Until Thu11/02/19 at 0935, Initial rate: 1 mg/hr, Titrate: Up/Down, Titrate by: 1 mg/hr, Every: 2 minutes, Goal: SBP, SBP Goal: Other (comment) / SBP < 130, Vial only stable 12 hours after entry. Replace with new vial every 12 hours., Routine Rate/Dose Change 11/01/2019 5:05 PM TERRAZZO INSTALLER 2 mg/hr 4 mL/hr Rate/Dose Change 11/01/2019 4:55 PM TERRAZZO INSTALLER 4 mg/hr 8 mL/hr Rate/Dose Change 11/01/2019 4:45 PM TERRAZZO INSTALLER 6 mg/hr 12 mL/h r docusate sodium (COLACE) capsule 100 mg 100 mg, oral, 2 times daily, First dose on Thu10/31/19 at 2100, If able to swallow medications. Hold for diarrhea. , Indications: constipationIndications:constipation Given 11/04/2019 8:53 AM TERRAZZO INSTALLER 100 mg Given 11/03/2019 8:53 PM TERRAZZO INSTALLER 100 mg Given 11/03/2019 8:42 AM TERRAZZO INSTALLER 100 mg dronabinoL (MARINOL) capsule 2.5 mg 2.5 mg, oral, 2 times daily, First dose on Thu11/01/19 at 1415, For 2 days Given 11/02/2019 8:13 AM TERRAZZO INSTALLER 2.5 mg Given 11/01/2019 9:00 PM TERRAZZO INSTALLER 2.5 mg Given 11/01/2019 4:00 PM TERRAZZO INSTALLER 2.5 mg heparin 5,000 unit/mL injection 5,000 Units 5,000 Units, subcutaneous, Every 8 hours scheduled, First dose on Thu10/31/19 at 2200, Indications: Deep Vein Thrombosis PreventionIndications:Deep Vein Thrombosis Prevention Given 11/04/2019 6:11 AM TERRAZZO INSTALLER 5,000 Units Left Lower Abdomen Given 11/03/2019 8:54 PM TERRAZZO INSTALLER 5,000 Units L eft Lower Abdomen Given 11/03/2019 2:47 PM TERRAZZO INSTALLER 5,000 Units L eft Lower Abdomen hydrALAZINE (APRESOLINE) injection 10 mg 10 mg, intravenous, Administer over 2 Minutes, Every 4 hours PRN, high blood pressure, Starting on Thu11/01/19 at 0918, Indications: hypertensionIndications:hypertension Given 11/01/2019 10:03 AM TERRAZZO INSTALLER 10 mg hydrALAZINE (APRESOLINE) injection 10 mg 10 mg, intravenous, Administer over 2 Minutes, Every 3 hours PRN, high blood pressure, Starting on Thu11/01/19 at 1330, Indications: hypertensionIndications:hypertension Given 11/01/2019 1:29 PM TERRAZZO INSTALLER 10 mg hydrALAZINE (APRESOLINE) injection 10 mg 10 mg, intravenous, Administer over 2 Minutes, Every 2 hours PRN, high blood pressure, Starting on Thu11/02/19 at 1530, Indications: hypertensionIndications:hypertension Given 11/03/2019 11:30 PM TERRAZZO INSTALLER 10 mg Given 11/02/2019 4:20 PM TERRAZZO INSTALLER 10 mg hydroCHLOROthiazide (HYDRODIURIL) tablet 25 mg 25 mg, oral, Daily, First dose on Thu11/01/19 at 1130 Given 11/04/2019 8:57 AM TERRAZZO INSTALLER 25 mg Given 11/03/2019 8:43 AM TERRAZZO INSTALLER 25 mg Given 11/02/2019 8:13 AM TERRAZZO INSTALLER 25 mg ioversol (OPTIRAY 350) syringe syringe 125 mL 125 mL, intravenous, Once in imaging, contrast, Starting on Thu10/31/19 at 1425, For 1 dose Given 10/31/2019 2:26 PM TERRAZZO INSTALLER 125 mL lidocaine (LIDODERM) 5 % patch 1 patch 1 patch, transdermal, Administer over 12 Hours, Daily, First dose on Thu10/31/19 at 1900, For 26 days, Do not cover the holes on the top side of the patch., Apply to affected area: back, chest Medication Applied 11/03/2019 9:01 PM TERRAZZO INSTALLER 1 patch Right Shoulder Medication Applied 11/02/2019 9:02 PM TERRAZZO INSTALLER 1 patch Back Medication Applied 10/31/2019 7:57 PM TERRAZZO INSTALLER 1 patch Back lisinopriL (PRINIVIL,ZESTRIL) tablet 10 mg 10 mg, oral, Daily, First dose (after last modification) on Thu11/04/19 at 0900, Hold for HR <60 SBP <100 Given 11/04/2019 8:51 AM TERRAZZO INSTALLER 10 mg lisinopriL (PRINIVIL,ZESTRIL) tablet 5 mg 5 mg, oral, Daily, First dose on Thu11/02/19 at 1200, Hold for HR <60 SBP <100 Given 11/03/2019 8:42 AM TERRAZZO INSTALLER 5 mg Given 11/02/2019 12:21 PM TERRAZZO INSTALLER 5 mg lisinopriL (PRINIVIL,ZESTRIL) tablet 5 mg 5 mg, oral, Once, On Thu11/03/19 at 1200, For 1 dose Given 11/03/2019 11:36 AM TERRAZZO INSTALLER 5 mg montelukast (SINGULAIR) tablet 10 mg 10 mg, oral, Nightly, First dose on Thu10/31/19 at 2100 Given 11/03/2019 8:54 PM TERRAZZO INSTALLER 10 mg Given 11/02/2019 9:01 PM TERRAZZO INSTALLER 10 mg Given 11/01/2019 8:39 PM TERRAZZO INSTALLER 10 mg morphine injection 4 mg 4 mg, intravenous, Administer over 4 Minutes, Once, On Thu10/31/19 at 1208, For 1 dose Given 10/31/2019 12:42 PM TERRAZZO INSTALLER 4 mg morphine injection 4 mg 4 mg, intravenous, Administer over 4 Minutes, Once, On Thu10/31/19 at 1737, For 1 dose Given 10/31/2019 5:40 PM TERRAZZO INSTALLER 4 mg niCARdipine in sodium chloride 0.9% (CARDENE) 25 mg/250 mL (0.1 mg/mL) infusion (premix) solution 0.5-2.5 mcg/kg/min ? 88.5 kg (26.55-132.75 mL/hr, rounded to 26.6-132.8 mL/hr), 100 mcg/mL, intravenous, Titrated, Starting on Thu10/31/19 at 1534, Until Thu10/31/19 at 1951, Initial rate: 0.5 mcg/kg/min, Titrate: Up/Down, Titrate by: 0.5 mcg/kg/min, Every: 10 minutes, Goal: SBP, SBP Goal: Other (comment) / < 110, Routine Rate/Dose Verify 10/31/2019 8:00 PM TERRAZZO INSTALLER 2.5 mcg/kg/min 132.8 mL/hr Rate/Dose Change 10/31/2019 6:45 PM TERRAZZO INSTALLER 2.5 mcg/kg/min 132 .8 mL/hr Rate/Dose Change 10/31/2019 5:41 PM TERRAZZO INSTALLER 1.5 mcg/kg/min 79. 7 mL/hr oxyCODONE (ROXICODONE) tablet 5 mg 5 mg, oral, Every 6 hours PRN, 1st line for pain, Starting on Thu10/31/19 at 1844, Indications: PainIndications:Pain Given 11/01/2019 12:11 AM TERRAZZO INSTALLER 5 mg oxyCODONE (ROXICODONE) tablet 5 mg 5 mg, oral, Every 4 hours PRN, 2nd line for pain, Starting on Thu11/01/19 at 0918, Indications: PainIndications:Pain Given 11/04/2019 6:11 AM TERRAZZO INSTALLER 5 mg Given 11/04/2019 1:15 AM TERRAZZO INSTALLER 5 mg Given 11/03/2019 8:54 PM TERRAZZO INSTALLER 5 mg polyethylene glycol (MIRALAX) packet 17 g 17 g, oral, Daily, First dose (after last modification) on Thu11/01/19 at 0915, Hold for diarrhea, Indications: constipationIndications:constipation Given 11/04/2019 8:57 AM TERRAZZO INSTALLER 17 g Given 11/03/2019 8:43 AM TERRAZZO INSTALLER 17 g Given 11/02/2019 8:21 AM TERRAZZO INSTALLER 17 g polyethylene glycol (MIRALAX) packet 17 g 17 g, oral, Once, On Thu11/01/19 at 1745, For 1 dose, Indications: constipationIndications:constipation Given 11/01/2019 5:32 PM TERRAZZO INSTALLER 17 g potassium chloride ER (KLOR-CON) extended release tablet 40 mEq 40 mEq, oral, Once, On Thu11/01/19 at 0330, For 1 dose, Do not crush, chew, cut, dissolve, open or otherwise manipulate tablet/capsule. Given 11/01/2019 3:17 AM TERRAZZO INSTALLER 40 mEq senna (SENOKOT) tablet 1 tablet 1 tablet, oral, 2 times daily, First dose on Thu10/31/19 at 2100, If able to swallow medications. Hold for diarrhea., Indications: constipationIndications:constipation Given 11/02/2019 8:13 AM TERRAZZO INSTALLER 1 table t Given 11/01/2019 8:36 PM TERRAZZO INSTALLER 1 tablet Given 11/01/2019 8:46 AM TERRAZZO INSTALLER 1 tablet senna (SENOKOT) tablet 2 tablet 2 tablet, oral, 2 times daily, First dose (after last modification) on Thu11/02/19 at 2100, If able to swallow medications. Hold for diarrhea., Indications: constipationIndications:constipation Given 11/04/2019 8:51 AM TERRAZZO INSTALLER 2 table ts Given 11/03/2019 8:53 PM TERRAZZO INSTALLER 2 tablets Given 11/03/2019 8:43 AM TERRAZZO INSTALLER 2 tablets sodium chloride 0.9% flush 0.5-20 mL 0.5-20 mL, intra-catheter, Every 8 hours scheduled, First dose on Thu10/31/19 at 2200, Flush volume based on line type and size. , Indications: FlushingIndications:Flushing Given 11/04/2019 6:11 AM TERRAZZO INSTALLER 10 mL Given 11/03/2019 9:01 PM TERRAZZO INSTALLER 10 mL Given 11/03/2019 4:11 PM TERRAZZO INSTALLER 10 mL documented in this encounter Discontinued Medications Medication Sig Discontinue Reason Start Date End Da te senna-docusate (Senna Plus) 8.6-50 mg Take 1-2 tablets by mouth 2 (two) times a day as needed for constipation Reorder 10/27/2019 11/04/2019 carvediloL (COREG) 12.5 mg tablet Take 1 tablet (12.5 mg total) by mouth 2 (two) times a day Stop Taking at Discharge 10/27/2019 11/04/2019 oxyCODONE (ROXICODONE) 5 mg immediate release tabletIndications:Pa in Take 1 tablet (5 mg total) by mouth every 3 (three) hours as needed for pain Stop Taking at Discharge 10/27/2019 11/04/2019 documented as of this encounter Active and Recently Administered Medications Times are shown in TERRAZZO INSTALLER. Scheduled Medication Order 11/02/2019 11/03/2019 11/04/2019 amLODIPine (NORVASC) tablet 10 mg 10 mg, oral, Daily, First dose on Thu11/01/19 at 0900 0813 (Given - Provider: Jonas Mckeon RN) 0843 (Given - Provider: Johnny Peterson, SENG) 0851 (Given - Provider: Daron Hill, SENG) aspirin tablet 325 mg 325 mg, oral, Daily, First dose on Thu10/31/19 at 1915 0813 (Given - Provider: Jonas Mckeon RN) 0843 (Given - Provider: Johnny Peterson, SENG) 0851 (Given - Provider: Daron Hill, SENG) atorvastatin (LIPITOR) tablet 80 mg 80 mg, oral, Nightly, First dose on Thu10/31/19 at 2100 2057 (Given - Provider: Kenia Dominguez RN) 2052 (Given - Provider: Grisel Wang RN) buPROPion XL (WELLBUTRIN XL) 24 hour tablet 150 mg 150 mg, oral, Daily, First dose on Thu10/31/19 at 1915, Do not crush, chew, cut, dissolve, open or otherwise manipulate tablet/capsule. 0813 (Given - Provider: Jonas Mckeon RN) 0843 (Given - Provider: Johnny Peterson, SENG) 0851 (Given - Provider: Daron Hill, RN) carvediloL (COREG) tablet 25 mg 25 mg, oral, 2 times daily, First dose (after last modification) on Thu11/01/19 at 0900, Hold for HR <60 SBP <100 0813 (Given - Provider: Jonas Mckeon RN)2100 (Given - Provider: Kenia Dominguez RN) 0842 (Given - Provider: Johnny Peterson, SENG)2053 (Given - Provider: Grisel Wang RN) 0853 (Given - Provider: Daron Hill, RN) cefdinir (OMNICEF) capsule 300 mg 300 mg, oral, 2 times daily, First dose (after last modification) on Thu11/04/19 at 1200, Indications: Urinary Tract/Genitourinary Infection 1200 (Due) cefTRIAXone (ROCEPHIN) 1,000 mg/10 mL in sterile water (premix) 1,000 mg (COMPLETED) 1,000 mg, intravenous, at 120 mL/hr, Administer over 5 Minutes, Every 24 hours scheduled, First dose on Thu11/01/19 at 0745, For 4 doses, Indications: Urinary Tract/Genitourinary Infection 0814 (New Bag - Provider: Jonas Mckeon RN)0830 (Stopped - Provider: Jonas Mckeon RN) 0843 (New Bag - Provider: Johnny Peterson RN) 0929 (New Bag - Provider: Daron Hill, RN) cetirizine (ZyrTEC) tablet 10 mg 10 mg, oral, Daily, First dose on Thu10/31/19 at 1915 0813 (Given - Provider: Jonas Mckeon RN) 0843 (Given - Provider: Johnny Peterson RN) 0851 (Given - Provider: Daron Hill, RN) docusate sodium (COLACE) capsule 100 mg(Linked Group 1) 100 mg, oral, 2 times daily, First dose on Thu10/31/19 at 2100, If able to swallow medications. Hold for diarrhea. , Indications: constipation 0813 (Given - Provider: Jonas Mckeon RN)2100 (Not Given - Provider: Kenia Dominguez RN - Reason: Patient/family refused) 0842 (Given - Provider: Johnny Peterson RN)2052 (Given - Provider: Grisel Wang RN) 0853 (Given - Provider: Daron Hill, RN) dronabinoL (MARINOL) capsule 2.5 mg () 2.5 mg, oral, 2 times daily, First dose on Thu11/01/19 at 1415, For 2 days 08 (Given - Provider: Jonas Mckeon RN)2057 (Not Given - Provider: Kenia Dominguez RN - Reason: Patient/family refused) heparin 5,000 unit/mL injection 5,000 Units 5,000 Units, subcutaneous, Every 8 hours scheduled, First dose on Thu10/31/19 at 2200, Indications: Deep Vein Thrombosis Prevention 0606 (Given - Provider: Emmie Rodarte RN)1430 (Given - Provider: Jonas Mckeon RN)2100 (Given - Provider: Kenia Dominguez RN) 0524 (Given - Provider: Kenia Dominguez RN)1447 (Given - Provider: Johnny Peterson RN)2053 (Given - Provider: Grisel Wang RN) 0611 (Given - Provider: Grisel Wang RN) hydroCHLOROthiazide (HYDRODIURIL) tablet 25 mg 25 mg, oral, Daily, First dose on Thu11/01/19 at 1130 0813 (Given - Provider: Jonas Mckeon RN) 0843 (Given - Provider: Johnny Peterson, SENG) 0857 (Given - Provider: Daron Hill, SENG) lidocaine (LIDODERM) 5 % patch 1 patch 1 patch, transdermal, Administer over 12 Hours, Daily, First dose on Thu10/31/19 at 1900, For 26 days, Do not cover the holes on the top side of the patch., Apply to affected area: back, chest 0649 (Canceled Entry - Provider: Emmie Rodarte RN)2101 (Medication Applied - Provider: Kenia Dominguez RN) 0845 (Medication Removed - Provider: Johnny Peterson RN)2100 (Medication Applied - Provider: Grisel Wang RN) 928 (Medication Removed - Provider: Daron Hill, RN) lisinopriL (PRINIVIL,ZESTRIL) tablet 10 mg 10 mg, oral, Daily, First dose (after last modification) on Thu11/04/19 at 0900, Hold for HR <60 SBP <100 0851 (Given - Provider: Daron Hill, RN) lisinopriL (PRINIVIL,ZESTRIL) tablet 5 mg (CANCELED) 5 mg, oral, Daily, First dose on Thu11/02/19 at 1200, Hold for HR <60 SBP <100 1221 (Given - Provider: Jonas Mckeon RN) 0842 (Given - Provider: Johnny Peterson RN) lisinopriL (PRINIVIL,ZESTRIL) tablet 5 mg (COMPLETED) 5 mg, oral, Once, On Thu11/03/19 at 1200, For 1 dose 1136 (Given - Provider: Meenu Vincent RN) montelukast (SINGULAIR) tablet 10 mg 10 mg, oral, Nightly, First dose on Thu10/31/19 at 2100 210 (Given - Provider: Kenia Dominguez RN) 2053 (Given - Provider: Grisel Wang RN) polyethylene glycol (MIRALAX) packet 17 g 17 g, oral, Daily, First dose (after last modification) on Thu11/01/19 at 0915, Hold for diarrhea, Indications: constipation 0821 (Given - Provider: Jonas Mckeon RN) 0843 (Given - Provider: Johnny Peterson RN) 0857 (Given - Provider: Daron Hill RN) senna (SENOKOT) tablet 1 tablet (CANCELED) 1 tablet, oral, 2 times daily, First dose on Thu10/31/19 at 2100, If able to swallow medications. Hold for diarrhea., Indications: constipation 0813 (Given - Provider: Jonas Mckeon RN) senna (SENOKOT) tablet 2 tablet(Linked Group 2) 2 tablet, oral, 2 times daily, First dose (after last modification) on Thu11/02/19 at 2100, If able to swallow medications. Hold for diarrhea., Indications: constipation 2101 (Not Given - Provider: Kenia Dominguez RN - Reason: Patient/family refused) 0843 (Given - Provider: Johnny Peterson RN)2052 (Given - Provider: Grisel Wang RN) 0851 (Given - Provider: Daron Hill RN) sodium chloride 0.9% flush 0.5-20 mL 0.5-20 mL, intra-catheter, Every 8 hours scheduled, First dose on Thu10/31/19 at 2200, Flush volume based on line type and size. , Indications: Flushing 0631 (Canceled Entry - Provider: Emmie Rodarte RN)1431 (Given - Provider: Jonas Mckeon RN)210 (Given - Provider: Kenia Dominguez RN) 0524 (Given - Provider: Kenia Dominguez RN)1611 (Given - Provider: Annemarie Stephen RN)210 (Given - Provider: Grisel Wang RN) 0611 (Given - Provider: Grisel Wang RN) PRN Medication Order 11/02/2019 11/03/2019 11/04/2019 acetaminophen (TYLENOL) tablet 1,000 mg 1,000 mg, oral, Every 6 hours PRN, 1st line for pain, Starting on Thu11/01/19 at 0208 0606 (Given - Provider: Emmie Rodarte RN)1434 (Given - Provider: Jonas Mckeon RN - Comment: medication pocket only had one left)2100 (Given - Provider: Kenia Dominguez RN) 0524 (Given - Provider: Kenia Dominguez RN)1141 (Given - Provider: Meenu Vincent RN) [facility]: Grisel Wang [facility])0651 (Given - Provider: Grisel Wang RN) bisacodyL (DULCOLAX) suppository 10 mg 10 mg, rectal, Daily PRN, constipation, Starting on Thu11/03/19 at 0906, Indications: constipation camphor-menthol (SARNA) 0.5-0.5 % lotion topical, Every 6 hours PRN, irritation, itching, dry skin, Starting on Thu10/31/19 at 1844, Apply to affected area: back, chest hydrALAZINE (APRESOLINE) injection 10 mg 10 mg, intravenous, Administer over 2 Minutes, Every 2 hours PRN, high blood pressure, Starting on Thu11/02/19 at 1530, Indications: hypertension 1620 (Given - Provider: Johnny Peterson RN) 2330 (Given - Provider: Grisel Wang RN) oxyCODONE (ROXICODONE) tablet 5 mg 5 mg, oral, Every 4 hours PRN, 2nd line for pain, Starting on Thu11/01/19 at 0918, Indications: Pain 0813 (Given - Provider: Jonas Mckeon RN)1430 (Given - Provider: Jonas Mckeon RN)1946 (Given - Provider: Johnny Peterson RN) 0016 (Given - Provider: Kenia Dominguez RN)0636 (Given - Provider: Kenia Dominguez RN)1112 (Given - Provider: Johnny Peterson RN)1611 (Given - Provider: Annemarie Stephen RN)2054 (Given - Provider: Grisel Wang RN) 0115 (Given - Provider: Grisel Wang RN)0611 (Given - Provider: Grisel Wang RN) Linked Groups Order Group 1: docusate sodium (COLACE) capsule 100 mgJump to med 100 mg, oral, 2 times daily, First dose on Thu10/31/19 at 2100, If able to swallow medications. Hold for diarrhea. , Indications: constipation Or docusate (COLACE) 10 mg/mL oral liquid 100 mg (CANCELED) 100 mg, feeding tube, 2 times daily, First dose on Thu10/31/19 at 2100, If taking meds per tube. Hold for diarrhea., Indications: constipation Group 2: senna (SENOKOT) tablet 2 tabletJump to med 2 tablet, oral, 2 times daily, First dose (after last modification) on Thu11/02/19 at 2100, If able to swallow medications. Hold for diarrhea., Indications: constipation documented in this encounter Orders Medications Ordered That Chris ht Not Have Been Administered Count Last Ordered Date First Ordered Date cefdinir (OMNICEF) capsule 300 mg 2 020 cephalexin (KEFLEX) capsule 500 mg 1 2019 bisacodyL (DULCOLAX) suppository 10 mg 1 camphor-menthol (SARNA) 0.5-0.5 % lotion 1 10/31/2019 carvediloL (COREG) tablet 12.5 mg 1 020 dextrose 5% and sodium chlor izabella 0.45% with potassium chloride 20 mEq/L infusion (premix) 1 10/31/2019 docusate (COLACE) 10 mg/mL o ral liquid 100 mg 1 10/31/2019 heparin 5,000 unit/mL inject ion 5,000 Units 1 10/31/2019 ondansetron ODT (ZOFRAN-ODT) disintegrating tablet 4 mg 1 10/31/2019 polyethylene glycol (MIRALAX) packet 17 g 1 10/31/2019 senna 1.76 mg/mL syrup 8.8 mg 1 10/31/2019 senna-docusate (PERICOLACE) 8.6-50 mg per tablet 1 tablet 1 10/31/2019 sodium chloride 0.9% flush 0.5-20 mL 1 10/09 Lab Orders Without Results Count Last Ordered D ate First Ordered Date POCT GLUCOSE DEVICE 1 11/04/2019 General Supply Count Last Ordered Date First Or dered Date CEFERINO TP700 1 11/01/2019 Diet Count Last Ordered Date First Orde red Date ADULT DISCHARGE DIET 1 11/04/2019 Nursing Count Last Ordered Date First Orde red Date DISCHARGE ACTIVITY 4 11/04/2019 DISCHARGE CALL PROVIDER 3 11/04/2019 DISCHARGE DRESSING 5 11/04/2019 DISCHARGE INSTRUCTIONS 1 11/04/[address] SEQUENTIAL COMPRESSION DEVICE 1 10/31 Consult Count Last Ordered Date First Orde red Date IP CONSULT TO NEUROLOGY 1 10/31/2019 IP CONSULT TO VASCULAR SURGERY 1 10/31/2019 CORE MEASURES Count Last Ordered Date First Ord ered Date REASON FOR NO VTE PROPHYLAXI S - HOSPITAL ADMISSION - MEDICATIONS 1 10/31/2019 ADT Patient Update Count Last Ordered Date Firs t Ordered Date ED IP DECISION TO ADMIT 1 10/31/2019 documented in this encounter Care Teams Gear Changer Relationship Specialty Start Date End Date Abbe Nails MD [address] [place] [address] PCP - General 10/17/19 11/01/19 Abbe Nails MD [address] [place] [address] PCP - General 11/03/19 06/30/22 Zachary Giron MD Surgeon Vascular Surgery 10/12/19 Azar Lara MD [address] [place] [address] Surgeon Cardiothoracic Surgery 10/27/19 documented as of this encounter
--- OUTSIDE RECORDS SUMMARY | 2024-09-08 08:24 | XMS_ITS | Encounter Summary ---
[facility] Address [address] [place] [address] Phone Care Team Providers Care Real Estate Transaction Manager Name Role Phone Abbe Nails MD Primary Care Provider [phone] Nanci Trujillo MD Unavailable Abbe Nails MD Primary Care Provider [phone] Azar Lara MD Unavailable Abbe Nails MD Primary Care Provider [phone] Reason for Visit * Reason Onset Date Comments New Patient 10/13/2019 Encounter Details Date Type Department Care Team (Late st Contact Info) Description 10/13/2019 Telephone [facility] [address]th [place] [address] [place] [address] Westley Orozco New Patient Social History Tobacco Use Types Packs/Day Years Used Date Smoking Tobacco: Former Cigarettes Smokeless Tobacco: Never Alcohol Use Standard Drinks/Week Comments Yes 0 (1 standard drink = 0.6 oz pur e alcohol) Comments Unknown Sex and Gender Information Value Date Recorded Sex Assigned at Not on file Legal Sex Female 3:40 AM REVIEW SPECIALIST Gender Identity Not on file Sexual Orientation Not on file documented as of this encounter Miscellaneous Notes * Telephone Encounter - Westley Orozco - 10/13/2019 9:27 AM CST What ins do you carry/spec billing? [facility] Diagnosis/Reason for Appointment: CARDIAC CLEARANCE Best Contact Number for Patient: [phone] Who: Primary Care Physician: ABBE NAILS Phone: Referring Physician: NANCI TRUJILLO Phone: If Referring MD is not PCP, list specialty: VAS SURGERY Yes No If yes, who, phone, when & where? Have you ever seen a Health Services Rn in an office setting? [x] [] DE. FABIANA ERWIN LAST SEEN 3M AGO IF YES: Are you planning on transferring care to a [place] MD or are you looking for a second opinion onyour current diagnosis? [] 2nd Opinion (Appts will be CX if records not received 48hrs prior to appt) [x]Transferring Care to Congenital Patients Only Date and location of last echo: Dr. Tiffany Travis Patients OnlyHemodialysis or peritoneal dialysis need referral from MD (DO NOT SCHEDULE) Date and location of last renal ultrasound (with doppler or duplex scan): Date and location of last Abd CT Angiogram or Abd MR Angiogram (looks at adrenal glands or blood flow to kidneys): Date and location of last 24-hour Blood Pressure Monitor: Most recent lab work (BMP, Lipids): Patient History Questions Yes No Where/When/Notes Have you ever been diagnosed with or have you ever undergone treatments for cancer? [] [x] If 'Yes', Schedule first available with Dept: 170; Team: Oncology Cardiology If yes, when and where? [] [] Have you been hospitalized at [facility] within the last 3 years? [x] [] 10/13/2019 If yes, did you see a Health Services Rn while hospitalized? [] [x] Have you EVER been hospitalized for ANY cardiac issue? [] [x] Have you ever had an EKG? [x] [] [facility] 10/10/2019 Have you ever had a stress test? [] [x] Have you ever had an echo? [x] [] [facility] 3 YEARS AGO Have you ever worn a heart monitor at home? [x] [] 05/2019 ORDERED BY [facility] Have you ever had a Cardiac Cath? [x] [] 3 YEARS AGO [facility] Have you ever had a Cardiac Surgery (including ablations, cardioversions, CABG, etc.)? [] [x] Have you ever had a sleep study? [] [x] Do you have a device? If yes what type? (Pacemaker, Defibrillator, Implanted Loop Recorder) [] [x] If yes, where and when was device put in? Manager Landscape? ([employer], [employer], [employer]) FEMALE PTS: Were any of the tests/procedures completed under a different (maiden) name? If yes, what was it? NO Notes: Appointment Date: 11/11/2019 Type: NEW Provider: RICH Location: [facility] [x] Confirm appt date, time, provider and location. [x] Advise pt to arrive 15- 20 min early (30 forKENROY Travis). [x] Advise patient to bring medications/list, photo ID and insurance card [x] Advise of New PatientPacket being mailed to them. [] Inform ref MD Office to fax cardiac related records. EW SPECIALIST documented in this encounter Plan of Treatment Not on file documented as of this encounter Visit Diagnoses Not on filedocumented in this encounter Care Teams Real Estate Transaction Manager Relationship Specialty Start Date End Date Abbe Nails MD [address] [place] [address] PCP - General 12/05/16 10/13/19 Abbe Nails MD [address] [place] [address] PCP - General 10/17/19 11/01/19 Abbe Nails MD [address] [place] [address] PCP - General 11/03/19 06/30/22 Nanci Trujillo MD [address] [place] [address] Surgeon Vascular Surgery 10/12/19 Azar Lara MD [address] [place] [address] Surgeon Cardiothoracic Surgery 10/27/19 documented as of this encounter
--- OUTSIDE RECORDS SUMMARY | 2024-09-08 08:24 | XMS_ITS | Encounter Summary ---
Author Organization [facility] Address [address] [place] [address] Phone Care Team Providers Care Green Tire Inspector Name Role Phone Zachary Giron MD Unavailable [phone] Abbe Nails MD Primary Care Provider [phone] Reason for Visit * Neurology (Routine) - Closed Specialty Diagnoses / Procedures Referred By Khadijah t Referred To Contact Sleep Medicine / Neurology Diagnoses 6mo; DR. ARREDONDO PT; Procedures RETURN Abbe Nails MD [address] [place] [address] Phone: tel: fax: Cedric Lawson MD [address] [place] [address] Phone: tel: fax: Referral ID Status Reason Start Date Expiration Date Visits Re quested Visits Authorized [id number] Closed 10/14/2019 04/24/2021 1 1 Encounter Details Date Type Department Care Team (Late st Contact Info) Description 10/14/2019 11:30 AM TREER Office Visit [facility] Stroke [address] [place] [address] Cedric Lawson MD [address] [place] [address] (work) History of bihemispheric arterial ischemic stroke (Primary Dx); Essential hypertension; Dyslipidemia Social History Tobacco Use Types Packs/Day Years Used Date Smoking Tobacco: Former Cigarettes Smokeless Tobacco: Never Alcohol Use Standard Drinks/Week Comments Yes 0 (1 standard drink = 0.6 oz pur e alcohol) Comments Unknown Sex and Gender Information Value Date Recorded Sex Assigned at Not on file Legal Sex Female 3:40 AM TREER Gender Identity Not on file Sexual Orientation Not on file documented as of this encounter Last Filed Vital Signs Vital Sign Reading Time Taken Comments Blood Pressure 184/69 10/14/2019 10:50 AM TREER Pulse 58 10/14/2019 10:50 AM TREER Temperature - - Respiratory Rate - - Oxygen Saturation - - Inhaled Oxygen Concentration - - Weight 85.5 kg (188 lb 9.6 oz) 10/14/2019 10:50 AM TREER Height 170.2 cm (5' 7 ) 10/14/2019 10:50 AM TREER Body Mass Index 29.54 10/14/2019 10:50 AM TREER documented in this encounter Patient Instructions * Patient Instructions* Cedric Lawson MD - 10/14/2019 11:30 AM TREER -From the stroke standpoint you should continue at least one of Aspiring and Plavix, however you should continue both of them as long as your vascular surgeon and/or gunite nozzle operator wants. -Continue the same dose of the Atorvastatin (Lipitor). -When taking your blood pressure in the future, take it from both arms. -You will see and get a nerve conduction study. -You are scheduled to see a gunite nozzle operator 3-4 weeks from now. R R documented in this encounter Ordered Prescriptions Prescription Sig Dispense Quantity Refills Last Filled Start Date End Date ondansetron (ZOFRAN) 4 mg tablet Take 1 tablet (4 mg total) by mouth every 8 (eight) hours as needed for nausea or vomiting 10 tablet 10/14/2019 0 documented in this encounter Progress Notes * Cedric Lawson MD - 10/14/2019 11:30 AM CST Patient Name: SUMA SAENZ Medical Record Number (MRN): [id number] Date of (): 1945 Encounter Date: 10/14/2019 Chief Complaint Suma Saenz is a 73 y.o. female seen today for a routine six-month follow-up. HPI 73-year-old female, right-handed, past medical history of hypertension, multiple intracranial and extracranial atherosclerotic disease, iatrogenic bihemispheric strokes and orthostatic hypotension. This is a patient who presented for a six-month follow-up, she has a complicated history of vascular disease involving innominate artery, extracranial and intracranial vasculature. She has been complaining of recurrent episodes of lightheadedness, imbalance and near syncopal episodes. The most recent 1 was last week when she was admitted to the hospital. She previously saw a vascular surgeon who offered her a surgical intervention however she was hesitant to accepted at the time. The description of her multiple events is hard to decide if they were related to her extensive atherosclerotic disease which makes a steal phenomena potential responsible for her events, however several symptoms that presented during these events like cold sweats, blurred vision and lightheadedness, in addition to bradycardia during the last event might be secondary to an underlying undiagnosed cardiologic pathology. At the current time she is waiting to see a gunite nozzle operator after 3 weeks, the plan for her last admission as to get her [facility]. Also General Neurology saw the patient and there is a plan to get an outpatient nerve conduction study and electromyography to rule out neuropathy as a cause of some of her symptoms. In 2016 she had a four-vessel angiogram which was complicated with a bihemispheric multifocal ischemic strokes, she suffered from expressive aphasia/word-finding difficulty for about 3 weeks, currently she recovers from the symptoms. Allergies Allergen Reactions ??? Naproxen Rash ??? Nsaids (Non-Steroidal Anti-Inflammatory Drug) Hives ??? Penicillins Rash ??? Sulfa (Sulfonamide Antibiotics) Rash Current Outpatient Medications Medication Sig Dispense Refill ??? aspirin 325 mg tablet take 1 tablet by oral route every day 0 0 ??? atenoloL (TENORMIN) 50 mg tablet Take 1 tablet (50 mg total) by mouth daily 30 tablet 0 ??? atorvastatin (LIPITOR) 80 mg tablet take 1 tablet by oral route every day 0 0 ??? biotin-keratin (BIOTIN PLUS KERATIN) 10,000-100 mcg-mg tablet 0 0 ??? buPROPion XL (WELLBUTRIN XL) 150 mg 24 hr tablet take 1 tablet by oral route 2 times every day 0 0 ??? cetirizine (ZyrTEC) 10 mg tablet take 1 tablet by oral route every day 0 0 ??? clopidogrel (PLAVIX) 75 mg tablet take 1 tablet by oral route every day 0 0 ??? diphenhydrAMINE-acetaminophen (TYLENOL PM EXTRA STRENGTH) 25-500 mg tablet take 2 tablet by oral route every day at bedtime 0 0 ??? doxycycline (ADOXA) 50 mg tablet Take 50 mg by mouth 2 (two) times a day. ??? doxycycline hyclate (VIBRAMYCIN) 50 mg capsule ??? hydroCHLOROthiazide (HYDRODIURIL) 25 mg tablet Take 25 mg by mouth daily ??? montelukast (SINGULAIR) 10 mg tablet take 1 tablet by oral route every day in the evening 0 0 ??? senna-docusate (SENNA PLUS) 8.6-50 mg take 2 tablet by oral route every day 0 0 ??? ondansetron (ZOFRAN) 4 mg tablet Take 1 tablet (4 mg total) by mouth every 8 (eight) hours as needed for nausea or vomiting 10 tablet 0 ??? salmon oil-omega-3 fatty acids (SALMON OIL-1000) 1,000-200 mg capsule (Patient not taking: Reported on 10/14/2019) 0 0 No current facility-administered medications for this visit. Patient Active Problem List Diagnosis ??? Vertebral artery compression syndrome ??? Dizziness ??? Stenosis of brachiocephalic artery (CMS/HCC) ??? Adiposity ??? Benign hypertension ??? Heart murmur ??? Non-specific colitis ??? Tobacco dependence in remission ??? Orthostatic hypotension ??? Mitral valve insufficiency ??? Carotid artery disease (CMS/HCC) ??? Dyslipidemia ??? Aortic valve insufficiency ??? Vertebrobasilar insufficiency ??? Stenosis of carotid artery ??? History of ischemic left MCA stroke ??? Labile hypertension ??? Syncope and collapse Past Medical History: Diagnosis Date ??? Degenerative disc disease at L5-S1 level ??? Ischemic embolic stroke (CMS/HCC) 07/04/2016 Cerebrovascular accident (CVA) due to embolism of cerebral artery No past surgical history on file. Family History Problem Relation Age of Onset ??? Stroke Father Stroke; ??? Heart disease Father Family history of cardiac disorder - (Added by TW Conv) ??? Heart disease Mother Heart disease; /Family history of cardiac disorder - (Added by TW Conv) Social History Socioeconomic History ??? Marital status: Spouse name: Not on file ??? Number of children: Not on file ??? Years of education: Not on file ??? Highest education level: Not on file Occupational History ??? Not on file Social Needs ??? Financial resource strain: Not on file ??? Food insecurity: Worry: Not on file Inability: Not on file ??? Transportation needs: Medical: Not on file Non-medical: Not on file Tobacco Use ??? Smoking status: Former Smoker Types: Cigarettes ??? Smokeless tobacco: Never Used Substance and Sexual Activity ??? Alcohol use: Yes ??? Drug use: Never ??? Sexual activity: Defer Lifestyle ??? Physical activity: Days per week: Not on file Minutes per session: Not on file ??? Stress: Not on file Relationships ??? Social connections: Talks on phone: Not on file Gets together: Not on file Attends adventist service: Not on file Active member of club or organization: Not on file Attends meetings of clubs or organizations: Not on file Relationship status: Not on file ??? Intimate partner violence: Fear of current or ex partner: Not on file Emotionally abused: Not on file Physically abused: Not on file Forced sexual activity: Not on file Other Topics Concern ??? Not on file Social History Narrative Occasional alcohol use : (Added by TW Conv) Vital Signs Vitals: 10/14/19 1050 BP: (!) 184/69 BP Location: Left arm Patient Position: Sitting Pulse: 58 Weight: 85.5 kg (188 lb 9.6 oz) Height: 170.2 cm (5' 7 ) Review of Systems Review of Systems Constitutional: Negative for chills and fever. HENT: Negative for hearing loss. Eyes: Negative for blurred vision and double vision. Cardiovascular: Negative for chest pain and palpitations. Gastrointestinal: Positive for nausea. Negative for abdominal pain and vomiting. Musculoskeletal: Negative for falls. Neurological: Negative for dizziness, focal weakness and headaches. Physical Exam Physical Exam Constitutional: She is oriented to person, place, and time and well-developed, well-nourished, and in no distress. HENT: Head: Normocephalic and atraumatic. Eyes: Conjunctivae and EOM are normal. Neck: Normal range of motion. Musculoskeletal: Normal range of motion. General: No edema. Neurological: She is oriented to person, place, and time. She has normal strength. Gait normal. Reflex Scores: Bicep reflexes are 2+ on the right side and 2+ on the left side. Patellar reflexes are 2+ on the right side and 2+ on the left side. Psychiatric: Her speech is normal. Neurologic Exam Mental Status Oriented to person, place, and time. Speech: speech is normal Level of consciousness: alert Cranial Nerves CN II Visual corcoran full to confrontation. CN III, IV, Extraocular motions are normal. CN III: no CN III palsy CN : no CN palsy CN VII Facial expression full, symmetric. Motor Exam Strength Strength 5/5 throughout. Sensory Exam Light touch normal. Gait, Coordination, and Reflexes Gait Gait: normal Reflexes Right biceps: 2+ Left biceps: 2+ Right patellar: 2+ Left patellar: 2+ Assessment/Plan Diagnosis Plan 1. History of bihemispheric arterial ischemic stroke 2. Atherosclerotic cerebrovascular disease 3. Essential hypertension 4. Near syncope Impression and plan: 1) Bihemispheric arterial ischemic strokes in 2016 were iatrogenic following a diagnostic angiogram - Continue at least a single antiplatelet agent (the patient is on dual antiplatelet therapy for her vascular surgeon) - Continue atorvastatin 80 mg daily 2) Recurrent episodes of near syncope, lightheadedness, visual change and imbalance are difficult to decide if they are secondary to her extensive atherosclerotic disease which might be causing a steal phenomena that is contributing to her symptoms versus an undiagnosed underlying cardiogenic pathol ogy - The patient is seeing a gunite nozzle operator in the next 3-4 weeks and there is initial plan to get her at left heart catheterization for further investigations - The patient is scheduled for a NCS/EMG to rule out neuropathy - The patient is following with vascular surgery and there is a possibility of a surgical intervention 3) Atherosclerotic disease as shown on previous Four vessel angiogram: Severe stenosis of the brachiocephalic trunk and left common carotid origin 50% stenosis of the right ICA 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 Future Appointments Date Time Provider Department Center 11/11/2019 1:30 PM Mati Anders MD [facility] Cardiology Thank you for allowing me to participate in the care of your patient. Sincerely, Cedric Torres MD Cosigned by Rylan Arredondo MD at 10/23/2019 4:31 PM TREER R R Associated attestation - Rylan Arredondo MD - 10/23/2019 4:31 PM TREER I have seen and examined the patient. I agree with the findings and plan of care as discussed with the resident/fellow. documented in this encounter Miscellaneous Notes * Addendum Note - Rylan Arredondo MD - 10/14/2019 11:30 AM CSTAddended by: RYLAN ARREDONDO on: 10/23/2019 04:37 PM Modules accepted: Level of Service R documented in this encounter Plan of Treatment Not on file documented as of this encounter Visit Diagnoses Diagnosis History of bihemispheric arterial ischemic stroke- Primary Transient ischemic attack (TIA), and cerebral infarction without residual deficits Essential hypertension Unspecified essential hypertension Dyslipidemia Other and unspecified hyperlipidemia documented in this encounter Historical Medications * This list may reflect changes made after this encounter. hydroCHLOROthiazi de (HYDRODIURIL) 25 mg tabletIndications :hypertension Take 1 tablet (25 mg total) by mouth every morning doxycycline hyclate (VIBRAMYCIN) 50 mg capsule 10/05/2019 10/18/2019 added in this encounter Care Teams Green Tire Inspector Relationship Specialty Start Date End Date Abbe Nails MD [address] [address] PCP - General 10/17/19 11/01/19 Zachary Giron MD Surgeon Vascular Surgery 10/12/19 documented as of this encounter
--- OUTSIDE RECORDS SUMMARY | 2024-09-08 08:24 | XMS_ITS | Encounter Summary ---
Author Organization [facility] Address [address] [place] [address] Phone Care Team Providers Care Collateral Clerk Name Role Phone Abbe Nails MD Primary Care Provider [phone] Zachary Giron MD Unavailable Encounter Details Date Type Department Care Team (Late st Contact Info) Description 10/13/2019 Documentation [facility] Cardiology [address] [place] [id number] Sultana Puckett Social History Tobacco Use Types Packs/Day Years Used Date Smoking Tobacco: Former Cigarettes Smokeless Tobacco: Never Alcohol Use Standard Drinks/Week Comments Yes 0 (1 standard drink = 0.6 oz pur e alcohol) Comments Unknown Sex and Gender Information Value Date Recorded Sex Assigned at Not on file Legal Sex Female 3:40 AM CROWD CONTROLLER Gender Identity Not on file Sexual Orientation Not on file documented as of this encounter Progress Notes * Sultana Puckett - 10/13/2019 10:44 AM CST Request for Medical Records To: Abbe Nails MD Attn: Medical Records From: Sultana Kim Requesting Physician: Mati Anders MD Patient Name: Suma Saenz : 1945 Medical Records requested to facilitate treatment of our patient listed above. We are requesting: All heart-related records Physician Notes EKG Event and/or Holter Monitor with strips Blood Work Requested records are needed by: as soon as possible for continuation of care. Please fax records to [phone]. Please mail CD's to Nyasia Baez, [address], [facility] [address]- Attention: Sultana Kim According to HIPAA regulation, a signed patient request for release of information is NOT required WHEN the request is for TREATMENT or BILLING of a patient. Any and all assistance in returning the requested information in a timely fashion would be appreciated and would assist in expediting patientcare. If the manager pool of your medical records department has any questions, please contact Kayla Singer at for clarification or the [email or web address] web site (HIPAA Protecting Privacy of Patient Health Information Act 12/20/04 Div of Procedural Enforcement Codes). D CONTROLLER documented in this encounter Plan of Treatment Not on file documented as of this encounter Visit Diagnoses Not on filedocumented in this encounter Care Teams Collateral Clerk Relationship Specialty Start Date End Date Abbe Nails MD [address] [address] PCP - General 12/05/16 10/13/19 Zachary Giron MD [address] [place] [address] Surgeon Vascular Surgery 10/12/19 documented as of this encounter
--- OUTSIDE RECORDS SUMMARY | 2024-09-08 08:24 | XMS_ITS | Encounter Summary ---
Author Organization [facility] Healthcare Address [address] [place] [address] Care Team Providers Care [employer]ent [employer] Manager Name Role Phone Nanci Giron MD Unavailable Abbe Nails MD Primary Care Provider Encounter Details Date Type Department Care Team (Late st Contact Info) Description 10/18/2019 9:48 AM SCRAP IRON CUTTER - 10/18/2019 11:18 AM SCRAP IRON CUTTER Surgery [facility] [address] [place] [address] Jd Sinha MD [address] [address] LEFT HEART CATHETERIZATION WITH CORONARY ANGIOGRAPHY AND WITH OR WITHOUT LEFT VENTRICULOGRAM [id number] Surgery Details Date/Time Status Location OR Service Patient Class Case Class Case Type Trauma Case? 10/18/2019 9:48 AM Posted [facility] CARDIAC MARINE SPECIALIST CCL 03 Cardiovascular Inpatient Urgent - 24 hours Panel 1 Procedure LRB Anes Op Region Wound Class Comments LEFT HEART CATHETERIZATION W ITH CORONARY ANGIOGRAPHY AND WITH OR WITHOUT LEFT VENTRICULOGRAM 38405 Left Choice Surgeon Surgeon Role Service Panel Jd Sinha MD Primary Cardiovascular 1 Murphy Mendoza MD PhD Fellow Cardiovascular 1 Zack Overton MD PhD Fellow Cardiovascula r 1 documented in this encounter Social History Tobacco Use Types Packs/Day Years Used Date Smoking Tobacco: Former Cigarettes Smokeless Tobacco: Never Alcohol Use Standard Drinks/Week Comments Yes 0 (1 standard drink = 0.6 oz pur e alcohol) Comments Unknown Sex and Gender Information Value Date Recorded Sex Assigned at Not on file Legal Sex Female 3:40 AM SCRAP IRON CUTTER Gender Identity Not on file Sexual Orientation Not on file documented as of this encounter Last Filed Vital Signs Vital Sign Reading Time Taken Comments Blood Pressure 168/74 10/18/2019 10:01 AM SCRAP IRON CUTTER Pulse 53 10/18/2019 10:01 AM SCRAP IRON CUTTER Temperature 36 ??C (96.8 ??F) 10/18/2019 9:10 AM SCRAP IRON CUTTER Respiratory Rate 13 10/18/2019 10:01 AM SCRAP IRON CUTTER Oxygen Saturation 97% 10/18/2019 10:01 AM SCRAP IRON CUTTER Inhaled Oxygen Concentration - - Weight 88.5 kg (195 lb) 10/18/2019 8:50 AM SCRAP IRON CUTTER Height 170.2 cm (5' 7 ) 10/18/2019 9:10 AM SCRAP IRON CUTTER Body Mass Index 30.59 10/22/2019 5:00 AM SCRAP IRON CUTTER documented in this encounter Discharge Summaries * Annemarie Lynne NP - 10/18/2019 2:26 PM CST Inpatient Discharge Summary BRIEF OVERVIEW Admitting Provider: Nanci Giron MD Discharge Provider: Nanci Giron MD Primary Care Physician at Discharge: Abbe Nails MD [phone] Admission Date: 10/17/2019 Discharge Date: 10/27/2019 Admission Location: [facility] Primary Discharge Diagnosis: Syncopal Episodes Secondary [...] patient was followed by Dr Giron at [facility] so requested transfer of the patient for further management given her recurrent symptoms and known occlusion. The patient was accepted for transfer and [place] the [address] [address] in stable condition. ?? Of note, [...] removed by home health in 2 weeks. [facility] [phone] Please call for date and time of [...] Cardiology 04/13/2020 11:30 AM Rianna Arredondo MD [facility] 6C Contact Information for Follow-ups Abbe Nails MD Specialty: Family Medicine Relationship: PCP - General [address] [facility] [address] Next Steps: Follow up [facility] Home Care Services Specialty: Home Health and Hospice [address] [place] [address] Next Steps: Follow up Questions: Service Line: [...] Surgery, General Surgery Relationship: Surgeon [address] [place] [address] Next Steps: Follow up Instructions: You will need a 4 week follow up. If you have questions or concerns or haven't received your appointment in 1 week, please call [phone]. Questions: Instructions for follow-up (appointment date and time): You will need a 4 week follow up. If you have questions or concerns or haven't received your appointment in 1 week, please call [phone]. To provider: NANCI GIRON Process Instructions: The follow up with provider order should be used to give patients instructions to follow up with an established provider. A referral order should be placed to instruct patients to follow up with a new, non- established provider. If you can???t find the provider, please use: MISCELLANEOUS, NOTINFILE and put the name in the comments. Azar Ramírez MD Specialty: Cardiothoracic Surgery, General Surgery, Thoracic Surgery Relationship: Surgeon [address] [place] [address] Next Steps: Follow up Instructions: Dr. Ramírez's office will schedule you a follow up. IF you have not heard from them, their number is [phone]. Questions: To provider: AZAR RAMÍREZ Instructions for follow-up (appointment date and time): Dr. Ramírez's office will schedule you a follow up. IF you have not heard from them, their number is [phone]. Process Instructions: The follow up with provider order should be used to give patients instructions to follow up with an established provider. A referral order should be placed to instruct patients to follow up with a new, non- established provider. If you can???t find the provider, please use: MISCELLANEOUS, NOTINFILE and put the name in the comments. Cosigned by Nanci Giron MD at 10/27/2019 11:10 AM SCRAP IRON CUTTER P IRON CUTTER P IRON CUTTER Associated attestation - Nanci Giron MD - 10/27/2019 11:10 AM SCRAP IRON CUTTER I have seen and examined the patient on 10/27/19. I agree with the findings and plan of care with the following modifications:I saw the patient on 7500. She has recovered nicely from her surgery. Palpable radial pulses bilaterally. No neurologic symptoms, no headaches. Her incisions are clean and intact. She will be discharged home today on daily aspirin 325 mg. We will plan to have her follow upin 1 month with noninvasive studies. .. documented in this encounter Discharge Instructions * Appointments* Nilda Sanchez RN - 10/26/2019 2:30 PM SCRAP IRON CUTTER This is the earliest appointment with your PCP, Please bring discharge paperwork with list of medicines, insurance card and photo ID to appointment. Please arrive at least 15 minutes early prior to appointment. If you are unable to keep this appointment, it is very important you call to reschedule. P IRON CUTTER * Discharge Instr - Other Orders* Nilda Sanchez RN - 10/26/2019 3:57 PM SCRAP IRON CUTTER [facility] [phone] Please call for date and time of visit if you do not hear from them within 48 hours of d/c. P IRON CUTTER P IRON CUTTER documented in this encounter Medications at Time [...] Agency Information Home Care Agency Type #1: [facility] Home Care Agency Name [facility] Home Care Agency Contact Spoken to [facility] Order Faxed to [phone] Discharge Additional Assistance Does the patient need [...] appointment made. Nurse to instruct ond/c orders. P IRON CUTTER * Araseli Dow RD - 10/26/2019 10:48 AM CST Nutrition Assessment [...] of Weight Used for Estimated Protein : [place] Protein Needs Based on g/k.1 Total Protein [...] Chol Diet effective now Question Answer Comment ([facility]) Diet type Restricted Fat / Sodium Restriction: [...] and Evaluation: Labs, Weight changes, PO intake Araseli Victor M, MS RDN, LD - [phone] P IRON CUTTER * Annemarie Lynne NP - 10/26/2019 8:41 AM CST Vascular Surgery Daily Progress Patient Name/MRN: Suma Saenz [id number] Treatment Team: Vascular Surgery- Pager: [phone] Attending: Nanci Giron MD Today's Date: 10/26/2019 Room/Bed: [id number] Admit Date: 10/17/2019 Code Status: Full Code Subjective Chief complaint: Syncopal episodes Events During This Hospitalization: 10/17 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 10/18: LHC with clean coronaries. 10/19: Rt groin PSA [...] tablet 1,000 mg 1,000 mg oral Q6H [facility] Jayce Alvarez MD 1,000 mg at 10/26/19 [...] Jayce Alvarez MD 2.5 mg at 10/25/19 171 ??? heparin 5,000 unit/mL injection 5,000 Units 5,000 Units subcutaneous Q8H [facility] Jayce Alvarez MD 5,000 Units at 10/26/19 0509 ??? lidocaine (LIDODERM) 5 % patch 1 patch 1 patch transdermal Daily Jayce Alvarez MD Stopped at 10/25/19 2100 ??? montelukast (SINGULAIR) tablet 10 mg 10 mg oral Nightly Jayce Alvarez MD 10 mg at 10/25/192046 ??? ondansetron (ZOFRAN) injection 4 mg 4 mg intravenous Q4H PRN Jayce Alvarez MD 4 mg at 10/25/192336 ??? oxyCODONE (ROXICODONE) tablet 5 mg 5 mg oral Q3H PRN Jayce Alvarez MD 5 mg at 10/26/19 0509 ??? polyethylene glycol (MIRALAX) packet 17 g 17 g oral BID Jayce Alvarez MD 17 g at 10/24/192052 ??? senna (SENOKOT) tablet 1 tablet 1 tablet oral Daily PRN Annemarie Lynne NP ??? sodium chloride 0.9% flush 0.5-20 mL 0.5-20 mL intra-catheter Q8H [facility] Jayce Alvarez MD 10 mL at 10/25/19 [...] Max: 99 % Most Recent : Vitals: 10/26/19 0752 BP: (!) 134/44 Pulse: 82 Resp: [...] Nanci Giron MD at 10/26/2019 9:44 AM SCRAP IRON CUTTER P IRON CUTTER P IRON CUTTER Associated attestation - Nanci Giron MD - 10/26/2019 9:44 AM SCRAP IRON CUTTER I have seen and examined the patient on 10/26/19. I agree with the findings and plan of care with the following modifications:she looks great. She will continue daily aspirin work with physical therapy. This will give us a sense of what assistance she will require at discharge, and whether she can be discharged home or to a bridge facility with senior living care... * Milly Sykes NP - 10/25/2019 2:19 PM CST Vascular Surgery Accept note Patient Name/MRN: Suma Saenz [id number] Treatment Team: Vascular Surgery- Pager: [phone] Attending: Nanci Giron MD Today's Date: 10/25/2019 Room/Bed: [id number] Admit Date: 10/17/2019 Code Status: Full Code [...] tablet 1,000 mg 1,000 mg oral Q6H [facility] Montserrat Quinteros NP 1,000 mg at 10/25/19 [...] injection 5,000 Units 5,000 Units subcutaneous Q8H [facility] Mario House MD 5,000 Units at 10/25/19 [...] flush 0.5-20 mL 0.5-20 mL intra-catheter Q8H [facility] Mario House MD 10 mL at 10/25/19421 [...] 97 % Most Recent : Vitals: 10/25/19 1145 BP: Pulse: 74 Resp: 22 Temp: SpO2: [...] temporary on nicardipine gtt -10/25: Transferred to [facility] -PT/OT to evaluate, recommendations appreciated # Right groin ecchymosis: - 10/19 Right groin ultrasound negative for PSA and hematoma. -10/25 Fading ecchymosis ?? #Benign hypertension - Allow permissive hypertension, ideally 160 to 180. - BP control improved. - Continue Coreg, increase as needed. - PRN labetalol for SBP over 200 Cosigned by Nanci Giron MD at 10/26/2019 8:18 AM SCRAP IRON CUTTER P IRON CUTTER P IRON CUTTER Associated attestation - Nanci Giron MD - 10/26/2019 8:18 AM SCRAP IRON CUTTER I have seen and examined the patient on 10/25/2019. I agree with the findings and plan of care as documented in the resident's/fellow's note. * Mario Leiva MD - 10/25/2019 6:37 AM CST Vascular Surgery Daily Progress Patient Name/MRN: Suma Saenz [id number] Treatment Team: Vascular Surgery- Phone Attending: Nanci Giron MD Today's Date: 10/25/2019 Room/Bed: [id number] Admit Date: 10/17/2019 Code Status: Full Code [...] tablet 1,000 mg 1,000 mg oral Q6H [facility] Mario House MD 1,000 mg at 10/25/19 0426 Or ??? acetaminophen (TYLENOL) 32 mg/mL oral solution 1,000 mg 1,000 mg feeding tube Q6H [facility] Mario House MD Or ??? acetaminophen (TYLENOL) suppository 650 mg 650 mg rectal Q6H [facility] Mario House MD ??? aspirin tablet 325 mg 325 mg oral Daily Mario House MD 325 mg at 10/24/19 1001 ??? atorvastatin (LIPITOR) tablet 80 mg 80 [...] Q15 Min PRN Mario House MD ??? docusate sodium (COLACE) capsule 100 [...] injection 5,000 Units 5,000 Units subcutaneous Q8H [facility] Mario House MD 5,000 Units at 10/25/19 0528 ??? insulin lispro (HumaLOG) injection 1-3 Units 1-3 Units subcutaneous Q4H [facility] Mario House MD 1 Units at 10/23/19 [...] flush 0.5-20 mL 0.5-20 mL intra-catheter Q8H [facility] Mario House MD 10 mL at 10/25/192 ??? sodium chloride 0.9% flush 0.5-20 mL 0.5-20 mL intra-catheter PRN Mario House MD 10mL at 10/21/192125 ??? sodium chloride 0.9% infusion 6 mL/hr intravenous Continuous Gasper Salgado MD 3 mL/hr at10/24/191899 3 mL/hr at 10/24/19 190 Objective Vitals: 24hr Min/Max: Temp Min: 36.3 [...] Nanci Giron MD at 10/25/2019 9:54 AM SCRAP IRON CUTTER P IRON CUTTER P IRON CUTTER Associated attestation - Nanci Giron MD - 10/25/2019 9:54 AM SCRAP IRON CUTTER I have seen and examined the patient [...] ?? Laboratory data: Recent Labs Lab Units 10/24/19 0135 10/22/19 2350 10/22/19 1137 WBC K/cumm 10.0* 15.8* 15.1* HEMOGLOBIN g/dL 8.0* 9.2* 10.1* HEMATOCRIT % 23.0* 26.9* 29.8* PLATELETS K/cumm 151 169 207 Recent Labs Lab Units 10/24/19 1729 10/24/19 0135 10/22/19 2350 SODIUM mmol/L 129* 131* 133* POTASSIUM [...] Michael Marcelo MD at 10/25/2019 11:06 AM SCRAP IRON CUTTER P IRON CUTTER P IRON CUTTER Associated attestation - Michael Marcelo MD - 10/25/2019 11:06 AM SCRAP IRON CUTTER Attending Documentation: I have seen and examined this critically ill patient on the day of service. I have reviewed and confirmed the history, physical exam, laboratory and radiologic data with the house staff as documentedin the ICU Resident note. I have reviewed and discussed my treatment plan with the ICU team and other medical/consultant intern staff, making frequent assessments and decisions regarding [...] Patterson MD Resident Physician Department of Anesthesiology [facility] [place] Cosigned by Hudson Frye MD at 10/24/2019 9:56 PM SCRAP IRON CUTTER P IRON CUTTER P IRON CUTTER Associated attestation - Hudson Frye MD - 10/24/2019 9:56 PM SCRAP IRON CUTTER I have seen and examined the patient on 10/24/19. I agree with the findings and plan of care as documented in the resident's/fellow's note and as discussed with the resident/fellow.. * Mario Lieva MD - 10/24/2019 8:30 AM CST Vascular Surgery Daily Progress Patient Name/MRN: Suma Saenz [id number] Treatment Team: Vascular Surgery- Phone Attending: Nanci Giron MD Today's Date: 10/24/2019 Room/Bed: [id number] Admit Date: 10/17/2019 Code Status: Full Code [...] tablet 1,000 mg 1,000 mg oral Q6H [facility] Mario House MD 1,000 mg at 10/24/19 0606 Or ??? acetaminophen (TYLENOL) 32 mg/mL oral solution 1,000 mg 1,000 mg feeding tube Q6H [facility] Mario House MD Or ??? acetaminophen (TYLENOL) suppository 650 mg 650 mg rectal Q6H [facility] Mario House MD ??? aspirin tablet 325 mg 325 mg oral Daily Mario House MD 325 mg at 10/23/19 0855 ??? atorvastatin (LIPITOR) tablet 80 mg 80 mg oral Nightly Mario House MD 80 mg at 10/23/19 2120 ??? buPROPion XL (WELLBUTRIN XL) 24 hour tablet 150 mg 150 mg oral Daily Mario oHuse MD150 mg at 10/23/19 0855 ??? camphor-menthol [...] injection 5,000 Units 5,000 Units subcutaneous Q8H [facility] Mario House MD 5,000 Units at 10/24/19 0606 ??? insulin lispro (HumaLOG) injection 1-3 Units 1-3 Units subcutaneous Q4H [facility] Mario House MD 1 Units at 10/23/19 [...] REID Mario House MD 10 mL at 10/24/19 [...] 8.5 - 10.3 mg/dL Magnesium Collection Time: 02/17/20 1:35 AM Result Value Ref Range Magnesium [...] Nanci Giron MD at 10/24/2019 4:41 PM SCRAP IRON CUTTER P IRON CUTTER P IRON CUTTER P IRON CUTTER Associated attestation - Nanci Giron MD - 10/24/2019 4:41 PM SCRAP IRON CUTTER I have seen and examined the patient [...] ?? Laboratory data: Recent Labs Lab Units 10/22/19 2350 10/22/19 1137 10/22/19 0124 WBC K/cumm 15.8* 15.1* 10.3* HEMOGLOBIN g/dL 9.2* 10.1* 10.3* HEMATOCRIT % 26.9* 29.8* 30.2* PLATELETS K/cumm 169 207 154 Recent Labs Lab Units 10/22/19 2350 10/22/19 0124 10/21/19 1729 SODIUM mmol/L 133* 139 [...] Michael Marcelo MD at 10/24/2019 12:48 PM SCRAP IRON CUTTER P IRON CUTTER P IRON CUTTER Associated attestation - Michael Marcelo MD - 10/24/2019 12:48 PM SCRAP IRON CUTTER Attending Documentation: I have seen and examined this critically ill patient on the day of service. I have reviewed and confirmed the history, physical exam, laboratory and radiologic data with the house staff as documentedin the ICU Resident note. I have reviewed and discussed my treatment plan with the ICU team and other medical/consultant intern staff, making frequent assessments and decisions regarding [...] Successfully extubated 10/21 P.M., continue q1h neurovasc checks- no signs [...] Surgery Daily Progress Patient Name/MRN: Suma Saenz [id number] Treatment Team: Vascular Surgery- Attending: Nanci Giron MD Today's Date: 10/23/2019 Room/Bed: [id number] Admit Date: 10/17/2019 Code Status: Full Code [...] tablet 1,000 mg 1,000 mg oral Q6H [facility] Mario House MD 1,000 mg at 10/23/19 0621 Or ??? acetaminophen (TYLENOL) 32 mg/mL oral solution 1,000 mg 1,000 mg feeding tube Q6H [facility] Mario House MD Or ??? acetaminophen (TYLENOL) suppository 650 mg 650 mg rectal Q6H [facility] Mario House MD ??? aspirin tablet 325 [...] injection 5,000 Units 5,000 Units subcutaneous Q8H [facility] Mario House MD 5,000 Units at 10/23/19 0621 ??? insulin lispro (HumaLOG) injection 1-3 Units 1-3 Units subcutaneous Q4H [facility] Mario House MD 1 Units at 10/22/19 1159 ??? Lactated Ringer's (LR) infusion 30 mL/hr intravenous Continuous Gasper Salgado MD 20 mL/hr at 10/23/19 0700 20 mL/hr at 10/23/19 0700 ??? lidocaine in dextrose 5% 2 g/250 mL (8 mg/mL) infusion (premix) 0.75 mg/kg/hr ([place]uda) intravenous Continuous Mario House MD 5.78 mL/hr [...] 91% I/O last 2 completed shifts: In: 4.6 [P.O.:800; I.V.:1284.6] Out: 1215 [Urine:885; Chest Tube:330] [...] Zeyad Leger MD Fellow, Vascular/Endovascular Surgery Pager: [phone] Cosigned by Nanci Giron MD at 10/23/2019 1:54 PM SCRAP IRON CUTTER P IRON CUTTER P IRON CUTTER * Micah Glover MD - 10/23/2019 7:35 [...] 3.8. Received 3.76 mg of hydromoprhone via HEALTH PSYCHOLOGIST in 24h. Reports moderate pain control on current regimen. Denied any parestheaias, tinnitus, perioral numbness, metallic taste. Current Analgesic Regimen Acetaminophen 1000 mg q6h Lidocaine infusion @ 1 mg/kg/hr Hydromorphone HEALTH PSYCHOLOGIST (0.2 mg, 10 min LO) Scheduled Medications: [...] 20 mL/hr (10/23/19 0700) lidocaine, 0.75 mg/kg/hr ([place]), Last Rate: 0.75 mg/kg/hr (10/23/19 0310) niCARdipine, [...] call the pain pager. -Recommend transition d/c HEALTH PSYCHOLOGIST and start oxycodone 5-10 mg q3h prn. This plan was discussed with the attending pain physician. Thank you for allowing us to participatein the care of this patient. We will continue to follow. -- Micah Glover MD Resident Physician Department of Anesthesiology [facility] [place] Cosigned by Mati Leon MD at 10/23/2019 10:08 AM SCRAP IRON CUTTER P IRON CUTTER P IRON CUTTER Associated attestation - Mati Leon MD - 10/23/2019 10:08 AM SCRAP IRON CUTTER I have seen and examined the patient [...] No more hallucinations, pain well controlled on HEALTH PSYCHOLOGIST + lido drip Objective Medications: Scheduled Meds:acetaminophen, [...] Rate: 20 mL/hr (10/22/192099) lidocaine, 0.75 mg/kg/hr ([place]), Last Rate: 0.75 mg/kg/hr (10/22/192099) niCARdipine, 0.5-2.5 mcg/kg/min, Last Rate: 0.5 mcg/kg/min (10/22/192124) norepinephrine, 0.01-2 mcg/kg/min, Last Rate: Stopped (10/22/19 [...] pain Assessment & Plan - APAP sched, HEALTH PSYCHOLOGIST 0.2 q10m, lido gtt Vertebrobasilar artery insufficiency [...] Michael Marcelo MD at 10/23/2019 11:11 AM SCRAP IRON CUTTER P IRON CUTTER P IRON CUTTER Associated attestation - Michael Marcelo MD - 10/23/2019 11:11 AM SCRAP IRON CUTTER Attending Documentation: I have seen and examined this critically ill patient on the day of service. I have reviewed and confirmed the history, physical exam, laboratory and radiologic data with the house staff as documentedin the ICU Resident note. I have reviewed and discussed my treatment plan with the ICU team and other medical/consultant intern staff, making frequent assessments and decisions regarding [...] Surgery Daily Progress Patient Name/MRN: Suma Saenz [id number] Treatment Team: Vascular Surgery- Attending: Nanci Giron MD Today's Date: 10/22/2019 Room/Bed: [id number] Admit Date: 10/17/2019 Code Status: Full Code [...] tablet 1,000 mg 1,000 mg oral Q6H [facility] Mario House MD 1,000 mg at 10/22/19 0543 Or ??? acetaminophen (TYLENOL) 32 mg/mL oral solution 1,000 mg 1,000 mg feeding tube Q6H [facility] Mario House MD Or ??? acetaminophen (TYLENOL) suppository 650 mg 650 mg rectal Q6H [facility] Mario House MD ??? aspirin tablet 325 [...] injection 5,000 Units 5,000 Units subcutaneous Q8H [facility] Mario House MD ??? HYDROmorphone in 0.9% sodium chloride (DILAUDID) 20 mg/100 mL (0.2 mg/mL) infusion (premix) intravenous Continuous Mario House MD ??? insulin lispro (HumaLOG) injection 1-3 Units 1-3 Units subcutaneous Q4H [facility] Mario House MD ??? Lactated Ringer's (LR) infusion 30 mL/hr intravenous Continuous Gasper Salgado MD 30 mL/hr at 10/22/19 0700 30 mL/hr at 10/22/19 0700 ??? lidocaine in dextrose 5% 2 g/250 mL (8 mg/mL) infusion (premix) 1.5 mg/kg/hr ([place]) intravenous Continuous Gasper Salgado MD 11.55 mL/hr at 10/22/19 0700 1.5 mg/kg/hr at 10/22/19 0700 ??? naloxone [...] PM Result Value Ref Range Product code [id number] Unit Number [id number] Product Blood Type OPOS Dispense Status PRESUMED [...] [address] and [address] surg care Zeyad Leger MD Fellow, Vascular/Endovascular Surgery Pager: [phone] Cosigned by Nanci Giron MD at 10/23/2019 1:54 PM SCRAP IRON CUTTER P IRON CUTTER P IRON CUTTER * Gasper Salgado MD - 10/22/2019 12:52 [...] intra-catheter, Q8H REID Continuous Infusions:lidocaine, 1.5 mg/kg/hr ([place]) niCARdipine, 0.5-2.5 mcg/kg/min, Last Rate: 2.5 mcg/kg/min [...] -- Cardiac Rhythm: Normal sinus rhythm (10/22 0000) Pacer Mode: -- Physical exam: General: Obese [...] Laboratory data: Recent Labs Lab Units 10/21/19 22210/21/19 17210/21/19 1551 10/20/19 230 WBC K/cumm 10.4* 13.8* -- -- 5.9 HEMOGLOBIN, POC g/dL -- -- 10.8* < > -- HEMOGLOBIN g/dL 10.3* 7.1* -- -- 12.4 HEMATOCRIT % 30.7* 21.8* -- -- 38.0 HEMATOCRIT POC % -- -- 32.0* < > -- PLATELETS K/cumm 144* 144* -- -- 231 < > = values in this interval not displayed. Recent Labs Lab Units 10/21/19172810/20/19 23010/20/19 0036 SODIUM mmol/L 139 136 138 POTASSIUM PLASMA mmol/L 4.3 4.2 4.0 CHLORIDE mmol/L 113* 103 105 CO2 mmol/L 21* 21* 24 BUN SERUM mg/dL 13 15 19 CREATININE mg/dL 0.77 0.83 0.85 CALCIUM mg/dL 8.3* 9.6 9.0 Recent Labs Lab Units 10/21/19 17210/18/19 0102 PROTIME (PT) sec 15.6* 11.2 INR 1.4* 1.0 APTT sec 27 33 Recent Labs Lab Units 10/21/19 1847 10/21/19172810/21/19 1551 PH ART 7.34* 7.33* 7.27* PCO2 [...] Currently on nicardipine gtt @ 2.5 on 215 A.M. for SBP <120 Cosigned by Michael Marcelo MD at 10/22/2019 12:06 PM SCRAP IRON CUTTER P IRON CUTTER P IRON CUTTER Associated attestation - Michael Marcelo MD - 10/22/2019 12:06 PM SCRAP IRON CUTTER Attending Documentation: I have seen and examined this critically ill patient on the day of service. I have reviewed and confirmed the history, physical exam, laboratory and radiologic data with the house staff as documentedin the ICU Resident note. 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 10/18 [facility] with clean coronaries. 10/19: Rt groin PSA [...] Overton MD PhD 650 mg at 10/19/19 1936 ??? aspirin tablet 325 mg 325 mg oral Daily Zack Overton MD PhD 325 mg at 10/19/19926 ??? atorvastatin (LIPITOR) tablet 80 mg 80 mg oral Nightly Zack Overton MD PhD 80 mg at 10/19/192146 ??? buPROPion XL (WELLBUTRIN XL) 24 hour tablet 150 mg 150 mg oral Daily Zack Overton MD [id number] mg at 10/19/19926 ??? carvediloL (COREG) tablet 12.5 mg 12.5 mg oral BID Annemarie Lynne, NAKIA 12.5 mg at 02/12/20 2147 ??? cetirizine (ZyrTEC) tablet 10 mg 10 mg oral Nightly Zack Overton MD PhD 10 mg at 10/19/192146 ??? doxycycline monohydrate (ADOXA) tablet 50 mg 50 mg oral BID Zack Overton MD PhD 50 mg at10/19/192146 ??? heparin 5,000 unit/mL injection 5,000 Units 5,000 Units subcutaneous Q8H [facility] Annemarie Lynne, NAKIA 5,000 Units at 10/20/19 0029 ??? hydroCHLOROthiazide (HYDRODIURIL) tablet 25 mg 25 mg oral Daily Zack Overton MD PhD 25 mg at 10/19/19 09 ??? labetalol (NORMODYNE,TRANDATE) injection 10 mg 10 mg intravenous Q4H PRN Annemarie Lynne NP ??? montelukast (SINGULAIR) tablet 10 mg 10 mg oral Nightly Zack Overton MD PhD 10 mg at 10/19/192146 ??? polyethylene glycol (MIRALAX) packet 17 g 17 g oral Daily Annemarie Lynne NP 17 g at 10/19/19 1743 ??? senna-docusate (PERICOLACE) 8.6-50 mg per tablet 2 tablet 2 tablet oral BID PRN Zack Overton MD PhD 2 tablet at 10/19/19 1225 ??? sodium chloride 0.9% flush 0.5-20 mL 0.5-20 mL intra-catheter Q8H [facility] Zack Overton MD PhD 10 mL at [...] Patient will need innomminate artery bypass - C with clean coronaries. - continue home ASA, [...] Nanci Giron MD at 10/20/2019 10:03 AM SCRAP IRON CUTTER P IRON CUTTER P IRON CUTTER Associated attestation - Nanci Giron MD - 10/20/2019 10:03 AM SCRAP IRON CUTTER I have seen and examined the patient on 10/20/19. I agree with the findings and plan of care with the following modifications:She remains stable. OR scheduled for tomorrow with Dr. Ramírez... 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 10/18 [facility] with clean coronaries. Events Over [...] 150 mg oral Daily Zack Overton MD [id number] mg at 10/19/19926 ??? carvediloL (COREG) tablet [...] injection 5,000 Units 5,000 Units subcutaneous Q8H [facility] Zack Overton MD PhD 5,000 Units at [...] flush 0.5-20 mL 0.5-20 mL intra-catheter Q8H [facility] Zack Overton MD PhD 10 mL at 10/19/19512 ??? sodium chloride 0.9% flush 0.5-20 mL 0.5-20 mL intra-catheter PRN Zack Overton MD PhD Objective Vitals: 24hr Min/Max: Temp Min: 36.4 ??C (97.5 ??F) Max: 36.8 ??C (98.2 ??F) Pulse Min: 53 Max: 74 BP Min: 130/47 Max: 205/81 Resp Min: 10 Max: 35 SpO2 Min: 93 % Max: 98 % Most Recent : Vitals: 10/19/19712 BP: 155/56 Pulse: 57 Resp: 18 Temp: [...] Patient will need innomminate artery bypass - [facility] with clean coronaries. - continue [...] Nanci Giron MD at 10/20/2019 10:02 AM SCRAP IRON CUTTER P IRON CUTTER P IRON CUTTER Associated attestation - Nanci Giron MD - 10/20/2019 10:02 AM SCRAP IRON CUTTER I have seen and examined the patient [...] risks and wishes to proceed.. * Annemarie yLnne NP - 10/18/2019 3:53 PM CST Vascular Surgery Daily Progress Patient Name/MRN: Suma Saenz [id number] Treatment Team: Vascular Surgery- Pager: [phone] Attending: Nanci Giron MD Today's Date: 10/18/2019 Room/Bed: [id number] Admit Date: 10/17/2019 Code Status: Full Code [...] Zack Overton MD PhD 325 mg at 10/18/19827 ??? atenoloL (TENORMIN) tablet 50 mg 50 mg oral Daily Zack Overton MD PhD 50 mg at 10/18/19827 ??? atorvastatin (LIPITOR) tablet 80 mg 80 mg oral Nightly Zack Overton MD PhD 80 mg at 10/18/19 0124 ??? buPROPion XL (WELLBUTRIN XL) 24 hour tablet 150 mg 150 mg oral Daily Zack Overton MD [id number] mg at 10/18/19828 ??? cetirizine (ZyrTEC) tablet 10 mg 10 mg oral Nightly Zack Overton MD PhD ??? doxycycline monohydrate (ADOXA) tablet 50 mg 50 mg oral BID Zack Overton MD PhD 50 mg at10/18/19827 ??? heparin 5,000 unit/mL injection 5,000 Units 5,000 Units subcutaneous Q8H [facility] Zack Overton MD PhD Stopped at 10/18/19828 [...] EKG/Min 61 BPM Atrial Rate 61 BPM AK-Interval (MSEC) 178 ms QRS-Interval (MSEC) 108 ms QT-Interval (MSEC) 456 ms QTc 459 ms P [place] 51 degrees R [place] 12 degrees T [place] 16 degrees Diagnosis Normal sinus rhythm Minimal voltage criteria for LVH, may be normal variant Nonspecific ST abnormality Abnormal ECG When compared with ECG of 03-APR-2016 00:04, No significant change was found Confirmed by PAT CORRIGAN M.D ([id number]) on 10/18/2019 12:40:42 PM CBC without differential [...] Ansari MD PhD at 10/19/2019 12:30 PM SCRAP IRON CUTTER P IRON CUTTER P IRON CUTTER * Bindu Ayala RN - 10/18/2019 1:57 PM CST 10/18/19 1357 Information Information Obtained From Patient Referral Data Referral Source Self referral Referral Reason Discharge Planning Prior to Admission Primary Caregiver Self Support System Spouse/Significant Other Support system contact info (name, phone, availablity) Juice Saenz () [phone] Home Care Services No Durable Medical Equipment [...] Information obtained from: patient Insurance verified as: [facility] PCP verified as: Dr. Alexander in [facility] Transportation: per family Admission Source: non-healthcare facility Additional Information/Options Discussed: Verified demographic information from the face sheet withthe patient. 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 Denies the use of home health in the past - a list will be provided if recommended. global account manager to continue to follow for planning [...] for d/c planning and referrals as needed. P IRON CUTTER documented in this encounter H&P Notes * [...] Marcelo MD at 12/26/2019 3:16 PM CDT P IRON CUTTER P IRON CUTTER * Gisella Freedman MD - 10/17/2019 10:35 PM CST Vascular Surgery History and Physical Patient Name/MRN: Suma Saenz [id number] Treatment Team: Vascular Surgery- Pager: [phone] Attending: Nanci Giron MD Today's Date: 10/18/2019 Admitting Service: Vascular Admitting location: [id number] Admit Date: 10/17/2019 Code Status: Full Code [...] patient was followed by Dr Giron at [facility] so requested transfer of the patient for further management given her recurrent symptoms and known occlusion. The patient was accepted for transfer and arrived to the [address] [address]U in stable condition. Of note, the [...] injection 5,000 Units 5,000 Units subcutaneous Q8H [facility] Gisella Freedman MD 5,000 Units at 10/18/19 [...] flush 0.5-20 mL 0.5-20 mL intra-catheter Q8H [facility] Gisella Freedman MD 10 mL at 10/18/19 [...] Abbe Nails MD Primary Care Physician number: [phone] Review of Systems: Review of Systems Constitutional: [...] Nanci Giron MD at 10/19/2019 8:42 AM SCRAP IRON CUTTER P IRON CUTTER P IRON CUTTER Associated attestation - Nanci Giron MD - 10/19/2019 8:42 AM SCRAP IRON CUTTER I have seen and examined the patient [...] plan with the patient's team and other medical/consultant intern staff. This time was in addition to [...] spent time documenting in the medical record P IRON CUTTER * Michael Marcelo MD - 10/24/2019 12:48 PM CSTAssociated Order(s): [...] plan with the ICU team and other medical/consultant intern staff, making frequent assessments and decisions regarding [...] spent time documenting in the medical record P IRON CUTTER * Michael Marcelo MD - 10/23/2019 11:12 [...] plan with the ICU team and other medical/consultant intern staff, making frequent assessments and decisions regarding [...] spent time documenting in the medical record P IRON CUTTER * Michael Marcelo MD - 10/22/2019 12:06 [...] plan with the ICU team and other medical/consultant intern staff, making frequent assessments and decisions regarding [...] spent time documenting in the medical record P IRON CUTTER * Michela Gore RN - 10/18/2019 2:42 AM CST Vascular Access Nurse: Procedure Note Summary of treatment provided to patient today is as follows : . Bedside Procedure Time out/Checklist (last 4 hours) Pre-Op Checklist Row Name 10/17/19 2300 Patient Belongings at Bedside Belongings at Bedside Vision;Clothing;Electronic devices - Vision - Corrective Lenses Glasses - Clothing Pants;Footwear;Underpants - Patient Electronics Cell phone - Patient Belongings Given to Family Belongings Given to Family Jewelry;Money/credit card - Jewelry Ring;Watch - Money/credit card wallet - Patient Belongings Sent to Safe Belongings Sent to Safe None -CK Patient Medications Medications brought by patient? No -CK Patient/Chart Verification Advance Directive Patient has advance directive, copy not in chart -CK Advance Directive not in Chart Copy requested from family -CK User Ghosh (r) = Recorded By, (t) = Taken By, (c) = Cosigned By Initials Name Valdez Martinez RN Vascular Access Documentation (last 4 hours) [facility] Additional Procedures Row Name 10/18/19 0241 Procedures Line Type Peripheral -CB Time in 0240 -CB Time out 0250 -CB Time Calculation (min) 10 min -CB [...] By, (c) = Cosigned By Initials Name CB Michela Gore RN Plan: Follow up: Michela Gore RN P IRON CUTTER documented in this encounter Consult Notes * [...] due to vertbrobasilar occlusion, Obesity, CVA in 2015, diastolic dysfunction, chronic back pain and was [...] Rate: 30 mL/hr (10/22/19699) lidocaine, 1.5 mg/kg/hr ([place]), Last Rate: 1.5 mg/kg/hr (10/22/19699) niCARdipine, 0.5-2.5 [...] Innominate artery stenosis Relevant Orders Case Request Recreation Therapy Aide (Completed) Cardiac Catheterization (Completed) Vertebral artery compression syndrome - Primary Overview Vertebral artery insufficiency Relevant Orders Case Request Recreation Therapy Aide (Completed) Cardiac Catheterization (Completed) Vascular Surgery Procedure Vertebrobasilar artery insufficiency Overview Added automatically from request for surgery [id number] Current Assessment & Plan - S/p aorto [...] call the pain pager. -Agree with hydromorphone HEALTH PSYCHOLOGIST. Please keep HEALTH PSYCHOLOGIST for 24h and we will calculate MME's. -Recommend d/c oxycodone prn while on hydromorphone HEALTH PSYCHOLOGIST. Will transition to oxycodone likely in 24h. We will continue to follow. Thank you for allowing us to participate in the care of this patient -- Micah Glover M.D. Resident Physician Department of Anesthesiology [facility] in [place] Cosigned by Mati Leon MD at 10/22/2019 8:40 PM SCRAP IRON CUTTER P IRON CUTTER P IRON CUTTER Associated attestation - Mati Leon MD - 10/22/2019 8:40 PM SCRAP IRON CUTTER I have seen and examined the patient on 10/22/19. I agree with the findings and plan of care as documented in the resident's/fellow's note. 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 I reviewed her cardiac catheterization [...] regard to revascularization. Job ID/VF Job ID: [id number] P IRON CUTTER documented in this encounter Nursing Notes * Erlin Orozco RN - 10/21/2019 4:57 PM CST Patient arrival to [facility] via bed postop Aorto-Innominate bypass. Arrives intubated [...] exceptions noted per ICUcomplex assessment flow sheet. P IRON CUTTER * Sarah Velasco RN - 10/18/2019 2:50 PM CST Patient blood pressures elevated, most recent at 1445 is 189/53. Team notified. Stated they are ok with pressures in the 180s and to notify them if pressures are over 200. Will continue to monitor P IRON CUTTER documented in this encounter Miscellaneous Notes * [...] improve to fullest extent possible Outcome: Progressing P IRON CUTTER * Plan of Care - Mimi Mchugh [...] both pts amicable, frequent rounding on both. P IRON CUTTER * Plan of Care - Margaret García PTA - 10/26/2019 9:55 AM CST Problem: Mobility Goal: STG - Patient will ambulate Description: 200ft with LRAD and SBA, continuously Outcome: Progressing Problem: Transfers Goal: STG - Patient will transfer sit to and from stand Description: SBA with LRAD Outcome: Progressing P IRON CUTTER * Plan of Care - Nilda Sanchez [...] follow for planning and referrals as needed. P IRON CUTTER * Plan of Care - Johnny Peterson [...] improve to fullest extent possible Outcome: Progressing P IRON CUTTER * Plan of Mona - Erica Griffin RN - 10/26/2019 2:22 [...] weight bearing on arms/chest, stable vitals, tele P IRON CUTTER * Plan of Mona - Erlin Orozco [...] improve to fullest extent possible Outcome: Progressing P IRON CUTTER * Plan of Care - Aparna Gan RN - 10/25/2019 2:26 AM CST Goals: Clinical Goals for the Shift: Pain control, pulmonary hygiene, VSS Summary: Patient has had adequate pain control with oxycodone, able to take deep breathe and cough,VSS throughout entire shift P IRON CUTTER * Assessment & Plan Note - Mario House MD - 10/24/2019 11:46 PM SCRAP IRON CUTTER Associated Problem(s): Chronic back pain complicated by acute surgical pain - APAP sched, transitioned to PO oxy 10/23, dronabinol 2.5 BID AC - Patient uses THC at home for pain, dronabinol significantly improved symptoms. - Lidocaine drip discontinued 10/24 P IRON CUTTER P IRON CUTTER * Assessment & Plan Note - Mario House MD - 10/24/2019 11:45 PM SCRAP IRON CUTTER Associated Problem(s): Status post carotid surgery - S/P 10/21 aorta -> R axillary bypass and asc aorta + R + L common carotid bypass - Continue to monitor closely for signs of cerebral hyperperfusion syndrome - MAP >65 - No signs of headache or focal neurologic deficits P IRON CUTTER * Assessment & Plan Note - Mario House MD - 10/24/2019 11:45 PM SCRAP IRON CUTTER Associated Problem(s): Acute blood loss anemia - Hgb 7.1 -> 10.3 after 1U PRBC 10/21 - hgb stable since P IRON CUTTER P IRON CUTTER * Assessment & Plan Note - Mario House MD - 10/24/2019 11:44 PM SCRAP IRON CUTTER Associated Problem(s): Acute hypoxemic respiratory failure (HCC) (Resolved 11/01/2019) - Extubated on 10/21, transitioned to NC - Placed on Optiflow 10/23 (40L and 40% FiO2), goal SpO2 >92, weaned to NC on 10/24 Continue mobility and PAP treatments as necessary P IRON CUTTER P IRON CUTTER P IRON CUTTER P IRON CUTTER * Assessment & Plan Note - Mario House MD - 10/24/2019 11:43 PM SCRAP IRON CUTTER Associated Problem(s): Labile hypertension (Resolved 08/22/2024) Currently hypotensive but initially hypertensive in OR. Will likely need restarting of his anti-hypertensives once acute post surgical hemodynamics stabilize. - While standing 10/22 afternoon, became hpotensive -> started on levo transiently, sat down and off pressors and back on nicardipine - 10/23 Increased coreg to 25 BID for SBP <120 P IRON CUTTER P IRON CUTTER * Subjective & Objective - Mario House MD - 10/24/2019 11:[address] ICU Daily Progress Shifts: MD Shift [...] ?? Laboratory data: Recent Labs Lab Units 10/24/19 01310/22/19 2350 10/22/19 1137 WBC K/cumm 10.0* 15.8* 15.1* HEMOGLOBIN g/dL 8.0* 9.2* 10.1* HEMATOCRIT % 23.0* 26.9* 29.8* PLATELETS K/cumm 151 169 207 Recent Labs Lab Units 10/24/19 1729 10/24/19 0135 10/22/19 2350 SODIUM mmol/L 129* 131* 133* POTASSIUM [...] atelectasis and unchanged small left pleural effusion P IRON CUTTER P IRON CUTTER * Plan of Care - Angie Arrington [...] bronchial hygiene status and adjust treatment appropriately. P IRON CUTTER * Plan of Care - Yessi Hill RN - 10/24/2019 4:07 PM CST Patient transferred to 56U. Reviewed previous case management notes. Problem: Establish [...] follow for planning and referrals as needed. P IRON CUTTER * Plan of Care - Hawa Jean - 10/24/2019 3:05 PM CST Problem: Mobility Goal: STG - Patient will ambulate Description: 200ft with LRAD and SBA, continuously Outcome: Progressing Problem: Transfers Goal: STG - Patient will transfer sit to and from stand Description: SBA with LRAD Outcome: Progressing Cosigned by Zakiya Ceballos, PT at 10/24/2019 3:16 PM SCRAP IRON CUTTER P IRON CUTTER P IRON CUTTER * Plan of Care - Araseli Mckeon RN - 10/23/2019 11:11 PM SCRAP IRON CUTTER Problem: Lack of Knowledge: Goal: Ability to [...] 130. Pt's pain improving and pt sleeping. P IRON CUTTER * Assessment & Plan Note - Gasper Salgado MD - 10/23/2019 8:07 PM SCRAP IRON CUTTER Associated Problem(s): Acute hypoxemic respiratory failure (HCC) (Resolved 11/01/2019) - Extubated on 10/21, transitioned to NC - Placed on Optiflow 10/23 (40L and 40% FiO2), goal SpO2 >92 P IRON CUTTER * Subjective & Objective - Gasper Salgado MD - 10/23/2019 8:06 [address]ON [address]TER CT ICU Daily Progress Shifts: MD Shift [...] 207 154 Recent Labs Lab Units 10/22/19 2350 10/22/19 0124 10/21/19 1729 SODIUM mmol/L 133* 139 [...] atelectasis and unchanged small left pleural effusion P IRON CUTTER P IRON CUTTER P IRON CUTTER * Assessment & Plan Note - Gasper Salgado MD - 10/23/2019 8:06 PM SCRAP IRON CUTTER Associated Problem(s): Status post carotid surgery - S/P 10/21 aorta -> R axillary bypass and asc aorta + R + L common carotid bypass - Continue to monitor closely for signs of cerebral hyperperfusion syndrome - SBP <120 and MAP >65 - No signs of headache or focal neurologic deficits P IRON CUTTER P IRON CUTTER * Assessment & Plan Note - Gasper Salgado MD - 10/23/2019 8:05 PM SCRAP IRON CUTTER Associated Problem(s): Acute blood loss anemia - Hgb 7.1 -> 10.3 after 1U PRBC 10/21 - hgb stable on 10/22 P IRON CUTTER * Assessment & Plan Note - Gasper Salgado MD - 10/23/2019 8:04 PM SCRAP IRON CUTTER Associated Problem(s): Labile hypertension (Resolved 08/22/2024) Currently [...] coreg to 25 BID for SBP <120 P IRON CUTTER * Assessment & Plan Note - Gasper Salgado MD - 10/23/2019 8:04 PM SCRAP IRON CUTTER Associated Problem(s): Chronic back pain complicated by acute surgical pain - APAP sched, transitioned to PO oxy 10/23, dronabinol 2.5 BID AC, lido gtt - Patient uses THC at home for pain, dronabinol significantly improved symptoms. P IRON CUTTER * Plan of Care - Mandy Waddlel RN - 10/23/2019 5:07 PM CST Problem: [...] to verbalize feelings about condition will improve 10/23/2019 170 by Mandy Waddell [...] Goal: Understanding of discharge needs will improve 10/23/20191706 by Mandy Waddell RN Outcome: Progressing 10/23/2019 170 by Mandy Waddell RN Outcome: Progressing Problem: Activity: Goal: Mobility will improve 10/23/2019 170 by Mandy Waddell RN Outcome: Progressing 10/23/2019 170 by Mandy Waddell RN Outcome: Progressing Problem: Lack of Knowledge: Goal: Understanding of ways to prevent future skin breakdown will improve 10/23/20191706 by Mandy Waddell RN [...] a balanced intake and output will improve 10/23/20191706 by Mandy Waddell RN Outcome: Progressing 10/23/20191705 by Mandy Waddell RN Outcome: Progressing Problem: Skin Integrity: Goal: Risk for impaired skin integrity will decrease 10/23/20191706 by Mandy Waddell RN Outcome: Progressing 10/23/2019 170 by Mandy Waddell RN Outcome: Progressing Goal: Ability to demonstrate warm and dry skin will improve 10/23/2019 170 by Mandy Waddell RN Outcome: Progressing 10/23/20191705 by Mandy Waddell RN Outcome: Progressing Goal: Circulation will improve to fullest extent possible 10/23/20191706 by Mandy Waddell RN Outcome: Progressing 10/23/20191705 by Mandy Waddell RN Outcome: Progressing Goals: [...] no hypotension or dizziness noted. Will monitor. P IRON CUTTER * Plan of Care - Darryl Fernandez RRT - 10/23/2019 10:03 AM CST Pt tolerated EZPAP well; pt was able to achieved a pressure of 15 on 8L with IS of 800; will continue to do tx as scheduled P IRON CUTTER * Subjective & Objective - Gasper Salgado MD - 10/22/2019 9:[address] ICU Daily Progress Shifts: MD Shift [...] No more hallucinations, pain well controlled on HEALTH PSYCHOLOGIST + lido drip Objective Medications: Scheduled Meds:acetaminophen, [...] Rate: 20 mL/hr (10/22/192099) lidocaine, 0.75 mg/kg/hr ([place]), Last Rate: 0.75 mg/kg/hr (10/22/192099) niCARdipine, 0.5-2.5 mcg/kg/min, Last Rate: 0.5 mcg/kg/min (10/22/192124) norepinephrine, 0.01-2 mcg/kg/min, Last Rate: Stopped (10/22/19 [...] CXR: Stable atelectasis bilaterally with no pneumothorax. P IRON CUTTER * Assessment & Plan Note - Gasper Salgado MD - 10/22/2019 8:14 PM SCRAP IRON CUTTER Associated Problem(s): Acute blood loss anemia - Hgb 7.1 -> 10.3 after 1U PRBC 10/21 - hgb stable on 10/22 P IRON CUTTER * Assessment & Plan Note - Gasper Salgado MD - 10/22/2019 8:14 PM SCRAP IRON CUTTER Associated Problem(s): Chronic back pain complicated by acute surgical pain - APAP sched, HEALTH PSYCHOLOGIST 0.2 q10m, lido gtt P IRON CUTTER * Assessment & Plan Note - Gasper Salgado MD - 10/22/2019 8:10 PM SCRAP IRON CUTTER Associated Problem(s): Labile hypertension (Resolved 08/22/2024) Currently hypotensive but initially hypertensive in OR. Will likely need restarting of his anti-hypertensives once acute post surgical hemodynamics stabilize. - While standing 10/22 afternoon, became hpotensive -> started on levo transiently, sat down and off pressors and back on nicardipine - Currently on nicardipine gtt @ 0.5 on 10/22 P.M. for SBP <120 P IRON CUTTER * Assessment & Plan Note - Gasper Salgado MD - 10/22/2019 8:10 PM SCRAP IRON CUTTER Associated Problem(s): Vertebrobasilar artery insufficiency (Deleted) - [...] - Daily ASA - q1h Neurovascular checks P IRON CUTTER * Plan of Care - Darryl Fernandez, CARDIOVASCULAR OR NURSE - 10/22/2019 3:52 PM CST Pt tolerated EZPAP well; pt was able to achieve a pressure of 15 on 10L with IS of 750; will continue to do tx as scheduled P IRON CUTTER * Plan of Care - Suzi Zee PT - 10/22/2019 2:17 PM CST Problem: Mobility Goal: STG - Patient will ambulate Description 200ft with LRAD and SBA, continuously Outcome: Progressing Problem: Transfers Goal: STG - Patient will transfer sit to and from stand Description SBA with LRAD Outcome: Progressing P IRON CUTTER * Plan of Care - Ana Louis RN - 10/22/2019 11:53 AM CST Problem: [...] off, started levo, will not start antihypertensives P IRON CUTTER * Plan of Care - Wesley Flores RRT - 10/22/2019 6:19 AM CST Pt is Able to Self Administer. Acapella with RN or family member is also helpful P IRON CUTTER * Plan of Care - Margaret Johnston [...] Summary: Patient is progressing in all areas. P IRON CUTTER * Subjective & Objective - Gasper Salgado MD - 10/22/2019 12:49 [address] ICU Daily Progress Shifts: MD Shift [...] intra-catheter, Q8H REID Continuous Infusions:lidocaine, 1.5 mg/kg/hr ([place]) niCARdipine, 0.5-2.5 mcg/kg/min, Last Rate: 2.5 mcg/kg/min [...] Recent Labs Lab Units 10/21/19 2220 10/21/19 17210/21/19 1551 10/20/19 2302 WBC K/cumm 10.4* 13.8* -- -- 5.9 HEMOGLOBIN, POC g/dL -- -- 10.8* < > -- HEMOGLOBIN g/dL 10.3* 7.1* -- -- 12.4 HEMATOCRIT % 30.7* 21.8* -- -- 38.0 HEMATOCRIT POC % -- -- 32.0* < > -- PLATELETS K/cumm 144* 144* -- -- 231 < > = values in this interval not displayed. Recent Labs Lab Units 10/21/19 17210/20/19 2302 [...] BASE EXC ART mmol/L -5 -6 -- P IRON CUTTER P IRON CUTTER * Assessment & Plan Note - Gasper Salgado MD - 10/21/2019 11:05 PM SCRAP IRON CUTTER Associated Problem(s): Acute blood loss anemia - Hgb 7.1 -> 10.3 after 1U PRBC P IRON CUTTER * Assessment & Plan Note - Gasper Salgado MD - 10/21/2019 10:12 PM SCRAP IRON CUTTER Associated Problem(s): Chronic back pain complicated by acute surgical pain - APAP sched, 10 oxy q3h, dilaudid breakthrough pain, lido gtt P IRON CUTTER P IRON CUTTER * Assessment & Plan Note - Gasper Salgado MD - 10/21/2019 10:12 PM SCRAP IRON CUTTER Associated Problem(s): Labile hypertension (Resolved 08/22/2024) Currently hypotensive but initially hypertensive in OR. Will likely need restarting of his anti-hypertensives once acute post surgical hemodynamics stabilize. - Currently on nicardipine gtt @ 2.5 on 15 A.M. for SBP <120 P IRON CUTTER P IRON CUTTER * Assessment & Plan Note - Gasper Salgado MD - 10/21/2019 9:55 PM SCRAP IRON CUTTER Associated Problem(s): Vertebrobasilar artery insufficiency (Deleted) - [...] - Daily ASA - q1h Neurovascular checks P IRON CUTTER P IRON CUTTER * Plan of Care - Camron Coburn RRT - 10/21/2019 9:19 PM SCRAP IRON CUTTER Pt extubated at 1940 and placed on 3L NC with no distress. Will monitor remainderof the shift. P IRON CUTTER * Assessment & Plan Note - Mario House MD - 10/21/2019 8:48 PM SCRAP IRON CUTTER Associated Problem(s): Labile hypertension (Resolved 08/22/2024) Currently hypotensive but initially hypertensive in OR. Will likely need restarting of his anti-hypertensives once acute post surgical hemodynamics stabilize. P IRON CUTTER * Assessment & Plan Note - Mario House MD - 10/21/2019 8:47 PM SCRAP IRON CUTTER Associated Problem(s): Chronic back pain complicated by acute surgical pain Dilaudid PRN while intubated, will add scheduled acetaminophen and PRN oxycodone once extubated. P IRON CUTTER * Assessment & Plan Note - Mario House MD - 10/21/2019 8:43 PM SCRAP IRON CUTTER Associated Problem(s): Vertebrobasilar artery insufficiency (Deleted) S/p [...] head CT Daily ASA q1h Neurovascular checks P IRON CUTTER * Subjective & Objective - Mario House MD - 10/21/2019 6:16 PM [facility] IRON CUTTER CT ICU History and Physical Shifts: MD Shift Options: 8300 AM 1 Subjective Patient [...] significant pneumo or hemothorax. ETT properly placed. P IRON CUTTER P IRON CUTTER P IRON CUTTER * Plan of Care - Nilda Sanchez RN - 10/21/2019 1:45 PM CST Report [...] for d/c planning and referrals as needed. P IRON CUTTER * Op Note - Nanci Giron MD - 10/21/2019 11:49 AM CST Date of Surgery: 10/21/2019 Patient Name:Suma Saenz Patient :1945 Patient Attending Surgeon: Nanci Giron MD Co-Surgeon: Azar Ramírez MD First Surgical Assistants: Zeyad Leger MD and Juwan Jacobo MD Preoperative Diagnosis: [...] needle, sponge and instrument counts were correct. P IRON CUTTER * Brief Op Note - Juwan Jacobo MD - 10/21/2019 11:49 AM CST Operative Progress Note Surgical Team: Surgeon(s) and Role: * Nanci Giron MD - Primary * Taryn Whitley MD - Resident - Assisting * Zeyad Leger MD - Fellow * Juwan Jacobo MD - Fellow * Azar Ramírez MD - Co-Surgeon Anesthesiologist: Hosea Patricia MD; Zack Felton MD PhD Law Instructor: Jeremy Olson MD; Mailha Michael MD Commercial Title Examiner: Sylvester White RN Commercial Title Examiner Relief: Renée Gan RN; Mariel Gonzalez RN Scrub Relief: Renée Gan RN Scrub: ST BEKA CurtisA: Stephnaie Ochoa RN; Shirley Webtser RN DATE OF SURGERY : 10/21/2019 Preoperative [...] Implant Name Type Inv. Item Serial No. Rail Tractor Operator Lot No. LRB No. Used [employer] [id number] 6MM 80CM 60CM STRETCH REMOVABLE RING LINE PERIPHERALTHIN WALL - [id number] - [id number] Graft [employer] [id number] 6mm 80cm 60cm Stretch Removable Ring Line Peripheral Thin Wall [id number] [employer] Right 1 [employer] [id number] HEMASHIELD [place] 8MM 30CM WOVEN SMOOTH NEEDLE PASSAGE SUTURE -[id number] - [id number] Graft [employer] [id number] Hemashield [place] 8mm 30cm WovenSmooth Needle Passage Suture [id number] N/A 1 [employer] C[employer]ASC[employer] [id number] GELSOFT PLUS VASCUTEK 14/7MM 45CM MAIN LEG BORE REDUCED - [id number] - [id number] Graft [employer] CARDIO VASCULAR [id number] Gelsoft Plus [place]asc[place] 14/7mm 45cm Main Leg Bore Reduced [id number] Ter[employer] Cardio Vascular [id number] N/A 1 Blood/Blood Products Transfused: 240 Cell [...] Azar Ramírez MD at 10/22/2019 1:15 PM SCRAP IRON CUTTER P IRON CUTTER P IRON CUTTER * Plan of Care - Johnny Peterson [...] of discharge needs will improve Outcome: Progressing P IRON CUTTER * Op Note - Azar Ramírez MD - 10/21/2019 12:00 AM CST Preoperative Diagnosis 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 Procedure Performed Aortic arch reconstruction with multiple branch-graft technique with 6 mm [place]- Jaime graft from the aorta to the [...] anddistal and then got a 6 mm [place]Jaime ringed graft and sewed it end-to-end to [...] biter clamp on and the 6 mm [place]Jaime graft that was going to the axillary, [...] a 5-0 just distal to its bifurcation. Wethen cut it with a bevel and sewed [...] to the appropriate length and did an end-to-end anastomosis with 5-0 Prolene suture. We then, at this point, now had completed the revascularizationand de-aired all the grafts. So, we then obtained hemostasis, put in chest tubes, and once all the grafts were checked to be good, we were to close with wire and absorbable suture. I directly participated in all ghosh portions including all the anastomoses in the dissection and freeing up the vesselsand was otherwise immediately available for the entire operation except for the very beginning, during which Dr. Giron was immediately available. Of note, we gave Ancef and vancomycin for antibiotics, which we will discontinue within 48 hours. We did not use any specific DVT prophylaxis since this is not indicated for cardiac surgical procedures. Job ID/VF Job ID: [id number] P IRON CUTTER * Plan of Care - Miguel Ángel [...] Monitor labs, OR 10/21, [facility] [place] Summary: P IRON CUTTER * Plan of Care - Muna Hope RN - 10/20/2019 11:59 [...] and verbalizes understanding. Will continue to monitor. P IRON CUTTER * Plan of Care - Miguel Ángel [...] cath site, remain free from falls Summary: P IRON CUTTER * Plan of Care - uMna Hope RN - 10/19/2019 2:48 PM CST [...] and verbalizes understanding. Will continue to monitor. P IRON CUTTER * Plan of Care - Nilda Sanchez [...] for d/c planning and referrals as needed. P IRON CUTTER * Plan of Care - Kenia Dominguez [...] assess cath site, remain free from falls P IRON CUTTER * Plan of Mona - Sarah Velasco RN - 10/18/2019 4:31 PM CST Goals: Clinical Goals for the Shift: Free from falls, stable vitals, to cardiac dock or pier laborer and MRI for testing Problem: Lack of [...] performed during shift. Patient to transfer to [facility] P IRON CUTTER * Post-Procedure Note - Jd Sinha MD - 10/18/2019 11:18 AM SCRAP IRON CUTTER Preliminary Note Procedure: Procedure(s): LEFT HEART CATHETERIZATION WITH CORONARY ANGIOGRAPHY AND WITH OR WITHOUT LEFT VENTRICULOGRAM 81970 Indication: pre-op eval for Cerebrovascular surgery Access Site: RFA 5 Fr; closed with 6 Fr angioseal Results: Normal cor angios. Left dominant system Recommendations: No coronary revascularization indicated Jd Sinha MD 11:18 AM P IRON CUTTER * Pre-Cardiac Catheterization Workup and H&P - Rosmery Murphy NP - 10/18/2019 8:54 AM CST PRE-CARDIAC CATHETERIZATION WORKUP Patient Name: Suma Saenz Patient Patient : 1945 Date of Procedure: 10/18/2019 ORDERING DENTAL EQUIPMENT MECHANIC: Surgeon(s): STAT, GENERIC SURGEON Procedure(s): LEFT HEART CATHETERIZATION WITH CORONARY ANGIOGRAPHY AND WITH OR WITHOUT LEFT VENTRICULOGRAM 64681 Requested Diagnostic: [] Coronary Angiograms Only [x] [...] Yes [] No [] Contraindicated Indications for Recreation Therapy Aide visit (Select all that apply): [] ACS [...] ESRD [] Dialysis [] HD []PD: Prior AR: [] Yes [] No If Yes, Most Recent AR Date: Tobacco Use Social History Tobacco Use [...] Yes, Newly Diagnosed: [] Yes [] No NYHS Class: [] Class I [] Class II [...] EKG: sinus bradycardia IMPRESSION: 73yoF here for [facility] as part of pre-op evaluation C[facility] Clinical Frailty Scale: [] 1: Very Fit [...] and Assessment Completed by: Name: Rosmery Murphy NP-C Date: 10/18/2019 Time: 904 Cosigned by Jd Sinha MD at 10/18/2019 9:59 AM SCRAP IRON CUTTER P IRON CUTTER P IRON CUTTER P IRON CUTTER P IRON CUTTER * Pre-Sedation Documentation - Rosmery Murphy NP - 10/18/2019 8:53 AM CST Sedation Plan ASA 3 - Severe systemic disease Risks, benefits, and alternatives discussed with patient. History of sedation/Anesthesia complications:No History of transfusion reaction: No Current Facility-Administered Medications Medication Dose Route Frequency Provider Last Rate Last Dose ??? aspirin tablet 325 mg 325 mg oral Daily Gisella Freedman MD 325 mg at 10/18/19827 ??? atenoloL (TENORMIN) tablet 50 mg 50 [...] injection 5,000 Units 5,000 Units subcutaneous Q8H [facility] Gisella Freedman MD Stopped at 10/18/19828 ??? hydroCHLOROthiazide (HYDRODIURIL) tablet 25 mg 25 mg oral Daily Gisella Freedman MD 25 mg at 10/18/19828 ??? Lactated Ringer's (LR) infusion 50 mL/hr intravenous Continuous Gisella Freedman MD Stopped at 10/18/19851 ??? montelukast (SINGULAIR) tablet 10 mg 10 mg oral Nightly Gisella Freedman MD ??? senna-docusate (PERICOLACE) 8.6-50 mg per tablet 2 tablet 2 tablet oral BID PRN Gisella Freedman MD 2 tablet at 10/18/19828 ??? 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 10/21/2019 4:49 PM SCRAP IRON CUTTER Scheduled Orders Name Type Priority Associated Diagnoses Orde r Schedule ECG 12 lead ECG STAT Once for 1 Oc currences starting 10/21/2019 until 10/21/2019 documented as of this encounter Procedures Procedure Name Priority Date/Time Associated Diagnosis Comments DIFFERENTIAL AUTO Routine 10/27/2019 12:41 AM SCRAP IRON CUTTER CBC WITH AUTO DIFFERENTIAL Routine 10/27/2019 12:41 AM SCRAP IRON CUTTER BASIC METABOLIC PANEL Routine 10/27/2019 12:41 AM SCRAP IRON CUTTER DIFFERENTIAL AUTO Routine 10/25/2019 11:19 PM SCRAP IRON CUTTER CBC WITH AUTO DIFFERENTIAL Routine 10/25/2019 11:19 PM SCRAP IRON CUTTER LIDOCAINE LEVEL Timed 10/25/2019 11:19 PM SCRAP IRON CUTTER TYPE AND SCREEN Timed 10/25/2019 11:19 PM SCRAP IRON CUTTER PHOSPHORUS Routine 10/25/2019 11:19 PM SCRAP IRON CUTTER MAGNESIUM Routine 10/25/2019 11:19 PM SCRAP IRON CUTTER BASIC METABOLIC PANEL Routine 10/25/2019 11:19 PM SCRAP IRON CUTTER MRSA ONLY (STAPHYLOCOCCUS AUREUS) CULTURE Routine 10/25/2019 11:40 AM SCRAP IRON CUTTER POCT GLUCOSE DEVICE Routine 10/25/2019 11:34 AM SCRAP IRON CUTTER CRITICAL CARE Routine 10/25/2019 11:07 AM SCRAP IRON CUTTER Acute postoperative pain POCT GLUCOSE DEVICE Routine 10/25/2019 8 :13 AM SCRAP IRON CUTTER TYPE AND SCREEN Timed 10/25/2019 5:24 AM SCRAP IRON CUTTER DIFFERENTIAL AUTO Routine 10/25/2019 4:1 9 AM SCRAP IRON CUTTER CALCIUM, IONIZED Routine 10/25/2019 4:19 AM SCRAP IRON CUTTER POCT GLUCOSE DEVICE Routine 10/25/2019 4 :19 AM SCRAP IRON CUTTER CBC WITH AUTO DIFFERENTIAL Routine 10/25/2019 4:19 AM SCRAP IRON CUTTER PHOSPHORUS Routine 10/25/2019 4:19 AM SCRAP IRON CUTTER MAGNESIUM Routine 10/25/2019 4:19 AM SCRAP IRON CUTTER BASIC METABOLIC PANEL Routine 10/25/2019 4:19 AM SCRAP IRON CUTTER POCT GLUCOSE DEVICE Routine 10/24/2019 11:08 PM SCRAP IRON CUTTER XR CHEST 1 VIEW Timed 10/24/2019 9:52 PM SCRAP IRON CUTTER ECG 12-LEAD STAT 10/24/2019 8:21 PM SCRAP IRON CUTTER POCT GLUCOSE DEVICE Routine 10/24/2019 8 :11 PM SCRAP IRON CUTTER PEP THERAPY Routine 10/24/2019 6:00 PM SCRAP IRON CUTTER MAGNESIUM Routine 10/24/2019 5:29 PM SCRAP IRON CUTTER BASIC METABOLIC PANEL Routine 10/24/2019 5:29 PM SCRAP IRON CUTTER POCT GLUCOSE DEVICE Routine 10/24/2019 4 :28 PM SCRAP IRON CUTTER PEP THERAPY Routine 10/24/2019 1:00 PM SCRAP IRON CUTTER CRITICAL CARE Routine 10/24/2019 12:48 PM SCRAP IRON CUTTER Labile hypertension POCT GLUCOSE DEVICE Routine 10/24/2019 12:22 PM SCRAP IRON CUTTER PEP THERAPY Routine 10/24/2019 8:00 AM SCRAP IRON CUTTER POCT GLUCOSE DEVICE Routine 10/24/2019 7 :35 AM SCRAP IRON CUTTER DIFFERENTIAL AUTO Routine 10/24/2019 1:3 5 AM SCRAP IRON CUTTER CBC WITH AUTO DIFFERENTIAL Routine 10/24/2019 1:35 AM SCRAP IRON CUTTER LIDOCAINE LEVEL Timed 10/24/2019 1:35 AM SCRAP IRON CUTTER PHOSPHORUS Routine 10/24/2019 1:35 AM SCRAP IRON CUTTER MAGNESIUM Routine 10/24/2019 1:35 AM SCRAP IRON CUTTER BASIC METABOLIC PANEL Routine 10/24/2019 1:35 AM SCRAP IRON CUTTER POCT GLUCOSE DEVICE Routine 10/23/2019 11:43 PM SCRAP IRON CUTTER POCT GLUCOSE DEVICE Routine 10/23/2019 9 :36 PM SCRAP IRON CUTTER XR CHEST 1 VIEW Timed 10/23/2019 8:56 PM SCRAP IRON CUTTER POCT GLUCOSE DEVICE Routine 10/23/2019 3 :28 PM SCRAP IRON CUTTER PEP THERAPY Routine 10/23/2019 3:00 PM SCRAP IRON CUTTER POCT GLUCOSE DEVICE Routine 10/23/2019 12:10 PM SCRAP IRON CUTTER CRITICAL CARE Routine 10/23/2019 11:12 AM SCRAP IRON CUTTER Acute postoperative pain Acute respiratory failure with hypoxia (CMS/HCC) Orthostatic hypotension PEP THERAPY Routine 10/23/2019 9:00 AM SCRAP IRON CUTTER POCT GLUCOSE DEVICE Routine 10/23/2019 7 :51 AM SCRAP IRON CUTTER TYPE AND SCREEN Timed 10/22/2019 11:59 PM SCRAP IRON CUTTER POCT GLUCOSE DEVICE Routine 10/22/2019 11:53 PM SCRAP IRON CUTTER LIDOCAINE LEVEL Routine 10/22/2019 11:50 PM SCRAP IRON CUTTER CBC WITHOUT DIFFERENTIAL Routine 10/22/2019 11:50 PM SCRAP IRON CUTTER PHOSPHORUS Routine 10/22/2019 11:50 PM SCRAP IRON CUTTER MAGNESIUM Routine 10/22/2019 11:50 PM SCRAP IRON CUTTER BASIC METABOLIC PANEL Routine 10/22/2019 11:50 PM SCRAP IRON CUTTER POCT GLUCOSE DEVICE Routine 10/22/2019 8 :20 PM SCRAP IRON CUTTER XR CHEST 1 VIEW ED Urgent/IP Urgent 10/22/2019 4:15 PM SCRAP IRON CUTTER POCT GLUCOSE DEVICE Routine 10/22/2019 4 :10 PM SCRAP IRON CUTTER PEP THERAPY Routine 10/22/2019 3:00 PM SCRAP IRON CUTTER CRITICAL CARE Routine 10/22/2019 12:06 PM SCRAP IRON CUTTER Vertebral artery compression syndrome Syncope and collapse PEP THERAPY Routine 10/22/2019 11:49 AM SCRAP IRON CUTTER PEP THERAPY Routine 10/22/2019 11:49 AM SCRAP IRON CUTTER PEP THERAPY Routine 10/22/2019 11:49 AM SCRAP IRON CUTTER POCT GLUCOSE DEVICE Routine 10/22/2019 11:48 AM SCRAP IRON CUTTER CBC WITHOUT DIFFERENTIAL STAT 10/22/2019 11:37 AM SCRAP IRON CUTTER LIDOCAINE LEVEL Timed 10/22/2019 8:32 AM SCRAP IRON CUTTER POCT GLUCOSE DEVICE Routine 10/22/2019 7 :47 AM SCRAP IRON CUTTER PEP THERAPY Routine 10/22/2019 5:56 AM SCRAP IRON CUTTER POCT GLUCOSE DEVICE Routine 10/22/2019 3 :41 AM SCRAP IRON CUTTER ECG 12-LEAD Routine 10/22/2019 2:02 AM SCRAP IRON CUTTER CBC WITHOUT DIFFERENTIAL Routine 10/22/2019 1:24 AM SCRAP IRON CUTTER PHOSPHORUS Timed 10/22/2019 1:24 AM SCRAP IRON CUTTER MAGNESIUM Timed 10/22/2019 1:24 AM SCRAP IRON CUTTER BASIC METABOLIC PANEL Timed 10/22/2019 1:24 AM SCRAP IRON CUTTER POCT GLUCOSE DEVICE Routine 10/22/2019 12:10 AM SCRAP IRON CUTTER CBC WITHOUT DIFFERENTIAL Timed 10/21/2019 10:20 PM SCRAP IRON CUTTER XR CHEST 1 VIEW Timed 10/21/2019 8:38 PM SCRAP IRON CUTTER POCT GLUCOSE DEVICE Routine 10/21/2019 8 :24 PM SCRAP IRON CUTTER EXTUBATION Routine 10/21/2019 7:00 PM SCRAP IRON CUTTER MRSA ONLY (STAPHYLOCOCCUS AUREUS) CULTURE STAT 10/21/2019 6:50 PM SCRAP IRON CUTTER TRANSFUSE RED BLOOD CELLS Timed 10/21/2019 6:50 PM SCRAP IRON CUTTER INFECTION PREVENTION MRSA ONLY (STAPHYLOCOCCUS AUREUS) CULTURE Routine 10/21/2019 6:50 PM SCRAP IRON CUTTER POTASSIUM, WHOLE BLOOD STAT 10/21/2019 6:47 PM SCRAP IRON CUTTER BLOOD GAS, ARTERIAL STAT 10/21/2019 6 :47 PM SCRAP IRON CUTTER PREPARE RBC Timed 10/21/2019 6:34 PM SCRAP IRON CUTTER LACTATE, WHOLE BLOOD STAT 10/21/2019 5:29 PM SCRAP IRON CUTTER APTT STAT 10/21/2019 5:29 PM SCRAP IRON CUTTER PROTIME-INR STAT 10/21/2019 5:29 PM SCRAP IRON CUTTER CBC WITHOUT DIFFERENTIAL STAT 10/21/2019 5:29 PM SCRAP IRON CUTTER BLOOD GAS, ARTERIAL STAT 10/21/2019 5 :29 PM SCRAP IRON CUTTER BASIC METABOLIC PANEL STAT 10/21/2019 5:29 PM SCRAP IRON CUTTER XR CHEST 1 VIEW Critical/Life- Threatening 10/21/2019 5:27 PM SCRAP IRON CUTTER POCT GLUCOSE DEVICE Routine 10/21/2019 5 :07 PM SCRAP IRON CUTTER VASCULAR SURGERY PROCEDURE Routine 10/21/2019 4:49 PM SCRAP IRON CUTTER 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 POC BLOOD GAS AND CHEMISTRIES, ARTERIAL Routine 10/21/2019 3:51 PM SCRAP IRON CUTTER POCT ACTIVATED CLOTTING TIME, LOW RANGE Routine 10/21/2019 3:43 PM SCRAP IRON CUTTER POCT ACTIVATED CLOTTING TIME, LOW RANGE Routine 10/21/2019 3:06 PM SCRAP IRON CUTTER POCT ACTIVATED CLOTTING TIME, LOW RANGE Routine 10/21/2019 2:37 PM SCRAP IRON CUTTER POCT ACTIVATED CLOTTING TIME, LOW RANGE Routine 10/21/2019 2:10 PM SCRAP IRON CUTTER POC BLOOD GAS AND CHEMISTRIES, ARTERIAL Routine 10/21/2019 2:06 PM SCRAP IRON CUTTER POCT ACTIVATED CLOTTING TIME, LOW RANGE Routine 10/21/2019 1:34 PM SCRAP IRON CUTTER POCT ACTIVATED CLOTTING TIME, LOW RANGE Routine 10/21/2019 1:08 PM SCRAP IRON CUTTER POCT ACTIVATED CLOTTING TIME, LOW RANGE Routine 10/21/2019 12:19 PM SCRAP IRON CUTTER DIFFERENTIAL AUTO Routine 10/20/2019 11:02 PM SCRAP IRON CUTTER CBC WITH AUTO DIFFERENTIAL Routine 10/20/2019 11:02 PM SCRAP IRON CUTTER BASIC METABOLIC PANEL Routine 10/20/2019 11:02 PM SCRAP IRON CUTTER TYPE AND SCREEN Timed 10/20/2019 12:17 PM SCRAP IRON CUTTER PREPARE RBC Timed 10/20/2019 9:43 AM SCRAP IRON CUTTER DIFFERENTIAL AUTO Routine 10/20/2019 12:36 AM SCRAP IRON CUTTER CBC WITH AUTO DIFFERENTIAL Routine 10/20/2019 12:36 AM SCRAP IRON CUTTER BASIC METABOLIC PANEL Routine 10/20/2019 12:36 AM SCRAP IRON CUTTER US GROIN PSEUDO DUPLEX RIGHT IP Routine 10/19/2019 10:30 AM SCRAP IRON CUTTER DIFFERENTIAL AUTO Routine 10/19/2019 12:13 AM SCRAP IRON CUTTER CBC WITH AUTO DIFFERENTIAL Routine 10/19/2019 12:13 AM SCRAP IRON CUTTER BASIC METABOLIC PANEL Routine 10/19/2019 12:13 AM SCRAP IRON CUTTER MRI BRAIN MRA HEAD W WO CONTRAST IP Routine 10/18/2019 7:03 PM SCRAP IRON CUTTER MRA NECK W WO CONTRAST IP Routine 10/18/2019 7:03 PM SCRAP IRON CUTTER LEFT HEART CATHETERIZATION WITH CORONARY ANGIOGRAPHY AND WITH AND WITHOUT LEFT VENTRICULOGRAM Routine 10/18/2019 11:21 AM SCRAP IRON CUTTER 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) CBC WITHOUT DIFFERENTIAL Routine 10/18/2019 10:37 AM SCRAP IRON CUTTER APTT STAT 10/18/2019 1:02 AM SCRAP IRON CUTTER PROTIME-INR STAT 10/18/2019 1:02 AM SCRAP IRON CUTTER CBC WITHOUT DIFFERENTIAL STAT 10/18/2019 1:02 AM SCRAP IRON CUTTER TYPE AND SCREEN STAT 10/18/2019 1:02 AM SCRAP IRON CUTTER PHOSPHORUS STAT 10/18/2019 1:02 AM SCRAP IRON CUTTER MAGNESIUM STAT 10/18/2019 1:02 AM SCRAP IRON CUTTER BASIC METABOLIC PANEL STAT 10/18/2019 1:02 AM SCRAP IRON CUTTER ECG 12-LEAD STAT 10/18/2019 12:33 AM SCRAP IRON CUTTER documented in this encounter Results * (ABNORMAL) Differential, auto (10/27/2019 12:41 AM SCRAP IRON CUTTER) Neutrophil abs 2.9 1.7 - 6.5 K/cumm [facility] Imm gran abs 0.2(H) 0.0 - 0.1 K/cumm [facility] Lymphocyte abs 1.9 0.8 - 3.3 K/cumm [facility] Monocyte abs 1.0(H) 0.2 - 0.8 K/cumm [facility] Eosinophil abs 0.1 0.0 - 0.5 K/cumm [facility] Basophil abs 0.0 0.0 - 0.1 K/cumm [facility] Neutrophil pct 47.3 % [facility] Comment: Interpretive Data Percent cell count reference ranges are not reported, since discordance with absolute values may lead to misinterpretation of CBC data. Current Interpretive Data was last revised on 2017. Imm gran pct 2.4 % [facility] Comment: Interpretive Data Percent cell count reference ranges are not reported, since discordance with absolute values may lead to misinterpretation of CBC data. Current Interpretive Data was last revised on 2017. Lymphocyte pct 31.4 % [facility] Comment: Interpretive Data Percent cell count reference ranges are not reported, since discordance with absolute values may lead to misinterpretation of CBC data. Current Interpretive Data was last revised on 2017. Monocyte pct 16.1 % [facility] Comment: Interpretive Data Percent cell count reference ranges are not reported, since discordance with absolute values may lead to misinterpretation of CBC data. Current Interpretive Data was last revised on 2017. Eosinophil pct 2.1 % [facility] Comment: Interpretive Data Percent cell count reference ranges are not reported, since discordance with absolute values may lead to misinterpretation of CBC data. Current Interpretive Data was last revised on 2017. Basophil pct 0.7 % [facility] Comment: Interpretive Data Percent cell count reference ranges are not reported, since discordance with absolute values may lead to misinterpretation of CBC data. Current Interpretive Data was last revised on 2017. Blood specimen (specimen) 10/27/2019 12:41 AM SCRAP IRON CUTTER 10/27/2019 1:29 AM SCRAP IRON CUTTER Annemarie Lynne NP LAB BLOOD ORDERABLES F inal Result [facility] Department [place] [address] * (ABNORMAL) CBC with auto differential (10/27/2019 12:41 AM SCRAP IRON CUTTER) WBC 6.2 3.8 - 9.9 K/cumm [facility] Hgb 8.8(L) 11.9 - 15.5 g/dL [facility] Hct 26.6(L) 35.6 - 45.5 % [facility] Plt 285 150 - 400 K/cumm [facility] MPV 9.4 9.1 - 12.3 fL [facility] RBC 2.84(L) 3.90 - 5.20 M/cumm [facility] MCV 93.7 81.3 - 96.4 fL [facility] MCH 31.0 27.1 - 33.3 pg [facility] MCHC 33.1 32.3 - 35.7 g/dL [facility] RDW CV 14.1 11.1 - 14.9 % [facility] RDW SD 47.8 35.7 - 48.1 fL [facility] NRBC abs 0.04(H) 0.00 - 0.01 K/cumm [facility] Blood specimen (specimen) 10/27/2019 12:41 AM SCRAP IRON CUTTER 10/27/2019 1:29 AM SCRAP IRON CUTTER Annemarie Lynne NP LAB BLOOD ORDERABLES F inal Result Performing Organization Address City/[facility]/ZIP Co de Phone Number [facility] Department [place] [address] * (ABNORMAL) Basic metabolic panel (10/27/2019 12:41 AM SCRAP IRON CUTTER) [facility] Sodium 133(L) 135 - 145 mmol/L [facility] Potassium, pl 3.9 3.3 - 4.9 mmol/L [facility] Chloride 100 97 - 110 mmol/L [facility] CO2 25 22 - 32 mmol/L [facility] Anion gap 8 2 - 15 mmol/L [facility] BUN 17 8 - 25 mg/dL [facility] Creatinine 0.83 0.60 - 1.10 mg/dL [facility] Glucose 107 70 - 199 mg/dL [facility] Comment: Interpretive Data Fasting glucose >/= [...] 2017. Calcium 9.0 8.5 - 10.3 mg/dL [facility] Blood specimen (specimen) 10/27/2019 12:41 AM SCRAP IRON CUTTER 10/27/2019 1:29 AM SCRAP IRON CUTTER Annemarie Lynne NP LAB BLOOD ORDERABLES F inal Result Performing Organization Address [facility] Co de Phone Number [facility] Department [place] [address] * Differential, auto (10/25/2019 11:19 PM SCRAP IRON CUTTER) Neutrophil abs 3.7 1.7 - 6.5 K/cumm [facility] Imm gran abs 0.1 0.0 - 0.1 K/cumm [facility] Lymphocyte abs 1.1 0.8 - 3.3 K/cumm [facility] Monocyte abs 0.8 0.2 - 0.8 K/cumm [facility] Eosinophil abs 0.1 0.0 - 0.5 K/cumm [facility] Basophil abs 0.0 0.0 - 0.1 K/cumm [facility] Neutrophil pct 63.2 % [facility] Comment: Interpretive Data Percent cell count reference ranges are not reported, since discordance with absolute values may lead to misinterpretation of CBC data. Current Interpretive Data was last revised on 2017. Imm gran pct 1.4 % [facility] Comment: Interpretive Data Percent cell count reference ranges are not reported, since discordance with absolute values may lead to misinterpretation of CBC data. Current Interpretive Data was last revised on 2017. Lymphocyte pct 19.2 % [facility] Comment: Interpretive Data Percent cell count reference ranges are not reported, since discordance with absolute values may lead to misinterpretation of CBC data. Current Interpretive Data was last revised on 2017. Monocyte pct 14.3 % [facility] Comment: Interpretive Data Percent cell count reference ranges are not reported, since discordance with absolute values may lead to misinterpretation of CBC data. Current Interpretive Data was last revised on 2017. Eosinophil pct 1.4 % [facility] Comment: Interpretive Data Percent cell count reference ranges are not reported, since discordance with absolute values may lead to misinterpretation of CBC data. Current Interpretive Data was last revised on 2017. Basophil pct 0.5 % [facility] Comment: Interpretive Data Percent cell count reference ranges are not reported, since discordance with absolute values may lead to misinterpretation of CBC data. Current Interpretive Data was last revised on 2017. Blood specimen (specimen) 10/25/2019 11:19 PM S[facility] IRON C[facility]TER 10/25/2019 11:48 PM SCRAP IRON CUTTER us Nanci Giron MD LAB BLOOD ORDERABLES Tiffany l Result Performing Organization Address [facility] [place] [address] * Type and screen (10/25/2019 11:19 PM SCRAP IRON CUTTER) Mara, indirect Negative [facility] ABO Rh O Positive [facility] Blood specimen (specimen) 10/25/2019 11:19 PM S[facility] IRON C[facility]TER 10/26/2019 12:07 AM S[facility] IRON CUTTER Narrative [facility] - 10/26/2019 1:13 AM S[facility] IRON CUTTER Has the patient had Daratumumab (Darzalex) in the past 6 months?->Unknown Nanci Giron MD LAB BLOOD BANK TEST ORDER EDD Final Result Performing Organization Address [facility] [place] [address] * Phosphorus (10/25/2019 11:19 PM SCRAP IRON CUTTER) Phosphorus, pl 2.6 2.3 - 4.5 mg/dL [facility] Blood specimen (specimen) 10/25/2019 11:19 PM S[facility] IRON CUTTER 10/25/2019 11:47 PM S[facility] IRON CUTTER Nanci Giron MD LAB BLOOD ORDERABLES Tiffany l Result Performing Organization Address [facility] [place] [address] * Magnesium (10/25/2019 11:19 PM SCRAP IRON CUTTER) Magnesium 2.3 1.4 - 2.5 mg/dL [facility] Blood specimen (specimen) 10/25/2019 11:19 PM S[facility]ON C[facility]TER 10/25/2019 11:47 PM SCRAP IRON CUTTER Nanci Giron MD LAB BLOOD ORDERABLES Tiffany l Result [facility] Department [place] [address] * (ABNORMAL) Basic metabolic panel (10/25/2019 11:19 PM SCRAP IRON CUTTER) Pathologist [facility] Sodium 131(L) 135 - 145 mmol/L [facility] Potassium, pl 4.0 3.3 - 4.9 mmol/L [facility] Chloride 96(L) 97 - 110 mmol/L [facility] CO2 26 22 - 32 mmol/L [facility] Anion gap 9 2 - 15 mmol/L [facility] BUN 21 8 - 25 mg/dL [facility] Creatinine 0.79 0.60 - 1.10 mg/dL [facility] Glucose 115 70 - 199 mg/dL [facility] Comment: Interpretive Data Fasting glucose >/= [...] 2017. Calcium 9.2 8.5 - 10.3 mg/dL [facility] Blood specimen (specimen) 10/25/2019 11:19 PM S[facility] IRON CUTTER 10/25/2019 11:47 PM SCRAP IRON CUTTER us Nanci Giron MD LAB BLOOD ORDERABLES Tiffany l Result Performing Organization Address [facility]/ZIP Co de Phone Number [facility] Department [place] [address] * (ABNORMAL) CBC with auto differential (10/25/2019 11:19 PM SCRAP IRON CUTTER) Pathologist [facility] WBC 5.9 3.8 - 9.9 K/cumm [facility] Hgb 8.3(L) 11.9 - 15.5 g/dL [facility] Hct 24.3(L) 35.6 - 45.5 % [facility] Plt 240 150 - 400 K/cumm [facility] MPV 9.5 9.1 - 12.3 fL [facility] RBC 2.66(L) 3.90 - 5.20 M/cumm [facility] MCV 91.4 81.3 - 96.4 fL [facility] MCH 31.2 27.1 - 33.3 pg [facility] MCHC 34.2 32.3 - 35.7 g/dL [facility] RDW CV 14.1 11.1 - 14.9 % [facility] RDW SD 46.6 35.7 - 48.1 fL [facility] NRBC abs 0.00 0.00 - 0.01 K/cumm [facility] Blood specimen (specimen) 10/25/2019 11:19 PM S[facility] IR[facility] C[facility]TER 10/25/2019 11:48 PM S[facility] IRON CUTTER Nanci Giron MD LAB BLOOD ORDERABLES Tiffany l Result Performing Organization Address City/[facility] Co de Phone Number [facility] Department [place] [employer] [place] [address] * (ABNORMAL) Lidocaine level (10/25/2019 11:19 PM SCRAP IRON CUTTER) Lidocaine (Xylocaine) <1.0(L) 1.5 - 5.0 mcg/mL [facility] Blood specimen (specimen) 10/25/2019 11:19 PM S[facility] C[facility]TER 10/25/2019 11:47 PM SCRAP IRON CUTTER Nanci Giron MD LAB BLOOD ORDERABLES Tiffany l Result [facility] [place] [employer] [place] [address] * MRSA Only (Staphylococcus aureus) Culture Nasal (10/25/2019 11:40 AM SCRAP IRON CUTTER) Report Final Report: Negative [facility] Nasal 10/25/2019 11:4 0 AM SCR[facility] IRON CUTTER 10/25/2019 12:31 PM SCRAP IRON CUTTER Narrative [facility] - 10/26/2019 1:34 PM SCR[facility] IRON CUTTER Testing performed by [facility] ([phone]). us Jayce Alvarez MD LAB MICROBIOLOGY - GENERAL ORDER EDD Final Result Performing Organization Address City/[facility] Co de Phone Number [facility] Department [place] [address] * POCT glucose (10/25/2019 11:34 AM SCRAP IRON CUTTER) Glucose, POC 155 70 - 199 mg/dL [facility] Blood specimen (specimen) 10/25/2019 11:34 AM SCR[facility] IRON CUTTER 10/25/2019 11:34 AM SCRAP IRON CUTTER us Nanci Giron MD LAB POCT ORDERABLES - DEV ICE Final Result Performing Organization Address [facility] Co de Phone Number [facility] Department [place] [address] * Critical Care (10/25/2019 11:07 AM SCRAP IRON CUTTER) Narrative Michael Marcelo MD - 10/25/2019 11:07 AM SCRAP IRON CUTTER Michael Marcelo MD ? 10/25/2019 11:08 AM Critical Care [...] plan with the patient's team and other medical/consultant intern staff. This time was in addition to [...] Result * POCT glucose (10/25/2019 8:13 AM SCRAP IRON CUTTER) Glucose, POC 117 70 - 199 mg/dL [facility] Blood specimen (specimen) 10/25/2019 8:13 AM SCR[facility] IRON CUTTER 10/25/2019 8:13 AM SCRAP IRON CUTTER Nanci Giron MD LAB POCT ORDERABLES - DEV ICE Final Result Performing Organization Address City/[facility]/ZIP Co de Phone Number [facility] Department [place] [employer] [place] [address] * Type and screen (10/25/2019 5:24 AM SCRAP IRON CUTTER) ABO Rh O Positive [facility] Mara, indirect Negative [facility] Blood specimen (specimen) 10/25/2019 5:24 AM S[facility] IRON CUTTER 10/25/2019 5:35 AM SCRAP IRON CUTTER Narrative [facility] - 10/25/2019 6:26 AM SCRAP IRON CUTTER Has the patient had Daratumumab (Darzalex) in the past 6 months?->Unknown Result [facility] Mario House MD LAB BLOOD BANK TEST OR DERABLES Final Result [facility] [place] [address] * Differential, auto (10/25/2019 4:19 AM SCRAP IRON CUTTER) Neutrophil abs 4.4 1.7 - 6.5 K/cumm [facility] Imm gran abs 0.0 0.0 - 0.1 K/cumm [facility] Lymphocyte abs 1.6 0.8 - 3.3 K/cumm [facility] Monocyte abs 0.7 0.2 - 0.8 K/cumm [facility] Eosinophil abs 0.1 0.0 - 0.5 K/cumm [facility] Basophil abs 0.0 0.0 - 0.1 K/cumm [facility] Neutrophil pct 63.1 % [facility] Comment: Interpretive Data Percent cell count reference ranges are not reported, since discordance with absolute values may lead to misinterpretation of CBC data. Current Interpretive Data was last revised on 2017. Imm gran pct 0.6 % [facility] Comment: Interpretive Data Percent cell count reference ranges are not reported, since discordance with absolute values may lead to misinterpretation of CBC data. Current Interpretive Data was last revised on 2017. Lymphocyte pct 23.4 % [facility] Comment: Interpretive Data Percent cell count reference ranges are not reported, since discordance with absolute values may lead to misinterpretation of CBC data. Current Interpretive Data was last revised on 2017. Monocyte pct 10.6 % [facility] Comment: Interpretive Data Percent cell count reference ranges are not reported, since discordance with absolute values may lead to misinterpretation of CBC data. Current Interpretive Data was last revised on 2017. Eosinophil pct 2.0 % [facility] Comment: Interpretive Data Percent cell count reference ranges are not reported, since discordance with absolute values may lead to misinterpretation of CBC data. Current Interpretive Data was last revised on 2017. Basophil pct 0.3 % [facility] Comment: Interpretive Data Percent cell count reference ranges are not reported, since discordance with absolute values may lead to misinterpretation of CBC data. Current Interpretive Data was last revised on 2017. Blood specimen (specimen) 10/25/2019 4:19 AM SCR[facility] IRON CUTTER 10/25/2019 4:31 AM SCRAP IRON CUTTER us Nanci Giron MD LAB BLOOD ORDERABLES Tiffany pacheco Result [facility] [place] [address] * POCT glucose (10/25/2019 4:19 AM SCRAP IRON CUTTER) [facility] Glucose, POC 120 70 - 199 mg/dL [facility] Blood specimen (specimen) 10/25/2019 4:19 AM SCRAP IRON CUTTER 10/25/2019 4:19 AM SCRAP IRON CUTTER Nanci Giron MD LAB POCT ORDERABLES - [place] [address] * Magnesium (10/25/2019 4:19 AM SCRAP IRON CUTTER) [facility] Magnesium 2.2 1.4 - 2.5 mg/dL [facility] Blood specimen (specimen) 10/25/2019 4:19 AM SCRAP IRON CUTTER 10/25/2019 4:31 AM SCRAP IRON CUTTER Nanci Giron MD LAB BLOOD ORDERABLES Tiffany l Result Performing Organization Address City/[facility]/ZIP Co de Phone Number [facility] [place] [address] * (ABNORMAL) Basic metabolic panel (10/25/2019 4:19 AM SCRAP IRON CUTTER) [facility] Sodium 131(L) 135 - 145 mmol/L [facility] Potassium, pl 3.7 3.3 - 4.9 mmol/L [facility] Chloride 96(L) 97 - 110 mmol/L [facility] CO2 28 22 - 32 mmol/L [facility] Anion gap 7 2 - 15 mmol/L [facility] BUN 24 8 - 25 mg/dL [facility] Creatinine 0.98 0.60 - 1.10 mg/dL [facility] Glucose 105 70 - 199 mg/dL [facility] Comment: Interpretive Data Fasting glucose >/= [...] 2017. Calcium 8.5 8.5 - 10.3 mg/dL [facility] Blood specimen (specimen) 10/25/2019 4:19 AM SCRAP IRON CUTTER 10/25/2019 4:31 AM SCRAP IRON CUTTER us Nanci Giron MD LAB BLOOD ORDERABLES Tiffany pacheco Result [facility] Department [place] [address] * (ABNORMAL) CBC with auto differential (10/25/2019 4:19 AM SCRAP IRON CUTTER) WBC 6.9 3.8 - 9.9 K/cumm [facility] Hgb 8.2(L) 11.9 - 15.5 g/dL [facility] Hct 24.3(L) 35.6 - 45.5 % [facility] Plt 183 150 - 400 K/cumm [facility] MPV 9.6 9.1 - 12.3 fL [facility] RBC 2.68(L) 3.90 - 5.20 M/cumm [facility] MCV 90.7 81.3 - 96.4 fL [facility] MCH 30.6 27.1 - 33.3 pg [facility] MCHC 33.7 32.3 - 35.7 g/dL [facility] RDW CV 14.2 11.1 - 14.9 % [facility] RDW SD 46.3 35.7 - 48.1 fL [facility] NRBC abs 0.00 0.00 - 0.01 K/cumm [facility] Blood specimen (specimen) 10/25/2019 4:19 AM SCRAP IRON CUTTER 10/25/2019 4:31 AM SCRAP IRON CUTTER Nanci Giron MD LAB BLOOD ORDERABLES Tiffany l Result Performing Organization Address [facility] Co de Phone Number [facility] [place] [address] * Phosphorus (10/25/2019 4:19 AM SCRAP IRON CUTTER) Phosphorus, pl 2.9 2.3 - 4.5 mg/dL [facility] Blood specimen (specimen) 10/25/2019 4:19 AM SCR[facility] IRON CUTTER 10/25/2019 4:31 AM SCRAP IRON CUTTER Rashmi Moura NP LAB BLOOD ORDERABLES Fi nal Result Performing Organization Address [facility] de Phone Number [facility] [place] [address] * (ABNORMAL) Calcium, ionized (10/25/2019 4:19 AM SCRAP IRON CUTTER) [facility] Signature Calcium, Ionized 4.44(L) 4.50 - 5.10 mg/dL [facility] Blood specimen (specimen) 10/25/2019 4:19 AM SCRAP IRON CUTTER 10/25/2019 4:28 AM SCRAP IRON CUTTER Rashmi Moura NP LAB BLOOD ORDERABLES Fi nal Result Performing Organization Address [facility] de Phone Number [facility] [place] [address] * POCT glucose (10/24/2019 11:08 PM SCRAP IRON CUTTER) Glucose, POC 134 70 - 199 mg/dL [facility] Blood specimen (specimen) 10/24/2019 11:08 PM SCRAP IRON CUTTER 10/24/2019 11:08 PM SCRAP IRON CUTTER us Nanci Giron MD LAB POCT ORDERABLES - DEV ICE Final Result [facility] Department [place] [address] * XR Chest 1 View (10/24/2019 9:52 PM SCRAP IRON CUTTER) Anatomical Region Laterality Modality Body, Chest N/A Computed Radiogr aphy 10/25/2019 8:59 AM SCRAP IRON CUTTER Impressions 10/25/2019 10:08 AM SCRAP IRON CUTTER Comparison to prior dated 10/23/2019. Median sternotomy [...] Austen Ghosh M.D. Narrative 10/25/2019 10:08 AM SCRAP IRON CUTTER EXAMINATION: 1 view chest radiograph Procedure Note [...] it. Electronically signed by: Austen Ghosh M.D. us Nanci Giron MD IMG XR PROCEDURES Final R esult * ECG 12 lead (10/24/2019 8:21 PM SCRAP IRON CUTTER) Ventricular Rate EKG/Min 84 BPM [facility] Atrial Rate 84 BPM [facility] AK-Interval (MSEC) 156 ms [facility] QRS-Interval (MSEC) 104 ms [facility] QT-Interval (MSEC) 372 ms [facility] QTc 439 ms [facility] P [place] 56 degrees [facility] R [place] 14 degrees [facility] T [place] 119 degrees [facility] Diagnosis Sinus rhythm with occasional Premature ventricular complexes Left ventricular hypertrophy with repolarization abnormality Abnormal ECG When compared with ECG of 22-OCT-2019 02:02, Premature ventricular complexes are now Present ST elevation now present in Inferior leads ST less depressed in Lateral leads T wave inversion now evident in Lateral leads Confirmed by PAT CORRIGAN M.D ([id number]) on 10/25/2019 3:10:01 PM [facility] 10/24/2019 8:21 PM SCR[facility] IRON CUTTER 10/25/2019 3:10 PM SCRAP IRON CUTTER Nanci Giron MD ECG ORDERABLES Final Res ult [facility] * POCT glucose (10/24/2019 8:11 PM SCRAP IRON CUTTER) [facility] Glucose, POC 141 70 - 199 mg/dL [facility] Blood specimen (specimen) 10/24/2019 8:11 PM SCRAP IRON CUTTER 10/24/2019 8:11 PM SCRAP IRON CUTTER Nanci Giron MD LAB POCT ORDERABLES - DEV ICE Final Result [facility] [place] [address] * Magnesium (10/24/2019 5:29 PM SCRAP IRON CUTTER) [facility] Magnesium 2.2 1.4 - 2.5 mg/dL [facility] Blood specimen (specimen) 10/24/2019 5:29 PM SCRAP IRON CUTTER 10/24/2019 5:41 PM SCRAP IRON CUTTER Suzi Haq MD LAB BLOOD ORDERABLE S Final Result [facility] Department [place] [address] * (ABNORMAL) Basic metabolic panel (10/24/2019 5:29 PM SCRAP IRON CUTTER) Sodium 129(L) 135 - 145 mmol/L [facility] Potassium, pl 4.0 3.3 - 4.9 mmol/L [facility] Chloride 94(L) 97 - 110 mmol/L [facility] CO2 28 22 - 32 mmol/L [facility] Anion gap 7 2 - 15 mmol/L [facility] BUN 27(H) 8 - 25 mg/dL [facility] Creatinine 1.09 0.60 - 1.10 mg/dL [facility] Glucose 128 70 - 199 mg/dL [facility] Comment: Interpretive Data Fasting glucose >/= [...] 2017. Calcium 8.7 8.5 - 10.3 mg/dL [facility] Blood specimen (specimen) 10/24/2019 5:29 PM SCR[facility] IRON CUTTER 10/24/2019 5:41 PM SCRAP IRON CUTTER Suzi Haq MD LAB BLOOD ORDERABLE S Final Result [facility] Department [place] [address] * POCT glucose (10/24/2019 4:28 PM SCRAP IRON CUTTER) Glucose, POC 138 70 - 199 mg/dL [facility] Blood specimen (specimen) 10/24/2019 4:28 PM SCR[facility] IRON CUTTER 10/24/2019 4:28 PM SCRAP IRON CUTTER us Nanci Giron MD LAB POCT ORDERABLES - DEV ICE Final Result [facility] Department [place] [address] * Critical Care (10/24/2019 12:48 PM SCRAP IRON CUTTER) Narrative Michael Marcelo MD - 10/24/2019 12:48 PM SCRAP IRON CUTTER Michael Marcelo MD ? 10/24/2019 12:49 PM [...] plan with the ICU team and other medical/consultant intern staff, making frequent assessments and decisions regarding [...] Result * POCT glucose (10/24/2019 12:22 PM SCRAP IRON CUTTER) Glucose, POC 147 70 - 199 mg/dL [facility] Blood specimen (specimen) 10/24/2019 12:22 PM SCRAP IRON CUTTER 10/24/2019 12:22 PM SCRAP IRON CUTTER Nanci Giron MD LAB POCT ORDERABLES - DEV ICE Final Result Performing Organization Address City/[facility]/ZIP Co de Phone Number [facility] Department [place] [address] * POCT glucose (10/24/2019 7:35 AM SCRAP IRON CUTTER) [facility] Glucose, POC 116 70 - 199 mg/dL [facility] Blood specimen (specimen) 10/24/2019 7:35 AM SCRAP IRON CUTTER 10/24/2019 7:35 AM SCRAP IRON CUTTER Nanci Giron MD LAB POCT ORDERABLES - DEV ICE Final Result Performing Organization Address City/[facility] Co de Phone Number [facility] Department [place] [address] * (ABNORMAL) Differential, auto (10/24/2019 1:35 AM SCRAP IRON CUTTER) [facility] Neutrophil abs 7.9(H) 1.7 - 6.5 K/cumm [facility] Imm gran abs 0.1 0.0 - 0.1 K/cumm [facility] Lymphocyte abs 1.2 0.8 - 3.3 K/cumm [facility] Monocyte abs 0.8 0.2 - 0.8 K/cumm [facility] Eosinophil abs 0.0 0.0 - 0.5 K/cumm [facility] Basophil abs 0.0 0.0 - 0.1 K/cumm [facility] Neutrophil pct 79.1 % [facility] Comment: Interpretive Data Percent cell count reference ranges are not reported, since discordance with absolute values may lead to misinterpretation of CBC data. Current Interpretive Data was last revised on 2017. Imm gran pct 0.9 % [facility] Comment: Interpretive Data Percent cell count reference ranges are not reported, since discordance with absolute values may lead to misinterpretation of CBC data. Current Interpretive Data was last revised on 2017. Lymphocyte pct 11.8 % [facility] Comment: Interpretive Data Percent cell count reference ranges are not reported, since discordance with absolute values may lead to misinterpretation of CBC data. Current Interpretive Data was last revised on 2017. Monocyte pct 7.7 % [facility] Comment: Interpretive Data Percent cell count reference ranges are not reported, since discordance with absolute values may lead to misinterpretation of CBC data. Current Interpretive Data was last revised on 2017. Eosinophil pct 0.4 % [facility] Comment: Interpretive Data Percent cell count reference ranges are not reported, since discordance with absolute values may lead to misinterpretation of CBC data. Current Interpretive Data was last revised on 2017. Basophil pct 0.1 % [facility] Comment: Interpretive Data Percent cell count reference ranges are not reported, since discordance with absolute values may lead to misinterpretation of CBC data. Current Interpretive Data was last revised on 2017. Blood specimen (specimen) 10/24/2019 1:35 AM SCR[facility] IRON CUTTER 10/24/2019 1:59 AM SCRAP IRON CUTTER Nanci Giron MD LAB BLOOD ORDERABLES Tiffany pacheco Result [facility] Department [place] [address] * (ABNORMAL) Phosphorus (10/24/2019 1:35 AM SCRAP IRON CUTTER) Phosphorus, pl 2.2(L) 2.3 - 4.5 mg/dL [facility] Blood specimen (specimen) 10/24/2019 1:35 AM SCRAP IRON CUTTER 10/24/2019 1:59 AM SCRAP IRON CUTTER Nanci Giron MD LAB BLOOD ORDERABLES Tiffany l Result Performing Organization Address City/[facility]/ZIP Co de Phone Number [facility] Department [place] [address] * Magnesium (10/24/2019 1:35 AM SCRAP IRON CUTTER) [facility] Magnesium 2.0 1.4 - 2.5 mg/dL [facility] Blood specimen (specimen) 10/24/2019 1:35 AM SCRAP IRON CUTTER 10/24/2019 1:59 AM SCRAP IRON CUTTER us Nanci Giron MD LAB BLOOD ORDERABLES Tiffany l Result Performing Organization Address [facility] de Phone Number [facility] [facility] [place] [address] * (ABNORMAL) Basic metabolic panel (10/24/2019 1:35 AM SCRAP IRON CUTTER) [facility] Sodium 131(L) 135 - 145 mmol/L [facility] Potassium, pl 3.5 3.3 - 4.9 mmol/L [facility] Chloride 99 97 - 110 mmol/L [facility] CO2 26 22 - 32 mmol/L [facility] Anion gap 6 2 - 15 mmol/L [facility] BUN 22 8 - 25 mg/dL [facility] Creatinine 1.01 0.60 - 1.10 mg/dL [facility] Glucose 125 70 - 199 mg/dL [facility] Comment: Interpretive Data Fasting glucose >/= [...] 2017. Calcium 8.2(L) 8.5 - 10.3 mg/dL [facility] Blood specimen (specimen) 10/24/2019 1:35 AM SCRAP IRON CUTTER 10/24/2019 1:59 AM SCRAP IRON CUTTER Nanci Giron MD LAB BLOOD ORDERABLES Tiffany tara Result Performing Organization Address [facility] de Phone Number [facility] [place] [address] * (ABNORMAL) CBC with auto differential (10/24/2019 1:35 AM SCRAP IRON CUTTER) WBC 10.0(H) 3.8 - 9.9 K/cumm [facility] Hgb 8.0(L) 11.9 - 15.5 g/dL [facility] Hct 23.0(L) 35.6 - 45.5 % [facility] Plt 151 150 - 400 K/cumm [facility] MPV 9.5 9.1 - 12.3 fL [facility] RBC 2.50(L) 3.90 - 5.20 M/cumm [facility] MCV 92.0 81.3 - 96.4 fL [facility] MCH 32.0 27.1 - 33.3 pg [facility] MCHC 34.8 32.3 - 35.7 g/dL [facility] RDW CV 14.0 11.1 - 14.9 % [facility] RDW SD 47.0 35.7 - 48.1 fL [facility] NRBC abs 0.00 0.00 - 0.01 K/cumm [facility] Blood specimen (specimen) 10/24/2019 1:35 AM SCRAP IRON CUTTER 10/24/2019 1:59 AM SCRAP IRON CUTTER Nanci Giron MD LAB BLOOD ORDERABLES Tiffany l Result Performing Organization Address [facility] Co de Phone Number [facility] Department [place] [address] * Lidocaine level (10/24/2019 1:35 AM SCRAP IRON CUTTER) Lidocaine (Xylocaine) 3.6 1.5 - 5.0 mcg/mL [facility] Blood specimen (specimen) 10/24/2019 1:35 AM SCRAP IRON CUTTER 10/24/2019 1:59 AM SCRAP IRON CUTTER Nanci Giron MD LAB BLOOD ORDERABLES Tiffany l Result Performing Organization Address [facility] Co de Phone Number [facility] [place] [employer] [place] [address] * POCT glucose (10/23/2019 11:43 PM SCRAP IRON CUTTER) Glucose, POC 121 70 - 199 mg/dL [facility] Blood specimen (specimen) 10/23/2019 11:43 PM SCRAP IRON CUTTER 10/23/2019 11:43 PM SCRAP IRON CUTTER Nanci Giron MD LAB POCT ORDERABLES - DEV ICE Final Result Performing Organization Address [facility] Co de Phone Number [facility] [place] [address] * POCT glucose (10/23/2019 9:36 PM SCRAP IRON CUTTER) Glucose, POC 119 70 - 199 mg/dL [facility] Blood specimen (specimen) 10/23/2019 9:36 PM SCRAP IRON CUTTER 10/23/2019 9:36 PM SCRAP IRON CUTTER Nanci Giron MD LAB POCT ORDERABLES - DEV ICE Final Result Performing Organization Address [facility] de Phone Number [facility] [place] [employer] [place] [address] * XR Chest 1 View (10/23/2019 8:56 PM SCRAP IRON CUTTER) Anatomical Region Laterality Modality Body, Chest N/A Computed Radiogr aphy 10/24/2019 8:57 AM SCRAP IRON CUTTER Impressions 10/24/2019 10:54 AM SCRAP IRON CUTTER Comparison is made with chest radiograph from [...] Raf Mcneill M.D. Narrative 10/24/2019 10:54 AM SCRAP IRON CUTTER EXAMINATION: 1 view chest radiograph Procedure Note [...] esult * POCT glucose (10/23/2019 3:28 PM SCRAP IRON CUTTER) [facility] Signature Glucose, POC 191 70 - 199 mg/dL [facility] Blood specimen (specimen) 10/23/2019 3:28 PM SCRAP IRON CUTTER 10/23/2019 3:28 PM SCRAP IRON CUTTER Nanci Giron MD LAB POCT ORDERABLES - DEV ICE Final Result [facility] [place] [address] * POCT glucose (10/23/2019 12:10 PM SCRAP IRON CUTTER) Glucose, POC 124 70 - 199 mg/dL [facility] Blood specimen (specimen) 10/23/2019 12:10 PM SCRAP IRON CUTTER 10/23/2019 12:10 PM SCRAP IRON CUTTER us Nanci Giron MD LAB POCT ORDERABLES - DEV ICE Final Result [facility] Department [place] [address] * Critical Care (10/23/2019 11:12 AM SCRAP IRON CUTTER) Narrative Michael Marcelo MD - 10/23/2019 11:12 AM SCRAP IRON CUTTER Michael Marcelo MD ? 10/23/2019 11:14 AM [...] plan with the ICU team and other medical/consultant intern staff, making frequent assessments and decisions regarding [...] Result * POCT glucose (10/23/2019 7:51 AM SCRAP IRON CUTTER) Glucose, POC 159 70 - 199 mg/dL [facility] Blood specimen (specimen) 10/23/2019 7:51 AM SCRAP IRON CUTTER 10/23/2019 7:51 AM SCRAP IRON CUTTER Nanci Giron MD LAB POCT ORDERABLES - DEV ICE Final Result Performing Organization Address [facility] Co de Phone Number [facility] [place] [address] * Type and screen (10/22/2019 11:59 PM SCRAP IRON CUTTER) Pathologist [facility] Mara, indirect Negative [facility] ABO Rh O Positive [facility] Blood specimen (specimen) 10/22/2019 11:59 PM SCRAP IRON CUTTER 10/23/2019 12:19 AM SCRAP IRON CUTTER Narrative [facility] - 10/23/2019 1:09 AM SCRAP IRON CUTTER Has the patient had Daratumumab (Darzalex) in the past 6 months?->Unknown Nanci Giron MD LAB BLOOD BANK TEST ORDER EDD Final Result Performing Organization Address [facility] de Phone Number [facility] Department [place] [address] * POCT glucose (10/22/2019 11:53 PM SCRAP IRON CUTTER) Glucose, POC 159 70 - 199 mg/dL [facility] Blood specimen (specimen) 10/22/2019 11:53 PM SCRAP IRON CUTTER 10/22/2019 11:53 PM SCRAP IRON CUTTER Nanci Giron MD LAB POCT ORDERABLES - DEV ICE Final Result Performing Organization Address [facility]/ZIP Co de Phone Number [facility] [place] [address] * Phosphorus (10/22/2019 11:50 PM SCRAP IRON CUTTER) [facility] Phosphorus, pl 2.5 2.3 - 4.5 mg/dL [facility] Blood specimen (specimen) 10/22/2019 11:50 PM SCRAP IRON CUTTER 10/23/2019 12:09 AM SCRAP IRON CUTTER Nanci Giron MD LAB BLOOD ORDERABLES Tiffany l Result Performing Organization Address City/[facility]/ZIP Co de Phone Number [facility] [place] [place] [address] * Magnesium (10/22/2019 11:50 PM SCRAP IRON CUTTER) [facility] Magnesium 2.1 1.4 - 2.5 mg/dL [facility] Blood specimen (specimen) 10/22/2019 11:50 PM SCRAP IRON CUTTER 10/23/2019 12:09 AM SCRAP IRON CUTTER Nanci Giron MD LAB BLOOD ORDERABLES Tiffany l Result Performing Organization Address City/[facility] Co de Phone Number [facility] Department [place] [address] * (ABNORMAL) Basic metabolic panel (10/22/2019 11:50 PM SCRAP IRON CUTTER) [facility] Sodium 133(L) 135 - 145 mmol/L [facility] Potassium, pl 4.2 3.3 - 4.9 mmol/L [facility] Chloride 104 97 - 110 mmol/L [facility] CO2 22 22 - 32 mmol/L [facility] Anion gap 7 2 - 15 mmol/L [facility] BUN 23 8 - 25 mg/dL [facility] Creatinine 1.05 0.60 - 1.10 mg/dL [facility] Glucose 177 70 - 199 mg/dL [facility] Comment: Interpretive Data Fasting glucose >/= [...] 2017. Calcium 8.6 8.5 - 10.3 mg/dL [facility] Blood specimen (specimen) 10/22/2019 11:50 PM SCRAP IRON CUTTER 10/23/2019 12:09 AM SCRAP IRON CUTTER us Nanci Giron MD LAB BLOOD ORDERABLES Tiffany pacheco Result [facility] Department [place] [address] * (ABNORMAL) CBC without differential (10/22/2019 11:50 PM SCRAP IRON CUTTER) WBC 15.8(H) 3.8 - 9.9 K/cumm [facility] Hgb 9.2(L) 11.9 - 15.5 g/dL [facility] Hct 26.9(L) 35.6 - 45.5 % [facility] Plt 169 150 - 400 K/cumm [facility] MPV 9.7 9.1 - 12.3 fL [facility] RBC 2.94(L) 3.90 - 5.20 M/cumm [facility] MCV 91.5 81.3 - 96.4 fL [facility] MCH 31.3 27.1 - 33.3 pg [facility] MCHC 34.2 32.3 - 35.7 g/dL [facility] RDW CV 14.6 11.1 - 14.9 % [facility] RDW SD 48.4(H) 35.7 - 48.1 fL [facility] NRBC abs 0.00 0.00 - 0.01 K/cumm [facility] Blood specimen (specimen) 10/22/2019 11:50 PM SCRAP IRON CUTTER 10/23/2019 12:09 AM SCRAP IRON CUTTER Nanci Giron MD LAB BLOOD ORDERABLES Tiffany l Result Performing Organization Address City/[facility] Co de Phone Number [facility] [place] [address] * Lidocaine level (10/22/2019 11:50 PM SCRAP IRON CUTTER) Lidocaine (Xylocaine) 3.8 1.5 - 5.0 mcg/mL [facility] Blood specimen (specimen) 10/22/2019 11:50 PM SCRAP IRON CUTTER 10/23/2019 12:09 AM SCRAP IRON CUTTER Narrative [facility] - 10/23/2019 4:44 AM SCRAP IRON CUTTER Draw 24 hours after infusion started. Nanci Giron MD LAB BLOOD ORDERABLES Tiffany l Result Performing Organization Address [facility] Co de Phone Number [facility] [place] [employer] [place] [address] * POCT glucose (10/22/2019 8:20 PM SCRAP IRON CUTTER) Pathologist [facility] Glucose, POC 159 70 - 199 mg/dL [facility] Blood specimen (specimen) 10/22/2019 8:20 PM SCRAP IRON CUTTER 10/22/2019 8:20 PM SCRAP IRON CUTTER Nanci Giron MD LAB POCT ORDERABLES - DEV ICE Final Result Performing Organization Address [facility] [place] [address] * XR Chest 1 View (10/22/2019 4:15 PM SCRAP IRON CUTTER) Anatomical Region Laterality Modality Body, Chest N/A Computed Radiogr aphy 10/23/2019 7:17 AM SCRAP IRON CUTTER Impressions 10/23/2019 7:17 AM SCRAP IRON CUTTER Comparison is made to the prior from 10/21/2019. The patient is status post a median sternotomy, mediastinal wires are aligned. The stomach and a right chest tube are again seen. Heart size is enlarged, but unchanged. There is bibasilar atelectasis, slightly improved from the prior. Small left pleural effusion unchanged. No pneumothorax. Electronically signed by: Mtai [place] M.D. Narrative 10/23/2019 7:17 AM SCRAP IRON CUTTER EXAMINATION: 1 view chest radiograph Procedure Note [...] Result * POCT glucose (10/22/2019 4:10 PM SCRAP IRON CUTTER) [facility] Signature Glucose, POC 154 70 - 199 mg/dL [facility] Blood specimen (specimen) 10/22/2019 4:10 PM SCRAP IRON CUTTER 10/22/2019 4:10 PM SCRAP IRON CUTTER Nanci Giron MD LAB POCT ORDERABLES - DEV ICE Final Result [facility] [place] [address] * Critical Care (10/22/2019 12:06 PM SCRAP IRON CUTTER) Narrative Michael Marcelo MD - 10/22/2019 12:06 PM SCRAP IRON CUTTER Michael Marcelo MD ? 10/22/2019 12:06 PM [...] plan with the ICU team and other medical/consultant intern staff, making frequent assessments and decisions regarding [...] Result * POCT glucose (10/22/2019 11:48 AM SCRAP IRON CUTTER) [facility] Glucose, POC 171 70 - 199 mg/dL [facility] Blood specimen (specimen) 10/22/2019 11:48 AM SCRAP IRON CUTTER 10/22/2019 11:48 AM SCRAP IRON CUTTER Nanci Giron MD LAB POCT ORDERABLES - DEV ICE Final Result [facility] Department [place] [address] * (ABNORMAL) CBC without differential (10/22/2019 11:37 AM SCRAP IRON CUTTER) [facility] WBC 15.1(H) 3.8 - 9.9 K/cumm [facility] Hgb 10.1(L) 11.9 - 15.5 g/dL [facility] Hct 29.8(L) 35.6 - 45.5 % [facility] Plt 207 150 - 400 K/cumm [facility] MPV 9.7 9.1 - 12.3 fL [facility] RBC 3.25(L) 3.90 - 5.20 M/cumm [facility] MCV 91.7 81.3 - 96.4 fL [facility] MCH 31.1 27.1 - 33.3 pg [facility] MCHC 33.9 32.3 - 35.7 g/dL [facility] RDW CV 14.2 11.1 - 14.9 % [facility] RDW SD 47.8 35.7 - 48.1 fL [facility] NRBC abs 0.00 0.00 - 0.01 K/cumm [facility] Blood specimen (specimen) 10/22/2019 11:37 AM SCRAP IRON CUTTER 10/22/2019 11:48 AM SCRAP IRON CUTTER us Nanci Giron MD LAB BLOOD ORDERABLES Tiffany l Result [facility] Department [place] [address] * Lidocaine level (10/22/2019 8:32 AM SCRAP IRON CUTTER) Lidocaine (Xylocaine) 3.2 1.5 - 5.0 mcg/mL [facility] Blood specimen (specimen) 10/22/2019 8:32 AM SCRAP IRON CUTTER 10/22/2019 8:37 AM SCRAP IRON CUTTER us Mario House MD LAB BLOOD ORDERABLES F inal Result [facility] [place] [address] * POCT glucose (10/22/2019 7:47 AM SCRAP IRON CUTTER) Glucose, POC 186 70 - 199 mg/dL [facility] Blood specimen (specimen) 10/22/2019 7:47 AM SCRAP IRON CUTTER 10/22/2019 7:47 AM SCRAP IRON CUTTER us Nanci Giron MD LAB POCT ORDERABLES - DEV ICE Final Result Performing Organization Address [facility] de Phone Number [facility] [place] [address] * POCT glucose (10/22/2019 3:41 AM SCRAP IRON CUTTER) Glucose, POC 116 70 - 199 mg/dL [facility] Blood specimen (specimen) 10/22/2019 3:41 AM SCRAP IRON CUTTER 10/22/2019 3:41 AM SCRAP IRON CUTTER us Nanci Giron MD LAB POCT ORDERABLES - DEV ICE Final Result Performing Organization Address [facility] Phone Number [facility] [place] [address] * ECG 12 lead (10/22/2019 2:02 AM SCRAP IRON CUTTER) Ventricular Rate EKG/Min 79 BPM [facility] Atrial Rate 79 BPM [facility] AK-Interval (MSEC) 162 ms [facility] QRS-Interval (MSEC) 98 ms [facility] QT-Interval (MSEC) 400 ms [facility] QTc 458 ms [facility] P [place] 47 degrees [facility] R [place] 3 degrees [facility] T [place] 9 degrees [facility] Diagnosis Normal sinus rhythm Moderate voltage criteria for LVH, may be normal variant Nonspecific ST abnormality Abnormal ECG When compared with ECG of 18-OCT-2019 00:33, No significant change was found Confirmed by PAT CORRIGAN M.D ([id number]) on 10/25/2019 2:04:04 PM [facility] 10/22/2019 2:02 AM SCRAP IRON CUTTER 10/25/2019 2:04 PM SCRAP IRON CUTTER us Nanci Giron MD ECG ORDERABLES Final Res ult Performing Organization Address [facility]/State/ZIP Co de Phone Number [facility] * (ABNORMAL) Basic metabolic panel (10/22/2019 1:24 AM SCRAP IRON CUTTER) Sodium 139 135 - 145 mmol/L [facility] Potassium, pl 4.0 3.3 - 4.9 mmol/L [facility] Chloride 110 97 - 110 mmol/L [facility] CO2 21(L) 22 - 32 mmol/L [facility] Anion gap 8 2 - 15 mmol/L [facility] BUN 19 8 - 25 mg/dL [facility] Creatinine 0.79 0.60 - 1.10 mg/dL [facility] Glucose 156 70 - 199 mg/dL [facility] Comment: Interpretive Data Fasting glucose >/= [...] 2017. Calcium 8.8 8.5 - 10.3 mg/dL [facility] Blood specimen (specimen) 10/22/2019 1:24 AM SCRAP IRON CUTTER 10/22/2019 1:29 AM SCRAP IRON CUTTER Nanci Giron MD LAB BLOOD ORDERABLES Tiffany l Result [facility] Department [place] [address] * Phosphorus (10/22/2019 1:24 AM SCRAP IRON CUTTER) Phosphorus, pl 3.4 2.3 - 4.5 mg/dL [facility] Blood specimen (specimen) 10/22/2019 1:24 AM SCRAP IRON CUTTER 10/22/2019 1:29 AM SCRAP IRON CUTTER Nanci Giron MD LAB BLOOD ORDERABLES Tiffany l Result [facility] [place] [address] * Magnesium (10/22/2019 1:24 AM SCRAP IRON CUTTER) [facility] Magnesium 1.9 1.4 - 2.5 mg/dL [facility] Blood specimen (specimen) 10/22/2019 1:24 AM SCRAP IRON CUTTER 10/22/2019 1:29 AM SCRAP IRON CUTTER Nanci Giron MD LAB BLOOD ORDERABLES Tiffany l Result Performing Organization Address [facility] de Phone Number [facility] [place] [address] * (ABNORMAL) CBC without differential (10/22/2019 1:24 AM SCRAP IRON CUTTER) [facility] WBC 10.3(H) 3.8 - 9.9 K/cumm [facility] Hgb 10.3(L) 11.9 - 15.5 g/dL [facility] Hct 30.2(L) 35.6 - 45.5 % [facility] Plt 154 150 - 400 K/cumm [facility] MPV 9.4 9.1 - 12.3 fL [facility] RBC 3.33(L) 3.90 - 5.20 M/cumm [facility] MCV 90.7 81.3 - 96.4 fL [facility] MCH 30.9 27.1 - 33.3 pg [facility] MCHC 34.1 32.3 - 35.7 g/dL [facility] RDW CV 13.9 11.1 - 14.9 % [facility] RDW SD 45.5 35.7 - 48.1 fL [facility] NRBC abs 0.00 0.00 - 0.01 K/cumm [facility] Blood specimen (specimen) 10/22/2019 1:24 AM SCRAP IRON CUTTER 10/22/2019 1:40 AM SCRAP IRON CUTTER Nanci Giron MD LAB BLOOD ORDERABLES Tiffany l Result Performing Organization Address City/[facility]/ZIP Co de Phone Number [facility] Department [place] [address] * POCT glucose (10/22/2019 12:10 AM SCRAP IRON CUTTER) Pathologist [facility] Glucose, POC 139 70 - 199 mg/dL [facility] Blood specimen (specimen) 10/22/2019 12:10 AM SCRAP IRON CUTTER 10/22/2019 12:10 AM SCRAP IRON CUTTER Nanci Giron MD LAB POCT ORDERABLES - DEV ICE Final Result Performing Organization Address [facility] de Phone Number [facility] [place] [address] * (ABNORMAL) CBC without differential (10/21/2019 10:20 PM SCRAP IRON CUTTER) [facility] WBC 10.4(H) 3.8 - 9.9 K/cumm [facility] Hgb 10.3(L) 11.9 - 15.5 g/dL [facility] Comment:Hemoglobin delta due to apparent blood transfusion. Hct 30.7(L) 35.6 - 45.5 % [facility] Plt 144(L) 150 - 400 K/cumm [facility] MPV 9.5 9.1 - 12.3 fL [facility] RBC 3.32(L) 3.90 - 5.20 M/cumm [facility] MCV 92.5 81.3 - 96.4 fL [facility] MCH 31.0 27.1 - 33.3 pg [facility] MCHC 33.6 32.3 - 35.7 g/dL [facility] RDW CV 13.7 11.1 - 14.9 % [facility] RDW SD 46.4 35.7 - 48.1 fL [facility] NRBC abs 0.00 0.00 - 0.01 K/cumm [facility] Blood specimen (specimen) 10/21/2019 10:20 PM SCRAP IRON CUTTER 10/21/2019 10:33 PM SCRAP IRON CUTTER [facility] 10/21/2019 10:47 PM SCRAP IRON CUTTER 1 hour after transfusion of red blood cells is complete Nanci Giron MD LAB BLOOD ORDERABLES Tiffany l Result Performing Organization Address City/[facility]/ZIP Co de Phone Number [facility] [place] [address] * Transfuse RBC (10/21/2019 9:04 PM SCRAP IRON CUTTER) Blood specimen (specimen) Nanci Giron MD BLOOD TRANSFUSION ORDERAB LES Final Result Performing Organization Address [facility] Co de Phone Number [facility] [place] [address] * Transfuse RBC: 1 Units (10/21/2019 9:04 PM SCRAP IRON CUTTER) Blood specimen (specimen) Nanci Giron MD BLOOD TRANSFUSION ORDERAB LES Final Result * XR Chest 1 View (10/21/2019 8:38 PM SCRAP IRON CUTTER) Anatomical Region Laterality Modality Body, Chest N/A Computed Radiogr aphy 10/22/2019 8:07 AM SCRAP IRON CUTTER Impressions 10/22/2019 10:47 AM SCRAP IRON CUTTER First exam comparison is made with chest [...] Werner Calvillo M.D. Narrative 10/22/2019 10:47 AM SCRAP IRON CUTTER Examination: 2 portable chests Chest one view [...] esult * POCT glucose (10/21/2019 8:24 PM SCRAP IRON CUTTER) Pathologist [facility] Glucose, POC 158 70 - 199 mg/dL [facility] Blood specimen (specimen) 10/21/2019 8:24 PM SCRAP IRON CUTTER 10/21/2019 8:24 PM SCRAP IRON CUTTER Nanci Giron MD LAB POCT ORDERABLES - DEV ICE Final Result [facility] Department of Laboratories [place], [place] [id number] * MRSA Only (Staphylococcus aureus) Culture Nasal (10/21/2019 6:50 PM SCRAP IRON CUTTER) Report Final Report: Negative [facility] Nasal 10/21/2019 6:50 PM SCRAP IRON CUTTER 10/21/2019 7:17 PM SCRAP IRON CUTTER Narrative [facility] - 10/22/2019 9:58 PM SCRAP IRON CUTTER Testing performed by [facility] ([phone]). Mario House MD LAB MICROBIOLOGY - GEN ERAL ORDERABLES Final Result Performing Organization Address [facility] Co de Phone Number [facility] Department [place] [address] * Infection Prevention MRSA Only (Staphylococcus aureus) Culture Nasal (10/21/2019 6:50 PM SCRAP IRON CUTTER) Report Final Report: Negative [facility] Nasal 10/21/2019 6:50 PM SCRAP IRON CUTTER 10/21/2019 7:17 PM SCRAP IRON CUTTER Narrative [facility] - 10/23/2019 7:21 AM SCRAP IRON CUTTER Testing performed by [facility] ([phone]). Nanci Giron MD LAB MICROBIOLOGY - GENERA L ORDERABLES Final Result Performing Organization Address [facility] de Phone Number [facility] Department [place] [address] * (ABNORMAL) Blood gas, arterial (10/21/2019 6:47 PM SCRAP IRON CUTTER) pH, Art 7.34(L) 7.35 - 7.45 [facility] PCO2, Arterial 38 35 - 45 mmHg [facility] PO2, Arterial 161(H) 83 - 108 mmHg [facility] HCO3 Art (Calculated) 21 20 - 30 mmol/L [facility] BE, art -5 mmol/L [facility] Comment: Interpretive Data No Reference Range Established Current Interpretive Data was last revised on 2017 O2 Sat Art (Measured) 99(H) 90 - 95 % [facility] Blood specimen (specimen) 10/21/2019 6:47 PM SCRAP IRON CUTTER 10/21/2019 6:50 PM [employer] IR[employer] C[employer]TER Nanci Giron MD LAB BLOOD ORDERABLES Tiffany l Result Performing Organization Address [facility] Co de Phone Number [facility] [place] [address] * Potassium, whole blood (10/21/2019 6:47 PM SCRAP IRON CUTTER) [facility] Potassium, bld 4.3 3.3 - 4.9 mmol/L [facility] Blood specimen (specimen) 10/21/2019 6:47 PM SCRAP IRON CUTTER 10/21/2019 6:50 PM SCRAP IRON CUTTER Nanci Giron MD LAB BLOOD ORDERABLES Tiffany l Result Performing Organization Address [facility] [place] [address] * Prepare RBC: 1 Units (10/21/2019 6:34 PM SCRAP IRON CUTTER) [facility] Product code [id number] [facility] Unit Number [id number] [facility] Product Blood Type OPOS [facility] Dispense Status PRESUMED TRANSFUSED [facility] Blood specimen (specimen) 10/21/2019 6:34 PM S[facility] IR[employer] C[employer]TER 10/21/2019 6:34 PM SCRAP IRON C[employer]TER Narrative [facility] - 10/22/2019 12:48 AM SCRAP IRON CUTTER Are special requirements needed? (all products are leukoreduced)->No Date required:-20191021 LRRBC # of [id number] Reasons:-Active bleeding, Hgb <8 g/dL} Nanci Giron MD BLOOD BANK PRODUCT ORDERA BLES Final Result Performing Organization Address [facility] Co de Phone Number [facility] [place] [address] * Lactate, whole blood (10/21/2019 5:29 PM SCRAP IRON CUTTER) [facility] Lactate, bld 1.7 0.7 - 2.0 mmol/L [facility] Blood specimen (specimen) 10/21/2019 5:29 PM SCR[employer] IRON CUTTER 10/21/2019 5:34 PM SCR[employer] IRON C[employer]TER Nanci Giron MD LAB BLOOD ORDERABLES Tiffany l Result Performing Organization Address [facility] de Phone Number [facility] [place] [address] * aPTT (10/21/2019 5:29 PM SCRAP IRON CUTTER) aPTT 27 25 - 37 sec [facility] Comment: Interpretive data Heparin therapeutic range: 60-90 seconds Range based on correlation with therapeutic heparin activity range of 0.3-0.7 units/ml. Current interpretive data was last revised on 2019. Blood specimen (specimen) 10/21/2019 5:29 PM SCRAP IRON CUTTER 10/21/2019 5:59 PM SCRAP IRON CUTTER Result [facility] Nanci Grion MD LAB BLOOD ORDERABLES Tiffany l Result Performing Organization Address [facility] de Phone Number [facility] [place] [address] * (ABNORMAL) Protime-INR (10/21/2019 5:29 PM SCRAP IRON CUTTER) PT 15.6(H) 8.6 - 13.0 sec [facility] INR 1.4(H) 0.8 - 1.2 [facility] Comment: Interpretive data Oral anticoagulant therapeutic ranges: Venous thromboembolism prophylaxis or treatment: 2.0-3.0 CARDIOLOGY Standard range: 2.0-3.0 High-intensity range: 2.5-3.5 Refer to indication-specific guidelines for appropriate target ranges for prosthetic heart valve replacement. Current interpretive data was last revised on 2019. Blood specimen (specimen) 10/21/2019 5:29 PM SCR[facility] IRON C[employer]TER 10/21/2019 5:59 PM SCRAP IRON CUTTER Result [facility] Nanci Giron MD LAB BLOOD ORDERABLES Tiffany l Result [facility] Department [place] [address] * (ABNORMAL) CBC without differential (10/21/2019 5:29 PM SCRAP IRON CUTTER) WBC 13.8(H) 3.8 - 9.9 K/cumm [facility] Hgb 7.1(L) 11.9 - 15.5 g/dL [facility] Comment:Hemoglobin delta due to surgical procedure. Hct 21.8(L) 35.6 - 45.5 % [facility] Plt 144(L) 150 - 400 K/cumm [facility] MPV 9.5 9.1 - 12.3 fL [facility] RBC 2.31(L) 3.90 - 5.20 M/cumm [facility] MCV 94.4 81.3 - 96.4 fL [facility] MCH 30.7 27.1 - 33.3 pg [facility] MCHC 32.6 32.3 - 35.7 g/dL [facility] RDW CV 13.8 11.1 - 14.9 % [facility] RDW SD 47.0 35.7 - 48.1 fL [facility] NRBC abs 0.00 0.00 - 0.01 K/cumm [facility] Blood specimen (specimen) 10/21/2019 5:29 PM SCR[employer] IRON C[employer]TER 10/21/2019 5:36 PM [employer]CR[employer] C[employer]TER Nanci Giron MD LAB BLOOD ORDERABLES Tiffany l Result [facility] Department [place] [address] * (ABNORMAL) Blood gas, arterial (10/21/2019 5:29 PM SCRAP IRON CUTTER) pH, Art 7.33(L) 7.35 - 7.45 [facility] PCO2, Arterial 38 35 - 45 mmHg [facility] PO2, Arterial 156(H) 83 - 108 mmHg [facility] HCO3 Art (Calculated) 20 20 - 30 mmol/L [facility] BE, art -6 mmol/L [facility] Comment: Interpretive Data No Reference Range Established Current Interpretive Data was last revised on 2017 O2 Sat Art (Measured) 99(H) 90 - 95 % [facility] Blood specimen (specimen) 10/21/2019 5:29 PM SCR[employer] IRON CUTTER 10/21/2019 5:34 PM SCRAP IRON CUTTER us Nanci Giron MD LAB BLOOD ORDERABLES Tiffany pacheco Result [facility] Department [place] [address] * (ABNORMAL) Basic metabolic panel (10/21/2019 5:29 PM SCRAP IRON CUTTER) Sodium 139 135 - 145 mmol/L [facility] Potassium, pl 4.3 3.3 - 4.9 mmol/L [facility] Chloride 113(H) 97 - 110 mmol/L [facility] CO2 21(L) 22 - 32 mmol/L [facility] Anion gap 5 2 - 15 mmol/L [facility] BUN 13 8 - 25 mg/dL [facility] Creatinine 0.77 0.60 - 1.10 mg/dL [facility] Glucose 215(H) 70 - 199 mg/dL [facility] Comment: Interpretive Data Fasting glucose >/= [...] 2017. Calcium 8.3(L) 8.5 - 10.3 mg/dL [facility] Blood specimen (specimen) 10/21/2019 5:29 PM SCRAP IRON CUTTER 10/21/2019 5:36 PM SCRAP IRON CUTTER us Nanci Giron MD LAB BLOOD ORDERABLES Tiffany pacheco Result [facility] Department [place] [address] * XR Chest 1 View (10/21/2019 5:27 PM SCRAP IRON CUTTER) Anatomical Region Laterality Modality Body, Chest N/A Computed Radiogr aphy 10/22/2019 8:07 AM SCRAP IRON C[employer]TER Impressions 10/22/2019 10:47 AM SCRAP IRON C[employer]TER First exam comparison is made with chest [...] Werner Calvillo M.D. Narrative 10/22/2019 10:47 AM SCRAP IRON CUTTER Examination: 2 portable chests Chest one view [...] it. Electronically signed by: Werner Calvillo M.D. us Nanci Giron MD IMG XR PROCEDURES Final R esult * (ABNORMAL) POCT glucose (10/21/2019 5:07 PM SCRAP IRON CUTTER) Pathologist [facility] Glucose, POC 218(H) 70 - 199 mg/dL [facility] Blood specimen (specimen) 10/21/2019 5:07 PM SCR[employer] IRON CUTTER 10/21/2019 5:07 PM SCRAP IRON CUTTER us Nanci Giron MD LAB POCT ORDERABLES - DEV ICE Final Result [facility] Department [place] [address] * (ABNORMAL) POC Blood Gas and Chemistries, Arterial - (10/21/2019 3:51 PM SCRAP IRON CUTTER) [facility] pH, Art 7.27(L) 7.35 - 7.45 [facility] pCO2, Art POC 43 35 - 45 mmHg [facility] pO2, Art POC 286(H) 83 - 108 mmHg [facility] Na, POC 136 135 - 145 mmol/L [facility] K POC 4.6 3.3 - 4.9 mmol/L [facility] Cl, POC 110 97 - 110 mmol/L [facility] Ionized Ca, POC 5.92(H) 4.50 - 5.10 mg/dL [facility] Glucose, POC 234(H) 70 - 199 mg/dL [facility] Lactate, POC 1.3 0.7 - 2.2 mmol/L [facility] SO2 (angel) arterial 99(H) 90 - 95 % [facility] Base excess, POC -7.0 mmol/L [facility] HCO3, Art POC 20 20 - 30 mmol/L [facility] Hct, POC 32.0(L) 36.3 - 45.3 % [facility] O2 Sat, Art POC (Calc) 100 % [facility] Total Hb, POC 10.8(L) 11.9 - 15.5 g/dL [facility] Blood specimen (specimen) 10/21/2019 3:51 PM SCRAP IRON CUTTER 10/21/2019 3:51 PM SCR[employer]ON C[employer]TER Nanci Giron MD LAB POCT ORDERABLES - DEV ICE Final Result Performing Organization Address [facility] Co de Phone Number [facility] [place] [address] * POCT Activated clotting time, low range (10/21/2019 3:43 PM SCRAP IRON CUTTER) ACT 129 123 - 168 sec [facility] Blood specimen (specimen) 10/21/2019 3:43 PM SCR[employer] IRON CUTTER 10/21/2019 3:43 PM SCRAP IRON CUTTER us Nanci Giron MD LAB POCT ORDERABLES - DEV ICE Final Result Performing Organization Address [facility] Co de Phone Number [facility] Department [place] [address] * (ABNORMAL) POCT Activated clotting time, low range (10/21/2019 3:06 PM SCRAP IRON CUTTER) ACT 230(H) 123 - 168 sec [facility] Blood specimen (specimen) 10/21/2019 3:06 PM SCRAP IRON CUTTER 10/21/2019 3:06 PM SCR[employer] IRON C[employer]TER Nanci Giron MD LAB POCT ORDERABLES - DEV ICE Final Result Performing Organization Address [facility] Co de Phone Number [facility] [place] [place] [address] * (ABNORMAL) POCT Activated clotting time, low range (10/21/2019 2:37 PM SCRAP IRON CUTTER) [facility] Signature ACT 266(H) 123 - 168 sec [facility] Blood specimen (specimen) 10/21/2019 2:37 PM SCRAP IRON CUTTER 10/21/2019 2:37 PM SCRAP IRON CUTTER Nanci Giron MD LAB POCT ORDERABLES - DEV ICE Final Result Performing Organization Address [facility]/ZIP Co de Phone Number [facility] [place] [address] * (ABNORMAL) POCT Activated clotting time, low range (10/21/2019 2:10 PM SCRAP IRON CUTTER) [facility] ACT 276(H) 123 - 168 sec [facility] Blood specimen (specimen) 10/21/2019 2:10 PM SCRAP IRON CUTTER 10/21/2019 2:10 PM SCRAP IRON CUTTER Nanci Giron MD LAB POCT ORDERABLES - DEV ICE Final Result Performing Organization Address [facility] Co de Phone Number [facility] [place] [address] * (ABNORMAL) POC Blood Gas and Chemistries, Arterial - (10/21/2019 2:06 PM SCRAP IRON CUTTER) [facility] pH, Art 7.30(L) 7.35 - 7.45 [facility] pCO2, Art POC 43 35 - 45 mmHg [facility] pO2, Art POC 191(H) 83 - 108 mmHg [facility] Na, POC 138 135 - 145 mmol/L [facility] K POC 3.9 3.3 - 4.9 mmol/L [facility] Cl, POC 108 97 - 110 mmol/L [facility] Ionized Ca, POC 4.64 4.50 - 5.10 mg/dL [facility] Glucose, POC 162 70 - 199 mg/dL [facility] Lactate, POC 0.6(L) 0.7 - 2.2 mmol/L [facility] SO2 (angel) arterial 100(H) 90 - 95 % [facility] Base excess, POC -5.1 mmol/L [facility] HCO3, Art POC 21 20 - 30 mmol/L [facility] Hct, POC 33.0(L) 36.3 - 45.3 % [facility] O2 Sat, Art POC (Calc) 100 % [facility] Total Hb, POC 11.0(L) 11.9 - 15.5 g/dL [facility] Blood specimen (specimen) 10/21/2019 2:06 PM SCR[employer] IRON CUTTER 10/21/2019 2:06 PM SCRAP IRON CUTTER us Nanci Giron MD LAB POCT ORDERABLES - DEV ICE Final Result Performing Organization Address [facility] Co de Phone Number [facility] [place] [address] * (ABNORMAL) POCT Activated clotting time, low range (10/21/2019 1:34 PM SCRAP IRON CUTTER) ACT 236(H) 123 - 168 sec [facility] Blood specimen (specimen) 10/21/2019 1:34 PM SCRAP IRON CUTTER 10/21/2019 1:34 PM SCRAP IRON CUTTER us Nanci Giron MD LAB POCT ORDERABLES - DEV ICE Final Result Performing Organization Address [facility] de Phone Number [facility] [place] [employer] [place] [address] * (ABNORMAL) POCT Activated clotting time, low range (10/21/2019 1:08 PM SCRAP IRON CUTTER) ACT 207(H) 123 - 168 sec [facility] Blood specimen (specimen) 10/21/2019 1:08 PM SCRAP IRON CUTTER 10/21/2019 1:08 PM SCRAP IRON CUTTER Nanci Giron MD LAB POCT ORDERABLES - DEV ICE Final Result Performing Organization Address [facility] Co de Phone Number [facility] [place] [address] * (ABNORMAL) POCT Activated clotting time, low range (10/21/2019 12:19 PM SCRAP IRON CUTTER) Pathologist [facility] ACT 250(H) 123 - 168 sec [facility] Blood specimen (specimen) 10/21/2019 12:19 PM SCRAP IRON CUTTER 10/21/2019 12:19 PM SCRAP IRON CUTTER us Nanci Giron MD LAB POCT ORDERABLES - DEV ICE Final Result [facility] Department [place] [address] * Differential, auto (10/20/2019 11:02 PM SCRAP IRON CUTTER) [facility] Neutrophil abs 2.6 1.7 - 6.5 K/cumm [facility] Imm gran abs 0.0 0.0 - 0.1 K/cumm [facility] Lymphocyte abs 2.6 0.8 - 3.3 K/cumm [facility] Monocyte abs 0.5 0.2 - 0.8 K/cumm [facility] Eosinophil abs 0.1 0.0 - 0.5 K/cumm [facility] Basophil abs 0.0 0.0 - 0.1 K/cumm [facility] Neutrophil pct 43.6 % [facility] Comment: Interpretive Data Percent cell count reference ranges are not reported, since discordance with absolute values may lead to misinterpretation of CBC data. Current Interpretive Data was last revised on 2017. Imm gran pct 0.3 % [facility] Comment: Interpretive Data Percent cell count reference ranges are not reported, since discordance with absolute values may lead to misinterpretation of CBC data. Current Interpretive Data was last revised on 2017. Lymphocyte pct 44.7 % [facility] Comment: Interpretive Data Percent cell count reference ranges are not reported, since discordance with absolute values may lead to misinterpretation of CBC data. Current Interpretive Data was last revised on 2017. Monocyte pct 8.7 % [facility] Comment: Interpretive Data Percent cell count reference ranges are not reported, since discordance with absolute values may lead to misinterpretation of CBC data. Current Interpretive Data was last revised on 2017. Eosinophil pct 2.0 % [facility] Comment: Interpretive Data Percent cell count reference ranges are not reported, since discordance with absolute values may lead to misinterpretation of CBC data. Current Interpretive Data was last revised on 2017. Basophil pct 0.7 % [facility] Comment: Interpretive Data Percent cell count reference ranges are not reported, since discordance with absolute values may lead to misinterpretation of CBC data. Current Interpretive Data was last revised on 2017. Blood specimen (specimen) 10/20/2019 11:02 PM SCRAP IRON CUTTER 10/21/2019 12:28 AM SCRAP IRON CUTTER Annemarie Lynne NP LAB BLOOD ORDERABLES F inal Result [facility] Department [place] [address] * CBC with auto differential (10/20/2019 11:02 PM SCRAP IRON CUTTER) WBC 5.9 3.8 - 9.9 K/cumm [facility] Hgb 12.4 11.9 - 15.5 g/dL [facility] Hct 38.0 35.6 - 45.5 % [facility] Plt 231 150 - 400 K/cumm [facility] MPV 9.6 9.1 - 12.3 fL [facility] RBC 4.08 3.90 - 5.20 M/cumm [facility] MCV 93.1 81.3 - 96.4 fL [facility] MCH 30.4 27.1 - 33.3 pg [facility] MCHC 32.6 32.3 - 35.7 g/dL [facility] RDW CV 13.8 11.1 - 14.9 % [facility] RDW SD 46.7 35.7 - 48.1 fL [facility] NRBC abs 0.00 0.00 - 0.01 K/cumm [facility] Blood specimen (specimen) 10/20/2019 11:02 PM SCR[employer] IRON CUTTER 10/21/2019 12:28 AM SCRAP IRON CUTTER Annemarie Lynne NP LAB BLOOD ORDERABLES F inal Result Performing Organization Address City/[facility]/ZIP Co de Phone Number [facility] Department [place] [address] * (ABNORMAL) Basic metabolic panel (10/20/2019 11:02 PM SCRAP IRON CUTTER) [facility] Sodium 136 135 - 145 mmol/L [facility] Potassium, pl 4.2 3.3 - 4.9 mmol/L [facility] Chloride 103 97 - 110 mmol/L [facility] CO2 21(L) 22 - 32 mmol/L [facility] Anion gap 12 2 - 15 mmol/L [facility] BUN 15 8 - 25 mg/dL [facility] Creatinine 0.83 0.60 - 1.10 mg/dL [facility] Glucose 102 70 - 199 mg/dL [facility] Comment: Interpretive Data Fasting glucose >/= [...] 2017. Calcium 9.6 8.5 - 10.3 mg/dL [facility] Blood specimen (specimen) 10/20/2019 11:02 PM SCRAP IRON CUTTER 10/21/2019 12:22 AM SCRAP IRON CUTTER Annemarie Lynne NP LAB BLOOD ORDERABLES F inal Result Performing Organization Address City/[facility]/ZIP Co de Phone Number [facility] Department [place] [address] * Type and screen (10/20/2019 12:17 PM SCRAP IRON CUTTER) Mara, indirect Negative [facility] ABO Rh O [facility] Blood specimen (specimen) 10/20/2019 12:17 PM SCRAP IRON CUTTER 10/20/2019 12:53 PM SCRAP IRON CUTTER Narrative [facility] - 10/20/2019 2:21 PM SCRAP IRON CUTTER Has the patient had Daratumumab (Darzalex) in the past 6 months?->Unknown Annemarie Lynne NP LAB BLOOD BANK TEST OR DERABLES Final Result [facility] Department [place] [address] * Prepare RBC: 4 Units (10/20/2019 9:43 AM SCRAP IRON CUTTER) Product code [id number] [facility] Unit Number [id number] 0-K [facility] Product Blood Type OPOS [facility] Dispense Status RETURNED [facility] Product code [id number] [facility] Unit Number [id number] 2-E [facility] Product Blood Type OPOS [facility] Dispense Status RETURNED [facility] Product code [id number] [facility] Unit Number [id number] 0-G [facility] Product Blood Type OPOS [facility] Dispense Status RETURNED [facility] Product code [id number] [facility] Unit Number [id number] 2-K [facility] Product Blood Type OPOS [facility] Dispense Status RETURNED [facility] Blood specimen (specimen) 10/20/2019 9:43 AM SCRAP IRON CUTTER 10/20/2019 9:43 AM SCRAP IRON CUTTER [facility] - 10/21/2019 6:35 PM SCRAP IRON CUTTER 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 (all products are leukoreduced)->No Date required:-[id number] LRRBC # of [id number] Reasons:-Hold for procedure (specify procedure)} us Annemarie Lynne NP BLOOD BANK PRODUCT ORD ERABLES Final Result [facility] Department [place] [address] * Differential, auto (10/20/2019 12:36 AM SCRAP IRON CUTTER) Neutrophil abs 3.2 1.7 - 6.5 K/cumm [facility] Imm gran abs 0.0 0.0 - 0.1 K/cumm [facility] Lymphocyte abs 2.6 0.8 - 3.3 K/cumm [facility] Monocyte abs 0.6 0.2 - 0.8 K/cumm [facility] Eosinophil abs 0.1 0.0 - 0.5 K/cumm [facility] Basophil abs 0.0 0.0 - 0.1 K/cumm [facility] Neutrophil pct 48.3 % [facility] Comment: Interpretive Data Percent cell count reference ranges are not reported, since discordance with absolute values may lead to misinterpretation of CBC data. Current Interpretive Data was last revised on 2017. Imm gran pct 0.3 % [facility] Comment: Interpretive Data Percent cell count reference ranges are not reported, since discordance with absolute values may lead to misinterpretation of CBC data. Current Interpretive Data was last revised on 2017. Lymphocyte pct 39.5 % [facility] Comment: Interpretive Data Percent cell count reference ranges are not reported, since discordance with absolute values may lead to misinterpretation of CBC data. Current Interpretive Data was last revised on 2017. Monocyte pct 9.9 % [facility] Comment: Interpretive Data Percent cell count reference ranges are not reported, since discordance with absolute values may lead to misinterpretation of CBC data. Current Interpretive Data was last revised on 2017. Eosinophil pct 1.4 % [facility] Comment: Interpretive Data Percent cell count reference ranges are not reported, since discordance with absolute values may lead to misinterpretation of CBC data. Current Interpretive Data was last revised on 2017. Basophil pct 0.6 % [facility] Comment: Interpretive Data Percent cell count reference ranges are not reported, since discordance with absolute values may lead to misinterpretation of CBC data. Current Interpretive Data was last revised on 2017. Blood specimen (specimen) 10/20/2019 12:36 AM SCRAP IRON CUTTER 10/20/2019 1:34 AM SCRAP IRON CUTTER Annemarie Lynne NP LAB BLOOD ORDERABLES F inal Result Performing Organization Address [facility] Co de Phone Number [facility] Department [place] [address] * (ABNORMAL) CBC with auto differential (10/20/2019 12:36 AM SCRAP IRON CUTTER) WBC 6.6 3.8 - 9.9 K/cumm [facility] Hgb 12.0 11.9 - 15.5 g/dL [facility] Hct 35.7 35.6 - 45.5 % [facility] Plt 213 150 - 400 K/cumm [facility] MPV 9.6 9.1 - 12.3 fL [facility] RBC 3.86(L) 3.90 - 5.20 M/cumm [facility] MCV 92.5 81.3 - 96.4 fL [facility] MCH 31.1 27.1 - 33.3 pg [facility] MCHC 33.6 32.3 - 35.7 g/dL [facility] RDW CV 14.0 11.1 - 14.9 % [facility] RDW SD 47.6 35.7 - 48.1 fL [facility] NRBC abs 0.00 0.00 - 0.01 K/cumm [facility] Blood specimen (specimen) 10/20/2019 12:36 AM SCRAP IRON CUTTER 10/20/2019 1:34 AM SCRAP IRON CUTTER Annemarie Lynne NP LAB BLOOD ORDERABLES F inal Result Performing Organization Address [facility] Co de Phone Number [facility] Department [place] [address] * Basic metabolic panel (10/20/2019 12:36 AM SCRAP IRON CUTTER) Pathologist [facility] Sodium 138 135 - 145 mmol/L [facility] Potassium, pl 4.0 3.3 - 4.9 mmol/L [facility] Chloride 105 97 - 110 mmol/L [facility] CO2 24 22 - 32 mmol/L [facility] Anion gap 9 2 - 15 mmol/L [facility] BUN 19 8 - 25 mg/dL [facility] Creatinine 0.85 0.60 - 1.10 mg/dL [facility] Glucose 111 70 - 199 mg/dL [facility] Comment: Interpretive Data Fasting glucose >/= [...] 2017. Calcium 9.0 8.5 - 10.3 mg/dL [facility] Blood specimen (specimen) 10/20/2019 12:36 AM SCRAP IRON CUTTER 10/20/2019 1:33 AM SCRAP IRON CUTTER Annemarie Lynne NP LAB BLOOD ORDERABLES F inal Result [facility] Department [place] [address] * US Groin Pseudo Duplex Right (10/19/2019 10:30 AM SCRAP IRON CUTTER) Anatomical Region Laterality Modality Vascular Right Ultrasound 10/19/2019 10:4 8 AM SCRAP IRON CUTTER Impressions 10/19/2019 11:30 AM SCRAP IRON CUTTER 1. No pseudoaneurysm or arteriovenous fistula of the right groin. 2. No groin hematoma. Electronically signed by: Sol Israel M.D. Narrative 10/19/2019 11:30 AM SCRAP IRON CUTTER EXAMINATION: LIMITED RIGHT GROIN SONOGRAM AND DOPPLER [...] Result * Differential, auto (10/19/2019 12:13 AM SCRAP IRON CUTTER) Neutrophil abs 4.3 1.7 - 6.5 K/cumm [facility] Imm gran abs 0.0 0.0 - 0.1 K/cumm [facility] Lymphocyte abs 2.4 0.8 - 3.3 K/cumm [facility] Monocyte abs 0.6 0.2 - 0.8 K/cumm [facility] Eosinophil abs 0.1 0.0 - 0.5 K/cumm [facility] Basophil abs 0.0 0.0 - 0.1 K/cumm [facility] Neutrophil pct 58.0 % [facility] Comment: Interpretive Data Percent cell count reference ranges are not reported, since discordance with absolute values may lead to misinterpretation of CBC data. Current Interpretive Data was last revised on 2017. Imm gran pct 0.3 % [facility] Comment: Interpretive Data Percent cell count reference ranges are not reported, since discordance with absolute values may lead to misinterpretation of CBC data. Current Interpretive Data was last revised on 2017. Lymphocyte pct 32.5 % [facility] Comment: Interpretive Data Percent cell count reference ranges are not reported, since discordance with absolute values may lead to misinterpretation of CBC data. Current Interpretive Data was last revised on 2017. Monocyte pct 7.6 % [facility] Comment: Interpretive Data Percent cell count reference ranges are not reported, since discordance with absolute values may lead to misinterpretation of CBC data. Current Interpretive Data was last revised on 2017. Eosinophil pct 1.1 % [facility] Comment: Interpretive Data Percent cell count reference ranges are not reported, since discordance with absolute values may lead to misinterpretation of CBC data. Current Interpretive Data was last revised on 2017. Basophil pct 0.5 % [facility] Comment: Interpretive Data Percent cell count reference ranges are not reported, since discordance with absolute values may lead to misinterpretation of CBC data. Current Interpretive Data was last revised on 2017. Blood specimen (specimen) 10/19/2019 12:13 AM SCRAP IRON CUTTER 10/19/2019 12:43 AM SCRAP IRON CUTTER us Annemarie Lynne NP LAB BLOOD ORDERABLES F inal Result [facility] Department [place] [address] * (ABNORMAL) CBC with auto differential (10/19/2019 12:13 AM SCRAP IRON CUTTER) WBC 7.4 3.8 - 9.9 K/cumm [facility] Hgb 12.1 11.9 - 15.5 g/dL [facility] Hct 35.8 35.6 - 45.5 % [facility] Plt 226 150 - 400 K/cumm [facility] MPV 9.5 9.1 - 12.3 fL [facility] RBC 3.85(L) 3.90 - 5.20 M/cumm [facility] MCV 93.0 81.3 - 96.4 fL [facility] MCH 31.4 27.1 - 33.3 pg [facility] MCHC 33.8 32.3 - 35.7 g/dL [facility] RDW CV 13.8 11.1 - 14.9 % [facility] RDW SD 47.0 35.7 - 48.1 fL [facility] NRBC abs 0.00 0.00 - 0.01 K/cumm [facility] Blood specimen (specimen) 10/19/2019 12:13 AM SCRAP IRON CUTTER 10/19/2019 12:43 AM SCRAP IRON CUTTER Annemarie Lynne NP LAB BLOOD ORDERABLES F inal Result [facility] Department [place] [address] * Basic metabolic panel (10/19/2019 12:13 AM SCRAP IRON CUTTER) Sodium 138 135 - 145 mmol/L [facility] Potassium, pl 4.0 3.3 - 4.9 mmol/L [facility] Chloride 105 97 - 110 mmol/L [facility] CO2 24 22 - 32 mmol/L [facility] Anion gap 9 2 - 15 mmol/L [facility] BUN 18 8 - 25 mg/dL [facility] Creatinine 0.89 0.60 - 1.10 mg/dL [facility] Glucose 129 70 - 199 mg/dL [facility] Comment: Interpretive Data Fasting glucose >/= [...] Calcium 8.6 8.5 - 10.3 mg/dL [facility] Blood specimen (specimen) 10/19/2019 12:13 AM SCRAP IRON CUTTER 10/19/2019 12:43 AM SCRAP IRON CUTTER us Annemarie Lynne NP LAB BLOOD ORDERABLES F inal Result [facility] Department [place] [address] * MRI Brain and MRA Head W WO Contrast (10/18/2019 7:03 PM SCRAP IRON CUTTER) Anatomical Region Laterality Modality Head and Neck N/A Magnetic Resonan ce 10/19/2019 9:39 AM SCRAP IRON CUTTER Impressions 10/19/2019 9:58 AM SCRAP IRON CUTTER 1. ??Severe stenosis of the innominate artery [...] Dara Dawson M.D. Narrative 10/19/2019 9:58 AM SCRAP IRON CUTTER EXAMINATION: Magnetic resonance imaging (MRI) of the brain and brainstem without and with contrast Magnetic resonance angiography (MRA) of the xzyogn-gg-Exdgmd without and with contrast Magnetic resonance angiography (MRA) of the neck without and with contrast HISTORY: Right innominate artery stenosis. TECHNIQUE: Multiplanar multi-weighted MRI of the brain and brainstem was performed without and with intravenous contrast using the general brain protocol. Magnetic resonance angiography of the ujzpge-xy-Xorxyr was performed using separate data set acquisitions including a non-contrast bvey-oy-fcwbkj technique and a post-contrast technique to produce axial thin-slice source images. Magnetic resonance angiography of the neck was performed using a non-contrast lphl-du-qwiznk technique and a post-contrast technique to produce [...] within the intracranial right vertebral artery on jkud-jh-leqoek images with subsequent enhancement compatible with slow [...] contrast Magnetic resonance angiography (MRA) of the ynjhwh-hc-Nyiedx without and with contrast Magnetic resonance angiography (MRA) of the neck without and with contrast HISTORY: Right innominate artery stenosis. TECHNIQUE: Multiplanar multi-weighted MRI of the brain and brainstem was performed without and with intravenous contrast using the general brain protocol. Magnetic resonance angiography of the pdhupl-ts-Ixtraj was performed using separate data set acquisitions including a non-contrast monl-nc-ztnagq technique and a post-contrast technique to produce axial thin-slice source images. Magnetic resonance angiography of the neck was performed using a non-contrast yjng-li-jefaro technique and a post-contrast technique to produce [...] within the intracranial right vertebral artery on urxu-ju-bzfdyo images with subsequent enhancement compatible with slow [...] it. Electronically signed by: Dara Dawson M.D. us Nanci Giron MD [facility] MRI PROCEDURES Final Result * MRA Neck W WO Contrast (10/18/2019 7:03 PM SCRAP IRON CUTTER) Anatomical Region Laterality Modality Head and Neck N/A Magnetic Resonan ce 10/19/2019 9:39 AM SCRAP IRON CUTTER Impressions 10/19/2019 9:58 AM SCRAP IRON CUTTER 1. ??Severe stenosis of the innominate artery [...] Dara Dawson M.D. Narrative 10/19/2019 9:58 AM SCRAP IRON CUTTER EXAMINATION: Magnetic resonance imaging (MRI) of the brain and brainstem without and with contrast Magnetic resonance angiography (MRA) of the eghtjp-xt-Mkwxxb without and with contrast Magnetic resonance angiography (MRA) of the neck without and with contrast HISTORY: Right innominate artery stenosis. TECHNIQUE: Multiplanar multi-weighted MRI of the brain and brainstem was performed without and with intravenous contrast using the general brain protocol. Magnetic resonance angiography of the cbbkel-nl-Chobed was performed using separate data set acquisitions including a non-contrast qlgb-ye-tatfzr technique and a post-contrast technique to produce axial thin-slice source images. Magnetic resonance angiography of the neck was performed using a non-contrast obaa-xh-ykbteq technique and a post-contrast technique to produce [...] within the intracranial right vertebral artery on wurh-zn-seikij images with subsequent enhancement compatible with slow [...] contrast Magnetic resonance angiography (MRA) of the ellkww-im-Hdlfwi without and with contrast Magnetic resonance angiography (MRA) of the neck without and with contrast HISTORY: Right innominate artery stenosis. TECHNIQUE: Multiplanar multi-weighted MRI of the brain and brainstem was performed without and with intravenous contrast using the general brain protocol. Magnetic resonance angiography of the lfwono-pj-Neeaff was performed using separate data set acquisitions including a non-contrast ooaf-ld-qxbgzy technique and a post-contrast technique to produce axial thin-slice source images. Magnetic resonance angiography of the neck was performed using a non-contrast hynh-jh-jzuyjq technique and a post-contrast technique to produce [...] within the intracranial right vertebral artery on yckm-fa-fhwwrx images with subsequent enhancement compatible with slow [...] by: Dara Dawson M.D. Nanci Giron MD [facility] MRI PROCEDURES Final Result * LEFT HEART CATHETERIZATION WITH CORONARY ANGIOGRAPHY AND WITH AND WITHOUT LEFT VENTRICULOGRAM (10/18/2019 11:21 AM SCRAP IRON CUTTER) Anatomical Region Laterality Modality X-Ray Angiograph y 10/18/2019 Narrative 10/18/2019 3:40 PM SCRAP IRON CUTTER [employer] Job ID: [id number] [employer] Document ID: [id number] Dictated date/time: CARDIAC CATHETERIZATION Patient of Azar Ramírez and [...] refer to the pre cath workup in [facility], which I have reviewed and cosigned today. PROCEDURE Ms. 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 ??She was prepared by the [...] bleeding or hematoma. Selective coronary arteriograms Johanny 5-Belgian JL4.5 left coronary catheter, 4-Belgian WRP right coronary catheter. ??A 4-Belgian straight pigtail was then passed to the LV for LV pressure measurement. A 6-Belgian Angio-Seal was then deployed with immediate excellent hemostasis. ??This turned out to be an early generation Angio-Seal but it worked well, with good hemostasis. The procedure was concluded. ??I provided direct uuxr-vo-tepa monitoring of conscious sedation which was administered [...] for coronary revascularization. JOB ID/VF JOB ID: ??[id number] us Nanci Giron MD CV CARDIAC CATH PROCEDURE S Final Result * (ABNORMAL) CBC without differential (10/18/2019 10:37 AM SCRAP IRON CUTTER) [facility] WBC 4.7 3.8 - 9.9 K/cumm [facility] Hgb 12.0 11.9 - 15.5 g/dL [facility] Hct 36.1 35.6 - 45.5 % [facility] Plt 222 150 - 400 K/cumm [facility] MPV 9.6 9.1 - 12.3 fL [facility] RBC 3.83(L) 3.90 - 5.20 M/cumm [facility] MCV 94.3 81.3 - 96.4 fL [facility] MCH 31.3 27.1 - 33.3 pg [facility] MCHC 33.2 32.3 - 35.7 g/dL [facility] RDW CV 13.7 11.1 - 14.9 % [facility] RDW SD 46.8 35.7 - 48.1 fL [facility] NRBC abs 0.00 0.00 - 0.01 K/cumm [facility] Blood specimen (specimen) 10/18/2019 10:37 AM SCRAP IRON CUTTER 10/18/2019 11:12 AM SCRAP IRON CUTTER Jd Sinha MD LAB BLOOD ORDERABLES Final Result Performing Organization Address [facility] [place] [address] * Type and screen (10/18/2019 1:02 AM SCRAP IRON CUTTER) Mara, indirect Negative [facility] ABO Rh O Positive [facility] Blood specimen (specimen) 10/18/2019 1:02 AM SCRAP IRON CUTTER 10/18/2019 1:34 AM SCRAP IRON CUTTER Narrative [facility] - 10/18/2019 2:19 AM SCRAP IRON CUTTER Has the patient had Daratumumab (Darzalex) in the past 6 months?->Unknown Nanci Giron MD LAB BLOOD BANK TEST ORDER EDD Final Result Performing Organization Address [facility] [place] [address] * aPTT (10/18/2019 1:02 AM SCRAP IRON CUTTER) aPTT 33 25 - 37 sec [facility] Comment: Interpretive data Heparin therapeutic range: 60-90 seconds Range based on correlation with therapeutic heparin activity range of 0.3-0.7 units/ml. Current interpretive data was last revised on 2019. Blood specimen (specimen) 10/18/2019 1:02 AM SCRAP IRON CUTTER 10/18/2019 1:24 AM SCRAP IRON CUTTER Nanci Giron MD LAB BLOOD ORDERABLES Tiffany l Result Performing Organization Address [facility] Co de Phone Number [facility] [place] [address] * Phosphorus (10/18/2019 1:02 AM SCRAP IRON CUTTER) Phosphorus, pl 3.3 2.3 - 4.5 mg/dL [facility] Blood specimen (specimen) 10/18/2019 1:02 AM SCRAP IRON CUTTER 10/18/2019 1:27 AM SCRAP IRON CUTTER Nanci Giron MD LAB BLOOD ORDERABLES Tiffany l Result Performing Organization Address [facility] Co de Phone Number [facility] Department [place] [address] * Magnesium (10/18/2019 1:02 AM SCRAP IRON CUTTER) Pathologist [facility] Magnesium 2.3 1.4 - 2.5 mg/dL [facility] Blood specimen (specimen) 10/18/2019 1:02 AM SCRAP IRON CUTTER 10/18/2019 1:27 AM SCRAP IRON CUTTER Result [facility] Nanci Giron MD LAB BLOOD ORDERABLES Tiffany l Result Performing Organization Address [facility] de Phone Number [facility] [place] [address] * Protime-INR (10/18/2019 1:02 AM SCRAP IRON CUTTER) Pathologist [facility] PT 11.2 8.6 - 13.0 sec [facility] INR 1.0 0.8 - 1.2 [facility] Comment: Interpretive data Oral anticoagulant therapeutic ranges: Venous thromboembolism prophylaxis or treatment: 2.0-3.0 CARDIOLOGY Standard range: 2.0-3.0 High-intensity range: 2.5-3.5 Refer to indication-specific guidelines for appropriate target ranges for prosthetic heart valve replacement. Current interpretive data was last revised on 2019. Blood specimen (specimen) 10/18/2019 1:02 AM SCRAP IRON CUTTER 10/18/2019 1:24 AM SCRAP IRON CUTTER Result [facility] Nanci Giron MD LAB BLOOD ORDERABLES Tiffany l Result [facility] Department [place] [address] * Basic metabolic panel (10/18/2019 1:02 AM SCRAP IRON CUTTER) Sodium 139 135 - 145 mmol/L [facility] Potassium, pl 3.5 3.3 - 4.9 mmol/L [facility] Chloride 104 97 - 110 mmol/L [facility] CO2 27 22 - 32 mmol/L [facility] Anion gap 8 2 - 15 mmol/L [facility] BUN 20 8 - 25 mg/dL [facility] Creatinine 0.91 0.60 - 1.10 mg/dL [facility] Glucose 88 70 - 199 mg/dL [facility] Comment: Interpretive Data Fasting glucose >/= [...] 2017. Calcium 8.9 8.5 - 10.3 mg/dL [facility] Blood specimen (specimen) 10/18/2019 1:02 AM SCRAP IRON CUTTER 10/18/2019 1:27 AM SCRAP IRON CUTTER us Nanci Giron MD LAB BLOOD ORDERABLES Tiffany l Result Performing Organization Address [facility]/ZIP Co de Phone Number [facility] [place] [address] * CBC without differential (10/18/2019 1:02 AM SCRAP IRON CUTTER) WBC 6.6 3.8 - 9.9 K/cumm [facility] Hgb 12.4 11.9 - 15.5 g/dL [facility] Hct 36.6 35.6 - 45.5 % [facility] Plt 230 150 - 400 K/cumm [facility] MPV 9.3 9.1 - 12.3 fL [facility] RBC 3.98 3.90 - 5.20 M/cumm [facility] MCV 92.0 81.3 - 96.4 fL [facility] MCH 31.2 27.1 - 33.3 pg [facility] MCHC 33.9 32.3 - 35.7 g/dL [facility] RDW CV 13.5 11.1 - 14.9 % [facility] RDW SD 45.5 35.7 - 48.1 fL [facility] NRBC abs 0.00 0.00 - 0.01 K/cumm [facility] Blood specimen (specimen) 10/18/2019 1:02 AM SCRAP IRON CUTTER 10/18/2019 1:27 AM SCRAP IRON CUTTER Nanci Giron MD LAB BLOOD ORDERABLES Tiffany l Result [facility] [place] [address] * ECG 12 lead (10/18/2019 12:33 AM SCRAP IRON CUTTER) Ventricular Rate EKG/Min 61 BPM [facility] Atrial Rate 61 BPM [facility] AK-Interval (MSEC) 178 ms [facility] QRS-Interval (MSEC) 108 ms [facility] QT-Interval (MSEC) 456 ms [facility] QTc 459 ms [facility] P [place] 51 degrees [facility] R [place] 12 degrees [facility] T [place] 16 degrees [facility] Diagnosis Normal sinus rhythm Minimal voltage criteria for LVH, may be normal variant Nonspecific ST abnormality Abnormal ECG When compared with ECG of 03-APR-2016 00:04, No significant change was found Confirmed by PAT CORRIGNA M.D ([id number]) on 10/18/2019 12:40:42 PM [facility] 10/18/2019 12:3 3 AM SCRAP IRON CUTTER 10/18/2019 12:40 PM SCRAP IRON CUTTER us Nanci Giron MD ECG ORDERABLES Final Res ult [facility] documented in this encounter Visit Diagnoses Diagnosis Vertebral artery compression syndrome- Primary Cervical spondylosis with myelopathy Vertebral artery compression syndrome Cervical spondylosis with myelopathy 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 Pre-operative cardiovascular examination Vertebrobasilar artery insufficiency Syncope and collapse Acute postoperative pain Other acute postoperative pain 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 Acute respiratory failure with hypoxia (CMS/HCC) (HCC) Orthostatic hypotension Labile hypertension Cervicalgia 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 Cervical spondylosis with [...] MAR Action Action Date Dose Rate Site aspirin tablet 325 mg 325 mg, oral, Daily, First dose on 10/22/19 at 0900 Given 10/27/2019 9:00 AM SCRAP IRON CUTTER 325 mg Given 10/26/2019 9:11 AM SCRAP IRON CUTTER 325 mg Given 10/25/2019 8:01 AM SCRAP IRON CUTTER 325 mg atorvastatin (LIPITOR) tablet 80 mg 80 mg, oral, Nightly, First dose on 10/22/19 at 2100 Given 10/26/2019 8:46 PM SCRAP IRON CUTTER 80 mg Given 10/25/2019 8:47 PM SCRAP IRON CUTTER 80 mg Given 10/24/2019 8:52 PM SCRAP IRON CUTTER 80 mg buPROPion XL (WELLBUTRIN XL) 24 hour tablet 150 mg 150 mg, oral, Daily, First dose on 10/22/19 at 0900, Do not crush, chew, cut, dissolve, open or otherwise manipulate tablet/capsule. Given 10/27/2019 9:00 AM SCRAP IRON CUTTER 150 mg Given 10/26/2019 9:11 AM SCRAP IRON CUTTER 150 mg Given 10/25/2019 8:01 AM SCRAP IRON CUTTER 150 mg calcium carbonate (TUMS) chewable tablet 1,000 mg 1,000 mg (400 mg of elemental calcium), oral, Every 6 hours PRN, indigestion, Starting on Thu10/24/19 at 1840 Given 10/25/2019 11:37 PM SCRAP IRON CUTTER 1,000 mg Given 10/25/2019 5:50 AM SCRAP IRON CUTTER 1,000 mg Given 10/24/2019 6:56 PM SCRAP IRON CUTTER 1,000 mg camphor-menthol (SARNA) 0.5-0.5 % lotion topical, Every 6 hours PRN, irritation, itching, dry skin, Starting on 10/22/19 at 1538, Apply to affected area: other Given 10/22/2019 8:17 PM SCRAP IRON CUTTER carvediloL (COREG) tablet 12.5 mg 12.5 mg, oral, 2 times daily, First dose (after last modification) on Thu10/24/19 at 2100 Given 10/27/2019 9:03 AM SCRAP IRON CUTTER 12.5 mg Given 10/26/2019 8:46 PM SCRAP IRON CUTTER 12.5 mg Given 10/26/2019 9:11 AM SCRAP IRON CUTTER 12.5 mg dronabinol (MARINOL) capsule 2.5 mg 2.5 mg, oral, 2 times daily before meals (lunch, dinner), First dose on Thu10/23/19 at 1730 Given 10/27/2019 9:00 AM SCRAP IRON CUTTER 2.5 mg Given 10/26/2019 6:06 PM SCRAP IRON CUTTER 2.5 mg Given 10/26/2019 12:00 PM SCRAP IRON CUTTER 2.5 mg fentaNYL (SUBLIMAZE) preservative free injection As needed, Starting on Thu10/18/19 at 1023, Intra-Procedure (CV) Given 10/18/2019 11:10 AM SCRAP IRON CUTTER 25 mcg Given 10/18/2019 10:23 AM SCRAP IRON CUTTER 25 mcg heparin 5,000 unit/mL injection 5,000 Units 5,000 Units, subcutaneous, Every 8 hours scheduled, First dose on Thu10/24/19 at 2230, Indications: Deep Vein Thrombosis PreventionIndications:Deep Vein Thrombosis Prevention Given 10/27/2019 5:40 AM SCRAP IRON CUTTER 5,000 Units Right Lower Abdomen Given 10/26/2019 8:46 PM SCRAP IRON CUTTER 5,000 Units L eft Lower Abdomen Given 10/26/2019 3:17 PM SCRAP IRON CUTTER 5,000 Units R ight Lower Abdomen hydroCHLOROthiazide (HYDRODIURIL) tablet 12.5 mg 12.5 mg, oral, Daily, First dose on Thu10/26/19 at 1015 Given 10/27/2019 9:03 AM SCRAP IRON CUTTER 12.5 mg Given 10/26/2019 12:00 PM SCRAP IRON CUTTER 12.5 mg ioversol (OPTIRAY 350) injection As needed, Starting on Thu10/18/19 at 1116, Intra-Procedure (CV) Given 10/18/2019 11:16 AM SCRAP IRON CUTTER 75 mL lidocaine (LIDODERM) 5 % patch 1 patch 1 patch, transdermal, Administer over 12 Hours, Daily, First dose on Thu10/25/19 at 1000, Do not cover the holes on the top side of the patch., Apply to affected area: chest Medication Applied 10/27/2019 9:01 AM SCRAP IRON CUTTER 1 patch Chest Medication Applied 10/26/2019 9:11 AM SCRAP IRON CUTTER 1 patch Chest Medication Applied 10/25/2019 10:17 AM SCRAP IRON CUTTER 1 patch Chest lidocaine (XYLOCAINE) 10 mg/mL (1 %) injection As needed, Starting on Thu10/18/19 at 1023, Intra-Procedure (CV), Indications: Administration of Local AnesthesiaIndications:Administratio n of Local Anesthesia Given 10/18/2019 10:23 AM SCRAP IRON CUTTER 10 mL Right Groin midazolam (VERSED) preservative free injection Administer over 2 Minutes, As needed, Starting on Thu10/18/19 at 1023, Intra-Procedure (CV) Given 10/18/2019 10:23 AM SCRAP IRON CUTTER 1 mg montelukast (SINGULAIR) tablet 10 mg 10 mg, oral, Nightly, First dose on Thu10/22/19 at 2100 Given 10/26/2019 8:46 PM SCRAP IRON CUTTER 10 mg Given 10/25/2019 8:47 PM SCRAP IRON CUTTER 10 mg Given 10/24/2019 8:53 PM SCRAP IRON CUTTER 10 mg ondansetron (ZOFRAN) injection 4 mg 4 mg, intravenous, Administer over 2 Minutes, Every 4 hours PRN, nausea, vomiting, Starting on Thu10/22/19 at 0030 Given 10/26/2019 9:11 AM SCRAP IRON CUTTER 4 mg Given 10/25/2019 11:37 PM SCRAP IRON CUTTER 4 mg Given 10/25/2019 7:13 PM SCRAP IRON CUTTER 4 mg oxyCODONE (ROXICODONE) tablet 5 mg 5 mg, oral, Every 3 hours PRN, 2nd line for pain, Starting on Thu10/25/19 at 0915, Indications: PainIndications:Pain Given 10/27/2019 12:37 PM [facility] 5 mg Given 10/27/2019 5:40 AM [facility] 5 mg Given 10/27/2019 2:20 AM [facility] 5 mg senna (SENOKOT) tablet 1 tablet 1 tablet, oral, Daily PRN, constipation, Starting on Thu10/26/19 at 0800 sodium chloride 0.9% flush 0.5-20 mL 0.5-20 mL, intra-catheter, Every 8 hours scheduled, First dose on Thu10/21/19 at 2200, Flush volume based on line type and size. Given 10/27/2019 5:40 AM [facility] 10 mL Given 10/26/2019 8:47 PM [facility] 10 mL Given 10/25/2019 4:22 AM [facility] 10 mL sodium chloride 0.9% flush 0.5-20 mL 0.5-20 mL, intra-catheter, As needed, line care, Starting on Thu10/21/19 at 1738, Flush volume based on line type and size. Flush before and after each use. Given 10/21/2019 9:26 PM [facility] 10 mL documented in this encounter Discontinued [...] Recently Administered Medications Times are shown in [facility]. Scheduled Medication Order 10/25/2019 10/26/2019 10/27/2019 acetaminophen (TYLENOL) tablet 1,000 mg (CANCELED)(Linked Group 1) 1,000 mg, oral, Every 6 hours scheduled, First dose on Thu10/21/19 at 1815, If able to swallow medications., Indications: Pain 0426 (Given - Provider: Aparna Gan, SENG) acetaminophen (TYLENOL) tablet 1,000 mg (COMPLETED) 1,000 mg, oral, Every 6 hours scheduled, First dose on Thu10/25/19 at 1200, For 2 days 1136 (Given - Provider: Lalita Lorenzana RN)1717 (Given - Provider: Meenu Vincent RN)2321 (Given - Provider: Erica Griffin, SENG) 0509 (Given - Provider: Erica Griffin, SENG)1200 (Given - Provider: Johnny Peterson, SENG)1806 (Given - Provider: Johnny Peterson, SENG)2322 (Given - Provider: Mimi Mchugh, SENG) 0540 (Given - Provider: Mimi Mchugh, RN) aspirin tablet 325 mg 325 mg, oral, Daily, First dose on 10/22/19 at 0900 0801 (Given - Provider: Lalita Lorenzana RN) 0911 (Given - Provider: Annemarie Nova, SENG) 0900 (Given - Provider: Johnny Peterson, SENG) atorvastatin (LIPITOR) tablet 80 mg 80 mg, oral, Nightly, First dose on 10/22/19 at 2100 2047 (Given - Provider: Erica Griffin, SENG) 204 (Given - Provider: Mimi Mchugh, SENG) buPROPion XL (WELLBUTRIN XL) 24 hour tablet 150 mg 150 mg, oral, Daily, First dose on 10/22/19 at 0900, Do not crush, chew, cut, dissolve, open or otherwise manipulate tablet/capsule. 0801 (Given - Provider: Lalita Lorenzana, SENG) 0911 (Given - Provider: Annemarie Nova, RN) 0900 (Given - Provider: Johnny Peterson, SENG) carvediloL (COREG) tablet 12.5 mg 12.5 mg, oral, 2 times daily, First dose (after last modification) on Thu10/24/19 at 2100 0801 (Given - Provider: Lalita Lorenzana, SENG)2047 (Given - Provider: Erica Griffin, SENG) 0911 (Given - Provider: Annemarie Nova, SENG)2045 (Given - Provider: Mimi Mchugh, SENG) 0903 (Given - Provider: Johnny Peterson, SENG) dronabinol (MARINOL) capsule 2.5 mg 2.5 mg, oral, 2 times daily before meals (lunch, dinner), First dose on Thu10/23/19 at 1730 1136 (Given - Provider: Lalita Lorenzana, SENG)1717 (Given - Provider: Meenu Vincent, SENG) 1200 (Given - Provider: Johnny Peterson, SENG)1806 (Given - Provider: Johnny Peterson, SENG) 0900 (Given - Provider: Johnny Peterson, SENG)1130 (Due) heparin 5,000 unit/mL injection 5,000 Units 5,000 Units, subcutaneous, Every 8 hours scheduled, First dose on Thu10/24/19 at 2230, Indications: Deep Vein Thrombosis Prevention 0528 (Given - Provider: Aparna Gan, SENG)1555 (Given - Provider: Jody De Luna, SENG)2047 (Given - Provider: Erica Griffin, SENG) 0509 (Given - Provider: Erica Griffin, SENG)1517 (Given - Provider: Johnny Peterson RN)2046 (Given - Provider: Mimi Mchugh, SENG) 0540 [...] 1017 (Medication Applied - Provider: Lalita Lorenzana, RN)2100 (Medication Removed - Provider: Erica Griffin RN) 0911 (Medication Applied - Provider: Annemarie Nova RN)204 (Medication Removed - Provider: Mimi Mchugh, SENG) 0901 (Medication Applied - Provider: Johnny Peterson, SENG)1304 (Due: Medication Removed - Provider: Automatic Discharge Provider - Comment: Time automatically adjusted from order being discontinued) montelukast (SINGULAIR) tablet 10 mg 10 mg, oral, Nightly, First dose on Thu10/22/19 at 2100 204 (Given - Provider: Erica Griffin RN) 2045 (Given - Provider: Mimi Mchugh RN) sodium chloride 0.9% flush 0.5-20 mL 0.5-20 mL, intra-catheter, Every 8 hours scheduled, First dose on Thu10/21/19 at 2200, Flush volume based on line type and size. 0422 (Given - Provider: Aparna Gan, SENG)1432 (Not Given - Provider: Jody De Luna RN - Reason: Order parameters not met)2307 (Not Given - Provider: Erica Griffin RN - Reason: Other) 0534 (Not Given - Provider: Erica Griffin RN - Reason: Other)1400 (Due)2046 (Given - Provider: Mimi Mchugh, SENG) 0540 (Given - Provider: Mimi Mchugh, SENG) PRN Medication Order 10/25/2019 10/26/2019 10/27/2019 calcium carbonate (TUMS) chewable tablet 1,000 mg 1,000 mg (400 mg of elemental calcium), oral, Every 6 hours PRN, indigestion, Starting on 10/24/19 at 1840 0550 (Given - Provider: Aparna Gan RN)2337 (Given - Provider: Erica Griffin, SENG) camphor-menthol (SARNA) 0.5-0.5 % lotion topical, Every [...] Erica Griffin RN)0911 (Given - Provider: Annemarie Nova RN)1926 (Given - Provider: Johnny Peterson RN)2322 (Return to Cabinet - Provider: Mimi Mchugh, SENG) 0220 (Given - Provider: Mimi Mchugh, SENG)0540 (Given - Provider: Mimi Mchugh, RN)1237 (Given - Provider: Johnny Peterson RN) [...] Count Last Ordered Date First Ordered Date hydroCHLOROthiazide (HYDRODI URIL) tablet 12.5 mg 1 10/26/2019 senna (SENOKOT) tablet 1 tablet 2 0 10/22/2019 acetaminophen (TYLENOL) tablet 1,000 mg 2 0 10/25/2019 10/21/2019 lidocaine (LIDODERM) 5 % patch 1 patch 1 oxyCODONE (ROXICODONE) tablet 5 mg 4 201910/21/2019 al & mag hydroxide pnpahbgldvq-kzdsjgkvl-cvmtgzsfru (GI COCKTAIL WITH ANTISPASMODIC) suspension 45 mL 1 10/24/2019 bisacodyL (DULCOLAX) suppository 10 mg 1 calcium carbonate (TUMS) chandu wable tablet 1,000 mg 1 10/24/2019 carvediloL (COREG) tablet 12.5 mg 3 020 10/19/2019 docusate sodium (COLACE) capsule 100 mg 1 0 10/24/2019 furosemide (LASIX) 10 mg/mL injection 40 mg 2 10/24/2019 10/22/2019 heparin 5,000 unit/mL inject ion 5,000 Units 3 10/24/2019 10/17/2019 potassium chloride 40 mEq/10 0 mL in sterile water (premix) 40 mEq 1 10/24/2019 carvediloL (COREG) tablet 25 mg 1 0 carvediloL (COREG) tablet 6.25 mg 3 020 10/22/2019 dronabinol (MARINOL) capsule 2.5 mg 1 10/23 furosemide (LASIX) 10 mg/mL injection 80 mg 2 10/23/2019 oxyCODONE (ROXICODONE) tablet 10 mg 3 10/2310/21/2019 polyethylene glycol (MIRALAX) packet 17 g 3 10/23/2019 10/19/2019 senna (SENOKOT) tablet 2 tablet 1 0 atorvastatin (LIPITOR) tablet 80 mg 2 10/2210/18/2019 buPROPion XL (WELLBUTRIN XL) 24 hour tablet 150 mg 2 10/22/2019 10/18/2019 camphor-menthol (SARNA) 0.5-0.5 % lotion 1 10/22/2019 hydroCHLOROthiazide (HYDRODI URIL) tablet 25 mg 2 10/22/2019 10/18/2019 HYDROmorphone (DILAUDID) injection 0.5 mg 1 10/22/2019 HYDROmorphone in 0.9% sodium chloride (DILAUDID) 20 mg/100 mL (0.2 mg/mL) infusion (premix) 1 10/22/2019 Lactated Ringer's (LR) infusion 5 0 10/17/2019 Lactated Ringer's (LR) infus ion - ADS Override Pull 1 10/22/2019 lidocaine in dextrose 5% 2 g /250 mL (8 mg/mL) infusion (premix) 1 10/22/2019 magnesium sulfate 2 g/50 mL in water (premix) 2 g 1 10/22/2019 montelukast (SINGULAIR) tablet 10 mg 2 10/0810/18/2019 naloxone (NARCAN) 0.4 mg/mL injection 0.04-0.4 mg 1 10/22/2019 ondansetron (ZOFRAN) injection 4 mg 1 10/22 sodium chloride 0.9% infusion 3 10/22/2019 10/18/2019 vasopressin in 0.9% sodium c hloride (PITRESSIN) 20 units/100 mL infusion (premix) - ADS Override Pull 1 10/22/2019 acetaminophen (TYLENOL) 32 m g/mL oral solution 1,000 mg 1 10/21/2019 acetaminophen (TYLENOL) suppository 650 mg 1 10/21/2019 acetaminophen (TYLENOL) tablet 650 mg 2 10/18/2019 aspirin tablet 325 mg 2 10/21/20192019 ceFAZolin (ANCEF) 2,000 mg/2 0 mL in sterile water (premix) 2,000 mg 1 10/21/2019 dexMEDEtomidine in 0.9% sodi um chloride (PRECEDEX) 400 mcg/100 mL (4 mcg/mL) infusion (premix) 2 10/21/2019 dextrose (D10W) 10% bolus 250 mL 2 10/21/19 20 dextrose (GLUTOSE) 40 % gel 15 g 2 10/21/19 20 glucagon injection 1 mg 2 10/21/2019 heparin in 0.9% sodium chlor izabella 2,000 unit/1,000 mL (2 unit/mL) infusion (premix) 1 10/21/2019 hydrALAZINE (APRESOLINE) injection 10 mg 3 10/21/2019 10/18/2019 HYDROmorphone (DILAUDID) injection 0.2 mg 3 10/21/2019 insulin lispro (HumaLOG) inj ection 1-3 Units 2 10/21/2019 lidocaine (LIDODERM) 5 % patch 2 patch 2 niCARdipine in 0.9% sodium c hloride (CARDENE) 25 mg/50 mL (0.5 mg/mL) infusion (premix) 1 10/21/2019 niCARdipine in sodium chlori de 0.9% (CARDENE) 25 mg/250 mL (0.1 mg/mL) infusion (premix) solution 1 10/21/2019 norepinephrine in dextrose 5 % (LEVOPHED) 8,000 mcg/250 mL (32 mcg/mL) infusion (premix) 3 10/21/2019 ondansetron ODT (ZOFRAN-ODT) disintegrating tablet 4 mg 1 10/21/2019 potassium chloride 20 mEq/50 mL in sterile water (premix) 20 mEq 2 10/21/2019 sodium chloride 0.9 % irrigation 1 10/21/19 20 sodium chloride 0.9% flush 0.5-20 mL 7 10/0810/17/2019 sodium chloride 0.9% IVPB 0-250 mL 1 2019 sodium chloride 0.9% solution 1,000 mL 4 sterile water irrigation 1 10/21/2019 vancomycin (VANCOCIN) solution 1 10/21/2019 vasopressin 20 Units in sodi um chloride 0.9% 100 mL (0.2 Units/mL) infusion 1 10/21/2019 atenoloL (TENORMIN) tablet 50 mg 10/18/19 20 cetirizine (ZyrTEC) tablet 10 mg 1 10/18/19 20 doxycycline monohydrate (ADO XA) tablet 50 mg 1 10/18/2019 gadoterate meglumine (DOTARE M) 0.5 mmol/mL injection 15 mL 10/18/2019 labetalol (NORMODYNE,TRANDAT E) injection 10 mg 1 10/18/2019 potassium chloride 20 mEq/26 0 mL in sodium chloride 0.9% (premix) 20 mEq 1 10/18/2019 senna-docusate (PERICOLACE) 8.6-50 mg per tablet 2 tablet 1 10/18/2019 sodium chloride 0.9% bolus 250 mL 1 020 Lab Orders Without Results Count Last Ordered D ate First Ordered Date POCT GLUCOSE DEVICE 4 10/25/2019 10/24/19 20 Imaging Orders Without Results Count Last Order [...] IP CONSULT TO NUTRITION SERVICES 1 10/17/19 Transfer Count Last Ordered Date First Orde red Date TRANSFER PATIENT 2 10/25/2019 10/18/2019 CORE MEASURES Count Last Ordered Date First Ord ered Date REASON FOR NO VTE PROPHYLAXI S - HOSPITAL ADMISSION - MEDICATIONS 1 10/21/2019 REASON FOR NO VTE PROPHYLAXIS AT ADMISSION 1 10/18/2019 Case Request Count Last Ordered Date First Orde red Date CASE REQUEST MARINE SPECIALIST 1 10/18/2019 documented in this encounter Care Teams [employer] Manager Relationship Specialty Start Date End Date Abbe Nails MD [address] [place] [address] PCP - General 10/17/19 11/01/19 Nanci Giron MD Surgeon Vascular Surgery 10/12/19 documented as of this encounter
--- OUTSIDE RECORDS SUMMARY | 2024-09-08 08:24 | XMS_ITS | Encounter Summary ---
Author Organization [facility] Healthcare Address [address] [place] [address] Care Team Providers Care Emt Intermediate Name Role Phone Nanci Giron MD Unavailable Abbe Nails MD Primary Care Provider [phone] Encounter Details Date Type Department Care Team (Late st Contact Info) Description 10/21/2019 11:00 AM OTR DRIVER - 10/21/2019 6:25 PM OTR DRIVER Surgery [facility] Operating Room [address] [place] [address] Nanci Giron MD [facility] [id number] [place] [address] BYPASS AORTIC INNOMINATE Surgery Details Date/Time Status Location OR Service Patient Class Case Cl ass Case Type Trauma Case? 10/21/2019 11:00 AM Posted [facility] OR POD 3 311 Vascular Inpatient Elective Panel 1 Procedure LRB Anes Op Region Wound Class Comments BYPASS AORTIC INNOMINATE N/A General Chest Class I - Clean ASCENDING AORTA TO RIGHT SUBCLAVIAN, RIGHT COMMON CAROTID ARTERY AND LEFT COMMON CAROTID ARTERY Bilateral General Neck Class I - Clean Surgeon Surgeon Role Service Panel Nanci Giron MD Primary Vascular 1 Juwan Jacobo MD Fellow Cardiothoracic 1 Taryn Whitley MD Resident - Assisting General Mario vibha 1 Zeyad Leger MD Fellow Vascular 1 Azar Ramírez MD Co-Surgeon Cardiothoracic 1 documented in this encounter Social History Tobacco Use Types Packs/Day Years Used Date Smoking Tobacco: Former Cigarettes Smokeless Tobacco: Never Alcohol Use Standard Drinks/Week Comments Yes 0 (1 standard drink = 0.6 oz pur e alcohol) Comments Unknown Sex and Gender Information Value Date Recorded Sex Assigned at Not on file Legal Sex Female 3:40 AM OTR DRIVER Gender Identity Not on file Sexual Orientation Not on file documented as of this encounter Last Filed Vital Signs Vital Sign Reading Time Taken Comments Blood Pressure 206/63 10/21/2019 9:40 AM OTR DRIVER Pulse 65 10/21/2019 6:12 PM OTR DRIVER Temperature 36.3 ??C (97.3 ??F) 10/21/2019 9:32 AM CS T Respiratory Rate 22 10/21/2019 6:00 PM OTR DRIVER Oxygen Saturation 100% 10/21/2019 6:12 PM OTR DRIVER Inhaled Oxygen Concentration - - Weight 88.5 kg (195 lb) 10/21/2019 9:32 AM OTR DRIVER Height 170.2 cm (5' 7 ) 10/21/2019 9:32 AM OTR DRIVER Body Mass Index 30.59 10/22/2019 5:00 AM OTR DRIVER documented in this encounter Discharge Summaries * Annemarie Lynne NP - 10/18/2019 2:26 PM CST Inpatient Discharge Summary BRIEF OVERVIEW Admitting Provider: Nanci Giron MD Discharge Provider: Nanci Giron MD Primary Care Physician at Discharge: Abbe Nails MD [phone] Admission Date: 10/17/2019 Discharge Date: 10/27/2019 Admission Location: [facility] Primary Discharge Diagnosis: Syncopal Episodes Secondary Discharge [...] patient was followed by Dr Giron at [facility] so requested transfer of the patient for further management given her recurrent symptoms and known occlusion. The patient was accepted for transfer and arrived to the [address] [address] in stable condition. ?? Of note, [...] removed by home health in 2 weeks. [facility] [phone] Please call for date and time of [...] Medicine Relationship: PCP - General [address] [facility] [address] Next Steps: Follow up [facility] Home Care Services Specialty: Home Health and Hospice [address] [place] [id number] Next Steps: Follow up Questions: Service Line: [...] Surgery, General Surgery Relationship: Surgeon [address] [place] [address] Next Steps: Follow up Instructions: You will need a 4 week follow up. If you have questions or concerns or haven't received your appointment in 1 week, please call [phone]. Questions: Instructions for follow-up (appointment date and time): You will need a 4 week follow up. If you have questions or concerns or haven't received your appointment in 1 week, please call [phone]. To provider: NANCI GIRON Process Instructions: The [...] Surgery Relationship: Surgeon [address] [place] [address] Next Steps: Follow up Instructions: Dr. Ramírez's office will schedule you a follow up. IF you have not heard from them, their number is [phone]. Questions: To provider: AZAR RAMÍREZ Instructions for follow-up (appointment date and time): Dr. Ramírez's office will schedule you a follow up. IF you have not heard from them, their number is [phone]. Process Instructions: The follow up with provider [...] Nanci Giron MD at 10/27/2019 11:10 AM OTR DRIVER DRIVER DRIVER Associated attestation - Nanci Giron MD - 10/27/2019 11:10 AM OTR DRIVER I have seen and examined the patient [...] Nilda Sanchez RN - 10/26/2019 2:30 PM OTR DRIVER This is the earliest appointment with your PCP, Please bring discharge paperwork with list of medicines, insurance card and photo ID to appointment. Please arrive at least 15 minutes early prior to appointment. If you are unable to keep this appointment, it is very important you call to reschedule. DRIVER * Discharge Instr - Other Orders* Nilda Sanchez RN - 10/26/2019 3:57 PM OTR DRIVER [facility] [phone] Please call for date and time of visit if you do not hear from them within 48 hours of d/c. DRIVER DRIVER documented in this encounter Medications at Time [...] Agency Information Home Care Agency Type #1: Correction Home Care Agency Name [facility] Home Care Agency Contact Spoken to [facility] Order Faxed to [phone] Discharge Additional Assistance Does the patient need [...] appointment made. Nurse to instruct ond/c orders. DRIVER * Araseli Dow RD - 10/26/2019 10:48 [...] of Weight Used for Estimated Protein : [place] Protein Needs Based on g/k.1 Total Protein [...] Chol Diet effective now Question Answer Comment ([facility]) Diet type Restricted Fat / Sodium [...] Evaluation: Labs, Weight changes, PO intake Araseli Dow MS RDN, LD - [phone] DRIVER * Annemarie Lynne NP - 10/26/2019 8:41 AM CST Vascular Surgery Daily Progress Patient Name/MRN: Suma Saenz [id number] Treatment Team: Vascular Surgery- Pager: [phone] Attending: Nanci Giron MD Today's Date: 10/26/2019 Room/Bed: [id number] Admit Date: 10/17/2019 Code Status: Full Code [...] tablet 1,000 mg 1,000 mg oral Q6H [facility] Jayce Alvarez MD 1,000 mg at 10/26/19 [...] PRN Jayce Alvarez MD 1,000 mg at 10/25/192336 ??? camphor-menthol (SARNA) 0.5-0.5 % lotion topical [...] injection 5,000 Units 5,000 Units subcutaneous Q8H [facility] Jayce Alvarez MD 5,000 Units at 10/26/19 [...] flush 0.5-20 mL 0.5-20 mL intra-catheter Q8H [facility] Jayce Alvarez MD 10 mL at 10/25/19 [...] Nanci Giron MD at 10/26/2019 9:44 AM OTR DRIVER DRIVER DRIVER Associated attestation - Nanci Giron MD - 10/26/2019 9:44 AM OTR DRIVER I have seen and examined the patient on 10/26/19. I agree with the findings and plan of care with the following modifications:she looks great. She will continue daily aspirin work with physical therapy. This will give us a sense of what assistance she will require at discharge, and whether she can be discharged home or to a bridge facility with residential care... * Milly Sykes NP - 10/25/2019 2:19 PM CST Vascular Surgery Accept note Patient Name/MRN: Suma Saenz [id number] Treatment Team: Vascular Surgery- Pager: [phone] Attending: Nanci Giron MD Today's Date: 10/25/2019 Room/Bed: [id number] Admit Date: 10/17/2019 Code Status: Full Code [...] tablet 1,000 mg 1,000 mg oral Q6H [facility] Montserrat Quinteros NP 1,000 mg at 10/25/19 [...] injection 5,000 Units 5,000 Units subcutaneous Q8H [facility] Mario House MD 5,000 Units at 10/25/19 [...] flush 0.5-20 mL 0.5-20 mL intra-catheter Q8H [facility] Mario House MD 10 mL at 10/25/19421 [...] temporary on nicardipine gtt -10/25: Transferred to [facility] -PT/OT to evaluate, recommendations appreciated # Right groin ecchymosis: - 10/19 Right groin ultrasound negative for PSA and hematoma. -10/25 Fading ecchymosis ?? #Benign hypertension - Allow permissive hypertension, ideally 160 to 180. - BP control improved. - Continue Coreg, increase as needed. - PRN labetalol for SBP over 200 Cosigned by Nanci Giron MD at 10/26/2019 8:18 AM OTR DRIVER DRIVER DRIVER Associated attestation - Nanci Giron MD - 10/26/2019 8:18 AM OTR DRIVER I have seen and examined the patient on 10/25/2019. I agree with the findings and plan of care as documented in the resident's/fellow's note. * Mario Leiva MD - 10/25/2019 6:37 AM CST Vascular Surgery Daily Progress Patient Name/MRN: Suma Saenz [id number] Treatment Team: Vascular Surgery- Phone Attending: Nanci Giron MD Today's Date: 10/25/2019 Room/Bed: [id number] Admit Date: 10/17/2019 Code Status: Full Code [...] tablet 1,000 mg 1,000 mg oral Q6H [facility] Mario House MD 1,000 mg at 10/25/19 0426 Or ??? acetaminophen (TYLENOL) 32 mg/mL oral solution 1,000 mg 1,000 mg feeding tube Q6H [facility] Mario House MD Or ??? acetaminophen (TYLENOL) suppository 650 mg 650 mg rectal Q6H [facility] Mario House MD ??? aspirin tablet 325 [...] injection 5,000 Units 5,000 Units subcutaneous Q8H [facility] Mario House MD 5,000 Units at 10/25/19 0528 ??? insulin lispro (HumaLOG) injection 1-3 Units 1-3 Units subcutaneous Q4H [facility] Mario House MD 1 Units at 10/23/19 [...] flush 0.5-20 mL 0.5-20 mL intra-catheter Q8H [facility] Mario House MD 10 mL at 10/25/19421 ??? sodium chloride 0.9% flush 0.5-20 mL 0.5-20 mL intra-catheter PRN Mario House MD 10mL at 10/21/192125 ??? sodium chloride 0.9% infusion 6 mL/hr intravenous Continuous Gasper Salgado MD 3 mL/hr at10/24/191899 3 mL/hr at 10/24/191899 Objective Vitals: 24hr Min/Max: Temp Min: 36.3 [...] Nanci Giron MD at 10/25/2019 9:54 AM OTR DRIVER DRIVER DRIVER Associated attestation - Nanci Giron MD - 10/25/2019 9:54 AM OTR DRIVER I have seen and examined the patient [...] Michael Marcelo MD at 10/25/2019 11:06 AM OTR DRIVER DRIVER DRIVER Associated attestation - Michael Marcelo MD - 10/25/2019 11:06 AM OTR DRIVER Attending Documentation: I have seen and examined this critically ill patient on the day of service. I have reviewed and confirmed the history, physical exam, laboratory and radiologic data with the house staff as documentedin the ICU Resident note. I have reviewed and discussed my treatment plan with the ICU team and other medical/eyewear consultant staff, making frequent assessments and decisions [...] Patterson MD Resident Physician Department of Anesthesiology [facility] Cosigned by Hudson Frye MD at 10/24/2019 9:56 PM OTR DRIVER DRIVER DRIVER Associated attestation - Hudson Frye MD - 10/24/2019 9:56 PM OTR DRIVER I have seen and examined the patient on 10/24/19. I agree with the findings and plan of care as documented in the resident's/fellow's note and as discussed with the resident/fellow.. * Mario Leiva MD - 10/24/2019 8:30 AM CST Vascular Surgery Daily Progress Patient Name/MRN: Suma Saenz [id number] Treatment Team: Vascular Surgery- Phone Attending: Nanci Giron MD Today's Date: 10/24/2019 Room/Bed: [id number] Admit Date: 10/17/2019 Code Status: Full Code [...] tablet 1,000 mg 1,000 mg oral Q6H [facility] Mario House MD 1,000 mg at 10/24/19 0606 Or ??? acetaminophen (TYLENOL) 32 mg/mL oral solution 1,000 mg 1,000 mg feeding tube Q6H [facility] Mario House MD Or ??? acetaminophen (TYLENOL) suppository 650 mg 650 mg rectal Q6H [facility] Mario House MD ??? aspirin tablet 325 mg 325 mg oral Daily Mario House MD 325 mg at 10/23/19 0855 ??? atorvastatin (LIPITOR) tablet 80 mg 80 mg oral Nightly Mario House MD 80 mg at 10/23/19 2120 ??? buPROPion XL (WELLBUTRIN XL) 24 hour tablet 150 mg 150 mg oral Daily Mario House MD 150 mg at 10/23/19 0855 ??? camphor-menthol (SARNA) [...] injection 5,000 Units 5,000 Units subcutaneous Q8H [facility] Mario House MD 5,000 Units at 10/24/19 0606 ??? insulin lispro (HumaLOG) injection 1-3 Units 1-3 Units subcutaneous Q4H [facility] Mario House MD 1 Units at 10/23/19 [...] Nanci Giron MD at 10/24/2019 4:41 PM OTR DRIVER DRIVER DRIVER DRIVER Associated attestation - Nanci Giron MD - 10/24/2019 4:41 PM OTR DRIVER I have seen and examined the patient [...] Michael Marcelo MD at 10/24/2019 12:48 PM OTR DRIVER DRIVER DRIVER Associated attestation - Michael Marcelo MD - 10/24/2019 12:48 PM OTR DRIVER Attending Documentation: I have seen and examined this critically ill patient on the day of service. I have reviewed and confirmed the history, physical exam, laboratory and radiologic data with the house staff as documentedin the ICU Resident note. I have reviewed and discussed my treatment plan with the ICU team and other medical/eyewear consultant staff, making frequent assessments and decisions [...] Surgery Daily Progress Patient Name/MRN: Suma Saenz [id number] Treatment Team: Vascular Surgery- Attending: Nanci Giron MD Today's Date: 10/23/2019 Room/Bed: [id number] Admit Date: 10/17/2019 Code Status: Full Code [...] tablet 1,000 mg 1,000 mg oral Q6H [facility] Mario House MD 1,000 mg at 10/23/19 0621 Or ??? acetaminophen (TYLENOL) 32 mg/mL oral solution 1,000 mg 1,000 mg feeding tube Q6H [facility] Mario Hosue MD Or ??? acetaminophen (TYLENOL) suppository 650 mg 650 mg rectal Q6H [facility] Mario House MD ??? aspirin tablet 325 [...] injection 5,000 Units 5,000 Units subcutaneous Q8H [facility] Mario House MD 5,000 Units at 10/23/19 0621 ??? insulin lispro (HumaLOG) injection 1-3 Units 1-3 Units subcutaneous Q4H [facility] Mario House MD 1 Units at 10/22/19 1159 ??? Lactated Ringer's (LR) infusion 30 mL/hr intravenous Continuous Gasper Salgado MD 20 mL/hr at 10/23/19 0700 20 mL/hr at 10/23/19 0700 ??? lidocaine in dextrose 5% 2 g/250 mL (8 mg/mL) infusion (premix) 0.75 mg/kg/hr ([place]) intravenous Continuous Mario House MD 5.78 mL/hr [...] REID Mario House MD 10 mL at 10/23/19621 ??? sodium chloride 0.9% flush 0.5-20 mL [...] Zeyad Leger MD Fellow, Vascular/Endovascular Surgery Pager: [phone] Cosigned by Nanci Giron MD at 10/23/2019 1:54 PM OTR DRIVER DRIVER DRIVER * Micah Glover MD - 10/23/2019 7:35 [...] 3.8. Received 3.76 mg of hydromoprhone via IN TUBE CONVERSION TECHNICIAN in 24h. Reports moderate pain control on current regimen. Denied any parestheaias, tinnitus, perioral numbness, metallic taste. Current Analgesic Regimen Acetaminophen 1000 mg q6h Lidocaine infusion @ 1 mg/kg/hr Hydromorphone IN TUBE CONVERSION TECHNICIAN (0.2 mg, 10 min LO) Scheduled Medications: [...] 20 mL/hr (10/23/19 0700) lidocaine, 0.75 mg/kg/hr ([place]), Last Rate: 0.75 mg/kg/hr (10/23/19 0310) niCARdipine, [...] call the pain pager. -Recommend transition d/c IN TUBE CONVERSION TECHNICIAN and start oxycodone 5-10 mg q3h prn. This plan was discussed with the attending pain physician. Thank you for allowing us to participatein the care of this patient. We will continue to follow. -- Micah Glover MD Resident Physician Department of Anesthesiology [facility] Cosigned by Mati Leon MD at 10/23/2019 10:08 AM OTR DRIVER DRIVER DRIVER Associated attestation - Mati Leon MD - 10/23/2019 10:08 AM OTR DRIVER I have seen and examined the patient [...] No more hallucinations, pain well controlled on IN TUBE CONVERSION TECHNICIAN + lido drip Objective Medications: Scheduled Meds:acetaminophen, [...] Rate: 20 mL/hr (10/22/192099) lidocaine, 0.75 mg/kg/hr ([place]), Last Rate: 0.75 mg/kg/hr (10/22/192099) niCARdipine, 0.5-2.5 [...] pain Assessment & Plan - APAP sched, IN TUBE CONVERSION TECHNICIAN 0.2 q10m, lido gtt Vertebrobasilar artery insufficiency [...] Michael Marcelo MD at 10/23/2019 11:11 AM OTR DRIVER DRIVER DRIVER Associated attestation - Michael Marcelo MD - 10/23/2019 11:11 AM OTR DRIVER Attending Documentation: I have seen and examined this critically ill patient on the day of service. I have reviewed and confirmed the history, physical exam, laboratory and radiologic data with the house staff as documentedin the ICU Resident note. I have reviewed and discussed my treatment plan with the ICU team and other medical/eyewear consultant staff, making frequent assessments and decisions [...] Surgery Daily Progress Patient Name/MRN: Suma Saenz [id number] Treatment Team: Vascular Surgery- Attending: Nanci Giron MD Today's Date: 10/22/2019 Room/Bed: [id number] Admit Date: 10/17/2019 Code Status: Full Code [...] tablet 1,000 mg 1,000 mg oral Q6H [facility] Mario House MD 1,000 mg at 10/22/19 0543 Or ??? acetaminophen (TYLENOL) 32 mg/mL oral solution 1,000 mg 1,000 mg feeding tube Q6H [facility] Mario House MD Or ??? acetaminophen (TYLENOL) suppository 650 mg 650 mg rectal Q6H [facility] Mario House MD ??? aspirin tablet 325 [...] injection 5,000 Units 5,000 Units subcutaneous Q8H [facility] Mario House MD ??? HYDROmorphone in 0.9% sodium chloride (DILAUDID) 20 mg/100 mL (0.2 mg/mL) infusion (premix) intravenous Continuous Mario House MD ??? insulin lispro (HumaLOG) injection 1-3 Units 1-3 Units subcutaneous Q4H [facility] Mario House MD ??? Lactated Ringer's (LR) infusion 30 mL/hr intravenous Continuous Gasper Salgado MD 30 mL/hr at 10/22/19 0700 30 mL/hr at 10/22/19 0700 ??? lidocaine in dextrose 5% 2 g/250 mL (8 mg/mL) infusion (premix) 1.5 mg/kg/hr ([place]) intravenous Continuous Gasper Salgado MD 11.55 mL/hr [...] PM Result Value Ref Range Product code [id number] Unit Number [id number] Product Blood Type OPOS Dispense Status PRESUMED [...] Zeyad Leger MD Fellow, Vascular/Endovascular Surgery Pager: [phone] Cosigned by Nanci Giron MD at 10/23/2019 1:54 PM OTR DRIVER DRIVER DRIVER * Gasper Salgado MD - 10/22/2019 12:52 [...] intra-catheter, Q8H [facility] Continuous Infusions:lidocaine, 1.5 mg/kg/hr ([place]) niCARdipine, 0.5-2.5 mcg/kg/min, Last Rate: 2.5 mcg/kg/min (10/22/19 0000) norepinephrine, 0.01-2 mcg/kg/min, Last Rate: Stopped (10/21/19 1930) sodium chloride 0.9%, 1,000 mL Vitals: Temp: [...] Laboratory data: Recent Labs Lab Units 10/21/19 22210/21/19172810/21/19 1551 10/20/19 2302 WBC K/cumm 10.4* 13.8* [...] 8.3* 9.6 9.0 Recent Labs Lab Units 10/21/19172810/18/19 0102 PROTIME (PT) sec 15.6* 11.2 INR [...] to bilateral carotid bypass - Successfully extubated 14 P.M., continue q1h neurovasc checks - MAP>65 [...] 2.5 on 15 A.M. for SBP <120 Cosigned by Michael Marcelo MD at 10/22/2019 12:06 PM OTR DRIVER DRIVER DRIVER Associated attestation - Michael Marcelo MD - 10/22/2019 12:06 PM OTR DRIVER Attending Documentation: I have seen and examined this critically ill patient on the day of service. I have reviewed and confirmed the history, physical exam, laboratory and radiologic data with the house staff as documentedin the ICU Resident note. 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 10/18 LHC with clean coronaries. 10/19: Rt groin [...] 150 mg oral Daily Zack Overton MD [id number] mg at 02/12/20 0927 ??? carvediloL (COREG) tablet 12.5 mg 12.5 [...] 5,000 Units 5,000 Units subcutaneous Q8H [facility] Annemarie Lynne, NAKIA 5,000 Units at 10/20/19 [...] Patient will need innomminate artery bypass - LHC with clean coronaries. - continue home ASA, [...] Nanci Giron MD at 10/20/2019 10:03 AM OTR DRIVER DRIVER DRIVER Associated attestation - Nanci Giron MD - 10/20/2019 10:03 AM OTR DRIVER I have seen and examined the patient on 10/20/19. I agree with the findings and plan of care with the following modifications:She remains stable. OR scheduled for tomorrow with Dr. Ramírez... 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 10/18 [facility] with clean coronaries. Events Over Last 24 [...] Overton MD PhD 80 mg at 10/18/19 2215 ??? buPROPion XL (WELLBUTRIN XL) 24 hour tablet 150 mg 150 mg oral Daily Zack Overton MD [id number] mg at 10/19/19926 ??? carvediloL (COREG) tablet [...] injection 5,000 Units 5,000 Units subcutaneous Q8H [facility] Zack Overton MD PhD 5,000 Units at 10/19/19926 ??? hydroCHLOROthiazide (HYDRODIURIL) tablet 25 mg 25 mg oral Daily Zack Overton MD PhD 25 mg at 10/19/19926 ??? labetalol (NORMODYNE,TRANDATE) injection 10 mg 10 mg intravenous Q4H PRN Annemarie Lynne, MAT[employer]LING [employer]AREHOUSE SUPERVISOR ??? Lactated Ringer's (LR) infusion 50 mL/hr [...] flush 0.5-20 mL 0.5-20 mL intra-catheter Q8H [facility] Zack Overton MD PhD 10 mL at 10/19/19512 ??? 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 - continue home ASA, [...] Nanci Giron MD at 10/20/2019 10:02 AM OTR DRIVER DRIVER DRIVER Associated attestation - Nnaci Giron MD - 10/20/2019 10:02 AM OTR DRIVER I have seen and examined the patient [...] Surgery Daily Progress Patient Name/MRN: Suma Saenz [id number] Treatment Team: Vascular Surgery- Pager: [phone] Attending: Nanci Giron MD Today's Date: 10/18/2019 Room/Bed: [id number] Admit Date: 10/17/2019 Code Status: Full Code [...] 150 mg oral Daily Zack Overton MD [id number] mg at 10/18/19828 ??? cetirizine (ZyrTEC) tablet [...] EKG/Min 61 BPM Atrial Rate 61 BPM [place]-Interval (MSEC) 178 ms QRS-Interval (MSEC) 108 ms QT-Interval (MSEC) 456 ms QTc 459 ms P [place] 51 degrees R [place] 12 degrees T [place] 16 degrees Diagnosis Normal sinus rhythm Minimal [...] Ansari MD PhD at 10/19/2019 12:30 PM OTR DRIVER DRIVER DRIVER * Bindu Ayala RN - 10/18/2019 1:57 PM CST 10/18/19 7661 Information Information Obtained From Patient Referral Data Referral Source Self referral Referral Reason Discharge Planning Prior to Admission Primary Caregiver Self Support System Spouse/Significant Other Support system contact info (name, phone, availablity) Juice Saenz () [phone] Home Care Services No Durable Medical Equipment [...] Information obtained from: patient Insurance verified as: [facility] PCP verified as: Dr. Alexander in [facility] Transportation: per family Admission Source: non-healthcare facility Additional Information/Options Discussed: Verified demographic information from the face sheet withthe patient. Explained role and purpose of porter sample case. Denies the use of home health in the past - a list will be provided if recommended. assistant real estate manager to continue to follow for planning [...] for d/c planning and referrals as needed. DRIVER documented in this encounter H&P Notes * Mario House MD - 10/21/2019 6:[address] ICU History and Physical Shifts: MD [...] Marcelo MD at 12/26/2019 3:16 PM CDT DRIVER DRIVER * Gisella Freedman MD - 10/17/2019 10:35 PM CST Vascular Surgery History and Physical Patient Name/MRN: Suma Saenz [id number] Treatment Team: Vascular Surgery- Pager: [phone] Attending: Nanci Giron MD Today's Date: 10/18/2019 Admitting Service: Vascular Admitting location: [id number] Admit Date: 10/17/2019 Code Status: Full Code [...] patient was followed by Dr Giron at [facility] so requested transfer of the patient for further management given her recurrent symptoms and known occlusion. The patient was accepted for transfer and arrived to the [address] OU in stable condition. Of note, the [...] 50 mg 50 mg oral BID Gisella Freemdan MD ??? heparin 5,000 unit/mL injection 5,000 Units 5,000 Units subcutaneous Q8H [facility] Gisella Freedman MD 5,000 Units at 10/18/19 [...] flush 0.5-20 mL 0.5-20 mL intra-catheter Q8H [facility] Gisella Freedman MD 10 mL at 10/18/19 [...] Abbe Nails MD Primary Care Physician number: [phone] Review of Systems: Review of Systems Constitutional: [...] Nanci Giron MD at 10/19/2019 8:42 AM OTR DRIVER DRIVER DRIVER Associated attestation - Nanci Giron MD - 10/19/2019 8:42 AM OTR DRIVER I have seen and examined the patient [...] plan with the patient's team and other medical/eyewear consultant staff. This time was in addition [...] spent time documenting in the medical record Mihcael Cronin MD - 10/24/2019 12:48 PM CSTAssociated Order(s): [...] plan with the ICU team and other medical/eyewear consultant staff, making frequent assessments and decisions [...] time documenting in the medical record Michael Cronin MD - 10/23/2019 11:12 AM CSTAssociated Order(s): [...] plan with the ICU team and other medical/eyewear consultant staff, making frequent assessments and decisions [...] spent time documenting in the medical record DRIVER * Michael Marcelo MD - 10/22/2019 12:06 [...] plan with the ICU team and other medical/eyewear consultant staff, making frequent assessments and decisions [...] spent time documenting in the medical record DRIVER * Michela Gore RN - 10/18/2019 2:42 AM CST Vascular Access Nurse: Procedure Note Summary of treatment provided to patient today is as follows : . Bedside Procedure Time out/Checklist (last 4 hours) Pre-Op Checklist Row Name 10/17/19 2300 Patient Belongings at Bedside Belongings at Bedside Vision;Clothing;Electronic devices - Vision - Corrective Lenses Glasses - Clothing Pants;Footwear;Underpants - Patient Electronics Cell phone -CK Patient Belongings [...] RN Plan: Follow up: Michela Gore RN DRIVER documented in this encounter Consult Notes * [...] Rate: 30 mL/hr (10/22/19699) lidocaine, 1.5 mg/kg/hr ([place]), Last Rate: 1.5 mg/kg/hr (10/22/19699) niCARdipine, 0.5-2.5 [...] Innominate artery stenosis Relevant Orders Case Request Content Creation Manager (Completed) Cardiac Catheterization (Completed) Vertebral artery compression syndrome - Primary Overview Vertebral artery insufficiency Relevant Orders Case Request Content Creation Manager (Completed) Cardiac Catheterization (Completed) Vascular Surgery Procedure Vertebrobasilar artery insufficiency Overview Added automatically from request for surgery [id number] Current Assessment & Plan - S/p aorto [...] call the pain pager. -Agree with hydromorphone IN TUBE CONVERSION TECHNICIAN. Please keep IN TUBE CONVERSION TECHNICIAN for 24h and we will calculate MME's. -Recommend d/c oxycodone prn while on hydromorphone IN TUBE CONVERSION TECHNICIAN. Will transition to oxycodone likely in 24h. We will continue to follow. Thank you for allowing us to participate in the care of this patient -- Micah Glover M.D. Resident Physician Department of Anesthesiology 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 I reviewed her cardiac catheterization [...] regard to revascularization. Job ID/VF Job ID: [id number] DRIVER documented in this encounter Nursing Notes * Erlin Orozco RN - 10/21/2019 4:57 PM CST Patient arrival to [facility] via bed postop Aorto-Innominate bypass. Arrives intubated [...] exceptions noted per ICUcomplex assessment flow sheet. DRIVER * Sarah Velasco RN - 10/18/2019 2:50 PM CST Patient blood pressures elevated, most recent at 1445 is 189/53. Team notified. Stated they are ok with pressures in the 180s and to notify them if pressures are over 200. Will continue to monitor DRIVER documented in this encounter Miscellaneous Notes * [...] improve to fullest extent possible Outcome: Progressing DRIVER * Plan of Care - Mimi Mchugh [...] both pts amicable, frequent rounding on both. DRIVER * Plan of Care - Margaret García PTA - 10/26/2019 9:55 AM CST Problem: Mobility Goal: STG - Patient will ambulate Description: 200ft with LRAD and SBA, continuously Outcome: Progressing Problem: Transfers Goal: STG - Patient will transfer sit to and from stand Description: SBA with LRAD Outcome: Progressing DRIVER * Plan of Care - Nilda Sanchez [...] follow for planning and referrals as needed. DRIVER * Plan of Care - Johnny Peterson [...] improve to fullest extent possible Outcome: Progressing DRIVER * Plan of Care - Erica Griffin [...] weight bearing on arms/chest, stable vitals, tele DRIVER * Plan of Mona - Erlin Orozco [...] improve to fullest extent possible Outcome: Progressing DRIVER * Plan of Care - Aparna Gan RN - 10/25/2019 2:26 AM CST Goals: Clinical Goals for the Shift: Pain control, pulmonary hygiene, VSS Summary: Patient has had adequate pain control with oxycodone, able to take deep breathe and cough,VSS throughout entire shift DRIVER * Assessment & Plan Note - Mario House MD - 10/24/2019 11:46 PM OTR DRIVER Associated Problem(s): Chronic back pain complicated by acute surgical pain - APAP sched, transitioned to PO oxy 10/23, dronabinol 2.5 BID AC - Patient uses THC at home for pain, dronabinol significantly improved symptoms. - Lidocaine drip discontinued 10/24 DRIVER DRIVER * Assessment & Plan Note - Mario House MD - 10/24/2019 11:45 PM OTR DRIVER Associated Problem(s): Status post carotid surgery - S/P 10/21 aorta -> R axillary bypass and asc aorta + R + L common carotid bypass - Continue to monitor closely for signs of cerebral hyperperfusion syndrome - MAP >65 - No signs of headache or focal neurologic deficits DRIVER * Assessment & Plan Note - Mario House MD - 10/24/2019 11:45 PM OTR DRIVER Associated Problem(s): Acute blood loss anemia - Hgb 7.1 -> 10.3 after 1U PRBC 10/21 - hgb stable since DRIVER DRIVER * Assessment & Plan Note - Mario House MD - 10/24/2019 11:44 PM OTR DRIVER Associated Problem(s): Acute hypoxemic respiratory failure (HCC) (Resolved 11/01/2019) - Extubated on 10/21, transitioned to NC - Placed on Optiflow 10/23 (40L and 40% FiO2), goal SpO2 >92, weaned to NC on 10/24 Continue mobility and PAP treatments as necessary DRIVER DRIVER DRIVER DRIVER * Assessment & Plan Note - Mario House MD - 10/24/2019 11:43 PM OTR DRIVER Associated Problem(s): Labile hypertension (Resolved 08/22/2024) Currently hypotensive but initially hypertensive in OR. Will likely need restarting of his anti-hypertensives once acute post surgical hemodynamics stabilize. - While standing 10/22 afternoon, became hpotensive -> started on levo transiently, sat down and off pressors and back on nicardipine - 10/23 Increased coreg to 25 BID for SBP <120 DRIVER DRIVER * Subjective & Objective - Mario House MD - 10/24/2019 11:[address] ICU Daily Progress Shifts: MD Shift [...] atelectasis and unchanged small left pleural effusion DRIVER DRIVER * Plan of Care - Angie Arrington [...] bronchial hygiene status and adjust treatment appropriately. DRIVER * Plan of Care - Yessi Hill RN - 10/24/2019 4:07 PM CST [facility] Reviewed previous case management notes. Problem: [...] follow for planning and referrals as needed. DRIVER * Plan of Care - Hawa Jean - 10/24/2019 3:05 PM CST Problem: Mobility Goal: STG - Patient will ambulate Description: 200ft with LRAD and SBA, continuously Outcome: Progressing Problem: Transfers Goal: STG - Patient will transfer sit to and from stand Description: SBA with LRAD Outcome: Progressing Cosigned by Zakiya Ceballos, PT at 10/24/2019 3:16 PM OTR DRIVER DRIVER DRIVER * Plan of Care - Araseli Mckeon, SENG - 10/23/2019 11:11 PM OTR DRIVER Problem: Lack of Knowledge: Goal: Ability to [...] 130. Pt's pain improving and pt sleeping. DRIVER * Assessment & Plan Note - Gasper Salgado MD - 10/23/2019 8:07 PM OTR DRIVER Associated Problem(s): Acute hypoxemic respiratory failure (HCC) (Resolved 11/01/2019) - Extubated on 10/21, transitioned to NC - Placed on Optiflow 10/23 (40L and 40% FiO2), goal SpO2 >92 DRIVER * Subjective & Objective - Gasper Salgado MD - 10/23/2019 8:[address] ICU Daily Progress Shifts: MD Shift [...] atelectasis and unchanged small left pleural effusion DRIVER DRIVER DRIVER * Assessment & Plan Note - Gasper Salgado MD - 10/23/2019 8:06 PM OTR DRIVER Associated Problem(s): Status post carotid surgery - S/P 10/21 aorta -> R axillary bypass and asc aorta + R + L common carotid bypass - Continue to monitor closely for signs of cerebral hyperperfusion syndrome - SBP <120 and MAP >65 - No signs of headache or focal neurologic deficits DRIVER DRIVER * Assessment & Plan Note - Gasper Salgado MD - 10/23/2019 8:05 PM OTR DRIVER Associated Problem(s): Acute blood loss anemia - Hgb 7.1 -> 10.3 after 1U PRBC 10/21 - hgb stable on 10/22 DRIVER * Assessment & Plan Note - Gasper Salgado MD - 10/23/2019 8:04 PM OTR DRIVER Associated Problem(s): Labile hypertension (Resolved 08/22/2024) Currently [...] coreg to 25 BID for SBP <120 DRIVER * Assessment & Plan Note - Gasper Salgado MD - 10/23/2019 8:04 PM OTR DRIVER Associated Problem(s): Chronic back pain complicated by acute surgical pain - APAP sched, transitioned to PO oxy 10/23, dronabinol 2.5 BID AC, lido gtt - Patient uses THC at home for pain, dronabinol significantly improved symptoms. DRIVER * Plan of Care - Mandy Waddell [...] of feelings of enhanced comfort will increase 10/23/20191706 by Mandy Waddell RN Outcome: Progressing 10/23/20191705 by Mandy Waddell RN Outcome: Progressing Goal: Pain level will decrease 10/23/20191706 by Mandy Waddell RN Outcome: Progressing 10/23/20191705 by Mandy Waddell RN Outcome: Progressing Problem: Health Behavior: Goal: Understanding of discharge needs will improve 10/23/20191706 by Mandy Waddell RN Outcome: Progressing 10/23/20191705 by Mandy Waddell RN Outcome: Progressing Problem: Activity: Goal: Mobility will improve 10/23/20191706 by Mandy Waddell RN [...] Problem: Nutritional: Goal: Dietary intake will improve 10/23/20191706 by Mandy Waddell RN [...] demonstrate warm and dry skin will improve 10/23/20191706 by Mandy Waddell RN [...] no hypotension or dizziness noted. Will monitor. DRIVER * Plan of Care - Darryl Fernandez RRT - 10/23/2019 10:03 AM CST Pt tolerated EZPAP well; pt was able to achieved a pressure of 15 on 8L with IS of 800; will continue to do tx as scheduled DRIVER * Subjective & Objective - Gasper Salgado MD - 10/22/2019 9:[address] ICU Daily Progress Shifts: MD Shift [...] No more hallucinations, pain well controlled on IN TUBE CONVERSION TECHNICIAN + lido drip Objective Medications: Scheduled Meds:acetaminophen, [...] Rate: 20 mL/hr (10/22/192099) lidocaine, 0.75 mg/kg/hr ([place]), Last Rate: 0.75 mg/kg/hr (10/22/192099) niCARdipine, 0.5-2.5 [...] 154 144* Recent Labs Lab Units 10/22/19 01210/21/19 17210/20/19 2302 SODIUM mmol/L 139 139 136 POTASSIUM [...] CXR: Stable atelectasis bilaterally with no pneumothorax. DRIVER * Assessment & Plan Note - Gasper Salgado MD - 10/22/2019 8:14 PM OTR DRIVER Associated Problem(s): Acute blood loss anemia - Hgb 7.1 -> 10.3 after 1U PRBC 10/21 - hgb stable on 10/22 DRIVER * Assessment & Plan Note - Gasper Salgado MD - 10/22/2019 8:14 PM OTR DRIVER Associated Problem(s): Chronic back pain complicated by acute surgical pain - APAP sched, IN TUBE CONVERSION TECHNICIAN 0.2 q10m, lido gtt DRIVER * Assessment & Plan Note - Gasper Salgado MD - 10/22/2019 8:10 PM OTR DRIVER Associated Problem(s): Labile hypertension (Resolved 08/22/2024) Currently hypotensive but initially hypertensive in OR. Will likely need restarting of his anti-hypertensives once acute post surgical hemodynamics stabilize. - While standing 10/22 afternoon, became hpotensive -> started on levo transiently, sat down and off pressors and back on nicardipine - Currently on nicardipine gtt @ 0.5 on 10/22 P.M. for SBP <120 DRIVER * Assessment & Plan Note - Gasper Salgado MD - 10/22/2019 8:10 PM OTR DRIVER Associated Problem(s): Vertebrobasilar artery insufficiency (Deleted) - S/p aorto to right axillary and aorto to bilateral carotid bypass - Successfully extubated 214 P.M., continue q1h neurovasc checks - MAP>65 and SBP<120, off pressors since extubation, on nicardipine gtt At risk for cerebral hyperperfusion, if severe headache have pt sit up, make sure pressure is controlled and call vascular surgical team while ordering head CT - Daily ASA - q1h Neurovascular checks DRIVER * Plan of Care - Darryl Fernandez, PERIPATOLOGIST - 10/22/2019 3:52 PM CST Pt tolerated EZPAP well; pt was able to achieve a pressure of 15 on 10L with IS of 750; will continue to do tx as scheduled DRIVER * Plan of Care - Suzi Zee, PT - 10/22/2019 2:17 PM CST Problem: Mobility Goal: STG - Patient will ambulate Description 200ft with LRAD and SBA, continuously Outcome: Progressing Problem: Transfers Goal: STG - Patient will transfer sit to and from stand Description SBA with LRAD Outcome: Progressing DRIVER * Plan of Care - Ana Louis [...] off, started levo, will not start antihypertensives DRIVER * Plan of Care - Wesley Flores RRT - 10/22/2019 6:19 AM CST Pt is Able to Self Administer. Acapella with RN or family member is also helpful DRIVER * Plan of Care - Margaret Johnston [...] Summary: Patient is progressing in all areas. DRIVER * Subjective & Objective - Gasper Salgado MD - 10/22/2019 12:[address] ICU Daily Progress Shifts: MD Shift [...] intra-catheter, Q8H [facility] Continuous Infusions:lidocaine, 1.5 mg/kg/hr ([place]) niCARdipine, 0.5-2.5 mcg/kg/min, Last Rate: 2.5 mcg/kg/min (10/22/19 0000) norepinephrine, 0.01-2 mcg/kg/min, Last Rate: Stopped (10/21/191929) [...] Laboratory data: Recent Labs Lab Units 10/21/19 22210/21/19172810/21/19 15510/20/19 230 WBC K/cumm 10.4* 13.8* -- -- [...] 8.3* 9.6 9.0 Recent Labs Lab Units 10/21/19172810/18/19 0102 PROTIME (PT) sec 15.6* 11.2 INR 1.4* 1.0 APTT sec 27 33 Recent Labs Lab Units 10/21/19 1847 10/21/19172810/21/19 1551 PH ART 7.34* 7.33* 7.27* PCO2 ART mmHg 38 38 -- PO2 ART mmHg 161* 156* -- PO2 ARTERIAL POC mmHg -- -- 286* BASE EXC ART mmol/L -5 -6 -- DRIVER DRIVER * Assessment & Plan Note - Gasper Salgado MD - 10/21/2019 11:05 PM OTR DRIVER Associated Problem(s): Acute blood loss anemia - Hgb 7.1 -> 10.3 after 1U PRBC DRIVER * Assessment & Plan Note - Gasper Salgado MD - 10/21/2019 10:12 PM OTR DRIVER Associated Problem(s): Chronic back pain complicated by acute surgical pain - APAP sched, 10 oxy q3h, dilaudid breakthrough pain, lido gtt DRIVER DRIVER * Assessment & Plan Note - Gasper Salgado MD - 10/21/2019 10:12 PM OTR DRIVER Associated Problem(s): Labile hypertension (Resolved 08/22/2024) Currently hypotensive but initially hypertensive in OR. Will likely need restarting of his anti-hypertensives once acute post surgical hemodynamics stabilize. - Currently on nicardipine gtt @ 2.5 on 10/22 A.M. for SBP <120 DRIVER DRIVER * Assessment & Plan Note - Gasper Salgado MD - 10/21/2019 9:55 PM OTR DRIVER Associated Problem(s): Vertebrobasilar artery insufficiency (Deleted) - [...] - Daily ASA - q1h Neurovascular checks DRIVER DRIVER * Plan of Care - Camron Coburn RRT - 10/21/2019 9:19 PM OTR DRIVER Pt extubated at 1940 and placed on 3L NC with no distress. Will monitor remainderof the shift. DRIVER * Assessment & Plan Note - Mario House MD - 10/21/2019 8:48 PM OTR DRIVER Associated Problem(s): Labile hypertension (Resolved 08/22/2024) Currently hypotensive but initially hypertensive in OR. Will likely need restarting of his anti-hypertensives once acute post surgical hemodynamics stabilize. DRIVER * Assessment & Plan Note - Mario House MD - 10/21/2019 8:47 PM OTR DRIVER Associated Problem(s): Chronic back pain complicated by acute surgical pain Dilaudid PRN while intubated, will add scheduled acetaminophen and PRN oxycodone once extubated. DRIVER * Assessment & Plan Note - Mario House MD - 10/21/2019 8:43 PM OTR DRIVER Associated Problem(s): Vertebrobasilar artery insufficiency (Deleted) S/p [...] head CT Daily ASA q1h Neurovascular checks DRIVER * Subjective & Objective - Mario House MD - 10/21/2019 6:[address] ICU History and Physical Shifts: MD [...] significant pneumo or hemothorax. ETT properly placed. DRIVER DRIVER DRIVER * Plan of Care - Nilda Sanchez [...] for d/c planning and referrals as needed. DRIVER * Op Note - Nanci Giron MD [...] needle, sponge and instrument counts were correct. DRIVER * Brief Op Note - Juwan Jacobo MD - 10/21/2019 11:49 AM CST Operative Progress Note Surgical Team: Surgeon(s) and Role: * Nanci Giron MD - Primary * Taryn Whitley MD - Resident - Assisting * Zeyad Leger MD - Fellow * Juwan Jacobo MD - Fellow * Azar Ramírez MD - Co-Surgeon Anesthesiologist: Hosea Patricia MD; Zack Felton MD PhD Software Design Manager: Jeremy Olson MD; Maliha Michael MD Video Control Engineer: Sylvester White RN Video Control Engineer Relief: Renée Gan RN; Mariel Gonzalez RN Scrub Relief: Renée Gan RN Scrub: [facility] [place]BAL[place] Curtis: Stephanie Ochoa RN; Shirley Webster RN DATE OF SURGERY : [...] Implant Name Type Inv. Item Serial No. Web Applications Administrator Lot No. [id number] No. Used [employer] [id number] 6MM 80CM 60CM STRETCH REMOVABLE RING LINE PERIPHERALTHIN WALL - [id number] - [id number] Graft [employer] [id number] 6mm 80cm 60cm Stretch Removable Ring Line Peripheral Thin Wall [id number] [employer] [place] [employer] Right 1 [employer] [id number] HEMASHIELD [place] 8MM 30CM WOVEN SMOOTH NEEDLE PASSAGE SUTURE -[id number] - [id number] Graft [employer] [id number] Hemashield [place] 8mm 30cm WovenSmooth Needle Passage Suture [id number] N/A 1 TER[employer] CARDIO VASCULAR [id number] GELSOFT PLUS VASCUTEK 14/7MM 45CM MAIN LEG BORE REDUCED - [id number] - [id number] Graft TERUMO CARDIO VASCULAR [id number] Gelsoft Plus Vascutek 14/7mm 45cm Main Leg Bore Reduced [id number] Terumo Cardio Vascular [id number] N/A 1 Blood/Blood Products Transfused: 240 Cell [...] Azar Ramírez MD at 10/22/2019 1:15 PM OTR DRIVER DRIVER DRIVER * Plan of Care - Johnny Peterson [...] of discharge needs will improve Outcome: Progressing DRIVER * Op Note - Azar Ramírez MD - 10/21/2019 12:00 AM CST Preoperative Diagnosis 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 Procedure Performed Aortic arch reconstruction with multiple branch-graft technique with 6 mm [place]- Jaime graft from the aorta to the [...] anddistal and then got a 6 mm [place]Jaime ringed graft and sewed it end-to-end to [...] biter clamp on and the 6 mm [place]Jaime graft that was going to the axillary, [...] a 5-0 just distal to its bifurcation. Srikanth cut it with a bevel and sewed [...] cardiac surgical procedures. Job ID/VF Job ID: [id number] DRIVER * Plan of Care - Miguel Ángel [...] Monitor labs, OR 10/21, [facility] [place] Summary: DRIVER * Plan of Care - Muna Hope [...] and verbalizes understanding. Will continue to monitor. DRIVER * Plan of Care - Miguel Ángel [...] cath site, remain free from falls Summary: DRIVER * Plan of Care - Muna Hope [...] and verbalizes understanding. Will continue to monitor. DRIVER * Plan of Care - Nilda Sanchez [...] for d/c planning and referrals as needed. DRIVER * Plan of Care - Kenia Dominguez [...] assess cath site, remain free from falls DRIVER * Plan of Care - Sarah Velasco RN - 10/18/2019 4:31 PM CST Goals: Clinical Goals for the Shift: Free from falls, stable vitals, to cardiac forestry laborer and MRI for testing Problem: Lack [...] performed during shift. Patient to transfer to [facility] DRIVER * Post-Procedure Note - Jd Sinha MD - 10/18/2019 11:18 AM OTR DRIVER Preliminary Note Procedure: Procedure(s): LEFT HEART CATHETERIZATION WITH CORONARY ANGIOGRAPHY AND WITH OR WITHOUT LEFT VENTRICULOGRAM 63308 Indication: pre-op eval for Cerebrovascular surgery Access Site: RFA 5 Fr; closed with 6 Fr angioseal Results: Normal cor angios. Left dominant system Recommendations: No coronary revascularization indicated Jd Sinha MD 11:18 AM DRIVER * Pre-Cardiac Catheterization Workup and H&P - Rosmery Murphy NP - 10/18/2019 8:54 AM CST PRE-CARDIAC CATHETERIZATION WORKUP Patient Name: Suma Saenz Patient Patient : 1945 Date of Procedure: 10/18/2019 ORDERING INTERMEDIATE DESIGNER: Surgeon(s): STAT, GENERIC SURGEON Procedure(s): LEFT HEART CATHETERIZATION WITH CORONARY ANGIOGRAPHY AND WITH OR WITHOUT LEFT VENTRICULOGRAM 25528 Requested Diagnostic: [] Coronary Angiograms Only [x] [...] Yes [] No [] Contraindicated Indications for Content Creation Manager visit (Select all that apply): [] ACS [...] ESRD [] Dialysis [] HD []PD: Prior [place]: [] Yes [] No If Yes, Most Recent [place] Date: Tobacco Use Social History Tobacco Use [...] Yes, Newly Diagnosed: [] Yes [] No [facility] Class: [] Class I [] Class [...] EKG: sinus bradycardia IMPRESSION: 73yoF here for [facility] as part of pre-op evaluation [facility] Clinical Frailty Scale: [] 1: Very Fit [...] and Assessment Completed by: Name: Rosmery Murphy MATERIAL HANDLING WAREHOUSE SUPERVISOR-C Date: 10/18/2019 Time: 904 Cosigned by Jd Sinha MD at 10/18/2019 9:59 AM OTR DRIVER DRIVER DRIVER DRIVER DRIVER * Pre-Sedation Documentation - Rosmery Murphy NP [...] Nightly Gisella Freedman MD 80 mg at 10/18/194 ??? buPROPion XL (WELLBUTRIN XL) 24 hour [...] 5,000 Units 5,000 Units subcutaneous Q8H [facility] Gisella Freedman MD Stopped at 10/18/19828 ??? hydroCHLOROthiazide (HYDRODIURIL) tablet 25 mg 25 mg oral Daily Gisella Freedman MD 25 mg at 10/18/19828 ??? Lactated Ringer's (LR) infusion 50 mL/hr intravenous Continuous Gisella Freedman MD Stopped at 10/18/19851 ??? montelukast (SINGULAIR) tablet 10 mg 10 mg oral Nightly Gisella Feredman MD ??? 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 10/21/2019 4:49 PM OTR DRIVER Scheduled Orders Name Type Priority Associated Diagnoses Orde r Schedule ECG 12 lead ECG STAT Once for 1 Oc currences starting 10/21/2019 until 10/21/2019 documented as of this encounter Procedures Procedure Name Priority Date/Time Associated Diagnosis Comments DIFFERENTIAL AUTO Routine 10/27/2019 12:41 AM OTR DRIVER CBC WITH AUTO DIFFERENTIAL Routine 10/27/2019 12:41 AM OTR DRIVER BASIC METABOLIC PANEL Routine 10/27/2019 12:41 AM OTR DRIVER DIFFERENTIAL AUTO Routine 10/25/2019 11:19 PM OTR DRIVER CBC WITH AUTO DIFFERENTIAL Routine 10/25/2019 11:19 PM OTR DRIVER LIDOCAINE LEVEL Timed 10/25/2019 11:19 PM OTR DRIVER TYPE AND SCREEN Timed 10/25/2019 11:19 PM OTR DRIVER PHOSPHORUS Routine 10/25/2019 11:19 PM OTR DRIVER MAGNESIUM Routine 10/25/2019 11:19 PM OTR DRIVER BASIC METABOLIC PANEL Routine 10/25/2019 11:19 PM OTR DRIVER MRSA ONLY (STAPHYLOCOCCUS AUREUS) CULTURE Routine 10/25/2019 11:40 AM OTR DRIVER POCT GLUCOSE DEVICE Routine 10/25/2019 11:34 AM OTR DRIVER CRITICAL CARE Routine 10/25/2019 11:07 AM OTR DRIVER Acute postoperative pain POCT GLUCOSE DEVICE Routine 10/25/2019 8 :13 AM OTR DRIVER TYPE AND SCREEN Timed 10/25/2019 5:24 AM OTR DRIVER DIFFERENTIAL AUTO Routine 10/25/2019 4:1 9 AM OTR DRIVER CALCIUM, IONIZED Routine 10/25/2019 4:19 AM OTR DRIVER POCT GLUCOSE DEVICE Routine 10/25/2019 4 :19 AM OTR DRIVER CBC WITH AUTO DIFFERENTIAL Routine 10/25/2019 4:19 AM OTR DRIVER PHOSPHORUS Routine 10/25/2019 4:19 AM OTR DRIVER MAGNESIUM Routine 10/25/2019 4:19 AM OTR DRIVER BASIC METABOLIC PANEL Routine 10/25/2019 4:19 AM OTR DRIVER POCT GLUCOSE DEVICE Routine 10/24/2019 11:08 PM OTR DRIVER XR CHEST 1 VIEW Timed 10/24/2019 9:52 PM OTR DRIVER ECG 12-LEAD STAT 10/24/2019 8:21 PM OTR DRIVER POCT GLUCOSE DEVICE Routine 10/24/2019 8 :11 PM OTR DRIVER PEP THERAPY Routine 10/24/2019 6:00 PM OTR DRIVER MAGNESIUM Routine 10/24/2019 5:29 PM OTR DRIVER BASIC METABOLIC PANEL Routine 10/24/2019 5:29 PM OTR DRIVER POCT GLUCOSE DEVICE Routine 10/24/2019 4 :28 PM OTR DRIVER PEP THERAPY Routine 10/24/2019 1:00 PM OTR DRIVER CRITICAL CARE Routine 10/24/2019 12:48 PM OTR DRIVER Labile hypertension POCT GLUCOSE DEVICE Routine 10/24/2019 12:22 PM OTR DRIVER PEP THERAPY Routine 10/24/2019 8:00 AM OTR DRIVER POCT GLUCOSE DEVICE Routine 10/24/2019 7 :35 AM OTR DRIVER DIFFERENTIAL AUTO Routine 10/24/2019 1:3 5 AM OTR DRIVER CBC WITH AUTO DIFFERENTIAL Routine 10/24/2019 1:35 AM OTR DRIVER LIDOCAINE LEVEL Timed 10/24/2019 1:35 AM OTR DRIVER PHOSPHORUS Routine 10/24/2019 1:35 AM OTR DRIVER MAGNESIUM Routine 10/24/2019 1:35 AM OTR DRIVER BASIC METABOLIC PANEL Routine 10/24/2019 1:35 AM OTR DRIVER POCT GLUCOSE DEVICE Routine 10/23/2019 11:43 PM OTR DRIVER POCT GLUCOSE DEVICE Routine 10/23/2019 9 :36 PM OTR DRIVER XR CHEST 1 VIEW Timed 10/23/2019 8:56 PM OTR DRIVER POCT GLUCOSE DEVICE Routine 10/23/2019 3 :28 PM OTR DRIVER PEP THERAPY Routine 10/23/2019 3:00 PM OTR DRIVER POCT GLUCOSE DEVICE Routine 10/23/2019 12:10 PM OTR DRIVER CRITICAL CARE Routine 10/23/2019 11:12 AM OTR DRIVER Acute postoperative pain Acute respiratory failure with hypoxia (CMS/HCC) Orthostatic hypotension PEP THERAPY Routine 10/23/2019 9:00 AM OTR DRIVER POCT GLUCOSE DEVICE Routine 10/23/2019 7 :51 AM OTR DRIVER TYPE AND SCREEN Timed 10/22/2019 11:59 PM OTR DRIVER POCT GLUCOSE DEVICE Routine 10/22/2019 11:53 PM OTR DRIVER LIDOCAINE LEVEL Routine 10/22/2019 11:50 PM OTR DRIVER CBC WITHOUT DIFFERENTIAL Routine 10/22/2019 11:50 PM OTR DRIVER PHOSPHORUS Routine 10/22/2019 11:50 PM OTR DRIVER MAGNESIUM Routine 10/22/2019 11:50 PM OTR DRIVER BASIC METABOLIC PANEL Routine 10/22/2019 11:50 PM OTR DRIVER POCT GLUCOSE DEVICE Routine 10/22/2019 8 :20 PM OTR DRIVER XR CHEST 1 VIEW ED Urgent/IP Urgent 10/22/2019 4:15 PM OTR DRIVER POCT GLUCOSE DEVICE Routine 10/22/2019 4 :10 PM OTR DRIVER PEP THERAPY Routine 10/22/2019 3:00 PM OTR DRIVER CRITICAL CARE Routine 10/22/2019 12:06 PM OTR DRIVER Vertebral artery compression syndrome Syncope and collapse PEP THERAPY Routine 10/22/2019 11:49 AM OTR DRIVER PEP THERAPY Routine 10/22/2019 11:49 AM OTR DRIVER PEP THERAPY Routine 10/22/2019 11:49 AM OTR DRIVER POCT GLUCOSE DEVICE Routine 10/22/2019 11:48 AM OTR DRIVER CBC WITHOUT DIFFERENTIAL STAT 10/22/2019 11:37 AM OTR DRIVER LIDOCAINE LEVEL Timed 10/22/2019 8:32 AM OTR DRIVER POCT GLUCOSE DEVICE Routine 10/22/2019 7 :47 AM OTR DRIVER PEP THERAPY Routine 10/22/2019 5:56 AM OTR DRIVER POCT GLUCOSE DEVICE Routine 10/22/2019 3 :41 AM OTR DRIVER ECG 12-LEAD Routine 10/22/2019 2:02 AM OTR DRIVER CBC WITHOUT DIFFERENTIAL Routine 10/22/2019 1:24 AM OTR DRIVER PHOSPHORUS Timed 10/22/2019 1:24 AM OTR DRIVER MAGNESIUM Timed 10/22/2019 1:24 AM OTR DRIVER BASIC METABOLIC PANEL Timed 10/22/2019 1:24 AM OTR DRIVER POCT GLUCOSE DEVICE Routine 10/22/2019 12:10 AM OTR DRIVER CBC WITHOUT DIFFERENTIAL Timed 10/21/2019 10:20 PM OTR DRIVER XR CHEST 1 VIEW Timed 10/21/2019 8:38 PM OTR DRIVER POCT GLUCOSE DEVICE Routine 10/21/2019 8 :24 PM OTR DRIVER EXTUBATION Routine 10/21/2019 7:00 PM OTR DRIVER MRSA ONLY (STAPHYLOCOCCUS AUREUS) CULTURE STAT 10/21/2019 6:50 PM OTR DRIVER TRANSFUSE RED BLOOD CELLS Timed 10/21/2019 6:50 PM OTR DRIVER INFECTION PREVENTION MRSA ONLY (STAPHYLOCOCCUS AUREUS) CULTURE Routine 10/21/2019 6:50 PM OTR DRIVER POTASSIUM, WHOLE BLOOD STAT 10/21/2019 6:47 PM OTR DRIVER BLOOD GAS, ARTERIAL STAT 10/21/2019 6 :47 PM OTR DRIVER PREPARE RBC Timed 10/21/2019 6:34 PM OTR DRIVER LACTATE, WHOLE BLOOD STAT 10/21/2019 5:29 PM OTR DRIVER APTT STAT 10/21/2019 5:29 PM OTR DRIVER PROTIME-INR STAT 10/21/2019 5:29 PM OTR DRIVER CBC WITHOUT DIFFERENTIAL STAT 10/21/2019 5:29 PM OTR DRIVER BLOOD GAS, ARTERIAL STAT 10/21/2019 5 :29 PM OTR DRIVER BASIC METABOLIC PANEL STAT 10/21/2019 5:29 PM OTR DRIVER XR CHEST 1 VIEW Critical/Life- Threatening 10/21/2019 5:27 PM OTR DRIVER POCT GLUCOSE DEVICE Routine 10/21/2019 5 :07 PM OTR DRIVER VASCULAR SURGERY PROCEDURE Routine 10/21/2019 4:49 PM OTR DRIVER 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 POC BLOOD GAS AND CHEMISTRIES, ARTERIAL Routine 10/21/2019 3:51 PM OTR DRIVER POCT ACTIVATED CLOTTING TIME, LOW RANGE Routine 10/21/2019 3:43 PM OTR DRIVER POCT ACTIVATED CLOTTING TIME, LOW RANGE Routine 10/21/2019 3:06 PM OTR DRIVER POCT ACTIVATED CLOTTING TIME, LOW RANGE Routine 10/21/2019 2:37 PM OTR DRIVER POCT ACTIVATED CLOTTING TIME, LOW RANGE Routine 10/21/2019 2:10 PM OTR DRIVER POC BLOOD GAS AND CHEMISTRIES, ARTERIAL Routine 10/21/2019 2:06 PM OTR DRIVER POCT ACTIVATED CLOTTING TIME, LOW RANGE Routine 10/21/2019 1:34 PM OTR DRIVER POCT ACTIVATED CLOTTING TIME, LOW RANGE Routine 10/21/2019 1:08 PM OTR DRIVER POCT ACTIVATED CLOTTING TIME, LOW RANGE Routine 10/21/2019 12:19 PM OTR DRIVER BYPASS AORTIC INNOMINATE 10/21/2019 10:46 AM OTR DRIVER 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 DIFFERENTIAL AUTO Routine 10/20/2019 11:02 PM OTR DRIVER CBC WITH AUTO DIFFERENTIAL Routine 10/20/2019 11:02 PM OTR DRIVER BASIC METABOLIC PANEL Routine 10/20/2019 11:02 PM OTR DRIVER TYPE AND SCREEN Timed 10/20/2019 12:17 PM OTR DRIVER PREPARE RBC Timed 10/20/2019 9:43 AM OTR DRIVER DIFFERENTIAL AUTO Routine 10/20/2019 12:36 AM OTR DRIVER CBC WITH AUTO DIFFERENTIAL Routine 10/20/2019 12:36 AM OTR DRIVER BASIC METABOLIC PANEL Routine 10/20/2019 12:36 AM OTR DRIVER US GROIN PSEUDO DUPLEX RIGHT IP Routine 10/19/2019 10:30 AM OTR DRIVER DIFFERENTIAL AUTO Routine 10/19/2019 12:13 AM OTR DRIVER CBC WITH AUTO DIFFERENTIAL Routine 10/19/2019 12:13 AM OTR DRIVER BASIC METABOLIC PANEL Routine 10/19/2019 12:13 AM OTR DRIVER MRI BRAIN MRA HEAD W WO CONTRAST IP Routine 10/18/2019 7:03 PM OTR DRIVER MRA NECK W WO CONTRAST IP Routine 10/18/2019 7:03 PM OTR DRIVER LEFT HEART CATHETERIZATION WITH CORONARY ANGIOGRAPHY AND WITH AND WITHOUT LEFT VENTRICULOGRAM Routine 10/18/2019 11:21 AM OTR DRIVER 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) CBC WITHOUT DIFFERENTIAL Routine 10/18/2019 10:37 AM OTR DRIVER APTT STAT 10/18/2019 1:02 AM OTR DRIVER PROTIME-INR STAT 10/18/2019 1:02 AM OTR DRIVER CBC WITHOUT DIFFERENTIAL STAT 10/18/2019 1:02 AM OTR DRIVER TYPE AND SCREEN STAT 10/18/2019 1:02 AM OTR DRIVER PHOSPHORUS STAT 10/18/2019 1:02 AM OTR DRIVER MAGNESIUM STAT 10/18/2019 1:02 AM OTR DRIVER BASIC METABOLIC PANEL STAT 10/18/2019 1:02 AM OTR DRIVER ECG 12-LEAD STAT 10/18/2019 12:33 AM OTR DRIVER documented in this encounter Results * (ABNORMAL) Differential, auto (10/27/2019 12:41 AM OTR DRIVER) Neutrophil abs 2.9 1.7 - 6.5 K/cumm [facility] Imm gran abs 0.2(H) 0.0 - 0.1 K/cumm [facility] Lymphocyte abs 1.9 0.8 - 3.3 K/cumm [facility] Monocyte abs 1.0(H) 0.2 - 0.8 K/cumm [facility] Eosinophil abs 0.1 0.0 - 0.5 K/cumm [facility] Basophil abs 0.0 0.0 - 0.1 K/cumm [facility] Neutrophil pct 47.3 % [facility] Comment: Interpretive Data Percent cell count reference ranges are not reported, since discordance with absolute values may lead to misinterpretation of CBC data. Current Interpretive Data was last revised on 2017. Imm gran pct 2.4 % [facility] Comment: Interpretive Data Percent cell count reference ranges are not reported, since discordance with absolute values may lead to misinterpretation of CBC data. Current Interpretive Data was last revised on 2017. Lymphocyte pct 31.4 % [facility] Comment: Interpretive Data Percent cell count reference ranges are not reported, since discordance with absolute values may lead to misinterpretation of CBC data. Current Interpretive Data was last revised on 2017. Monocyte pct 16.1 % [facility] Comment: Interpretive Data Percent cell count reference ranges are not reported, since discordance with absolute values may lead to misinterpretation of CBC data. Current Interpretive Data was last revised on 2017. Eosinophil pct 2.1 % [facility] Comment: Interpretive Data Percent cell count reference ranges are not reported, since discordance with absolute values may lead to misinterpretation of CBC data. Current Interpretive Data was last revised on 2017. Basophil pct 0.7 % [facility] Comment: Interpretive Data Percent cell count reference ranges are not reported, since discordance with absolute values may lead to misinterpretation of CBC data. Current Interpretive Data was last revised on 2017. Blood specimen (specimen) 10/27/2019 12:41 AM OTR DRIVER 10/27/2019 1:29 AM OTR DRIVER Annemarie Lynne NP LAB BLOOD ORDERABLES F inal Result [facility] Department [place] [address] * (ABNORMAL) CBC with auto differential (10/27/2019 12:41 AM OTR DRIVER) WBC 6.2 3.8 - 9.9 K/cumm [facility] Hgb 8.8(L) 11.9 - 15.5 g/dL [facility] Hct 26.6(L) 35.6 - 45.5 % [facility] Plt 285 150 - 400 K/cumm [facility] MPV 9.4 9.1 - 12.3 fL [facility] RBC 2.84(L) 3.90 - 5.20 M/cumm [facility] MCV 93.7 81.3 - 96.4 fL [facility] MCH 31.0 27.1 - 33.3 pg [facility] MCHC 33.1 32.3 - 35.7 g/dL [facility] RDW CV 14.1 11.1 - 14.9 % [facility] RDW SD 47.8 35.7 - 48.1 fL [facility] NRBC abs 0.04(H) 0.00 - 0.01 K/cumm [facility] Blood specimen (specimen) 10/27/2019 12:41 AM OTR DRIVER 10/27/2019 1:29 AM OTR DRIVER Annemarie Lynne NP LAB BLOOD ORDERABLES F inal Result [facility] Department [place] [address] * (ABNORMAL) Basic metabolic panel (10/27/2019 12:41 AM OTR DRIVER) Sodium 133(L) 135 - 145 mmol/L [facility] Potassium, pl 3.9 3.3 - 4.9 mmol/L [facility] Chloride 100 97 - 110 mmol/L [facility] CO2 25 22 - 32 mmol/L [facility] Anion gap 8 2 - 15 mmol/L [facility] BUN 17 8 - 25 mg/dL [facility] Creatinine 0.83 0.60 - 1.10 mg/dL [facility] Glucose 107 70 - 199 mg/dL [facility] Comment: Interpretive Data Fasting glucose >/= 126 [...] 2017. Calcium 9.0 8.5 - 10.3 mg/dL [facility] Blood specimen (specimen) 10/27/2019 12:41 AM OTR DRIVER 10/27/2019 1:29 AM OTR DRIVER Annemarie Rachel Lynne [employer] LAB BLOOD ORDERABLES F inal Result [facility] Department [place] [address] * Differential, auto (10/25/2019 11:19 PM OTR DRIVER) Neutrophil abs 3.7 1.7 - 6.5 K/cumm [facility] Imm gran abs 0.1 0.0 - 0.1 K/cumm [facility] Lymphocyte abs 1.1 0.8 - 3.3 K/cumm [facility] Monocyte abs 0.8 0.2 - 0.8 K/cumm [facility] Eosinophil abs 0.1 0.0 - 0.5 K/cumm [facility] Basophil abs 0.0 0.0 - 0.1 K/cumm [facility] Neutrophil pct 63.2 % [facility] Comment: Interpretive Data Percent cell count reference ranges are not reported, since discordance with absolute values may lead to misinterpretation of CBC data. Current Interpretive Data was last revised on 2017. Imm gran pct 1.4 % [facility] Comment: Interpretive Data Percent cell count reference ranges are not reported, since discordance with absolute values may lead to misinterpretation of CBC data. Current Interpretive Data was last revised on 2017. Lymphocyte pct 19.2 % [facility] Comment: Interpretive Data Percent cell count reference ranges are not reported, since discordance with absolute values may lead to misinterpretation of CBC data. Current Interpretive Data was last revised on 2017. Monocyte pct 14.3 % [facility] Comment: Interpretive Data Percent cell count reference ranges are not reported, since discordance with absolute values may lead to misinterpretation of CBC data. Current Interpretive Data was last revised on 2017. Eosinophil pct 1.4 % [facility] Comment: Interpretive Data Percent cell count reference ranges are not reported, since discordance with absolute values may lead to misinterpretation of CBC data. Current Interpretive Data was last revised on 2017. [facility]ophil pct 0.5 % [facility] Comment: Interpretive Data Percent cell count reference ranges are not reported, since discordance with absolute values may lead to misinterpretation of CBC data. Current Interpretive Data was last revised on 2017. Blood specimen (specimen) 10/25/2019 11:19 PM OTR DRIVER 10/25/2019 11:48 PM OTR DRIVER Nanci Giron MD LAB BLOOD ORDERABLES Tiffany l Result Performing Organization Address [facility] Co de Phone Number [facility] [place] [address] * Type and screen (10/25/2019 11:19 PM OTR DRIVER) Mara, indirect Negative [facility] ABO Rh O Positive [facility] Blood specimen (specimen) 10/25/2019 11:19 PM OTR DRIVER 10/26/2019 12:07 AM OTR DRIVER Narrative [facility] - 10/26/2019 1:13 AM OTR DRIVER Has the patient had Daratumumab (Darzalex) in the past 6 months?->Unknown Nanci Giron MD LAB BLOOD BANK TEST ORDER EDD Final Result Performing Organization Address [facility] [place] [address] * Phosphorus (10/25/2019 11:19 PM OTR DRIVER) Phosphorus, pl 2.6 2.3 - 4.5 mg/dL [facility] Blood specimen (specimen) 10/25/2019 11:19 PM OTR DRIVER 10/25/2019 11:47 PM OTR DRIVER Nanci Giron MD LAB BLOOD ORDERABLES Tiffany l Result Performing Organization Address [facility] [place] [address] * Magnesium (10/25/2019 11:19 PM OTR DRIVER) Magnesium 2.3 1.4 - 2.5 mg/dL [facility] Blood specimen (specimen) 10/25/2019 11:19 PM OTR DRIVER 10/25/2019 11:47 PM OTR DRIVER Nanci Giron MD LAB BLOOD ORDERABLES Tiffany l Result Performing Organization Address City/[facility]/ZIP Co de Phone Number [facility] Department [place] [address] * (ABNORMAL) Basic metabolic panel (10/25/2019 11:19 PM OTR DRIVER) Pathologist [facility] Sodium 131(L) 135 - 145 mmol/L [facility] Potassium, pl 4.0 3.3 - 4.9 mmol/L [facility] Chloride 96(L) 97 - 110 mmol/L [facility] CO2 26 22 - 32 mmol/L [facility] Anion gap 9 2 - 15 mmol/L [facility] BUN 21 8 - 25 mg/dL [facility] Creatinine 0.79 0.60 - 1.10 mg/dL [facility] Glucose 115 70 - 199 mg/dL [facility] Comment: Interpretive Data Fasting glucose >/= 126 [...] 2017. Calcium 9.2 8.5 - 10.3 mg/dL [facility] Blood specimen (specimen) 10/25/2019 11:19 PM OTR DRIVER 10/25/2019 11:47 PM OTR DRIVER Nanci Giron MD LAB BLOOD ORDERABLES Tiffany l Result Performing Organization Address [facility]/ZIP Co de Phone Number [facility] [place] [address] * (ABNORMAL) CBC with auto differential (10/25/2019 11:19 PM OTR DRIVER) [facility] WBC 5.9 3.8 - 9.9 K/cumm [facility] Hgb 8.3(L) 11.9 - 15.5 g/dL [facility] Hct 24.3(L) 35.6 - 45.5 % [facility] Plt 240 150 - 400 K/cumm [facility] MPV 9.5 9.1 - 12.3 fL [facility] RBC 2.66(L) 3.90 - 5.20 M/cumm [facility] MCV 91.4 81.3 - 96.4 fL [facility] MCH 31.2 27.1 - 33.3 pg [facility] MCHC 34.2 32.3 - 35.7 g/dL [facility] RDW CV 14.1 11.1 - 14.9 % [facility] RDW SD 46.6 35.7 - 48.1 fL [facility] NRBC abs 0.00 0.00 - 0.01 K/cumm [facility] Blood specimen (specimen) 10/25/2019 11:19 PM OTR DRIVER 10/25/2019 11:48 PM OTR DRIVER Nanci Giron MD LAB BLOOD ORDERABLES Tiffany l Result [facility] Department [place] [address] * (ABNORMAL) Lidocaine level (10/25/2019 11:19 PM OTR DRIVER) [facility] Lidocaine (Xylocaine) <1.0(L) 1.5 - 5.0 mcg/mL [facility] Blood specimen (specimen) 10/25/2019 11:19 PM OTR DRIVER 10/25/2019 11:47 PM OTR DRIVER Nanci Giron MD LAB BLOOD ORDERABLES Tiffany l Result Performing Organization Address [facility] Co de Phone Number [facility] [place] [address] * MRSA Only (Staphylococcus aureus) Culture Nasal (10/25/2019 11:40 AM OTR DRIVER) Report Final Report: Negative [facility] Nasal 10/25/2019 11:4 0 AM OTR DRIVER 10/25/2019 12:31 PM OTR DRIVER Narrative [facility] - 10/26/2019 1:34 PM OTR DRIVER Testing performed by [facility] ([phone]). us Jayce Alvarez MD LAB MICROBIOLOGY - GENERAL ORDER EDD Final Result Performing Organization Address [facility] [place] [address] * POCT glucose (10/25/2019 11:34 AM OTR DRIVER) Glucose, POC 155 70 - 199 mg/dL [facility] Blood specimen (specimen) 10/25/2019 11:34 AM OTR DRIVER 10/25/2019 11:34 AM OTR DRIVER us Nanci Giron MD LAB POCT ORDERABLES - DEV ICE Final Result Performing Organization Address [facility] Co de Phone Number [facility] [place] [address] * Critical Care (10/25/2019 11:07 AM OTR DRIVER) Narrative Michael Marcelo MD - 10/25/2019 11:07 AM OTR DRIVER Michael Marcelo MD ? 10/25/2019 11:08 AM [...] plan with the patient's team and other medical/eyewear consultant staff. This time was in addition [...] spent time documenting in the medical record Result [facility] Michael Marcelo MD IN CLINIC/BEDSIDE ORDERABL ES Final Result * POCT glucose (10/25/2019 8:13 AM OTR DRIVER) Glucose, POC 117 70 - 199 mg/dL [facility] Blood specimen (specimen) 10/25/2019 8:13 AM OTR DRIVER 10/25/2019 8:13 AM OTR DRIVER Result [facility] Nanci Giron MD LAB POCT ORDERABLES - DEV ICE Final Result Performing Organization Address [facility]/ZIP Co de Phone Number [facility] Department [place] [address] * Type and screen (10/25/2019 5:24 AM OTR DRIVER) ABO Rh O Positive [facility] Mara, indirect Negative [facility] Blood specimen (specimen) 10/25/2019 5:24 AM OTR DRIVER 10/25/2019 5:35 AM OTR DRIVER Narrative [facility] - 10/25/2019 6:26 AM OTR DRIVER Has the patient had Daratumumab (Darzalex) in the past 6 months?->Unknown Result [facility] Mario House MD LAB BLOOD BANK TEST OR DERABLES Final Result Performing Organization Address City/[facility]/ZIP Co de Phone Number [facility] Department [place] [address] * Differential, auto (10/25/2019 4:19 AM OTR DRIVER) Neutrophil abs 4.4 1.7 - 6.5 K/cumm [facility] Imm gran abs 0.0 0.0 - 0.1 K/cumm [facility] Lymphocyte abs 1.6 0.8 - 3.3 K/cumm [facility] Monocyte abs 0.7 0.2 - 0.8 K/cumm [facility] Eosinophil abs 0.1 0.0 - 0.5 K/cumm [facility] Basophil abs 0.0 0.0 - 0.1 K/cumm [facility] Neutrophil pct 63.1 % [facility] Comment: Interpretive Data Percent cell count reference ranges are not reported, since discordance with absolute values may lead to misinterpretation of CBC data. Current Interpretive Data was last revised on 2017. Imm gran pct 0.6 % [facility] Comment: Interpretive Data Percent cell count reference ranges are not reported, since discordance with absolute values may lead to misinterpretation of CBC data. Current Interpretive Data was last revised on 2017. Lymphocyte pct 23.4 % [facility] Comment: Interpretive Data Percent cell count reference ranges are not reported, since discordance with absolute values may lead to misinterpretation of CBC data. Current Interpretive Data was last revised on 2017. Monocyte pct 10.6 % [facility] Comment: Interpretive Data Percent cell count reference ranges are not reported, since discordance with absolute values may lead to misinterpretation of CBC data. Current Interpretive Data was last revised on 2017. Eosinophil pct 2.0 % [facility] Comment: Interpretive Data Percent cell count reference ranges are not reported, since discordance with absolute values may lead to misinterpretation of CBC data. Current Interpretive Data was last revised on 2017. Basophil pct 0.3 % [facility] Comment: Interpretive Data Percent cell count reference ranges are not reported, since discordance with absolute values may lead to misinterpretation of CBC data. Current Interpretive Data was last revised on 2017. Blood specimen (specimen) 10/25/2019 4:19 AM OTR DRIVER 10/25/2019 4:31 AM OTR DRIVER Nanci Giron MD LAB BLOOD ORDERABLES Tiffany l Result Performing Organization Address [facility] Co de Phone Number [facility] [place] [address] * POCT glucose (10/25/2019 4:19 AM OTR DRIVER) [facility] Glucose, POC 120 70 - 199 mg/dL [facility] Blood specimen (specimen) 10/25/2019 4:19 AM OTR DRIVER 10/25/2019 4:19 AM OTR DRIVER Nanci Giron MD LAB POCT ORDERABLES - DEV ICE Final Result Performing Organization Address [facility] de Phone Number [facility] [place] [address] * Magnesium (10/25/2019 4:19 AM OTR DRIVER) [facility] Magnesium 2.2 1.4 - 2.5 mg/dL [facility] Blood specimen (specimen) 10/25/2019 4:19 AM OTR DRIVER 10/25/2019 4:31 AM OTR DRIVER Nanci Giron MD LAB BLOOD ORDERABLES Tiffany l Result Performing Organization Address [facility] [place] [address] * (ABNORMAL) Basic metabolic panel (10/25/2019 4:19 AM OTR DRIVER) [facility] Sodium 131(L) 135 - 145 mmol/L [facility] Potassium, pl 3.7 3.3 - 4.9 mmol/L [facility] Chloride 96(L) 97 - 110 mmol/L [facility] CO2 28 22 - 32 mmol/L [facility] Anion gap 7 2 - 15 mmol/L [facility] BUN 24 8 - 25 mg/dL [facility] Creatinine 0.98 0.60 - 1.10 mg/dL [facility] Glucose 105 70 - 199 mg/dL [facility] Comment: Interpretive Data Fasting glucose >/= 126 [...] 2017. Calcium 8.5 8.5 - 10.3 mg/dL [facility] Blood specimen (specimen) 10/25/2019 4:19 AM OTR DRIVER 10/25/2019 4:31 AM OTR DRIVER us Nanci Giron MD LAB BLOOD ORDERABLES Tiffany pacheco Result [facility] Department [place] [address] * (ABNORMAL) CBC with auto differential (10/25/2019 4:19 AM OTR DRIVER) WBC 6.9 3.8 - 9.9 K/cumm [facility] Hgb 8.2(L) 11.9 - 15.5 g/dL [facility] Hct 24.3(L) 35.6 - 45.5 % [facility] Plt 183 150 - 400 K/cumm [facility] MPV 9.6 9.1 - 12.3 fL [facility] RBC 2.68(L) 3.90 - 5.20 M/cumm [facility] MCV 90.7 81.3 - 96.4 fL [facility] MCH 30.6 27.1 - 33.3 pg [facility] MCHC 33.7 32.3 - 35.7 g/dL [facility] RDW CV 14.2 11.1 - 14.9 % [facility] RDW SD 46.3 35.7 - 48.1 fL [facility] NRBC abs 0.00 0.00 - 0.01 K/cumm [facility] Blood specimen (specimen) 10/25/2019 4:19 AM OTR DRIVER 10/25/2019 4:31 AM OTR DRIVER us Nanci Giron MD LAB BLOOD ORDERABLES Tiffany l Result Performing Organization Address City/[facility] Co de Phone Number [facility] [place] [address] * Phosphorus (10/25/2019 4:19 AM OTR DRIVER) [facility] Phosphorus, pl 2.9 2.3 - 4.5 mg/dL [facility] Blood specimen (specimen) 10/25/2019 4:19 AM OTR DRIVER 10/25/2019 4:31 AM OTR DRIVER us Rashmi Moura NP LAB BLOOD ORDERABLES Fi nal Result Performing Organization Address [facility] Co de Phone Number [facility] Department [place] [address] * (ABNORMAL) Calcium, ionized (10/25/2019 4:19 AM OTR DRIVER) [facility] Calcium, Ionized 4.44(L) 4.50 - 5.10 mg/dL [facility] Blood specimen (specimen) 10/25/2019 4:19 AM OTR DRIVER 10/25/2019 4:28 AM OTR DRIVER Rashmi Moura [employer] LAB BLOOD ORDERABLES Fi nal Result Performing Organization Address City/[facility] Co de Phone Number [facility] [place] [address] * POCT glucose (10/24/2019 11:08 PM OTR DRIVER) [facility] Glucose, POC 134 70 - 199 mg/dL [facility] Blood specimen (specimen) 10/24/2019 11:08 PM OTR DRIVER 10/24/2019 11:08 PM OTR DRIVER us Nanci Giron MD LAB POCT ORDERABLES - DEV ICE Final Result [facility] [place] [address] * XR Chest 1 View (10/24/2019 9:52 PM OTR DRIVER) Anatomical Region Laterality Modality Body, Chest N/A Computed Radiogr aphy 10/25/2019 8:59 AM OTR DRIVER Impressions 10/25/2019 10:08 AM OTR DRIVER Comparison to prior dated 10/23/2019. Median sternotomy wires are intact and unchanged in alignment. Interval removal of right thoracostomy tubes. Similar appearance of right midlung and left basilar linear atelectasis. ??No new focal consolidation. ??No pleural effusion, pulmonary edema, or pneumothorax. ??Cardiomediastinal silhouette is unchanged. Dictated by: Mati Loznao M.D. The radiology attending physician has personally reviewed this study, and had reviewed and/or edited this written report and agrees with it. Electronically signed by: Austen Ghosh M.D. Narrative 10/25/2019 10:08 AM OTR DRIVER EXAMINATION: 1 view chest radiograph Procedure Note [...] * ECG 12 lead (10/24/2019 8:21 PM OTR DRIVER) [facility] Ventricular Rate EKG/Min 84 BPM [facility] Atrial Rate 84 BPM [facility] [place]-Interval (MSEC) 156 ms [facility] QRS-Interval (MSEC) 104 ms [facility] QT-Interval (MSEC) 372 ms [facility] QTc 439 ms [facility] P [place] 56 degrees [facility] R [place] 14 degrees [facility] T [place] 119 degrees [facility] Diagnosis Sinus rhythm with occasional Premature ventricular complexes Left ventricular hypertrophy with repolarization abnormality Abnormal ECG When compared with ECG of 22-OCT-2019 02:02, Premature ventricular complexes are now Present ST elevation now present in Inferior leads ST less depressed in Lateral leads T wave inversion now evident in Lateral leads Confirmed by PAT CORRIGAN M.D ([id number]) on 10/25/2019 3:10:01 PM [facility] 10/24/2019 8:21 PM OTR DRIVER 10/25/2019 3:10 PM OTR DRIVER Nanci Giron MD ECG ORDERABLES Final Res ult [facility] * POCT glucose (10/24/2019 8:11 PM OTR DRIVER) [facility] Glucose, POC 141 70 - 199 mg/dL [facility] Blood specimen (specimen) 10/24/2019 8:11 PM OTR DRIVER 10/24/2019 8:11 PM OTR DRIVER Nanci Giron MD LAB POCT ORDERABLES - DEV ICE Final Result [facility] Department [place] [address] * Magnesium (10/24/2019 5:29 PM OTR DRIVER) [facility] Magnesium 2.2 1.4 - 2.5 mg/dL [facility] Blood specimen (specimen) 10/24/2019 5:29 PM OTR DRIVER 10/24/2019 5:41 PM OTR DRIVER Suzi Haq MD LAB BLOOD ORDERABLE S Final Result Performing Organization Address City/[facility]/ZIP Co de Phone Number [facility] Department [place] [address] * (ABNORMAL) Basic metabolic panel (10/24/2019 5:29 PM OTR DRIVER) [facility] Sodium 129(L) 135 - 145 mmol/L [facility] Potassium, pl 4.0 3.3 - 4.9 mmol/L [facility] Chloride 94(L) 97 - 110 mmol/L [facility] CO2 28 22 - 32 mmol/L [facility] Anion gap 7 2 - 15 mmol/L [facility] BUN 27(H) 8 - 25 mg/dL [facility] Creatinine 1.09 0.60 - 1.10 mg/dL [facility] Glucose 128 70 - 199 mg/dL [facility] Comment: Interpretive Data Fasting glucose >/= 126 [...] 2017. Calcium 8.7 8.5 - 10.3 mg/dL [facility] Blood specimen (specimen) 10/24/2019 5:29 PM OTR DRIVER 10/24/2019 5:41 PM OTR DRIVER Suzi Haq MD LAB BLOOD ORDERABLE S Final Result Performing Organization Address City/[facility]/ZIP Co de Phone Number [facility] Department [place] [address] * POCT glucose (10/24/2019 4:28 PM OTR DRIVER) Glucose, POC 138 70 - 199 mg/dL [facility] Blood specimen (specimen) 10/24/2019 4:28 PM OTR DRIVER 10/24/2019 4:28 PM OTR DRIVER us Nanci Giron MD LAB POCT ORDERABLES - DEV ICE Final Result [facility] [place] [address] * Critical Care (10/24/2019 12:48 PM OTR DRIVER) Narrative Michael Marcelo MD - 10/24/2019 12:48 PM OTR DRIVER Michael Marcelo MD ? 10/24/2019 12:49 PM [...] plan with the ICU team and other medical/eyewear consultant staff, making frequent assessments and decisions [...] Result * POCT glucose (10/24/2019 12:22 PM OTR DRIVER) Glucose, POC 147 70 - 199 mg/dL [facility] Blood specimen (specimen) 10/24/2019 12:22 PM OTR DRIVER 10/24/2019 12:22 PM OTR DRIVER Result [facility] Nanci Giron MD LAB POCT ORDERABLES - DEV ICE Final Result Performing Organization Address [facility] Co de Phone Number [facility] Department [place] [address] * POCT glucose (10/24/2019 7:35 AM OTR DRIVER) Glucose, POC 116 70 - 199 mg/dL [facility] Blood specimen (specimen) 10/24/2019 7:35 AM OTR DRIVER 10/24/2019 7:35 AM OTR DRIVER Result [facility] Nanci Giron MD LAB POCT ORDERABLES - DEV ICE Final Result Performing Organization Address City/[facility]/ZIP Co de Phone Number [facility] Department [place] [address] * (ABNORMAL) Differential, auto (10/24/2019 1:35 AM OTR DRIVER) Neutrophil abs 7.9(H) 1.7 - 6.5 K/cumm [facility] Imm gran abs 0.1 0.0 - 0.1 K/cumm [facility] Lymphocyte abs 1.2 0.8 - 3.3 K/cumm [facility] Monocyte abs 0.8 0.2 - 0.8 K/cumm [facility] Eosinophil abs 0.0 0.0 - 0.5 K/cumm [facility] Basophil abs 0.0 0.0 - 0.1 K/cumm [facility] Neutrophil pct 79.1 % [facility] Comment: Interpretive Data Percent cell count reference ranges are not reported, since discordance with absolute values may lead to misinterpretation of CBC data. Current Interpretive Data was last revised on 2017. Imm gran pct 0.9 % [facility] Comment: Interpretive Data Percent cell count reference ranges are not reported, since discordance with absolute values may lead to misinterpretation of CBC data. Current Interpretive Data was last revised on 2017. Lymphocyte pct 11.8 % [facility] Comment: Interpretive Data Percent cell count reference ranges are not reported, since discordance with absolute values may lead to misinterpretation of CBC data. Current Interpretive Data was last revised on 2017. Monocyte pct 7.7 % [facility] Comment: Interpretive Data Percent cell count reference ranges are not reported, since discordance with absolute values may lead to misinterpretation of CBC data. Current Interpretive Data was last revised on 2017. Eosinophil pct 0.4 % [facility] Comment: Interpretive Data Percent cell count reference ranges are not reported, since discordance with absolute values may lead to misinterpretation of CBC data. Current Interpretive Data was last revised on 2017. Basophil pct 0.1 % [facility] Comment: Interpretive Data Percent cell count reference ranges are not reported, since discordance with absolute values may lead to misinterpretation of CBC data. Current Interpretive Data was last revised on 2017. Blood specimen (specimen) 10/24/2019 1:35 AM OTR DRIVER 10/24/2019 1:59 AM OTR DRIVER us Nanci Giron MD LAB BLOOD ORDERABLES Tiffany pacheco Result [facility] Department [place] [address] * (ABNORMAL) Phosphorus (10/24/2019 1:35 AM OTR DRIVER) Phosphorus, pl 2.2(L) 2.3 - 4.5 mg/dL [facility] Blood specimen (specimen) 10/24/2019 1:35 AM OTR DRIVER 10/24/2019 1:59 AM OTR DRIVER Nanci Giron MD LAB BLOOD ORDERABLES Tiffany l Result Performing Organization Address [facility] Co de Phone Number [facility] [place] [address] * Magnesium (10/24/2019 1:35 AM OTR DRIVER) [facility] Magnesium 2.0 1.4 - 2.5 mg/dL [facility] Blood specimen (specimen) 10/24/2019 1:35 AM OTR DRIVER 10/24/2019 1:59 AM OTR DRIVER Nanci Giron MD LAB BLOOD ORDERABLES Tiffany l Result Performing Organization Address [facility] de Phone Number [facility] [place] [address] * (ABNORMAL) Basic metabolic panel (10/24/2019 1:35 AM OTR DRIVER) [facility] Sodium 131(L) 135 - 145 mmol/L [facility] Potassium, pl 3.5 3.3 - 4.9 mmol/L [facility] Chloride 99 97 - 110 mmol/L [facility] CO2 26 22 - 32 mmol/L [facility] Anion gap 6 2 - 15 mmol/L [facility] BUN 22 8 - 25 mg/dL [facility] Creatinine 1.01 0.60 - 1.10 mg/dL [facility] Glucose 125 70 - 199 mg/dL [facility] Comment: Interpretive Data Fasting glucose >/= 126 [...] 2017. Calcium 8.2(L) 8.5 - 10.3 mg/dL [facility] Blood specimen (specimen) 10/24/2019 1:35 AM OTR DRIVER 10/24/2019 1:59 AM OTR DRIVER Nanci Giron MD LAB BLOOD ORDERABLES Tiffany l Result Performing Organization Address [facility] Co de Phone Number [facility] Department [place] [address] * (ABNORMAL) CBC with auto differential (10/24/2019 1:35 AM OTR DRIVER) WBC 10.0(H) 3.8 - 9.9 K/cumm [facility] Hgb 8.0(L) 11.9 - 15.5 g/dL [facility] Hct 23.0(L) 35.6 - 45.5 % [facility] Plt 151 150 - 400 K/cumm [facility] MPV 9.5 9.1 - 12.3 fL [facility] RBC 2.50(L) 3.90 - 5.20 M/cumm [facility] MCV 92.0 81.3 - 96.4 fL [facility] MCH 32.0 27.1 - 33.3 pg [facility] MCHC 34.8 32.3 - 35.7 g/dL [facility] RDW CV 14.0 11.1 - 14.9 % [facility] RDW SD 47.0 35.7 - 48.1 fL [facility] NRBC abs 0.00 0.00 - 0.01 K/cumm [facility] Blood specimen (specimen) 10/24/2019 1:35 AM OTR DRIVER 10/24/2019 1:59 AM OTR DRIVER Nanci Giron MD LAB BLOOD ORDERABLES Tiffany l Result Performing Organization Address City/[facility]/ZIP Co de Phone Number [facility] [place] [address] * Lidocaine level (10/24/2019 1:35 AM OTR DRIVER) Lidocaine (Xylocaine) 3.6 1.5 - 5.0 mcg/mL [facility] Blood specimen (specimen) 10/24/2019 1:35 AM OTR DRIVER 10/24/2019 1:59 AM OTR DRIVER Nanci Giron MD LAB BLOOD ORDERABLES Tiffany l Result Performing Organization Address [facility] Co de Phone Number [facility] [place] [address] * POCT glucose (10/23/2019 11:43 PM OTR DRIVER) Glucose, POC 121 70 - 199 mg/dL [facility] Blood specimen (specimen) 10/23/2019 11:43 PM OTR DRIVER 10/23/2019 11:43 PM OTR DRIVER Nanci Giron MD LAB POCT ORDERABLES - DEV ICE Final Result Performing Organization Address [facility] Co de Phone Number [facility] [place] [address] * POCT glucose (10/23/2019 9:36 PM OTR DRIVER) Glucose, POC 119 70 - 199 mg/dL [facility] Blood specimen (specimen) 10/23/2019 9:36 PM OTR DRIVER 10/23/2019 9:36 PM OTR DRIVER Nanci Giron MD LAB POCT ORDERABLES - DEV ICE Final Result Performing Organization Address [facility] Co de Phone Number [facility] [place] [address] * XR Chest 1 View (10/23/2019 8:56 PM OTR DRIVER) Anatomical Region Laterality Modality Body, Chest N/A Computed Radiogr aphy 10/24/2019 8:57 AM OTR DRIVER Impressions 10/24/2019 10:54 AM OTR DRIVER Comparison is made with chest radiograph from [...] Raf Mcneill M.D. Narrative 10/24/2019 10:54 AM OTR DRIVER EXAMINATION: 1 view chest radiograph Procedure Note [...] it. Electronically signed by: Raf Mcneill M.D. us Nanci Giron MD IMG XR PROCEDURES Final R esult * POCT glucose (10/23/2019 3:28 PM OTR DRIVER) Glucose, POC 191 70 - 199 mg/dL [facility] Blood specimen (specimen) 10/23/2019 3:28 PM OTR DRIVER 10/23/2019 3:28 PM OTR DRIVER us Nanci Giron MD LAB POCT ORDERABLES - DEV ICE Final Result Performing Organization Address City/[facility] Co de Phone Number [facility] Department [place] [address] * POCT glucose (10/23/2019 12:10 PM OTR DRIVER) Glucose, POC 124 70 - 199 mg/dL [facility] Blood specimen (specimen) 10/23/2019 12:10 PM OTR DRIVER 10/23/2019 12:10 PM OTR DRIVER us Nanci Giron MD LAB POCT ORDERABLES - DEV ICE Final Result Performing Organization Address [facility] Co de Phone Number [facility] Department [place] [address] * Critical Care (10/23/2019 11:12 AM OTR DRIVER) Narrative Michael Marcelo MD - 10/23/2019 11:12 AM OTR DRIVER Michael Marcelo MD ? 10/23/2019 11:14 AM [...] plan with the ICU team and other medical/eyewear consultant staff, making frequent assessments and decisions [...] Result * POCT glucose (10/23/2019 7:51 AM OTR DRIVER) Glucose, POC 159 70 - 199 mg/dL [facility] Blood specimen (specimen) 10/23/2019 7:51 AM OTR DRIVER 10/23/2019 7:51 AM OTR DRIVER Nanci Giron MD LAB POCT ORDERABLES - DEV ICE Final Result Performing Organization Address City/[facility]/ZIP Co de Phone Number [facility] Department [place] [address] * Type and screen (10/22/2019 11:59 PM OTR DRIVER) Mara, indirect Negative [facility] ABO Rh O Positive [facility] Blood specimen (specimen) 10/22/2019 11:59 PM OTR DRIVER 10/23/2019 12:19 AM OTR DRIVER Narrative [facility] - 10/23/2019 1:09 AM OTR DRIVER Has the patient had Daratumumab (Darzalex) in the past 6 months?->Unknown Nanci Giron MD LAB BLOOD BANK TEST ORDER EDD Final Result Performing Organization Address City/[facility]/ZIP Co de Phone Number [facility] [place] [address] * POCT glucose (10/22/2019 11:53 PM OTR DRIVER) Glucose, POC 159 70 - 199 mg/dL [facility] Blood specimen (specimen) 10/22/2019 11:53 PM OTR DRIVER 10/22/2019 11:53 PM OTR DRIVER Nanci Giron MD LAB POCT ORDERABLES - DEV ICE Final Result Performing Organization Address [facility] Co de Phone Number [facility] [place] [address] * Phosphorus (10/22/2019 11:50 PM OTR DRIVER) [facility] Phosphorus, pl 2.5 2.3 - 4.5 mg/dL [facility] Blood specimen (specimen) 10/22/2019 11:50 PM OTR DRIVER 10/23/2019 12:09 AM OTR DRIVER Nanci Giron MD LAB BLOOD ORDERABLES Tiffany l Result Performing Organization Address [facility] de Phone Number [facility] [place] [address] * Magnesium (10/22/2019 11:50 PM OTR DRIVER) [facility] Magnesium 2.1 1.4 - 2.5 mg/dL [facility] Blood specimen (specimen) 10/22/2019 11:50 PM OTR DRIVER 10/23/2019 12:09 AM OTR DRIVER Nanci Giron MD LAB BLOOD ORDERABLES Tiffany l Result Performing Organization Address [facility] de Phone Number [facility] [place] [address] * (ABNORMAL) Basic metabolic panel (10/22/2019 11:50 PM OTR DRIVER) [facility] Sodium 133(L) 135 - 145 mmol/L [facility] Potassium, pl 4.2 3.3 - 4.9 mmol/L [facility] Chloride 104 97 - 110 mmol/L [facility] CO2 22 22 - 32 mmol/L [facility] Anion gap 7 2 - 15 mmol/L [facility] BUN 23 8 - 25 mg/dL [facility] Creatinine 1.05 0.60 - 1.10 mg/dL [facility] Glucose 177 70 - 199 mg/dL [facility] Comment: Interpretive Data Fasting glucose >/= 126 [...] 2017. Calcium 8.6 8.5 - 10.3 mg/dL [facility] Blood specimen (specimen) 10/22/2019 11:50 PM OTR DRIVER 10/23/2019 12:09 AM OTR DRIVER us Nanci Giron MD LAB BLOOD ORDERABLES Tiffany pacheco Result [facility] [place] [address] * (ABNORMAL) CBC without differential (10/22/2019 11:50 PM OTR DRIVER) WBC 15.8(H) 3.8 - 9.9 K/cumm [facility] Hgb 9.2(L) 11.9 - 15.5 g/dL [facility] Hct 26.9(L) 35.6 - 45.5 % [facility] Plt 169 150 - 400 K/cumm [facility] MPV 9.7 9.1 - 12.3 fL [facility] RBC 2.94(L) 3.90 - 5.20 M/cumm [facility] MCV 91.5 81.3 - 96.4 fL [facility] MCH 31.3 27.1 - 33.3 pg [facility] MCHC 34.2 32.3 - 35.7 g/dL [facility] RDW CV 14.6 11.1 - 14.9 % [facility] RDW SD 48.4(H) 35.7 - 48.1 fL [facility] NRBC abs 0.00 0.00 - 0.01 K/cumm [facility] Blood specimen (specimen) 10/22/2019 11:50 PM OTR DRIVER 10/23/2019 12:09 AM OTR DRIVER Nanci Giron MD LAB BLOOD ORDERABLES Tiffany l Result Performing Organization Address [facility] Co de Phone Number [facility] [place] [address] * Lidocaine level (10/22/2019 11:50 PM OTR DRIVER) Pathologist [facility] Lidocaine (Xylocaine) 3.8 1.5 - 5.0 mcg/mL [facility] Blood specimen (specimen) 10/22/2019 11:50 PM OTR DRIVER 10/23/2019 12:09 AM OTR DRIVER Narrative [facility] - 10/23/2019 4:44 AM OTR DRIVER Draw 24 hours after infusion started. Nanci Giron MD LAB BLOOD ORDERABLES Tiffany l Result Performing Organization Address [facility] Co de Phone Number [facility] [place] [address] * POCT glucose (10/22/2019 8:20 PM OTR DRIVER) Glucose, POC 159 70 - 199 mg/dL [facility] Blood specimen (specimen) 10/22/2019 8:20 PM OTR DRIVER 10/22/2019 8:20 PM OTR DRIVER Nanci Giron MD LAB POCT ORDERABLES - DEV ICE Final Result Performing Organization Address [facility] Co de Phone Number [facility] [place] [address] * XR Chest 1 View (10/22/2019 4:15 PM OTR DRIVER) Anatomical Region Laterality Modality Body, Chest N/A Computed Radiogr aphy 10/23/2019 7:17 AM OTR DRIVER Impressions 10/23/2019 7:17 AM OTR DRIVER Comparison is made to the prior from 10/21/2019. The patient is status post a median sternotomy, mediastinal wires are aligned. The stomach and a right chest tube are again seen. Heart size is enlarged, but unchanged. There is bibasilar atelectasis, slightly improved from the prior. Small left pleural effusion unchanged. No pneumothorax. Electronically signed by: Mati Dale M.D. Narrative 10/23/2019 7:17 AM OTR DRIVER EXAMINATION: 1 view chest radiograph Procedure Note [...] Result * POCT glucose (10/22/2019 4:10 PM OTR DRIVER) Glucose, POC 154 70 - 199 mg/dL [facility] Blood specimen (specimen) 10/22/2019 4:10 PM OTR DRIVER 10/22/2019 4:10 PM OTR DRIVER us Nanci Giron MD LAB POCT ORDERABLES - DEV ICE Final Result [facility] Department [place] [address] * Critical Care (10/22/2019 12:06 PM OTR DRIVER) Narrative Michael Marcelo MD - 10/22/2019 12:06 PM OTR DRIVER Michael Marcelo MD ? 10/22/2019 12:06 PM [...] plan with the ICU team and other medical/eyewear consultant staff, making frequent assessments and decisions [...] Result * POCT glucose (10/22/2019 11:48 AM OTR DRIVER) [facility] Signature Glucose, POC 171 70 - 199 mg/dL [facility] Blood specimen (specimen) 10/22/2019 11:48 AM OTR DRIVER 10/22/2019 11:48 AM OTR DRIVER us Nanci Giron MD LAB POCT ORDERABLES - DEV ICE Final Result [facility] Department [place] [address] * (ABNORMAL) CBC without differential (10/22/2019 11:37 AM OTR DRIVER) Pathologist [facility] WBC 15.1(H) 3.8 - 9.9 K/cumm [facility] Hgb 10.1(L) 11.9 - 15.5 g/dL [facility] Hct 29.8(L) 35.6 - 45.5 % [facility] Plt 207 150 - 400 K/cumm [facility] MPV 9.7 9.1 - 12.3 fL [facility] RBC 3.25(L) 3.90 - 5.20 M/cumm [facility] MCV 91.7 81.3 - 96.4 fL [facility] MCH 31.1 27.1 - 33.3 pg [facility] MCHC 33.9 32.3 - 35.7 g/dL [facility] RDW CV 14.2 11.1 - 14.9 % [facility] RDW SD 47.8 35.7 - 48.1 fL [facility] NRBC abs 0.00 0.00 - 0.01 K/cumm [facility] Blood specimen (specimen) 10/22/2019 11:37 AM OTR DRIVER 10/22/2019 11:48 AM OTR DRIVER us Nanci Giron MD LAB BLOOD ORDERABLES Tiffany l Result Performing Organization Address [facility] Co de Phone Number [facility] [place] [address] * Lidocaine level (10/22/2019 8:32 AM OTR DRIVER) Pathologist [facility] Lidocaine (Xylocaine) 3.2 1.5 - 5.0 mcg/mL [facility] Blood specimen (specimen) 10/22/2019 8:32 AM OTR DRIVER 10/22/2019 8:37 AM OTR DRIVER us Mario House MD LAB BLOOD ORDERABLES F inal Result Performing Organization Address City/[facility] Co de Phone Number [facility] Department [place] [address] * POCT glucose (10/22/2019 7:47 AM OTR DRIVER) Glucose, POC 186 70 - 199 mg/dL [facility] Blood specimen (specimen) 10/22/2019 7:47 AM OTR DRIVER 10/22/2019 7:47 AM OTR DRIVER Nanci Giron MD LAB POCT ORDERABLES - DEV ICE Final Result Performing Organization Address City/[facility] Co de Phone Number [facility] Department [place] [address] * POCT glucose (10/22/2019 3:41 AM OTR DRIVER) Glucose, POC 116 70 - 199 mg/dL [facility] Blood specimen (specimen) 10/22/2019 3:41 AM OTR DRIVER 10/22/2019 3:41 AM OTR DRIVER Nanci Giron MD LAB POCT ORDERABLES - DEV ICE Final Result Performing Organization Address City/[facility] Co de Phone Number [facility] Department [place] [address] * ECG 12 lead (10/22/2019 2:02 AM OTR DRIVER) [facility] Ventricular Rate EKG/Min 79 BPM [facility] Atrial Rate 79 BPM [facility] [place]-Interval (MSEC) 162 ms [facility] QRS-Interval (MSEC) 98 ms [facility] QT-Interval (MSEC) 400 ms [facility] QTc 458 ms [facility] P [place] 47 degrees [facility] R [place] 3 degrees [facility] T [place] 9 degrees [facility] Diagnosis Normal sinus rhythm Moderate voltage criteria for LVH, may be normal variant Nonspecific ST abnormality Abnormal ECG When compared with ECG of 18-OCT-2019 00:33, No significant change was found Confirmed by PAT CORRIGAN M.D ([id number]) on 10/25/2019 2:04:04 PM [facility] 10/22/2019 2:02 AM OTR DRIVER 10/25/2019 2:04 PM OTR DRIVER us Nanci Giron MD ECG ORDERABLES Final Res ult [facility] * (ABNORMAL) Basic metabolic panel (10/22/2019 1:24 AM OTR DRIVER) Sodium 139 135 - 145 mmol/L [facility] Potassium, pl 4.0 3.3 - 4.9 mmol/L [facility] Chloride 110 97 - 110 mmol/L [facility] CO2 21(L) 22 - 32 mmol/L [facility] Anion gap 8 2 - 15 mmol/L [facility] BUN 19 8 - 25 mg/dL [facility] Creatinine 0.79 0.60 - 1.10 mg/dL [facility] Glucose 156 70 - 199 mg/dL [facility] Comment: Interpretive Data Fasting glucose >/= 126 [...] 2017. Calcium 8.8 8.5 - 10.3 mg/dL [facility] Blood specimen (specimen) 10/22/2019 1:24 AM OTR DRIVER 10/22/2019 1:29 AM OTR DRIVER us Nanci Giron MD LAB BLOOD ORDERABLES Tiffany l Result [facility] Department [place] [address] * Phosphorus (10/22/2019 1:24 AM OTR DRIVER) Phosphorus, pl 3.4 2.3 - 4.5 mg/dL [facility] Blood specimen (specimen) 10/22/2019 1:24 AM OTR DRIVER 10/22/2019 1:29 AM OTR DRIVER Nanci Giron MD LAB BLOOD ORDERABLES Tiffany l Result Performing Organization Address City/[facility]/ZIP Co de Phone Number [facility] Department [place] [address] * Magnesium (10/22/2019 1:24 AM OTR DRIVER) [facility] Magnesium 1.9 1.4 - 2.5 mg/dL [facility] Blood specimen (specimen) 10/22/2019 1:24 AM OTR DRIVER 10/22/2019 1:29 AM OTR DRIVER Nanci Giron MD LAB BLOOD ORDERABLES Tiffany l Result Performing Organization Address [facility] de Phone Number [facility] [place] [address] * (ABNORMAL) CBC without differential (10/22/2019 1:24 AM OTR DRIVER) [facility] WBC 10.3(H) 3.8 - 9.9 K/cumm [facility] Hgb 10.3(L) 11.9 - 15.5 g/dL [facility] Hct 30.2(L) 35.6 - 45.5 % [facility] Plt 154 150 - 400 K/cumm [facility] MPV 9.4 9.1 - 12.3 fL [facility] RBC 3.33(L) 3.90 - 5.20 M/cumm [facility] MCV 90.7 81.3 - 96.4 fL [facility] MCH 30.9 27.1 - 33.3 pg [facility] MCHC 34.1 32.3 - 35.7 g/dL [facility] RDW CV 13.9 11.1 - 14.9 % [facility] RDW SD 45.5 35.7 - 48.1 fL [facility] NRBC abs 0.00 0.00 - 0.01 K/cumm [facility] Blood specimen (specimen) 10/22/2019 1:24 AM OTR DRIVER 10/22/2019 1:40 AM OTR DRIVER Nanci Giron MD LAB BLOOD ORDERABLES Tiffany l Result Performing Organization Address City/[facility] Co de Phone Number [facility] Department [place] [address] * POCT glucose (10/22/2019 12:10 AM OTR DRIVER) [facility] Glucose, POC 139 70 - 199 mg/dL [facility] Blood specimen (specimen) 10/22/2019 12:10 AM OTR DRIVER 10/22/2019 12:10 AM OTR DRIVER Nanci Giron MD LAB POCT ORDERABLES - DEV ICE Final Result Performing Organization Address [facility] de Phone Number [facility] [place] [address] * (ABNORMAL) CBC without differential (10/21/2019 10:20 PM OTR DRIVER) [facility] WBC 10.4(H) 3.8 - 9.9 K/cumm [facility] Hgb 10.3(L) 11.9 - 15.5 g/dL [facility] Comment:Hemoglobin delta due to apparent blood transfusion. Hct 30.7(L) 35.6 - 45.5 % [facility] Plt 144(L) 150 - 400 K/cumm [facility] MPV 9.5 9.1 - 12.3 fL [facility] RBC 3.32(L) 3.90 - 5.20 M/cumm [facility] MCV 92.5 81.3 - 96.4 fL [facility] MCH 31.0 27.1 - 33.3 pg [facility] MCHC 33.6 32.3 - 35.7 g/dL [facility] RDW CV 13.7 11.1 - 14.9 % [facility] RDW SD 46.4 35.7 - 48.1 fL [facility] NRBC abs 0.00 0.00 - 0.01 K/cumm [facility] Blood specimen (specimen) 10/21/2019 10:20 PM OTR DRIVER 10/21/2019 10:33 PM OTR DRIVER Narrative [facility] - 10/21/2019 10:47 PM OTR DRIVER 1 hour after transfusion of red blood cells is complete Nanci Giron MD LAB BLOOD ORDERABLES Tiffany l Result Performing Organization Address City/[facility] Co de Phone Number [facility] Department [place] [address] * Transfuse RBC (10/21/2019 9:04 PM OTR DRIVER) Blood specimen (specimen) Nanci Giron MD BLOOD TRANSFUSION ORDERAB LES Final Result Performing Organization Address City/[facility]/ZIP Co de Phone Number [facility] Department [place] [address] * Transfuse RBC: 1 Units (10/21/2019 9:04 PM OTR DRIVER) Blood specimen (specimen) Nanci Giron MD BLOOD TRANSFUSION ORDERAB LES Final Result * XR Chest 1 View (10/21/2019 8:38 PM OTR DRIVER) Anatomical Region Laterality Modality Body, Chest N/A Computed Radiogr aphy 10/22/2019 8:07 AM OTR DRIVER Impressions 10/22/2019 10:47 AM OTR DRIVER First exam comparison is made with chest [...] Werner Calvillo M.D. Narrative 10/22/2019 10:47 AM OTR DRIVER Examination: 2 portable chests Chest one view [...] esult * POCT glucose (10/21/2019 8:24 PM OTR DRIVER) [facility] Signature Glucose, POC 158 70 - 199 mg/dL [facility] Blood specimen (specimen) 10/21/2019 8:24 PM OTR DRIVER 10/21/2019 8:24 PM OTR DRIVER Nanci Giron MD LAB POCT ORDERABLES - DEV ICE Final Result [facility] Department [place] [address] * MRSA Only (Staphylococcus aureus) Culture Nasal (10/21/2019 6:50 PM OTR DRIVER) Report Final Report: Negative [facility] Nasal 10/21/2019 6:50 PM OTR DRIVER 10/21/2019 7:17 PM OTR DRIVER Narrative [facility] - 10/22/2019 9:58 PM OTR DRIVER Testing performed by [facility] ([phone]). us Mario House MD LAB MICROBIOLOGY - GEN ERAL ORDERABLES Final Result [facility] Department [place] [address] * Infection Prevention MRSA Only (Staphylococcus aureus) Culture Nasal (10/21/2019 6:50 PM OTR DRIVER) Report Final Report: Negative [facility] Nasal 10/21/2019 6:50 PM OTR DRIVER 10/21/2019 7:17 PM OTR DRIVER Narrative [facility] - 10/23/2019 7:21 AM OTR DRIVER Testing performed by [facility] ([phone]). us Nanci Giron MD LAB MICROBIOLOGY - GENERA L ORDERABLES Final Result [facility] Department [place] [address] * (ABNORMAL) Blood gas, arterial (10/21/2019 6:47 PM OTR DRIVER) pH, Art 7.34(L) 7.35 - 7.45 [facility] PCO2, Arterial 38 35 - 45 mmHg [facility] PO2, Arterial 161(H) 83 - 108 mmHg [facility] HCO3 Art (Calculated) 21 20 - 30 mmol/L [facility] BE, art -5 mmol/L [facility] Comment: Interpretive Data No Reference Range Established Current Interpretive Data was last revised on 2017 O2 Sat Art (Measured) 99(H) 90 - 95 % [facility] Blood specimen (specimen) 10/21/2019 6:47 PM OTR DRIVER 10/21/2019 6:50 PM OTR DRIVER Nanci Giron MD LAB BLOOD ORDERABLES Tiffany l Result Performing Organization Address [facility] Co de Phone Number [facility] [place] [address] * Potassium, whole blood (10/21/2019 6:47 PM OTR DRIVER) Pathologist [facility] Potassium, bld 4.3 3.3 - 4.9 mmol/L [facility] Blood specimen (specimen) 10/21/2019 6:47 PM OTR DRIVER 10/21/2019 6:50 PM OTR DRIVER Nanci Giron MD LAB BLOOD ORDERABLES Tiffany l Result Performing Organization Address [facility] de Phone Number [facility] Department [place] [address] * Prepare RBC: 1 Units (10/21/2019 6:34 PM OTR DRIVER) Pathologist [facility] Product code [id number] [facility] Unit Number [id number] [facility] Product Blood Type OPOS [facility] Dispense Status PRESUMED TRANSFUSED [facility] Blood specimen (specimen) 10/21/2019 6:34 PM OTR DRIVER 10/21/2019 6:34 PM OTR DRIVER Narrative [facility] - 10/22/2019 12:48 AM OTR DRIVER Are special requirements needed? (all products are leukoreduced)->No Date required:-20191021 LRRBC # of [id number] Reasons:-Active bleeding, Hgb <8 g/dL} Nanci Giron MD BLOOD BANK PRODUCT ORDERA BLES Final Result Performing Organization Address [facility] Co de Phone [facility] [place] [address] * Lactate, whole blood (10/21/2019 5:29 PM OTR DRIVER) Pathologist [facility] Lactate, bld 1.7 0.7 - 2.0 mmol/L [facility] Blood specimen (specimen) 10/21/2019 5:29 PM OTR DRIVER 10/21/2019 5:34 PM OTR DRIVER Nanci Giron MD LAB BLOOD ORDERABLES Tiffany l Result Performing Organization Address [facility] [place] [address] * aPTT (10/21/2019 5:29 PM OTR DRIVER) Pathologist [facility] aPTT 27 25 - 37 sec [facility] Comment: Interpretive data Heparin therapeutic range: 60-90 seconds Range based on correlation with therapeutic heparin activity range of 0.3-0.7 units/ml. Current interpretive data was last revised on 2019. Blood specimen (specimen) 10/21/2019 5:29 PM OTR DRIVER 10/21/2019 5:59 PM OTR DRIVER Nanci Giron MD LAB BLOOD ORDERABLES Tiffany l Result Performing Organization Address [facility] de Phone Number [facility] [place] [address] * (ABNORMAL) Protime-INR (10/21/2019 5:29 PM OTR DRIVER) Pathologist [facility] PT 15.6(H) 8.6 - 13.0 sec [facility] INR 1.4(H) 0.8 - 1.2 [facility] Comment: Interpretive data Oral anticoagulant therapeutic ranges: Venous thromboembolism prophylaxis or treatment: 2.0-3.0 CARDIOLOGY Standard range: 2.0-3.0 High-intensity range: 2.5-3.5 Refer to indication-specific guidelines for appropriate target ranges for prosthetic heart valve replacement. Current interpretive data was last revised on 2019. Blood specimen (specimen) 10/21/2019 5:29 PM OTR DRIVER 10/21/2019 5:59 PM OTR DRIVER Nanci Giron MD LAB BLOOD ORDERABLES Tiffany l Result Performing Organization Address [facility] Co de Phone Number [facility] [place] [address] * (ABNORMAL) CBC without differential (10/21/2019 5:29 PM OTR DRIVER) WBC 13.8(H) 3.8 - 9.9 K/cumm [facility] Hgb 7.1(L) 11.9 - 15.5 g/dL [facility] Comment:Hemoglobin delta due to surgical procedure. Hct 21.8(L) 35.6 - 45.5 % [facility] Plt 144(L) 150 - 400 K/cumm [facility] MPV 9.5 9.1 - 12.3 fL [facility] RBC 2.31(L) 3.90 - 5.20 M/cumm [facility] MCV 94.4 81.3 - 96.4 fL [facility] MCH 30.7 27.1 - 33.3 pg [facility] MCHC 32.6 32.3 - 35.7 g/dL [facility] RDW CV 13.8 11.1 - 14.9 % [facility] RDW SD 47.0 35.7 - 48.1 fL [facility] NRBC abs 0.00 0.00 - 0.01 K/cumm [facility] Blood specimen (specimen) 10/21/2019 5:29 PM OTR DRIVER 10/21/2019 5:36 PM OTR DRIVER Nanci Giron MD LAB BLOOD ORDERABLES Tiffany l Result Performing Organization Address [facility]/ZIP Co de Phone Number [facility] [place] [address] * (ABNORMAL) Blood gas, arterial (10/21/2019 5:29 PM OTR DRIVER) pH, Art 7.33(L) 7.35 - 7.45 [facility] PCO2, Arterial 38 35 - 45 mmHg [facility] PO2, Arterial 156(H) 83 - 108 mmHg [facility] HCO3 Art (Calculated) 20 20 - 30 mmol/L [facility] BE, art -6 mmol/L [facility] Comment: Interpretive Data No Reference Range Established Current Interpretive Data was last revised on 2017 O2 Sat Art (Measured) 99(H) 90 - 95 % [facility] Blood specimen (specimen) 10/21/2019 5:29 PM OTR DRIVER 10/21/2019 5:34 PM OTR DRIVER us Nanci Giron MD LAB BLOOD ORDERABLES Tiffany l Result [facility] Department [place] [address] * (ABNORMAL) Basic metabolic panel (10/21/2019 5:29 PM OTR DRIVER) Pathologist [facility] Sodium 139 135 - 145 mmol/L [facility] Potassium, pl 4.3 3.3 - 4.9 mmol/L [facility] Chloride 113(H) 97 - 110 mmol/L [facility] CO2 21(L) 22 - 32 mmol/L [facility] Anion gap 5 2 - 15 mmol/L [facility] BUN 13 8 - 25 mg/dL [facility] Creatinine 0.77 0.60 - 1.10 mg/dL [facility] Glucose 215(H) 70 - 199 mg/dL [facility] Comment: Interpretive Data Fasting glucose >/= 126 [...] 2017. Calcium 8.3(L) 8.5 - 10.3 mg/dL [facility] Blood specimen (specimen) 10/21/2019 5:29 PM OTR DRIVER 10/21/2019 5:36 PM OTR DRIVER us Nanci Giron MD LAB BLOOD ORDERABLES Tiffany pacheco Result [facility] Department [place] [address] * XR Chest 1 View (10/21/2019 5:27 PM OTR DRIVER) Anatomical Region Laterality Modality Body, Chest N/A Computed Radiogr aphy 10/22/2019 8:07 AM OTR DRIVER Impressions 10/22/2019 10:47 AM OTR DRIVER First exam comparison is made with chest [...] Werner Calvillo M.D. Narrative 10/22/2019 10:47 AM OTR DRIVER Examination: 2 portable chests Chest one view [...] * (ABNORMAL) POCT glucose (10/21/2019 5:07 PM OTR DRIVER) [facility] Glucose, POC 218(H) 70 - 199 mg/dL [facility] Blood specimen (specimen) 10/21/2019 5:07 PM OTR DRIVER 10/21/2019 5:07 PM OTR DRIVER us Nanci Giron MD LAB POCT ORDERABLES - DEV ICE Final Result [facility] Department [place] [address] * (ABNORMAL) POC Blood Gas and Chemistries, Arterial - (10/21/2019 3:51 PM OTR DRIVER) [facility] pH, Art 7.27(L) 7.35 - 7.45 [facility] pCO2, Art POC 43 35 - 45 mmHg [facility] pO2, Art POC 286(H) 83 - 108 [facility] Na, POC 136 135 - 145 mmol/L [facility] K POC 4.6 3.3 - 4.9 mmol/L [facility] Cl, POC 110 97 - 110 mmol/L [facility] Ionized Ca, POC 5.92(H) 4.50 - 5.10 mg/dL [facility] Glucose, POC 234(H) 70 - 199 mg/dL [facility] Lactate, POC 1.3 0.7 - 2.2 mmol/L [facility] SO2 (angel) arterial 99(H) 90 - 95 % [facility] Base excess, POC -7.0 mmol/L [facility] HCO3, Art POC 20 20 - 30 mmol/L [facility] Hct, POC 32.0(L) 36.3 - 45.3 % [facility] O2 Sat, Art POC (Calc) 100 % [facility] Total Hb, POC 10.8(L) 11.9 - 15.5 g/dL [facility] Blood specimen (specimen) 10/21/2019 3:51 PM OTR DRIVER 10/21/2019 3:51 PM OTR DRIVER Nanci Giron MD LAB POCT ORDERABLES - DEV ICE Final Result Performing Organization Address [facility] de Phone Number [facility] Department [place] [address] * POCT Activated clotting time, low range (10/21/2019 3:43 PM OTR DRIVER) ACT 129 123 - 168 sec [facility] Blood specimen (specimen) 10/21/2019 3:43 PM OTR DRIVER 10/21/2019 3:43 PM OTR DRIVER Nanci Grion MD LAB POCT ORDERABLES - DEV ICE Final Result Performing Organization Address [facility] de Phone Number [facility] Department [place] [address] * (ABNORMAL) POCT Activated clotting time, low range (10/21/2019 3:06 PM OTR DRIVER) ACT 230(H) 123 - 168 sec [facility] Blood specimen (specimen) 10/21/2019 3:06 PM OTR DRIVER 10/21/2019 3:06 PM OTR DRIVER Nanci Giron MD LAB POCT ORDERABLES - DEV ICE Final Result Performing Organization Address [facility] Co de Phone Number [facility] [place] [address] * (ABNORMAL) POCT Activated clotting time, low range (10/21/2019 2:37 PM OTR DRIVER) [facility] ACT 266(H) 123 - 168 sec [facility] Blood specimen (specimen) 10/21/2019 2:37 PM OTR DRIVER 10/21/2019 2:37 PM OTR DRIVER us Nanci Giron MD LAB POCT ORDERABLES - DEV ICE Final Result Performing Organization Address [facility] de Phone Number [facility] [place] [address] * (ABNORMAL) POCT Activated clotting time, low range (10/21/2019 2:10 PM OTR DRIVER) [facility] ACT 276(H) 123 - 168 sec [facility] Blood specimen (specimen) 10/21/2019 2:10 PM OTR DRIVER 10/21/2019 2:10 PM OTR DRIVER us Nanci Giron MD LAB POCT ORDERABLES - DEV ICE Final Result Performing Organization Address [facility] de Phone Number [facility] [place] [address] * (ABNORMAL) POC Blood Gas and Chemistries, Arterial - (10/21/2019 2:06 PM OTR DRIVER) [facility] pH, Art 7.30(L) 7.35 - 7.45 [facility] pCO2, Art POC 43 35 - 45 mmHg [facility] pO2, Art POC 191(H) 83 - 108 mmHg [facility] Na, POC 138 135 - 145 mmol/L [facility] K POC 3.9 3.3 - 4.9 mmol/L [facility] Cl, POC 108 97 - 110 mmol/L [facility] Ionized Ca, POC 4.64 4.50 - 5.10 mg/dL [facility] Glucose, POC 162 70 - 199 mg/dL [facility] Lactate, POC 0.6(L) 0.7 - 2.2 mmol/L [facility] SO2 (angel) arterial 100(H) 90 - 95 % [facility] Base excess, POC -5.1 mmol/L [facility] HCO3, Art POC 21 20 - 30 mmol/L [facility] Hct, POC 33.0(L) 36.3 - 45.3 % [facility] O2 Sat, Art POC (Calc) 100 % [facility] Total Hb, POC 11.0(L) 11.9 - 15.5 g/dL [facility] Blood specimen (specimen) 10/21/2019 2:06 PM OTR DRIVER 10/21/2019 2:06 PM OTR DRIVER Nanci Giron MD LAB POCT ORDERABLES - DEV ICE Final Result Performing Organization Address City/[facility]/ZIP Co de Phone Number [facility] [place] [address] * (ABNORMAL) POCT Activated clotting time, low range (10/21/2019 1:34 PM OTR DRIVER) ACT 236(H) 123 - 168 sec [facility] Blood specimen (specimen) 10/21/2019 1:34 PM OTR DRIVER 10/21/2019 1:34 PM OTR DRIVER Nanci Giron MD LAB POCT ORDERABLES - DEV ICE Final Result [facility] [place] [address] * (ABNORMAL) POCT Activated clotting time, low range (10/21/2019 1:08 PM OTR DRIVER) ACT 207(H) 123 - 168 sec [facility] Blood specimen (specimen) 10/21/2019 1:08 PM OTR DRIVER 10/21/2019 1:08 PM OTR DRIVER Nanci Giron MD LAB POCT ORDERABLES - DEV ICE Final Result [facility] [place] [address] * (ABNORMAL) POCT Activated clotting time, low range (10/21/2019 12:19 PM OTR DRIVER) [facility] ACT 250(H) 123 - 168 sec [facility] Blood specimen (specimen) 10/21/2019 12:19 PM OTR DRIVER 10/21/2019 12:19 PM OTR DRIVER Nanci Giron MD LAB POCT ORDERABLES - DEV ICE Final Result Performing Organization Address [facility] de Phone Number [facility] [place] [address] * Differential, auto (10/20/2019 11:02 PM OTR DRIVER) [facility] Neutrophil abs 2.6 1.7 - 6.5 K/cumm [facility] Imm gran abs 0.0 0.0 - 0.1 K/cumm [facility] Lymphocyte abs 2.6 0.8 - 3.3 K/cumm [facility] Monocyte abs 0.5 0.2 - 0.8 K/cumm [facility] Eosinophil abs 0.1 0.0 - 0.5 K/cumm [facility] Basophil abs 0.0 0.0 - 0.1 K/cumm [facility] Neutrophil pct 43.6 % [facility] Comment: Interpretive Data Percent cell count reference ranges are not reported, since discordance with absolute values may lead to misinterpretation of CBC data. Current Interpretive Data was last revised on 2017. Imm gran pct 0.3 % [facility] Comment: Interpretive Data Percent cell count reference ranges are not reported, since discordance with absolute values may lead to misinterpretation of CBC data. Current Interpretive Data was last revised on 2017. Lymphocyte pct 44.7 % [facility] Comment: Interpretive Data Percent cell count reference ranges are not reported, since discordance with absolute values may lead to misinterpretation of CBC data. Current Interpretive Data was last revised on 2017. Monocyte pct 8.7 % [facility] Comment: Interpretive Data Percent cell count reference ranges are not reported, since discordance with absolute values may lead to misinterpretation of CBC data. Current Interpretive Data was last revised on 2017. Eosinophil pct 2.0 % [facility] Comment: Interpretive Data Percent cell count reference ranges are not reported, since discordance with absolute values may lead to misinterpretation of CBC data. Current Interpretive Data was last revised on 2017. Basophil pct 0.7 % [facility] Comment: Interpretive Data Percent cell count reference ranges are not reported, since discordance with absolute values may lead to misinterpretation of CBC data. Current Interpretive Data was last revised on 2017. Blood specimen (specimen) 10/20/2019 11:02 PM OTR DRIVER 10/21/2019 12:28 AM OTR DRIVER us Annemarie Lynne NP LAB BLOOD ORDERABLES F inal Result [facility] Department [place] [address] * CBC with auto differential (10/20/2019 11:02 PM OTR DRIVER) WBC 5.9 3.8 - 9.9 K/cumm [facility] Hgb 12.4 11.9 - 15.5 g/dL [facility] Hct 38.0 35.6 - 45.5 % [facility] Plt 231 150 - 400 K/cumm [facility] MPV 9.6 9.1 - 12.3 fL [facility] RBC 4.08 3.90 - 5.20 M/cumm [facility] MCV 93.1 81.3 - 96.4 fL [facility] MCH 30.4 27.1 - 33.3 pg [facility] MCHC 32.6 32.3 - 35.7 g/dL [facility] RDW CV 13.8 11.1 - 14.9 % [facility] RDW SD 46.7 35.7 - 48.1 fL [facility] NRBC abs 0.00 0.00 - 0.01 K/cumm [facility] Blood specimen (specimen) 10/20/2019 11:02 PM OTR DRIVER 10/21/2019 12:28 AM OTR DRIVER Annemarie Lynne NP LAB BLOOD ORDERABLES F inal Result [facility] Department [place] [address] * (ABNORMAL) Basic metabolic panel (10/20/2019 11:02 PM OTR DRIVER) Sodium 136 135 - 145 mmol/L [facility] Potassium, pl 4.2 3.3 - 4.9 mmol/L [facility] Chloride 103 97 - 110 mmol/L [facility] CO2 21(L) 22 - 32 mmol/L [facility] Anion gap 12 2 - 15 mmol/L [facility] BUN 15 8 - 25 mg/dL [facility] Creatinine 0.83 0.60 - 1.10 mg/dL [facility] Glucose 102 70 - 199 mg/dL [facility] Comment: Interpretive Data Fasting glucose >/= 126 [...] 2017. Calcium 9.6 8.5 - 10.3 mg/dL [facility] Blood specimen (specimen) 10/20/2019 11:02 PM OTR DRIVER 10/21/2019 12:22 AM OTR DRIVER us Annemarie Lynne NP LAB BLOOD ORDERABLES F inal Result Performing Organization Address City/[facility]/[place] [address] * Type and screen (10/20/2019 12:17 PM OTR DRIVER) Mraa, indirect Negative [facility] ABO Rh O Positive [facility] Blood specimen (specimen) 10/20/2019 12:17 PM OTR DRIVER 10/20/2019 12:53 PM OTR DRIVER Narrative [facility] - 10/20/2019 2:21 PM OTR DRIVER Has the patient had Daratumumab (Darzalex) in the past 6 months?->Unknown Annemarie Lynne NP LAB BLOOD BANK TEST OR DERABLES Final Result Performing Organization Address [facility] Co de Phone Number [facility] [place] [address] * Prepare RBC: 4 Units (10/20/2019 9:43 AM OTR DRIVER) Product code [id number] [facility] Unit Number [id number] 0-[id number] [facility] Product Blood Type OPOS [facility] Dispense Status RETURNED [facility] Product code [id number] [facility] Unit Number [id number] 2-E [facility] Product Blood Type OPOS [facility] Dispense Status RETURNED [facility] Product code [id number] [facility] Unit Number [id number] 0-G [facility] Product Blood Type OPOS [facility] Dispense Status RETURNED [facility] Product code [id number] [facility] Unit Number [id number] 2-K [facility] Product Blood Type OPOS [facility] Dispense Status RETURNED [facility] Blood specimen (specimen) 10/20/2019 9:43 AM OTR DRIVER 10/20/2019 9:43 AM OTR DRIVER Narrative [facility] - 10/21/2019 6:35 PM OTR DRIVER 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 (all products are leukoreduced)->No Date required:-[id number] [facility] # of [id number] Reasons:-Hold for procedure (specify procedure)} Annemarie Lynne NP BLOOD BANK PRODUCT ORD ERABLES Final Result [facility] Department [place] [address] * Differential, auto (10/20/2019 12:36 AM OTR DRIVER) Neutrophil abs 3.2 1.7 - 6.5 K/cumm [facility] Imm gran abs 0.0 0.0 - 0.1 K/cumm [facility] Lymphocyte abs 2.6 0.8 - 3.3 K/cumm [facility] Monocyte abs 0.6 0.2 - 0.8 K/cumm [facility] Eosinophil abs 0.1 0.0 - 0.5 K/cumm [facility] Basophil abs 0.0 0.0 - 0.1 K/cumm [facility] Neutrophil pct 48.3 % [facility] Comment: Interpretive Data Percent cell count reference ranges are not reported, since discordance with absolute values may lead to misinterpretation of CBC data. Current Interpretive Data was last revised on 2017. Imm gran pct 0.3 % [facility] Comment: Interpretive Data Percent cell count reference ranges are not reported, since discordance with absolute values may lead to misinterpretation of CBC data. Current Interpretive Data was last revised on 2017. Lymphocyte pct 39.5 % [facility] Comment: Interpretive Data Percent cell count reference ranges are not reported, since discordance with absolute values may lead to misinterpretation of CBC data. Current Interpretive Data was last revised on 2017. Monocyte pct 9.9 % [facility] Comment: Interpretive Data Percent cell count reference ranges are not reported, since discordance with absolute values may lead to misinterpretation of CBC data. Current Interpretive Data was last revised on 2017. Eosinophil pct 1.4 % [facility] Comment: Interpretive Data Percent cell count reference ranges are not reported, since discordance with absolute values may lead to misinterpretation of CBC data. Current Interpretive Data was last revised on 2017. Basophil pct 0.6 % [facility] Comment: Interpretive Data Percent cell count reference ranges are not reported, since discordance with absolute values may lead to misinterpretation of CBC data. Current Interpretive Data was last revised on 2017. Blood specimen (specimen) 10/20/2019 12:36 AM OTR DRIVER 10/20/2019 1:34 AM OTR DRIVER Annemarie Lynne NP LAB BLOOD ORDERABLES F inal Result [facility] Department [place] [address] * (ABNORMAL) CBC with auto differential (10/20/2019 12:36 AM OTR DRIVER) WBC 6.6 3.8 - 9.9 K/cumm [facility] Hgb 12.0 11.9 - 15.5 g/dL [facility] Hct 35.7 35.6 - 45.5 % [facility] Plt 213 150 - 400 K/cumm [facility] MPV 9.6 9.1 - 12.3 fL [facility] RBC 3.86(L) 3.90 - 5.20 M/cumm [facility] MCV 92.5 81.3 - 96.4 fL [facility] MCH 31.1 27.1 - 33.3 pg [facility] MCHC 33.6 32.3 - 35.7 g/dL [facility] RDW CV 14.0 11.1 - 14.9 % [facility] RDW SD 47.6 35.7 - 48.1 fL [facility] NRBC abs 0.00 0.00 - 0.01 K/cumm [facility] Blood specimen (specimen) 10/20/2019 12:36 AM OTR DRIVER 10/20/2019 1:34 AM OTR DRIVER Annemarie Lynne NP LAB BLOOD ORDERABLES F inal Result [facility] Department [place] [address] * Basic metabolic panel (10/20/2019 12:36 AM OTR DRIVER) [facility] Sodium 138 135 - 145 mmol/L [facility] Potassium, pl 4.0 3.3 - 4.9 mmol/L [facility] Chloride 105 97 - 110 mmol/L [facility] CO2 24 22 - 32 mmol/L [facility] Anion gap 9 2 - 15 mmol/L [facility] BUN 19 8 - 25 mg/dL [facility] Creatinine 0.85 0.60 - 1.10 mg/dL [facility] Glucose 111 70 - 199 mg/dL [facility] Comment: Interpretive Data Fasting glucose >/= 126 [...] 2017. Calcium 9.0 8.5 - 10.3 mg/dL [facility] Blood specimen (specimen) 10/20/2019 12:36 AM OTR DRIVER 10/20/2019 1:33 AM OTR DRIVER us Annemarie Lynne NP LAB BLOOD ORDERABLES F inal Result Performing Organization Address [facility]/ZIP Co de Phone Number [facility] Department [place] [address] * US Groin Pseudo Duplex Right (10/19/2019 10:30 AM OTR DRIVER) Anatomical Region Laterality Modality Vascular Right Ultrasound 10/19/2019 10:4 8 AM OTR DRIVER Impressions 10/19/2019 11:30 AM OTR DRIVER 1. No pseudoaneurysm or arteriovenous fistula of the right groin. 2. No groin hematoma. Electronically signed by: Sol Israel M.D. Narrative 10/19/2019 11:30 AM OTR DRIVER EXAMINATION: LIMITED RIGHT GROIN SONOGRAM AND DOPPLER [...] hematoma. Electronically signed by: Sol Israel M.D. us Annemarie Lynne NP [facility] PROCEDURES Tiffany l Result * Differential, auto (10/19/2019 12:13 AM OTR DRIVER) Neutrophil abs 4.3 1.7 - 6.5 K/cumm [facility] Imm gran abs 0.0 0.0 - 0.1 K/cumm [facility] Lymphocyte abs 2.4 0.8 - 3.3 K/cumm [facility] Monocyte abs 0.6 0.2 - 0.8 K/cumm [facility] Eosinophil abs 0.1 0.0 - 0.5 K/cumm [facility] Basophil abs 0.0 0.0 - 0.1 K/cumm [facility] Neutrophil pct 58.0 % [facility] Comment: Interpretive Data Percent cell count reference ranges are not reported, since discordance with absolute values may lead to misinterpretation of CBC data. Current Interpretive Data was last revised on 2017. Imm gran pct 0.3 % [facility] Comment: Interpretive Data Percent cell count reference ranges are not reported, since discordance with absolute values may lead to misinterpretation of CBC data. Current Interpretive Data was last revised on 2017. Lymphocyte pct 32.5 % [facility] Comment: Interpretive Data Percent cell count reference ranges are not reported, since discordance with absolute values may lead to misinterpretation of CBC data. Current Interpretive Data was last revised on 2017. Monocyte pct 7.6 % [facility] Comment: Interpretive Data Percent cell count reference ranges are not reported, since discordance with absolute values may lead to misinterpretation of CBC data. Current Interpretive Data was last revised on 2017. Eosinophil pct 1.1 % [facility] Comment: Interpretive Data Percent cell count reference ranges are not reported, since discordance with absolute values may lead to misinterpretation of CBC data. Current Interpretive Data was last revised on 2017. Basophil pct 0.5 % [facility] Comment: Interpretive Data Percent cell count reference ranges are not reported, since discordance with absolute values may lead to misinterpretation of CBC data. Current Interpretive Data was last revised on 2017. Blood specimen (specimen) 10/19/2019 12:13 AM OTR DRIVER 10/19/2019 12:43 AM OTR DRIVER us Annemarie Lynne NP LAB BLOOD ORDERABLES F inal Result [facility] Department [place] [address] * (ABNORMAL) CBC with auto differential (10/19/2019 12:13 AM OTR DRIVER) [facility] WBC 7.4 3.8 - 9.9 K/cumm [facility] Hgb 12.1 11.9 - 15.5 g/dL [facility] Hct 35.8 35.6 - 45.5 % [facility] Plt 226 150 - 400 K/cumm [facility] MPV 9.5 9.1 - 12.3 fL [facility] RBC 3.85(L) 3.90 - 5.20 M/cumm [facility] MCV 93.0 81.3 - 96.4 fL [facility] MCH 31.4 27.1 - 33.3 pg [facility] MCHC 33.8 32.3 - 35.7 g/dL [facility] RDW CV 13.8 11.1 - 14.9 % [facility] RDW SD 47.0 35.7 - 48.1 fL [facility] NRBC abs 0.00 0.00 - 0.01 K/cumm [facility] Blood specimen (specimen) 10/19/2019 12:13 AM OTR DRIVER 10/19/2019 12:43 AM OTR DRIVER Annemarie Lynne NP LAB BLOOD ORDERABLES F inal Result [facility] [place] [address] * Basic metabolic panel (10/19/2019 12:13 AM OTR DRIVER) [facility] Sodium 138 135 - 145 mmol/L [facility] Potassium, pl 4.0 3.3 - 4.9 mmol/L [facility] Chloride 105 97 - 110 mmol/L [facility] CO2 24 22 - 32 mmol/L [facility] Anion gap 9 2 - 15 mmol/L [facility] BUN 18 8 - 25 mg/dL [facility] Creatinine 0.89 0.60 - 1.10 mg/dL [facility] Glucose 129 70 - 199 mg/dL [facility] Comment: Interpretive Data Fasting glucose >/= 126 [...] Calcium 8.6 8.5 - 10.3 mg/dL [facility] Blood specimen (specimen) 10/19/2019 12:13 AM OTR DRIVER 10/19/2019 12:43 AM OTR DRIVER us Annemarie Lynne NP LAB BLOOD ORDERABLES F inal Result [facility] [place] [address] * MRI Brain and MRA Head W WO Contrast (10/18/2019 7:03 PM OTR DRIVER) Anatomical Region Laterality Modality Head and Neck N/A Magnetic Resonan ce 10/19/2019 9:39 AM OTR DRIVER Impressions 10/19/2019 9:58 AM OTR DRIVER 1. ??Severe stenosis of the innominate artery [...] Dara Dawson M.D. Narrative 10/19/2019 9:58 AM OTR DRIVER EXAMINATION: Magnetic resonance imaging (MRI) of the brain and brainstem without and with contrast Magnetic resonance angiography (MRA) of the nztahd-dg-Vqkveg without and with contrast Magnetic resonance angiography (MRA) of the neck without and with contrast HISTORY: Right innominate artery stenosis. TECHNIQUE: Multiplanar multi-weighted MRI of the brain and brainstem was performed without and with intravenous contrast using the general brain protocol. Magnetic resonance angiography of the zhpkpf-sj-Idmgbk was performed using separate data set acquisitions including a non-contrast drlw-ta-ltvuzt technique and a post-contrast technique to produce axial thin-slice source images. Magnetic resonance angiography of the neck was performed using a non-contrast gmdh-hz-hpqqsf technique and a post-contrast technique to produce [...] within the intracranial right vertebral artery on khdu-ir-bqrzul images with subsequent enhancement compatible with slow [...] contrast Magnetic resonance angiography (MRA) of the xkgckn-wt-Vjkcdq without and with contrast Magnetic resonance angiography (MRA) of the neck without and with contrast HISTORY: Right innominate artery stenosis. TECHNIQUE: Multiplanar multi-weighted MRI of the brain and brainstem was performed without and with intravenous contrast using the general brain protocol. Magnetic resonance angiography of the gvohmb-st-Gtjkvh was performed using separate data set acquisitions including a non-contrast sixj-zg-pfkuls technique and a post-contrast technique to produce axial thin-slice source images. Magnetic resonance angiography of the neck was performed using a non-contrast xspr-df-znpkbl technique and a post-contrast technique to produce [...] within the intracranial right vertebral artery on keyq-fn-swaljs images with subsequent enhancement compatible with slow [...] by: Dara Dawson M.D. Nanci Giron MD [facility] MRI PROCEDURES Final Result * MRA Neck W WO Contrast (10/18/2019 7:03 PM OTR DRIVER) Anatomical Region Laterality Modality Head and Neck N/A Magnetic Resonan ce 10/19/2019 9:39 AM OTR DRIVER Impressions 10/19/2019 9:58 AM OTR DRIVER 1. ??Severe stenosis of the innominate artery [...] Dara Dawson M.D. Narrative 10/19/2019 9:58 AM OTR DRIVER EXAMINATION: Magnetic resonance imaging (MRI) of the brain and brainstem without and with contrast Magnetic resonance angiography (MRA) of the yorwit-ts-Gvyqjp without and with contrast Magnetic resonance angiography (MRA) of the neck without and with contrast HISTORY: Right innominate artery stenosis. TECHNIQUE: Multiplanar multi-weighted MRI of the brain and brainstem was performed without and with intravenous contrast using the general brain protocol. Magnetic resonance angiography of the jfpnqv-ul-Eeorkm was performed using separate data set acquisitions including a non-contrast moep-bx-zubmyh technique and a post-contrast technique to produce axial thin-slice source images. Magnetic resonance angiography of the neck was performed using a non-contrast khcw-ls-ogttoi technique and a post-contrast technique to produce [...] within the intracranial right vertebral artery on bgid-zk-lepnhw images with subsequent enhancement compatible with slow [...] contrast Magnetic resonance angiography (MRA) of the ppqkxq-af-Wapnkz without and with contrast Magnetic resonance angiography (MRA) of the neck without and with contrast HISTORY: Right innominate artery stenosis. TECHNIQUE: Multiplanar multi-weighted MRI of the brain and brainstem was performed without and with intravenous contrast using the general brain protocol. Magnetic resonance angiography of the ehhake-ii-Qneygc was performed using separate data set acquisitions including a non-contrast pwgf-gl-vialtf technique and a post-contrast technique to produce axial thin-slice source images. Magnetic resonance angiography of the neck was performed using a non-contrast ijnn-xm-dfguig technique and a post-contrast technique to produce [...] within the intracranial right vertebral artery on dddu-fo-fvlgdx images with subsequent enhancement compatible with slow [...] by: Dara Dawson M.D. Nanci Giron MD IM MRI PROCEDURES Final Result * LEFT HEART CATHETERIZATION WITH CORONARY ANGIOGRAPHY AND WITH AND WITHOUT LEFT VENTRICULOGRAM (10/18/2019 11:21 AM OTR DRIVER) Anatomical Region Laterality Modality X-Ray Angiograph y 10/18/2019 Narrative 10/18/2019 3:40 PM OTR DRIVER [employer] Job ID: [id number] [employer] Document ID: [id number] Dictated date/time: [id number] CARDIAC CATHETERIZATION Patient of Azar Ramírez and [...] refer to the pre cath workup in [facility], which I have reviewed and cosigned today. PROCEDURE Ms. 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 ??She was prepared by [...] bleeding or hematoma. Selective coronary arteriograms Johanny 5-American JL4.5 left coronary catheter, 4-American WRP right coronary catheter. ??A 4-American straight pigtail was then passed to the LV for LV pressure measurement. A 6-American Angio-Seal was then deployed with immediate excellent hemostasis. ??This turned out to be an early generation Angio-Seal but it worked well, with good hemostasis. The procedure was concluded. ??I provided direct rdmh-tz-urgv monitoring of conscious sedation which was administered [...] for coronary revascularization. JOB ID/VF JOB ID: ??[id number] Nanci Giron MD CV CARDIAC CATH PROCEDURE S Final Result * (ABNORMAL) CBC without differential (10/18/2019 10:37 AM OTR DRIVER) [facility] Signature WBC 4.7 3.8 - 9.9 K/cumm [facility] Hgb 12.0 11.9 - 15.5 g/dL [facility] Hct 36.1 35.6 - 45.5 % [facility] Plt 222 150 - 400 K/cumm [facility] MPV 9.6 9.1 - 12.3 fL [facility] RBC 3.83(L) 3.90 - 5.20 M/cumm [facility] MCV 94.3 81.3 - 96.4 fL [facility] MCH 31.3 27.1 - 33.3 pg [facility] MCHC 33.2 32.3 - 35.7 g/dL [facility] RDW CV 13.7 11.1 - 14.9 % [facility] RDW SD 46.8 35.7 - 48.1 fL [facility] NRBC abs 0.00 0.00 - 0.01 K/cumm [facility] Blood specimen (specimen) 10/18/2019 10:37 AM OTR DRIVER 10/18/2019 11:12 AM OTR DRIVER Jd Sinha MD LAB BLOOD ORDERABLES Final Result Performing Organization Address [facility] Co de Phone Number [facility] [employer] [address] * Type and screen (10/18/2019 1:02 AM OTR DRIVER) Mara, indirect Negative [facility] ABO Rh O Positive [facility] Blood specimen (specimen) 10/18/2019 1:02 AM OTR DRIVER 10/18/2019 1:34 AM OTR DRIVER Narrative [facility] - 10/18/2019 2:19 AM OTR DRIVER Has the patient had Daratumumab (Darzalex) in the past 6 months?->Unknown Nanci Giron MD LAB BLOOD BANK TEST ORDER EDD Final Result Performing Organization Address [facility] Co de Phone Number [facility] [place] [employer] [address] * aPTT (10/18/2019 1:02 AM OTR DRIVER) aPTT 33 25 - 37 sec [facility] Comment: Interpretive data Heparin therapeutic range: 60-90 seconds Range based on correlation with therapeutic heparin activity range of 0.3-0.7 units/ml. Current interpretive data was last revised on 2019. Blood specimen (specimen) 10/18/2019 1:02 AM OTR DRIVER 10/18/2019 1:24 AM OTR DRIVER Nanci Giron MD LAB BLOOD ORDERABLES Tiffany l Result Performing Organization Address City/[facility] Co de Phone Number [facility] [employer] [address] * Phosphorus (10/18/2019 1:02 AM OTR DRIVER) Phosphorus, pl 3.3 2.3 - 4.5 mg/dL [facility] Blood specimen (specimen) 10/18/2019 1:02 AM OTR DRIVER 10/18/2019 1:27 AM OTR DRIVER aNnci Giron MD LAB BLOOD ORDERABLES Tiffany l Result Performing Organization Address [facility] de Phone Number [facility] [place] [address] * Magnesium (10/18/2019 1:02 AM OTR DRIVER) Magnesium 2.3 1.4 - 2.5 mg/dL [facility] Blood specimen (specimen) 10/18/2019 1:02 AM OTR DRIVER 10/18/2019 1:27 AM OTR DRIVER Nanci Giron MD LAB BLOOD ORDERABLES Tiffany l Result Performing Organization Address [facility] de Phone Number [facility] [place] [address] * Protime-INR (10/18/2019 1:02 AM OTR DRIVER) PT 11.2 8.6 - 13.0 sec [facility] INR 1.0 0.8 - 1.2 [facility] Comment: Interpretive data Oral anticoagulant therapeutic ranges: Venous thromboembolism prophylaxis or treatment: 2.0-3.0 CARDIOLOGY Standard range: 2.0-3.0 High-intensity range: 2.5-3.5 Refer to indication-specific guidelines for appropriate target ranges for prosthetic heart valve replacement. Current interpretive data was last revised on 2019. Blood specimen (specimen) 10/18/2019 1:02 AM OTR DRIVER 10/18/2019 1:24 AM OTR DRIVER Nanci Giron MD LAB BLOOD ORDERABLES Tiffany l Result Performing Organization Address [facility] de Phone Number [facility] Department [place] [employer] [place] [address] * Basic metabolic panel (10/18/2019 1:02 AM OTR DRIVER) Pathologist [facility] Sodium 139 135 - 145 mmol/L [facility] Potassium, pl 3.5 3.3 - 4.9 mmol/L [facility] Chloride 104 97 - 110 mmol/L [facility] CO2 27 22 - 32 mmol/L [facility] Anion gap 8 2 - 15 mmol/L [facility] BUN 20 8 - 25 mg/dL [facility] Creatinine 0.91 0.60 - 1.10 mg/dL [facility] Glucose 88 70 - 199 mg/dL [facility] Comment: Interpretive Data Fasting glucose >/= 126 [...] 2017. Calcium 8.9 8.5 - 10.3 mg/dL [facility] Blood specimen (specimen) 10/18/2019 1:02 AM OTR DRIVER 10/18/2019 1:27 AM OTR DRIVER Nanci Giron MD LAB BLOOD ORDERABLES Tiffany l Result Performing Organization Address [facility] de Phone Number [facility] Department [place] [address] * CBC without differential (10/18/2019 1:02 AM OTR DRIVER) [facility] WBC 6.6 3.8 - 9.9 K/cumm [facility] Hgb 12.4 11.9 - 15.5 g/dL [facility] Hct 36.6 35.6 - 45.5 % [facility] Plt 230 150 - 400 K/cumm [facility] MPV 9.3 9.1 - 12.3 fL [facility] RBC 3.98 3.90 - 5.20 M/cumm [facility] MCV 92.0 81.3 - 96.4 fL [facility] MCH 31.2 27.1 - 33.3 pg [facility] MCHC 33.9 32.3 - 35.7 g/dL [facility] RDW CV 13.5 11.1 - 14.9 % [facility] RDW SD 45.5 35.7 - 48.1 fL [facility] NRBC abs 0.00 0.00 - 0.01 K/cumm [facility] Blood specimen (specimen) 10/18/2019 1:02 AM OTR DRIVER 10/18/2019 1:27 AM OTR DRIVER us Nanci Giron MD LAB BLOOD ORDERABLES Tiffany pacheco Result [facility] Department [place] [address] * ECG 12 lead (10/18/2019 12:33 AM OTR DRIVER) [facility] Ventricular Rate EKG/Min 61 BPM [facility] Atrial Rate 61 BPM [facility] [place]-Interval (MSEC) 178 ms [facility] QRS-Interval (MSEC) 108 ms [facility] QT-Interval (MSEC) 456 ms [facility] QTc 459 ms [facility] P [place] 51 degrees [facility] R [place] 12 degrees [facility] T [place] 16 degrees [facility] Diagnosis Normal sinus rhythm Minimal voltage criteria for LVH, may be normal variant Nonspecific ST abnormality Abnormal ECG When compared with ECG of 03-APR-2016 00:04, No significant change was found Confirmed by PAT CORRIGAN M.D ([id number]) on 10/18/2019 12:40:42 PM [facility] 10/18/2019 12:3 3 AM OTR DRIVER 10/18/2019 12:40 PM OTR DRIVER us Nanci Giron MD ECG ORDERABLES Final Res ult [facility] documented in this encounter Visit Diagnoses Diagnosis [...] (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 Cervical spondylosis with myelopathy 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 Cervical spondylosis with myelopathy Vertebrobasilar artery insufficiency documented in this encounter Admitting Diagnoses Diagnosis [...] 10/22/19 at 0900 Given 10/27/2019 9:00 AM OTR DRIVER 325 mg Given 10/26/2019 9:11 AM OTR DRIVER 325 mg Given 10/25/2019 8:01 AM OTR DRIVER 325 mg atorvastatin (LIPITOR) tablet 80 mg 80 mg, oral, Nightly, First dose on 10/22/19 at 2100 Given 10/26/2019 8:46 PM OTR DRIVER 80 mg Given 10/25/2019 8:47 PM OTR DRIVER 80 mg Given 10/24/2019 8:52 PM OTR DRIVER 80 mg buPROPion XL (WELLBUTRIN XL) 24 hour tablet 150 mg 150 mg, oral, Daily, First dose on 10/22/19 at 0900, Do not crush, chew, cut, dissolve, open or otherwise manipulate tablet/capsule. Given 10/27/2019 9:00 AM OTR DRIVER 150 mg Given 10/26/2019 9:11 AM OTR DRIVER 150 mg Given 10/25/2019 8:01 AM OTR DRIVER 150 mg calcium carbonate (TUMS) chewable tablet 1,000 mg 1,000 mg (400 mg of elemental calcium), oral, Every 6 hours PRN, indigestion, Starting on Thu10/24/19 at 1840 Given 10/25/2019 11:37 PM OTR DRIVER 1,000 mg Given 10/25/2019 5:50 AM OTR DRIVER 1,000 mg Given 10/24/2019 6:56 PM OTR DRIVER 1,000 mg camphor-menthol (SARNA) 0.5-0.5 % lotion topical, Every 6 hours PRN, irritation, itching, dry skin, Starting on 10/22/19 at 1538, Apply to affected area: other Given 10/22/2019 8:17 PM OTR DRIVER carvediloL (COREG) tablet 12.5 mg 12.5 mg, oral, 2 times daily, First dose (after last modification) on Thu10/24/19 at 2100 Given 10/27/2019 9:03 AM OTR DRIVER 12.5 mg Given 10/26/2019 8:46 PM OTR DRIVER 12.5 mg Given 10/26/2019 9:11 AM OTR DRIVER 12.5 mg dronabinol (MARINOL) capsule 2.5 mg 2.5 mg, oral, 2 times daily before meals (lunch, dinner), First dose on Thu10/23/19 at 1730 Given 10/27/2019 9:00 AM OTR DRIVER 2.5 mg Given 10/26/2019 6:06 PM OTR DRIVER 2.5 mg Given 10/26/2019 12:00 PM OTR DRIVER 2.5 mg heparin 5,000 unit/mL injection 5,000 Units 5,000 Units, subcutaneous, Every 8 hours scheduled, First dose on Thu10/24/19 at 2230, Indications: Deep Vein Thrombosis PreventionIndications:Deep Vein Thrombosis Prevention Given 10/27/2019 5:40 AM OTR DRIVER 5,000 Units Right Lower Abdomen Given 10/26/2019 8:46 PM OTR DRIVER 5,000 Units L eft Lower Abdomen Given 10/26/2019 3:17 PM OTR DRIVER 5,000 Units R ight Lower Abdomen heparin in 0.9% sodium chloride 2,000 unit/1,000 mL (2 unit/mL) infusion (premix) As needed, Starting on Thu10/21/19 at 1325, Intra-Op Given 10/21/2019 1:25 PM OTR DRIVER 1,000 mL Surgical Site hydroCHLOROthiazide (HYDRODIURIL) tablet 12.5 mg 12.5 mg, oral, Daily, First dose on Thu10/26/19 at 1015 Given 10/27/2019 9:03 AM OTR DRIVER 12.5 mg Given 10/26/2019 12:00 PM OTR DRIVER 12.5 mg lidocaine (LIDODERM) 5 % patch 1 patch 1 patch, transdermal, Administer over 12 Hours, Daily, First dose on Thu10/25/19 at 1000, Do not cover the holes on the top side of the patch., Apply to affected area: chest Medication Applied 10/27/2019 9:01 AM OTR DRIVER 1 patch Chest Medication Applied 10/26/2019 9:11 AM OTR DRIVER 1 patch Chest Medication Applied 10/25/2019 10:17 AM OTR DRIVER 1 patch Chest montelukast (SINGULAIR) tablet 10 mg 10 mg, oral, Nightly, First dose on Thu10/22/19 at 2100 Given 10/26/2019 8:46 PM OTR DRIVER 10 mg Given 10/25/2019 8:47 PM OTR DRIVER 10 mg Given 10/24/2019 8:53 PM OTR DRIVER 10 mg ondansetron (ZOFRAN) injection 4 mg 4 mg, intravenous, Administer over 2 Minutes, Every 4 hours PRN, nausea, vomiting, Starting on Thu10/22/19 at 0030 Given 10/26/2019 9:11 AM OTR DRIVER 4 mg Given 10/25/2019 11:37 PM OTR DRIVER 4 mg Given 10/25/2019 7:13 PM OTR DRIVER 4 mg oxyCODONE (ROXICODONE) tablet 5 mg 5 mg, oral, Every 3 hours PRN, 2nd line for pain, Starting on Thu10/25/19 at 0915, Indications: PainIndications:Pain Given 10/27/2019 12:37 PM OTR DRIVER 5 mg Given 10/27/2019 5:40 AM OTR DRIVER 5 mg Given 10/27/2019 2:20 AM OTR DRIVER 5 mg senna (SENOKOT) tablet 1 tablet 1 tablet, oral, Daily PRN, constipation, Starting on Thu10/26/19 at 0800 sodium chloride 0.9 % irrigation As needed, Starting on Thu10/21/19 at 1322, Intra-Op Given 10/21/2019 1:22 PM OTR DRIVER 2,000 mL Surgical Site sodium chloride 0.9% flush 0.5-20 mL 0.5-20 mL, intra-catheter, Every 8 hours scheduled, First dose on Thu10/21/19 at 2200, Flush volume based on line type and size. Given 10/27/2019 5:40 AM OTR DRIVER 10 mL Given 10/26/2019 8:47 PM OTR DRIVER 10 mL Given 10/25/2019 4:22 AM OTR DRIVER 10 mL sodium chloride 0.9% flush 0.5-20 mL 0.5-20 mL, intra-catheter, As needed, line care, Starting on Thu10/21/19 at 1738, Flush volume based on line type and size. Flush before and after each use. Given 10/21/2019 9:26 PM OTR DRIVER 10 mL sterile water irrigation As needed, Starting on Thu10/21/19 at 1415, Intra-Op Given 10/21/2019 2:15 PM OTR DRIVER 1,000 mL Other (Comment) vancomycin (VANCOCIN) solution As needed, Starting on Thu10/21/19 at 1429, Intra-Op Given 10/21/2019 2:29 PM OTR DRIVER 6,000 mg documented in this encounter Discontinued Medications Medication [...] Recently Administered Medications Times are shown in OTR DRIVER. Scheduled Medication Order 10/25/2019 10/26/2019 10/27/2019 acetaminophen [...] Lalita Lorenzana RN)1717 (Given - Provider: Meenu Vincent, SENG)2321 (Given - Provider: Erica Griffin RN) 0509 (Given - Provider: Erica Griffin RN)1200 (Given - Provider: Johnny Peterson, SENG)1806 (Given - Provider: Johnny Peterson, SENG)2322 (Given - Provider: Mimi Mchugh, SENG) 0540 (Given - Provider: Mimi Mchugh, SENG) aspirin tablet 325 mg 325 mg, oral, Daily, First dose on 10/22/19 at 0900 0801 (Given - Provider: Lalita Lorenzana RN) 0911 (Given - Provider: Annemarie Nova RN) 0900 (Given - Provider: Johnny Peterson RN) atorvastatin (LIPITOR) tablet 80 mg 80 mg, oral, Nightly, First dose on 10/22/19 at 2100 2047 (Given - Provider: Erica Griffin RN) 204 (Given - Provider: Mimi Mchugh, RN) buPROPion XL (WELLBUTRIN XL) 24 hour tablet 150 mg 150 mg, oral, Daily, First dose on Thu10/22/19 at 0900, Do not crush, chew, cut, dissolve, open or otherwise manipulate tablet/capsule. 0801 (Given - Provider: Lalita Lorenzana, SENG) 0911 (Given - Provider: Annemarie Nova, SENG) 09 (Given - Provider: Johnny Peterson RN) carvediloL (COREG) tablet 12.5 mg 12.5 mg, oral, 2 times daily, First dose (after last modification) on Thu10/24/19 at 2100 0801 (Given - Provider: Lalita Lorenzana, SENG)2046 (Given - Provider: Erica Griffin, SENG) 0911 (Given - Provider: Annemarie Nova, SENG)2045 (Given - Provider: Mimi Mchugh, ESNG) 0903 (Given - Provider: Johnny Peterson RN) dronabinol (MARINOL) capsule 2.5 mg 2.5 mg, oral, 2 times daily before meals (lunch, dinner), First dose on Thu10/23/19 at 1730 1136 (Given - Provider: Lalita Lorenzana RN)1717 (Given - Provider: Meenu Vincent, SENG) 1200 (Given - Provider: Johnny Peterson, SENG)1806 (Given - Provider: Johnny Peterson, SENG) 0900 (Given - Provider: Johnny Peterson RN)1130 (Due) heparin 5,000 unit/mL injection 5,000 Units 5,000 Units, subcutaneous, Every 8 hours scheduled, First dose on Thu10/24/19 at 2230, Indications: Deep Vein Thrombosis Prevention 0528 (Given - Provider: Aparna Gan RN)1555 (Given - Provider: Jody De Luna RN)204 (Given - Provider: Erica Griffin, SENG) 0509 (Given - Provider: Erica Griffin RN)1517 (Given - Provider: Johnny Peterson RN)2046 (Given [...] chest 1017 (Medication Applied - Provider: Lalita Lorenzana RN)2100 (Medication Removed - Provider: Erica Griffin RN) 0911 (Medication Applied - Provider: Annemarie Nova RN)2046 (Medication Removed - Provider: Mimi Mchugh RN) 0901 (Medication Applied - Provider: Johnny Peterson RN)1304 (Due: Medication Removed - Provider: Automatic Discharge Provider - Comment: Time automatically adjusted from order being discontinued) montelukast (SINGULAIR) tablet 10 mg 10 mg, oral, Nightly, First dose on Thu10/22/19 at 2100 2047 (Given - Provider: Erica Griffin RN) 2046 (Given - Provider: Mimi Mchugh, SENG) sodium [...] Provider: Erica Griffin RN - Reason: Other)1400 (Due)7 (Given - Provider: Mimi Mchugh RN) 0540 (Given - Provider: Mimi Mchugh RN) [...] Pain 1913 (Given - Provider: Erica Griffin RN)232 (Given - Provider: Erica Griffin RN) 0509 (Given - Provider: Erica Griffin RN)0911 (Given - Provider: Annemarie Nova RN)192 (Given - Provider: Johnny Peterson RN)232 (Return to Cabinet - Provider: Mimi Mchugh RN) 0220 (Given - Provider: Mimi Mchugh, RN)0540 (Given - Provider: Mimi Mchugh RN)1237 [...] mg 4 201910/21/2019 al & mag hydroxide uldytzqbodn-jgprvdwiv-vcsrccnafd (GI COCKTAIL WITH ANTISPASMODIC) suspension 45 mL [...] 20 glucagon injection 1 mg 2 10/21/2019 hydrALAZINE (APRESOLINE) injection 10 mg 3 [...] (premix) 20 mEq 2 10/21/2019 sodium chloride 0.9% flush 0.5-20 mL 7 10/0810/17/2019 sodium chloride 0.9% IVPB 0-250 mL 1 2019 sodium chloride 0.9% solution 1,000 mL 4 vasopressin 20 Units in sodi um chloride 0.9% 100 mL (0.2 Units/mL) infusion 1 10/21/2019 atenoloL (TENORMIN) tablet 50 mg 1 10/18/19 20 cetirizine (ZyrTEC) tablet 10 mg 10/18/19 20 doxycycline monohydrate (ADO XA) tablet 50 mg 1 10/18/2019 fentaNYL (SUBLIMAZE) preserv ative free injection 1 10/18/2019 gadoterate meglumine (DOTARE M) 0.5 mmol/mL injection 15 mL 10/18/2019 ioversol (OPTIRAY 350) injection 1 10/18/19 20 labetalol (NORMODYNE,TRANDAT E) injection 10 mg 1 10/18/2019 lidocaine (XYLOCAINE) 10 mg/ mL (1 %) injection 1 10/18/2019 midazolam (VERSED) preservat karolyn free injection 1 10/18/2019 potassium chloride 20 mEq/26 0 [...] Date First Orde red Date 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
--- OUTSIDE RECORDS SUMMARY | 2024-09-08 08:24 | XMS_ITS | Encounter Summary ---
Author Organization 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
--- OUTSIDE RECORDS SUMMARY | 2024-09-08 08:24 | XMS_ITS | Encounter Summary ---
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 Operating Room [address] [place] [address] Zack Felton MD PhD [address] [facility] [address] [place] [address] Ammy Nolan, RAIL CAR OPERATOR [address] [facility] [phone] [place] [address] Anesthesia Record Procedure Summary Procedure Name Responsible Anesthesiologist Anesthesia Start Time Anesthesia Stop Time BYPASS AORTIC INNOMINATE (Chest) Zack Felton MD PhD 10/21/19 1046 10/21/19 1700 Events Date Time Event Comment 10/21/2019 0958 1046 An Start 1046 In Room 1047 An Start Data 1055 An Induction The patient was reevaluated immediately before moderate or deep sedation use and before anesthesia induction. 1100 An Intubation 1100 Perfusion/Pump Standby 1104 JSAON placed 1140 Anesthesia Ready 1148 Proc Start 1149 Incision Start 1255 Cell Saver Start 1258 Lungs Down 1258 Sternotomy 1600 Cell Saver Stop 1610 Sternum closed 1620 Proc Fin 1632 JASON removed 1645 Perfusion Complete 1645 an stop data 1649 Out of Room 1700 Handoff to RN I completed my handoff [...] disposition at the time of handoff: ICU 1700 An Stop Meds Name Total lidocaine 1 % PF 80 mg fentaNYL 850 mcg propofol 150 mg rocuronium 150 mg phenylephrine 100 mcg/mL 350 mcg phenylephrine infusion 3.17 mg norepinephrine 64 mcg calcium chloride 1 g vancomycin 1,500 mg/515 mL 1,500 mg heparin 1,000 unit/ml 9,000 Units niCARdipine in sodium chlori de 0.9% (CARDENE) 25 mg/250 mL (0.1 mg/mL) infusion (premix) solution 3.85 mg niCARdipine 700 mcg anticoagulant citrate dextrose solution A injection 1,000 mL ceFAZolin 4,000 mg norepinephrine in dextrose 5 % (LEVOPHED) 8,000 mcg/250 mL (32 mcg/mL) infusion (premix) 1.18 mg sodium chloride 0.9 % irrigation 2,000 m L vasopressin 20 Units in sodi um chloride 0.9% 100 mL (0.2 Units/mL) infusion 4.36 Units protamine 40 mg dexmedetomidine infusion 37.17 mcg insulin regular 3 Units glycopyrrolate 0.4 mg neostigmine injection 1 mg/mL 2 mg Lactated Ringer's (LR) infusion 0 mL albumin human bottle 5 % 1,000 mL * Agents Name O2% N2O O2 Sevoflurane Inspired Sevoflurane * Blood No blood administrations on file. Lines, Drains, and Airways Type Details Placement Removal Peripheral IV Placement Date: 10/18/19; Placement Time: 0245; Change Due: 10/22/19; Catheter Size: 20 G; Orientation: Left; Location: Forearm; Site Prep: Chlorhexidine; Technique: Anatomical landmarks; Inserted by: Mildred Melchor RN; Insertion Attempts: 1; Patient Tolerance: Tolerated well; Removal Date: 10/23/19; Removal Time: 1129; Removal Reason: Per protocol 10/18/19 0245 by Michela Gore RN 10/23/19 1129 by Mandy Waddell, SENG RETIRED Wound 10/18/19; 1339; No; Puncture; Right; Groin; Cardiac cath site; 08/09/24 (Retired LDA, Removed/Completed by [facility] with LDA Utility); 1213 (Retired LDA, Removed/Completed by [facility] with LDA Utility) 10/18/19 1339 by Sarah Velasco RN 08/09/24 1213 by Discharge Provider, Automatic Urethral Catheter Placement Date: 10/21/19; Inserted by: OSBALDO Montes; Type: Non-latex, Temperature probe; Size: 16 Fr.; Balloon Size: 10 mL; Urine Returned: Yes; Removal Date: 10/25/19; Removal Time: 1026; Removal Reason: Per order 10/21/19 0000 by Sylvester White RN 10/25/19 1026 by Lalita Lorenzana RN Y Chest Tube A and B 10/21/19; A; Right; Pleural; 24 Fr.; B; Mediastinal; 24 Fr. 10/21/19 0000 by Sylvester White RN 10/24/19 1000 by Zulay Shahid ETT Placement Date: 10/21/19; Placement Time: 1208 (created via procedure documentation); Mask Ventilation: 2; Technique: Video laryngoscopy; Type: ETT - single; Single Lumen Tube Size: 7.5 mm; Cuffed: Yes; Laryngoscope: Valerie; Blade Size: 3; Location: Oral; Insertion Attempts: 1; Placement Verification: Auscultation; Removal Date: 10/21/19; Removal Time: 19310/21/19 1208 by Jeremy Olson MD 10/21/19 1930 by Margaret Johnston, SENG Arterial Line Placement Date: 10/21/19; Placemnt Time: 1209 (created via procedure documentation); Size: 20 G; Orientation: Left; Location: Radial; Securement: Taped, Transparent dressing; Removal Date: 10/24/19; Removal Time: 1000 10/21/19 1209 by Jeremy Olson MD 10/24/19 1000 by Zulay Shahid RETIRED Surgical Site 10/21/19; 1327; Ch est; Mini sternotomy site; 07/18/22; 30 10/21/19 1327 by Sylvester White RN 07/18/22 0930 by Shira Zuleta RN RETIRED Surgical Site 10/21/19; 1659; Ri ght, Upper, Lateral; Chest; cut down; 07/18/22; 30 10/21/19 1659 by Erlin Orozco RN 07/18/22 0930 by Shira Zuleta RN RETIRED Surgical Site 10/21/19; 1659; Ri ght; Chest; chest tube site; 07/18/22; 92910/21/19 1659 by Erlin Orozco RN 07/18/22 0930 by Shira Zuleta RN CVC Quadruple Lumen Placement Date: 10/21/19; Placement Time: 1700; Orientation: Left; Location: Femoral; Removal Date: 10/25/19; Removal Time: 184; Removal Reason: Not present on admission 10/21/19 1700 by Elrin Orozco RN 10/25/19 1845 by Meenu Vincent RN documented in this encounter Social History Tobacco Use Types Packs/Day Years Used Date Smoking Tobacco: Former Cigarettes Smokeless Tobacco: Never Alcohol Use Standard Drinks/Week Comments Yes 0 (1 standard drink = 0.6 oz pur e alcohol) Comments Unknown Sex and Gender Information Value Date Recorded Sex Assigned at Not on file Legal Sex Female 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 Gender Identity Not on file Sexual Orientation Not on file documented as of this encounter OR Notes * Anesthesia Postprocedure Evaluation - Maliha Michael MD - 10/21/2019 5:11 PM CST Patient: Suma Saenz Procedure Summary Date: 10/21/19 Room / Location: [facility] OR POD 3 ROOM 311 / [facility] OR POD 3 Anesthesia Start: 1046 Anesthesia Stop: Procedures: BYPASS AORTIC INNOMINATE (N/A Chest) ASCENDING AORTA TO RIGHT SUBCLAVIAN, RIGHT COMMON CAROTID ARTERY AND LEFT COMMON CAROTID ARTERY (Bilateral Neck) 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 Pain score: unable to evaluate Pain management: adequate Airway patency: adequate Evidence of recall: unable to evaluate Anesthetic complications: no Cardiovascular status: acceptable and hemodynamically stable Respiratory status: intubated and acceptable Hydration status: acceptable Pt is: normothermic Nausea/Vomiting status: unable to evaluate Comments: Patient transported to the ICU fully monitored. Remained hemodynamically stable throughout transport. Handoff given to ICU team. All questions answered. Cosigned by Hosea Patricia MD at 10/24/2019 7:10 AM BREAKING MACHINE OPERATOR KING MACHINE OPERATOR KING MACHINE OPERATOR * Anesthesia Procedure Notes - Zack Felton MD PhD - 10/21/2019 12:30 PM CSTAssociated Order(s): JASON JASON Date/time: 10/21/2019 11:00 AM Staff: Supervising anesthesiologist: Zack Felton MD PhD Performed by: Anesthesiologist: Zack Felton MD PhD Preprocedure checklist: patient identified, procedure contraindications assessed, procedure consent, risks, benefits and alternatives discussed, monitors and equipment checked, timeout performed and JASON probe inserted into esophagus using lubricating jelly General procedure Information: Reason for procedure/indications: assessment of ascending aorta Performed: personally Procedure performed at surgeon's request: yes Results discussed with surgeon: yes Images submitted to archive: yes Patient location: OR Intubated: yes Bite blocked placed: yes Probe Insertion: easy Complications: no Probe type: adult Modalities: 2D imaging, continuous wave Doppler, pulsed wave Doppler and color Doppler Billing information: Physician requesting echo: Azar Lara MD CPT code: JASON placement and diagnostic exam, non-congenital (01959) ICD code(s) for medical necessity: I70.0 - Atherosclerosis of aorta Echocardiographic and doppler measurements: Ventricles: Left ventricle: Cavity size: normal Hypertrophy: yes Thrombus: no Global function: normal LVEF%: normal Right ventricle: Cavity size: normal Hypertrophy: no Thrombus: no Global function: normal RVEF%: normal Interventricular septum: normal Regional function: 1- Basal anteroseptal: normal 2- Basal anterior: normal 3- Basal anterolateral: normal 4- Basal inferolateral: normal 5- Basal inferior: normal 6- Basal inferoseptal: normal 7- Mid anteroseptal: normal 8- Mid anterior: normal 9- Mid anterolateral: normal 10- Mid inferolateral: normal 11- Mid inferior: normal 12- Mid inferoseptal: normal 13- Apical anterior: normal 14- Apical lateral: normal 15- Apical inferior: normal 16- Apical septal: normal 17- [place]: normal Valves: Aortic Valve: Annulus: normal Leaflet morphology: normal Leaflet motion: normal Stenosis: none Regurgitation: mild and moderate Mitral valve: Annulus: normal Leaflet morphology anterior: normal Leaflet morphology posterior: normal Leaflet motion anterior: normal Leaflet motion posterior: normal Stenosis: none Regurgitation: mild Tricuspid valve: Annulus: normal Leaflet morphology: normal Leaflet motion: normal Stenosis: none Regurgitation: none Pulmonic valve: Annulus: normal Stenosis: none Regurgitation: trace Aorta: Ascending aorta: Size: normal Dissection: no Plaque thickness(mm): 0-3 Plaque mobile: no Aortic arch: Size: normal Dissection: no Plaque thickness(mm): 0-3 Plaque mobile: no Descending aorta: Size: normal Dissection: no Plaque thickness(mm): >3 Plaque mobile: no Atria: Right atrium: Size: normal Spontaneous echo contrast: no Thrombus: no Mass: no Left atrium: Size: dilated Spontaneous echo contrast: no Thrombus: no Mass: no Left atrial appendage: normal Diastolic function and other findings: Diastolic function: grade I dysfunction Pericardium: normal Left pleural effusion: none Right pleural effusion: normal Pulmonary venous flow: normal Pre-procedure JASON exam summary: Normal RV/LV systolic function. LVH. LV diastolic dysfunction c/w impaired relaxation. Mild-moderate central AI. Mild MR. No significant atherosclerosis of ascending aorta & aortic arch. No thrombus seen in DINA. No PFO by color Doppler. Attestation Statement: By signing this report the attending anesthesiologist certifies that he or she has personally reviewed and interpreted the echocardiogram and has reviewed and or edited and agrees with the written comments contained within the report. KING MACHINE OPERATOR KING MACHINE OPERATOR KING MACHINE OPERATOR * Anesthesia Procedure Notes - Jeremy Olson MD - 10/21/2019 12:08 PM CSTAssociated Order(s): Arterial Line Arterial Line Patient location: pre-op holding Indication: continuous blood pressure monitoring and blood sampling needed Staff: Supervising provider: Zack Felton MD PhD Placed by: Resident: Jeremy Olson MD Procedure prep: Prep solution: chlorhexadine/alcohol Prep: provider hat/mask, sterile gloves, sterile drape and sterile probe cover Skin infiltrated with lidocaine 1%: yes Arterial line: Catheter size: 20 gauge Catheter length: 1 and 3/8 inch Catheter type: wire-guided catheter Seldinger technique: yes Laterality: left Site: radial artery Line secured: tape and Tegaderm Results: good waveform Number of attempts: 2 Assessment: Events: patient tolerated procedure well with no complications KING MACHINE OPERATOR * Anesthesia Procedure Notes - Jeremy Olson MD - 10/21/2019 12:07 PM CSTAssociated Order(s): Airway Airway Patient location: OR Urgency: elective Indications for airway management: anesthesia and airway protection Difficult airway: no Staff: Supervising provider: Zack Felton MD PhD Placed by: Resident: Jeremy Olson MD Emergent airway documentation: Risks and benefits discussed: yes Consent obtained: yes Consent given by: patient and parent Airway prep: Preoxygenated: yes Patient position: sniffing Mask difficulty assessment: 2 - vent by mask + OA or adjuvant Spontaneous ventilation during airway: absent Sedation level during airway: GA Final airway details: Final airway type: endotracheal airway Tube type: ETT ETT size: 7.5 mm Cuffed: yes Technique used for successful ETT placement: video laryngoscopy Devices/Methods used in placement: intubating stylet Insertion site: oral Blade type: Valerie Video blade type: Conley Blade size: 3 Cormack-Lehane (video): grade IIb - view of arytenoids or posterior of glottis only Cuff inflated with: air Placement verified by: auscultation Airway secured with: silk tape Number of attempts: 1 KING MACHINE OPERATOR * Anesthesia Preprocedure Evaluation - Zack Felton MD PhD - 10/18/2019 4:41 PM CST Images from the original note were not included. Center for Preoperative Assessment and Planning Preoperative Evaluation Record Evaluation type/location: IPAP at [facility] Planned procedure site: [facility] (Pods 2///[facility]) Date: 10/18/19 Anesthesia Evaluation Suma Saenz is a 73 y.o. 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 female who is being evaluated prior to undergoing Innominate Artery Bypass and Re-do Sternotomy Past Medical History Neurological + CVA/Stroke (11/04/2015 Ischemic embolic CVA. Syncopal epiode and recently x3 within past 3weeks--last episode 10/17/2019 ) Number of CVA episodes: 1. Date of last CVA: 2015. + ICA stenosis + Psychiatric history - anxiety and depression Pertinent negatives: seizures; neuromuscular disease; TIA; CEA; dementia/mild cognitive impairment and carotid artery stent Cardiovascular + Hyperlipidemia + Systolic or diastolic dysfunction w/o CHF Diastolic dysfunction w/o CHF. Diastolic function: stage I - impaired relaxation LVEF: 50-60%. Pertinent negatives: hypertension ; CAD ; [place] ; CABG ; valvular heart disease; valve replacement; atrial fibrillation; arrhythmia; pacemaker/ICD; PVD; DVT/PE; negative for CHF; drug-eluting stent(s); bare metal stent(s) and coronary angioplasty Comments: Severe systemic arterial Hypertension per cardiac cath done 10/18/2019. Respiratory Pertinent negatives: COPD; asthma; sleep apnea (MARC); pulmonary hypertension; no O2 use outside thehospital and non-smoker Hepatic / Heme Pertinent negatives: liver disease; history of anemia; history of thrombocytopenia and history of Mara positive Gastrointestinal Pertinent negatives: GERD and hiatal hernia Renal / Pertinent negatives: renal disease; dialysis and nephrolithiasis Musculoskeletal/Pain + Chronic pain - back pain. Pertinent negatives: chronic opioid use and previous treatment for opioid use disorder Comments: DDD L5-S1 Endocrine / Other Pertinent negatives: diabetes mellitus; thyroid disease; obesity (BMI >30); cancer history; rheumatological disease and transplanted organ Functional Capacity Functional capacity: <4 METs Review of Systems + syncope (10/17/2019 Syncopal episode) + dizziness + chronic pain + vision loss (Wears corrective lenses) Pertinent negatives: productive cough; wheezing; SOB; recent cold/flu; fever; chest pain; palpitations; orthopnea; pedal edema; PND; heavy menses; Sickle Cell disease/trait; previous transfusion; transfusion reaction; melena/hematochezia; easy bruising; bleeding problems; muscle weakness; numbness/tingling; hard of hearing; heartburn; nausea; dysphagia; diarrhea; dentures/partials; chipped/loose teeth; abdominal pain; diaphoresis and no unexpected weight change Comments: Walks < 2 blocks[address] Avoids stair climbing. No CP or SOB. (+) low back pain 2/2 DDD. Tolerates HOB flat PAT Summary and Plans Cardiac risk classification of planned procedure: intermediate cardiac risk open vascular procedure. Preoperative assessment status: complete. Additional comments: Suma Saenz is a 73 y.o. female who is being evaluated prior to undergoing an intermediate cardiac risk open vascular surgery. Revised Cardiac Risk Index factors are (CVA) for a total RCRI of 1 out of 6. Functional capacity is 4-6 METs. Case discussed with CPAP Attending. RE: Pt takes daily ASA 325 mg The patient is on aspirin therapy and is scheduled for cardiac/vascular surgery where aspirin is routinely continued for periprocedural benefit. Pt has diastolic dysfunction with preserved EF. ECHO done 03/31/2019 had EF of 60%. Cardiac Cath 10/18/2019 had LVEDP of 198/28. Obstructive sleep apnea (MARC) screening status is STOP-Bang=4 suggesting moderate risk for MARC. Blood bank needs for day of procedure: T&C 2 unit pRBCs Pending labs/tests as per Vsacular Surgery Team Anesthesia recommends Pt have x4 units RBCs ordered for day of surgery once surgical date established. Vascular Surgery to order. Anesthesia recommends Pt be NPO after midnight on day of surgery and receive with sips of water AM mediations: Atenolol & Bupropion XL before departing to the OR. Pt has a Power of Student Designed [facility]: Juice Saenz. Copy of document in Patient Chart. PAT process Complete. Preoperative evaluation performed by Ammy Nolan NP on 10/18/19 at 4:43 PM. . Patient Active Problem List Diagnosis ??? Vertebral [...] collapse Past Medical History: Diagnosis Date ??? Anxiety [...] Last Dose Start Date End Date Provider aspirin 325 mg tablet 10/18/2019 07/04/16 -- Marco A Antoine MD take 1 tablet by oral route every day atenoloL (TENORMIN) 50 mg tablet 10/18/2019 10/12/19 10/11/20 Cassidy Anglin NP Take 1 tablet (50 mg total) by mouth daily atorvastatin (LIPITOR) 80 mg tablet 10/17/2019 07/04/16 -- Marco A Antoine MD take 1 tablet by oral route every day buPROPion XL (WELLBUTRIN XL) 150 mg 24 hr tablet 10/18/2019 02/26/15 -- Marco A Antoine MD take 1 tablet by oral route 2 times every day cetirizine (ZyrTEC) 10 mg tablet 10/18/2019 02/26/15 -- Marco A Antoine MD take 1 tablet by oral route every day clopidogrel (PLAVIX) 75 mg tablet 10/18/2019 02/26/15 -- Marco A Antoine MD take 1 tablet by oral route every day doxycycline (ADOXA) 50 mg tablet 10/18/2019 -- -- Historical Provider, hydroCHLOROthiazide (HYDRODIURIL) 25 mg tablet 10/18/2019 -- -- Historical Provider, montelukast (SINGULAIR) 10 mg tablet 10/17/2019 11/03/16 -- Marco A Antoine MD take 1 tablet by oral route every day in the evening senna-docusate (SENNA PLUS) 8.6-50 mg 10/17/2019 11/03/16 -- Marco A Antoine MD take 2 tablet by oral route every day Current Facility-Administered Medications: ??? acetaminophen (TYLENOL) tablet 650 mg, 650 mg, oral, Q4H PRN ??? aspirin tablet 325 mg, 325 mg, oral, Daily, 325 mg at 10/18/19827 ??? atenoloL (TENORMIN) tablet 50 mg, 50 mg, oral, Daily, 50 mg at 10/18/19827 ??? atorvastatin (LIPITOR) tablet 80 mg, 80 mg, oral, Nightly, 80 mg at 10/18/19 0124 ??? buPROPion XL (WELLBUTRIN XL) 24 hour tablet 150 mg, 150 mg, oral, Daily, 150 mg at 10/18/19828 ??? cetirizine (ZyrTEC) tablet 10 mg, 10 mg, oral, Nightly ??? doxycycline monohydrate (ADOXA) tablet 50 mg, 50 mg, oral, BID, 50 mg at 10/18/19827 ??? heparin 5,000 unit/mL injection 5,000 Units, 5,000 Units, subcutaneous, Q8H REID, 5,000 Units at10/18/19 1608 ??? hydroCHLOROthiazide (HYDRODIURIL) tablet 25 mg, 25 mg, oral, Daily, 25 mg at 10/18/19828 ??? labetalol (NORMODYNE,TRANDATE) injection 10 mg, 10 mg, intravenous, Q4H PRN ??? Lactated Ringer's (LR) infusion, 50 mL/hr, intravenous, Continuous, Last Rate: 50 mL/hr at 10/18/19 1428, 50 mL/hr at 10/18/19 1428 ??? montelukast (SINGULAIR) tablet 10 mg, 10 mg, oral, Nightly ??? senna-docusate (PERICOLACE) 8.6-50 mg per tablet 2 tablet, 2 tablet, oral, BID PRN, 2 tablet at10/18/19828 ??? sodium chloride 0.9% flush 0.5-20 mL, 0.5-20 mL, intra-catheter, Q8H REID, 10 mL at 10/18/19 0112 ??? sodium chloride 0.9% flush 0.5-20 mL, 0.5-20 mL, intra-catheter, PRN Social History Tobacco Use Smoking Status Former Smoker ??? Types: Cigarettes Smokeless Tobacco Never Used Substance and Sexual Activity Alcohol Use Yes Substance and Sexual Activity Drug Use Never Family History Problem Relation Age of Onset ??? Stroke Father Stroke; ??? Heart disease Father Family history of cardiac disorder - (Added by TW Conv) ??? Heart disease Mother Heart disease; /Family history of cardiac disorder - (Added by TW Conv) PAT Physical Exam Airway Exam: Mallampati: III Cervical ROM: FROM TM distance: 3 Cardiovascular Exam: Rate: regular Rhythm: regular Pulmonary Exam: LCTA, bilat EENT Exam: trachea midline Dental Exam: Appears intact Abdominal exam: Abdomen is soft. Bowel sounds are present. Current state: Patient's current state is cooperative. Line/Drains/Tubes/Devices: Lines and tubes in place: #20 Left lower arm peripheral IV access. Vitals: 10/18/19 1530 10/18/19 1600 10/18/19 1700 BP: (!) 180/68 160/48 (!) 174/42 Pulse: 60 58 58 Resp: Temp: 36.5 ??C (97.7 ??F) 36.7 ??C (98 ??F) 36.6 ??C (97.9 ??F) SpO2: 98% 95% 94% Relevant diagnostics: ECG(s): N/A Echocardiogram(s): 03/31/2016 ECHO TTE: Upper-normal LV cavity size, mild concentric LVH, normal LV systolic fxn. LVEF 60%. Normal RV size and systolic fxn. Normal atria size. Impaired diastolic relaxation with normal filling pressures. EF=60% Unable to estimate PASP due to lack of adequate TR jet. Normal IVC and aortic root size. No pericardial effusion. Stress test(s): N/A Cardiac catheterization(s): 10/18/2019 Cardiac Cath: DIAGNOSTIC IMPRESSIONS 1. Severe systemic arterial hypertension. 2. Severe elevation of LVEDP (198/28). 3. No significant obstructive coronary disease. PFT(s): N/A Vascular studies:04/12/2018 Carotid Duplex: Conclusions: The right internal carotid artery disease is consistent with a less than 50% stenosis. The left internal carotid artery disease is consistent with a less than 50% stenosis. Bidirectional flow noted in the right vertebral artery. 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 Normal, antegrade flow is noted in the left vertebral artery. Other: N/A PT: 10/18/2019: 11.2 sec INR: 10/18/2019: 1.0 APTT: 10/18/2019: 33 sec Hgb A1C: No results found for requested labs within last 720 hours. CBC RBC: 10/18/2019: 3.83 M/cumm* RDW: No results found for requested labs within last 720 hours. MCHC: 10/18/2019: 33.2 g/dL MCH: 10/18/2019: 31.3 pg MCV: 10/18/2019: 94.3 fL Hct: 10/18/2019: 36.1 % Hgb: 10/18/2019: 12.0 g/dL WBC: 10/18/2019: 4.7 K/cumm MPV: 10/18/2019: 9.6 fL Platelets: 10/18/2019: 222 K/cumm RDW CV: 10/18/2019: 13.7 % RDW Sd: 10/18/2019: 46.8 fL BMP Glucose: 10/18/2019: 88 mg/dL Calcium: 10/18/2019: 8.9 mg/dL Sodium: 10/18/2019: 139 mmol/L Potassium: 10/18/2019: 3.5 mmol/L CO2: 10/18/2019: 27 mmol/L Chloride: 10/18/2019: 104 mmol/L BUN: 10/18/2019: 20 mg/dL Creatinine: 10/18/2019: 0.91 mg/dL STOP-Bang Total Score: 4 DOS Physical Exam Attestation: This PAT evaluation Airway Exam: Mallampati: II Cervical ROM: limited extension (Limited neck extension 2/2 vertebral artery stenosis with resultant cerebral ischemia if extends neck too much.) Cardiovascular Exam: Rate: regular Rhythm: regular Pulmonary Exam: LCTA EENT Exam: trachea midline Dental Exam: Appears intact Anesthesia Plan ASA 3 Planned anesthesia: General Team communication plan: oral ET tube Invasive Monitors Planned: Invasive monitors planned: arterial line and central venous catheter. Induction: Induction: intravenous. Postoperative Plan: Postoperative administration opioids intended. Postoperative mechanical ventilation intended. Patient's planned disposition post procedure is ICU. Planned trial extubation. Informed Consent: Discussed plan with resident. Anesthesia [...] and agree to proceed. All questions answered. KING MACHINE OPERATOR KING MACHINE OPERATOR documented in this encounter Miscellaneous Notes * Addendum Note - Zack Felton MD PhD - 10/31/2019 1:45 PM BREAKING MACHINE OPERATOR Addendum created 10/31/19 1345 by Zack Felton MD PhD Attestation recorded in Intraprocedure (Anesthesia), Clinical Note Signed, Intraprocedure Attestations filed (Anesthesia), Intraprocedure Blocks edited (Anesthesia) KING MACHINE OPERATOR * Post-Perfusion - Rony Latif CCP - 10/21/2019 4:45 PM CST Medications Medication Rate/Dose/Volume Action Date Time Administering User Audit lidocaine 1 % PF (mg) 80 mg Given 10/21/19 1055 Jeremy Olson MD fentaNYL (mcg) 100 mcg Given 10/21/19 1055 Jeremy Olson MD 150 mcg Given 1103 Jeremy Olson MD 100 mcg Given 1147 Jeremy Olson MD edited 150 mcg Given 1245 Jeremy Olson MD 250 mcg Given 1246 Jeremy Olson MD 100 mcg Given 1606 Jeremy Olson MD propofol (mg) 150 mg Given 10/21/19 1055 Jeremy Olson MD rocuronium (mg) 100 mg Given 10/21/19 1055 Jeremy Olson MD 30 mg Given 1334 Jeremy Olson MD 20 mg Given 1507 Jeremy Olson MD phenylephrine 100 mcg/mL (mcg) 50 mcg Given 10/21/19 1319 Jeremy Olson MD 100 mcg Given 1340 Jeremy Olson MD 100 mcg Given 1402 Jeremy Olson MD 100 mcg Given 1403 Jeremy Olson MD phenylephrine infusion (mcg/kg/min) 0.5 mcg/kg/min New Bag 10/21/19 1257 Jeremy Olson MD Dosing weight: 88.5 kg 0.7 mcg/kg/min Rate Change 1259 Jeremy Olson MD Stopped 1307 Jereym Olson MD 0.4 mcg/kg/min Restarted 1319 Jeremy Olson MD edited 0.6 mcg/kg/min Rate Change 1327 Jeremy Olson MD Stopped 1334 Jeremy Olson MD 0.4 mcg/kg/min Restarted 1340 Jeremy Olson MD 0.6 mcg/kg/min Rate Change 1344 Jeremy Olson MD Stopped 1347 Jeremy Olson MD 0.4 mcg/kg/min Restarted 1402 Jeremy Olson MD Stopped 1408 Jeremy Olson MD 0.4 mcg/kg/min Restarted 1417 Jeremy Olson MD 0.7 mcg/kg/min Rate Change 1422 Jeremy Olson MD 1 mcg/kg/min Rate Change 1432 Jeremy Olson MD Stopped 1439 Jeremy Olson MD norepinephrine (mcg) 32 mcg Given 10/21/19 1505 Jeremy Olson MD 32 mcg Given 1512 Jeremy Olson MD calcium chloride (g) 0.5 g Given 10/21/19 1514 Jeremy Olson MD 0.5 g Given 1517 Jeremy Olson MD vancomycin 1,500 mg/515 mL (mg) 1,500 mg (over 90 min) Given 10/21/19 1100 Jeremy Olson MD heparin 1,000 unit/ml (Units) 6,000 Units Given 10/21/19 1206 Jeremy Olson MD 3,000 Units Given 1339 Jeremy Olson MD niCARdipine in sodium chloride 0.9% (CARDENE) 25 mg/250 mL (0.1 mg/mL) infusion (premix) solution (mcg/kg/min) 0.5 mcg/kg/min New Bag 10/21/19 1220 Jeremy Olson MD edited Dosing weight: 88.5 kg 1 mcg/kg/min Rate Change 1231 Jeremy Olson MD 1.5 mcg/kg/min Rate Change 1238 Jeremy Olson MD edited 0.5 mcg/kg/min Rate Change 1247 Jeremy Olson MD Stopped 1259 Jeremy Olson MD 0.5 mcg/kg/min Restarted 1349 Jeremy Olson MD 1 mcg/kg/min Rate Change 1351 Jeremy Olson MD 0.75 mcg/kg/min Rate Change 1400 Jeremy Olson MD Stopped 1402 Jeremy Olson MD niCARdipine (mcg) 100 mcg Given 10/21/19 1236 Jeremy Olson MD 200 mcg Given 1238 Jeremy Olson MD 100 mcg Given 1347 Jermey Olson MD 100 mcg Given 1349 Jeremy Olson MD 200 mcg Given 1351 Jeremy Olson MD anticoagulant citrate dextrose solution A injection (mL) 1,000 mL Given 10/21/19 1254 Rony Latif, CCP Comment: Cell Saver Anticoagulant ceFAZolin (mg) 2,000 mg Given 10/21/19 1135 Jeremy Olson MD 2,000 mg Given 1532 Jeremy Olson MD norepinephrine in dextrose 5% (LEVOPHED) 8,000 mcg/250 mL (32 mcg/mL) infusion (premix) (mcg/kg/min) 0.03 mcg/kg/min New Bag 10/21/19 1439 Jeremy Olson MD edited Dosing weight: 88.5 kg 0.05 mcg/kg/min Rate Change 1444 Jeremy Olson MD 0.07 mcg/kg/min Rate Change 1450 Jeremy Olson MD 0.09 mcg/kg/min Rate Change 1456 Jeremy Olson MD 0.1 mcg/kg/min Rate Change 1502 Jeremy Olson MD edited 0.15 mcg/kg/min Rate Change 1506 Jeremy Olson MD edited 0.2 mcg/kg/min Rate Change 1510 Jeremy Olson MD 0.12 mcg/kg/min Rate Change 1530 Jeremy Olson MD 0.1 mcg/kg/min Rate Change 1532 Jeremy Olson MD 0.12 mcg/kg/min Rate Change 1557 Jeremy Olson MD 0.08 mcg/kg/min Rate Change 1606 Jeremy Olson MD 0.05 mcg/kg/min Rate Change 1608 Maliha Michael MD sodium chloride 0.9 % irrigation (mL) 2,000 mL Given 10/21/19 1508 Rony Latif CCP edited Comment: Cell Saver wash vasopressin 20 Units in sodium chloride 0.9% 100 mL (0.2 Units/mL) infusion (Units/min) 0.04 Units/min New Bag 10/21/19 1524 Jeremy Olson MD edited Dosing weight: 88.5 kg 0.06 Units/min Rate Change 1550 Jeremy Olson MD 0.04 Units/min Rate Change 1616 Maliha Michael MD protamine (mg) 10 mg Given 10/21/19 1534 Jeremy Olson MD 30 mg Given 1537 Jeremy Olson MD dexmedetomidine infusion (mcg/kg/hr) 0.6 mcg/kg/hr New Bag 10/21/19 1618 Maliha Michael MD Dosing weight: 88.5 kg insulin regular (Units) 3 Units Given 10/21/19 1607 Maliha Michael MD glycopyrrolate (mg) 0.4 mg Given 10/21/19 1639 Maliha Michael MD neostigmine injection 1 mg/mL (mg) 2 mg Given 10/21/19 1639 Maliha Michael MD Lactated Ringer's (LR) infusion (mL) Rate Verify 10/21/19 1046 Jeremy Olson MD Dosing weight: 88.5 kg albumin human bottle 5 % (mL) New Bag 10/21/19 1553 Maliha Michael MD 500 mL Stopped 1619 Maliha Michael MD Events Date Time Event 10/21/2019 0958 Ready for Procedure 1046 Anesthesia Start 1046 Patient in Room 1047 Start Data Collection 1055 Induction The patient was reevaluated immediately before moderate or deep sedation use and before anesthesia induction. 1100 Intubation 1100 Perfusion/Pump Standby 1104 JASON placed 1140 Anesthesia Ready 1148 Procedure Start 1149 Incision Start 1255 Cell Saver Start 1258 Lungs Down 1258 Sternotomy 1600 Cell Saver Stop 1610 Sternum closed 1620 Procedure Finish 1632 JASON Removed Cosigned by Hosea Patricia MD at 10/24/2019 7:10 AM BREAKING MACHINE OPERATOR KING MACHINE OPERATOR KING MACHINE OPERATOR documented in this encounter Plan of Treatment Not on file documented as of this encounter Procedures Procedure Name Priority Date/Time Associated Diagnosis Comments CT AN PROCEDURE PLACEHOLDER Routine 10/21/2019 12:30 PM BREAKING MACHINE OPERATOR ANESTHESIA ARTERIAL LINE PLACEMENT Routine 10/21/2019 12:08 PM BREAKING MACHINE OPERATOR ANESTHESIA INTUBATION Routine 10/21/2019 12:07 PM BREAKING MACHINE OPERATOR documented in this encounter Results * CT AN PROCEDURE PLACEHOLDER (10/21/2019 12:30 PM BREAKING MACHINE OPERATOR) Anatomical Region Laterality Modality Other Narrative 10/21/2019 12:30 PM BREAKING MACHINE OPERATOR Zack Felton MD PhD ? 10/31/2019 ??1:45 PM JASON Date/time: 10/21/2019 11:00 AM Staff: Supervising anesthesiologist: Zack Felton MD PhD Performed by: Anesthesiologist: Zack Felton MD PhD Preprocedure checklist: patient identified, procedure contraindications assessed, procedure consent, risks, benefits and alternatives discussed, monitors and equipment checked, timeout performed and JASON probe inserted into esophagus using lubricating jelly General procedure Information: Reason for procedure/indications: assessment of ascending aorta Performed: personally Procedure performed at surgeon's request: yes Results discussed with surgeon: yes Images submitted to archive: ??yes Patient location: OR Intubated: yes Bite blocked placed: yes Probe Insertion: easy Complications: no Probe type: adult Modalities: 2D imaging, continuous wave Doppler, pulsed wave Doppler and color Doppler Billing information: Physician requesting echo: Azar Lara MD CPT code: JASON placement and diagnostic exam, non-congenital (27339) ICD code(s) for medical necessity: I70.0 - Atherosclerosis of aorta Echocardiographic and doppler measurements: Ventricles: Left ventricle: Cavity size: normal Hypertrophy: yes Thrombus: no Global function: normal LVEF%: normal Right ventricle: Cavity size: normal Hypertrophy: no Thrombus: no Global function: normal RVEF%: normal Interventricular septum: normal Regional function: 1- Basal anteroseptal: normal 2- Basal anterior: normal 3- Basal anterolateral: normal 4- Basal inferolateral: normal 5- Basal inferior: normal 6- Basal inferoseptal: normal 7- Mid anteroseptal: normal 8- Mid anterior: normal 9- Mid anterolateral: normal 10- Mid inferolateral: normal 11- Mid inferior: normal 12- Mid inferoseptal: normal 13- Apical anterior: normal 14- Apical lateral: normal 15- Apical inferior: normal 16- Apical septal: normal 17- [place]: normal Valves: Aortic Valve: Annulus: normal Leaflet morphology: normal Leaflet motion: normal Stenosis: none Regurgitation: mild and moderate Mitral valve: Annulus: normal Leaflet morphology anterior: normal Leaflet morphology posterior: normal Leaflet motion anterior: normal Leaflet motion posterior: normal Stenosis: none Regurgitation: mild Tricuspid valve: Annulus: normal Leaflet morphology: normal Leaflet motion: normal Stenosis: none Regurgitation: none Pulmonic valve: Annulus: normal Stenosis: none Regurgitation: trace Aorta: Ascending aorta: Size: normal Dissection: no Plaque thickness(mm): 0-3 Plaque mobile: no Aortic arch: Size: normal Dissection: no Plaque thickness(mm): 0-3 Plaque mobile: no Descending aorta: Size: normal Dissection: no Plaque thickness(mm): >3 Plaque mobile: no Atria: Right atrium: Size: normal Spontaneous echo contrast: no Thrombus: no Mass: no Left atrium: Size: dilated Spontaneous echo contrast: no Thrombus: no Mass: no Left atrial appendage: normal Diastolic function and other findings: Diastolic function: grade I dysfunction Pericardium: normal Left pleural effusion: none Right pleural effusion: normal Pulmonary venous flow: normal Pre-procedure JASON exam summary: Normal RV/LV systolic function. LVH. LV diastolic dysfunction c/w impaired relaxation. Mild-moderate central AI. Mild MR. No significant atherosclerosis of ascending aorta & aortic arch. No thrombus seen in DINA. No PFO by color Doppler. Attestation Statement: By signing this report the attending anesthesiologist certifies that he or she has personally reviewed and interpreted the echocardiogram and has reviewed and or edited and agrees with the written comments contained within the report. us Zack Felton MD PhD ANESTHESIA ORDERABLE S Edited Result - Final * Arterial Line (10/21/2019 12:08 PM BREAKING MACHINE OPERATOR) Jeremy Joseph MD - 10/21/2019 12:08 PM BREAKING MACHINE OPERATOR Jeremy Olson MD ? 10/21/2019 12:09 PM Arterial Line Patient location: pre-op holding Indication: continuous blood pressure monitoring and blood sampling needed Staff: Supervising provider: Zack Felton MD PhD Placed by: Resident: Jeremy Olson MD Procedure prep: Prep solution: chlorhexadine/alcohol Prep: provider hat/mask, sterile gloves, sterile drape and sterile probe cover Skin infiltrated with lidocaine 1%: yes Arterial line: Catheter size: 20 gauge Catheter length: 1 and 3/8 inch Catheter type: wire-guided catheter Seldinger technique: yes Laterality: left Site: radial artery Line secured: tape and Tegaderm Results: good waveform Number of attempts: 2 Assessment: Events: patient tolerated procedure well with no complications us Zack Felton MD PhD ANESTHESIA ORDERABLE S Final Result * Airway (10/21/2019 12:07 PM BREAKING MACHINE OPERATOR) Jeremy Joseph MD - 10/21/2019 12:07 PM BREAKING MACHINE OPERATOR Jeremy Olson MD ? 10/21/2019 12:08 PM Airway Patient location: OR Urgency: elective Indications for airway management: anesthesia and airway protection Difficult airway: no Staff: Supervising provider: Zack Felton MD PhD Placed by: Resident: Jeremy Olson MD Emergent airway documentation: Risks and benefits discussed: yes Consent obtained: yes Consent given by: patient and parent Airway prep: Preoxygenated: yes Patient position: sniffing Mask difficulty assessment: 2 - vent by mask + OA or adjuvant Spontaneous ventilation during airway: absent Sedation level during airway: GA Final airway details: Final airway type: endotracheal airway Tube type: ETT ETT size: 7.5 mm Cuffed: yes Technique used for successful ETT placement: video laryngoscopy Devices/Methods used in placement: intubating stylet Insertion site: oral Blade type: Valerie Video blade type: Conley Blade size: 3 Cormack-Lehane (video): grade IIb - view of arytenoids or posterior of glottis only Cuff inflated with: air Placement verified by: auscultation Airway secured with: silk tape Number of attempts: 1 us Zack Felton MD PhD ANESTHESIA ORDERABLE S Final Result documented in this encounter Visit Diagnoses Not on filedocumented in this encounter Administered Medications Inactive Administered Medications - up to 3 most recent administrations Medication Order MAR Action Action Date Dose Rate Site albumin 5 % bottle intravenous, Continuous PRN, Starting on Thu10/21/19 at 1553, Anesthesia Intra-op New Bag 10/21/2019 4:28 PM BREAKING MACHINE OPERATOR New Bag 10/21/2019 3:53 PM BREAKING MACHINE OPERATOR New Bag 10/21/2019 2:38 PM BREAKING MACHINE OPERATOR calcium chloride IV syringe intravenous, As needed, Starting on Thu10/21/19 at 1514, Anesthesia Intra-op Given 10/21/2019 3:17 PM BREAKING MACHINE OPERATOR 0.5 g Given 10/21/2019 3:14 PM BREAKING MACHINE OPERATOR 0.5 g ceFAZolin (ANCEF) injection intravenous, As needed, Starting on Thu10/21/19 at 1135, Anesthesia Intra-op Given 10/21/2019 3:32 PM BREAKING MACHINE OPERATOR 2,000 m g Given 10/21/2019 11:35 AM BREAKING MACHINE OPERATOR 2,000 mg citrate dextrose solution (ACD-A) infusion As needed, Starting on Thu10/21/19 at 1254, Anesthesia Intra-op Given 10/21/2019 12:54 PM BREAKING MACHINE OPERATOR 1,000 mL dexMEDEtomidine in 0.9% sodium chloride (PRECEDEX) 200 mcg/50 mL (4 mcg/mL) infusion (premix) Continuous PRN, Starting on Thu10/21/19 at 1618, Anesthesia Intra-op New Bag 10/21/2019 4:18 PM BREAKING MACHINE OPERATOR 0.6 mcg/kg/hr 13.28 mL/hr fentaNYL (SUBLIMAZE) preservative free injection intravenous, As needed, Starting on Thu10/21/19 at 1055, Anesthesia Intra-op Given 10/21/2019 4:06 PM BREAKING MACHINE OPERATOR 100 mcg Given 10/21/2019 12:46 PM BREAKING MACHINE OPERATOR 250 mcg Given 10/21/2019 12:45 PM BREAKING MACHINE OPERATOR 150 mcg glycopyrrolate (ROBINUL) injection Administer over 1 Minutes, As needed, Starting on Thu10/21/19 at 1639, Anesthesia Intra-op Given 10/21/2019 4:39 PM BREAKING MACHINE OPERATOR 0.4 mg heparin 1,000 unit/mL injection As needed, Starting on Thu10/21/19 at 1206, Anesthesia Intra-op Given 10/21/2019 1:39 PM BREAKING MACHINE OPERATOR 3,000 Units Given 10/21/2019 12:06 PM BREAKING MACHINE OPERATOR 6,000 Units insulin regular (HumuLIN R, NovoLIN R) injection As needed, Starting on Thu10/21/19 at 1607, Anesthesia Intra-op Given 10/21/2019 4:07 PM BREAKING MACHINE OPERATOR 3 Units Lactated Ringer's (LR) infusion 30 mL/hr, intravenous, Continuous, Starting on Thu10/21/19 at 1015, Pre-Op Rate/Dose Verify 10/21/2019 10:46 AM BREAKING MACHINE OPERATOR New Bag 10/21/2019 9:57 AM BREAKING MACHINE OPERATOR 30 mL/hr 30 mL/hr lidocaine PF (XYLOCAINE) 10 mg/mL (1 %) preservative free injection As needed, Starting on Thu10/21/19 at 1055, Anesthesia Intra-op Given 10/21/2019 10:55 AM BREAKING MACHINE OPERATOR 80 mg neostigmine (PROSTIGMIN) injection Administer over 3 Minutes, As needed, Starting on Thu10/21/19 at 1639, Anesthesia Intra-op Given 10/21/2019 4:39 PM BREAKING MACHINE OPERATOR 2 mg niCARdipine (CARDENE) injection intravenous, As needed, Starting on Thu10/21/19 at 1236, Anesthesia Intra-op, Indications: hypertensionIndications:hypertension Given 10/21/2019 1:51 PM BREAKING MACHINE OPERATOR 200 mcg Given 10/21/2019 1:49 PM BREAKING MACHINE OPERATOR 100 mcg Given 10/21/2019 1:47 PM BREAKING MACHINE OPERATOR 100 mcg niCARdipine in sodium chloride 0.9% (CARDENE) 25 mg/250 mL (0.1 mg/mL) infusion (premix) solution 0.5-2.5 mcg/kg/min ? 88.5 kg (26.55-132.75 mL/hr, rounded to 26.6-132.8 mL/hr), 100 mcg/mL, intravenous, Titrated, Starting on Thu10/21/19 at 1315, Until Thu10/21/19 at 1732, Indications: hypertension, Initial rate: 0.5 mcg/kg/min, Titrate: Up/Down, Titrate by: 0.5 mcg/kg/min, Every: 10 minutes, Goal: SBP, SBP Goal: Other (comment) / 120-140, RoutineIndications:hype rtension Rate/Dose Change 10/21/2019 2:00 PM BREAKING MACHINE OPERATOR 0.75 mcg/kg/min 39.8 mL/hr Rate/Dose Change 10/21/2019 1:51 PM BREAKING MACHINE OPERATOR 1 mcg/kg/min 53.1 mL/hr Restarted 10/21/2019 1:49 PM BREAKING MACHINE OPERATOR 0.5 mcg/kg/min 26.6 mL/h r norepinephrine (LEVOPHED) injection intravenous, As needed, Starting on Thu10/21/19 at 1505, Anesthesia Intra-op Given 10/21/2019 3:12 PM BREAKING MACHINE OPERATOR 32 mcg Given 10/21/2019 3:05 PM BREAKING MACHINE OPERATOR 32 mcg norepinephrine in dextrose 5% (LEVOPHED) 8,000 mcg/250 mL (32 mcg/mL) infusion (premix) 0.01-2 mcg/kg/min ? 88.5 kg (1.6594-331.875 mL/hr, rounded to 1.66-331.88 mL/hr), 32 mcg/mL, intravenous, Titrated, Starting on Thu10/21/19 at 1515, Until Thu10/21/19 at 1726, Indications: hypotension, Initial rate: 0.05 mcg/kg/min, Titrate: Up/Down, Titrate by: 0.01 mcg/kg/min, Every: 2 minutes, Goal: MAP, MAP Goal: 65-75 mmHg, RoutineIndications:hypo tension Rate/Dose Change 10/21/2019 4:55 PM BREAKING MACHINE OPERATOR 0.05 mcg/kg/min 8.3 mL/hr Rate/Dose Change 10/21/2019 4:43 PM BREAKING MACHINE OPERATOR 0.08 mcg/kg/min 13 .28 mL/hr Rate/Dose Change 10/21/2019 4:08 PM BREAKING MACHINE OPERATOR 0.05 mcg/kg/min 8. 3 mL/hr phenylephrine (JEAN-SYNEPHRINE) 0.5 mg/5 mL (100 mcg/mL) in sodium chloride 0.9% (premix) intravenous, As needed, Starting on Thu10/21/19 at 1319, Anesthesia Intra-op Given 10/21/2019 2:03 PM BREAKING MACHINE OPERATOR 100 mcg Given 10/21/2019 2:02 PM BREAKING MACHINE OPERATOR 100 mcg Given 10/21/2019 1:40 PM BREAKING MACHINE OPERATOR 100 mcg phenylephrine (JEAN-SYNEPHRINE) 5 mg/50 mL (100 mcg/mL) in sodium chloride 0.9% (premix) intravenous, Continuous PRN, Starting on Thu10/21/19 at 1257, Anesthesia Intra-op Rate/Dose Change 10/21/2019 2:32 PM BREAKING MACHINE OPERATOR 1 mcg/kg/min 53.1 mL/hr Rate/Dose Change 10/21/2019 2:22 PM BREAKING MACHINE OPERATOR 0.7 mcg/kg/min 37. 2 mL/hr Restarted 10/21/2019 2:17 PM BREAKING MACHINE OPERATOR 0.4 mcg/kg/min 21.2 mL/h r propofol (DIPRIVAN) IV intravenous, As needed, Starting on Thu10/21/19 at 1055, Anesthesia Intra-op Given 10/21/2019 10:55 AM BREAKING MACHINE OPERATOR 150 mg protamine injection As needed, Starting on Thu10/21/19 at 1534, Anesthesia Intra-op, Indications: Heparin ToxicityIndications:Heparin Toxicity Given 10/21/2019 3:37 PM BREAKING MACHINE OPERATOR 30 mg Given 10/21/2019 3:34 PM BREAKING MACHINE OPERATOR 10 mg rocuronium (ZEMURON) injection intravenous, As needed, Starting on Thu10/21/19 at 1055, Anesthesia Intra-op Given 10/21/2019 3:07 PM BREAKING MACHINE OPERATOR 20 mg Given 10/21/2019 1:34 PM BREAKING MACHINE OPERATOR 30 mg Given 10/21/2019 10:55 AM BREAKING MACHINE OPERATOR 100 mg sodium chloride 0.9 % irrigation As needed, Starting on Thu10/21/19 at 1508, Anesthesia Intra-op Given 10/21/2019 3:08 PM BREAKING MACHINE OPERATOR 2,000 mL vancomycin 1500 mg/515 mL in sodium chloride 0.9% (premix) Administer over 90 Minutes, As needed, Starting on Thu10/21/19 at 1100, Anesthesia Intra-op Given 10/21/2019 11:00 AM BREAKING MACHINE OPERATOR 1,500 mg vasopressin 20 Units in sodium chloride 0.9% 100 mL (0.2 Units/mL) infusion 0.01-0.06 Units/min (3-18 mL/hr), 0.2 Units/mL, intravenous, Titrated, Starting on Thu10/21/19 at 1600, Until Thu10/21/19 at 1718, Indications: hypotension, Initial rate: 0.04 units/min, Titrate: Up/Down, Titrate by: 0.01 units/min, Every: 5 minutes, Goal: MAP, MAP Goal: 65-75 mmHg, RoutineIndications:hypote nsion Rate/Dose Change 10/21/2019 4:16 PM BREAKING MACHINE OPERATOR 0.04 Units/min 12 mL/hr Rate/Dose Change 10/21/2019 3:50 PM BREAKING MACHINE OPERATOR 0.06 Units/min 18 mL/hr New Bag 10/21/2019 3:24 PM BREAKING MACHINE OPERATOR 0.04 Units/min 12 mL/hr documented in this encounter Care Teams Utility Sales Representative Relationship Specialty Start Date End Date Abbe Nails MD [address] [place] [address] PCP - General 10/17/19 11/01/19 Zachary Giron MD Surgeon Vascular Surgery 10/12/19 documented as of this encounter
--- OUTSIDE RECORDS SUMMARY | 2024-09-08 08:24 | XMS_ITS | Encounter Summary ---
Author Organization [facility] Address [address] [place] [address] Phone Care Team Providers Care Hplc Chemist Name Role Phone Zachary Giron MD Unavailable Abbe Nails MD Primary Care Provider [phone] Encounter Details Date Type Department Care Team (Late st Contact Info) Description 10/18/2019 Telephone [facility] Surgery [address] [facility] Advanced Medicine 8th [place] [address] [place] [address] Azar Lara MD [address] [place] [address] Social History Tobacco Use Types Packs/Day Years Used Date Smoking Tobacco: Former Cigarettes Smokeless Tobacco: Never Alcohol Use Standard Drinks/Week Comments Yes 0 (1 standard drink = 0.6 oz pur e alcohol) Comments Unknown Sex and Gender Information Value Date Recorded Sex Assigned at Not on file Legal Sex Female 3:40 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 Callers Name: Italia Sexton Callback: [phone] Attending: Bree Cardiothoracic Attending: Jane Cardiothoracic Fellow: LAB TECHNICIAN documented in this encounter Plan of Treatment Not on file documented as of this encounter Visit Diagnoses Not on filedocumented in this encounter Care Teams Hplc Chemist Relationship Specialty Start Date End Date Abbe Nails MD [address] [place] [address] PCP - General 10/17/19 11/01/19 Zachary Giron MD Surgeon Vascular Surgery 10/12/19 documented as of this encounter
--- OUTSIDE RECORDS SUMMARY | 2024-09-08 08:25 | XMS_ITS | Encounter Summary ---
Author Organization [facility] Address [address] [place] [address] Care Team Providers Care Leather Sponger Name Role Phone Abbe Nails MD Primary Care Provider [phone] Encounter Details Date Type Department Care Team (Late st Contact Info) Description 10/11/2019 Orders Only Neurology Adrien Downing MD PhD [address] 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 Adrien Downing MD PhD Neurology - PGY3 Y COOKER HELPER documented in this encounter Plan of Treatment Not on file documented as of this encounter Visit Diagnoses Diagnosis Syncope and collapse- Primary documented in this encounter Care Teams Leather Sponger Relationship Specialty Start Date End Date Abbe Nails MD [address], [place] [id number] PCP - General 12/05/16 10/13/19 documented as of this encounter
--- OUTSIDE RECORDS SUMMARY | 2024-09-08 08:25 | XMS_ITS | Encounter Summary ---
Author Organization [facility] Address [address] [place] [address] Care Team Providers Care Beauty Sales Advisor Name Role Phone Abbe Nails MD Primary Care Provider [phone] Encounter Details Date Type Department Care Team (Late st Contact Info) Description 07/14/2018 Telephone [facility] [address] [facility] [address] [place] [address] Marco A Antoine MD [address] [facility] [address] [place] [address] Social History Tobacco Use Types Packs/Day Years Used Date Smoking Tobacco: Former Cigarettes Smokeless Tobacco: Never Alcohol Use Standard Drinks/Week Comments Yes 0 (1 standard drink = 0.6 oz pur e alcohol) Comments Unknown Sex and Gender Information Value Date Recorded Sex Assigned at Not on file Legal Sex Female 3:40 AM EXPERIMENTAL 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 90 tablet 1 07/14/2018 10/05/2018 documented in this encounter Miscellaneous Notes * Telephone Encounter - Mimi Hunt RN - 07/14/2018 1:33 PM EXPERIMENTAL PSYCHOLOGIST Refill sent per request. RIMENTAL PSYCHOLOGIST * Telephone Encounter - Kandi Kapadia - 07/14/2018 12:37 PM CST Pt called for refills on hydrochlorothiazide 25 mg tabs. Wants rx filled at [facility]. Pharmacy phone [phone] RIMENTAL PSYCHOLOGIST documented in this encounter Plan of Treatment Not on file documented as of this encounter Visit Diagnoses Not on filedocumented in this encounter Discontinued Medications Medication Sig Discontinue Reason Start Date End Da te hydroCHLOROthiazide (HYDRODIURIL) 25 mg tablet Take 1 tablet (25 mg total) by mouth daily. Reorder 04/07/2018 07/14/2018 documented as of this encounter Care Teams Beauty Sales Advisor Relationship Specialty Start Date End Date Abbe Nails MD [address] [place] [address] PCP - General 12/05/16 10/13/19 documented as of this encounter
--- OUTSIDE RECORDS SUMMARY | 2024-09-08 08:25 | XMS_ITS | Encounter Summary ---
Author Organization [facility] Address [address] [place] [address] Phone Care Team Providers Care Locate Technician Name Role Phone Abbe Nails MD Primary Care Provider Zachary Giron MD Unavailable Abbe Nails MD Primary Care Provider Azar Lara MD Unavailable Abbe Nails MD Primary Care Provider [phone] Perez Alexander DO Primary Care Provider Encounter Details Date Type Department Care Team (Latest Contact Info) Description 02/21/2017 Orders Only [facility] CONVERSION Scanning, Provider Social History Tobacco Use Types Packs/Day Years Used Date Smoking Tobacco: Former Alcohol Use Standard Drinks/Week Comments Yes 0 (1 standard drink = 0.6 oz pur e alcohol) Comments Unknown Sex and Gender Information Value Date Recorded Sex Assigned at Not on file Legal Sex Female 3:40 AM UMBRELLA TIPPER HAND Gender Identity Not on file Sexual Orientation Not on file documented as of this encounter Plan of Treatment Not on file documented as of this encounter Procedures Procedure Name Priority Date/Time Associated Diagnosis Comments VASCULAR LABORATORY REPORT 02/21/2017 1:09 AM CDT documented in this encounter Results * VASCULAR LABORATORY REPORT (02/21/2017 1:09 AM CDT) Anatomical Region Laterality Modality Ultrasound us Provider Scanning CV VASCULAR PROCEDURES Final R esult documented in this encounter Visit Diagnoses Not on filedocumented in this encounter Care Teams Locate Technician Relationship Specialty Start Date End Date Abbe Nails MD [address] [place] [address] PCP - General 12/05/16 10/13/19 Abbe Nails MD [address] [place] [address] PCP - General 10/17/19 11/01/19 Abbe Nails MD [address] [place] [address] PCP - General 11/03/19 06/30/22 Perez Alexander DO [address] [place] [address] PCP - General Family Medicine 07/01/22 Zachary Giron MD [address] [place] [address] Surgeon Vascular Surgery 10/12/19 Azar Lara MD [address] [place] [address] Surgeon Cardiothoracic Surgery 10/27/19 documented as of this encounter
--- OUTSIDE RECORDS SUMMARY | 2024-09-08 08:25 | XMS_ITS | Encounter Summary ---
Author Organization [facility] Care Team Providers Care Decorator Street And Building Name Role Phone Abbe Nails MD Primary Care Provider [phone] Encounter Details Date Type Department Care Team (Latest Contact Info) Description 10/10/2019 Travel Social History Tobacco Use Types Packs/Day Years Used Date Smoking Tobacco: Former Cigarettes Smokeless Tobacco: Never Alcohol Use Standard Drinks/Week Comments Yes 0 (1 standard drink = 0.6 oz pur e alcohol) Comments Unknown Sex and Gender Information Value Date Recorded Sex Assigned at Not on file Legal Sex Female 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
--- OUTSIDE RECORDS SUMMARY | 2024-09-08 08:25 | XMS_ITS | Encounter Summary ---
Author Organization [facility] Healthcare Address [address] [place] [address] Care Team Providers Care Sourcing Coordinator Name Role Phone Abbe Nails MD Primary Care Provider Encounter Details Date Type Department Care Team (Late st Contact Info) Description 10/02/2019 Documentation Vascular Surgery Zachary Giron MD [address] [facility] [address] [place] [address] Social History Tobacco Use Types Packs/Day Years Used Date Smoking Tobacco: Former Cigarettes Smokeless Tobacco: Never Alcohol Use Standard Drinks/Week Comments Yes 0 (1 standard drink = 0.6 oz pur e alcohol) Comments Unknown Sex and Gender Information Value Date Recorded Sex Assigned at Not on file Legal Sex Female 3:40 AM LINE WALKER Gender Identity Not on file Sexual Orientation Not on file documented as of this encounter Progress Notes * Zachary Giron MD - 10/02/2019 6:28 PM CST I spoke to Mrs. Saenz by telephone today. She has been doing quite well since that solitary episode in March of 2019. No recurrent symptoms of TIA or stroke. She occasionally has some mild orthostatics symptoms when getting up from a chair, but these are very transient in nature. She had been seen by Dr. Rianna Arredondo after that episode, who did not feel that it was goodwill representative of a TIA.She thought it was more likely due to the patient's antihypertensive medications and medical marijuana use. 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 There is alsoa significant right internal carotid artery stenosis and significant plaque at the origin of the left common carotid artery. There is significant beam artifact from the contrast in the venous system on the CTA. Looking back to her arch angiogram in 2016 provides a better image of the great vessels.I would note that she suffered an embolic left MCA stroke during selective catheterization of the left common carotid artery at [facility], so I would be reluctant to repeat any selective catheterization angiograms prior to surgical intervention. We again discussed surgical intervention versus ongoing conservative management. The surgical intervention would consist of sternotomy with bypass from the ascending aorta to the origins of the rightsubclavian artery, right common carotid artery, and left common carotid artery. I would do this with the assistance of one of our cardiac surgeons. In staged fashion, I would also address the right carotid bifurcation disease. She understands that there is a risk of stroke and with both medical management and surgical intervention. At this point, having been symptom free for over 6 months, she wishes to continue medical management. Her has some surgical care that will take place in the early spring, and she will contact my office after his medical issues have been addressed to schedule a follow-up appointment with me. We will check a carotid duplex scan at that appointment. She knows to seek immediate medical attention for any symptoms of TIA or stroke, and to also subsequently notify me of those symptoms. WALKER documented in this encounter Plan of Treatment Not on file documented as of this encounter Visit Diagnoses Not on filedocumented in this encounter Care Teams Sourcing Coordinator Relationship Specialty Start Date End Date Abbe Nails MD [address] [place] [address] PCP - General 12/05/16 10/13/19 documented as of this encounter
--- OUTSIDE RECORDS SUMMARY | 2024-09-08 08:25 | XMS_ITS | Encounter Summary ---
Author Organization [facility] Address [address] [place] [address] Phone Care Team Providers Care Superintendent Production Name Role Phone Abbe Nails MD Primary Care Provider [phone] Encounter Details Date Type Department Care Team (Late st Contact Info) Description 05/06/2019 12:00 PM CDT Office Visit [facility] Stroke [address] 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 Saenz is a 73-year-old right-handed woman who is here for follow-up of bilateral carotid stenosis, status post a recent episode of loss of awareness. HISTORY OF PRESENT ILLNESS: Since her last visit, the patient reported an episode to Dr. Giron's office where she had loss of awareness for 10 to 15 seconds with visual problems immediately prior. She states these were the same spots she typically has with her anterior basement membrane dystrophy but that it was worse thanusual. She states that she felt bad for approximately 1 hour that followed with no energy. She reports that she has had dizziness for a long time whenever she extends her head. She reported this at her last visit and states that this is the same. Otherwise, she denies new episodes of weakness, numbness, vision loss, difficulty speaking, or difficulty ambulating. She is performing all ADLs at home. Based on the available records and discussion with her family, it appears she was awake and alert during the entire episode but that she had a tendency to gasp for air. The patient states that she just does not remember much about the gasping for air. Her states that her pulse was 40 when EMS arrived. He denies facial weakness or other weakness at that time. They deny that she has been taking narcotics recently for pain and has only been taking an occasional Tylenol for arthritis. She reports she is taking 3 medications per day along with Wellbutrin, Zyrtec, and Tylenol PM every day.They also state that she uses medical marijuana which is a combination of THC and cannabidiol. Theydeny that she had unusual blinking, picking at her clothes, or chewing during this episode. Her states that she snores, but they deny excessive daytime somnolence or witnessed apneas. EKG revealed a prolonged QTc of 463. ALLERGIES: NAPROXEN, PENICILLIN, SULFA. CURRENT MEDICATIONS: Reviewed in [employer]. PAST MEDICAL, FAMILY, SOCIAL HISTORY: Reviewed in Epic. REVIEW OF SYSTEMS: All other systems negative except as per HPI. PHYSICAL EXAMINATION: VITAL SIGNS: Blood pressure 106/62 in the right arm, 175/68 in the left arm. Pulse 56. Weight 197 pounds. GENERAL: The patient is well dressed and well groomed, in no apparent distress. NEUROLOGICAL EXAMINATION: MENTAL STATUS: Awake and alert with fluent speech and intact comprehension. Attention is normal. Recent and remote memory are intact. Fund of knowledge is normal. GAIT: This is narrow based with normal heel and toe walks. CRANIAL NERVES: Visual corcoran are full to bedside confrontation. There is no ptosis. Extraocular movements are conjugate without nystagmus. Facial movements are symmetric. Speech is clear without dysarthria or dysphonia. Tongue protrusion is midline. MOTOR: There is no fix or pronator drift. Power is 5/5 proximally and distally in all extremities. Bulk and tone are normal. COORDINATION: This is intact to [id number] and rapid alternating movements throughout. REFLEXES: These are 2 and symmetric at the biceps, triceps, brachioradialis, knees, and ankles. ASSESSMENT: 1. History of prior left middle cerebral artery stroke. 2. Hypertension. 3. 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 4. Episode of possible loss of awareness with low pulse rate and no obvious lateralizing features. It is not clear to me that this episode represents TIA or stroke. I would be more concerned about polypharmacy given the patient's 3 blood pressure medications and multiple medications with orthostasis as a side effect combined with medical marijuana. PLAN: 1. PCP should continue efforts to maintain blood pressure less than 130/80 in accordance with current guidelines. This may be complicated by the significant asymmetry of her blood pressure recordingsin her right arm compared to her left. 2. PCP should continue high-intensity statin therapy in accordance with 2018 guidelines, with LDL goal less than 70. 3. Patient should continue aspirin daily for stroke prevention. 4. She is currently on dual-antiplatelet therapy presumably for her other vascular disease. 5. It is not clear that an MRI or an EEG would post exchange manager at this time. I would have a low threshold to order these tests should the patient's symptoms recur once she has had a more complete evaluation by her wax engraver particularly in the context of a prolonged QTc. 6. I would like to see the patient back in my clinic in approximately 6 months in order to review symptom pattern and determine if additional medical management or diagnostic testing is necessary at that time. Thank you for allowing me to participate in the care of this patient. Please do not hesitate to contact me with additional questions or concerns. ELECTRONICALLY SIGNED - 06/04/2019 01:17 PM Rianna Arredondo MD Professor of Neurology [facility] RV/tm documented in this encounter Plan of Treatment Not on file documented as of this encounter Visit Diagnoses Diagnosis History of ischemic left MCA stroke- Primary Benign hypertension Essential hypertension, benign Dyslipidemia Other and unspecified hyperlipidemia Bilateral carotid artery stenosis Occlusion and stenosis of carotid artery without mention of cerebral infarction documented in this encounter Care Teams Superintendent Production Relationship Specialty Start Date End Date Abbe Nails MD [address] [place] [address] PCP - General 12/05/16 10/13/19 documented as of this encounter
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
--- OUTSIDE RECORDS SUMMARY | 2024-09-08 08:25 | XMS_ITS | Encounter Summary ---
Author Organization [facility] Address [address] [facility] [address] [place] [address] Care Team Providers Care Plant Packer Name Role Phone Abbe Nails MD Primary Care Provider [phone] Encounter Details Date Type Department Care Team (Late st Contact Info) Description 04/11/2019 Telephone [facility] [address] [facility] [address] [place] [address] Marco A Antoine MD [address] [facility] [address] [place], [place] [id number] Social History Tobacco Use Types Packs/Day Years Used Date Smoking Tobacco: Former Cigarettes Smokeless Tobacco: Never Alcohol Use Standard Drinks/Week Comments Yes 0 (1 standard drink = 0.6 oz pur e alcohol) Comments Unknown Sex and Gender Information Value Date Recorded Sex Assigned at Not on file Legal 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 Also let her know she should be fine to keep the monitor on when getting the ultrasound but to bring an extra patch with her just in case they need her to take it off. Patient agreed with plan. * Telephone Encounter - Kandi Kapadia - 04/11/2019 12:48 PM CDT Pt said she will be short patches because she had to use 2 the other day. Wants to know if she should turn in the monitor 5 days earlier or what she should do. Has a carotid ultrasound scheduled 04/18 and wants to know if she can leave monitor on. cb [phone] documented in this encounter Plan of Treatment Not on file documented as of this encounter Visit Diagnoses Not on filedocumented in this encounter Care Teams Plant Packer Relationship Specialty Start Date End Date Abbe Nails MD [address] [place] [address] PCP - General 12/05/16 10/13/19 documented as of this encounter
--- OUTSIDE RECORDS SUMMARY | 2024-09-08 08:25 | XMS_ITS | Encounter Summary ---
Author Organization [facility] Address [address] [facility] [address] [place] [address] Phone Care Team Providers Care Remedial Teacher Name Role Phone Abbe Nails MD Primary Care Provider Encounter Details Date Type Department Care Team (Late st Contact Info) Description 02/03/2018 Orders Only [facility] Surgery [address] [facility] 1st Floor [address] [place] [address] Nafisa Norris ASSISTANT PROFESSOR OF COMMUNICATION [address] [facility] [address] [place], [place] [id number] Social History Tobacco Use Types Packs/Day Years Used Date Smoking Tobacco: Former Alcohol Use Standard Drinks/Week Comments Yes 0 (1 standard drink = 0.6 oz pur e alcohol) Comments Unknown Sex and Gender Information Value Date Recorded Sex Assigned at Not on file Legal Sex Female 3:40 AM MANUAL QA TESTER Gender Identity Not on file Sexual Orientation Not on file documented as of this encounter Plan of Treatment Not on file documented as of this encounter Visit Diagnoses Not on filedocumented in this encounter Care Teams Remedial Teacher Relationship Specialty Start Date End Date Abbe Nails MD [address] [address] PCP - General 12/05/16 10/13/19 documented as of this encounter
--- OUTSIDE RECORDS SUMMARY | 2024-09-08 08:25 | XMS_ITS | Encounter Summary ---
Author Organization [facility] Address [address] [place] [address] Phone Care Team Providers Care Audiology Doctor Name Role Phone Abbe Nails MD Primary Care Provider [phone] Reason for Visit * Diagnostic Imaging (Routine) - Closed Specialty Diagnoses / Procedures Referred By Khadijah ricks Referred To Contact Diagnoses Bilateral carotid artery stenosis Procedures US Carotids Duplex Bilateral Nafisa Norris NP Phone: tel: fax: [facility] (All Locations) Referral ID Status Reason Start Date Expiration Date Visits Re quested Visits Authorized [id number] Closed 02/03/2018 08/24/2019 1 1 Encounter Details Date Type Department Care Team (Latest Contact Info) Description 04/12/2018 11:00 AM CDT Ancillary Procedure [facility] Vascular Lab at the [facility] [address] [place] [address] Advanced Medicine 8th [place] [address] [place] [id number] Bilateral carotid artery stenosis Social History Tobacco Use Types Packs/Day Years Used Date Smoking Tobacco: Former Cigarettes Smokeless Tobacco: Never Alcohol Use Standard Drinks/Week Comments Yes 0 (1 standard drink = 0.6 oz pur e alcohol) Comments Unknown Sex and Gender Information Value Date Recorded Sex Assigned at Not on file 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 Gender Identity Not on file Sexual Orientation Not on file documented as of this encounter Plan of Treatment Not on file documented as of this encounter Procedures Procedure Name Priority Date/Time Associated Diagnosis Comments US CAROTIDS DUPLEX BILATERAL Schedule Routine, Read Routine (OP Routine) 04/12/2018 10:26 AM CDT Bilateral carotid artery stenosis documented in this encounter Results * US Carotids Duplex Bilateral (04/12/2018 10:26 AM CDT) Anatomical Region Laterality Modality Vascular Bilateral Ultrasound 04/12/2018 9:50 AM CDT Narrative 04/13/2018 10:18 PM CDT [facility] - Department of Vascular Surgery, Vascular Laboratory [address] [place] [address] Carotid Duplex Ultrasound Report Patient Name: SUMA SAENZ K : 1945 (72y 3m) Study Date: 04/12/2018 9:50:24 AM Gender: F Tech: Location: Ref.Physician: NAFISA NORRIS Height(Inch): BSA: Weight(LB): Quality: Adequate Order Physician: NAFISA NORRIS Procedures: Carotid Report: Carotid duplex examination of the extracranial arteries was performed using 2D, color and spectral Doppler. Indications: Bilateral carotid artery stenosis. Measurements: Right Carotid ? Left Carotid ? Measurement ?Value ?Units ? Measurement ?Value ? Units ? RT Prox CCA PSV ?70.80 ?cm/sec ?LT Prox CCA PSV ?109.00 ?cm/sec ? RT Distal CCA PSV ?62.10 ?cm/sec ?LT Distal CCA PSV ?67.60 ? cm/sec ? RT Prox ICA PSV ?88.20 ?cm/sec ?LT Prox ICA PSV ?74.50 ? cm/sec ? RT Prox ICA EDV ?43.50 ?cm/sec ?LT Prox ICA EDV ?29.80 ? cm/sec ? RT Mid ICA PSV ? 64.60 ?cm/sec ?LT Mid ICA PSV ? 69.80 ? cm/sec ? RT Mid ICA EDV ? 26.70 ?cm/sec ?LT Mid ICA EDV ? 29.00 ? cm/sec ? RT Distal ICA PSV ?59.60 ?cm/sec ?LT Distal ICA PSV ?74.50 ? cm/sec ? RT Distal ICA EDV ?32.30 ?cm/sec ?LT Distal ICA EDV ?36.10 ? cm/sec ? RT ECA PSV ? 80.10 ?cm/sec ?LT ECA PSV ? 156.00 ?cm/sec ? RT ICA/CCA ? 1.42 ? ratio ? LT ICA/CCA ? 1.1 ? ratio ? RT VERT PSV ?10.60 ?cm/sec ?LT VERT PSV ?91.70 ? cm/sec ? Findings: Performing Reports Analyst: Christal Aiken RVT. Rt Common Carotid Artery: The plaque in the right CCA appears to be heterogeneous and smooth. Atherosclerotic changes of the right common carotid artery with no hemodynamically significant Doppler findings. Rt Internal Carotid Artery: The plaque in the right internal carotid artery appears to be heterogeneous and irregular. Atherosclerotic changes of the right internal carotid artery without hemodynamically significant Doppler findings. <50% stenosis. Rt External Carotid Artery: Patent right external carotid artery with evidence of atherosclerotic disease present. Rt Vertebral Artery: Bidirectional flow in the right vertebral artery maybe consistent with ipsilateral subclavian artery stenosis or occlusion. Lt Common Carotid Artery: The plaque in the left CCA appears to be heterogeneous and smooth. Atherosclerotic changes of the left common carotid [...] vertebral artery is patent with antegrade flow. Conclusions: The right internal carotid artery disease is consistent with a less than 50% stenosis. The left internal carotid artery disease is consistent with a less than 50% stenosis. Bidirectional flow noted in the right vertebral artery. 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 Normal, antegrade flow is noted in the left vertebral artery. History: Former smoker, carotid disease. Previous Studies: Previous carotid ultrasound on 02/16/17. Disclaimer: The signing physician has reviewed all images pertaining to this test. These images and this report will be retained in the patient chart by the Vascular Laboratory for the legally required time period. This chart constitutes the legal record of any testing performed. Electronically Signed By: Zachary Giron MD [facility] 2018-04-13 22:18:01 CDT CC: CC: Procedure Note Zachary Giron MD - 04/13/2018 [facility] - Department of Vascular Surgery,Vascular Laboratory [address] [place] [address] Carotid Duplex Ultrasound Report Patient Name: SUMA SAENZ KPatient ID: [id number] : 1945 (72y 3m)Study Date: 04/12/2018 9:50:24 AM Gender: FAccession #: [id number] Tech: ACLocation: Ref.Physician: CHRIS, DAWNHeight(Inch): BSA: Weight(LB): Quality: AdequateOrder Physician: NAFISA NORRIS Procedures: Carotid Report: Carotid duplex examination of the extracranial arteries was performedusing 2D, color and spectral Doppler. Indications: Bilateral carotid artery stenosis. Measurements: Right Carotid Left Carotid Measurement Value Units Measurement ValueUnits RT Prox CCA PSV 70.80 cm/sec LT Prox CCA PSV 109.00cm/sec RT Distal CCA PSV 62.10 cm/sec LT Distal CCA PSV 67.60cm/sec RT Prox ICA PSV 88.20 cm/sec LT Prox ICA PSV 74.50cm/sec RT Prox ICA EDV 43.50 cm/sec LT Prox ICA EDV 29.80cm/sec RT Mid ICA PSV 64.60 cm/sec LT Mid ICA PSV 69.80cm/sec RT Mid ICA EDV 26.70 cm/sec LT Mid ICA EDV 29.00cm/sec RT Distal ICA PSV 59.60 cm/sec LT Distal ICA PSV 74.50cm/sec RT Distal ICA EDV 32.30 cm/sec LT Distal ICA EDV 36.10cm/sec RT ECA PSV 80.10 cm/sec LT ECA PSV 156.00cm/sec RT ICA/CCA 1.42 ratio LT ICA/CCA 1.1ratio RT VERT PSV 10.60 cm/sec LT VERT PSV 91.70cm/sec Findings: Performing Reports Analyst: Christal Aiken RVT. Rt Common Carotid Artery: The plaque in the right CCA appears to be heterogeneous and smooth.Atherosclerotic changes of the right common carotid artery with no hemodynamicallysignificant Doppler findings. Rt Internal Carotid Artery: The plaque in the right internal carotid artery appears to beheterogeneous and irregular. Atherosclerotic changes of the right internal carotid arterywithout hemodynamically significant Doppler findings. <50% stenosis. Rt External Carotid Artery: Patent right external carotid artery with evidence of atheroscleroticdisease present. Rt Vertebral Artery: Bidirectional flow in the right vertebral artery maybe consistent withipsilateral subclavian artery stenosis or occlusion. Lt Common Carotid Artery: The plaque in the left CCA appears to be heterogeneous and smooth.Atherosclerotic changes of the left common carotid artery with no hemodynamicallysignificant Doppler findings. Lt Internal Carotid Artery: The plaque in the left internal carotid artery appears to beheterogeneous, calcified and irregular. Atherosclerotic changes of the left internal carotid arterywithout hemodynamically significant Doppler findings. <50% stenosis. Lt External Carotid Artery: Patent left external carotid artery with evidence of atheroscleroticdisease present. Lt Vertebral Artery: The left vertebral artery is patent with antegrade flow. Conclusions: The right internal carotid artery disease is consistent with a less than50% stenosis. The left internal carotid artery disease is consistent with a less than50% stenosis. Bidirectional flow noted in the right vertebral artery. This finding maybeconsistent with subclavian steal syndrome. Normal, antegrade flow is noted in the left vertebral artery. History: Former smoker, carotid disease. Previous Studies: Previous carotid ultrasound on 02/16/17. Disclaimer: The signing physician has reviewed all images pertaining to this test.These images and this report will be retained in the patient chart by the VascularLaboratory for the legally required time period. This chart constitutes the legal record ofany testing performed. Electronically Signed By: Zachary Giron MD [facility] 2018-04-13 22:18:01 CDT CC: CC: Nafisa Norris DEVELOPMENT OFFICER IMG US PROCEDURES Final Result documented in this encounter Visit Diagnoses Diagnosis Bilateral carotid artery stenosis Occlusion and stenosis of carotid artery without mention of cerebral infarction documented in this encounter Care Teams Audiology Doctor Relationship Specialty Start Date End Date Abbe Nails MD [address] [address] PCP - General 12/05/16 10/13/19 documented as of this encounter
--- OUTSIDE RECORDS SUMMARY | 2024-09-08 08:25 | XMS_ITS | Encounter Summary ---
Author Organization [facility] Address [address] [facility] [address] [place] [address] Phone Care Team Providers Care Files Supervisor Name Role Phone Abbe Nails MD Primary Care Provider [phone] Zachary Giron MD Unavailable Encounter Details Date Type Department Care Team (Late st Contact Info) Description 10/13/2019 Orders Only [facility] Surgery [address] [facility] Advanced Medicine 8th [place] [address] [place] [address] Zachary Giron MD [address] [facility] [id number] [place] [address] Severe peripheral arterial disease (CMS/HCC) (Primary Dx); Dyspnea on exertion Social History Tobacco Use Types Packs/Day Years Used Date Smoking Tobacco: Former Cigarettes Smokeless Tobacco: Never Alcohol Use Standard Drinks/Week Comments Yes 0 (1 standard drink = 0.6 oz pur e alcohol) Comments Unknown Sex and Gender Information Value Date Recorded Sex Assigned at Not on file 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 Gender Identity Not on file Sexual Orientation Not on file documented as of this encounter Plan of Treatment Not on file documented as of this encounter Visit Diagnoses Diagnosis Severe peripheral arterial disease (HCC)- Primary Dyspnea on exertion Other dyspnea and respiratory abnormality documented in this encounter Care Teams Files Supervisor Relationship Specialty Start Date End Date Abbe Nails MD [address] [place] [address] PCP - General 12/05/16 10/13/19 Zachary Giron MD [address] [place] [address] Surgeon Vascular Surgery 10/12/19 documented as of this encounter
--- OUTSIDE RECORDS SUMMARY | 2024-09-08 08:25 | XMS_ITS | Encounter Summary ---
Author Organization [facility] Address [address] [place] [address] Care Team Providers Care Stone Polisher Machine Name Role Phone Abbe Nails MD Primary Care Provider [phone] Reason for Visit * Reason Comments Follow-up yearly follow up on stenosis of brachio artery, HTN, CAD, ortho hypotension Encounter Details Date Type Department Care Team (Latest Contact Info) Description 03/01/2018 2:30 PM CDT Office Visit [facility] [address] [place] [address] Marco A Antoine MD [address] [place] [id number] Labile hypertension (Primary Dx); Stenosis of brachiocephalic artery (CMS/HCC); Mitral valve insufficiency, unspecified etiology; Orthostatic hypotension; Vertebrobasilar insufficiency; Ischemic cerebrovascular accident (CVA) (CMS/HCC); Dyslipidemia; Bilateral carotid artery disease (CMS/HCC); Aortic valve insufficiency, etiology of cardiac valve disease unspecified; Dizziness Social History Tobacco Use Types Packs/Day Years Used Date Smoking Tobacco: Former Smokeless Tobacco: Never Alcohol Use Standard Drinks/Week Comments Yes 0 (1 standard drink = 0.6 oz pur e alcohol) Comments Unknown Sex and Gender Information Value Date Recorded Sex Assigned at Not on file 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 Gender Identity Not on file Sexual Orientation Not on file documented as of this encounter Last Filed Vital Signs Vital Sign Reading Time Taken Comments Blood Pressure 148/84 03/01/2018 2:39 PM CDT Pulse 65 03/01/2018 2:39 PM CDT Temperature - - Respiratory Rate - - Oxygen Saturation 96% 03/01/2018 2:39 PM CDT Inhaled Oxygen Concentration - - Weight 90.3 kg (199 lb) 03/01/2018 2:39 PM CDT Height 170.2 cm (5' 7 ) 03/01/2018 2:39 PM CDT Body Mass Index 31.17 03/01/2018 2:39 PM CDT documented in this encounter Progress Notes * Marco A Antoine MD - 03/01/2018 2:30 PM CDT [facility] DATE OF VISIT: 03/01/2018 CHIEF COMPLAINT Chief Complaint Patient presents with ??? Follow-up yearly follow up on stenosis of brachio artery, HTN, CAD, ortho hypotension HPI Suma Saenz is a 72 y.o. 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 07/04/1604/01 MRI no CVA. 04/02 Cerebral angiogram 04/03 new multiple small foci c/w tiny infarcts. Seeing Vasc at [place]. Passed out after procdure with Dr. Steven [...] 02/18/[address] scan, repeat doppers at [place]. Notes occ vision problems, occ dizziness improved [...] gets exceptionally tired. Still seeing Vascular at [place] recommended ongoing observation and evaluation. MEDICAL HISTORY History reviewed. No pertinent past medical history. Social History Substance Use Topics ??? Smoking status: Former Smoker ??? Smokeless tobacco: Never Used ??? Alcohol use Yes Family History Problem Relation Age of Onset ??? Stroke Father Stroke; ??? Heart disease Father Family history of cardiac disorder - (Added by TW Conv) ??? Heart disease Mother Heart disease; /Family history of cardiac disorder - (Added by TW Conv) MEDICATIONS HOME MEDICATIONS : aspirin 325 mg tablet atenolol (TENORMIN) 50 mg tablet atorvastatin (LIPITOR) 80 mg tablet biotin-keratin (BIOTIN PLUS KERATIN) 10,000-100 mcg-mg tablet buPROPion XL (WELLBUTRIN XL) 150 mg 24 hr tablet cetirizine (ZyrTEC) 10 mg tablet clopidogrel (PLAVIX) 75 mg tablet diphenhydrAMINE-acetaminophen (TYLENOL PM EXTRA STRENGTH) 25-500 mg tablet doxycycline (ADOXA) 50 mg tablet fentaNYL (DURAGESIC) 12 mcg/hr hydroCHLOROthiazide (HYDRODIURIL) 25 mg tablet montelukast (SINGULAIR) 10 mg tablet ramipril (ALTACE) 10 mg capsule salmon oil-omega-3 fatty acids (SALMON OIL-1000) 1,000-200 mg capsule senna-docusate (SENNA PLUS) 8.6-50 mg multivitamin tablet tablet ALLERGIES Allergies Allergen Reactions ??? Naproxen Rash ??? Penicillins Rash ??? Sulfa (Sulfonamide Antibiotics) Rash REVIEW OF SYSTEMS Review of Systems Constitution: Negative for decreased appetite, diaphoresis, fever, weakness, malaise/fatigue and night sweats. HENT: Negative for hearing loss and nosebleeds. Eyes: Negative for blurred vision and pain. Cardiovascular: Negative for chest pain, claudication, dyspnea on exertion, irregular heartbeat, leg swelling, near-syncope, orthopnea, palpitations and syncope. Respiratory: Negative for cough, hemoptysis, shortness of [...] excessive daytime sleepiness, dizziness, focal weakness, headaches, light-headedness and loss of balance. Psychiatric/Behavioral: Negative for altered mental status, depression and memory loss. The patientis not nervous/anxious. Allergic/Immunologic: Negative for environmental allergies. PHYSICAL EXAM Vitals: 03/01/18 1439 BP: 148/84 Pulse: 65 SpO2: 96% Weight: 90.3 kg (199 lb) Height: 170.2 cm (5' 7 ) Body mass index is 31.17 kg/m??. Physical Exam Constitutional: She is oriented to person, place, and time. She appears well- developed and well-nourished. She is cooperative. No distress. HENT: Head: Normocephalic and atraumatic. Right Ear: External ear normal. Left Ear: External ear normal. Nose: Nose normal. Mouth/Throat: Oropharynx is clear and moist and mucous membranes are normal. Normal dentition. Eyes: Conjunctivae, EOM and lids are normal. No scleral icterus. Neck: Normal range of motion. Neck supple. Normal carotid pulses, no hepatojugular reflux and no JVD present. Carotid bruit is not present. No tracheal deviation present. No thyromegaly present. bilat carotid bruits Cardiovascular: Normal rate, regular rhythm, S1 normal, S2 normal, normal heart sounds, intact distal pulses and normal pulses. Exam reveals no gallop, no S3, no S4, no distant heart sounds and no friction rub. No murmur heard. Loud RU chest bruit Pulmonary/Chest: Effort normal and breath sounds normal. No respiratory distress. She has no wheezes. She has no rales. She exhibits no tenderness. Abdominal: Soft. Bowel sounds are normal. She exhibits no distension and no mass. There is no tenderness. There is no rebound and no guarding. Musculoskeletal: Normal range of motion. She exhibits no edema, tenderness or deformity. Lymphadenopathy: She has no cervical adenopathy. Neurological: She is alert and oriented to person, place, and time. No cranial nerve deficit. She exhibits normal muscle tone. Coordination normal. Skin: Skin is warm and dry. No ecchymosis, no petechiae and no rash noted. She is not diaphoretic. No cyanosis or erythema. No pallor. Nails show no clubbing. Psychiatric: She has a normal mood and affect. Her speech is normal and behavior is normal. Judgment normal. LABS AND OTHER DIAGNOSTIC TESTS Office Visit on 03/01/2018 Component Date Value Ref Range Status ??? Cholesterol, POC 03/01/2018 135 mg/dL Final ??? HDL, POC 03/01/2018 56 mg/dL Final ??? Triglycerides, POC 03/01/2018 193 mg/dL Final ??? LDL, Direct, POC 03/01/2018 41 mg/dL Final ??? Chol/HDL Ratio, POC 03/01/2018 2.4 Final ??? Non-HDL Cholesterol, POC 03/01/2018 79 mg/dL Final ??? Cholesterol Total, POC 03/01/2018 135 mg/dL Final Personally reviewed EKG, Echocardiogram, stress test, and bloodwork/lipids. ASSESSMENT Diagnoses and all orders for this visit: Labile hypertension (Primary) Stenosis of brachiocephalic artery ([facility]) Mitral valve insufficiency, unspecified etiology Orthostatic hypotension Vertebrobasilar insufficiency Ischemic cerebrovascular accident (CVA) ([facility]) Dyslipidemia - POCT lipid panel Bilateral carotid artery disease ([facility]) Aortic valve insufficiency, etiology of cardiac valve disease unspecified Dizziness PLAN/RECOMMENDATIONS 1. BP improved but remains elevated but pt cannot be controlled tighter due to intolerance. MonitorBP on routine basis. Call with readings. Continue consistent cardiovascular exercise, weight loss, medication compliance, and low-sodium diet. 2. Avoid excessive hypotension given vertebrobasilar insufficiency and uncontrolled hypertension. Patient reasonably stable at this time average heart rate 140s to 150s. Review patient's BP diary. Tolerating current medical therapy. 3. Follow-up as scheduled with Dr. Steven at [place]. Anticipate surgical correction if brachiocephalic stenosis. 4. Aggressive atherosclerotic risk reduction given carotid arterial stenosis albeit moderate in severity. Remains on dual antiplatelet therapy, rosuvastatin. 5. Caution with ambulation rise slowly from a seated position to avoid risk for falls and injuries.Notify office with any additional questions or concerns. 6. Lifestyle modification counseling performed. Weight loss, exercise, reduction in caloric intake. 7. Lipids personally reviewed in office 03/01/18 LDL 41, very well controlled. Continue statin therapy and lifestyle modification. Over 50% of this visit counseling carotid disease, HTN, lipids, medications, lifestyle modification. Follow up in the office in 6 months or sooner as needed. Thank you for allowing me the privilege of participating in the care this very pleasant patient. Please do not hesitate to contact me with any additional questions or concerns. Karlene Antoine MD, [facility] documented in this encounter Plan of Treatment Not on file documented as of this encounter Procedures Procedure Name Priority Date/Time Associated Diagnosis Comments POCT LIPID PANEL Routine 03/01/2018 3:03 PM CDT Dyslipidemia documented in this encounter Results * POCT lipid panel (03/01/2018 3:03 PM CDT) Cholesterol, POC 135 mg/dL HDL, POC 56 mg/dL Triglycerides, POC 193 mg/dL LDL Cholesterol POC 41 mg/dL Chol/HDL Ratio, POC 2.4 Non-HDL Cholesterol, POC 79 mg/dL Cholesterol Total, POC 135 mg/dL Blood specimen (specimen) 03/01/2018 3:03 PM CDT Marco A Antoine MD POINT OF CARE TEST ORDER EDD Final Result documented in this encounter Visit Diagnoses Diagnosis Labile hypertension- Primary 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 Mitral valve insufficiency, unspecified etiology Orthostatic hypotension 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 Ischemic cerebrovascular accident (CVA) (HCC) Dyslipidemia Other and unspecified hyperlipidemia Bilateral carotid artery disease (HCC) Unspecified disorders of arteries and arterioles Aortic valve insufficiency, etiology of cardiac valve disease unspecified Dizziness Dizziness and giddiness documented in this encounter Discontinued Medications Medication Sig Discontinue Reason Start Date End Da te multivitamin tablet tablet take 1 tablet by oral route every day with food Discontinued by another clinician 02/26/2015 03/01/2018 documented as of this encounter Historical Medications * This list may reflect changes made after this encounter. doxycycline (ADOXA) 50 mg tablet Take 50 mg by mouth 2 (two) times a day. 08/14/2021 added in this encounter Care Teams Stone Polisher Machine Relationship Specialty Start Date End Date Abbe Nails MD [address] [place] [address] PCP - General 12/05/16 10/13/19 documented as of this encounter
--- OUTSIDE RECORDS SUMMARY | 2024-09-08 08:25 | XMS_ITS | Encounter Summary ---
Author Organization [facility] Address [address] [place] [address] Care Team Providers Care Cytopathologist Name Role Phone Abbe Nails MD Primary Care Provider [phone] Reason for Visit * Reason Comments Follow-up 7 mo follow up on HT N, dyslipidemia, CAD Encounter Details Date Type Department Care Team (Latest Contact Info) Description 09/27/2018 3:00 PM SPORTS SPECIALIST Office Visit [facility] [address] [place] [id number] Marco A Antoine MD [id number] [place] [address] Mitral valve insufficiency, unspecified etiology (Primary Dx); Benign hypertension; Ischemic embolic stroke (CMS/HCC); Aortic valve insufficiency, etiology of cardiac valve disease unspecified; Vertebrobasilar insufficiency; Orthostatic hypotension; Stenosis of brachiocephalic artery (CMS/HCC); Dizziness; Labile hypertension; Bilateral carotid artery stenosis Social History Tobacco Use Types Packs/Day Years Used Date Smoking Tobacco: Former Cigarettes Smokeless Tobacco: Never Alcohol Use Standard Drinks/Week Comments Yes 0 (1 standard drink = 0.6 oz pur e alcohol) Comments Unknown Sex and Gender Information Value Date Recorded Sex Assigned at Not on file Legal Sex Female 3:40 AM SPORTS SPECIALIST Gender Identity Not on file Sexual Orientation Not on file documented as of this encounter Last Filed Vital Signs Vital Sign Reading Time Taken Comments Blood Pressure 136/84 09/27/2018 3:09 PM SPORTS SPECIALIST Pulse 70 09/27/2018 3:09 PM SPORTS SPECIALIST Temperature - - Respiratory Rate - - Oxygen Saturation 97% 09/27/2018 3:09 PM SPORTS SPECIALIST Inhaled Oxygen Concentration - - Weight 89.4 kg (197 lb) 09/27/2018 3:09 PM SPORTS SPECIALIST Height 170.2 cm (5' 7 ) 09/27/2018 3:09 PM SPORTS SPECIALIST Body Mass Index 30.85 09/27/2018 3:09 PM SPORTS SPECIALIST documented in this encounter Progress Notes * Marco A Antoine MD - 09/27/2018 3:00 PM CST [facility] DATE OF VISIT: 09/27/2018 CHIEF COMPLAINT Chief Complaint Patient presents with ??? Follow-up 7 mo follow up on HTN, dyslipidemia, CAD HPI Suma Saenz is a 72 y.o. [...] foci c/w tiny infarcts. Seeing Vasc at [place]. Passed out after procdure with Dr. Steven [...] 02/18/[address] scan, repeat doppers at [place]. Notes occ vision problems, occ dizziness improved [...] gets exceptionally tired. Still seeing Vascular at [place] recommended ongoing observation and evaluation. 09/27/18 Off Fentanyl patch as pain wasn't controlled got a medical MJ card and started using and pain MUCH better and BP stable. OCc dizziness when BP lower or bend over too fast. MEDICAL HISTORY History reviewed. No pertinent past medical history. Social History Substance Use Topics ??? Smoking status: Former Smoker Types: Cigarettes ??? Smokeless tobacco: Never Used ??? Alcohol [...] mg capsule senna-docusate (SENNA PLUS) 8.6-50 mg atenolol (TENORMIN) 50 mg tablet fentaNYL (DURAGESIC) 12 mcg/hr ALLERGIES Allergies Allergen Reactions ??? Naproxen Rash [...] for environmental allergies. PHYSICAL EXAM Vitals BP 136/84 (BP Location: Left arm, Patient Position: Sitting) Pulse 70 Ht 170.2 cm (5' 7 ) Wt 89.4 kg (197 lb) SpO2 97% BMI 30.85 kg/m?? Weight: 89.4 kg (197 lb) Height: 170.2 cm (5' 7 ) Body mass index is 30.85 kg/m??. Physical Exam Constitutional: She is oriented [...] rate, regular rhythm, S1 normal, S2 normal, intact distal pulses and normal pulses. Exam reveals no gallop, no S3, no S4, no distant heart sounds and no friction rub. Murmur heard. High-pitched midsystolic murmur is present with a grade of 3/6 Probable transmitted from brachicephalic stenosis Loud RU chest bruit Pulmonary/Chest: Effort normal [...] visit. Latest known visit with results is: Office Visit on 03/01/2018 Component Date Value [...] Diagnoses and all orders for this visit: Mitral valve insufficiency, unspecified etiology (Primary) Benign hypertension Ischemic embolic stroke (CMS/HCC) Aortic valve insufficiency, etiology of cardiac valve disease unspecified Vertebrobasilar insufficiency Orthostatic hypotension Stenosis of brachiocephalic artery (CMS/HCC) Dizziness Labile hypertension PLAN/RECOMMENDATIONS 1. BP stable. Monitor BP on routine basis. Call with readings. Continue consistent cardiovascular exercise, weight loss, medication compliance, and low- sodium diet. 2. Avoid excessive hypotension given vertebrobasilar insufficiency and uncontrolled hypertension. Tolerating current medical therapy. 3. Follow-up as scheduled with Dr. Steven at [place]. 4. Aggressive atherosclerotic risk reduction given carotid [...] additional questions or concerns. 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 Orthostatic hypotension 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 Dizziness Dizziness and giddiness Labile hypertension Bilateral carotid artery stenosis Occlusion and stenosis of carotid artery without mention of cerebral infarction documented in this encounter Discontinued Medications Medication Sig Discontinue Reason Start Date End Da te atenolol (TENORMIN) 50 mg tablet take 1 tablet by oral route every day Dose adjustment 07/04/2016 09/27/2018 fentaNYL (DURAGESIC) 12 mcg/hr apply 1 patch by transdermal route every 72 hours Discontinued by another clinician 03/18/2016 09/27/2018 documented as of this encounter Historical Medications * This list may reflect changes made after this encounter. atenolol (TENORMIN) 50 mg tablet Take 100 mg by mouth daily. 10/12/2019 added in this encounter Care Teams Cytopathologist Relationship Specialty Start Date End Date Abbe Nails MD [address] [address] PCP - General 12/05/16 10/13/19 documented as of this encounter
--- OUTSIDE RECORDS SUMMARY | 2024-09-08 08:25 | XMS_ITS | Encounter Summary ---
Author Organization [facility] Care Team Providers Care Real Estate Administrator Name Role Phone Abbe Nails MD Primary Care Provider [phone] Encounter Details Date Type Department Care Team (Latest Contact Info) Description 03/31/2016 7:47 AM CDT - 03/31/2016 11:59 PM T Hospital Encounter [facility] Zachary Michaels MD [address] [facility] [id number] [place] [address] Encounter for other preprocedural examination; Occlusion and stenosis of bilateral carotid arteries Social History Tobacco Use Types Packs/Day Years Used Date Smoking Tobacco: Former Alcohol Use Standard Drinks/Week Comments Yes 0 (1 standard drink = 0.6 oz pur e alcohol) Comments Unknown Sex and Gender Information Value Date Recorded Sex Assigned at Not on file Legal Sex Female 3:40 AM 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 Gender Identity Not on file Sexual Orientation Not on file documented as of this encounter Medications at Time of Discharge buPROPion XL (WELLBUTRIN XL) 150 mg 24 hr tablet take 1 tablet by oral route 2 times every day 0 0 02/26/2015 cetirizine (ZyrTEC) 10 mg tablet take 1 tablet by oral route every day 0 0 02/26/2015 clopidogrel (PLAVIX) 75 mg tablet take 1 tablet by oral route every day 0 0 02/26/2015 0 diphenhydrAMINE- acetaminophen (TYLENOL PM EXTRA STRENGTH) 25-500 mg tablet take 2 tablet by oral route every day at bedtime 0 0 02/26/2015 0 fentaNYL (DURAGESIC) 12 mcg/hr apply 1 patch by transdermal route every 72 hours 0 patch 0 03/18/2016 9 multivitamin tablet tablet take 1 tablet by oral route every day with food 0 0 02/26/2015 8 ramipril (ALTACE) 10 mg capsule take 1 capsule by oral route every day 0 0 02/26/2015 0 documented as of this encounter Plan of Treatment Not on file documented as of this encounter Procedures Procedure Name Priority Date/Time Associated Diagnosis Comments TRANSTHORACIC ECHO (TTE) COMPLETE W DOPPLER/CF WO CONTRAST 03/31/2016 12:00 AM CDT documented in this encounter Results * Transthoracic Echo Complete W Doppler/CF WO Contrast (03/31/2016 12:00 AM CDT) Anatomical Region Laterality Modality Ultrasound Narrative 03/31/2016 12:00 AM CDT Ordered by an unspecified provider. Procedure Note Provider, MD Nimesh - 11/03/2018 Ordered by an unspecified provider. Historical Provider CV ECHO PROCEDURES Final Result documented in this encounter Visit Diagnoses Diagnosis Encounter for other preprocedural examination Occlusion and stenosis of bilateral carotid arteries documented in this encounter Care Teams Real Estate Administrator Relationship Specialty Start Date End Date Abbe Nails MD [address] [place] [id number] PCP - General 03/12/15 12/04/16 documented as of this encounter
--- OUTSIDE RECORDS SUMMARY | 2024-09-08 08:25 | XMS_ITS | Encounter Summary ---
Author Organization [facility] Facility Care Team Providers Care Supervisor Sign Shop Name Role Phone Abbe Nails MD Primary Care Provider [phone] Encounter Details Date Type Department Care Team (Latest Contact Info) Description 03/31/2016 9:08 PM CDT - 04/06/2016 11:34 AM CDT Hospital Encounter 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 (CMS/HCC); Essential (primary) hypertension; Osteoarthritis; Gastro-esophageal reflux disease without esophagitis; Facial weakness; Personal history of nicotine dependence; Allergy status to penicillin; Allergy status to sulfonamides Social History Tobacco Use Types Packs/Day Years Used Date Smoking Tobacco: Former Alcohol Use Standard Drinks/Week Comments Yes 0 (1 standard drink = 0.6 oz pur e alcohol) Comments Unknown Sex and Gender Information Value Date Recorded Sex Assigned at Not on file 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 Gender Identity Not on file Sexual Orientation Not on file documented as of this encounter Last Filed Vital Signs Vital Sign Reading Time Taken Comments Blood Pressure 175/67 04/06/2016 7:39 AM CDT Pulse 88 04/06/2016 8:30 AM CDT Temperature - - Respiratory Rate - - Oxygen Saturation 99% 04/06/2016 7:39 AM CDT Inhaled Oxygen Concentration - - Weight 84.5 kg (186 lb 2.9 oz) 04/05/2016 6:00 A M CDT Height 170.2 cm (5' 7 ) 03/31/2016 9:31 PM CDT Body Mass Index 29.16 03/31/2016 9:31 PM CDT documented in this encounter Medications at Time [...] 02/26/2015 0 documented as of this encounter Consult Notes * Provider, MD Nimesh - 04/01/2016 12:00 AM CDT Patient: PAIGE JENNINGS Reg No: [id number] U H #: [id number] Admit Dt.: 03/31/2016 : 1945 Room No: 7574-01 Attending: Zachary Giron M.D. Consulting: Azar Lara M.D. Dictating: Azar Lara M.D. Service Dt: 04/01/2016 CONSULTATION REPORT FACILITY: [facility] PHYSICIAN REQUESTING CONSULTATION: Dr. Zachary Giron REASON FOR CONSULTATION: Dizzy spells and atherosclerotic disease of the head and neck vessels and presyncopal episodes. BRIEF HISTORY: The patient is a [age] year old woman who was followed for a history of right carotid artery stenosis that was moderate. She also had bilateral vertebral disease but she was in Dr. Giron's office and had a spell and she was nonresponsive for 30 to 40 seconds. She did not lose completely consciousness or fall from the chair and she had a mild left facial droop temporarily. She said that sometimes, in retrospect, when she puts her head back like to look up at the ceiling she gets one of these spells. It doesn't really occur with activity so much. She also had a differential blood pressure, substantially higher on the left than the right arm. She was admitted and underwent a workup that showed atherosclerotic disease of her head and neck. PAST MEDICAL HISTORY: Right carotid artery stenosis, hyperlipidemia, hypertension, COPD, degenerative joint disease. She is a former smoker and has a reasonably long smoking history, but quit in 2006. She does not drink heavily. FAMILY HISTORY: No known history of atherosclerotic disease at an early age. REVIEW OF SYSTEMS: She has some nausea occasionally but no symptoms, no psychiatric abnormalities. No chest pain, back pain or radiation thereof. No underlying lung disease. The rest of her 14 systems were reviewed and were negative. PHYSICAL EXAMINATION: Vital Signs: her blood pressure is 165 in the left over 54 and 120 on the right. Pulse was 66. She is breathing 18 per minute. Saturation is 96% on room air. Temperature is 36.7. Constitutional: she is alert and oriented times three, in appropriate mood. Equal arm and leg strength bilaterally. No cranial nerve deficits presently. HEENT: she has an anicteric eye exam, equal ocular motion, moist mucous membranes. No palpable lymph nodes in her neck or distal extremities. Heart: She has clear heart tones but she has a dramatic bruit at the sternal notch; that's where it is the loudest. It radiates over to the left along the left clavicle as well and goes up to the right carotid somewhat but fades away before it gets into the carotid area. It does not radiate to the apex. Lungs: she has clear lung corcoran. Abdomen: soft, nontender. Skin: No obvious skin ulcers in the exposed areas. Neurologic: her mood is appropriate and her affect is normal. LABORATORY AND X-RAY DATA: I reviewed her CT angiogram of the head and neck. She has very calcified area at the innominate take off; can't really say how narrow it is but it is certainly narrowed; she has 40 to 50% lesion of the right carotid and she has vertebral disease on the left. Her CT scan of the head I looked at and there was no acute lesions. 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 We could get better visualization of this area in that the CTA had lost some of the imaging around that area of stenosis. I think consideration could be given to cerebral angiogram. I talked to the patient about potential aorto-innominate bypass. The question would be whether she would need her carotid addressed as well. Probably not necessarily or it could be followed probably down the road, but I would defer that to Dr. Giron's decision making. 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 I think from a surgical standpoint she would be a good candidate if Neurology feels that medical therapy alone will not take care of the stenotic disease. I will discuss my findings with Dr. Giron. Electronically Authenticated by: Azar Lara MD On 04/07/2016 12:27 PM CDT Azar Lara M.D. MRM:dc #[id number] Editing MT: TD: 04/02/2016 10:07 AM cc: Laura Anderson M.D. documented in this encounter Plan of Treatment Not on file documented as of this encounter Procedures Procedure Name Priority Date/Time Associated Diagnosis Comments PLASMA BASIC METABOLIC PANEL Routine 04/06/2016 12:22 AM CDT BLOOD CELL COUNT (CBC) Routine 6 12:22 AM CDT BLOOD CELL MORPHOLOGIC EXAM Routine 04/06/2016 12:22 AM CDT DISCHARGE LABORATORY CUMULATIVE REPORT 04/06/2016 BLOOD GLUCOSE, POC Routine 04/05/2016 7: 57 PM CDT PLASMA BASIC METABOLIC PANEL Routine 04/05/2016 12:21 AM CDT BLOOD CELL COUNT (CBC) Routine 6 12:21 AM CDT BLOOD CELL MORPHOLOGIC EXAM Routine 04/05/2016 12:21 AM CDT PLASMA PARTIAL THROMBOPLASTIN TIME (PTT) Routine 04/04/2016 12:22 AM CDT PLASMA BASIC METABOLIC PANEL Routine 04/04/2016 12:22 AM CDT BLOOD CELL COUNT (CBC) Routine 12:22 AM CDT BLOOD CELL MORPHOLOGIC EXAM Routine 04/04/2016 12:22 AM CDT MRI BRAIN W WO CONTRAST Routine 04/03/20 16 10:48 PM CDT MRA NECK W WO CONTRAST Routine 6 10:48 PM CDT PLASMA PARTIAL THROMBOPLASTIN TIME (PTT) Routine 04/03/2016 10:56 AM CDT CRITICAL RESULT CALL BACK Routine 2015 10:56 AM CDT PLASMA PARTIAL THROMBOPLASTIN TIME (PTT) Routine 04/03/2016 4:56 AM CDT CRITICAL RESULT CALL BACK Routine 2015 4:56 AM CDT PLASMA PROTHROMBIN TIME (PT) Routine 04/03/2016 3:31 AM CDT PLASMA PARTIAL THROMBOPLASTIN TIME (PTT) Routine 04/03/2016 3:31 AM CDT CRITICAL RESULT CALL BACK Routine 2015 3:31 AM CDT BLOOD CHECK SAMPLE Routine 04/03/2016 1: 35 AM CDT XR CHEST 1 VIEW Routine 04/03/2016 12:59 AM CDT URINE MICROSCOPY Routine 04/03/2016 12:3 3 AM CDT BLOOD ABO, RH, INDIRECT AB SCREEN Routine 04/03/2016 12:33 AM CDT SERUM MAGNESIUM Routine 04/03/2016 12:32 AM CDT PLASMA PHOSPHORUS Routine 04/03/2016 12: 32 AM CDT PLASMA COMPREHENSIVE METABOLIC PANEL Routine 04/03/2016 12:32 AM CDT BLOOD CELL COUNT (CBC) Routine 6 12:32 AM CDT BLOOD CELL MORPHOLOGIC EXAM Routine 04/03/2016 12:32 AM CDT BLOOD GLUCOSE, POC Routine 04/03/2016 12 :04 AM CDT ELECTROCARDIOGRAPHY (ECG) 04/03/2016 PLASMA PARTIAL THROMBOPLASTIN TIME (PTT) Routine 04/02/2016 8:35 PM CDT BLOOD CELL COUNT Routine 04/02/2016 8:35 PM CDT ANGIO NON-SELECTIVE GREAT VESSEL Routine 04/02/2016 3:59 PM CDT ANGIO NON-SELECTIVE GREAT VESSEL Routine 04/02/2016 3:59 PM CDT SERUM LIPID PANEL Routine 04/02/2016 3:4 4 AM CDT PLASMA BASIC METABOLIC PANEL Routine 04/02/2016 3:44 AM CDT BLOOD HEMOGLOBIN A1C Routine 04/02/2016 3:44 AM CDT BLOOD CELL COUNT (CBC) Routine 6 3:44 AM CDT BLOOD CELL MORPHOLOGIC EXAM Routine 04/02/2016 3:44 AM CDT MRI BRAIN W WO CONTRAST Routine 04/01/20 16 9:11 AM CDT PLASMA PROTHROMBIN TIME (PT) Routine 04/01/2016 1:15 AM CDT PLASMA PARTIAL THROMBOPLASTIN TIME (PTT) Routine 04/01/2016 1:15 AM CDT XR CHEST 1 VIEW Routine 03/31/2016 10:35 PM CDT SERUM MAGNESIUM Routine 03/31/2016 10:00 PM CDT PLASMA PHOSPHORUS Routine 03/31/2016 10: 00 PM CDT PLASMA BASIC METABOLIC PANEL Routine 03/31/2016 10:00 PM CDT BLOOD CELL COUNT (CBC) Routine 6 10:00 PM CDT BLOOD CELL MORPHOLOGIC EXAM Routine 03/31/2016 10:00 PM CDT URINALYSIS Routine 03/31/2016 6:08 PM CDT SERUM TROPONIN I Routine 03/31/2016 3:[address] HEAD WO CONTRAST Routine 03/31/2016 1 2:01 PM CDT BLOOD PROTHROMBIN TIME (PT) Routine 03/31/2016 12:00 PM CDT SERUM TROPONIN I Routine 03/31/2016 11:5 7 AM CDT PLASMA PARTIAL THROMBOPLASTIN TIME (PTT) Routine 03/31/2016 11:57 AM CDT PLASMA BASIC METABOLIC PANEL Routine 03/31/2016 11:57 AM CDT BLOOD GLUCOSE, POC Routine 03/31/2016 11 :57 AM CDT BLOOD CELL COUNT Routine 03/31/2016 11:5 7 AM CDT BLOOD B-TYPE NATRIURETIC PEPTIDE (BNP) Routine 03/31/2016 11:57 AM CDT documented in this encounter Results * (ABNORMAL) Plasma basic metabolic panel (04/06/2016 12:22 AM CDT) Sodium 139 135 - 145 mmol/L CDR HISTORICAL RESULTS K, pl 3.9 3.3 - 4.9 mmol/L CDR HISTORICAL RESULTS Chloride 104 97 - 110 mmol/L CDR HISTORICAL RESULTS CO2 20(L) 22 - 32 mmol/L CDR HISTORICAL RESULTS A. gap 14 2 - 15 mmol/L CDR HISTORICAL RESULTS Glucose 104 70 - 199 mg/dl CDR HISTORICAL RESULTS BUN 13 8 - 25 mg/dl CDR HISTORICAL RESULTS Creatinine 0.70 0.60 - 1.10 mg/dl CDR HISTORICAL RESULTS Calcium 9.9 8.5 - 10.3 mg/dl CDR HISTORICAL RESULTS Plasma 04/06/2016 12:2 2 AM CDT Tash Last MD LAB BLOOD ORDERABLES Final Re sult CDR HISTORICAL RESULTS * Blood cell count (CBC) (04/06/2016 12:22 AM CDT) WBC 7.0 3.8 - 9.9 K/cumm CDR HISTORICAL RESULTS RBC 4.33 3.90 - 5.20 M/cumm CDR HISTORICAL RESULTS Hgb 13.6 11.9 - 15.5 g/dl CDR HISTORICAL RESULTS Hct 39.3 35.6 - 45.5 % CDR HISTORICAL RESULTS MCV 90.8 81.3 - 96.4 fl CDR HISTORICAL RESULTS MCH 31.4 27.1 - 33.3 pg CDR HISTORICAL RESULTS MCHC 34.6 32.3 - 35.7 g/dl CDR HISTORICAL RESULTS Rdw 13.2 11.1 - 14.9 % CDR HISTORICAL RESULTS RDW 43.8 35.7 - 48.1 fl CDR HISTORICAL RESULTS Platelets 237 150 - 400 K/cumm CDR HISTORICAL RESULTS MPV 9.5 9.1 - 12.3 fl CDR HISTORICAL RESULTS NRBC 0.0 0.0 - 0.2 % CDR HIST ORICAL RESULTS NRBC, abs 0.00 0.00 - 0.01 K/cumm CDR HISTORICAL RESULTS Blood specimen (specimen) 04/06/2016 12:22 AM CDT Tash Last MD LAB BLOOD ORDERABLES Final Re sult Performing Organization Address [facility] Co de Phone Number CDR HISTORICAL RESULTS * Blood cell morphologic exam (04/06/2016 12:22 AM CDT) Neutrophils 50.7 % CDR HIST ORICAL RESULTS Immature granulocytes 0.1 % CDR HISTORICAL RESULTS Lymphocytes 38.4 % CDR HIST ORICAL RESULTS Monos 9.5 % CDR HISTOR ICAL RESULTS Eosinophils 1.0 % CDR HIST ORICAL RESULTS Basophils 0.3 % CDR HISTOR ICAL RESULTS Neutrophils, abs 3.5 1.7 - 6.5 K/cumm CDR HISTORICAL RESULTS Immature granulocyte, abs 0.0 0.0 - 0.1 K/cumm CDR HISTORICAL RESULTS Lymphocytes, abs 2.7 0.8 - 3.3 K/cumm CDR HISTORICAL RESULTS Monocytes, absolute 0.7 0.2 - 0.8 K/cumm CDR HISTORICAL RESULTS Eosinophils, abs 0.1 0.0 - 0.5 K/cumm CDR HISTORICAL RESULTS Basophils, abs 0.0 0.0 - 0.1 K/cumm CDR HISTORICAL RESULTS Blood specimen (specimen) 04/06/2016 12:22 AM CDT Tash Last MD LAB BLOOD ORDERABLES Final Re sult Performing Organization Address City/[facility]/ZIP Co de Phone Number CDR HISTORICAL RESULTS * DISCHARGE LABORATORY CUMULATIVE REPORT (04/06/2016) Narrative 04/06/2016 Ordered by an unspecified provider. Historical Provider LAB BLOOD ORDERABLES Tiffany l Result * Blood glucose, POC (04/05/2016 7:57 PM CDT) Glucose, POC, bld 153 70 - 199 mg/dl CDR HISTORICAL RESULTS Blood specimen (specimen) 04/05/2016 7:57 PM CDT Zachary Giron MD LAB BLOOD ORDERABLES Tiffany l Result CDR HISTORICAL RESULTS * (ABNORMAL) Plasma basic metabolic panel (04/05/2016 12:21 AM CDT) Sodium 141 135 - 145 mmol/L CDR HISTORICAL RESULTS K, pl 3.8 3.3 - 4.9 mmol/L CDR HISTORICAL RESULTS Chloride 105 97 - 110 mmol/L CDR HISTORICAL RESULTS CO2 21(L) 22 - 32 mmol/L CDR HISTORICAL RESULTS A. gap 15 2 - 15 mmol/L CDR HISTORICAL RESULTS Glucose 109 70 - 199 mg/dl CDR HISTORICAL RESULTS BUN 13 8 - 25 mg/dl CDR HISTORICAL RESULTS Creatinine 0.70 0.60 - 1.10 mg/dl CDR HISTORICAL RESULTS Calcium 9.3 8.5 - 10.3 mg/dl CDR HISTORICAL RESULTS Plasma 04/05/2016 12:2 1 AM CDT Daryn Clark MD PhD LAB BLOOD ORDERABLES Tiffany l Result CDR HISTORICAL RESULTS * Blood cell count (CBC) (04/05/2016 12:21 AM CDT) WBC 5.7 3.8 - 9.9 K/cumm CDR HISTORICAL RESULTS RBC 4.36 3.90 - 5.20 M/cumm CDR HISTORICAL RESULTS Hgb 13.6 11.9 - 15.5 g/dl CDR HISTORICAL RESULTS Hct 39.1 35.6 - 45.5 % CDR HISTORICAL RESULTS MCV 89.7 81.3 - 96.4 fl CDR HISTORICAL RESULTS MCH 31.2 27.1 - 33.3 pg CDR HISTORICAL RESULTS MCHC 34.8 32.3 - 35.7 g/dl CDR HISTORICAL RESULTS Rdw 13.2 11.1 - 14.9 % CDR HISTORICAL RESULTS RDW 43.3 35.7 - 48.1 fl CDR HISTORICAL RESULTS Platelets 210 150 - 400 K/cumm CDR HISTORICAL RESULTS MPV 9.2 9.1 - 12.3 fl CDR HISTORICAL RESULTS NRBC 0.0 0.0 - 0.2 % CDR HIST ORICAL RESULTS NRBC, abs 0.00 0.00 - 0.01 K/cumm CDR HISTORICAL RESULTS Blood specimen (specimen) 04/05/2016 12:21 AM CDT us Dayrn Clark MD PhD LAB BLOOD ORDERABLES Tiffany l Result Performing Organization Address [facility] de Phone Number CDR HISTORICAL RESULTS * Blood cell morphologic exam (04/05/2016 12:21 AM CDT) Monos 9.7 % CDR HISTOR ICAL RESULTS Neutrophils 49.4 % CDR HIST ORICAL RESULTS Eosinophils 0.7 % CDR HIST ORICAL RESULTS Immature granulocytes 0.2 % CDR HISTORICAL RESULTS Basophils 0.4 % CDR HISTOR ICAL RESULTS Lymphocytes 39.6 % CDR HIST ORICAL RESULTS Neutrophils, abs 2.8 1.7 - 6.5 K/cumm CDR HISTORICAL RESULTS Immature granulocyte, abs 0.0 0.0 - 0.1 K/cumm CDR HISTORICAL RESULTS Lymphocytes, abs 2.2 0.8 - 3.3 K/cumm CDR HISTORICAL RESULTS Monocytes, absolute 0.6 0.2 - 0.8 K/cumm CDR HISTORICAL RESULTS Eosinophils, abs 0.0 0.0 - 0.5 K/cumm CDR HISTORICAL RESULTS Basophils, abs 0.0 0.0 - 0.1 K/cumm CDR HISTORICAL RESULTS Blood specimen (specimen) 04/05/2016 12:21 AM CDT us Daryn Clark MD PhD LAB BLOOD ORDERABLES Tiffany l Result Performing Organization Address [facility] de Phone Number CDR HISTORICAL RESULTS * (ABNORMAL) Plasma partial thromboplastin time (PTT) (04/04/2016 12:22 AM CDT) APTT 40.3(H) 25.0 - 37.0 seconds CDR HISTORICAL RESULTS Comment: Interpretive Data Therapeutic heparin range:60.0 - 94.0 sec based on correlation with therapeutic heparin activity range of 0.3 -0.7 Units/mL. Current interpretive data was last revised on 2011. Plasma 04/04/2016 12:2 2 AM CDT Saurav Robles MD LAB BLOOD ORDERABLES Fi nal Result Performing Organization Address City/[facility]/ZIP Co de Phone Number CDR HISTORICAL RESULTS * (ABNORMAL) Plasma basic metabolic panel (04/04/2016 12:22 AM CDT) Sodium 139 135 - 145 mmol/L CDR HISTORICAL RESULTS K, pl 3.7 3.3 - 4.9 mmol/L CDR HISTORICAL RESULTS Chloride 104 97 - 110 mmol/L CDR HISTORICAL RESULTS CO2 20(L) 22 - 32 mmol/L CDR HISTORICAL RESULTS A. gap 15 2 - 15 mmol/L CDR HISTORICAL RESULTS Glucose 97 70 - 199 mg/dl CDR HISTORICAL RESULTS BUN 12 8 - 25 mg/dl CDR HISTORICAL RESULTS Creatinine 0.64 0.60 - 1.10 mg/dl CDR HISTORICAL RESULTS Calcium 9.2 8.5 - 10.3 mg/dl CDR HISTORICAL RESULTS Plasma 04/04/2016 12:2 2 AM CDT Daryn Clark MD PhD LAB BLOOD ORDERABLES Tiffany l Result CDR HISTORICAL RESULTS * Blood cell count (CBC) (04/04/2016 12:22 AM CDT) WBC 5.9 3.8 - 9.9 K/cumm CDR HISTORICAL RESULTS RBC 4.09 3.90 - 5.20 M/cumm CDR HISTORICAL RESULTS Hgb 12.8 11.9 - 15.5 g/dl CDR HISTORICAL RESULTS Hct 36.6 35.6 - 45.5 % CDR HISTORICAL RESULTS MCV 89.5 81.3 - 96.4 fl CDR HISTORICAL RESULTS MCH 31.3 27.1 - 33.3 pg CDR HISTORICAL RESULTS MCHC 35.0 32.3 - 35.7 g/dl CDR HISTORICAL RESULTS Rdw 13.2 11.1 - 14.9 % CDR HISTORICAL RESULTS RDW 43.1 35.7 - 48.1 fl CDR HISTORICAL RESULTS Platelets 211 150 - 400 K/cumm CDR HISTORICAL RESULTS MPV 9.3 9.1 - 12.3 fl CDR HISTORICAL RESULTS NRBC 0.0 0.0 - 0.2 % CDR HIST ORICAL RESULTS NRBC, abs 0.00 0.00 - 0.01 K/cumm CDR HISTORICAL RESULTS Blood specimen (specimen) 04/04/2016 12:22 AM CDT us Daryn Clark MD PhD LAB BLOOD ORDERABLES Tiffany l Result Performing Organization Address [facility] Co de Phone Number CDR HISTORICAL RESULTS * Blood cell morphologic exam (04/04/2016 12:22 AM CDT) Neutrophils 58.3 % CDR HIST ORICAL RESULTS Immature granulocytes 0.3 % CDR HISTORICAL RESULTS Lymphocytes 31.0 % CDR HIST ORICAL RESULTS Monos 9.4 % CDR HISTOR ICAL RESULTS Eosinophils 0.7 % CDR HIST ORICAL RESULTS Basophils 0.3 % CDR HISTOR ICAL RESULTS Neutrophils, abs 3.4 1.7 - 6.5 K/cumm CDR HISTORICAL RESULTS Immature granulocyte, abs 0.0 0.0 - 0.1 K/cumm CDR HISTORICAL RESULTS Lymphocytes, abs 1.8 0.8 - 3.3 K/cumm CDR HISTORICAL RESULTS Monocytes, absolute 0.6 0.2 - 0.8 K/cumm CDR HISTORICAL RESULTS Eosinophils, abs 0.0 0.0 - 0.5 K/cumm CDR HISTORICAL RESULTS Basophils, abs 0.0 0.0 - 0.1 K/cumm CDR HISTORICAL RESULTS Blood specimen (specimen) 04/04/2016 12:22 AM CDT us Daryn Clark MD PhD LAB BLOOD ORDERABLES Tiffany l Result Performing Organization Address City/[facility] Co de Phone Number CDR HISTORICAL RESULTS * MRA Neck WWO Contrast (04/03/2016 10:48 PM CDT) Anatomical Region Laterality Modality Head and Neck N/A Magnetic Resonan ce 04/03/2016 10:4 8 PM CDT Narrative 04/04/2016 5:35 PM CDT HAM REINA M.D. BETH OZUNA M.D. FINAL REPORT The radiology attending physician has personally reviewed this study, and has reviewed and/or edited this written report and agrees with it. ACC# ??Date Time ??Exam [id number] Apr 03, 2016 22:48:00 [id number] MRI Brain wo&with contrast [id number] Apr 03, 2016 22:48:00 [id number] MR Angio Neck wo&wi cont ACC# ??Date Time ??Exam [id number] Apr 03, 2016 22:48:00 [id number] MRI Brain wo&with contrast [id number] Apr 03, 2016 22:48:00 [id number] MR Angio Neck wo&wi cont EXAMINATION: Magnetic resonance imaging (MRI) of the brain and brainstem without and with contrast Magnetic resonance angiography (MRA) of the neck without and with contrast HISTORY: 70 year-old female with stroke like symptoms and cerebrovascular disease. TECHNIQUE: Multiplanar multi-weighted MRI of the brain and brainstem was performed without and with intravenous contrast using the general brain protocol. Magnetic resonance angiography of the neck was performed using separate data set acquisitions including a non-contrast [id number] technique and a post-contrast technique to produce axial thin-slice source images. These images were then used to generate maximum intensity projection (MIP) images. Contrast information: 16 mL Dotarem. COMPARISON: Comparison was done with the MRI of the brain without and with contrast from April 01, 2016, CTA of the neck from March 31, 2016 and angiography from April 02, 2016. FINDINGS: MRI BRAIN: Note is made of multiple tiny new foci of diffusion restriction predominantly in the left cerebral hemisphere; however, few of these foci are located in the right cerebral hemisphere as well as the bilateral cerebellar hemispheres. The scalp and calvarium are normal. The superior sagittal sinus demonstrates normal venous flow. The corpus callosum is normal in shape and signal intensity. The posterior fossa is unremarkable. The pituitary and sella are normal. The brainstem and craniocervical junction are unremarkable. The ventricles are normal in size and position without evidence of hydrocephalus. There are no areas of abnormal contrast enhancement. The paranasal sinuses are normal. The visualized portions of the mastoids are unremarkable. The orbits appear normal. 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 There is no extension into the origin of the right common carotid artery. 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 There is atherosclerotic plaque at the bilateral carotid artery bifurcations that is better visualized on prior angiography and has not changed, consistent with 50% stenosis of the right ICA and no significant stenosis of the left ICA. There is poor flow in the right proximal vertebral artery on the [id number] images (which is antegrade velocity sensitive). The post-contrast images demonstrate a relatively normal dominant right vertebral artery however, with only mild irregularity at the origin due to calcification. This suggests that the slow flow is proximal to the origin of the right vertebral artery, possibly from the right innominate. There is again focal occlusion of the distal left vertebral artery at the level of C2 which reconstitutes distally. Limited evaluation of the intracranial vasculature demonstrates patent proximal MCAs, ACAs, basilar, and medical imaging director. No aneurysm or vascular malformation identified. ?? IMPRESSION: 1. 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 2. 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 3. Approximately 50% stenosis of the right internal carotid artery due to calcified atherosclerotic plaque. 4. 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 No significant stenosis of the right vertebral artery. 5. Proximal middle cerebral arteries appear patent; however, the intracranial evaluation is limited on this MRA examination of the neck. ?? Requested By: FLAVIO DAW[facility] Dictated By: ?? BETH OZUNA M.D. ??on Apr 04 2016 ??2:40P This document has been electronically signed by: HAM REINA M.D. on Apr 04 2016 ??5:35P [id number] Procedure Note Provider, MD Nimesh - 01/06/2017 HAM REINA M.D. BETH OZUNA M.D. FINAL REPORT The radiology attending physician has personally reviewed this study, and has reviewed and/or edited this written report and agrees with it. ACC# Date Time Exam [id number] Apr 03, 2016 22:48:00 [id number] MRI Brain wo&with contrast [id number] Apr 03, 2016 22:48:00 [id number] MR Angio Neck wo&wi cont ACC# Date Time Exam [id number] Apr 03, 2016 22:48:00 [id number] MRI Brain wo&with contrast [id number] Apr 03, 2016 22:48:00 [id number] MR Angio Neck wo&wi cont EXAMINATION: Magnetic resonance imaging (MRI) of the brain and brainstem without and with contrast Magnetic resonance angiography (MRA) of the neck without and withcontrast HISTORY: 70 year-old female with stroke like symptoms and cerebrovascular disease. TECHNIQUE: Multiplanar multi-weighted MRI of the brain and brainstem was performed without and with intravenous contrast using the general brain protocol. Magnetic resonance angiography of the neck was performed using separate data set acquisitions including a non-contrast [id number] technique and a post-contrast technique to produce axial thin-slice source images. These images were then used to generate maximum intensity projection (MIP) images. Contrast information: 16 mL Dotarem. COMPARISON: Comparison was done with the MRI of the brain without and with contrast from April 01, 2016, CTA of the neck from March 31, 2016 and angiography from April 02, 2016. FINDINGS: MRI BRAIN: Note is made of multiple tiny new foci of diffusion restriction predominantly in the left cerebral hemisphere; however, few of these foci are located in the right cerebral hemisphere as well as the bilateral cerebellar hemispheres. The scalp and calvarium are normal. The superior sagittal sinus demonstrates normal venous flow. The corpus callosum is normal in shape and signal intensity. The posterior fossa is unremarkable. The pituitary and sella are normal. The brainstem and craniocervical junction are unremarkable. The ventricles are normal in size and position without evidence of hydrocephalus. There are no areas of abnormal contrast enhancement. The paranasal sinuses are normal. The visualized portions of the mastoids are unremarkable. The orbits appear normal. 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 There is no extension into the origin of the right common carotid artery. 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 There is atherosclerotic plaque at the bilateral carotid artery bifurcations that is better visualized on prior angiography and has not changed, consistent with 50% stenosis of the right ICA and no significant stenosis of the left ICA. There is poor flow in the right proximal vertebral artery on the gsyx-ax-gugkpk images (which is antegrade velocity sensitive). The post-contrast images demonstrate a relatively normal dominant right vertebral artery however, with only mild irregularity at the origin due to calcification. This suggests that the slow flow is proximal to the origin of the right vertebral artery, possibly from the right innominate. There is again focal occlusion of the distal left vertebral artery at the level of C2 which reconstitutes distally. Limited evaluation of the intracranial vasculature demonstrates patent proximal MCAs, ACAs, basilar, and medical imaging director. No aneurysm or vascular malformation identified. IMPRESSION: 1. 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 2. 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 3. Approximately 50% stenosis of the right internal carotid artery due to calcified atherosclerotic plaque. 4. 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 No significant stenosis of the right vertebral artery. 5. Proximal middle cerebral arteries appear patent; however, the intracranial evaluation is limited on this MRA examination of the neck. Requested By: FLAVIO DAWSON [facility] Dictated By: BETH OZUNA M.D. on Apr 04 2016 2:40P This document has been electronically signed by: HAM REINA M.D. on Apr 04 2016 5:35P [id number] us Historical Provider MD GEORGE MRI PROCEDURES Final Result * MRI Brain WWO Contrast (04/03/2016 10:48 PM CDT) Anatomical Region Laterality Modality Head and Neck N/A Magnetic Resonan ce 04/03/2016 10:4 8 PM CDT Narrative 04/04/2016 5:35 PM CDT HAM REINA M.D. BETH OZUNA M.D. FINAL REPORT The radiology attending physician has personally reviewed this study, and has reviewed and/or edited this written report and agrees with it. ACC# ??Date Time ??Exam [id number] Apr 03, 2016 22:48:00 [id number] MRI Brain wo&with contrast [id number] Apr 03, 2016 22:48:00 [id number] MR Angio Neck wo&wi cont ACC# ??Date Time ??Exam [id number] Apr 03, 2016 22:48:00 [id number] MRI Brain wo&with contrast [id number] Apr 03, 2016 22:48:00 [id number] MR Angio Neck wo&wi cont EXAMINATION: Magnetic resonance imaging (MRI) of the brain and brainstem without and with contrast Magnetic resonance angiography (MRA) of the neck without and with contrast HISTORY: 70 year-old female with stroke like symptoms and cerebrovascular disease. TECHNIQUE: Multiplanar multi-weighted MRI of the brain and brainstem was performed without and with intravenous contrast using the general brain protocol. Magnetic resonance angiography of the neck was performed using separate data set acquisitions including a non-contrast tjqd-[id number]-hvzjvh technique and a post-contrast technique to produce axial thin-slice source images. These images were then used to generate maximum intensity projection (MIP) images. Contrast information: 16 mL Dotarem. COMPARISON: Comparison was done with the MRI of the brain without and with contrast from April 01, 2016, CTA of the neck from March 31, 2016 and angiography from April 02, 2016. FINDINGS: MRI BRAIN: Note is made of multiple tiny new foci of diffusion restriction predominantly in the left cerebral hemisphere; however, few of these foci are located in the right cerebral hemisphere as well as the bilateral cerebellar hemispheres. The scalp and calvarium are normal. The superior sagittal sinus demonstrates normal venous flow. The corpus callosum is normal in shape and signal intensity. The posterior fossa is unremarkable. The pituitary and sella are normal. The brainstem and craniocervical junction are unremarkable. The ventricles are normal in size and position without evidence of hydrocephalus. There are no areas of abnormal contrast enhancement. The paranasal sinuses are normal. The visualized portions of the mastoids are unremarkable. The orbits appear normal. 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 There is no extension into the origin of the right common carotid artery. 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 There is atherosclerotic plaque at the bilateral carotid artery bifurcations that is better visualized on prior angiography and has not changed, consistent with 50% stenosis of the right ICA and no significant stenosis of the left ICA. There is poor flow in the right proximal vertebral artery on the rkwr-bd-hvybds images (which is antegrade velocity sensitive). The post-contrast images demonstrate a relatively normal dominant right vertebral artery however, with only mild irregularity at the origin due to calcification. This suggests that the slow flow is proximal to the origin of the right vertebral artery, possibly from the right innominate. There is again focal occlusion of the distal left vertebral artery at the level of C2 which reconstitutes distally. Limited evaluation of the intracranial vasculature demonstrates patent proximal MCAs, ACAs, basilar, and medical imaging director. No aneurysm or vascular malformation identified. ?? IMPRESSION: 1. 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 2. 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 3. Approximately 50% stenosis of the right internal carotid artery due to calcified atherosclerotic plaque. 4. 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 No significant stenosis of the right vertebral artery. 5. Proximal middle cerebral arteries appear patent; however, the intracranial evaluation is limited on this MRA examination of the neck. ?? Requested By: FLAVIO [facility] Dictated By: ?? BETH OZUNA M.D. ??on Apr 04 2016 ??2:40P This document has been electronically signed by: HAM REINA M.D. on Apr 04 2016 ??5:35P [id number] Procedure Note Provider, MD Nimesh - 01/06/2017 HAM REINA M.D. BETH OZUNA M.D. FINAL REPORT The radiology attending physician has personally reviewed this study, and has reviewed and/or edited this written report and agrees with it. ACC# Date Time Exam [id number] Apr 03, 2016 22:48:00 [id number] MRI Brain wo&with contrast [id number] Apr 03, 2016 22:48:00 [id number] MR Angio Neck wo&wi cont ACC# Date Time Exam [id number] Apr 03, 2016 22:48:00 [id number] MRI Brain wo&with contrast [id number] Apr 03, 2016 22:48:00 [id number] MR Angio Neck wo&wi cont EXAMINATION: Magnetic resonance imaging (MRI) of the brain and brainstem without and with contrast Magnetic resonance angiography (MRA) of the neck without and withcontrast HISTORY: 70 year-old female with stroke like symptoms and cerebrovascular disease. TECHNIQUE: Multiplanar multi-weighted MRI of the brain and brainstem was performed without and with intravenous contrast using the general brain protocol. Magnetic resonance angiography of the neck was performed using separate data set acquisitions including a non-contrast qfip-pz-waahbl technique and a post-contrast technique to produce axial thin-slice source images. These images were then used to generate maximum intensity projection (MIP) images. Contrast information: 16 mL Dotarem. COMPARISON: Comparison was done with the MRI of the brain without and with contrast from April 01, 2016, CTA of the neck from March 31, 2016 and angiography from April 02, 2016. FINDINGS: MRI BRAIN: Note is made of multiple tiny new foci of diffusion restriction predominantly in the left cerebral hemisphere; however, few of these foci are located in the right cerebral hemisphere as well as the bilateral cerebellar hemispheres. The scalp and calvarium are normal. The superior sagittal sinus demonstrates normal venous flow. The corpus callosum is normal in shape and signal intensity. The posterior fossa is unremarkable. The pituitary and sella are normal. The brainstem and craniocervical junction are unremarkable. The ventricles are normal in size and position without evidence of hydrocephalus. There are no areas of abnormal contrast enhancement. The paranasal sinuses are normal. The visualized portions of the mastoids are unremarkable. The orbits appear normal. 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 There is no extension into the origin of the right common carotid artery. 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 There is atherosclerotic plaque at the bilateral carotid artery bifurcations that is better visualized on prior angiography and has not changed, consistent with 50% stenosis of the right ICA and no significant stenosis of the left ICA. There is poor flow in the right proximal vertebral artery on the exee-no-mqzxvm images (which is antegrade velocity sensitive). The post-contrast images demonstrate a relatively normal dominant right vertebral artery however, with only mild irregularity at the origin due to calcification. This suggests that the slow flow is proximal to the origin of the right vertebral artery, possibly from the right innominate. There is again focal occlusion of the distal left vertebral artery at the level of C2 which reconstitutes distally. Limited evaluation of the intracranial vasculature demonstrates patent proximal MCAs, ACAs, basilar, and medical imaging director. No aneurysm or vascular malformation identified. IMPRESSION: 1. 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 2. 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 3. Approximately 50% stenosis of the right internal carotid artery due to calcified atherosclerotic plaque. 4. 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 No significant stenosis of the right vertebral artery. 5. Proximal middle cerebral arteries appear patent; however, the intracranial evaluation is limited on this MRA examination of the neck. Requested By: FLAVIO [facility] Dictated By: BETH OZUNA M.D. on Apr 04 2016 2:40P This document has been electronically signed by: HAM REINA M.D. on Apr 04 2016 5:35P [id number] us Historical Provider MD GEORGE MRI PROCEDURES Final Result * (ABNORMAL) Plasma partial thromboplastin time (PTT) (04/03/2016 10:56 AM CDT) APTT >150.0(C) 25.0 - 37.0 seconds CDR HISTORICAL RESULTS Comment: Verified. Interpretive Data Therapeutic heparin range:60.0 - 94.0 sec based on correlation with therapeutic heparin activity range of 0.3 -0.7 Units/mL. Current interpretive data was last revised on 2011. Plasma 04/03/2016 10:5 6 AM CDT us Wooten Ronald [facility] LAB BLOOD ORDERABLES Final Re sult Performing Organization Address [facility] de Phone Number CDR HISTORICAL RESULTS * Critical result call back (04/03/2016 10:56 AM CDT) Date notified 04/03/2016 CDR H ISTORICAL RESULTS Time notified 1157 CDR HI STORICAL RESULTS Test name aPTT CDR HISTOR ICAL RESULTS Called to Tash [place] CDR HISTORICAL RESULTS Credentials RN CDR HIST ORICAL RESULTS Called by yoly CDR HISTOR ICAL RESULTS No specimen 04/03/2016 10:5 6 AM CDT us Wooten Ronald [facility] LAB BLOOD ORDERABLES Final Re sult Performing Organization Address [facility] Phone Number CDR HISTORICAL RESULTS * (ABNORMAL) Plasma partial thromboplastin time (PTT) (04/03/2016 4:56 AM CDT) APTT > 150.0(C) 25.0 - 37.0 seconds CDR HISTORICAL RESULTS Comment: verified Interpretive Data Therapeutic heparin range:60.0 - 94.0 sec based on correlation with therapeutic heparin activity range of 0.3 -0.7 Units/mL. Current interpretive data was last revised on 2011. Plasma 04/03/2016 4:56 AM CDT us Wooten Ronald [facility] LAB BLOOD ORDERABLES Final Re sult Performing Organization Address [facility] de Phone Number CDR HISTORICAL RESULTS * Critical result call back (04/03/2016 4:56 AM CDT) Date notified 04/03/2016 CDR H ISTORICAL RESULTS Time notified [phone] CDR HI STORICAL RESULTS Test name aPTT CDR HISTOR ICAL RESULTS Called to Deedee Alexandra CDR HISTORICAL RESULTS Credentials RN CDR HIST ORICAL RESULTS Called by zohra CDR HISTOR ICAL RESULTS No specimen 04/03/2016 4:56 AM CDT Sugar Cardenas DNP LAB BLOOD ORDERABLES Final Re sult Performing Organization Address [facility] Co de Phone Number CDR HISTORICAL RESULTS * (ABNORMAL) Plasma partial thromboplastin time (PTT) (04/03/2016 3:31 AM CDT) APTT >150.0(C) 25.0 - 37.0 seconds CDR HISTORICAL RESULTS Comment: Verified Interpretive Data Therapeutic heparin range:60.0 - 94.0 sec based on correlation with therapeutic heparin activity range of 0.3 -0.7 Units/mL. Current interpretive data was last revised on 2011. Plasma 04/03/2016 3:31 AM CDT Daryn Clark MD PhD LAB BLOOD ORDERABLES Tiffany l Result Performing Organization Address [facility] de Phone Number CDR HISTORICAL RESULTS * Plasma prothrombin time (PT) (04/03/2016 3:31 AM CDT) Prothrombin time (PT) 12.1 9.2 - 13.0 seconds CDR HISTORICAL RESULTS INR 1.12 0.90 - 1.20 CDR HIST ORICAL RESULTS Comment: Interpretive Data Inpatient therapeutic ranges* Atrial fibrillation ?2.0-3.0 INR Venous thrombo-embolism ?2.0-3.0 INR Bioprosthetic heart valve ?* Mechanical heart valve, bileaflet or tilting disk,aortic position ? 2.0-3.0 INR All other,or bileaflet or tilting disk, in mitral position ? 2.5-3.5 INR *See the pharmacy resource directory (PHRED) for an updated copy of the Tool Book at [email or web address] Current Interpretive Data was last revised 2011. Plasma 04/03/2016 3:31 AM CDT Daryn Clark MD PhD LAB BLOOD ORDERABLES Tiffany l Result Performing Organization Address [facility] Co de Phone Number CDR HISTORICAL RESULTS * Critical result call back (04/03/2016 3:31 AM CDT) Date notified 04/03/2016 CDR H ISTORICAL RESULTS Time notified 441 CDR HI STORICAL RESULTS Test name aPTT CDR HISTOR ICAL RESULTS Called to Stephon Back CDR HISTOR ICAL RESULTS Credentials RN CDR HIST ORICAL RESULTS Called by zohra CDR HISTOR ICAL RESULTS No specimen 04/03/2016 3:31 AM CDT Daryn Clark MD PhD LAB BLOOD ORDERABLES Tiffany l Result Performing Organization Address [facility] de Phone Number CDR HISTORICAL RESULTS * Blood check sample (04/03/2016 1:35 AM CDT) ABO, Rho(D) O Positive CDR HIS TORICAL RESULTS Blood specimen (specimen) 04/03/2016 1:35 AM CDT Zachary Giron MD LAB BLOOD ORDERABLES Tiffany l Result Performing Organization Address [facility] de Phone Number CDR HISTORICAL RESULTS * XR Chest 1 View (04/03/2016 12:59 AM CDT) Anatomical Region Laterality Modality Body, Chest N/A Radiographic Stefanie ging 04/03/2016 12:5 9 AM CDT Narrative 04/03/2016 12:31 PM CDT ADAMARIS HOLM M.D. YOVANNY NUNEZ M.D. FINAL REPORT The radiology attending physician has personally reviewed this study, and has reviewed and/or edited this written report and agrees with it. ACC# ??Date Time ??Exam [id number] Apr 03, 2016 00:59:00 [id number] Chest 1 view Frontal EXAMINATION: ?? Chest one view IMPRESSION: ?? Comparison study is dated 03/31/2016. Multiple small calcified nodules consistent with old granulomatous disease. The lungs are otherwise clear with no pneumothorax, pneumonia, pleural effusion, pulmonary edema, mass, or lymphadenopathy. The cardiomediastinal silhouette is normal. Requested By: DARYN CLARK MD, PHD Dictated By: ?? YOVANNY NUNEZ M.D. ??on Apr 03 2016 11:17A This document has been electronically signed by: ADAMARIS HOLM M.D. on Apr 03 2016 12:31P [id number] Procedure Note Provider, Nimesh, - 01/06/2017 ADAMARIS HOLM M.D. YOVANNY NUNEZ M.D. FINAL REPORT The radiology attending physician has personally reviewed this study, and has reviewed and/or edited this written report and agrees with it. ACC# Date Time Exam [id number] Apr 03, 2016 00:59:00 [id number] Chest 1 view Frontal EXAMINATION: Chest one view IMPRESSION: Comparison study is dated 03/31/2016. Multiple small calcified nodules consistent with old granulomatous disease. The lungs are otherwise clear with no pneumothorax, pneumonia, pleural effusion, pulmonary edema, mass, or lymphadenopathy. The cardiomediastinal silhouette is normal. Requested By: DARYN CLARK MD, PHD Dictated By: YOVANNY NUNEZ M.D. on Apr 03 2016 11:17A This document has been electronically signed by: ADAMARIS HOLM M.D. on Apr 03 2016 12:31P [id number] us Historical Provider IMJacqui XR PROCEDURES Final R esult * Urine microscopy (04/03/2016 12:33 AM CDT) RBC, ur 1 0 - 3 /hpf CDR HISTO RICAL RESULTS WBC, ur 0 0 - 5 /hpf CDR HISTO RICAL RESULTS Bacteria, ur Negative Trace CDR HIS TORICAL RESULTS Epithelial cells, renal, ur 0 0 - 0 /hpf CDR HISTORICAL RESULTS Epithelial cells, squamous, ur 2 /lpf CDR HISTORICAL RESULTS Mucus, ur Small /hpf CDR HISTOR ICAL RESULTS Urine 04/03/2016 12:3 3 AM CDT Saurav Robles MD LAB BLOOD ORDERABLES Fi nal Result CDR HISTORICAL RESULTS * Blood ABO, Rh, indirect ab screen (04/03/2016 12:33 AM CDT) ABO, Rho(D) O Positive CDR HIS TORICAL RESULTS Mara, indirect Negative CDR HISTORICAL RESULTS Blood specimen (specimen) 04/03/2016 12:33 AM CDT Saurav Robles MD LAB BLOOD ORDERABLES Fi nal Result CDR HISTORICAL RESULTS * (ABNORMAL) Plasma comprehensive metabolic panel (04/03/2016 12:32 AM CDT) Sodium 142 135 - 145 mmol/L CDR HISTORICAL RESULTS K, pl 3.7 3.3 - 4.9 mmol/L CDR HISTORICAL RESULTS Chloride 106 97 - 110 mmol/L CDR HISTORICAL RESULTS CO2 21(L) 22 - 32 mmol/L CDR HISTORICAL RESULTS A. gap 15 2 - 15 mmol/L CDR HISTORICAL RESULTS Glucose 102 70 - 199 mg/dl CDR HISTORICAL RESULTS BUN 13 8 - 25 mg/dl CDR HISTORICAL RESULTS Creatinine 0.83 0.60 - 1.10 mg/dl CDR HISTORICAL RESULTS Calcium 9.7 8.5 - 10.3 mg/dl CDR HISTORICAL RESULTS Protein, pl 7.3 6.5 - 8.5 g/dl CDR HISTORICAL RESULTS Alb 4.2 3.5 - 5.0 g/dl CDR HISTORICAL RESULTS Bilirubin 0.4 0.1 - 1.2 mg/dl CDR HISTORICAL RESULTS Alk phos 69 40 - 130 Units/L CDR HISTORICAL RESULTS AST 23 10 - 45 Units/L CDR HISTORICAL RESULTS ALT 31 7 - 45 Units/L CDR HISTORICAL RESULTS Plasma 04/03/2016 12:3 2 AM CDT Saurav Robles MD LAB BLOOD ORDERABLES Fi nal Result Performing Organization Address [facility] Co de Phone Number CDR HISTORICAL RESULTS * Plasma phosphorus (04/03/2016 12:32 AM CDT) Phosphorus, pl 3.8 2.3 - 4.5 mg/dl CDR HISTORICAL RESULTS Plasma 04/03/2016 12:3 2 AM CDT Saurav Robles MD LAB BLOOD ORDERABLES nal Result Performing Organization Address [facility] de Phone Number CDR HISTORICAL RESULTS * Serum magnesium (04/03/2016 12:32 AM CDT) Magnesium 2.1 1.4 - 2.5 mg/dl CDR HISTORICAL RESULTS Serum 04/03/2016 12:3 2 AM CDT Saurav Robles MD LAB BLOOD ORDERABLES nal Result Performing Organization Address [facility] de Phone Number CDR HISTORICAL RESULTS * Blood cell count (CBC) (04/03/2016 12:32 AM CDT) WBC 6.3 3.8 - 9.9 K/cumm CDR HISTORICAL RESULTS RBC 4.51 3.90 - 5.20 M/cumm CDR HISTORICAL RESULTS Hgb 14.0 11.9 - 15.5 g/dl CDR HISTORICAL RESULTS Hct 41.1 35.6 - 45.5 % CDR HISTORICAL RESULTS MCV 91.1 81.3 - 96.4 fl CDR HISTORICAL RESULTS MCH 31.0 27.1 - 33.3 pg CDR HISTORICAL RESULTS MCHC 34.1 32.3 - 35.7 g/dl CDR HISTORICAL RESULTS Rdw 13.2 11.1 - 14.9 % CDR HISTORICAL RESULTS RDW 44.0 35.7 - 48.1 fl CDR HISTORICAL RESULTS Platelets 212 150 - 400 K/cumm CDR HISTORICAL RESULTS MPV 9.4 9.1 - 12.3 fl CDR HISTORICAL RESULTS NRBC 0.0 0.0 - 0.2 % CDR HIST ORICAL RESULTS NRBC, abs 0.00 0.00 - 0.01 K/cumm CDR HISTORICAL RESULTS Blood specimen (specimen) 04/03/2016 12:32 AM CDT Sugar Cardenas [facility] LAB BLOOD ORDERABLES Final Re sult CDR HISTORICAL RESULTS * Blood cell morphologic exam (04/03/2016 12:32 AM CDT) Neutrophils 61.8 % CDR HIST ORICAL RESULTS Immature granulocytes 0.5 % CDR HISTORICAL RESULTS Lymphocytes 28.8 % CDR HIST ORICAL RESULTS Monos 8.3 % CDR HISTOR ICAL RESULTS Eosinophils 0.3 % CDR HIST ORICAL RESULTS Basophils 0.3 % CDR HISTOR ICAL RESULTS Neutrophils, abs 3.9 1.7 - 6.5 K/cumm CDR HISTORICAL RESULTS Immature granulocyte, abs 0.0 0.0 - 0.1 K/cumm CDR HISTORICAL RESULTS Lymphocytes, abs 1.8 0.8 - 3.3 K/cumm CDR HISTORICAL RESULTS Monocytes, absolute 0.5 0.2 - 0.8 K/cumm CDR HISTORICAL RESULTS Eosinophils, abs 0.0 0.0 - 0.5 K/cumm CDR HISTORICAL RESULTS Basophils, abs 0.0 0.0 - 0.1 K/cumm CDR HISTORICAL RESULTS Blood specimen (specimen) 04/03/2016 12:32 AM CDT Sugar Cardenas [facility] LAB BLOOD ORDERABLES Final Re sult Performing Organization Address [facility]/ZIP Co de Phone Number CDR HISTORICAL RESULTS * Blood glucose, POC (04/03/2016 12:04 AM CDT) Glucose, POC, bld 100 70 - 199 mg/dl CDR HISTORICAL RESULTS Blood specimen (specimen) 04/03/2016 12:04 AM CDT Zachary Giron MD LAB BLOOD ORDERABLES Tiffany l Result CDR HISTORICAL RESULTS * ELECTROCARDIOGRAPHY (ECG) (04/03/2016) Narrative 04/03/2016 Ordered by an unspecified provider. Historical Provider MD ECG ORDERABLES Final Res ult * (ABNORMAL) Plasma partial thromboplastin time (PTT) (04/02/2016 8:35 PM CDT) APTT 48.2(H) 25.0 - 37.0 seconds CDR HISTORICAL RESULTS Comment: Interpretive Data Therapeutic heparin range:60.0 - 94.0 sec based on correlation with therapeutic heparin activity range of 0.3 -0.7 Units/mL. Current interpretive data was last revised on 2011. Plasma 04/02/2016 8:35 PM CDT Sugar Cardenas DNP LAB BLOOD ORDERABLES Final Re sult Performing Organization Address City/State/[facility] Co de Phone Number CDR HISTORICAL RESULTS * Blood cell count [CBC] express (04/02/2016 8:35 PM CDT) WBC 6.6 3.8 - 9.9 K/cumm CDR HISTORICAL RESULTS RBC 4.43 3.90 - 5.20 M/cumm CDR HISTORICAL RESULTS Hgb 13.5 11.9 - 15.5 g/dl CDR HISTORICAL RESULTS Hct 40.7 35.6 - 45.5 % CDR HISTORICAL RESULTS MCV 91.9 81.3 - 96.4 fl CDR HISTORICAL RESULTS MCH 30.5 27.1 - 33.3 pg CDR HISTORICAL RESULTS MCHC 33.2 32.3 - 35.7 g/dl CDR HISTORICAL RESULTS Rdw 13.2 11.1 - 14.9 % CDR HISTORICAL RESULTS RDW 45.1 35.7 - 48.1 fl CDR HISTORICAL RESULTS NRBC 0.0 0.0 - 0.2 % CDR HIST ORICAL RESULTS NRBC, abs 0.00 0.00 - 0.01 K/cumm CDR HISTORICAL RESULTS Platelets 224 150 - 400 K/cumm CDR HISTORICAL RESULTS MPV 9.7 9.1 - 12.3 fl CDR HISTORICAL RESULTS Blood specimen (specimen) 04/02/2016 8:35 PM CDT Sugar Cardenas DNP LAB BLOOD ORDERABLES Final Re sult CDR HISTORICAL RESULTS * Angio Non-Selective Great Vessel (04/02/2016 3:59 PM CDT) Anatomical Region Laterality Modality Body N/A X-Ray Angiograph y 04/02/2016 3:59 PM CDT Narrative 04/07/2016 12:50 PM CDT SISSY WELLS M.D. KEVAN DUMONT M.D. FINAL REPORT The radiology attending physician has personally reviewed this study, and has reviewed and/or edited this written report and agrees with it. 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 She has asymmetric blood pressures in the right and left arms suggestive of right subclavian stenosis. Non-invasive imaging studies have demonstrated heavily calcified plaque. Further evaluation by conventional angiography is requested by Dr. Giron. ATTENDING PHYSICIAN: Dr. Wells was present for the entire procedure. ASSISTING PHYSICIANS: Dr. Adrien Tolliver (fellow) Dr. Kevan Dumont (fellow), and Dr. Paulo Dumont (resident) CONTRAST: Optiray-320 ??mL TECHNIQUE: Following a discussion of the risks, benefits, and alternatives to the procedure, and after all questions about the procedure had been answered, the patient provided written informed consent. Specific risks discussed included stroke, permanent and transient neurological deficits, vascular injury, bleeding, and hematoma formation. Moderate sedation (intravenous fentanyl and midazolam) was administered under the direction of the attending physician with continuous monitoring by a trained nurse specialist independent of those performing the procedure. Total monitored sedation time was ??minutes. The patient was prepared and draped in the standard sterile fashion. The femoral head was localized by fluoroscopy. Buffered 1% lidocaine was infiltrated into the subcutaneous soft tissues overlying the planned site of vascular access, and time was allotted for good anesthetic effect. The right femoral artery was punctured using a 19-gauge modified Arce needle. A 5 Anguillan sheath was inserted over a J-wire and connected to a regulated pressurized infusion of heparinized saline. A 5 Anguillan pigtail catheter was advanced over the wire to the aortic arch and an aortic arch injection of contrast was performed to image the arch and brachiocephalic vessels in URUGUAYAN and RASMUSSEN projections. The pigtail catheter was then removed over the wire. A 5 Anguillan HN4 and JB2 catheter were introduced over the wire, then used in conjunction with a Roadrunner wire to select the right common carotid and left common carotid arteries. In each selected vessel, contrast was injected for imaging in multiple projections. Images of the cervical and cranial vessels were obtained for interpretation. Immediately after the left carotid selective injections and a review of those images showing a probable embolus in at the left MCA bifurcation (see below), the patient was re-examined and found to have a moderate expressive aphasia but no motor or sensory deficits. The catheter was removed from the vessel. The patient was re-examined repeatly over the next 60 minutes on the table, and the expressive aphasia completely resolved. During that period of time, a new 5 Anguillan pigtail catheter was introduced into the aortic arch over a J-wire and used to re-inject the aortic arch for imaging of the intracranial arteries, so as to avoid further manipulation of either carotid artery. Once the patient and imaging were stable, the catheter was then removed. Hemostasis was achieved after sheath removal by manual compression. The patient was transported to the recovery area in stable neurological condition. FINDINGS: AORTIC ARCH: Heavily calcified atherosclerotic plaque is noted involving the innominate artery, the left common carotid artery origin, and the right subclavian artery origin, which makes it difficult to accurately quantify the degree of stenosis. However, there is mild slowing of flow in the right subclavian artery compared to the left subclavian artery, despite the closer proximity to the site of contrast injection with the pigtail catheter, probably as a result of high-grade innominate and/or proximal right subclavian stenosis secondary to the heavily calcified atherosclerotic plaque described above. The right vertebral artery is dominant without origin stenosis, and its cervical course appears non-stenotic. The left vertebral artery is small, is not visualized proximally (so is likely proximally occlused), but is reconstituted distally. CAROTID BIFURCATIONS: The right carotid bifurcation lies at C3-C4 level. There is approximately 50% stenosis at the right internal carotid artery origin. There is mild right common carotid artery and right external carotid artery stenosis. The left carotid bifurcation lies at C3-C4 level. Calcified atherosclerotic plaque is noted at the carotid bifurcation resulting in approximately 60% stenosis at the left external carotid artery origin. There is minor stenosis of the left common carotid artery, however there is no stenosis of the left internal carotid artery origin. Note is made of relatively slow wash-out of contrast in the left common and internal carotid arteries, which may be the result of partial obstruction of the origin of that vessel with the catheter in place (not seen on the aortic arch injection). CRANIAL VESSELS: A filling defect is noted in the left middle cerebral artery bifurcation, which is partially obstructive. There is antegrade opacification of the anterior division of the left middle cerebral artery, however the posterior division of left middle cerebral artery is opacified only through the pial collaterals that opcaify those branches in a retrograde manner. There is otherwise no intracranial internal carotid artery stenosis. The right middle cerebral and both anterior cerebral arteries appear normal. An anterior communicating artery is present and fills from the left. The posterior communicating arteries are present. There is no distal left vertebral or basilar artery stenosis. The repeat aortic arch injections performed over about 60 minutes to re-evaluate the left MCA demonstrate no change, i.e. persistence of the filling defect at the left MCA bifurcation. These findings and events were discussed with Dr. Giron by Dr. Wells at 4:20 p.m., and a decision was made to monitor the patient overnight and begin an intravenous heparin infusion starting 2-hours following the completion of procedure. ?? IMPRESSION: 1. Partially obstructive filling defect in the left middle cerebral artery bifurcation, with retrograde opacification of the posterior division of left middle cerebral artery through the pial collaterals. This defect was not seen on a recent CTA of the head and is most likely an embolus that occurred intra-procedurally. The patient had a transient period of expressive aphasia, but recovered completely on the table, despite the persistence of the defect on follow-up imaging over 60 minutes. Because she was neurologically normal and had good pial collateral flow demonstrated, and because the embolus likely originated from plaque at the LCCA origin, no attempt at re-catherization of that carotid artery and clot retrieval was made. A heparin infusion was planned. 2. Heavily calcified atherosclerotic plaque involving the innominate, left common carotid, and right subclavian arteries' origins, with resulting possible high-grade stenosis. 3. 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 These findings were discussed with Dr. Giron by Dr. Wells and with Dr. Cardenas by Dr. Dumont at 4.20 p.m. and 4:25 p.m. respectively on 04/02/2016. ?? Requested By: TASH LAST M.D. Dictated By: ?? KEVAN DUMONT M.D. ??on Apr 02 2016 ??7:13P This document has been electronically signed by: SISSY WELLS M.D. on Apr ??2015 12:50P Procedure Note Provider, MD Nimesh - 01/06/2017 Laura LOREDO M.D. FINAL REPORT The radiology attending physician has personally reviewed this study, and has reviewed and/or edited this written report and agrees with it. 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 She has asymmetric blood pressures in the right and left arms suggestive of right subclavian stenosis. Non-invasive imaging studies have demonstrated heavily calcified plaque. Further evaluation by conventional angiography is requested by Dr. Giron. ATTENDING PHYSICIAN: Dr. Wells was present for the entire procedure. ASSISTING PHYSICIANS: Dr. Adrien Tolliver (fellow) Dr. Kevan Dumont (fellow), and Dr. Paulo Dumont (resident) CONTRAST: Optiray-320 mL TECHNIQUE: Following a discussion of the risks, benefits, and alternatives to the procedure, and after all questions about the procedure had been answered, the patient provided written informed consent. Specific risks discussed included stroke, permanent and transient neurological deficits, vascular injury, bleeding, and hematoma formation. Moderate sedation (intravenous fentanyl and midazolam) was administered under the direction of the attending physician with continuous monitoring by a trained nurse specialist independent of those performing the procedure. Total monitored sedation time was minutes. The patient was prepared and draped in the standard sterile fashion. The femoral head was localized by fluoroscopy. Buffered 1% lidocaine was infiltrated into the subcutaneous soft tissues overlying the planned site of vascular access, and time was allotted for good anesthetic effect. The right femoral artery was punctured using a 19-gauge modified Arce needle. A 5 Anguillan sheath was inserted over a J-wire and connected to a regulated pressurized infusion of heparinized saline. A 5 Anguillan pigtail catheter was advanced over the wire to the aortic arch and an aortic arch injection of contrast was performed to image the arch and brachiocephalic vessels in URUGUAYAN and RASMUSSEN projections. The pigtail catheter was then removed over the wire. A 5 Anguillan HN4 and JB2 catheter were introduced over the wire, then used in conjunction with a Roadrunner wire to select the right common carotid and left common carotid arteries. In each selected vessel, contrast was injected for imaging in multiple projections. Images of the cervical and cranial vessels were obtained for interpretation. Immediately after the left carotid selective injections and a review of those images showing a probable embolus in at the left MCA bifurcation (see below), the patient was re-examined and found to have a moderate expressive aphasia but no motor or sensory deficits. The catheter was removed from the vessel. The patient was re-examined repeatly over the next 60 minutes on the table, and the expressive aphasia completely resolved. During that period of time, a new 5 Anguillan pigtail catheter was introduced into the aortic arch over a J-wire and used to re-inject the aortic arch for imaging of the intracranial arteries, so as to avoid further manipulation of either carotid artery. Once the patient and imaging were stable, the catheter was then removed. Hemostasis was achieved after sheath removal by manual compression. The patient was transported to the recovery area in stable neurological condition. FINDINGS: AORTIC ARCH: Heavily calcified atherosclerotic plaque is noted involving the innominate artery, the left common carotid artery origin, and the right subclavian artery origin, which makes it difficult to accurately quantify the degree of stenosis. However, there is mild slowing of flow in the right subclavian artery compared to the left subclavian artery, despite the closer proximity to the site of contrast injection with the pigtail catheter, probably as a result of high-grade innominate and/or proximal right subclavian stenosis secondary to the heavily calcified atherosclerotic plaque described above. The right vertebral artery is dominant without origin stenosis, and its cervical course appears non-stenotic. The left vertebral artery is small, is not visualized proximally (so is likely proximally occlused), but is reconstituted distally. CAROTID BIFURCATIONS: The right carotid bifurcation lies at C3-C4 level. There is approximately 50% stenosis at the right internal carotid artery origin. There is mild right common carotid artery and right external carotid artery stenosis. The left carotid bifurcation lies at C3-C4 level. Calcified atherosclerotic plaque is noted at the carotid bifurcation resulting in approximately 60% stenosis at the left external carotid artery origin. There is minor stenosis of the left common carotid artery, however there is no stenosis of the left internal carotid artery origin. Note is made of relatively slow wash-out of contrast in the left common and internal carotid arteries, which may be the result of partial obstruction of the origin of that vessel with the catheter in place (not seen on the aortic arch injection). CRANIAL VESSELS: A filling defect is noted in the left middle cerebral artery bifurcation, which is partially obstructive. There is antegrade opacification of the anterior division of the left middle cerebral artery, however the posterior division of left middle cerebral artery is opacified only through the pial collaterals that opcaify those branches in a retrograde manner. There is otherwise no intracranial internal carotid artery stenosis. The right middle cerebral and both anterior cerebral arteries appear normal. An anterior communicating artery is present and fills from the left. The posterior communicating arteries are present. There is no distal left vertebral or basilar artery stenosis. The repeat aortic arch injections performed over about 60 minutes to re-evaluate the left MCA demonstrate no change, i.e. persistence of the filling defect at the left MCA bifurcation. These findings and events were discussed with Dr. Giron by Dr. Wells at 4:20 p.m., and a decision was made to monitor the patient overnight and begin an intravenous heparin infusion starting 2-hours following the completion of procedure. IMPRESSION: 1. Partially obstructive filling defect in the left middle cerebral artery bifurcation, with retrograde opacification of the posterior division of left middle cerebral artery through the pial collaterals. This defect was not seen on a recent CTA of the head and is most likely an embolus that occurred intra-procedurally. The patient had a transient period of expressive aphasia, but recovered completely on the table, despite the persistence of the defect on follow-up imaging over 60 minutes. Because she was neurologically normal and had good pial collateral flow demonstrated, and because the embolus likely originated from plaque at the LCCA origin, no attempt at re-catherization of that carotid artery and clot retrieval was made. A heparin infusion was planned. 2. Heavily calcified atherosclerotic plaque involving the innominate, left common carotid, and right subclavian arteries' origins, with resulting possible high-grade stenosis. 3. 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 These findings were discussed with Dr. Giron by Dr. Wells and with Dr. Cardenas by Dr. Dumont at 4.20 p.m. and 4:25 p.m. respectively on 04/02/2016. Requested By: TASH LAST M.D. Dictated By: KEVAN DUMONT M.D. on Apr 02 2016 7:13P This document has been electronically signed by: SISSY WELLS M.D. on Apr 07 2016 12:50P us Historical Provider MD GEORGE IR PROCEDURES Final R esult * Angio Non-Selective Great Vessel (04/02/2016 3:59 PM CDT) Anatomical Region Laterality Modality Body N/A X-Ray Angiograph y 04/02/2016 3:59 PM CDT Narrative 04/07/2016 12:50 PM CDT DEWITTE CROSS, M.D. MUDASSAR JULIA, M.D. FINAL REPORT The radiology attending physician has personally reviewed this study, and has reviewed and/or edited this written report and agrees with it. 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 She has asymmetric blood pressures in the right and left arms suggestive of right subclavian stenosis. Non-invasive imaging studies have demonstrated heavily calcified plaque. Further evaluation by conventional angiography is requested by Dr. Giron. ATTENDING PHYSICIAN: Dr. Wells was present for the entire procedure. ASSISTING PHYSICIANS: Dr. Adrien Tolliver (fellow) Dr. Kevan Dumont (fellow), and Dr. Paulo Dumont (resident) CONTRAST: Optiray-320 ??mL TECHNIQUE: Following a discussion of the risks, benefits, and alternatives to the procedure, and after all questions about the procedure had been answered, the patient provided written informed consent. Specific risks discussed included stroke, permanent and transient neurological deficits, vascular injury, bleeding, and hematoma formation. Moderate sedation (intravenous fentanyl and midazolam) was administered under the direction of the attending physician with continuous monitoring by a trained nurse specialist independent of those performing the procedure. Total monitored sedation time was ??minutes. The patient was prepared and draped in the standard sterile fashion. The femoral head was localized by fluoroscopy. Buffered 1% lidocaine was infiltrated into the subcutaneous soft tissues overlying the planned site of vascular access, and time was allotted for good anesthetic effect. The right femoral artery was punctured using a 19-gauge modified Arce needle. A 5 Anguillan sheath was inserted over a J-wire and connected to a regulated pressurized infusion of heparinized saline. A 5 Anguillan pigtail catheter was advanced over the wire to the aortic arch and an aortic arch injection of contrast was performed to image the arch and brachiocephalic vessels in URUGUAYAN and [place] projections. The pigtail catheter was then removed over the wire. A 5 Anguillan HN4 and JB2 catheter were introduced over the wire, then used in conjunction with a Roadrunner wire to select the right common carotid and left common carotid arteries. In each selected vessel, contrast was injected for imaging in multiple projections. Images of the cervical and cranial vessels were obtained for interpretation. Immediately after the left carotid selective injections and a review of those images showing a probable embolus in at the left MCA bifurcation (see below), the patient was re-examined and found to have a moderate expressive aphasia but no motor or sensory deficits. The catheter was removed from the vessel. The patient was re-examined repeatly over the next 60 minutes on the table, and the expressive aphasia completely resolved. During that period of time, a new 5 Anguillan pigtail catheter was introduced into the aortic arch over a J-wire and used to re-inject the aortic arch for imaging of the intracranial arteries, so as to avoid further manipulation of either carotid artery. Once the patient and imaging were stable, the catheter was then removed. Hemostasis was achieved after sheath removal by manual compression. The patient was transported to the recovery area in stable neurological condition. FINDINGS: AORTIC ARCH: Heavily calcified atherosclerotic plaque is noted involving the innominate artery, the left common carotid artery origin, and the right subclavian artery origin, which makes it difficult to accurately quantify the degree of stenosis. However, there is mild slowing of flow in the right subclavian artery compared to the left subclavian artery, despite the closer proximity to the site of contrast injection with the pigtail catheter, probably as a result of high-grade innominate and/or proximal right subclavian stenosis secondary to the heavily calcified atherosclerotic plaque described above. The right vertebral artery is dominant without origin stenosis, and its cervical course appears non-stenotic. The left vertebral artery is small, is not visualized proximally (so is likely proximally occlused), but is reconstituted distally. CAROTID BIFURCATIONS: The right carotid bifurcation lies at C3-C4 level. There is approximately 50% stenosis at the right internal carotid artery origin. There is mild right common carotid artery and right external carotid artery stenosis. The left carotid bifurcation lies at C3-C4 level. Calcified atherosclerotic plaque is noted at the carotid bifurcation resulting in approximately 60% stenosis at the left external carotid artery origin. There is minor stenosis of the left common carotid artery, however there is no stenosis of the left internal carotid artery origin. Note is made of relatively slow wash-out of contrast in the left common and internal carotid arteries, which may be the result of partial obstruction of the origin of that vessel with the catheter in place (not seen on the aortic arch injection). CRANIAL VESSELS: A filling defect is noted in the left middle cerebral artery bifurcation, which is partially obstructive. There is antegrade opacification of the anterior division of the left middle cerebral artery, however the posterior division of left middle cerebral artery is opacified only through the pial collaterals that opcaify those branches in a retrograde manner. There is otherwise no intracranial internal carotid artery stenosis. The right middle cerebral and both anterior cerebral arteries appear normal. An anterior communicating artery is present and fills from the left. The posterior communicating arteries are present. There is no distal left vertebral or basilar artery stenosis. The repeat aortic arch injections performed over about 60 minutes to re-evaluate the left MCA demonstrate no change, i.e. persistence of the filling defect at the left MCA bifurcation. These findings and events were discussed with Dr. Giron by Dr. Wells at 4:20 p.m., and a decision was made to monitor the patient overnight and begin an intravenous heparin infusion starting 2-hours following the completion of procedure. ?? IMPRESSION: 1. Partially obstructive filling defect in the left middle cerebral artery bifurcation, with retrograde opacification of the posterior division of left middle cerebral artery through the pial collaterals. This defect was not seen on a recent CTA of the head and is most likely an embolus that occurred intra-procedurally. The patient had a transient period of expressive aphasia, but recovered completely on the table, despite the persistence of the defect on follow-up imaging over 60 minutes. Because she was neurologically normal and had good pial collateral flow demonstrated, and because the embolus likely originated from plaque at the LCCA origin, no attempt at re-catherization of that carotid artery and clot retrieval was made. A heparin infusion was planned. 2. Heavily calcified atherosclerotic plaque involving the innominate, left common carotid, and right subclavian arteries' origins, with resulting possible high-grade stenosis. 3. 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 These findings were discussed with Dr. Giron by Dr. Wells and with Dr. Cardenas by Dr. Dumont at 4.20 p.m. and 4:25 p.m. respectively on 04/02/2016. ?? Requested By: TASH LAST M.D. Dictated By: ?? KEVAN DUMONT M.D. ??on Apr 02 2016 ??7:13P This document has been electronically signed by: SISSY WELLS M.D. on Apr ??2015 12:50P Procedure Note Provider, MD Nimesh - 01/06/2017 Laura LOREDO M.D. FINAL REPORT The radiology attending physician has personally reviewed this study, and has reviewed and/or edited this written report and agrees with it. 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 She has asymmetric blood pressures in the right and left arms suggestive of right subclavian stenosis. Non-invasive imaging studies have demonstrated heavily calcified plaque. Further evaluation by conventional angiography is requested by Dr. Giron. ATTENDING PHYSICIAN: Dr. Wells was present for the entire procedure. ASSISTING PHYSICIANS: Dr. Adrien Tolliver (fellow) Dr. Kevan Dumont (fellow), and Dr. Paulo Dumont (resident) CONTRAST: Optiray-320 mL TECHNIQUE: Following a discussion of the risks, benefits, and alternatives to the procedure, and after all questions about the procedure had been answered, the patient provided written informed consent. Specific risks discussed included stroke, permanent and transient neurological deficits, vascular injury, bleeding, and hematoma formation. Moderate sedation (intravenous fentanyl and midazolam) was administered under the direction of the attending physician with continuous monitoring by a trained nurse specialist independent of those performing the procedure. Total monitored sedation time was minutes. The patient was prepared and draped in the standard sterile fashion. The femoral head was localized by fluoroscopy. Buffered 1% lidocaine was infiltrated into the subcutaneous soft tissues overlying the planned site of vascular access, and time was allotted for good anesthetic effect. The right femoral artery was punctured using a 19-gauge modified Arce needle. A 5 Anguillan sheath was inserted over a J-wire and connected to a regulated pressurized infusion of heparinized saline. A 5 Anguillan pigtail catheter was advanced over the wire to the aortic arch and an aortic arch injection of contrast was performed to image the arch and brachiocephalic vessels in URUGUAYAN and RASMUSSEN projections. The pigtail catheter was then removed over the wire. A 5 Anguillan HN4 and JB2 catheter were introduced over the wire, then used in conjunction with a Roadrunner wire to select the right common carotid and left common carotid arteries. In each selected vessel, contrast was injected for imaging in multiple projections. Images of the cervical and cranial vessels were obtained for interpretation. Immediately after the left carotid selective injections and a review of those images showing a probable embolus in at the left MCA bifurcation (see below), the patient was re-examined and found to have a moderate expressive aphasia but no motor or sensory deficits. The catheter was removed from the vessel. The patient was re-examined repeatly over the next 60 minutes on the table, and the expressive aphasia completely resolved. During that period of time, a new 5 Anguillan pigtail catheter was introduced into the aortic arch over a J-wire and used to re-inject the aortic arch for imaging of the intracranial arteries, so as to avoid further manipulation of either carotid artery. Once the patient and imaging were stable, the catheter was then removed. Hemostasis was achieved after sheath removal by manual compression. The patient was transported to the recovery area in stable neurological condition. FINDINGS: AORTIC ARCH: Heavily calcified atherosclerotic plaque is noted involving the innominate artery, the left common carotid artery origin, and the right subclavian artery origin, which makes it difficult to accurately quantify the degree of stenosis. However, there is mild slowing of flow in the right subclavian artery compared to the left subclavian artery, despite the closer proximity to the site of contrast injection with the pigtail catheter, probably as a result of high-grade innominate and/or proximal right subclavian stenosis secondary to the heavily calcified atherosclerotic plaque described above. The right vertebral artery is dominant without origin stenosis, and its cervical course appears non-stenotic. The left vertebral artery is small, is not visualized proximally (so is likely proximally occlused), but is reconstituted distally. CAROTID BIFURCATIONS: The right carotid bifurcation lies at C3-C4 level. There is approximately 50% stenosis at the right internal carotid artery origin. There is mild right common carotid artery and right external carotid artery stenosis. The left carotid bifurcation lies at C3-C4 level. Calcified atherosclerotic plaque is noted at the carotid bifurcation resulting in approximately 60% stenosis at the left external carotid artery origin. There is minor stenosis of the left common carotid artery, however there is no stenosis of the left internal carotid artery origin. Note is made of relatively slow wash-out of contrast in the left common and internal carotid arteries, which may be the result of partial obstruction of the origin of that vessel with the catheter in place (not seen on the aortic arch injection). CRANIAL VESSELS: A filling defect is noted in the left middle cerebral artery bifurcation, which is partially obstructive. There is antegrade opacification of the anterior division of the left middle cerebral artery, however the posterior division of left middle cerebral artery is opacified only through the pial collaterals that opcaify those branches in a retrograde manner. There is otherwise no intracranial internal carotid artery stenosis. The right middle cerebral and both anterior cerebral arteries appear normal. An anterior communicating artery is present and fills from the left. The posterior communicating arteries are present. There is no distal left vertebral or basilar artery stenosis. The repeat aortic arch injections performed over about 60 minutes to re-evaluate the left MCA demonstrate no change, i.e. persistence of the filling defect at the left MCA bifurcation. These findings and events were discussed with Dr. Giron by Dr. Wells at 4:20 p.m., and a decision was made to monitor the patient overnight and begin an intravenous heparin infusion starting 2-hours following the completion of procedure. IMPRESSION: 1. Partially obstructive filling defect in the left middle cerebral artery bifurcation, with retrograde opacification of the posterior division of left middle cerebral artery through the pial collaterals. This defect was not seen on a recent CTA of the head and is most likely an embolus that occurred intra-procedurally. The patient had a transient period of expressive aphasia, but recovered completely on the table, despite the persistence of the defect on follow-up imaging over 60 minutes. Because she was neurologically normal and had good pial collateral flow demonstrated, and because the embolus likely originated from plaque at the LCCA origin, no attempt at re-catherization of that carotid artery and clot retrieval was made. A heparin infusion was planned. 2. Heavily calcified atherosclerotic plaque involving the innominate, left common carotid, and right subclavian arteries' origins, with resulting possible high-grade stenosis. 3. 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 These findings were discussed with Dr. Giron by Dr. Wells and with Dr. Cardenas by Dr. Dumont at 4.20 p.m. and 4:25 p.m. respectively on 04/02/2016. Requested By: TASH LAST M.D. Dictated By: KEVAN DUMONT M.D. on Apr 02 2016 7:13P This document has been electronically signed by: SISSY WELLS M.D. on Apr 07 2016 12:50P us Historical Provider MD GEORGE IR PROCEDURES Final R esult * Serum lipid panel (04/02/2016 3:44 AM CDT) [facility] Signature Cholesterol 130 30 - 200 mg/dl CDR HISTORICAL RESULTS Comment: Interpretive Data Desirable: ?<200 mg/dL Borderline high: ??200-239 mg/dL High: ? > or = 240 mg/dL Literature Reference: National Cholesterol Education Program (NCEP) Expert Panel on Detection, Evaluation, and Treatment of High Blood Cholesterol in Adults (Adult Treatment Panel III). ??Circulation 2004; 110:227. Current interpretive data was last revised on 2015. HDL 57 >=40 mg/dl CDR HISTO RICAL RESULTS Comment: Interpretive Data Less than 40 mg/dL - low; A major risk factor for heart disease. Greater than or equal to 60 mg/dL - High; ??considered protective of heart disease. Literature Reference: See Cholesterol Current interpretive data was last revised on 2015. LDL 50 10 - 129 mg/dl CDR HISTORICAL RESULTS Comment: Interpretive Data Optimal: ? < 100 mg/dL Near Optimal: ?100 - 129 mg/dL Borderline High: ?? 130 - 159 mg/dL High: ?160 - 189 mg/dL Very high: ? > or = 190 mg/dL Literature Reference: See Cholesterol Current interpretive data was last revised on 2015. Non-HDL cholesterol, calculated 73 mg/dl CDR HISTORICAL RESULTS Comment: Interpretive Data When triglycerides are >200 mg/dL, non-HDL C is a secondary target of therapy, with a goal 30 mg/dL higher than the identified LDL-C goal. Reference: ??See Cholesterol Reference. Current interpretive data was last revised 2015. Triglycerides 116 0 - 150 mg/dl CDR HISTORICAL RESULTS Comment: Interpretive Data Desirable: ? < 150 mg/dL Borderline High: ? 150 - 199 mg/dL High: ?200 - 499 mg/dL Very High: ? > or = 499 mg/dL Literature Reference: See Cholesterol Current interpretive data was last revised on 2015. Serum 04/02/2016 3:44 AM CDT us Tash Last MD LAB BLOOD ORDERABLES Final Re sult CDR HISTORICAL RESULTS * Plasma basic metabolic panel (04/02/2016 3:44 AM CDT) Sodium 140 135 - 145 mmol/L CDR HISTORICAL RESULTS K, pl 4.2 3.3 - 4.9 mmol/L CDR HISTORICAL RESULTS Chloride 105 97 - 110 mmol/L CDR HISTORICAL RESULTS CO2 23 22 - 32 mmol/L CDR HISTORICAL RESULTS A. gap 12 2 - 15 mmol/L CDR HISTORICAL RESULTS Glucose 115 70 - 199 mg/dl CDR HISTORICAL RESULTS BUN 14 8 - 25 mg/dl CDR HISTORICAL RESULTS Creatinine 0.70 0.60 - 1.10 mg/dl CDR HISTORICAL RESULTS Calcium 9.8 8.5 - 10.3 mg/dl CDR HISTORICAL RESULTS Plasma 04/02/2016 3:44 AM CDT Tash Last MD LAB BLOOD ORDERABLES Final Re sult Performing Organization Address City/State/[facility] Co de Phone Number CDR HISTORICAL RESULTS * Blood cell count (CBC) (04/02/2016 3:44 AM CDT) WBC 6.3 3.8 - 9.9 K/cumm CDR HISTORICAL RESULTS RBC 4.51 3.90 - 5.20 M/cumm CDR HISTORICAL RESULTS Hgb 14.0 11.9 - 15.5 g/dl CDR HISTORICAL RESULTS Hct 41.5 35.6 - 45.5 % CDR HISTORICAL RESULTS MCV 92.0 81.3 - 96.4 fl CDR HISTORICAL RESULTS MCH 31.0 27.1 - 33.3 pg CDR HISTORICAL RESULTS MCHC 33.7 32.3 - 35.7 g/dl CDR HISTORICAL RESULTS Rdw 13.3 11.1 - 14.9 % CDR HISTORICAL RESULTS RDW 45.1 35.7 - 48.1 fl CDR HISTORICAL RESULTS Platelets 223 150 - 400 K/cumm CDR HISTORICAL RESULTS MPV 9.1 9.1 - 12.3 fl CDR HISTORICAL RESULTS NRBC 0.0 0.0 - 0.2 % CDR HIST ORICAL RESULTS NRBC, abs 0.00 0.00 - 0.01 K/cumm CDR HISTORICAL RESULTS Blood specimen (specimen) 04/02/2016 3:44 AM CDT Tash Last MD LAB BLOOD ORDERABLES Final Re sult CDR HISTORICAL RESULTS * Blood cell morphologic exam (04/02/2016 3:44 AM CDT) Neutrophils 51.7 % CDR HIST ORICAL RESULTS Immature granulocytes 0.5 % CDR HISTORICAL RESULTS Lymphocytes 38.2 % CDR HIST ORICAL RESULTS Monos 8.2 % CDR HISTOR ICAL RESULTS Eosinophils 1.1 % CDR HIST ORICAL RESULTS Basophils 0.3 % CDR HISTOR ICAL RESULTS Neutrophils, abs 3.3 1.7 - 6.5 K/cumm CDR HISTORICAL RESULTS Immature granulocyte, abs 0.0 0.0 - 0.1 K/cumm CDR HISTORICAL RESULTS Lymphocytes, abs 2.4 0.8 - 3.3 K/cumm CDR HISTORICAL RESULTS Monocytes, absolute 0.5 0.2 - 0.8 K/cumm CDR HISTORICAL RESULTS Eosinophils, abs 0.1 0.0 - 0.5 K/cumm CDR HISTORICAL RESULTS Basophils, abs 0.0 0.0 - 0.1 K/cumm CDR HISTORICAL RESULTS Blood specimen (specimen) 04/02/2016 3:44 AM CDT Tash Last MD LAB BLOOD ORDERABLES Final Re sult Performing Organization Address City/[facility] Co de Phone Number CDR HISTORICAL RESULTS * Blood hemoglobin A1C (04/02/2016 3:44 AM CDT) Hgb A1C 5.9 4.0 - 6.0 % CDR HISTORICAL RESULTS Estimated average glucose 123 mg/dl CDR HISTORIC AL RESULTS Comment: The ADA recommends reporting an estimated Average Glucose (eAG) with all Hemoglobin A1c results using the equation derived from a study of 507 normal and diabetic adults. ??Minority populations were underrepresented and children were not included. ??(Diabetes Care 31:0556-7894, 2008). ??The eAG is not equivalent to a fasting glucose. Blood specimen (specimen) 04/02/2016 3:44 AM CDT Sugar Cardenas DNP LAB BLOOD ORDERABLES Final Re sult Performing Organization Address City/[facility]/ZIP Co de Phone Number CDR HISTORICAL RESULTS * MRI Brain WWO Contrast (04/01/2016 9:11 AM CDT) Anatomical Region Laterality Modality Head and Neck N/A Magnetic Resonan ce 04/01/2016 9:11 AM CDT Narrative 04/01/2016 3:15 PM CDT STEPHEN JAMES M.D. STACIE CHRISTIAN M.D. FINAL REPORT The radiology attending physician has personally reviewed this study, and has reviewed and/or edited this written report and agrees with it. ACC# ??Date Time ??Exam [id number] Apr 01, 2016 09:11:00 [id number] MRI Brain wo&with contrast EXAMINATION: ?? Magnetic resonance imaging (MRI) of the brain and brainstem without and with contrast HISTORY: Concern for stroke TECHNIQUE: Multiplanar multi-weighted MRI of the brain and brainstem was performed without and with intravenous contrast using the general brain protocol. Contrast information: 16 mL Dotarem COMPARISON: None available. FINDINGS: The scalp and calvarium are normal. [...] no evidence of acute or chronic hemorrhage. There are scattered punctate T2 such FLAIR hyperintensities involving the bilateral centrum semiovale ankle radiata, as well as within the amadeo. These are nonspecific, but likely sequela of chronic small vessel ischemic disease. The ventricles are normal in size and position without evidence of hydrocephalus. There are no areas of abnormal contrast enhancement. The paranasal sinuses are normal. The visualized portions of the mastoids are unremarkable. The orbits appear normal. Normal flow voids are demonstrated in the carotid arteries and basilar artery. IMPRESSION: ?? No MR evidence of stroke. Requested By: MIRELLA FIGUEROA M.D. Dictated By: ?? STACIE CHRISTIAN M.D. ??on Apr 01 2016 10:13A This document has been electronically signed by: STEPHEN JAMES M.D. on Apr 01 2016 ??3:15P [id number] Procedure Note Provider, MD Nimesh - 01/06/2017 STEPHEN JAMES M.D. STACIE CHRISTIAN M.D. FINAL REPORT The radiology attending physician has personally reviewed this study, and has reviewed and/or edited this written report and agrees with it. ACC# Date Time Exam [id number] Apr 01, 2016 09:11:00 [id number] MRI Brain wo&with contrast EXAMINATION: Magnetic resonance imaging (MRI) of the brain and brainstem without and with contrast HISTORY: Concern for stroke TECHNIQUE: Multiplanar multi-weighted MRI of the brain and brainstem was performed without and with intravenous contrast using the general brain protocol. Contrast information: 16 mL Dotarem COMPARISON: None available. FINDINGS: The scalp and calvarium are normal. [...] no evidence of acute or chronic hemorrhage. There are scattered punctate T2 such FLAIR hyperintensities involving the bilateral centrum semiovale ankle radiata, as well as within the amadeo. These are nonspecific, but likely sequela of chronic small vessel ischemic disease. The ventricles are normal in size and position without evidence of hydrocephalus. There are no areas of abnormal contrast enhancement. The paranasal sinuses are normal. The visualized portions of the mastoids are unremarkable. The orbits appear normal. Normal flow voids are demonstrated in the carotid arteries and basilar artery. IMPRESSION: No MR evidence of stroke. Requested By: MIRELLA FIGUEROA M.D. Dictated By: STACIE CHRISTIAN M.D. on Apr 01 2016 10:13A This document has been electronically signed by: STEPHEN JAMES M.D. on Apr 01 2016 3:15P [id number] Historical Provider IMJacqui MRI PROCEDURES Final Result * (ABNORMAL) Plasma partial thromboplastin time (PTT) (04/01/2016 1:15 AM CDT) APTT 43.0(H) 25.0 - 37.0 seconds CDR HISTORICAL RESULTS Comment: Interpretive Data Therapeutic heparin range:60.0 - 94.0 sec based on correlation with therapeutic heparin activity range of 0.3 -0.7 Units/mL. Current interpretive data was last revised on 2011. Plasma 04/01/2016 1:15 AM CDT us Cem Salmon MD PhD LAB BLOOD ORDERABLES Fin al Result CDR HISTORICAL RESULTS * Plasma prothrombin time (PT) (04/01/2016 1:15 AM CDT) Prothrombin time (PT) 11.4 9.2 - 13.0 seconds CDR HISTORICAL RESULTS INR 1.05 0.90 - 1.20 CDR HIST ORICAL RESULTS Comment: Interpretive Data Inpatient therapeutic ranges* Atrial fibrillation ?2.0-3.0 INR Venous thrombo-embolism ?2.0-3.0 INR Bioprosthetic heart valve ?* Mechanical heart valve, bileaflet or tilting disk,aortic position ? 2.0-3.0 INR All other,or bileaflet or tilting disk, in mitral position ? 2.5-3.5 INR *See the pharmacy resource directory (PHRED) for an updated copy of the Tool Book at [email or web address] Current Interpretive Data was last revised 2011. Plasma 04/01/2016 1:15 AM CDT us Cem Salmon MD PhD LAB BLOOD ORDERABLES Fin al Result CDR HISTORICAL RESULTS * XR Chest 1 View (03/31/2016 10:35 PM CDT) Anatomical Region Laterality Modality Body, Chest N/A Radiographic Stefanie ging 03/31/2016 10:3 5 PM CDT Narrative 04/01/2016 10:13 AM CDT ADAMARIS HOLM M.D. MINDI EWING M.D. FINAL REPORT The radiology attending physician has personally reviewed this study, and has reviewed and/or edited this written report and agrees with it. ACC# ??Date Time ??Exam [id number] Mar 31, 2016 22:35:00 [id number] Chest 1 view Frontal EXAMINATION: ?? CHEST 1 VIEW IMPRESSION: ?? Frontal portable ??view of the chest is obtained without prior available for comparison Cardiomediastinal silhouette within normal limits. Lungs clear without focal pneumonic consolidation or pulmonary edema. No pneumothorax.. No pleural effusion. Requested By: CEM SALMON M.D. Dictated By: ?? MINDI EWING M.D. ??on Apr 01 2016 ??9:01A This document has been electronically signed by: ADAMARIS HOLM M.D. on Apr 01 2016 10:12A [id number] Procedure Note Provider, MD Nimesh - 01/06/2017 ADAMARIS HOLM M.D. MINDI EWING M.D. FINAL REPORT The radiology attending physician has personally reviewed this study, and has reviewed and/or edited this written report and agrees with it. ACC# Date Time Exam [id number] Mar 31, 2016 22:35:00 [id number] Chest 1 view Frontal EXAMINATION: CHEST 1 VIEW IMPRESSION: Frontal portable view of the chest is obtained without prior available for comparison Cardiomediastinal silhouette within normal limits. Lungs clear without focal pneumonic consolidation or pulmonary edema. No pneumothorax.. No pleural effusion. Requested By: CEM SALMON M.D. Dictated By: MINDI EWING M.D. on Apr 01 2016 9:01A This document has been electronically signed by: ADAMARIS HOLM M.D. on Apr 01 2016 10:12A [id number] us Historical Provider MD GEORGE XR PROCEDURES Final R esult * Plasma basic metabolic panel (03/31/2016 10:00 PM CDT) Sodium 142 135 - 145 mmol/L CDR HISTORICAL RESULTS K, pl 4.1 3.3 - 4.9 mmol/L CDR HISTORICAL RESULTS Chloride 104 97 - 110 mmol/L CDR HISTORICAL RESULTS CO2 24 22 - 32 mmol/L CDR HISTORICAL RESULTS A. gap 14 2 - 15 mmol/L CDR HISTORICAL RESULTS Glucose 92 70 - 199 mg/dl CDR HISTORICAL RESULTS BUN 16 8 - 25 mg/dl CDR HISTORICAL RESULTS Creatinine 0.78 0.60 - 1.10 mg/dl CDR HISTORICAL RESULTS Calcium 10.1 8.5 - 10.3 mg/dl CDR HISTORICAL RESULTS Plasma 03/31/2016 10:0 0 PM CDT Cem Salmon MD PhD LAB BLOOD ORDERABLES Fin al Result CDR HISTORICAL RESULTS * Plasma phosphorus (03/31/2016 10:00 PM CDT) Phosphorus, pl 3.8 2.3 - 4.5 mg/dl CDR HISTORICAL RESULTS Plasma 03/31/2016 10:0 0 PM CDT Cem Salmon MD PhD LAB BLOOD ORDERABLES Fin al Result Performing Organization Address [facility] de Phone Number CDR HISTORICAL RESULTS * Serum magnesium (03/31/2016 10:00 PM CDT) Magnesium 2.2 1.4 - 2.5 mg/dl CDR HISTORICAL RESULTS Serum 03/31/2016 10:0 0 PM CDT Cem Salmon MD PhD LAB BLOOD ORDERABLES Fin al Result Performing Organization Address [facility] de Phone Number CDR HISTORICAL RESULTS * Blood cell count (CBC) (03/31/2016 10:00 PM CDT) WBC 6.4 3.8 - 9.9 K/cumm CDR HISTORICAL RESULTS RBC 4.48 3.90 - 5.20 M/cumm CDR HISTORICAL RESULTS Hgb 13.8 11.9 - 15.5 g/dl CDR HISTORICAL RESULTS Hct 41.3 35.6 - 45.5 % CDR HISTORICAL RESULTS MCV 92.2 81.3 - 96.4 fl CDR HISTORICAL RESULTS MCH 30.8 27.1 - 33.3 pg CDR HISTORICAL RESULTS MCHC 33.4 32.3 - 35.7 g/dl CDR HISTORICAL RESULTS Rdw 13.3 11.1 - 14.9 % CDR HISTORICAL RESULTS RDW 45.7 35.7 - 48.1 fl CDR HISTORICAL RESULTS Platelets 222 150 - 400 K/cumm CDR HISTORICAL RESULTS MPV 9.2 9.1 - 12.3 fl CDR HISTORICAL RESULTS NRBC 0.0 0.0 - 0.2 % CDR HIST ORICAL RESULTS NRBC, abs 0.00 0.00 - 0.01 K/cumm CDR HISTORICAL RESULTS Blood specimen (specimen) 03/31/2016 10:00 PM CDT Cem Salmon MD PhD LAB BLOOD ORDERABLES Fin al Result Performing Organization Address City/[facility] Co de Phone Number CDR HISTORICAL RESULTS * Blood cell morphologic exam (03/31/2016 10:00 PM CDT) Neutrophils 47.9 % CDR HIST ORICAL RESULTS Immature granulocytes 0.2 % CDR HISTORICAL RESULTS Lymphocytes 39.3 % CDR HIST ORICAL RESULTS Monos 11.0 % CDR HISTOR ICAL RESULTS Eosinophils 1.1 % CDR HIST ORICAL RESULTS Basophils 0.5 % CDR HISTOR ICAL RESULTS Neutrophils, abs 3.1 1.7 - 6.5 K/cumm CDR HISTORICAL RESULTS Immature granulocyte, abs 0.0 0.0 - 0.1 K/cumm CDR HISTORICAL RESULTS Lymphocytes, abs 2.5 0.8 - 3.3 K/cumm CDR HISTORICAL RESULTS Monocytes, absolute 0.7 0.2 - 0.8 K/cumm CDR HISTORICAL RESULTS Eosinophils, abs 0.1 0.0 - 0.5 K/cumm CDR HISTORICAL RESULTS Basophils, abs 0.0 0.0 - 0.1 K/cumm CDR HISTORICAL RESULTS Blood specimen (specimen) 03/31/2016 10:00 PM CDT Cem Salmon MD PhD LAB BLOOD ORDERABLES Fin al Result CDR HISTORICAL RESULTS * Urinalysis (03/31/2016 6:08 PM CDT) Color, ur Yellow Yellow CDR HISTOR ICAL RESULTS Clarity, ur Clear Clear CDR HIST ORICAL RESULTS Specific gravity, ur 1.013 1.003 - 1.030 CDR HISTORICAL RESULTS pH, ur 7.0 5.0 - 8.0 CDR HISTOR ICAL RESULTS Protein, ur Negative Trace CDR HIST ORICAL RESULTS Glucose, ur Negative Negative CDR HIST ORICAL RESULTS Ketones, ur Negative Negative CDR HIST ORICAL RESULTS Bilirubin, ur Negative Negative CDR HI STORICAL RESULTS U Blood Negative Negative CDR HISTOR ICAL RESULTS Urobilinogen, quant, ur <2.0 <2.0 mg/dl CDR HISTORICAL RESULTS Nitrites, ur Negative Negative CDR HIS TORICAL RESULTS Leukocyte esterase, ur Negative Negative CDR HISTORICAL RESULTS Urine 03/31/2016 6:08 PM CDT us Forest Sharma MD LAB BLOOD ORDERABLES Final Res ult CDR HISTORICAL RESULTS * Serum troponin I (03/31/2016 3:36 PM CDT) Troponin I <0.03 0.00 - 0.03 ng/ml CDR HISTORICAL RESULTS Comment: Interpretive Data Serial determinations are recommended for the diagnosis of myocardial infarction (Third [place] Definition of Myocardial Infarction. ??J Am Karl Cardiol 2012;60:1581-98). Current interpretive data was last revised on 13. Serum 03/31/2016 3:36 PM CDT us Holger Hamilton MD LAB BLOOD ORDERABLES Final Re sult Performing Organization Address [facility]/ZIP Co de Phone Number CDR HISTORICAL RESULTS * CT Head WO Contrast (03/31/2016 12:01 PM CDT) Anatomical Region Laterality Modality Head and Neck N/A Computed Tomogra phy 03/31/2016 12:0 1 PM CDT Narrative 03/31/2016 2:18 PM CDT STEPHEN JAMES M.D. LENORE LEMON M.D. FINAL REPORT The radiology attending physician has personally reviewed this study, and has reviewed and/or edited this written report and agrees with it. ACC# ??Date Time ??Exam [id number] Mar 31, 2016 12:01:[id number] Head or Brain w/o cont EXAMINATION: ?? Noncontrast head CT HISTORY: Decreased sensation. TECHNIQUE: Noncontrast CT of the brain was performed with images acquired from skull base to vertex. COMPARISON: Prior CT study dated 03/31/2016 FINDINGS: Topogram demonstrates no lytic lesions or fractures. There is no acute intracranial hemorrhage. Ventricles are of normal size and morphology. No mass effect or midline shift is present. The nazario-white matter differentiation is normal. The visualized portions of the orbits are normal. The visualized portions of the mastoids are normal. The visualized portions of the paranasal sinuses are normal. No fractures are identified. Contrast is noted in the venous system, related to prior CT angiography study. IMPRESSION: ?? No acute intracranial abnormality. Requested By: FOREST SHARMA M.D. Dictated By: ?? LENORE LEMON M.D. ??on Mar 31 2016 ??1:16P This document has been electronically signed by: STEPHEN JAMES M.D. on Mar 31 2016 ??2:18P [id number] Procedure Note Provider, MD Nimesh - 01/06/2017 STEPHEN JAMES M.D. LENORE LEMON M.D. FINAL REPORT The radiology attending physician has personally reviewed this study, and has reviewed and/or edited this written report and agrees with it. ACC# Date Time Exam [id number] Mar 31, 2016 12:01:[id number] Head or Brain w/o cont EXAMINATION: Noncontrast head CT HISTORY: Decreased sensation. TECHNIQUE: Noncontrast CT of the brain was performed with images acquired from skull base to vertex. COMPARISON: Prior CT study dated 03/31/2016 FINDINGS: Topogram demonstrates no lytic lesions or fractures. There is no acute intracranial hemorrhage. Ventricles are of normal size and morphology. No mass effect or midline shift is present. The nazario-white matter differentiation is normal. The visualized portions of the orbits are normal. The visualized portions of the mastoids are normal. The visualized portions of the paranasal sinuses are normal. No fractures are identified. Contrast is noted in the venous system, related to prior CT angiography study. IMPRESSION: No acute intracranial abnormality. Requested By: FOREST SHARMA M.D. Dictated By: LENORE LEMON M.D. on Mar 31 2016 1:16P This document has been electronically signed by: STEPHEN JAMES M.D. on Mar 31 2016 2:18P [id number] Historical Provider MD GEORGE CT PROCEDURES Final R esult * Blood prothrombin time (PT) (03/31/2016 12:00 PM CDT) PT 11.8 10.6 - 13.5 seconds CDR HISTORICAL RESULTS INR 1.0 0.8 - 1.2 CDR HISTOR ICAL RESULTS Blood specimen (specimen) 03/31/2016 12:00 PM CDT Historical Provider LAB BLOOD ORDERABLES Tiffany pacheco Result Performing Organization Address [facility] de Phone Number CDR HISTORICAL RESULTS * Blood glucose, POC (03/31/2016 11:57 AM CDT) Glucose, POC, bld 156 70 - 199 mg/dl CDR HISTORICAL RESULTS Blood specimen (specimen) 03/31/2016 11:57 AM CDT Historical Provider LAB BLOOD ORDERABLES Tiffany l Result Performing Organization Address [facility] de Phone Number CDR HISTORICAL RESULTS * (ABNORMAL) Plasma partial thromboplastin time (PTT) (03/31/2016 11:57 AM CDT) APTT 37.5(H) 25.0 - 37.0 seconds CDR HISTORICAL RESULTS Comment: Interpretive Data Therapeutic heparin range:60.0 - 94.0 sec based on correlation with therapeutic heparin activity range of 0.3 -0.7 Units/mL. Current interpretive data was last revised on 2011. Plasma 03/31/2016 11:5 7 AM CDT Forest Sharma MD LAB BLOOD ORDERABLES Final Res ult Performing Organization Address City/[facility] Co de Phone Number CDR HISTORICAL RESULTS * Plasma basic metabolic panel (03/31/2016 11:57 AM CDT) Sodium 137 135 - 145 mmol/L CDR HISTORICAL RESULTS K, pl 4.0 3.3 - 4.9 mmol/L CDR HISTORICAL RESULTS Chloride 101 97 - 110 mmol/L CDR HISTORICAL RESULTS CO2 22 22 - 32 mmol/L CDR HISTORICAL RESULTS A. gap 14 2 - 15 mmol/L CDR HISTORICAL RESULTS Glucose 166 70 - 199 mg/dl CDR HISTORICAL RESULTS BUN 16 8 - 25 mg/dl CDR HISTORICAL RESULTS Creatinine 0.77 0.60 - 1.10 mg/dl CDR HISTORICAL RESULTS Calcium 9.8 8.5 - 10.3 mg/dl CDR HISTORICAL RESULTS Plasma 03/31/2016 11:5 7 AM CDT Forest Sharma MD LAB BLOOD ORDERABLES Final Res ult Performing Organization Address City/[facility] Co de Phone Number CDR HISTORICAL RESULTS * Serum troponin I (03/31/2016 11:57 AM CDT) Troponin I <0.03 0.00 - 0.03 ng/ml CDR HISTORICAL RESULTS Comment: Interpretive Data Serial determinations are recommended for the diagnosis of myocardial infarction (Third [place] Definition of Myocardial Infarction. ??J Am Karl Cardiol 2012;60:1581-98). Current interpretive data was last revised on 13. Serum 03/31/2016 11:5 7 AM CDT Forest Sharma MD LAB BLOOD ORDERABLES Final Res ult CDR HISTORICAL RESULTS * Blood cell count [CBC] express (03/31/2016 11:57 AM CDT) WBC 6.4 3.8 - 9.9 K/cumm CDR HISTORICAL RESULTS RBC 4.56 3.90 - 5.20 M/cumm CDR HISTORICAL RESULTS Hgb 14.0 11.9 - 15.5 g/dl CDR HISTORICAL RESULTS Hct 41.9 35.6 - 45.5 % CDR HISTORICAL RESULTS MCV 91.9 81.3 - 96.4 fl CDR HISTORICAL RESULTS MCH 30.7 27.1 - 33.3 pg CDR HISTORICAL RESULTS MCHC 33.4 32.3 - 35.7 g/dl CDR HISTORICAL RESULTS Rdw 13.3 11.1 - 14.9 % CDR HISTORICAL RESULTS RDW 45.1 35.7 - 48.1 fl CDR HISTORICAL RESULTS NRBC 0.0 0.0 - 0.2 % CDR HIST ORICAL RESULTS NRBC, abs 0.00 0.00 - 0.01 K/cumm CDR HISTORICAL RESULTS Platelets 262 150 - 400 K/cumm CDR HISTORICAL RESULTS MPV 9.6 9.1 - 12.3 fl CDR HISTORICAL RESULTS Blood specimen (specimen) 03/31/2016 11:57 AM CDT Forest Sharma MD LAB BLOOD ORDERABLES Final Res ult Performing Organization Address City/[facility] Co de Phone Number CDR HISTORICAL RESULTS * Blood B-type natriuretic peptide (BNP) (03/31/2016 11:57 AM CDT) BNP 70 0 - 100 pg/ml CDR HISTORICAL RESULTS Blood specimen (specimen) 03/31/2016 11:57 AM CDT Forest Sharma MD LAB BLOOD ORDERABLES Final Res ult Performing Organization Address City/[facility] Co de Phone Number CDR HISTORICAL RESULTS documented in this encounter Visit Diagnoses Diagnosis 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) Chronic obstructive pulmonary disease (HCC) Aphasia 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
--- OUTSIDE RECORDS SUMMARY | 2024-09-08 08:25 | XMS_ITS | Encounter Summary ---
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 Social History Tobacco Use Types Packs/Day Years Used Date Smoking Tobacco: Former Alcohol Use Standard Drinks/Week Comments Yes 0 (1 standard drink = 0.6 oz pur e alcohol) Comments Unknown Sex and Gender Information Value Date Recorded Sex Assigned at Not on file 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 ARABELLA FLOWERS MD FINAL REPORT The radiology attending physician has personally reviewed this study, and has reviewed and/or edited this written report and agrees with it. ACC# ??Date Time ??Exam [id number] May 22, 2016 11:38:00 [id number] MRA Head wwo cont EXAMINATION: ?? Magnetic resonance angiography (MRA) of the bqtefc-ez-Ehajts without and with contrast HISTORY: 62-year-old female with history of bilateral carotid artery stenosis. TECHNIQUE: ??Magnetic resonance angiography of the jomqkf-uc-Bagmze was performed using separate data set acquisitions including a non-contrast traf-kf-hhffly technique and a post-contrast technique to produce axial thin-slice source images. These images were then used to generate maximum intensity projection (MIP) images. Contrast information: 17 mL Dotarem COMPARISON: MRI brain 04/03/2016 FINDINGS: Normal flow voids are demonstrated in the carotid arteries and basilar artery. The internal carotid arteries are of normal caliber. There are no areas of atherosclerotic narrowing. The ntbogr-ow-Hritvf is complete. Anterior and right middle cerebral arteries are normal. There is narrowing of the anterior division of the left M2 segment middle cerebral artery. The left M1 segment of the middle cerebral artery is normal. Left vertebral artery is dominant. There is moderate irregularity of the basilar artery. The right posterior cerebral artery is supplied by the right posterior communicating artery. The left posterior cerebral artery is normal. There is no aneurysm or vascular malformation identified. Although MRA is a screening examination, catheter angiography remains the definitive study for small aneurysms, vasculitis, and other vascular abnormalities. IMPRESSION: ?? 1. There is moderate irregularity of the basilar artery with diminutive caliber, likely due to atherosclerotic disease. 2. There is narrowing of the anterior division of the left M2 segment of the middle cerebral artery. Requested By: Dictated By: ?? ARABELLA FLOWERS MD ??on May 22 2016 ??2:48P This document has been electronically signed by: STEPHEN JAMES M.D. on May 22 2016 ??3:14P [id number] Procedure Note Provider, MD Nimesh - 01/06/2017 STEPHEN JAMES M.D. ARABELLA FLOWERS MD FINAL REPORT The radiology attending physician has personally reviewed this study, and has reviewed and/or edited this written report and agrees with it. [facility]# Date Time Exam [id number] May 22, 2016 11:38:00 [id number] MRA Head wwo cont EXAMINATION: Magnetic resonance angiography (MRA) of the sgmbhq-rc-Qqegry without and with contrast HISTORY: 62-year-old female with history of bilateral carotid artery stenosis. TECHNIQUE: Magnetic resonance angiography of the cvcmun-ni-Ikoxzd was performed using separate data set acquisitions including a non-contrast niwx-pt-jrpqgw technique and a post-contrast technique to produce axial thin-slice source images. These images were then used to generate maximum intensity projection (MIP) images. Contrast information: 17 mL Dotarem COMPARISON: MRI brain 04/03/2016 FINDINGS: Normal flow voids are demonstrated in the carotid arteries and basilar artery. The internal carotid arteries are of normal caliber. There are no areas of atherosclerotic narrowing. The qcpfqv-qe-Afzebr is complete. Anterior and right middle cerebral arteries are normal. There is narrowing of the anterior division of the left M2 segment middle cerebral artery. The left M1 segment of the middle cerebral artery is normal. Left vertebral artery is dominant. There is moderate irregularity of the basilar artery. The right posterior cerebral artery is supplied by the right posterior communicating artery. The left posterior cerebral artery is normal. There is no aneurysm or vascular malformation identified. Although MRA is a screening examination, catheter angiography remains the definitive study for small aneurysms, vasculitis, and other vascular abnormalities. IMPRESSION: 1. There is moderate irregularity of the basilar artery with diminutive caliber, likely due to atherosclerotic disease. 2. There is narrowing of the anterior division of the left M2 segment of the middle cerebral artery. Requested By: Dictated By: ARABELLA FLOWERS MD on May 22 2016 2:48P This document has been electronically signed by: STEPHEN JAMES M.D. 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
--- OUTSIDE RECORDS SUMMARY | 2024-09-08 08:25 | XMS_ITS | Encounter Summary ---
Author Organization [facility] Healthcare Address [address] [place] [address] Care Team Providers Care Water Trainer Name Role Phone Abbe Nails MD Primary Care Provider [phone] Encounter Details Date Type Department Care Team (Latest Contact Info) Description 02/16/2017 11:01 AM CDT - 02/16/2017 11:59 PM [facility] Hospital Encounter [facility] [phone] Nanci Trujillo MD [address] [facility] [id number] [place] [address] Discharge Disposition: Discharge to home or self care Social History Tobacco Use Types Packs/Day Years Used Date Smoking Tobacco: Former Alcohol Use Standard Drinks/Week Comments Yes 0 (1 standard drink = 0.6 oz pur e alcohol) Comments Unknown Sex and Gender Information Value Date Recorded Sex Assigned at Not on file 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 Gender Identity Not on file Sexual Orientation [...] oral route every day 0 0 02/26/2015 montelukast (SINGULAIR) 10 mg tablet take 1 tablet by oral route every day in the evening 0 0 11/03/2016 atenolol (TENORMIN) 50 mg tablet take 1 tablet by oral route every day 0 0 07/04/2016 9 biotin-keratin (BIOTIN PLUS KERATIN) 10,000-100 mcg-mg tablet 0 0 11/03/2016 0 clopidogrel (PLAVIX) 75 mg tablet take 1 tablet by oral route every day 0 0 02/26/2015 0 diphenhydrAMINE- acetaminophen (TYLENOL PM EXTRA STRENGTH) 25-500 mg tablet take 2 tablet by oral route every day at bedtime 0 0 02/26/2015 0 fentaNYL (DURAGESIC) 12 mcg/hr apply 1 patch by transdermal route every 72 hours 0 patch 0 03/18/2016 9 hydroCHLOROthiaz izabella (HYDRODIURIL) 25 mg tablet take 1 tablet by oral route every day 90 3 11/03/2016 8 multivitamin tablet tablet take 1 tablet by oral route every day with food 0 0 02/26/2015 8 ramipril (ALTACE) 10 mg capsule take 1 capsule by oral route every day 0 0 02/26/2015 0 salmon oil-omega-3 fatty acids (SALMON OIL-1000) 1,000-200 mg capsule 0 0 11/03/2016 0 senna-docusate (SENNA PLUS) 8.6-50 mg take 2 tablet by oral route every day 0 0 11/03/2016 0 documented as of this encounter Discharge Disposition Disposition Code Departure Means Destination Discharge to home or self care documented in this encounter Plan of Treatment Not on file documented as of this encounter Procedures Procedure Name Priority Date/Time Associated Diagnosis Comments CTA NECK W WO CONTRAST Routine 02/16/2017 6:01 PM CDT CTA HEAD W WO CONTRAST Routine 02/16/2017 6:01 PM CDT POCT CREATININE FOR CONTRAST EVALUATION Routine Gen Lab 02/16/2017 12:41 PM CDT documented in this encounter Results * CTA Head W WO Contrast (02/16/2017 6:01 PM CDT) Anatomical Region Laterality Modality Head and Neck N/A Computed Tomogra phy 02/16/2017 6:01 PM CDT Narrative 02/16/2017 6:01 PM CDT STEPHEN JAMES M.D. JAYESH DELEON M.D. FINAL REPORT The radiology attending physician has personally reviewed this study, and has reviewed and/or edited this written report and agrees with it. ACC# ??Date Time ??Exam [id number] Feb 16, 2017 13:01:[address] Angio Head w/o ??and ??w cont [id number] Feb 16, 2017 13:01:[id number] Angio Neck EXAMINATION: ?? Computed tomography angiography (CTA) of the head and neck without and with contrast HISTORY: Atherosclerosis TECHNIQUE: Computed tomography of the head was performed without contrast according to standard protocol. Computed tomographic angiography was obtained from the level of the aortic arch to the vertex following the uneventful administration of intravenous contrast. 3D images were generated on a dedicated workstation. Contrast information: 98 mL Optiray-350 COMPARISON: Correlation is made to the prior MRA dated 05/22/2016 FINDINGS: Topogram demonstrates no lytic lesions or [...] sinuses are normal. No fractures are identified. Scattered subcentimeter lymph nodes are seen in the neck. None are pathologically enlarged or abnormally enhancing. The muscles of the neck are normal. Fascial planes are preserved and the deep spaces of the neck are normal. The visualized airway is widely patent. The spinal canal is normal in caliber. Intervertebral disk heights are normal. Neural foramina are normal. Limited examination of the superior thorax shows no pulmonary infiltrate, suspicious nodules, or pleural effusions. Angiographic findings: There is atherosclerotic calcification of the aortic arch with severe stenosis at the origin of the right innominate artery and left common carotid artery. There is calcified atherosclerotic plaque at the origin of the left subclavian artery without significant stenosis. There is calcified atherosclerotic plaque throughout both common carotid arteries without stenosis. There is severe stenosis at the origin of the right vertebral artery due to calcified atherosclerotic plaque. The left vertebral artery is patent to the level of C2 where there is focal occlusion with reconstitution at the level of C1. There is 60% stenosis at the origin of the right internal carotid artery. There is less than 50% stenosis at the origin of the left internal carotid artery. The rpnvtj-pw-Cmcdno is complete. The anterior and middle cerebral arteries are normal. The vertebral arteries are codominant. The basilar artery is normal. The posterior cerebral arteries are normal. There is no aneurysm or vascular malformation identified. IMPRESSION: ?? 1. 60% stenosis at the origin of the right internal carotid artery which may be a slight underestimation given the presence of chunky calcifications on CTA. 2. Less than 50% stenosis at the origin of the left internal carotid artery. 3. Severe stenosis at the origin of the right innominate, left common carotid, and right vertebral arteries due to atherosclerotic calcifications. 4. Persistent focal occlusion of the distal left V2 segment at the level of C2 with reconstitution at the level of C1. Requested By: Nanci Trujillo ??MLauroD. ? Dictated By: ?? JAYESH DELEON M.D. ??on Feb 16 2017 ??2:14P This document has been electronically signed by: STEPHEN JAMES M.D. on Feb 16 2017 ??2:21P [id number] JAMES M.D. JAYESH DELEON M.D. FINAL REPORT The radiology attending physician has personally reviewed this study, and has reviewed and/or edited this written report and agrees with it. Attending: ??RONNIE, ??NANCI Requesting: ??Ronnie, ??Nanci Requesting Fax: ?? Attending Fax: ?? Attending ID: ??[id number] Requesting ID: ??[id number] Report To 1 ID: ??[id number] ? Report To 1 Name: ??, ?? Report To 1 FAX: ?? NextGen Order #: ?? Procedure Note Miscellaneous, Not In File - 06/22/2017 STEPHEN JAMES M.D. JAYESH DELEON M.D. FINAL REPORT The radiology attending physician has personally reviewed this study, and has reviewed and/or edited this written report and agrees with it. ACC# Date Time Exam [id number] Feb 16, 2017 13:01:[address] Angio Head w/o and w cont [id number] Feb 16, 2017 13:01:[id number] Angio Neck EXAMINATION: Computed tomography angiography (CTA) of the head and neck without and with contrast HISTORY: Atherosclerosis TECHNIQUE: Computed tomography of the head was performed without contrast according to standard protocol. Computed tomographic angiography was obtained from the level of the aortic arch to the vertex following the uneventful administration of intravenous contrast. 3D images were generated on a dedicated workstation. Contrast information: 98 mL Optiray-350 COMPARISON: Correlation is made to the prior MRA dated 05/22/2016 FINDINGS: Topogram demonstrates no lytic lesions or [...] sinuses are normal. No fractures are identified. Scattered subcentimeter lymph nodes are seen in the neck. None are pathologically enlarged or abnormally enhancing. The muscles of the neck are normal. Fascial planes are preserved and the deep spaces of the neck are normal. The visualized airway is widely patent. The spinal canal is normal in caliber. Intervertebral disk heights are normal. Neural foramina are normal. Limited examination of the superior thorax shows no pulmonary infiltrate, suspicious nodules, or pleural effusions. Angiographic findings: There is atherosclerotic calcification of the aortic arch with severe stenosis at the origin of the right innominate artery and left common carotid artery. There is calcified atherosclerotic plaque at the origin of the left subclavian artery without significant stenosis. There is calcified atherosclerotic plaque throughout both common carotid arteries without stenosis. There is severe stenosis at the origin of the right vertebral artery due to calcified atherosclerotic plaque. The left vertebral artery is patent to the level of C2 where there is focal occlusion with reconstitution at the level of C1. There is 60% stenosis at the origin of the right internal carotid artery. There is less than 50% stenosis at the origin of the left internal carotid artery. The syafmo-eo-Wfgnnu is complete. The anterior and middle cerebral arteries are normal. The vertebral arteries are codominant. The basilar artery is normal. The posterior cerebral arteries are normal. There is no aneurysm or vascular malformation identified. IMPRESSION: 1. 60% stenosis at the origin of the right internal carotid artery which may be a slight underestimation given the presence of chunky calcifications on CTA. 2. Less than 50% stenosis at the origin of the left internal carotid artery. 3. Severe stenosis at the origin of the right innominate, left common carotid, and right vertebral arteries due to atherosclerotic calcifications. 4. Persistent focal occlusion of the distal left V2 segment at the level of C2 with reconstitution at the level of C1. Requested By: Nanci Trujillo M.D. Dictated By: JAYESH DELEON M.D. on Feb 16 2017 2:14P This document has been electronically signed by: STEPHEN JAMES M.D. on Feb 16 2017 2:21P [id number] TINEO M.D. FINAL REPORT The radiology attending physician has personally reviewed this study, and has reviewed and/or edited this written report and agrees with it. Attending: NANCI TRUJILLO Requesting: Nanci Trujillo Requesting Fax: Attending Fax: Attending ID: [id number] Requesting ID: [id number] Report To 1 ID: [id number] Report To 1 Name: , Report To 1 FAX: NextGen Order #: Nanci Trujillo MD IM CT PROCEDURES Edited Result - Final * CTA Neck W WO Contrast (02/16/2017 6:01 PM CDT) Anatomical Region Laterality Modality Head and Neck N/A Computed Tomogra phy 02/16/2017 6:01 PM CDT Narrative 02/16/2017 6:01 PM CDT Laura TINEO M.D. FINAL REPORT The radiology attending physician has personally reviewed this study, and has reviewed and/or edited this written report and agrees with it. ACC# ??Date Time ??Exam [id number] Feb 16, 2017 13:01:[id number] Angio Head w/o ??and ??w cont [id number] Feb 16, 2017 13:01:[address] Angio Neck EXAMINATION: ?? Computed tomography angiography (CTA) of the head and neck without and with contrast HISTORY: Atherosclerosis TECHNIQUE: Computed tomography of the head was performed without contrast according to standard protocol. Computed tomographic angiography was obtained from the level of the aortic arch to the vertex following the uneventful administration of intravenous contrast. 3D images were generated on a dedicated workstation. Contrast information: 98 mL Optiray-350 COMPARISON: Correlation is made to the prior MRA dated 05/22/2016 FINDINGS: Topogram demonstrates no lytic lesions or [...] sinuses are normal. No fractures are identified. Scattered subcentimeter lymph nodes are seen in the neck. None are pathologically enlarged or abnormally enhancing. The muscles of the neck are normal. Fascial planes are preserved and the deep spaces of the neck are normal. The visualized airway is widely patent. The spinal canal is normal in caliber. Intervertebral disk heights are normal. Neural foramina are normal. Limited examination of the superior thorax shows no pulmonary infiltrate, suspicious nodules, or pleural effusions. Angiographic findings: There is atherosclerotic calcification of the aortic arch with severe stenosis at the origin of the right innominate artery and left common carotid artery. There is calcified atherosclerotic plaque at the origin of the left subclavian artery without significant stenosis. There is calcified atherosclerotic plaque throughout both common carotid arteries without stenosis. There is severe stenosis at the origin of the right vertebral artery due to calcified atherosclerotic plaque. The left vertebral artery is patent to the level of C2 where there is focal occlusion with reconstitution at the level of C1. There is 60% stenosis at the origin of the right internal carotid artery. There is less than 50% stenosis at the origin of the left internal carotid artery. The egektd-ms-Stooql is complete. The anterior and middle cerebral arteries are normal. The vertebral arteries are codominant. The basilar artery is normal. The posterior cerebral arteries are normal. There is no aneurysm or vascular malformation identified. IMPRESSION: ?? 1. 60% stenosis at the origin of the right internal carotid artery which may be a slight underestimation given the presence of chunky calcifications on CTA. 2. Less than 50% stenosis at the origin of the left internal carotid artery. 3. Severe stenosis at the origin of the right innominate, left common carotid, and right vertebral arteries due to atherosclerotic calcifications. 4. Persistent focal occlusion of the distal left V2 segment at the level of C2 with reconstitution at the level of C1. Requested By: Nanci Trujillo ??M.D. ? Dictated By: ?? JAYESH DELEON M.D. ??on Feb 16 2017 ??2:14P This document has been electronically signed by: STEPHEN JAMES M.D. on Feb 16 2017 ??2:21P [id number] TINEO M.D. FINAL REPORT The radiology attending physician has personally reviewed this study, and has reviewed and/or edited this written report and agrees with it. Attending: ??RONNIE, ??NANCI Requesting: ??Ronnie, ??Nanci Requesting Fax: ?? Attending Fax: ?? Attending ID: ??[id number] Requesting ID: ??[id number] Report To 1 ID: ??[id number] ? Report To 1 Name: ??, ?? Report To 1 FAX: ?? NextGen Order #: ?? Procedure Note Miscellaneous, Not In File - 06/22/2017 Laura TINEO M.D. FINAL REPORT The radiology attending physician has personally reviewed this study, and has reviewed and/or edited this written report and agrees with it. ACC# Date Time Exam [id number] Feb 16, 2017 13:01:[address] Angio Head w/o and w cont [id number] Feb 16, 2017 13:01:[id number] Angio Neck EXAMINATION: Computed tomography angiography (CTA) of the head and neck without and with contrast HISTORY: Atherosclerosis TECHNIQUE: Computed tomography of the head was performed without contrast according to standard protocol. Computed tomographic angiography was obtained from the level of the aortic arch to the vertex following the uneventful administration of intravenous contrast. 3D images were generated on a dedicated workstation. Contrast information: 98 mL Optiray-350 COMPARISON: Correlation is made to the prior MRA dated 05/22/2016 FINDINGS: Topogram demonstrates no lytic lesions or [...] sinuses are normal. No fractures are identified. Scattered subcentimeter lymph nodes are seen in the neck. None are pathologically enlarged or abnormally enhancing. The muscles of the neck are normal. Fascial planes are preserved and the deep spaces of the neck are normal. The visualized airway is widely patent. The spinal canal is normal in caliber. Intervertebral disk heights are normal. Neural foramina are normal. Limited examination of the superior thorax shows no pulmonary infiltrate, suspicious nodules, or pleural effusions. Angiographic findings: There is atherosclerotic calcification of the aortic arch with severe stenosis at the origin of the right innominate artery and left common carotid artery. There is calcified atherosclerotic plaque at the origin of the left subclavian artery without significant stenosis. There is calcified atherosclerotic plaque throughout both common carotid arteries without stenosis. There is severe stenosis at the origin of the right vertebral artery due to calcified atherosclerotic plaque. The left vertebral artery is patent to the level of C2 where there is focal occlusion with reconstitution at the level of C1. There is 60% stenosis at the origin of the right internal carotid artery. There is less than 50% stenosis at the origin of the left internal carotid artery. The jtkcxi-hg-Kpvvpc is complete. The anterior and middle cerebral arteries are normal. The vertebral arteries are codominant. The basilar artery is normal. The posterior cerebral arteries are normal. There is no aneurysm or vascular malformation identified. IMPRESSION: 1. 60% stenosis at the origin of the right internal carotid artery which may be a slight underestimation given the presence of chunky calcifications on CTA. 2. Less than 50% stenosis at the origin of the left internal carotid artery. 3. Severe stenosis at the origin of the right innominate, left common carotid, and right vertebral arteries due to atherosclerotic calcifications. 4. Persistent focal occlusion of the distal left V2 segment at the level of C2 with reconstitution at the level of C1. Requested By: Nanci Trujillo M.D. Dictated By: JAYESH DELEON M.D. on Feb 16 2017 2:14P This document has been electronically signed by: STEPHEN JAMES M.D. on Feb 16 2017 2:21P [id number] ENLGAND M.D. FINAL REPORT The radiology attending physician has personally reviewed this study, and has reviewed and/or edited this written report and agrees with it. Attending: NANCI TRUJILLO Requesting: Nanci Trujillo Requesting Fax: Attending Fax: Attending ID: [id number] Requesting ID: [id number] Report To 1 ID: [id number] Report To 1 Name: , Report To 1 FAX: NextGen Order #: Nanci Trujillo MD IMG CT PROCEDURES Edited Result - Final * POCT creatinine (02/16/2017 12:41 PM CDT) Creatinine POC 0.8 0.6 - 1.1 mg/dL YAO GARCES Blood specimen (specimen) 02/16/2017 12:41 PM CDT 02/16/2017 12:41 PM CDT us Nanci Trujillo MD POINT OF CARE TEST ORDERA BLES Final Result [facility] Department of Laboratories [place] [address] documented in this encounter Visit Diagnoses Not on filedocumented in this encounter Care Teams Water Trainer Relationship Specialty Start Date End Date Abbe Nails MD [address] [address] PCP - General 12/05/16 10/13/19 documented as of this encounter
--- OUTSIDE RECORDS SUMMARY | 2024-09-08 08:25 | XMS_ITS | Encounter Summary ---
Author Organization [facility] made[facility]com of [facility] Address [address] [facility] [address] [place] [address] Phone Care Team Providers Care Steam Blocker Name Role Phone Abbe Nails MD Primary Care Provider Reason for Referral * Diagnostic Imaging (Routine) - Closed Specialty Diagnoses / Procedures Referred By Khadijah ricks Referred To Contact Diagnoses Bilateral carotid artery stenosis Procedures US Carotids Duplex Bilateral Nafisa Norris NP Phone: tel: fax: [facility] (All Locations) Referral ID Status Reason Start Date Expiration Date Visits Re quested Visits Authorized [id number] Closed 02/03/2018 08/24/2019 1 1 Encounter Details Date Type Department Care Team (Late st Contact Info) Description 02/03/2018 Orders Only [facility] Vascular Lab at the [place] [facility] [address] [facility] 8th [place] [address] [place] [address] Nafisa Norris NP [address] [facility] [id number] [place] [address] Bilateral carotid artery stenosis (Primary Dx) Social History Tobacco Use Types Packs/Day Years Used Date Smoking Tobacco: Former Alcohol Use Standard Drinks/Week Comments Yes 0 (1 standard drink = 0.6 oz pur e alcohol) Comments Unknown Sex and Gender Information Value Date Recorded Sex Assigned at Not on file 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 Gender Identity Not on file Sexual Orientation Not on file documented as of this encounter Plan of Treatment Not on file documented as of this encounter Results * US Carotids Duplex Bilateral (04/12/2018 10:26 AM CDT) Anatomical Region Laterality Modality Vascular Bilateral Ultrasound 04/12/2018 9:50 AM CDT Narrative 04/13/2018 10:18 PM CDT [facility] - Department of Vascular Surgery, Vascular Laboratory [address] [place] [address] Carotid Duplex Ultrasound Report Patient Name: SUMA SAENZ K : 1946 (72y 3m) Study Date: 04/12/2018 9:50:24 AM [...] PSV ?91.70 ? cm/sec ? Findings: Performing Gang Punch Operator: ERYN TorresT. Rt Common Carotid Artery: The plaque in [...] performed. Electronically Signed By: Zachary Giron MD [facility] 2018-04-13 22:18:01 CDT CC: CC: Procedure Note Zachary Giron MD - 04/13/2018 [facility] - Department of Vascular Surgery,Vascular Laboratory [address] [place] [address] Carotid Duplex Ultrasound Report Patient Name: SUMA SAENZ KPatient ID: [id number] : 1945 (72y 3m)Study Date: 04/12/2018 9:50:24 AM Gender: FAccession #: [id number] Tech: ACLocation: Ref.Physician: Luz NORRIS(Inch): BSA: Weight(LB): Quality: AdequateOrder Physician: NAFISA NORRIS [...] cm/sec LT VERT PSV 91.70cm/sec Findings: Performing Gang Punch Operator: Christal Aiken RVT. Rt Common Carotid Artery: [...] performed. Electronically Signed By: Zachary Giron MD [facility] 2018-04-13 22:18:01 CDT CC: CC: Nafisa Norris MECHANIC MARINE ENGINE IMG US PROCEDURES Final Result documented in this encounter Visit Diagnoses Diagnosis Bilateral carotid artery stenosis- Primary Occlusion and stenosis of carotid artery without mention of cerebral infarction Bilateral carotid artery stenosis Occlusion and stenosis of carotid artery without mention of cerebral infarction documented in this encounter Care Teams Steam Blocker Relationship Specialty Start Date End Date Abbe Nails MD [address] [place] [address] PCP - General 12/05/16 10/13/19 documented as of this encounter
--- OUTSIDE RECORDS SUMMARY | 2024-09-08 08:25 | XMS_ITS | Encounter Summary ---
Author Organization [facility] Address [address] [place] [address] Care Team Providers Care Biomedical Equipment Technician Name Role Phone Abbe Nails MD Primary Care Provider [phone] Reason for Visit * Cardiology (Routine) - Canceled Specialty Diagnoses / Procedures Referred By Contac t Referred To Contact Diagnoses Syncope and collapse Procedures [facility] Mobile Cardiac Telemetry Event Monitor Marco A Antoine MD Phone: tel: fax: Referral ID Status Reason Start Date Expiration Date V isits Requested Visits Authorized [id number] Canceled 04/05/2019 10/14/2020 1 1 Encounter Details Date Type Department Care Team (Latest Contact Info) Description 04/05/2019 1:30 PM CDT Ancillary Procedure [facility] Cardiology [address] [place] [address] Syncope and collapse Social History Tobacco Use Types Packs/Day Years Used Date Smoking Tobacco: Former Cigarettes Smokeless Tobacco: Never Alcohol Use Standard Drinks/Week Comments Yes 0 (1 standard drink = 0.6 oz pur e alcohol) Comments Unknown Sex and Gender Information Value Date Recorded Sex Assigned at Not on file 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 Ordering Physician Dr. Antoine. Total analysis time was for 22 days 5 hours and 4 minutes. Findings Underlying normal sinus rhythm with heart rate variability between 50 and 113 beats per minute withan average heart rate of 62 beats per minute. There was no atrial fibrillation, SVT, significant pauses, heart block, or sustained or nonsustained runs of ventricular tachycardia. There was low frequency ventricular and supraventricular ectopy, both of which were less than 1% burden. One symptom event with no symptom indicated correlates to sinus rhythm with a heart rate of 64 beats per minute. Conclusion 1. air sampling and monitoring showing underlying normal sinus rhythm with average heart rate of 62 beats perminute. 2. Low frequency ventricular and supraventricular ectopy, but without complex arrhythmia, significant pauses, atrial fibrillation, or heart block. Job ID/VF Job ID: [id number] documented in this encounter Plan of Treatment Pending Results Name Type Priority Associated Diagnoses Date /Time [facility] Mobile Cardiac Telemetry Event Monitor Cardiac Services Routine Syncope and collapse 04/05/2019 2:26 PM CDT documented as of this encounter Visit Diagnoses Diagnosis Syncope and collapse documented in this encounter Care Teams Biomedical Equipment Technician Relationship Specialty Start Date End Date Abbe Nails MD [address] [place] [address] PCP - General 12/05/16 10/13/19 documented as of this encounter
--- OUTSIDE RECORDS SUMMARY | 2024-09-08 08:25 | XMS_ITS | Encounter Summary ---
Author Organization [facility] Address [address] [place] [address] Care Team Providers Care Embedded Software Developer Name Role Phone Abbe Nails MD Primary Care Provider Encounter Details Date Type Department Care Team (Late st Contact Info) Description 04/28/2019 Documentation Vascular Surgery Zachary Giron MD [address] [facility] [id number] [place] [address] Social History Tobacco Use Types Packs/Day Years Used Date Smoking Tobacco: Former Cigarettes Smokeless Tobacco: Never Alcohol Use Standard Drinks/Week Comments Yes 0 (1 standard drink = 0.6 oz pur e alcohol) Comments Unknown Sex and Gender Information Value Date Recorded Sex Assigned at Not on file 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 She has severe grade vessel disease. Revascularization would require sternotomy, and bypass to the right subclavian artery, right common carotid artery, and left common carotid artery. She was also seen by Dr. Rianna Arredondo of neurology for this issue. Given her surgical risk, we arrived at a plan for medical management, and that appear gisselle working well. However, she experienced visual changes and syncope in mid March. I will schedule her for follow-up visit with CTA of the arch through brain. She should go the ER if she experiences further symptoms. We will also try to get her rescheduled with Dr. Arredondo. * Abelardo, Olivia Hensona - 04/28/2019 6:58 PM CDT Appt scheduled for 05/06/19 documented in this encounter Plan of Treatment Not on file documented as of this encounter Visit Diagnoses Not on filedocumented in this encounter Care Teams Embedded Software Developer Relationship Specialty Start Date End Date Abbe Nails MD [address] [address] PCP - General 12/05/16 10/13/19 documented as of this encounter
--- OUTSIDE RECORDS SUMMARY | 2024-09-08 08:25 | XMS_ITS | Encounter Summary ---
Author Organization [facility] Care Team Providers Care Scorer Single Name Role Phone Abbe Nails MD Primary Care Provider [phone] Encounter Details Date Type Department Care Team (Late st Contact Info) Description 03/31/2016 9:41 AM CDT - 03/31/2016 11:59 PM CDT Hospital Encounter [facility] Zachary Michaels MD [address] [facility] [id number] [place] [address] Occlusion and stenosis of bilateral carotid arteries Social History Tobacco Use Types Packs/Day Years Used Date Smoking Tobacco: Former Alcohol Use Standard Drinks/Week Comments Yes 0 (1 standard drink = 0.6 oz pur e alcohol) Comments Unknown Sex and Gender Information Value Date Recorded Sex Assigned at Not on file 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 STACIE CHRISTIAN M.D. FINAL REPORT The radiology attending physician has personally reviewed this study, and has reviewed and/or edited this written report and agrees with it. ACC# ??Date Time ??Exam [id number] Mar 31, 2016 10:31:[id number] Angio Head w/o & w cont [id number] Mar 31, 2016 10:31:[address] Angio Neck ACC# ??Date Time ??Exam [id number] Mar 31, 2016 10:31:[address] Angio Head w/o & w cont [id number] Mar 31, 2016 10:31:[id number] Angio Neck EXAMINATION: ?? Computed tomography angiography (CTA) of the head and neck without and with contrast HISTORY: Bilateral carotid artery stenosis TECHNIQUE: Computed tomography of the head was performed without contrast according to standard protocol. Computed tomographic angiography was obtained from the level of the aortic arch to the vertex following the uneventful administration of intravenous contrast. 3D images were generated on a dedicated workstation. Contrast information: Approximately 100 mL Optiray-350 COMPARISON: None available. FINDINGS: Topogram demonstrates no lytic lesions or [...] or pleural effusions. Angiographic findings: There is mild atherosclerotic calcification of the aortic arch. There is a normal three-vessel arch. 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 Evaluation of degree of stenosis is limited by incoming contrast and adjacent calcification. There is moderate atherosclerotic narrowing of the origin the right vertebral artery by calcified plaque. There is decreased opacification distally, likely related to slow antegrade flow. There is focal occlusion of the left vertebral artery at C2 with reconstitution at C1. There is a 40 to 50% stenosis of the proximal right internal carotid artery by predominately calcified plaque (minimal diameter 2.2 mm, with normal distal diameter measured as 4.1 mm, as measured on curved MPR and bone windows). Note that semiautomated NASCET style measurement of stenosis via Vital Caspera software calculated 40% stenosis on one instance and 49% stenosis on another. There is minimal atherosclerotic calcification the left internal carotid artery without significant narrowing. The [id number]-[id number] is complete. There is mild atherosclerotic calcification of the cavernous carotid arteries without significant narrowing. The anterior and middle cerebral arteries are normal. The right vertebral artery is diminutive. There is decreased caliber of the basilar artery with prominent posterior communicating arteries. The posterior cerebral arteries are normal. There is no aneurysm or vascular malformation identified. ?? IMPRESSION: 1. 40 to 50% stenosis of the proximal right internal carotid artery by predominantly calcified plaque. However, based on our own data, the presence of significant calcified plaque may lead to significant inaccuracies in classifying carotid stenosis on CTA relative to catheter angiography. 2. Focal occlusion of the left vertebral artery at the level of C2 with distal reconstitution. 3. Atherosclerotic calcification of the right vertebral artery origin with moderate stenosis, and decrease opacification probably related to slow antegrade flow. 4. No significant stenosis of the left internal carotid artery. ?? Requested By: Dictated By: ?? STACIE CHRISTIAN M.D. ??on Mar 31 2016 11:22A This document has been electronically signed by: HAM REINA M.D. on Mar 31 2016 ??7:48P [id number] Procedure Note Provider, MD Nimesh - 01/06/2017 HAM REINA M.D. STACIE CHRISTIAN M.D. FINAL REPORT The radiology attending physician has personally reviewed this study, and has reviewed and/or edited this written report and agrees with it. ACC# Date Time Exam [id number] Mar 31, 2016 10:31:[id number] Angio Head w/o & w cont [id number] Mar 31, 2016 10:31:[id number] Angio Neck ACC# Date Time Exam [id number] Mar 31, 2016 10:31:[id number] Angio Head w/o & w cont [id number] Mar 31, 2016 10:31:[id number] Angio Neck EXAMINATION: Computed tomography angiography (CTA) of the head and neck without and with contrast HISTORY: Bilateral carotid artery stenosis TECHNIQUE: Computed tomography of the head was performed without contrast according to standard protocol. Computed tomographic angiography was obtained from the level of the aortic arch to the vertex following the uneventful administration of intravenous contrast. 3D images were generated on a dedicated workstation. Contrast information: Approximately 100 mL Optiray-350 COMPARISON: None available. FINDINGS: Topogram demonstrates no lytic lesions or [...] or pleural effusions. Angiographic findings: There is mild atherosclerotic calcification of the aortic arch. There is a normal three-vessel arch. 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 Evaluation of degree of stenosis is limited by incoming contrast and adjacent calcification. There is moderate atherosclerotic narrowing of the origin the right vertebral artery by calcified plaque. There is decreased opacification distally, likely related to slow antegrade flow. There is focal occlusion of the left vertebral artery at C2 with reconstitution at C1. There is a 40 to 50% stenosis of the proximal right internal carotid artery by predominately calcified plaque (minimal diameter 2.2 mm, with normal distal diameter measured as 4.1 mm, as measured on curved MPR and bone windows). Note that semiautomated NASCET style measurement of stenosis via Vital Caspera software calculated 40% stenosis on one instance and 49% stenosis on another. There is minimal atherosclerotic calcification the left internal carotid artery without significant narrowing. The jlvwsp-[id number]-Aawier is complete. There is mild atherosclerotic calcification of the cavernous carotid arteries without significant narrowing. The anterior and middle cerebral arteries are normal. The right vertebral artery is diminutive. There is decreased caliber of the basilar artery with prominent posterior communicating arteries. The posterior cerebral arteries are normal. There is no aneurysm or vascular malformation identified. IMPRESSION: 1. 40 to 50% stenosis of the proximal right internal carotid artery by predominantly calcified plaque. However, based on our own data, the presence of significant calcified plaque may lead to significant inaccuracies in classifying carotid stenosis on CTA relative to catheter angiography. 2. Focal occlusion of the left vertebral artery at the level of C2 with distal reconstitution. 3. Atherosclerotic calcification of the right vertebral artery origin with moderate stenosis, and decrease opacification probably related to slow antegrade flow. 4. No significant stenosis of the left internal carotid artery. Requested By: Dictated By: STACIE CHRISTIAN M.D. on Mar 31 2016 11:22A This document has been electronically signed by: HAM REINA M.D. on Mar 31 2016 7:48P [id number] us Historical Provider MD GEORGE CT PROCEDURES Final R esult * CT Angiogram Neck W WO Contrast (03/31/2016 10:31 AM CDT) Anatomical Region Laterality Modality Head and Neck N/A Computed Tomogra phy 03/31/2016 10:3 1 AM CDT Narrative 03/31/2016 7:48 PM CDT HAM REINA M.D. STACIE CHRISTIAN M.D. FINAL REPORT The radiology attending physician has personally reviewed this study, and has reviewed and/or edited this written report and agrees with it. ACC# ??Date Time ??Exam [id number] Mar 31, 2016 10:31:[id number] Angio Head w/o & w cont [id number] Mar 31, 2016 10:31:[id number] Angio Neck ACC# ??Date Time ??Exam [id number] Mar 31, 2016 10:31:[id number] Angio Head w/o & w cont [id number] Mar 31, 2016 10:31:[id number] Angio Neck EXAMINATION: ?? Computed tomography angiography (CTA) of the head and neck without and with contrast HISTORY: Bilateral carotid artery stenosis TECHNIQUE: Computed tomography of the head was performed without contrast according to standard protocol. Computed tomographic angiography was obtained from the level of the aortic arch to the vertex following the uneventful administration of intravenous contrast. 3D images were generated on a dedicated workstation. Contrast information: Approximately 100 mL Optiray-350 COMPARISON: None available. FINDINGS: Topogram demonstrates no lytic lesions or [...] or pleural effusions. Angiographic findings: There is mild atherosclerotic calcification of the aortic arch. There is a normal three-vessel arch. 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 Evaluation of degree of stenosis is limited by incoming contrast and adjacent calcification. There is moderate atherosclerotic narrowing of the origin the right vertebral artery by calcified plaque. There is decreased opacification distally, likely related to slow antegrade flow. There is focal occlusion of the left vertebral artery at C2 with reconstitution at C1. There is a 40 to 50% stenosis of the proximal right internal carotid artery by predominately calcified plaque (minimal diameter 2.2 mm, with normal distal diameter measured as 4.1 mm, as measured on curved MPR and bone windows). Note that semiautomated NASCET style measurement of stenosis via Vital Caspera software calculated 40% stenosis on one instance and 49% stenosis on another. There is minimal atherosclerotic calcification the left internal carotid artery without significant narrowing. The adviwz-wz-Spyrzr is complete. There is mild atherosclerotic calcification of the cavernous carotid arteries without significant narrowing. The anterior and middle cerebral arteries are normal. The right vertebral artery is diminutive. There is decreased caliber of the basilar artery with prominent posterior communicating arteries. The posterior cerebral arteries are normal. There is no aneurysm or vascular malformation identified. ?? IMPRESSION: 1. 40 to 50% stenosis of the proximal right internal carotid artery by predominantly calcified plaque. However, based on our own data, the presence of significant calcified plaque may lead to significant inaccuracies in classifying carotid stenosis on CTA relative to catheter angiography. 2. Focal occlusion of the left vertebral artery at the level of C2 with distal reconstitution. 3. Atherosclerotic calcification of the right vertebral artery origin with moderate stenosis, and decrease opacification probably related to slow antegrade flow. 4. No significant stenosis of the left internal carotid artery. ?? Requested By: Dictated By: ?? STACIE CHRISTIAN M.D. ??on Mar 31 2016 11:22A This document has been electronically signed by: HAM REINA M.D. on Mar 31 2016 ??7:48P Procedure Note Provider, MD Nimesh - 01/06/2017 HAM REINA M.D. STACIE CHRISTIAN M.D. FINAL REPORT The radiology attending physician has personally reviewed this study, and has reviewed and/or edited this written report and agrees with it. ACC# Date Time Exam [id number] Mar 31, 2016 10:31:[address] Angio Head w/o & w cont [id number] Mar 31, 2016 10:31:[id number] Angio Neck ACC# Date Time Exam [id number] Mar 31, 2016 10:31:[id number] Angio Head w/o & w cont [id number] Mar 31, 2016 10:31:[address] Angio Neck EXAMINATION: Computed tomography angiography (CTA) of the head and neck without and with contrast HISTORY: Bilateral carotid artery stenosis TECHNIQUE: Computed tomography of the head was performed without contrast according to standard protocol. Computed tomographic angiography was obtained from the level of the aortic arch to the vertex following the uneventful administration of intravenous contrast. 3D images were generated on a dedicated workstation. Contrast information: Approximately 100 mL Optiray-350 COMPARISON: None available. FINDINGS: Topogram demonstrates no lytic lesions or [...] or pleural effusions. Angiographic findings: There is mild atherosclerotic calcification of the aortic arch. There is a normal three-vessel arch. 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 Evaluation of degree of stenosis is limited by incoming contrast and adjacent calcification. There is moderate atherosclerotic narrowing of the origin the right vertebral artery by calcified plaque. There is decreased opacification distally, likely related to slow antegrade flow. There is focal occlusion of the left vertebral artery at C2 with reconstitution at C1. There is a 40 to 50% stenosis of the proximal right internal carotid artery by predominately calcified plaque (minimal diameter 2.2 mm, with normal distal diameter measured as 4.1 mm, as measured on curved MPR and bone windows). Note that semiautomated NASCET style measurement of stenosis via Vital Vitrea software calculated 40% stenosis on one instance and 49% stenosis on another. There is minimal atherosclerotic calcification the left internal carotid artery without significant narrowing. The [id number] is complete. There is mild atherosclerotic calcification of the cavernous carotid arteries without significant narrowing. The anterior and middle cerebral arteries are normal. The right vertebral artery is diminutive. There is decreased caliber of the basilar artery with prominent posterior communicating arteries. The posterior cerebral arteries are normal. There is no aneurysm or vascular malformation identified. IMPRESSION: 1. 40 to 50% stenosis of the proximal right internal carotid artery by predominantly calcified plaque. However, based on our own data, the presence of significant calcified plaque may lead to significant inaccuracies in classifying carotid stenosis on CTA relative to catheter angiography. 2. Focal occlusion of the left vertebral artery at the level of C2 with distal reconstitution. 3. Atherosclerotic calcification of the right vertebral artery origin with moderate stenosis, and decrease opacification probably related to slow antegrade flow. 4. No significant stenosis of the left internal carotid artery. Requested By: Dictated By: STACIE CHRISTIAN M.D. on Mar 31 2016 11:22A This document has been electronically signed by: HAM REINA M.D. on Mar 31 2016 7:48P us Historical Provider IMJacqui CT PROCEDURES Final R esult * Blood creatinine, point of care (03/31/2016 10:01 AM CDT) Creatinine, POC, bld 0.8 0.6 - 1.1 mg/dl CDR HISTORICAL RESULTS Blood specimen (specimen) 03/31/2016 10:01 AM CDT us Zachary Giron MD LAB BLOOD ORDERABLES Tiffany l Result CDR HISTORICAL RESULTS documented in this encounter Visit Diagnoses Diagnosis Occlusion and stenosis of bilateral carotid arteries documented in this encounter Care Teams Scorer Single Relationship Specialty Start Date End Date Abbe Nails MD [address] [place] [address] PCP - General 03/12/15 12/04/16 documented as of this encounter
--- OUTSIDE RECORDS SUMMARY | 2024-09-08 08:25 | XMS_ITS | Encounter Summary ---
Author Organization [facility] Address [address] [facility] [address] [place] [address] Phone Care Team Providers Care Hand Woodworking Sander Name Role Phone Abbe Nails MD Primary Care Provider [phone] Encounter Details Date Type Department Care Team (Late st Contact Info) Description 04/12/2018 11:45 AM CDT Office Visit [facility] Surgery [address] [facility] 8th [place] [address] [place] [address] Nafisa oNrris, OVERHAULER HELPER [address] [facility] [address] [place] [address] Bilateral carotid bruits Social History Tobacco Use Types Packs/Day Years Used Date Smoking Tobacco: Former Cigarettes Smokeless Tobacco: Never Alcohol Use Standard Drinks/Week Comments Yes 0 (1 standard drink = 0.6 oz pur e alcohol) Comments Unknown Sex and Gender Information Value Date Recorded Sex Assigned at Not on file Legal Sex Female 3:40 AM BATH TESTER Gender Identity Not on file Sexual Orientation Not on file documented as of this encounter Last Filed Vital Signs Vital Sign Reading Time Taken Comments Blood Pressure 199/71 04/12/2018 10:30 AM CDT Pulse 56 04/12/2018 10:30 AM CDT Temperature - - Respiratory Rate - - Oxygen Saturation 96% 04/12/2018 10:30 AM CDT Inhaled Oxygen Concentration - - Weight 101.2 kg (223 lb) 04/12/2018 10:30 AM CDT Height 170.2 cm (5' 7 ) 04/12/2018 10:30 AM CDT Body Mass Index 34.93 04/12/2018 10:30 AM CDT documented in this encounter Progress Notes * Nafisa Norris, OVERHAULER HELPER - 04/12/2018 11:45 AM CDT Suma Saenz is a 72 y.o. female who presents today for follow up of her carotid artery stenosis. Since last seen she states she is doing well with no significant complaint of unilateral weakness, slurred speech, facial drooping or temporary blindness. She denies any dizziness or arm claudication. She does states she has bilateral carpal tunnel and is going to begin physical therapy for muscle pain in her right shoulder. I have reviewed their health history form, signed it accordingly and it will be scanned into the EMR. She has a current medication list which includes the following prescription(s): aspirin, atenolol (TENORMIN), atorvastatin (LIPITOR), biotin plus keratin, bupropion xl (WELLBUTRIN XL), zyrtec, plavix, tylenol pm extra strength, doxycycline (ADOXA), fentanyl (DURAGESIC), hydrochlorothiazide (HYDRODIURIL), montelukast (SINGULAIR), ramipril (ALTACE), salmon oil-1000, and senna plus. She is allergic to naproxen; penicillins; and sulfa (sulfonamide antibiotics). On physical exam, this a pleasant female is in no apparent distress. Vital signs today are Blood pressure (!) 199/71, pulse 56, height 170.2 cm (5' 7 ), weight 101.2 kg (223 lb), SpO2 96 %. Her neck is supple with bilateral carotid bruits. Her heart rate is regular with no murmurs, she has equal upper extremity pulses. A carotid duplex study performed today demonstrated less than 50 % stenosis on the right with a PSV0.88 , EDV 0.43, IC/CC 1.42 and less than 50 % stenosis on the left with a PSV 0.74, EDV 0.29 , IC/CC 1.1. She has bidirectional flow in the right vertebral and antegrade flow in the left vertebral artery. Ms. Saenz remains asymptomatic from their carotid disease. She should return to our office in one year with repeat carotid doppler or sooner should they develop any symptoms. Nafisa Norris NP Section of Vascular Surgery [facility] cc: MD Zachary Kilpatrick MD Cosigned by Zachary Giron MD at 04/12/2018 5:01 PM CDT documented in this encounter Plan of Treatment Not on file documented as of this encounter Visit Diagnoses Diagnosis Bilateral carotid bruits documented in this encounter Care Teams Hand Woodworking Sander Relationship Specialty Start Date End Date Abbe Nails MD [address] [address] PCP - General 12/05/16 10/13/19 documented as of this encounter
--- OUTSIDE RECORDS SUMMARY | 2024-09-08 08:25 | XMS_ITS | Encounter Summary ---
Author Organization [facility] Address [address] [facility] [address] [place] [address] Phone Care Team Providers Care Medical Photographer Name Role Phone Abbe Nails MD Primary Care Provider [phone] Encounter Details Date Type Department Care Team (Late st Contact Info) Description 10/03/2019 Telephone [facility] Surgery [address] [facility] Floor 1 [place] [id number] Zachary Giron MD [address] [facility] [address] [place] [address] Social History Tobacco Use Types Packs/Day Years Used Date Smoking Tobacco: Former Cigarettes Smokeless Tobacco: Never Alcohol Use Standard Drinks/Week Comments Yes 0 (1 standard drink = 0.6 oz pur e alcohol) Comments Unknown Sex and Gender Information Value Date Recorded Sex Assigned at Not on file Legal Sex Female 3:40 AM PROCUREMENT ASSISTANT Gender Identity Not on file Sexual Orientation Not on file documented as of this encounter Miscellaneous Notes * Telephone Encounter - Vianey Baxter RN - 10/03/2019 8:22 AM CST ----- Message from Zachary Giron MD sent at 10/02/2019 6:37 PM PROCUREMENT ASSISTANT ----- Regarding: RE: schedule appt I spoke to her. No surgery at this time. She will call my office in the spring to schedule a follow-up appointment- her has some surgical care schedule, and she wants that wrapped up before seeing me. ----- Message ----- From: Annemarie Sexton RN Sent: 09/23/2019 To: Annemarie Sexton RN Subject: FW: schedule appt Reminded PJG to call her. ----- Message ----- From: Bonnie Donaldson Sent: 09/14/2019 10:13 AM PROCUREMENT ASSISTANT To: Annemarie Sexton RN Subject: schedule appt Patient called wanting to know schedule appt. I didn't see in last note when Dr. Giron wanted her to follow-up. She also said she had a CT scan and never received the results. Please let me know if she is ok to schedule. Thanks, Bonnie UREMENT ASSISTANT UREMENT ASSISTANT documented in this encounter Plan of Treatment Not on file documented as of this encounter Visit Diagnoses Not on filedocumented in this encounter Care Teams Medical Photographer Relationship Specialty Start Date End Date Abbe Nails MD [address] [place] [id number] PCP - General 12/05/16 10/13/19 documented as of this encounter
--- OUTSIDE RECORDS SUMMARY | 2024-09-08 08:25 | XMS_ITS | Encounter Summary ---
Author Organization [facility] Address [address] [facility] [address] [place] [address] Phone Care Team Providers Care Speech And Drama Teacher Name Role Phone Abbe Nails MD Primary Care Provider [phone] Reason for Visit * Reason Comments Follow-up Encounter Details Date Type Department Care Team (Late st Contact Info) Description 05/23/2019 11:30 AM CDT Office Visit [facility] Surgery [address] [facility] 8th [place] [address] [place] [address] Zachary Giron MD [address] [place] [address] [place], [place] [id number] Bilateral carotid artery stenosis (Primary Dx) Social History Tobacco Use Types Packs/Day Years Used Date Smoking Tobacco: Former Cigarettes Smokeless Tobacco: Never Alcohol Use Standard Drinks/Week Comments Yes 0 (1 standard drink = 0.6 oz pur e alcohol) Comments Unknown Sex and Gender Information Value Date Recorded Sex Assigned at Not on file Legal Sex Female 3:40 AM SIENE MAKER Gender Identity Not on file Sexual Orientation Not on file documented as of this encounter Last Filed Vital Signs Vital Sign Reading Time Taken Comments Blood Pressure 187/64 05/23/2019 11:03 AM CDT Pulse 58 05/23/2019 11:03 AM CDT Temperature - - Respiratory Rate - - Oxygen Saturation 99% 05/23/2019 11:03 AM CDT Inhaled Oxygen Concentration - - Weight 89.8 kg (198 lb) 05/23/2019 11:03 AM CDT Height 170.2 cm (5' 7 ) 05/23/2019 11:03 AM CDT Body Mass Index 31.01 05/23/2019 11:03 AM CDT documented in this encounter Progress Notes * Zachary Giron MD - 05/23/2019 11:30 AM CDT Vascular Clinic Note- Established Patient Suma Saenz is a 73 y.o. female who is seen in follow-up for multi-vessel cerebrovascular disease. HPI: This nice lady had an episode in March where she felt ???horrible?? for 15- 20 seconds. There is no loss of consciousness or lateralizing weakness. She had some degree of blurring of her bilateral vision a few moments before the episode. She states that the paramedics told her that her heart rate was in the 40s when they arrived. There has been no recurrence. As detailed in my previous notes,she has known multi-vessel cerebrovascular disease. She continues to take dual anti-platelet therapy and a statin agent. She saw Dr. Rianna Arredondo of stroke neurology on May 06. Allergies Allergen Reactions ??? Naproxen Rash ??? Penicillins Rash ??? Sulfa (Sulfonamide Antibiotics) Rash Current Outpatient Medications Medication Sig Dispense Refill ??? aspirin 325 mg tablet take 1 tablet by oral route every day 0 0 ??? atenolol (TENORMIN) 50 mg tablet Take 100 mg by mouth daily. ??? atorvastatin (LIPITOR) 80 mg tablet take [...] ??? hydroCHLOROthiazide (HYDRODIURIL) 25 mg tablet Take 1 tablet (25 mg total) by mouth daily. 90 tablet 3 ??? montelukast (SINGULAIR) 10 mg tablet take 1 tablet by oral route every day in the evening 0 0 ??? ramipril (ALTACE) 10 mg capsule take 1 capsule by oral route every day 0 0 ??? senna-docusate (SENNA PLUS) 8.6-50 mg take 2 tablet by oral route every day 0 0 ??? diphenhydrAMINE-acetaminophen (TYLENOL PM EXTRA STRENGTH) 25-500 mg tablet take 2 tablet by oral route every day at bedtime (Patient not taking: Reported on 05/23/2019) 0 0 ??? salmon oil-omega-3 fatty acids (SALMON OIL-1000) 1,000-200 mg capsule (Patient not taking: Reported on 05/23/2019) 0 0 No current facility-administered medications for this visit. History reviewed. No pertinent past medical history. History reviewed. No pertinent surgical history. Social History Tobacco Use ??? Smoking status: [...] disorder - (Added by TW Conv) ROS: Solitary episode of weakness as noted above. Other than that her review of systems is negative, with the exception of right plantar fasciitis. PHYSICAL EXAM: BP (!) 187/64 (BP Location: Left arm, Patient Position: Sitting) Pulse 58 Ht 170.2 cm (5' 7 ) Wt 89.8 kg (198 lb) SpO2 99% BMI 31.01 kg/m?? Alert and oriented x3. Her was present for our visit Affect is appropriate. Facial musculature is symmetric. Her neck extension is fair. There is a bruit over the right clavicular region/baseof the neck, and also over the left carotid. The left radial pulse is palpable. The right radial pulse is not palpable. Both hands are adequately perfused at rest. Her lungs are clear. Her abdomen isobese and benign. Lower extremities were not examined in detail. Neurologically she appears grosslyintact. Impression and Plan: She will go for CT angiogram of the carotids later today. I will review that study and discuss her presentation with Dr. Arredondo, and then contact the patient with final recommendations. As previously, she understands that are only intervention would be sternotomy with multi-vessel revascularization. Due to the magnitude of the procedure, we have been deferring on elective revascularization, and accepting a mild degree of systemic hypertension to achieve adequate global cerebral perfusion. documented in this encounter Plan of Treatment Not on file documented as of this encounter Visit Diagnoses Diagnosis Bilateral carotid artery stenosis- Primary Occlusion and stenosis of carotid artery without mention of cerebral infarction documented in this encounter Care Teams Speech And Drama Teacher Relationship Specialty Start Date End Date Abbe Nails MD [address] [place] [id number] PCP - General 12/05/16 10/13/19 documented as of this encounter
--- OUTSIDE RECORDS SUMMARY | 2024-09-08 08:25 | XMS_ITS | Encounter Summary ---
Author Organization [facility] Address [address] [facility] [address] [place] [address] Care Team Providers Care Environmental Planner Name Role Phone Abbe Nails MD Primary Care Provider [phone] Encounter Details Date Type Department Care Team (Late st Contact Info) Description 08/25/2017 Telephone [facility] [address] [facility] [address] [place] [address] Marco A Antoine MD [address] [facility] [address] [place] [address] Social History Tobacco Use Types Packs/Day Years Used Date Smoking Tobacco: Former Alcohol Use Standard Drinks/Week Comments Yes 0 (1 standard drink = 0.6 oz pur e alcohol) Comments Unknown Sex and Gender Information Value Date Recorded Sex Assigned at Not on file Legal Sex Female 3:40 AM COLD ROLL PACKER SHEET IRON Gender Identity Not on file Sexual Orientation Not on file documented as of this encounter Miscellaneous Notes * Telephone Encounter - Sandy Olvera RN - 08/25/2017 2:44 PM CST Tried to call, Bianca stepped away from her desk, will check with dr Antoine and send clearance for cataract surgery. ROLL PACKER SHEET IRON documented in this encounter Plan of Treatment Not on file documented as of this encounter Visit Diagnoses Not on filedocumented in this encounter Care Teams Environmental Planner Relationship Specialty Start Date End Date Abbe Nails MD [address] [place] [address] PCP - General 12/05/16 10/13/19 documented as of this encounter
--- OUTSIDE RECORDS SUMMARY | 2024-09-08 08:25 | XMS_ITS | Encounter Summary ---
Author Organization [facility] Address [address] [facility] [address] [place] [address] Care Team Providers Care Rodeo Clown Name Role Phone Abbe Nails MD Primary Care Provider [phone] Reason for Visit * Reason Comments Follow-up 2 mo follow up on HT N, syncope, orthostatic hypotension, dyslipidemia Encounter Details Date Type Department Care Team (Late st Contact Info) Description 06/10/2019 1:15 PM CDT Office Visit [facility] [address] [facility] [address] [place] [address] Marco A Antoine MD [address] [place] [address] Orthostatic hypotension (Primary Dx); Labile hypertension; Bilateral carotid artery stenosis; Syncope and collapse; Mitral valve insufficiency, unspecified etiology; History of ischemic left MCA stroke; Dyslipidemia; Dizziness; Aortic valve insufficiency, etiology of cardiac valve disease unspecified Social History Tobacco Use Types Packs/Day Years Used Date Smoking Tobacco: Former Cigarettes Smokeless Tobacco: Never Alcohol Use Standard Drinks/Week Comments Yes 0 (1 standard drink = 0.6 oz pur e alcohol) Comments Unknown Sex and Gender Information Value Date Recorded Sex Assigned at Not on file Legal Sex Female 3:40 AM DEBONING TEAM LEADER Gender Identity Not on file Sexual Orientation Not on file documented as of this encounter Last Filed Vital Signs Vital Sign Reading Time Taken Comments Blood Pressure 168/74 06/10/2019 1:18 PM CDT Pulse 64 06/10/2019 1:18 PM CDT Temperature - - Respiratory Rate - - Oxygen Saturation 98% 06/10/2019 1:18 PM CDT Inhaled Oxygen Concentration - - Weight 90.7 kg (200 lb) 06/10/2019 1:18 PM CDT Height 170.2 cm (5' 7 ) 06/10/2019 1:18 PM CDT Body Mass Index 31.32 06/10/2019 1:18 PM CDT documented in this encounter Progress Notes * Marco A Antoine MD - 06/10/2019 1:15 PM CDT [facility] DATE OF VISIT: 06/10/2019 CHIEF COMPLAINT Chief Complaint Patient presents with ??? Follow-up 2 mo follow up on HTN, syncope, orthostatic hypotension, dyslipidemia HPI Suma Saenz is a 73 y.o. 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 07/04/1604/01 MRI no CVA. 04/02 Cerebral angiogram 04/03 new multiple small foci c/w tiny infarcts. Seeing Vasc at [place]. Passed out after procdure with Dr. [...] 02/18/[address] scan, repeat doppers at [place]. Notes occ vision problems, occ dizziness [...] gets exceptionally tired. Still seeing Vascular at [place] recommended ongoing observation and evaluation. 09/27/18 [...] EMS noted initial HR 40bpm went to [place], no clear issues, CT head negative. SBP>200mmHg,HR [...] with position change/standing or walking (not sitting) MEDICAL HISTORY Past Medical History: Diagnosis Date ??? Ischemic embolic stroke (CMS/HCC) 07/04/2016 Cerebrovascular accident (CVA) due to embolism of cerebral artery Social History Tobacco Use ??? Smoking status: [...] mg capsule senna-docusate (SENNA PLUS) 8.6-50 mg ALLERGIES Allergies Allergen Reactions ??? Naproxen Rash ??? Penicillins Rash ??? Sulfa (Sulfonamide Antibiotics) Rash REVIEW OF SYSTEMS Review of Systems Constitution: Positive for weight loss. Negative for decreased [...] for environmental allergies. PHYSICAL EXAM Vitals BP 168/74 (BP Location: Left arm, Patient Position: Sitting) Pulse 64 Ht 170.2 cm (5' 7 ) Wt 90.7 kg (200 lb) SpO2 98% BMI 31.32 kg/m?? Weight: 90.7 kg (200 lb) Height: 170.2 cm (5' 7 ) Body mass index is 31.32 kg/m??. Physical Exam Constitutional: She is oriented [...] Normal rate, regular rhythm, S1 normal, S2 normal and intact distal pulses. Exam reveals no gallop, no S3, no S4, no distant heart sounds and no friction rub. Murmur heard. High-pitched midsystolic murmur is present with a grade of 3/6. Probable transmitted from brachicephalic stenosis Pulses: Carotid pulses are 1+ on the right side, and 1+ on the left side with bruit. Radial pulses are 1+ on the right side, and 2+ on the left side. Loud RU chest bruit Pulmonary/Chest: Effort normal [...] Judgment normal. LABS AND OTHER DIAGNOSTIC TESTS Hospital Outpatient Visit on 05/23/2019 Component Date Value Ref Range Status ??? Creatinine POC 05/23/2019 0.9 0.6 - 1.1 mg/dL Final Office Visit on 04/05/2019 Component Date Value Ref Range Status ??? Cholesterol, POC 04/05/2019 138 mg/dL Final ??? HDL, POC 04/05/2019 65 mg/dL Final ??? Triglycerides, POC 04/05/2019 133 mg/dL Final ??? LDL, Direct, POC 04/05/2019 46 mg/dL Final ??? Chol/HDL Ratio, POC 04/05/2019 2.1 Final ??? Non-HDL Cholesterol, POC 04/05/2019 73 mg/dL Final ??? Cholesterol Total, POC 04/05/2019 138 mg/dL Final 05/23/2019 CTA Head/Neck: IMPRESSION: ?? [...] MCA bifurcation that results in moderate stenosis. Personally reviewed EKG, Echocardiogram, outside hospital records [facility] 03/2019, and bloodwork/lipids. ASSESSMENT Diagnoses and all orders for this visit: Orthostatic hypotension (Primary) Labile hypertension Bilateral carotid artery stenosis Syncope and collapse Mitral valve insufficiency, unspecified etiology History of ischemic left MCA stroke Dyslipidemia Dizziness Aortic valve insufficiency, etiology of cardiac valve disease unspecified PLAN/RECOMMENDATIONS 1. BP uncontrolled, labile. Monitor BP on routine basis. Call with readings. Continue consistent cardiovascular exercise, weight loss, medication compliance, and low-sodium diet. 2. Avoid excessive hypotension given vertebrobasilar insufficiency and uncontrolled hypertension. Tolerating current medical therapy. -Monitor personally reviewed no recurrent episodes but no concerning tachy or rudolph arrhythmia. 3. Follow-up as scheduled with Dr. Steven at [facility] [place]. 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 See [facility]ascular [facility]. 4. Aggressive atherosclerotic risk reduction given carotid arterial stenosis albeit moderate in severity. Remains on dual antiplatelet therapy, rosuvastatin. 5. Caution with ambulation rise slowly from a seated position to avoid risk for falls and injuries.Notify office with any additional questions or concerns. 6. Lifestyle modification counseling performed. Weight loss, exercise, reduction in caloric intake. 7. Lipids personally reviewed in office 04/05/19 LDL 46, very well controlled. Continue statin therapy and lifestyle modification. 8. Etiology of syncope [...] agreed to comply with plan of care. Over 50% of this visit counseling carotid disease, HTN, lipids, medications, lifestyle modification. Follow up in the office in 2-3 months or sooner as needed. Thank you for allowing me the privilege of participating in the care this very pleasant patient. Please do not hesitate to contact me with any additional questions or concerns. Karlene Antoine MD, FAC documented in this encounter Plan of Treatment Not on file documented as of this encounter Visit Diagnoses Diagnosis Orthostatic hypotension- Primary Labile hypertension Bilateral carotid artery stenosis Occlusion and stenosis of carotid artery without mention of cerebral infarction Syncope and collapse Mitral valve insufficiency, unspecified etiology History of ischemic left MCA stroke Dyslipidemia Other and unspecified hyperlipidemia Dizziness Dizziness and giddiness Aortic valve insufficiency, etiology of cardiac valve disease unspecified documented in this encounter Care Teams Rodeo Clown Relationship Specialty Start Date End Date Abbe Nails MD [address] [address] PCP - General 12/05/16 10/13/19 documented as of this encounter
--- OUTSIDE RECORDS SUMMARY | 2024-09-08 08:25 | XMS_ITS | Encounter Summary ---
Author Organization [facility] Address [address] [facility] [address] [place] [address] Phone Care Team Providers Care Hog Cooler Name Role Phone Abbe Nails MD Primary Care Provider [phone] Reason for Referral * Diagnostic Imaging (Routine) - Closed Specialty Diagnoses / Procedures Referred By Khadijah ricks Referred To Contact Radiology Diagnoses Occlusion and stenosis of bilateral carotid arteries Procedures CTA Head Neck W WO Contrast Zachary Giron MD Phone: tel: fax: [facility] [address] [place] [address] Referral ID Status Reason Start Date Expiration Date Visits Re quested Visits Authorized [id number] Closed 05/02/2019 11/10/2020 1 1 Encounter Details Date Type Department Care Team (Late st Contact Info) Description 05/02/2019 Orders Only [facility] Surgery [address] [facility] 8th [place] [address] [place] [address] Zachary Giron MD [address] [facility] [id number] [place], [place] [id number] Occlusion and stenosis of bilateral carotid arteries (Primary Dx) Social History Tobacco Use Types Packs/Day Years Used Date Smoking Tobacco: Former Cigarettes Smokeless Tobacco: Never Alcohol Use Standard Drinks/Week Comments Yes 0 (1 standard drink = 0.6 oz pur e alcohol) Comments Unknown Sex and Gender Information Value Date Recorded Sex Assigned at Not on file Legal Sex Female 3:40 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 2. ??Persistent focal occlusion of the left V2/V3 segment at the level of C2 with distal reconstitution of the V4 segment. 3. ??Approximately 52% (+/- 10%) stenosis of the right proximal ICA, though evaluation is limited by decreased flow and calcified atherosclerosis. 4. ??Less than 50% left ICA stenosis. 5. ??Unchanged calcified plaque at the left MCA bifurcation that results in moderate stenosis. Dictated by: Isabelle Montiel M.D. The radiology attending physician has personally reviewed this study, and had reviewed and/or edited this written report and agrees with it. Electronically signed by: Davion Garnica M.D. Narrative 05/23/2019 5:42 PM CDT EXAMINATION: Computed tomography angiography (CTA) of the head without and with contrast Computed tomography angiography (CTA) of the neck with contrast HISTORY: 73-year-old woman presenting with bilateral blurred vision. Evaluate for carotid stenosis. TECHNIQUE: Computed tomography of the head was performed without contrast according to standard protocol. Computed tomographic angiography was then obtained from the aortic arch to the vertex following the uneventful administration of intravenous contrast. 3D images were generated on a dedicated workstation. Contrast information: 100 mL Optiray-350 COMPARISON: 02/16/2017. FINDINGS: White matter hypodensities are consistent with chronic small vessel disease. There is no acute intracranial hemorrhage . [...] normal. The visualized airway is widely patent. C5/C6 degenerative disc disease is present. Limited examination of the superior thorax shows no pulmonary infiltrate, suspicious nodules, or pleural effusions. Angiographic findings: There is moderate atherosclerosis of the aortic arch and differential enhancement of the right anterior and posterior circulation compared to the left. ??In particular, the right common carotid, right internal carotid artery, right middle cerebral artery, and right vertebral artery do not enhance as avidly as the left-sided vessels. Previously, differential contrast was present within the vertebral arteries, but not within the carotid arteries. ??This is likely secondary to severe stenosis of the right innominate artery. ??There is highly calcified atherosclerosis predominantly at the origin of the right innominate artery that extends along the right subclavian artery and right common carotid artery resulting in high-grade stenosis. ??However, the degree of stenosis is difficult to assess the given associated streak artifact. ?? There is also largely calcified atherosclerotic disease at the carotid bifurcations; thus, NASCET based estimates of carotid stenosis was performed on the sharp bone kernel images. The narrowest diameter of the proximal left internal carotid artery is 3.4 mm with a cervical ICA 5.0 mm normal diameter, thus resulting in approximately 32% stenosis. ??The narrowest diameter of the right internal carotid artery is 2.1 mm with a 4.4 mm normal diameter, thus resulting in approximately 52% stenosis; the accuracy of stenosis measurement on the right side is reduced due to the decreased enhancement and calcified atherosclerotic disease. There is calcified atherosclerosis at the origin of the right vertebral artery that results in a moderate degree of stenosis. ??The left vertebral artery is distally occluded at the distal left V2 segment and proximal left V3 segment at the level of C2. ??The intracranial left V4 segment is asymmetrically higher in attenuation than the right V4 segment. ??There is also focal irregularity of the left V3 segment as it enters into the left C1 transverse foramen in the reconstituted portion, which could represent a small area of fibromuscular dysplasia or chronic dissection (image 347, series 5). There is calcified atherosclerosis at the left middle cerebral artery bifurcation resulting in moderate stenosis, unchanged. ??There is slight narrowing of the bilateral A2 segments and bilateral posterior cerebral arteries. The basilar artery is normal. There is no aneurysm or vascular malformation identified. Procedure Note Davion Garnica MD - 05/23/2019 EXAMINATION: Computed tomography angiography (CTA) of the head without and with contrast Computed tomography angiography (CTA) of the neck with contrast HISTORY: 73-year-old woman presenting with bilateral blurred vision. Evaluate for carotid stenosis. TECHNIQUE: Computed tomography of the head was performed without contrast according to standard protocol. Computed tomographic angiography was then obtained from the aortic arch to the vertex following the uneventful administration of intravenous contrast. 3D images were generated on a dedicated workstation. Contrast information: 100 mL Optiray-350 COMPARISON: 02/16/2017. FINDINGS: White matter hypodensities are consistent with chronic small vessel disease. There is no acute intracranial hemorrhage . [...] normal. The visualized airway is widely patent. C5/C6 degenerative disc disease is present. Limited examination of the superior thorax shows no pulmonary infiltrate, suspicious nodules, or pleural effusions. Angiographic findings: There is moderate atherosclerosis of the aortic arch and differential enhancement of the right anterior and posterior circulation compared to the left. In particular, the right common carotid, right internal carotid artery, right middle cerebral artery, and right vertebral artery do not enhance as avidly as the left-sided vessels. Previously, differential contrast was present within the vertebral [...] to assess the given associated streak artifact. There is also largely calcified atherosclerotic disease at the carotid bifurcations; thus, NASCET based estimates of carotid stenosis was performed on the sharp bone kernel images. The narrowest diameter of the proximal left internal carotid artery is 3.4 mm with a cervical ICA 5.0 mm normal diameter, thus resulting in approximately 32% stenosis. The narrowest diameter of the right internal carotid artery is 2.1 mm with a 4.4 mm normal diameter, thus resulting in approximately 52% stenosis; the accuracy of stenosis measurement on the right side is reduced due to the decreased enhancement and calcified atherosclerotic disease. There is calcified atherosclerosis at the origin of the right vertebral artery that results in a moderate degree of stenosis. The left vertebral artery is distally occluded at the distal left V2 segment and proximal left V3 segment at the level of C2. The intracranial left V4 segment is asymmetrically higher in attenuation than the right V4 segment. There is also focal irregularity of the left V3 segment as it enters into the left C1 transverse foramen in the reconstituted portion, which could represent a small area of fibromuscular dysplasia or chronic dissection (image 347, series 5). There is calcified atherosclerosis at the left middle cerebral artery bifurcation resulting in moderate stenosis, unchanged. There is slight narrowing of the bilateral A2 segments and bilateral posterior cerebral arteries. The basilar artery is normal. There is no aneurysm or vascular malformation identified. IMPRESSION: 1. 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 2. Persistent focal occlusion of the left V2/V3 segment at the level of C2 with distal reconstitution of the V4 segment. 3. Approximately 52% (+/- 10%) stenosis of the right proximal ICA, though evaluation is limited by decreased flow and calcified atherosclerosis. 4. Less than 50% left ICA stenosis. 5. Unchanged calcified plaque at the left MCA bifurcation that results in moderate stenosis. Dictated by: Isabelle Montiel M.D. The radiology attending physician has personally reviewed this study, and had reviewed and/or edited this written report and agrees with it. Electronically signed by: Davion Garnica M.D. us Zachary Giron MD IMG CT PROCEDURES Final R esult documented in this encounter Visit Diagnoses Diagnosis Occlusion and stenosis of bilateral carotid arteries- Primary Occlusion and stenosis of bilateral carotid arteries documented in this encounter Care Teams Hog Cooler Relationship Specialty Start Date End Date Abbe Nails MD [address] [place] [address] PCP - General 12/05/16 10/13/19 documented as of this encounter
--- OUTSIDE RECORDS SUMMARY | 2024-09-08 08:25 | XMS_ITS | Encounter Summary ---
Author Organization [facility] Address [address] [facility] [address] [place] [address] Care Team Providers Care Mold Filler Plastic Dolls Name Role Phone Abbe Nails MD Primary Care Provider [phone] Reason for Referral * Cardiology (Routine) - Canceled Specialty Diagnoses / Procedures Referred By Contac t Referred To Contact Diagnoses Syncope and collapse Procedures MCT Mobile Cardiac Telemetry Event Monitor Marco A Antoine MD Phone: tel: fax: Referral ID Status Reason Start Date Expiration Date V isits Requested Visits Authorized [id number] Canceled 04/05/2019 10/14/2020 1 1 Reason for Visit * Reason Comments Follow-up 6 mo follow up on HT N, stroke, orthostatic hypotension, dizziness Encounter Details Date Type Department Care Team (Latest Contact Info) Description 04/05/2019 1:00 PM CDT Office Visit [facility] [address] [facility] [address] [place] [address] Marco A Antoine MD [address] [place] [phone] Labile hypertension (Primary Dx); Syncope and collapse; Orthostatic hypotension; Stenosis of brachiocephalic artery (CMS/HCC); Mitral valve insufficiency, unspecified etiology; Dyslipidemia; Bilateral carotid artery stenosis; Aortic valve insufficiency, etiology of cardiac valve disease unspecified Social History Tobacco Use Types Packs/Day Years Used Date Smoking Tobacco: Former Cigarettes Smokeless Tobacco: Never Alcohol Use Standard Drinks/Week Comments Yes 0 (1 standard drink = 0.6 oz pur e alcohol) Comments Unknown Sex and Gender Information Value Date Recorded Sex Assigned at Not on file 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 Gender Identity Not on file Sexual Orientation Not on file documented as of this encounter Last Filed Vital Signs Vital Sign Reading Time Taken Comments Blood Pressure 170/68 04/05/2019 12:49 PM CDT Pulse 61 04/05/2019 12:49 PM CDT Temperature - - Respiratory Rate - - Oxygen Saturation 97% 04/05/2019 12:49 PM CDT Inhaled Oxygen Concentration - - Weight 88.5 kg (195 lb) 04/05/2019 12:49 PM CDT Height 170.2 cm (5' 7 ) 04/05/2019 12:49 PM CDT Body Mass Index 30.54 04/05/2019 12:49 PM CDT documented in this encounter Progress Notes * Marco A Antoine MD - 04/05/2019 1:00 PM CDT [facility] DATE OF VISIT: 04/05/2019 CHIEF COMPLAINT Chief Complaint Patient presents with ??? Follow-up 6 mo follow up on HTN, stroke, orthostatic hypotension, dizziness HPI Suma Saenz is a 73 y.o. [...] foci c/w tiny infarcts. Seeing Vasc at [facility]. Passed out after procdure with Dr. Steven [...] 02/18/[address] scan, repeat doppers at [facility]. Notes occ vision problems, occ dizziness improved [...] gets exceptionally tired. Still seeing Vascular at [facility] recommended ongoing observation and evaluation. 09/27/18 Off [...] EMS noted initial HR 40bpm went to [facility], no clear issues, CT head negative. SBP>200mmHg,HR stable. Still taking Atenolol 50mg daily. HAS felt fine since no recurrence, no issues. No CP, SOB, feels fine. Unchanged chronic intermittent dizziness. MEDICAL HISTORY History reviewed. No pertinent past medical history. Social History Tobacco Use ??? Smoking status: Former Smoker Types: Cigarettes ??? Smokeless tobacco: Never Used Substance Use Topics ??? Alcohol use: Yes ??? Drug use: Not on file Family History Problem Relation [...] for environmental allergies. PHYSICAL EXAM Vitals BP 170/68 (BP Location: Right arm, Patient Position: Sitting) Pulse 61 Ht 170.2 cm (5' 7 ) Wt 88.5 kg (195 lb) SpO2 97% BMI 30.54 kg/m?? Weight: 88.5 kg (195 lb) Height: 170.2 cm (5' 7 ) Body mass index is 30.54 kg/m??. Physical Exam Constitutional: She is oriented [...] of 3/6. Probable transmitted from brachicephalic stenosis Loud RU [...] AND OTHER DIAGNOSTIC TESTS Office Visit on 04/05/2019 Component Date Value Ref Range Status ??? Cholesterol, POC 04/05/2019 138 mg/dL Final ??? HDL, POC 04/05/2019 65 mg/dL Final ??? Triglycerides, POC 04/05/2019 133 mg/dL Final ??? LDL, Direct, POC 04/05/2019 46 mg/dL Final ??? Chol/HDL Ratio, POC 04/05/2019 2.1 Final ??? Non-HDL Cholesterol, POC 04/05/2019 73 mg/dL Final ??? Cholesterol Total, POC 04/05/2019 138 mg/dL Final Personally reviewed EKG, Echocardiogram, outside hospital records [place] 03/2019, and bloodwork/lipids. ASSESSMENT Diagnoses and all orders for this visit: Labile hypertension (Primary) Syncope and collapse Orthostatic hypotension Stenosis of brachiocephalic artery (CMS/HCC) Mitral valve insufficiency, unspecified etiology Dyslipidemia - POCT lipid panel Bilateral carotid artery stenosis Aortic valve insufficiency, etiology of cardiac valve disease unspecified PLAN/RECOMMENDATIONS 1. BP uncontrolled, labile. Monitor BP on routine basis. Call with readings. Continue consistent cardiovascular exercise, weight loss, medication compliance, and low-sodium diet. 2. Avoid excessive hypotension given vertebrobasilar insufficiency and uncontrolled hypertension. Tolerating current medical therapy. 3. Follow-up as scheduled with Dr. Steven at [facility]. 4. Aggressive atherosclerotic risk reduction given carotid [...] however, concerning for bradyarrhythmia -30 day tele monitor. -No driving until advised. Pt and counseled, they verbalized understanding and agreed to comply with plan of care. -Would like to reduce/stop ATenolol, however, BP remains too high to stop antihypertensives at thispoint and caution with excessive BP lowering given orthostasis history. Over 50% of this visit counseling carotid disease, HTN, lipids, medications, lifestyle modification. Follow up in the office in 2 months or sooner as needed. Thank you for allowing me the privilege of participating in the care this very pleasant patient. Please do not hesitate to contact me with any additional questions or concerns. Karlene Antoine MD, [facility] documented in this encounter Plan of Treatment Pending Results Name Type Priority Associated Diagnoses Date /Time MCT Mobile Cardiac Telemetry Event Monitor Cardiac Services Routine Syncope and collapse 04/05/2019 2:26 PM CDT Scheduled Orders Name Type Priority Associated Diagnoses Orde r Schedule MCT Mobile Cardiac Telemetry Event Monitor Cardiac Services Routine Syncope and collapse Expected: 04/05/2019, Expires: 04/05/2020 documented as of this encounter Procedures Procedure Name Priority Date/Time Associated Diagnosis Comments POCT LIPID PANEL Routine 04/05/2019 1:00 PM CDT Dyslipidemia documented in this encounter Results * POCT lipid panel (04/05/2019 1:00 PM CDT) Cholesterol, POC 138 mg/dL HDL, POC 65 mg/dL Triglycerides, POC 133 mg/dL LDL Cholesterol POC 46 mg/dL Chol/HDL Ratio, POC 2.1 Non-HDL Cholesterol, POC 73 mg/dL Cholesterol Total, POC 138 mg/dL Blood specimen (specimen) 04/05/2019 1:00 PM CDT Marco A Antoine MD POINT OF CARE TEST ORDER EDD Final Result documented in this encounter Visit Diagnoses Diagnosis Labile hypertension- Primary Syncope and collapse Orthostatic hypotension 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 Mitral valve insufficiency, unspecified etiology Dyslipidemia Other and unspecified hyperlipidemia Bilateral carotid artery stenosis Occlusion and stenosis of carotid artery without mention of cerebral infarction Aortic valve insufficiency, etiology of cardiac valve disease unspecified documented in this encounter Care Teams Mold Filler Plastic Dolls Relationship Specialty Start Date End Date Abbe Nails MD [address] [place] [address] PCP - General 12/05/16 10/13/19 documented as of this encounter
--- OUTSIDE RECORDS SUMMARY | 2024-09-08 08:25 | XMS_ITS | Encounter Summary ---
Author Organization [facility] Address [address] [place] [address] Care Team Providers Care Loading Machine Operator Helper Name Role Phone Abbe Nails MD Primary Care Provider [phone] Reason for Referral * Diagnostic Imaging (Routine) - Closed Specialty Diagnoses / Procedures Referred By Burtonac t Referred To Contact Radiology Diagnoses Occlusion and stenosis of bilateral carotid arteries Procedures CTA Head Neck W WO Contrast Zachary Giron MD Phone: tel: fax: [address] [address] Referral ID Status Reason Start Date Expiration Date Visits Re quested Visits Authorized [id number] Closed 05/02/2019 11/10/2020 1 1 Reason for Visit * Diagnostic Imaging (Routine) - Closed Specialty Diagnoses / Procedures Referred By Conttj t Referred To Contact Radiology Diagnoses Occlusion and stenosis of bilateral carotid arteries Procedures CTA Head Neck W WO Contrast Zachary Giron MD Phone: tel: fax: [address] [address] Referral ID Status Reason Start Date Expiration Date Visits Re quested Visits Authorized [id number] Closed 05/02/2019 11/10/2020 1 1 Encounter Details Date Type Department Care Team (Latest Contact Info) Description 05/23/2019 11:47 AM CDT - 05/23/2019 11:59 PM CDT Hospital Encounter [facility] [address] [place] [address] Zachary Giron MD [id number] [place] [address] Occlusion and stenosis of bilateral carotid arteries Discharge Disposition: Discharge to home or self care Social History Tobacco Use Types Packs/Day Years Used Date Smoking Tobacco: Former Cigarettes Smokeless Tobacco: Never Alcohol Use Standard Drinks/Week Comments Yes 0 (1 standard drink = 0.6 oz pur e alcohol) Comments Unknown Sex and Gender Information Value Date Recorded Sex Assigned at Not on file 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 10/12/2019 biotin-keratin (BIOTIN PLUS KERATIN) 10,000-100 mcg-mg tablet 0 0 11/03/2016 10/18/2019 clopidogrel (PLAVIX) 75 mg tablet take 1 tablet by oral route every day 0 0 02/26/2015 10/27/2019 diphenhydrAMINE-a cetaminophen (TYLENOL PM EXTRA STRENGTH) 25-500 mg tablet take 2 tablet by oral route every day at bedtime 0 0 02/26/2015 10/18/2019 doxycycline (ADOXA) 50 mg tablet Take 50 mg by mouth 2 (two) times a day. 08/14/2021 hydroCHLOROthiazi de (HYDRODIURIL) 25 mg tablet Take 1 tablet (25 mg total) by mouth daily. 90 tablet 3 10/05/2018 07/01/2019 ramipril (ALTACE) 10 mg capsule take 1 capsule by oral route every day 0 0 02/26/2015 10/12/2019 salmon oil-omega-3 fatty acids (SALMON OIL-1000) 1,000-200 mg capsule 0 0 11/03/2016 10/18/2019 senna-docusate (SENNA PLUS) 8.6-50 mg take 2 tablet by oral route every day 0 0 11/03/2016 10/27/2019 documented as of this encounter Discharge Disposition Disposition Code Departure Means Destination Discharge to home or self care documented in this encounter Plan of Treatment Not on file documented as of this encounter Procedures Procedure Name Priority Date/Time Associated Diagnosis Comments CTA HEAD NECK W WO CONTRAST Schedule Routine, Read Routine (OP Routine) 05/23/2019 1:05 PM CDT Occlusion and stenosis of bilateral carotid arteries POCT CREATININE - DEVICE Routine 05/23/2019 12:17 PM CDT documented in this encounter Results [...] it. Electronically signed by: Davion Garnica M.D. Zachary Giron MD IMG CT PROCEDURES Final R esult * POCT creatinine (05/23/2019 12:17 PM CDT) Creatinine POC 0.9 0.6 - 1.1 mg/dL [facility] Blood specimen (specimen) 05/23/2019 12:17 PM CDT 05/23/2019 12:17 PM CDT Zachary Giron MD LAB POCT ORDERABLES - DEV ICE Final Result [facility] [address] [place] [address] documented in this encounter Visit Diagnoses Diagnosis Occlusion and stenosis of bilateral carotid arteries documented in this encounter Administered Medications Inactive Administered Medications - up to 3 most recent administrations Medication Order MAR Action Action Date Dose Rate Site ioversol (OPTIRAY 350) syringe syringe 100 mL 100 mL, intravenous, Once in imaging, contrast, Starting on 05/23/19 at 1305, For 1 dose Given 05/23/2019 1:06 PM CDT 100 mL documented in this encounter Orders Medications Ordered That Chris ht Not Have Been Administered Count Last Ordered Date First Ordered Date ioversol (OPTIRAY 350) syrin ge syringe 100 mL 1 05/23/2019 documented in this encounter Care Teams Loading Machine Operator Helper Relationship Specialty Start Date End Date Abbe Nails MD [address] [place] [address] PCP - General 12/05/16 10/13/19 documented as of this encounter
--- OUTSIDE RECORDS SUMMARY | 2024-09-08 08:25 | XMS_ITS | Encounter Summary ---
Author Organization [facility] Address [address] [place] [address] Care Team Providers Care Jute Bag Sewer Name Role Phone Abbe Nails MD Primary Care Provider [phone] Encounter Details Date Type Department Care Team (Late st Contact Info) Description 04/26/2019 Telephone [facility] [address] [facility] [address], [place] [address] Marco A Antoine MD [address] [facility] [address] [place] [address] Social History Tobacco Use Types Packs/Day Years Used Date Smoking Tobacco: Former Cigarettes Smokeless Tobacco: Never Alcohol Use Standard Drinks/Week Comments Yes 0 (1 standard drink = 0.6 oz pur e alcohol) Comments Unknown Sex and Gender Information Value Date Recorded Sex Assigned at Not on file 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 * Telephone Encounter - Lin Kern - 04/26/2019 10:29 AM CDT Pt states she cannot place the event monitor back onto her chest, pt wants to come in office for assistance. cb [phone] documented in this encounter Plan of Treatment Not on file documented as of this encounter Visit Diagnoses Not on filedocumented in this encounter Care Teams Jute Bag Sewer Relationship Specialty Start Date End Date Abbe Nails MD [address] [place] [address] PCP - General 12/05/16 10/13/19 documented as of this encounter
--- OUTSIDE RECORDS SUMMARY | 2024-09-08 08:25 | XMS_ITS | Encounter Summary ---
Author Organization [facility] Care Team Providers Care Production Operations Manager Name Role Phone Abbe Nails MD Primary Care Provider [phone] Encounter Details Date Type Department Care Team (Latest Contact Info) Description 06/10/2019 Travel Social History Tobacco Use Types Packs/Day Years Used Date Smoking Tobacco: Former Cigarettes Smokeless Tobacco: Never Alcohol Use Standard Drinks/Week Comments Yes 0 (1 standard drink = 0.6 oz pur e alcohol) Comments Unknown Sex and Gender Information Value Date Recorded Sex Assigned at Not on file Legal 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
--- OUTSIDE RECORDS SUMMARY | 2024-09-08 08:25 | XMS_ITS | Encounter Summary ---
Author Organization [facility] Healthcare Address [address] [place] [address] Care Team Providers Care Car Porter Name Role Phone Abbe Chu MD Primary Care Provider [phone] Zachary Giron MD Unavailable Reason for Visit * Reason Comments Dizziness Encounter Details Date Type Department Care Team (Latest Contact Info) Description 10/10/2019 9:41 PM FACILITY MAINTENANCE WORKER - 10/12/2019 10:56 AM [facility] Encounter [facility] [address] [place] [address] Zachary Giron MD [address] [facility] [id number] [place] [address] Alton Hernandez MD [address] [place] [address] [place] [id number] [place] [address] Dizziness (Primary Dx) Discharge Disposition: Discharge to home or self care Social History Tobacco Use Types Packs/Day Years Used Date Smoking Tobacco: Former Cigarettes Smokeless Tobacco: Never Alcohol Use Standard Drinks/Week Comments Yes 0 (1 standard drink = 0.6 oz pur e alcohol) Comments Unknown Sex and Gender Information Value Date Recorded Sex Assigned at Not on file Legal Sex Female 3:40 AM FACILITY MAINTENANCE WORKER Gender Identity Not on file Sexual Orientation Not on file documented as of this encounter Last Filed Vital Signs Vital Sign Reading Time Taken Comments Blood Pressure 154/48 10/12/2019 10:00 AM FACILITY MAINTENANCE WORKER Pulse 60 10/12/2019 10:00 AM FACILITY MAINTENANCE WORKER Temperature 37.2 ??C (99 ??F) 10/12/2019 7:43 AM FACILITY MAINTENANCE WORKER Respiratory Rate 16 10/12/2019 7:43 AM FACILITY MAINTENANCE WORKER Oxygen Saturation 95% 10/12/2019 7:43 AM FACILITY MAINTENANCE WORKER Inhaled Oxygen Concentration - - Weight 88.2 kg (194 lb 8 oz) 10/11/2019 6:44 AM FACILITY MAINTENANCE WORKER Height 170.2 cm (5' 7 ) 10/10/2019 5:56 PM FACILITY MAINTENANCE WORKER Body Mass Index 30.46 10/10/2019 5:56 PM FACILITY MAINTENANCE WORKER documented in this encounter Discharge Diagnoses Diagnosis Occlusion and stenosis of bilateral carotid arteries - OCCLUSION AND STENOSIS OF BILATERAL CAROTID ARTERIES Carpal tunnel syndrome, bilateral upper limbs - CARPAL TUNNEL SYNDROME, BILATERAL UPPER LIMBS Essential (primary) hypertension - ESSENTIAL (PRIMARY) HYPERTENSION Unspecified essential hypertension Unspecified atherosclerosis of [place] arteries of extremities, other extremity (HCC) - UNSPECIFIED ATHEROSCLEROSIS OF [place] ARTERIES OF EXTREMITIES, OTHER EXTREMITY long term care pharmacist (current) use of aspirin - BEET FLUMER (CURRENT) USE OF ASPIRIN Personal history of transient ischemic attack (TIA), and cerebral infarction without residual deficits - PERSONAL HISTORY OF TRANSIENT ISCHEMIC ATTACK (TIA), AND CEREBRAL INFARCTION WITHOUT RESIDUAL DEFICI Occlusion and stenosis of left vertebral artery - OCCLUSION AND STENOSIS OF LEFT VERTEBRAL ARTERY Orthostatic hypotension - ORTHOSTATIC HYPOTENSION Other intervertebral disc degeneration, lumbosacral region - OTHER INTERVERTEBRAL DISC DEGENERATION, LUMBOSACRAL REGION Other usp (current) drug therapy - OTHER [facility] (CURRENT) DRUG THERAPY Personal history of nicotine dependence - PERSONAL HISTORY OF NICOTINE DEPENDENCE Atherosclerosis of other arteries - ATHEROSCLEROSIS OF OTHER ARTERIES documented in this encounter Discharge Summaries * Cassidy Anglin NP - 10/11/2019 2:11 PM CST Inpatient Discharge Summary BRIEF OVERVIEW Admitting Provider: Alton Marc MD Discharge Provider: Zachary Giron MD Primary Care Physician at Discharge: Abbe Chu MD [phone] Admission Date: 10/10/2019 Discharge Date: 10/12/2019 Admission Location: [facility] Primary Discharge Diagnosis: Syncopal episodes Secondary Discharge Diagnosis: Dizziness Benign hypertension DETAILS OF HOSPITAL STAY Presenting Problem/History of Present Illness: Patient is a 73 y.o. 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 Patient states that she had episode of presyncope today that occurred after lunch. She states that she started to feel lightheaded and dizzy, and then had to lay down on the for for an extended period of time in order to recover. Patient states that she started to feel better when she [place], but her said she was on the ground for approximately 45 minutes before she could get up again. 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 The last episode prior to these that occurred with back in February. Along with these episodes, patient endorses associated nausea. She states she also can become very diaphoretic. In addition to these more severe episodes, patient also endorses having multiple daily episodes of mild vertigo, which she states usual ly only last a few minutes, and can be relieved by momentarily putting her head down. ?? Patient has been previously followed by Dr. Giron for her innominate occlusion carotid/vertebralstenoses, and operative intervention was previously discussed. Dr. Giron recently had a telephone conversation with the patient last week, prior to these 2 new recent episodes of severe presyncope. Patient states that she wanted to seek medical attention given the new incidents of this condition, but she states that she would be hesitant to pursue surgery at this moment given that her will soon be embarking on multiple rounds of chemotherapy. Hospital Course: Admitted to Vascular Surgery from the ER for evaluation of prolonged and frequent syncopal episodes. CTA obtained that showed stable severe right innominate artery stenosis, unchanged focal occlusionof the left V2/V3 segments with distal reconstitution with focal irregularity and dilation of the left V3 segment as it enters into the left C1 transverse foramen, which could represent area of fibromuscular dysplasia or dissection, stable stenosis of the proximal right and left internal carotid arteries. Reviewed by Dr Giron. Recommended surgical intervention but she again was hesitant as kelly is about to start radiation therapy. Neurology consulted for evaluation of syncopal episodes and recommended outpatient follow up with Dr Rosas in the Neuromuscular clinic with outpatient EMG/NCS for autonomic testing. The referral was placed prior to discharge. Serum immunofixation lab (Immunotyping) pending at discharge. Cardiac Surgery consulted for further evaluation and workup prior to procedure, recommended a left heart cath given her severe peripheral atherosclerosis, dyspnea on exertion, for the face the will require a mini vs full sternotomy, OK for outpatient evaluation. Allowed for permissive hypertension given significant innominate artery stenosis. Continued on half dose atenolol and held HCTZ and ramipril at discharge. She was given half dose of her home atenolol and her blood pressure when from 190-150s with one dose 3 hours after administration. Instructed to montor closely at home and call Dr Giron/pcp with questions. Active Issues Requiring Follow-up: [facility] to be scheduled as an outpatient prior to surgery BP medication regimen to allow for permissive hypertension (SBP 140-180s). Test Results Pending at Discharge: Order Current Status Immunotyping, serum In process Immunotyping lab pending at discharge, to be followed by Neurology Operative Procedures Performed: Na Other Procedures: na Pertinent Test Results: na Discharge Details Physical Exam at Discharge: Discharge Condition: good Pulse: 60 Resp: 16 BP: 154/48 Temp: 37.2 ??C (99 ??F) Weight: 88.2 kg (194 lb 8 oz) Pertinent Exam Findings at Discharge: General: appears stated age and cooperative Neuro: Alert and oriented x4, non-focal Cardiac: regular rate and rhythm Lungs: Equal, unlabored respirations, no distress Abdomen: soft, rounded Musculoskeletal: Warm, well perfused, palpable R radial Discharge Disposition: Code Status at Discharge: full Discharge Instructions: Activity Instructions Discharge Activity: Driving restrictions -Do not drive if you are feeling lightheaded or dizzy Discharge Activity: Elevate legs -Keep your legs elevated while sitting. Prop your legs on 1-2 pillows while in bed to reduce swelling. Discharge Activity: Walking -You may walk as tolerated and climb stairs. Diet Instructions Adult Discharge Diet Diet Type: Return to previous diet Other Instructions Call provider for: Worsening or more frequent dizzy spells, chest pain, shortness of breath Call provider for: Signs [...] -You are having difficulty talking and/or swallowing Special Instructions Check your BP at home, Dr Giron prefers your systolic blood pressure (top number) to be between 140-180. If your blood pressure is consistently greater than 185-190s, please call your primary carephysician or Dr Giron for direction. Your PCP should help you adjust your blood pressure medications after discharge as well. Call with questions. Discharge Medications: Current Medications Some of the medications listed here do not show instructions, such as how often to take the medication. Ask your doctor or nurse how to use these medications. Specifically ask about these and similar medications: salmon oil-omega-3 fatty acids (SALMON OIL-1000) 1,000-200 mg capsule biotin-keratin (BIOTIN PLUS KERATIN) 10,000-100 mcg-mg tablet TAKE these medications aspirin 325 mg tablet take 1 tablet by oral route every day atenoloL 50 mg tablet Commonly known as: TENORMIN Take 1 tablet (50 mg total) by mouth daily atorvastatin 80 mg tablet Commonly known as: LIPITOR take 1 tablet by oral route every day Biotin Plus Keratin 10,000-100 mcg-mg tablet Generic drug: biotin-keratin buPROPion XL 150 mg 24 hr tablet Commonly known as: WELLBUTRIN XL take 1 tablet by oral route 2 times every day doxycycline monohydrate 50 mg tablet Commonly known as: ADOXA Take 50 mg by mouth 2 (two) times a day. montelukast 10 mg tablet Commonly known as: SINGULAIR take 1 tablet by oral route every day in the evening Plavix 75 mg tablet Generic drug: clopidogreL take 1 tablet by oral route every day [place] Oil-1000 1,000-200 mg capsule Generic drug: salmon oil-omega-3 fatty acids Senna Plus 8.6-50 mg Generic drug: senna-docusate take 2 tablet by oral route every day Tylenol PM Extra Strength 25-500 mg tablet Generic drug: diphenhydrAMINE-acetaminophen take 2 tablet by oral route every day at bedtime ZyrTEC 10 mg tablet Generic drug: cetirizine take 1 tablet by oral route every day Outpatient Follow-Up: Future Appointments Date Time Provider Department Center 10/14/2019 11:30 AM Cedric Torres MD [address] Contact Information for Follow-ups Abbe Chu MD Specialty: Family Medicine [address] [place] [address] Next Steps: Follow up Abbe Chu MD Specialty: Family Medicine [facility] [address] [address] Next Steps: Follow up Comments: Please follow up with your Primary Care Provider shortly after discharge Questions: To provider: ABBE CHU Process Instructions: The follow up with provider order should be used to give patients instructions to follow up with an established provider. A referral order should be placed to instruct patients to follow up with a new, non- established provider. If you can???t find the provider, please use: MISCELLANEOUS, NOTINFILE and put the name in the comments. Zachary Giron MD Specialty: Vascular Surgery, General Surgery Relationship: Surgeon Nyasia Morris EVERARDONANCY MCCLELLAN [address] [place] [id number] Next Steps: Follow up Instructions: Dr Giron's office will contact you in the next few days to discuss the next surgical steps. Call [phone] with questions/concerns Questions: Instructions for follow-up (appointment date and time): Dr Giron's office will contact you in the next few days to discuss the next surgical steps. Call [phone] with questions/concerns To provider: ZACHARY GIRON Process Instructions: The follow up with provider order should be used to give patients instructions to follow up with an established provider. A referral order should be placed to instruct patients to follow up with a new, non- established provider. If you can???t find the provider, please use: MISCELLANEOUS, NOTINFILE and put the name in the comments. Cosigned by Zachary Giron MD at 10/12/2019 1:11 PM FACILITY MAINTENANCE WORKER LITY MAINTENANCE WORKER LITY MAINTENANCE WORKER documented in this encounter Discharge Instructions * Appointments* Nilda Sanchez RN - 10/11/2019 3:43 PM FACILITY MAINTENANCE WORKER This is the earliest appointment with your PCP, Please bring discharge paperwork with list of medicines, insurance card and photo ID to appointment. Please arrive at least 15 minutes early prior to appointment. If you are unable to keep this appointment, it is very important you call to reschedule. LITY MAINTENANCE WORKER documented in this encounter Medications at Time [...] day in the evening 0 0 11/03/2016 atenoloL (TENORMIN) 50 mg tablet Take 1 tablet (50 mg total) by mouth daily 30 tablet 10/12/2019 10/27/2019 biotin-keratin (BIOTIN PLUS KERATIN) 10,000-100 mcg-mg tablet [...] mouth 2 (two) times a day. 08/14/2021 doxycycline hyclate (VIBRAMYCIN) 50 mg capsule 10/05/2019 10/18/2019 salmon oil-omega-3 fatty acids (SALMON OIL-1000) 1,000-200 mg capsule 0 0 11/03/2016 10/18/2019 senna-docusate (SENNA PLUS) 8.6-50 mg take 2 tablet by oral route every day 0 0 11/03/2016 10/27/2019 documented as of this encounter Ordered Prescriptions Prescription Sig Dispense Quantity Refills Last Filled Start Date End Date atenoloL (TENORMIN) 50 mg tablet Take 1 tablet (50 mg total) by mouth daily 30 tablet 10/12/2019 0 atenoloL (TENORMIN) 50 mg tablet Take 1 tablet (50 mg total) by mouth daily 30 tablet 10/12/2019 0 ramipril (ALTACE) 10 mg capsule Take 1 capsule (10 mg total) by mouth daily Resume if SBP consistently greater than 180-190. 0 10/12/2019 0 documented in this encounter Discharge Disposition Disposition Code Departure Means Destination Discharge to home or self care documented in this encounter Progress Notes * Nilda Sanchez RN - 10/12/2019 8:40 AM CST 10/11/19 1128 Discharge Summary Chart reviewed For Medical Necessity [...] appointment made. Nurse to instructon d/c orders. LITY MAINTENANCE WORKER * Nilda Sanchez RN - 10/11/2019 11:28 AM CST 10/11/19 1127 Information Information Obtained From Patient Prior to Admission Primary Caregiver Self Support System Spouse/Significant Other Support system contact info (name, phone, availablity) Juice [phone] Home Care Services No Durable Medical Equipment Walker (wheeled);Cane (single prong) Living Arrangements Spouse/significant other Type of Residence Private residence Steps in home? Yes, Outside of home Number of steps outside: 2 steps Financial Resource Income Long-Term/Pension Potential Discharge Needs Anticipated discharge level of care Private residence Pt/Family agrees with Anticipated Level of Care Yes Patient expects to be discharged to: Private residence Plan of care: Patient admitted s/p syncope Additional Information: Address and patient phone number verified with patient face sheet. Insurance verified: [facility] secure horizons Admission source: [facility]acy verified: [facility] PCP verified: Dr. Acevedo Transportation: Juice Problem:Patient to return to safe home environment with family/friends for home support and transportation. Through the course of our work I determined that Juice possesses the skill and ability to provide and monitor the care of the patient when he or she returns home. Juice has the capacity [...] are in agreement with the aftercare plan. Goal: CM to follow for planning and referrals as needed. [phone]. LITY MAINTENANCE WORKER * Cassidy Anglin NP - 10/11/2019 11:27 AM CST Vascular Surgery Daily Progress Patient Name/MRN: Suma Saenz [id number] Treatment Team: Vascular Surgery- Pager: [phone] Attending: Zachary Giron MD Today's Date: 10/11/2019 Room/Bed: [id number] Admit Date: 10/10/2019 Code Status: Full Code Subjective Chief complaint: dizziness/syncopal episodes Events During This Hospitalization: Admitted to Vascular Surgery from the ER - CTA head and neck completed - Neurology consulted - Cardiac Surgery consulted for further workup Events Over Last 24 Hours: See above Allergies Allergen Reactions ??? Naproxen Rash ??? Nsaids (Non-Steroidal Anti-Inflammatory Drug) Hives ??? Penicillins Rash ??? Sulfa (Sulfonamide Antibiotics) Rash Current Facility-Administered Medications Medication Dose Route Frequency Provider Last Rate Last Dose ??? acetaminophen (TYLENOL) tablet 1,000 mg 1,000 mg oral Q6H PRN Cassidy Bhatti MD PhD ??? aspirin tablet 325 mg 325 mg oral Daily Cassidy Bhatti MD PhD 325 mg at 10/11/19930 ??? atenoloL (TENORMIN) tablet 100 mg 100 mg oral Daily Cassidy Bhatti MD PhD 100 mg at 10/11/19931 ??? atorvastatin (LIPITOR) tablet 80 mg 80 mg oral Daily Cassidy Bhatti MD PhD 80 mg at 10/11/19930 ??? buPROPion XL (WELLBUTRIN XL) 24 hour tablet 150 mg 150 mg oral Daily Cassidy Bhatti [facility] 150 mg at 10/11/19930 ??? cetirizine (ZyrTEC) tablet 10 mg 10 mg oral Daily Cassidy Bhatti MD PhD 10 mg at 10/11/19930 ??? clopidogreL (PLAVIX) tablet 75 mg 75 mg oral Daily Cassidy Bhatti MD PhD 75 mg at 10/11/19930 ??? doxycycline monohydrate (ADOXA) tablet 50 mg 50 mg oral BID Cassidy Bhatti MD PhD 50 mg at 10/11/19931 ??? heparin 5,000 unit/mL injection 5,000 Units 5,000 Units subcutaneous Q8H REPLACED BY [facility] Cassidy Bhatti MD PhD ??? montelukast (SINGULAIR) tablet 10 mg 10 mg oral Nightly Cassidy Bhatti MD PhD ??? sodium chloride 0.9% flush 0.5-20 mL 0.5-20 mL intra-catheter Q8H REPLACED BY [facility] Cassidy Bhatti MD PhD ??? sodium chloride 0.9% flush 0.5-20 mL 0.5-20 mL intra-catheter PRN Cassidy Bhatti MD PhD ??? sodium chloride 0.9% infusion 75 mL/hr intravenous Continuous Cassidy Anglin NP 75 mL/hr at 10/11/19 0940 75 mL/hr at 10/11/19 0940 Objective Vitals: 24hr Min/Max: Temp Min: 36.5 ??C (97.7 ??F) Max: 36.9 ??C (98.4 ??F) Pulse Min: 52 Max: 69 BP Min: 128/54 Max: 214/51 Resp Min: 13 Max: 26 SpO2 Min: 92 % Max: 98 % Most Recent : Vitals: 10/11/19 1044 BP: Pulse: 52 Resp: 15 Temp: SpO2: No intake/output data recorded. No intake/output data recorded. Physical Exam: General: appears stated age and cooperative Neuro: Alert and oriented x4, non-focal Cardiac: regular rate and rhythm Lungs: Equal, unlabored respirations, no distress Abdomen: soft, rounded Musculoskeletal: Warm, well perfused, palpable R radial Lab/Radiology/Diagnostic Review: Laboratory review: Lab results in the last 12 hours: No results found for this or any previous visit (from the past 12 hour(s)). Assessment/Plan Active Problems: Dizziness Benign hypertension Dizziness - CTA head and neck with arch imaging completed, results to be followed by Vascular team - Neurology consult, saw Dr Arredondo as an outpatient. Consulted to rule out source of dizziness/presyncope - BP control with home medications - Fall precautions - Telemery Benign hypertension - Continue current regimen with atenolol - SBP 100-160 Stable severe right innominate artery stenosis - OR planning with Dr Giron and Dr Lara - Cardiac surgery to weight in for any further intervention/workup needed prior to surgery Cosigned by Zachary Giron MD at 10/11/2019 4:04 PM FACILITY MAINTENANCE WORKER LITY MAINTENANCE WORKER LITY MAINTENANCE WORKER Associated attestation - Zachary Giron MD - 10/11/2019 4:04 PM FACILITY MAINTENANCE WORKER I have seen and examined the patient on 10/11/19. I agree with the findings and plan of care with the following modifications:Please see my extensive separate note from today.. documented in this encounter Consult Notes * Adrien Simpson MD - 10/11/2019 5:28 PM CSTAssociated Order(s): IP CONSULT TO CARDIAC SURGERY Cardiothoracic Surgery Consult Suma Saenz 1945 Reason for Consult: Preoperative Innominate Bypass Physician Referring: Bree Chief Complaint: Chief Complaint Patient presents with ??? Dizziness HPI: Suma Saenz is 73 y.o. 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 She was admitted to vascular surgery and seen by neurology. It was decided that she needs to undergo an innominate artery bypass and Dr. Giron discussed the case with Dr. Lara who agreed to help with access (mini-sternotomy vs sternotomy). The patient reports that she is feeling well and going to go home tomorrow. He is undergoing radiation treatment for prostate cancer and she is eager to get back home to help him. She denies any chest pain. She does endorse dyspnea on exertion with activity. She reports she can only climb one flight of stairs (from basement to main level) without getting shortness of breath. She also endorses smoking a pack or a pack and a half of cigarettes per day for >25 years, but has since quit. She does have a family history of CAD including an [place] in her grandmother in her 40s and an uncle in her 40s. She has never had chest pain,but she says she never exerts herself. Three are no other complaints. HOME MEDICATIONS : aspirin 325 mg tablet [...] mg capsule senna-docusate (SENNA PLUS) 8.6-50 mg Current Facility-Administered Medications: ??? acetaminophen (TYLENOL) tablet 1,000 mg, 1,000 mg, oral, Q6H PRN ??? aspirin tablet 325 mg, 325 mg, oral, Daily, 325 mg at 10/11/19930 ??? [START ON 10/12/2019] atenoloL (TENORMIN) tablet 50 mg, 50 mg, oral, Daily ??? atorvastatin (LIPITOR) tablet 80 mg, 80 mg, oral, Daily, 80 mg at 10/11/19930 ??? buPROPion XL (WELLBUTRIN XL) 24 hour tablet 150 mg, 150 mg, oral, Daily, 150 mg at 10/11/19930 ??? cetirizine (ZyrTEC) tablet 10 mg, 10 mg, oral, Daily, 10 mg at 10/11/19930 ??? clopidogreL (PLAVIX) tablet 75 mg, 75 mg, oral, Daily, 75 mg at 10/11/19930 ??? doxycycline monohydrate (ADOXA) tablet 50 mg, 50 mg, oral, BID, 50 mg at 10/11/19 0932 ??? heparin 5,000 unit/mL injection 5,000 Units, 5,000 Units, subcutaneous, Q8H REID, 5,000 Units at10/11/19 1425 ??? montelukast (SINGULAIR) tablet 10 mg, 10 mg, oral, Nightly ??? sodium chloride 0.9% flush 0.5-20 mL, 0.5-20 mL, intra-catheter, Q8H REID ??? sodium chloride 0.9% flush 0.5-20 mL, 0.5-20 mL, intra-catheter, PRN ??? sodium chloride 0.9% infusion, 75 mL/hr, intravenous, Continuous, Last Rate: 75 mL/hr at 10/11/19 1345, 75 mL/hr at 10/11/19 1345 Allergies Allergen Reactions ??? Naproxen Rash ??? Nsaids (Non-Steroidal Anti-Inflammatory Drug) Hives ??? Penicillins Rash ??? Sulfa (Sulfonamide Antibiotics) Rash Past Medical History: Diagnosis Date ??? Degenerative disc disease at L5-S1 level ??? Ischemic embolic stroke (CMS/HCC) 07/04/2016 Cerebrovascular accident (CVA) due to embolism of cerebral artery History reviewed. No pertinent surgical history. Family History Problem Relation Age of Onset [...] file Gets together: Not on file Attends amish service: Not on file Active member of [...] (Added by TW Conv) Review of Systems - Review of Systems negative except those described in HPI and below: Review of Systems All other systems reviewed and are negative. Vital Signs: Vitals: 10/11/19 1559 BP: (!) 173/43 Pulse: 57 Resp: 20 Temp: 36.7 ??C (98.1 ??F) SpO2: 96% Cardiac Rhythm: Sinus bradycardia (10/10/19 2223) Body surface area is 2.04 meters squared. No intake/output data recorded. Physical Exam Constitutional: Appearance: Normal appearance. HENT: Head: Normocephalic and atraumatic. Mouth/Throat: Mouth: Mucous membranes are moist. Pharynx: Oropharynx is clear. Eyes: Extraocular Movements: Extraocular movements intact. Pupils: Pupils are equal, round, and reactive to light. Neck: Musculoskeletal: Normal range of motion and neck supple. Cardiovascular: Rate and Rhythm: Normal rate and regular rhythm. Pulses: Normal pulses. Heart sounds: No murmur. Pulmonary: Effort: Pulmonary effort is normal. Breath sounds: Normal breath sounds. Abdominal: General: There is no distension. Tenderness: There is no tenderness. Musculoskeletal: General: No swelling or tenderness. Skin: General: Skin is warm and dry. Neurological: General: No focal deficit present. Mental Status: She is alert and oriented to person, place, and time. Psychiatric: Mood and Affect: Mood normal. Behavior: Behavior normal. Labs: Reviewed. Recent Labs Lab Units 10/10/19 2218 WBC K/cumm 7.1 HEMOGLOBIN g/dL 14.0 HEMATOCRIT % 41.2 PLATELETS K/cumm 251 Recent Labs Lab Units 10/10/19 2218 SODIUM mmol/L 139 POTASSIUM PLASMA mmol/L 4.1 CHLORIDE mmol/L 104 CO2 mmol/L 22 ANIONGAP mmol/L 13 GLUCOSE mg/dL 97 BUN SERUM mg/dL 25 CREATININE mg/dL 0.87 CALCIUM mg/dL 9.8 Imagin/4 CTA of the head and neck - images reviewed by me - severe innominate stenosis, mild-moderate arch athersclerosis Assessment and Plan: Suma Saenz is 73F w/ severe, symptomatic innominate artery stenosis Plan: Agree with need for innominate bypass, Dr. Lara will be available to assist when scheduled. She likely needs a left heart cath given her severe peripheral atherosclerosis, dyspnea on exertion, and wewill be doing a mini vs full sternotomy. This can be done as an outpatient on an elective basis prior to surgery. Plan discussed with Dr. Lerma since Dr. Lara is currently out of town. Adrien Simpson MD Fellow, Cardiothoracic Surgery [facility] Cosigned by Azar Lara MD at 10/17/2019 7:08 AM FACILITY MAINTENANCE WORKER LITY MAINTENANCE WORKER LITY MAINTENANCE WORKER * Self, Yesica Rangel MD - 10/11/2019 10:28 AM CSTAssociated Order(s): IP CONSULT TO NEUROLOGY Neurology Consult Note Requesting Provider: Zachary Giron MD, Vascular Reason for Consult: recurrent syncope/dizziness, followed by Dr Arredondo NAME: Suma Saenz : 1945 CC: Chief Complaint Patient presents with ??? Dizziness SUBJECTIVE HPI: Suma Saenz is a 73 y.o. female with PMHx of L MCA CVA, bilateral carotid artery stenosis, L vertebral artery occlusion, and innominate artery stenosis, and HTN who neurology is seeing in consultation for recurrent syncope/dizziness. The patient has a three year long history of episodic lightheadedness and dizziness with occasionalsyncopal episodes. She initially presented with syncope and L facial droop accompanied by nausea and diaphoresis, with CTA at the time showing focal occlusion of the L vert at C2 but with distal reconstitution. Neurology was consulted during that admission and felt her symptoms were possible related to vertebrobasilar insufficiency, recommended optimal medical management. During that admission she underwent cerebral angiogram (04/02/16) that showed heavily calcified atherosclerotic plaque of theinnominate artery, left common carotid artery, and right subclavian artery origin with mild slowing of blood flow in right subclavian relative to L subclavian. The angiogram was complicated by an embolic event to the left MCA bifurcation, and repeat brain/brainstem MR (04/03/16) showed multiple tinynew foci of diffusion restriction in left and right cerebral hemisphere as well as bilateral cerebel lar hemispheres consistent with acute likely embolic infarcts. She has since remained on DAPT and high intensity statin therapy and has been following with both Dr. Landry in Vascular Surgery and Dr. Arreodndo in Neurology clinic. She had another episode of syncope with visual changes in mid-March that was subsequently followed up with CTA head/neck (05/2019) that showed severe R innominate stenosis resulting in differential decreased flow in the R carotid and intracranial circulation (new from previous exam), persistent focal occlusion of L V2/V3 segment at level C2 with distal reconstituation, 62% stenosis prox R ICA, <50% stenosis L ICA, and unchanged calcified plaque at the L MCA bifurcation. The patient was seen by Dr. Arredondo again in April 2019, who believed the reported episode was not consistent with TIA/CVA and was more concerned with orthostasis 2/2 polypharmacy andmarijuana use. The patient presented to the ED yesterday due to another episode of presyncope, where she felt lightheaded and had to lay down for an extended period (~45 minutes) to achieve symptom resolution. 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 She experiences daily lightheadednesswhen changing positions from sitting to standing, but these resolve spontaneously after 10-15 seconds and do not bother her much. She and her are concerned since the more severe episodes havebeen occurring more frequently. She reports numbness of her right arm/hand in the morning that resol ves after several minutes. The patient has a history of bilateral carpal tunnel syndrome and underwent R carpal tunnel release, but her symptoms have since recurred. She also gets tingling of her her4th and 5th toes bilaterally that occurs intermittently. During the episodes of lightheadedness shesays her hands feel different and she drops things, but otherwise denies dropping things between episodes. PMH: Past Medical History: Diagnosis Date ??? Degenerative disc disease at L5-S1 level ??? Ischemic embolic stroke ([facility]) 07/04/2016 Cerebrovascular accident (CVA) due to embolism of cerebral artery PSHx: History reviewed. No pertinent surgical history. Meds: Medications Prior to Admission Medication Sig Dispense Refill Last Dose ??? aspirin 325 mg tablet take 1 tablet by oral route every day 0 0 Taking ??? atenolol (TENORMIN) 50 mg tablet Take 100 mg by mouth daily. Taking ??? atorvastatin (LIPITOR) 80 mg tablet take 1 tablet by oral route every day 0 0 Taking ??? biotin-keratin (BIOTIN PLUS KERATIN) 10,000-100 mcg-mg tablet 0 0 Taking ??? buPROPion XL (WELLBUTRIN XL) 150 mg 24 hr tablet take 1 tablet by oral route 2 times every day 0 0 Taking ??? cetirizine (ZyrTEC) 10 mg tablet take 1 tablet by oral route every day 0 0 Taking ??? clopidogrel (PLAVIX) 75 mg tablet take 1 tablet by oral route every day 0 0 Taking ??? diphenhydrAMINE-acetaminophen (TYLENOL PM EXTRA STRENGTH) 25-500 mg tablet take 2 tablet by oral route every day at bedtime 0 0 Taking ??? doxycycline (ADOXA) 50 mg tablet Take 50 mg by mouth 2 (two) times a day. Taking ??? hydroCHLOROthiazide (HYDRODIURIL) 25 mg tablet TAKE ONE TABLET BY MOUTH DAILY 90 tablet 3 ??? montelukast (SINGULAIR) 10 mg tablet take 1 tablet by oral route every day in the evening 0 0 Taking ??? ramipril (ALTACE) 10 mg capsule take 1 capsule by oral route every day 0 0 Taking ??? salmon oil-omega-3 fatty acids (SALMON OIL-1000) 1,000-200 mg capsule 0 0 Taking ??? senna-docusate (SENNA PLUS) 8.6-50 mg take 2 tablet by oral route every day 0 0 Taking Current Facility-Administered Medications Medication Dose Route Frequency Last Rate Last Dose ??? acetaminophen (TYLENOL) tablet 1,000 mg 1,000 mg oral Q6H PRN ??? aspirin tablet 325 mg 325 mg oral Daily 325 mg at 10/11/19930 ??? atenoloL (TENORMIN) tablet 100 mg 100 mg oral Daily 100 mg at 10/11/19931 ??? atorvastatin (LIPITOR) tablet 80 mg 80 mg oral Daily 80 mg at 10/11/19930 ??? buPROPion XL (WELLBUTRIN XL) 24 hour tablet 150 mg 150 mg oral Daily 150 mg at 10/11/19930 ??? cetirizine (ZyrTEC) tablet 10 mg 10 mg oral Daily 10 mg at 10/11/19930 ??? clopidogreL (PLAVIX) tablet 75 mg 75 mg oral Daily 75 mg at 10/11/19930 ??? doxycycline monohydrate (ADOXA) tablet 50 mg 50 mg oral BID 50 mg at 10/11/19 0932 ??? heparin 5,000 unit/mL injection 5,000 Units 5,000 Units subcutaneous Q8H REID ??? montelukast (SINGULAIR) tablet 10 mg 10 mg oral Nightly ??? sodium chloride 0.9% flush 0.5-20 mL 0.5-20 mL intra-catheter Q8H REID ??? sodium chloride 0.9% flush 0.5-20 mL 0.5-20 mL intra-catheter PRN ??? sodium chloride 0.9% infusion 75 mL/hr intravenous Continuous 75 mL/hr at 10/11/19 0940 75 mL/hr at 10/11/19 0940 Allergies: Allergies Allergen Reactions ??? Naproxen Rash ??? Nsaids (Non-Steroidal Anti-Inflammatory Drug) Hives ??? Penicillins Rash ??? Sulfa (Sulfonamide Antibiotics) Rash FamHx: Family History Problem Relation Age of Onset ??? Stroke Father Stroke; ??? Heart disease Father Family history of cardiac disorder - (Added by TW Conv) ??? Heart disease Mother Heart disease; /Family history of cardiac disorder - (Added by TW Conv) SocHx: Social History Tobacco Use ??? Smoking status: Former Smoker Types: Cigarettes ??? Smokeless tobacco: Never Used Substance Use Topics ??? Alcohol use: Yes ??? Drug use: Never ROS: All other systems negative except per HPI. OBJECTIVE EXAM: BP 168/48 (BP Location: Left arm, Patient Position: Lying) Pulse 58 Temp 36.5 ??C (97.7 ??F) (Oral) Resp 16 Ht 170.2 cm (5' 7 ) Wt 88.2 kg (194 lb 8 oz) SpO2 96% BMI 30.46 kg/m?? GENERAL EXAMINATION CONSTITUTIONAL: The patient is well appearing/well nourished, pleasant, comfortable. HEENT: NCAT, PERRL, MMM CARDIOVASCULAR: RRR no murmurs, rubs, or gallops. 2+ radial and DP pulses. No edema PULM: CTAB, no wheezes, rales, or rhonchi NEUROLOGIC EXAM: Mental Status: AOx4. Attention is intact. Recent and remote memory are normal. Fund of knowledge isage appropriate. Language: The patient has fluent speech and follows commands. Cranial Nerves II-XII intact. Motor: Strength is 5/5 throughout. Muscle tone and bulk are normal. There is no pronator drift. Finger tapping is normal bilaterally. Sensation: - Light touch is normal in all four extremities. - Pinprick gradient across bilateral carpal tunnel, no pinprick gradient across arms. Reverse pinprick gradient R leg, +Pinprick gradient L leg. - Vibration: 7/8 bilateral hands, 6/8 R knee, 4/8 L knee, 5/8 R ankle, 4/8 L ankle, 0/8 bilateral toes Coordination: Finger to nose and heel to martínez are normal bilaterally Reflexes: Reflexes are 2+ at the biceps, brachioradialis and patellae. 1+ achilles reflex. Labs/Imaging Laboratory review: Lab results in the last 24 hours: Recent Results (from the past 24 hour(s)) CBC with auto differential Collection Time: 10/10/19 10:18 PM Result Value Ref Range WBC 7.1 3.8 - 9.9 K/cumm Hgb 14.0 11.9 - 15.5 g/dL Hct 41.2 35.6 - 45.5 % Plt 251 150 - 400 K/cumm MPV 9.4 9.1 - 12.3 fL RBC 4.48 3.90 - 5.20 M/cumm MCV 92.0 81.3 - 96.4 fL MCH 31.3 27.1 - 33.3 pg MCHC 34.0 32.3 - 35.7 g/dL RDW CV 13.7 11.1 - 14.9 % RDW SD 46.2 35.7 - 48.1 fL NRBC abs 0.00 0.00 - 0.01 K/cumm Basic metabolic panel Collection Time: 10/10/19 10:18 PM Result Value Ref Range Sodium 139 135 - 145 mmol/L Potassium, pl 4.1 3.3 - 4.9 mmol/L Chloride 104 97 - 110 mmol/L CO2 22 22 - 32 mmol/L Anion gap 13 2 - 15 mmol/L BUN 25 8 - 25 mg/dL Creatinine 0.87 0.60 - 1.10 mg/dL Glucose 97 70 - 199 mg/dL Calcium 9.8 8.5 - 10.3 mg/dL Troponin I Collection Time: 10/10/19 10:18 PM Result Value Ref Range Troponin I <0.03 0.00 - 0.03 ng/mL Protime-INR Collection Time: 10/10/19 10:18 PM Result Value Ref Range PT 11.7 8.6 - 13.0 sec INR 1.1 0.8 - 1.2 aPTT Collection Time: 10/10/19 10:18 PM Result Value Ref Range aPTT 35 25 - 37 sec Type and screen Collection Time: 10/10/19 10:18 PM Result Value Ref Range Mara, indirect Negative ABO Rh O Positive Differential, auto Collection Time: 10/10/19 10:18 PM Result Value Ref Range Neutrophil abs 3.7 1.7 - 6.5 K/cumm Imm gran abs 0.0 0.0 - 0.1 K/cumm Lymphocyte abs 2.6 0.8 - 3.3 K/cumm Monocyte abs 0.7 0.2 - 0.8 K/cumm Eosinophil abs 0.1 0.0 - 0.5 K/cumm Basophil abs 0.0 0.0 - 0.1 K/cumm Neutrophil pct 52.2 % Imm gran pct 0.3 % Lymphocyte pct 36.2 % Monocyte pct 9.6 % Eosinophil pct 1.0 % Basophil pct 0.7 % Xr Chest Pa Lateral 2 Views Result Date: 10/11/2019 There are small lung volumes with bronchovascular crowding. Prominent interstitial markings may reflect a mild pulmonary edema. There is no effusion or pneumothorax. No consolidations concerning for pneumonia. The aortic arch is atherosclerotic. The heart size appears within normal limits. Dictatedby: Daljit Mcintosh The radiology attending physician has personally reviewed this study, andhad reviewed and/or edited this written report and agrees with it. Electronically signed by: Nacho Ashby M.D. Cta Head Neck W Wo Contrast Result Date: 10/11/2019 1. Stable severe right innominate artery stenosis. 2. Unchanged focal occlusion of the left V2/V3 segments with distal reconstitution with focal irregularity and dilation of the left V3 segment as itenters into the left C1 transverse foramen, which could represent area of fibromuscular dysplasia or dissection. 3. 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 Dictated by: Abbe Wright M.D. The radiology attending physician has personally reviewed this study, and had reviewed and/or edited this written report and agrees with it. Electronically signed by: Michael Zapata M.D. ASSESSMENT AND PLAN Suma Saenz is a 73 y.o. female with PMHx of L MCA CVA, bilateral carotid artery stenosis, L vertebral artery occlusion, innominate artery stenosis, and HTN who presents with lightheadeness/dizzness. ASSESSEMENT The patient has a history of subacutely worsening episodic lightheadness/pre- syncope that is likelyattributable to her known multifocal vascular stenosis, though alternately could be due to autonomic neuropathy given the sensory deficits on examination. She reports bilateral carpal tunnel syndrome, which can be seen with amyloidosis, a disease process that can also cause autonomic neuropathy. PLAN - send serum immunofixation - outpatient EMG/NCS with autonomic testing - Neurology team will arrange for outpatient follow up with Dr. Rosas in Neuromuscular clinic The Neurology Service will sign off. Please call the consult phone [phone] with any additional questions. Yesica Hernández MD Internal Medicine Resident, PGY-3 Cosigned by Inés Reyes MD at 10/11/2019 5:43 PM FACILITY MAINTENANCE WORKER LITY MAINTENANCE WORKER LITY MAINTENANCE WORKER Associated attestation - Inés Reyes MD - 10/11/2019 5:43 PM FACILITY MAINTENANCE WORKER I have seen and examined the patient on 10/11/19. I agree with the findings and plan of care as documented in the resident's/fellow's note. * Cassidy Bhatti MD PhD - 10/11/2019 1:24 AM CST Vascular Surgery Consultation Patient Name/MRN: Suma Saenz [id number] Treatment Team: Vascular Surgery- Reason for Consult: No data found Attending: Alton Hernandez MD Today's Date: 10/11/2019 Admitting Service: Emergency Admitting location: [facility] ED2-21/ED2-21 Admit Date: 10/10/2019 Code Status: No Order CC: Chief Complaint Patient presents with ??? Dizziness Subjective HPI: Patient is a 73 y.o. 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 Patient states that she had episode of presyncope today that occurred after lunch. She states that she started to feel lightheaded and dizzy, and then had to lay down on the for for an extended period of time in order to recover. Patient states that she started to feel better when she [place], but her said she was on the ground for approximately 45 minutes before she could get up again. 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 The last episode prior to these that occurred with back in February. Along with these episodes, patient endorses associated nausea. She states she also can become very diaphoretic. In addition to these more severe episodes, patient also endorses having multiple daily episodes of mild vertigo, which she states usual ly only last a few minutes, and can be relieved by momentarily putting her head down. Patient has been previously followed by Dr. Giron for her innominate occlusion carotid/vertebralstenoses, and operative intervention was previously discussed. Dr. Giron recently had a telephone conversation with the patient last week, prior to these 2 new recent episodes of severe presyncope. Patient states that she wanted to seek medical attention given the new incidents of this condition, but she states that she would be hesitant to pursue surgery at this moment given that her will soon be embarking on multiple rounds of chemotherapy. Past Medical History: Diagnosis Date ??? Degenerative disc disease at L5-S1 level ??? Ischemic embolic stroke ([facility]) 07/04/2016 Cerebrovascular accident (CVA) due to embolism of cerebral artery History reviewed. No pertinent surgical history. Allergies Allergen Reactions ??? Naproxen Rash ??? Nsaids (Non-Steroidal Anti-Inflammatory Drug) Hives ??? Penicillins Rash ??? Sulfa (Sulfonamide Antibiotics) Rash (Not in a hospital admission) No current facility-administered medications for this encounter. Current Outpatient Medications Medication Sig Dispense Refill [...] day. ??? hydroCHLOROthiazide (HYDRODIURIL) 25 mg tablet TAKE ONE TABLET BY MOUTH DAILY 90 tablet 3 ??? montelukast (SINGULAIR) 10 mg tablet take 1 tablet by oral route every day in the evening 0 0 ??? ramipril (ALTACE) 10 mg capsule take 1 capsule by oral route every day 0 0 ??? salmon oil-omega-3 fatty acids (SALMON OIL-1000) 1,000-200 mg capsule 0 0 ??? senna-docusate (SENNA PLUS) 8.6-50 mg take 2 tablet by oral route every day 0 0 Family History Problem Relation Age of [...] Alcohol use: Yes Primary Care Physician: Abbe Chu MD Primary Care Physician number: [phone] Review of Systems: General ROS: negative for fevers or chills Ophthalmic ROS: Described seeing spots occasionally in association with these episodes of presyncope/dizziness Hematological and Lymphatic ROS: negative for easy brusing Respiratory ROS: no cough, shortness of breath, or wheezing Cardiovascular ROS: no chest pain or dyspnea on exertion Gastrointestinal ROS: no abdominal pain, change in bowel habits Genito-Urinary ROS: no dysuria, trouble voiding, or hematuria Musculoskeletal ROS: negative Neurological ROS: No weakness or numbness on 1 side of the body or the other, no dysphasia Dermatological ROS: negative for rashes Objective Vitals: Arrival Vitals [10/10/19 1756] Temp 36.9 ??C (98.4 ??F) Pulse 56 Resp 16 BP (!) 200/72 SpO2 97 % Temp src Oral Heart Rate Source Patient Position BP Location FiO2 (%) Most Recent : Vitals: 10/11/19 0115 BP: 169/48 Pulse: 54 Resp: 15 Temp: SpO2: 95% No intake/output data recorded. No intake/output data recorded. Physical exam: General appearance: appears stated age Constitutional: No acute distress Eyes: EOMI, anicteric Cardiovascular: Regular rate, regular rhythm Right Radial: Palpable Right Femoral: Palpable Right DP: Palpable Left Radial: Palpable Left Femoral: Palpable Left DP: Palpable but left robust compared with the right Respiratory: non-labored breathing Skin: Without ulceration GI: Soft, non-tender; non-distended. Muskuloskeletal: Extremities warm and nonedematous Neuro: Alert and oriented x4, non-focal Lab/Radiology/Diagnostic Review: Laboratory review: reviewed the laboratory result(s) Laboratory values all within normal limits Assessment /Plan Patient is a 73 y.o. female w/ h/o vertebrobasilar insufficiency, orthostatic hypoTN, innominate artery occlusion, stenosis of the L carotid and vertebral arteries who now presents as a transfer from OSH with recurrent pre- syncope/vertigo. Patient has recently had two severe episodes, which occurred following her recent telephone conversation with Dr. Giron to discuss her progress. Previously, patient was under consideration for aorta to right subclavian, right common carotid, and left common carotid bypasses for treatment. [facility] physicians under the impression on transfer that patienthad CTA performed at OSH, but no disc sent along with the patient. - request outside hospital CTA if performed, otherwise can plan to get new CTA head and neck - keep patient NPO pending further evaluation - recommend Neurology consult for further assessment of symptoms - Vascular surgery will continue to follow. Please call [phone] with vascular consult questions 30/03. Cosigned by Alton Marc MD at 10/11/2019 6:55 AM FACILITY MAINTENANCE WORKER LITY MAINTENANCE WORKER LITY MAINTENANCE WORKER documented in this encounter ED Notes * Alton Hernandez MD - 10/10/2019 11:41 PM CST HPI Patient is a 73-year-old female with history of severe right brachiocephalic stenosis with decreased flow to right carotid artery seen on CTA in April as well as 50% bilateral internal carotid artery stenosis and hypertension that presents to the emergency department with lightheadedness. For the past few years the patient has had episodes of lightheadedness, weakness and tremulousness that usually last for a few seconds at a time. However she has had 3 episodes that have lasted between 1 and 2 hours. The first one was 6 months ago, followed by 1 a week ago and her most recent 1 was today. Today she had 90 minutes of pallor, lightheadedness, weakness. She was laying on the ground because she did not feel like she was able to stand up. There does not appear to be an inciting event before any of these episodes. She sometimes feels nauseous and has blurry vision but denies any chest pain,headache, shortness of breath or any other symptoms. PSH: appendectomy Rx: atenolol All: PCN, sulfa, naproxen SH: uses marijuana edibles for back pain, negative tobacco or alcohol FH: Negative for DM Chief Complaint Patient presents with ??? Dizziness HPI Patient History Patient Active Problem List Diagnosis Date Noted ??? Syncope and collapse 04/05/2019 ??? Vertebrobasilar insufficiency 02/18/2017 ??? Labile hypertension 10/17/2016 Class: Chronic ??? 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 History of ischemic left MCA stroke 05/14/2016 Class: Chronic ??? Vertebral artery compression syndrome 03/18/2016 Class: Temporary ??? Stenosis of carotid artery 01/25/2016 Class: [...] 02/26/2015 Class: Temporary ??? Carotid artery disease (CMS/HCC) 02/26/2015 Class: Temporary ??? Dyslipidemia 02/26/2015 Class: Temporary Past Medical History: Diagnosis Date ??? Degenerative disc disease at L5-S1 level ??? Ischemic embolic stroke (CMS/HCC) 07/04/2016 Cerebrovascular accident (CVA) due to embolism of cerebral artery History reviewed. No pertinent surgical history. Family History Problem Relation Age of Onset [...] Yes ??? Drug use: Never Social History Patient does not qualify to have social determinant information on file (likely too young). Social History Narrative Occasional alcohol use : (Added by TW Conv) Review of Systems Review of Systems Constitutional: Negative for fever. HENT: Negative for sore throat. Eyes: Positive for visual disturbance. Respiratory: Negative for shortness of breath. Cardiovascular: Negative for chest pain. Gastrointestinal: Negative for abdominal pain. Genitourinary: Negative for dysuria. Musculoskeletal: Negative for arthralgias. Skin: Negative for rash. Neurological: Negative for headaches. Physical Exam ED Triage Vitals Temp Pulse Resp BP SpO2 10/10/19 1756 10/10/19 1756 10/10/19 1756 10/10/19 1756 10/10/19 1756 36.9 ??C (98.4 ??F) 56 16 (!) 200/72 97 % Temp src Heart Rate Source Patient Position BP Location FiO2 (%) 10/10/19 1756 10/11/19 0605 10/11/19 0530 10/11/19 0605 -- Oral Monitor Sitting Left arm Physical Exam Vitals signs and nursing note reviewed. Constitutional: General: She is not in acute distress. Appearance: She is well-developed. HENT: Head: Normocephalic and atraumatic. Eyes: Conjunctiva/sclera: Conjunctivae normal. Neck: Musculoskeletal: Neck supple. Cardiovascular: Rate and Rhythm: Normal rate and regular rhythm. Heart sounds: Normal heart sounds. No murmur. Pulmonary: Effort: Pulmonary effort is normal. No respiratory distress. Breath sounds: Normal breath sounds. Abdominal: General: Bowel sounds are normal. There is no distension. Palpations: Abdomen is soft. Tenderness: There is no tenderness. There is no guarding. Skin: General: Skin is warm and dry. Neurological: General: No focal deficit present. Mental Status: She is alert and oriented to person, place, and time. Cranial Nerves: No cranial nerve deficit. Sensory: No sensory deficit. Motor: No weakness. Coordination: Coordination normal. [facility] Patient is a 73-year-old female with history of severe right brachiocephalic stenosis with decreased flow to right carotid artery seen on CTA in April as well as 50% bilateral internal carotid artery stenosis and hypertension that presents to the emergency department with lightheadedness. Ddx includes hypotension, TIA, arrhythmia. Plan: Labs: CBC, BMP, trop, coags Imaging: CTA Dispo: pending vascular c/s [facility] Attending Summary of Care ED Course as of Oct 18 1451 Time: 10/11 6 Comment: Patient resting comfortably. Reports 3 episodes of lightheadedness. March, thursday, and today. By: Katie Car MD Time: 10/11 0129 Comment: Spoke with vascular. Do not believe patient needs repeat imaging at this time. Lower concern that patient's symptoms are purely vascular related. Will place in ED obs and await Dr. Davis's assessment and final recs By: Katie Car MD Time: 10/11 0158 Comment: Signed out to obs By: Katie Car MD Time: 10/11 0424 Comment: Spoke with vascular. Will admit to their service By: Katie Car MD Dizziness Darryl Celestin MD Resident 10/10/19 6743 I evaluated the patient on 10/10/2019 and agree with the history, exam, and plan as documented unlessotherwise noted. Alton Hernandez MD 10/18/19 2540 LITY MAINTENANCE WORKER LITY MAINTENANCE WORKER * Bethany Guerrero RN - 10/10/2019 9:41 PM CST Bed: ED2-21 Expected date: 10/10/19 Expected time: 4:11 PM Means of arrival: Ambulance Comments: Bethany Guerrero RN 10/10/19 6026 LITY MAINTENANCE WORKER * Alton Jonas RN - 10/10/2019 5:51 PM CST Patient coming to the ED via EMS from OSH for vascular consult. Pt has been suffering from vertigo due to carotid stenosis/blockages. Pt has been having numbness/tingling down right arm. LITY MAINTENANCE WORKER LITY MAINTENANCE WORKER documented in this encounter Miscellaneous Notes * Plan of Care - Jody De Luna RN - 10/12/2019 8:36 AM FACILITY MAINTENANCE WORKER Goals: Problem: Activity: Goal: Risk for activity intolerance will decrease Outcome: Progressing Problem: Lack of Knowledge: Goal: Knowledge of diagnostic tests will improve Outcome: Progressing Goal: Knowledge of disease or condition will improve Outcome: Progressing Goal: Knowledge of safety precautions will improve Outcome: Progressing Goal: Knowledge of the prescribed therapeutic regimen will improve Outcome: Progressing Problem: Health Behavior: Goal: Ability to state signs and symptoms to report to health care provider will improve Outcome: Progressing Problem: Physical Regulation: Goal: Ability to maintain clinical measurements within normal limits will improve Outcome: Progressing Problem: Health Behavior: Goal: Understanding of discharge needs will improve Outcome: Progressing Clinical Goals for the Shift: discharge planning; monitor blood pressure; immunotype lab; out of bed Summary: Patient A x O to 4. Denies pain, SOB, n/v/d, or chest pain. Up ad yissel. Immunotype lab obtained. BP high this morning to 190's but given home atenolol for blood pressure control. Discharge today. No new orders obtained. Will continue to monitor patient at this time. LITY MAINTENANCE WORKER * Plan of Care - Geetha Kong RN - 10/12/2019 1:45 AM CST Problem: Activity: Goal: Risk for activity intolerance will decrease Outcome: Progressing Problem: Lack of Knowledge: Goal: Knowledge of diagnostic tests will improve Outcome: Progressing Goal: Knowledge of disease or condition will improve Outcome: Progressing Goal: Knowledge of safety precautions will improve Outcome: Progressing Goal: Knowledge of the prescribed therapeutic regimen will improve Outcome: Progressing Problem: Health Behavior: Goal: Ability to state signs and symptoms to report to health care provider will improve Outcome: Progressing Problem: Physical Regulation: Goal: Ability to maintain clinical measurements within normal limits will improve Outcome: Progressing Problem: Health Behavior: Goal: Understanding of discharge needs will improve Outcome: Progressing Goals: Clinical Goals for the Shift: rest/sleep; pain control; nuerovasc checks; D/C tomorrow; monitor forchanges LITY MAINTENANCE WORKER * Plan of Care - Jody De Luna RN - 10/11/2019 11:41 AM FACILITY MAINTENANCE WORKER Goals: Problem: Activity: Goal: Risk for activity intolerance will decrease Outcome: Progressing Problem: Lack of Knowledge: Goal: Knowledge of diagnostic tests will improve Outcome: Progressing Goal: Knowledge of disease or condition will improve Outcome: Progressing Goal: Knowledge of safety precautions will improve Outcome: Progressing Goal: Knowledge of the prescribed therapeutic regimen will improve Outcome: Progressing Problem: Health Behavior: Goal: Ability to state signs and symptoms to report to health care provider will improve Outcome: Progressing Problem: Physical Regulation: Goal: Ability to maintain clinical measurements within normal limits will improve Outcome: Progressing Problem: Health Behavior: Goal: Understanding of discharge needs will improve Outcome: Progressing Clinical Goals for the Shift: pain control; out of bed; monitor pulse checks and neuro status; IV fluids; CT scan Summary: Patient arrived this AM to 7575A alert and oriented x 4. Denies chest pain, SOB, or n/v/d.Generalized pain and back pain due to lying in stretcher in ED. Offered Tylenol patient refused. IVfluids initiated at 75 ml/hr. CT scan obtained this AM. Awaiting plan from surgery teams. Neurologyconsulted and at bedside 0900. Up ad yissel. Neurovascularly intact. VS stable. No new orders obtained. Will continue to monitor patient at this time. LITY MAINTENANCE WORKER * Medical Student - Chay Pink - 10/11/2019 10:47 AM CST Neurology Consult Note Requesting Provider: Zachary Giron MD, Vascular Reason for Consult: recurrent syncope/dizziness, followed by Dr Arredondo NAME: Suma Saenz : 1945 CC: Chief Complaint Patient presents with ??? Dizziness SUBJECTIVE HPI: Suma Saenz is a 73 y.o. female with PMH sig for stroke, L vertebral artery occlusion, CAD, orthostatic hypotension, and known diffuse arterial stenosis who neurology is seeing in consultation for recurrent syncope/dizziness, followed by Dr Arredondo Ms. Saenz's symptoms originally began about 3 years ago when she began to have recurrent episodes of lightheadedness, weakness, and hot flashes that lasted 15-20s and from which she would fully recovery. 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 Since the episodes started they have stayed consistent in duration, occurrence, and character, happening 3-4 times/day and lasting 15-20s at a time. Putting her head down or sitting down usually helps to more quickly alleviate her symptoms. 3 years ago this March, she underwent cardiac catheterization during which she experience an ischemic embolic stroke. She denies any persistent deficits from her stroke except somewhat increased difficulty with calculation and word finding. She follows with Dr. Arredondo for her stroke, and she has an appointment with the clinic this Thursday, 10/14. In March of 2019, she had a syncopal episode where her vision went blurry and she felt lightheaded before passing out. She was taken to an OSH ED where she was treated and discharged. Otherwise, her episodes remained the same until about 3 weeks ago when they began getting worse in intensity. Additionally, she would sometimes need 20 minutes or so to recover from them before she no longer felt week. On 10/04, she was at the vet with her and dog when she felt another episode come on. Her took her to the ED, but she refused to be admitted at that time. Then on 10/10, she had anotherepisode that didn't resolve with sitting down or lying down with her legs elevated on an office chair. She denies losing consciousness, falling, hitting her head, headache, or nausea/vomiting. Her made her come into the ED for further workup. She has felt fine since yesterday with no further episodes. She walked on her own to the restroom this morning without any symptoms. She underwent CTA this AM which shows stable severe right innominate stenosis, unchanged focal occlusion of the left V2/V3 segments with distal reconstitution, and stable stenosis of the proximal right and left ICAs. She is wary of further treatment or surgery as her is about to embark on radiation treatment for recurrent prostate cancer. PMH: Past Medical History: Diagnosis Date ??? Degenerative disc disease at L5-S1 level ??? Ischemic embolic stroke (CMS/HCC) 07/04/2016 Cerebrovascular accident (CVA) due to embolism of cerebral artery -HTN -CAD PSHx: -cardiac catheterization (March 2017) -cataract surgery -appendectomy (~10 years ago) -carpal tunnel release on right -removal of cyst from gut Meds: Medications Prior to Admission Medication Sig Dispense Refill Last Dose ??? aspirin 325 mg tablet take 1 tablet by oral route every day 0 0 Taking ??? atenolol (TENORMIN) 50 mg tablet Take 100 mg by mouth daily. Taking ??? atorvastatin (LIPITOR) 80 mg tablet take 1 tablet by oral route every day 0 0 Taking ??? biotin-keratin (BIOTIN PLUS KERATIN) 10,000-100 mcg-mg tablet 0 0 Taking ??? buPROPion XL (WELLBUTRIN XL) 150 mg 24 hr tablet take 1 tablet by oral route 2 times every day 0 0 Taking ??? cetirizine (ZyrTEC) 10 mg tablet take 1 tablet by oral route every day 0 0 Taking ??? clopidogrel (PLAVIX) 75 mg tablet take 1 tablet by oral route every day 0 0 Taking ??? diphenhydrAMINE-acetaminophen (TYLENOL PM EXTRA STRENGTH) 25-500 mg tablet take 2 tablet by oral route every day at bedtime 0 0 Taking ??? doxycycline (ADOXA) 50 mg tablet Take 50 mg by mouth 2 (two) times a day. Taking ??? hydroCHLOROthiazide (HYDRODIURIL) 25 mg tablet TAKE ONE TABLET BY MOUTH DAILY 90 tablet 3 ??? montelukast (SINGULAIR) 10 mg tablet take 1 tablet by oral route every day in the evening 0 0 Taking ??? ramipril (ALTACE) 10 mg capsule take 1 capsule by oral route every day 0 0 Taking ??? salmon oil-omega-3 fatty acids (SALMON OIL-1000) 1,000-200 mg capsule 0 0 Taking ??? senna-docusate (SENNA PLUS) 8.6-50 mg take 2 tablet by oral route every day 0 0 Taking Current Facility-Administered Medications Medication Dose Route Frequency Last Rate Last Dose ??? acetaminophen (TYLENOL) tablet 1,000 mg 1,000 mg oral Q6H PRN ??? aspirin tablet 325 mg 325 mg oral Daily 325 mg at 10/11/19930 ??? atenoloL (TENORMIN) tablet 100 mg 100 mg oral Daily 100 mg at 10/11/19931 ??? atorvastatin (LIPITOR) tablet 80 mg 80 mg oral Daily 80 mg at 10/11/19930 ??? buPROPion XL (WELLBUTRIN XL) 24 hour tablet 150 mg 150 mg oral Daily 150 mg at 10/11/19930 ??? cetirizine (ZyrTEC) tablet 10 mg 10 mg oral Daily 10 mg at 10/11/19930 ??? clopidogreL (PLAVIX) tablet 75 mg 75 mg oral Daily 75 mg at 10/11/19930 ??? doxycycline monohydrate (ADOXA) tablet 50 mg 50 mg oral BID 50 mg at 10/11/19931 ??? heparin 5,000 unit/mL injection 5,000 Units 5,000 Units subcutaneous Q8H REID ??? montelukast (SINGULAIR) tablet 10 mg 10 mg oral Nightly ??? sodium chloride 0.9% flush 0.5-20 mL 0.5-20 mL intra-catheter Q8H REID ??? sodium chloride 0.9% flush 0.5-20 mL 0.5-20 mL intra-catheter PRN ??? sodium chloride 0.9% infusion 75 mL/hr intravenous Continuous 75 mL/hr at 10/11/19939 75 mL/hr at 10/11/19939 Allergies: Allergies Allergen Reactions ??? Naproxen Rash ??? Nsaids (Non-Steroidal Anti-Inflammatory Drug) Hives ??? Penicillins Rash ??? Sulfa (Sulfonamide Antibiotics) Rash FamHx: Family History Problem Relation Age of Onset ??? Stroke Father Stroke; ??? Heart disease Father Family history of cardiac disorder - (Added by TW Conv) ??? Heart disease Mother Heart disease; /Family history of cardiac disorder - (Added by TW Conv) SocHx: Social History Tobacco Use ??? Smoking status: Former Smoker Types: Cigarettes ??? Smokeless tobacco: Never Used Substance Use Topics ??? Alcohol use: Yes ??? Drug use: Never Ms. Saenz is a former 25-year smoker, during which she smoke 1-2 packs/day. She quit about 15 years ago. She currently has 4-5 drinks per week. She uses approximately 5-7mg of cannabis per day forher chronic back pain. ROS: +acid reflux, otherwise negative except per HPI OBJECTIVE EXAM: BP 168/48 (BP Location: Left arm, Patient Position: Lying) Pulse 58 Temp 36.5 ??C (97.7 ??F) (Oral) Resp 16 Ht 170.2 cm (5' 7 ) Wt 88.2 kg (194 lb 8 oz) SpO2 96% BMI 30.46 kg/m?? GENERAL EXAMINATION CONSTITUTIONAL: patient appears comfortable and pleasant lying in the hospital bed HEENT & NECK: NC/AT, MMM, no scleral icterus, no lymphadenopathy CARDIOVASCULAR: RRR, no M/G/R PULM: CTAB, no adventitious breath sounds ABD: soft, nontender, nondistended EXT: warm and well-perfused w/o clubbing, cyanosis, or edema SKIN: no rashes or lesions visible NEUROLOGIC EXAM: Mental Status: A&O x4 (person, place, date, reason for hospitalization); memory of presidents intact to Marc; can spell world backwards; won't attempt serial 7s. Language: Fluent speech. Converses appropriately. Naming intact. Cranial Nerves II-XII: Visual corcoran full to counting fingers with glasses. PERRL. EOMI w/o nystagmus. SILT V1-V3. Face issymmetric, hearing is intact bilaterally and palate is up- going bilaterally. Shoulder shrug is strong; tongue is midline and there is no dysarthria. Motor: Strength is 5/5 throughout. Muscle tone and bulk are normal. There is no pronator drift. Finger tapping is normal bilaterally. Sensation: Light touch is normal in all four extremities. Reverse pin gradient in R leg, pin gradient present in L leg. Pinprick gradient across carpal tunnel bilaterally. No vibratory sense in toes, diminishedin knees and ankles. Coordination: Finger to nose is normal on right, patient won't attempt on left due to IV. Lpak-wimb-qzfm intact bilaterally. Ambulation: Gait is somewhat shortened and wobbly on standing up. Reflexes: Reflexes are 2+ at the biceps on rt (did not assess left due to IV), brachioradialis, triceps, and patellae bilaterally. Ankle reflexes 1+ bilaterally. Hematology Lab History Some values may be hidden. Unless noted otherwise, only the newest values recorded on each date aredisplayed. Labs - Hematology Latest Ref Range 10/10/19 WBC 3.8 - 9.9 K/cumm 7.1 Total Hb, POC 11.9 - 15.5 g/dL 14.0 Hct 35.6 - 45.5 % 41.2 Plt 150 - 400 K/cumm 251 Neutrophil abs 1.7 - 6.5 K/cumm 3.7 Chem/LFT Lab History Some values may be hidden. Unless noted otherwise, only the newest values recorded on each date aredisplayed. Labs-Chem/LFT Latest Ref Range 05/23/19 10/10/19 Sodium 135 - 145 mmol/L 139 Creatinine 0.60 - 1.10 mg/dL 0.87 CrCl- Actual Body Weight (Cockcroft-Gault) 81.3 84.9 No results found for this or any previous visit. ASSESSMENT AND PLAN Suma Saenz is a 73 y.o. female with PMH sig for stroke, L vertebral artery occlusion, CAD, orthostatic hypotension, and known diffuse arterial stenosis who neurology is seeing in consultation for recurrent syncope/dizziness, followed by Dr Arredondo ASSESSEMENT Ms. Saenz is likely experiencing presyncopal episodes related to her known diffuse stenosis, atherosclerosis, and occlusion with infrequent more severe syncopal episodes. Her episodes have been largely consistent since they started about 3 years ago, only more recently getting somewhat more severe in degree. The stereotyped nature of her episodes is consistent with an etiology of poor flow. The literature supports that poor posterior circulation is associated with syncope and may be related to her symptoms whereas anterior circulation insufficiency causing syncopal episodes is quite rare (h ttps://www.ncbi.nlm.nih.gov/pmc/articles/SID5290035/). Additionally, her vision changes during thisepisodes further supports the cause of her problem being related to her poor posterior circulation. Additionally, she has no lasting deficits either from these episodes or from her prior stroke. These are unlikely to be TIAs given the frequency of her episodes and that her only symptoms are lightheadedness and general weakness. This is more consistent with generally poor global cerebral flow downstream from her known stenotic disease. Her neuropathy may also be a clue to underlying autonomic neuropathy, exacerbating her problems especially as she stands. Further evaluation can be done with further treatment including compression stockings and remaining well hydrated. Though this may be contributing to her symptomology, she has known HTN already and is symptomatic which may limit treatment. PLAN -We will arrange EMG/NCS with autonomic testing outpatient. -Follow with stroke clinic for upcoming appointment 10/14. -Neurology will sign off. Please call us with any further questions or concerns. Please call the consult phone [phone] (senior) with questions. Cosigned by Adrien Downing MD PhD at 10/14/2019 10:34 AM FACILITY MAINTENANCE WORKER LITY MAINTENANCE WORKER LITY MAINTENANCE WORKER Associated attestation - Adrien Downing MD PhD - 10/14/2019 10:34 AM FACILITY MAINTENANCE WORKER This is a MEDICAL STUDENT note and is for educational purposes only. For up to date plans please see the daily progress note for the date of service. Adrien Downing MD PhD Neurology PGY3 * Assessment & Plan Note - Cassidy Anglin NP - 10/11/2019 10:08 AM CSTAssociated Problem(s): Hypertension - Continue current regimen with atenolol - SBP 100-160 LITY MAINTENANCE WORKER * Assessment & Plan Note - Cassidy Anglin NP - 10/11/2019 10:06 AM CSTAssociated Problem(s): Dizziness - CTA head and neck with arch imaging completed, results to be followed by Vascular team - Neurology consult, saw Dr Arredondo as an outpatient. Consulted to rule out source of dizziness/presyncope - BP control with home medications - Fall precautions LITY MAINTENANCE WORKER * ED Procedure Note - Alton Hernandez MD - 10/10/2019 11:50 PM FACILITY MAINTENANCE WORKER Associated Order(s): ECG 12 lead Procedure ECG 12 lead Date/Time: 10/10/2019 11:50 PM Performed by: Alton Hernandez MD Authorized by: Henri Lutz MD Rate: ECG rate: 54 ECG rate assessment: bradycardic Rhythm: Rhythm: sinus bradycardia QRS: QRS axis: Normal Conduction: Conduction: normal ST segments: ST segments: Non-specific T waves: T waves: inverted Inverted: III Previous ECG: Previous ECG: Compared to current Date of previous EC04/03/2016 Similarity: No change Interpretation: Interpretation: No significant change Alton Hernandez MD 10/10/19 2351 Alton Hernandez MD 10/10/19 2352 Alton Hernandez MD 10/11/19 0000 LITY MAINTENANCE WORKER LITY MAINTENANCE WORKER LITY MAINTENANCE WORKER * ED Re-evaluation Note - Katie Epstein MD - 10/10/2019 11:26 PM FACILITY MAINTENANCE WORKER ED Re-evaluation Sign out received from: Dr. 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 Lasted 1.5hrs No clear precipitating factors. nausea and blurry vision with episodes. Seen here by vascular. Vascular saw patient Plan/dispo: Dispo per vascular ED Course as of Oct 11 631 Time: 10/11 0007 Comment: Patient resting comfortably. Reports 3 episodes of lightheadedness. March, thursday, and today. By: Katie Car MD Time: 10/11 012 Comment: Spoke with vascular. Do not believe patient needs repeat imaging at this time. Lower concern that patient's symptoms are purely vascular related. Will place in ED obs and await Dr. Davis's assessment and final recs By: Katie Car MD Time: 10/11 157 Comment: Signed out to obs By: Katie Car MD Time: 10/11 0424 Comment: Spoke with vascular. Will admit to their service By: MD Katie Diaz MD Resident 10/11/19 0632 LITY MAINTENANCE WORKER * ED Pre-Arrival Note - Leora Olvera RN - 10/10/2019 4:11 PM CST Pre-Arrival Note Pt transfer from [facility] in [place] with c/o lightheadedness X today. MD Rubi on-line for report to MD Keesha. Pt has a known hx of bilateral carotid stenosis by 65%.Pt also noted to have decreased cap refill at OSH. GCS 15, 150 systolic, 50 HR, 95% RA. Pt acceptedby MD Monico with vascular. Leora Olvera, RN LITY MAINTENANCE WORKER documented in this encounter Plan of Treatment Not on file documented as of this encounter Procedures Procedure Name Priority Date/Time Associated Diagnosis Comments IMMUNOTYPING STAT 10/12/2019 8:07 AM FACILITY MAINTENANCE WORKER CTA HEAD NECK W WO CONTRAST IP Routine 10/11/2019 8:32 AM FACILITY MAINTENANCE WORKER ECG 12-LEAD Routine 10/10/2019 11:50 PM FACILITY MAINTENANCE WORKER XR CHEST PA LATERAL 2 VIEWS ED 10/10/2019 10:46 PM FACILITY MAINTENANCE WORKER DIFFERENTIAL AUTO Routine 10/10/2019 10: 18 PM FACILITY MAINTENANCE WORKER CBC WITH AUTO DIFFERENTIAL Routine 10/10/2019 10:18 PM FACILITY MAINTENANCE WORKER TROPONIN I STAT 10/10/2019 10:18 PM FACILITY MAINTENANCE WORKER APTT STAT 10/10/2019 10:18 PM FACILITY MAINTENANCE WORKER PROTIME-INR STAT 10/10/2019 10:18 PM FACILITY MAINTENANCE WORKER TYPE AND SCREEN STAT 10/10/2019 10:18 PM FACILITY MAINTENANCE WORKER BASIC METABOLIC PANEL STAT 10/10/2019 10:18 PM FACILITY MAINTENANCE WORKER documented in this encounter Results * Immunotyping, serum (10/12/2019 8:07 AM FACILITY MAINTENANCE WORKER) Immunofixation No monoclonal protein detected. [facility] Blood specimen (specimen) 10/12/2019 8:07 AM FACILITY MAINTENANCE WORKER 10/12/2019 8:48 AM FACILITY MAINTENANCE WORKER Cassidy Anglin NP LAB BLOOD ORDERABLE S Final Result [facility] Department of Laboratories [place] [address] * CTA Head Neck W WO Contrast (10/11/2019 8:32 AM FACILITY MAINTENANCE WORKER) Anatomical Region Laterality Modality Head and Neck N/A Computed Tomogra phy 10/11/2019 10:0 5 AM FACILITY MAINTENANCE WORKER Impressions 10/11/2019 10:08 AM FACILITY MAINTENANCE WORKER 1. Stable severe right innominate artery stenosis. 2. 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 3. 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 Dictated by: Abbe Wright M.D. The radiology attending physician has personally reviewed this study, and had reviewed and/or edited this written report and agrees with it. Electronically signed by: Michael Zapata M.D. Narrative 10/11/2019 10:08 AM FACILITY MAINTENANCE WORKER EXAMINATION: Computed tomography angiography (CTA) of the head without and with contrast Computed tomography angiography (CTA) of the neck with contrast HISTORY: Dizziness and syncope. 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 TECHNIQUE: Computed tomography of the head was performed without contrast according to standard protocol. Computed tomographic angiography was then obtained from the aortic arch to the vertex following the uneventful administration of intravenous contrast. 3D images were generated on a dedicated workstation. Contrast information: 100 mL [id number] COMPARISON: Most recent prior is dated 05/23/2019. FINDINGS: There is dense calcification within the left middle cerebral artery ad punctate calcifications within bilateral basal ganglia. There is no acute intracranial hemorrhage . Ventricles are of normal size and morphology. No mass effect or midline shift is present. The nazario-white matter differentiation is normal. The visualized portions of the orbits are normal. There are bilateral lens replacement. The visualized portions of the paranasal sinuses are normal. No fractures are identified. Scattered subcentimeter lymph nodes are seen in the neck. None are pathologically enlarged or abnormally enhancing. The muscles of the neck are normal. Fascial planes are preserved and the deep spaces of the neck are normal. The visualized airway is widely patent. The spinal canal is normal in caliber. There is multilevel degenerative disc disease. Neural foramina are normal. Limited examination of the superior thorax shows no pulmonary infiltrate, suspicious nodules, or pleural effusions. Angiographic findings: The visualized aortic arch appears normal with normal configuration of the great vessels. There is moderate atherosclerosis of the aortic arch. 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 The origin of the right innominate artery has severe atherosclerotic calcifications, which extends into the right subclavian and common carotid artery. NASCET criteria (based on the sharp bone coronal images secondary to severe atherosclerotic calcifications of the carotid bifurcations): Left ICA: Narrowest diameter: 3.4 mm Normal diameter: 5.0 mm 32% stenosis Right ICA (accuracy of stenosis measurement is reduced secondary to decreased enhancement in calcified atherosclerotic disease): Narrowest diameter: 2.6 mm Normal diameter: 4.7 mm 55% stenosis The origin of the right vertebral artery has dense atherosclerotic calcifications, which results in at least moderate degree of stenosis. Otherwise, the right vertebral artery remains patent at this course. The left vertebral artery is diminutive in size with occlusion at the junction of the V2/V3 segments, with distal reconstitution of the V4 from multiple collaterals. Additionally, there is focal irregularity and dilation of the left V3 segment as it enters into the left C1 transverse foramen, which could represent area of fibromuscular dysplasia or dissection, however, not significantly changed since previous examination. There are atherosclerotic calcifications of the intracranial portions of the internal carotid arteries. There is unchanged atherosclerotic calcifications of the left middle cerebral artery bifurcation, resulting in moderate stenosis. There is minimal narrowing of bilateral A2 segments and bilateral posterior cerebral arteries. The basilar artery is normal. No aneurysm or vascular malformation identified. Procedure Note Michael Zapata MD - 10/11/2019 EXAMINATION: Computed tomography angiography (CTA) of the head without and with contrast Computed tomography angiography (CTA) of the neck with contrast HISTORY: Dizziness and syncope. 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 TECHNIQUE: Computed tomography of the head was performed without contrast according to standard protocol. Computed tomographic angiography was then obtained from the aortic arch to the vertex following the uneventful administration of intravenous contrast. 3D images were generated on a dedicated workstation. Contrast information: 100 mL [id number]-350 COMPARISON: Most recent prior is dated 05/23/2019. FINDINGS: There is dense calcification within the left middle cerebral artery ad punctate calcifications within bilateral basal ganglia. There is no acute intracranial hemorrhage . Ventricles are of normal size and morphology. No mass effect or midline shift is present. The nazario-white matter differentiation is normal. The visualized portions of the orbits are normal. There are bilateral lens replacement. The visualized portions of the paranasal sinuses are normal. No fractures are identified. Scattered subcentimeter lymph nodes are seen in the neck. None are pathologically enlarged or abnormally enhancing. The muscles of the neck are normal. Fascial planes are preserved and the deep spaces of the neck are normal. The visualized airway is widely patent. The spinal canal is normal in caliber. There is multilevel degenerative disc disease. Neural foramina are normal. Limited examination of the superior thorax shows no pulmonary infiltrate, suspicious nodules, or pleural effusions. Angiographic findings: The visualized aortic arch appears normal with normal configuration of the great vessels. There is moderate atherosclerosis of the aortic arch. 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 The origin of the right innominate artery has severe atherosclerotic calcifications, which extends into the right subclavian and common carotid artery. NASCET criteria (based on the sharp bone coronal images secondary to severe atherosclerotic calcifications of the carotid bifurcations): Left ICA: Narrowest diameter: 3.4 mm Normal diameter: 5.0 mm 32% stenosis Right ICA (accuracy of stenosis measurement is reduced secondary to decreased enhancement in calcified atherosclerotic disease): Narrowest diameter: 2.6 mm Normal diameter: 4.7 mm 55% stenosis The origin of the right vertebral artery has dense atherosclerotic calcifications, which results in at least moderate degree of stenosis. Otherwise, the right vertebral artery remains patent at this course. The left vertebral artery is diminutive in size with occlusion at the junction of the V2/V3 segments, with distal reconstitution of the V4 from multiple collaterals. Additionally, there is focal irregularity and dilation of the left V3 segment as it enters into the left C1 transverse foramen, which could represent area of fibromuscular dysplasia or dissection, however, not significantly changed since previous examination. There are atherosclerotic calcifications of the intracranial portions of the internal carotid arteries. There is unchanged atherosclerotic calcifications of the left middle cerebral artery bifurcation, resulting in moderate stenosis. There is minimal narrowing of bilateral A2 segments and bilateral posterior cerebral arteries. The basilar artery is normal. No aneurysm or vascular malformation identified. IMPRESSION: 1. Stable severe right innominate artery stenosis. 2. 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 3. 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 Dictated by: Abbe Wright M.D. The radiology attending physician has personally reviewed this study, and had reviewed and/or edited this written report and agrees with it. Electronically signed by: Michael Zapata M.D. Cassidy Anglin [employer] IM[facility] CT PROCEDURES F inal Result * ECG 12-LEAD (10/10/2019 11:50 PM FACILITY MAINTENANCE WORKER) Narrative [facility] - 10/10/2019 11:50 PM FACILITY MAINTENANCE WORKER Alton Hernandez MD ? 10/11/2019 12:00 AM ECG 12 lead Date/Time: 10/10/2019 11:50 PM Performed by: Alton Hernandez MD Authorized by: Henri Lutz MD Rate: ??ECG rate: ??54 ??ECG rate assessment: bradycardic ?? Rhythm: ??Rhythm: sinus bradycardia ?? QRS: ??QRS axis: ??Normal Conduction: ??Conduction: normal ?? ST segments: ??ST segments: ??Non-specific T waves: ??T waves: inverted ?Inverted: ??III Previous ECG: ??Previous ECG: ??Compared to current ??Date of previous ECG: ??04/03/2016 ??Similarity: ??No change Interpretation: ??Interpretation: No significant change ?? Procedure Note Alton Hernandez MD - 10/10/2019 11:50 PM CST Procedure ECG 12 lead Date/Time: 10/10/2019 11:50 PM Performed by: Alton Hernandez MD Authorized by: Henri Lutz MD Rate: ECG rate: 54 ECG rate assessment: bradycardic Rhythm: Rhythm: sinus bradycardia QRS: QRS axis: Normal Conduction: Conduction: normal ST segments: ST segments: Non-specific T waves: T waves: inverted Inverted: III Previous ECG: Previous ECG: Compared to current Date of previous EC04/03/2016 Similarity: No change Interpretation: Interpretation: No significant change Alton Hernandez MD 10/10/19 2351 Alton Hernandez MD 10/10/19 235 Alton Hernandez MD 10/11/19 0000 us Henri Lutz MD ECG ORDERABLES Edited Result - Final [facility] * XR Chest Pa Lateral 2 Views (10/10/2019 10:46 PM FACILITY MAINTENANCE WORKER) Anatomical Region Laterality Modality Body, Chest N/A Computed Radiogr aphy 10/10/2019 10:5 9 PM FACILITY MAINTENANCE WORKER Impressions 10/11/2019 10:15 AM FACILITY MAINTENANCE WORKER There are small lung volumes with bronchovascular crowding. ??Prominent interstitial markings may reflect a mild pulmonary edema. ??There is no effusion or pneumothorax. ??No consolidations concerning for pneumonia. ??The aortic arch is atherosclerotic. ??The heart size appears within normal limits. Dictated by: Daljit Mcintosh The radiology attending physician has personally reviewed this study, and had reviewed and/or edited this written report and agrees with it. Electronically signed by: Nacho Ashby M.D. Narrative 10/11/2019 10:15 AM FACILITY MAINTENANCE WORKER EXAMINATION: XR CHEST PA LATERAL 2 VIEWS HISTORY: 73-year-old woman who presents from outside hospital. Patient is suffering from vertigo. COMPARISON: 03/31/2016 Procedure Note Nacho Ashby MD - 10/11/2019 EXAMINATION: XR CHEST PA LATERAL 2 VIEWS HISTORY: 73-year-old woman who presents from outside hospital. Patient is suffering from vertigo. COMPARISON: 03/31/2016 IMPRESSION: There are small lung volumes with bronchovascular crowding. Prominent interstitial markings may reflect a mild pulmonary edema. There is no effusion or pneumothorax. No consolidations concerning for pneumonia. The aortic arch is atherosclerotic. The heart size appears within normal limits. Dictated by: Daljit Mcintosh The radiology attending physician has personally reviewed this study, and had reviewed and/or edited this written report and agrees with it. Electronically signed by: Nacho Ashby M.D. us Henri Lutz MD IMG XR PROCEDURE S Final Result * Differential, auto (10/10/2019 10:18 PM FACILITY MAINTENANCE WORKER) Neutrophil abs 3.7 1.7 - 6.5 K/cumm [facility] Imm gran abs 0.0 0.0 - 0.1 K/cumm [facility] Lymphocyte abs 2.6 0.8 - 3.3 K/cumm [facility] Monocyte abs 0.7 0.2 - 0.8 K/cumm [facility] Eosinophil abs 0.1 0.0 - 0.5 K/cumm [facility] Basophil abs 0.0 0.0 - 0.1 K/cumm [facility] Neutrophil pct 52.2 % [facility] Comment: Interpretive Data Percent cell count reference ranges are not reported, since discordance with absolute values may lead to misinterpretation of CBC data. Current Interpretive Data was last revised on 2017. Imm gran pct 0.3 % [facility] Comment: Interpretive Data Percent cell count reference ranges are not reported, since discordance with absolute values may lead to misinterpretation of CBC data. Current Interpretive Data was last revised on 2017. Lymphocyte pct 36.2 % [facility] Comment: Interpretive Data Percent cell count reference ranges are not reported, since discordance with absolute values may lead to misinterpretation of CBC data. Current Interpretive Data was last revised on 2017. Monocyte pct 9.6 % [facility] Comment: Interpretive Data Percent cell count reference ranges are not reported, since discordance with absolute values may lead to misinterpretation of CBC data. Current Interpretive Data was last revised on 2017. Eosinophil pct 1.0 % [facility] Comment: Interpretive Data Percent cell count reference ranges are not reported, since discordance with absolute values may lead to misinterpretation of CBC data. Current Interpretive Data was last revised on 2017. Basophil pct 0.7 % [facility] Comment: Interpretive Data Percent cell count reference ranges are not reported, since discordance with absolute values may lead to misinterpretation of CBC data. Current Interpretive Data was last revised on 2017. Blood specimen (specimen) 10/10/2019 10:18 PM FACILITY MAINTENANCE WORKER 10/10/2019 10:56 PM FACILITY MAINTENANCE WORKER Henri Lutz MD LAB BLOOD ORDERA BLES Final Result Performing Organization Address [facility] Co de Phone Number [facility] Department of [place] [address] * Type and screen (10/10/2019 10:18 PM FACILITY MAINTENANCE WORKER) Mara, indirect Negative [facility] ABO Rh O Positive [facility] Blood specimen (specimen) 10/10/2019 10:18 PM FACILITY MAINTENANCE WORKER 10/10/2019 10:44 PM FACILITY MAINTENANCE WORKER Narrative [facility] - 10/10/2019 11:29 PM FACILITY MAINTENANCE WORKER Has the patient had Daratumumab (Darzalex) in the past 6 months?->Unknown THE COLLECTION LOCATION IS Henri Lutz MD LAB BLOOD BANK T EST ORDERABLES Final Result Performing Organization Address City/[facility]/ZIP Co de Phone Number [facility] of [place] [address] * aPTT (10/10/2019 10:18 PM FACILITY MAINTENANCE WORKER) aPTT 35 25 - 37 sec [facility] Comment: Interpretive data Heparin therapeutic range: 60-90 seconds Range based on correlation with therapeutic heparin activity range of 0.3-0.7 units/ml. Current interpretive data was last revised on 2019. Blood specimen (specimen) 10/10/2019 10:18 PM FACILITY MAINTENANCE WORKER 10/10/2019 10:44 PM FACILITY MAINTENANCE WORKER Narrative [facility] - 10/10/2019 10:50 PM FACILITY MAINTENANCE WORKER [facility] COLLECTION LOCATION IS Henri Lutz MD LAB BLOOD ORDERA BLES Final Result Performing Organization Address [facility] de Phone Number [facility] [place] [address] * Protime-INR (10/10/2019 10:18 PM FACILITY MAINTENANCE WORKER) PT 11.7 8.6 - 13.0 sec [facility] INR 1.1 0.8 - 1.2 [facility] Comment: Interpretive data Oral anticoagulant therapeutic ranges: Venous thromboembolism prophylaxis or treatment: 2.0-3.0 CARDIOLOGY Standard range: 2.0-3.0 High-intensity range: 2.5-3.5 Refer to indication-specific guidelines for appropriate target ranges for prosthetic heart valve replacement. Current interpretive data was last revised on 2019. Blood specimen (specimen) 10/10/2019 10:18 PM FACILITY MAINTENANCE WORKER 10/10/2019 10:44 PM FACILITY MAINTENANCE WORKER Narrative [facility] - 10/10/2019 10:50 PM FACILITY MAINTENANCE WORKER [facility] COLLECTION LOCATION IS Henri Lutz MD LAB BLOOD ORDERA BLES Final Result Performing Organization Address [facility] de Phone Number [facility] [place] [address] * Troponin I (10/10/2019 10:18 PM FACILITY MAINTENANCE WORKER) Troponin I <0.03 0.00 - 0.03 ng/mL [facility] Comment: Interpretive Data: Normal plasma Troponin I [...] for Troponin assay. References: 1. Clin Chem 2013;[id number] 2. Journal of the [place] [employer] 2012;60:1581-98 Current Interpretive Data Last Revised Date: 2018. Blood specimen (specimen) 10/10/2019 10:18 PM FACILITY MAINTENANCE WORKER 10/10/2019 10:49 PM FACILITY MAINTENANCE WORKER Narrative [facility] - 10/10/2019 11:42 PM FACILITY MAINTENANCE WORKER [facility] COLLECTION LOCATION IS us Henri Lutz MD LAB BLOOD ORDERA BLES Edited Result - Final [facility] Department of [place] [address] * Basic metabolic panel (10/10/2019 10:18 PM FACILITY MAINTENANCE WORKER) Sodium 139 135 - 145 mmol/L [facility] Potassium, pl 4.1 3.3 - 4.9 mmol/L [facility] Chloride 104 97 - 110 mmol/L [facility] CO2 22 22 - 32 mmol/L [facility] Anion gap 13 2 - 15 mmol/L [facility] BUN 25 8 - 25 mg/dL [facility] Creatinine 0.87 0.60 - 1.10 mg/dL [facility] Glucose 97 70 - 199 mg/dL [facility] Comment: Interpretive Data Fasting glucose >/= [...] interpretive data was last revised 2017. Calcium 9.8 8.5 - 10.3 mg/dL [facility] Blood specimen (specimen) 10/10/2019 10:18 PM FACILITY MAINTENANCE WORKER 10/10/2019 10:49 PM FACILITY MAINTENANCE WORKER Narrative [facility] - 10/10/2019 11:42 PM FACILITY MAINTENANCE WORKER THE COLLECTION LOCATION IS Henri Lutz MD LAB BLOOD ORDERA BLES Final Result Performing Organization Address [facility] Co de Phone Number [facility] [place] [address] * CBC with auto differential (10/10/2019 10:18 PM FACILITY MAINTENANCE WORKER) [facility] WBC 7.1 3.8 - 9.9 K/cumm [facility] Hgb 14.0 11.9 - 15.5 g/dL [facility] Hct 41.2 35.6 - 45.5 % [facility] Plt 251 150 - 400 K/cumm [facility] MPV 9.4 9.1 - 12.3 fL [facility] RBC 4.48 3.90 - 5.20 M/cumm [facility] MCV 92.0 81.3 - 96.4 fL [facility] MCH 31.3 27.1 - 33.3 pg [facility] MCHC 34.0 32.3 - 35.7 g/dL [facility] RDW CV 13.7 11.1 - 14.9 % [facility] RDW SD 46.2 35.7 - 48.1 fL [facility] NRBC abs 0.00 0.00 - 0.01 K/cumm [facility] Blood specimen (specimen) 10/10/2019 10:18 PM FACILITY MAINTENANCE WORKER 10/10/2019 10:56 PM FACILITY MAINTENANCE WORKER Narrative [facility] - 10/10/2019 10:59 PM FACILITY MAINTENANCE WORKER THE COLLECTION LOCATION IS Henri Lutz MD LAB BLOOD ORDERA BLES Final Result Performing Organization Address City/[facility]/ZIP Co de Phone Number [facility] [place] [address] documented in this encounter Visit Diagnoses Diagnosis Dizziness- Primary Dizziness and giddiness Dizziness Dizziness and giddiness Benign hypertension Essential hypertension, benign documented in this encounter Administered Medications Inactive Administered Medications - up to 3 most recent administrations Medication Order MAR Action Action Date Dose Rate Site acetaminophen (TYLENOL) tablet 1,000 mg 1,000 mg, oral, Every 6 hours PRN, 1st line for pain, Starting on Thu10/11/19 at 0628 Given 10/11/2019 8:39 PM FACILITY MAINTENANCE WORKER 1,000 mg aspirin tablet 325 mg 325 mg, oral, Daily, First dose on Thu10/11/19 at 0900 Given 10/12/2019 7:52 AM FACILITY MAINTENANCE WORKER 325 mg Given 10/11/2019 9:31 AM FACILITY MAINTENANCE WORKER 325 mg atenoloL (TENORMIN) tablet 100 mg 100 mg, oral, Daily, First dose on Thu10/11/19 at 1000 Given 10/11/2019 9:32 AM FACILITY MAINTENANCE WORKER 100 mg atenoloL (TENORMIN) tablet 50 mg 50 mg, oral, Daily, First dose (after last modification) on Thu10/12/19 at 0900 Given 10/12/2019 7:52 AM FACILITY MAINTENANCE WORKER 50 mg atorvastatin (LIPITOR) tablet 80 mg 80 mg, oral, Daily, First dose on Thu10/11/19 at 0900 Given 10/12/2019 7:53 AM FACILITY MAINTENANCE WORKER 80 mg Given 10/11/2019 9:31 AM FACILITY MAINTENANCE WORKER 80 mg buPROPion XL (WELLBUTRIN XL) 24 hour tablet 150 mg 150 mg, oral, Daily, First dose on Thu10/11/19 at 1000, Do not crush, chew, cut, dissolve, open or otherwise manipulate tablet/capsule. Given 10/12/2019 7:52 AM FACILITY MAINTENANCE WORKER 150 mg Given 10/11/2019 9:31 AM FACILITY MAINTENANCE WORKER 150 mg cetirizine (ZyrTEC) tablet 10 mg 10 mg, oral, Daily, First dose on Thu10/11/19 at 1000 Given 10/12/2019 7:52 AM FACILITY MAINTENANCE WORKER 10 mg Given 10/11/2019 9:31 AM FACILITY MAINTENANCE WORKER 10 mg clopidogreL (PLAVIX) tablet 75 mg 75 mg, oral, Daily, First dose on Thu10/11/19 at 0900 Given 10/12/2019 7:52 AM FACILITY MAINTENANCE WORKER 75 mg Given 10/11/2019 9:31 AM FACILITY MAINTENANCE WORKER 75 mg doxycycline monohydrate (ADOXA) tablet 50 mg 50 mg, oral, 2 times daily, First dose on Thu10/11/19 at 0900, Give 2 hrs before or 2 hrs after MVI, antacids, or other products containing sucralfate, magnesium, aluminum, iron, or zinc. May be taken without regard to meals., Indications: Prophylaxis, MedicalIndications:Prophylaxis, Medical Given 10/12/2019 7:52 AM FACILITY MAINTENANCE WORKER 50 m g Given 10/11/2019 8:31 PM FACILITY MAINTENANCE WORKER 50 mg Given 10/11/2019 9:32 AM FACILITY MAINTENANCE WORKER 50 mg heparin 5,000 unit/mL injection 5,000 Units 5,000 Units, subcutaneous, Every 8 hours scheduled, First dose on Thu10/11/19 at 0700, Indications: Deep Vein Thrombosis PreventionIndications:Deep Vein Thrombosis Prevention Given 10/11/2019 8:31 PM FACILITY MAINTENANCE WORKER 5,000 Units Left Lower Abdomen Given 10/11/2019 2:25 PM FACILITY MAINTENANCE WORKER 5,000 Units R ight Lower Abdomen ioversol (OPTIRAY 350) syringe syringe 100 mL 100 mL, intravenous, Once in imaging, contrast, Starting on Thu10/11/19 at 0819, For 1 dose Given 10/11/2019 8:33 AM FACILITY MAINTENANCE WORKER 100 mL lisinopril (PRINIVIL,ZESTRIL) tablet 40 mg 40 mg, oral, Once, On Thu10/10/19 at 2154, For 1 dose Given 10/10/2019 10:03 PM FACILITY MAINTENANCE WORKER 40 mg montelukast (SINGULAIR) tablet 10 mg 10 mg, oral, Nightly, First dose on Thu10/11/19 at 2100 Given 10/11/2019 8:31 PM FACILITY MAINTENANCE WORKER 10 mg sodium chloride 0.9% flush 0.5-20 mL 0.5-20 mL, intra-catheter, Every 8 hours scheduled, First dose on Thu10/11/19 at 0700, Flush volume based on line type and size. , Indications: FlushingIndications:Flushin g Given 10/11/2019 8:32 PM FACILITY MAINTENANCE WORKER 10 mL sodium chloride 0.9% infusion 75 mL/hr, intravenous, Continuous, Starting on Thu10/11/19 at 0730, For 12 hours Rate/Dose Verify 10/11/2019 1:45 PM FACILITY MAINTENANCE WORKER 75 mL/hr 75 mL/hr New Bag 10/11/2019 9:40 AM FACILITY MAINTENANCE WORKER 75 mL/hr 75 mL/hr documented in this encounter Discontinued Medications Medication Sig Discontinue Reason Start Date End Da te ramipril (ALTACE) 10 mg capsule take 1 capsule by oral route every day Reorder 02/26/2015 10/12/2019 atenoloL (TENORMIN) 50 mg tablet Take 1 tablet (50 mg total) by mouth daily 10/12/2019 10/12/2019 ramipril (ALTACE) 10 mg capsule Take 1 capsule (10 mg total) by mouth daily Resume if SBP consistently greater than 180-190. Stop Taking at Discharge 10/12/2019 10/12/2019 atenolol (TENORMIN) 50 mg tablet Take 100 mg by mouth daily. Stop Taking at Discharge 10/12/2019 hydroCHLOROthiazide (HYDRODIURIL) 25 mg tablet TAKE ONE TABLET BY MOUTH DAILY Stop Taking at Discharge 07/01/2019 10/12/2019 documented as of this encounter Active and Recently Administered Medications Times are shown in FACILITY MAINTENANCE WORKER. Scheduled Medication Order 10/10/2019 10/11/2019 10/12/2019 aspirin tablet 325 mg 325 mg, oral, Daily, First dose on Thu10/11/19 at 0900 0931 (Given - Provider: Amy Mancera) 0752 (Given - Provider: Jody De Luna, SENG) atenoloL (TENORMIN) tablet 100 mg (CANCELED) 100 mg, oral, Daily, First dose on Thu10/11/19 at 1000 0932 (Given - Provider: Amy Mancera) atenoloL (TENORMIN) tablet 50 mg 50 mg, oral, Daily, First dose (after last modification) on Thu10/12/19 at 0900 0752 (Given - Provider: Jody De Luna, SENG) atorvastatin (LIPITOR) tablet 80 mg 80 mg, oral, Daily, First dose on Thu10/11/19 at 0900 0931 (Given - Provider: Amy Mancera) 0753 (Given - Provider: Jody De Luna, SENG) buPROPion XL (WELLBUTRIN XL) 24 hour tablet 150 mg 150 mg, oral, Daily, First dose on Thu10/11/19 at 1000, Do not crush, chew, cut, dissolve, open or otherwise manipulate tablet/capsule. 0931 (Given - Provider: Amy Mancera) 075 (Given - Provider: Jody De Luna RN) cetirizine (ZyrTEC) tablet 10 mg 10 mg, oral, Daily, First dose on Thu10/11/19 at 1000 0931 (Given - Provider: Amy Mancera) 075 (Given - Provider: Jody De Luna RN) clopidogreL (PLAVIX) tablet 75 mg 75 mg, oral, Daily, First dose on Thu10/11/19 at 0900 0931 (Given - Provider: Amy Mancera) 751 (Given - Provider: Jody De Luna RN) doxycycline monohydrate (ADOXA) tablet 50 mg 50 mg, oral, 2 times daily, First dose on Thu10/11/19 at 0900, Give 2 hrs before or 2 hrs after MVI, antacids, or other products containing sucralfate, magnesium, aluminum, iron, or zinc. May be taken without regard to meals., Indications: Prophylaxis, Medical 0932 (Given - Provider: Amy Mancera)2030 (Given - Provider: Geetha Kong RN) 075 (Given - Provider: Jody De Luna RN) heparin 5,000 unit/mL injection 5,000 Units 5,000 Units, subcutaneous, Every 8 hours scheduled, First dose on Thu10/11/19 at 0700, Indications: Deep Vein Thrombosis Prevention 09 (Not Given - Provider: Jody De Luna RN - Reason: Order parameters not met - Comment: waiting for next scheduled dose)1425 (Given - Provider: Amy Mancera)2030 (Given - Provider: Geetha Kong RN) 06 (Not Given - Provider: Geetha Kong RN - Reason: Other) lisinopril (PRINIVIL,ZESTRIL) tablet 40 mg (COMPLETED) 40 mg, oral, Once, On Thu10/10/19 at 2154, For 1 dose 2203 (Given - Provider: Missy Kwan RN) montelukast (SINGULAIR) tablet 10 mg 10 mg, oral, Nightly, First dose on Thu10/11/19 at 2100 2030 (Given - Provider: Geetha Kong RN) sodium chloride 0.9% flush 0.5-20 mL 0.5-20 mL, intra-catheter, Every 8 hours scheduled, First dose on Thu10/11/19 at 0700, Flush volume based on line type and size. , Indications: Flushing 0921 (Not Given - Provider: Jody De Luna RN - Reason: Order parameters not met)1503 (Not Given - Provider: Jody De Luna RN - Reason: IV Infusing)203 (Given - Provider: Geetha Kong RN) 0636 (Not Given - Provider: Geetha Kong RN - Reason: Order parameters not met) Continuous Medication Order 10/10/2019 10/11/2019 10/12/2019 sodium chloride 0.9% infusion (CANCELED) 75 mL/hr, intravenous, Continuous, Starting on Thu10/11/19 at 0730, For 12 hours 0940 (New Bag - Provider: Amy Mancera)1109 (Not Given - Provider: Jody De Luna RN - Reason: Order parameters not met - Comment: took other time already running)1345 (Rate/Dose Verify - Provider: Jody De Luna RN)1600 (Stopped - Provider: Jody De Luna RN)1850 (Stopped - Provider: Jody De Luna RN) PRN Medication Order 10/10/2019 10/11/2019 10/12/2019 acetaminophen (TYLENOL) tablet 1,000 mg 1,000 mg, oral, Every 6 hours PRN, 1st line for pain, Starting on Thu10/11/19 at 0628 2038 (Given - Provider: Geetha Kong RN) ioversol (OPTIRAY 350) syringe syringe 100 mL (COMPLETED) 100 mL, intravenous, Once in imaging, contrast, Starting on Thu10/11/19 at 0819, For 1 dose 0833 (Given - Provider: Roopa Antunez, RT) sodium chloride 0.9% flush 0.5-20 mL 0.5-20 mL, intra-catheter, As needed, line care, Starting on Thu10/11/19 at 0628, Flush volume based on line type and size. Flush before and after each use. , Indications: Flushing documented in this encounter Orders Medications Ordered That Chris ht Not Have Been Administered Count Last Ordered Date First Ordered Date acetaminophen (TYLENOL) tablet 1,000 mg 1 0 10/11/2019 sodium chloride 0.9% flush 0.5-20 mL 1 12/2019 Diet Count Last Ordered Date First Orde red Date ADULT DISCHARGE DIET 1 10/12/2019 Nursing Count Last Ordered Date First Orde red Date DISCHARGE ACTIVITY 3 10/12/2019 DISCHARGE CALL PROVIDER 2 10/12/2019 DISCHARGE INSTRUCTIONS 1 10/12/2019 FOLLOW UP WITH ESTABLISHED PROVIDER 2 10/12 WEIGH PATIENT 1 10/11/2019 Consult Count Last Ordered Date First Orde red Date IP CONSULT TO CARDIAC SURGERY 1 10/11/2019 IP CONSULT TO NEUROLOGY 1 10/11/2019 ADT Patient Update Count Last Ordered Date Firs t Ordered Date ED IP DECISION TO ADMIT 1 10/11/[address] PL[address] IN ED OBSERVATION 2 10/11/2019 documented in this encounter Care Teams Car Porter Relationship Specialty Start Date End Date Abbe Chu MD [address] [place] [address] PCP - General 12/05/16 10/13/19 Zachary Giron MD [address] [place] [address] Surgeon Vascular Surgery 10/12/19 documented as of this encounter
--- OUTSIDE RECORDS SUMMARY | 2024-09-08 08:25 | XMS_ITS | Encounter Summary ---
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
--- OUTSIDE RECORDS SUMMARY | 2024-09-08 08:25 | XMS_ITS | Encounter Summary ---
Author Organization [facility] Healthcare Address [address] [place] [address] Care Team Providers Care Shipwright Helper Name Role Phone Abbe Nails MD Primary Care Provider Encounter Details Date Type Department Care Team (Late st Contact Info) Description 10/11/2019 Documentation Vascular Surgery Zachary Giron MD [address] [facility] [id number] [place] [address] Social History Tobacco Use Types Packs/Day Years Used Date Smoking Tobacco: Former Cigarettes Smokeless Tobacco: Never Alcohol Use Standard Drinks/Week Comments Yes 0 (1 standard drink = 0.6 oz pur e alcohol) Comments Unknown Sex and Gender Information Value Date Recorded Sex Assigned at Not on file 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 Saenz on 7500 today. She was admitted following 45 minutes episode of weakness which caused her to lay flat on the floor. There was no loss of consciousness. No particular lateralizing symptoms. Her noted that her heart rate has been in the 40s and she is taking atenolol. 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 There is mild left carotid bifurcation stenosis and moderate to severe right carotid bifurcation stenosis. On examination, she has good office support strength bilaterally. Her facial musculature is symmetric. The right radial pulses significantly diminished, quite difficult to palpate, whereas the left radial pulse is easily palpable. Bruit is present at the base of the neck. Her chest is clear. The cardiac rhythm is regular. Her abdomen is benign with palpable femoral pulses. Her was present for our discussion. I think her symptoms are due to global hypoperfusion. While there may be effects from her medications, I recommended that she pursue revascularization at her 1st available opportunity. She would like to help her get through his radiation therapy before doing so. I cautioned her to contact us at once her common if she experiences further episodes, and that she should simply proceed forward with revascularization at that time. There is always the chance that the revascularization will not relieve her symptoms, and that they may be due to one of the alternative diagnoses offered by the neurology team. 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 I this find it difficult to not believe that arterial insufficiency is the most likely etiology for her symptoms. She understandsand agrees with this plan of care. She will continue her dual anti- platelet therapy and contact me as soon is she is able to contemplate an operative date. TOUT EXAMINER documented in this encounter Plan of Treatment Not on file documented as of this encounter Visit Diagnoses Not on filedocumented in this encounter Care Teams Shipwright Helper Relationship Specialty Start Date End Date Abbe Nails MD [address] [address] PCP - General 12/05/16 10/13/19 documented as of this encounter
--- OUTSIDE RECORDS SUMMARY | 2024-09-08 08:25 | XMS_ITS | Encounter Summary ---
Author Organization [facility] Address [address] [facility] [address] [place] [address] Phone Care Team Providers Care Slitter And Rewinder Name Role Phone Abbe Nails MD Primary Care Provider [phone] Encounter Details Date Type Department Care Team (Late st Contact Info) Description 04/29/2019 Telephone [facility] Surgery [address] [facility] [address] [facility] [address] [place] [address] Zachary Giron MD [address] [facility] [id number] [place] [address] Social History Tobacco Use Types Packs/Day Years Used Date Smoking Tobacco: Former Cigarettes Smokeless Tobacco: Never Alcohol Use Standard Drinks/Week Comments Yes 0 (1 standard drink = 0.6 oz pur e alcohol) Comments Unknown Sex and Gender Information Value Date Recorded Sex Assigned at Not on file 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 Saenz stated she went to the ED after having these symptoms. Will schedule a CT scan with earl with Dr. Giron . She has an earl with Dr. Arredondo on 05/06/19. Pt educated on s/s of stroke. Will schedule earl with CT Scan. * Telephone Encounter - Annemarie Sexton RN - 04/29/2019 3:26 PM CDT ----- Message from Zachary Giron MD sent at 04/28/2019 7:02 PM CDT ----- Italia-see my note regarding need for CT angiogram of arch through brain prior to her visit. Have her go to the nearest emergency room if she experiences more symptoms. Finally, please have her also getscheduled to see Dr. Rianna Arredondo of neurology, who has followed her in the past. documented in this encounter Plan of Treatment Not on file documented as of this encounter Visit Diagnoses Not on filedocumented in this encounter Care Teams Slitter And Rewinder Relationship Specialty Start Date End Date Abbe Nails MD [address] [place] [address] PCP - General 12/05/16 10/13/19 documented as of this encounter
--- OUTSIDE RECORDS SUMMARY | 2024-09-08 08:25 | XMS_ITS | Encounter Summary ---
Author Organization [facility] Address [address] [place] [address] Care Team Providers Care Engagement Manager Name Role Phone Abbe Nails MD Primary Care Provider [phone] Reason for Visit * Reason Comments Coronary Artery Disease 2 mo f/u Encounter Details Date Type Department Care Team (Latest Contact Info) Description 02/18/2017 12:45 PM CDT Office Visit [facility] [address] [facility] [address] [place] [address] Marco A Antoine MD [address] [facility] [address] [place] [address] Stenosis of brachiocephalic artery (CMS/HCC) (Primary Dx); Ischemic embolic stroke (CMS/HCC); Benign hypertension; Bilateral carotid artery disease (CMS/HCC); Mitral valve insufficiency, unspecified etiology; Orthostatic hypotension; Dyslipidemia; Aortic valve regurgitation, unspecified etiology; Dizziness; Vertebrobasilar insufficiency Social History Tobacco Use Types Packs/Day Years Used Date Smoking Tobacco: Former Alcohol Use Standard Drinks/Week Comments Yes 0 (1 standard drink = 0.6 oz pur e alcohol) Comments Unknown Sex and Gender Information Value Date Recorded Sex Assigned at Not on file 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 Gender Identity Not on file Sexual Orientation Not on file documented as of this encounter Last Filed Vital Signs Vital Sign Reading Time Taken Comments Blood Pressure 140/68 02/18/2017 12:47 PM CDT Pulse 65 02/18/2017 12:47 PM CDT Temperature - - Respiratory Rate - - Oxygen Saturation 93% 02/18/2017 12:47 PM CDT Inhaled Oxygen Concentration - - Weight 91.2 kg (201 lb) 02/18/2017 12:47 PM CDT Height 170.2 cm (5' 7 ) 02/18/2017 12:47 PM CDT Body Mass Index 31.48 02/18/2017 12:47 PM CDT documented in this encounter Progress Notes * Marco A Antoine MD - 02/18/2017 12:45 PM CDT [facility] DATE OF VISIT: 02/18/2017 CHIEF COMPLAINT Chief Complaint Patient presents with ??? Coronary Artery Disease 2 mo f/u HPI Suma Saenz is a 71 y.o. 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 07/04/1604/01 MRI no CVA. 04/02 Cerebral angiogram 04/03 new multiple small foci c/w tiny infarcts. Seeing Vasc at [facility]. Passed out after procdure with Dr. Steven [...] 02/18/[address] scan, repeat doppers at [facility]. Notes occ vision problems, occ dizziness improved overall, no CP or SOB. No falls or bleeding. STates she is being told probably will need surgery. MEDICAL HISTORY History reviewed. No pertinent past medical history. Social History Substance Use Topics ??? Smoking status: Former Smoker ??? Smokeless tobacco: Not on file ??? Alcohol use Yes Family History Problem Relation Age of Onset ??? Stroke Father Stroke; ??? Heart disease Mother Heart disease; MEDICATIONS HOME MEDICATIONS : aspirin 325 mg tablet atenolol (TENORMIN) 50 mg tablet atorvastatin (LIPITOR) 80 mg tablet biotin-keratin (BIOTIN PLUS KERATIN) 10,000-100 mcg-mg tablet buPROPion XL (WELLBUTRIN XL) 150 mg 24 hr tablet cetirizine (ZyrTEC) 10 mg tablet clopidogrel (PLAVIX) 75 mg tablet fentaNYL (DURAGESIC) 12 mcg/hr hydroCHLOROthiazide (HYDRODIURIL) 25 mg tablet montelukast (SINGULAIR) 10 mg tablet multivitamin tablet tablet ramipril (ALTACE) 10 mg capsule salmon oil-omega-3 fatty acids (SALMON OIL-1000) 1,000-200 mg capsule senna-docusate (SENNA PLUS) 8.6-50 mg diphenhydrAMINE-acetaminophen (TYLENOL PM EXTRA STRENGTH) 25-500 mg tablet ALLERGIES Allergies Allergen Reactions ??? Naproxen ??? Penicillins ??? Sulfa (Sulfonamide Antibiotics) REVIEW OF SYSTEMS Review of Systems Constitution: Negative for decreased appetite, diaphoresis, fever, weakness, malaise/fatigue and night sweats. HENT: Negative for headaches, hearing loss and nosebleeds. Eyes: Negative for [...] for excessive daytime sleepiness, dizziness, focal weakness, light-headedness and loss of balance. Psychiatric/Behavioral: Negative for altered mental status, depression and memory loss. The patientis not nervous/anxious. Allergic/Immunologic: Negative for environmental allergies. PHYSICAL EXAM Vitals: 02/18/17 1247 BP: 140/68 Pulse: 65 SpO2: 93% Weight: 91.2 kg (201 lb) Height: 170.2 cm (5' 7 ) Body mass index is 31.48 kg/m??. Physical Exam Constitutional: She is oriented [...] OTHER DIAGNOSTIC TESTS Hospital Outpatient Visit on 02/16/2017 Component Date Value Ref Range Status ??? Creatinine oPOC 02/16/2017 0.8 0.6 - 1.1 mg/dL Final Reviewed EKG, Echocardiogram, stress test, and bloodwork/lipids. ASSESSMENT Diagnoses and all orders for this visit: 1. Stenosis of brachiocephalic artery (CMS/HCC) (Primary) 2. Ischemic embolic stroke (CMS/HCC) 3. Benign hypertension 4. Bilateral carotid artery disease (CMS/HCC) 5. Mitral valve insufficiency, unspecified etiology 6. Orthostatic hypotension 7. Dyslipidemia 8. Aortic valve regurgitation, unspecified etiology 9. Dizziness 10. Vertebrobasilar insufficiency PLAN/RECOMMENDATIONS 1. Monitor BP on routine basis. Call with readings. Continue consistent cardiovascular exercise, weight loss, medication compliance, and low-sodium diet. 2. Avoid excessive hypotension given vertebrobasilar insufficiency and uncontrolled hypertension. Patient reasonably stable at this time average heart rate 140s to 150s. Review patient's BP diary. Tolerating current medical therapy. 3. Follow-up as scheduled with Dr. Steven at [facility]. Anticipate surgical correction if brachiocephalic stenosis. 4. Aggressive atherosclerotic risk reduction given carotid arterial stenosis albeit moderate in severity. Remains on dual antiplatelet therapy, rosuvastatin. 5. Caution with ambulation rise slowly from a seated position to avoid risk for falls and injuries.Notify office with any additional questions or concerns. Over 50% of this visit counseling carotid disease, HTN, lipids, medications, lifestyle modification. 25 minutes spent with patient in office. Follow up in the office in 4 months. Thank you for allowing me the privilege of participating in the care this very pleasant patient. Please do not hesitate to contact me with any additional questions or concerns. Karlene Antoine MD, [facility] documented in this encounter Plan of Treatment Not on file documented as of this encounter Visit Diagnoses Diagnosis Stenosis of brachiocephalic artery (CMS/HCC) (HCC)- Primary Stricture of artery Ischemic embolic stroke (HCC) Benign hypertension Essential hypertension, benign Bilateral carotid artery disease (HCC) Unspecified disorders of arteries and arterioles Mitral valve insufficiency, unspecified etiology Orthostatic hypotension Dyslipidemia Other and unspecified hyperlipidemia Aortic valve regurgitation, unspecified etiology Dizziness Dizziness and giddiness 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
== END 2024-09-01 07:42 | disposition home or self-care (01) ==
LOC: CHSIMG 07:42
PROVIDERS: PCP Family Medicine; Visit Provider Family Medicine
DX: M54.30 Sciatica, unspecified side (principal); M43.06 Spondylolysis, lumbar region
CPT/HCPCS: 72148

== ENCOUNTER 2025-01-03 13:39 | Outpatient (CLI) | payer MEDICARE, SELFPAY ==
--- NOTE | ~2025-01-03 | XR_ITS ---
XR abdomen/kub 1V 01/03/2025 14:00 Indication: Kidney stone Procedure: KUB Comparison: 12/13/2019 Findings: There is a punctate calcification overlying the right kidney, consistent with renal stone. Bowel gas pattern nonobstructive. There are surgical changes of the right mid abdomen. Severe lumbar spondylosis. Nonobstructive bowel gas pattern. Impression: 1: Right nephrolithiasis. Reviewed, dictated and finalized at location A. Impression: 1: Right nephrolithiasis.
--- OUTSIDE RECORDS SUMMARY | 2025-01-03 14:53 | XMS_ITS | Clinical Summary ---
Author Organization 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 Gender Identity Not on file Sexual Orientation Not on file Plan of Treatment Health Maintenance Due Date Last Done Comments Hepatitis C 12/26/1965 DTaP, Tdap and Td Vaccines ( 1 - Tdap) 12/26/1966 Pneumococcal Vaccine: 50+ Ye ars (1 of 1 - PCV) 12/26/1997 Zoster Vaccines (1 of 2) 12/26/1997 Annual Medicare Wellness Visit 12/26/2012 Dexa Scan (General) 12/26/2012 RSV Immunization or 60+ Years (1 - 1-dose 75+ series) 12/26/2022 COVID-19 Vaccine ( - 2023-2 5 season) 2024 Meningococcal B Vaccine Aged Out No l onger eligible based on patient's age to complete this topic Meningococcal Vaccine Aged Out No benji phuc eligible based on patient's age to complete this topic RSV Immunizations Under 20 Months Aged Out No longer eligible based on patient's age to complete this topic Insurance [facility]
--- OUTSIDE RECORDS SUMMARY | 2025-01-03 14:53 | XMS_ITS | Referral Summary ---
Author Organization [facility] Address [address] [place] [address] Care Team Providers Care Network Technician Name Role Phone Zachary Giron MD Unavailable [phone] Azar Lara MD Unavailable Perez Alexander DO Primary Care Provider Miguel Ángel Wolfe MD Unavailable Neeru King NP Unavailable [phone] Encounters Date Type Department Care Team Description 12/29/2024 12:25 PM CDT - 12/29/2024 11:59 PM CDT Hospital Encounter [facility] [address] [place] [address] A, [facility] [address] [place] [address] Neeru King NP 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); Ischial bursitis of left side; Encounter for long-term opiate analgesic use Discharge Disposition: Discharge to home or self care 12/16/2024 Telephone [facility] [address] [facility] [address] [place] [address] Briseida Finn MD 11/21/2024 Telephone [facility] [address] [place] [address] [place] [id number] Mary Ireland 11/21/2024 1:00 PM CDT Office Visit [facility] [address] [place] [address] Briseida Finn MD PVC (premature ventricular contraction) (Primary Dx); Mixed hyperlipidemia; Primary hypertension; Bilateral carotid artery stenosis; Status post carotid surgery 10/24/2024 Telephone [facility] [address] [place] [address] [place] [phone] Fabienne Williamson MD 10/13/2024 2:37 PM BARIATRIC SURGEON - 10/13/2024 11:59 PM BARIATRIC SURGEON Hospital Encounter [facility] [address] [facility] A, [address] [place] [address] Miguel Ángel Wolfe MD Ischial bursitis of left side Discharge Disposition: Discharge to home or self care 10/12/2024 12:11 PM BARIATRIC SURGEON - 10/12/2024 11:59 PM BARIATRIC SURGEON Hospital Encounter [facility] [address] [place] [address], [address] [place] [address] Miguel Ángel Wolfe MD Ischial bursitis of left side (Primary Dx); Dorsalgia, unspecified; Other chronic pain; Chronic pain syndrome; Dysfunction of the multifidus muscle of lumbar region; Mechanical low back pain Discharge Disposition: Discharge to home or self care from Last 3 Months Allergies Active Allergy [...] in the evening 0 0 7 Active carvediloL (COREG) 25 mg tablet Take [...] tablet 0 Active allopurinoL (ZYLOPRIM) 100 mg tabletIndicatio ns:prevention of acute gout attack Take 1 tablet [...] (with del rel tablets) 3 Active calcium carbonate-vitam in D3 1,500 mg (600mg elemental) -800 unit per tablet Take 1 tablet by mouth daily Active lisinopriL (PRINIVIL,ZESTR IL) 20 mg tablet Take 1 tablet (20 mg total) by mouth daily 90 tablet 3 5 Active oxyCODONE (ROXICODONE) 5 mg immediate release tabletIndicatio ns:Pain Take 1 tablet (5 mg total) by mouth 3 (three) times a day as needed for pain 90 tablet 5 02/13/20 25 Active oxyCODONE (ROXICODONE) 5 mg immediate release tabletIndicatio ns:Pain Take 1 tablet (5 mg total) by mouth 3 (three) times a day as needed for pain 90 tablet 5 03/14/20 25 Active oxyCODONE (ROXICODONE) 5 mg immediate release tabletIndicatio ns:Pain Take 1 tablet (5 mg total) by mouth 3 (three) times a day as needed for pain 90 tablet 5 04/13/20 25 Active lisinopriL (PRINIVIL,ZESTR IL) 10 mg tablet Take 1 tablet (10 mg total) by mouth daily 30 tablet 11 0 12/17/19 25 Discontinue d(Reorder) oxyCODONE (ROXICODONE) 5 mg immediate release tabletIndicatio ns:Pain Take 1 tablet (5 mg total) by mouth 3 (three) times a day as needed for pain 90 tablet 5 12/15/19 25 oxyCODONE (ROXICODONE) 5 mg immediate release tabletIndicatio ns:Pain Take 1 tablet (5 mg total) by mouth 3 (three) times a day as needed for pain 90 tablet 5 12/30/19 25 Discontinue d(Reorder) Active Problems Problem Noted Date Diagnosed Date PVC (premature ventricular contraction) 08/22/20 24 Occlusion and stenosis of right carotid artery 1 Overview (06/19/2022): Added automatically from request for surgery [id number] Assessment & Plan (07/18/2022 7:47 AM BARIATRIC SURGEON): - OR 07/17 for R CEA -dc OU, Q4 NV checks - SBP goal above 120 - Continue aspirin + statin daily - SARAI removed this morning - OOB this morning, walking - Alva discontinued overnight, passed void trial Mixed hyperlipidemia 08/14/2021 Hematoma of chest wall, right, initial encounter 11/01/2019 Assessment & Plan (11/02/2019 5:03 PM BARIATRIC SURGEON): Could be hematoma vs seroma. No plan [...] above Assessment & Plan (11/01/2019 2:30 AM BARIATRIC SURGEON): Could be hematoma vs seroma. Minimal pain. [...] 11/01/2019 Assessment & Plan (11/02/2019 5:00 PM BARIATRIC SURGEON): Pt with foul smelling urine upon admission [...] days. Assessment & Plan (11/02/2019 5:08 AM BARIATRIC SURGEON): Pt with foul smelling urine on admit. Clean catch UA positive sent this am and positive ( present on admission) pt endorsing frequency and foul smelling urine that developed over the weekend. Ceftriaxone started 11/01 - f/u urine culture and determine duration of treatment ( pt has listed allergies to sulfa/pcn) Assessment & Plan (11/01/2019 8:06 PM BARIATRIC SURGEON): Pt with foul smelling urine on admit. Clean catch UA positive sent this am and positive ( present on admission) pt endorsing frequency and foul smelling urine that developed over the weekend. Ceftriaxone started 11/01 - f/u urine culture and determine duration of treatment ( pt has listed allergies to sulfa/pcn) Assessment & Plan (11/01/2019 2:05 AM BARIATRIC SURGEON): Pt reports burning with urination and RN reports odor associate with urine. Possible UTI. -obtain clean catch urine sample for UA Acute pain 11/01/2019 Assessment & Plan (11/02/2019 3:31 PM BARIATRIC SURGEON): Patient complaining of right scapular pain since [...] pain Assessment & Plan (11/01/2019 8:07 PM BARIATRIC SURGEON): Pt reports mild right scapular pain since [...] pain Assessment & Plan (11/01/2019 2:11 AM BARIATRIC SURGEON): Pt reports mild right scapular pain since [...] and aorta to right axillary artery graft (2/14). Neurology consulted during ED visit and recommended b/p control since pt was hypertensive on arrival with sbp up to 180's (baseline 150-160 per patient) Assessment & Plan (11/02/2019 4:49 PM BARIATRIC SURGEON): Neurology signed off and recommends BP control [...] stenosis Assessment & Plan (11/02/2019 5:07 AM BARIATRIC SURGEON): Neurology signed off and recommends b/p control [...] well. Assessment & Plan (11/01/2019 7:56 PM BARIATRIC SURGEON): Neurology signed off and recommends b/p control [...] 10/23/2019 Assessment & Plan (10/24/2019 11:45 PM BARIATRIC SURGEON): - S/P 2/14 aorta -> R axillary bypass and asc aorta + R + L common carotid bypass - Continue to monitor closely for signs of cerebral hyperperfusion syndrome - MAP >65 - No signs of headache or focal neurologic deficits Assessment & Plan (10/23/2019 8:06 PM BARIATRIC SURGEON): - S/P 2/14 aorta -> R axillary bypass and asc aorta + R + L common carotid bypass - Continue to monitor closely for signs of cerebral hyperperfusion syndrome - SBP <120 and MAP >65 - No signs of headache or focal neurologic deficits Chronic back pain complicated by acute surgical pain 10/21/2019 Assessment & Plan (10/25/2019 12:01 AM BARIATRIC SURGEON): - APAP sched, transitioned to PO oxy 10/23, dronabinol 2.5 BID AC - Patient uses THC at home for pain, dronabinol significantly improved symptoms. - Lidocaine drip discontinued 10/24 Assessment & Plan (10/23/2019 8:04 PM BARIATRIC SURGEON): - APAP sched, transitioned to PO oxy 10/23, dronabinol 2.5 BID AC, lido gtt - Patient uses THC at home for pain, dronabinol significantly improved symptoms. Assessment & Plan (10/22/2019 8:14 PM BARIATRIC SURGEON): - APAP sched, SAFE TECHNICIAN 0.2 q10m, lido gtt Assessment & Plan (10/22/2019 12:48 AM BARIATRIC SURGEON): - APAP sched, 10 oxy q3h, dilaudid breakthrough pain, lido gtt Assessment & Plan (10/21/2019 8:47 PM BARIATRIC SURGEON): Dilaudid PRN while intubated, will add scheduled acetaminophen and PRN oxycodone once extubated. 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 Assessment & Plan (10/11/2019 10:08 AM BARIATRIC SURGEON): - Continue current regimen with atenolol - [...] 11/01/2019 Assessment & Plan (10/25/2019 12:02 AM BARIATRIC SURGEON): - Extubated on 10/21, transitioned to NC - Placed on Optiflow 10/23 (40L and 40% FiO2), goal SpO2 >92, weaned to NC on 10/24 Continue mobility and PAP treatments as necessary Assessment & Plan (10/23/2019 8:07 PM BARIATRIC SURGEON): - Extubated on 10/21, transitioned to NC - Placed on Optiflow 10/23 (40L and 40% FiO2), goal SpO2 >92 Syncope and collapse 04/05/2019 020 Labile hypertension 10/17/2016 08/22/20 24 Overview (12/17/2017): Description: elevated due to permissive hypertension Assessment & Plan (10/25/2019 12:01 AM BARIATRIC SURGEON): Currently hypotensive but initially hypertensive in OR. Will likely need restarting of his anti-hypertensives once acute post surgical hemodynamics stabilize. - While standing 10/22 afternoon, became hpotensive -> started on levo transiently, sat down and off pressors and back on nicardipine - 10/23 Increased coreg to 25 BID for SBP <120 Assessment & Plan (10/23/2019 8:04 PM BARIATRIC SURGEON): Currently hypotensive but initially hypertensive in OR. [...] <120 Assessment & Plan (10/22/2019 8:13 PM BARIATRIC SURGEON): Currently hypotensive but initially hypertensive in OR. Will likely need restarting of his anti-hypertensives once acute post surgical hemodynamics stabilize. - While standing 10/22 afternoon, became hpotensive -> started on levo transiently, sat down and off pressors and back on nicardipine - Currently on nicardipine gtt @ 0.5 on 10/22 P.M. for SBP <120 Assessment & Plan (10/22/2019 12:52 AM BARIATRIC SURGEON): Currently hypotensive but initially hypertensive in OR. Will likely need restarting of his anti-hypertensives once acute post surgical hemodynamics stabilize. - Currently on nicardipine gtt @ 2.5 on 10/22 A.M. for SBP <120 Assessment & Plan (10/21/2019 8:49 PM BARIATRIC SURGEON): Currently hypotensive but initially hypertensive in OR. Will likely need restarting of his anti-hypertensives once acute post surgical hemodynamics stabilize. Mitral valve insufficiency 04/23/2015 1 10/23/2023 Overview (12/12/2016): Mitral regurgitation Heart murmur 02/26/2015 08/22/2024 Overview (12/11/2016): Murmur, cardiac Dyslipidemia 02/26/2015 08/14/2021 Overview (12/11/2016): Dyslipidemia Immunizations Immunization Administration Dates Next Due Influenza, Unspecified 06/07/2019 [...] more drinks on one occasion? Never 07/03/2022 PHQ-2 Answer Date Recorded PHQ-2 Total Score (If total score is 3 or more points, staff should administer the PHQ-9) 3 12/29/2024 PHQ-9 Answer Date Recorded PHQ-9 Total Score 10 12/29/2024 Comments No Sex and Gender Information Value Date Recorded Sex Assigned at Not on file Legal Sex Female 3:40 AM BARIATRIC SURGEON Gender Identity Not on file Sexual Orientation Not on file Last Filed Vital Signs Vital Sign Reading Time Taken Comments Blood Pressure 164/62 12/29/2024 12:57 PM CDT Pulse 76 12/29/2024 12:57 PM CDT Temperature 35.7 C (96.3 F) 10/13/2024 2:59 PM BARIATRIC SURGEON Respiratory Rate 18 12/29/2024 12:57 PM CDT Oxygen Saturation 98% 12/29/2024 12:57 PM CDT Inhaled Oxygen Concentration - - Weight 80.4 kg (177 lb 4.8 oz) 11/21/2024 12:52 PM CDT Height 170.2 cm (5' 7 ) 11/21/2024 12:52 PM CDT Body Mass Index 27.77 11/21/2024 12:52 PM CDT Plan of Treatment Not on file Medical Devices Implanted Type Area Wireless Cellular Technician Device Identifier Shelf Expiration Date Model / Serial / Lot Loaiza AkesoGenX Juan Vascu-Guard 8x.8cm Peripheral Patch Vascular Bovine Pericardium [id number] - [id number] Implanted:Qty: 1 on 07/17/2022 by Zachary Giron MD at [facility] Endoprosthesi s Right: Carotid Loaiza Ballparc [id number] 03/13/2027 [id number]-[id number] / / [id number] [employer] [id number] 6mm 80cm 60cm Stretch Removable Ring Line Peripheral Thin Wall - [id number] - [id number] Implanted:Qty: 1 on 10/21/2019 by Zachary Giron MD at [facility] Graft Right: Subclavian Wl [employer] [id number] 02/23/2024 [id number] / [id number] / EarDish [id number] Hemashield [place] 8mm 30cm Woven Smooth Needle Passage Suture - [id number] - [id number] Implanted:Qty: 1 on 10/21/2019 by Azar Lara MD at [facility] Graft N/A: Subclavian [id number] 07/07/2024 [id number] / [id number] / [id number] Terumo Cardio Vascular 131740x Gelsoft Plus Vascutek 14/7mm 45cm Main Leg Bore Reduced - [id number] - [id number] Implanted:Qty: 1 on 10/21/2019 by Azar Lara MD at [facility] Graft N/A: Subclavian Terumo Cardio Vascular [id number] 04/06/2022 [id number] / [id number] / [id number] Pomogatel [id number] Device Closure Angio-Seal Vip Bondek-Plus Polyglyd L70 Cm Od6 Fr Odsec.035 In Vascular - [id number] - [id number] Implanted:Qty: 1 on 10/18/2019 by Jd Sinha MD at [facility] Can[employer]g [employer] 05/07/2020 [id number] / [id number] / Explanted Type Area Wireless Cellular Technician Device Identifier Shelf Expiration Date Model / Serial / Lot Integra Lifesciences Juan [id number] Sundt 4-5mm 5.5-6.3mm 2.2-3.1mm 30cm Temporary External Loop Soft - [id number] Explanted:Qty: 1 on 07/17/2022 by Zachary Giron MD at [facility] Endoprosthesis Right: Carotid Integra [employer] Juan [id number] 11/04/2026 [id number] / / [id number] Procedures Procedure Name Priority Date/Time Associated Diagnosis Comments POCT LIPID PANEL Routine 11/21/2024 3:17 PM CDT Mixed hyperlipidemia PAIN MGMT IMAGING SHOULDER, HIP, KNEE JOINT/BURSA INJ LEFT Schedule Routine, Read Routine (OP Routine) 10/13/2024 3:35 PM BARIATRIC SURGEON Ischial bursitis of left side from Last 3 Months Results * POCT lipid panel (11/21/2024 3:17 PM CDT) Cholesterol, POC 129 mg/dL Comment:GLU = 98 HDL, POC 80 mg/dL Triglycerides, POC 240 mg/dL LDL Cholesterol POC 1.0 mg/dL Chol/HDL Ratio, POC 0.0 Non-HDL Cholesterol, POC 49 mg/dL Cholesterol Total, POC 129 mg/dL Capillary blood 11/21/2024 3 :17 PM CDT us Briseida Finn MD POINT OF CARE TEST O RDERABLES Final Result * Imaging Shoulder, Hip, Knee Joint/Bursa INJ Left () (10/13/2024 3:35 PM BARIATRIC SURGEON) Narrative [facility] - 10/13/2024 3:37 PM BARIATRIC SURGEON The images from this study are not interpreted by Radiology. Please refer to the physician's procedure / OR operative note. us Miguel Ángel Wolfe MD IMG PAIN MGMT PROCEDURE S Final Result Performing Organization Address City/State/[facility] Co de Phone Number [facility] from Last 3 Months Insurance [facility] MED[facility] ADVANTAGE [facility] Address: [address] [address] [facility] Address: [address] [place], [place] [id number] [facility] Address: [address] [place] [address] Advance Directives For more information, please contact: [phone] Documents on File Type Date Recorded Patient Hospital Aide Expl anation ADVANCE DIRECTIVE 10/18/2019 3:54 PM POWER OF AD TERMINAL MAKEUP OPERATOR-MEDICAL * Full Code (Latest Code Status on [...] 10:33 PM 10/21/2019 5:25 PM Care Teams Network Technician Relationship Specialty Start Date End Date Perez Alexander DO [address] [place] [address] PCP - General Family Medicine 07/01/22 Zachary Giron MD Surgeon Vascular Surgery 10/12/19 Azar Lara MD Surgeon Cardiothoracic Surgery 10/27/19 Miguel Ángel Wolfe MD [address] [place] [address] Consulting Physician Anesthesiology 12/29/24 Neeru King NP [address] [place] [address] [place] [address] Nurse Practitioner Family Medicine 12/29/24
--- OUTSIDE RECORDS SUMMARY | 2025-01-03 14:53 | XMS_ITS | Encounter Summary ---
Author Organization [facility] Address [address] [place] [address] Phone Care Team Providers Care Guest Relations Receptionist Name Role Phone Abbe Nails MD Primary Care Provider Zachary Giron MD Unavailable Abbe Nails MD Primary Care Provider [phone] Azar Lara MD Unavailable Abbe Nails MD Primary Care Provider [phone] Perez Alexander DO Primary Care Provider Miguel Ángel Wolfe MD Unavailable [phone] Neeru King NP Unavailable [phone] Encounter Details Date Type Department Care Team [...] on file Legal Sex Female 3:40 AM MAIL SORTER Gender Identity Not on file Sexual Orientation [...] on filedocumented in this encounter Care Teams Guest Relations Receptionist Relationship Specialty Start Date End Date Abbe Nails MD [address] [place] [address] PCP - General 12/05/16 10/13/19 Abbe Nails MD [address] [place] [address] PCP - General 10/17/19 11/01/19 Abbe Nails MD [address] [place] [address] PCP - General 11/03/19 06/30/22 Perez Alexander DO [address] [place] [address] PCP - General Family Medicine 07/01/22 Zachary Giron MD [address] [place] [address] Surgeon Vascular Surgery 10/12/19 Azar Lara MD [address] [place] [address] Surgeon Cardiothoracic Surgery 10/27/19 Miguel Ángel Wolfe MD [address] [place] [address] [place] [address] Consulting Physician Anesthesiology 12/29/24 Neeru King NP [address] [place] [address] Nurse Practitioner Family Medicine 12/29/24 documented as of this encounter
--- OUTSIDE RECORDS SUMMARY | 2025-01-03 14:53 | XMS_ITS | Clinical Summary ---
Author Organization [facility] Address [address] [place] [address] Care Team Providers Care Floor Person Name Role Phone Zachary Giron MD Unavailable Azar Lara MD Unavailable Perez Alexander DO Primary Care Provider Miguel Ángel Wolfe MD Unavailable [phone] Neeru King NP Unavailable [phone] Allergies Active Allergy Reactions Criticality Noted Date [...] by mouth daily 30 tablet 11 0 Active allopurinoL (ZYLOPRIM) 100 mg tabletIndicatio [...] (06/19/2022): Added automatically from request for surgery [id number] Assessment & Plan (07/18/2022 7:47 AM [facility]PER[facility]MENT): - OR 07/17 for R CEA -dc OU, Q4 NV checks - SBP goal above 120 - Continue aspirin + statin daily - SARAI removed this morning - OOB this morning, walking - Alva discontinued overnight, passed void trial Mixed hyperlipidemia 08/14/2021 Hematoma of chest wall, right, initial encounter 11/01/2019 Assessment & Plan (11/02/2019 5:03 PM [facility] [employer] [facility]MENT): Could be hematoma vs seroma. No plan [...] above Assessment & Plan (11/01/2019 2:30 AM SUPER[facility] [facility] DEPARTMENT): Could be hematoma vs seroma. Minimal pain. [...] 11/01/2019 Assessment & Plan (11/02/2019 5:00 PM [facility] DEPARTMENT): Pt with foul smelling urine upon admission [...] days. Assessment & Plan (11/02/2019 5:08 AM [facility] [employer] [facility] DEPARTMENT): Pt with foul smelling urine on admit. Clean catch UA positive sent this am and positive ( present on admission) pt endorsing frequency and foul smelling urine that developed over the weekend. Ceftriaxone started 11/01 - f/u urine culture and determine duration of treatment ( pt has listed allergies to sulfa/pcn) Assessment & Plan (11/01/2019 8:06 PM [facility]MENT): Pt with foul smelling urine on admit. Clean catch UA positive sent this am and positive ( present on admission) pt endorsing frequency and foul smelling urine that developed over the weekend. Ceftriaxone started 11/01 - f/u urine culture and determine duration of treatment ( pt has listed allergies to sulfa/pcn) Assessment & Plan (11/01/2019 2:05 AM [facility] DEPARTMENT): Pt reports burning with urination and RN reports odor associate with urine. Possible UTI. -obtain clean catch urine sample for UA Acute pain 11/01/2019 Assessment & Plan (11/02/2019 3:31 PM [facility]MENT): Patient complaining of right scapular pain since [...] pain Assessment & Plan (11/01/2019 8:07 PM [facility]MENT): Pt reports mild right scapular pain since [...] pain Assessment & Plan (11/01/2019 2:11 AM [facility]PER[facility] DEPARTMENT): Pt reports mild right scapular pain since [...] patient) Assessment & Plan (11/02/2019 4:49 PM [facility]PARTMENT): Neurology signed off and recommends BP control [...] stenosis Assessment & Plan (11/02/2019 5:07 AM SUPER[facility] DEPARTMENT): Neurology signed off and recommends b/p control [...] well. Assessment & Plan (11/01/2019 7:56 PM [facility]PARTMENT): Neurology signed off and recommends b/p control [...] 10/23/2019 Assessment & Plan (10/24/2019 11:45 PM [facility]MENT): - S/P 2/14 aorta -> R axillary bypass and asc aorta + R + L common carotid bypass - Continue to monitor closely for signs of cerebral hyperperfusion syndrome - MAP >65 - No signs of headache or focal neurologic deficits Assessment & Plan (10/23/2019 8:06 PM [facility]): - S/P 2/14 aorta -> R axillary bypass and asc aorta + R + L common carotid bypass - Continue to monitor closely for signs of cerebral hyperperfusion syndrome - SBP <120 and MAP >65 - No signs of headache or focal neurologic deficits Chronic back pain complicated by acute surgical pain 10/21/2019 Assessment & Plan (10/25/2019 12:01 AM SUPER[facility] DEPARTMENT): - APAP sched, transitioned to PO oxy 10/23, dronabinol 2.5 BID AC - Patient uses THC at home for pain, dronabinol significantly improved symptoms. - Lidocaine drip discontinued 10/24 Assessment & Plan (10/23/2019 8:04 PM [facility]PER[facility] DEPARTMENT): - APAP sched, transitioned to PO oxy /16, dronabinol 2.5 BID AC, lido gtt - Patient uses THC at home for pain, dronabinol significantly improved symptoms. Assessment & Plan (10/22/2019 8:14 PM [facility]PARTMENT): - APAP sched, RN REVIEW 0.2 q10m, lido gtt Assessment & Plan (10/22/2019 12:48 AM [facility]PARTMENT): - APAP sched, 10 oxy q3h, dilaudid breakthrough pain, lido gtt Assessment & Plan (10/21/2019 8:47 PM [facility] DEPARTMENT): Dilaudid PRN while intubated, will add scheduled acetaminophen and PRN oxycodone once extubated. Acute blood loss anemia 10/21/2019 Assessment & Plan (10/25/2019 12:02 AM [facility]): - Hgb 7.1 -> 10.3 after 1U PRBC 10/21 - hgb stable since Assessment & Plan (10/23/2019 8:05 PM [facility]): - Hgb 7.1 -> 10.3 after 1U PRBC 10/21 - hgb stable on 10/22 Assessment & Plan (10/22/2019 8:14 PM [facility]MENT): - Hgb 7.1 -> 10.3 after 1U PRBC 10/21 - hgb stable on 10/22 Assessment & Plan (10/21/2019 11:05 PM [facility]MENT): - Hgb 7.1 -> 10.3 after 1U [...] Dizziness Assessment & Plan (10/11/2019 10:08 AM [facility]): - CTA head and neck with arch [...] benign Assessment & Plan (07/18/2022 7:50 AM SUPER[facility]): Home regimen: lisinopril 10mg, coreg 25mg BID, amlodipine 10mg, HCTZ 25mg every day -restarted all meds except HCTZ, can restart at dc Assessment & Plan (11/02/2019 5:00 PM [facility]PARTMENT): SBP goal < 130 in setting of [...] line Assessment & Plan (11/01/2019 7:59 PM [facility] DEPARTMENT): SBP goal < 130 in setting of [...] . Assessment & Plan (10/11/2019 10:08 AM [facility] DEPARTMENT): - Continue current regimen with atenolol - [...] 11/01/2019 Assessment & Plan (10/25/2019 12:02 AM [facility]MENT): - Extubated on 10/21, transitioned to NC - Placed on Optiflow 10/23 (40L and 40% FiO2), goal SpO2 >92, weaned to NC on 10/24 Continue mobility and PAP treatments as necessary Assessment & Plan (10/23/2019 8:07 PM [facility]): - Extubated on 10/21, transitioned to NC - Placed on Optiflow 10/23 (40L and 40% FiO2), goal SpO2 >92 Syncope and collapse 04/05/2019 020 Labile hypertension 10/17/2016 08/22/20 24 Overview (12/17/2017): Description: elevated due to permissive hypertension Assessment & Plan (10/25/2019 12:01 AM [facility]PARTMENT): Currently hypotensive but initially hypertensive in OR. Will likely need restarting of his anti-hypertensives once acute post surgical hemodynamics stabilize. - While standing 10/22 afternoon, became hpotensive -> started on levo transiently, sat down and off pressors and back on nicardipine - 10/23 Increased coreg to 25 BID for SBP <120 Assessment & Plan (10/23/2019 8:04 PM [facility] DEPARTMENT): Currently hypotensive but initially hypertensive in OR. [...] <120 Assessment & Plan (10/22/2019 8:13 PM [facility]PER[facility] DEPARTMENT): Currently hypotensive but initially hypertensive in OR. Will likely need restarting of his anti-hypertensives once acute post surgical hemodynamics stabilize. - While standing 10/22 afternoon, became hpotensive -> started on levo transiently, sat down and off pressors and back on nicardipine - Currently on nicardipine gtt @ 0.5 on 10/22 P.M. for SBP <120 Assessment & Plan (10/22/2019 12:52 AM [facility]PER[facility] DEPARTMENT): Currently hypotensive but initially hypertensive in OR. Will likely need restarting of his anti-hypertensives once acute post surgical hemodynamics stabilize. - Currently on nicardipine gtt @ 2.5 on 15 A.M. for SBP <120 Assessment & Plan (10/21/2019 8:49 PM [facility] DEPARTMENT): Currently hypotensive but initially hypertensive in OR. Will likely need restarting of his anti-hypertensives once acute post surgical hemodynamics stabilize. 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 [address] [place] [address] Briseida Finn MD 11/21/2024 1:00 PM CDT Office Visit [facility] [address] [place] [address] Briseida Finn MD PVC (premature ventricular contraction) (Primary Dx); Mixed hyperlipidemia; Primary hypertension; Bilateral carotid artery stenosis; Status post carotid surgery 11/21/2024 Telephone [facility] [address] [place] [address] [place] [phone] Mary Ireland 10/24/2024 Telephone [facility] [address] [place] [address] [place] [phone] Fabienne Williamson MD 10/13/2024 2:37 PM [facility] - 10/13/2024 11:59 PM [facility] Hospital Encounter [facility] [address] [facility] [address] [place] [address] Miguel Ángel Wolfe MD Ischial bursitis of left side Discharge Disposition: Discharge to home or self care 10/12/2024 12:11 PM [facility] - 10/12/2024 11:59 PM [facility] Hospital Encounter [facility] [address] [facility] [address] [place] [address] Miguel Ángel Wolfe MD Ischial bursitis of left side (Primary Dx); Dorsalgia, unspecified; Other chronic pain; Chronic pain syndrome; Dysfunction of the multifidus muscle of lumbar region; Mechanical low back pain Discharge Disposition: Discharge to home or self care from Last 3 Months Immunizations Immunization Administration Dates Next Due Influenza, [...] Dz Maternal Grandmother (Age 48 y/o ) [place] Mother (Age 88) CAD, s/p M I, [...] PHQ-9 Answer Date Recorded PHQ-9 Total Score 12/29/2024 Comments No Sex and Gender Information Value Date Recorded Sex Assigned at Not on file Legal Sex Female 3:40 AM [facility] Gender Identity Not on file Sexual Orientation Not on file Obstetrics History Comments Post menopause Last Filed Vital Signs Vital Sign Reading Time Taken Comments Blood Pressure 164/62 12/29/2024 12:57 PM CDT Pulse 76 12/29/2024 12:57 PM CDT Temperature 35.7 C (96.3 F) 10/13/2024 2:59 PM [facility] Respiratory Rate 18 12/29/2024 12:57 PM CDT Oxygen Saturation 98% 12/29/2024 12:57 PM CDT Inhaled Oxygen Concentration - - Weight 80.4 kg (177 lb 4.8 oz) 11/21/2024 12:52 PM CDT Height 170.2 cm (5' 7 ) 11/21/2024 12:52 PM CDT Body Mass Index 27.77 11/21/2024 12:52 PM CDT Plan of Treatment Health Maintenance Due Date Last Done Comments Hepatitis C Screening 1945 Osteoporosis Screening-Bone Density Scan 1945 DTaP/Tdap/Td Vaccine (1 - Tdap) 12/26/1958 Hepatitis B Screening 12/26/1965 Pneumococcal vaccine 65+ (1 of 1 - PCV) 12/26/1997 Well Visit 65+ 12/26/2012 Zoster Vaccine (2 of 3) 07/02/2014 05/07/2014 Fall Risk Assessment 07/18/2023 07/18/2022 Covid-19 Vaccine (2023-2 5 season) 2024 01/07/2022, 05/01/2021, 10/30/2020, Additional history exists Influenza Vaccine (Season Ended) 2025 07/02/2021, 06/11/2020, 06/07/2019, Additional history exists Depression Screening 12/29/2025 12/29/2024, 12/29/2024, 10/12/2024, Additional history exists Medical Devices Implanted Type Area Preschool Teacher Aide Device Identifier Shelf Expiration Date Model / Serial / Lot Loaiza Procura Vascu-Guard 8x.8cm Peripheral Patch Vascular Bovine Pericardium [id number] - [id number] Implanted:Qty: 1 on 07/17/2022 by Zachary Giron MD at [facility] Endoprosthesi s Right: Carotid [employer] [id number] 03/13/2027 [id number]-[id number] / / [id number] [employer] [id number] 6mm 80cm 60cm Stretch Removable Ring Line Peripheral Thin Wall - [id number] - [id number] Implanted:Qty: 1 on 10/21/2019 by Zachary Giron MD at [facility] Graft Right: Subclavian [employer] [id number] 02/23/2024 [id number] / [id number] / [employer] [id number] Hemashield [place] 8mm 30cm Woven Smooth Needle Passage Suture - [id number] - [id number] Implanted:Qty: 1 on 10/21/2019 by Azar Lara MD at [facility] Graft N/A: Subclavian [id number] 07/07/2024 [id number] / [id number] / [id number] Terumo Cardio Vascular [id number] Gelsoft Plus Vascutek 14/7mm 45cm Main Leg Bore Reduced - [id number] - [id number] Implanted:Qty: 1 on 10/21/2019 by Azar Lara MD at [facility] Graft N/A: Subclavian Terumo Cardio Vascular [id number] 04/06/2022 [id number] / [id number] / [id number] Escapio [id number] Device Closure Angio-Seal Vip Bondek-Plus Polyglyd L70 Cm Od6 Fr Odsec.035 In Vascular - [id number] - [id number] Implanted:Qty: 1 on 10/18/2019 by Jd Sinha MD at [facility] Daig Juan[employer] 05/07/2020 [id number] / [id number] / Explanted Type Area Preschool Teacher Aide Device Identifier Shelf Expiration Date Model / Serial / Lot Integra [employer] Juan [id number] Sundt 4-5mm 5.5-6.3mm 2.2-3.1mm 30cm Temporary External Loop Soft - [id number] Explanted:Qty: 1 on 07/17/2022 by Zachary Giron MD at [facility] Endoprosthesis Right: Carotid Integra [employer] Juan [id number] 11/04/2026 [id number] / / [id number] Procedures Procedure Name Priority Date/Time Associated Diagnosis Comments POCT LIPID PANEL Routine 11/21/2024 3:17 PM CDT Mixed hyperlipidemia PAIN MGMT IMAGING SHOULDER, HIP, KNEE JOINT/BURSA INJ LEFT Schedule Routine, Read Routine (OP Routine) 10/13/2024 3:35 PM [facility] Ischial bursitis of left side from Last [...] Joint/Bursa INJ Left () (10/13/2024 3:35 PM [facility]) Narrative [facility] - 10/13/2024 3:37 PM [facility] The images from this study are not interpreted by Radiology. Please refer to the physician's procedure / OR operative note. 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
== END 2025-01-03 13:40 | disposition home or self-care (01) ==
PROVIDERS: PCP Family Medicine; Visit Provider Physician Assistant
DX: N20.0 Calculus of kidney (principal)
CPT/HCPCS: 74018